=== PATIENT | female | born 1935 | race Hispanic/Latino ===

== ENCOUNTER 2017-03-26 12:42 | Inpatient (IN) | payer MEDICAID, MEDICARE ==
--- NOTE | 2017-03-26 13:06 | ED PDOC ---
Arrival/HPI - General Time Seen by Provider: 03/26/17 12:52 Historian: Patient - History of Present Illness Narrative History of Present Illness (Text): 03/26/17 12:54 An 82 year old female, whose past medical history includes pulmonary hypertension, CAD with stents, COPD and chronic back pain, presents to the emergency department complaining of lethargy and shortness of breath today. Patient denies any relieving or exacerbating factors. Patient denies any nausea , vomiting, diarrhea, abdominal pain, chest pain or any other complaints. Patient uses 3 L of oxygen at home. Time/Duration: Other (Today) Symptom Course: Unchanged Quality: Other Context: Home Past Medical History - Provider Review Nursing Documentation Reviewed: Yes - Infectious Disease Hx of Infectious Diseases: None - Tetanus Immunization Tetanus Immunization: Unknown - Cardiac Hx TN: Yes - Pulmonary Hx Chronic Obstructive Pulmonary Disease (COPD): Yes - Neurological Hx Neurological Disorder: Yes Hx Dizziness: Yes - HEENT Hx HEENT Disorder: Yes Hx Cataracts: Yes - Renal Hx Renal Disorder: No - Endocrine/Metabolic Hx Endocrine Disorders: No - Hematological/Oncological Hx Blood Disorders: Yes Hx Anemia: Yes - Integumentary Hx Dermatological Disorder: No - Musculoskeletal/Rheumatological Hx Arthritis: Yes - Gastrointestinal Hx Gastrointestinal Disorders: Yes Hx Diverticulitis: Yes - Genitourinary/Gynecological Hx Genitourinary Disorders: Yes Hx Incontinence: Yes - Psychiatric Hx Psychophysiologic Disorder: No Hx Anxiety: No Hx Emotional Abuse: No Hx Physical Abuse: No Hx Substance Use: No - Surgical History Hx Appendectomy: Yes Hx Cardiac Catheterization: Yes Hx Cholecystectomy: Yes Hx Coronary Stent: Yes Other/Comment: Cyst removal in ovary. Inguinal Hernia Repair. 2 inches of intestine removed - Anesthesia Hx Anesthesia Reactions: No - Suicidal Assessment Feels Threatened In Home Enviroment: No Family/Social History - Physician Review Nursing Documentation Reviewed: Yes Family/Social History: No Known Family HX Smoking Status: Current Some Days Smoker Hx Alcohol Use: No Hx Substance Use: No Hx Substance Use Treatment: No Allergies/Home Meds Allergies/Adverse Reactions: Allergies codeine Adverse Reaction (Verified 03/26/17 17:35) ITCHING hydromorphone HCl [From Dilaudid] Adverse Reaction (Verified 03/26/17 17:35) ITCHING morphine Adverse Reaction (Verified 03/26/17 17:35) ITCHING MYOCINS Adverse Reaction (Uncoded 03/26/17 17:35) ITCHING Home Medications: Home Meds Medication Instructions Recorded Confirmed Atorvastatin Calcium [Lipitor] 10 mg PO DAILY 02/09/12 03/26/17 Clopidogrel [Plavix] 75 mg PO DAILY 02/09/12 03/26/17 Ranolazine [Ranexa] 500 mg PO BID 01/21/15 03/26/17 Aspirin [Aspirin EC] 81 mg PO DAILY 01/19/16 03/26/17 Dexlansoprazole [Dexilant] 60 mg PO DAILY 01/19/16 03/26/17 tiZANidine [Zanaflex] 4 mg PO HS PRN 01/19/16 03/26/17 traMADol [Ultram] 50 mg PO TID PRN 01/19/16 03/26/17 Arformoterol [Brovana] 1 carley IH BID 03/26/17 03/26/17 Gabapentin [Neurontin] 100 mg PO BID 03/26/17 03/26/17 Gabapentin [Neurontin] 100 mg PO HS 03/26/17 03/26/17 Meclizine [Antivert] 12.5 mg PO PRN PRN 03/26/17 03/26/17 Riociguat [Adempas] 0.5 mg PO TID 03/26/17 03/26/17 Physical Exam - Physical Exam Narrative Physical Exam (Text): - Review of Systems Constitutional: Normal absent: Fatigue, Weight Change Eyes: Normal ENT: Normal Respiratory: (+) SOB absent: Cough, Sputum Cardiovascular: Normal absent: Chest pain, Palpitations, Syncope Gastrointestinal: Normal absent: Abdominal pain, Diarrhea, Nausea, Vomiting Genitourinary: Normal. absent: Dysuria, Frequency, Hematuria Musculoskeletal: Normal. absent: Arthralgias, Back Pain, Neck Pain Skin: Normal Neurological: Normal absent: Focal Weakness Endocrine: Normal Hemo/Lymphatic: Normal Psychiatric: (+) Lethargy - Physical exam Patient appears age appropriate, speaking full sentences without difficulty - Systems Exam Head: Present: Atraumatic, Normocephalic Pupils: Present: PERRL Extraocular Muscles: Present: EOMI Conjunctiva: Present: Normal Mouth: Present: Moist Mucous Membranes Neck: Present: Normal Range of Motion. No: MIDLINE TENDERNESS, Paraspinal Tenderness Respiratory/Chest: Present: Good Air Exchange, Faint expiratory wheezing, Bibasilar crackles. No: Respiratory Distress, Accessory Muscle Use, Tachypnic Cardiovascular: Present: Regular Rate and Rhythm, Normal S1, S2, Peripheral Pulses Present. No: Murmurs Abdomen: Present: Normal Bowel Sounds, No: Tenderness, Peritoneal Signs, Rebound, Guarding, Distention Back: Present: Normal Inspection. No: Midline Tenderness, Paraspinal Tenderness Upper Extremity: Present: Normal Inspection. No: Cyanosis, Edema Lower Extremity: Present: Normal Inspection. No: Edema Neurological: Present: GCS=15, Speech Normal, cranial nerves II through XII fully intact with no cerebellar abnormality, neuro-sensory fully intact. No focal neurological deficits. Skin: Present: Warm, Dry, Normal Color. No: Rashes Lymphatic: Present: OX3, NI, NC Psychiatric: Present: Alert, Oriented x 3, Normal Insight, Normal Concentration Vital Signs Reviewed: Yes Vital Signs Temp Pulse Resp BP Pulse Ox 03/26/17 17:33 114 H 23 112/76 94 L 03/26/17 16:50 113 H 21 119/52 L 94 L 03/26/17 16:37 100.6 F H 03/26/17 16:27 99.1 F 120 H 20 120/56 L 95 03/26/17 15:20 124 H 20 126/55 L 95 03/26/17 12:42 99.8 F H 101 H 20 131/48 L 95 Temperature: Febrile Blood Pressure: Hypotensive Pulse: Tachycardic Appearance: Positive for: Well-Appearing, Non-Toxic, Comfortable Pain Distress: None Mental Status: Positive for: Alert and Oriented X 3 Medical Decision Making ED Course and Treatment: 03/26/17 12:57 Impression: A 82 year old female with lethargy and shortness of breath. On exam, faint expiratory wheezing and bibasilar crackles. Differential Diagnosis included but are not limited to: CHF vs. PNA Plan: -- Chest xray -- EKG -- Labs -- Blood culture -- Urinalysis -- Duoneb -- Reassess and disposition Prior Visits: Notes and results from previous visits were reviewed. Patient had a stress test done on 12/24/16, which showed normal results. Patient had a left ventricular ejection fraction of 70%. Progress Notes: EKG shows NSR at [address]-segment elevations, normal intervals. Interpreted by me. 03/26/17 13:33 Chest X-ray read and interpreted by me, which shows no cardiomegaly, no pneumothorax, no effusions, with no changes from prior on . 03/26/17 15:[address] Page, agrees with admission to his service pt stated she has chest pain EKG with no ST-segment elevations will order asa dw Dr. Delacruz, aware of admission 03/26/17 16:37 Patient's rectal temperature is 100.6. Patient initially refused rectal temperature, then agreed. Antibiotics given. CTA pending to rule out PE because patient is persistently tachycardic. Fluid ordered. 03/26/17 18:23 [facility] CTA IMPRESSION: No large central pulmonary anulus. Cannot exclude small peripheral emboli due to patient motion. Again seen is moderate to severe diffuse emphysema. Infiltrates in the lingula and right middle lobe concerning for infection. Dictated and Authenticated by: Sudha Beebe MD - Lab Interpretations Lab Results: 03/26/17 13:15 03/26/17 13:15 Lab Results 03/26/17 13:15: Sodium 137, Potassium 4.2, Chloride 97 L, Carbon Dioxide 30, Anion Gap 14, BUN 24 H, Creatinine 1.1, Est GFR ( Amer) 58, Est GFR (Non- Af Amer) 48, Random Glucose 112 H, Calcium 9.4, Total Bilirubin 0.7, AST 16, ALT 21, Alkaline Phosphatase 62, Lactate Dehydrogenase 194 L, Total Creatine Kinase 72, Troponin I < 0.01, NT-Pro-B Natriuret Pep 456 H, Total Protein 7.0, Albumin 4.0, Globulin 3.1, Albumin/Globulin Ratio 1.3 03/26/17 13:15: PT 11.1, INR 1.03, APTT 27.5 03/26/17 13:15: WBC 13.0 H D, RBC 3.66, Hgb 11.1 L, Hct 34.6 L, MCV 94.5, MCH 30.3, MCHC 32.1, RDW 12.8, Plt Count 180, MPV 11.0, Gran % 84.3 H, Lymph % (Auto ) 8.8 L, [place] % (Auto) 6.7 H, Eos % (Auto) 0.1 L, Baso % (Auto) 0.1, Gran # 10.99 H, Lymph # 1.2, [place] # 0.9 H, Eos # 0.0, Baso # 0.01 I have reviewed the lab results: Yes - RAD Interpretation Radiology Orders: 03/26/17 13:07 CHEST PORTABLE [RAD] Stat 03/26/17 15:22 ANGIO CHEST PE PROTOCOL [CT] Stat - Medication Orders Current Medication Orders: Discontinued Medications Acetaminophen (Tylenol 325mg Tab) 975 mg PO STAT STA Stop: 03/26/17 16:39 Last Admin: 03/26/17 16:47 Dose: 975 mg Albuterol/Ipratropium (Duoneb 3 Mg/0.5 Mg (3 Ml) Ud) 3 ml IH STAT STA Stop: 03/26/17 13:08 Last Admin: 03/26/17 13:15 Dose: 3 ml Aspirin (Aspirin Chewable) 324 mg PO STAT STA Stop: 03/26/17 15:18 Last Admin: 03/26/17 15:32 Dose: 324 mg Ceftriaxone Sodium (Rocephin 1 Gram Ivpb) 1 g in 100 mls @ 200 mls/hr IV STAT STA PRN Reason: Protocol Stop: 03/26/17 14:48 Last Admin: 03/26/17 14:37 Dose: 200 mls/hr Azithromycin (Zithromax 500mg In Ns) 500 mg in 250 mls @ 167 mls/hr IVPB STAT STA PRN Reason: Protocol Stop: 03/26/17 15:48 Last Admin: 03/26/17 15:22 Dose: 167 mls/hr Sodium Chloride (Sodium Chloride 0.9%) 1,000 mls @ 1,000 mls/hr IV .Q1H STA Stop: 03/26/17 16:21 Last Admin: 03/26/17 15:58 Dose: 1,000 mls/hr Sodium Chloride (Sodium Chloride 0.9%) 1,200 mls @ 1,000 mls/hr IV .Q1H12M STA Stop: 03/26/17 17:47 Last Admin: 03/26/17 16:44 Dose: 1,000 mls/hr Iohexol (Omnipaque 350 100 Ml) Confirm Administered Dose 350 mg .ROUTE .STK-MED ONE Stop: 03/26/17 17:08 Methylprednisolone (Solu-Medrol) 125 mg IVP STAT STA Stop: 03/26/17 15:20 Last Admin: 03/26/17 15:24 Dose: 125 mg Nitroglycerin (Nitrostat Sl Tab) 0.3 mg SL STAT STA Stop: 03/26/17 15:18 Last Admin: 03/26/17 15:24 Dose: 0.3 mg - Scribe Statement The provider has reviewed the documentation as recorded by the Eileenibjens De Dios Provider Scribe Attestation: All medical record entries made by the Eileenibe were at my direction and personally dictated by me. I have reviewed the chart and agree that the record accurately reflects my personal performance of the history, physical exam, medical decision making, and the department course for this patient. I have also personally directed, reviewed, and agree with the discharge instructions and disposition. Disposition/Present on Arrival - Present on Arrival Any Indicators Present on Arrival: No History of DVT/PE: No History of Uncontrolled Diabetes: No Urinary Catheter: No History Surgical Site Infection Following: None - Disposition Have Diagnosis and Disposition been Completed?: Yes Diagnosis: Chest pain, COPD exacerbation Disposition: HOSPITALIZED Disposition Time: 15:14 Patient Plan: Admission Patient Problems: Current Active Problems Problem Status Onset COPD exacerbation Acute Chest pain Acute Condition: FAIR
[2017-03-26] MEDS ORDERED: Albuterol-Ipratrop 3 mg / 0.5 (3 ml) UD IH STA (13:07)
[2017-03-26 13:32] LABS: ALB/GLOB RATIO 1.3 (1.1-1.8); ALT/SGPT 21 U/L (7-56); AST/SGOT 16 U/L (15-39); BLOOD UREA NITROGEN 24 mg/dL (7-21); CALCIUM 9.4 mg/dL (8.4-10.5); GFR AFRICAN-AMERICAN 58; GFR NON-AFRICAN AMERICAN 48
[2017-03-26 13:38] LABS: BASO # 0.01 K/mm3 (0.0-2.0); BASO % 0.1 % (0.0-3.0); EOS % 0.1 % (1.5-5.0); GRAN # 10.99 (1.4-6.5); GRAN % 84.3 % (50.0-68.0); HEMOGLOBIN 11.1 gm/dL (12.0-16.0); LYMPH # 1.2 (1.2-3.4); LYMPH % 8.8 % (22.0-35.0); MEAN CELL VOLUME 94.5 fL (80.0-105.0); MEAN CORPUSCULAR HEMOGLOBIN 30.3 pg (25.0-35.0); MEAN CORPUSCULAR HGB CONC 32.1 g/dl (31.0-37.0); MONO # 0.9 (0.1-0.6); MONO % 6.7 % (1.0-6.0); PLATELET COUNT 180 10^3/uL (120.0-450.0); RBC 3.66 10^6/uL (3.5-6.1); RED CELL DISTRIBUTION WIDTH 12.8 % (11.5-14.5)
[2017-03-26 13:40] LABS: INR 1.03 (0.93-1.08); PARTIAL THROMBOPLASTIN TIME 27.5 Seconds (23.7-30.8); PROTHROMBIN TIME 11.1 Seconds (9.9-11.8)
[2017-03-26 13:43] LABS: B-TYPE NATRIURETIC PEPTIDE 456 pg/mL (0-450)
[2017-03-26 13:44] LABS: TROPONIN I < 0.01 ng/mL
[2017-03-26] MEDS ORDERED: cefTRIAXone 1 gm 1 G/100 ML BAG IV STA (14:19)
[2017-03-26] MEDS ORDERED: Azithromycin 500MG/NS 250ml 500 MG/250 ML BAG IVPB STA (14:19)
--- NOTE | 2017-03-26 14:38 | RAD ---
HISTORY: cough COMPARISON: 01/21/2016 FINDINGS: LUNGS: There are some emphysematous changes in the upper lobes. No focal consolidation PLEURA: No significant pleural effusion identified, no pneumothorax apparent. CARDIOVASCULAR: Normal. OSSEOUS STRUCTURES: No significant abnormalities. VISUALIZED UPPER ABDOMEN: Normal. OTHER FINDINGS: None. IMPRESSION: Emphysematous changes in the upper lobes.
[2017-03-26] MEDS ORDERED: Sodium Chloride 0.9% 1,000 ML IV STA (15:22)
[2017-03-26] MEDS ORDERED: Sodium Chloride 0.9% 1,200 ML IV STA (16:36)
[2017-03-26] MEDS ORDERED: Iohexol 350 MG/100 ML VIAL ONE (17:07)
[2017-03-26 17:24] LABS: VENOUS BLOOD GAS BASE EXCESS 1.1 mmol/L (0.0-2.0); VENOUS BLOOD GAS PO2 54 mm/Hg (30-55); VENOUS BLOOD PH 7.25 (7.32-7.43)
[2017-03-26 18:29] LABS: PH,URINE 6.5 (4.7-8.0); URINE BILIRUBIN NEGATIVE (NEGATIVE); URINE BLOOD TRACE-LYSED (NEGATIVE); URINE GLUCOSE (UA) NEGATIVE (NEGATIVE); URINE LEUKOCYTE ESTERASE NEGATIVE Leu/uL (NEGATIVE); URINE NITRATE NEGATIVE (NEGATIVE); URINE PROTEIN 30 mg/dL (<30 mg/dL)
[2017-03-26 18:31] LABS: URINE APPEARANCE CLEAR (CLEAR); URINE COLOR YELLOW (YELLOW)
[2017-03-26 18:40] LABS: URINE BACTERIA MOD (NEG)
[2017-03-26] MEDS ORDERED: Non Formulary Medication (Ranolazine [Ranexa] 500 MG) PO SCH (19:30)
--- NOTE | 2017-03-26 19:54 | CP.PCM.HP ---
<NubiaDemarcus pedraza - Last Filed: 03/26/17 19:55> History of Present Illness - History of Present Illness History of Present Illness: Internal Medicine H&P for Dr. Valentine/Dr. Page service CC: Malaise and cough x2-3 days HPI: This is an 82 yo F with PMH of CAD s/p stenting, O2-dependent COPD, pulmonary HTN, HTN, HLD, and osteoporosis who presents to the ED with generalized weakness/malaise and non-productive cough x2-3 days. Patient initially felt only malaise with subjective fevers/chills, but later developed persistent dry cough and sternal chest pain/tightness. Decreased PO intake due to lack of appetite and nausea, but is tolerating some PO food and PO fluids without emesis. Denies radiation of chest pain/tightness into neck/back/jaw/ arms. Some shortness of breath 2/2 cough, but no pain with respiration, not gasping for air. Some anxiety regarding possible pulmonary clot vs sepsis (has been hospitalized for sepsis previously). Denies focal weakness, changes in vision, changes in ambulation. PMH: as above PSH: appendectomy, partial bowel resection, ovarian cyst excision, cholecystectomy PSH: former smoker (cigarettes, 1 ppd [id number], quit approx 10 years ago), denies alcohol/illicits/IVDA FHx: non-contributory PMD: Dr. Valentine Present on Admission - Present on Admission Any Indicators Present on Admission: No History of DVT/PE: No History of Uncontrolled Diabetes: No Review of Systems - Review of Systems All systems: reviewed and no additional remarkable complaints except (as HPI) Past Patient History - Infectious Disease Hx of Infectious Diseases: None - Tetanus Immunizations Tetanus Immunization: Unknown - Past Social History Smoking Status: Current Some Days Smoker - CARDIAC Hx Heart Attack: Yes - PULMONARY Hx Chronic Obstructive Pulmonary Disease (COPD): Yes - NEUROLOGICAL Hx Neurological Disorder: Yes Hx Dizziness: Yes - HEENT Hx HEENT Problems: Yes Hx Cataracts: Yes - RENAL Hx Chronic Kidney Disease: No - ENDOCRINE/METABOLIC Hx Endocrine Disorders: No - HEMATOLOGICAL/ONCOLOGICAL Hx Blood Disorders: Yes Hx Anemia: Yes - INTEGUMENTARY Hx Dermatological Problems: No - MUSCULOSKELETAL/RHEUMATOLOGICAL Hx Arthritis: Yes - GASTROINTESTINAL Hx Gastrointestinal Disorders: Yes Hx Diverticulitis: Yes - GENITOURINARY/GYNECOLOGICAL Hx Genitourinary Disorders: Yes Hx Incontinence: Yes - PSYCHIATRIC Hx Psychophysiologic Disorder: No Hx Anxiety: No Hx Emotional Abuse: No Hx Physical Abuse: No Hx Substance Use: No - SURGICAL HISTORY Hx Appendectomy: Yes Hx Cardiac Catheterization: Yes Hx Cholecystectomy: Yes Hx Coronary Stent: Yes Other/Comment: Cyst removal in ovary. Inguinal Hernia Repair. 2 inches of intestine removed - ANESTHESIA Hx Anesthesia Reactions: No Meds Home Medications: Home Medication List Medication Instructions Recorded Confirmed Type Calcium Carbonate [Caltrate] 600 mg PO DAILY 30 Days 03/30/17 Rx Levofloxacin 750 mg PO DAILY #9 tablet 03/30/17 Rx Furosemide [Lasix] 40 mg PO DAILY #30 tab 03/31/17 Rx Prednisone See Taper PO DAILY #20 tab.ds.pk 03/31/17 Rx Allergies/Adverse Reactions: Allergies Allergy/AdvReac Type Severity Reaction Status Date / Time codeine AdvReac ITCHING Verified 03/26/17 17:35 hydromorphone HCl AdvReac ITCHING Verified 03/26/17 17:35 [From Dilaudid] morphine AdvReac ITCHING Verified 03/26/17 17:35 MYOCINS AdvReac ITCHING Uncoded 03/26/17 17:35 Physical Exam - Constitutional Appears: Well, Non-toxic, No Acute Distress, Other (Lethargic, otherwise resting comfortably in bed) - Head Exam Head Exam: ATRAUMATIC, NORMAL INSPECTION, NORMOCEPHALIC - Eye Exam Eye Exam: EOMI, Normal appearance. absent: Conjunctival injection, Scleral icterus Pupil Exam: absent: Irregular, Unequal - ENT Exam ENT Exam: Mucous Membranes Moist. absent: Mucous Membranes Dry - Neck Exam Neck exam: Negative for: Tenderness, Thyromegaly - Respiratory Exam Respiratory Exam: Decreased Breath Sounds (mild decreased breath sounds in all jiménez), Rales (mild bibasilar rales), NORMAL BREATHING PATTERN. absent: Accessory Muscle Use, Chest Wall Tenderness, Clear to Auscultation Bilateral, Rhonchi, Wheezes, Stridor - Cardiovascular Exam Cardiovascular Exam: Tachycardia, REGULAR RHYTHM, +S1, +S2. absent: Bradycardia , Clicks, Irregular Rhythm, JVD, +S4 - GI/Abdominal Exam GI & Abdominal Exam: Normal Bowel Sounds, Soft. absent: Diminished Bowel Sounds , Distended, Firm, Hyperactive Bowel Sounds, Hypoactive Bowel Sounds, Rigid, Tenderness - Extremities Exam Extremities exam: Positive for: full ROM, pedal edema (+1-2 pitting edema bilaterally, from ankles to mid-shins), tenderness (static tenderness in bilateral LE, not worsened with palpation, no focal points of tenderness), pedal pulses present. Negative for: calf tenderness, joint swelling - Neurological Exam Neurological exam: Alert, Oriented x3 - Psychiatric Exam Psychiatric exam: Normal Affect, Normal Mood - Skin Skin Exam: Dry, Intact, Normal Color, Warm Additional comments: Some waxy appearing skin along bilateral LE at site of pitting edema Results - Vital Signs Recent Vital Signs: Last Vital Signs Temp 98.6 F 03/26/17 19:30 Pulse 104 H 03/26/17 19:30 Resp 18 03/26/17 19:30 BP 111/51 L 03/26/17 19:30 Pulse Ox 95 03/26/17 19:30 - Labs Result Diagrams: 03/26/17 13:15 03/26/17 13:15 Labs: Laboratory Results - last 24 hr 03/26/17 17:15 pO2 54 VBG pH 7.25 L VBG pCO2 65.0 H VBG HCO3 29.4 H VBG Total CO2 31.5 H VBG O2 Sat (Calc) 85.9 H VBG Base Excess 1.1 VBG Potassium 3.9 Sodium 139.0 Chloride 107.0 Glucose 155 H Lactate 2.5 H FiO2 21.0 Venous Blood Potassium 3.9 Assessment & Plan - Assessment and Plan (Free Text) Assessment: This is an 82 yo F with PMH of CAD s/p stenting, O2-dependent COPD, pulmonary HTN, HTN, HLD, and osteoporosis who presents to the ED with generalized weakness/malaise and non-productive cough x2-3 days. She is being treated for pneumonia, and is being ruled out for PE. Plan: 1) Shortness of breath -Pneumonia vs PE vs COPD exacerbation vs ACS vs CHF exacerbation -CXR in ED concerning for bilateral effusion vs infiltrate, read as Emphysematous changes in the upper lobes -CTA chest ordered, pending official read, reported negative for PE but positive for pneumonia -Sinus Tachy on EKG in ED, repeat EKG in AM -Trop x1 negative, BNP 456, so less likely CHF or ACS; trending trops q8 x2 -febrile to 100.6F, WBCs 13.0 -Supplemental O2 to maintain SaO2> 88% (O2-dependent COPD) -Rocephin and Zithromax IV x1 in ED, will continue for now pending ID eval -Continue home breathing treatment regimen (Brovana, Spiriva); duonebs x1 in ED , will continue JEFFERY q6 and PRN q2 -Solumedrol 125mg IVP x1 in ED, continue with 40mg IVP q12 -PRN tylenol for fevers -Blood cultures pending, Procal ordered f/u -ID (Jaren), Cardio (Jericho), and Pulm (Brigitte) consulted, appreciate all recs 2) Hx CAD w/ stents -continue home ASA, Lipitor, Plavix 3) Pulm HTN -continue home Riociguat 4) GERD -holding home Dexilant in favor of Protonix 40mg PO BID Dispo: Inpt Telemetry, pending IV abx for pneumonia and COPD exacerbation tx, pending input from Cardio/Pulm/ID FEN: Heart-healthy consistent carb diet Access: Peripheral IV Consults: Cardio, Pulm, ID Ppx: Protonix for GI, Heparin SC for DVT Patient reviewed and discussed with attending, Dr. Page. - Date & Time Date: 03/26/17 Time: 20:49 Decision To Admit - Pt Status Changed To: Hospital Disposition Of: Inpatient Admission - Admit Certification Admit to Inpatient:: After my assessment, the patient will require hospitalization for at least two midnights. This is because of the severity of symptoms shown, intensity of services needed, and/or the medical risk in this patient being treated as an outpatient. - . Bed Request Type: Telemetry <Jose Page - Last Filed: 04/11/17 16:51> Results - Vital Signs Recent Vital Signs: Last Vital Signs Temp 97.6 F 03/31/17 16:00 Pulse 89 03/31/17 16:00 Resp 20 03/31/17 16:00 BP 133/76 03/31/17 16:00 Pulse Ox 98 03/31/17 16:00 - Labs Result Diagrams: 03/30/17 06:30 03/30/17 06:00 Attending/Attestation - Attestation I have personally seen and examined this patient.: Yes I have fully participated in the care of the patient.: Yes I have reviewed all pertinent clinical information: Yes Notes (Text): 04/11/17 16:47 Medical record note made by the resident after discussion with my direction and input after the patient was personally seen and examined by me. I have reviewed the chart and agree that the record accurately reflects by personal performance of the history, physical exam, data review, and medical decision-making, in the course for the patient. I have also personally directed the plan of care.
[2017-03-26] MEDS ORDERED: Albuterol-Ipratrop 3 mg / 0.5 (3 ml) UD IH PRN (20:38)
[2017-03-26 21:11] LABS: VENOUS BLOOD GAS BASE EXCESS -0.2 mmol/L (0.0-2.0); VENOUS BLOOD GAS PO2 177 mm/Hg (30-55); VENOUS BLOOD PH 7.32 (7.32-7.43)
[2017-03-26 22:05] VITALS: BMI 27.4
[2017-03-26] MEDS ORDERED: Pneumococcal 23-Valent Vaccine IM ONE (22:05)
[2017-03-26] MEDS: MethylPREDNISolone 40 mg Vial IVP SCH (22:49)
[2017-03-27] MEDS: Albuterol-Ipratrop 3 mg / 0.5 (3 ml) UD IH SCH ×4 (01:26→20:17)
[2017-03-27] MEDS: Pantoprazole 40 mg EC Tab PO SCH ×2 (05:03→17:46)
[2017-03-27] MEDS: Arformoterol 15 mcg/2 ml Inh Sol IH SCH ×2 (07:46→20:17)
[2017-03-27 08:08] LABS: HEMOGLOBIN 10.3 gm/dL (12.0-16.0); MEAN CORPUSCULAR HEMOGLOBIN 30.4 pg (25.0-35.0); MEAN PLATELET VOLUME 11.2 fl (7.0-11.0); PLATELET COUNT 158 10^3/uL (120.0-450.0); RBC 3.39 10^6/uL (3.5-6.1); RED CELL DISTRIBUTION WIDTH 12.8 % (11.5-14.5); WHITE BLOOD COUNT 11.2 10^3/ul (4.5-11.0)
[2017-03-27 08:23] LABS: ALB/GLOB RATIO 1.1 (1.1-1.8); ALBUMIN 3.2 g/dL (3.0-4.8); ALT/SGPT 17 U/L (7-56); AST/SGOT 16 U/L (15-39); BLOOD UREA NITROGEN 18 mg/dL (7-21); CALCIUM 8.3 mg/dL (8.4-10.5); GFR AFRICAN-AMERICAN > 60; GFR NON-AFRICAN AMERICAN > 60; MAGNESIUM 1.8 mg/dL (1.7-2.2)
[2017-03-27 08:35] LABS: TROPONIN I < 0.01 ng/mL
--- NOTE | 2017-03-27 08:36 | CARD ---
APPROVED REPORT EKG Measurement Heart [id number] <Conclusion> Normal sinus rhythm STTW changes c/w ischemia
--- NOTE | 2017-03-27 09:02 | RAD ---
HISTORY: shortness of breath, f/u COMPARISON: 03/26/2017 FINDINGS: LUNGS: Emphysematous changes are seen in the upper lobes PLEURA: There is a small right pleural effusion. CARDIOVASCULAR: Normal. OSSEOUS STRUCTURES: No significant abnormalities. VISUALIZED UPPER ABDOMEN: Normal. OTHER FINDINGS: None. IMPRESSION: No acute changes
[2017-03-27 09:20] LABS: HYPOCHROMIA 2+; LYMPHOCYTE 3 % (22.0-35.0); MONOCYTE 3 % (1.0-6.0); NEUTROPHIL 94 % (50.0-70.0); PLATELET ESTIMATE NORMAL (NORMAL)
[2017-03-27 09:21] LABS: ROULEAU 2+; TARGET CELLS 1+; TOXIC GRANULATION 2+
--- NOTE | 2017-03-27 09:25 | CARD ---
APPROVED REPORT EKG Measurement Heart [id number] <Conclusion> Sinus tachycardia Possible Left atrial enlargement RVCD NSSTW changes Prolonged QTc
--- NOTE | 2017-03-27 09:26 | CARD ---
APPROVED REPORT EKG Measurement Heart [id number] <Conclusion> Normal sinus rhythm NSSTW changes RVCD No change
[2017-03-27] MEDS: RIOCIGUAT 0.5 MG PO SCH ×3 (09:58→17:47)
[2017-03-27] MEDS: MethylPREDNISolone 40 mg Vial IVP SCH ×2 (10:00→22:16)
[2017-03-27] MEDS ORDERED: RIOCIGUAT 0.5 MG PO SCH (10:00)
[2017-03-27] MEDS: Azithromycin 500MG/NS 250ml 500 MG/250 ML BAG IVPB SCH (10:01)
[2017-03-27] MEDS: cefTRIAXone 1 gm 1 GM/100 ML BAG IVPB SCH (10:01)
[2017-03-27] MEDS: RANOLAZINE 500 MG PO SCH ×2 (10:02→17:46)
--- NOTE | 2017-03-27 11:05 | CT ---
PROCEDURE: CT Chest with contrast (Pulmonary Angiogram) HISTORY: r/o PE COMPARISON: 01/22/2016 TECHNIQUE: Axial computed tomography images were obtained of the chest in the pulmonary arterial phase of enhancement. Coronal and sagittal reformatted images were created and reviewed. Intravenous contrast dose: 100 cc of Omni 350 Radiation dose: Total exam DLP = 605 mGy-cm. This CT exam was performed using one or more of the following dose reduction techniques: Automated exposure control, adjustment of the mA and/or kV according to patient size, and/or use of iterative reconstruction technique. FINDINGS: PULMONARY ARTERIES: The main pulmonary artery is dilated measuring 4.6 cm. There is no evidence of pulmonary embolus. AORTA: No acute findings. No thoracic aortic aneurysm. LUNGS: Severe emphysematous changes are seen in both lungs. There is a small focal infiltrate in the lingular segment of the left lobe. This is seen on image 69 series 5. There is also an infiltrate in the right middle lobe image 91. PLEURAL SPACES: Unremarkable. No effusion or pneuomothorax. HEART: Unremarkable. No cardiomegaly. No significant pericardial effusion. LYMPH NODES: No lymphadenopathy. BONES, CHEST WALL: Unremarkable. No fracture or destructive lesion OTHER FINDINGS: The report concurs with the preliminary [facility] report IMPRESSION: No evidence of pulmonary embolus. Dilated main pulmonary artery. Severe emphysema. Small areas Small infiltrates in the lingular segment of the left upper lobe in the right middle lobe.
--- NOTE | 2017-03-27 11:14 | CP.PCM.CON ---
History of Present Illness - History of Present Illness History of Present Illness: 82 year old female with PMH of COPD, oxygen-dependent at home, pulmonary HTN, CAD S/P PCI, dyslipidemia, osteoporosis, S/P partial bowel resection, S/P appendectomy, S/P ovarian cyst excision, S/P cholecystectomy came in to [facility] complaining of shortness of breath at rest and on exertion and dry cough for the past 3-4 days, which started around the time of her 82th birthday, and worsened in the past 3-4 days. She complained of some chills and malaise as well. She denies having headache or dizziness, no sputum production, no chest pain, no nausea or vomiting, no sore throat, no abdominal pain, no diarrhea, no dysuria. She does not recall having specific sick contacts, but during her birthday, she had her grandchildren present and she states that one of them may have had some cough. She has not had recent travel outside of [place] in the past 3 months, not recently hospitalized and not been on antibiotics in the past 3 months. Infectious diseases consult is requested to further evaluate and manage. Review of Systems - Review of Systems All systems: reviewed and no additional remarkable complaints except (as per HPI ) Past Patient History - Infectious Disease Hx of Infectious Diseases: None - Tetanus Immunizations Tetanus Immunization: Unknown - Past Social History Smoking Status: Former Smoker - CARDIAC Hx Cardiac Disorders: Yes (CAD,PR) Hx Hypercholesterolemia: Yes - PULMONARY Hx Respiratory Disorders: Yes Hx Chronic Obstructive Pulmonary Disease (COPD): Yes Hx Pneumonia: Yes - NEUROLOGICAL Hx Neurological Disorder: Yes Hx Dizziness: Yes - HEENT Hx HEENT Problems: Yes Hx Cataracts: Yes - RENAL Hx Chronic Kidney Disease: No - ENDOCRINE/METABOLIC Hx Endocrine Disorders: No - HEMATOLOGICAL/ONCOLOGICAL Hx Blood Disorders: Yes Hx Anemia: Yes - INTEGUMENTARY Hx Dermatological Problems: No - MUSCULOSKELETAL/RHEUMATOLOGICAL Hx Musculoskeletal Disorders: Yes Hx Arthritis: Yes Hx Back Pain: Yes Hx Falls: Yes Hx Unsteady Gait: Yes - GASTROINTESTINAL Hx Gastrointestinal Disorders: Yes (INGUINAL HERNIA REPAIR) Hx Diverticulitis: Yes Hx Gall Bladder Disease: Yes (CHLOECYSTECTOOMY) - GENITOURINARY/GYNECOLOGICAL Hx Genitourinary Disorders: Yes Hx Incontinence: Yes - PSYCHIATRIC Hx Psychophysiologic Disorder: Yes (SMOKED CIGARETTES-QUIT) Hx Anxiety: No Hx Emotional Abuse: No Hx Physical Abuse: No Hx Substance Use: No - SURGICAL HISTORY Hx Surgeries: Yes (CARDIAC CATH WITH 2 HEART STENTS.) Hx Appendectomy: Yes Hx Cardiac Catheterization: Yes Hx Cholecystectomy: Yes Hx Coronary Stent: Yes (X2) Other/Comment: Cyst removal in ovary. Inguinal Hernia Repair. 2 inches of intestine removed - ANESTHESIA Hx Anesthesia Reactions: No Meds Allergies/Adverse Reactions: Allergies Allergy/AdvReac Type Severity Reaction Status Date / Time codeine AdvReac ITCHING Verified 03/26/17 17:35 hydromorphone HCl AdvReac ITCHING Verified 03/26/17 17:35 [From Dilaudid] morphine AdvReac ITCHING Verified 03/26/17 17:35 MYOCINS AdvReac ITCHING Uncoded 03/26/17 17:35 - Medications Medications: Current Medications Acetaminophen (Tylenol 325mg Tab) 650 mg PO Q4 PRN PRN Reason: Fever >100.4 F Albuterol/Ipratropium (Duoneb 3 Mg/0.5 Mg (3 Ml) Ud) 3 ml IH [id number] JEFFERY Albuterol/Ipratropium (Duoneb 3 Mg/0.5 Mg (3 Ml) Ud) 3 ml IH Q2H PRN PRN Reason: Shortness of Breath Alprazolam (Xanax) 0.25 mg PO Q8 PRN; Protocol PRN Reason: Anxiety Stop: 04/02/17 19:28 Arformoterol Tartrate (Brovana) 15 mcg IH [id number] JEFFERY Aspirin (Ecotrin) 81 mg PO DAILY JEFFERY Atorvastatin Calcium (Lipitor) 10 mg PO DAILY JEFFERY Clopidogrel Bisulfate (Plavix) 75 mg PO DAILY JEFFERY Furosemide (Lasix) 40 mg PO DAILY JEFFERY Gabapentin (Neurontin) 100 mg PO BID JEFFERY PRN Reason: Protocol Last Admin: 03/26/17 20:21 Dose: 100 mg Heparin Sodium (Porcine) (Heparin) 5,000 units SC Q12 JEFFERY PRN Reason: Protocol Last Admin: 03/26/17 22:48 Dose: 5,000 units Home Med (Home Med) 1 unit PO BID [facility] Ceftriaxone Sodium (Rocephin 1 Gram Ivpb) 1 gm in 100 mls @ 100 mls/hr IVPB DAILY JEFFERY PRN Reason: Protocol Azithromycin (Zithromax 500mg In Ns) 500 mg in 250 mls @ 167 mls/hr IVPB DAILY JEFFERY PRN Reason: Protocol Meclizine HCl (Antivert) 12.5 mg PO Q6H PRN PRN Reason: Dizziness Methylprednisolone (Solu-Medrol) 40 mg IVP Q12 JEFFERY Last Admin: 03/26/17 22:49 Dose: 40 mg Non-Formulary Medication (Riociguat [Adempas]) 0.5 mg PO TID [facility] Pantoprazole Sodium (Protonix Ec Tab) 40 mg PO 0600,1600 [facility] Tiotropium [place] (Spiriva) 18 mcg IH 1200 [facility] Tizanidine HCl (Zanaflex) 4 mg PO HS PRN PRN Reason: Pain, moderate (4-7) Tramadol HCl (Ultram) 50 mg PO TID PRN PRN Reason: Pain, moderate (4-7) Physical Exam - Constitutional Appears: Non-toxic, No Acute Distress - Head Exam Head Exam: NORMAL INSPECTION - ENT Exam ENT Exam: Mucous Membranes Moist - Neck Exam Neck exam: Negative for: Lymphadenopathy, Meningismus - Respiratory Exam Respiratory Exam: Decreased Breath Sounds - Cardiovascular Exam Cardiovascular Exam: +S1, +S2 - GI/Abdominal Exam GI & Abdominal Exam: Soft. absent: Tenderness Results - Vital Signs Recent Vital Signs: Last Vital Signs Temp 98.3 F 03/27/17 00:01 Pulse 77 03/27/17 00:01 Resp 20 03/27/17 00:01 BP 128/71 03/27/17 00:01 Pulse Ox 95 03/26/17 19:30 - Labs Result Diagrams: 03/27/17 07:30 03/27/17 07:30 Labs: Laboratory Results - last 24 hr 03/26/17 03/26/17 03/26/17 17:15 20:45 21:25 pO2 54 177 H VBG pH 7.25 L 7.32 VBG pCO2 65.0 H 51.0 VBG HCO3 29.4 H 26.3 VBG Total CO2 31.5 H 27.9 VBG O2 Sat (Calc) 85.9 H 97.8 H VBG Base Excess 1.1 -0.2 L VBG Potassium 3.9 3.5 L Sodium 139.0 137.0 Chloride 107.0 110.0 H Glucose 155 H 202 H Lactate 2.5 H 1.4 FiO2 21.0 21.0 Troponin I 0.02 D Venous Blood Potassium 3.9 3.5 L Assessment & Plan - Assessment and Plan (Free Text) Plan: Assessment systemic inflammatory response syndrome, consider due to COPD exacerbation, rule out secondary to community-acquired pneumonia COPD, oxygen-dependent at home pulmonary HTN CAD S/P PCI dyslipidemia osteoporosis S/P partial bowel resection S/P appendectomy S/P ovarian cyst excision S/P cholecystectomy Plan started patient on Rocephin and Zithromax pending blood cx, PCT; will review CXR follow up Pulmonary recommendations will monitor clinically
[2017-03-27] MEDS: Tiotropium 18 mcg Cap For Inhalation IH SCH (13:31)
--- NOTE | 2017-03-27 14:15 | CP.PCM.PN ---
<Zacarias Serna - Last Filed: 03/27/17 14:10> Subjective - Date & Time of Evaluation Date of Evaluation: 03/27/17 Time of Evaluation: 07:10 - Subjective Subjective: Zacarias Serna D.O. PGY-2, Internal Medicine, Dr. Valentine/Kaylee Service Progress Note 82 yea christelled female with PMH of CAD s/p stents, O2-dependent COPD, pulmonary HTN , HTN, HLD, and osteoporosis who presented with generalized weakness/malaise and non-productive cough x2-3 days, found to have pneumonia. Patient was seen and examined at bedside. Doing better today but still somewhat weak. No fevers, chills, productive cough, or other complaints. No overnight events. Objective - Vital Signs/Intake and Output Vital Signs (last 24 hours): Temp Pulse Resp BP Pulse Ox 97.7 F 91 H 19 111/54 L 93 L 03/27/17 12:00 03/27/17 12:00 03/27/17 12:00 03/27/17 12:00 03/27/17 06:00 Intake and Output: 03/27/17 03/27/17 06:59 18:59 Intake Total 120 120 Output Total 600 600 Balance -480 -480 - Medications Medications: Current Medications Acetaminophen (Tylenol 325mg Tab) 650 mg PO Q4 PRN PRN Reason: Fever >100.4 F Albuterol/Ipratropium (Duoneb 3 Mg/0.5 Mg (3 Ml) Ud) 3 ml IH [id number] [facility] Last Admin: 03/27/17 07:46 Dose: 3 ml Albuterol/Ipratropium (Duoneb 3 Mg/0.5 Mg (3 Ml) Ud) 3 ml IH Q2H PRN PRN Reason: Shortness of Breath Alprazolam (Xanax) 0.25 mg PO Q8 PRN; Protocol PRN Reason: Anxiety Stop: 04/02/17 19:28 Arformoterol Tartrate (Brovana) 15 mcg IH [id number] [facility] Last Admin: 03/27/17 07:46 Dose: 15 mcg Aspirin (Ecotrin) 81 mg PO DAILY [facility] Last Admin: 03/27/17 09:57 Dose: 81 mg Atorvastatin Calcium (Lipitor) 10 mg PO DAILY [facility] Last Admin: 03/27/17 09:57 Dose: 10 mg Calcium Carbonate (Caltrate) 600 mg PO DAILY [facility] Last Admin: 03/27/17 09:58 Dose: 600 mg Clopidogrel Bisulfate (Plavix) 75 mg PO DAILY [facility] Last Admin: 03/27/17 09:58 Dose: 75 mg Furosemide (Lasix) 40 mg PO DAILY [facility] Last Admin: 03/27/17 10:02 Dose: 40 mg Gabapentin (Neurontin) 100 mg PO BID JEFFERY PRN Reason: Protocol Last Admin: 03/27/17 09:58 Dose: 100 mg Heparin Sodium (Porcine) (Heparin) 5,000 units SC Q12 JEFFERY PRN Reason: Protocol Last Admin: 03/27/17 09:58 Dose: 5,000 units Home Med (Home Med) 1 unit PO BID [facility] Last Admin: 03/27/17 10:02 Dose: 1 unit Ceftriaxone Sodium (Rocephin 1 Gram Ivpb) 1 gm in 100 mls @ 100 mls/hr IVPB DAILY [facility] PRN Reason: Protocol Last Admin: 03/27/17 10:01 Dose: 100 mls/hr Azithromycin (Zithromax 500mg In Ns) 500 mg in 250 mls @ 167 mls/hr IVPB DAILY [facility] PRN Reason: Protocol Last Admin: 03/27/17 10:01 Dose: 167 mls/hr Meclizine HCl (Antivert) 12.5 mg PO Q6H PRN PRN Reason: Dizziness Methylprednisolone (Solu-Medrol) 40 mg IVP Q12 [facility] Last Admin: 03/27/17 10:00 Dose: 40 mg Non-Formulary Medication (Riociguat [Adempas]) 0.5 mg PO TID [facility] Last Admin: 03/27/17 13:31 Dose: 0.5 mg Pantoprazole Sodium (Protonix Ec Tab) 40 mg PO 0600,1600 [facility] Last Admin: 03/27/17 05:03 Dose: 40 mg Tiotropium [place] (Spiriva) 18 mcg IH 1200 [facility] Last Admin: 03/27/17 13:31 Dose: 18 mcg Tizanidine HCl (Zanaflex) 4 mg PO HS PRN PRN Reason: Pain, moderate (4-7) Tramadol HCl (Ultram) 50 mg PO TID PRN PRN Reason: Pain, moderate (4-7) Last Admin: 03/27/17 05:03 Dose: 50 mg - Labs Labs: 03/27/17 07:30 03/27/17 07:30 PT 11.1 Seconds (9.9-11.8) 03/26/17 13:15 INR 1.03 (0.93-1.08) 03/26/17 13:15 APTT 27.5 Seconds (23.7-30.8) 03/26/17 13:15 - Constitutional Appears: well nourished, well developed elderly female in NAD - Head Exam Head Exam: NCAT - Eye Exam Eye Exam: PERRL, EOMI - ENT Exam ENT Exam: Mucous Membranes Moist - Neck Exam Neck exam: soft, supple - Respiratory Exam Respiratory Exam: Decreased Breath Sounds in all jiménez but worse on left, mild bibasilar rales - Cardiovascular Exam Cardiovascular Exam: RRR, +S1, +S2. absent: Clicks, Irregular Rhythm, JVD, +S4 - GI/Abdominal Exam GI & Abdominal Exam: Normal Bowel Sounds, NT, ND, soft - Extremities Exam Extremities exam: mild +1-2 pitting edema bilaterally up to mid-shins, somewhat tender - Neurological Exam Neurological exam: Alert, Oriented x4 - Skin Skin Exam: Dry, Intact, Normal Color, Warm Assessment and Plan - Assessment and Plan (Free Text) Assessment: 82 year old female with pneumonia Plan: 1. Pneumonia in setting of COPD with severe emphysematous changes, on home O2 CT negative for PE Pulm Dr. Briggs consulted Cont nebs Cont azithro/ceftriaxone D2 Leukocytosis downtrending, afebrile Cont O2 2L NC Cont solumedrol, will taper Cont home nebs PRN tylenol for fevers Symptomatically improving 2. Hx CAD s/p stents Cardio Dr. Echavarria consulted Cont ASA and plavix and lipitor 3. Hypocalcemia with hx of osteoporosis Adjusted calcium low normal, started caltrate 4. Hx Anemia Compared to previous readings, actually improved No active bleeding Hemodynamically stable Patient was seen and examined at bedside and case was discussed at length with attending physician. <Jose Page - Last Filed: 04/11/17 16:53> Objective - Vital Signs/Intake and Output Vital Signs (last 24 hours): Temp Pulse Resp BP Pulse Ox 97.6 F 89 20 133/76 98 03/31/17 16:00 03/31/17 16:00 03/31/17 16:00 03/31/17 16:00 03/31/17 16:00 - Labs Labs: 03/30/17 06:30 03/30/17 06:00 PT 11.1 Seconds (9.9-11.8) 03/26/17 13:15 INR 1.03 (0.93-1.08) 03/26/17 13:15 APTT 27.5 Seconds (23.7-30.8) 03/26/17 13:15 Attending/Attestation - Attestation I have personally seen and examined this patient.: Yes I have fully participated in the care of the patient.: Yes I have reviewed all pertinent clinical information, including history, physical exam and plan: Yes Notes (Text): 04/11/17 16:53 Medical record note made by the resident after discussion with my direction and input after the patient was personally seen and examined by me. I have reviewed the chart and agree that the record accurately reflects by personal performance of the history, physical exam, data review, and medical decision-making, in the course for the patient. I have also personally directed the plan of care.
[2017-03-28] MEDS: Albuterol-Ipratrop 3 mg / 0.5 (3 ml) UD IH SCH ×5 (02:15→19:28)
[2017-03-28] MEDS: Pantoprazole 40 mg EC Tab PO SCH (06:41)
[2017-03-28] MEDS: Arformoterol 15 mcg/2 ml Inh Sol IH SCH ×3 (07:46→19:28)
[2017-03-28] MEDS: MethylPREDNISolone 40 mg Vial IVP SCH ×2 (09:57→23:12)
[2017-03-28] MEDS: RIOCIGUAT 0.5 MG PO SCH ×4 (09:58→17:43)
[2017-03-28] MEDS: RANOLAZINE 500 MG PO SCH ×2 (09:58→17:42)
[2017-03-28] MEDS: cefTRIAXone 1 gm 1 GM/100 ML BAG IVPB SCH (09:58)
[2017-03-28] MEDS: Azithromycin 500MG/NS 250ml 500 MG/250 ML BAG IVPB SCH (10:10)
--- NOTE | 2017-03-28 10:48 | CP.PCM.PN ---
Subjective - Date & Time of Evaluation Date of Evaluation: 03/28/17 Time of Evaluation: 10:00 - Subjective Subjective: Comfortable in bed, not in distress, still with some dyspnea on exertion, still with dry cough, no fevers overnight. Objective - Vital Signs/Intake and Output Vital Signs (last 24 hours): Temp Pulse Resp BP Pulse Ox 98.8 F 83 20 121/64 100 03/28/17 06:00 03/28/17 06:00 03/28/17 06:00 03/28/17 06:00 03/28/17 06:00 Intake and Output: 03/28/17 03/28/17 06:59 18:59 Intake Total 140 Output Total 400 Balance -260 - Medications Medications: Current Medications Acetaminophen (Tylenol 325mg Tab) 650 mg PO Q4 PRN PRN Reason: Fever >100.4 F Albuterol/Ipratropium (Duoneb 3 Mg/0.5 Mg (3 Ml) Ud) 3 ml IH [id number] [facility] Last Admin: 03/28/17 02:15 Dose: 3 ml Albuterol/Ipratropium (Duoneb 3 Mg/0.5 Mg (3 Ml) Ud) 3 ml IH Q2H PRN PRN Reason: Shortness of Breath Alprazolam (Xanax) 0.25 mg PO Q8 PRN; Protocol PRN Reason: Anxiety Stop: 04/02/17 19:28 Arformoterol Tartrate (Brovana) 15 mcg IH [id number] [facility] Last Admin: 03/27/17 20:17 Dose: Not Given Aspirin (Ecotrin) 81 mg PO DAILY [facility] Last Admin: 03/27/17 09:57 Dose: 81 mg Atorvastatin Calcium (Lipitor) 10 mg PO DAILY [facility] Last Admin: 03/27/17 09:57 Dose: 10 mg Calcium Carbonate (Caltrate) 600 mg PO DAILY [facility] Last Admin: 03/27/17 09:58 Dose: 600 mg Clopidogrel Bisulfate (Plavix) 75 mg PO DAILY [facility] Last Admin: 03/27/17 09:58 Dose: 75 mg Furosemide (Lasix) 40 mg PO DAILY [facility] Last Admin: 03/27/17 10:02 Dose: 40 mg Gabapentin (Neurontin) 100 mg PO BID [facility] PRN Reason: Protocol Last Admin: 03/27/17 17:46 Dose: 100 mg Home Med (Home Med) 1 unit PO BID [facility] Last Admin: 03/27/17 17:46 Dose: 1 unit Ceftriaxone Sodium (Rocephin 1 Gram Ivpb) 1 gm in 100 mls @ 100 mls/hr IVPB DAILY [facility] PRN Reason: Protocol Last Admin: 03/27/17 10:01 Dose: 100 mls/hr Azithromycin (Zithromax 500mg In Ns) 500 mg in 250 mls @ 167 mls/hr IVPB DAILY [facility] PRN Reason: Protocol Last Admin: 03/27/17 10:01 Dose: 167 mls/hr Meclizine HCl (Antivert) 12.5 mg PO Q6H PRN PRN Reason: Dizziness Methylprednisolone (Solu-Medrol) 40 mg IVP Q12 [facility] Last Admin: 03/27/17 22:16 Dose: 40 mg Non-Formulary Medication (Riociguat [Adempas]) 0.5 mg PO TID [facility] Last Admin: 03/27/17 17:47 Dose: 0.5 mg Pantoprazole Sodium (Protonix Ec Tab) 40 mg PO 0600,1600 [facility] Last Admin: 03/28/17 06:41 Dose: 40 mg Sodium Bicarbonate (Sodium Bicarbonate Tab) 650 mg PO Q6 [facility] Last Admin: 03/28/17 06:41 Dose: 650 mg Tiotropium [place] (Spiriva) 18 mcg IH 1200 [facility] Last Admin: 03/27/17 13:31 Dose: 18 mcg Tizanidine HCl (Zanaflex) 4 mg PO HS PRN PRN Reason: Pain, moderate (4-7) Tramadol HCl (Ultram) 50 mg PO TID PRN PRN Reason: Pain, moderate (4-7) Last Admin: 03/27/17 05:03 Dose: 50 mg - Labs Labs: 03/27/17 07:30 03/27/17 07:30 PT 11.1 Seconds (9.9-11.8) 03/26/17 13:15 INR 1.03 (0.93-1.08) 03/26/17 13:15 APTT 27.5 Seconds (23.7-30.8) 03/26/17 13:15 - Constitutional Appears: Non-toxic, No Acute Distress - Head Exam Head Exam: NORMAL INSPECTION - ENT Exam ENT Exam: Mucous Membranes Moist - Neck Exam Neck Exam: absent: Lymphadenopathy, Meningismus - Respiratory Exam Respiratory Exam: Decreased Breath Sounds - Cardiovascular Exam Cardiovascular Exam: +S1, +S2 - GI/Abdominal Exam GI & Abdominal Exam: Soft. absent: Tenderness Assessment and Plan - Assessment and Plan (Free Text) Plan: Assessment systemic inflammatory response syndrome, consider sepsis due to community- acquired pneumonia of left upper lobe and right middle lobe, on top of COPD exacerbation COPD, oxygen-dependent at home pulmonary HTN CAD S/P PCI dyslipidemia osteoporosis S/P partial bowel resection S/P appendectomy S/P ovarian cyst excision S/P cholecystectomy Plan continue Rocephin and Zithromax day 2 pending final blood cx results; PCT is 0.32; reviewed CXR follow up Pulmonary recommendations will continue to monitor clinically
[2017-03-28] MEDS: Tiotropium 18 mcg Cap For Inhalation IH SCH (12:17)
--- NOTE | 2017-03-28 12:30 | RAD ---
HISTORY: pneumonia COMPARISON: 03/27/2017 TECHNIQUE: Chest PA and lateral FINDINGS: LUNGS: No focal consolidation. Chronic interstitial changes PLEURA: No significant pleural effusion identified. No pneumothorax apparent. CARDIOVASCULAR: Normal. OSSEOUS STRUCTURES: No significant abnormalities. VISUALIZED UPPER ABDOMEN: Normal. OTHER FINDINGS: None. IMPRESSION: No focal consolidation
--- NOTE | 2017-03-28 17:26 | CP.PCM.PN ---
Subjective - Date & Time of Evaluation Date of Evaluation: 03/28/17 Time of Evaluation: 06:45 - Subjective Subjective: Williams Simmons D.O. PGY-1 - Internal Medicine Progress Note - Dr. Valentine/ Kaylee Service Patient seen and examined at bedside. Not acute overnight events reported. Patient is comfortable, though slightly SOB after walking from restroom to bed, on O2 by nasal cannula. Today, she is also complaining of lightheadedness when going from sitting to standing that lasts for <1min. She denies any CP, cough, wheeze, and says her SOB has improved. She also denies fever, chills, nausea, vomiting, diarrhea, abdominal pain. Objective - Vital Signs/Intake and Output Vital Signs (last 24 hours): Temp Pulse Resp BP Pulse Ox 97.6 F 84 19 131/64 100 03/28/17 12:00 03/28/17 12:00 03/28/17 12:00 03/28/17 12:00 03/28/17 06:00 Intake and Output: 03/28/17 03/28/17 06:59 18:59 Intake Total 280 Output Total 800 Balance -520 - Medications Medications: Current Medications Acetaminophen (Tylenol 325mg Tab) 650 mg PO Q4 PRN PRN Reason: Fever >100.4 F Albuterol/Ipratropium (Duoneb 3 Mg/0.5 Mg (3 Ml) Ud) 3 ml IH [id number] [facility] Last Admin: 03/28/17 13:10 Dose: Not Given Albuterol/Ipratropium (Duoneb 3 Mg/0.5 Mg (3 Ml) Ud) 3 ml IH Q2H PRN PRN Reason: Shortness of Breath Alprazolam (Xanax) 0.25 mg PO Q8 PRN; Protocol PRN Reason: Anxiety Stop: 04/02/17 19:28 Arformoterol Tartrate (Brovana) 15 mcg IH [id number] [facility] Last Admin: 03/28/17 08:58 Dose: 15 mcg Aspirin (Ecotrin) 81 mg PO DAILY [facility] Last Admin: 03/28/17 09:58 Dose: 81 mg Atorvastatin Calcium (Lipitor) 10 mg PO DAILY [facility] Last Admin: 03/28/17 09:57 Dose: 10 mg Budesonide (Pulmicort Respules) 0.5 mg IH BIDRESP [facility] Calcium Carbonate (Caltrate) 600 mg PO DAILY [facility] Last Admin: 03/28/17 09:56 Dose: 600 mg Clopidogrel Bisulfate (Plavix) 75 mg PO DAILY [facility] Last Admin: 03/28/17 09:56 Dose: 75 mg Furosemide (Lasix) 40 mg PO DAILY [facility] Last Admin: 03/28/17 09:59 Dose: 40 mg Gabapentin (Neurontin) 100 mg PO BID [facility] PRN Reason: Protocol Last Admin: 03/28/17 09:56 Dose: 100 mg Home Med (Home Med) 1 unit PO BID [facility] Last Admin: 03/28/17 09:58 Dose: 1 unit Ceftriaxone Sodium (Rocephin 1 Gram Ivpb) 1 gm in 100 mls @ 100 mls/hr IVPB DAILY [facility] PRN Reason: Protocol Last Admin: 03/28/17 09:58 Dose: 100 mls/hr Azithromycin (Zithromax 500mg In Ns) 500 mg in 250 mls @ 167 mls/hr IVPB DAILY [facility] PRN Reason: Protocol Last Admin: 03/28/17 10:10 Dose: 167 mls/hr Meclizine HCl (Antivert) 12.5 mg PO Q6H PRN PRN Reason: Dizziness Methylprednisolone (Solu-Medrol) 40 mg IVP Q12 [facility] Last Admin: 03/28/17 09:57 Dose: 40 mg Non-Formulary Medication (Riociguat [Adempas]) 0.5 mg PO TID [facility] Last Admin: 03/28/17 14:34 Dose: 0.5 mg Pantoprazole Sodium (Protonix Inj) 40 mg IVP Q12 [facility] Sodium Bicarbonate (Sodium Bicarbonate Tab) 650 mg PO Q6 [facility] Last Admin: 03/28/17 12:17 Dose: 650 mg Tiotropium [place] (Spiriva) 18 mcg IH 1200 [facility] Last Admin: 03/28/17 12:17 Dose: Not Given Tizanidine HCl (Zanaflex) 4 mg PO HS PRN PRN Reason: Pain, moderate (4-7) Tramadol HCl (Ultram) 50 mg PO TID PRN PRN Reason: Pain, moderate (4-7) Last Admin: 03/27/17 05:03 Dose: 50 mg - Labs Labs: 03/27/17 07:30 07/09/17 07:30 PT 11.1 Seconds (9.9-11.8) 03/26/17 13:15 INR 1.03 (0.93-1.08) 03/26/17 13:15 APTT 27.5 Seconds (23.7-30.8) 03/26/17 13:15 - Constitutional Appears: Well, Non-toxic, No Acute Distress, Chronically Ill - Head Exam Head Exam: ATRAUMATIC, NORMOCEPHALIC - Eye Exam Eye Exam: EOMI, Normal appearance - ENT Exam ENT Exam: Mucous Membranes Moist, Normal Exam - Respiratory Exam Respiratory Exam: Rales. absent: Rhonchi, Wheezes - Cardiovascular Exam Cardiovascular Exam: RRR, +S1, +S2 - GI/Abdominal Exam GI & Abdominal Exam: Soft. absent: Tenderness - Extremities Exam Extremities Exam: Normal Inspection Additional comments: R: 2+ edema to knee L: 1+ edema to mid mccartney - Neurological Exam Neurological Exam: Alert, Awake, Oriented x3 - Psychiatric Exam Psychiatric exam: Normal Affect, Normal Mood - Skin Skin Exam: Dry, Intact, Normal Color - Additional Findings Additional findings: Orthostatic BP evaluation Supine - 142/76 HR 109 Seated - 144/67 HR 113 Standing - 139/49 HR 114 Assessment and Plan - Assessment and Plan (Free Text) Assessment: 82 year old female with PMH of CAD s/p stents, O2-dependent COPD, pulmonary HTN , HTN, HLD, emphysema, and osteoporosis who is currently being treated for COPD exacerbation and superimposed pneumonia. Plan: 1. Pneumonia in setting of COPD with severe emphysematous changes, on home O2 - Patient is afebrile, WBC improving - Pulm Dr. Briggs consulted, appreciate all recs - Continue IV azithro/ceftriaxone D3, as per pulm - Continue duoneb jeffery and PRN, brovana, budesonide, spiriva - Continue O2 2L NC - Continue solumedrol, will taper - Continue PRN tylenol for fevers - Symptomatically improving, consider d/c tomorrow 2. Hx CAD s/p stents - Cardio Dr. Echavarria consulted, appreciate all recs - Continue ASA, plavix, and lipitor 3. Hypocalcemia with hx of osteoporosis - Adjusted calcium low normal, continue caltrate 4. Hx Anemia - Compared to previous readings, actually improved - No active bleeding - Hemodynamically stable 5. GERD - Patient is still having symptoms on protonix PO, normally takes dexilant at home - d/c protonix PO, start protonix IV 6. Orthostasis - Continue to push fluids, continue current management for anemia and pneumonia , and monitor - Consider IV fluid hydration vs decreasing lasix vs starting midrodine if no improvement DVT prophylaxis: patient requesting discontinuation of heparin, agreeable to SCD Patient was seen and examined at bedside and case was discussed at length with attending Dr. Valentine.
[2017-03-28] MEDS: Budesonide 0.5 mg/2 ml Inhal Susp UD IH SCH (19:28)
[2017-03-29] MEDS: Albuterol-Ipratrop 3 mg / 0.5 (3 ml) UD IH SCH ×2 (02:40→07:48)
[2017-03-29] MEDS: Budesonide 0.5 mg/2 ml Inhal Susp UD IH SCH ×2 (07:48→20:00)
[2017-03-29] MEDS: Arformoterol 15 mcg/2 ml Inh Sol IH SCH ×2 (07:48→20:00)
[2017-03-29 08:18] LABS: BASO # 0.01 K/mm3 (0.0-2.0); BASO % 0.1 % (0.0-3.0); GRAN % 91.9 % (50.0-68.0); HEMOGLOBIN 10.7 gm/dL (12.0-16.0); LYMPH # 0.5 (1.2-3.4); LYMPH % 4.1 % (22.0-35.0); MEAN CELL VOLUME 93.5 fL (80.0-105.0); MEAN CORPUSCULAR HEMOGLOBIN 30.2 pg (25.0-35.0); MEAN CORPUSCULAR HGB CONC 32.3 g/dl (31.0-37.0); MEAN PLATELET VOLUME 10.8 fl (7.0-11.0); MONO # 0.4 (0.1-0.6); MONO % 3.9 % (1.0-6.0); PLATELET COUNT 232 10^3/uL (120.0-450.0); RBC 3.54 10^6/uL (3.5-6.1); RED CELL DISTRIBUTION WIDTH 12.7 % (11.5-14.5); WHITE BLOOD COUNT 10.9 10^3/ul (4.5-11.0)
[2017-03-29 08:28] LABS: ALB/GLOB RATIO 1.4 (1.1-1.8); ALBUMIN 3.7 g/dL (3.0-4.8); CALCIUM 9.2 mg/dL (8.4-10.5)
[2017-03-29] MEDS ORDERED: MethylPREDNISolone 40 mg Vial IVP SCH (08:49)
[2017-03-29] MEDS: RANOLAZINE 500 MG PO SCH ×2 (09:25→17:55)
[2017-03-29] MEDS: cefTRIAXone 1 gm 1 GM/100 ML BAG IVPB SCH (09:28)
[2017-03-29] MEDS: Azithromycin 500MG/NS 250ml 500 MG/250 ML BAG IVPB SCH (09:30)
[2017-03-29] MEDS: RIOCIGUAT 0.5 MG PO SCH ×3 (09:32→18:03)
[2017-03-29] MEDS: MethylPREDNISolone 40 mg Vial IVP SCH ×2 (10:00→22:33)
--- NOTE | 2017-03-29 11:03 | CP.PCM.PN ---
Subjective - Date & Time of Evaluation Date of Evaluation: 03/29/17 Time of Evaluation: 10:05 - Subjective Subjective: Patient is feeling better, not in distress, breathing better, still with cough but less. Objective - Vital Signs/Intake and Output Vital Signs (last 24 hours): Temp Pulse Resp BP Pulse Ox 98.0 F 87 18 142/72 98 03/29/17 05:40 03/29/17 05:40 03/29/17 05:40 03/29/17 05:40 03/29/17 05:40 Intake and Output: 03/28/17 03/29/17 18:59 06:59 Intake Total 280 Output Total 800 Balance -520 - Medications Medications: Current Medications Acetaminophen (Tylenol 325mg Tab) 650 mg PO Q4 PRN PRN Reason: Fever >100.4 F Albuterol/Ipratropium (Duoneb 3 Mg/0.5 Mg (3 Ml) Ud) 3 ml IH [id number] [facility] Last Admin: 03/29/17 02:40 Dose: Not Given Albuterol/Ipratropium (Duoneb 3 Mg/0.5 Mg (3 Ml) Ud) 3 ml IH Q2H PRN PRN Reason: Shortness of Breath Alprazolam (Xanax) 0.25 mg PO Q8 PRN; Protocol PRN Reason: Anxiety Stop: 04/02/17 19:28 Arformoterol Tartrate (Brovana) 15 mcg IH [id number] [facility] Last Admin: 03/28/17 19:28 Dose: 15 mcg Aspirin (Ecotrin) 81 mg PO DAILY [facility] Last Admin: 03/28/17 09:58 Dose: 81 mg Atorvastatin Calcium (Lipitor) 10 mg PO DAILY [facility] Last Admin: 03/28/17 09:57 Dose: 10 mg Budesonide (Pulmicort Respules) 0.5 mg IH BIDRESP [facility] Last Admin: 03/28/17 19:28 Dose: 0.5 mg Calcium Carbonate (Caltrate) 600 mg PO DAILY [facility] Last Admin: 03/28/17 09:56 Dose: 600 mg Clopidogrel Bisulfate (Plavix) 75 mg PO DAILY [facility] Last Admin: 03/28/17 09:56 Dose: 75 mg Furosemide (Lasix) 40 mg PO DAILY [facility] Last Admin: 03/28/17 09:59 Dose: 40 mg Gabapentin (Neurontin) 100 mg PO BID JEFFERY PRN Reason: Protocol Last Admin: 03/28/17 17:42 Dose: 100 mg Home Med (Home Med) 1 unit PO BID [facility] Last Admin: 03/28/17 17:42 Dose: 1 unit Ceftriaxone Sodium (Rocephin 1 Gram Ivpb) 1 gm in 100 mls @ 100 mls/hr IVPB DAILY JEFFERY PRN Reason: Protocol Last Admin: 03/28/17 09:58 Dose: 100 mls/hr Azithromycin (Zithromax 500mg In Ns) 500 mg in 250 mls @ 167 mls/hr IVPB DAILY [facility] PRN Reason: Protocol Last Admin: 03/28/17 10:10 Dose: 167 mls/hr Meclizine HCl (Antivert) 12.5 mg PO Q6H PRN PRN Reason: Dizziness Methylprednisolone (Solu-Medrol) 40 mg IVP Q12 [facility] Last Admin: 03/28/17 23:12 Dose: 40 mg Non-Formulary Medication (Riociguat [Adempas]) 0.5 mg PO TID [facility] Last Admin: 03/28/17 17:43 Dose: 0.5 mg Pantoprazole Sodium (Protonix Inj) 40 mg IVP Q12 [facility] Last Admin: 03/28/17 22:41 Dose: 40 mg Sodium Bicarbonate (Sodium Bicarbonate Tab) 650 mg PO Q6 [facility] Last Admin: 03/29/17 05:32 Dose: 650 mg Tiotropium [place] (Spiriva) 18 mcg IH 1200 [facility] Last Admin: 03/28/17 12:17 Dose: Not Given Tizanidine HCl (Zanaflex) 4 mg PO HS PRN PRN Reason: Pain, moderate (4-7) Tramadol HCl (Ultram) 50 mg PO TID PRN PRN Reason: Pain, moderate (4-7) Last Admin: 03/27/17 05:03 Dose: 50 mg - Labs Labs: 03/27/17 07:30 03/27/17 07:30 PT 11.1 Seconds (9.9-11.8) 03/26/17 13:15 INR 1.03 (0.93-1.08) 03/26/17 13:15 APTT 27.5 Seconds (23.7-30.8) 03/26/17 13:15 - Constitutional Appears: Non-toxic, No Acute Distress - Head Exam Head Exam: NORMAL INSPECTION - ENT Exam ENT Exam: Mucous Membranes Moist - Neck Exam Neck Exam: absent: Meningismus - Respiratory Exam Respiratory Exam: Decreased Breath Sounds (crackles improving at the bases) - Cardiovascular Exam Cardiovascular Exam: +S1, +S2 - GI/Abdominal Exam GI & Abdominal Exam: Soft. absent: Tenderness Assessment and Plan - Assessment and Plan (Free Text) Plan: Assessment systemic inflammatory response syndrome, consider sepsis due to community- acquired pneumonia of left upper lobe and right middle lobe, on top of COPD exacerbation, slowly improving COPD, oxygen-dependent at home pulmonary HTN CAD S/P PCI dyslipidemia osteoporosis S/P partial bowel resection S/P appendectomy S/P ovarian cyst excision S/P cholecystectomy Plan continue Rocephin and Zithromax day 3; blood cx are negative; PCT is 0.32; reviewed CXR when ready for discharge, the patient can be switched to PO Levaquin 750 mg daily for another 3 days
[2017-03-29] MEDS: Tiotropium 18 mcg Cap For Inhalation IH SCH (12:42)
[2017-03-29] MEDS ORDERED: Ipratropium 0.02% Inhal Soln (0.5 mg/2.5 ml) UD IH PRN (13:00)
[2017-03-29] MEDS: Ipratropium 0.02% Inhal Soln (0.5 mg/2.5 ml) UD IH SCH (13:18)
--- NOTE | 2017-03-29 13:53 | CP.PCM.PN ---
Addendum entered and electronically signed by Zacarias Serna DO 03/29/17 15:17: Patient was seen and examined and case was discussed at length with Dr. Castro. Patient symptomatically improving, some discomfort and anxiety likely from albuterol so will only do atrovent, TCU eval placed for deconditioning. Zacarias Serna D.O. PGY-2 Original Note: <WILLIAMS CASTRO - Last Filed: 03/29/17 13:41> Subjective - Date & Time of Evaluation Date of Evaluation: 03/29/17 Time of Evaluation: 06:45 - Subjective Subjective: Williams Castro D.O. PGY-1 - Internal Medicine Progress Note - Dr. Valentine/ [facility] Patient seen and examined at bedside. No acute overnight events reported. Patient is comfortable, on O2 by nasal cannula, which she is also on at home. Today, she is complaining of a "swirly" feeling in her abdomen but she denies any CP, cough, wheeze, and says her SOB has improved. She feels anxious and does not feel ready to go home. She also denies fever, chills, nausea, vomiting , diarrhea, abdominal pain. Objective - Vital Signs/Intake and Output Vital Signs (last 24 hours): Temp Pulse Resp BP Pulse Ox 97.8 F 102 H 19 135/68 98 03/29/17 11:42 03/29/17 11:42 03/29/17 11:42 03/29/17 11:42 03/29/17 05:40 Intake and Output: 03/29/17 03/29/17 06:59 18:59 Intake Total 720 Output Total 200 Balance 520 - Medications Medications: Current Medications Acetaminophen (Tylenol 325mg Tab) 650 mg PO Q4 PRN PRN Reason: Fever >100.4 F Alprazolam (Xanax) 0.25 mg PO Q8 PRN; Protocol PRN Reason: Anxiety Stop: 04/02/17 19:28 Arformoterol Tartrate (Brovana) 15 mcg IH [id number] [facility] Last Admin: 03/29/17 07:48 Dose: 15 mcg Aspirin (Ecotrin) 81 mg PO DAILY [facility] Last Admin: 03/29/17 09:24 Dose: 81 mg Atorvastatin Calcium (Lipitor) 10 mg PO DAILY [facility] Last Admin: 03/29/17 09:26 Dose: 10 mg Budesonide (Pulmicort Respules) 0.5 mg IH BIDRESP [facility] Last Admin: 03/29/17 07:48 Dose: 0.5 mg Calcium Carbonate (Caltrate) 600 mg PO DAILY [facility] Last Admin: 03/29/17 09:24 Dose: 600 mg Clopidogrel Bisulfate (Plavix) 75 mg PO DAILY [facility] Last Admin: 03/29/17 09:27 Dose: 75 mg Furosemide (Lasix) 40 mg PO DAILY [facility] Last Admin: 03/29/17 09:25 Dose: 40 mg Gabapentin (Neurontin) 100 mg PO BID [facility] PRN Reason: Protocol Last Admin: 03/29/17 09:26 Dose: 100 mg Home Med (Home Med) 1 unit PO BID [facility] Last Admin: 03/29/17 09:25 Dose: 1 unit Ceftriaxone Sodium (Rocephin 1 Gram Ivpb) 1 gm in 100 mls @ 100 mls/hr IVPB DAILY [facility] PRN Reason: Protocol Last Admin: 03/29/17 09:28 Dose: 100 mls/hr Azithromycin (Zithromax 500mg In Ns) 500 mg in 250 mls @ 167 mls/hr IVPB DAILY [facility] PRN Reason: Protocol Last Admin: 03/29/17 09:30 Dose: 167 mls/hr Ipratropium [place] (Atrovent) 0.5 mg IH [id number] [facility] Last Admin: 03/29/17 13:18 Dose: 0.5 mg Ipratropium [place] (Atrovent) 0.5 mg IH Q2H PRN PRN Reason: Shortness of Breath Meclizine HCl (Antivert) 12.5 mg PO Q6H PRN PRN Reason: Dizziness Methylprednisolone (Solu-Medrol) 20 mg IVP Q12 [facility] Last Admin: 03/29/17 10:00 Dose: Not Given Non-Formulary Medication (Riociguat [Adempas]) 0.5 mg PO TID [facility] Last Admin: 03/29/17 09:32 Dose: 0.5 mg Pantoprazole Sodium (Protonix Inj) 40 mg IVP Q12 [facility] Last Admin: 03/29/17 09:27 Dose: 40 mg Sodium Bicarbonate (Sodium Bicarbonate Tab) 650 mg PO Q6 [facility] Last Admin: 03/29/17 12:37 Dose: 650 mg Tiotropium [place] (Spiriva) 18 mcg IH 1200 [facility] Last Admin: 03/29/17 12:42 Dose: 18 mcg Tizanidine HCl (Zanaflex) 4 mg PO HS PRN PRN Reason: Pain, moderate (4-7) Tramadol HCl (Ultram) 50 mg PO TID PRN PRN Reason: Pain, moderate (4-7) Last Admin: 03/27/17 05:03 Dose: 50 mg - Labs Labs: 03/29/17 07:00 03/29/17 07:00 PT 11.1 Seconds (9.9-11.8) 03/26/17 13:15 INR 1.03 (0.93-1.08) 03/26/17 13:15 APTT 27.5 Seconds (23.7-30.8) 03/26/17 13:15 - Constitutional Appears: Non-toxic, No Acute Distress, Chronically Ill - Head Exam Head Exam: ATRAUMATIC, NORMOCEPHALIC - Eye Exam Eye Exam: EOMI, Normal appearance - ENT Exam ENT Exam: Mucous Membranes Moist - Neck Exam Neck Exam: Normal Inspection - Respiratory Exam Respiratory Exam: Rales. absent: Rhonchi, Wheezes - Cardiovascular Exam Cardiovascular Exam: RRR, +S1, +S2 - GI/Abdominal Exam GI & Abdominal Exam: Soft. absent: Tenderness - Extremities Exam Extremities Exam: Pedal Edema. absent: Calf Tenderness - Neurological Exam Neurological Exam: Alert, Awake, Oriented x3 - Psychiatric Exam Psychiatric exam: Normal Affect, Normal Mood - Skin Skin Exam: Dry, Intact Assessment and Plan - Assessment and Plan (Free Text) Assessment: 82 year old female with PMH of CAD s/p stents, O2-dependent COPD, pulmonary HTN , HTN, HLD, emphysema, and osteoporosis who is currently being treated for COPD exacerbation and superimposed pneumonia. Plan: 1. Pneumonia in setting of COPD with severe emphysematous changes, on home O2 - Patient is afebrile, WBC improving - Pulm Dr. Briggs consulted, appreciate all recs - Continue IV azithro/ceftriaxone D3, as per pulm - Stop duoneb alexei and PRN and instead start atrovent, due to anxiety - Continue brovana, budesonide, spiriva - Continue O2 2L NC - Continue solumedrol, will taper - Continue PRN tylenol for fevers - Symptomatically improving, consider d/c tomorrow 2. Hx CAD s/p stents - Cardio Dr. Echavarria consulted, appreciate all recs - Continue ASA, plavix, and lipitor 3. Hypocalcemia with hx of osteoporosis - Adjusted calcium low normal, continue caltrate 4. Hx Anemia - Compared to previous readings, actually improved - No active bleeding - Hemodynamically stable 5. GERD - Symptoms controlled - Continue protonix IV 6. Orthostasis - Likely 2/2 to medication adverse effects, from multiple medications including lasix and adempas - Continue to push PO fluids, continue current management for anemia and pneumonia, and monitor DVT prophylaxis: SCD Patient was seen and examined at bedside and case was discussed at length with senior resident Dr. Seran PGY2 and attending Dr. Page. <Jose Page - Last Filed: 04/11/17 17:03> Objective - Vital Signs/Intake and Output Vital Signs (last 24 hours): Temp Pulse Resp BP Pulse Ox 97.6 F 89 20 133/76 98 03/31/17 16:00 03/31/17 16:00 03/31/17 16:00 03/31/17 16:00 03/31/17 16:00 - Labs Labs: 03/30/17 06:30 03/30/17 06:00 PT 11.1 Seconds (9.9-11.8) 03/26/17 13:15 INR 1.03 (0.93-1.08) 03/26/17 13:15 APTT 27.5 Seconds (23.7-30.8) 03/26/17 13:15 Attending/Attestation - Attestation I have personally seen and examined this patient.: Yes I have fully participated in the care of the patient.: Yes I have reviewed all pertinent clinical information, including history, physical exam and plan: Yes Notes (Text): 04/11/17 17:03 Medical record note made by the resident after discussion with my direction and input after the patient was personally seen and examined by me. I have reviewed the chart and agree that the record accurately reflects by personal performance of the history, physical exam, data review, and medical decision-making, in the course for the patient. I have also personally directed the plan of care.
[2017-03-30] MEDS: Ipratropium 0.02% Inhal Soln (0.5 mg/2.5 ml) UD IH SCH ×5 (02:00→20:39)
[2017-03-30 07:02] LABS: BASO # 0.01 K/mm3 (0.0-2.0); BASO % 0.1 % (0.0-3.0); GRAN # 8.84 (1.4-6.5); GRAN % 89.3 % (50.0-68.0); HEMOGLOBIN 9.7 gm/dL (12.0-16.0); LYMPH # 0.6 (1.2-3.4); MEAN CELL VOLUME 94.1 fL (80.0-105.0); MEAN CORPUSCULAR HEMOGLOBIN 29.9 pg (25.0-35.0); MEAN CORPUSCULAR HGB CONC 31.8 g/dl (31.0-37.0); MEAN PLATELET VOLUME 10.4 fl (7.0-11.0); MONO # 0.5 (0.1-0.6); MONO % 4.6 % (1.0-6.0); PLATELET COUNT 204 10^3/uL (120.0-450.0); RBC 3.24 10^6/uL (3.5-6.1); RED CELL DISTRIBUTION WIDTH 12.9 % (11.5-14.5); WHITE BLOOD COUNT 9.9 10^3/ul (4.5-11.0)
[2017-03-30 07:02] LABS: ALB/GLOB RATIO 1.3 (1.1-1.8); ALT/SGPT 19 U/L (7-56); AST/SGOT 15 U/L (15-39); BLOOD UREA NITROGEN 33 mg/dL (7-21); CALCIUM 8.6 mg/dL (8.4-10.5); GFR AFRICAN-AMERICAN > 60; GFR NON-AFRICAN AMERICAN 53
[2017-03-30] MEDS: Arformoterol 15 mcg/2 ml Inh Sol IH SCH ×2 (07:34→20:40)
[2017-03-30] MEDS: Budesonide 0.5 mg/2 ml Inhal Susp UD IH SCH ×2 (07:34→20:41)
[2017-03-30 08:14] VITALS: RESP 20
[2017-03-30] MEDS: MethylPREDNISolone 40 mg Vial IVP SCH ×2 (09:44→22:55)
[2017-03-30] MEDS: RANOLAZINE 500 MG PO SCH ×2 (09:45→17:46)
[2017-03-30] MEDS: Azithromycin 500MG/NS 250ml 500 MG/250 ML BAG IVPB SCH (09:50)
[2017-03-30] MEDS: cefTRIAXone 1 gm 1 GM/100 ML BAG IVPB SCH (09:50)
[2017-03-30] MEDS: RIOCIGUAT 0.5 MG PO SCH ×3 (09:52→17:47)
--- NOTE | 2017-03-30 10:47 | CP.PCM.DIS ---
Provider - Provider Date of Admission: 03/26/17 16:01 Attending physician: Neeraj Valentine MD Primary care physician: Neeraj Valentine MD Consults: Cardio: [place] Pulm: Brigitte ID: [id number] Time Spent in preparation of Discharge (in minutes): 45 Diagnosis - Discharge Diagnosis (1) Pneumonia Status: Acute Priority: High (2) COPD exacerbation Status: Acute Priority: High Hospital Course - Lab Results Lab Results: Most Recent Lab Values WBC 9.9 10^3/ul (4.5-11.0) 03/30/17 06:30 RBC 3.24 10^6/uL (3.5-6.1) L 03/30/17 06:30 Hgb 9.7 gm/dL (12.0-16.0) L 03/30/17 06:30 Hct 30.5 % (36.0-48.0) L 03/30/17 06:30 MCV 94.1 fL (80.0-105.0) 03/30/17 06:30 MCH 29.9 pg (25.0-35.0) 03/30/17 06:30 MCHC 31.8 g/dl (31.0-37.0) 03/30/17 06:30 RDW 12.9 % (11.5-14.5) 03/30/17 06:30 Plt Count 204 10^3/uL (120.0-450.0) 03/30/17 06:30 MPV 10.4 fl (7.0-11.0) 03/30/17 06:30 Gran % 89.3 % (50.0-68.0) H 03/30/17 06:30 Lymph % (Auto) 6.0 % (22.0-35.0) L 03/30/17 06:30 [place] % (Auto) 4.6 % (1.0-6.0) 03/30/17 06:30 Eos % (Auto) 0.0 % (1.5-5.0) L 03/30/17 06:30 Baso % (Auto) 0.1 % (0.0-3.0) 03/30/17 06:30 Gran # 8.84 (1.4-6.5) H 03/30/17 06:30 Lymph # 0.6 (1.2-3.4) L 03/30/17 06:30 [place] # 0.5 (0.1-0.6) 03/30/17 06:30 Eos # 0.0 (0.0-0.7) 03/30/17 06:30 Baso # 0.01 K/mm3 (0.0-2.0) 03/30/17 06:30 Neutrophils % (Manual) 94 % (50.0-70.0) H 03/27/17 07:30 Lymphocytes % (Manual) 3 % (22.0-35.0) L 03/27/17 07:30 Monocytes % (Manual) 3 % (1.0-6.0) 03/27/17 07:30 Toxic Granulation 2+ 03/27/17 07:30 Platelet Evaluation Normal (NORMAL) 03/27/17 07:30 Hypochromasia 2+ 03/27/17 07:30 Target Cells 1+ 03/27/17 07:30 Rouleaux 2+ 03/27/17 07:30 PT 11.1 Seconds (9.9-11.8) 03/26/17 13:15 INR 1.03 (0.93-1.08) 03/26/17 13:15 APTT 27.5 Seconds (23.7-30.8) 03/26/17 13:15 pO2 177 mm/Hg (30-55) H 03/26/17 20:45 VBG pH 7.32 (7.32-7.43) 03/26/17 20:45 VBG pCO2 51.0 (40-60) 03/26/17 20:45 VBG HCO3 26.3 mmol/l (21-28) 03/26/17 20:45 VBG Total CO2 27.9 mmol.L (22-28) 03/26/17 20:45 VBG O2 Sat (Calc) 97.8 % (40-65) H 03/26/17 20:45 VBG Base Excess -0.2 mmol/L (0.0-2.0) L 03/26/17 20:45 VBG Potassium 3.5 mmol/L (3.6-5.2) L 03/26/17 20:45 Sodium 137.0 mmol/L (132-148) 03/26/17 20:45 Chloride 110.0 mmol/L (98-107) H 03/26/17 20:45 Glucose 202 mg/dl (65-105) H 03/26/17 20:45 Lactate 1.4 mmol/L (0.7-2.1) 03/26/17 20:45 FiO2 21.0 % 03/26/17 20:45 Sodium 138 mmol/L (132-148) 03/30/17 06:00 Potassium 4.4 mmol/L (3.6-5.0) 03/30/17 06:00 Chloride 99 mmol/L (98-107) 03/30/17 06:00 Carbon Dioxide 31 mmol/L (21-33) 03/30/17 06:00 Anion Gap 12 (10-20) 03/30/17 06:00 BUN 33 mg/dL (7-21) H 03/30/17 06:00 Creatinine 1.0 mg/dL (0.5-1.4) 03/30/17 06:00 Est GFR ( Amer) > 60 03/30/17 06:00 Est GFR (Non-Af Amer) 53 03/30/17 06:00 Random Glucose 128 mg/dL (70-110) H 03/30/17 06:00 Calcium 8.6 mg/dL (8.4-10.5) 03/30/17 06:00 Phosphorus 2.6 mg/dL (2.5-4.5) 03/27/17 07:30 Magnesium 1.8 mg/dL (1.7-2.2) 03/27/17 07:30 Total Bilirubin 0.3 mg/dL (0.2-1.3) 03/30/17 06:00 AST 15 U/L (15-39) 03/30/17 06:00 ALT 19 U/L (7-56) 03/30/17 06:00 Alkaline Phosphatase 46 U/L (38-133) 03/30/17 06:00 Lactate Dehydrogenase 194 U/L (333-699) L 03/26/17 13:15 Total Creatine Kinase 72 U/L (35-230) 03/26/17 13:15 Troponin I < 0.01 ng/mL D 03/27/17 07:30 NT-Pro-B Natriuret Pep 456 pg/mL (0-450) H 03/26/17 13:15 Total Protein 5.3 g/dL (5.8-8.3) L 03/30/17 06:00 Albumin 3.0 g/dL (3.0-4.8) 03/30/17 06:00 Globulin 2.3 gm/dL 03/30/17 06:00 Albumin/Globulin Ratio 1.3 (1.1-1.8) 03/30/17 06:00 Procalcitonin 0.32 NG/ML (0.19-0.49) 03/26/17 21:25 Venous Blood Potassium 3.5 mmol/L (3.6-5.2) L 03/26/17 20:45 Urine Color Yellow (YELLOW) 03/26/17 14:20 Urine Appearance Clear (CLEAR) 03/26/17 14:20 Urine pH 6.5 (4.7-8.0) 03/26/17 14:20 Ur Specific [place] 1.020 (1.005-1.035) 03/26/17 14:20 Urine Protein 30 mg/dL (<30 mg/dL) H 03/26/17 14:20 Urine Glucose (UA) Negative mg/dL (NEGATIVE) 03/26/17 14:20 Urine Ketones Negative mg/dL (NEGATIVE) 03/26/17 14:20 Urine Blood Trace-lysed (NEGATIVE) H 03/26/17 14:20 Urine Nitrate Negative (NEGATIVE) 03/26/17 14:20 Urine Bilirubin Negative (NEGATIVE) 03/26/17 14:20 Urine Urobilinogen 1.0 E.U./dL (<1 E.U./dL) H 03/26/17 14:20 Ur Leukocyte Esterase Negative Livan/uL (NEGATIVE) 03/26/17 14:20 Urine RBC 1 - 3 /hpf (0-2) 03/26/17 14:20 Urine WBC 2 - 5 /hpf (0-6) 03/26/17 14:20 Ur Epithelial Cells 4 - 5 /hpf (0-5) 03/26/17 14:20 Urine Bacteria Mod (NEG) 03/26/17 14:20 - Hospital Course Hospital Course: 82 year old female with PMH of CAD s/p stents, O2-dependent COPD, pulmonary HTN , HTN, HLD, emphysema, and osteoporosis who presented to [facility] for malaise and dry cough for 3-4 days. She was febrile in the ED with a WBC count of 13.0k. CXR in the ED was read as emphysematous changes in upper lobes, and CTA of the chest was negative for PE and positive for pneumonia. EKG was significant for only sinus tachycardia, troponins were repeatedly negative, and BNP was 456. She was started on Rocephin and Zithromax IV, which was later continued by ID. She was also started on O2 by nasal cannula, her home breathing treatment regimen, in addition to scheduled and PRN Duoneb, and solumedrol 125mg IVP x1 in ED and 40mg IVP Q12H. Procalcitonin and blood cultures were ordered, which continued to show no growth after 3 days. The following day, procalcitonin came back 0.32 and troponins remained negative, repeat CXR and EKG were unchanged. Her cough and SOB improved on the antibiotics, steroids, and breathing treatments, fevers improved, and leukocytosis was downtrending. Hypocalcemia emerged on her labs and she was started on PO calcium supplement. On day 3 of the hospitalization, patient was feeling well without any particular complaints , though she still appeared to have some difficulty moving around her room. She also requested to be taken off of heparin and switched to SCDs for DVT prophylaxis, which was done. Pulmonology recommended one more day of IV antibiotics and repeat CXR the following day. On day 4, her CXR appeared slightly improved. The patient was breathing easier, but complained of a vague anxious feeling. This was presumed due to the albuterol in the Duoneb, so she was switched to atrovent. She also spoke to her [facility] who came to visit her which calmed her. Yesterday, her anxiety had improved, and she felt well, but clinically, appeared deconditioned, and she agreed to [facility] placement or outpatient PT. She was ready for discharge to [facility], but towards the end of the day, still hadn't been approved by her insurance for [facility] placement. She remained on the IV antibiotics, steroids, and breathing treatments overnight. Today, she feels well without any complaints and feels as though she is ready to go home. No acute overnight events reported. She denies any CP, SOB, cough, wheeze, vertigo, nausea, vomiting, diarrhea, constipation, fevers or chills. Medications were discussed and she was encouraged to follow up in Dr. Page's office next week. All questions were answered to patient's satisfaction, and she was discharged to home with prescriptions for PO antibiotics, 10 day prednisone taper, and an order for outpatient PT. Discharge Exam - Head Exam Head Exam: ATRAUMATIC, NORMOCEPHALIC - Eye Exam Eye Exam: EOMI, Normal appearance - ENT Exam ENT Exam: Mucous Membranes Moist - Respiratory Exam Respiratory Exam: Rales. absent: Rhonchi, Wheezes, Respiratory Distress Additional comments: rales improved since previous exam, chronic emphysema. On O2 by nasal cannula - Cardiovascular Exam Cardiovascular Exam: RRR, +S1, +S2 - GI/Abdominal Exam GI & Abdominal Exam: Normal Bowel Sounds, Soft. absent: Tenderness - Extremities Exam Extremities exam: normal inspection Additional comments: Edema improved. Currently wearing stockings - Back Exam Back exam: NORMAL INSPECTION - Neurological Exam Neurological exam: Alert, Oriented x3 - Psychiatric Exam Psychiatric exam: Normal Affect, Normal Mood - Skin Skin Exam: Dry, Intact, Normal Color Discharge Plan - Discharge Medications Prescriptions: Calcium Carbonate [Caltrate] 600 mg PO DAILY 30 Days Furosemide [Lasix] 40 mg PO DAILY #30 tab Levofloxacin 750 mg PO DAILY #9 tablet Prednisone See Taper PO DAILY #20 tab.ds.pk - Follow Up Plan Condition: FAIR Disposition: HOME/ ROUTINE Instructions: Viral Pneumonia (DC), COPD (Chronic Obstructive Pulmonary Disease ) (DC) Additional Instructions: 1. Take all medications as prescribed, including Levofloxacin and prednisone taper, prescriptions sent to [facility] pharmacy. 2. To avoid dizziness or falls due to lightheadedness, always take your time changing positions from lying down to sitting and/or standing. 3. Follow up with PMD next week 4. For any new or worsening symptoms or concerns, contact PMD immediately or return to ER Referrals: Neeraj Valentine MD [Primary Care Provider] -
--- NOTE | 2017-03-30 12:05 | CP.PCM.PN ---
Subjective - Date & Time of Evaluation Date of Evaluation: 03/30/17 Time of Evaluation: 11:20 - Subjective Subjective: Comfortable, breathing better, not in distress. Afebrile overnight. Objective - Vital Signs/Intake and Output Vital Signs (last 24 hours): Temp Pulse Resp BP Pulse Ox 98.4 F 77 20 130/67 96 03/30/17 08:13 03/30/17 08:13 03/30/17 08:13 03/30/17 08:13 03/30/17 08:13 Intake and Output: 03/30/17 03/30/17 06:59 18:59 Intake Total 420 Balance 420 - Medications Medications: Current Medications Acetaminophen (Tylenol 325mg Tab) 650 mg PO Q4 PRN PRN Reason: Fever >100.4 F Alprazolam (Xanax) 0.25 mg PO Q8 PRN; Protocol PRN Reason: Anxiety Stop: 04/02/17 19:28 Arformoterol Tartrate (Brovana) 15 mcg IH [id number] [facility] Last Admin: 03/30/17 07:34 Dose: 15 mcg Aspirin (Ecotrin) 81 mg PO DAILY [facility] Last Admin: 03/29/17 09:24 Dose: 81 mg Atorvastatin Calcium (Lipitor) 10 mg PO DAILY [facility] Last Admin: 03/29/17 09:26 Dose: 10 mg Budesonide (Pulmicort Respules) 0.5 mg IH BIDRESP [facility] Last Admin: 03/30/17 07:34 Dose: 0.5 mg Calcium Carbonate (Caltrate) 600 mg PO DAILY [facility] Last Admin: 03/29/17 09:24 Dose: 600 mg Clopidogrel Bisulfate (Plavix) 75 mg PO DAILY [facility] Last Admin: 03/29/17 09:27 Dose: 75 mg Furosemide (Lasix) 40 mg PO DAILY [facility] Last Admin: 03/29/17 09:25 Dose: 40 mg Gabapentin (Neurontin) 100 mg PO BID [facility] PRN Reason: Protocol Last Admin: 03/29/17 17:55 Dose: 100 mg Home Med (Home Med) 1 unit PO BID [facility] Last Admin: 03/29/17 17:55 Dose: 1 unit Ceftriaxone Sodium (Rocephin 1 Gram Ivpb) 1 gm in 100 mls @ 100 mls/hr IVPB DAILY [facility] PRN Reason: Protocol Last Admin: 07/11/17 09:28 Dose: 100 mls/hr Azithromycin (Zithromax 500mg In Ns) 500 mg in 250 mls @ 167 mls/hr IVPB DAILY [facility] PRN Reason: Protocol Last Admin: 03/29/17 09:30 Dose: 167 mls/hr Ipratropium [place] (Atrovent) 0.5 mg IH [id number] [facility] Last Admin: 03/30/17 07:34 Dose: 0.5 mg Ipratropium [place] (Atrovent) 0.5 mg IH Q2H PRN PRN Reason: Shortness of Breath Meclizine HCl (Antivert) 12.5 mg PO Q6H PRN PRN Reason: Dizziness Methylprednisolone (Solu-Medrol) 20 mg IVP Q12 [facility] Last Admin: 03/29/17 22:33 Dose: 20 mg Non-Formulary Medication (Riociguat [Adempas]) 0.5 mg PO TID [facility] Last Admin: 03/29/17 18:03 Dose: Not Given Pantoprazole Sodium (Protonix Inj) 40 mg IVP Q12 [facility] Last Admin: 03/29/17 22:07 Dose: 40 mg Sodium Bicarbonate (Sodium Bicarbonate Tab) 650 mg PO Q6 [facility] Last Admin: 03/30/17 06:21 Dose: 650 mg Tiotropium [place] (Spiriva) 18 mcg IH 1200 [facility] Last Admin: 03/29/17 12:42 Dose: 18 mcg Tizanidine HCl (Zanaflex) 4 mg PO HS PRN PRN Reason: Pain, moderate (4-7) Tramadol HCl (Ultram) 50 mg PO TID PRN PRN Reason: Pain, moderate (4-7) Last Admin: 03/27/17 05:03 Dose: 50 mg - Labs Labs: 03/30/17 06:30 03/30/17 06:00 PT 11.1 Seconds (9.9-11.8) 03/26/17 13:15 INR 1.03 (0.93-1.08) 03/26/17 13:15 APTT 27.5 Seconds (23.7-30.8) 03/26/17 13:15 - Constitutional Appears: Non-toxic, No Acute Distress - Head Exam Head Exam: NORMAL INSPECTION - Neck Exam Neck Exam: absent: Meningismus - Respiratory Exam Respiratory Exam: Decreased Breath Sounds - Cardiovascular Exam Cardiovascular Exam: +S1, +S2 - GI/Abdominal Exam GI & Abdominal Exam: Soft. absent: Tenderness Assessment and Plan - Assessment and Plan (Free Text) Plan: Assessment systemic inflammatory response syndrome, consider sepsis due to community- acquired pneumonia of left upper lobe and right middle lobe, on top of COPD exacerbation, slowly improving COPD, oxygen-dependent at home pulmonary HTN CAD S/P PCI dyslipidemia osteoporosis S/P partial bowel resection S/P appendectomy S/P ovarian cyst excision S/P cholecystectomy Plan on Rocephin and Zithromax day 4; blood cx are negative; PCT is 0.32; reviewed CXR when ready for discharge, the patient can be switched to PO Levaquin 750 mg daily for another 2-3 days
[2017-03-30] MEDS: Tiotropium 18 mcg Cap For Inhalation IH SCH (12:47)
--- NOTE | 2017-03-30 13:42 | CP.PCM.PN ---
Subjective - Date & Time of Evaluation Date of Evaluation: 03/30/17 Time of Evaluation: 13:41 - Subjective Subjective: pt needs angiocath insertion . Objective - Vital Signs/Intake and Output Vital Signs (last 24 hours): Temp Pulse Resp BP Pulse Ox 98.4 F 77 20 130/67 96 03/30/17 08:13 03/30/17 08:13 03/30/17 08:13 03/30/17 09:43 03/30/17 08:13 Intake and Output: 03/30/17 03/30/17 06:59 18:59 Intake Total 420 Balance 420 - Medications Medications: Current Medications Acetaminophen (Tylenol 325mg Tab) 650 mg PO Q4 PRN PRN Reason: Fever >100.4 F Alprazolam (Xanax) 0.25 mg PO Q8 PRN; Protocol PRN Reason: Anxiety Stop: 04/02/17 19:28 Arformoterol Tartrate (Brovana) 15 mcg IH [id number] [facility] Last Admin: 03/30/17 07:34 Dose: 15 mcg Aspirin (Ecotrin) 81 mg PO DAILY [facility] Last Admin: 03/30/17 09:43 Dose: 81 mg Atorvastatin Calcium (Lipitor) 10 mg PO DAILY [facility] Last Admin: 03/30/17 09:43 Dose: 10 mg Budesonide (Pulmicort Respules) 0.5 mg IH BIDRESP [facility] Last Admin: 03/30/17 07:34 Dose: 0.5 mg Calcium Carbonate (Caltrate) 600 mg PO DAILY [facility] Last Admin: 03/30/17 09:43 Dose: 600 mg Clopidogrel Bisulfate (Plavix) 75 mg PO DAILY [facility] Last Admin: 03/30/17 09:43 Dose: 75 mg Furosemide (Lasix) 40 mg PO DAILY [facility] Last Admin: 03/30/17 09:43 Dose: 40 mg Gabapentin (Neurontin) 100 mg PO BID [facility] PRN Reason: Protocol Last Admin: 03/30/17 09:43 Dose: 100 mg Home Med (Home Med) 1 unit PO BID [facility] Last Admin: 03/30/17 09:45 Dose: 1 unit Ceftriaxone Sodium (Rocephin 1 Gram Ivpb) 1 gm in 100 mls @ 100 mls/hr IVPB DAILY [facility] PRN Reason: Protocol Last Admin: 03/30/17 09:50 Dose: 100 mls/hr Azithromycin (Zithromax 500mg In Ns) 500 mg in 250 mls @ 167 mls/hr IVPB DAILY [facility] PRN Reason: Protocol Last Admin: 03/30/17 09:50 Dose: 167 mls/hr Ipratropium [place] (Atrovent) 0.5 mg IH [id number] [facility] Last Admin: 03/30/17 13:10 Dose: Not Given Ipratropium [place] (Atrovent) 0.5 mg IH Q2H PRN PRN Reason: Shortness of Breath Meclizine HCl (Antivert) 12.5 mg PO Q6H PRN PRN Reason: Dizziness Methylprednisolone (Solu-Medrol) 20 mg IVP Q12 [facility] Last Admin: 03/30/17 09:44 Dose: 20 mg Non-Formulary Medication (Riociguat [Adempas]) 0.5 mg PO TID [facility] Last Admin: 03/30/17 09:52 Dose: 0.5 mg Pantoprazole Sodium (Protonix Inj) 40 mg IVP Q12 [facility] Last Admin: 03/30/17 09:44 Dose: 40 mg Sodium Bicarbonate (Sodium Bicarbonate Tab) 650 mg PO Q6 [facility] Last Admin: 03/30/17 12:47 Dose: 650 mg Tiotropium [place] (Spiriva) 18 mcg IH 1200 [facility] Last Admin: 03/30/17 12:47 Dose: 18 mcg Tizanidine HCl (Zanaflex) 4 mg PO HS PRN PRN Reason: Pain, moderate (4-7) Tramadol HCl (Ultram) 50 mg PO TID PRN PRN Reason: Pain, moderate (4-7) Last Admin: 03/27/17 05:03 Dose: 50 mg - Labs Labs: 03/30/17 06:30 03/30/17 06:00 PT 11.1 Seconds (9.9-11.8) 03/26/17 13:15 INR 1.03 (0.93-1.08) 03/26/17 13:15 APTT 27.5 Seconds (23.7-30.8) 03/26/17 13:15 Assessment and Plan - Assessment and Plan (Free Text) Assessment: 24 guage angiocath inserted in left wrist area.
--- NOTE | 2017-03-30 17:04 | CP.PCM.PN ---
Addendum entered and electronically signed by Zacarias Serna DO 03/31/17 11:40: Patient was seen and examined and case was discussed with Dr. Castro. Patient pending placement, spoke with CM. Improved. Zacarias Serna D.O. PGY-2 Original Note: <WILLIAMS CASTRO - Last Filed: 03/30/17 16:58> Subjective - Date & Time of Evaluation Date of Evaluation: 03/30/17 Time of Evaluation: 06:45 - Subjective Subjective: Williams Castro D.O. PGY-1 - Internal Medicine Progress Note - Dr. Valentine/ [facility] Patient seen and examined at bedside. No acute overnight events reported. Patient is comfortable, on O2 by nasal cannula, which she is also on at home. Today she denies any CP, cough, wheeze, and says her SOB has improved. She feels ready to go home. She also denies fever, chills, nausea, vomiting, diarrhea, abdominal pain. Objective - Vital Signs/Intake and Output Vital Signs (last 24 hours): Temp Pulse Resp BP Pulse Ox 98.2 F 87 20 131/82 96 03/30/17 16:00 03/30/17 16:00 03/30/17 16:00 03/30/17 16:00 03/30/17 16:00 Intake and Output: 03/30/17 03/30/17 06:59 18:59 Intake Total 420 920 Balance 420 920 - Medications Medications: Current Medications Acetaminophen (Tylenol 325mg Tab) 650 mg PO Q4 PRN PRN Reason: Fever >100.4 F Alprazolam (Xanax) 0.25 mg PO Q8 PRN; Protocol PRN Reason: Anxiety Stop: 04/02/17 19:28 Arformoterol Tartrate (Brovana) 15 mcg IH [id number] [facility] Last Admin: 03/30/17 07:34 Dose: 15 mcg Aspirin (Ecotrin) 81 mg PO DAILY [facility] Last Admin: 03/30/17 09:43 Dose: 81 mg Atorvastatin Calcium (Lipitor) 10 mg PO DAILY [facility] Last Admin: 03/30/17 09:43 Dose: 10 mg Budesonide (Pulmicort Respules) 0.5 mg IH BIDRESP [facility] Last Admin: 03/30/17 07:34 Dose: 0.5 mg Calcium Carbonate (Caltrate) 600 mg PO DAILY [facility] Last Admin: 03/30/17 09:43 Dose: 600 mg Clopidogrel Bisulfate (Plavix) 75 mg PO DAILY [facility] Last Admin: 03/30/17 09:43 Dose: 75 mg Furosemide (Lasix) 40 mg PO DAILY [facility] Last Admin: 03/30/17 09:43 Dose: 40 mg Gabapentin (Neurontin) 100 mg PO BID [facility] PRN Reason: Protocol Last Admin: 03/30/17 09:43 Dose: 100 mg Home Med (Home Med) 1 unit PO BID [facility] Last Admin: 03/30/17 09:45 Dose: 1 unit Ceftriaxone Sodium (Rocephin 1 Gram Ivpb) 1 gm in 100 mls @ 100 mls/hr IVPB DAILY [facility] PRN Reason: Protocol Last Admin: 03/30/17 09:50 Dose: 100 mls/hr Azithromycin (Zithromax 500mg In Ns) 500 mg in 250 mls @ 167 mls/hr IVPB DAILY [facility] PRN Reason: Protocol Last Admin: 03/30/17 09:50 Dose: 167 mls/hr Ipratropium [place] (Atrovent) 0.5 mg IH [id number] [facility] Last Admin: 03/30/17 13:10 Dose: Not Given Ipratropium [place] (Atrovent) 0.5 mg IH Q2H PRN PRN Reason: Shortness of Breath Meclizine HCl (Antivert) 12.5 mg PO Q6H PRN PRN Reason: Dizziness Methylprednisolone (Solu-Medrol) 20 mg IVP Q12 [facility] Last Admin: 03/30/17 09:44 Dose: 20 mg Non-Formulary Medication (Riociguat [Adempas]) 0.5 mg PO TID [facility] Last Admin: 03/30/17 14:10 Dose: 0.5 mg Pantoprazole Sodium (Protonix Inj) 40 mg IVP Q12 [facility] Last Admin: 03/30/17 09:44 Dose: 40 mg Sodium Bicarbonate (Sodium Bicarbonate Tab) 650 mg PO Q6 [facility] Last Admin: 03/30/17 12:47 Dose: 650 mg Tiotropium [place] (Spiriva) 18 mcg IH 1200 [facility] Last Admin: 03/30/17 12:47 Dose: 18 mcg Tizanidine HCl (Zanaflex) 4 mg PO HS PRN PRN Reason: Pain, moderate (4-7) Tramadol HCl (Ultram) 50 mg PO TID PRN PRN Reason: Pain, moderate (4-7) Last Admin: 03/27/17 05:03 Dose: 50 mg - Labs Labs: 03/30/17 06:30 03/30/17 06:00 PT 11.1 Seconds (9.9-11.8) 03/26/17 13:15 INR 1.03 (0.93-1.08) 03/26/17 13:15 APTT 27.5 Seconds (23.7-30.8) 03/26/17 13:15 - Constitutional Appears: Non-toxic, Chronically Ill - Head Exam Head Exam: ATRAUMATIC, NORMOCEPHALIC - Eye Exam Eye Exam: EOMI, Normal appearance - ENT Exam ENT Exam: Mucous Membranes Moist - Neck Exam Neck Exam: Normal Inspection - Respiratory Exam Respiratory Exam: Rales. absent: Rhonchi, Wheezes Additional comments: Rales improved since previous exam; she has COPD and emphysema - Cardiovascular Exam Cardiovascular Exam: RRR, +S1, +S2 - GI/Abdominal Exam GI & Abdominal Exam: Soft, Normal Bowel Sounds - Extremities Exam Extremities Exam: Pedal Edema. absent: Calf Tenderness, Tenderness - Back Exam Back Exam: NORMAL INSPECTION - Neurological Exam Neurological Exam: Alert, Awake, Oriented x3 - Psychiatric Exam Psychiatric exam: Normal Affect, Normal Mood - Skin Skin Exam: Dry, Intact, Normal Color Assessment and Plan - Assessment and Plan (Free Text) Assessment: 82 year old female with PMH of CAD s/p stents, O2-dependent COPD, pulmonary HTN , HTN, HLD, emphysema, and osteoporosis who is currently being treated for COPD exacerbation and superimposed pneumonia. Plan: 1. Pneumonia in setting of COPD with severe emphysematous changes, on home O2 - Patient is afebrile, WBC continues to improve - Pulm Dr. Briggs consulted, appreciate all recs - Continue IV azithro/ceftriaxone D4, as per pulm - Continue brovana, budesonide, spiriva, and atrovent - Continue O2 2L NC - Continue solumedrol, will taper - Continue PRN tylenol for fevers - Symptomatically improving, will d/c today if approved for AVIVA for rehabilitation and strengthening 2. Hx CAD s/p stents - Cardio Dr. Echavarria consulted, appreciate all recs - Continue ASA, plavix, and lipitor 3. Hypocalcemia with hx of osteoporosis - Adjusted calcium low normal, continue caltrate 4. Hx Anemia - stable - Compared to previous readings, actually improved - No active bleeding - Hemodynamically stable 5. GERD - Symptoms controlled - Continue protonix IV 6. Orthostasis - Likely 2/2 to medication adverse effects, from multiple medications including lasix and adempas - Continue to push PO fluids, continue current management for anemia and pneumonia, and monitor DVT prophylaxis: SCD Patient was seen and examined at bedside and case was discussed at length with senior resident Dr. Serna PGY2 and attending Dr. Page. <Jose Page - Last Filed: 04/11/17 17:08> Objective - Vital Signs/Intake and Output Vital Signs (last 24 hours): Temp Pulse Resp BP Pulse Ox 97.6 F 89 20 133/76 98 03/31/17 16:00 03/31/17 16:00 03/31/17 16:00 03/31/17 16:00 03/31/17 16:00 - Labs Labs: 03/30/17 06:30 03/30/17 06:00 PT 11.1 Seconds (9.9-11.8) 03/26/17 13:15 INR 1.03 (0.93-1.08) 03/26/17 13:15 APTT 27.5 Seconds (23.7-30.8) 03/26/17 13:15 Attending/Attestation - Attestation I have personally seen and examined this patient.: Yes I have fully participated in the care of the patient.: Yes I have reviewed all pertinent clinical information, including history, physical exam and plan: Yes Notes (Text): 04/11/17 17:08 Medical record note made by the resident after discussion with my direction and input after the patient was personally seen and examined by me. I have reviewed the chart and agree that the record accurately reflects by personal performance of the history, physical exam, data review, and medical decision-making, in the course for the patient. I have also personally directed the plan of care.
[2017-03-31] MEDS: Ipratropium 0.02% Inhal Soln (0.5 mg/2.5 ml) UD IH SCH ×3 (01:31→14:12)
[2017-03-31] MEDS: Arformoterol 15 mcg/2 ml Inh Sol IH SCH (07:30)
[2017-03-31] MEDS: Budesonide 0.5 mg/2 ml Inhal Susp UD IH SCH (07:31)
[2017-03-31] MEDS: MethylPREDNISolone 40 mg Vial IVP SCH (09:51)
[2017-03-31] MEDS: cefTRIAXone 1 gm 1 GM/100 ML BAG IVPB SCH (09:52)
[2017-03-31] MEDS: RIOCIGUAT 0.5 MG PO SCH ×2 (09:52→14:13)
[2017-03-31] MEDS: RANOLAZINE 500 MG PO SCH (09:52)
[2017-03-31] MEDS: Azithromycin 500MG/NS 250ml 500 MG/250 ML BAG IVPB SCH (11:00)
[2017-03-31] MEDS: Tiotropium 18 mcg Cap For Inhalation IH SCH (11:27)
[2017-03-31 16:33] VITALS: BP 133/76; PULSE 89; TEMP 97.6; O2SAT 98
--- NOTE | 2017-04-01 15:35 | PQF SEPSIS ---
04/01/17 Dr. Page, ID physician documents "consider sepsis" on his notes of 03/28, 03/29, and 03/30. Was sepsis ruled out, ruled in, undetermined? If sepsis was ruled in, was this present on admission? Thank you. Clarification of your documentation is requested to better reflect the severity of illness and intensity of treatment of your patient. Indicators present [] Temp < 96.8 or > 100.4 [] WBC count > 12,000/mm3 or <000/mm3 or 10% immature neutrophils [] Heart Rate > 90 [] Respiratory Rate > 20 [] Fever or hypothermia [] Chills [] Positive blood cultures [] Hypotension [] Metabolic acidosis (Elevated lactate level, anion gap or reduced blood pH) [] Acute confusion /Altered Mental Status [] Shock [] Other: [] Location in the medical record that reflects the above clinical findings: [] Treatment Provided: [] PHYSICIAN'S RESPONSE Based on your medical judgment of the clinical indicators outlined above, are you treating this patient for a known or suspected: [] Sepsis / Septicemia Please specify organism if known [] [] SIRS (Systemic Inflammatory Response Syndrome) [] Severe Sepsis (Sepsis with Associated Organ Dysfunction) [] Fever of Unknown Origin [] Other, please indicate: [] [] If Unable to Determine, please check the box, sign and date. Present On Admission (POA) Indicator: [] Present at the time of admission [] Not present at the time of admission [] Clinically Undetermined In responding to this query, please exercise your independent professional judgment. The fact that a question is asked does not imply that any particular answer is desired or expected. Thank you for your clarification on this documentation. If you have any questions please call:[ ] * Thank you, [ ] car record clerk JOSEPH
--- NOTE | 2017-04-01 16:38 | CP.PCM.PN ---
Subjective - Date & Time of Evaluation Date of Evaluation: 03/29/17 Time of Evaluation: 11:00 - Subjective Subjective: Patient's breathing is much improved. No shortness of breath, no chest pain. Objective - Vital Signs/Intake and Output Vital Signs (last 24 hours): 03/29/17: BP is 142/72 Heart rate is in the 80's Temp Pulse Resp BP Pulse Ox 97.6 F 89 20 133/76 98 03/31/17 16:00 03/31/17 16:00 03/31/17 16:00 03/31/17 16:00 03/31/17 16:00 - Labs Labs: 03/29/17: Hemoglobin is 10.7 Chemistries: Glucose is 151 03/30/17 06:30 03/30/17 06:00 PT 11.1 Seconds (9.9-11.8) 03/26/17 13:15 INR 1.03 (0.93-1.08) 03/26/17 13:15 APTT 27.5 Seconds (23.7-30.8) 03/26/17 13:15 - Neck Exam Additional comments: No JVD - Respiratory Exam Respiratory Exam: absent: Rales - Cardiovascular Exam Cardiovascular Exam: +S1, +S2 - Extremities Exam Extremities Exam: absent: Pedal Edema Assessment and Plan (1) COPD exacerbation Status: Acute (2) Stable angina Status: Acute (3) CAD (coronary artery disease) Status: Chronic (4) Diabetes mellitus Status: Chronic - Assessment and Plan (Free Text) Plan: Given these findings, the patient's telemetry can be stopped. Patient's cardiac status is doing well. We will changer her Lasix to oral.
--- NOTE | 2017-04-01 17:05 | PN ---
DATE: 03/31/2017 SUBJECTIVE: The patient is seen earlier today in room 361. She is doing better, no fevers and no chills, less short of breath. PHYSICAL EXAMINATION: VITAL SIGNS: Temperature is 98, blood pressure is 132/60, respiratory rate is 20, heart rate of 54. HEENT: Unremarkable. NECK: Supple. LUNGS: Have decreased breath sounds. HEART: Normal S1 and S2. ABDOMEN: Soft, nontender. LABORATORY EXAMINATION: Reveals a white count of 9.9, hemoglobin of 9. BUN of 33, creatinine of 1.0. Urinalysis is noted. Microbiology reveals the blood cultures are negative. ASSESSMENT AND PLAN: An 82-year-old female, seen earlier today in room 361, bed 2 with systemic inflammatory response syndrome with sepsis and community-acquired pneumonia, left upper lobe and the right middle lobe with chronic obstructive lung disease exacerbation, improving, with chronic respiratory failure, oxygen dependent at home with pulmonary hypertension, currently on Zithromax and ceftriaxone day #5 and may switch to p.o. Levaquin upon discharge. Review of orders revealed the patient ceftriaxone requiring renewal, and the patient is also on azithromycin. We will follow with you. Jose Eastman MD
--- NOTE | 2017-04-05 18:14 | CP.PCM.CON ---
History of Present Illness - History of Present Illness History of Present Illness: Patient is a 82 year old woman, who presents with cough and shortness of breath. She was found to have pneumonia. She denies chest pain Review of Systems - Review of Systems Review of Systems: 14 point review of systems was reviewed. Dominated by dyspnea and cough. No chest pain, no exertional angina. - Cardiovascular Cardiovascular: absent: Chest Pain - Respiratory Respiratory: Cough, Dyspnea Past Patient History - Infectious Disease Hx of Infectious Diseases: None - Tetanus Immunizations Tetanus Immunization: Unknown - Past Medical History & Family History Past Medical History?: Yes Pertinent Family History: severe COPD, pulmonary hypertension, being treated on home O2. In addition, she has status post PTC and stent in past. - Past Social History Smoking Status: Currently on home O2 and has been reasonably stable for the past several months. - CARDIAC Hx Cardiac Disorders: Yes (CAD,MD) Hx Hypercholesterolemia: Yes - PULMONARY Hx Chronic Obstructive Pulmonary Disease (COPD): Yes - NEUROLOGICAL Hx Neurological Disorder: Yes Hx Dizziness: Yes - HEENT Hx HEENT Problems: Yes Hx Cataracts: Yes - RENAL Hx Chronic Kidney Disease: No - ENDOCRINE/METABOLIC Hx Endocrine Disorders: No - HEMATOLOGICAL/ONCOLOGICAL Hx Blood Disorders: Yes Hx Anemia: Yes - INTEGUMENTARY Hx Dermatological Problems: No - MUSCULOSKELETAL/RHEUMATOLOGICAL Hx Arthritis: Yes - GASTROINTESTINAL Hx Gastrointestinal Disorders: Yes (INGUINAL HERNIA REPAIR) Hx Diverticulitis: Yes Hx Gall Bladder Disease: Yes (CHLOECYSTECTOOMY) - GENITOURINARY/GYNECOLOGICAL Hx Genitourinary Disorders: Yes Hx Incontinence: Yes - PSYCHIATRIC Hx Psychophysiologic Disorder: Yes (SMOKED CIGARETTES-QUIT) Hx Anxiety: No Hx Emotional Abuse: No Hx Physical Abuse: No Hx Substance Use: No - SURGICAL HISTORY Hx Surgeries: Yes (CARDIAC CATH WITH 2 HEART STENTS.) Hx Appendectomy: Yes Hx Cardiac Catheterization: Yes Hx Cholecystectomy: Yes Hx Coronary Stent: Yes (X2) Other/Comment: Cyst removal in ovary. Inguinal Hernia Repair. 2 inches of intestine removed - ANESTHESIA Hx Anesthesia Reactions: No Meds Home Medications: Home Medication List Medication Instructions Recorded Confirmed Type Calcium Carbonate [Caltrate] 600 mg PO DAILY 30 Days 03/30/17 Rx Levofloxacin 750 mg PO DAILY #9 tablet 03/30/17 Rx Furosemide [Lasix] 40 mg PO DAILY #30 tab 03/31/17 Rx Prednisone See Taper PO DAILY #20 tab.ds.pk 03/31/17 Rx Allergies/Adverse Reactions: Allergies Allergy/AdvReac Type Severity Reaction Status Date / Time codeine AdvReac ITCHING Verified 03/26/17 17:35 hydromorphone HCl AdvReac ITCHING Verified 03/26/17 17:35 [From Dilaudid] morphine AdvReac ITCHING Verified 03/26/17 17:35 MYOCINS AdvReac ITCHING Uncoded 03/26/17 17:35 Physical Exam - Constitutional Additional comments: BP 121/64, HR in the 80s. - Neck Exam Additional comments: Negative JVD - Respiratory Exam Respiratory Exam: Decreased Breath Sounds Additional comments: decreased breath sounds bilaterally - Cardiovascular Exam Cardiovascular Exam: +S1, +S2 - Extremities Exam Additional comments: no edema Results - Vital Signs Recent Vital Signs: Last Vital Signs Temp 97.6 F 03/31/17 16:00 Pulse 89 03/31/17 16:00 Resp 20 03/31/17 16:00 BP 133/76 03/31/17 16:00 Pulse Ox 98 03/31/17 16:00 - Labs Result Diagrams: 03/30/17 06:30 03/30/17 06:00 Labs: Troponins - negative x 3 Glucose - 143 Hemoglobin - 10.3 Assessment & Plan (1) COPD exacerbation Status: Acute Priority: High (2) Stable angina Status: Acute (3) CAD (coronary artery disease) Status: Chronic (4) Diabetes mellitus Status: Chronic - Assessment and Plan (Free Text) Assessment: 1. Pneumonia 2. Severe COPD 3. Stable angina 4. CAD 5. Anemia 6. Dyspnea Plan: Given these findings, patient is on aspirin and Plavix. Will D/C the Heparin as per patient's request. In addition, being on aspirin and plavix for her coronary disease will be a reasonable drug regimen. Her troponins are all negative.
--- NOTE | 2017-04-13 16:17 | CP.PCM.PN ---
Subjective - Date & Time of Evaluation Date of Evaluation: 04/02/17 Time of Evaluation: 10:00 - Subjective Subjective: Patient notes her breathing is stable. Objective - Vital Signs/Intake and Output Vital Signs (last 24 hours): Temp Pulse Resp BP Pulse Ox 97.6 F 89 20 133/76 98 03/31/17 16:00 03/31/17 16:00 03/31/17 16:00 03/31/17 16:00 03/31/17 16:00 Blood Pressure: 130/67 Heart Rate: 70s - Labs Labs: 03/30/17 06:30 03/30/17 06:00 PT 11.1 Seconds (9.9-11.8) 03/26/17 13:15 INR 1.03 (0.93-1.08) 03/26/17 13:15 APTT 27.5 Seconds (23.7-30.8) 03/26/17 13:15 Troponin: Negative Glucose: 128 Potasium: 4.4 Hemoglobin: 9.7 - Neck Exam Additional comments: No JVD - Respiratory Exam Respiratory Exam: absent: Rales - Cardiovascular Exam Cardiovascular Exam: +S1, +S2 - Extremities Exam Extremities Exam: absent: Pedal Edema Assessment and Plan (1) COPD exacerbation Status: Acute (2) Stable angina Status: Acute (3) CAD (coronary artery disease) Status: Chronic (4) Diabetes mellitus Status: Chronic - Assessment and Plan (Free Text) Assessment: 1)Exacerbation of COPD 2)Stable angina 3)CAD 4)Anemia Plan: Given these findings, the patient's cardiac status is stable. The patient is being transferred to the TCU today.
== END 2017-03-31 17:23 | DRG 541 ==
LOC: ED 12:42 → ERH 16:01 → 2RNO 20:45 → 3RNO 03-29 16:51
PROVIDERS: ADMIT Internal Medicine; ATTEND Internal Medicine
DX: J44.1 Chronic obstructive pulmonary disease with (acute) exacerbation (principal); R65.10 Systemic inflammatory response syndrome (SIRS) of non-infectious origin without acute organ dysfunction; J18.9 Pneumonia, unspecified organism; I27.2 Other secondary pulmonary hypertension; E83.51 Hypocalcemia; Z99.81 Dependence on supplemental oxygen; R32 Unspecified urinary incontinence; I10 Essential (primary) hypertension; E78.5 Hyperlipidemia, unspecified; F41.9 Anxiety disorder, unspecified; E78.00 Pure hypercholesterolemia, unspecified; I25.10 Atherosclerotic heart disease of native coronary artery without angina pectoris; I25.2 Old myocardial infarction; J44.0 Chronic obstructive pulmonary disease with (acute) lower respiratory infection; M81.0 Age-related osteoporosis without current pathological fracture; Z79.02 Long term (current) use of antithrombotics/antiplatelets; Z79.82 Long term (current) use of aspirin; Z79.899 Other long term (current) drug therapy; Z87.01 Personal history of pneumonia (recurrent); Z87.891 Personal history of nicotine dependence; Z90.49 Acquired absence of other specified parts of digestive tract; Z95.5 Presence of coronary angioplasty implant and graft; R42 Dizziness and giddiness; H26.9 Unspecified cataract; D64.9 Anemia, unspecified; M19.90 Unspecified osteoarthritis, unspecified site; Z87.19 Personal history of other diseases of the digestive system; R07.9 Chest pain, unspecified; K21.9 Gastro-esophageal reflux disease without esophagitis; Z88.1 Allergy status to other antibiotic agents; Z88.5 Allergy status to narcotic agent; I95.1 Orthostatic hypotension; T50.995A Adverse effect of other drugs, medicaments and biological substances, initial encounter

== ENCOUNTER 2017-08-22 06:49 | Day surgery (SDC) | payer MEDICARE, MEDICAID ==
[2017-08-18 11:54] VITALS: BMI 27.5
[2017-08-22] MEDS ORDERED: Iodixanol 320 MG/ML 200 ML BOTTLE IV ONE (07:01)
[2017-08-22] MEDS ORDERED: Lidocaine 2% Inj (20ml) ONE (07:01)
[2017-08-22] MEDS ORDERED: Iohexol 350mgl/ml 50 ML ONE (07:01)
[2017-08-22] MEDS ORDERED: Iodixanol 320 MG/ML 100 ML BOTTLE IV ONE (07:01)
[2017-08-22] MEDS ORDERED: Midazolam 2 MG/2 ML VIAL ONE (07:14)
[2017-08-22 07:29] LABS: BASO # 0.02 K/mm3 (0.0-2.0); BASO % 0.3 % (0.0-3.0); EOS # 0.3 (0.0-0.7); EOS % 5.6 % (1.5-5.0); GRAN # 4.01 (1.4-6.5); HEMATOCRIT 36.9 % (36.0-48.0); LYMPH % 16.4 % (22.0-35.0); MEAN CELL VOLUME 92.9 fl (80.0-105.0); MEAN CORPUSCULAR HEMOGLOBIN 29.7 pg (25.0-35.0); MEAN PLATELET VOLUME 10.6 fl (7.0-11.0); MONO # 0.6 (0.1-0.6); MONO % 9.7 % (1.0-6.0); RED CELL DISTRIBUTION WIDTH 12.9 % (11.5-14.5); WHITE BLOOD COUNT 5.9 10^3/ul (4.5-11.0)
[2017-08-22 07:37] LABS: CALCIUM 9.7 mg/dL (8.4-10.5); POTASSIUM 4.3 mmol/L (3.6-5.0)
[2017-08-22 07:42] LABS: INR 1.12 (0.93-1.08); PARTIAL THROMBOPLASTIN TIME 26.7 Seconds (25.1-36.5)
[2017-08-22 09:31] VITALS: RESP 18; TEMP 97.8
--- NOTE | 2017-08-22 10:24 | CARDCATH ---
PROCEDURE DATE: 08/22/2017 CARDIAC CATHETERIZATION HISTORY: The patient is an 82-year-old woman with severe COPD and on home oxygen who presents with progressive exertional chest pain and shortness of breath. Because of her continued symptoms including symptoms at rest, cardiac catheterization was recommended. PROCEDURE: Right and left heart catheterization with right heart pressure measurements, coronary arteriography, as well as left ventriculogram were performed. There were no complications. CLINICAL INDICATIONS: I performed moderate sedation which included the presence of an independent trained observer that assisted in monitoring the patient's level of consciousness and physiologic status. After administration of Versed and fentanyl, my intra service time was 15 minutes. FINDINGS: 1. The right femoral artery was cannulated with 6-[place] sheath. The right femoral vein was cannulated with 7-[place] sheath. There were no complications. 2. Initial right heart pressures revealed a right atrial pressure of 4 mmHg, RV pressure was 36/6 mmHg, pulmonary artery pressures were 33/17 with a mean of 19 mmHg. 3. Initial LVEDP was 10 mmHg, there is no gradient across the aortic valve. 4. Left ventriculogram was performed in the ZAVALETA projection. The ZAV[place]ETA projection, wall motion is within normal limits. Estimated ejection fraction is 80%. 5. Her coronary arteries revealed a right dominant circulation. 6. The RCA revealed intimal irregularities including a 50% stenosis in the proximal portion without critical lesions. 7. The left main artery was unremarkable. 8. The LAD and diagonal vessels revealed intimal irregularities without critical lesions. 9. The stent in the proximal LAD and into the diagonal vessel were fully patent and provided good antegrade flow. 10. The circumflex artery and obtuse marginal branches revealed intimal irregularities without critical lesions. The patient tolerated the procedure well. Manual compression was used to close the femoral artery site. IMPRESSION: In summary: 1. The procedure revealed mild pulmonary hypertension. 2. Normal left ventricular function with an ejection fraction of 80%. 3. Patent stents in the left anterior descending and diagonal vessels. 4. A 50% stenosis in the proximal right coronary artery. PLAN: Given these findings, the patient's cardiac status is stable. There is no cardiac identifiable cause for her progressive chest pain as well as the shortness of breath. Emphasis on treating her pulmonary disease would be appropriate. She should continue on her aspirin daily. Her Plavix can be stopped. Harrison Echavarria MD
[2017-08-22] MEDS ORDERED: Sodium Chloride 0.9% 1,000 ML IV SCH (12:00)
[2017-08-22 14:11] VITALS: PULSE 73
[2017-08-22 16:15] VITALS: BP 112/60; O2SAT 94
== END 2017-08-22 16:20 | disposition home or self-care (01) ==
LOC: CATH 06:49
PROVIDERS: ATTEND Internal Medicine Cardiovascular Disease
DX: I25.10 Atherosclerotic heart disease of native coronary artery without angina pectoris (principal); I27.20 Pulmonary hypertension, unspecified; J44.9 Chronic obstructive pulmonary disease, unspecified; Z99.81 Dependence on supplemental oxygen; R94.39 Abnormal result of other cardiovascular function study
CPT/HCPCS: 36415; 80048; 80061; 85025; 85610; 85730; 86850; 86900; 93460; 99152; 99153; C1769; C1894; C2629; J1644; J2250; J3010; J7040 ×2

== ENCOUNTER 2017-09-13 17:31 | Emergency (ER) | payer MEDICARE, MEDICAID ==
[2017-09-13 17:40] VITALS: BMI 27.1
[2017-09-13] MEDS ORDERED: Morphine 4 mg/ml ISec IM STA (17:51)
[2017-09-13] MEDS ORDERED: Oxycodone/Acetaminophen 5/325 mg Tab PO STA (17:55)
--- NOTE | 2017-09-13 18:00 | ED PDOC ---
Arrival/HPI - General Chief Complaint: Finger,Hand,&Wrist Time Seen by Provider: 09/13/17 17:39 Historian: Patient - History of Present Illness Narrative History of Present Illness (Text): 09/13/17 17:56 82 y/o female, pmh including copd/cad/dm/hyperlipidemia, on aspirina dnallergic to morphine/dilaudid and codeine but not percocet (as she had it before), biba c /o lt wrist pain s/p fall. Pt. stated that she was going to the bathroom to reach for the light, tripped and landed on the lt. wrist, no LOC, no dizziness, no neck/back pain, no head injury, no abdominal or pelvic pain, no urinary symptoms, no night sweat, no dizziness, no change in vision, no other medical or psychological complaints. Past Medical History - Provider Review Nursing Documentation Reviewed: Yes - Infectious Disease Hx of Infectious Diseases: None - Tetanus Immunization Tetanus Immunization: Unknown - Reproductive Menopause: Yes - Cardiac Hx Hypertension: Yes Hx Pacemaker: No Other/Comment: pulmonary hypertension - Pulmonary Hx Chronic Obstructive Pulmonary Disease (COPD): Yes - Neurological Hx Paralysis: No - HEENT Hx HEENT Disorder: Yes Hx Cataracts: Yes - Renal Hx Renal Disorder: No - Endocrine/Metabolic Hx Endocrine Disorders: No - Hematological/Oncological Hx Blood Transfusions: Yes (2010) Hx Blood Transfusion Reaction: No - Integumentary Hx Dermatological Disorder: No - Musculoskeletal/Rheumatological Hx Musculoskeletal Disorders: Yes - Gastrointestinal Hx Gastrointestinal Disorders: Yes (INGUINAL HERNIA REPAIR) Hx Diverticulitis: Yes Hx Gall Bladder Disease: Yes (CHLOECYSTECTOOMY) - Genitourinary/Gynecological Hx Genitourinary Disorders: Yes Hx Incontinence: Yes - Psychiatric Hx Emotional Abuse: No Hx Physical Abuse: No Hx Substance Use: No - Surgical History Hx Appendectomy: Yes Hx Cardiac Catheterization: Yes Hx Cholecystectomy: Yes Hx Coronary Stent: Yes (X2) Other/Comment: Cyst removal in ovary. Inguinal Hernia Repair. 2 inches of intestine removed - Anesthesia Hx Anesthesia: Yes Hx Anesthesia Reactions: No Hx Malignant Hyperthermia: No - Suicidal Assessment Feels Threatened In Home Enviroment: No Family/Social History - Physician Review Nursing Documentation Reviewed: Yes Family/Social History: Unknown Family HX Smoking Status: Never Smoked Hx Alcohol Use: No Hx Substance Use: No Hx Substance Use Treatment: No Allergies/Home Meds Allergies/Adverse Reactions: Allergies codeine Adverse Reaction (Verified 09/13/17 17:45) ITCHING hydromorphone HCl [From Dilaudid] Adverse Reaction (Verified 09/13/17 17:45) ITCHING morphine Adverse Reaction (Verified 09/13/17 17:45) ITCHING MYOCINS Adverse Reaction (Uncoded 09/13/17 17:45) ITCHING Home Medications: Home Meds Medication Instructions Recorded Confirmed Atorvastatin Calcium [Lipitor] 10 mg PO DAILY 02/09/12 09/13/17 Clopidogrel [Plavix] 75 mg PO DAILY 02/09/12 09/13/17 Ranolazine [Ranexa] 500 mg PO BID 01/21/15 09/13/17 Aspirin [Aspirin EC] 81 mg PO DAILY 01/19/16 09/13/17 Dexlansoprazole [Dexilant] 60 mg PO DAILY 01/19/16 09/13/17 traMADol [Ultram] 50 mg PO TID PRN 01/19/16 09/13/17 Arformoterol [Brovana] 1 carley NEB BID 03/26/17 09/13/17 Riociguat [Adempas] 0.5 mg PO TID 03/26/17 09/13/17 Budesonide/Formoterol Fumarate 1 puff IH PRN PRN 08/18/17 09/13/17 [Symbicort] Levalbuterol Tartrate [Xopenex Hfa] 1 puff IH PRN PRN 08/18/17 09/13/17 Review of Systems - Review of Systems Constitutional: absent: Fatigue Eyes: absent: Vision Changes ENT: absent: Hearing Changes Respiratory: absent: SOB, Cough Cardiovascular: absent: Chest Pain Gastrointestinal: absent: Abdominal Pain, Nausea, Vomiting Musculoskeletal: Arthralgias. absent: Myalgias Skin: absent: Rash, Pruritis Neurological: absent: Headache, Dizziness Psychiatric: absent: Anxiety, Depression Physical Exam Vital Signs Temp Pulse Resp BP Pulse Ox 09/13/17 23:10 98.1 F 81 18 95 09/13/17 20:17 98.5 F 80 17 97 09/13/17 17:31 72 20 144/65 97 - Systems Exam Head: Present: Atraumatic, Normocephalic. No: Tenderness, Contusion, Swelling, Ecchymosis, Abrasion, Laceration Pupils: Present: PERRL Extroacular Muscles: Present: EOMI Conjunctiva: Present: Normal Ears: Present: NORMAL TM. No: Erythema Mouth: Present: Moist Mucous Membranes Neck: Present: Normal Range of Motion, Trachea Midline. No: MIDLINE TENDERNESS , Paraspinal Tenderness, Lymphadenopathy Respiratory/Chest: Present: Clear to Auscultation, Good Air Exchange. No: Respiratory Distress, Accessory Muscle Use, Wheezes, Decreased Breath Sounds, Rales, Retracting, Rhonchi, Tender to Palpation Cardiovascular: Present: Regular Rate and Rhythm, Normal S1, S2. No: Murmurs Abdomen: Present: Normal Bowel Sounds. No: Tenderness, Distention, Peritoneal Signs, Rebound, Guarding Back: Present: Normal Inspection, Other (Thoracic to LS spine: no midline tenderness or step off, FROM without limitation, sensation intact, motor 5/5, ) . No: Midline Tenderness, Paraspinal Tenderness, Pain with Leg Raise Upper Extremity: Present: Normal Inspection, Other (LUE: +ttp on the lt. distal radial region with mild deformity noted with skin intact, no laceration or abrasion, no scaphoid tenderness, no elbow/humerus tenderness, no hand/finger tenderness, FROM without limitation, sensation intact, motor 5/5, +radial pulse , capillay refill< 2 seconds, neurovascular intact. ). No: Cyanosis, Edema Lower Extremity: Present: Normal Inspection. No: Edema Neurological: Present: GCS=15, Speech Normal, Motor Func Grossly Intact, Gait Normal, Memory Normal Skin: Present: Warm, Dry, Normal Color. No: Rashes Psychiatric: Present: Alert, Oriented x 3, Normal Insight, Normal Concentration Medical Decision Making ED Course and Treatment: 09/13/17 17:58 -xray -zofran/percocet -Pt. refused IV and IM medications. 09/13/17 18:36 -CT head offered and recommended for the patient due to the age/brain mass atrophy/aspirin and plavix but the patient refused as she stated that she didn' t have any head injury, explained the risk including but not limited to intracranial hemorrage/skull fracture/stroke/tumor/brain mass, benefits including rule out definite intracranial hemorrage from this fall, pt. still persisting refused. Pt. has the capacity intellectually and aox4 to declined the CT. -Xrays reviewed and show: ER wet read: +distal radius and +distal styloid fractures -[place] splint applied on by me with neurovascular intact, copy of the CD film given to the patient. -Discussed with Dr. Ceballos about the patient declined CT studies, he agreed that the patient can declined. 09/13/17 20:14 -Pt. finally agreed on the CT head -CT head show no acute findings. -Pt. declined narcotic prescriptions which I reviewed she had 3 narcotic prescriptions and has tramadol at home for pain at home. -Discharge home sugartongue splint, sling, acetaminophen for pain, copy of the xray cd given, follow up with your own pmd and orthopedic within 2 days, return to the ER for any new or worsening signs or symptoms. - RAD Interpretation Radiology Orders: 09/13/17 17:51 HEAD W/O CONTRAST [CT] Stat FOREARM LEFT [RAD] Stat WRIST, LEFT 3 VIEWS [RAD] Stat Lt. wrist xray: distal radial fracture comminuted and extend to articular space , +styloid fracture Lt. forearm xray: wrist fracture, no proximal forearm fracture CT Head: COMPARISON: There are no prior studies for comparison. FINDINGS: Brain: Ventricles are normal in size. There is no midline shift. There is mild prominence of sulci and gyri. There are no intra-axial or extra-axial mass lesions or areas of hemorrhage. There are no abnormal fluid collections. Walters-white differentiation is maintained. Ventricles: See above. Bones: Cranial vault is intact. Soft tissues: unremarkable Sinuses: There is no acute sinusitis. Ears and mastoids: Middle ears and mastoids are unremarkable Orbits: Orbital contents are unremarkable. IMPRESSION: No acute intracranial abnormality Dictated By: Alisa Lux MD, MD Dictated Date/Time: 09/13/171955 Signed By: Alisa Lux MD Date Signed: 1953 Transcribed By: JOHNIE Transcribe Date/Time : 09/13/171955 Butcher Fish: Radiologist - Medication Orders Current Medication Orders: Discontinued Medications Ondansetron HCl (Zofran Tab) 4 mg PO STAT STA Stop: 09/13/17 17:56 Last Admin: 09/13/17 18:08 Dose: 4 mg Ondansetron HCl (Zofran Odt) 4 mg PO STAT STA Stop: 09/13/17 22:01 Last Admin: 09/13/17 22:01 Dose: 4 mg Oxycodone/Acetaminophen (Percocet 5/325 Mg Tab) 1 tab PO STAT STA Stop: 09/13/17 17:56 Last Admin: 09/13/17 18:08 Dose: 1 tab MAR Pain Assessment Document 09/13/17 18:08 EQ (Rec: 09/13/17 18:[address] [facility] [id number]) Pain Reassessment Is this a pain reassessment? No Sleep Is patient sleeping during reassessment? No Presence of Pain Presence of Pain Yes Pain Scale Used Pain Scale Used Numeric - PA / LUMBER DRIVER / Resident Statement MD/DO has reviewed & agrees with the documentation as recorded. Disposition/Present on Arrival - Present on Arrival Any Indicators Present on Arrival: No History of DVT/PE: No History of Uncontrolled Diabetes: No Urinary Catheter: No History of Decub. Ulcer: No History Surgical Site Infection Following: None - Disposition Have Diagnosis and Disposition been Completed?: Yes Diagnosis: Wrist fracture, Accidental fall Disposition: HOME/ ROUTINE Disposition Time: 20:14 Patient Plan: Discharge Condition: GOOD Additional Instructions: -Discharge home sugartongue splint, sling, acetaminophen for pain, copy of the xray cd given, follow up with your own pmd and orthopedic within 2 days, return to the ER for any new or worsening signs or symptoms. Prescriptions: Acetaminophen [Tylenol 325mg tab] 2 tab PO QID PRN #30 tab PRN Reason: Other Referrals: Neeraj Valentine MD [Primary Care Provider] - Follow up with primary Allan Golden MD [Staff Provider] - Follow up with primary
[2017-09-13 18:09] VITALS: BP 144/65
--- NOTE | 2017-09-13 19:56 | CT ---
EXAM: CT Head Without Intravenous Contrast EXAM DATE/TIME: 09/13/2017 5:51 PM CLINICAL HISTORY: 82 years old, female; Pain; Headache; Headache not specified; Additional info: Fall TECHNIQUE: Axial computed tomography images of the head/brain without intravenous contrast. All CT scans at this facility use one or more dose reduction techniques, viz.: automated exposure control; ma/kV adjustment per patient size (including targeted exams where dose is matched to indication; i.e. head); or iterative reconstruction technique. COMPARISON: There are no prior studies for comparison. FINDINGS: Brain: Ventricles are normal in size. There is no midline shift. There is mild prominence of sulci and gyri. There are no intra-axial or extra-axial mass lesions or areas of hemorrhage. There are no abnormal fluid collections. Walters-white differentiation is maintained. Ventricles: See above. Bones: Cranial vault is intact. Soft tissues: unremarkable Sinuses: There is no acute sinusitis. Ears and mastoids: Middle ears and mastoids are unremarkable Orbits: Orbital contents are unremarkable. IMPRESSION: No acute intracranial abnormality
[2017-09-13 23:10] VITALS: PULSE 81; TEMP 98.1; O2SAT 95
[2017-09-13 23:11] VITALS: RESP 18
--- NOTE | 2017-09-14 14:18 | RAD ---
PROCEDURE: Left Wrist Radiographs. HISTORY: lt. wrist injury and fall with pain COMPARISON: None. FINDINGS: BONES: There is a displaced comminuted fracture of the distal radius which extends into the articular surface. There is also displaced fracture of the tip of the ulnar styloid. JOINTS: Normal. No dislocation. SOFT TISSUES: Normal. OTHER FINDINGS: None. IMPRESSION: There is a displaced comminuted fracture of the distal radius which extends into the articular surface. There is also displaced fracture of the tip of the ulnar styloid.
--- NOTE | 2017-09-14 14:19 | RAD ---
PROCEDURE: Radiographs of the Left Forearm HISTORY: lt. forearm pain s/p fall COMPARISON: None available. TECHNIQUE: Frontal and lateral views obtained. FINDINGS: BONES: There is a displaced comminuted fracture of the distal radius which extends into the articular surface. There is also displaced fracture of the tip of the ulnar styloid. JOINT SPACES: Unremarkable. OTHER FINDINGS: None. IMPRESSION: Wrist fracture. No fracture of the proximal forearm
== END 2017-09-13 23:10 | disposition home or self-care (01) ==
LOC: ED 17:31
DX: S52.502A Unspecified fracture of the lower end of left radius, initial encounter for closed fracture (principal); W01.0XXA Fall on same level from slipping, tripping and stumbling without subsequent striking against object, initial encounter; E11.9 Type 2 diabetes mellitus without complications; E78.5 Hyperlipidemia, unspecified; J44.9 Chronic obstructive pulmonary disease, unspecified; I25.10 Atherosclerotic heart disease of native coronary artery without angina pectoris; I10 Essential (primary) hypertension

== ENCOUNTER 2017-09-21 16:18 | Inpatient (IN) | payer MEDICARE, MEDICAID ==
[2017-09-21] MEDS ORDERED: Morphine 2 mg/ml ISec IVP STA ×2 (16:37→21:11)
--- NOTE | 2017-09-21 16:58 | ED PDOC ---
Arrival/HPI - General Chief Complaint: Trauma Time Seen by Provider: 09/21/17 16:21 Historian: Patient, Family - History of Present Illness Narrative History of Present Illness (Text): 09/21/17 16:58 82yr old female presents today with low back pain and right hip pain s/p fall. pt states she was feeling dizzy all day and got up to walk across the room and started spinning and fell injuring right hip and low back. pt denies cp or sob. pt denies abdominal pain. pt states pain is sharp and throbbing to right hip and low back. pt denies bladder or bowel incontinence. pt denies numbness, weakness, or tingling in the extremities. pt denies nausea or vomiting. pt denies hitting her head. denies LOC. c/o dizziness. Family states patient has been c/o dizziness all week. pt states this is her 3rd fall in 2 weeks. pt states on 09/13 she broke her left wrist and is being followed by dr. liriano. Symptom Onset: Sudden Symptom Course: Unchanged Quality: Aching, Throbbing Severity Level: 9 Past Medical History - Provider Review Nursing Documentation Reviewed: Yes - Travel History Have you recently traveled outside [place] w/in the past 3 mons?: No - Infectious Disease Hx of Infectious Diseases: None - Tetanus Immunization Tetanus Immunization: Unknown - Cardiac Hx Hypertension: Yes Hx Pacemaker: No Other/Comment: pulmonary hypertension - Pulmonary Hx Chronic Obstructive Pulmonary Disease (COPD): Yes - Neurological Hx Paralysis: No - HEENT Hx HEENT Disorder: Yes Hx Cataracts: Yes - Renal Hx Renal Disorder: No - Endocrine/Metabolic Hx Endocrine Disorders: No - Hematological/Oncological Hx Blood Transfusions: Yes (2010) Hx Blood Transfusion Reaction: No - Integumentary Hx Dermatological Disorder: No - Musculoskeletal/Rheumatological Hx Musculoskeletal Disorders: Yes Hx Falls: Yes - Gastrointestinal Hx Gastrointestinal Disorders: Yes (INGUINAL HERNIA REPAIR) Hx Diverticulitis: Yes Hx Gall Bladder Disease: Yes (CHLOECYSTECTOOMY) - Genitourinary/Gynecological Hx Genitourinary Disorders: Yes Hx Incontinence: Yes - Psychiatric Hx Emotional Abuse: No Hx Physical Abuse: No Hx Substance Use: No - Surgical History Hx Appendectomy: Yes Hx Cardiac Catheterization: Yes Hx Cholecystectomy: Yes Hx Coronary Stent: Yes (X2) Other/Comment: Cyst removal in ovary. Inguinal Hernia Repair. 2 inches of intestine removed - Anesthesia Hx Anesthesia: Yes Hx Anesthesia Reactions: No Hx Malignant Hyperthermia: No - Suicidal Assessment Feels Threatened In Home Enviroment: No Family/Social History - Physician Review Nursing Documentation Reviewed: Yes Family/Social History: Unknown Family HX Smoking Status: Never Smoked Hx Alcohol Use: No Hx Substance Use: No Hx Substance Use Treatment: No Allergies/Home Meds Allergies/Adverse Reactions: Allergies codeine Adverse Reaction (Verified 09/21/17 16:47) VOMITING hydromorphone HCl [From Dilaudid] Adverse Reaction (Verified 09/21/17 16:47) VOMITING morphine Adverse Reaction (Verified 09/21/17 16:39) VOMITING MYOCINS Adverse Reaction (Uncoded 09/21/17 16:48) VOMITING Home Medications: Home Meds Medication Instructions Recorded Confirmed RX: Atorvastatin Calcium [Lipitor] 10 mg PO DAILY 02/09/12 09/21/17 RX: Clopidogrel [Plavix] 75 mg PO DAILY 02/09/12 09/21/17 RX: Ranolazine [Ranexa] 1,000 mg PO BID 01/21/15 09/21/17 RX: Aspirin [Aspirin EC] 81 mg PO DAILY 01/19/16 09/21/17 RX: Dexlansoprazole [Dexilant] 60 mg PO DAILY 01/19/16 09/21/17 RX: traMADol [Ultram] 50 mg PO TID PRN 01/19/16 09/21/17 RX: Arformoterol [Brovana] 1 carley NEB BID 03/26/17 09/21/17 RX: Riociguat [Adempas] 0.5 mg PO TID 03/26/17 09/21/17 Budesonide/Formoterol Fumarate 1 puff IH PRN PRN 08/18/17 09/21/17 [Symbicort] Levalbuterol Tartrate [Xopenex Hfa] 1 puff IH PRN PRN 08/18/17 09/21/17 Review of Systems - Review of Systems Constitutional: absent: Fatigue, Fevers Eyes: absent: Vision Changes, Photophobia, Eye Pain ENT: absent: Sinus Congestion Respiratory: absent: SOB, Cough Cardiovascular: absent: Chest Pain, Palpitations Gastrointestinal: absent: Abdominal Pain, Nausea, Vomiting Genitourinary Female: absent: Dysuria, Frequency, Hematuria, Urine Output Changes Musculoskeletal: Arthralgias, Back Pain. absent: Neck Pain Skin: absent: Rash, Pruritis Neurological: Dizziness. absent: Headache Psychiatric: absent: Anxiety, Depression, Suicidal Ideation Physical Exam Vital Signs Reviewed: Yes Vital Signs Temp Pulse Resp BP Pulse Ox 09/21/17 16:54 98.0 F 86 18 129/61 100 09/21/17 16:27 98.0 F 88 18 129/69 100 Temperature: Afebrile Blood Pressure: Normal Pulse: Regular Respiratory Rate: Normal Appearance: Positive for: Well-Appearing, Non-Toxic, Uncomfortable Pain Distress: Moderate Mental Status: Positive for: Alert and Oriented X 3 - Systems Exam Head: Present: Atraumatic Pupils: Present: PERRL Extroacular Muscles: Present: EOMI Mouth: Present: Moist Mucous Membranes Neck: Present: Normal Range of Motion. No: MIDLINE TENDERNESS, Paraspinal Tenderness Respiratory/Chest: Present: Good Air Exchange. No: Respiratory Distress, Accessory Muscle Use, Wheezes, Rhonchi, Tender to Palpation Cardiovascular: Present: Regular Rate and Rhythm Abdomen: No: Tenderness, Distention, Rebound, Guarding Back: Present: Normal Inspection, Midline Tenderness (+ low lumbar tenderness and right sided lumbar paraspinal tenderness. ), Paraspinal Tenderness Upper Extremity: Present: Normal ROM (right arm; full rom, no tenderness), Neurovascularly Intact, Other (left arm; in splint) Lower Extremity: Present: NORMAL PULSES, Tenderness (+ right hip tenderness; limited rom. ), Neurovascularly Intact, Capillary Refill < 2 s. No: CALF TENDERNESS, Temperature Abnormalties Neurological: Present: GCS=15, Speech Normal Skin: Present: Warm, Dry, Normal Color. No: Rashes Psychiatric: Present: Alert, Oriented x 3 Medical Decision Making ED Course and Treatment: 09/21/17 17:05 82yr old female with dizziness and fall. 3rd fall in 2 weeks. c/o right hip pain and low back pain. code ortho called. pt states she gets extremely nauseous from ANY narcotics. patient has agreed to take zofran with a low dose of morphine as a trial. pt with dizziness, frequent falls. will do cardiac work up cbc wnl cmp bun; 30 bnp: wnl trop: wnl ekg; NSR at 80b/m no st elevations. cxr; no infiltrate. xray right hip; no fracture ct head; FINDINGS: HEMORRHAGE: No intracranial hemorrhage. BRAIN: No mass effect or edema. Cortical atrophy, periventricular small vessel disease VENTRICLES: Unremarkable. No hydrocephalus. CALVARIUM: Unremarkable. PARANASAL SINUSES: Unremarkable as visualized. No significant inflammatory changes. MASTOID AIR CELLS: Unremarkable as visualized. No inflammatory changes. OTHER FINDINGS: Scalp contusion high posterior left parietal region. No adjacent calvarial or underlying intracranial abnormality. IMPRESSION: No acute intracranial abnormalities. No significant findings to account for the clinical presentation. No significant interval change compared to the prior examination(s). Limitations of the current examination: Patient related motion induced artifact. ct abd/pelvis; FINDINGS: CT CHEST WITHOUT CONTRAST: LUNGS: Severe centrilobular emphysematous change. Bulla formation within upper lobe predilection. MEDIASTINUM: Dilated main pulmonary artery 4.8 cm consistent with pulmonary arterial hypertension. No evidence of acute, significant cardiovascular disease. LYMPH NODES: Unremarkable. PLEURA: Unremarkable. No pneumothorax. No pleural fluid. BONES: No evidence of vertebral body, ribs, scapular or clavicular fractures. OTHER FINDINGS: Moderate hiatal hernia. CT ABDOMEN AND PELVIS: LIVER: Unremarkable. No gross lesion or ductal dilatation. GALLBLADDER AND BILE DUCTS: Status post cholecystectomy. No abnormality is seen in the gallbladder fossa. PANCREAS: Unremarkable. No gross lesion or ductal dilatation. SPLEEN: Unremarkable. ADRENALS: Unremarkable. No mass. KIDNEYS AND URETERS: Unremarkable. No hydronephrosis. No solid mass. Incidental finding(s): Simple cyst 2 cm left kidney VASCULATURE: Unremarkable. No aortic aneurysm. BOWEL: Periumbilical hernia containing transverse colon. Moderate size hiatal hernia. Postoperative findings suggest small bowel resection. Constipation without fecal impaction or obstruction. Go APPENDIX: Prior appendectomy PERITONEUM: Unremarkable. No free fluid. No free air. LYMPH NODES: Unremarkable. No enlarged lymph nodes. BLADDER: Unremarkable. REPRODUCTIVE: Unremarkable postmenopausal uterus BONES: No acute fracture. OTHER FINDINGS: Periumbilical hernia containing portions of the transverse colon without evidence of incarceration or mechanical obstruction. IMPRESSION: No acute findings related to/accounting for the clinical presentation. Additional benign and/or incidental findings described above. 09/21/17 19:31 i discussed all results in depth with patient/family. pt is still c/o right hip and low back pain, but is refusing to take any more pain medications. pt with UTI; blood and urine cultures pending. rocephin started iv. asa 325mg po case discussed with dr. heck covering for dr. christiansen in depth; accepts observational status admission for frequent falls, dizziness, UTI. case discussed with resident dr. ventura in depth; impression; frequent falls, dizziness, uti admit observational status to tele. - Lab Interpretations Lab Results: 09/21/17 16:45 09/21/17 16:45 Lab Results 09/21/17 18:55: Urine Color Straw, Urine Appearance Sl cloudy, Urine pH 6.0, Ur Specific [place] >= 1.030, Urine Protein 30 H, Urine Glucose (UA) Negative, Urine Ketones Negative, Urine Blood Negative, Urine Nitrate Positive H, Urine Bilirubin Small H, Urine Urobilinogen 0.2, Ur Leukocyte Esterase Trace H, Urine RBC 0 - 2, Urine WBC 1 - 3, Ur Epithelial Cells 3 - 4, Urine Bacteria Many 09/21/17 17:05: POC Glucose (mg/dL) 115 H 09/21/17 16:52: Blood Type A POSITIVE, Antibody Screen Negative, BBK History Checked Patient has bt 09/21/17 16:45: WBC 6.2, RBC 3.62, Hgb 11.0 L, Hct 34.3 L, MCV 94.8, MCH 30.4, MCHC 32.1, RDW 13.2, Plt Count 199, MPV 10.3, Gran % 70.6 H, Lymph % (Auto) 17.4 L, Williamson % (Auto) 7.1 H, Eos % (Auto) 4.7, Baso % (Auto) 0.2, Gran # 4.35, Lymph # 1.1 L, Williamson # 0.4, Eos # 0.3, Baso # 0.01 09/21/17 16:45: Sodium 139, Potassium 4.8, Chloride 101, Carbon Dioxide 29, Anion Gap 14, BUN 30 H, Creatinine 1.0, Est GFR ( Amer) > 60, Est GFR ( Non-Af Amer) 53, Random Glucose 123 H, Calcium 9.5, Total Bilirubin 0.6, AST 22 , ALT 27, Alkaline Phosphatase 56, Lactate Dehydrogenase 472, Total Creatine Kinase 36, Troponin I < 0.01, NT-Pro-B Natriuret Pep 79.9, Total Protein 6.5, Albumin 3.9, Globulin 2.6, Albumin/Globulin Ratio 1.5 - RAD Interpretation Radiology Orders: 09/21/17 16:36 HEAD W/O CONTRAST [CT] Stat CHEST ONE VIEW [RAD] Stat Hip Right [HIP MIN 2V W/ PELVIS RT] [RAD] Stat 09/21/17 17:13 CHEST,ABDOMEN, PELVIS W/O CONT [CT] Stat - Medication Orders Current Medication Orders: Ceftriaxone Sodium (Rocephin 1 Gram Ivpb) 1 gm in 100 mls @ 200 mls/hr IVPB STAT STA PRN Reason: Protocol Stop: 09/21/17 19:52 Discontinued Medications Aspirin (Aspirin) 325 mg PO STAT STA Stop: 09/21/17 19:27 Morphine Sulfate (Morphine) 1 mg IVP STAT STA Stop: 09/21/17 16:38 Last Admin: 09/21/17 16:54 Dose: 1 mg MAR Pain Assessment Document 09/21/17 16:54 SE (Rec: 09/21/17 16:55 SE [id number]) Pain Reassessment Is this a pain reassessment? No Sleep Is patient sleeping during reassessment? No Presence of Pain Presence of Pain Yes Pain Scale Used Pain Scale Used Numeric IVP Administration Document 09/21/17 16:54 SE (Rec: 09/21/17 16:55 SE [id number]) Charges for Administration # of IVP Administrations 1 Ondansetron HCl (Zofran Inj) 4 mg IVP STAT STA Stop: 09/21/17 16:38 Last Admin: 09/21/17 16:55 Dose: 4 mg IVP Administration Document 09/21/17 16:55 SE (Rec: 09/21/17 16:55 SE [id number]) Charges for Administration # of IVP Administrations 1 Ondansetron HCl (Zofran Inj) 4 mg IVP STAT STA Stop: 09/21/17 18:09 Last Admin: 09/21/17 18:12 Dose: 4 mg IVP Administration Document 09/21/17 18:12 SE (Rec: 09/21/17 18:12 SE [id number]) Charges for Administration # of IVP Administrations 1 Disposition/Present on Arrival - Present on Arrival Any Indicators Present on Arrival: No History of DVT/PE: No History of Uncontrolled Diabetes: No Urinary Catheter: No History of Decub. Ulcer: No History Surgical Site Infection Following: None - Disposition Have Diagnosis and Disposition been Completed?: Yes Diagnosis: Dizziness, UTI (urinary tract infection), Frequent falls Disposition: HOSPITALIZED Disposition Time: 19:15 Patient Plan: Observation Condition: FAIR Forms: [employer] (Lux[place]ish)
[2017-09-21 17:05] LABS: BASO # 0.01 K/mm3 (0.0-2.0); BASO % 0.2 % (0.0-3.0); EOS # 0.3 (0.0-0.7); EOS % 4.7 % (1.5-5.0); GRAN # 4.35 (1.4-6.5); GRAN % 70.6 % (50.0-68.0); LYMPH # 1.1 (1.2-3.4); LYMPH % 17.4 % (22.0-35.0); MEAN CELL VOLUME 94.8 fl (80.0-105.0); MEAN CORPUSCULAR HEMOGLOBIN 30.4 pg (25.0-35.0); MEAN CORPUSCULAR HGB CONC 32.1 g/dl (31.0-37.0); MEAN PLATELET VOLUME 10.3 fl (7.0-11.0); MONO # 0.4 (0.1-0.6); MONO % 7.1 % (1.0-6.0); RBC 3.62 10^6/uL (3.5-6.1); RED CELL DISTRIBUTION WIDTH 13.2 % (11.5-14.5); WHITE BLOOD COUNT 6.2 10^3/ul (4.5-11.0)
[2017-09-21 17:19] LABS: B-TYPE NATRIURETIC PEPTIDE 79.9 pg/mL (0-450); TROPONIN I < 0.01 ng/mL
[2017-09-21 17:23] LABS: ALB/GLOB RATIO 1.5 (1.1-1.8); ALBUMIN 3.9 g/dL (3.0-4.8); ALT/SGPT 27 U/L (7-56); AST/SGOT 22 U/L (14-36); BLOOD UREA NITROGEN 30 mg/dL (7-21); CALCIUM 9.5 mg/dL (8.4-10.5); GFR AFRICAN-AMERICAN > 60; GFR NON-AFRICAN AMERICAN 53
--- NOTE | 2017-09-21 18:20 | CT ---
PROCEDURE: CT HEAD WITHOUT CONTRAST. HISTORY: fall COMPARISON: 09/13/2017 TECHNIQUE: Axial computed tomography images were obtained through the head/brain without intravenous contrast. Radiation dose: Total exam DLP = 802.35 mGy-cm. This CT exam was performed using one or more of the following dose reduction techniques: Automated exposure control, adjustment of the mA and/or kV according to patient size, and/or use of iterative reconstruction technique. FINDINGS: HEMORRHAGE: No intracranial hemorrhage. BRAIN: No mass effect or edema. Cortical atrophy, periventricular small vessel disease VENTRICLES: Unremarkable. No hydrocephalus. CALVARIUM: Unremarkable. PARANASAL SINUSES: Unremarkable as visualized. No significant inflammatory changes. MASTOID AIR CELLS: Unremarkable as visualized. No inflammatory changes. OTHER FINDINGS: Scalp contusion high posterior left parietal region. No adjacent calvarial or underlying intracranial abnormality. IMPRESSION: No acute intracranial abnormalities. No significant findings to account for the clinical presentation. No significant interval change compared to the prior examination(s). Limitations of the current examination: Patient related motion induced artifact.
--- NOTE | 2017-09-21 18:39 | CT ---
PROCEDURE: CT Chest, Abdomen and Pelvis without intravenous contrast HISTORY: Posttraumatic right rib and right hip pain as well as low back pain. Relevant surgical history: Appendectomy, cholecystectomy, umbilical hernia and surgical repair spinal stenosis. COMPARISON: None. TECHNIQUE: Radiation dose: Total exam DLP = 1102.98 MGy-cm. This CT exam was performed using one or more of the following dose reduction techniques: Automated exposure control, adjustment of the mA and/or kV according to patient size, and/or use of iterative reconstruction technique. FINDINGS: CT CHEST WITHOUT CONTRAST: LUNGS: Severe centrilobular emphysematous change. Bulla formation within upper lobe predilection. MEDIASTINUM: Dilated main pulmonary artery 4.8 cm consistent with pulmonary arterial hypertension. No evidence of acute, significant cardiovascular disease. LYMPH NODES: Unremarkable. PLEURA: Unremarkable. No pneumothorax. No pleural fluid. BONES: No evidence of vertebral body, ribs, scapular or clavicular fractures. OTHER FINDINGS: Moderate hiatal hernia. CT ABDOMEN AND PELVIS: LIVER: Unremarkable. No gross lesion or ductal dilatation. GALLBLADDER AND BILE DUCTS: Status post cholecystectomy. No abnormality is seen in the gallbladder fossa. PANCREAS: Unremarkable. No gross lesion or ductal dilatation. SPLEEN: Unremarkable. ADRENALS: Unremarkable. No mass. KIDNEYS AND URETERS: Unremarkable. No hydronephrosis. No solid mass. Incidental finding(s): Simple cyst 2 cm left kidney VASCULATURE: Unremarkable. No aortic aneurysm. BOWEL: Periumbilical hernia containing transverse colon. Moderate size hiatal hernia. Postoperative findings suggest small bowel resection. Constipation without fecal impaction or obstruction. Go APPENDIX: Prior appendectomy PERITONEUM: Unremarkable. No free fluid. No free air. LYMPH NODES: Unremarkable. No enlarged lymph nodes. BLADDER: Unremarkable. REPRODUCTIVE: Unremarkable postmenopausal uterus BONES: No acute fracture. OTHER FINDINGS: Periumbilical hernia containing portions of the transverse colon without evidence of incarceration or mechanical obstruction. IMPRESSION: No acute findings related to/accounting for the clinical presentation. Additional benign and/or incidental findings described above.
[2017-09-21 19:14] LABS: URINE BILIRUBIN SMALL (NEGATIVE); URINE BLOOD NEGATIVE (NEGATIVE); URINE GLUCOSE (UA) NEGATIVE (NEGATIVE); URINE LEUKOCYTE ESTERASE TRACE Leu/uL (NEGATIVE); URINE NITRATE POSITIVE (NEGATIVE); URINE PROTEIN 30 mg/dL (<30 mg/dL); URINE UROBILINOGEN 0.2 E.U./dL (<1 E.U./dL)
[2017-09-21 19:15] LABS: URINE APPEARANCE SL CLOUDY (CLEAR); URINE COLOR STRAW (YELLOW)
[2017-09-21 19:23] LABS: URINE RBC 0 - 2 /hpf (0-2)
[2017-09-21] MEDS ORDERED: cefTRIAXone 1 gm 1 GM/100 ML BAG IVPB STA (19:23)
[2017-09-21 19:24] LABS: URINE BACTERIA MANY (NEG)
[2017-09-21] MEDS ORDERED: LEVALBUTEROL TARTRATE IH PRN (22:04)
[2017-09-21] MEDS ORDERED: Non Formulary Medication (Budesonide/Formoterol Fumarate [Symbicort 160-4.5 Mcg Inhaler] 1 IH PRN (22:04)
[2017-09-21] MEDS ORDERED: Etomidate 20 mg/10ml Inj IV ONE (22:08)
[2017-09-21] MEDS ORDERED: Succinylcholine 200 mg/10 ml Inj IV ONE (22:08)
[2017-09-21] MEDS ORDERED: Dextrose 50% SYRINGE Inj (50 ml) ONE (22:12)
--- NOTE | 2017-09-21 23:13 | CP.PCM.HP ---
<Jay Garber - Last Filed: 09/22/17 01:34> History of Present Illness - History of Present Illness History of Present Illness: CC: Dizziness and fall HPI: 82 F with a PMHx of CAD s/p stents, O2-dependent COPD, pulmonary HTN, HTN, HLD, emphysema, and osteoporosis who presented to [facility] with complaints of low back pain and right hip pain s/p fall. Pt states she has been experiencing episodes of dizziness for the past couple of weeks, which she has attributed to her medications - specifically adempas. Pt states that she stood and walked across the room at which time the room felt as if it was spinning and then led her to fall , first hitting the side of a table and then the floor landing on her lower back. Pt was found by family and subsequently taken to [facility] ED. Pt denied any tongue biting, or urinary incontinence. Pt denied any LOC or trauma to her head. Pt has low back pain in the lumbar region on the right side that is sharp in nature and does not radiate. Pt states her pain is exacerbated by change in position. Pt denied bladder or bowel incontinence, numbness, weakness , or tingling in the extremities. She denied fever, chills, sob, chest pains, abdominal pains, diarrhea, constipation, nausea or vomiting. Of note, this is her 3rd fall in 2 weeks. Of note, on 09/13 she broke her left wrist and is being followed by Ortho, Dr. Heaton. PMHx: CAD s/p stents, O2-dependent COPD, pulmonary HTN, HTN, HLD, emphysema, and osteoporosis PSHx: appendectomy, partial bowel resection, ovarian cyst excision, cholecystectomy SHx: Former Smoker (cigarettes, 1 ppd [id number], quit approx 10 years ago), denies alcohol/illicits/IVDA FamHx: Noncontributory Meds: MAR Reviewed Allergies - NKDA, Side effect os nausea/vomiting with codeine/morphine PMD: Dr. Valentine Present on Admission - Present on Admission Any Indicators Present on Admission: No Review of Systems - Review of Systems Review of Systems: As per HPI otherwise negative Past Patient History - Infectious Disease Hx of Infectious Diseases: None - Tetanus Immunizations Tetanus Immunization: Unknown - Past Medical History & Family History Past Medical History?: Yes - Past Social History Smoking Status: Never Smoked - CARDIAC Hx Hypertension: Yes Hx Pacemaker: No Other/Comment: pulmonary hypertension - PULMONARY Hx Chronic Obstructive Pulmonary Disease (COPD): Yes - NEUROLOGICAL Hx Paralysis: No - HEENT Hx HEENT Problems: Yes Hx Cataracts: Yes - RENAL Hx Chronic Kidney Disease: No - ENDOCRINE/METABOLIC Hx Endocrine Disorders: No - HEMATOLOGICAL/ONCOLOGICAL Hx Blood Transfusions: Yes (2010) Hx Blood Transfusion Reaction: No - INTEGUMENTARY Hx Dermatological Problems: No - MUSCULOSKELETAL/RHEUMATOLOGICAL Hx Musculoskeletal Disorders: Yes Hx Falls: Yes - GASTROINTESTINAL Hx Gastrointestinal Disorders: Yes (INGUINAL HERNIA REPAIR) Hx Diverticulitis: Yes Hx Gall Bladder Disease: Yes (CHLOECYSTECTOOMY) - GENITOURINARY/GYNECOLOGICAL Hx Genitourinary Disorders: Yes Hx Incontinence: Yes - PSYCHIATRIC Hx Emotional Abuse: No Hx Physical Abuse: No Hx Substance Use: No - SURGICAL HISTORY Hx Appendectomy: Yes Hx Cardiac Catheterization: Yes Hx Cholecystectomy: Yes Hx Coronary Stent: Yes (X2) Other/Comment: Cyst removal in ovary. Inguinal Hernia Repair. 2 inches of intestine removed - ANESTHESIA Hx Anesthesia: Yes Hx Anesthesia Reactions: No Hx Malignant Hyperthermia: No Meds Allergies/Adverse Reactions: Allergies Allergy/AdvReac Type Severity Reaction Status Date / Time codeine AdvReac VOMITING Verified 09/21/17 16:47 hydromorphone HCl AdvReac VOMITING Verified 09/21/17 16:47 [From Dilaudid] morphine AdvReac VOMITING Verified 09/21/17 16:39 MYOCINS AdvReac VOMITING Uncoded 09/21/17 16:48 Physical Exam - Constitutional Appears: No Acute Distress - Head Exam Head Exam: ATRAUMATIC, NORMAL INSPECTION, NORMOCEPHALIC - Eye Exam Eye Exam: EOMI, Normal appearance, PERRL Pupil Exam: NORMAL ACCOMODATION, PERRL - ENT Exam ENT Exam: Mucous Membranes Moist - Respiratory Exam Respiratory Exam: Clear to Auscultation Bilateral, NORMAL BREATHING PATTERN - Cardiovascular Exam Cardiovascular Exam: REGULAR RHYTHM, +S1, +S2 - GI/Abdominal Exam GI & Abdominal Exam: Normal Bowel Sounds, Soft. absent: Tenderness - Extremities Exam Extremities exam: Positive for: normal inspection - Back Exam Back exam: paraspinal tenderness - Neurological Exam Neurological exam: Alert, CN II-XII Intact, Oriented x3, Reflexes Normal - Psychiatric Exam Psychiatric exam: Normal Affect, Normal Mood - Skin Skin Exam: Dry, Intact, Normal Color, Warm Results - Vital Signs Recent Vital Signs: Last Vital Signs Temp 98.0 F 09/21/17 16:54 Pulse 100 H 09/21/17 20:43 Resp 18 09/21/17 20:43 BP 171/53 H 09/21/17 20:43 Pulse Ox 95 09/21/17 20:43 - Labs Result Diagrams: 09/21/17 16:45 09/21/17 16:45 Assessment & Plan - Assessment and Plan (Free Text) Assessment: 82 year old female with PMHx of CAD s/p stents, O2-dependent COPD, pulmonary HTN , HTN, HLD, emphysema, and osteoporosis admitted s/p fall, intractable low back pain, and UTI 1. Dizziness and fall - likely 2/2 medication - FU TSH, orthostatics - CTH negative for intracranial pathology - Imaging negative for fractures - Fu Echo - Fu CMP - Cardiology Consulted, Dr. Echavarria 2. Intractable low back pain - 2/2 fall - morphine 1mg q4 - Zofran 4mg q4 - PT/OT 3. UTI - FU C&S - Empiric Rocephin 4. COPD - continue home nebulizers - maintain 02 sat > 88% - Pulm, Dr. Briggs consulted 5. Hx CAD s/p stents - Cardio Dr. Echavarria consulted, appreciate all recs - Continue ASA, plavix, and lipitor 6. Hypocalcemia with hx of osteoporosis - continue caltrate 7. GERD - protonix 40mg IV 8. HLD - lipitor DVT and GI ppx reviewed Seen reviewed and discussed with attending <Nigel Wheeler - Last Filed: 09/22/17 08:23> Results - Vital Signs Recent Vital Signs: Last Vital Signs Temp 98.0 F 09/21/17 16:54 Pulse 97 H 09/22/17 02:00 Resp 16 09/21/17 23:09 BP 151/70 H 09/21/17 23:09 Pulse Ox 100 09/21/17 23:09 - Labs Result Diagrams: 09/22/17 05:30 09/22/17 05:30 Labs: Laboratory Results - last 24 hr 09/22/17 09/22/17 05:30 05:30 WBC 6.2 RBC 3.56 Hgb 10.7 L Hct 33.5 L MCV 94.1 MCH 30.1 MCHC 31.9 RDW 13.2 Plt Count 173 MPV 10.6 Gran % 79.8 H Lymph % (Auto) 10.0 L Gentry % (Auto) 7.1 H Eos % (Auto) 2.9 Baso % (Auto) 0.2 Gran # 4.92 Lymph # 0.6 L Gentry # 0.4 Eos # 0.2 Baso # 0.01 Sodium 137 Potassium 4.6 Chloride 100 Carbon Dioxide 29 Anion Gap 13 BUN 28 H Creatinine 1.0 Est GFR ( Amer) > 60 Est GFR (Non-Af Amer) 53 Random Glucose 112 H Calcium 9.3 Phosphorus 3.8 Magnesium 1.7 Total Bilirubin 0.5 AST 21 ALT 30 Alkaline Phosphatase 62 Total Protein 6.0 Albumin 3.5 Globulin 2.5 Albumin/Globulin Ratio 1.4 Assessment & Plan - Assessment and Plan (Free Text) Plan: discussed w/ resident at length went over meds labs tests xrays orders plans consults reviewed
[2017-09-22 06:28] LABS: BASO # 0.01 K/mm3 (0.0-2.0); BASO % 0.2 % (0.0-3.0); EOS # 0.2 (0.0-0.7); EOS % 2.9 % (1.5-5.0); GRAN # 4.92 (1.4-6.5); GRAN % 79.8 % (50.0-68.0); HEMOGLOBIN 10.7 g/dL (12.0-16.0); LYMPH # 0.6 (1.2-3.4); MEAN CELL VOLUME 94.1 fl (80.0-105.0); MEAN CORPUSCULAR HEMOGLOBIN 30.1 pg (25.0-35.0); MEAN CORPUSCULAR HGB CONC 31.9 g/dl (31.0-37.0); MEAN PLATELET VOLUME 10.6 fl (7.0-11.0); MONO # 0.4 (0.1-0.6); MONO % 7.1 % (1.0-6.0); RBC 3.56 10^6/uL (3.5-6.1); RED CELL DISTRIBUTION WIDTH 13.2 % (11.5-14.5); WHITE BLOOD COUNT 6.2 10^3/ul (4.5-11.0)
[2017-09-22] MEDS: Morphine 2 mg/ml ISec IVP PRN ×2 (06:42→13:56)
[2017-09-22 06:55] LABS: ALB/GLOB RATIO 1.4 (1.1-1.8); ALBUMIN 3.5 g/dL (3.0-4.8); ALT/SGPT 30 U/L (7-56); AST/SGOT 21 U/L (14-36); BLOOD UREA NITROGEN 28 mg/dL (7-21); CALCIUM 9.3 mg/dL (8.4-10.5); GFR AFRICAN-AMERICAN > 60; GFR NON-AFRICAN AMERICAN 53; MAGNESIUM 1.7 mg/dL (1.7-2.2)
--- NOTE | 2017-09-22 07:33 | RAD ---
PROCEDURE: Right Hip with Pelvis Radiographs. HISTORY: hip pain COMPARISON: None. FINDINGS: BONES: No acute fracture or destructive bony lesion identified. JOINTS: Prominent sclerosis of the articular surface is appreciate with osteophytic development in a pattern suggestive of moderate to severe osteoarthritis. Pelvic ring appears intact with diffuse osteopenia suggests osteoporosis. degenerative change are seen the left hip which appear: . Advanced degenerative joint changes seen the bilateral sacroiliac joints as well. SOFT TISSUES: Vascular calcifications in the inferior and mid pelvis soft tissues with surgical clips identified in the left lower quadrant abdomen. OTHER FINDINGS: None. IMPRESSION: No acute fracture, subluxation or dislocation identified. Diffuse osteopenia suggests osteoporosis. Bilateral hip and sacroiliac joint degenerative changes are identified.
--- NOTE | 2017-09-22 07:34 | RAD ---
PROCEDURE: CHEST RADIOGRAPH, 1 VIEW HISTORY: dizziness COMPARISON: Chest 06/21/2017. FINDINGS: LUNGS: No acute infiltrate identified bilaterally. There is reiteration of chronic fibrotic changes predominantly at the bilateral pulmonary apices once again. PLEURA: No pneumothorax or pleural fluid seen. CARDIOVASCULAR: Normal. OSSEOUS STRUCTURES: No significant abnormalities. VISUALIZED UPPER ABDOMEN: Normal. OTHER FINDINGS: None. IMPRESSION: Chronic interstitial pulmonary disease again appreciated, apical predominant without alveolitis, pleural effusion or pneumothorax appreciated this time. No significant interval change identified.
--- NOTE | 2017-09-22 07:34 | CON ---
DATE: 09/22/2017 PULMONARY CONSULTATION REFERRING PHYSICIAN: Dr. Neeraj Valentine REASON FOR CONSULTATION: Chronic obstructive pulmonary disease. HISTORY OF PRESENT ILLNESS: The patient is an 82-year-old female, chronically ill, with past medical history significant for end-stage chronic obstructive pulmonary disease, on home oxygen, severe pulmonary hypertension, coronary artery disease, status post multiple cardiac stents, who presents to [facility] with main complaints of increasing lower back pain and right hip pain status post fall at home. The patient states that she has been increasingly dizzy for the past 2 weeks. She has had multiple falls at home over the past few weeks. She has also been feeling increasingly weak over the past few weeks. She was thus admitted for additional evaluation. The patient is not short of breath at rest. She does have chronic severe dyspnea on exertion. She also has an occasional cough with minimal sputum production. These symptoms have not changed. There is no history of chest pain, coughing up of blood, or chest pain - made worse with deep respirations. There is no history of temperatures, chills or infectious exposure. There is no history of night sweats, weight loss or appetite change prior to the above events. No history of calf pains. No history of syncope or diaphoresis. No history of recent travel. REVIEW OF SYSTEMS: No history of nausea, vomiting, or diarrhea. No acute urinary symptoms. Rest of the review of systems is noncontributory. ALLERGIES: TO CODEINE, DILAUDID, AND MORPHINE. SOCIAL HISTORY: Positive for extensive tobacco usage. No alcohol. FAMILY HISTORY: No inheritable diseases. HOME MEDICATIONS: Include aspirin, Brovana, Adempas, Ranexa, Dexilant, Xopenex, Plavix, Caltrate, Symbicort Lipitor, Tylenol, and Xanax. PHYSICAL EXAMINATION: GENERAL: The patient appears comfortable this morning. She is not short of breath at rest. VITAL SIGNS: Temperature is 98.0, pulse on the monitor is 88, respiratory rate 16, blood pressure 151/70. Oxygen saturation on nasal cannula is 100%. HEENT: Normocephalic, atraumatic. No JVD. CARDIOVASCULAR: Systolic ejection murmur at the lower left sternal border. No S3 gallop. LUNGS: Clear bilaterally. EXTREMITIES: Positive for mild edema. No cyanosis, no clubbing. Calves are nontender to palpation. GI: Abdomen is soft, nontender and nondistended. Bowel sounds are positive. SKIN: No acute rash. NEUROLOGIC: Limited at the present time. PERTINENT LABORATORY DATA: CAT scan of the chest was done yesterday and reviewed. There is severe centrilobular emphysema noted. There are also findings consistent with pulmonary artery hypertension. There is no lymphadenopathy. There are no acute findings. CBC: White count 6.2, hemoglobin 11.0, hematocrit 34.3, platelets of 199,000. Complete metabolic profile: BUN 30, glucose 123. Rest of the metabolic profiles within normal limits. IMPRESSION: 1. Severe dizziness, frequent falls. 2. End-stage chronic obstructive pulmonary disease. 3. Severe pulmonary hypertension. 4. Coronary artery disease. 5. Anemia. PLAN: The patient presents to [facility] with main complaints of worsening dizziness and weakness for the past 2 weeks. As above, the patient has had multiple falls. I did review the CAT scan of the chest. There is severe emphysema noted. There is also evidence of pulmonary hypertension. There are no acute findings. On physical exam, the patient's lungs are clear. Oxygen saturation on nasal cannula is 100%. The patient is currently on inhaled Brovana. I will add inhaled Pulmicort. I will also try adding Spiriva this morning. As above, the patient has experienced severe dizziness for the past 2 weeks. She has been on Adempas for multiple YEARS. While I do not think that the Adempas is the cause of the severe dizziness, it certainly can contribute to the above symptoms. I will thus hold the Adempas for now. One of the main problems in this case, is that the patient does have severe pulmonary hypertension. The Adempas was the only drug approved by her insurance. However, as above, I will hold the Adempas for now. Additional pulmonary intervention will be based on the clinical status of the patient. I will discuss the above with Dr. Valentine this morning. Thank you very much for this pulmonary consultation. Evgeny Briggs MD JOSEPH
[2017-09-22] MEDS: Budesonide 0.5 mg/2 ml Inhal Susp UD IH SCH ×2 (08:03→20:40)
[2017-09-22] MEDS: Levalbuterol 0.63 MG/3 ML Inhal Soln UD IH PRN (08:03)
[2017-09-22 09:02] VITALS: BMI 26.4
[2017-09-22 09:29] LABS: IRON 40 ug/dL (45-180)
[2017-09-22] MEDS ORDERED: ADEMPAS 0.5 MG PO SCH (09:30)
[2017-09-22 09:39] LABS: TOTAL IRON BINDING CAPACITY 264 ug/dL (265-497)
[2017-09-22] MEDS: Tiotropium 18 mcg Cap For Inhalation IH SCH (09:47)
[2017-09-22] MEDS: cefTRIAXone 2 GM IN NS 2 GM/100 ML BAG IVPB SCH (09:48)
[2017-09-22 09:49] LABS: % IRON SATURATION 15 % (20-55)
[2017-09-22] MEDS ORDERED: RIOCIGUAT 0.5 MG PO SCH ×2 (10:00)
[2017-09-22] MEDS ORDERED: RANOLAZINE 1000 MG PO SCH (10:00)
--- NOTE | 2017-09-22 12:06 | CP.PCM.PN ---
Subjective - Date & Time of Evaluation Date of Evaluation: 09/22/17 Time of Evaluation: 09:20 - Subjective Subjective: Ferny Bullard PGY1 IM Progress Note for Dr. Valentine/Dr. Page Service Patient was seen and examined at bedside. She is complaining of back pain. She is told that her fall may have been due to her medication adempas. Patient is told that the medication will be held for now. Patient denies headaches, vision changes, dizziness, fevers/chills, abdominal pain, n/v/d. Objective - Vital Signs/Intake and Output Vital Signs (last 24 hours): Temp Pulse Resp BP Pulse Ox 98.0 F 96 H 19 141/84 94 L 09/21/17 16:54 09/22/17 06:00 09/22/17 06:00 09/22/17 06:00 09/22/17 06:00 Intake and Output: 09/22/17 09/22/17 06:59 18:59 Intake Total 80 Output Total 50 Balance 30 - Medications Medications: Current Medications Arformoterol Tartrate (Brovana) 15 mcg IH BID [facility] Aspirin (Ecotrin) 81 mg PO DAILY [facility] Last Admin: 09/22/17 09:47 Dose: 81 mg Atorvastatin Calcium (Lipitor) 10 mg PO DAILY [facility] Last Admin: 09/22/17 09:48 Dose: 10 mg Budesonide (Pulmicort Respules) 0.5 mg IH [id number] [facility] Last Admin: 09/22/17 08:03 Dose: 0.5 mg Calcium Carbonate (Caltrate) 600 mg PO DAILY [facility] Last Admin: 09/22/17 09:47 Dose: 600 mg Clopidogrel Bisulfate (Plavix) 75 mg PO DAILY [facility] Last Admin: 09/22/17 09:47 Dose: 75 mg Docusate Sodium (Colace) 100 mg PO DAILY [facility] Last Admin: 09/22/17 09:47 Dose: 100 mg Home Med (Home Med) 1 unit PO [id number] [facility] Home Med (Home Med) 1 unit PO BID [facility] Last Admin: 09/22/17 09:47 Dose: 1 unit Ceftriaxone Sodium (Rocephin 2 Gm Ivpb) 2 gm in 100 mls @ 100 mls/hr IVPB DAILY [facility] PRN Reason: Protocol Last Admin: 09/22/17 09:48 Dose: 100 mls/hr Levalbuterol HCl (Xopenex) 0.63 mg IH [id number] PRN PRN Reason: Shortness of Breath Last Admin: 09/22/17 08:03 Dose: 0.63 mg Morphine Sulfate (Morphine) 1 mg IVP Q4H PRN PRN Reason: Pain, severe (8-10) Last Admin: 09/22/17 06:42 Dose: 1 mg Ondansetron HCl (Zofran Inj) 4 mg IVP Q4H PRN PRN Reason: Nausea/Vomiting Last Admin: 09/22/17 06:42 Dose: 4 mg Sennosides (Senokot Tab) 17.2 mg PO HS [facility] Last Admin: 09/21/17 23:08 Dose: Not Given Tiotropium [place] (Spiriva) 18 mcg IH DAILY [facility] Last Admin: 09/22/17 09:47 Dose: 18 mcg - Labs Labs: 09/22/17 05:30 09/22/17 05:30 - Additional Findings Additional findings: - Constitutional Appears: No Acute Distress - Head Exam Head Exam: ATRAUMATIC, NORMAL INSPECTION, NORMOCEPHALIC - Eye Exam Eye Exam: EOMI, Normal appearance, PERRL Pupil Exam: NORMAL ACCOMODATION, PERRL - ENT Exam ENT Exam: Mucous Membranes Moist - Respiratory Exam Respiratory Exam: Clear to Auscultation Bilateral, NORMAL BREATHING PATTERN - Cardiovascular Exam Cardiovascular Exam: REGULAR RHYTHM, +S1, +S2 - GI/Abdominal Exam GI & Abdominal Exam: Normal Bowel Sounds, Soft. absent: Tenderness - Extremities Exam Extremities exam: Positive for: normal inspection Additional Comments: L wrist in long cast extending just distal to elbow - Back Exam Back exam: paraspinal tenderness - Neurological Exam Neurological exam: Alert, CN II-XII Intact, Oriented x3, Reflexes Normal - Psychiatric Exam Psychiatric exam: Normal Affect, Normal Mood - Skin Skin Exam: Dry, Intact, Normal Color, Warm Assessment and Plan - Assessment and Plan (Free Text) Assessment: 82 year old female with PMHx of CAD s/p stents, O2-dependent COPD, pulmonary HTN , HTN, HLD, emphysema, and osteoporosis admitted s/p fall, intractable low back pain, and UTI Plan: 1. Dizziness and fall likely 2/2 medication side effect, associated low back pain - CTH negative for intracranial pathology - LS XR ordered, f/u - TSH wnl - orthostatics pending - Imaging negative for fractures - Fu Echo and Carotid US - pain mgmt: morphine 1mg q4 - PT/OT - Cardiology, Dr. Echavarria consulted, recs appreciated - Neurology, Dr. Grady consulted, recs appreciated - Ortho, Dr. Heaton consulted, recs appreciated 2. UTI - f/u urine and blood C&S - Empiric Rocephin 3. Anemia - workup ordered - likely 2/2 chronic disease 4. COPD - continue home nebulizers - maintain 02 sat > 88% - Pulm, Dr. Briggs consulted 5. Hx CAD s/p stents - Cardio Dr. Echavarria consulted, appreciate all recs - Continue ASA, plavix, and lipitor 6. Hypocalcemia with hx of osteoporosis - continue caltrate 7. GERD - protonix 40mg IV 8. HLD - lipitor DVT and GI ppx reviewed HHD Patient was seen, examined and discussed with attending, Dr. Meme Bullard PGY1 Pager # [phone]
--- NOTE | 2017-09-22 12:31 | CARD ---
APPROVED REPORT EKG Measurement Heart [id number] <Conclusion> Normal sinus rhythm Normal ECG
--- NOTE | 2017-09-22 14:28 | CON ---
DATE: 09/22/2017 CARDIOLOGY CONSULTATION HISTORY OF PRESENT ILLNESS: The patient is an 82-year-old woman who presents with recurrent falls x3 over the past several days. The patient denies loss of consciousness. She does complain of intermittent dizziness. She denies shortness of breath and denies chest pain. In addition, the patient suffers from severe COPD and is on home oxygen. In addition, she was found to have mild pulmonary hypertension. PAST MEDICAL HISTORY: The patient's past medical history is notable for multivessel CAD with PTCA and stent in the past. She underwent a cardiac catheterization in the last month which showed her stents to be patent with an ejection fraction of 80%. MEDICATIONS: She has been placed on Ranexa up to 1000 mg at home because of recurrent chest pain symptoms. SOCIAL HISTORY: The patient does not smoke now, but is a former heavy smoker and is on home oxygen. REVIEW OF SYSTEMS: A 14-point review of systems was reviewed in detail. No loss of consciousness and no angina. No edema in the lower extremities. Her dyspnea is stable. PHYSICAL EXAMINATION: VITAL SIGNS: Blood pressure of 141/84 and heart rate is in the 90s. NECK: Negative JVD. LUNGS: Decreased breath sounds without rales. HEART: Reveals S1 and S2. EXTREMITIES: Without edema. LABORATORY DATA: Hemoglobin is 10.7. Chemistries: Troponin is negative x1. BUN and creatinine are 28 and 1.0. The glucose is 112. DIAGNOSTIC DATA: EKG is unchanged from her previous. IMPRESSION 1. Status post recurrent falls. 2. Stable angina. 3. No evidence for acute coronary syndrome. 4. Severe chronic obstructive pulmonary disease. 5. Hypertension. 6. Multivessel coronary artery disease. 7. Chronic dyspnea. PLAN: Given these findings, we will obtain orthostatic BP changes. May need to cut back on her some of her medications including Ranexa. Harrison Echavarria MD
--- NOTE | 2017-09-22 16:33 | MRI ---
PROCEDURE: MRI BRAIN WITHOUT CONTRAST HISTORY: dizziness and fall COMPARISON: CT head 09/21/2017 TECHNIQUE: Multiplanar, multisequence MR images of the brain were obtained without intravenous contrast enhancement. FINDINGS: HEMORRHAGE: None DWI: No evidence of an acute or early subacute infarction. BRAIN PARENCHYMA: No mass effect or edema. Minimal cerebral atrophy. Few FLAIR deep white matter were subcortical white matter hyperintensities -compatible with mild chronic microvascular ischemic changes. VENTRICLES: Unremarkable. No hydrocephalus. CRANIUM: Unremarkable. ORBITS: Grossly unremarkable. PARANASAL SINUSES/MASTOIDS: Mastoid effusion VASCULAR SYSTEM: Skull base flow voids intact. OTHER FINDINGS: Trace effusion right adventism bone petrous tip -axial series 4, image 6 IMPRESSION: No acute infarct Few bilateral supratentorial deep white matter fewer subcortical 1 changes in this age group chronic microvascular ischemic changes are favored. The paucity of findings in this 82 old female are noted . No extra-axial blood Right mastoid effusion .Trace effusion right adventism bone petrous tip
--- NOTE | 2017-09-22 18:23 | US ---
PROCEDURE: Bilateral carotid artery duplex ultrasound HISTORY: Carotid stenosis syncope PHYSICIAN(S): Harrison Blackburn MD. TECHNIQUE: Duplex sonography and color-flow Doppler were used to evaluate the carotid bifurcations and limited segments of the vertebral arteries bilaterally. FINDINGS: There is mild smooth heterogeneous plaque noted at the carotid bifurcations bilaterally. The peak systolic velocity in the proximal right internal carotid artery is 89 cm/sec. This corresponds to a 20 to 39% proximal right ICA stenosis. Normal systolic velocities are noted in the proximal right external carotid artery. There is antegrade flow in the right vertebral artery. The peak systolic velocity in the proximal left internal carotid artery is 108 cm/sec. This corresponds to a 20 to 39% proximal left ICA stenosis. Normal systolic velocities are noted in the proximal left external carotid artery. There is antegrade flow in the left vertebral artery. IMPRESSION: 1. Bilateral 20-39% proximal ICA stenoses. 2. Antegrade flow in both vertebral arteries.
[2017-09-22] MEDS: Arformoterol 15 mcg/2 ml Inh Sol IH SCH (20:40)
[2017-09-23] MEDS: Morphine 2 mg/ml ISec IVP PRN ×3 (00:45→14:45)
[2017-09-23 07:02] LABS: BASO # 0.02 K/mm3 (0.0-2.0); BASO % 0.3 % (0.0-3.0); EOS # 0.2 (0.0-0.7); EOS % 2.5 % (1.5-5.0); GRAN # 5.06 (1.4-6.5); GRAN % 77.7 % (50.0-68.0); HEMOGLOBIN 10.5 g/dL (12.0-16.0); LYMPH # 0.6 (1.2-3.4); LYMPH % 9.7 % (22.0-35.0); MEAN CELL VOLUME 94.9 fl (80.0-105.0); MEAN CORPUSCULAR HGB CONC 31.6 g/dl (31.0-37.0); MEAN PLATELET VOLUME 10.8 fl (7.0-11.0); MONO # 0.6 (0.1-0.6); MONO % 9.8 % (1.0-6.0); RBC 3.5 10^6/uL (3.5-6.1); RED CELL DISTRIBUTION WIDTH 13.2 % (11.5-14.5); WHITE BLOOD COUNT 6.5 10^3/ul (4.5-11.0)
[2017-09-23 07:43] LABS: ALB/GLOB RATIO 1.4 (1.1-1.8); ALBUMIN 3.5 g/dL (3.0-4.8); ALT/SGPT 31 U/L (7-56); AST/SGOT 21 U/L (14-36); BLOOD UREA NITROGEN 24 mg/dL (7-21); CALCIUM 9.1 mg/dL (8.4-10.5); GFR AFRICAN-AMERICAN > 60; GFR NON-AFRICAN AMERICAN > 60
[2017-09-23] MEDS: Arformoterol 15 mcg/2 ml Inh Sol IH SCH ×3 (07:57→19:58)
[2017-09-23] MEDS: Budesonide 0.5 mg/2 ml Inhal Susp UD IH SCH ×2 (07:58→19:58)
[2017-09-23] MEDS: Levalbuterol 0.63 MG/3 ML Inhal Soln UD IH PRN (07:59)
--- NOTE | 2017-09-23 08:41 | PN ---
DATE: 09/23/2017 PULMONARY PROGRESS NOTE SUBJECTIVE: The patient appears comfortable this morning. She is not short of breath at rest. PHYSICAL EXAMINATION: VITAL SIGNS: Temperature is 98.1, pulse is 91, respirations are 18/20, and blood pressure is 127/72. Oxygen saturation on nasal cannula is 91%. HEENT: Normocephalic and atraumatic. No JVD. CARDIOVASCULAR: Systolic ejection murmur at the lower left sternal border. No S3 gallop. LUNGS: Clear bilaterally. EXTREMITIES: Positive for mild edema. No cyanosis and no clubbing. Calves are nontender to palpation. GASTROINTESTINAL: Abdomen is soft, nontender and nondistended. Bowel sounds are positive. SKIN: No acute rash. NEUROLOGIC: Exam is limited at the present time. IMPRESSION 1. Severe dizziness, frequent falls. 2. End-stage chronic obstructive pulmonary disease. 3. Severe pulmonary hypertension. 4. Coronary artery disease. 5. Anemia. PLAN: The patient appears comfortable this morning. She is not short of breath at rest. She does state to feeling a little better this morning. On physical exam, her lungs remain clear. I will continue the current pulmonary medications for now. I will also continue to hold the Adempas for now. The patient will need Intensive Physical Therapy input. Input by Cardiology (Dr. Echavarria) is noted. Clinical status of the patient does seem improved - compared to the initial presentation. However, the overall status/prognosis for this patient remains poor. I will discuss the above with Dr. Valentine. Evgeyn Briggs MD [email or web address]
--- NOTE | 2017-09-23 11:57 | CP.PCM.PN ---
Subjective - Date & Time of Evaluation Date of Evaluation: 09/23/17 Time of Evaluation: 09:50 - Subjective Subjective: Ferny Bullard PGY1 IM Progress Note for Dr. Valentine Service Patient was seen and examined at bedside. she continues to offer complaints of back pain and wrist pain as well as dizziness despite medical management. pt offered no other complaints or any acute overnight events. Objective - Vital Signs/Intake and Output Vital Signs (last 24 hours): Temp Pulse Resp BP Pulse Ox 98.1 F 91 H 21 127/72 91 L 09/23/17 06:00 09/23/17 06:00 09/23/17 06:00 09/23/17 06:00 09/23/17 06:00 - Medications Medications: Current Medications Arformoterol Tartrate (Brovana) 15 mcg IH BID [facility] Last Admin: 09/23/17 07:57 Dose: 15 mcg Aspirin (Ecotrin) 81 mg PO DAILY [facility] Last Admin: 09/23/17 11:52 Dose: 81 mg Atorvastatin Calcium (Lipitor) 10 mg PO DAILY [facility] Last Admin: 09/23/17 11:52 Dose: 10 mg Budesonide (Pulmicort Respules) 0.5 mg IH [id number] [facility] Last Admin: 09/23/17 07:58 Dose: 0.5 mg Calcium Carbonate (Caltrate) 600 mg PO DAILY [facility] Last Admin: 09/22/17 09:47 Dose: 600 mg Clopidogrel Bisulfate (Plavix) 75 mg PO DAILY [facility] Last Admin: 09/23/17 11:51 Dose: 75 mg Docusate Sodium (Colace) 100 mg PO DAILY [facility] Last Admin: 09/23/17 11:51 Dose: 100 mg Enoxaparin Sodium (Lovenox) 40 mg SC DAILY [facility] PRN Reason: Protocol Home Med (Home Med) 1 unit PO [id number] [facility] Home Med (Home Med) 1 unit PO BID [facility] Last Admin: 09/22/17 17:44 Dose: 1 unit Ceftriaxone Sodium (Rocephin 2 Gm Ivpb) 2 gm in 100 mls @ 100 mls/hr IVPB DAILY [facility] PRN Reason: Protocol Last Admin: 09/22/17 09:48 Dose: 100 mls/hr Levalbuterol HCl (Xopenex) 0.63 mg IH [id number] PRN PRN Reason: Shortness of Breath Last Admin: 09/23/17 07:59 Dose: 0.63 mg Morphine Sulfate (Morphine) 1 mg IVP Q4H PRN PRN Reason: Pain, severe (8-10) Last Admin: 09/23/17 05:06 Dose: 1 mg Ondansetron HCl (Zofran Inj) 4 mg IVP Q4H PRN PRN Reason: Nausea/Vomiting Last Admin: 09/23/17 05:08 Dose: 4 mg Sennosides (Senokot Tab) 17.2 mg PO HS [facility] Last Admin: 09/22/17 21:48 Dose: 17.2 mg Tiotropium [place] (Spiriva) 18 mcg IH DAILY [facility] Last Admin: 09/22/17 09:47 Dose: 18 mcg - Additional Findings Additional findings: - Constitutional Appears: No Acute Distress - Head Exam Head Exam: ATRAUMATIC, NORMAL INSPECTION, NORMOCEPHALIC - Eye Exam Eye Exam: EOMI, Normal appearance, PERRL Pupil Exam: NORMAL ACCOMODATION, PERRL - ENT Exam ENT Exam: Mucous Membranes Moist - Respiratory Exam Respiratory Exam: Clear to Auscultation Bilateral, NORMAL BREATHING PATTERN - Cardiovascular Exam Cardiovascular Exam: REGULAR RHYTHM, +S1, +S2 - GI/Abdominal Exam GI & Abdominal Exam: Normal Bowel Sounds, Soft. absent: Tenderness - Extremities Exam Extremities exam: Positive for: normal inspection Additional Comments: L wrist in long cast extending just distal to elbow - Back Exam Back exam: paraspinal tenderness - Neurological Exam Neurological exam: Alert, CN II-XII Intact, Oriented x3, Reflexes Normal - Psychiatric Exam Psychiatric exam: Normal Affect, Normal Mood - Skin Skin Exam: Dry, Intact, Normal Color, Warm Assessment and Plan - Assessment and Plan (Free Text) Assessment: 82 year old female with PMHx of CAD s/p stents, O2-dependent COPD, pulmonary HTN , HTN, HLD, emphysema, and osteoporosis admitted s/p fall, intractable low back pain and UTI Plan: 1. Dizziness and fall likely 2/2 medication side effect, associated low back pain - CTH negative for intracranial pathology - LS XR ordered, f/u - L wrist ordered - TSH wnl - orthostatics pending - Imaging negative for fractures - F/u Echo - Carotid US 20-39% stenosis in b/l ICA - pain mgmt: morphine 1mg q4 - PT/OT recommend AVIVA/HWS - Cardiology, Dr. Echavarria consulted, recs appreciated - Neurology, Dr. Grady consulted, recs appreciated - Ortho, Dr. Heaton consulted, recs appreciated 2. UTI - urine culture likely contaminated - f/u urine and blood C&S - Empiric Rocephin 3. Anemia - B12 low - B12 supplemented - likely 2/2 chronic disease 4. COPD - continue home nebulizers - maintain 02 sat > 88% - Pulm, Dr. Briggs consulted 5. Hx CAD s/p stents - Cardio Dr. Echavarria consulted, appreciate all recs - Continue ASA, plavix, and lipitor 6. Hypocalcemia with hx of osteoporosis - continue caltrate 7. GERD - protonix 40mg IV 8. HLD - lipitor 9. DVT and GI ppx - Lovenox/Pepcid HHD Patient was seen, examined and discussed with attending, Dr. Meme Bullard PGY1 Pager # [phone]
--- NOTE | 2017-09-23 12:05 | CON ---
DATE: 09/23/2017 CHIEF COMPLAINT: Dizziness and frequent falls. HISTORY OF PRESENT ILLNESS: This is an 82-year-old woman with history of coronary artery disease; COPD, oxygen dependent; pulmonary hypertension; dyslipidemia; hypertension; emphysema; osteoporosis; admitted for status post fall, intractable low back pain and UTI, found out that her dizziness and fall are likely secondary to her medication effect called Adempas, which she was using as well as underlying deconditioned state. Her MRI of the brain showed no acute intracranial abnormality, just chronic ischemic changes. Currently, she is doing much better. She is no longer dizzy. Pulmonary note reviewed and agreed with. Her Carotid Doppler shows 20-39% proximal ICA stenosis with antegrade flow in the vertebral arteries. Back pain is slightly much better. Could consider Baclofen 20 mg p.r.n. acute onset if needed. ALLERGIES: CODEINE, HYDROMORPHONE. PAST MEDICAL HISTORY: Coronary artery disease status post stents, COPD with O2 dependency, pulmonary hypertension, dyslipidemia, hypertension, emphysema, osteoporosis. REVIEW OF SYSTEMS: A 14-point review of systems is negative except as per the HPI. FAMILY HISTORY: Noncontributory. MEDICATIONS: Reviewed by nurse's reconciliation sheet. SOCIAL HISTORY: No illicit drug abuse, smoking, or EtOH abuse. PHYSICAL EXAMINATION: VITAL SIGNS: Temperature 98.1, pulse rate of 91, blood pressure of 127/72, respiratory rate 20, oxygen saturation 91% by nasal cannula. GENERAL: The patient is sitting up in bed, in no acute distress. HEENT: Head is atraumatic and normocephalic. PERRLA. Extraocular muscles intact. NECK: Supple. No JVD. No adenopathy noted. LUNGS: Clear to auscultation. No adventitious sounds. HEART: S1 and S2, normal rate and rhythm. Has left ejection systolic murmur. ABDOMEN: Soft, nontender, nondistended. Bowel sounds are present. EXTREMITIES: No clubbing, no cyanosis. Peripheral pulses 2+ bilaterally. NEUROLOGIC: The patient is alert, oriented to person, place, month, and year. Recall after 5 minutes is 0 out of 3. Poor attention span. Slow thought process. Cranial nerves II through XII intact. Motor exam, moves all extremities equally. Toes downgoing bilaterally. Sensory exam: Light touch, pinprick, proprioception decreased up to the calves bilaterally, decreased vibration of the toes. DTRs are 1+ throughout the ankles. Coordination: [id number] intact. Gait is deferred for now. LABORATORY DATA: Sodium 137, potassium 4.5, chloride 98, carbon dioxide is 29, BUN of 24, creatinine of 0.9. Random glucose 106. MRI of the brain showed no acute intracranial abnormality. ASSESSMENT AND PLAN: This is an 82-year-old woman with past medical history of coronary artery disease status post stents; chronic obstructive pulmonary disease, severe, on oxygen dependent; severe pulmonary hypertension; hyperlipidemia; hypertension; emphysema; osteoporosis; admitted for fall followed by intractable low back pain and dizziness. Dizziness is likely secondary to medication side effect of Adempas and her fall secondary to underlying deconditioned state, which led to the low back pain, which is musculoskeletal in origin. The carotid Doppler showed no significant stenosis except for 20-39% proximal internal carotid artery, perhaps, good antegrade flow of the vertebral arteries. She had a low B12 level of 221, which she is being given IM injection of B12. At this time, I recommend: 1. Orthostatic vital signs. 2. B12 supplementation. 3. PT, OT and likely subacute rehab for underlying deconditioned state and reconditioning. 4. Continue pulmonary medications for underlying severe pulmonary hypertension. 5. Correct any electrolytes if needed. Once again, thank you for this consult. She is clinically stable from neurological standpoint. Juan Grady MD
--- NOTE | 2017-09-23 13:03 | PN ---
DATE: 09/23/2017 CARDIOLOGY FOLLOWUP NOTE SUBJECTIVE: The patient's dizziness is resolved. PHYSICAL EXAMINATION: VITAL SIGNS: Blood pressure is 127/72 with the heart rate is in the 90s. NECK: Negative JVD. LUNGS: Without rales. HEART: Reveals S1 and S2. Extremities: Without edema. LABORATORY DATA: Hemoglobin is 10.5 and BUN and creatinine unremarkable. IMPRESSION 1. Recurrent falls. 2. Severe chronic obstructive pulmonary disease. 3. Coronary artery disease. 4. Stable angina. 5. Mild pulmonary hypertension. PLAN: Given these findings, there are no cardiac arrhythmias. The patient's cardiac status is stable. We will DC telemetry today. The patient would benefit from physical therapy intervention. Harrison Echavarria MD
--- NOTE | 2017-09-23 16:33 | CARD ---
APPROVED REPORT EXAM: Two-dimensional and M-mode echocardiogram with Doppler and color Doppler. INDICATION Syncope 2D DIMENSIONS Left Atrium (2D)3.0 (1.6-4.0cm)IVSd1.2 (0.7-1.1cm) LVDd3.3 (3.9-5.9cm)PWd1.1 (0.7-1.1cm) LVDs2.4 (2.5-4.0cm)FS (%) 26.3 % LVEF (%)52.8 (>50%) M-Mode DIMENSIONS Aortic Root3.20 (2.2-3.7cm)Aortic Cusp Exc.1.60 (1.5-2.0cm) Aortic Valve AoV Peak Enckayel060.0cm/Lay Peak GR.6mmHg Mitral Valve MV E Dkobedhe36.1cm/sMV A Suvdcssv232.0cm/sE/A ratio0.5 TDI E/Lateral E'0.0E/Medial E'0.0 Tricuspid Valve TR Peak Pngdxwzv210dq/sRAP [id number] Peak Gr.55mmHg [id number] LEFT VENTRICLE The left ventricle is normal size. There is borderline to mild concentric left ventricular hypertrophy. The left ventricular function is normal.EF-55% There is normal LV segmental wall motion. Transmitral Doppler flow pattern is Grade III-reversible restrictive diastolic dysfunction. No left ventricle thrombus noted on this study. There is no ventricular septal defect visualized. There is no left ventricular aneurysm. There is no mass noted in the left ventricle. RIGHT VENTRICLE The right ventricle is mildly dilated. There is normal right ventricular wall thickness. The right ventricular systolic function is normal. ATRIA The left atrium size is normal. The right atrium is mildly dilated. The interatrial septum is intact with no evidence for an atrial septal defect. AORTIC VALVE The aortic valve is thickened but opens well. The aortic valve is mildly to moderately sclerotic. There is mild aortic regurgitation. There is no aortic valvular stenosis. There is no aortic valvular vegetation. MITRAL VALVE The mitral valve is thickened but opens well. Mitral regurgitation is trace. There is no mitral valve stenosis. There is no evidence of mitral valve prolapse. TRICUSPID VALVE The tricuspid valve leaflets are thickened , but open well. There is moderate tricuspid regurgitation.RVSP-65 mm of Hg. There is no tricuspid valve stenosis. There is no tricuspid valve prolapse or vegetation. PULMONIC VALVE The pulmonary valve is normal in structure. There is trace to mild pulmonic valvular regurgitation. There is no pulmonic valvular stenosis. GREAT VESSELS The aortic root is normal in size. The ascending aorta is normal in size. The pulmonary artery is normal. The IVC is normal in size and collapses >50% with inspiration. PERICARDIAL EFFUSION There is no pleural effusion. There is no pericardial effusion. <Conclusion> The left ventricle is normal size. There is borderline to mild concentric left ventricular hypertrophy. The left ventricular function is normal.EF-55% There is mild aortic regurgitation. Mitral regurgitation is trace. There is moderate tricuspid regurgitation.RVSP-65 mm of Hg. The IVC is normal in size and collapses >50% with inspiration. There is no pericardial effusion. No Vegetation or thrombus.
[2017-09-23] MEDS: cefTRIAXone 2 GM IN NS 2 GM/100 ML BAG IVPB SCH (18:28)
--- NOTE | 2017-09-23 18:59 | CON ---
DATE: 09/26/2017 An 82-year-old female in room 377, bed 1. HISTORY OF PRESENT ILLNESS: The patient was admitted to Dr. Valentine' service for medical reasons of dizziness and frequent falls and was admitted with a coaptation cast of her left upper extremity. X-rays show that she has a mildly displaced left distal radius fracture. The date of accident at that time was 09/13/2017 and has a well-padded and contoured coaptation cast of the left wrist fracture, mildly displaced. I will get a new x-ray of the wrist. The plan was not to change her for 10 days to 2 weeks, so if the position is so good, we will keep it on now. We will have to re-evaluate her, and If possible, new cast put on. I would like to do while she is in still in the hospital. FINAL DIAGNOSIS: Recent left distal radius fracture from 09/13/2017. She is in a good cast right now. PLAN: We will repeat the x-ray and decide what to do after the next x-ray comes. Tal Heaton DO
[2017-09-23] MEDS: Tiotropium 18 mcg Cap For Inhalation IH SCH (19:50)
[2017-09-24] MEDS: Sodium Chloride 0.9% 500 ML IV SCH ×2 (00:09→16:02)
[2017-09-24] MEDS: Morphine 2 mg/ml ISec IVP PRN ×3 (05:50→22:14)
[2017-09-24] MEDS: Arformoterol 15 mcg/2 ml Inh Sol IH SCH ×4 (08:13→20:47)
[2017-09-24] MEDS: Budesonide 0.5 mg/2 ml Inhal Susp UD IH SCH ×2 (08:13→20:47)
--- NOTE | 2017-09-24 08:29 | PN ---
DATE: 09/24/2017 PULMONARY PROGRESS NOTE SUBJECTIVE: The patient appears comfortable this morning. She is not short of breath at rest. PHYSICAL EXAMINATION: VITAL SIGNS: Temperature is 98.8, pulse is 86, respirations are 18, and blood pressure is 113/56. Oxygen saturation on nasal cannula is 94%. HEENT: Normocephalic and atraumatic. NECK: No JVD. CARDIOVASCULAR: Systolic ejection murmur at the lower left sternal border. No S3 gallop. LUNGS: Clear bilaterally. EXTREMITIES: Positive for mild edema. No cyanosis or clubbing. Calves are nontender to palpation. GASTROINTESTINAL: Abdomen is soft, nontender and nondistended. Bowel sounds are positive. SKIN: No acute rash. NEUROLOGIC: Exam is limited at the present time. IMPRESSION 1. Severe dizziness, frequent falls. 2. End-stage chronic obstructive pulmonary disease. 3. Severe pulmonary hypertension. 4. Coronary artery disease. 5. Anemia. PLAN: The patient appears comfortable this morning. She is not short of breath at rest. She does state to feeling better overall. On physical exam, her lungs remain clear. Oxygen saturation is 94% on nasal cannula. I will continue the current nebulizer treatments and inhaled steroids for now. Inputs by Cardiology and Neurology are noted. The Adempas remains on hold. I have also ordered a Physical Therapy consultation for this patient this morning. Clinical status for the patient is somewhat improved - compared to the initial presentation. However, the future/overall prognosis/outlook for this patient remains poor. I did discuss the case at length with Dr. Valentine yesterday. I will discuss the case with the attending physician this morning. Evgeny Briggs MD JOSE[facility]
[2017-09-24 08:47] LABS: BASO # 0.02 K/mm3 (0.0-2.0); BASO % 0.4 % (0.0-3.0); EOS # 0.3 (0.0-0.7); EOS % 5.4 % (1.5-5.0); GRAN # 3.21 (1.4-6.5); GRAN % 66.7 % (50.0-68.0); LYMPH # 0.7 (1.2-3.4); LYMPH % 15.4 % (22.0-35.0); MEAN CELL VOLUME 95.2 fl (80.0-105.0); MEAN CORPUSCULAR HEMOGLOBIN 30.3 pg (25.0-35.0); MEAN CORPUSCULAR HGB CONC 31.8 g/dl (31.0-37.0); MEAN PLATELET VOLUME 10.6 fl (7.0-11.0); MONO # 0.6 (0.1-0.6); MONO % 12.1 % (1.0-6.0); RBC 3.3 10^6/uL (3.5-6.1); RED CELL DISTRIBUTION WIDTH 13.1 % (11.5-14.5); WHITE BLOOD COUNT 4.8 10^3/ul (4.5-11.0)
[2017-09-24 09:00] LABS: ALB/GLOB RATIO 1.3 (1.1-1.8); ALBUMIN 3.3 g/dL (3.0-4.8); ALT/SGPT 31 U/L (7-56); AST/SGOT 21 U/L (14-36); BLOOD UREA NITROGEN 29 mg/dL (7-21); CALCIUM 8.9 mg/dL (8.4-10.5); GFR AFRICAN-AMERICAN > 60; GFR NON-AFRICAN AMERICAN > 60
[2017-09-24] MEDS: Tiotropium 18 mcg Cap For Inhalation IH SCH (09:21)
[2017-09-24] MEDS: cefTRIAXone 2 GM IN NS 2 GM/100 ML BAG IVPB SCH (09:23)
[2017-09-24] MEDS: Enoxaparin 40 mg Syringe SC SCH (09:33)
--- NOTE | 2017-09-24 11:44 | PN ---
DATE: 09/24/2017 UPDATED REPORT ROOM: 567 bed 1 The patient had the left wrist fracture on 09/13/2017. She is still in the coaptation splint and will change it once a new x-ray is done. She needs another manipulation so I will change the cast on the left wrist when she gets an updated x-ray, which I ordered yesterday. Tal Heaton DO
--- NOTE | 2017-09-24 11:46 | CARD ---
APPROVED REPORT EKG Measurement Heart [id number] <Conclusion> Normal sinus rhythm Possible Left atrial enlargement Nonspecific ST and T wave abnormality Abnormal ECG
--- NOTE | 2017-09-24 12:49 | CP.PCM.PN ---
<Jay Garber - Last Filed: 09/24/17 14:00> Subjective - Date & Time of Evaluation Date of Evaluation: 09/24/17 Time of Evaluation: 08:00 - Subjective Subjective: Dr. Valentine Service Pt was seen and examined at bedside. Pt has mild complaint of low back pain. As per nursing staff, pt had complaints of transient chest discomfort that resolved shortly after repositioning. Pt also had a fever overnight, tylenol was ordered. Pt denied chills, headache, sob, abdominal pains, n/v/d/c or urinary symptoms. Pt has left cast in place. Objective - Vital Signs/Intake and Output Vital Signs (last 24 hours): Temp Pulse Resp BP Pulse Ox 97.8 F 78 16 110/55 L 95 09/24/17 07:30 09/24/17 07:30 09/24/17 07:30 09/24/17 07:30 09/24/17 07:30 Intake and Output: 09/24/17 09/24/17 06:59 18:59 Intake Total 600 Balance 600 - Medications Medications: Current Medications Arformoterol Tartrate (Brovana) 15 mcg IH BID [facility] Last Admin: 09/24/17 08:13 Dose: 15 mcg Aspirin (Ecotrin) 81 mg PO DAILY [facility] Last Admin: 09/24/17 09:21 Dose: 81 mg Atorvastatin Calcium (Lipitor) 10 mg PO DAILY [facility] Last Admin: 09/24/17 09:21 Dose: 10 mg Budesonide (Pulmicort Respules) 0.5 mg IH [id number] [facility] Last Admin: 09/24/17 08:13 Dose: 0.5 mg Calcium Carbonate (Caltrate) 600 mg PO DAILY [facility] Last Admin: 09/24/17 09:21 Dose: 600 mg Clopidogrel Bisulfate (Plavix) 75 mg PO DAILY [facility] Last Admin: 09/24/17 09:21 Dose: 75 mg Docusate Sodium (Colace) 100 mg PO DAILY [facility] Last Admin: 09/24/17 09:21 Dose: 100 mg Enoxaparin Sodium (Lovenox) 40 mg SC DAILY [facility] PRN Reason: Protocol Last Admin: 09/24/17 09:33 Dose: 40 mg Famotidine (Pepcid) 40 mg PO HS [facility] Last Admin: 09/23/17 22:58 Dose: Not Given Home Med (Home Med) 1 unit PO [id number] [facility] Home Med (Home Med) 1 unit PO BID [facility] Last Admin: 09/24/17 09:20 Dose: 1 unit Ceftriaxone Sodium (Rocephin 2 Gm Ivpb) 2 gm in 100 mls @ 100 mls/hr IVPB DAILY [facility] PRN Reason: Protocol Last Admin: 09/24/17 09:23 Dose: 100 mls/hr Sodium Chloride (Sodium Chloride 0.9%) 500 mls @ 100 mls/hr IV .Q5H [facility] Last Admin: 09/24/17 00:09 Dose: 100 mls/hr Levalbuterol HCl (Xopenex) 0.63 mg IH [id number] PRN PRN Reason: Shortness of Breath Last Admin: 09/23/17 07:59 Dose: 0.63 mg Morphine Sulfate (Morphine) 1 mg IVP Q4H PRN PRN Reason: Pain, severe (8-10) Last Admin: 09/24/17 10:11 Dose: 1 mg Ondansetron HCl (Zofran Inj) 4 mg IVP Q4H PRN PRN Reason: Nausea/Vomiting Last Admin: 09/24/17 10:18 Dose: 4 mg Sennosides (Senokot Tab) 17.2 mg PO HS [facility] Last Admin: 09/23/17 22:58 Dose: Not Given Tiotropium [place] (Spiriva) 18 mcg IH DAILY [facility] Last Admin: 09/24/17 09:21 Dose: 18 mcg - Labs Labs: 09/24/17 08:35 09/24/17 08:35 - Constitutional Appears: No Acute Distress - Head Exam Head Exam: ATRAUMATIC, NORMAL INSPECTION, NORMOCEPHALIC - Eye Exam Eye Exam: EOMI, Normal appearance, PERRL Pupil Exam: NORMAL ACCOMODATION, PERRL - ENT Exam ENT Exam: Mucous Membranes Moist, Normal Exam - Neck Exam Neck Exam: Full ROM, Normal Inspection. absent: Lymphadenopathy - Respiratory Exam Respiratory Exam: Clear to Ausculation Bilateral, NORMAL BREATHING PATTERN - Cardiovascular Exam Cardiovascular Exam: REGULAR RHYTHM, +S1, +S2. absent: Murmur - GI/Abdominal Exam GI & Abdominal Exam: Soft, Normal Bowel Sounds. absent: Tenderness - Extremities Exam Extremities Exam: Pedal Edema (+1) - Back Exam Back Exam: NORMAL INSPECTION - Neurological Exam Neurological Exam: Alert, Awake, CN II-XII Intact, Oriented x3 - Psychiatric Exam Psychiatric exam: Normal Affect, Normal Mood - Skin Skin Exam: Dry, Intact, Normal Color, Warm Assessment and Plan - Assessment and Plan (Free Text) Assessment: 82 F with PMHx of CAD s/p stents, O2-dependent COPD, pulmonary HTN, HTN, HLD, emphysema, and osteoporosis admitted s/p fall, intractable low back pain and UTI 1. Dizziness and fall likely 2/2 medication side effect, associated low back pain - CTH negative for intracranial pathology - LS XR ordered, f/u - L wrist ordered, ortho consulted, Dr. Mills, consider re-casting left wrist pending XR - TSH wnl - orthostatics negative - Imaging negative for fractures - Echo EF 53% - Carotid US 20-39% stenosis in b/l ICA - pain mgmt: morphine 1mg q4 - PT/OT recommend AVIVA/HWS - Cardiology, Dr. Echavarria consulted, recs appreciated - Neurology, Dr. Grady consulted, recs appreciated - Ortho, Dr. Heaton consulted, recs appreciated 2. UTI - Fever overnight, 100.4, tylenol prn - fu repeat urine and blood C&S, and CXR - Levaquin 3. Anemia - B12 low - B12 supplemented - likely 2/2 chronic disease 4. COPD - continue nebulizers - maintain 02 sat > 88% - Pulm, Dr. Briggs consulted, spiriva, xopenex and pulmicort 5. Hx CAD s/p stents - Cardio Dr. Echavarria consulted, appreciate all recs - Continue ASA, plavix, and lipitor 6. Hypocalcemia with hx of osteoporosis - continue caltrate 7. GERD - protonix 40mg IV 8. HLD - lipitor 9. DVT and GI ppx - Lovenox/Pepcid HHD Patient was seen, examined and discussed with attending, Dr. Wheeler <Nigel Wheeler - Last Filed: 09/25/17 07:35> Objective - Vital Signs/Intake and Output Vital Signs (last 24 hours): Temp Pulse Resp BP Pulse Ox 97.9 F 104 H 20 118/72 90 L 09/25/17 03:00 09/25/17 03:00 09/25/17 03:00 09/25/17 03:00 09/25/17 03:00 Intake and Output: 09/25/17 09/25/17 06:59 18:59 Intake Total 2500 Balance 2500 - Medications Medications: Current Medications Arformoterol Tartrate (Brovana) 15 mcg IH BID [facility] Last Admin: 09/24/17 20:47 Dose: 15 mcg Aspirin (Ecotrin) 81 mg PO DAILY [facility] Last Admin: 09/24/17 09:21 Dose: 81 mg Atorvastatin Calcium (Lipitor) 10 mg PO DAILY [facility] Last Admin: 09/24/17 09:21 Dose: 10 mg Budesonide (Pulmicort Respules) 0.5 mg IH [id number] [facility] Last Admin: 09/24/17 20:47 Dose: 0.5 mg Calcium Carbonate (Caltrate) 600 mg PO DAILY [facility] Last Admin: 09/24/17 09:21 Dose: 600 mg Clopidogrel Bisulfate (Plavix) 75 mg PO DAILY [facility] Last Admin: 09/24/17 09:21 Dose: 75 mg Docusate Sodium (Colace) 100 mg PO DAILY [facility] Last Admin: 09/24/17 09:21 Dose: 100 mg Enoxaparin Sodium (Lovenox) 40 mg SC DAILY [facility] PRN Reason: Protocol Last Admin: 09/24/17 09:33 Dose: 40 mg Famotidine (Pepcid) 40 mg PO HS [facility] Last Admin: 09/24/17 21:45 Dose: 40 mg Home Med (Home Med) 1 unit PO [id number] [facility] Home Med (Home Med) 1 unit PO Q12 [facility] Last Admin: 09/24/17 21:44 Dose: 1 unit Sodium Chloride (Sodium Chloride 0.9%) 500 mls @ 100 mls/hr IV .Q5H [facility] Last Admin: 09/25/17 02:07 Dose: 100 mls/hr Levalbuterol HCl (Xopenex) 0.63 mg IH [id number] PRN PRN Reason: Shortness of Breath Last Admin: 09/23/17 07:59 Dose: 0.63 mg Levofloxacin/Dextrose (Levaquin 750mg) 750 mg IVPB DAILY [facility] Last Admin: 09/24/17 14:48 Dose: 750 mg Lidocaine (Lidoderm) 1 ea TD DAILY [facility] Last Admin: 09/24/17 17:08 Dose: 1 ea Morphine Sulfate (Morphine) 1 mg IVP Q4H PRN PRN Reason: Pain, severe (8-10) Last Admin: 09/24/17 22:14 Dose: 1 mg Ondansetron HCl (Zofran Inj) 4 mg IVP Q4H PRN PRN Reason: Nausea/Vomiting Last Admin: 09/24/17 22:17 Dose: 4 mg Polyethylene Glycol (Miralax) 17 gm PO BID [facility] Last Admin: 09/24/17 17:08 Dose: 17 gm Sennosides (Senokot Tab) 17.2 mg PO HS [facility] Last Admin: 09/24/17 21:45 Dose: 17.2 mg Tiotropium [place] (Spiriva) 18 mcg IH DAILY [facility] Last Admin: 09/24/17 09:21 Dose: 18 mcg - Labs Labs: 09/25/17 06:00 09/24/17 08:35 Assessment and Plan - Assessment and Plan (Free Text) Plan: discussed w/ resident at length went over meds labs tests xrays plans orders consults reviewed
[2017-09-24] MEDS: levoFLOXacin 750 mg in D5W 150 ML BAG IVPB SCH (14:48)
[2017-09-24] MEDS: Lidocaine 5% Patch TD SCH (17:08)
[2017-09-24] MEDS: POLYETHYLENE GLYCOL 3350 17 GM/Dose PACKET PO SCH (17:08)
[2017-09-25] MEDS: Sodium Chloride 0.9% 500 ML IV SCH ×2 (02:07→23:36)
--- NOTE | 2017-09-25 07:02 | PN ---
DATE: 09/25/2017 PULMONARY NOTE SUBJECTIVE: The patient appears comfortable this morning. She is not short of breath at rest. She remains weak. PHYSICAL EXAMINATION: VITAL SIGNS: Temperature is 97.9, pulse 104, respirations 18, blood pressure 118/72. Oxygen saturation on nasal cannula is 90-95%. HEENT: Normocephalic, atraumatic. NECK: No JVD. CARDIOVASCULAR: Systolic ejection murmur at the lower left sternal border. No S3 gallop. LUNGS: Clear bilaterally. EXTREMITIES: Positive for mild edema. No cyanosis, no clubbing. Calves are nontender to palpation. GI: Abdomen is soft, nontender and nondistended. Bowel sounds are positive. SKIN: No acute rash. NEUROLOGIC: Exam limited at the present time. IMPRESSION: 1. Severe dizziness, frequent falls. 2. End-stage chronic obstructive pulmonary disease. 3. Severe pulmonary hypertension. 4. Coronary artery disease. 5. Anemia. PLAN: The patient appears comfortable this morning. She is not short of breath at rest. She does state to not feeling well, as she continues to have severe dizziness. Important to note, the patient is now OFF the Adempas. On physical exam, no significant bronchospasm is noted. I will continue with the current pulmonary medications for now. The patient is also on antibiotic therapy at the present time. There are no temperatures documented in the current vitals notes. There is no leukocytosis. I would continue with the Cardiology and Neurologic evaluations. Inputs are noted. Overall status/prognosis for this patient, unfortunately ,remains poor. I will discuss the above with the attending physician later this morning. Evgeny Briggs MD MTDD
[2017-09-25 07:05] LABS: HEMOGLOBIN 8.7 g/dL (12.0-16.0); MEAN CELL VOLUME 94.4 fl (80.0-105.0); MEAN CORPUSCULAR HEMOGLOBIN 30.2 pg (25.0-35.0); MEAN PLATELET VOLUME 10.9 fl (7.0-11.0); RBC 2.88 10^6/uL (3.5-6.1); RED CELL DISTRIBUTION WIDTH 13.2 % (11.5-14.5); WHITE BLOOD COUNT 3.7 10^3/ul (4.5-11.0)
[2017-09-25 07:36] LABS: ALB/GLOB RATIO 1.2 (1.1-1.8); ALBUMIN 2.8 g/dL (3.0-4.8); ALT/SGPT 31 U/L (7-56); AST/SGOT 24 U/L (14-36); BLOOD UREA NITROGEN 25 mg/dL (7-21); CALCIUM 8.4 mg/dL (8.4-10.5); GFR AFRICAN-AMERICAN > 60; GFR NON-AFRICAN AMERICAN > 60
[2017-09-25] MEDS: Budesonide 0.5 mg/2 ml Inhal Susp UD IH SCH ×3 (07:54→19:11)
[2017-09-25] MEDS: Arformoterol 15 mcg/2 ml Inh Sol IH SCH ×3 (07:54→17:56)
--- NOTE | 2017-09-25 08:10 | RAD ---
PROCEDURE: Radiographs of the Lumbar Spine. HISTORY: back pain s/p fall COMPARISON: No prior. FINDINGS: BONES: T12 moderate wedge compression fracture of indeterminate age. DISC SPACES: Unremarkable. OTHER FINDINGS: None. IMPRESSION: T12 moderate wedge compression fracture of indeterminate age.
--- NOTE | 2017-09-25 08:11 | RAD ---
HISTORY: fever COMPARISON: No prior. FINDINGS: LUNGS: Diffuse bilateral fibrotic changes. PLEURA: No significant pleural effusion identified, no pneumothorax apparent. CARDIOVASCULAR: Normal. OSSEOUS STRUCTURES: No significant abnormalities. VISUALIZED UPPER ABDOMEN: Normal. OTHER FINDINGS: None. IMPRESSION: Diffuse bilateral fibrotic changes.
--- NOTE | 2017-09-25 08:23 | RAD ---
HISTORY: lt wrist fx COMPARISON: No prior FINDINGS: BONES: Cast obscures bone detail. Impaction fracture distal radius. JOINTS: Normal. No osteoarthritis. SOFT TISSUE: Normal. OTHER FINDINGS: None . IMPRESSION: Cast obscures bone detail. Impaction fracture distal radius.
[2017-09-25] MEDS: Morphine 2 mg/ml ISec IVP PRN ×2 (08:49→13:25)
[2017-09-25] MEDS: levoFLOXacin 750 mg in D5W 150 ML BAG IVPB SCH (11:06)
[2017-09-25] MEDS: Lidocaine 5% Patch TD SCH (11:07)
[2017-09-25] MEDS: Tiotropium 18 mcg Cap For Inhalation IH SCH (11:08)
[2017-09-25] MEDS: POLYETHYLENE GLYCOL 3350 17 GM/Dose PACKET PO SCH ×3 (11:10→18:56)
[2017-09-25] MEDS: Enoxaparin 40 mg Syringe SC SCH ×2 (11:10→11:24)
--- NOTE | 2017-09-25 11:52 | CP.PCM.PN ---
<Jay Garber - Last Filed: 09/25/17 11:47> Subjective - Date & Time of Evaluation Date of Evaluation: 09/25/17 Time of Evaluation: 09:10 - Subjective Subjective: Dr. Valentine Service Pt was seen and examined at bedside. Pt found to be resting comfortably. Pt has no complaints at this time. She does not report any further episodes of dizziness. She is tolerating po intake. Pt denied chills, headache, sob, abdominal pains, n/v/d/c or urinary symptoms. Pt has left cast removed, splint in place, mild pain. Objective - Vital Signs/Intake and Output Vital Signs (last 24 hours): Temp Pulse Resp BP Pulse Ox 97.9 F 104 H 20 118/72 90 L 09/25/17 03:00 09/25/17 03:00 09/25/17 03:00 09/25/17 03:00 09/25/17 03:00 Intake and Output: 09/25/17 09/25/17 06:59 18:59 Intake Total 2500 Balance 2500 - Medications Medications: Current Medications Arformoterol Tartrate (Brovana) 15 mcg IH BID [facility] Last Admin: 09/25/17 07:54 Dose: 15 mcg Aspirin (Ecotrin) 81 mg PO DAILY [facility] Last Admin: 09/25/17 11:06 Dose: 81 mg Atorvastatin Calcium (Lipitor) 10 mg PO DAILY [facility] Last Admin: 09/25/17 11:12 Dose: 10 mg Budesonide (Pulmicort Respules) 0.5 mg IH [id number] [facility] Last Admin: 09/25/17 07:54 Dose: 0.5 mg Calcium Carbonate (Caltrate) 600 mg PO DAILY [facility] Last Admin: 09/25/17 11:05 Dose: 600 mg Clopidogrel Bisulfate (Plavix) 75 mg PO DAILY [facility] Last Admin: 09/25/17 11:08 Dose: 75 mg Docusate Sodium (Colace) 100 mg PO DAILY [facility] Last Admin: 09/25/17 11:05 Dose: 100 mg Enoxaparin Sodium (Lovenox) 40 mg SC DAILY [facility] PRN Reason: Protocol Last Admin: 09/24/17 09:33 Dose: 40 mg Famotidine (Pepcid) 40 mg PO HS [facility] Last Admin: 09/24/17 21:45 Dose: 40 mg Home Med (Home Med) 1 unit PO [id number] [facility] Home Med (Home Med) 1 unit PO Q12 [facility] Last Admin: 09/25/17 10:55 Dose: 1 unit Sodium Chloride (Sodium Chloride 0.9%) 500 mls @ 100 mls/hr IV .Q5H [facility] Last Admin: 09/25/17 02:07 Dose: 100 mls/hr Levalbuterol HCl (Xopenex) 0.63 mg IH [id number] PRN PRN Reason: Shortness of Breath Last Admin: 09/23/17 07:59 Dose: 0.63 mg Levofloxacin/Dextrose (Levaquin 750mg) 750 mg IVPB DAILY [facility] Last Admin: 09/25/17 11:06 Dose: 750 mg Lidocaine (Lidoderm) 1 ea TD DAILY [facility] Last Admin: 09/25/17 11:07 Dose: 1 ea Morphine Sulfate (Morphine) 1 mg IVP Q4H PRN PRN Reason: Pain, severe (8-10) Last Admin: 09/25/17 08:49 Dose: 1 mg Ondansetron HCl (Zofran Inj) 4 mg IVP Q4H PRN PRN Reason: Nausea/Vomiting Last Admin: 09/25/17 09:10 Dose: 4 mg Polyethylene Glycol (Miralax) 17 gm PO BID [facility] Last Admin: 09/25/17 11:10 Dose: 17 gm Sennosides (Senokot Tab) 17.2 mg PO HS [facility] Last Admin: 09/24/17 21:45 Dose: 17.2 mg Tiotropium [place] (Spiriva) 18 mcg IH DAILY [facility] Last Admin: 09/25/17 11:08 Dose: 18 mcg - Labs Labs: 09/25/17 06:00 09/25/17 06:00 - Constitutional Appears: No Acute Distress - Head Exam Head Exam: ATRAUMATIC, NORMAL INSPECTION, NORMOCEPHALIC - Eye Exam Eye Exam: EOMI, Normal appearance, PERRL Pupil Exam: NORMAL ACCOMODATION, PERRL - ENT Exam ENT Exam: Mucous Membranes Moist, Normal Exam - Respiratory Exam Respiratory Exam: Clear to Ausculation Bilateral, NORMAL BREATHING PATTERN - Cardiovascular Exam Cardiovascular Exam: REGULAR RHYTHM, +S1, +S2. absent: Murmur - GI/Abdominal Exam GI & Abdominal Exam: Soft, Normal Bowel Sounds. absent: Tenderness - Extremities Exam Extremities Exam: Pedal Edema (+1) - Neurological Exam Neurological Exam: Alert, Awake, CN II-XII Intact, Oriented x3 - Psychiatric Exam Psychiatric exam: Normal Affect, Normal Mood - Skin Skin Exam: Dry, Intact, Normal Color, Warm Assessment and Plan - Assessment and Plan (Free Text) Assessment: 82 F with PMHx of CAD s/p stents, O2-dependent COPD, pulmonary HTN, HTN, HLD, emphysema, and osteoporosis admitted s/p fall, intractable low back pain and UTI 1. Dizziness and fall likely 2/2 medication side effect, associated low back pain - CTH negative for intracranial pathology - LS XR ordered, f/u - L wrist ordered, ortho consulted, Dr. Mills, cast removed, splint in place - TSH wnl - orthostatics negative, holding adempas, will discuss alternative medication - Imaging negative for fractures - Echo EF 53% - Carotid US 20-39% stenosis in b/l ICA - pain mgmt: morphine 1mg q4, lododerm patch, will have pt OOB - PT/OT recommend AVIVA/HWS - Cardiology, Dr. Echavarria consulted, recs appreciated - Neurology, Dr. Grady consulted, recs appreciated - Ortho, Dr. Heaton consulted, recs appreciated 2. UTI - afebrile x 24hr - Fu cultures CXR - Levaquin 3. Anemia - B12 low - B12 supplemented - likely 2/2 chronic disease - will transfuse 1u pRBCs 4. COPD - continue nebulizers - maintain 02 sat > 88% - Pulm, Dr. Briggs consulted, spiriva, xopenex and pulmicort 5. Hx CAD s/p stents - Cardio Dr. Echavarria consulted, appreciate all recs - Continue ASA, plavix, and lipitor 6. Hypocalcemia with hx of osteoporosis - continue caltrate 7. GERD - protonix 40mg IV 8. HLD - lipitor 9. DVT and GI ppx - Lovenox/Pepcid HHD Patient was seen, examined and discussed with attending, Dr. Wheeler <Nigel Wheeler - Last Filed: 09/26/17 06:52> Objective - Vital Signs/Intake and Output Vital Signs (last 24 hours): Temp Pulse Resp BP Pulse Ox 99.6 F 68 18 125/74 98 09/25/17 16:30 09/26/17 00:00 09/26/17 00:00 09/26/17 00:00 09/26/17 00:00 Intake and Output: 09/25/17 09/26/17 18:59 06:59 Intake Total 360 300 Balance 360 300 - Medications Medications: Current Medications Arformoterol Tartrate (Brovana) 15 mcg IH BID [facility] Last Admin: 09/25/17 17:56 Dose: 15 mcg Aspirin (Ecotrin) 81 mg PO DAILY [facility] Last Admin: 09/25/17 11:06 Dose: 81 mg Atorvastatin Calcium (Lipitor) 10 mg PO DAILY [facility] Last Admin: 09/25/17 11:12 Dose: 10 mg Budesonide (Pulmicort Respules) 0.5 mg IH [id number] [facility] Last Admin: 09/25/17 19:11 Dose: Not Given Calcium Carbonate (Caltrate) 600 mg PO DAILY [facility] Last Admin: 09/25/17 11:05 Dose: 600 mg Clopidogrel Bisulfate (Plavix) 75 mg PO DAILY [facility] Last Admin: 09/25/17 11:08 Dose: 75 mg Docusate Sodium (Colace) 100 mg PO DAILY [facility] Last Admin: 09/25/17 11:05 Dose: 100 mg Enoxaparin Sodium (Lovenox) 40 mg SC DAILY [facility] PRN Reason: Protocol Last Admin: 09/25/17 11:24 Dose: Not Given Famotidine (Pepcid) 40 mg PO HS [facility] Last Admin: 09/25/17 23:01 Dose: Not Given Home Med (Home Med) 1 unit PO [id number] [facility] Home Med (Home Med) 1 unit PO Q12 [facility] Last Admin: 09/25/17 23:01 Dose: Not Given Sodium Chloride (Sodium Chloride 0.9%) 500 mls @ 100 mls/hr IV .Q5H [facility] Last Admin: 09/25/17 23:36 Dose: 100 mls/hr Levalbuterol HCl (Xopenex) 0.63 mg IH [id number] PRN PRN Reason: Shortness of Breath Last Admin: 09/23/17 07:59 Dose: 0.63 mg Levofloxacin/Dextrose (Levaquin 750mg) 750 mg IVPB DAILY [facility] Last Admin: 09/25/17 11:06 Dose: 750 mg Lidocaine (Lidoderm) 1 ea TD DAILY [facility] Last Admin: 09/25/17 11:07 Dose: 1 ea Morphine Sulfate (Morphine) 0.5 mg IVP Q4H PRN PRN Reason: Pain, moderate (4-7) Ondansetron HCl (Zofran Inj) 6 mg IVP Q4H PRN PRN Reason: Nausea/Vomiting Polyethylene Glycol (Miralax) 17 gm PO BID [facility] Last Admin: 09/25/17 18:56 Dose: 17 gm Sennosides (Senokot Tab) 17.2 mg PO HS [facility] Last Admin: 09/25/17 23:01 Dose: Not Given Tiotropium [place] (Spiriva) 18 mcg IH DAILY [facility] Last Admin: 09/25/17 11:08 Dose: 18 mcg - Labs Labs: 09/25/17 18:30 09/25/17 06:00 Assessment and Plan - Assessment and Plan (Free Text) Plan: discussed at length w/ resident went over meds labs tests xrays consults plans orders reviewed
[2017-09-25 18:54] LABS: HEMOGLOBIN 9.2 g/dL (12.0-16.0); MEAN CELL VOLUME 95.7 fl (80.0-105.0); MEAN CORPUSCULAR HEMOGLOBIN 30.6 pg (25.0-35.0); MEAN CORPUSCULAR HGB CONC 31.9 g/dl (31.0-37.0); MEAN PLATELET VOLUME 11.4 fl (7.0-11.0); RBC 3.01 10^6/uL (3.5-6.1); RED CELL DISTRIBUTION WIDTH 13.4 % (11.5-14.5); WHITE BLOOD COUNT 3.6 10^3/ul (4.5-11.0)
--- NOTE | 2017-09-26 07:07 | PN ---
DATE: 09/26/2017 PULMONARY NOTE SUBJECTIVE: The patient appears comfortable this morning. She is not short of breath at rest. PHYSICAL EXAMINATION VITAL SIGNS: (last noted in the computer): Last temperature recorded is 99.6, pulse this morning 68, respiratory rate 18, blood pressure 125/74. Oxygen saturation on nasal cannula is 98%. HEENT: Normocephalic, atraumatic. No JVD. CARDIOVASCULAR: Systolic ejection murmur at the lower left sternal border. No S3 gallop. LUNGS: Very minimal rhonchi appreciated. No wheezing. EXTREMITIES: Positive for mild edema. No cyanosis, no clubbing. Calves are nontender to palpation. GI: Abdomen is soft, nontender and nondistended. Bowel sounds are positive. SKIN: No acute rash. NEUROLOGIC: Limited at the present time. PERTINENT LABORATORY DATA: Chest x-ray was done on 09/24/2017. There are extensive chronic appearing changes bilaterally. IMPRESSION: 1. Severe dizziness, frequent falls. 2. End-stage chronic obstructive pulmonary disease. 3. Severe pulmonary hypertension. 4. Coronary artery disease. 5. Anemia. PLAN: The patient appears comfortable this morning. She is not short of breath at rest. She does state to feeling better this morning. I did discuss the case with the night nurse at length. The night nurse stated that the patient had a very good night. On physical exam, there is no significant bronchospasm noted. In addition, the oxygen saturation on nasal cannula is now 98%. I will continue the current nebulizer treatments and inhaled steroids for now. The patient remains off her Adempas. We are awaiting a physical therapy consult. Depending on the physical therapy results, we may consider adding a small dose of sildenafil. Keep in mind, sildenafil was rejected by her insurance company as an outpatient. My office will be in close contact with her insurance company regarding outpatient medication. In the meantime, the patient is very weak and needs intensive physical therapy. Inputs by Cardiology and Orthopedics are noted. Clinical status of the patient is definitely improved - compared to the initial presentation. However, again, the future status/prognosis for this patient, unfortunately, remains poor. I will discuss the above with Dr. Valentine this morning. Evgeny Briggs MD [facility] # [id number] JOSEPH
[2017-09-26 07:28] LABS: GRAN # 1.92 (1.4-6.5); GRAN % 64.7 % (50.0-68.0); HEMOGLOBIN 8.3 g/dL (12.0-16.0); LYMPH # 0.6 (1.2-3.4); LYMPH % 21.2 % (22.0-35.0); MEAN CELL VOLUME 95.3 fl (80.0-105.0); MEAN CORPUSCULAR HEMOGLOBIN 29.9 pg (25.0-35.0); MEAN CORPUSCULAR HGB CONC 31.3 g/dl (31.0-37.0); MEAN PLATELET VOLUME 11.2 fl (7.0-11.0); MONO # 0.4 (0.1-0.6); MONO % 14.1 % (1.0-6.0); RBC 2.78 10^6/uL (3.5-6.1); RED CELL DISTRIBUTION WIDTH 13.1 % (11.5-14.5)
[2017-09-26] MEDS: Budesonide 0.5 mg/2 ml Inhal Susp UD IH SCH ×2 (07:34→21:41)
[2017-09-26] MEDS: Arformoterol 15 mcg/2 ml Inh Sol IH SCH ×3 (07:34→21:41)
--- NOTE | 2017-09-26 07:56 | CP.PCM.PN ---
Subjective - Date & Time of Evaluation Date of Evaluation: 09/26/17 Time of Evaluation: 07:53 - Subjective Subjective: Medicine progress note for Dr. Valentine/Dr. Page service Patient seen and examined at bedside this morning. No acute overnight events or new complaints reported. Patient continues to feel constipated and has left wrist and low back pain. Left wrist cast removed and splint in place. Low back xray notable for T12 compression fracture. Will discuss with orthopaedics today. Discussed current medical management/workup/results with family in conjunction with Dr. Valentine this morning, all questions answered. Denies chest pain, palpitations, SOB. Objective - Vital Signs/Intake and Output Vital Signs (last 24 hours): Temp Pulse Resp BP Pulse Ox 99.6 F 68 18 125/74 98 09/25/17 16:30 09/26/17 00:00 09/26/17 00:00 09/26/17 00:00 09/26/17 00:00 Intake and Output: 09/26/17 09/26/17 06:59 18:59 Intake Total 300 Balance 300 - Medications Medications: Current Medications Arformoterol Tartrate (Brovana) 15 mcg IH BID [facility] Last Admin: 09/26/17 07:34 Dose: 15 mcg Aspirin (Ecotrin) 81 mg PO DAILY [facility] Last Admin: 09/25/17 11:06 Dose: 81 mg Atorvastatin Calcium (Lipitor) 10 mg PO DAILY [facility] Last Admin: 09/25/17 11:12 Dose: 10 mg Bisacodyl (Dulcolax) 10 mg RC ONCE ONE Stop: 09/26/17 07:52 Budesonide (Pulmicort Respules) 0.5 mg IH [id number] [facility] Last Admin: 09/26/17 07:34 Dose: 0.5 mg Calcium Carbonate (Caltrate) 600 mg PO DAILY [facility] Last Admin: 09/25/17 11:05 Dose: 600 mg Clopidogrel Bisulfate (Plavix) 75 mg PO DAILY [facility] Last Admin: 09/25/17 11:08 Dose: 75 mg Docusate Sodium (Colace) 100 mg PO DAILY [facility] Last Admin: 09/25/17 11:05 Dose: 100 mg Enoxaparin Sodium (Lovenox) 40 mg SC DAILY [facility] PRN Reason: Protocol Last Admin: 09/25/17 11:24 Dose: Not Given Famotidine (Pepcid) 40 mg PO HS [facility] Last Admin: 09/25/17 23:01 Dose: Not Given Home Med (Home Med) 1 unit PO [id number] [facility] Home Med (Home Med) 1 unit PO Q12 [facility] Last Admin: 09/25/17 23:01 Dose: Not Given Sodium Chloride (Sodium Chloride 0.9%) 500 mls @ 100 mls/hr IV .Q5H [facility] Last Admin: 09/25/17 23:36 Dose: 100 mls/hr Levalbuterol HCl (Xopenex) 0.63 mg IH [id number] PRN PRN Reason: Shortness of Breath Last Admin: 09/23/17 07:59 Dose: 0.63 mg Levofloxacin/Dextrose (Levaquin 750mg) 750 mg IVPB DAILY [facility] Last Admin: 09/25/17 11:06 Dose: 750 mg Lidocaine (Lidoderm) 1 ea TD DAILY [facility] Last Admin: 09/25/17 11:07 Dose: 1 ea Morphine Sulfate (Morphine) 0.5 mg IVP Q4H PRN PRN Reason: Pain, moderate (4-7) Ondansetron HCl (Zofran Inj) 6 mg IVP Q4H PRN PRN Reason: Nausea/Vomiting Polyethylene Glycol (Miralax) 17 gm PO BID [facility] Last Admin: 09/25/17 18:56 Dose: 17 gm Sennosides (Senokot Tab) 17.2 mg PO [facility] Last Admin: 09/25/17 23:01 Dose: Not Given Tiotropium [place] (Spiriva) 18 mcg IH DAILY [facility] Last Admin: 09/25/17 11:08 Dose: 18 mcg - Labs Labs: 09/26/17 07:10 09/25/17 06:00 - Constitutional Appears: No Acute Distress - Head Exam Head Exam: ATRAUMATIC, NORMOCEPHALIC - Eye Exam Eye Exam: EOMI, PERRL - ENT Exam ENT Exam: Mucous Membranes Moist - Neck Exam Neck Exam: Normal Inspection. absent: Lymphadenopathy, Tenderness, Thyromegaly - Respiratory Exam Respiratory Exam: absent: Rales, Rhonchi, Wheezes - Cardiovascular Exam Cardiovascular Exam: RRR, +S1, +S2. absent: Gallop, Rubs, Murmur - GI/Abdominal Exam GI & Abdominal Exam: Distended, Soft. absent: Firm, Guarding, Rigid, Tenderness , Rebound - Extremities Exam Additional comments: left wrist splint in place - Neurological Exam Neurological Exam: Alert, Awake, Oriented x3 - Psychiatric Exam Psychiatric exam: Normal Affect, Normal Mood - Skin Skin Exam: Dry, Intact, Normal Color, Warm Assessment and Plan - Assessment and Plan (Free Text) Plan: 82yo female with history of CAD s/p stents, O2-dependent COPD, pulmonary HTN, HTN, HLD, emphysema, and osteoporosis admitted s/p fall for intractable low back pain and UTI 1. Dizziness and fall likely 2/2 medication side effect, associated low back pain - CTH negative for intracranial pathology - LS XR reviewed; revealed T12 compression fracture of indeterminate age - L wrist xray reviewed - ortho consulted, Dr. Wilson, cast removed, splint in place - TSH wnl - orthostatics negative, holding adempas per pulmonary recommendations - Echo EF 53% - Carotid US 20-39% stenosis in b/l ICA - pain mgmt: morphine 0.5mg q4, lidoderm patch - PT/OT recommend AVIVA/HWS - Cardiology, Dr. Echavarria consulted, recs appreciated - Neurology, Dr. Grady consulted, recs appreciated - Ortho, Dr. Heaton consulted, recs appreciated 2. UTI - afebrile x 24hr - Fu cultures CXR - Levaquin 3. Oliguria -Urinalysis, urine electrolytes pending -Creatinine within normal limits -CPK within normal limits -Nephrology consulted - Dr. Suarez -IVF hydration 4. Anemia - per workup, likely multifactorial secondary to chronic disease and b12 - B12 supplemented - will transfuse 1u pRBCs 5. COPD - continue nebulizers - maintain 02 sat > 88% - Solumedrol 40q6, will taper as indicated - Pulm, Dr. Briggs consulted, spiriva, xopenex and pulmicort 6. Hx CAD s/p stents - Cardio Dr. Echavarria consulted, appreciate all recs - Continue ASA, plavix, and lipitor 7. Hypocalcemia with hx of osteoporosis - continue caltrate 8. GERD - protonix 40mg IV 9. HLD - lipitor 10. DVT and GI ppx - Lovenox/Pepcid Patient was seen, examined and discussed with attending, Dr. Valentine
[2017-09-26 07:58] LABS: ALB/GLOB RATIO 1.2 (1.1-1.8); ALBUMIN 2.8 g/dL (3.0-4.8); ALT/SGPT 40 U/L (7-56); AST/SGOT 50 U/L (14-36); BLOOD UREA NITROGEN 31 mg/dL (7-21); CALCIUM 8.9 mg/dL (8.4-10.5); GFR AFRICAN-AMERICAN > 60; GFR NON-AFRICAN AMERICAN 53
--- NOTE | 2017-09-26 08:32 | PROCN ---
DATE: 09/25/2017 LOCATION: Room# 567, bed 1. The patient has left wrist fracture, currently in coaptation cast, which was put on the day of injury on 09/13/2017 in the emergency room, and she was admitted to the hospital on 09/23/2017 and today's date is 09/25/2017. Coaptation cast is on. She complains of wrist pain. X-ray shows impacted fracture, left wrist in good and acceptable position for the continuation of her life and usage of the left wrist once it is heals. I took the cast off. There is no skin irritation. There is coaptation cast. Elbow is fine. Tender still at the left wrist. She does really appreciate a short-arm cast. I do not want to put short-arm cast, so I put her in a well-fitted left wrist splint. I will see if this could take care of her symptoms because in two more weeks the fracture should be almost 80% healed and she can just go without a cast. So, I will see if this splint works. I do not have to put a cast on, but if she continues to have pain, I left in her room the cast material and put short-arm cast on her left wrist if the pain is not tolerated well of the left wrist because this still in a healing stage. It needs protection from the wrist splint. If that is not good enough, we will put her on short-arm left wrist cast. Tal Heaton DO
--- NOTE | 2017-09-26 09:13 | RAD ---
HISTORY: constipation x 5 days, Relevant medical history:small bowel obstruction COMPARISON: No prior. FINDINGS: BOWEL: Normal. No obstruction. No free air. BONES: Normal. OTHER FINDINGS: None. IMPRESSION: No significant or acute findings to account for/ related to the clinical presentation.
[2017-09-26] MEDS ORDERED: Sodium Chloride 0.9% 1,000 ML IV SCH (11:00)
[2017-09-26] MEDS: Tiotropium 18 mcg Cap For Inhalation IH SCH (11:11)
[2017-09-26] MEDS: levoFLOXacin 750 mg in D5W 150 ML BAG IVPB SCH (11:11)
[2017-09-26] MEDS: POLYETHYLENE GLYCOL 3350 17 GM/Dose PACKET PO SCH ×2 (11:13→18:01)
[2017-09-26] MEDS: Lidocaine 5% Patch TD SCH (11:13)
[2017-09-26] MEDS: Enoxaparin 40 mg Syringe SC SCH (11:13)
[2017-09-26] MEDS: MethylPREDNISolone 40 mg Vial IVP SCH ×3 (11:18→22:25)
[2017-09-26] MEDS ORDERED: levoFLOXacin 750 mg in D5W 150 ML BAG IVPB SCH (11:38)
--- NOTE | 2017-09-26 12:08 | PN ---
DATE: 09/26/2017 CARDIOLOGY FOLLOWUP SUBJECTIVE: The patient complains of shortness of breath. PHYSICAL EXAMINATION: VITAL SIGNS: Blood pressure 147/81, heart rate in the 70s. NECK: Negative JVD. LUNGS: No rales noted. No wheezing noted. EXTREMITIES: Without edema. LABORATORY DATA: Hemoglobin is 8.3. Chemistries are unchanged. The ProBNP is normal. Echocardiogram reveals a normal LV ejection fraction of 52%. There is significant pulmonary hypertension noted. IMPRESSION: 1. Severe chronic obstructive pulmonary disease. 2. Pulmonary retention. 3. No evidence for congestive heart failure. 4. Stable angina. 5. Diffuse pain secondary to multiple falls. PLAN: Given these findings, we will continue bronchodilators for her COPD. No evidence of CHF. Harrison Echavarria MD
[2017-09-26] MEDS: Sodium Chloride 0.9% 1,000 ML IV SCH (12:30)
--- NOTE | 2017-09-26 14:32 | CP.PCM.CON ---
History of Present Illness - History of Present Illness History of Present Illness: Initial Nephrology Consultation: Assessment: Stable dark colored urine ? concentrated (pre-renal state) or due to meds/protein/RBCs Oliguria with stable serum creatinine ? 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 Hypertension control with meds as ordered. Monitor Input/Output, daily weights and renal function with basic metabolic panel Increase IVF rate encourage oral intake Check urine analysis, spot protein/creatinine urine sodium, myoglobin CPK level WNL further work up depending upon above test results Avoid fleets enema/magnesium based laxatives. Avoid nephrotoxins/NSAIDs/ iodinated contrast (unless needed emergently) Glycemic control Further work up/management as per primary team Thanks for allowing me to participate in care of your patient. Will follow patient with you. Please call if any Qs. 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 pt mostly on bed and c/o back pain. urinary symptoms are better. also has chronic SOB due to COPD. renal consult for decreased urine output. pt has external urinary catheter which is draining dark color urine which is slight better in colore and volume as per daughter. as per staff, her bedsheet gets wet too. no use of AZO or pyridium.serum cr has been stable. she has poor appetite and decreased oral intake. Denies OTC/herbal meds or NSAIDs No recent iodinated contrast exposure. ROS: Cardiovascular: No chest pain. Pulmonary: c/o shortness of breath Gastrointestinal: denies abdominal pain No nausea. No vomiting. Genitourinary: UTI symptoms are better All other negative except back pain and as mentioned in HPI Physical Examination: General Appearance: Comfortable, in no acute respiratory distress, co-operative . elderly ill appearing female Vitals reviewed and noted as below Head; Atraumatic, normocephalic ENT: no ulcers no thrush. Tongue is midline and dry. Oropharynx: no rash or ulcers. EYES: Pupils are equal, round and reactive to light accommodation. Eye muscles and extraocular movement intact. Sclera is anicteric. Neck; supple no lymphadenopathy, no thyromegaly or bruit Lungs: Normal respiratory rate/effort. Breath sounds bilateral equal and has b/ l fine wheeze Heart: Normal rate. s1s2 normal. No rub or gallop. Extremities: no edema. No varicose veins Neurological: Patient is alert, awake and oriented to person, place and time. No focal deficit. Strength bilateral appropriate and equal Skin: Warm and dry. Normal turgor. No rash. Palpitation: Normal elasticity for age Abdomen: Abdomen is soft. Bowel sounds +. There is no abdominal tenderness, no guarding/rigidity no organomegaly Psych: normal insight and normal affect/mood MSK: no joint tenderness or swelling. Digits and nails normal, no deformity : kidney or bladder not palpable. has external urinary catheter Labs/imaging reviewed. Past medical history, past surgical history, family history, social history, allergy reviewed and noted as below Family hx: no hx of CKD. Rest non-contributory CT abdomen initially: normal kidneys, small cyst UA SG >1.030 echo: IVC collapses >50% Past Patient History - Infectious Disease Hx of Infectious Diseases: None - Tetanus Immunizations Tetanus Immunization: Unknown - Past Medical History & Family History Past Medical History?: Yes - Past Social History Smoking Status: Never Smoked - CARDIAC Hx Hypertension: Yes - PULMONARY Hx Chronic Obstructive Pulmonary Disease (COPD): Yes - NEUROLOGICAL Hx Paralysis: No - HEENT Hx HEENT Problems: Yes Hx Cataracts: Yes - RENAL Hx Chronic Kidney Disease: No - ENDOCRINE/METABOLIC Hx Endocrine Disorders: No - HEMATOLOGICAL/ONCOLOGICAL Hx Blood Transfusions: Yes (2010) Hx Blood Transfusion Reaction: No - INTEGUMENTARY Hx Dermatological Problems: No - MUSCULOSKELETAL/RHEUMATOLOGICAL Hx Musculoskeletal Disorders: Yes Hx Falls: Yes - GASTROINTESTINAL Hx Gastrointestinal Disorders: Yes (INGUINAL HERNIA REPAIR) Hx Diverticulitis: Yes Hx Gall Bladder Disease: Yes (CHLOECYSTECTOOMY) - GENITOURINARY/GYNECOLOGICAL Hx Genitourinary Disorders: Yes Hx Incontinence: Yes - PSYCHIATRIC Hx Emotional Abuse: No Hx Physical Abuse: No Hx Substance Use: No - SURGICAL HISTORY Hx Appendectomy: Yes Hx Cardiac Catheterization: Yes Hx Cholecystectomy: Yes Hx Coronary Stent: Yes (X2) Other/Comment: Cyst removal in ovary. Inguinal Hernia Repair. 2 inches of intestine removed - ANESTHESIA Hx Anesthesia: Yes Hx Anesthesia Reactions: No Hx Malignant Hyperthermia: No Meds Allergies/Adverse Reactions: Allergies Allergy/AdvReac Type Severity Reaction Status Date / Time codeine AdvReac VOMITING Verified 09/21/17 16:47 hydromorphone HCl AdvReac VOMITING Verified 09/21/17 16:47 [From Dilaudid] MYOCINS AdvReac VOMITING Uncoded 09/21/17 16:48 - Medications Medications: Current Medications Arformoterol Tartrate (Brovana) 15 mcg IH BID [facility] Last Admin: 09/26/17 07:34 Dose: 15 mcg Aspirin (Ecotrin) 81 mg PO DAILY [facility] Last Admin: 09/26/17 11:12 Dose: 81 mg Atorvastatin Calcium (Lipitor) 10 mg PO DAILY [facility] Last Admin: 09/26/17 11:12 Dose: 10 mg Budesonide (Pulmicort Respules) 0.5 mg IH [id number] [facility] Last Admin: 09/26/17 07:34 Dose: 0.5 mg Calcium Carbonate (Caltrate) 600 mg PO DAILY [facility] Last Admin: 09/26/17 11:13 Dose: 600 mg Clopidogrel Bisulfate (Plavix) 75 mg PO DAILY [facility] Last Admin: 09/26/17 11:12 Dose: 75 mg Docusate Sodium (Colace) 100 mg PO DAILY [facility] Last Admin: 09/26/17 11:12 Dose: 100 mg Enoxaparin Sodium (Lovenox) 40 mg SC DAILY [facility] PRN Reason: Protocol Last Admin: 09/26/17 11:13 Dose: 40 mg Famotidine (Pepcid) 40 mg PO HS [facility] Last Admin: 09/25/17 23:01 Dose: Not Given Home Med (Home Med) 1 unit PO [id number] [facility] Home Med (Home Med) 1 unit PO Q12 [facility] Last Admin: 09/26/17 11:10 Dose: 1 unit Sodium Chloride (Sodium Chloride 0.9%) 1,000 mls @ 75 mls/hr IV .[id number] [facility] Levalbuterol HCl (Xopenex) 0.63 mg IH [id number] PRN PRN Reason: Shortness of Breath Last Admin: 09/23/17 07:59 Dose: 0.63 mg Levofloxacin/Dextrose (Levaquin 750mg) 750 mg IVPB Q48H [facility] Lidocaine (Lidoderm) 1 ea TD DAILY [facility] Last Admin: 09/26/17 11:13 Dose: 1 ea Methylprednisolone (Solu-Medrol) 40 mg IVP Q6H [facility] Last Admin: 09/26/17 11:18 Dose: 40 mg Morphine Sulfate (Morphine) 0.5 mg IVP Q4H PRN PRN Reason: Pain, moderate (4-7) Ondansetron HCl (Zofran Inj) 6 mg IVP Q4H PRN PRN Reason: Nausea/Vomiting Polyethylene Glycol (Miralax) 17 gm PO BID [facility] Last Admin: 09/26/17 11:13 Dose: 17 gm Sennosides (Senokot Tab) 17.2 mg PO HS [facility] Last Admin: 09/25/17 23:01 Dose: Not Given Tiotropium [place] (Spiriva) 18 mcg IH DAILY [facility] Last Admin: 09/26/17 11:11 Dose: 18 mcg Results - Vital Signs Recent Vital Signs: Last Vital Signs Temp 98.2 F 09/26/17 07:30 Pulse 75 09/26/17 07:30 Resp 18 09/26/17 07:30 BP 140/75 09/26/17 14:16 Pulse Ox 99 09/26/17 07:30 - Labs Result Diagrams: 09/26/17 07:10 09/26/17 07:10 Labs: Laboratory Results - last 24 hr 09/25/17 09/25/17 09/25/17 18:30 18:30 20:25 WBC 3.6 L RBC 3.01 L Hgb 9.2 L Hct 28.8 L MCV 95.7 MCH 30.6 MCHC 31.9 RDW 13.4 Plt Count 116 L MPV 11.4 H Gran % Lymph % (Auto) Green % (Auto) Eos % (Auto) Baso % (Auto) Gran # Lymph # Green # Eos # Baso # Sodium Potassium Chloride Carbon Dioxide Anion Gap BUN Creatinine Est GFR ( Amer) Est GFR (Non-Af Amer) Random Glucose Calcium Total Bilirubin AST ALT Alkaline Phosphatase Total Creatine Kinase 131 Total Protein Albumin Globulin Albumin/Globulin Ratio Blood Type A POSITIVE Antibody Screen Negative Crossmatch See Detail BBK History Checked Patient has bt 09/26/17 09/26/17 07:10 07:10 WBC 3.0 L RBC 2.78 L Hgb 8.3 L Hct 26.5 L MCV 95.3 MCH 29.9 MCHC 31.3 RDW 13.1 Plt Count 117 L MPV 11.2 H Gran % 64.7 Lymph % (Auto) 21.2 L Green % (Auto) 14.1 H Eos % (Auto) 0.0 L Baso % (Auto) 0.0 Gran # 1.92 Lymph # 0.6 L Green # 0.4 Eos # 0.0 Baso # 0.00 Sodium 139 Potassium 5.2 H Chloride 106 Carbon Dioxide 27 Anion Gap 12 BUN 31 H Creatinine 1.0 Est GFR ( Amer) > 60 Est GFR (Non-Af Amer) 53 Random Glucose 85 Calcium 8.9 Total Bilirubin 0.4 AST 50 H D ALT 40 Alkaline Phosphatase 47 Total Creatine Kinase Total Protein 5.2 L Albumin 2.8 L Globulin 2.4 Albumin/Globulin Ratio 1.2 Blood Type Antibody Screen Crossmatch BBK History Checked
[2017-09-26 19:13] LABS: URINE BILIRUBIN NEGATIVE (NEGATIVE); URINE BLOOD TRACE-INTACT (NEGATIVE); URINE GLUCOSE (UA) NEGATIVE (NEGATIVE); URINE LEUKOCYTE ESTERASE NEGATIVE Leu/uL (NEGATIVE); URINE NITRATE NEGATIVE (NEGATIVE); URINE PROTEIN NEGATIVE mg/dL (<30 mg/dL); URINE UROBILINOGEN 0.2 E.U./dL (<1 E.U./dL)
[2017-09-26 19:15] LABS: URINE APPEARANCE CLEAR (CLEAR); URINE COLOR YELLOW (YELLOW)
[2017-09-26 19:29] LABS: CREATININE,RANDOM URINE 9 mg/dL
[2017-09-26 19:31] LABS: URINE BACTERIA MANY (NEG); URINE EPITHELIAL CELLS 0 - 2 /hpf (0-5); URINE RBC 0 - 2 /hpf (0-2); URINE WBC 0 - 2 /hpf (0-6)
[2017-09-27] MEDS: MethylPREDNISolone 40 mg Vial IVP SCH (05:35)
[2017-09-27 07:42] LABS: GRAN # 1.08 (1.4-6.5); GRAN % 68.8 % (50.0-68.0); LYMPH # 0.4 (1.2-3.4); LYMPH % 24.8 % (22.0-35.0); MEAN CELL VOLUME 91.4 fl (80.0-105.0); MEAN CORPUSCULAR HEMOGLOBIN 29.7 pg (25.0-35.0); MEAN CORPUSCULAR HGB CONC 32.5 g/dl (31.0-37.0); MEAN PLATELET VOLUME 11.6 fl (7.0-11.0); MONO # 0.1 (0.1-0.6); MONO % 6.4 % (1.0-6.0); RBC 3.47 10^6/uL (3.5-6.1)
[2017-09-27 07:50] LABS: ALBUMIN 3.1 g/dL (3.0-4.8); ALT/SGPT 38 U/L (7-56); AST/SGOT 53 U/L (14-36); BLOOD UREA NITROGEN 32 mg/dL (7-21); CALCIUM 9.3 mg/dL (8.4-10.5); GFR AFRICAN-AMERICAN > 60; GFR NON-AFRICAN AMERICAN 53
[2017-09-27 07:55] LABS: ALB/GLOB RATIO 1.3 (1.1-1.8)
[2017-09-27 08:04] LABS: WHITE BLOOD COUNT 1.6 10^3/ul (4.5-11.0)
[2017-09-27 08:07] LABS: HEMOGLOBIN 10.3 g/dL (12.0-16.0)
[2017-09-27] MEDS: Budesonide 0.5 mg/2 ml Inhal Susp UD IH SCH ×2 (08:12→20:01)
[2017-09-27] MEDS: Levalbuterol 0.63 MG/3 ML Inhal Soln UD IH PRN (08:12)
[2017-09-27] MEDS: Arformoterol 15 mcg/2 ml Inh Sol IH SCH ×3 (08:12→20:01)
--- NOTE | 2017-09-27 08:15 | PN ---
DATE: 09/27/2017 PULMONARY NOTE SUBJECTIVE: The patient appears comfortable this morning. She is not short of breath at rest. PHYSICAL EXAMINATION: VITAL SIGNS: Temperature is 98.2, pulse 67, respirations 18/20, blood pressure 173/93. Oxygen saturation on nasal cannula ranges between 94-99%. HEENT: Normocephalic, atraumatic. No JVD. CARDIOVASCULAR: Systolic ejection murmur at the lower left sternal border. No S3 gallop. LUNGS: Minimal rhonchi bilaterally. No wheezing. EXTREMITIES: Positive for mild edema. No cyanosis, no clubbing. Calves are nontender to palpation. GI: Abdomen is soft, nontender and nondistended. Bowel sounds are positive. SKIN: No acute rash. NEUROLOGIC: Limited at the present time. IMPRESSION: 1. Severe dizziness, frequent falls. 2. End-stage chronic obstructive pulmonary disease. 3. Severe pulmonary hypertension. 4. Coronary artery disease. 5. Anemia. PLAN: The patient appears comfortable this morning. She is not short of breath at rest. She does state to feeling better overall this morning. On physical exam, there is only minimal bronchospasm noted. In addition, the oxygen saturation on nasal cannula is now 94-99%. I will continue the current nebulizer treatments and decrease the intravenous steroids this morning. Inputs by Renal and Cardiology are noted. I am still waiting to see what happens when the patient ambulates. I will continue to hold off on the adempas. Clinical status of the patient is certainly improved - while in the hospital. However, again, the overall status/prognosis for this patient remains poor. I will discuss the above with Dr. Valentine. Evgeny Briggs MD JOSEPH
[2017-09-27] MEDS: Enoxaparin 40 mg Syringe SC SCH (09:43)
[2017-09-27] MEDS: Tiotropium 18 mcg Cap For Inhalation IH SCH (09:44)
[2017-09-27] MEDS: Lidocaine 5% Patch TD SCH (09:47)
[2017-09-27] MEDS: POLYETHYLENE GLYCOL 3350 17 GM/Dose PACKET PO SCH ×2 (09:47→17:49)
[2017-09-27] MEDS ORDERED: MethylPREDNISolone 40 mg Vial IVP SCH (10:00)
--- NOTE | 2017-09-27 13:35 | CP.PCM.PN ---
<Gadiel Vila - Last Filed: 09/27/17 13:27> Subjective - Date & Time of Evaluation Date of Evaluation: 09/27/17 Time of Evaluation: 13:27 - Subjective Subjective: Medicine progress note Patient seen and examined at bedside this morning. No acute overnight events or new complaints reported. Patient continues to have low back pain making it difficult for her to get out of bed. Will obtain MRI for further evaluation. Additionally, patient with neutropenia likely secondary to medication (abx). Discontinued abx and will monitor. Otherwise, denies chest pain, palpitations, SOB. Objective - Vital Signs/Intake and Output Vital Signs (last 24 hours): Temp Pulse Resp BP Pulse Ox 98.2 F 67 20 173/93 H 94 L 09/27/17 07:30 09/27/17 07:30 09/27/17 07:30 09/27/17 07:30 09/27/17 07:30 Intake and Output: 09/27/17 09/27/17 06:59 18:59 Intake Total 720 Output Total 1000 Balance -280 - Medications Medications: Current Medications Arformoterol Tartrate (Brovana) 15 mcg IH BID [facility] Last Admin: 09/27/17 08:15 Dose: 15 mcg Aspirin (Ecotrin) 81 mg PO DAILY [facility] Last Admin: 09/27/17 09:44 Dose: 81 mg Atorvastatin Calcium (Lipitor) 10 mg PO DAILY [facility] Last Admin: 09/27/17 09:44 Dose: 10 mg Budesonide (Pulmicort Respules) 0.5 mg IH [id number] [facility] Last Admin: 09/27/17 08:12 Dose: 0.5 mg Calcium Carbonate (Caltrate) 600 mg PO DAILY [facility] Last Admin: 09/27/17 09:44 Dose: 600 mg Clopidogrel Bisulfate (Plavix) 75 mg PO DAILY [facility] Last Admin: 09/27/17 09:45 Dose: 75 mg Docusate Sodium (Colace) 100 mg PO DAILY [facility] Last Admin: 09/27/17 09:44 Dose: 100 mg Enoxaparin Sodium (Lovenox) 40 mg SC DAILY [facility] PRN Reason: Protocol Last Admin: 09/27/17 09:43 Dose: 40 mg Famotidine (Pepcid) 40 mg PO HS [facility] Last Admin: 09/26/17 22:24 Dose: 40 mg Home Med (Home Med) 1 unit PO [id number] [facility] Home Med (Home Med) 1 unit PO Q12 [facility] Last Admin: 09/27/17 09:46 Dose: 1 unit Sodium Chloride (Sodium Chloride 0.9%) 1,000 mls @ 75 mls/hr IV .[id number] [facility] Last Admin: 09/26/17 12:30 Dose: 75 mls/hr Levalbuterol HCl (Xopenex) 0.63 mg IH [id number] PRN PRN Reason: Shortness of Breath Last Admin: 09/27/17 08:12 Dose: 0.63 mg Lidocaine (Lidoderm) 1 ea TD DAILY [facility] Last Admin: 09/27/17 09:47 Dose: 1 ea Methylprednisolone (Solu-Medrol) 40 mg IVP DAILY [facility] Morphine Sulfate (Morphine) 0.5 mg IVP Q4H PRN PRN Reason: Pain, moderate (4-7) Ondansetron HCl (Zofran Inj) 6 mg IVP Q4H PRN PRN Reason: Nausea/Vomiting Polyethylene Glycol (Miralax) 17 gm PO BID [facility] Last Admin: 09/27/17 09:47 Dose: 17 gm Sennosides (Senokot Tab) 17.2 mg PO HS [facility] Last Admin: 09/26/17 22:26 Dose: 17.2 mg Tiotropium [place] (Spiriva) 18 mcg IH DAILY [facility] Last Admin: 09/27/17 09:44 Dose: 18 mcg - Labs Labs: 09/27/17 07:00 09/27/17 07:00 - Constitutional Appears: No Acute Distress - Head Exam Head Exam: ATRAUMATIC, NORMAL INSPECTION, NORMOCEPHALIC - Eye Exam Eye Exam: EOMI, PERRL - ENT Exam ENT Exam: Mucous Membranes Moist - Neck Exam Neck Exam: Normal Inspection. absent: Lymphadenopathy, Tenderness, Thyromegaly - Respiratory Exam Respiratory Exam: absent: Rales, Rhonchi, Wheezes - Cardiovascular Exam Cardiovascular Exam: +S1, +S2. absent: Gallop, Rubs, Murmur - GI/Abdominal Exam GI & Abdominal Exam: Soft, Normal Bowel Sounds. absent: Distended, Firm, Guarding, Rigid, Tenderness, Rebound - Neurological Exam Neurological Exam: Alert, Awake, Oriented x3 - Psychiatric Exam Psychiatric exam: Normal Affect, Normal Mood - Skin Skin Exam: Dry, Intact, Normal Color, Warm Assessment and Plan - Assessment and Plan (Free Text) Plan: 82yo female with history of CAD s/p stents, O2-dependent COPD, pulmonary HTN, HTN, HLD, emphysema, and osteoporosis admitted s/p fall for intractable low back pain. Presently being treated for intractable low back pain, leukopenia and COPD. 1. Low back pain s/p fall - CTH negative for intracranial pathology - LS XR reviewed; revealed T12 compression fracture of indeterminate age - L wrist xray reviewed - ortho consulted, Dr. Wilson, cast removed, splint in place - TSH wnl - orthostatics negative, holding adempas per pulmonary recommendations - Echo EF 53%; see full report - Carotid US 20-39% stenosis in b/l ICA - pain mgmt: morphine 0.5mg q4, lidoderm patch - MRI of the thoracic/lumbar spine ordered due to intractable low back pain; may consider consult for kyphoplasty pending MRI results - PT/OT recommend AVIVA/HWS - Cardiology, Dr. Echavarria consulted, recs appreciated - Neurology, Dr. Grady consulted, recs appreciated - Ortho, Dr. Heaton consulted, recs appreciated 2. Neutropenia - likely secondary to medication (abx); levaquin held and will continue to monitor 3. COPD - continue nebulizers - maintain 02 sat > 88% - steroid taper as indicated - Pulm consulted - Dr. Briggs; continue spiriva, xopenex and pulmicort 4. Anemia - per workup, likely multifactorial secondary to chronic disease and b12 deficiency - B12 supplemented - transfused 1u PRBC 5. Hx CAD s/p stents - Cardio Dr. Echavarria consulted, appreciate all recs - Continue ASA, plavix, and lipitor 6. Hypocalcemia with hx of osteoporosis - continue caltrate 7. GERD - protonix 40mg IV 8. HLD - lipitor 9. DVT and GI ppx - Lovenox/Pepcid Patient was seen, examined and discussed with attending, Dr. Melo <Blaine Melo - Last Filed: 09/27/17 17:25> Objective - Vital Signs/Intake and Output Vital Signs (last 24 hours): Temp Pulse Resp BP Pulse Ox 98.2 F 67 20 173/93 H 94 L 09/27/17 07:30 09/27/17 07:30 09/27/17 07:30 09/27/17 07:30 09/27/17 07:30 Intake and Output: 09/27/17 09/27/17 06:59 18:59 Intake Total 720 Output Total 1000 Balance -280 - Medications Medications: Current Medications Arformoterol Tartrate (Brovana) 15 mcg IH BID [facility] Last Admin: 09/27/17 08:15 Dose: 15 mcg Aspirin (Ecotrin) 81 mg PO DAILY [facility] Last Admin: 09/27/17 09:44 Dose: 81 mg Atorvastatin Calcium (Lipitor) 10 mg PO DAILY [facility] Last Admin: 09/27/17 09:44 Dose: 10 mg Budesonide (Pulmicort Respules) 0.5 mg IH [id number] [facility] Last Admin: 09/27/17 08:12 Dose: 0.5 mg Calcium Carbonate (Caltrate) 600 mg PO DAILY [facility] Last Admin: 09/27/17 09:44 Dose: 600 mg Clopidogrel Bisulfate (Plavix) 75 mg PO DAILY [facility] Last Admin: 09/27/17 09:45 Dose: 75 mg Docusate Sodium (Colace) 100 mg PO DAILY [facility] Last Admin: 09/27/17 09:44 Dose: 100 mg Enoxaparin Sodium (Lovenox) 40 mg SC DAILY [facility] PRN Reason: Protocol Last Admin: 09/27/17 09:43 Dose: 40 mg Famotidine (Pepcid) 40 mg PO HS [facility] Last Admin: 09/26/17 22:24 Dose: 40 mg Home Med (Home Med) 1 unit PO [id number] [facility] Home Med (Home Med) 1 unit PO Q12 [facility] Last Admin: 09/27/17 09:46 Dose: 1 unit Sodium Chloride (Sodium Chloride 0.9%) 1,000 mls @ 75 mls/hr IV .[id number] [facility] Last Admin: 09/26/17 12:30 Dose: 75 mls/hr Levalbuterol HCl (Xopenex) 0.63 mg IH [id number] PRN PRN Reason: Shortness of Breath Last Admin: 09/27/17 08:12 Dose: 0.63 mg Lidocaine (Lidoderm) 1 ea TD DAILY [facility] Last Admin: 09/27/17 09:47 Dose: 1 ea Methylprednisolone (Solu-Medrol) 40 mg IVP DAILY [facility] Morphine Sulfate (Morphine) 0.5 mg IVP Q4H PRN PRN Reason: Pain, moderate (4-7) Ondansetron HCl (Zofran Inj) 6 mg IVP Q4H PRN PRN Reason: Nausea/Vomiting Polyethylene Glycol (Miralax) 17 gm PO BID [facility] Last Admin: 09/27/17 09:47 Dose: 17 gm Sennosides (Senokot Tab) 17.2 mg PO HS [facility] Last Admin: 09/26/17 22:26 Dose: 17.2 mg Tiotropium [place] (Spiriva) 18 mcg IH DAILY [facility] Last Admin: 09/27/17 09:44 Dose: 18 mcg - Labs Labs: 09/27/17 07:00 09/27/17 07:00 Attending/Attestation - Attestation I have personally seen and examined this patient.: Yes I have fully participated in the care of the patient.: Yes I have reviewed all pertinent clinical information, including history, physical exam and plan: Yes Notes (Text): 09/27/17 17:21 Patient was seen and examined with medical doctor md/medical director. Agreed with resident assessment and plan. 82 yrs female with history of CAD s/p stents, O2-dependent COPD, pulmonary HTN , HTN, HLD, emphysema, and osteoporosis admitted s/p fall for intractable low back pain, X rays showed T 12 wedge fracture, Pain is not well controlled, we will get MRI of back, May need Kyphoplasty. COPD is improving.Patient is not wheezing, steroid can be changed to oral in 24 hour. Management plan was discussed in detail with patient Education was provided. 09/27/17 17:24
--- NOTE | 2017-09-27 14:12 | PN ---
DATE: 09/27/2017 CARDIOLOGY FOLLOWUP SUBJECTIVE: The patient is in bed without shortness of breath. She complains of diffuse body aches. PHYSICAL EXAMINATION: VITAL SIGNS: Blood pressure 173/93 and heart rate is 110. NECK: Negative JVD. LUNGS: Minimal rhonchi. HEART: Reveal S1 and S2. EXTREMITIES: Without edema. LABORATORY DATA: Hemoglobin is 10.3 and white count is questionable at 1.6. BUN and creatinine 32 and 1.0. IMPRESSION: 1. Diffuse body aches. 2. Severe chronic obstructive pulmonary disease. 3. Stable angina. 4. Coronary artery disease. 5. Pulmonary hypertension. PLAN: Given these findings, the patient will need physical therapy. We will order it today. Harrison Echavarria MD
--- NOTE | 2017-09-27 15:37 | CP.PCM.PN ---
Subjective - Date & Time of Evaluation Date of Evaluation: 09/27/17 Time of Evaluation: 15:35 - Subjective Subjective: Follow up Nephrology Consultation: Assessment: Stable dark colored urine likely concentrated (pre-renal state) Oliguria with stable serum creatinine ? 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 serum cr remains stable Hypertension control Monitor Input/Output, daily weights and renal function with basic metabolic panel continue with IVF encourage oral intake no further renal work up. Glycemic control Further work up/management as per primary team Thanks for allowing me to participate in care of your patient. will sign off and will see PRN basis. Please call if any Qs. 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 pt mostly on bed and c/o back pain. urinary symptoms are better. also has chronic SOB due to COPD. renal consult for decreased urine output. pt has external urinary catheter which is draining dark color urine which is slight better in colore and volume as per daughter. as per staff, her bedsheet gets wet too. no use of AZO or pyridium.serum cr has been stable. she has poor appetite and decreased oral intake. Denies OTC/herbal meds or NSAIDs No recent iodinated contrast exposure. ROS: Cardiovascular: No chest pain. Pulmonary: c/o shortness of breath Gastrointestinal: denies abdominal pain No nausea. No vomiting. Genitourinary: UTI symptoms are better All other negative except back pain and as mentioned in HPI Physical Examination: General Appearance: Comfortable, in no acute respiratory distress, co-operative . elderly ill appearing female Vitals reviewed and noted as below Head; Atraumatic, normocephalic ENT: no ulcers no thrush. Tongue is midline and dry. Oropharynx: no rash or ulcers. EYES: Pupils are equal, round and reactive to light accommodation. Eye muscles and extraocular movement intact. Sclera is anicteric. Neck; supple no lymphadenopathy, no thyromegaly or bruit Lungs: Normal respiratory rate/effort. Breath sounds bilateral equal and has b/ l fine wheeze Heart: Normal rate. s1s2 normal. No rub or gallop. Extremities: no edema. No varicose veins Neurological: Patient is alert, awake and oriented to person, place and time. No focal deficit. Strength bilateral appropriate and equal Skin: Warm and dry. Normal turgor. No rash. Palpitation: Normal elasticity for age Abdomen: Abdomen is soft. Bowel sounds +. There is no abdominal tenderness, no guarding/rigidity no organomegaly Psych: normal insight and normal affect/mood MSK: no joint tenderness or swelling. Digits and nails normal, no deformity : kidney or bladder not palpable. has external urinary catheter Labs/imaging reviewed. Past medical history, past surgical history, family history, social history, allergy reviewed and noted as below Family hx: no hx of CKD. Rest non-contributory CT abdomen initially: normal kidneys, small cyst UA SG >1.030 echo: IVC collapses >50% Objective - Vital Signs/Intake and Output Vital Signs (last 24 hours): Temp Pulse Resp BP Pulse Ox 98.2 F 67 20 173/93 H 94 L 09/27/17 07:30 09/27/17 07:30 09/27/17 07:30 09/27/17 07:30 09/27/17 07:30 Intake and Output: 09/27/17 09/27/17 06:59 18:59 Intake Total 720 Output Total 1000 Balance -280 - Medications Medications: Current Medications Arformoterol Tartrate (Brovana) 15 mcg IH BID [facility] Last Admin: 09/27/17 08:15 Dose: 15 mcg Aspirin (Ecotrin) 81 mg PO DAILY [facility] Last Admin: 09/27/17 09:44 Dose: 81 mg Atorvastatin Calcium (Lipitor) 10 mg PO DAILY [facility] Last Admin: 09/27/17 09:44 Dose: 10 mg Budesonide (Pulmicort Respules) 0.5 mg IH [id number] [facility] Last Admin: 09/27/17 08:12 Dose: 0.5 mg Calcium Carbonate (Caltrate) 600 mg PO DAILY [facility] Last Admin: 09/27/17 09:44 Dose: 600 mg Clopidogrel Bisulfate (Plavix) 75 mg PO DAILY [facility] Last Admin: 09/27/17 09:45 Dose: 75 mg Docusate Sodium (Colace) 100 mg PO DAILY [facility] Last Admin: 09/27/17 09:44 Dose: 100 mg Enoxaparin Sodium (Lovenox) 40 mg SC DAILY [facility] PRN Reason: Protocol Last Admin: 09/27/17 09:43 Dose: 40 mg Famotidine (Pepcid) 40 mg PO HS [facility] Last Admin: 09/26/17 22:24 Dose: 40 mg Home Med (Home Med) 1 unit PO 0130,0930,1700 [facility] Home Med (Home Med) 1 unit PO Q12 [facility] Last Admin: 09/27/17 09:46 Dose: 1 unit Sodium Chloride (Sodium Chloride 0.9%) 1,000 mls @ 75 mls/hr IV .[id number] [facility] Last Admin: 09/26/17 12:30 Dose: 75 mls/hr Levalbuterol HCl (Xopenex) 0.63 mg IH [id number] PRN PRN Reason: Shortness of Breath Last Admin: 09/27/17 08:12 Dose: 0.63 mg Lidocaine (Lidoderm) 1 ea TD DAILY [facility] Last Admin: 09/27/17 09:47 Dose: 1 ea Methylprednisolone (Solu-Medrol) 40 mg IVP DAILY [facility] Morphine Sulfate (Morphine) 0.5 mg IVP Q4H PRN PRN Reason: Pain, moderate (4-7) Ondansetron HCl (Zofran Inj) 6 mg IVP Q4H PRN PRN Reason: Nausea/Vomiting Polyethylene Glycol (Miralax) 17 gm PO BID [facility] Last Admin: 09/27/17 09:47 Dose: 17 gm Sennosides (Senokot Tab) 17.2 mg PO HS [facility] Last Admin: 09/26/17 22:26 Dose: 17.2 mg Tiotropium [place] (Spiriva) 18 mcg IH DAILY [facility] Last Admin: 09/27/17 09:44 Dose: 18 mcg - Labs Labs: 09/27/17 07:00 09/27/17 07:00
[2017-09-28] MEDS: Sodium Chloride 0.9% 1,000 ML IV SCH ×2 (03:00→16:31)
[2017-09-28 07:25] LABS: BASO # 0.01 K/mm3 (0.0-2.0); BASO % 0.2 % (0.0-3.0); GRAN # 3.67 (1.4-6.5); GRAN % 77.6 % (50.0-68.0); LYMPH # 0.6 (1.2-3.4); LYMPH % 12.5 % (22.0-35.0); MEAN CELL VOLUME 91.4 fl (80.0-105.0); MEAN CORPUSCULAR HEMOGLOBIN 29.8 pg (25.0-35.0); MEAN CORPUSCULAR HGB CONC 32.6 g/dl (31.0-37.0); MEAN PLATELET VOLUME 11.3 fl (7.0-11.0); MONO # 0.5 (0.1-0.6); MONO % 9.7 % (1.0-6.0); RBC 3.36 10^6/uL (3.5-6.1); RED CELL DISTRIBUTION WIDTH 13.7 % (11.5-14.5); WHITE BLOOD COUNT 4.7 10^3/ul (4.5-11.0)
[2017-09-28] MEDS: Budesonide 0.5 mg/2 ml Inhal Susp UD IH SCH ×2 (07:27→19:32)
[2017-09-28] MEDS: Arformoterol 15 mcg/2 ml Inh Sol IH SCH ×2 (07:27→19:32)
[2017-09-28] MEDS: Levalbuterol 0.63 MG/3 ML Inhal Soln UD IH PRN (07:28)
[2017-09-28 07:50] LABS: ALB/GLOB RATIO 1.3 (1.1-1.8); ALBUMIN 2.8 g/dL (3.0-4.8); ALT/SGPT 35 U/L (7-56); AST/SGOT 39 U/L (14-36); BLOOD UREA NITROGEN 34 mg/dL (7-21); GFR AFRICAN-AMERICAN > 60; GFR NON-AFRICAN AMERICAN 53
--- NOTE | 2017-09-28 08:45 | PN ---
DATE: 09/28/2017 PULMONARY PROGRESS NOTE SUBJECTIVE: The patient appears comfortable this morning. She is not short of breath at rest. PHYSICAL EXAMINATION: VITAL SIGNS: (Last noted in the computer): Temperature is 98.2, pulse is 88, respirations are 18/20, and blood pressure is 138/66. Oxygen saturation on nasal cannula is 93% to 94%. HEENT: Normocephalic and atraumatic. NECK: No JVD. CARDIOVASCULAR: Systolic ejection murmur at the lower left sternal border. No S3 gallop. LUNGS: Minimal/less rhonchi bilaterally. No wheezing. EXTREMITIES: Positive for mild edema. No cyanosis, no clubbing. Calves are nontender to palpation. GASTROINTESTINAL: Abdomen is soft, nontender and nondistended. Bowel sounds are positive. SKIN: No acute rash. NEUROLOGIC: Exam is limited at the present time. IMPRESSION 1. Severe dizziness, frequent falls. 2. End-stage chronic obstructive pulmonary disease. 3. Severe pulmonary hypertension. 4. Coronary artery disease. 5. Anemia. PLAN: The patient appears comfortable this morning. She is not short of breath at rest. She definitely appears less week. She does state to feeling much better overall. On physical exam, no significant bronchospasm is noted. I will continue the current nebulizer treatments and low-dose intravenous steroids for now. The patient will remain off her Adempas for now. Inputs by Cardiology and Renal are noted. Clinical status of the patient is certainly improved - compared to the initial presentation. However, again, unfortunately, the future status/prognosis for this patient remains poor. I will discuss the above with the attending physician. Evgeny Briggs MD [facility]
[2017-09-28] MEDS ORDERED: levoFLOXacin 750 mg in D5W 150 ML BAG IVPB SCH (10:00)
[2017-09-28] MEDS ORDERED: MethylPREDNISolone 40 mg Vial IVP SCH (10:00)
[2017-09-28] MEDS: Enoxaparin 40 mg Syringe SC SCH (10:41)
[2017-09-28] MEDS: Lidocaine 5% Patch TD SCH (10:42)
[2017-09-28] MEDS: Tiotropium 18 mcg Cap For Inhalation IH SCH (10:43)
[2017-09-28] MEDS: POLYETHYLENE GLYCOL 3350 17 GM/Dose PACKET PO SCH ×2 (10:43→17:37)
--- NOTE | 2017-09-28 13:40 | CP.PCM.PN ---
<Gadiel Vila - Last Filed: 09/28/17 13:35> Subjective - Date & Time of Evaluation Date of Evaluation: 09/28/17 Time of Evaluation: 13:35 - Subjective Subjective: Medicine progress note for hospitalist service Patient seen and examined at bedside this morning. No acute overnight events or new complaints reported. Patient wishes to have an open MRI which she wants to do as an outpatient. Discussed importance of doing MRI to better evaluate back pain however patient does not wish to proceed with MRI as an inpatient. Saldivar discontinued and steroids tapered. Denies chest pain, palpitations, SOB. Objective - Vital Signs/Intake and Output Vital Signs (last 24 hours): Temp Pulse Resp BP Pulse Ox 97.8 F 76 18 194/97 H 96 09/28/17 08:17 09/28/17 08:17 09/28/17 08:17 09/28/17 08:17 09/28/17 08:17 Intake and Output: 09/28/17 09/28/17 06:59 18:59 Intake Total 690 Output Total 1000 Balance -310 - Medications Medications: Current Medications Arformoterol Tartrate (Brovana) 15 mcg IH BID [facility] Last Admin: 09/28/17 07:27 Dose: 15 mcg Aspirin (Ecotrin) 81 mg PO DAILY [facility] Last Admin: 09/28/17 10:43 Dose: 81 mg Atorvastatin Calcium (Lipitor) 10 mg PO DAILY [facility] Last Admin: 09/28/17 10:43 Dose: 10 mg Budesonide (Pulmicort Respules) 0.5 mg IH [id number] [facility] Last Admin: 09/28/17 07:27 Dose: 0.5 mg Calcium Carbonate (Caltrate) 600 mg PO DAILY [facility] Last Admin: 09/28/17 10:42 Dose: 600 mg Clopidogrel Bisulfate (Plavix) 75 mg PO DAILY [facility] Last Admin: 09/28/17 10:43 Dose: 75 mg Docusate Sodium (Colace) 100 mg PO DAILY [facility] Last Admin: 09/28/17 10:57 Dose: Not Given Enoxaparin Sodium (Lovenox) 40 mg SC DAILY [facility] PRN Reason: Protocol Last Admin: 09/28/17 10:41 Dose: 40 mg Famotidine (Pepcid) 40 mg PO HS [facility] Last Admin: 09/27/17 23:35 Dose: Not Given Home Med (Home Med) 1 unit PO [id number],[id number],[id number] [facility] Home Med (Home Med) 1 unit PO Q12 [facility] Last Admin: 09/28/17 10:46 Dose: 1 unit Sodium Chloride (Sodium Chloride 0.9%) 1,000 mls @ 75 mls/hr IV .[id number] [facility] Last Admin: 09/28/17 03:00 Dose: Not Given Levalbuterol HCl (Xopenex) 0.63 mg IH [id number] PRN PRN Reason: Shortness of Breath Last Admin: 09/28/17 07:28 Dose: 0.63 mg Lidocaine (Lidoderm) 1 ea TD DAILY [facility] Last Admin: 09/28/17 10:42 Dose: 1 ea Morphine Sulfate (Morphine) 0.5 mg IVP Q4H PRN PRN Reason: Pain, moderate (4-7) Ondansetron HCl (Zofran Inj) 6 mg IVP Q4H PRN PRN Reason: Nausea/Vomiting Polyethylene Glycol (Miralax) 17 gm PO BID [facility] Last Admin: 09/28/17 10:43 Dose: Not Given Prednisone (Prednisone Tab) 30 mg PO DAILY [facility] Sennosides (Senokot Tab) 17.2 mg PO HS [facility] Last Admin: 09/27/17 23:35 Dose: Not Given Tiotropium [place] (Spiriva) 18 mcg IH DAILY [facility] Last Admin: 09/28/17 10:43 Dose: 18 mcg - Labs Labs: 09/28/17 06:45 09/28/17 06:45 - Constitutional Appears: No Acute Distress - Head Exam Head Exam: ATRAUMATIC, NORMAL INSPECTION, NORMOCEPHALIC - Eye Exam Eye Exam: EOMI, PERRL - ENT Exam ENT Exam: Mucous Membranes Moist - Respiratory Exam Respiratory Exam: absent: Rales, Rhonchi, Wheezes - Cardiovascular Exam Cardiovascular Exam: +S1, +S2. absent: Gallop, Rubs, Murmur - GI/Abdominal Exam GI & Abdominal Exam: Soft, Normal Bowel Sounds. absent: Distended, Firm, Guarding, Rigid, Tenderness, Rebound - Neurological Exam Neurological Exam: Alert, Awake, Oriented x3 - Psychiatric Exam Psychiatric exam: Normal Affect, Normal Mood - Skin Skin Exam: Dry, Intact, Normal Color, Warm Assessment and Plan - Assessment and Plan (Free Text) Plan: 82yo female with history of CAD s/p stents, O2-dependent COPD, pulmonary HTN, HLD, HTN, emphysema, and osteoporosis admitted s/p fall for intractable low back pain. Presently being treated for intractable low back pain, leukopenia and COPD. 1. Low back pain s/p fall - CTH negative for intracranial pathology - LS XR reviewed; revealed T12 compression fracture of indeterminate age - L wrist xray reviewed - ortho consulted, Dr. Wilson, cast removed, splint in place - TSH wnl - orthostatics negative, holding adempas per pulmonary recommendations - Echo EF 53%; see full report - Carotid US 20-39% stenosis in b/l ICA - pain mgmt: morphine 0.5mg q4, lidoderm patch - MRI of the thoracic/lumbar spine ordered due to intractable low back pain however patient refused; wishes to have an MRI done as an outpatient in an open- MRI - PT/OT recommend [facility] - Cardiology, Dr. Echavarria consulted, recs appreciated - Neurology, Dr. Grady consulted, recs appreciated - Ortho, Dr. Heaton consulted, recs appreciated 2. Neutropenia, resolved - likely secondary to medication (abx); levaquin held and currently improved 3. COPD - continue nebulizers - maintain 02 sat > 88% - steroid taper as indicated - Pulm consulted - Dr. Briggs; continue spiriva, xopenex and pulmicort 4. Anemia - per workup, likely multifactorial secondary to chronic disease and b12 deficiency - B12 supplemented - transfused 1u PRBC 5. Hx CAD s/p stents - Cardio Dr. Echavarria consulted, appreciate all recs - Continue ASA, plavix, and lipitor 6. Hypocalcemia with hx of osteoporosis - continue caltrate 7. GERD - protonix 40mg IV 8. HLD - lipitor 9. DVT and GI ppx - Lovenox/Pepcid Disposition: Patient pending placement to [facility], may be discharged for physical therapy once bed is available Patient was seen, examined and discussed with attending, Dr. Melo <Blaine Melo - Last Filed: 09/30/17 15:08> Objective - Vital Signs/Intake and Output Vital Signs (last 24 hours): Temp Pulse Resp BP Pulse Ox 97.5 F L 67 16 147/78 100 09/30/17 07:30 09/30/17 07:30 09/30/17 07:30 09/30/17 07:30 09/30/17 07:30 Intake and Output: 09/30/17 09/30/17 06:59 18:59 Intake Total 1230 600 Output Total 1600 900 Balance -370 -300 - Medications Medications: Current Medications Arformoterol Tartrate (Brovana) 15 mcg IH BID [facility] Last Admin: 09/30/17 07:28 Dose: 15 mcg Aspirin (Ecotrin) 81 mg PO DAILY [facility] Last Admin: 09/30/17 10:36 Dose: 81 mg Atorvastatin Calcium (Lipitor) 10 mg PO DAILY [facility] Last Admin: 09/30/17 10:37 Dose: 10 mg Budesonide (Pulmicort Respules) 0.5 mg IH [id number] [facility] Last Admin: 09/30/17 07:29 Dose: 0.5 mg Calcium Carbonate (Caltrate) 600 mg PO DAILY [facility] Last Admin: 09/30/17 10:36 Dose: 600 mg Clopidogrel Bisulfate (Plavix) 75 mg PO DAILY [facility] Last Admin: 09/30/17 10:37 Dose: 75 mg Docusate Sodium (Colace) 100 mg PO DAILY [facility] Last Admin: 09/30/17 10:36 Dose: 100 mg Enoxaparin Sodium (Lovenox) 40 mg SC DAILY [facility] PRN Reason: Protocol Last Admin: 09/30/17 10:53 Dose: Not Given Famotidine (Pepcid) 40 mg PO HS [facility] Last Admin: 09/29/17 23:25 Dose: 40 mg Home Med (Home Med) 1 unit PO 0130,0930,1700 [facility] Home Med (Home Med) 1 unit PO Q12 [facility] Last Admin: 09/30/17 10:36 Dose: 1 unit Sodium Chloride (Sodium Chloride 0.9%) 1,000 mls @ 75 mls/hr IV .[id number] [facility] Last Admin: 09/29/17 09:40 Dose: 75 mls/hr Levalbuterol HCl (Xopenex) 0.63 mg IH [id number] PRN PRN Reason: Shortness of Breath Last Admin: 09/29/17 13:28 Dose: 0.63 mg Lidocaine (Lidoderm) 1 ea TD DAILY [facility] Last Admin: 09/30/17 10:37 Dose: 1 ea Ondansetron HCl (Zofran Inj) 6 mg IVP Q4H PRN PRN Reason: Nausea/Vomiting Last Admin: 09/28/17 15:55 Dose: 6 mg Polyethylene Glycol (Miralax) 17 gm PO BID [facility] Last Admin: 09/30/17 10:37 Dose: Not Given Prednisone (Prednisone Tab) 20 mg PO DAILY [facility] Last Admin: 09/30/17 10:37 Dose: 20 mg Sennosides (Senokot Tab) 17.2 mg PO HS [facility] Last Admin: 09/28/17 22:17 Dose: Not Given Tiotropium [place] (Spiriva) 18 mcg IH DAILY [facility] Last Admin: 09/30/17 10:38 Dose: 18 mcg Tramadol HCl (Ultram) 50 mg PO Q8H PRN PRN Reason: Pain, moderate (4-7) Last Admin: 09/30/17 13:20 Dose: 50 mg - Labs Labs: 09/29/17 09:55 09/29/17 09:55 Attending/Attestation - Attestation I have personally seen and examined this patient.: Yes I have fully participated in the care of the patient.: Yes I have reviewed all pertinent clinical information, including history, physical exam and plan: Yes Notes (Text): 09/30/17 15:06 Patient was seen and examined with medical records assistant. Agreed with resident assessment and plan. 82 yrs female with history of CAD s/p stents, O2-dependent COPD, pulmonary HTN , HTN, HLD, emphysema, and osteoporosis admitted s/p fall for intractable low back pain, X rays showed T 12 wedge fracture, MRI of thoraccic spine was recommended but patient has refused.She wants to have open MRI as out patient.Family is aware of patient decision.This was discussed in detail with them.Patient is still having pain but it is improving. COPD is improving.Patient is not wheezing, on tapering dose of Prednisone. Management plan was discussed in detail with patient Education was provided.
[2017-09-28] MEDS: Morphine 2 mg/ml ISec IVP PRN (15:51)
--- NOTE | 2017-09-28 18:22 | PN ---
CARDIOLOGY FOLLOWUP DATE: 09/28/2017 SUBJECTIVE: The patient is without distress. Blood pressure is elevated today in the 190s. OBJECTIVE: NECK: Negative JVD. LUNGS: Without rales. HEART: S1 and S2. EXTREMITIES: Without edema. LABORATORY DATA: Hemoglobin is 10. Chemistries; BUN and creatinine is 34 and 1.0. IMPRESSION: 1. Weakness. 2. Recurrent falls. 3. Severe chronic obstructive pulmonary disease. 4. Coronary artery disease. 5. Stable angina. 6. Hypertension. PLAN: Given these findings, we will start the patient on Norvasc for better blood pressure control. Harrison Echavarria MD
[2017-09-29] MEDS: Morphine 2 mg/ml ISec IVP PRN (05:13)
[2017-09-29] MEDS: Budesonide 0.5 mg/2 ml Inhal Susp UD IH SCH ×2 (07:43→20:41)
[2017-09-29] MEDS: Arformoterol 15 mcg/2 ml Inh Sol IH SCH ×2 (07:43→20:41)
--- NOTE | 2017-09-29 07:49 | PN ---
DATE: 09/29/2017 PULMONARY NOTE SUBJECTIVE: The patient appears comfortable this morning. She is not short of breath at rest. PHYSICAL EXAMINATION: VITAL SIGNS: (Last noted in the computer): Temperature is 97.8, pulse 72, respirations 18, blood pressure 150/67. Oxygen saturation on nasal cannula is 96%. HEENT: Normocephalic, atraumatic. No JVD. CARDIOVASCULAR: Systolic ejection murmur at the lower left sternal border. No S3 gallop. LUNGS: Very minimal/less rhonchi. No wheezing. EXTREMITIES: Positive for mild edema. No cyanosis, no clubbing. Calves are nontender to palpation. GI: Abdomen is soft, nontender and nondistended. Bowel sounds are positive. SKIN: No acute rash. NEUROLOGIC: Limited at the present time. IMPRESSION: 1. Severe dizziness, frequent falls. 2. End-stage chronic obstructive pulmonary disease. 3. Severe pulmonary hypertension. 4. Coronary artery disease. 5. Anemia. PLAN: The patient appears very comfortable this morning. She is not short of breath at rest. She is certainly less weak. She does state to feeling much better overall. On physical exam, there is no significant bronchospasm noted. In addition, the oxygen saturation on nasal cannula is now 96%. I will continue the current nebulizer treatments and oral steroids (changed yesterday) for now. The patient's Adempas continues to be on hold. Again, I want to see what happens when the patient ambulates. Inputs by Cardiology and Renal are noted. Clinical status of the patient is certainly improved - compared to the initial presentation. However, again, unfortunately, the future status/prognosis for this patient remains poor. All are aware. I will discuss the above with the attending physician. Evgeny Briggs MD [facility]
[2017-09-29] MEDS: Tiotropium 18 mcg Cap For Inhalation IH SCH (09:38)
[2017-09-29] MEDS: Lidocaine 5% Patch TD SCH (09:39)
[2017-09-29] MEDS: Enoxaparin 40 mg Syringe SC SCH (09:39)
[2017-09-29] MEDS: POLYETHYLENE GLYCOL 3350 17 GM/Dose PACKET PO SCH ×2 (09:39→17:15)
[2017-09-29] MEDS: Sodium Chloride 0.9% 1,000 ML IV SCH (09:40)
[2017-09-29 10:04] LABS: BASO # 0.01 K/mm3 (0.0-2.0); BASO % 0.2 % (0.0-3.0); EOS % 0.4 % (1.5-5.0); GRAN # 3.76 (1.4-6.5); GRAN % 75.8 % (50.0-68.0); HEMOGLOBIN 10.3 g/dL (12.0-16.0); LYMPH # 0.6 (1.2-3.4); LYMPH % 12.9 % (22.0-35.0); MEAN CORPUSCULAR HEMOGLOBIN 30.2 pg (25.0-35.0); MEAN CORPUSCULAR HGB CONC 32.5 g/dl (31.0-37.0); MEAN PLATELET VOLUME 11.3 fl (7.0-11.0); MONO # 0.5 (0.1-0.6); MONO % 10.7 % (1.0-6.0); RBC 3.41 10^6/uL (3.5-6.1); RED CELL DISTRIBUTION WIDTH 13.5 % (11.5-14.5)
[2017-09-29 10:16] LABS: ALB/GLOB RATIO 1.3 (1.1-1.8); ALT/SGPT 42 U/L (7-56); AST/SGOT 30 U/L (14-36); BLOOD UREA NITROGEN 24 mg/dL (7-21); CALCIUM 8.8 mg/dL (8.4-10.5); GFR AFRICAN-AMERICAN > 60; GFR NON-AFRICAN AMERICAN > 60
--- NOTE | 2017-09-29 12:48 | PN ---
DATE: 09/29/2017 CARDIOLOGY FOLLOWUP NOTE SUBJECTIVE: The patient is in bed without shortness of breath. PHYSICAL EXAMINATION: VITAL SIGNS: Blood pressure of 158/82 with the heart rate in the 70s. NECK: Negative JVD. LUNGS: Without rales. HEART: Reveals S1 and S2. EXTREMITIES: Without edema. LABORATORY DATA: Hemoglobin is 10.3. Chemistries: BUN and creatinine is 24 and 0.8. IMPRESSION 1. Recurrent dizziness. 2. Severe chronic obstructive pulmonary disease. 3. Stable angina. 4. Coronary artery disease. 5. History of percutaneous transluminal coronary angioplasty and stent in the past. PLAN: 1. Given these findings, the patient's respiratory status is stable. 2. There are no contraindications for an MRI with her previously placed stents. Harrison Echavarria MD
[2017-09-29] MEDS: Levalbuterol 0.63 MG/3 ML Inhal Soln UD IH PRN (13:28)
--- NOTE | 2017-09-29 18:07 | CP.PCM.PN ---
<Gadiel Vila - Last Filed: 09/29/17 18:04> Subjective - Date & Time of Evaluation Date of Evaluation: 09/29/17 Time of Evaluation: 07:40 - Subjective Subjective: Medicine progress note Patient seen and examined at bedside this morning. No acute overnight events or new complaints reported. Patient aware of pending discharge to [facility]. Declined inpatient MRI. Awaiting authorization from insurance company. Denies chest pain , palpitations. Objective - Vital Signs/Intake and Output Vital Signs (last 24 hours): Temp Pulse Resp BP Pulse Ox 97.5 F L 78 20 168/72 H 97 09/29/17 07:30 09/29/17 17:08 09/29/17 07:30 09/29/17 17:08 09/29/17 07:30 Intake and Output: 09/29/17 09/29/17 06:59 18:59 Intake Total 2580 600 Balance 2580 600 - Medications Medications: Current Medications Arformoterol Tartrate (Brovana) 15 mcg IH BID [facility] Last Admin: 09/29/17 07:43 Dose: 15 mcg Aspirin (Ecotrin) 81 mg PO DAILY [facility] Last Admin: 09/29/17 09:38 Dose: 81 mg Atorvastatin Calcium (Lipitor) 10 mg PO DAILY [facility] Last Admin: 09/29/17 09:38 Dose: 10 mg Budesonide (Pulmicort Respules) 0.5 mg IH [id number] [facility] Last Admin: 09/29/17 07:43 Dose: 0.5 mg Calcium Carbonate (Caltrate) 600 mg PO DAILY [facility] Last Admin: 09/29/17 09:38 Dose: 600 mg Clopidogrel Bisulfate (Plavix) 75 mg PO DAILY [facility] Last Admin: 09/29/17 09:38 Dose: 75 mg Docusate Sodium (Colace) 100 mg PO DAILY [facility] Last Admin: 09/29/17 09:39 Dose: Not Given Enoxaparin Sodium (Lovenox) 40 mg SC DAILY [facility] PRN Reason: Protocol Last Admin: 09/29/17 09:39 Dose: 40 mg Famotidine (Pepcid) 40 mg PO HS [facility] Last Admin: 09/28/17 20:04 Dose: 40 mg Home Med (Home Med) 1 unit PO 0130,0930,1700 [facility] Home Med (Home Med) 1 unit PO Q12 [facility] Last Admin: 09/29/17 09:37 Dose: 1 unit Sodium Chloride (Sodium Chloride 0.9%) 1,000 mls @ 75 mls/hr IV .[id number] [facility] Last Admin: 09/29/17 09:40 Dose: 75 mls/hr Levalbuterol HCl (Xopenex) 0.63 mg IH [id number] PRN PRN Reason: Shortness of Breath Last Admin: 09/29/17 13:28 Dose: 0.63 mg Lidocaine (Lidoderm) 1 ea TD DAILY [facility] Last Admin: 09/29/17 09:39 Dose: 1 ea Morphine Sulfate (Morphine) 0.5 mg IVP Q4H PRN PRN Reason: Pain, moderate (4-7) Last Admin: 09/29/17 05:13 Dose: 0.5 mg Ondansetron HCl (Zofran Inj) 6 mg IVP Q4H PRN PRN Reason: Nausea/Vomiting Last Admin: 09/28/17 15:55 Dose: 6 mg Polyethylene Glycol (Miralax) 17 gm PO BID [facility] Last Admin: 09/29/17 17:15 Dose: 17 gm Prednisone (Prednisone Tab) 20 mg PO DAILY [facility] Sennosides (Senokot Tab) 17.2 mg PO HS [facility] Last Admin: 09/27/17 23:35 Dose: Not Given Tiotropium [place] (Spiriva) 18 mcg IH DAILY [facility] Last Admin: 09/29/17 09:38 Dose: 18 mcg - Labs Labs: 09/29/17 09:55 09/29/17 09:55 Assessment and Plan - Assessment and Plan (Free Text) Plan: 82yo female with history of CAD s/p stents, O2-dependent COPD, pulmonary HTN, HLD, HTN, emphysema, and osteoporosis admitted s/p fall for intractable low back pain. Presently being treated for intractable low back pain, leukopenia and COPD. 1. Low back pain s/p fall - CTH negative for intracranial pathology - LS XR reviewed; revealed T12 compression fracture of indeterminate age - L wrist xray reviewed - ortho consulted, Dr. Wilson, cast removed, splint in place - TSH wnl - orthostatics negative, holding adempas per pulmonary recommendations - Echo EF 53%; see full report - Carotid US 20-39% stenosis in b/l ICA - MRI of the thoracic/lumbar spine ordered due to intractable low back pain however patient refused; wishes to have an MRI done as an outpatient in an open- MRI - PT/OT recommend [facility] - pending insurance authorization to discharge to [facility] - Cardiology, Dr. Echavarria consulted, recs appreciated - Neurology, Dr. Grady consulted, recs appreciated - Ortho, Dr. Heaton consulted, recs appreciated 2. COPD - continue nebulizers - maintain 02 sat > 88% - steroid taper as indicated - Pulm consulted - Dr. Briggs; continue spiriva, xopenex and pulmicort 3. Neutropenia, resolved - likely secondary to medication (abx); levaquin held and currently improved 4. Anemia - per workup, likely multifactorial secondary to chronic disease and b12 deficiency - B12 supplemented - transfused 1u PRBC 5. Hx CAD s/p stents - Cardio Dr. Echavarria consulted, appreciate all recs - Continue ASA, plavix, and lipitor 6. Hypocalcemia with hx of osteoporosis - continue caltrate 7. GERD - protonix 40mg IV 8. HLD - lipitor 9. DVT and GI ppx - Lovenox/Pepcid Disposition: Patient pending placement to [facility], may be discharged for physical therapy once bed is available Patient was seen, examined and discussed with attending, Dr. Melo <Blaine Melo - Last Filed: 09/30/17 15:10> Objective - Vital Signs/Intake and Output Vital Signs (last 24 hours): Temp Pulse Resp BP Pulse Ox 97.5 F L 67 16 147/78 100 09/30/17 07:30 09/30/17 07:30 09/30/17 07:30 09/30/17 07:30 09/30/17 07:30 Intake and Output: 09/30/17 09/30/17 06:59 18:59 Intake Total 1230 600 Output Total 1600 900 Balance -370 -300 - Medications Medications: Current Medications Arformoterol Tartrate (Brovana) 15 mcg IH BID [facility] Last Admin: 09/30/17 07:28 Dose: 15 mcg Aspirin (Ecotrin) 81 mg PO DAILY [facility] Last Admin: 09/30/17 10:36 Dose: 81 mg Atorvastatin Calcium (Lipitor) 10 mg PO DAILY [facility] Last Admin: 09/30/17 10:37 Dose: 10 mg Budesonide (Pulmicort Respules) 0.5 mg IH [id number] [facility] Last Admin: 09/30/17 07:29 Dose: 0.5 mg Calcium Carbonate (Caltrate) 600 mg PO DAILY [facility] Last Admin: 09/30/17 10:36 Dose: 600 mg Clopidogrel Bisulfate (Plavix) 75 mg PO DAILY [facility] Last Admin: 09/30/17 10:37 Dose: 75 mg Docusate Sodium (Colace) 100 mg PO DAILY [facility] Last Admin: 09/30/17 10:36 Dose: 100 mg Enoxaparin Sodium (Lovenox) 40 mg SC DAILY [facility] PRN Reason: Protocol Last Admin: 09/30/17 10:53 Dose: Not Given Famotidine (Pepcid) 40 mg PO [facility] Last Admin: 09/29/17 23:25 Dose: 40 mg Home Med (Home Med) 1 unit PO 0130,0930,1700 [facility] Home Med (Home Med) 1 unit PO Q12 [facility] Last Admin: 09/30/17 10:36 Dose: 1 unit Sodium Chloride (Sodium Chloride 0.9%) 1,000 mls @ 75 mls/hr IV .[id number] [facility] Last Admin: 09/29/17 09:40 Dose: 75 mls/hr Levalbuterol HCl (Xopenex) 0.63 mg IH [id number] PRN PRN Reason: Shortness of Breath Last Admin: 09/29/17 13:28 Dose: 0.63 mg Lidocaine (Lidoderm) 1 ea TD DAILY [facility] Last Admin: 09/30/17 10:37 Dose: 1 ea Ondansetron HCl (Zofran Inj) 6 mg IVP Q4H PRN PRN Reason: Nausea/Vomiting Last Admin: 09/28/17 15:55 Dose: 6 mg Polyethylene Glycol (Miralax) 17 gm PO BID [facility] Last Admin: 09/30/17 10:37 Dose: Not Given Prednisone (Prednisone Tab) 20 mg PO DAILY [facility] Last Admin: 09/30/17 10:37 Dose: 20 mg Sennosides (Senokot Tab) 17.2 mg PO HS [facility] Last Admin: 09/28/17 22:17 Dose: Not Given Tiotropium [place] (Spiriva) 18 mcg IH DAILY [facility] Last Admin: 09/30/17 10:38 Dose: 18 mcg Tramadol HCl (Ultram) 50 mg PO Q8H PRN PRN Reason: Pain, moderate (4-7) Last Admin: 09/30/17 13:20 Dose: 50 mg - Labs Labs: 09/29/17 09:55 09/29/17 09:55 Attending/Attestation - Attestation I have personally seen and examined this patient.: Yes I have fully participated in the care of the patient.: Yes I have reviewed all pertinent clinical information, including history, physical exam and plan: Yes Notes (Text): 09/30/17 15:09 Patient was seen and examined with emergency medical service manager. Agreed with resident assessment and plan. 82 yrs female with history of CAD s/p stents, O2-dependent COPD, pulmonary HTN , HTN, HLD, emphysema, and osteoporosis admitted s/p fall for intractable low back pain, X rays showed T 12 wedge fracture, MRI of thoraccic spine was recommended but patient has refused.She wants to have open MRI as out patient.Family is aware of patient decision.Patient does not has any focal deficit. COPD is improving.Patient is not wheezing, on tapering dose of Prednisone. Patient is awaiting for rehab placement . Management plan was discussed in detail with patient Education was provided.
[2017-09-30] MEDS: Arformoterol 15 mcg/2 ml Inh Sol IH SCH (07:28)
[2017-09-30] MEDS: Budesonide 0.5 mg/2 ml Inhal Susp UD IH SCH (07:29)
--- NOTE | 2017-09-30 08:07 | PN ---
DATE: 09/30/2017 PULMONARY NOTE SUBJECTIVE: The patient appears comfortable this morning. She is not short of breath at rest. PHYSICAL EXAMINATION: VITAL SIGNS: Last temperature recorded is 97.5, pulse 78, respirations 18, blood pressure 168/72. Oxygen saturation on nasal cannula is 97%. HEENT: Normocephalic, atraumatic. NECK: No JVD. CARDIOVASCULAR: Systolic ejection murmur at the lower left sternal border. No S3 gallop. LUNGS: Very minimal/less rhonchi. No wheezing. EXTREMITIES: Positive for mild edema. No cyanosis, no clubbing. Calves are nontender to palpation. GI: Abdomen is soft, nontender and nondistended. Bowel sounds are positive. SKIN: No acute rash. NEUROLOGIC: Exam limited at the present time. IMPRESSION: 1. Severe dizziness, frequent falls. 2. End-stage chronic obstructive pulmonary disease. 3. Severe pulmonary hypertension. 4. Coronary artery disease. 5. Anemia. PLAN: The patient appears comfortable this morning. She is not short of breath at rest. She is less weak. She does state to feeling much better overall. On physical exam, there is no significant bronchospasm noted. In addition, the alveolar-arterial gradient is significantly less. I will continue with the current nebulizer treatments and low-dose oral steroids (decreased yesterday) for now. The patient also remains off her Adempas. Again, before reinstituting drugs for her pulmonary hypertension, I would like to see how the patient ambulates. I will discuss the patient with physical therapy today. Input by Cardiology (Dr. Echavarria) is also noted. Clinical status of the patient is certainly improved - compared to the initial presentation. However, again, unfortunately, the future status/prognosis for this patient remains poor. I will discuss the above with the attending physician. Evgeny Briggs MD MTDD
[2017-09-30] MEDS: Lidocaine 5% Patch TD SCH (10:37)
[2017-09-30] MEDS: Enoxaparin 40 mg Syringe SC SCH ×2 (10:37→10:53)
[2017-09-30] MEDS: POLYETHYLENE GLYCOL 3350 17 GM/Dose PACKET PO SCH ×2 (10:37→17:45)
[2017-09-30] MEDS: Tiotropium 18 mcg Cap For Inhalation IH SCH (10:38)
--- NOTE | 2017-09-30 14:47 | CP.PCM.DIS ---
<Gadiel Vila - Last Filed: 09/30/17 19:25> Provider - Provider Date of Admission: 09/23/17 10:30 Attending physician: Blaine Melo MD Primary care physician: Neeraj Valentine MD Consults: Nephrology - Dr. Suarez Pulmonary - Dr. Briggs Orthopedics - Dr. Heaton Cardiology - Dr. Echavarria Time Spent in preparation of Discharge (in minutes): 35 Hospital Course - Lab Results Lab Results: Micro Results 09/24/17 14:30 Blood Blood Culture - Final NO GROWTH AFTER 5 DAYS 09/24/17 14:30 Blood Gram Stain - Final TEST NOT PERFORMED 09/24/17 14:15 Blood Blood Culture - Final NO GROWTH AFTER 5 DAYS 09/24/17 14:15 Blood Gram Stain - Final TEST NOT PERFORMED 09/24/17 20:00 Urine,Catheterized Urine Culture - Final No Growth (<1,000 CFU/ML) 09/23/17 19:40 Urine,Clean Catch Urine Culture - Final No Growth (<1,000 CFU/ML) Most Recent Lab Values WBC 5.0 10^3/ul (4.5-11.0) 09/29/17 09:55 RBC 3.41 10^6/uL (3.5-6.1) L 09/29/17 09:55 Hgb 10.3 g/dL (12.0-16.0) L 09/29/17 09:55 Hct 31.7 % (36.0-48.0) L 09/29/17 09:55 MCV 93.0 fl (80.0-105.0) 09/29/17 09:55 MCH 30.2 pg (25.0-35.0) 09/29/17 09:55 MCHC 32.5 g/dl (31.0-37.0) 09/29/17 09:55 RDW 13.5 % (11.5-14.5) 09/29/17 09:55 Plt Count 152 10^3/uL (120.0-450.0) 09/29/17 09:55 MPV 11.3 fl (7.0-11.0) H 09/29/17 09:55 Gran % 75.8 % (50.0-68.0) H 09/29/17 09:55 Lymph % (Auto) 12.9 % (22.0-35.0) L 09/29/17 09:55 [place] % (Auto) 10.7 % (1.0-6.0) H 09/29/17 09:55 Eos % (Auto) 0.4 % (1.5-5.0) L 09/29/17 09:55 Baso % (Auto) 0.2 % (0.0-3.0) 09/29/17 09:55 Gran # 3.76 (1.4-6.5) 09/29/17 09:55 Lymph # 0.6 (1.2-3.4) L 09/29/17 09:55 [place] # 0.5 (0.1-0.6) 09/29/17 09:55 Eos # 0.0 (0.0-0.7) 09/29/17 09:55 Baso # 0.01 K/mm3 (0.0-2.0) 09/29/17 09:55 Retic Count 1.42 % (0.5-1.5) 09/22/17 06:00 Sodium 136 mmol/L (132-148) 09/29/17 09:55 Potassium 3.7 mmol/L (3.6-5.0) 09/29/17 09:55 Chloride 100 mmol/L (98-107) 09/29/17 09:55 Carbon Dioxide 28 mmol/L (21-33) 09/29/17 09:55 Anion Gap 12 (10-20) 09/29/17 09:55 BUN 24 mg/dL (7-21) H 09/29/17 09:55 Creatinine 0.8 mg/dl (0.7-1.2) 09/29/17 09:55 Est GFR ( Amer) > 60 09/29/17 09:55 Est GFR (Non-Af Amer) > 60 09/29/17 09:55 POC Glucose (mg/dL) 103 mg/dL (65-110) 09/24/17 04:59 Random Glucose 115 mg/dL (70-110) H 09/29/17 09:55 Calcium 8.8 mg/dL (8.4-10.5) 09/29/17 09:55 Phosphorus 3.5 mg/dL (2.5-4.5) 09/24/17 08:35 Magnesium 1.7 mg/dL (1.7-2.2) 09/22/17 05:30 Iron 40 ug/dL (45-180) L 09/22/17 06:30 TIBC 264 ug/dL (265-497) L 09/22/17 06:30 % Saturation 15 % (20-55) L 09/22/17 06:30 Transferrin 220.27 mg/dL (206-381) 09/22/17 06:30 Ferritin 108.0 ng/mL 09/22/17 06:30 Total Bilirubin 0.4 mg/dL (0.2-1.3) 09/29/17 09:55 AST 30 U/L (14-36) 09/29/17 09:55 ALT 42 U/L (7-56) 09/29/17 09:55 Alkaline Phosphatase 46 U/L (38-126) 09/29/17 09:55 Lactate Dehydrogenase 472 U/L (333-699) 09/21/17 16:45 Total Creatine Kinase 131 U/L (35-230) 09/25/17 20:25 Troponin I < 0.01 ng/mL 09/24/17 14:20 NT-Pro-B Natriuret Pep 79.9 pg/mL (0-450) 09/21/17 16:45 Total Protein 5.3 g/dL (5.8-8.3) L 09/29/17 09:55 Albumin 3.0 g/dL (3.0-4.8) 09/29/17 09:55 Globulin 2.3 gm/dL 09/29/17 09:55 Albumin/Globulin Ratio 1.3 (1.1-1.8) 09/29/17 09:55 Vitamin B12 221 pg/mL (239-931) L 09/22/17 06:30 RBC Folate 388 ng/mL RBC (>280) 09/22/17 06:30 TSH 3rd Generation 2.05 mIU/mL (0.46-4.68) 09/21/17 16:45 Urine Color Yellow (YELLOW) 09/26/17 18:44 Urine Appearance Clear (CLEAR) 09/26/17 18:44 Urine pH 6.0 (4.7-8.0) 09/26/17 18:44 Ur Specific [place] 1.015 (1.005-1.035) 09/26/17 18:44 Urine Protein Negative mg/dL (<30 mg/dL) 09/26/17 18:44 Urine Glucose (UA) Negative mg/dL (NEGATIVE) 09/26/17 18:44 Urine Ketones Negative mg/dL (NEGATIVE) 09/26/17 18:44 Urine Blood Trace-intact (NEGATIVE) H 09/26/17 18:44 Urine Nitrate Negative (NEGATIVE) 09/26/17 18:44 Urine Bilirubin Negative (NEGATIVE) 09/26/17 18:44 Urine Urobilinogen 0.2 E.U./dL (<1 E.U./dL) 09/26/17 18:44 Ur Leukocyte Esterase Negative Livan/uL (NEGATIVE) 09/26/17 18:44 Urine RBC 0 - 2 /hpf (0-2) 09/26/17 18:44 Urine WBC 0 - 2 /hpf (0-6) 09/26/17 18:44 Ur Epithelial Cells 0 - 2 /hpf (0-5) 09/26/17 18:44 Urine Bacteria Many (NEG) 09/26/17 18:44 Urine Eosinophils Negative 09/26/17 18:44 Urine Myoglobin TNP 09/26/17 18:44 Ur Random Creatinine 9 mg/dL 09/26/17 18:44 U Random Total Protein 12 mg/L 09/26/17 18:55 Ur Random Sodium 155 meq/L 09/26/17 18:44 Ur Random Urea Nitrogn 169 mg/dL 09/26/17 18:44 Blood Type A POSITIVE 09/25/17 18:30 Antibody Screen Negative 09/25/17 18:30 Crossmatch See Detail 09/25/17 18:30 BBK History Checked Patient has bt 09/25/17 18:30 - Hospital Course Hospital Course: Shahida Shabazz is a 82yo female with history of CAD s/p stents, O2- dependent COPD, pulmonary HTN, hypertension, hyperlipidemia and osteoporosis who presented to [facility] with complaints of low back pain and right hip pain s/p fall. She has been experiencing episodes of dizziness for the weeks prior to her fall which she attributed to her medication, specifically adempas for pulmonary hypertension. Patient reported that she stood and walked across the room at which time the room felt as if it was spinning and then led her to fall. She denied any tongue biting, post-ictal like state, urinary incontinence , focal weakness, numbness, tingling. Pt denied any loss of consciousness or trauma to her head. Throughout the duration of the patient's hospital course the following workup/results/treatment were obtained: 1. Low back pain s/p fall - CTH was negative for intracranial pathology - Lumbar spine xray was reviewed; revealed T12 compression fracture of indeterminate age - MRI of the thoracic/lumbar spine ordered due to intractable low back pain however patient refused MRI despite multiple conversation with her and family at bedside. She wishes to have an MRI done as an outpatient in an open-MRI due to claustrophobia. Patient was stressed the importance of having an MRI done for further evaluation/treatment however denied despite multiple attempts. - orthopedics was consulted- Dr. Wilson; splint was placed on the left wrist - Left wrist xray revealed impaction fracture of the distal radius (see full report) - TSH was within normal limits - orthostatic blood pressure was negative - Adempas was discontinued per pulmonary recommendations - Echo EF 53%; see full report - Carotid US 20-39% stenosis in b/l ICA - PT/OT recommended AVIVA/HWS - Cardiology was consulted; Dr. Echavarria - Neurology was consulted - Dr. Grady 2. COPD - continue nebulizers - maintain 02 sat > 88% - steroid taper as indicated - Pulm consulted - Dr. Briggs; continue spiriva, xopenex and pulmicort 3. Neutropenia, resolved - likely secondary to medication; levaquin held and improved thereafter 4. Anemia - per workup, likely multifactorial secondary to chronic disease and b12 deficiency - B12 supplemented - transfused 1u PRBC 5. Hx CAD s/p stents - Cardio Dr. Echavarria consulted, appreciate all recs - Continue ASA, plavix, and lipitor 6. Hypocalcemia with hx of osteoporosis - continue caltrate 7. GERD - protonix 40mg IV 8. HLD - lipitor 9. DVT and GI ppx - Lovenox/Pepcid Disposition: Patient was medically cleared and subsequently discharged to subacute rehabilitation for physical therapy. Discussed workup/results and treatment with the family at bedside on multiple occasions. Instructed patient to follow up for MRI as soon as feasible as well as follow up with her primary doctor within 1 week of discharge from subacute rehab. Patient and family given opportunity to ask questions and all questions were answered at the time of meeting. Patient was seen, examined and discussed with attending, Dr. Melo Discharge Exam - Head Exam Head Exam: ATRAUMATIC, NORMAL INSPECTION, NORMOCEPHALIC - Eye Exam Eye Exam: EOMI, PERRL - ENT Exam ENT Exam: Mucous Membranes Moist - Respiratory Exam Respiratory Exam: absent: Rales, Rhonchi, Wheezes - Cardiovascular Exam Cardiovascular Exam: +S1, +S2. absent: Gallop, JVD, Rubs - GI/Abdominal Exam GI & Abdominal Exam: Soft. absent: Distended, Firm, Guarding, Rebound, Rigid - Extremities Exam Extremities exam: pedal pulses present - Neurological Exam Neurological exam: Alert, CN II-XII Intact, Oriented x3 - Psychiatric Exam Psychiatric exam: Normal Affect, Normal Mood - Skin Skin Exam: Dry, Intact, Normal Color, Warm Discharge Plan - Discharge Medications Prescriptions: predniSONE [predniSONE Tab] See Taper PO DAILY #15 tab - Follow Up Plan Condition: FAIR Disposition: REHAB FACILITY/REHAB UNIT Instructions: Influenza Virus Vaccine (By injection), Pneumococcal Vaccine for Adults (DC), Fall Prevention for Older Adults (GEN), Fall Prevention (DC) Additional Instructions: 1. Follow up with your primary doctor within 1 week of discharge from physical therapy/rehab 2. Follow up with your pulmonolgist, Dr. Briggs 3. Continue to take your medications as directed 4. Return to the emergency room should you have a worsening in your condition/ symptoms. Referrals: Neeraj Valentine MD [Primary Care Provider] - Evgeny Briggs MD [Staff Provider] - <Blaine Melo - Last Filed: 10/01/17 16:38> Provider - Provider Date of Admission: 09/23/17 10:30 Attending physician: Blaine Melo MD Primary care physician: Neeraj Valentine MD Hospital Course - Lab Results Lab Results: Micro Results 09/24/17 14:30 Blood Blood Culture - Final NO GROWTH AFTER 5 DAYS 09/24/17 14:30 Blood Gram Stain - Final TEST NOT PERFORMED 09/24/17 14:15 Blood Blood Culture - Final NO GROWTH AFTER 5 DAYS 09/24/17 14:15 Blood Gram Stain - Final TEST NOT PERFORMED 09/24/17 20:00 Urine,Catheterized Urine Culture - Final No Growth (<1,000 CFU/ML) 09/23/17 19:40 Urine,Clean Catch Urine Culture - Final No Growth (<1,000 CFU/ML) Most Recent Lab Values WBC 5.0 10^3/ul (4.5-11.0) 09/29/17 09:55 RBC 3.41 10^6/uL (3.5-6.1) L 09/29/17 09:55 Hgb 10.3 g/dL (12.0-16.0) L 09/29/17 09:55 Hct 31.7 % (36.0-48.0) L 09/29/17 09:55 MCV 93.0 fl (80.0-105.0) 09/29/17 09:55 MCH 30.2 pg (25.0-35.0) 09/29/17 09:55 MCHC 32.5 g/dl (31.0-37.0) 09/29/17 09:55 RDW 13.5 % (11.5-14.5) 09/29/17 09:55 Plt Count 152 10^3/uL (120.0-450.0) 09/29/17 09:55 MPV 11.3 fl (7.0-11.0) H 09/29/17 09:55 Gran % 75.8 % (50.0-68.0) H 09/29/17 09:55 Lymph % (Auto) 12.9 % (22.0-35.0) L 09/29/17 09:55 [place] % (Auto) 10.7 % (1.0-6.0) H 09/29/17 09:55 Eos % (Auto) 0.4 % (1.5-5.0) L 09/29/17 09:55 Baso % (Auto) 0.2 % (0.0-3.0) 09/29/17 09:55 Gran # 3.76 (1.4-6.5) 09/29/17 09:55 Lymph # 0.6 (1.2-3.4) L 09/29/17 09:55 [place] # 0.5 (0.1-0.6) 09/29/17 09:55 Eos # 0.0 (0.0-0.7) 09/29/17 09:55 Baso # 0.01 K/mm3 (0.0-2.0) 09/29/17 09:55 Retic Count 1.42 % (0.5-1.5) 09/22/17 06:00 Sodium 137 mmol/L (132-148) 09/30/17 18:08 Potassium 4.6 mmol/L (3.6-5.0) 09/30/17 18:08 Chloride 93 mmol/L (98-107) L 09/30/17 18:08 Carbon Dioxide 40 mmol/L (21-33) H D 09/30/17 18:08 Anion Gap 9 (10-20) L 09/30/17 18:08 BUN 20 mg/dL (7-21) 09/30/17 18:08 Creatinine 0.8 mg/dl (0.7-1.2) 09/30/17 18:08 Est GFR ( Amer) > 60 09/30/17 18:08 Est GFR (Non-Af Amer) > 60 09/30/17 18:08 POC Glucose (mg/dL) 103 mg/dL (65-110) 09/24/17 04:59 Random Glucose 159 mg/dL (70-110) H 09/30/17 18:08 Calcium 9.2 mg/dL (8.4-10.5) 09/30/17 18:08 Phosphorus 3.5 mg/dL (2.5-4.5) 09/24/17 08:35 Magnesium 1.7 mg/dL (1.7-2.2) 09/22/17 05:30 Iron 40 ug/dL (45-180) L 09/22/17 06:30 TIBC 264 ug/dL (265-497) L 09/22/17 06:30 % Saturation 15 % (20-55) L 09/22/17 06:30 Transferrin 220.27 mg/dL (206-381) 09/22/17 06:30 Ferritin 108.0 ng/mL 09/22/17 06:30 Total Bilirubin 0.4 mg/dL (0.2-1.3) 09/29/17 09:55 AST 30 U/L (14-36) 09/29/17 09:55 ALT 42 U/L (7-56) 09/29/17 09:55 Alkaline Phosphatase 46 U/L (38-126) 09/29/17 09:55 Lactate Dehydrogenase 472 U/L (333-699) 09/21/17 16:45 Total Creatine Kinase 131 U/L (35-230) 09/25/17 20:25 Troponin I < 0.01 ng/mL 09/24/17 14:20 NT-Pro-B Natriuret Pep 79.9 pg/mL (0-450) 09/21/17 16:45 Total Protein 5.3 g/dL (5.8-8.3) L 09/29/17 09:55 Albumin 3.0 g/dL (3.0-4.8) 09/29/17 09:55 Globulin 2.3 gm/dL 09/29/17 09:55 Albumin/Globulin Ratio 1.3 (1.1-1.8) 09/29/17 09:55 Vitamin B12 221 pg/mL (239-931) L 09/22/17 06:30 RBC Folate 388 ng/mL RBC (>280) 09/22/17 06:30 TSH 3rd Generation 2.05 mIU/mL (0.46-4.68) 09/21/17 16:45 Urine Color Yellow (YELLOW) 09/26/17 18:44 Urine Appearance Clear (CLEAR) 09/26/17 18:44 Urine pH 6.0 (4.7-8.0) 09/26/17 18:44 Ur Specific [place] 1.015 (1.005-1.035) 09/26/17 18:44 Urine Protein Negative mg/dL (<30 mg/dL) 09/26/17 18:44 Urine Glucose (UA) Negative mg/dL (NEGATIVE) 09/26/17 18:44 Urine Ketones Negative mg/dL (NEGATIVE) 09/26/17 18:44 Urine Blood Trace-intact (NEGATIVE) H 09/26/17 18:44 Urine Nitrate Negative (NEGATIVE) 09/26/17 18:44 Urine Bilirubin Negative (NEGATIVE) 09/26/17 18:44 Urine Urobilinogen 0.2 E.U./dL (<1 E.U./dL) 09/26/17 18:44 Ur Leukocyte Esterase Negative Livan/uL (NEGATIVE) 09/26/17 18:44 Urine RBC 0 - 2 /hpf (0-2) 09/26/17 18:44 Urine WBC 0 - 2 /hpf (0-6) 09/26/17 18:44 Ur Epithelial Cells 0 - 2 /hpf (0-5) 09/26/17 18:44 Urine Bacteria Many (NEG) 09/26/17 18:44 Urine Eosinophils Negative 09/26/17 18:44 Urine Myoglobin TNP 09/26/17 18:44 Ur Random Creatinine 9 mg/dL 09/26/17 18:44 U Random Total Protein 12 mg/L 09/26/17 18:55 Ur Random Sodium 155 meq/L 09/26/17 18:44 Ur Random Urea Nitrogn 169 mg/dL 09/26/17 18:44 Blood Type A POSITIVE 09/25/17 18:30 Antibody Screen Negative 09/25/17 18:30 Crossmatch See Detail 09/25/17 18:30 BBK History Checked Patient has bt 09/25/17 18:30 Attending/Attestation - Attestation I have personally seen and examined this patient.: Yes I have fully participated in the care of the patient.: Yes I have reviewed all pertinent clinical information, including history, physical exam and plan: Yes Notes (Text): 10/01/17 16:34 Patient was seen and examined with medical psychotherapist. .Family is at bed side. Agreed with resident assessment and plan. 82 yrs female with history of CAD s/p stents, O2-dependent COPD, pulmonary HTN , HTN, HLD, emphysema, and osteoporosis admitted s/p fall for intractable low back pain, X rays showed T 12 wedge fracture, MRI of thoraccic spine was recommended but patient has refused.She wants to have open MRI as out patient.Family is aware of patient decision.Patient does not has any focal deficit.Her pain is better but she will need MRI for further evaluation and may need Kyphoplasty depending on MRI.This issue was discussed in detail with patient and family.Patient is high risk for fall COPD is improved, patient is not wheezing, she is at baseline hypoxia.She is on tapering dose of Prednisone. Patient renal functions are stable at the time of discharge. Management plan was discussed in detail with patient Education was provided.
[2017-09-30 16:37] VITALS: BP 157/80; PULSE 85; RESP 20; TEMP 98; O2SAT 94
[2017-09-30] MEDS: Levalbuterol 0.63 MG/3 ML Inhal Soln UD IH PRN (17:11)
[2017-09-30 18:34] LABS: BLOOD UREA NITROGEN 20 mg/dL (7-21); CALCIUM 9.2 mg/dL (8.4-10.5); GFR AFRICAN-AMERICAN > 60; GFR NON-AFRICAN AMERICAN > 60
[2017-09-30] MEDS ORDERED: Influenza Vaccine 60 mcg/0.5 mL SYR (4YR UP) IM ONE (19:14)
== END 2017-09-30 20:54 | DRG 543 ==
LOC: ED 16:18 → ERH 19:38 → 3RSO 23:24 → OBSVTOIN 09-23 10:30 → 5RNO 09-24 02:19
PROVIDERS: ADMIT Family Medicine; ATTEND Internal Medicine
DX: M48.54XA Collapsed vertebra, not elsewhere classified, thoracic region, initial encounter for fracture (principal); N39.0 Urinary tract infection, site not specified; I27.21 Secondary pulmonary arterial hypertension; D70.2 Other drug-induced agranulocytosis; E83.51 Hypocalcemia; I65.29 Occlusion and stenosis of unspecified carotid artery; N28.1 Cyst of kidney, acquired; Z99.81 Dependence on supplemental oxygen; S52.502A Unspecified fracture of the lower end of left radius, initial encounter for closed fracture; D64.9 Anemia, unspecified; E53.8 Deficiency of other specified B group vitamins; E78.5 Hyperlipidemia, unspecified; F40.240 Claustrophobia; I10 Essential (primary) hypertension; I25.118 Atherosclerotic heart disease of native coronary artery with other forms of angina pectoris; J43.9 Emphysema, unspecified; K21.9 Gastro-esophageal reflux disease without esophagitis; K42.9 Umbilical hernia without obstruction or gangrene; K44.9 Diaphragmatic hernia without obstruction or gangrene; K59.00 Constipation, unspecified; M81.0 Age-related osteoporosis without current pathological fracture; R29.6 Repeated falls; W19.XXXA Unspecified fall, initial encounter; Z79.82 Long term (current) use of aspirin; Z87.891 Personal history of nicotine dependence; Z90.49 Acquired absence of other specified parts of digestive tract; Z95.5 Presence of coronary angioplasty implant and graft

== ENCOUNTER 2017-10-02 15:53 | Inpatient (IN) | payer MEDICARE, MEDICAID ==
--- NOTE | 2017-10-02 16:23 | ED PDOC ---
Arrival/HPI - General Chief Complaint: Altered Mental Status Time Seen by Provider: 10/02/17 15:57 Historian: Family (Son), [facility], EMS EM Caveat: Altered Mental Status - History of Present Illness Time/Duration: Prior to Arrival Symptom Onset: Gradual Symptom Course: Worsening Severity Level: Moderate Activities at Onset: Rest Associated Symptoms (Text): 10/02/17 16:20 Patient was transferred from the hospital to rehabilitation 2 days ago. She was sent back to the hospital today for a cough congestion and weakness fatigue poor by mouth intake and increasing confusion. History is from the transfer sheets EMS and the son. Patient is confused and unable to give an accurate history. No known fever. No vomiting or diarrhea. She has a fractured left wrist from frequent falls. Past Medical History - Infectious Disease Hx of Infectious Diseases: None - Tetanus Immunization Tetanus Immunization: Unknown - Cardiac Hx Cardiac Disorders: Yes (s/p stents) Hx Hypertension: Yes - Pulmonary Hx Chronic Obstructive Pulmonary Disease (COPD): Yes (O2 dependent) - Neurological Hx Paralysis: No - HEENT Hx HEENT Disorder: Yes Hx Cataracts: Yes - Renal Hx Renal Disorder: No - Endocrine/Metabolic Hx Endocrine Disorders: No - Hematological/Oncological Hx Blood Transfusions: Yes (2010) Hx Blood Transfusion Reaction: No - Integumentary Hx Dermatological Disorder: No - Musculoskeletal/Rheumatological Hx Musculoskeletal Disorders: Yes Hx Falls: Yes - Gastrointestinal Hx Gastrointestinal Disorders: Yes (INGUINAL HERNIA REPAIR) Hx Diverticulitis: Yes Hx Gall Bladder Disease: Yes (CHLOECYSTECTOOMY) - Genitourinary/Gynecological Hx Genitourinary Disorders: Yes Hx Incontinence: Yes - Psychiatric Hx Emotional Abuse: No Hx Physical Abuse: No Hx Substance Use: No - Surgical History Hx Appendectomy: Yes Hx Cardiac Catheterization: Yes Hx Cholecystectomy: Yes Hx Coronary Stent: Yes (X2) Other/Comment: Cyst removal in ovary. Inguinal Hernia Repair. 2 inches of intestine removed - Anesthesia Hx Anesthesia: Yes Hx Anesthesia Reactions: No Hx Malignant Hyperthermia: No - Suicidal Assessment Feels Threatened In Home Enviroment: No Family/Social History - Physician Review Nursing Documentation Reviewed: Yes Family/Social History: Unknown Family HX Smoking Status: Former Smoker (Quit smoking many years ago) Hx Alcohol Use: No Hx Substance Use: No Hx Substance Use Treatment: No Allergies/Home Meds Allergies/Adverse Reactions: Allergies codeine Adverse Reaction (Verified 10/02/17 16:13) VOMITING hydromorphone HCl [From Dilaudid] Adverse Reaction (Verified 10/02/17 16:13) VOMITING MYOCINS Adverse Reaction (Uncoded 10/02/17 16:13) VOMITING Home Medications: Home Meds Medication Instructions Recorded Confirmed Atorvastatin Calcium [Lipitor] 10 mg PO DAILY 02/09/12 10/02/17 Clopidogrel [Plavix] 75 mg PO DAILY 02/09/12 10/02/17 Ranolazine [Ranexa] 1,000 mg PO BID 01/21/15 10/02/17 Aspirin [Aspirin EC] 81 mg PO DAILY 01/19/16 10/02/17 Dexlansoprazole [Dexilant] 60 mg PO DAILY 01/19/16 10/02/17 traMADol [Ultram] 50 mg PO TID PRN 01/19/16 10/02/17 Arformoterol [Brovana] 1 carley NEB BID 03/26/17 10/02/17 Budesonide/Formoterol Fumarate 1 puff IH PRN PRN 08/18/17 10/02/17 [Symbicort 160-4.5 Mcg Inhaler] Levalbuterol Tartrate [Xopenex Hfa] 1 puff IH PRN PRN 08/18/17 10/02/17 Review of Systems - Review of Systems Systems not reviewed;Unavailable: Altered Mental Status Physical Exam Vital Signs Temp Pulse Resp BP Pulse Ox 10/02/17 19:00 93 H 24 144/80 94 L 10/02/17 18:10 96 H 18 151/78 H 90 L 10/02/17 17:45 164/99 H 10/02/17 16:30 90 20 141/70 95 10/02/17 16:15 99 F 10/02/17 16:08 96 H 20 171/100 H 96 Temperature: Afebrile Blood Pressure: Hypertensive Pulse: Regular Respiratory Rate: Normal Appearance: Positive for: Non-Toxic, Other (Chronically ill-appearing) Pain Distress: None Mental Status: Positive for: other (Oriented 1 only) - Systems Exam Head: Present: Atraumatic, Normocephalic Pupils: Present: PERRL Extroacular Muscles: Present: EOMI Conjunctiva: Present: Normal Mouth: Present: Moist Mucous Membranes Pharnyx: No: ERYTHEMA, EXUDATE, TONSILS ENLARGED Neck: Present: Normal Range of Motion Respiratory/Chest: Present: Decreased Breath Sounds, Rhonchi, Tachypneic. No: Wheezes, Rales, Retracting Cardiovascular: Present: Regular Rate and Rhythm, Normal S1, S2. No: Murmurs Abdomen: Present: Normal Bowel Sounds, Hernias, Other (Surgical scars and easily reducible incisional hernia). No: Tenderness, Distention, Peritoneal Signs, Rebound, Guarding Upper Extremity: Present: Normal Inspection, Other (Left upper extremity has a cock-up splint in place). No: Cyanosis, Edema Lower Extremity: Present: Normal Inspection. No: Edema Neurological: Present: GCS=15, CN II-XII Intact, Speech Normal, Motor Func Grossly Intact Skin: Present: Warm, Dry, Normal Color. No: Rashes Medical Decision Making ED Course and Treatment: 10/02/17 20:24 EKG shows sinus tachycardia rate approximately 105 with poor R-wave progression and nonspecific ST and T-wave changes - Lab Interpretations Lab Results: 10/02/17 16:15 10/02/17 16:15 Lab Results 10/02/17 17:45: pCO2 65 H, pO2 141.0 H, HCO3 41.2 H*, ABG pH 7.41, ABG Total CO2 43.2 H, ABG O2 Saturation 98.6 H, ABG O2 Content 18.2, ABG Base Excess 13.5 H, ABG Hemoglobin 13.4, ABG Carboxyhemoglobin 2.0 H, POC ABG HHb (Measured) 1.4 , ABG Methemoglobin 1.3, ABG O2 Capacity 18.5, Hgb O2 Saturation 95.3, FiO2 32.0 10/02/17 16:50: Influenza Typ A,B (EIA) Negative for flu a/b 10/02/17 16:15: Sodium 135, Chloride 91 L, Potassium 4.1, Carbon Dioxide 38 H, Anion Gap 10, BUN 24 H, Creatinine 0.9, Est GFR ( Amer) > 60, Est GFR ( Non-Af Amer) > 60, Random Glucose 127 H, Calcium 9.1, Phosphorus 3.2, Magnesium 2.0, Total Bilirubin 0.7, AST 30, ALT 35, Alkaline Phosphatase 79, Troponin I 0.02 D, NT-Pro-B Natriuret Pep 4910 H, Total Protein 6.5, Albumin 3.6, Globulin 2.8, Albumin/Globulin Ratio 1.3 10/02/17 16:15: pO2 49, VBG pH 7.40, VBG pCO2 68.0 H*, VBG HCO3 42.1 H, VBG Total CO2 44.2 H, VBG O2 Sat (Calc) 88.3 H, VBG Base Excess 14.0 H, VBG Potassium 4.4, Sodium 134.0, Chloride 95.0 L, Glucose 125 H, Lactate 1.1, FiO2 21.0, Venous Blood Potassium 4.4 10/02/17 16:15: Urine Color Yellow, Urine Appearance Clear, Urine pH 8.0, Ur Specific [place] 1.020, Urine Protein 100 H, Urine Glucose (UA) Negative, Urine Ketones 15 H, Urine Blood Negative, Urine Nitrate Negative, Urine Bilirubin Small H, Urine Urobilinogen 0.2, Ur Leukocyte Esterase Negative, Urine RBC 1 - 3 , Urine WBC 0 - 2, Ur Epithelial Cells 3 - 4, Urine Bacteria Large, Hyaline Casts 0 - 2, Urine Other Uren 10/02/17 16:15: PT 12.1, INR 1.06, APTT 28.0 10/02/17 16:15: WBC 8.0 D, RBC 4.52, Hgb 13.5 D, Hct 41.8, MCV 92.5, MCH 29.9 , MCHC 32.3, RDW 13.2, Plt Count 277, MPV 11.3 H, Gran % 82.0 H, Lymph % (Auto) 7.5 L, [place] % (Auto) 8.4 H, Eos % (Auto) 2.0, Baso % (Auto) 0.1, Gran # 6.52 H, Lymph # 0.6 L, [place] # 0.7 H, Eos # 0.2, Baso # 0.01 - RAD Interpretation Radiology Orders: 10/02/17 16:16 CHEST PORTABLE [RAD] Stat Chest one view shows no infiltrate effusion or cardiomegaly Industrial Mechanic: ED Physician - Medication Orders Current Medication Orders: Discontinued Medications Furosemide (Lasix) 40 mg IVP ONCE ONE Stop: 10/02/17 17:31 Last Admin: 10/02/17 17:45 Dose: 40 mg MAR Blood Pressure Document 10/02/17 17:45 SZA (Rec: 10/02/17 17:46 [facility] [id number]) Blood Pressure Blood Pressure (100/60-150/90 mm Hg) 164/99 IVP Administration Document 10/02/17 17:45 [email or web address] (Rec: 10/02/17 17:46 [facility] [id number]) Charges for Administration # of IVP Administrations 1 Disposition/Present on Arrival - Present on Arrival Any Indicators Present on Arrival: No History of DVT/PE: No History of Uncontrolled Diabetes: No Urinary Catheter: No History of Decub. Ulcer: Yes History Surgical Site Infection Following: None - Disposition Have Diagnosis and Disposition been Completed?: Yes Diagnosis: Diabetes mellitus, COPD exacerbation, Congestive heart failure Disposition: HOSPITALIZED Disposition Time: 18:08 Patient Plan: Admission, Telemetry Patient Problems: Current Active Problems Problem Status Onset COPD exacerbation Acute Congestive heart failure Acute Diabetes mellitus Chronic Condition: SERIOUS
[2017-10-02 17:00] LABS: VENOUS BLOOD GAS PO2 49 mm/Hg (30-55)
[2017-10-02 17:21] LABS: ALB/GLOB RATIO 1.3 (1.1-1.8); ALBUMIN 3.6 g/dL (3.0-4.8); ALT/SGPT 35 U/L (7-56); AST/SGOT 30 U/L (14-36); BLOOD UREA NITROGEN 24 mg/dL (7-21); CALCIUM 9.1 mg/dL (8.4-10.5); GFR AFRICAN-AMERICAN > 60; GFR NON-AFRICAN AMERICAN > 60
[2017-10-02 17:26] LABS: HEMOGLOBIN 13.5 g/dL (12.0-16.0); RBC 4.52 10^6/uL (3.5-6.1)
[2017-10-02 17:27] LABS: BASO # 0.01 K/mm3 (0.0-2.0); BASO % 0.1 % (0.0-3.0); EOS # 0.2 (0.0-0.7); GRAN # 6.52 (1.4-6.5); LYMPH # 0.6 (1.2-3.4); LYMPH % 7.5 % (22.0-35.0); MEAN CELL VOLUME 92.5 fl (80.0-105.0); MEAN CORPUSCULAR HEMOGLOBIN 29.9 pg (25.0-35.0); MEAN CORPUSCULAR HGB CONC 32.3 g/dl (31.0-37.0); MEAN PLATELET VOLUME 11.3 fl (7.0-11.0); MONO # 0.7 (0.1-0.6); MONO % 8.4 % (1.0-6.0); RED CELL DISTRIBUTION WIDTH 13.2 % (11.5-14.5)
[2017-10-02 17:28] LABS: B-TYPE NATRIURETIC PEPTIDE 4910 pg/mL (0-450); TROPONIN I 0.02 ng/mL
[2017-10-02 17:35] LABS: URINE BILIRUBIN SMALL (NEGATIVE); URINE BLOOD NEGATIVE (NEGATIVE); URINE GLUCOSE (UA) NEGATIVE (NEGATIVE); URINE LEUKOCYTE ESTERASE NEGATIVE Leu/uL (NEGATIVE); URINE NITRATE NEGATIVE (NEGATIVE); URINE PROTEIN 100 mg/dL (<30 mg/dL); URINE UROBILINOGEN 0.2 E.U./dL (<1 E.U./dL)
[2017-10-02 17:36] LABS: URINE APPEARANCE CLEAR (CLEAR); URINE COLOR YELLOW (YELLOW)
[2017-10-02 17:38] LABS: INR 1.06 (0.93-1.08); PROTHROMBIN TIME 12.1 SECONDS (9.4-12.5)
[2017-10-02 17:53] LABS: ARTERIAL BLOOD GAS HEMOGLOBIN 13.4 g/dL (11.7-17.4); ARTERIAL BLOOD GAS O2 CAPACITY 18.5 mL/dl (16-24); ARTERIAL BLOOD GAS O2 CONTENT 18.2 ML/dl (15-23); ARTERIAL BLOOD GAS O2 SAT 98.6 % (95-98); ARTERIAL BLOOD GAS PCO2 65 mm/Hg (35-45); ARTERIAL BLOOD GAS PH 7.41 (7.35-7.45); ARTERIAL BLOOD GAS TCO2 43.2 mmol.L (22-28)
[2017-10-02 17:56] LABS: ARTERIAL BLOOD GAS HCO3 41.2 mmol/L (21-28)
[2017-10-02 18:13] LABS: URINE BACTERIA LARGE (NEG); URINE HYALINE CAST 0 - 2 /hpf; URINE WBC 0 - 2 /hpf (0-6)
[2017-10-03] MEDS ORDERED: MethylPREDNISolone 40 mg Vial IV ONE (00:15)
[2017-10-03 03:17] VITALS: BMI 23.4
[2017-10-03] MEDS ORDERED: Promethazine 6.25 MG/5 ML CUP PO PRN (06:03)
[2017-10-03] MEDS ORDERED: Levalbuterol 0.63 MG/3 ML Inhal Soln UD IH PRN (06:04)
[2017-10-03] MEDS: MethylPREDNISolone 40 mg Vial IVP SCH ×2 (06:44→18:23)
--- NOTE | 2017-10-03 07:24 | CP.PCM.HP ---
History of Present Illness - History of Present Illness History of Present Illness: 275-1 Consult: AMS PGY-[address] Grady. Neurology Consult: AMS Ms. Blackburn, 82F, former smoker, with PMHx CAD s/p stent, O2 dependent COPD, emphysema, pulmonary hypertension, and a recent wrist fracture due to fall, was transferred from rehabilitation. She was sent back to the hospital for cough, congestion, weakness, fatique, poor intake by mouth, and increase confusion. Pt was recently [place] [facility] [place] on 09/30/17 for intractable R hip pain s/p fall sustained L distal radious impaction fracture, requiring splinting. During last hospital stay, pt received 1u pRBC for anemia of chronic disease and b12 defiicency. PMH CAD s/p stents x2 (LAD and diagonal, 50% stenosis pRCA, 08/2017) HTN, HLD Moderate tricuspid regurgitation, LVEF 55% (Echi 09/23/17) [id number], Emphysema, Pulmonary HTN (RVSP 65) GERD Anemia of chronic disease and B12 deficiency Osteoporosis T12 compression fracture, Claustrophobia PSH Chlecystectomy, Appendectomy Partial small bowel resection Ovarian cyst excision Inguinal hernia repair CAD s/p PCI, stents x 2 FH SH Former smoker, [id number] yrs, quit 10 years ago Denied alcohol/illicit drugs All NKDA Side effect of nausea/vomiting with codeine/hydromorphone/Myocins Med ASA, Plavis, lipitor 10 Brovana, Budesonide/Formoterl (Symbicor), Xopenex Ranolazine Dexilant Ultram PMD Dr. Valentine Outpt Neurol ABG showed pH 7.41, pCO2 65, HCO3 41 significant for mixed respiratory acidosis and metabolic alkalosis, likely from chronic COPD and hypovolumeia (Urine ketone 15). BNP 4910 may likely due to Pulmonary hypertension vs CHF. Past Patient History - Infectious Disease Hx of Infectious Diseases: None - Tetanus Immunizations Tetanus Immunization: Unknown - Past Medical History & Family History Past Medical History?: Yes - Past Social History Smoking Status: Former Smoker - CARDIAC Hx Cardiac Disorders: Yes (s/p stents) Hx Hypercholesterolemia: Yes Hx Hypertension: Yes - PULMONARY Hx Respiratory Disorders: Yes Hx Chronic Obstructive Pulmonary Disease (COPD): Yes (O2 dependent) Hx Pneumonia: Yes - NEUROLOGICAL Hx Neurological Disorder: Yes Hx Dizziness: Yes - HEENT Hx HEENT Problems: Yes Hx Cataracts: Yes - RENAL Hx Chronic Kidney Disease: No - ENDOCRINE/METABOLIC Hx Endocrine Disorders: No - HEMATOLOGICAL/ONCOLOGICAL Hx Blood Disorders: Yes Hx Anemia: Yes (with transfusion) Hx Shingles: Yes - INTEGUMENTARY Hx Dermatological Problems: No - MUSCULOSKELETAL/RHEUMATOLOGICAL Hx Musculoskeletal Disorders: Yes Hx Falls: Yes Hx Fractures: Yes (L wrist) Hx Herniated Disk: Yes Hx Osteoarthritis: Yes Hx Osteoporosis: Yes Hx Spinal Stenosis: Yes - GASTROINTESTINAL Hx Gastrointestinal Disorders: Yes (exploratry lap with 2 inches of bowel resected) Hx Diverticulitis: Yes Hx Gall Bladder Disease: Yes (CHLOECYSTECTOMY) - GENITOURINARY/GYNECOLOGICAL Hx Genitourinary Disorders: Yes Hx Incontinence: Yes Hx Urinary Tract Infection: Yes - PSYCHIATRIC Hx Psychophysiologic Disorder: No Hx Emotional Abuse: No Hx Physical Abuse: No Hx Substance Use: No - SURGICAL HISTORY Hx Surgeries: Yes Hx Appendectomy: Yes Hx Cardiac Catheterization: Yes Hx Cholecystectomy: Yes Hx Coronary Stent: Yes (X2) Other/Comment: Cyst removal in ovary. tubal ligation. 2 inches of intestine removed - ANESTHESIA Hx Anesthesia: Yes Hx Anesthesia Reactions: No Hx Malignant Hyperthermia: No Meds Allergies/Adverse Reactions: Allergies Allergy/AdvReac Type Severity Reaction Status Date / Time codeine AdvReac VOMITING Verified 10/02/17 16:13 hydromorphone HCl AdvReac VOMITING Verified 10/02/17 16:13 [From Dilaudid] MYOCINS AdvReac VOMITING Uncoded 10/02/17 16:13 Results - Vital Signs Recent Vital Signs: Last Vital Signs Temp 98.4 F 10/03/17 06:00 Pulse 97 H 10/03/17 06:00 Resp 20 10/03/17 06:00 BP 149/90 10/03/17 06:00 Pulse Ox 96 10/03/17 06:00 - Labs Result Diagrams: 10/02/17 16:15 10/02/17 16:15
[2017-10-03 08:21] LABS: ALB/GLOB RATIO 1.3 (1.1-1.8); ALBUMIN 3.6 g/dL (3.0-4.8); ALT/SGPT 36 U/L (7-56); AST/SGOT 25 U/L (14-36); BLOOD UREA NITROGEN 31 mg/dL (7-21); CALCIUM 9.1 mg/dL (8.4-10.5); GFR AFRICAN-AMERICAN > 60; GFR NON-AFRICAN AMERICAN > 60
[2017-10-03 08:22] LABS: HEMOGLOBIN 13.9 g/dL (12.0-16.0); MEAN CELL VOLUME 92.7 fl (80.0-105.0); MEAN CORPUSCULAR HGB CONC 32.3 g/dl (31.0-37.0); MEAN PLATELET VOLUME 11.2 fl (7.0-11.0); RBC 4.64 10^6/uL (3.5-6.1); RED CELL DISTRIBUTION WIDTH 13.5 % (11.5-14.5); WHITE BLOOD COUNT 10.7 10^3/ul (4.5-11.0)
--- NOTE | 2017-10-03 08:51 | RAD ---
HISTORY: Sepsis Patient COMPARISON: 09/24/2017. FINDINGS: LUNGS: There is interval improved aeration in both lungs. The lungs are hyperinflated and there is peribronchial thickening with chronic changes in both lungs. Again seen are fibrotic changes in both lungs. PLEURA: No significant pleural effusion identified, no pneumothorax apparent. CARDIOVASCULAR: Normal. OSSEOUS STRUCTURES: No significant abnormalities. VISUALIZED UPPER ABDOMEN: Normal. OTHER FINDINGS: None. IMPRESSION: Interval improved aeration in both lungs. COPD and fibrotic changes in both lungs.
--- NOTE | 2017-10-03 09:37 | CON ---
DATE: 10/03/2017 PULMONARY CONSULTATION REASON FOR CONSULTATION: Chronic obstructive pulmonary disease. REFERRING PHYSICIAN: Nigel Wheeler DO HISTORY OF PRESENT ILLNESS: History is obtained via extensive discussion with the night nurse. I have also reviewed the chart at length. The patient does not appear to be an adequate historian at this point in time. The patient is a chronically ill 82-year-old female, with past medical history significant for end-stage chronic obstructive pulmonary disease, on home oxygen, severe pulmonary hypertension, coronary artery disease, and chronic anemia, who presents to [facility] - transferred from [facility] - with increasing weakness and confusion for the past 2 days. In addition, over the past few days, the patient has experienced worsening shortness of breath, cough, and congestion. There is no history of significant sputum production. There is no history of chest pain, coughing up of blood or chest pain - made worse with deep respirations. There is no history of temperatures, chills or infectious exposure. There is no history of night sweats, weight loss or appetite change prior to the above events. No history of calf pains. No history of syncope or diaphoresis. No history of recent travel or trauma. REVIEW OF SYSTEMS: No history of nausea, vomiting or diarrhea. No acute urinary symptoms. No new musculoskeletal complaints. Rest of the review of systems is negative. ALLERGIES: CODEINE, HYDROMORPHONE AND THE MYCIN. SOCIAL HISTORY: Positive for extensive tobacco usage. No alcohol. FAMILY HISTORY: No inheritable diseases. HOME MEDICATIONS: Include Xanax, Ultram, prednisone, Ranexa, Xopenex, Dexilant, Plavix, Symbicort, Lipitor, Brovana, and Tylenol. PHYSICAL EXAMINATION: GENERAL: The patient is lethargic at the present time. She is arousable. The patient appears very weak and frail appearing. VITAL SIGNS: Temperature is 98.4, pulse is 97, respirations are 18/20, blood pressure is 149/90, and oxygen saturation on nasal cannula is 96%. HEENT: Normocephalic and atraumatic. NECK: No JVD. CARDIOVASCULAR: Systolic ejection murmur at the lower left sternal border. Questionable S3 gallop. LUNGS: Decreased breath sounds at the bases. Bilateral loose rhonchi. No wheezing. EXTREMITIES: Positive for edema. No cyanosis and no clubbing. Calves are nontender to palpation. GASTROINTESTINAL: Abdomen is soft, nontender and nondistended. Bowel sounds are positive. SKIN: No acute rash. NEUROLOGIC: Limited at the present time. PERTINENT LABORATORY DATA: Chest x-ray was done and reviewed. There is chronic extensive interstitial changes noted. It is difficult to tell whether there is underlying pulmonary edema. CBC: White count of 8.0, hemoglobin of 13.5, hematocrit of 41.8, and platelets of 277,000. Arterial blood gas was done on nasal cannula. Results are; pH of 7.41, pCO2 of 65, and pO2 of 141. Complete metabolic profile: Chloride of 91, carbon dioxide of 38, BUN of 24, and glucose of 127. B-type natriuretic peptide of 4910. Rest of the metabolic profile is within normal limits. IMPRESSION: 1. Encephalopathy, weakness. 2. End-stage chronic obstructive pulmonary disease. 3. Severe pulmonary hypertension. 4. Increased B-type natriuretic peptide, rule out congestive heart failure. 5. Coronary artery disease. PLAN: Again, I did discuss the case with the night nurse at length. I have also reviewed the chart at length. The patient was transferred to [facility] - from [facility] - with main complaints of increasing weakness and confusion over the past 2 days. In addition, the patient has also experienced more shortness of breath and cough over the past few days. She was thus admitted for additional evaluation. I did review the chest x-ray as above. The chest x-ray shows extensive chronic interstitial lung disease changes. Again, it is difficult to tell whether there is underlying congestive heart failure or not. I have also reviewed the laboratory data. A significant increase in the B-type natriuretic peptide is noted. The patient was given Lasix in the Emergency Room. Cardiology evaluation with Dr. Echavarria has been ordered. On physical exam, the patient is only in mild bronchospasm. Oxygen saturation on nasal cannula this morning is 96%. I will continue the current nebulizer treatments and intravenous steroids for now. The patient was also on Adempas - for her pulmonary hypertension. However, the Adempas has been on hold-- secondary to the patient's weakness/dizziness and inability to ambulate. Overall status/prognosis for this patient does remain poor. I will discuss the above with Dr. Wheeler in the next few moments. Thank you very much for this pulmonary consultation. Evgeny Briggs MD [facility] # [id number] JOSEPH
[2017-10-03] MEDS ORDERED: MethylPREDNISolone 40 mg Vial IV SCH (10:00)
[2017-10-03] MEDS ORDERED: cefTRIAXone 1 gm 1 GM/100 ML BAG IVPB SCH (10:00)
[2017-10-03] MEDS: Levalbuterol 0.63 MG/3 ML Inhal Soln UD IH SCH ×4 (10:20→19:40)
--- NOTE | 2017-10-03 10:48 | CON ---
DATE: 10/03/2017 CARDIOLOGY CONSULTATION HISTORY OF PRESENT ILLNESS: The patient is an 82-year-old woman who was recently discharged and sent to a subacute rehab and presents with shortness of breath with cough and congestion. PAST MEDICAL HISTORY: Notable for coronary artery disease in which she has undergone coronary stenting in the past. She suffers from severe COPD with mild pulmonary hypertension. The patient is awake, lying 15 degrees without shortness of breath. She denies edema in the lower extremities. SOCIAL HISTORY: She is a former smoker. REVIEW OF SYSTEMS: Dominated by dyspnea. PHYSICAL EXAMINATION: VITAL SIGNS: Blood pressure is 149/90; the heart rates in the 90s, normal sinus rhythm. NECK: Negative JVD. LUNGS: Bilateral rhonchi. HEART: Reveals S1, S2. EXTREMITIES: Without edema. DIAGNOSTIC DATA: Chest x-ray on admission reveals improved aeration of both lungs with fibrotic changes consistent with COPD. Her laboratories include BUN and creatinine of 31 and 0.9, glucose is 129. The hemoglobin is 13.9 with a ProBNP that is elevated. IMPRESSION: 1. Acute diastolic congestive heart failure. 2. Severe chronic obstructive pulmonary disease. 3. Hypertension. 4. Mild pulmonary retention. 5. Dyspnea. Given these findings, I agree with starting the patient on Norvasc for her hypertension as well as Lasix daily for her CHF symptoms. We will need to be careful with diuretic usage given her tendency to become prerenal. Pulmonary followup would be appropriate. Harrison Echavarria MD
--- NOTE | 2017-10-03 13:23 | HP ---
HISTORY OF PRESENT ILLNESS: She is a nice 82-year-old female who is not very verbal at this time. She seems quite out of a change in mentation. She was sent back to the hospital with cough, congestion, weakness, fatigue, poor oral intake, not really arousable to me. The nurse said she said the word 'yes' once and she was in the subacute rehab after she was in the hospital for a few weeks, now she is back. She has a history of fractured left wrist with frequent falls and she is in a cast. PAST MEDICAL HISTORY: She has hypertension; coronary artery disease with stents; COPD, oxygen dependent. She has had cataract surgeries, transfusions, falls, inguinal hernia repair, cholecystectomy, diverticulitis. She has been in urinary incontinence. Appendectomy, cholecystectomy, coronary stents x2, cyst removal from the ovary, inguinal repair, 2 inches of the intestine removed. FAMILY HISTORY: Unknown. SOCIAL HISTORY: She quit smoking many years ago. No alcohol. No drugs. ALLERGIES: SHE IS ALLERGIC TO CODEINE, HYDROMORPHONE, AND MYCINS. MEDICATIONS: She takes Lipitor, Plavix, Ranexa, aspirin, Dexilant, Ultram, Brovana, budesonide, and Xopenex. REVIEW OF SYSTEMS: She cannot really give me much of her history, cannot really answer my questions on review of systems because she seems quite out of it. PHYSICAL EXAMINATION: VITAL SIGNS: She has a 99 temperature; all the way down to 90 pulse; respiratory rate 18; and 171/100 blood pressure, I will put her on blood pressure medication; 90 pulse ox. GENERAL: She is not really alert. She is a kind of moaning. She is chronically ill. HEENT: Head is atraumatic, normocephalic. Throat is dry. NECK: Supple. HEART: Regular rate. Normal S1, S2. LUNGS: Decreased breath sounds bilaterally, poor inspiration, but no wheezes, rhonchi, or rales. ABDOMEN: Soft, nontender. Positive bowel sounds. No apparent guarding or rebound. EXTREMITIES: No edema. NEUROLOGIC: GCS 15. SKIN: Warm and dry. No apparent rashes or ulcers. LABORATORY DATA: She had multiple tests done. Her urine showed a large bacteria because she does have a UTI. Chemistry shows sodium 135; potassium of 4.1; BUN is 24; creatinine 0.9, mildly renal insufficient; GFR is greater than 60; sugar is 127; calcium is 9.1; phosphorous 3.2; magnesium is 2. Total bili is 0.7, AST is 30, ALT is 35, alk phos 79. Total troponin I is 0.02, but her BNP is 4910 which is quite high and I am going to give her Lasix and Cardiology consult. Total protein 6.5, albumin is 3.6. Her lactate is 1.1, although she looks septic. INR is 1.06. White count is normal at 8, hemoglobin 13.5, hematocrit 41.8, and platelets 277. Waiting for the chest x-ray to come back. IMPRESSION AND PLAN: I put her on Solu-Medrol, IV Lasix, aspirin, amlodipine for the blood pressure, promethazine, Plavix, Protonix, Rocephin, and Xopenex. I consulted Cardiology for the congestive heart failure; Pulmonary for shortness of breath, congestion, oxygen-dependent; Neurology for the change in mentation; and Infectious Disease because she looks septic to me with urinary tract infection. We will check her labs tomorrow. We will continue aggressive treatment and care on Shahida Blackburn. We will also get a swallow evaluation. Nigel Wheeler DO
--- NOTE | 2017-10-03 15:22 | CP.PCM.CON ---
<Milena Amin - Last Filed: 10/03/17 16:26> History of Present Illness - History of Present Illness History of Present Illness: PGY-[address] Grady. Neurology Consult: AMS Ms. Blackburn, 82F, former smoker, with PMHx CAD s/p stent, O2 dependent COPD, emphysema, pulmonary hypertension, and a recent wrist fracture due to fall, was transferred from rehabilitation. She was sent back to the hospital for cough, congestion, weakness, fatique, poor intake by mouth, and increase confusion. [place] [facility] [place] for intractable R hip pain s/p fall sustained L distal radious impaction fracture, requiring splinting. During last hospital stay, pt received 1u pRBC for anemia of chronic disease and b12 deficency. ROS (+) decreased eating, drinking, (+) lethargy Denies CLOUD, CP, SOB, N/V/D/C, abdominal pain, dysuria PMH CAD s/p stents x2 (LAD and diagonal, 50% stenosis pRCA, 08/2017) HTN, HLD Moderate tricuspid regurgitation, LVEF 55% (Echo 09/23/17) [id number], Emphysema, Pulmonary HTN (RVSP 65) GERD Anemia of chronic disease and B12 deficiency Osteoporosis T12 compression fracture, Claustrophobia PSH Chlecystectomy, Appendectomy Partial small bowel resection Ovarian cyst excision Inguinal hernia repair CAD s/p PCI, stents x 2 FH non-contributory SH Former smoker, [id number] yrs, quit 10 years ago Denied alcohol/illicit drugs All NKDA Side effect of nausea/vomiting with codeine/hydromorphone/Myocins Med ASA, Plavis, lipitor 10 Brovana, Budesonide/Formoterl (Symbicor), Xopenex Ranolazine Dexilant Ultram PMD Dr. Valentine Review of Systems - Review of Systems All systems: reviewed and no additional remarkable complaints except Review of Systems: as per hpi Past Patient History - Infectious Disease Hx of Infectious Diseases: None - Tetanus Immunizations Tetanus Immunization: Unknown - Past Medical History & Family History Past Medical History?: Yes - Past Social History Smoking Status: Former Smoker - CARDIAC Hx Cardiac Disorders: Yes Hx Congestive Heart Failure: Yes Hx Hypertension: Yes - PULMONARY Hx Chronic Obstructive Pulmonary Disease (COPD): Yes - NEUROLOGICAL Hx Neurological Disorder: Yes Hx Dizziness: Yes - HEENT Hx HEENT Problems: Yes Hx Cataracts: Yes - RENAL Hx Chronic Kidney Disease: No - ENDOCRINE/METABOLIC Hx Endocrine Disorders: No - HEMATOLOGICAL/ONCOLOGICAL Hx Blood Disorders: Yes Hx Anemia: Yes (with transfusion) Hx Shingles: Yes - INTEGUMENTARY Hx Dermatological Problems: No - MUSCULOSKELETAL/RHEUMATOLOGICAL Hx Musculoskeletal Disorders: Yes Hx Falls: Yes Hx Fractures: Yes (L wrist) Hx Herniated Disk: Yes Hx Osteoarthritis: Yes Hx Osteoporosis: Yes Hx Spinal Stenosis: Yes - GASTROINTESTINAL Hx Gastrointestinal Disorders: Yes (exploratry lap with 2 inches of bowel resected) Hx Diverticulitis: Yes Hx Gall Bladder Disease: Yes (CHLOECYSTECTOMY) - GENITOURINARY/GYNECOLOGICAL Hx Genitourinary Disorders: Yes Hx Incontinence: Yes Hx Urinary Tract Infection: Yes - PSYCHIATRIC Hx Psychophysiologic Disorder: No Hx Emotional Abuse: No Hx Physical Abuse: No Hx Substance Use: No - SURGICAL HISTORY Hx Surgeries: Yes Hx Appendectomy: Yes Hx Cardiac Catheterization: Yes Hx Cholecystectomy: Yes Hx Coronary Stent: Yes (X2) Other/Comment: Cyst removal in ovary. tubal ligation. 2 inches of intestine removed - ANESTHESIA Hx Anesthesia: Yes Hx Anesthesia Reactions: No Hx Malignant Hyperthermia: No Meds Allergies/Adverse Reactions: Allergies Allergy/AdvReac Type Severity Reaction Status Date / Time codeine AdvReac VOMITING Verified 10/02/17 16:13 hydromorphone HCl AdvReac VOMITING Verified 10/02/17 16:13 [From Dilaudid] MYOCINS AdvReac VOMITING Uncoded 10/02/17 16:13 - Medications Medications: Current Medications Alprazolam (Xanax) 0.25 mg PO Q8 PRN; Protocol PRN Reason: Anxiety Stop: 10/10/17 06:03 Amlodipine Besylate (Norvasc) 5 mg PO DAILY [facility] Last Admin: 10/03/17 09:27 Dose: Not Given Aspirin (Ecotrin) 81 mg PO DAILY [facility] Last Admin: 10/03/17 09:27 Dose: Not Given Clopidogrel Bisulfate (Plavix) 75 mg PO DAILY [facility] Last Admin: 10/03/17 09:28 Dose: Not Given Enoxaparin Sodium (Lovenox) 40 mg SC DAILY [facility] PRN Reason: Protocol Furosemide (Lasix) 40 mg IVP DAILY [facility] Last Admin: 10/03/17 09:47 Dose: 40 mg Pantoprazole Sodium (Protonix 40mg Ivpb) 40 mg in 100 mls @ 200 mls/hr IVPB 0600 [facility] Chromium/Copper/Manganese/Zinc 1 ml/ Multivitamins/Vitamin C 10 ml/ Amino Acids 1,011 mls @ 42 mls/hr IV .Q24H [facility] Stop: 10/06/17 17:59 Fat Emulsion Intravenous (Intralipid 20%) 250 mls @ 21 mls/hr IV MWF@1800 [facility] Stop: 10/06/17 17:59 Cefepime HCl (Maxipime 1gm) 1 gm in 100 mls @ 100 mls/hr IVPB Q8 [facility] PRN Reason: Protocol Stop: 10/12/17 14:01 Levalbuterol HCl (Xopenex) 0.63 mg IH [id number] [facility] Last Admin: 10/03/17 10:20 Dose: 0.63 mg Levalbuterol HCl (Xopenex) 0.63 mg IH [id number] PRN PRN Reason: Shortness of Breath Methylprednisolone (Solu-Medrol) 40 mg IVP Q12H [facility] Last Admin: 10/03/17 06:44 Dose: 40 mg Promethazine HCl (Phenergan Syrup) 6.25 mg PO Q6H PRN PRN Reason: Cough Sildenafil Citrate (Revatio) 20 mg PO BID [facility] Thiamine HCl (Vitamin B1 Inj) 100 mg IM DAILY [facility] Physical Exam - Constitutional Appears: No Acute Distress - Head Exam Head Exam: ATRAUMATIC, NORMAL INSPECTION, NORMOCEPHALIC - Eye Exam Eye Exam: EOMI, Normal appearance, PERRL. absent: Scleral icterus Pupil Exam: NORMAL ACCOMODATION - ENT Exam ENT Exam: Mucous Membranes Moist - Neck Exam Additional comments: supple - Respiratory Exam Respiratory Exam: Clear to Auscultation Bilateral, NORMAL BREATHING PATTERN. absent: Rhonchi, Wheezes - Cardiovascular Exam Cardiovascular Exam: REGULAR RHYTHM, +S1, +S2. absent: Systolic Murmur - GI/Abdominal Exam GI & Abdominal Exam: Normal Bowel Sounds, Soft. absent: Guarding, Rigid, Tenderness - Extremities Exam Extremities exam: Positive for: pedal edema (slight). Negative for: calf tenderness - Neurological Exam Neurological exam: Alert, Oriented x3 Additional comments: speech - normal Motor - move all extremities, 4+/5 Sensory - grossly intact Coordination - [id number] intact - Psychiatric Exam Psychiatric exam: Normal Affect, Normal Mood - Skin Skin Exam: Dry, Warm Results - Vital Signs Recent Vital Signs: Last Vital Signs Temp 97.6 F 10/03/17 12:00 Pulse 101 H 10/03/17 12:00 Resp 16 10/03/17 12:00 BP 148/98 H 10/03/17 12:00 Pulse Ox 96 10/03/17 06:00 - Labs Result Diagrams: 10/03/17 07:45 10/03/17 07:45 Labs: Laboratory Results - last 24 hr 10/03/17 10/03/17 07:45 07:45 WBC 10.7 D RBC 4.64 Hgb 13.9 Hct 43.0 MCV 92.7 MCH 30.0 MCHC 32.3 RDW 13.5 Plt Count 294 MPV 11.2 H Sodium 137 Potassium 3.8 Chloride 91 L Carbon Dioxide 36 H Anion Gap 14 BUN 31 H Creatinine 0.9 Est GFR ( Amer) > 60 Est GFR (Non-Af Amer) > 60 Random Glucose 129 H Calcium 9.1 Total Bilirubin 0.8 AST 25 ALT 36 Alkaline Phosphatase 85 Total Protein 6.5 Albumin 3.6 Globulin 2.8 Albumin/Globulin Ratio 1.3 Assessment & Plan - Assessment and Plan (Free Text) Plan: Ms. Blackburn, 82F, former smoker, with PMHx CAD s/p stent, O2 dependent COPD, emphysema, pulmonary hypertension, and a recent wrist fracture due to fall, was transferred from rehabilitation. She was sent back to the hospital for cough, congestion, weakness, fatique, poor intake by mouth, and increase confusion. Pt was recently [place] [facility] [place]17 for intractable R hip pain s/p fall sustained L distal radious impaction fracture, requiring splinting. Her bnp is 4910. She was found to have Acute diastolic congestive heart failure. Neurology was consulted for confusion Encephalopathy and confusion possibly due to hypercapnia from Acute diastolic congestive heart failure in the setting of End stage COPD, Severe Pulmonary HTN - thiamine 100mg IM daily for neuronal activationg - deliriurm precautions with day-night orientation and day time activities - optimizing respiratory status pre pulm and primary - blood sugar goal 140-180 - avoid sedative s/r/d/w Dr. Grady <Juan Grady - Last Filed: 10/03/17 17:20> Meds - Medications Medications: Current Medications Alprazolam (Xanax) 0.25 mg PO Q8 PRN; Protocol PRN Reason: Anxiety Stop: 10/10/17 06:03 Amlodipine Besylate (Norvasc) 5 mg PO DAILY [facility] Last Admin: 10/03/17 09:27 Dose: Not Given Aspirin (Ecotrin) 81 mg PO DAILY [facility] Last Admin: 10/03/17 09:27 Dose: Not Given Clopidogrel Bisulfate (Plavix) 75 mg PO DAILY [facility] Last Admin: 10/03/17 09:28 Dose: Not Given Enoxaparin Sodium (Lovenox) 40 mg SC DAILY [facility] PRN Reason: Protocol Last Admin: 10/03/17 17:10 Dose: Not Given Furosemide (Lasix) 40 mg IVP DAILY [facility] Last Admin: 10/03/17 09:47 Dose: 40 mg Pantoprazole Sodium (Protonix 40mg Ivpb) 40 mg in 100 mls @ 200 mls/hr IVPB 0600 [facility] Chromium/Copper/Manganese/Zinc 1 ml/ Multivitamins/Vitamin C 10 ml/ Amino Acids 1,011 mls @ 42 mls/hr IV .Q24H [facility] Stop: 10/06/17 17:59 Fat Emulsion Intravenous (Intralipid 20%) 250 mls @ 21 mls/hr IV MWF@1800 [facility] Stop: 10/06/17 17:59 Cefepime HCl (Maxipime 1gm) 1 gm in 100 mls @ 100 mls/hr IVPB Q8 [facility] PRN Reason: Protocol Stop: 10/12/17 14:01 Last Admin: 10/03/17 17:11 Dose: 100 mls/hr Levalbuterol HCl (Xopenex) 0.63 mg IH [id number] [facility] Last Admin: 10/03/17 10:20 Dose: 0.63 mg Levalbuterol HCl (Xopenex) 0.63 mg IH [id number] PRN PRN Reason: Shortness of Breath Methylprednisolone (Solu-Medrol) 40 mg IVP Q12H [facility] Last Admin: 10/03/17 06:44 Dose: 40 mg Promethazine HCl (Phenergan Syrup) 6.25 mg PO Q6H PRN PRN Reason: Cough Sildenafil Citrate (Revatio) 20 mg PO BID [facility] Thiamine HCl (Vitamin B1 Inj) 100 mg IM DAILY [facility] Last Admin: 10/03/17 17:12 Dose: 100 mg Results - Vital Signs Recent Vital Signs: Last Vital Signs Temp 97.6 F 10/03/17 12:00 Pulse 101 H 10/03/17 12:00 Resp 16 10/03/17 12:00 BP 148/98 H 10/03/17 12:00 Pulse Ox 96 10/03/17 06:00 - Labs Result Diagrams: 10/03/17 07:45 10/03/17 07:45 Labs: Laboratory Results - last 24 hr 10/03/17 10/03/17 07:45 07:45 WBC 10.7 D RBC 4.64 Hgb 13.9 Hct 43.0 MCV 92.7 MCH 30.0 MCHC 32.3 RDW 13.5 Plt Count 294 MPV 11.2 H Sodium 137 Potassium 3.8 Chloride 91 L Carbon Dioxide 36 H Anion Gap 14 BUN 31 H Creatinine 0.9 Est GFR ( Amer) > 60 Est GFR (Non-Af Amer) > 60 Random Glucose 129 H Calcium 9.1 Total Bilirubin 0.8 AST 25 ALT 36 Alkaline Phosphatase 85 Total Protein 6.5 Albumin 3.6 Globulin 2.8 Albumin/Globulin Ratio 1.3 Attending/Attestation - Attestation I have personally seen and examined this patient.: Yes I have fully participated in the care of the patient.: Yes I have reviewed all pertinent clinical information: Yes
--- NOTE | 2017-10-03 16:52 | CARD ---
APPROVED REPORT EKG Measurement Heart [id number] CO [id number] <Conclusion> Sinus tachycardia Possible Left atrial enlargement Left posterior fascicular block T wave abnormality, consider anterior ischemia Abnormal ECG
[2017-10-03] MEDS: Enoxaparin 40 mg Syringe SC SCH (17:10)
[2017-10-03] MEDS: Cefepime 1gm in NS 100ml 1 GM/100 ML BAG IVPB SCH ×2 (17:11→22:29)
[2017-10-03] MEDS: Thiamine 100 mg/ml Inj IM SCH (17:12)
[2017-10-03] MEDS ORDERED: MULTIVITAMIN IV SCH (18:00)
[2017-10-03] MEDS ORDERED: [UNRECOGNIZED DRUG - OTHER] IV SCH (18:00)
[2017-10-03] MEDS ORDERED: Fat Emulsion 20% IV 250 ML IV SCH (18:00)
[2017-10-03] MEDS ORDERED: AMINO IV SCH (18:00)
[2017-10-03] MEDS ORDERED: TRACE ELEMENTS IV SCH (18:00)
[2017-10-03] MEDS ORDERED: DEXT IV SCH (18:00)
[2017-10-03] MEDS: Sildenafil 20 MG TAB PO SCH (18:23)
[2017-10-04] MEDS: Levalbuterol 0.63 MG/3 ML Inhal Soln UD IH SCH ×6 (01:16→23:09)
[2017-10-04] MEDS: Cefepime 1gm in NS 100ml 1 GM/100 ML BAG IVPB SCH ×2 (05:21→13:07)
[2017-10-04] MEDS: MethylPREDNISolone 40 mg Vial IVP SCH ×2 (05:22→17:19)
[2017-10-04] MEDS: Pantoprazole 40mg/100ml IVPB 40 MG/100 ML BAG IVPB SCH (05:22)
--- NOTE | 2017-10-04 07:34 | PN ---
DATE: 10/04/2017 PULMONARY NOTE SUBJECTIVE: The patient appears much more awake and alert this morning. She is not short of breath at rest. PHYSICAL EXAMINATION: VITAL SIGNS: Last temperature recorded is 99.1, pulse on the monitor is 91, respiratory rate 17, last blood pressure recorded 130/80. Oxygen saturation on nasal cannula is 95%. HEENT: Normocephalic, atraumatic. No JVD. CARDIOVASCULAR: Systolic ejection murmur at the lower left sternal border. Questionable S3 gallop. LUNGS: Decreased breath sounds at the bases. Less rhonchi. No wheezing. EXTREMITIES: Positive for edema. No cyanosis, no clubbing. Calves are nontender to palpation. GI: Abdomen is soft, nontender and nondistended. Bowel sounds are positive. SKIN: No acute rash. NEUROLOGIC: Limited at the present time. IMPRESSION: 1. Encephalopathy, weakness. 2. End-stage chronic obstructive pulmonary disease. 3. Severe pulmonary hypertension. 4. Increased B-type natriuretic peptide, rule out congestive heart failure. 5. Coronary artery disease. PLAN: The patient appears much more awake and alert this morning - compared to yesterday. The daughter is at the bedside, and I did discuss the case with her at length. On physical exam, there is less bronchospasm noted. I will continue the current nebulizer treatments and current intravenous steroids for now. The patient was also started on sildenafil yesterday. The patient is also on antibiotic therapy - as per Infectious Disease. Inputs by Cardiology and Neurology are also noted. The patient remains on intravenous Lasix. Clinical status of the patient is certainly improved - compared to the initial presentation. However, unfortunately, the overall status/prognosis for this patient does remain poor. I did have a family meeting with a lot of the members yesterday. I will discuss the above with Dr. Wheeler this morning. Evgeny Briggs MD MTDD
--- NOTE | 2017-10-04 08:36 | CON ---
DATE: 10/03/2017 Patient is in room 275, bed 1. CHIEF COMPLAINT: Shortness of breath times several days. HISTORY OF PRESENT ILLNESS: This is an 82-year-old female who was recently discharged from hospital just a few days ago. Patient with end-stage COPD, O2 dependent, history of coronary artery disease, history of cardiac stents, hypertension, hyperlipidemia, degenerative arthritis, mild aortic regurgitation. Patient also with pulmonary hypertension, osteoporosis, who was admitted by the Emergency Room with shortness of breath. In the Emergency room, patient had change of mental status and patient transferred from the hospital to rehab 2 days prior to this admission back to the hospital with shortness of breath, cough and weakness, poor oral intake, confusion. Patient's daughter at the bedside. There have been no fevers and chills reported. No diarrhea or constipation. No vomiting. PAST MEDICAL HISTORY: Significant for end-stage chronic obstructive lung disease, O2 dependent, coronary artery disease, hypertension, hyperlipidemia, depression and arthritis, mild aortic regurgitation, pulmonary hypertension, osteoporosis and diverticulitis. PAST SURGICAL HISTORY: Significant for cardiac catheterization with stent placement, appendectomy, cholecystectomy and partial ovary removal and colon resection. ALLERGIC: PATIENT IS ALLERGIC TO CODEINE AND HYDROMORPHONE. MEDICATIONS: At home, reveals the patient to be on tramadol and prednisone tapering dose, Ranexa, Xopenex, Plavix, atorvastatin, aspirin, formoterol, and Tylenol. PHYSICAL EXAMINATION: GENERAL: On exam, patient is in bed, appears chronically ill and weak. VITAL SIGNS: Temperature of 99, heart rate of 104 up to 110, blood pressure is 160/80, respiratory rate of 20 up to 24. HEENT: Unremarkable. NECK: Supple. LUNGS: Decreased breath sounds. HEART: Normal S1, S2. ABDOMEN: Soft, nontender. LABORATORY DATA: Reveals a white count of 8000, hemoglobin of 13, platelets of 277, 82% granulocytosis. Coagulation is noted and blood gases are reviewed. BUN of 24, creatinine of 0.9 and BNP is 4910. Urinalysis is noted wbc's. Influenza is negative. Microbiology reveals the urine cultures are negative. Patient had a chest x-ray, peribronchial thickening is noted. No infiltrates. Dr. Briggs's consultation is reviewed. Dr. Echavarria's note is reviewed. ASSESSMENT AND PLAN: This is an 82-year-old female with end-stage chronic obstructive lung disease, O2 dependent, coronary artery disease, hypertension, hyperlipidemia, history of congestive heart failure and mild aortic regurgitation, severe pulmonary hypertension and osteoporosis, history of diverticulitis with tachycardia and dyspnea with: 1. Systemic inflammatory response syndrome with acute diastolic congestive heart failure on top of chronic congestive heart failure. I doubt underlying healthcare-associated pneumonia. We will order a stat procalcitonin. Check on the blood culture results and urine cultures are reported to be negative. Patient started on ceftriaxone, will discontinue the ceftriaxone to cefepime and the patient is also on Solu-Medrol. We will follow closely with you. Case discussed with the patient's daughter at length. We will follow with you. Jose Eastman MD
[2017-10-04] MEDS: Enoxaparin 40 mg Syringe SC SCH (09:16)
[2017-10-04] MEDS: Thiamine 100 mg/ml Inj IM SCH (09:16)
[2017-10-04] MEDS: Sildenafil 20 MG TAB PO SCH ×2 (09:22→17:19)
--- NOTE | 2017-10-04 09:24 | PN ---
DATE: SUBJECTIVE: I saw Shahida resting in bed. She is a very much alert today, better than the other day. She was out of it with family member with multiple questions. She is on lot of medications and she is definitely improving. She will need to have another swallow evaluation. We will get renal doctor involved, awaiting for Cardiology to see her. She has change in mentation. She is starting to wake up and come around. PHYSICAL EXAMINATION: VITAL SIGNS: She has a 98.2 temperature, 97 pulse, 132/74 blood pressure, 19 respiratory rate, 97% O2 sat on nasal cannula. HEENT: Head is atraumatic and normocephalic. Throat is moist. NECK: Supple. HEART: Regular rate. LUNGS: Decreased breath sounds. Fairly clear, but when she coughs, we hear the congestion. ABDOMEN: Soft, nontender. Positive bowel sounds. EXTREMITIES: Trace edema. MEDICATIONS: She is currently on vitamins, Ecotrin, Intralipid, Lasix, Lovenox, Maxipime, Norvasc, Phenergan, Plavix, Protonix, sildenafil, Solu-Medrol, vitamin B1, Xanax, Xopenex. LABORATORY DATA: She has 137 sodium, potassium 3.8, BUN less than 24 to 31 and she is on more IV fluids. I called Renal. GFR is still over 60, sugar is 129, calcium is 9.1, total bilirubin is 0.8, AST is 25, ALT is 36, alkaline phosphatase is 85. The BNP was 4110, she is on Lasix IV and total protein is 6.5. Procalcitonin is low at 0.07. White count 10.7, hemoglobin 13.9, hematocrit 40, platelets 294. INR is 1.06. The lactate was 1.1. Urine showed a large bacteria which often could have been UTI. ASSESSMENT AND PLAN: She is here for change in mentation; congestive heart failure; urinary tract infection, severe; chronic obstructive pulmonary disease; pulmonary hypertension. We will continue with aggressive treatment and care in this 10-year-old female who smoked for many, many years. Nigel Wheeler DO
--- NOTE | 2017-10-04 09:25 | CP.PCM.PN ---
<Milena Amin - Last Filed: 10/04/17 09:20> Subjective - Date & Time of Evaluation Date of Evaluation: 10/04/17 Time of Evaluation: 09:00 - Subjective Subjective: Neurology PGY-[address] Grady Pt's daughter by bedside. Pt's night-time confusion has much diminished. Pt states that phlegm is easiler to produce and breathing is better. Per daughter, pt's mentation has much improve. Blood work is delayed today because of lipid infusion on PICC. Objective - Vital Signs/Intake and Output Vital Signs (last 24 hours): Temp Pulse Resp BP Pulse Ox 98.2 F 97 H 19 114/72 97 10/04/17 06:00 10/04/17 06:00 10/04/17 06:00 10/04/17 09:16 10/04/17 06:00 Intake and Output: 10/04/17 10/04/17 06:59 18:59 Intake Total 956 Balance 956 - Medications Medications: Current Medications Alprazolam (Xanax) 0.25 mg PO Q8 PRN; Protocol PRN Reason: Anxiety Stop: 10/10/17 06:03 Amlodipine Besylate (Norvasc) 5 mg PO DAILY [facility] Last Admin: 10/03/17 09:27 Dose: Not Given Aspirin (Ecotrin) 81 mg PO DAILY [facility] Last Admin: 10/03/17 09:27 Dose: Not Given Clopidogrel Bisulfate (Plavix) 75 mg PO DAILY [facility] Last Admin: 10/03/17 09:28 Dose: Not Given Enoxaparin Sodium (Lovenox) 40 mg SC DAILY [facility] PRN Reason: Protocol Last Admin: 10/04/17 09:16 Dose: 40 mg Furosemide (Lasix) 40 mg IVP DAILY [facility] Last Admin: 10/04/17 09:16 Dose: 40 mg Pantoprazole Sodium (Protonix 40mg Ivpb) 40 mg in 100 mls @ 200 mls/hr IVPB 0600 [facility] Last Admin: 10/04/17 05:22 Dose: 200 mls/hr Chromium/Copper/Manganese/Zinc 1 ml/ Multivitamins/Vitamin C 10 ml/ Amino Acids 1,011 mls @ 42 mls/hr IV .Q24H [facility] Stop: 10/06/17 17:59 Last Admin: 01/15/18 18:58 Dose: 42 mls/hr Fat Emulsion Intravenous (Intralipid 20%) 250 mls @ 21 mls/hr IV MWF@1800 [facility] Stop: 10/06/17 17:59 Last Admin: 10/03/17 18:59 Dose: 21 mls/hr Cefepime HCl (Maxipime 1gm) 1 gm in 100 mls @ 100 mls/hr IVPB Q8 JEFFERY PRN Reason: Protocol Stop: 10/12/17 14:01 Last Admin: 10/04/17 05:21 Dose: 100 mls/hr Levalbuterol HCl (Xopenex) 0.63 mg IH [id number] [facility] Last Admin: 10/04/17 07:54 Dose: 0.63 mg Levalbuterol HCl (Xopenex) 0.63 mg IH [id number] PRN PRN Reason: Shortness of Breath Methylprednisolone (Solu-Medrol) 40 mg IVP Q12H [facility] Last Admin: 10/04/17 05:22 Dose: 40 mg Promethazine HCl (Phenergan Syrup) 6.25 mg PO Q6H PRN PRN Reason: Cough Sildenafil Citrate (Revatio) 20 mg PO BID [facility] Last Admin: 10/03/17 18:23 Dose: Not Given Thiamine HCl (Vitamin B1 Inj) 100 mg IM DAILY [facility] Last Admin: 10/04/17 09:16 Dose: 100 mg - Labs Labs: 10/03/17 07:45 10/03/17 07:45 PT 12.1 SECONDS (9.4-12.5) 10/02/17 16:15 INR 1.06 (0.93-1.08) 10/02/17 16:15 APTT 28.0 Seconds (25.1-36.5) 10/02/17 16:15 - Constitutional Appears: No Acute Distress - Head Exam Head Exam: ATRAUMATIC, NORMAL INSPECTION, NORMOCEPHALIC - Eye Exam Eye Exam: EOMI, Normal appearance, PERRL. absent: Scleral icterus Pupil Exam: NORMAL ACCOMODATION - ENT Exam ENT Exam: Mucous Membranes Dry - Neck Exam Additional comments: supple - Respiratory Exam Respiratory Exam: Decreased Breath Sounds (at lung bases), Clear to Ausculation Bilateral, Wheezes (mild) - Cardiovascular Exam Cardiovascular Exam: REGULAR RHYTHM, +S1, +S2. absent: Murmur - GI/Abdominal Exam GI & Abdominal Exam: Soft, Normal Bowel Sounds. absent: Guarding, Rigid, Tenderness - Extremities Exam Extremities Exam: absent: Calf Tenderness, Pedal Edema Additional comments: On Purewick, no leakage, urine in suction cup looked rose marie - Neurological Exam Neurological Exam: Alert, Awake Additional comments: AAOx2 speech - On nebulizer Motor - move all extremities, 4+/5 Sensory - grossly intact Coordination - [id number] intact - Psychiatric Exam Psychiatric exam: Normal Affect, Normal Mood - Skin Skin Exam: Dry, Warm Assessment and Plan - Assessment and Plan (Free Text) Plan: Ms. Blackburn, 82F, former smoker, with PMHx CAD s/p stent, O2 dependent COPD, emphysema, pulmonary hypertension, and a recent wrist fracture due to fall, was transferred from rehabilitation. She was sent back to the hospital for cough, congestion, weakness, fatique, poor intake by mouth, and increase confusion. [place] [facility] [place]17 for intractable R hip pain s/p fall sustained L distal radious impaction fracture, requiring splinting. Her bnp is [id number]. She was found to have Acute diastolic congestive heart failure. Neurology was consulted for confusion. Patient developed oliguria today 400cc/24 hrs. Encephalopathy and confusion possibly due to hypercapnia from Acute diastolic congestive heart failure in the setting of End stage COPD, Severe Pulmonary HTN - improving - thiamine 100mg IM daily for neuronal activationg - deliriurm precautions with day-night orientation and day time activities - optimizing respiratory status per pulm and primary - blood sugar goal 140-180 - avoid sedative - Continue medical management per primary team s/r/d/w Dr. Grady <Juan Grady - Last Filed: 10/04/17 09:51> Objective - Vital Signs/Intake and Output Vital Signs (last 24 hours): Temp Pulse Resp BP Pulse Ox 98.2 F 97 H 19 114/72 97 10/04/17 06:00 10/04/17 06:00 10/04/17 06:00 10/04/17 09:16 10/04/17 06:00 Intake and Output: 10/04/17 10/04/17 06:59 18:59 Intake Total 956 Balance 956 - Medications Medications: Current Medications Alprazolam (Xanax) 0.25 mg PO Q8 PRN; Protocol PRN Reason: Anxiety Stop: 10/10/17 06:03 Amlodipine Besylate (Norvasc) 5 mg PO DAILY [facility] Last Admin: 10/04/17 09:22 Dose: Not Given Aspirin (Ecotrin) 81 mg PO DAILY [facility] Last Admin: 10/04/17 09:22 Dose: Not Given Clopidogrel Bisulfate (Plavix) 75 mg PO DAILY [facility] Last Admin: 10/04/17 09:22 Dose: Not Given Enoxaparin Sodium (Lovenox) 40 mg SC DAILY [facility] PRN Reason: Protocol Last Admin: 10/04/17 09:16 Dose: 40 mg Furosemide (Lasix) 40 mg IVP DAILY [facility] Last Admin: 10/04/17 09:16 Dose: 40 mg Pantoprazole Sodium (Protonix 40mg Ivpb) 40 mg in 100 mls @ 200 mls/hr IVPB 0600 [facility] Last Admin: 10/04/17 05:22 Dose: 200 mls/hr Chromium/Copper/Manganese/Zinc 1 ml/ Multivitamins/Vitamin C 10 ml/ Amino Acids 1,011 mls @ 42 mls/hr IV .Q24H [facility] Stop: 10/06/17 17:59 Last Admin: 10/03/17 18:58 Dose: 42 mls/hr Fat Emulsion Intravenous (Intralipid 20%) 250 mls @ 21 mls/hr IV MWF@1800 [facility] Stop: 10/06/17 17:59 Last Admin: 10/03/17 18:59 Dose: 21 mls/hr Cefepime HCl (Maxipime 1gm) 1 gm in 100 mls @ 100 mls/hr IVPB Q8 [facility] PRN Reason: Protocol Stop: 10/12/17 14:01 Last Admin: 10/04/17 05:21 Dose: 100 mls/hr Levalbuterol HCl (Xopenex) 0.63 mg IH [id number] [facility] Last Admin: 10/04/17 07:54 Dose: 0.63 mg Levalbuterol HCl (Xopenex) 0.63 mg IH [id number] PRN PRN Reason: Shortness of Breath Methylprednisolone (Solu-Medrol) 40 mg IVP Q12H [facility] Last Admin: 10/04/17 05:22 Dose: 40 mg Promethazine HCl (Phenergan Syrup) 6.25 mg PO Q6H PRN PRN Reason: Cough Sildenafil Citrate (Revatio) 20 mg PO BID [facility] Last Admin: 10/04/17 09:22 Dose: Not Given Thiamine HCl (Vitamin B1 Inj) 100 mg IM DAILY [facility] Last Admin: 10/04/17 09:16 Dose: 100 mg - Labs Labs: 10/03/17 07:45 10/03/17 07:45 PT 12.1 SECONDS (9.4-12.5) 10/02/17 16:15 INR 1.06 (0.93-1.08) 10/02/17 16:15 APTT 28.0 Seconds (25.1-36.5) 10/02/17 16:15 Attending/Attestation - Attestation I have personally seen and examined this patient.: Yes I have fully participated in the care of the patient.: Yes I have reviewed all pertinent clinical information, including history, physical exam and plan: Yes
[2017-10-04 11:28] LABS: HEMOGLOBIN 13.2 g/dL (12.0-16.0); MEAN CELL VOLUME 92.7 fl (80.0-105.0); MEAN CORPUSCULAR HEMOGLOBIN 30.2 pg (25.0-35.0); MEAN CORPUSCULAR HGB CONC 32.6 g/dl (31.0-37.0); MEAN PLATELET VOLUME 10.9 fl (7.0-11.0); RBC 4.37 10^6/uL (3.5-6.1); RED CELL DISTRIBUTION WIDTH 13.7 % (11.5-14.5); WHITE BLOOD COUNT 13.3 10^3/ul (4.5-11.0)
[2017-10-04 11:54] LABS: ALB/GLOB RATIO 1.3 (1.1-1.8); ALBUMIN 3.5 g/dL (3.0-4.8); ALT/SGPT 34 U/L (7-56); AST/SGOT 30 U/L (14-36); BLOOD UREA NITROGEN 54 mg/dL (7-21); CALCIUM 8.7 mg/dL (8.4-10.5); GFR AFRICAN-AMERICAN > 60; GFR NON-AFRICAN AMERICAN 53
[2017-10-04] MEDS ORDERED: Potassium Chloride 20 mEq/15 ml LIQ UD PO STA (14:21)
--- NOTE | 2017-10-04 14:44 | CP.PCM.PN ---
Subjective - Date & Time of Evaluation Date of Evaluation: 10/04/17 Time of Evaluation: 14:40 - Subjective Subjective: swallow screen Objective - Vital Signs/Intake and Output Vital Signs (last 24 hours): Temp Pulse Resp BP Pulse Ox 98.5 F 87 16 112/67 97 10/04/17 12:00 10/04/17 12:00 10/04/17 12:00 10/04/17 12:00 10/04/17 06:00 Intake and Output: 10/04/17 10/04/17 06:59 18:59 Intake Total 956 Balance 956 - Medications Medications: Current Medications Alprazolam (Xanax) 0.25 mg PO Q8 PRN; Protocol PRN Reason: Anxiety Stop: 10/10/17 06:03 Amlodipine Besylate (Norvasc) 5 mg PO DAILY [facility] Last Admin: 10/04/17 09:22 Dose: Not Given Aspirin (Ecotrin) 81 mg PO DAILY [facility] Last Admin: 10/04/17 09:22 Dose: Not Given Clopidogrel Bisulfate (Plavix) 75 mg PO DAILY [facility] Last Admin: 10/04/17 09:22 Dose: Not Given Enoxaparin Sodium (Lovenox) 40 mg SC DAILY [facility] PRN Reason: Protocol Last Admin: 10/04/17 09:16 Dose: 40 mg Furosemide (Lasix) 40 mg PO DAILY [facility] Pantoprazole Sodium (Protonix 40mg Ivpb) 40 mg in 100 mls @ 200 mls/hr IVPB 0600 [facility] Last Admin: 10/04/17 05:22 Dose: 200 mls/hr Chromium/Copper/Manganese/Zinc 1 ml/ Multivitamins/Vitamin C 10 ml/ Amino Acids 1,011 mls @ 42 mls/hr IV .Q24H [facility] Stop: 10/06/17 17:59 Last Admin: 10/03/17 18:58 Dose: 42 mls/hr Fat Emulsion Intravenous (Intralipid 20%) 250 mls @ 21 mls/hr IV MWF@1800 [facility] Stop: 10/06/17 17:59 Last Admin: 10/03/17 18:59 Dose: 21 mls/hr Ketorolac Tromethamine (Toradol) 30 mg IVP Q6 PRN PRN Reason: Pain, moderate (4-7) Last Admin: 10/04/17 13:07 Dose: 30 mg Levalbuterol HCl (Xopenex) 0.63 mg IH [id number] [facility] Last Admin: 10/04/17 11:17 Dose: 0.63 mg Levalbuterol HCl (Xopenex) 0.63 mg IH [id number] PRN PRN Reason: Shortness of Breath Methylprednisolone (Solu-Medrol) 40 mg IVP Q12H [facility] Last Admin: 10/04/17 05:22 Dose: 40 mg Promethazine HCl (Phenergan Syrup) 6.25 mg PO Q6H PRN PRN Reason: Cough Sildenafil Citrate (Revatio) 20 mg PO BID [facility] Last Admin: 10/04/17 09:22 Dose: Not Given Thiamine HCl (Vitamin B1 Inj) 100 mg IM DAILY [facility] Last Admin: 10/04/17 09:16 Dose: 100 mg - Labs Labs: 10/04/17 11:00 10/04/17 11:00 PT 12.1 SECONDS (9.4-12.5) 10/02/17 16:15 INR 1.06 (0.93-1.08) 10/02/17 16:15 APTT 28.0 Seconds (25.1-36.5) 10/02/17 16:15 - Constitutional Appears: Non-toxic, No Acute Distress, Chronically Ill - Head Exam Head Exam: ATRAUMATIC - Eye Exam Eye Exam: EOMI, Normal appearance, PERRL Pupil Exam: NORMAL ACCOMODATION, PERRL - ENT Exam ENT Exam: Mucous Membranes Dry - Neck Exam Neck Exam: Full ROM, Normal Inspection - Respiratory Exam Respiratory Exam: Rhonchi, NORMAL BREATHING PATTERN - Cardiovascular Exam Cardiovascular Exam: +S1, +S2 - GI/Abdominal Exam GI & Abdominal Exam: Soft, Normal Bowel Sounds - Extremities Exam Extremities Exam: Full ROM, Normal Capillary Refill - Neurological Exam Neurological Exam: Alert, Awake, CN II-XII Intact, Oriented x3 Neuro motor strength exam: Left Upper Extremity: 5, Right Upper Extremity: 5, Left Lower Extremity: 5, Right Lower Extremity: 5 (generalized weakness noted) - Psychiatric Exam Psychiatric exam: Normal Affect, Normal Mood - Skin Skin Exam: Dry, Intact, Normal Color, Warm Assessment and Plan - Assessment and Plan (Free Text) Assessment: swallow screen passed Plan: repeat swallow screen passed no cough, choking patient able to swallow without difficulty regular diet ordered swallow evaluation pending.
--- NOTE | 2017-10-04 19:02 | CP.PCM.CON ---
History of Present Illness - History of Present Illness History of Present Illness: Initial Nephrology Consultation: Assessment: Stable chronic respi acidosis with renal compensation CAD s/p stents, COPD.emphysema on home O2, pulmonary hypertension, HTN, Hyperlipidemias low back pain rise in BUN likely due to diuretics, steroids mild hypokalemia Plan renal function and electrolytes stable ketonuria likely due to decreased oral intake/starvation Hypertension control with meds as ordered. Monitor Input/Output, daily weights encourage oral intake management of COPD as per primary team. cardiology and pulmonary following supplement electrolytes as needed Glycemic control No further renal work up or intervention indicated will sign off. Thanks for allowing me to participate in care of your patient. Please call if any Qs. d/w team and daughter Dr Parviz Suarez Office: [phone] Chief Complaint; decreased oral intake HPI: Pt is a 82 y/o female with history of CAD s/p stents, COPD/emphysema on home O2, pulmonary hypertension, HTN, Hyperlipidemias recently admitted s/p fall for intractable low back pain and UTI which was managed with antibiotics. has chronic SOB due to COPD. she was d/c to rehab and renal consult for decreased urine output and electrolyte abnormality. serum cr has been stable. she has poor appetite and decreased oral intake. ROS: Cardiovascular: No chest pain. Pulmonary: c/o shortness of breath but chronic Gastrointestinal: denies abdominal pain No nausea. No vomiting. Genitourinary: no urinary complaints All other negative except back pain and as mentioned in HPI Physical Examination: family bedside General Appearance: Comfortable, in no acute respiratory distress, co-operative . elderly female Vitals reviewed and noted as below Head; Atraumatic, normocephalic ENT: no ulcers no thrush. Tongue is midline and dry. Oropharynx: no rash or ulcers. EYES: Pupils are equal, round and reactive to light accommodation. Eye muscles and extraocular movement intact. Sclera is anicteric. Neck; supple no lymphadenopathy, no thyromegaly or bruit Lungs: Normal respiratory rate/effort. Breath sounds bilateral equal and has bibasal crackles Heart: Normal rate. s1s2 normal. No rub or gallop. Extremities: no edema. No varicose veins Neurological: Patient is alert, awake and oriented to person, place and time. No focal deficit. Strength bilateral appropriate and equal Skin: Warm and dry. Normal turgor. No rash. Palpitation: Normal elasticity for age Abdomen: Abdomen is soft. Bowel sounds +. There is no abdominal tenderness, no guarding/rigidity no organomegaly Psych: normal insight and normal affect/mood MSK: no joint tenderness or swelling. Digits and nails normal, no deformity : kidney or bladder not palpable. Labs/imaging reviewed. Past medical history, past surgical history, family history, social history, allergy reviewed and noted as below Family hx: no hx of CKD. Rest non-contributory CT abdomen: normal kidneys, small cyst echo: IVC collapses >50% Past Patient History - Infectious Disease Hx of Infectious Diseases: None - Tetanus Immunizations Tetanus Immunization: Unknown - Past Medical History & Family History Past Medical History?: Yes - Past Social History Smoking Status: Former Smoker - CARDIAC Hx Cardiac Disorders: Yes Hx Congestive Heart Failure: Yes Hx Hypertension: Yes - PULMONARY Hx Chronic Obstructive Pulmonary Disease (COPD): Yes - NEUROLOGICAL Hx Neurological Disorder: Yes Hx Dizziness: Yes - HEENT Hx HEENT Problems: Yes Hx Cataracts: Yes - RENAL Hx Chronic Kidney Disease: No - ENDOCRINE/METABOLIC Hx Endocrine Disorders: No - HEMATOLOGICAL/ONCOLOGICAL Hx Cancer: No - INTEGUMENTARY Hx Dermatological Problems: No - MUSCULOSKELETAL/RHEUMATOLOGICAL Hx Musculoskeletal Disorders: Yes Hx Falls: Yes Hx Fractures: Yes (L wrist) Hx Herniated Disk: Yes Hx Osteoarthritis: Yes Hx Osteoporosis: Yes Hx Spinal Stenosis: Yes - GASTROINTESTINAL Hx Gastrointestinal Disorders: Yes (exploratry lap with 2 inches of bowel resected) Hx Diverticulitis: Yes Hx Gall Bladder Disease: Yes (CHLOECYSTECTOMY) - GENITOURINARY/GYNECOLOGICAL Hx Genitourinary Disorders: Yes Hx Incontinence: Yes Hx Urinary Tract Infection: Yes - PSYCHIATRIC Hx Psychophysiologic Disorder: No Hx Emotional Abuse: No Hx Physical Abuse: No Hx Substance Use: No - SURGICAL HISTORY Hx Mastectomy: No - ANESTHESIA Hx Anesthesia: Yes Hx Anesthesia Reactions: No Hx Malignant Hyperthermia: No Meds Allergies/Adverse Reactions: Allergies Allergy/AdvReac Type Severity Reaction Status Date / Time codeine AdvReac VOMITING Verified 10/02/17 16:13 hydromorphone HCl AdvReac VOMITING Verified 10/02/17 16:13 [From Dilaudid] MYOCINS AdvReac VOMITING Uncoded 10/02/17 16:13 - Medications Medications: Current Medications Alprazolam (Xanax) 0.25 mg PO Q8 PRN; Protocol PRN Reason: Anxiety Stop: 10/10/17 06:03 Amlodipine Besylate (Norvasc) 5 mg PO DAILY [facility] BY [facility] Last Admin: 10/04/17 15:06 Dose: 5 mg Aspirin (Ecotrin) 81 mg PO DAILY [facility] Last Admin: 10/04/17 15:08 Dose: 81 mg Clopidogrel Bisulfate (Plavix) 75 mg PO DAILY [facility] Last Admin: 10/04/17 15:06 Dose: 75 mg Enoxaparin Sodium (Lovenox) 40 mg SC DAILY [facility] BY [facility] PRN Reason: Protocol Last Admin: 10/04/17 09:16 Dose: 40 mg Furosemide (Lasix) 40 mg PO DAILY [facility]PLACED BY [facility] Pantoprazole Sodium (Protonix 40mg Ivpb) 40 mg in 100 mls @ 200 mls/hr IVPB 0600 [facility]PLACED BY [facility] Last Admin: 10/04/17 05:22 Dose: 200 mls/hr Fat Emulsion Intravenous (Intralipid 20%) 250 mls @ 21 mls/hr IV MWF@1800 [facility]PLACED BY [facility] Stop: 10/06/17 17:59 Last Admin: 10/03/17 18:59 Dose: 21 mls/hr Ketorolac Tromethamine (Toradol) 30 mg IVP Q6 PRN PRN Reason: Pain, moderate (4-7) Last Admin: 10/04/17 13:07 Dose: 30 mg Levalbuterol HCl (Xopenex) 0.63 mg IH [id number] [facility]PLAC[facility] Last Admin: 10/04/17 15:48 Dose: 0.63 mg Levalbuterol HCl (Xopenex) 0.63 mg IH [id number] PRN PRN Reason: Shortness of Breath Methylprednisolone (Solu-Medrol) 40 mg IVP Q12H REPLACED BY [facility] Last Admin: 10/04/17 17:19 Dose: 40 mg Promethazine HCl (Phenergan Syrup) 6.25 mg PO Q6H PRN PRN Reason: Cough Sildenafil Citrate (Revatio) 20 mg PO BID REPLACED BY [facility] Last Admin: 10/04/17 17:19 Dose: 20 mg Thiamine HCl (Vitamin B1 Inj) 100 mg IM DAILY [facility] Last Admin: 10/04/17 09:16 Dose: 100 mg Results - Vital Signs Recent Vital Signs: Last Vital Signs Temp 97.6 F 10/04/17 17:35 Pulse 98 H 10/04/17 18:00 Resp 16 10/04/17 17:35 BP 106/58 L 10/04/17 17:35 Pulse Ox 97 10/04/17 06:00 - Labs Result Diagrams: 10/04/17 11:00 10/04/17 11:00 Labs: Laboratory Results - last 24 hr 10/04/17 10/04/17 11:00 11:00 WBC 13.3 H D RBC 4.37 Hgb 13.2 Hct 40.5 MCV 92.7 MCH 30.2 MCHC 32.6 RDW 13.7 Plt Count 250 MPV 10.9 Sodium 135 Potassium 3.5 L Chloride 89 L Carbon Dioxide 35 H Anion Gap 14 BUN 54 H Creatinine 1.0 Est GFR ( Amer) > 60 Est GFR (Non-Af Amer) 53 Random Glucose 196 H Calcium 8.7 Total Bilirubin 0.7 AST 30 ALT 34 Alkaline Phosphatase 79 Total Protein 6.3 Albumin 3.5 Globulin 2.8 Albumin/Globulin Ratio 1.3
--- NOTE | 2017-10-04 21:33 | PN ---
DATE: 10/04/2017 SUBJECTIVE: The patient seen in bed in no acute distress, nontoxic. The patient was seen earlier today. The patient's daughter was present. PHYSICAL EXAMINATION: VITAL SIGNS: Temperature is 98, blood pressure is 106/50, respiratory rate of 17, heart rate of 91. HEENT: Unremarkable. NECK: Supple. LUNGS: Have decreased breath sounds. HEART: Normal S1, S2. ABDOMEN: Soft, nontender. LABORATORY DATA: Reveals a white count of 13,300, hemoglobin of 13, BUN of 54, creatinine of 1.0, and procalcitonin is 0.07. Urinalysis is noted. Serology influenza is negative. Microbiology; blood cultures and urine cultures negative are negative. The patient's chest x-ray is reported to be negative. Dr. Briggs's note is reviewed. Dr. Grady's note is reviewed. ASSESSMENT AND PLAN: This is an 82-year-old female with end stage chronic obstructive lung disease, O2 dependent, coronary artery disease, hypertension, hyperlipidemia, history of congestive heart failure, mild aortic regurgitation, severe pulmonary hypertension, osteoporosis: 1. Systemic inflammatory response syndrome with acute diastolic congestive heart failure on top of chronic congestive heart failure, doubt underlying healthcare-associated pneumonia with chest x-ray findings are normal. Procalcitonin . Continue the cefepime. No new antibiotics at this point. Jose Eastman MD
[2017-10-05] MEDS: Levalbuterol 0.63 MG/3 ML Inhal Soln UD IH SCH ×4 (01:15→20:00)
[2017-10-05] MEDS: Pantoprazole 40mg/100ml IVPB 40 MG/100 ML BAG IVPB SCH (06:25)
[2017-10-05] MEDS: MethylPREDNISolone 40 mg Vial IVP SCH ×3 (06:26→21:33)
[2017-10-05 07:20] LABS: MEAN CELL VOLUME 93.3 fl (80.0-105.0); MEAN CORPUSCULAR HEMOGLOBIN 29.6 pg (25.0-35.0); MEAN CORPUSCULAR HGB CONC 31.7 g/dl (31.0-37.0); MEAN PLATELET VOLUME 11.2 fl (7.0-11.0); RBC 4.06 10^6/uL (3.5-6.1); RED CELL DISTRIBUTION WIDTH 13.9 % (11.5-14.5); WHITE BLOOD COUNT 10.6 10^3/ul (4.5-11.0)
[2017-10-05 07:49] LABS: ALB/GLOB RATIO 1.3 (1.1-1.8); ALBUMIN 3.4 g/dL (3.0-4.8); ALT/SGPT 29 U/L (7-56); AST/SGOT 27 U/L (14-36); BLOOD UREA NITROGEN 63 mg/dL (7-21); GFR AFRICAN-AMERICAN > 60; GFR NON-AFRICAN AMERICAN 53
--- NOTE | 2017-10-05 08:13 | PN ---
DATE: 10/04/2017 CARDIOLOGY FOLLOWUP SUBJECTIVE: The patient's breathing and mentation is improved. PHYSICAL EXAMINATION: VITAL SIGNS: Blood pressure 112/67, heart rate in the 80s. NECK: Negative JVD. LUNGS: Bilateral rhonchi. HEART: S1, S2. EXTREMITIES: Without edema. LABORATORY DATA: BUN is up to 54, creatinine is 1.0, potassium is 3.5. Hemoglobin is 13. IMPRESSION: 1. Lethargy, which is improved. 2. The patient's dyspnea is improved. 3. Severe chronic obstructive pulmonary disease. 4. Diastolic congestive heart failure, which is improved. 5. Prerenal azotemia. Given these findings, we will change Lasix from IV to p.o. We will need to follow the BUN and creatinine in the morning. Harrison Echavarria MD
--- NOTE | 2017-10-05 08:20 | PN ---
DATE: 10/05/2017 PULMONARY PROGRESS NOTE SUBJECTIVE: The patient appears comfortable this morning. She is awake and alert. She is not short of breath. She does appear very weak and frail. PHYSICAL EXAMINATION: VITAL SIGNS: Temperature is 98.5, pulse is 76, respirations are 18, and blood pressure is 111/64. Oxygen saturation on nasal cannula is 98%. HEENT: Normocephalic and atraumatic. NECK: No JVD. CARDIOVASCULAR: Systolic ejection murmur at the lower left sternal border. Questionable S3 gallop. LUNGS: Decreased breath sounds at the bases. Very minimal/less rhonchi. No wheezing. EXTREMITIES: Positive edema. No cyanosis and no clubbing. Calves are nontender to palpation. GASTROINTESTINAL: Abdomen is soft, nontender and nondistended. Bowel sounds are positive. SKIN: No acute rash. NEUROLOGIC: Exam is limited at the present time. IMPRESSION 1. Encephalopathy, weakness. 2. End-stage chronic obstructive pulmonary disease. 3. Severe pulmonary hypertension. 4. Increased B-type natriuretic peptide, rule out congestive heart failure. 5. Coronary artery disease. PLAN: The patient appears comfortable this morning. She is not short of breath at rest. She is awake and alert. She does appear very weak and frail. On physical exam, there is certainly less bronchospasm noted. In addition, there is less alveolar-arterial gradient noted. The oxygen saturation on nasal cannula is now 98%. I will continue the current nebulizer treatments and decrease the intravenous steroids. The patient also remains on Revatio for her pulmonary hypertension. Inputs by Renal and Cardiology are noted. Clinical status of the patient is certainly improved - compared to the initial presentation. However, again, unfortunately, the overall status/prognosis for this deisy lady remains poor. All are aware. I will discuss the above with Dr. Wheeler. Evgeny Briggs MD MTDD
--- NOTE | 2017-10-05 09:01 | PN ---
DATE: SUBJECTIVE: Family was upset yesterday because they could not get a feeding/swallow evaluation recalled and we got it to come last night. She would pass, that she was able to eat with stopping the PPN and fat emulsion. I saw her this morning resting in bed. She did not get out of bed yesterday because family felt there was too much yesterday, so it did not let her get out of bed. She is eating a little bit better. She is comfortable. She slept fairly well. MEDICATIONS: She is on Ecotrin, Lasix, Lovenox, Norvasc, Phenergan, Plavix, potassium replacement, sildenafil, Solu-Medrol, she is on 40 IV q. 12 hours, Toradol, vitamin B1, Xanax, Xopenex. PHYSICAL EXAMINATION: VITAL SIGNS: 98.3 temperature, 87 pulse, 109/58 blood pressure, 21 respiratory rate, 95% O2 sat on nasal canula. GENERAL: She is alert, smiling, comfortable. No acute distress at this time. No shortness of breath or chest pain. She has had a cough from time to time. HEENT: Throat is moist. NECK: Supple. HEART: Regular rate. LUNGS: Decreased breath sounds, fairly clear, may be upper airway congestion. ABDOMEN: Soft, obese. EXTREMITIES: Trace +1 edema if at all any. LABORATORY DATA: She has a 13,000 white count yesterday probably from steroids, 13.2 hemoglobin and 250 platelets. Sodium 135; potassium 3.5, was replaced; BUN 54; creatinine 1; GFR is 53. ASSESSMENT AND PLAN: I called in Renal to evaluate her kidney function the other day. She has lot of issues going on, end-stage chronic obstructive pulmonary disease, coronary artery disease, hypertension, high lipids, congestive heart failure, pulmonary hypertension, systemic inflammatory response syndrome, and urinary tract infection. She is being seen by Infectious Disease, Renal, Neurology, Pulmonary, Cardiology. I am hoping to get her out of bed to chair today, we need to get her body moving. Hopefully, family will let her get out of bed; it is important for her not to get much weaker. Get physical therapy in, continue with treatment and care. Nigel Wheeler DO
[2017-10-05] MEDS: Enoxaparin 40 mg Syringe SC SCH (09:37)
[2017-10-05] MEDS: Thiamine 100 mg/ml Inj IM SCH (09:38)
[2017-10-05] MEDS: Sildenafil 20 MG TAB PO SCH ×2 (09:38→17:28)
--- NOTE | 2017-10-05 15:56 | CP.PCM.PN ---
<Milena Amin - Last Filed: 10/05/17 15:53> Subjective - Date & Time of Evaluation Date of Evaluation: 10/05/17 Time of Evaluation: 09:00 - Subjective Subjective: Neurology PGY-[address] Grady Pt is more alert and able to hold meaningful conversation. Denied acute distress Objective - Vital Signs/Intake and Output Vital Signs (last 24 hours): Temp Pulse Resp BP Pulse Ox 97.9 F 87 20 101/53 L 98 10/05/17 11:54 10/05/17 11:54 10/05/17 11:54 10/05/17 11:54 10/05/17 06:00 Intake and Output: 10/05/17 10/05/17 06:59 18:59 Intake Total 120 720 Output Total 0 Balance 120 720 - Medications Medications: Current Medications Alprazolam (Xanax) 0.25 mg PO Q8 PRN; Protocol PRN Reason: Anxiety Stop: 10/10/17 06:03 Amlodipine Besylate (Norvasc) 5 mg PO DAILY [facility] Last Admin: 10/05/17 09:37 Dose: 5 mg Aspirin (Ecotrin) 81 mg PO DAILY [facility] Last Admin: 10/05/17 09:37 Dose: 81 mg Clopidogrel Bisulfate (Plavix) 75 mg PO DAILY [facility] Last Admin: 10/05/17 09:37 Dose: 75 mg Enoxaparin Sodium (Lovenox) 40 mg SC DAILY [facility] PRN Reason: Protocol Last Admin: 10/05/17 09:37 Dose: 40 mg Pantoprazole Sodium (Protonix 40mg Ivpb) 40 mg in 100 mls @ 200 mls/hr IVPB 0600 [facility] Last Admin: 10/05/17 06:25 Dose: 200 mls/hr Ketorolac Tromethamine (Toradol) 30 mg IVP Q6 PRN PRN Reason: Pain, moderate (4-7) Last Admin: 10/05/17 08:34 Dose: 30 mg Levalbuterol HCl (Xopenex) 0.63 mg IH [id number] [facility] Last Admin: 10/05/17 13:50 Dose: 0.63 mg Levalbuterol HCl (Xopenex) 0.63 mg IH Q2 PRN PRN Reason: Shortness of Breath Methylprednisolone (Solu-Medrol) 30 mg IVP Q12 [facility] Last Admin: 10/05/17 09:37 Dose: 30 mg Promethazine HCl (Phenergan Syrup) 6.25 mg PO Q6H PRN PRN Reason: Cough Sildenafil Citrate (Revatio) 20 mg PO BID [facility] Last Admin: 10/05/17 09:38 Dose: 20 mg Thiamine HCl (Vitamin B1 Inj) 100 mg IM DAILY [facility] Last Admin: 10/05/17 09:38 Dose: 100 mg - Labs Labs: 10/05/17 06:30 10/05/17 06:30 PT 12.1 SECONDS (9.4-12.5) 10/02/17 16:15 INR 1.06 (0.93-1.08) 10/02/17 16:15 APTT 28.0 Seconds (25.1-36.5) 10/02/17 16:15 - Constitutional Appears: No Acute Distress - Head Exam Head Exam: ATRAUMATIC, NORMAL INSPECTION, NORMOCEPHALIC - Eye Exam Eye Exam: EOMI, Normal appearance, PERRL - ENT Exam ENT Exam: Mucous Membranes Moist - Respiratory Exam Respiratory Exam: Clear to Ausculation Bilateral, Rhonchi (mild L lung base), NORMAL BREATHING PATTERN. absent: Wheezes - Cardiovascular Exam Cardiovascular Exam: REGULAR RHYTHM, +S1, +S2. absent: Murmur - GI/Abdominal Exam GI & Abdominal Exam: Soft, Normal Bowel Sounds. absent: Tenderness - Extremities Exam Extremities Exam: absent: Calf Tenderness - Neurological Exam Neurological Exam: Alert, Awake Additional comments: AAOx2 Motor - move all extremities, 4+/5 Sensory - grossly intact Coordination - [id number] intact - Psychiatric Exam Psychiatric exam: Normal Affect, Normal Mood - Skin Skin Exam: Dry, Warm Assessment and Plan - Assessment and Plan (Free Text) Plan: Ms. Blackburn, 82F, former smoker, with PMHx CAD s/p stent, O2 dependent COPD, emphysema, pulmonary hypertension, and a recent wrist fracture due to fall, was transferred from rehabilitation. She was sent back to the hospital for cough, congestion, weakness, fatique, poor intake by mouth, and increase confusion. Pt was recently discharged from [facility] to subacute rehab on 09/30/17 for intractable R hip pain s/p fall sustained L distal radious impaction fracture, requiring splinting. Her bnp on admission was 4910. She was found to have Acute diastolic congestive heart failure. Neurology was consulted for confusion. Patient developed oliguria yesterday. Encephalopathy and confusion possibly due to hypercapnia from Acute diastolic congestive heart failure in the setting of End stage COPD, Severe Pulmonary HTN - improving - thiamine 100mg IM daily for neuronal activationg - deliriurm precautions with day-night orientation and day time activities - optimizing respiratory status per pulm and primary - blood sugar goal 140-180 - avoid sedative - Stop seroquel - Continue medical management per primary team s/r/d/w Dr. Grady <Juan Grady - Last Filed: 10/06/17 10:01> Objective - Vital Signs/Intake and Output Vital Signs (last 24 hours): Temp Pulse Resp BP Pulse Ox 97.6 F 80 20 118/68 95 10/06/17 08:21 10/06/17 09:03 10/06/17 08:21 10/06/17 09:03 10/06/17 08:21 Intake and Output: 10/06/17 10/06/17 06:59 18:59 Intake Total 460 Output Total 200 Balance 260 - Medications Medications: Current Medications Alprazolam (Xanax) 0.25 mg PO Q8 PRN; Protocol PRN Reason: Anxiety Stop: 10/10/17 06:03 Amlodipine Besylate (Norvasc) 5 mg PO DAILY [facility] Last Admin: 10/06/17 09:03 Dose: 5 mg Aspirin (Ecotrin) 81 mg PO DAILY [facility] Last Admin: 10/06/17 09:06 Dose: 81 mg Clopidogrel Bisulfate (Plavix) 75 mg PO DAILY [facility] Last Admin: 10/06/17 09:04 Dose: 75 mg Enoxaparin Sodium (Lovenox) 40 mg SC DAILY [facility] PRN Reason: Protocol Last Admin: 10/06/17 09:05 Dose: 40 mg Home Med (Home Med) 1 unit PO Q12 [facility] Last Admin: 10/06/17 09:15 Dose: 1 unit Pantoprazole Sodium (Protonix 40mg Ivpb) 40 mg in 100 mls @ 200 mls/hr IVPB 0600 [facility] Last Admin: 10/06/17 06:16 Dose: 200 mls/hr Ketorolac Tromethamine (Toradol) 30 mg IVP Q6 PRN PRN Reason: Pain, moderate (4-7) Last Admin: 10/05/17 08:34 Dose: 30 mg Levalbuterol HCl (Xopenex) 0.63 mg IH [id number] [facility] Last Admin: 10/06/17 07:44 Dose: 0.63 mg Levalbuterol HCl (Xopenex) 0.63 mg IH Q2 PRN PRN Reason: Shortness of Breath Methylprednisolone (Solu-Medrol) 30 mg IVP Q12 [facility] Last Admin: 10/06/17 09:05 Dose: 30 mg Nystatin (Nystatin Oral Susp) 5 ml PO QID [facility] Last Admin: 10/06/17 09:04 Dose: 5 ml Promethazine HCl (Phenergan Syrup) 6.25 mg PO Q6H PRN PRN Reason: Cough Sildenafil Citrate (Revatio) 20 mg PO BID [facility] Last Admin: 10/06/17 09:05 Dose: 20 mg Thiamine HCl (Vitamin B1 Inj) 100 mg IM DAILY [facility] Last Admin: 10/06/17 09:06 Dose: 100 mg - Labs Labs: 10/06/17 05:30 10/06/17 05:30 PT 12.1 SECONDS (9.4-12.5) 10/02/17 16:15 INR 1.06 (0.93-1.08) 10/02/17 16:15 APTT 28.0 Seconds (25.1-36.5) 10/02/17 16:15 Attending/Attestation - Attestation I have personally seen and examined this patient.: Yes I have fully participated in the care of the patient.: Yes I have reviewed all pertinent clinical information, including history, physical exam and plan: Yes
--- NOTE | 2017-10-05 20:34 | PN ---
DATE: 10/05/2017 SUBJECTIVE: The patient seen in bed in no acute distress. No fever. No chills. PHYSICAL EXAMINATION: VITAL SIGNS: Temperature is 97, blood pressure 101/50, respiratory rate of 20 and heart rate of 95. HEENT: Unremarkable. NECK: Supple. LUNGS: Have decreased breath sounds. HEART: Normal S1 and S2. ABDOMEN: Soft and nontender. LABORATORY DATA: Reveals a white count is 10.6. BUN of 53 and creatinine 1.0. Procalcitonin of 0.07. Influenza is negative. ASSESSMENT AND PLAN: This is an 82-year-old female who was seen early this morning in 275, bed 1 with end-stage chronic obstructive lung disease, O2 dependent coronary artery disease, hypertension, hyperlipidemia, congestive heart failure, mild aortic regurgitation, severe pulmonary hypertension, osteoporosis. 1. Systemic inflammatory response syndrome with acute diastolic congestive heart failure on top of chronic congestive heart failure. I doubt underlying healthcare-associated pneumonia. Normal procalcitonin. Currently off of antibiotics. . Dr. Briggs's note is reviewed. Dr. Wheeler's note is reviewed. Jose Eastman MD
[2017-10-05] MEDS: Nystatin 100,000 Units/ml Oral Susp 5 ml UD PO SCH (21:33)
--- NOTE | 2017-10-05 22:41 | CP.PCM.PN ---
Subjective - Date & Time of Evaluation Date of Evaluation: 10/05/17 Time of Evaluation: 22:38 - Subjective Subjective: S:Complains of soreness in mouth. States that she has thrush and requests nystatin. Has no other complaints. Pertinent medical record was reviewed. O: Last Vital Signs 3 Temp 98.3 F 10/05/17 18:00 Pulse 93 H 10/05/17 18:00 Resp 20 10/05/17 18:00 BP 99/46 L 10/05/17 18:00 Pulse Ox 98 10/05/17 06:00 Awake, alert. Not in distress. LUNGS: Normal breathing pattern. HEENT: No thrush noted. Questionable erythema in lower lip buccal mucosa. A:Soreness in mouth. P:Nystatin as ordered. Objective - Vital Signs/Intake and Output Vital Signs (last 24 hours): Temp Pulse Resp BP Pulse Ox 98.3 F 93 H 20 99/46 L 98 10/05/17 18:00 10/05/17 18:00 10/05/17 18:00 10/05/17 18:00 10/05/17 06:00 Intake and Output: 10/05/17 10/06/17 18:59 06:59 Intake Total 720 240 Output Total 0 Balance 720 240 - Medications Medications: Current Medications Alprazolam (Xanax) 0.25 mg PO Q8 PRN; Protocol PRN Reason: Anxiety Stop: 10/10/17 06:03 Amlodipine Besylate (Norvasc) 5 mg PO DAILY [facility] Last Admin: 10/05/17 09:37 Dose: 5 mg Aspirin (Ecotrin) 81 mg PO DAILY [facility] Last Admin: 10/05/17 09:37 Dose: 81 mg Clopidogrel Bisulfate (Plavix) 75 mg PO DAILY [facility] Last Admin: 10/05/17 09:37 Dose: 75 mg Enoxaparin Sodium (Lovenox) 40 mg SC DAILY [facility] PRN Reason: Protocol Last Admin: 10/05/17 09:37 Dose: 40 mg Pantoprazole Sodium (Protonix 40mg Ivpb) 40 mg in 100 mls @ 200 mls/hr IVPB 0600 [facility] Last Admin: 10/05/17 06:25 Dose: 200 mls/hr Ketorolac Tromethamine (Toradol) 30 mg IVP Q6 PRN PRN Reason: Pain, moderate (4-7) Last Admin: 10/05/17 08:34 Dose: 30 mg Levalbuterol HCl (Xopenex) 0.63 mg IH [id number] [facility] Last Admin: 10/05/17 13:50 Dose: 0.63 mg Levalbuterol HCl (Xopenex) 0.63 mg IH Q2 PRN PRN Reason: Shortness of Breath Methylprednisolone (Solu-Medrol) 30 mg IVP Q12 [facility] Last Admin: 10/05/17 21:33 Dose: 30 mg Nystatin (Nystatin Oral Susp) 5 ml PO QID [facility] Last Admin: 10/05/17 21:33 Dose: 5 ml Promethazine HCl (Phenergan Syrup) 6.25 mg PO Q6H PRN PRN Reason: Cough Sildenafil Citrate (Revatio) 20 mg PO BID [facility] Last Admin: 10/05/17 17:28 Dose: 20 mg Thiamine HCl (Vitamin B1 Inj) 100 mg IM DAILY [facility] Last Admin: 10/05/17 09:38 Dose: 100 mg - Labs Labs: 10/05/17 06:30 10/05/17 06:30 PT 12.1 SECONDS (9.4-12.5) 10/02/17 16:15 INR 1.06 (0.93-1.08) 10/02/17 16:15 APTT 28.0 Seconds (25.1-36.5) 10/02/17 16:15
[2017-10-06] MEDS: Levalbuterol 0.63 MG/3 ML Inhal Soln UD IH SCH ×4 (02:04→20:41)
[2017-10-06] MEDS: Pantoprazole 40mg/100ml IVPB 40 MG/100 ML BAG IVPB SCH (06:16)
[2017-10-06 06:17] LABS: HEMOGLOBIN 12.2 g/dL (12.0-16.0); MEAN CELL VOLUME 94.3 fl (80.0-105.0); MEAN CORPUSCULAR HEMOGLOBIN 30.4 pg (25.0-35.0); MEAN CORPUSCULAR HGB CONC 32.3 g/dl (31.0-37.0); MEAN PLATELET VOLUME 11.3 fl (7.0-11.0); RBC 4.01 10^6/uL (3.5-6.1); RED CELL DISTRIBUTION WIDTH 14.1 % (11.5-14.5)
[2017-10-06 07:46] LABS: ALB/GLOB RATIO 1.4 (1.1-1.8); ALBUMIN 3.4 g/dL (3.0-4.8); ALT/SGPT 29 U/L (7-56); AST/SGOT 33 U/L (14-36); BLOOD UREA NITROGEN 70 mg/dL (7-21); CALCIUM 9.1 mg/dL (8.4-10.5); GFR AFRICAN-AMERICAN > 60; GFR NON-AFRICAN AMERICAN 53
--- NOTE | 2017-10-06 08:36 | PN ---
DATE: 10/06/2017 PULMONARY NOTE SUBJECTIVE: The patient appears comfortable this morning. She is awake and alert. She does appear less weak. OBJECTIVE: VITALS (last noted in the computer): Temperature is 97.8, pulse 87, respirations 18/20, blood pressure 122/64. Oxygen saturation on nasal cannula is 94%. HEENT: Normocephalic, atraumatic. No JVD. CARDIOVASCULAR: Systolic ejection murmur at the lower left sternal border. Questionable S3 gallop. LUNGS: Decreased breath sounds at the bases. Minimal/less rhonchi. No wheezing. EXTREMITIES: Positive for edema. No cyanosis, no clubbing. Calves are nontender to palpation. GI: Abdomen is soft, nontender, and nondistended. Bowel sounds are positive. SKIN: No acute rash. NEUROLOGIC: Limited at the present time. IMPRESSION: 1. Encephalopathy, weakness. 2. End-stage chronic obstructive pulmonary disease. 3. Severe pulmonary hypertension. 4. Increased B-type natriuretic peptide, rule out congestive heart failure. 5. Coronary artery disease. PLAN: The patient appears comfortable this morning. She is not short of breath at rest. She is awake and alert. She does appear less weak this morning. On physical exam, there is only minimal bronchospasm noted. I will continue the current nebulizer treatments and intravenous steroids (decreased yesterday) for now. Inputs by Cardiology and Infectious Disease are noted. The patient also remains on low-dose sildenafil. Clinical status of the patient is certainly improved - compared to the initial presentation. However, again, unfortunately, the overall status/prognosis for this patient remains poor. I will discuss the above with Dr. Wheeler. Evgeny Briggs MD [facility]
--- NOTE | 2017-10-06 08:37 | PN ---
CARDIOLOGY FOLLOWUP DATE: 10/05/2017 SUBJECTIVE: The patient's breathing is better. OBJECTIVE: VITAL SIGNS: Blood pressure is 101/53 and heart rate in the 80s. NECK: Negative JVD. LUNGS: Decreased breath sounds without rales. HEART: S1 and S2. EXTREMITIES: Without edema. LABORATORY DATA: BUN and creatinine is up to 63 and 1.0 and hemoglobin is 12. IMPRESSION 1. Prerenal azotemia. 2. Chronic obstructive pulmonary disease severe. 3. Coronary artery disease. 4. Stable angina. PLAN: Given these findings, we will discontinue the Lasix today. We will also discontinue telemetry. Harrison Echavarria MD
[2017-10-06] MEDS: Nystatin 100,000 Units/ml Oral Susp 5 ml UD PO SCH ×4 (09:04→22:10)
[2017-10-06] MEDS: Enoxaparin 40 mg Syringe SC SCH (09:05)
[2017-10-06] MEDS: Sildenafil 20 MG TAB PO SCH ×2 (09:05→17:44)
[2017-10-06] MEDS: MethylPREDNISolone 40 mg Vial IVP SCH ×2 (09:05→22:10)
[2017-10-06] MEDS: Thiamine 100 mg/ml Inj IM SCH (09:06)
[2017-10-06] MEDS: RANEXA 1000 MG PO SCH ×2 (09:15→22:10)
--- NOTE | 2017-10-06 13:57 | PN ---
DATE: SUBJECTIVE: I am hoping she goes to physical therapy today and is out of bed to chair. I have been asking she has been here, she has been very weak and reluctant to get out of bed and is very frustrating. Also, I think she is at the point where we could start thinking about getting into a back to where she came from. I am hoping we could do that in the next 24 hours if she is better. She was much worse when she came in and she is more talkative and more alert. MEDICATIONS: She is on Ecotrin, Lovenox, Norvasc, nystatin, Phenergan, Plavix, Protonix, Revatio, Solu-Medrol down to 30 mg Iv q. 12 h. The lungs are improving, less congestion, Toradol, vitamin B1, Xanax, and Xopenex. PHYSICAL EXAMINATION: VITAL SIGNS: 97.6 temperature, 84 pulse, 118/68 blood pressure, 20 respiratory rate, 95% O2 saturation nasal cannula. HEENT: Head is atraumatic, normocephalic. HEART: Regular rate. LUNGS: Much improved, there is still congestion, but improving. No wheezing. ABDOMEN: Soft. EXTREMITIES: No edema. LABORATORY DATA: She has a 11 white count, 12.2 hemoglobin, 37.8 hematocrit, 243 platelets. She has a 136 sodium, potassium 4, BUN 17, creatinine 1, and GFR is 53. Sugar is 188. Calcium 9.1, total bilirubin is 0.68. AST is 33, ALT is 29, alk phos 73, total protein 5.9. ASSESSMENT AND PLAN: She is being seen by Pulmonary, Neuro, Infectious Disease, Cardiology, and Renal. She has multiple issues when she came in, and I do think she is now starting to improve. She has very rough family. She is here for systemic inflammatory response syndrome, congestive heart failure, chronic obstructive pulmonary disease, questionable pneumonia throughout her stay here, end stage chronic obstructive pulmonary disease, and renal insufficiency. Hopefully, we will get her moving with physical therapy and get about to rehab in the next 24 hours. Nigel Wheeler DO [facility] # [id number] [facility]
--- NOTE | 2017-10-06 18:44 | PN ---
CARDIOLOGY FOLLOWUP DATE: 10/06/2017 SUBJECTIVE: The patient is without shortness of breath. OBJECTIVE: VITAL SIGNS: Blood pressure 118/68 and heart rate is in the 80s. LUNGS: Without rales. HEART: Reveals S1 and S2. EXTREMITIES: Without edema. LABORATORY DATA: Hemoglobin is 12. Chemistries; BUN and creatinine is 70 and 1.0. IMPRESSION: 1. Prerenal azotemia. 2. Severe chronic obstructive pulmonary disease. 3. Coronary artery disease. 4. Mild pulmonary hypertension. PLAN: Given these findings, Lasix is still on hold. Physical therapy has been ordered. Harrison Echavarria MD
[2017-10-07] MEDS: Levalbuterol 0.63 MG/3 ML Inhal Soln UD IH SCH ×4 (02:17→21:05)
--- NOTE | 2017-10-07 02:48 | PN ---
DATE: 10/06/2017 SUBJECTIVE: Patient is in bed in no acute distress, nontoxic. PHYSICAL EXAMINATION: VITAL SIGNS: Temperature is 97, blood pressure is 112/50, respiratory rate of 16. HEENT: Unremarkable. NECK: Supple. LUNGS: Have decreased breath sounds. HEART: Normal S1, S2. ABDOMEN: Soft. Laboratory examination reveals a white count of 11,000, hemoglobin of 12. BUN of 70, creatinine of 1.0. Procalcitonin is 0.07. Microbiology is noted. Negative blood cultures. Negative urine cultures. Review of orders reveals the patient to be off of antibiotics. Patient is on Solu-Medrol. ASSESSMENT AND PLAN: This is an 82-year-old female seen earlier today with a history of chronic obstructive lung disease, end-stage O2 dependent coronary artery disease and O2 dependent chronic obstructive pulmonary disease. Patient also with coronary artery disease, hypertension, hyperlipidemia, congestive heart failure, mild aortic regurgitation, severe pulmonary hypertension, osteoporosis, with systemic inflammatory response syndrome with acute diastolic congestive heart failure on top of chronic congestive heart failure, I doubt underlying health-care associated pneumonia, normal procalcitonin, negative cultures, afebrile, off of antibiotics. Patient is at risk for developing nosocomial infections. Jose Eastman MD
[2017-10-07] MEDS: Pantoprazole 40mg/100ml IVPB 40 MG/100 ML BAG IVPB SCH (05:32)
[2017-10-07 06:05] LABS: HEMOGLOBIN 11.3 g/dL (12.0-16.0); MEAN CELL VOLUME 95.2 fl (80.0-105.0); MEAN CORPUSCULAR HGB CONC 31.5 g/dl (31.0-37.0); MEAN PLATELET VOLUME 11.1 fl (7.0-11.0); RBC 3.77 10^6/uL (3.5-6.1)
[2017-10-07 07:31] LABS: ALB/GLOB RATIO 1.4 (1.1-1.8); ALBUMIN 3.2 g/dL (3.0-4.8); ALT/SGPT 31 U/L (7-56); AST/SGOT 23 U/L (14-36); BLOOD UREA NITROGEN 78 mg/dL (7-21); CALCIUM 8.9 mg/dL (8.4-10.5); GFR AFRICAN-AMERICAN > 60; GFR NON-AFRICAN AMERICAN 53
--- NOTE | 2017-10-07 08:43 | PN ---
DATE: PULMONARY NOTE SUBJECTIVE: The patient appears comfortable this morning. She is not short of breath at rest. She is awake and alert. PHYSICAL EXAMINATION VITAL SIGNS: (Last noted in the computer): Temperature is 97.3, pulse 80, respirations 19, blood pressure 120/67. Oxygen saturation on nasal cannula is 96%. HEENT: Normocephalic, atraumatic. No JVD. CARDIOVASCULAR: Systolic ejection murmur at the lower left sternal border. Questionable S3 gallop. LUNGS: Decreased breath sounds at the bases. Minimal/less rhonchi. No wheezing. EXTREMITIES: Less edema. No cyanosis or clubbing. Calves are nontender to palpation. GI: Abdomen is soft, nontender and nondistended. Bowel sounds are positive. SKIN: No acute rash. NEUROLOGIC: Limited at the present time. IMPRESSION: 1. Encephalopathy, weakness--improving. 2. End-stage chronic obstructive pulmonary disease. 3. Severe pulmonary hypertension. 4. Increased B-type natriuretic peptide, rule out congestive heart failure. 5. Coronary artery disease. PLAN: The patient appears comfortable this morning. She is not short of breath at rest. She is awake and alert. She is much less weak and got out of bed yesterday. She is also eating more. She does state to feeling much better overall. On physical exam, only minimal bronchospasm is noted. I will continue the current nebulizer treatments and low-dose intravenous steroids for now. The patient also remains on Revatio for her pulmonary hypertension. Inputs by Cardiology and Infectious Disease are noted. Clinical status of the patient is significantly improved - compared to the initial presentation. However, again, unfortunately, the overall status/prognosis for this deisy patient does remain poor. All are aware. I will discuss the above with Dr. Wheeler. Evgeny Briggs MD [facility]
[2017-10-07] MEDS: Enoxaparin 40 mg Syringe SC SCH (09:14)
[2017-10-07] MEDS: Sildenafil 20 MG TAB PO SCH ×2 (09:14→18:07)
[2017-10-07] MEDS: Nystatin 100,000 Units/ml Oral Susp 5 ml UD PO SCH ×4 (09:14→21:34)
[2017-10-07] MEDS: Thiamine 100 mg/ml Inj IM SCH (09:15)
[2017-10-07] MEDS: MethylPREDNISolone 40 mg Vial IVP SCH ×2 (09:16→21:34)
[2017-10-07] MEDS: RANEXA 1000 MG PO SCH (09:19)
[2017-10-07] MEDS ORDERED: DEXILANT 60 MG PO STA (10:54)
--- NOTE | 2017-10-07 11:48 | PN ---
DATE: SUBJECTIVE: I saw her resting comfortably in bed. She got out of bed yesterday which is very good. I do think she is improving. She is still on IV Solu-Medrol. She is being seen by Cardiology, Pulmonology, Neurology, Infectious Disease, Renal. MEDICATIONS: She is on Ecotrin, Lovenox, Norvasc, nystatin, Phenergan, Plavix, Protonix, sildenafil. She is on Solu-Medrol, Toradol, vitamin B1, Xanax, Xopenex. PHYSICAL EXAMINATION: VITAL SIGNS: 97.4 temperature, 68 pulse, 117/68 blood pressure, 20 respiratory rate, 96% O2 sat on 2 liters. HEENT: Head: Atraumatic, normocephalic. HEART: Regular rate. LUNGS: Decreased breath sounds, but fairly clear. ABDOMEN: Soft. EXTREMITIES: No edema. She is still weak. She is getting out of bed to chair every day like yesterday. LABORATORY DATA: She has a white count of 8, hemoglobin 11.3, hematocrit 35.9, platelets 190. 138 sodium, potassium 4.4, BUN creatinine 1, GFR is 53. Sugar is 161, calcium is 8.9, AST is 23, ALT is 31 and alk phos is 63. Total bili is 0.6, protein 5.6, procalcitonin 0.07. I do think she is improving. She also had UTI. Family does not want her to be discharged yet, still I do not think she is ready. The patient does not want to go. She thinks she needs more time in the hospital. They felt that she was sent out of the hospital too early and bounced back. I do believe this is the nature of her lung disease and she will be coming back and forth because she had severe end-stage COPD. We will keep her on Solu-Medrol as per Pulmonary and Pulmonary tells me I could discharge her. I will discharge her. Continue IV Solu-Medrol. We will check her labs tomorrow, get her out of bed to chair, physical therapy, then subacute rehab back on Tuesday. Nigel Wheeler DO [facility] # [id number] [facility]
[2017-10-07] MEDS: DEXILANT 60 MG PO SCH (12:47)
--- NOTE | 2017-10-07 17:18 | PN ---
DATE: 10/07/2017 SUBJECTIVE: The patient is sitting in a chair, hungry, and eating well. OBJECTIVE: VITAL SIGNS: Blood pressure is 117/63, the heart rate is in the 60s. NECK: Negative JVD. LUNGS: Decreased breath sounds bilaterally. HEART: Reveal S1, S2. EXTREMITIES: Without change. LABORATORY DATA: Hemoglobin is 11.3. Chemistries, BUN and creatinine are 78 and 1.0. IMPRESSION: 1. Severe chronic obstructive pulmonary disease. 2. Diabetes mellitus. 3. Stable angina. 4. Coronary artery disease. 5. Prerenal azotemia. PLAN: Given these findings, the patient is off Lasix. The patient is scheduled for transfer to subacute rehab today. Followup and instructions were given to the patient in detail. Harrison Echavarria MD
--- NOTE | 2017-10-07 21:25 | CP.PCM.PN ---
Subjective - Date & Time of Evaluation Date of Evaluation: 10/07/17 Time of Evaluation: 13:00 - Subjective Subjective: Comfortable, no fevers. Objective - Vital Signs/Intake and Output Vital Signs (last 24 hours): Temp Pulse Resp BP Pulse Ox 97.4 F L 68 20 117/63 96 10/07/17 08:11 10/07/17 09:14 10/07/17 08:11 10/07/17 09:14 10/07/17 08:11 Intake and Output: 10/07/17 10/08/17 18:59 06:59 Intake Total 640 Balance 640 - Medications Medications: Current Medications Alprazolam (Xanax) 0.25 mg PO Q8 PRN; Protocol PRN Reason: Anxiety Stop: 10/10/17 06:03 Amlodipine Besylate (Norvasc) 5 mg PO DAILY [facility] Last Admin: 10/07/17 09:14 Dose: 5 mg Aspirin (Ecotrin) 81 mg PO DAILY [facility] Last Admin: 10/07/17 09:14 Dose: 81 mg Clopidogrel Bisulfate (Plavix) 75 mg PO DAILY [facility] Last Admin: 10/07/17 09:14 Dose: 75 mg Enoxaparin Sodium (Lovenox) 40 mg SC DAILY [facility] PRN Reason: Protocol Last Admin: 10/07/17 09:14 Dose: 40 mg Home Med (Home Med) 1 unit PO DAILY [facility] Last Admin: 10/07/17 12:47 Dose: 1 unit Ketorolac Tromethamine (Toradol) 30 mg IVP Q6 PRN PRN Reason: Pain, moderate (4-7) Last Admin: 10/06/17 11:45 Dose: 30 mg Levalbuterol HCl (Xopenex) 0.63 mg IH [id number] [facility] Last Admin: 10/07/17 13:14 Dose: 0.63 mg Levalbuterol HCl (Xopenex) 0.63 mg IH Q2 PRN PRN Reason: Shortness of Breath Methylprednisolone (Solu-Medrol) 30 mg IVP Q12 [facility] Last Admin: 10/07/17 09:16 Dose: 30 mg Nystatin (Nystatin Oral Susp) 5 ml PO QID [facility] Last Admin: 10/07/17 18:07 Dose: 5 ml Promethazine HCl (Phenergan Syrup) 6.25 mg PO Q6H PRN PRN Reason: Cough Sildenafil Citrate (Revatio) 20 mg PO BID [facility] Last Admin: 10/07/17 18:07 Dose: 20 mg Thiamine HCl (Vitamin B1 Inj) 100 mg IM DAILY [facility] Last Admin: 10/07/17 09:15 Dose: 100 mg - Labs Labs: 10/07/17 05:50 10/07/17 05:50 PT 12.1 SECONDS (9.4-12.5) 10/02/17 16:15 INR 1.06 (0.93-1.08) 10/02/17 16:15 APTT 28.0 Seconds (25.1-36.5) 10/02/17 16:15 - Constitutional Appears: Non-toxic - Head Exam Head Exam: NORMAL INSPECTION - Respiratory Exam Respiratory Exam: Decreased Breath Sounds - Cardiovascular Exam Cardiovascular Exam: +S1, +S2 - GI/Abdominal Exam GI & Abdominal Exam: Soft. absent: Tenderness Assessment and Plan - Assessment and Plan (Free Text) Plan: Assessment S/P SIRS due to acute on chronic CHF end-stage COPD pulmonary HTN CAD dyslipidemia Plan continue to monitor off antibiotics since he is at risk for nosocomial infections
[2017-10-08] MEDS: Levalbuterol 0.63 MG/3 ML Inhal Soln UD IH SCH ×4 (02:33→21:56)
[2017-10-08] MEDS ORDERED: Pantoprazole 40 mg EC Tab PO SCH (06:00)
[2017-10-08 07:45] LABS: HEMOGLOBIN 11.2 g/dL (12.0-16.0); MEAN CELL VOLUME 95.2 fl (80.0-105.0); MEAN CORPUSCULAR HGB CONC 31.5 g/dl (31.0-37.0); MEAN PLATELET VOLUME 11.4 fl (7.0-11.0); RBC 3.73 10^6/uL (3.5-6.1); RED CELL DISTRIBUTION WIDTH 13.8 % (11.5-14.5); WHITE BLOOD COUNT 8.7 10^3/ul (4.5-11.0)
[2017-10-08 07:58] LABS: ALB/GLOB RATIO 1.3 (1.1-1.8); ALBUMIN 3.1 g/dL (3.0-4.8); ALT/SGPT 32 U/L (7-56); AST/SGOT 20 U/L (14-36); BLOOD UREA NITROGEN 57 mg/dL (7-21); CALCIUM 8.5 mg/dL (8.4-10.5); GFR AFRICAN-AMERICAN > 60; GFR NON-AFRICAN AMERICAN > 60
[2017-10-08] MEDS: MethylPREDNISolone 40 mg Vial IVP SCH ×2 (11:13→21:37)
[2017-10-08] MEDS: Thiamine 100 mg/ml Inj IM SCH (11:15)
[2017-10-08] MEDS: Sildenafil 20 MG TAB PO SCH ×2 (11:20→17:59)
[2017-10-08] MEDS: Nystatin 100,000 Units/ml Oral Susp 5 ml UD PO SCH ×4 (11:20→21:38)
[2017-10-08] MEDS: DEXILANT 60 MG PO SCH (11:24)
[2017-10-08] MEDS: Enoxaparin 40 mg Syringe SC SCH (11:42)
--- NOTE | 2017-10-08 21:04 | PN ---
DATE: SUBJECTIVE: She is doing better. She is getting out of bed. She has had physical therapy. She is eating better. She is breathing better. Had a plan to go back to subacute rehab on Tuesday. MEDICATIONS: She is on Ecotrin, Lovenox, Norvasc, nystatin, Phenergan DM, Plavix, Revatio, Solu-Medrol, Toradol, vitamin B1, Xanax, and Xopenex. PHYSICAL EXAMINATION: VITAL SIGNS: She has a 98.2 temperature, 75 pulse, 127/65 blood pressure, 20 respiratory rate, 98% O2 sat on room air. HEENT: Head is atraumatic, normocephalic. HEART: Regular rate. LUNGS: Decreased breath sounds, but clear. ABDOMEN: Soft. EXTREMITIES: No edema. She is getting stronger. She is talking better. Overall improved. LABORATORY DATA: She has a 8.7 white count, 11.2 hemoglobin, 35.5 hematocrit with 195 platelets. She has a 138 sodium, potassium 4.3, BUN is 57, creatinine 0.9, GFR is greater than 60, sugar is 230, calcium is 8.5. Total Bili is 0.5, AST is 20, ALT is 32, and alk phos is 69. ASSESSMENT AND PLAN: She has end-stage chronic obstructive pulmonary disease, coronary artery disease, hypertension, pulmonary hypertension, urinary tract infection, congestive heart failure, high lipid, systemic inflammatory response syndrome. We will get her moving. Hopefully, Tuesday would be the discharge day back to subacute rehab. Continue IV Solu-Medrol as per Pulmonary. Nigel Wheeler DO
--- NOTE | 2017-10-09 01:31 | PN ---
DATE: 10/08/2017 SUBJECTIVE: The patient seen early this morning in 576, bed 1. No fevers. No chills. PHYSICAL EXAMINATION VITAL SIGNS: Temperature is 98, blood pressure is 120/70 and respiratory rate of 16. HEENT: Unremarkable. NECK: Supple. LUNGS: Have decreased breath sounds. HEART: Normal S1 and S2. ABDOMEN: Soft. LABORATORY DATA: Reveals the white count of 8.7 and chemistries reveals a BUN of 57, creatinine of 0.9, procalcitonin 0.07. Microbiology reveals a blood cultures are negative. Urine culture are negative. ASSESSMENT AND PLAN: An 82-year-old female with systemic inflammatory response syndrome due to acute on chronic congestive heart failure, end-stage, chronic obstructive lung disease, pulmonary hypertension, coronary artery disease, and dyslipidemia. Currently off of antibiotics and the patient at risk for developing nosocomial infections. Jose Eastman MD
[2017-10-09] MEDS: Levalbuterol 0.63 MG/3 ML Inhal Soln UD IH SCH ×4 (01:55→21:20)
[2017-10-09 07:58] LABS: HEMOGLOBIN 11.3 g/dL (12.0-16.0); MEAN CELL VOLUME 95.7 fl (80.0-105.0); MEAN CORPUSCULAR HEMOGLOBIN 30.1 pg (25.0-35.0); MEAN CORPUSCULAR HGB CONC 31.4 g/dl (31.0-37.0); MEAN PLATELET VOLUME 11.6 fl (7.0-11.0); RBC 3.76 10^6/uL (3.5-6.1); RED CELL DISTRIBUTION WIDTH 13.6 % (11.5-14.5); WHITE BLOOD COUNT 9.8 10^3/ul (4.5-11.0)
[2017-10-09 08:18] LABS: ALB/GLOB RATIO 1.2 (1.1-1.8); ALT/SGPT 33 U/L (7-56); AST/SGOT 15 U/L (14-36); BLOOD UREA NITROGEN 53 mg/dL (7-21); CALCIUM 9.3 mg/dL (8.4-10.5); GFR AFRICAN-AMERICAN > 60; GFR NON-AFRICAN AMERICAN > 60
[2017-10-09] MEDS: Sildenafil 20 MG TAB PO SCH ×2 (10:18→17:23)
[2017-10-09] MEDS: Enoxaparin 40 mg Syringe SC SCH (10:18)
[2017-10-09] MEDS: MethylPREDNISolone 40 mg Vial IVP SCH ×2 (10:18→21:42)
[2017-10-09] MEDS: Nystatin 100,000 Units/ml Oral Susp 5 ml UD PO SCH ×4 (10:19→21:41)
[2017-10-09] MEDS: Thiamine 100 mg/ml Inj IM SCH (10:19)
[2017-10-09] MEDS: DEXILANT 60 MG PO SCH (10:19)
--- NOTE | 2017-10-09 14:31 | US ---
PROCEDURE: Ultrasound of the Kidneys HISTORY: dark urine COMPARISON: CT chest, abdomen, and pelvis without contrast performed 09/21/17 TECHNIQUE: Sonogram of the kidneys. FINDINGS: RIGHT KIDNEY: Measures: 9.1 x 4.2 x 5.1 cm. Echogenic renal parenchyma. No obstructing calculus or hydronephrosis identified. LEFT KIDNEY: Measures: 9.1 x 4.4 x 5.1 cm. Echogenic renal parenchyma. No obstructing calculus or hydronephrosis identified. OTHER FINDINGS: None. IMPRESSION: Echogenic renal parenchyma may be seen in the setting of medical renal disease. No obstructing calculus or hydronephrosis identified.
--- NOTE | 2017-10-09 15:05 | CP.PCM.PN ---
Subjective - Date & Time of Evaluation Date of Evaluation: 10/09/17 Time of Evaluation: 15:03 - Subjective Subjective: RENAL FOLLOW UP Assessment: Stable chronic respi acidosis with renal compensation CAD s/p stents, COPD.emphysema on home O2, pulmonary hypertension, HTN, Hyperlipidemias low back pain rise in BUN likely due to diuretics, steroids mild hypokalemia dark urine Plan renal function and electrolytes stable concern for dark urine - awaiting UA suspect likely mild hypovolemia/ concentrated uring. bp stable COPD stable per primary team S: seen and examined, family concerned re: dark urein Physical Examination: family bedside General Appearance: Comfortable, in no acute respiratory distress, co-operative . elderly female Vitals reviewed and noted as below Head; Atraumatic, normocephalic ENT: no ulcers no thrush. Tongue is midline and dry. Oropharynx: no rash or ulcers. EYES: Pupils are equal, round and reactive to light accommodation. Eye muscles and extraocular movement intact. Sclera is anicteric. Neck; supple no lymphadenopathy, no thyromegaly or bruit Lungs: Normal respiratory rate/effort. Breath sounds bilateral equal and has bibasal crackles Heart: Normal rate. s1s2 normal. No rub or gallop. Extremities: no edema. No varicose veins Neurological: Patient is alert, awake and oriented to person, place and time. No focal deficit. Strength bilateral appropriate and equal Skin: Warm and dry. Normal turgor. No rash. Palpitation: Normal elasticity for age Abdomen: Abdomen is soft. Bowel sounds +. There is no abdominal tenderness, no guarding/rigidity no organomegaly Psych: normal insight and normal affect/mood MSK: no joint tenderness or swelling. Digits and nails normal, no deformity : kidney or bladder not palpable. Objective - Vital Signs/Intake and Output Vital Signs (last 24 hours): Temp Pulse Resp BP Pulse Ox 97.6 F 77 20 131/72 100 10/09/17 07:30 10/09/17 07:30 10/09/17 07:30 10/09/17 07:30 10/09/17 07:30 Intake and Output: 10/09/17 10/09/17 06:59 18:59 Intake Total 300 480 Output Total 350 150 Balance -50 330 - Medications Medications: Current Medications Alprazolam (Xanax) 0.25 mg PO Q8 PRN; Protocol PRN Reason: Anxiety Stop: 10/10/17 06:03 Amlodipine Besylate (Norvasc) 5 mg PO DAILY [facility] Last Admin: 10/09/17 10:18 Dose: 5 mg Aspirin (Ecotrin) 81 mg PO DAILY [facility] Last Admin: 10/09/17 10:18 Dose: 81 mg Clopidogrel Bisulfate (Plavix) 75 mg PO DAILY [facility] Last Admin: 10/09/17 10:18 Dose: 75 mg Enoxaparin Sodium (Lovenox) 40 mg SC DAILY [facility] PRN Reason: Protocol Last Admin: 10/09/17 10:18 Dose: 40 mg Home Med (Home Med) 1 unit PO DAILY [facility] Last Admin: 10/09/17 10:19 Dose: Not Given Ketorolac Tromethamine (Toradol) 30 mg IVP Q6 PRN PRN Reason: Pain, moderate (4-7) Last Admin: 10/08/17 17:58 Dose: 30 mg Levalbuterol HCl (Xopenex) 0.63 mg IH [id number] [facility] Last Admin: 10/09/17 13:58 Dose: 0.63 mg Levalbuterol HCl (Xopenex) 0.63 mg IH Q2 PRN PRN Reason: Shortness of Breath Methylprednisolone (Solu-Medrol) 30 mg IVP Q12 [facility] Last Admin: 10/09/17 10:18 Dose: 30 mg Nystatin (Nystatin Oral Susp) 5 ml PO QID [facility] Last Admin: 10/09/17 13:09 Dose: 5 ml Promethazine HCl (Phenergan Syrup) 6.25 mg PO Q6H PRN PRN Reason: Cough Sildenafil Citrate (Revatio) 20 mg PO BID [facility] Last Admin: 10/09/17 10:18 Dose: 20 mg Thiamine HCl (Vitamin B1 Inj) 100 mg IM DAILY [facility] Last Admin: 10/09/17 10:19 Dose: 100 mg - Labs Labs: 10/09/17 07:50 10/09/17 07:50 PT 12.1 SECONDS (9.4-12.5) 10/02/17 16:15 INR 1.06 (0.93-1.08) 10/02/17 16:15 APTT 28.0 Seconds (25.1-36.5) 10/02/17 16:15
--- NOTE | 2017-10-09 15:47 | PN ---
DATE: SUBJECTIVE: She is sitting up in bed. She is eating well. She gets out of bed, definitely the best I have seen her in a few days. Daughter calls me with lots of concerns, wants reevaluation of the kidneys with the renal doctor, also wants a renal ultrasound, also has multiple demands, and did not want to being discharged from the hospital at all. She is currently on Ecotrin, Lovenox, Norvasc, nystatin, Phenergan, Plavix, Revatio, Solu-Medrol, Toradol, vitamin B1, Xanax, and Xopenex. OBJECTIVE: VITAL SIGNS: Temperature 97.6, 77 pulse, 131/72 blood pressure, 20 respiratory rate, and 100% O2 sat on room air. HEENT: Head is atraumatic, normocephalic. HEART: Regular rate. LUNGS: Clear to auscultation. ABDOMEN: Soft. EXTREMITIES: No edema. LABORATORY DATA: She has 9.8 white count, 11.3, hemoglobin, and 36 hematocrit with 194 platelets. She has 139 sodium, potassium 4.8, BUN is 53, creatinine is 0.8, GFR is greater than 60, sugar is 137, calcium is 9.3, total bilirubin is 0.5, AST is ALT is 33, alkaline phosphatase is 69, and total protein is 5.4. I am repeating urine, getting kidney ultrasound, getting Dr. the renal doctor back on the case. She is being seen by Infectious Disease and Cardiology. She has systemic inflammatory response syndrome, [id number] congestive heart failure, end-stage chronic obstructive pulmonary disease, pulmonary hypertension, coronary artery disease, and high cholesterol. Her urine is a little bit dark, we are going to repeat it and see what it says and we will continue to aggressively treat her. Get her out of bed to chair, make sure she is eating. Discussed with the family at length. Nigel Wheeler DO JOSEPH
[2017-10-09 16:30] LABS: PH,URINE 6.5 (4.7-8.0); URINE BILIRUBIN NEGATIVE (NEGATIVE); URINE BLOOD NEGATIVE (NEGATIVE); URINE GLUCOSE (UA) NEGATIVE (NEGATIVE); URINE LEUKOCYTE ESTERASE NEGATIVE Leu/uL (NEGATIVE); URINE NITRATE NEGATIVE (NEGATIVE); URINE PROTEIN 30 mg/dL (<30 mg/dL); URINE UROBILINOGEN 0.2 E.U./dL (<1 E.U./dL)
[2017-10-09 16:39] LABS: URINE APPEARANCE CLEAR (CLEAR); URINE COLOR YELLOW (YELLOW)
[2017-10-09 16:42] LABS: URINE RBC NEGATIVE /hpf (0-2)
[2017-10-09 16:43] LABS: URINE BACTERIA MOD (NEG)
[2017-10-10] MEDS: Levalbuterol 0.63 MG/3 ML Inhal Soln UD IH SCH ×4 (04:02→21:31)
--- NOTE | 2017-10-10 05:31 | PN ---
DATE: 10/09/2017 SUBJECTIVE: The patient is in bed in no acute distress. PHYSICAL EXAMINATION: VITAL SIGNS: Temperature is 98, blood pressure is 130/70, respiratory rate of 20.. HEENT: Unremarkable. NECK: Supple.. LUNGS: Have decreased breath sounds. HEART: Normal S1 and S2. ABDOMEN: Soft, nontender. LABORATORY DATA: Reveals a white count of 9.8, hemoglobin of 11, platelets are 194,000. BUN of 53, creatinine of 0.8. Procalcitonin 0.07. Influenza is negative. Blood cultures, no growth. Urine cultures are negative. Ultrasound is reviewed, there is no hydronephrosis, no obstructing calculi. ASSESSMENT AND PLAN: An 82-year-old female with systemic inflammatory response syndrome due to acute on chronic congestive heart failure, end-stage chronic obstructive lung disease, pulmonary hypertension, coronary artery disease, dyslipidemia, off of antibiotics, on Solu-Medrol. Jose Eastman MD
[2017-10-10 07:23] LABS: HEMOGLOBIN 10.8 g/dL (12.0-16.0); MEAN CELL VOLUME 95.6 fl (80.0-105.0); MEAN CORPUSCULAR HEMOGLOBIN 29.8 pg (25.0-35.0); MEAN CORPUSCULAR HGB CONC 31.2 g/dl (31.0-37.0); MEAN PLATELET VOLUME 11.4 fl (7.0-11.0); RBC 3.62 10^6/uL (3.5-6.1); RED CELL DISTRIBUTION WIDTH 13.7 % (11.5-14.5); WHITE BLOOD COUNT 9.6 10^3/ul (4.5-11.0)
[2017-10-10 07:30] LABS: ALB/GLOB RATIO 1.2 (1.1-1.8); ALBUMIN 2.9 g/dL (3.0-4.8); ALT/SGPT 26 U/L (7-56); AST/SGOT 18 U/L (14-36); BLOOD UREA NITROGEN 58 mg/dL (7-21); CALCIUM 9.1 mg/dL (8.4-10.5); GFR AFRICAN-AMERICAN > 60; GFR NON-AFRICAN AMERICAN > 60
--- NOTE | 2017-10-10 08:15 | PN ---
DATE: 10/10/2017 SUBJECTIVE: The patient appears comfortable this morning. She is not short of breath at rest. OBJECTIVE: VITAL SIGNS (LAST NOTED IN THE COMPUTER): Temperature is 97.6, pulse is 76, respirations are 18/20, blood pressure is 131/72, and oxygen saturation on nasal cannula is 100%. HEENT: Normocephalic and atraumatic. No JVD. CARDIOVASCULAR: Systolic ejection murmur at the lower left sternal border. No S3 gallop. LUNGS: Clear bilaterally this morning. EXTREMITIES: Less edema. No cyanosis, no clubbing. Calves are nontender to palpation. GASTROINTESTINAL: Abdomen is soft, nontender and nondistended. Bowel sounds are positive. SKIN: No acute rash. NEUROLOGIC: Limited at the present time. IMPRESSION: 1. Encephalopathy, weakness - improving. 2. End-stage chronic obstructive pulmonary disease. 3. Severe pulmonary hypertension. 4. Increased B-type natriuretic peptide, rule out congestive heart failure. 5. Coronary artery disease. PLAN: The patient appears comfortable this morning. She is not short of breath at rest. She is awake and alert. She appears much stronger than last week. She does state to feeling much much better overall. On physical exam, her lungs are now clear. In addition, the oxygen saturation on nasal cannula is now 100%. I will continue the current nebulizer treatments and change to oral steroids this morning. The patient also remains on Revatio for her pulmonary hypertension. Inputs by Infectious Disease and Renal are noted. Clinical status of the patient is significantly improved - compared to the initial presentation. However, again, unfortunately, the overall status/prognosis for this patient does remain poor. I did discuss the above with Dr. Wheeler this morning. Evgeny Briggs MD MTDD
[2017-10-10] MEDS: Enoxaparin 40 mg Syringe SC SCH (09:14)
[2017-10-10] MEDS: DEXILANT 60 MG PO SCH (09:14)
[2017-10-10] MEDS: Thiamine 100 mg/ml Inj IM SCH (09:19)
[2017-10-10] MEDS: Nystatin 100,000 Units/ml Oral Susp 5 ml UD PO SCH ×3 (09:19→21:34)
[2017-10-10] MEDS: Sildenafil 20 MG TAB PO SCH ×2 (09:19→19:05)
--- NOTE | 2017-10-10 09:27 | PN ---
DATE: 10/08/2017 PULMONARY PROGRESS NOTE SUBJECTIVE: The patient is markedly better, lying in bed, in good spirits. She is anxious to be discharged. She states that she is better than she has been in a longtime. She is looking forward to having her children come and visit her today. We had a long talk and she states that her condition is generally much better. She continues to be compliant with her medications and she is happy to follow up in the office with Dr. Briggs in the future as in the past. PHYSICAL EXAMINATION VITAL SIGNS: Stable. She is afebrile, respiratory rate is 16, blood pressure 120/70, O2 saturation on nasal cannula 96%. HEENT: Normocephalic, atraumatic. No jugular venous distention. No bruits. No mass. No lymphadenopathy. CARDIOVASCULAR: Regular rhythm. S1 and S2. Soft systolic ejection murmur at the lower left sternal border. LUNGS: Global decrease in breath sounds. No rales, rhonchi, or wheezes at this time. ABDOMEN: Soft. Bowel sounds are normoactive without mass, guarding, rebound, or organomegaly. EXTREMITIES: Revealed no clubbing or cyanosis. There is trace edema. There is no Homans sign. SKIN: Shows no rash or excoriation. LYMPHATICS: Lymphadenopathy is not present in the supraclavicular notch nor in the cervical, inguinal, or axillary areas. NEUROLOGIC: Normal. No focal findings noted. LABORATORY DATA: There are no new laboratory studies available. IMPRESSION: 1. Status post encephalopathy. 2. Chronic obstructive pulmonary disease, stable at this time. 3. Pulmonary hypertension. 4. Elevated BNP consistent with congestive heart failure. 5. Coronary artery disease. PLAN: Continue to take the medication as started by Dr. Briggs. We will follow the patient as required. She is doing much better, although her long-term prognosis is suspect. We will continue rigorous attention to her care and follow closely as necessary. Power William MD [facility]ITALOfelia
--- NOTE | 2017-10-10 12:58 | PN ---
DATE: SUBJECTIVE: I saw her resting comfortably in bed. She slept well. She watched a football game last night. She was very vocal about the ending of the games. She knows she needs to go to Physical Therapy. She wants to go. She is feeling well. She is eating better. No shortness of breath. No chest pain. No abdominal pain. She is on Ecotrin, Lovenox, Norvasc, nystatin swish and swallow, Phenergan DM, Plavix, prednisone, now she is off the Solu-Medrol. Pulmonary said she can go to rehab. Sildenafil, Toradol, vitamin D1, Xopenex. PHYSICAL EXAMINATION VITAL SIGNS: She has a 97.6 temperature, 77 pulse, 131/72 blood pressure, 20 respiratory rate, 100% O2 sat on room air. HEENT: Head is atraumatic, normocephalic. Throat is moist. NECK: Supple. HEART: Regular rate. LUNGS: Decreased breath sounds, but clear to auscultation bilaterally. ABDOMEN: Soft. EXTREMITIES: No edema. LABORATORY DATA: 9.6 white count, 10.8 hemoglobin, 34.6 hematocrit with 170 platelets. 137 sodium, potassium is 5, BUN 58, creatinine 0.8, GFR is greater than 60, sugar is 157, calcium 9.1, total bili is 0.6, AST is 18, ALT is 26, alk phos 55. ASSESSMENT AND PLAN: She had an ultrasound of the kidneys as per the request of the family and also Renal eval. Echogenic renal parenchyma may be seen in the setting of medical renal disease. No obstructing calculus or hydronephrosis. She has been seen by Infectious Disease, Renal, Cardiology, Pulmonary, and Infectious Disease doctor. Systemic inflammatory response syndrome due to acute chronic congestive heart failure, end-stage chronic obstructive pulmonary disease, chronic hypertension. She is off antibiotics and now on prednisone. I will talk to Renal later, they gives the ok, my plan will be to work on getting her transferred to subacute rehab, that is my plan. If we can that all arranged, it will be wonderful and hope case management to help us. Nigel Wheeler DO [facility] # [id number]
--- NOTE | 2017-10-10 16:53 | CP.PCM.PN ---
Subjective - Date & Time of Evaluation Date of Evaluation: 10/10/17 Time of Evaluation: 12:45 - Subjective Subjective: Comfortable, no fevers, not in distress. Objective - Vital Signs/Intake and Output Vital Signs (last 24 hours): Temp Pulse Resp BP Pulse Ox 98.5 F 85 20 97/57 L 99 10/10/17 08:00 10/10/17 08:00 10/10/17 08:00 10/10/17 08:00 10/10/17 08:00 Intake and Output: 10/10/17 10/10/17 06:59 18:59 Intake Total 0 Output Total 0 Balance 0 - Medications Medications: Current Medications Amlodipine Besylate (Norvasc) 5 mg PO DAILY [facility] Last Admin: 10/10/17 09:18 Dose: Not Given Aspirin (Ecotrin) 81 mg PO DAILY [facility] Last Admin: 10/10/17 09:13 Dose: 81 mg Clopidogrel Bisulfate (Plavix) 75 mg PO DAILY [facility] Last Admin: 10/10/17 09:19 Dose: 75 mg Enoxaparin Sodium (Lovenox) 40 mg SC DAILY [facility] PRN Reason: Protocol Last Admin: 10/10/17 09:14 Dose: 40 mg Home Med (Home Med) 1 unit PO DAILY [facility] Last Admin: 10/10/17 09:14 Dose: 1 unit Ketorolac Tromethamine (Toradol) 30 mg IVP Q6 PRN PRN Reason: Pain, moderate (4-7) Last Admin: 10/09/17 19:50 Dose: 30 mg Levalbuterol HCl (Xopenex) 0.63 mg IH [id number] [facility] Last Admin: 10/10/17 08:41 Dose: 0.63 mg Levalbuterol HCl (Xopenex) 0.63 mg IH Q2 PRN PRN Reason: Shortness of Breath Nystatin (Nystatin Oral Susp) 5 ml PO QID [facility] Last Admin: 10/10/17 09:19 Dose: 5 ml Ondansetron HCl (Zofran Inj) 4 mg IVP Q4H PRN PRN Reason: Nausea/Vomiting Last Admin: 10/10/17 11:01 Dose: 4 mg Polyethylene Glycol (Miralax) 17 gm PO DAILY [facility] Prednisone (Prednisone Tab) 40 mg PO DAILY [facility] Last Admin: 10/10/17 09:19 Dose: 40 mg Promethazine HCl (Phenergan Syrup) 6.25 mg PO Q6H PRN PRN Reason: Cough Sildenafil Citrate (Revatio) 20 mg PO BID [facility] Last Admin: 10/10/17 09:19 Dose: 20 mg Thiamine HCl (Vitamin B1 Inj) 100 mg IM DAILY [facility] Last Admin: 10/10/17 09:19 Dose: 100 mg - Labs Labs: 10/10/17 07:00 10/10/17 07:00 PT 12.1 SECONDS (9.4-12.5) 10/02/17 16:15 INR 1.06 (0.93-1.08) 10/02/17 16:15 APTT 28.0 Seconds (25.1-36.5) 10/02/17 16:15 - Constitutional Appears: Non-toxic - Head Exam Head Exam: NORMAL INSPECTION - Respiratory Exam Respiratory Exam: Decreased Breath Sounds - Cardiovascular Exam Cardiovascular Exam: +S1, +S2 - GI/Abdominal Exam GI & Abdominal Exam: Soft. absent: Tenderness Assessment and Plan - Assessment and Plan (Free Text) Plan: Assessment S/P SIRS due to acute on chronic CHF end-stage COPD pulmonary HTN CAD dyslipidemia Plan continue to monitor off antibiotics since he is at risk for hospital-acquired infections
--- NOTE | 2017-10-10 18:28 | CP.PCM.PN ---
Subjective - Date & Time of Evaluation Date of Evaluation: 10/10/17 Time of Evaluation: 11:00 - Subjective Subjective: Follow up Nephrology Consultation: Assessment: Stable Dark urine likely due to pre-renal state. 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 Monitor Input/Output, daily weights management of COPD as per primary team. cardiology and pulmonary following supplement electrolytes as needed Glycemic control daughter had raised concerns for rhabdomyolysis, Acute kidney Injury, polyuric phase of ATN, cardiorenal syndrome and glomerulonephritis in her mother during my d/w her during this and previous hospitalization. She doesn't have any of these diagnoses based upon work up done. No further renal work up or intervention indicated will sign off and see her on as needed basis Thanks for allowing me to participate in care of your patient. Please call if any Qs. 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 has chronic SOB due to COPD. she was d/c to rehab and renal consult for decreased urine output and electrolyte abnormality. serum cr has been stable. she has poor appetite and decreased oral intake. ROS: Cardiovascular: No chest pain. Pulmonary: c/o shortness of breath but chronic Gastrointestinal: denies abdominal pain No nausea. No vomiting. Genitourinary: no urinary complaints All other negative except back pain and as mentioned in HPI. has decreased oral intake Physical Examination: General Appearance: Comfortable, in no acute respiratory distress, co-operative . elderly female Vitals reviewed and noted as below Head; Atraumatic, normocephalic ENT: no ulcers no thrush. Tongue is midline and dry. Oropharynx: no rash or ulcers. EYES: Pupils are equal, round and reactive to light accommodation. Eye muscles and extraocular movement intact. Sclera is anicteric. Neck; supple no lymphadenopathy, no thyromegaly or bruit Lungs: Normal respiratory rate/effort. Breath sounds bilateral equal and has bibasal crackles Heart: Normal rate. s1s2 normal. No rub or gallop. Extremities: no edema. No varicose veins Neurological: Patient is alert, awake and oriented to person, place and time. No focal deficit. Strength bilateral appropriate and equal Skin: Warm and dry. Normal turgor. No rash. Palpitation: Normal elasticity for age Abdomen: Abdomen is soft. Bowel sounds +. There is no abdominal tenderness, no guarding/rigidity no organomegaly Psych: normal insight and normal affect/mood MSK: no joint tenderness or swelling. Digits and nails normal, no deformity : kidney or bladder not palpable. Labs/imaging reviewed. Past medical history, past surgical history, family history, social history, allergy reviewed and noted as below Family hx: no hx of CKD. Rest non-contributory CT abdomen: normal kidneys, small cyst echo: IVC collapses >50% UA trace protein no blood renal sono: b/l echogenic kidneys Objective - Vital Signs/Intake and Output Vital Signs (last 24 hours): Temp Pulse Resp BP Pulse Ox 98.5 F 85 20 97/57 L 99 10/10/17 08:00 10/10/17 08:00 10/10/17 08:00 10/10/17 08:00 10/10/17 08:00 Intake and Output: 10/10/17 10/10/17 06:59 18:59 Intake Total 0 Output Total 0 Balance 0 - Medications Medications: Current Medications Amlodipine Besylate (Norvasc) 5 mg PO DAILY [facility] Last Admin: 10/10/17 09:18 Dose: Not Given Aspirin (Ecotrin) 81 mg PO DAILY [facility] Last Admin: 10/10/17 09:13 Dose: 81 mg Clopidogrel Bisulfate (Plavix) 75 mg PO DAILY [facility] Last Admin: 10/10/17 09:19 Dose: 75 mg Enoxaparin Sodium (Lovenox) 40 mg SC DAILY [facility] PRN Reason: Protocol Last Admin: 10/10/17 09:14 Dose: 40 mg Home Med (Home Med) 1 unit PO DAILY [facility] Last Admin: 10/10/17 09:14 Dose: 1 unit Ketorolac Tromethamine (Toradol) 30 mg IVP Q6 PRN PRN Reason: Pain, moderate (4-7) Last Admin: 10/09/17 19:50 Dose: 30 mg Levalbuterol HCl (Xopenex) 0.63 mg IH [id number] [facility] Last Admin: 10/10/17 13:27 Dose: 0.63 mg Levalbuterol HCl (Xopenex) 0.63 mg IH Q2 PRN PRN Reason: Shortness of Breath Nystatin (Nystatin Oral Susp) 5 ml PO 5XD [facility] Ondansetron HCl (Zofran Inj) 4 mg IVP Q4H PRN PRN Reason: Nausea/Vomiting Last Admin: 10/10/17 11:01 Dose: 4 mg Polyethylene Glycol (Miralax) 17 gm PO DAILY [facility] Prednisone (Prednisone Tab) 40 mg PO DAILY [facility] Last Admin: 10/10/17 09:19 Dose: 40 mg Promethazine HCl (Phenergan Syrup) 6.25 mg PO Q6H PRN PRN Reason: Cough Sildenafil Citrate (Revatio) 20 mg PO BID [facility] Last Admin: 10/10/17 09:19 Dose: 20 mg Thiamine HCl (Vitamin B1 Inj) 100 mg IM DAILY [facility] Last Admin: 10/10/17 09:19 Dose: 100 mg - Labs Labs: 10/10/17 07:00 10/10/17 07:00 PT 12.1 SECONDS (9.4-12.5) 10/02/17 16:15 INR 1.06 (0.93-1.08) 10/02/17 16:15 APTT 28.0 Seconds (25.1-36.5) 10/02/17 16:15
--- NOTE | 2017-10-10 19:14 | PN ---
DATE: 10/10/2017 CARDIOLOGY FOLLOWUP NOTE SUBJECTIVE: The patient's breathing is stable. She has developed nausea and vomiting for the past 24 hours. OBJECTIVE: VITAL SIGNS: Blood pressure is 97/57, heart rate in the 80s. NECK: Negative JVD. LUNGS: Without rales. HEART: S1 and S2. EXTREMITIES: Without edema. LABORATORIES: Hemoglobin 10.8, BUN and creatinine are 58 and 0.8. IMPRESSION: 1. Resolution of congestive heart failure. 2. Prerenal azotemia which is better. 3. Severe chronic obstructive pulmonary disease. 4. Pulmonary hypertension. 5. Nausea and vomiting. Given these findings, her CHF symptoms are under control. Her breathing has certainly stabilized. Harrison Echavarria MD
[2017-10-11] MEDS: Levalbuterol 0.63 MG/3 ML Inhal Soln UD IH SCH ×4 (02:36→20:28)
[2017-10-11] MEDS ORDERED: Nystatin 100,000 Units/ml Oral Susp 5 ml UD PO SCH (06:00)
[2017-10-11] MEDS: Nystatin 100,000 Units/ml Oral Susp 5 ml UD PO SCH ×4 (06:27→17:17)
[2017-10-11 08:05] LABS: HEMOGLOBIN 10.7 g/dL (12.0-16.0); MEAN CELL VOLUME 95.8 fl (80.0-105.0); MEAN CORPUSCULAR HEMOGLOBIN 30.1 pg (25.0-35.0); MEAN CORPUSCULAR HGB CONC 31.4 g/dl (31.0-37.0); MEAN PLATELET VOLUME 11.2 fl (7.0-11.0); RBC 3.56 10^6/uL (3.5-6.1); RED CELL DISTRIBUTION WIDTH 13.8 % (11.5-14.5); WHITE BLOOD COUNT 9.3 10^3/ul (4.5-11.0)
--- NOTE | 2017-10-11 08:45 | PN ---
DATE: 10/11/2017 PULMONARY NOTE SUBJECTIVE: The patient appears comfortable this morning. She is not short of breath at rest. She appears much less weak. PHYSICAL EXAMINATION: VITAL SIGNS: (Last noted in the computer): Temperature is 97.3, pulse 92, respirations 18/20, blood pressure 114/61. Oxygen saturation on nasal cannula is 95-97%. HEENT: Normocephalic, atraumatic. NECK: No JVD. CARDIOVASCULAR: Systolic ejection murmur at the lower left sternal border. No S3 gallop. LUNGS: Clear bilaterally. EXTREMITIES: Less edema. No cyanosis, no clubbing. Calves are nontender to palpation. GI: Abdomen is soft, nontender and nondistended. Bowel sounds are positive. SKIN: No acute rash. NEUROLOGIC: Exam limited at the present time. IMPRESSION: 1. Encephalopathy, weakness - improving. 2. End-stage chronic obstructive pulmonary disease. 3. Severe pulmonary hypertension. 4. Increased B-type natriuretic peptide, rule out congestive heart failure. 5. Coronary artery disease. PLAN: The patient appears very comfortable this morning. She is not short of breath at rest. She is much stronger - compared to last week. She does state to feeling much better overall. On physical exam, her lungs remain clear. In addition, there is no significant alveolar-arterial gradient. I will continue with the current nebulizer treatments, and oral steroids (changed yesterday) for now. The patient also remains on the Revatio - for her pulmonary hypertension. Inputs by Cardiology, Infectious Disease, and Renal are noted. Clinical status of the patient is significantly improved - compared to the initial presentation. However, unfortunately, the future status/prognosis for this patient does remain poor. I will discuss the above with Dr. Wheeler. Evgeny Briggs MD [facility]
[2017-10-11 09:14] LABS: BLOOD UREA NITROGEN 45 mg/dL (7-21); GFR AFRICAN-AMERICAN > 60; GFR NON-AFRICAN AMERICAN > 60
[2017-10-11 09:15] LABS: ALB/GLOB RATIO 1.2 (1.1-1.8); ALBUMIN 2.7 g/dL (3.0-4.8); ALT/SGPT 31 U/L (7-56); AST/SGOT 15 U/L (14-36)
[2017-10-11] MEDS: POLYETHYLENE GLYCOL 3350 17 GM/Dose PACKET PO SCH (10:36)
[2017-10-11] MEDS: Sildenafil 20 MG TAB PO SCH ×2 (10:38→17:17)
[2017-10-11] MEDS: DEXILANT 60 MG PO SCH (10:38)
[2017-10-11] MEDS: Enoxaparin 40 mg Syringe SC SCH (10:40)
[2017-10-11] MEDS: Thiamine 100 mg/ml Inj IM SCH (10:45)
--- NOTE | 2017-10-11 20:27 | PN ---
CARDIOLOGY FOLLOWUP DATE: 10/11/2017 SUBJECTIVE: The patient appears comfortable in a chair and talking to her family. OBJECTIVE: VITAL SIGNS: Blood pressure varies from 123 to 173 systolic and heart rate in the 80s. Physical exam is unchanged. LABORATORY DATA: Hemoglobin is 10.7. Chemistries are unchanged. IMPRESSION 1. Severe chronic obstructive pulmonary disease. 2. Stable angina. 3. Coronary artery disease. 4. Pulmonary hypertension. PLAN: Given these findings, the patient's cardiopulmonary status is stable for transfer to subacute rehab. We will sign off the case today. Harrison Echavarria MD
[2017-10-11] MEDS: Levalbuterol 0.63 MG/3 ML Inhal Soln UD IH PRN (23:58)
--- NOTE | 2017-10-12 00:03 | PN ---
DATE: 10/11/2017 SUBJECTIVE: The patient is in bed, in no acute distress, nontoxic. PHYSICAL EXAMINATION: VITAL SIGNS: Temperature is 97, blood pressure is 170/60, respiratory rate of 20, heart rate of 92. HEENT: Unremarkable. NECK: Supple. LUNGS: Decreased breath sounds. HEART: Normal S1 and S2. ABDOMEN: Soft and nontender. LABORATORY DATA: Reveals white count of 9.3, hemoglobin of 10, and platelets of 150. Coagulation is noted and the chemistries reveals BUN of 45 and creatinine of 0.7. and procalcitonin 0.07. Urinalysis is noted and the patient's urinalysis from 10/09/2017 were unremarkable. Serology is negative. The patient has had gram positive cocci in the urine. Blood cultures had no growth. There is between 10,000 to 50,000 gram positive cocci and Dr. Harrison Echavarria's note is reviewed and Dr. Briggs's note is reviewed. ASSESSMENT AND PLAN: This is an 82-year-old female seen early this morning with systemic inflammatory response syndrome due to acute on chronic congestive heart failure and end stage chronic obstructive pulmonary disease, pulmonary hypertension, coronary artery disease. dyslipidemia, off of antibiotics. The patient's low count gram positive cocci in the phase of normal urinalysis does not require antibiotic therapy. No further antibiotics needed at this time. The patient is at risk for developing nosocomial infection. Jose Eastman MD
[2017-10-12] MEDS: Levalbuterol 0.63 MG/3 ML Inhal Soln UD IH SCH ×4 (01:14→20:06)
--- NOTE | 2017-10-12 01:37 | DS ---
HISTORY OF PRESENT ILLNESS: I had seen her in bed this morning. She is actually quite comfortable. She had some blood in her mouth. She is getting nystatin for the thrush, and ENT came and said it was thrush, not much also to do with that. Also she was seen by Pulmonary, and they said she can go. Also seen by Infectious Disease, he said that she can go. Renal said that she can go. Infectious Disease said she can go so she has had a good point to go back to subacute rehab. PHYSICAL EXAMINATION: VITAL SIGNS: She has 97.5 temperature, 83 pulse, 123/67 blood pressure, 20 respiratory rate, 99% O2 sat on 2 liters. HEENT: Head is atraumatic and normocephalic with throat is mildly dry, but there is some redness but it is better with Nystatin. She tells me it is getting better with the nystatin. HEART: Regular rate. LUNGS: Decreased breath sounds, but clear. She has severe COPD. Oxygen saturations 99. ABDOMEN: Soft and nontender. Positive bowel sounds. EXTREMITIES: Have no edema. MEDICATIONS: She is on Ecotrin, Lovenox, MiraLax, Norvasc, nystatin, Phenergan DM, Plavix, prednisone, Revatio, Toradol, vitamin B1, Xopenex, Zofran. She will be in the prednisone 40 mg for three days, and 30 mg for three days, and 20 mg for three days, and 10 mg for three days, and stop. LABORATORY DATA: She has 9.3 white count, 10.7 hemoglobin, 34.1 hematocrit, 150 platelets. She has 137 sodium, potassium is 5, BUN 45, creatinine 0.7 better, GFR is greater than 60. Sugar is 86. Calcium is 9. Total bilirubin is 0.6. AST is 15, ALT is 31, alkaline phosphatase is 67, total protein is 5. ASSESSMENT AND PLAN: Overall, she is doing much better than when she came in. She was being seen by Pulmonary, Renal, Infectious Disease, Cardiology, and were on the same page that she could be discharged to subacute rehab. Genoveva Wheeler DO [facility] # [id number]
--- NOTE | 2017-10-12 03:10 | DS ---
HISTORY OF PRESENT ILLNESS: She is doing quite well today, the best I have seen her. I discussed with Pulmonary, Renal, Infectious Disease, and Cardiology. They all think she is ready to go to subacute rehab. She is improved greatly. We had first thought it might have been UTI, but Infectious Disease doctor said no, later on the morning that was not and any antibiotics, which is very good. She is alert. On top of things, the strong as I have seen her. She is getting out of bed start the Physical Therapy at a subacute rehab. She will go back to the subacute rehab where she was. I think she will be very well. PHYSICAL EXAMINATION: VITAL SIGNS: She has 97.5 temperature, 83 pulse, 123/67 blood pressure, 20 respiratory rate, 99% O2 sat on 3 L nasal cannula. HEENT: Head is atraumatic and normocephalic. HEART: Regular rate. LUNGS: Actually very clear today both sides, moving more air. ABDOMEN: Soft and nontender. EXTREMITIES: No edema. MEDICATIONS: She is on Ecotrin, Lovenox, MiraLax, Norvasc, nystatin, Phenergan DM, Plavix, prednisone 40 for three days and 30 for three days and 20 for three days and 10 for three days, Revatio, Toradol, vitamin B1, Xopenex, and Zofran. LABORATORY DATA: She has a 9.3 white count, 10.7 hemoglobin, 34.1 hematocrit with 150 platelets. She has 137 sodium, potassium 5, BUN at its best 45, creatinine 0.7. GFR is greater than 60, sugar is 86, calcium is 9, total bilirubin is 0.6. AST is 15, ALT is 31, alkaline phosphatase is 67, total protein is fine. I am very happy with her, she did very well. ASSESSMENT AND PLAN: I discussed this with all the consults, we all agree that she is in a best be seen her. She will be discharge today to subacute rehab. She had multiple problems; endstage chronic obstructive pulmonary disease, pulmonary hypertension, coronary artery disease, systemic inflammatory response syndrome, urinary tract infection, congestive heart failure. Hopefully, she will do very well. Nigel Wheeler DO [facility]
[2017-10-12 08:16] LABS: HEMOGLOBIN 11.2 g/dL (12.0-16.0); MEAN CELL VOLUME 93.5 fl (80.0-105.0); MEAN CORPUSCULAR HEMOGLOBIN 30.3 pg (25.0-35.0); MEAN CORPUSCULAR HGB CONC 32.4 g/dl (31.0-37.0); MEAN PLATELET VOLUME 10.9 fl (7.0-11.0); RBC 3.7 10^6/uL (3.5-6.1); RED CELL DISTRIBUTION WIDTH 13.7 % (11.5-14.5); WHITE BLOOD COUNT 9.3 10^3/ul (4.5-11.0)
[2017-10-12 08:34] LABS: ALBUMIN 2.9 g/dL (3.0-4.8); ALT/SGPT 34 U/L (7-56); AST/SGOT 16 U/L (14-36); BLOOD UREA NITROGEN 46 mg/dL (7-21); GFR AFRICAN-AMERICAN > 60; GFR NON-AFRICAN AMERICAN > 60
[2017-10-12 08:35] LABS: ALB/GLOB RATIO 1.3 (1.1-1.8)
--- NOTE | 2017-10-12 10:07 | PN ---
DATE: PULMONARY NOTE SUBJECTIVE: The patient appears very comfortable this morning. She is not short of breath at rest. She is awake and alert, and much stronger appearing. OBJECTIVE: VITALS (last noted in the computer): Temperature is 97.5, pulse 73, respirations 18/20, blood pressure 113/66. Oxygen saturation on nasal cannula is 100%. HEENT: Normocephalic, atraumatic. No JVD. CARDIOVASCULAR: Systolic ejection murmur at the lower left sternal border. No S3 gallop. LUNGS: Clear bilaterally. EXTREMITIES: Less edema. No cyanosis, no clubbing. Calves are nontender to palpation. GI: Abdomen is soft, nontender, and nondistended. Bowel sounds are positive. SKIN: No acute rash. NEUROLOGIC: Limited at the present time. IMPRESSION: 1. Encephalopathy, weakness - much improved. 2. End-stage chronic obstructive pulmonary disease. 3. Severe pulmonary hypertension. 4. Increased B-type natriuretic peptide, rule out congestive heart failure. 5. Coronary artery disease. PLAN: The patient appears very comfortable this morning. She is not short of breath at rest. She is certainly much stronger - compared to last week. She states to feeling much better overall. On physical exam, her lungs remain clear. In addition, the oxygen saturation on nasal cannula is now 100%. I will continue the current nebulizer treatments and decrease the oral steroids this morning. I will also continue the low dose revatio. Inputs by Renal, cardiology and infectious Disease are noted. Clinical status of the patient is significantly improved - compared to the initial presentation. However, again, unfortunately, the future status/prognosis for this deisy patient remains poor. All are aware. I will discuss the above with Dr. Wheeler. Evgeny Briggs MD [facility]
[2017-10-12] MEDS: Thiamine 100 mg/ml Inj IM SCH (10:11)
[2017-10-12] MEDS: DEXILANT 60 MG PO SCH (10:12)
[2017-10-12] MEDS: Sildenafil 20 MG TAB PO SCH ×2 (10:14→18:29)
[2017-10-12] MEDS: Nystatin 100,000 Units/ml Oral Susp 5 ml UD PO SCH ×4 (10:15→22:22)
[2017-10-12] MEDS: POLYETHYLENE GLYCOL 3350 17 GM/Dose PACKET PO SCH (10:15)
[2017-10-12] MEDS: Enoxaparin 40 mg Syringe SC SCH (10:17)
--- NOTE | 2017-10-12 19:43 | MRI ---
EXAM: MR Lumbar Spine Without Intravenous Contrast EXAM DATE/TIME: 10/12/2017 12:18 PM CLINICAL HISTORY: The patient age is 82 years old and is female; Pain; Low back pain; Patient HX: Fell 2x Facility exam id and description: Mri spls spinal canal lumbar w/o cont TECHNIQUE: Magnetic resonance images of the lumbar spine without intravenous contrast in multiple planes. COMPARISON: No relevant prior studies available. FINDINGS: Vertebrae: There is a moderate decrease in vertebral height at T12 vertebral level, with retropulsion. A fracture line is identified within the vertebral body extending to the dorsal cortex. Acute edema is identified within the bone marrow at this level, which extends into the bilateral pedicles. These findings are consistent with an acute burst fracture. The mild retropulsion at the T12 vertebral level causes mild narrowing of the thecal sac. The lumbar vertebral bodies are normal in height, without abnormal subluxation. Spinal cord: The distal end of the conus medullaris ends at L1-2, normal in position. Soft tissues: A moderate size hiatal hernia is partially visualized. T2 hyperintense renal cysts are visualized bilaterally, the largest at the upper pole the left kidney measuring 2.3 cm in diameter. DISCS/SPINAL CANAL/NEURAL FORAMINA: L1-L2: There is no significant narrowing of the thecal sac or neural foramina. L2-L3: There is no significant narrowing of the thecal sac. Mild bilateral neural foraminal narrowing is identified. There is minimal disc bulging. L3-L4: There is a small broad-based disc bulge, without significant narrowing of the thecal sac. Mild bilateral neural foraminal narrowing is identified. L4-L5: There is mild facet arthropathy. Minimal disc bulging is visualized, without significant narrowing of the thecal sac. Mild bilateral neural foramina is identified. There is narrowing of both lateral recesses. L5-S1: There is mild facet arthropathy with minimal disc bulging causing effacement of the anterior epidural fat, without significant narrowing of the thecal sac. There is no significant neural foraminal narrowing. Other findings: There is a mild degenerative decrease in T2 signal intensity of multiple lumbar and visualized lower thoracic discs. IMPRESSION: 1. There is a moderate decrease in vertebral height at T12 vertebral level, with retropulsion. MRI findings are consistent with an acute burst fracture. 2. The mild retropulsion at the T12 vertebral level causes mild narrowing of the thecal sac. 3. Mild degenerative changes are identified within the lumbar spine, as described above. 4. Neural foraminal narrowing is identified from L2-3 through L4-5, as detailed above. There is narrowing of the lateral recesses bilaterally at L4-5. 5. Additional findings described above.
--- NOTE | 2017-10-12 20:57 | PN ---
DATE: 10/12/2017 SUBJECTIVE: The patient is comfortable in bed. Has no shortness of breath, no chest pain. OBJECTIVE: VITAL SIGNS: On physical exam, blood pressure is 130/75, the heart rate is in the 60s. NECK: Negative JVD. LUNGS: Without rales. HEART: With S1, S2. EXTREMITIES: Without edema. LABORATORIES: Hemoglobin is 11.2. Chemistries, BUN and creatinine are 46/0.8. IMPRESSION: 1. Severe chronic obstructive pulmonary disease. 2. Resolution of congestive heart failure. 3. Prerenal azotemia which is stable. 4. Stable angina. 5. Coronary artery disease. 6. Recurrent back pain. The patient has MRI today. Afterwards, the patient is scheduled for transfer to subacute rehab. Harrison Echavarria MD
[2017-10-13] MEDS: Levalbuterol 0.63 MG/3 ML Inhal Soln UD IH PRN
[2017-10-13] MEDS: Levalbuterol 0.63 MG/3 ML Inhal Soln UD IH SCH ×4 (01:25→20:32)
--- NOTE | 2017-10-13 03:06 | PN ---
DATE: 10/12/2017 SUBJECTIVE: The patient is in bed, in no acute distress, nontoxic. PHYSICAL EXAMINATION: VITAL SIGNS: Temperature is 98, blood pressure is 105/50, and respiratory rate 16. HEENT: Unremarkable. NECK: Supple. LUNGS: Decreased breath sounds. HEART: Normal S1 and S2. ABDOMEN: Soft, nontender. The patient had an MRI of the lumbar spine today, which is reported as moderate decrease in vertebral height and degenerative changes in retropulsion of the T12 and vertebra causing narrowing of the thecal sac. ASSESSMENT AND PLAN: This is an 82-year-old female, seen earlier this morning with systemic inflammatory response syndrome due to acute on chronic congestive heart failure, end-stage chronic obstructive lung disease, pulmonary hypertension, coronary artery disease, dyslipidemia, and off antibiotics. The patient is at risk for developing nosocomial infection. We will follow with you. Jose Eastman MD
--- NOTE | 2017-10-13 04:29 | DS ---
SUBJECTIVE: I saw her resting comfortably this morning in bed. Waiting for authorization from her insurance company for her to be discharged today. She is comfortable this morning. She slept fairly well. Yesterday, she was in good spirits. No chest pain or shortness of breath or abdominal pain. She is eating. She wants to walk. MEDICATIONS: She is on Ecotrin, Lovenox, MiraLax, Norvasc, nystatin, Phenergan, Plavix, prednisone, Revatio, Toradol, vitamin B1, Xopenex and Zofran. PHYSICAL EXAMINATION VITAL SIGNS: 97.5 temperature, 73 pulse, 113/66 blood pressure, 20 respiratory rate, 100% O2 sat on 2 liters. HEENT: Head is atraumatic, normocephalic. HEART: Regular rate. LUNGS: Decreased breath sounds but clear. ABDOMEN: Soft, morbidly obese. EXTREMITIES: No edema. LABORATORY DATA: She has a 9.3 white count, 10.7 hemoglobin, 150 platelets. 137 sodium, potassium is 5, BUN is 45, creatinine 0.7, GFR is greater than 60, sugar is 86, calcium is 9, total bili is 0.6, AST is 15, ALT is 31 and alkaline phosphatase Overall, I think she is doing quite well. I am hoping that she can be discharged today, authorizations gotten by her insurance company to go to rehab for further Physical Therapy to get a walking again. She had SIRS, acute on chronic congestive heart failure, end-stage chronic obstructive pulmonary disease, pulmonary hypertension, coronary artery disease and high cholesterol. Hopefully, she will do very well and will be discharged today to the subacute rehab when get authorization from the insurance company and she knows this. Nigel Wheeler DO [facility]
[2017-10-13] MEDS: Nystatin 100,000 Units/ml Oral Susp 5 ml UD PO SCH ×5 (07:02→17:20)
--- NOTE | 2017-10-13 09:29 | PN ---
DATE: 10/13/2017 PULMONARY NOTE SUBJECTIVE: The patient appears very comfortable this morning. She is not short of breath at rest. PHYSICAL EXAMINATION: VITAL SIGNS: (Last noted in the computer): Temperature is 98.0, pulse 92, respirations 18/20, blood pressure 105/51. Oxygen saturation on nasal cannula is 96%. HEENT: Normocephalic, atraumatic. NECK: No JVD. CARDIOVASCULAR: Systolic ejection murmur at the lower left sternal border. No S3 gallop. LUNGS: Clear bilaterally. EXTREMITIES: Less edema. No cyanosis, no clubbing. Calves are nontender to palpation. GI: Abdomen is soft, nontender and nondistended. Bowel sounds are positive. SKIN: No acute rash. NEUROLOGIC: Exam limited at the present time. IMPRESSION: 1. Encephalopathy, weakness - much improved. 2. End-stage chronic obstructive pulmonary disease. 3. Severe pulmonary hypertension. 4. Increased B-type nature peptide, rule out congestive heart failure. 5. Coronary artery disease. PLAN: The patient appears very comfortable this morning. She is not short of breath at rest. She is much less weak. She does state to feeling much much better overall. On physical exam, her lungs remain clear. Oxygen saturation on nasal cannula is between 96-100%. I will continue with the current nebulizer treatments and oral steroids (decreased yesterday) for now. The patient also remains on her Revatio - for her pulmonary hypertension. Inputs by Cardiology and Infectious Disease are noted. Clinical status of the patient is significantly improved - compared to the initial presentation. However, again, unfortunately, the overall status/prognosis for this patient remains poor. All are aware. I did discuss the above with Dr. Wheeler. Evgeny Briggs MD [facility]
[2017-10-13] MEDS: Sildenafil 20 MG TAB PO SCH ×2 (09:59→17:26)
[2017-10-13] MEDS: POLYETHYLENE GLYCOL 3350 17 GM/Dose PACKET PO SCH ×2 (10:00→10:01)
[2017-10-13] MEDS: Enoxaparin 40 mg Syringe SC SCH (10:00)
[2017-10-13] MEDS: Thiamine 100 mg/ml Inj IM SCH ×2 (10:01→10:18)
--- NOTE | 2017-10-13 10:05 | PN ---
DATE: 10/13/2017 SUBJECTIVE: The patient still complains of lower back pain. No shortness of breath. No chest pain. OBJECTIVE: VITAL SIGNS: Blood pressure is 121/53, heart rate is in the 70s. NECK: Negative JVD. LUNGS: Without rales. HEART: S1, S2. EXTREMITIES: Without edema. LABORATORY DATA: Hemoglobin is 11.2. MRI, abnormalities in the spine are noted. IMPRESSION: 1. Debilitating lower back pain. 2. Stable angina. 3. Coronary artery disease. 4. Severe chronic obstructive pulmonary disease. 5. Pulmonary hypertension. PLAN: Given these findings, the patient has significant spinal disease in L4-L5. The patient is currently on therapy. Potential for percutaneous intervention is considered. Her cardiac and pulmonary status although severe in nature is stable at this time. Harrison Echavarria MD
[2017-10-13] MEDS: DEXILANT 60 MG PO SCH (10:13)
--- NOTE | 2017-10-13 16:30 | CP.PCM.CON ---
History of Present Illness - History of Present Illness History of Present Illness: SPINE Pt seen and examined. Full consult dictated. No surgical intervention indicated at this time. Options include mobilization with brace as pain allows vs vertebroplasty. Past Patient History - Infectious Disease Hx of Infectious Diseases: None - Tetanus Immunizations Tetanus Immunization: Unknown - Past Medical History & Family History Past Medical History?: Yes - Past Social History Smoking Status: Former Smoker - CARDIAC Hx Cardiac Disorders: Yes Hx Congestive Heart Failure: Yes Hx Hypertension: Yes - PULMONARY Hx Chronic Obstructive Pulmonary Disease (COPD): Yes - NEUROLOGICAL Hx Neurological Disorder: Yes Hx Dizziness: Yes - HEENT Hx HEENT Problems: Yes Hx Cataracts: Yes - RENAL Hx Chronic Kidney Disease: No - ENDOCRINE/METABOLIC Hx Endocrine Disorders: No - HEMATOLOGICAL/ONCOLOGICAL Hx Cancer: No - INTEGUMENTARY Hx Dermatological Problems: No - MUSCULOSKELETAL/RHEUMATOLOGICAL Hx Musculoskeletal Disorders: Yes Hx Falls: Yes Hx Fractures: Yes (L wrist) Hx Herniated Disk: Yes Hx Osteoarthritis: Yes Hx Osteoporosis: Yes Hx Spinal Stenosis: Yes - GASTROINTESTINAL Hx Gastrointestinal Disorders: Yes (exploratry lap with 2 inches of bowel resected) Hx Diverticulitis: Yes Hx Gall Bladder Disease: Yes (CHLOECYSTECTOMY) - GENITOURINARY/GYNECOLOGICAL Hx Genitourinary Disorders: Yes Hx Incontinence: Yes Hx Urinary Tract Infection: Yes - PSYCHIATRIC Hx Psychophysiologic Disorder: No Hx Emotional Abuse: No Hx Physical Abuse: No Hx Substance Use: No - SURGICAL HISTORY Hx Mastectomy: No - ANESTHESIA Hx Anesthesia: Yes Hx Anesthesia Reactions: No Hx Malignant Hyperthermia: No Meds Allergies/Adverse Reactions: Allergies Allergy/AdvReac Type Severity Reaction Status Date / Time codeine AdvReac VOMITING Verified 10/02/17 16:13 hydromorphone HCl AdvReac VOMITING Verified 10/02/17 16:13 [From Dilaudid] MYOCINS AdvReac VOMITING Uncoded 10/02/17 16:13 - Medications Medications: Current Medications Amlodipine Besylate (Norvasc) 5 mg PO DAILY [facility] Last Admin: 10/13/17 09:59 Dose: 5 mg Aspirin (Ecotrin) 81 mg PO DAILY [facility] Last Admin: 10/13/17 09:59 Dose: 81 mg Clopidogrel Bisulfate (Plavix) 75 mg PO DAILY [facility] Last Admin: 10/13/17 09:59 Dose: 75 mg Enoxaparin Sodium (Lovenox) 40 mg SC DAILY [facility] PRN Reason: Protocol Last Admin: 10/13/17 10:00 Dose: 40 mg Home Med (Home Med) 1 unit PO DAILY [facility] Last Admin: 10/13/17 10:13 Dose: 1 unit Ketorolac Tromethamine (Toradol) 30 mg IVP Q6 PRN PRN Reason: Pain, moderate (4-7) Last Admin: 10/12/17 12:34 Dose: 30 mg Levalbuterol HCl (Xopenex) 0.63 mg IH [id number] [facility] Last Admin: 10/13/17 14:13 Dose: 0.63 mg Levalbuterol HCl (Xopenex) 0.63 mg IH Q2 PRN PRN Reason: Shortness of Breath Last Admin: 10/13/17 00:00 Dose: 0.63 mg Nystatin (Nystatin Oral Susp) 5 ml PO 5XD [facility] Last Admin: 10/13/17 14:26 Dose: 5 ml Ondansetron HCl (Zofran Inj) 4 mg IVP Q4H PRN PRN Reason: Nausea/Vomiting Last Admin: 10/12/17 19:06 Dose: 4 mg Polyethylene Glycol (Miralax) 17 gm PO DAILY [facility] Last Admin: 10/13/17 10:01 Dose: 17 gm Prednisone (Prednisone Tab) 30 mg PO DAILY [facility] Last Admin: 10/13/17 09:59 Dose: 30 mg Promethazine HCl (Phenergan Syrup) 6.25 mg PO Q6H PRN PRN Reason: Cough Sildenafil Citrate (Revatio) 20 mg PO BID [facility] Last Admin: 10/13/17 09:59 Dose: 20 mg Thiamine HCl (Vitamin B1 Inj) 100 mg IM DAILY [facility] Last Admin: 10/13/17 10:18 Dose: Not Given Results - Vital Signs Recent Vital Signs: Last Vital Signs Temp 98.6 F 10/13/17 08:00 Pulse 78 10/13/17 08:00 Resp 18 10/13/17 08:00 BP 121/53 L 10/13/17 09:59 Pulse Ox 99 10/13/17 11:30 - Labs Result Diagrams: 10/12/17 08:00 10/12/17 08:00
[2017-10-13] MEDS ORDERED: Alum-Mag Hydrox-Simethicone Susp (30 mL) PO PRN (17:12)
--- NOTE | 2017-10-14 00:56 | PN ---
DATE: 10/14/2017 SUBJECTIVE: The patient seen earlier this morning, in no acute distress, nontoxic. PHYSICAL EXAMINATION: VITAL SIGNS: Temperature is 99, blood pressure is 99/50, respiratory rate of 20, heart rate of 96. HEENT: Unremarkable. NECK: Supple. LUNGS: Have decreased breath sounds. HEART: Normal S1 and S2. ABDOMEN: Soft and nontender. LABORATORY DATA: Reveals a white count of 9, hemoglobin of 11, BUN of 46, and creatinine of 0.8. Blood cultures are negative. ASSESSMENT AND PLAN: This is an 82-year-old female seen earlier this morning, admitted with systemic inflammatory response syndrome due to acute on chronic congestive heart failure, end-stage obstructive lung disease, pulmonary hypertension, coronary artery disease, dyslipidemia, and currently off of antibiotics and the patient had a lumbar spine MRI is also reviewed. Full term prognosis is quite poor for this patient with multiple aortic pathology. Jose Eastman MD
[2017-10-14] MEDS: Levalbuterol 0.63 MG/3 ML Inhal Soln UD IH SCH ×3 (01:30→21:03)
--- NOTE | 2017-10-14 02:57 | CON ---
DATE: 10/13/2017 TIME: 4:45 p.m. CHIEF COMPLAINT/HISTORY OF PRESENT ILLNESS: This is an 82-year-old female who was evaluated for a T12 compression fracture. Ms. Blackburn was admitted with shortness of breath, confusion, and fatigue. She has a complex past medical history. She has end-stage COPD, on home oxygen along with severe pulmonary hypertension. She has coronary artery disease, which has improved with stent intervention. She fell approximately four weeks ago. Since that time, she has had severe lower thoracic, upper lumbar pain. She has a history of cervical issues, but the pain in her lower back is new and severe. She is not able to sit or stand for any length of time. She would like something done considering the pain if possible. Her MRI demonstrates an acute linear compression fracture of the superior end-plate of T12. The remainder of her visualized lumbar vertebral bodies are fairly normal. Edema is present. No significant retropulsion is appreciated. Ms. Blackburn presents a somewhat difficult clinical situation. Clinically and anatomically, she would benefit from the kyphoplasty with significant improvement in her pain. However, her pulmonary and coronary artery disease present an issue. The procedure will be done with light sedation only. She will be placed initially on her stomach and her O2 sats monitored before beginning the procedure. If she does not tolerate a prone position, the procedure will be aborted. The risks, benefits, and alternatives were discussed with several family members and treating physicians. Harrison Blackburn MD
--- NOTE | 2017-10-14 03:27 | CON ---
DATE OF CONSULT: 10/13/2017 REASON FOR CONSULTATION: Fracture of T12. HISTORY OF PRESENT ILLNESS: The patient is an 82-year-old young lady, who had three recent falls going from 09/13 to the last one on 09/21. These occurred at home. She states that after the last fall which occurred in her kitchen, she had onset of severe pain in her back. Then, she was hospitalized and transferred to rehab place, but was noted to have congestive heart failure and was returned to the hospital. She states she has been on bedrest ever since. She reportedly has developed a bedsore. She states she has never lost ability to move her lower extremities. She denies any loss of bowel or bladder control, although she has a Saldivar catheter in at this time. PAST MEDICAL HISTORY: Significant. She has coronary artery disease with two stents; she has COPD, and is on oxygen at home. She has emphysema, pulmonary hypertension, moderate tricuspid regurgitation, GERD. MEDICATIONS: Listed on the chart. ALLERGIES: SHE HAS SIDE EFFECTS OF NAUSEA AND VOMITING WITH CODEINE OR DILAUDID BASED MEDICATIONS. PAST SURGICAL HISTORY: Significant for cholecystectomy, appendectomy, partial small bowel resection, ovarian cyst excision, inguinal hernia repair, all done in the past, as well as placement of stents for coronary artery disease. SOCIAL HISTORY: She was a pack a day smoker for 50 years or so. PHYSICAL EXAMINATION: She does have too much pain to even logroll and move about. She is able to move both lower extremities actively. Her sensation is intact to light touch. She has good motor strength distally. No clonus or Babinski present. Distal pulses are intact. LABORATORY DATA: I reviewed her MRI which shows a fracture to superior endplate of T12, it is a burst type fracture and that there is a posterior extension into the canal just abutting the spinal cord. There appears to be some edema going into the pedicles as well bilaterally. Overall alignment looks fine. There is no significant wedging to the fracture and again it is compared to the vertebral body height above and below is anywhere from 20%, maybe a third compressed. IMPRESSION: Stable burst fracture of T12. This patient remains neurologically intact, so this could be treated with gradual mobilization as pain allows with a lightweight extension brace. However, it has now been a little over three weeks from her most recent fall and she states she has been unable to get out of bed or even logroll significantly secondary to the pain. Obviously, that presents a lot of other issues given her overall condition in terms of prolonged bedrest with her cardiopulmonary status. Evidently, she has been seen by Dr. Blackburn and recommended to have a vertebroplasty done. Obviously, some caution needs to be observed given the fact there is bony posterior disruption which increases the risk of cement leaking backwards causing thermal injury to the cord, but presuming that not too much cement would be injected, just enough to stabilize things, it may allow earlier mobilization. Obviously, there is also risk involved of transfer stresses to the vertebral bodies above and below; but at this point, given her overall condition, trying to be out mobilize her earlier rather than later may be a better off. They said that their blending technician, Dr. Echavarria, has some concerns about this, so if the option is to not proceed with it, then again I would get an extension brace and just mobilize her. I have her wear that whenever up out of bed and have her be mobilized as her pain allows. The natural history is that over the course of the next month or two, the bone should start to heal on its own and her pain become much less, but again it is just a matter of balancing her pain along with her cardiopulmonary condition with prolonged bedrest. Thank you for allowing me to participate in the care of your patient. Jostin Triana MD [facility]
[2017-10-14] MEDS: Nystatin 100,000 Units/ml Oral Susp 5 ml UD PO SCH ×5 (05:24→21:23)
[2017-10-14] MEDS ORDERED: Sodium Chloride 0.45% 1,000 ML IV SCH (08:00)
[2017-10-14 08:05] LABS: HEMOGLOBIN 10.1 g/dL (12.0-16.0); MEAN CELL VOLUME 96.7 fl (80.0-105.0); MEAN CORPUSCULAR HEMOGLOBIN 30.5 pg (25.0-35.0); MEAN CORPUSCULAR HGB CONC 31.6 g/dl (31.0-37.0); MEAN PLATELET VOLUME 10.8 fl (7.0-11.0); RBC 3.31 10^6/uL (3.5-6.1); RED CELL DISTRIBUTION WIDTH 13.8 % (11.5-14.5)
[2017-10-14 08:26] LABS: ALB/GLOB RATIO 1.2 (1.1-1.8); ALBUMIN 2.6 g/dL (3.0-4.8); ALT/SGPT 31 U/L (7-56); AST/SGOT 20 U/L (14-36); BLOOD UREA NITROGEN 31 mg/dL (7-21); CALCIUM 8.6 mg/dL (8.4-10.5); GFR AFRICAN-AMERICAN > 60; GFR NON-AFRICAN AMERICAN > 60
--- NOTE | 2017-10-14 08:43 | PN ---
DATE: 10/13/2017 SUBJECTIVE: Yesterday, I was able to get her a MRI of the thoracic spine. It turns out that she has a fracture of T12. I called in Neurosurgery and Interventional Radiology, Dr. Hrarison Blackburn, to see if she is a candidate to have anything done to fix it, maybe kyphoplasty. We will get their opinions. We are also waiting for authorization for her to go back to [facility]. She is comfortable in bed. She is definitely improving. She is more alert and comfortable. PHYSICAL EXAMINATION: VITAL SIGNS: She has a 98.6 temperature, 78 pulse, 121/52 blood pressure, 18 respiratory rate, 99% O2 saturation on room air. HEENT: Head is atraumatic, normocephalic. HEART: Regular rate. LUNGS: Clear to auscultation. ABDOMEN: Soft. EXTREMITIES: No edema. LABORATORY DATA: She has a 9.3 white count, 11.2 hemoglobin, 34.6 hematocrit, and 144 platelets. She has a 136 sodium, potassium 4.8, BUN 46, creatinine 0.8, GFR is greater than 60, sugar is 94, calcium 9, total bilirubin 0.7, AST 16, ALT 34, and alk phos 78. I went over the MRI. MEDICATIONS: She is currently on aspirin, Lovenox, MiraLax, Norvasc, nystatin, Phenergan, Plavix, and prednisone she is down to 30, Revatio, Toradol, vitamin B1, Xopenex, and Zofran as needed. ASSESSMENT AND PLAN: I am hoping for an evaluation from Dr. Harrison Blackburn and the neurosurgeon, Dr. Warren. I will get their opinion, but there is T12 acute fracture, and I will see if there is anything we can do about it. If not, we will get her to subacute rehab, physical therapy, keep this pain free, and continue with the medication. Nigel Wheeler DO
--- NOTE | 2017-10-14 10:01 | PN ---
DATE: 10/14/2017 SUBJECTIVE: The patient appears very comfortable this morning. She is not short of breath at rest. PHYSICAL EXAMINATION: VITALS: Temperature is 97.6, pulse 89, respirations 18, blood pressure 126/70. Oxygen saturation on nasal cannula is 100%. HEENT: Normocephalic, atraumatic. No JVD. CARDIOVASCULAR: Systolic ejection murmur at the lower left sternal border. No S3 gallop. LUNGS: Clear bilaterally. EXTREMITIES: Less edema. No cyanosis, no clubbing. Calves are nontender to palpation. GI: Abdomen is soft, nontender and nondistended. Bowel sounds are positive. SKIN: No acute rash. NEUROLOGIC: Limited at the present time. IMPRESSION: 1. Encephalopathy, weakness - much improved. 2. End-stage chronic obstructive pulmonary disease. 3. Severe pulmonary hypertension. 4. Increased B-type natriuretic peptide, rule out congestive heart failure. 5. Coronary artery disease. 6. Compression fracture T12. PLAN: The patient appears very comfortable this morning. She is not short of breath at rest. She does state to feeling much better overall. On physical exam, her lungs remain clear. Oxygen saturation on nasal cannula is 100%. I will continue with the current nebulizer treatments and oral steroids for now. The patient also remains on low-dose sildenafil - for her pulmonary hypertension. I did review the MRI results and note by Dr. Harrison Blackburn. Kyphoplasty is tentatively scheduled. I did have a long discussion with the patient this morning in front of the nurse. I described at length what the worse case scenario would be, as well as what I think would happen. I also had a second lengthy discussion with the patient and son later this morning. The son is in favor of her going for kyphoplasty. The patient remains ambivalent. I will certainly discuss the case with Dr. Harrison Blackburn again this morning. I did discuss the case with Dr. Wheeler earlier this morning. Evgeny Briggs MD [facility]
[2017-10-14] MEDS: DEXILANT 60 MG PO SCH (10:19)
[2017-10-14] MEDS: Enoxaparin 40 mg Syringe SC SCH (10:19)
[2017-10-14] MEDS: Sildenafil 20 MG TAB PO SCH ×2 (10:19→17:50)
[2017-10-14] MEDS: Thiamine 100 mg/ml Inj IM SCH (10:20)
[2017-10-14] MEDS: POLYETHYLENE GLYCOL 3350 17 GM/Dose PACKET PO SCH (10:23)
--- NOTE | 2017-10-14 12:43 | DS ---
Discharge to subacute rehab. HISTORY OF PRESENT ILLNESS: She is supposed to go for procedure today, a kyphoplasty, but it is not a simple straight forward procedure and I do not know how she is going to get through it lying on her tummy with her bad end-stage lung disease. It might be too much for her, if the oxygen saturations are poor, they will abort the procedure and then we could discharge her and she is also not so sure she wants to go through the procedure because of all the high risk, that is not a bad choice. She has a T12 fracture. PHYSICAL EXAMINATION: VITAL SIGNS: She has 99.3 temperature, 76 pulse, 99/54 blood pressure, 20 respiratory rate, 90% O2 saturations on 2 L nasal cannula. HEAD: Atraumatic, normocephalic. HEART: Regular rate. LUNGS: Decreased breath sounds, but clear. ABDOMEN: Soft, obese. EXTREMITIES: No edema. She has SIRS, congestive heart failure, end-stage chronic obstructive pulmonary disease, pulmonary hypertension, coronary artery disease, and she has a T12 fracture possible for kyphoplasty. If we do not do the kyphoplasty,I encouraged her to go to subacute rehab, so she could start her physical therapy and have improvement back to walking and independence, so I will see what out this morning and of course if she does go for the procedure, we will not discharge her. Nigel Wheeler DO MTDD
[2017-10-14] MEDS ORDERED: HEPARIN SODIUM/NS 1,000 ML IV ONE (13:25)
[2017-10-14] MEDS ORDERED: Lidocaine 2% Inj (20ml) ONE ×2 (13:25→13:27)
[2017-10-14] MEDS ORDERED: Iohexol 350mgl/ml 50 ML ONE (13:27)
[2017-10-14 17:39] VITALS: TEMP 98
--- NOTE | 2017-10-14 21:25 | VASCULAR ---
PROCEDURE: 1. T12 kyphoplasty HISTORY: Severe, refractory back pain. Unresponsive to bed rest and analgesics. Acute T12 compression fracture on MRI. PHYSICIAN(S): Harrison Blackburn MD. TECHNIQUE: he relative risks and indications of the procedure were explained to the patient and her family and informed written consent obtained. The patient was placed prone on the arteriography table and the thoracolumbar spine prepped and draped in the usual sterile fashion. The patient's O2 saturation was monitored in the prone position and noted to be stable. Conscious sedation and monitoring were provided throughout the procedure by a nurse. The T12 vertebral body was carefully localized with fluoroscopy. The skin and soft tissues were anesthetized with 1% Xylocaine. Under direct fluoroscopic guidance, bilateral transpedicular bone needles were placed into the posterior aspect of the T12 vertebral body. Next bilateral 10 mm bone balloons were placed in the superior and anterior portion of the T12 vertebral body. They were inflated to approximately 3.5 cc apiece with dilute contrast. The balloons were removed and 6.0 of barium-impregnated PMMA cement instilled into the T12 vertebral body. No extravasation was seen. The bone needles were removed. The patient tolerated the procedure well. IMPRESSION: 1. T12 kyphoplasty as described above.
[2017-10-15] MEDS: Levalbuterol 0.63 MG/3 ML Inhal Soln UD IH SCH ×3 (01:15→14:19)
[2017-10-15] MEDS: Nystatin 100,000 Units/ml Oral Susp 5 ml UD PO SCH ×2 (06:44→09:32)
--- NOTE | 2017-10-15 08:32 | PN ---
DATE: 10/15/2017 PULMONARY PROGRESS NOTE SUBJECTIVE: The patient appears very comfortable this morning. She is not short of breath at rest. PHYSICAL EXAMINATION: VITAL SIGNS: Last temperature recorded is 98.0. Pulse this morning is approximately 80. Respirations are 18. Last blood pressure recorded in the chart is 131/68. Oxygen saturation on nasal cannula is between 98%-100%. HEENT: Normocephalic and atraumatic. NECK: No JVD. CARDIOVASCULAR: Systolic ejection murmur at the lower left sternal border. No S3 gallop. LUNGS: Clear bilaterally. EXTREMITIES: Less edema. No cyanosis and no clubbing. Calves are nontender to palpation. GASTROINTESTINAL: Abdomen is soft, nontender and nondistended. Bowel sounds are positive. SKIN: No acute rash. NEUROLOGIC: Exam is limited at the present time. IMPRESSION 1. Encephalopathy, weakness - much improved. 2. End-stage chronic obstructive pulmonary disease. 3. Severe pulmonary hypertension. 4. Increased B-type natriuretic peptide, rule out congestive heart failure. 5. Coronary artery disease. 6. Compression fracture at T12. Status post kyphoplasty. PLAN: The patient appears very comfortable this morning. She is not short of breath at rest. She does state to feeling much, much better overall. On physical exam, her lungs remain clear. Oxygen saturation on nasal cannula is 98%-100%. I will continue with the current nebulizer treatments and oral steroids for now. The patient also remains on low-dose sildenafil - for her pulmonary hypertension. The patient is status post kyphoplasty by Dr. Harrison Blackburn yesterday. I discussed the case with the night nurse at length. The night nurse stated that the patient had a very good night. The patient is for probable transfer to a Subacute Rehab Institution later today. Clinically, she has improved significantly overall. However, again, unfortunately, the future status/prognosis for this patient does remain poor. All are aware. I will discuss the above with Dr. Wheeler later this morning. Evgeny Briggs MD [facility]
[2017-10-15 08:47] VITALS: BP 108/60; PULSE 89; RESP 20; O2SAT 94
[2017-10-15] MEDS: POLYETHYLENE GLYCOL 3350 17 GM/Dose PACKET PO SCH (09:26)
[2017-10-15] MEDS: Enoxaparin 40 mg Syringe SC SCH (09:26)
[2017-10-15] MEDS: Thiamine 100 mg/ml Inj IM SCH (09:26)
[2017-10-15] MEDS: Sildenafil 20 MG TAB PO SCH (09:28)
[2017-10-15] MEDS: DEXILANT 60 MG PO SCH (11:09)
--- NOTE | 2017-10-15 12:21 | PN ---
DATE: 10/15/2017 CARDIOLOGY FOLLOWUP SUBJECTIVE: The patient tolerated kyphoplasty yesterday without issues. Her respiratory status was okay. PHYSICAL EXAMINATION: VITAL SIGNS: Blood pressure is 108/60, heart rate in the 80s. NECK: Negative JVD. LUNGS: Without rales. HEART: With S1, S2. EXTREMITIES: Without edema. LABORATORY DATA: Hemoglobin is 10.1. BUN and creatinine unremarkable. IMPRESSION 1. Status kyphoplasty. 2. Severe chronic obstructive pulmonary disease. 3. Moderate pulmonary retention. 4. Stable angina. 5. Coronary artery disease. PLAN: Given these findings, we will continue analgesics until her kyphoplasty for pain relief of her spinal disease improve. Harrison Echavarria MD
--- NOTE | 2017-10-16 05:49 | DS ---
HISTORY OF PRESENT ILLNESS: Ms. Pinedo is resting comfortably in bed. She had an MRI done on the other day, showed a T12 fracture, she had kyphoplasty. She did very well during the procedure. I am hoping that helps her. She could now leave. I discussed this with Dr. Harrison Blackburn, the kyphoplasty doctor, Renal, Infectious Disease, Neurology, Pulmonary, Cardio, and voiced that she is good to go. She did go to physical therapy at the subacute rehab where she came from. She is on Ecotrin; Lovenox; Maalox; MiraLax; Norvasc; nystatin; Phenergan; Plavix; prednisone which she will have 30 for 3 days, 20 for 3 days, 10 for 3 days; Revatio; Toradol; Tylenol; vitamin B1; Xopenex; and Zofran. PHYSICAL EXAMINATION: VITAL SIGNS: 98 temperature, 89 pulse, 108/60 blood pressure, 20 respiratory rate, and 97% O2 saturation on room air. HEENT: Head is atraumatic, normocephalic. HEART: Regular rate. LUNGS: Clear to auscultation. ABDOMEN: Soft, obese. EXTREMITIES: No edema. LABORATORY DATA: She had white count, 10.1 hemoglobin , 32 hematocrit, and 138 platelets. She has 134 sodium, potassium 4.7, BUN 31, creatinine 0.8 , GFR is greater than 60, sugars are 82, calcium is 8.6, total bilirubin is 0.5, AST is 20, ALT is 31, alkaline phosphatase is 72, total protein is 4.8. She did really, really well with all her labs and her kidneys are definitely improving. She is here for numerous reasons, systemic inflammatory response syndrome, congestive heart failure, end-stage chronic obstructive pulmonary disease, pulmonary hypertension, coronary artery disease, T12 fracture, acute kidney injury, and she will be discharged today to as arranged by nursing home social worker. She is to do very well. Nigel Wheeler DO [facility]
--- NOTE | 2017-10-17 09:15 | PN ---
DATE: 10/15/2017 SUBJECTIVE: The patient is in bed in no acute distress, nontoxic. PHYSICAL EXAMINATION: VITAL SIGNS: Temperature is 98, blood pressure is 108/60, respiratory rate of 20. HEENT: Unremarkable. NECK: Supple. LUNGS: Have decreased breath sounds. HEART: Normal S1, S2. ABDOMEN: Soft. LABORATORY EXAMINATION: Reveals a white count of 8, hemoglobin of 10, platelets of 131 and chemistries reveals a BUN of 31, creatinine of 0.8, procalcitonin 0.07. Urinalysis; influenza is negative. ASSESSMENT AND PLAN: This is an 82-year-old female who was seen early this morning in 576, bed 1 who was initially admitted with serves systemic inflammatory response syndrome with acute on chronic congestive heart failure, end-stage chronic obstructive lung disease, pulmonary hypertension, coronary artery disease, dyslipidemia, and currently off of antibiotics with lumbar spine MRI is reviewed and no antibiotics at this point. No evidence of infection. The patient discharge today. Jose Eastman MD
== END 2017-10-15 18:14 | DRG 981 ==
LOC: ED 15:53 → ERH 18:06 → 2RSO 10-03 00:09 → 5RSO 10-05 18:05
PROVIDERS: ADMIT Family Medicine; ATTEND Family Medicine
PROC: 02HV33Z Insertion of Infusion Device into Superior Vena Cava, Percutaneous Approach (ICD-10-PCS; 2017-10-03)
PROC: B548ZZA Ultrasonography of Superior Vena Cava, Guidance (ICD-10-PCS; 2017-10-03)
PROC: 0PS43ZZ Reposition Thoracic Vertebra, Percutaneous Approach (ICD-10-PCS; principal; 2017-10-14)
PROC: 0PU43JZ Supplement Thoracic Vertebra with Synthetic Substitute, Percutaneous Approach (ICD-10-PCS; 2017-10-14)
DX: I11.0 Hypertensive heart disease with heart failure (principal); G93.40 Encephalopathy, unspecified; E87.2 Acidosis; S22.081A Stable burst fracture of T11-T12 vertebra, initial encounter for closed fracture; I07.1 Rheumatic tricuspid insufficiency; I27.20 Pulmonary hypertension, unspecified; R65.10 Systemic inflammatory response syndrome (SIRS) of non-infectious origin without acute organ dysfunction; J44.1 Chronic obstructive pulmonary disease with (acute) exacerbation; M48.54XA Collapsed vertebra, not elsewhere classified, thoracic region, initial encounter for fracture; N39.0 Urinary tract infection, site not specified; W19.XXXA Unspecified fall, initial encounter; B37.9 Candidiasis, unspecified; D63.8 Anemia in other chronic diseases classified elsewhere; E11.9 Type 2 diabetes mellitus without complications; E78.5 Hyperlipidemia, unspecified; I50.31 Acute diastolic (congestive) heart failure; E87.6 Hypokalemia; F17.210 Nicotine dependence, cigarettes, uncomplicated; F40.240 Claustrophobia; I25.118 Atherosclerotic heart disease of native coronary artery with other forms of angina pectoris; I35.1 Nonrheumatic aortic (valve) insufficiency; K21.9 Gastro-esophageal reflux disease without esophagitis; L89.90 Pressure ulcer of unspecified site, unspecified stage; M81.0 Age-related osteoporosis without current pathological fracture; N28.9 Disorder of kidney and ureter, unspecified; T50.2X5A Adverse effect of carbonic-anhydrase inhibitors, benzothiadiazides and other diuretics, initial encounter; Y92.000 Kitchen of unspecified non-institutional (private) residence as the place of occurrence of the external cause; Z79.02 Long term (current) use of antithrombotics/antiplatelets; Z79.51 Long term (current) use of inhaled steroids; Z79.82 Long term (current) use of aspirin; Z79.899 Other long term (current) drug therapy; Z87.440 Personal history of urinary (tract) infections; Z88.5 Allergy status to narcotic agent; Z90.49 Acquired absence of other specified parts of digestive tract; Z91.81 History of falling; Z95.5 Presence of coronary angioplasty implant and graft; Z99.81 Dependence on supplemental oxygen; H26.9 Unspecified cataract; Z88.1 Allergy status to other antibiotic agents; E78.00 Pure hypercholesterolemia, unspecified; E53.8 Deficiency of other specified B group vitamins

== ENCOUNTER 2017-11-01 13:18 | Inpatient (IN) | payer MEDICARE, MEDICAID ==
[2017-11-01 13:29] VITALS: BMI 25.2
--- NOTE | 2017-11-01 13:45 | ED PDOC ---
Arrival/HPI - General Chief Complaint: Shortness Of Breath Time Seen by Provider: 11/01/17 13:26 - History of Present Illness Narrative History of Present Illness (Text): 11/01/17 13:41 Pt is an 82 yo F with PMH of CAD s/p stents, O2-dependent COPD, pulmonary HTN, HTN, HLD, emphysema, and osteoporosis presents to ED due to episode of hypoxia at rehab center. Pt states that 1 day ago patient began having tremors in her UE at rest and with exertion. Pt denies prior occurrences. Pt states that she feels very anxious due to the tremor and feels more short of breath then normal. Pt states that she has not been able to ambulate since her last admission about 6 weeks ago because of a back injury. Pt denied CP, abdominal pain, n/v/d, fever, chills, CLOUD, or dizziness. PMD: Summer Past Medical History - Infectious Disease Hx of Infectious Diseases: None - Tetanus Immunization Tetanus Immunization: Unknown - Cardiac Hx Cardiac Disorders: Yes Hx Congestive Heart Failure: Yes Hx Hypertension: Yes - Pulmonary Hx Chronic Obstructive Pulmonary Disease (COPD): Yes - Neurological Hx Neurological Disorder: Yes Hx Dizziness: Yes - HEENT Hx HEENT Disorder: Yes Hx Cataracts: Yes - Renal Hx Renal Disorder: No - Endocrine/Metabolic Hx Endocrine Disorders: No - Hematological/Oncological Hx Cancer: No - Integumentary Hx Dermatological Disorder: No - Musculoskeletal/Rheumatological Hx Musculoskeletal Disorders: Yes Hx Falls: Yes Hx Fractures: Yes (L wrist) Hx Herniated Disk: Yes Hx Osteoarthritis: Yes Hx Osteoporosis: Yes Hx Spinal Stenosis: Yes - Gastrointestinal Hx Gastrointestinal Disorders: Yes (exploratry lap with 2 inches of bowel resected) Hx Diverticulitis: Yes Hx Gall Bladder Disease: Yes (CHLOECYSTECTOMY) - Genitourinary/Gynecological Hx Genitourinary Disorders: Yes Hx Incontinence: Yes Hx Urinary Tract Infection: Yes - Psychiatric Hx Psychophysiologic Disorder: No Hx Emotional Abuse: No Hx Physical Abuse: No Hx Substance Use: No - Surgical History Hx Mastectomy: No - Anesthesia Hx Anesthesia: Yes Hx Anesthesia Reactions: No Hx Malignant Hyperthermia: No - Suicidal Assessment Feels Threatened In Home Enviroment: No Family/Social History Family/Social History: Unknown Family HX Smoking Status: Former Smoker Hx Alcohol Use: No Hx Substance Use: No Hx Substance Use Treatment: No Allergies/Home Meds Allergies/Adverse Reactions: Allergies codeine Adverse Reaction (Verified 10/02/17 16:13) VOMITING hydromorphone HCl [From Dilaudid] Adverse Reaction (Verified 10/02/17 16:13) VOMITING MYOCINS Adverse Reaction (Uncoded 10/02/17 16:13) VOMITING Home Medications: Home Meds Medication Instructions Recorded Confirmed Atorvastatin Calcium [Lipitor] 10 mg PO DAILY 02/09/12 11/01/17 Clopidogrel [Plavix] 75 mg PO DAILY 02/09/12 11/01/17 Ranolazine [Ranexa] 1,000 mg PO BID 01/21/15 11/01/17 Aspirin [Aspirin EC] 81 mg PO DAILY 01/19/16 11/01/17 Dexlansoprazole [Dexilant] 60 mg PO DAILY 01/19/16 11/01/17 traMADol [Ultram] 50 mg PO TID PRN 01/19/16 11/01/17 Arformoterol [Brovana] 1 carley NEB BID 03/26/17 11/01/17 Budesonide/Formoterol Fumarate 1 puff IH PRN PRN 08/18/17 11/01/17 [Symbicort 160-4.5 Mcg Inhaler] Levalbuterol Tartrate [Xopenex Hfa] 1 puff IH PRN PRN 08/18/17 11/01/17 Review of Systems - Review of Systems Constitutional: Normal Eyes: Normal ENT: Normal Respiratory: SOB Cardiovascular: Normal Gastrointestinal: Normal Genitourinary Female: Normal Musculoskeletal: Normal Skin: Normal Neurological: Normal Endocrine: Normal Hemo/Lymphatic: Normal Physical Exam Vital Signs Temp Pulse Resp BP Pulse Ox 11/01/17 20:44 98 H 18 142/84 99 11/01/17 17:05 91 H 12 113/68 99 11/01/17 16:00 95 H 21 121/64 99 11/01/17 13:38 12 99 11/01/17 13:35 97.4 F L 97 H 12 114/50 L 99 Temperature: Afebrile Blood Pressure: Normal Pulse: Regular Respiratory Rate: Normal Appearance: Positive for: Well-Appearing - Systems Exam Head: Present: Atraumatic, Normocephalic Extroacular Muscles: Present: EOMI Mouth: Present: Moist Mucous Membranes Respiratory/Chest: Present: Decreased Breath Sounds. No: Accessory Muscle Use, Wheezes, Rales, Rhonchi, Tender to Palpation Cardiovascular: Present: Regular Rate and Rhythm, Normal S1, S2 Abdomen: Present: Normal Bowel Sounds. No: Tenderness, Distention, Peritoneal Signs, Rebound, Guarding Back: Present: Normal Inspection Upper Extremity: Present: Normal Inspection Lower Extremity: Present: Normal Inspection Neurological: Present: GCS=15 Skin: Present: Warm, Dry, Normal Color. No: Rashes Psychiatric: Present: Alert, Oriented x 3 Medical Decision Making ED Course and Treatment: 11/01/17 13:47 Assessment: 82 yo F with PMH of CAD s/p stents, O2-dependent COPD, pulmonary HTN, HTN, HLD, emphysema, and osteoporosis presents to ED with SOB and UE tremors. Plan: - CBC - CMP, Mg - BNP - Cardiac enzymes - D-dimer - Coags - EKG - UA - CXR 11/01/17 15:12 D-dimer elevated. CTA PE protocol ordered. 11/01/17 15:24 CXR showed no active pulmonary disease. COPD. EKG showed NSR, possible left atrial enlargement, borderline ECG. 11/01/17 17:[address] scan. AC access required for IV contrast, however patient with difficult access and refused multiple attempts. Also, cited questionable IV contrast allergy. V/Q scan ordered. 11/01/17 21:35 V/Q showed moderate probability for pulmonary embolism. Heparin bolus followed by drip started. 11/01/17 21:[address] Wheeler, he accepts patient under his service. Dr. Wheeler requests pulm consult, Dr. Briggs. - Lab Interpretations Lab Results: 11/01/17 14:00 11/01/17 14:00 Lab Results 11/01/17 15:20: Urine Color Yellow, Urine Appearance Clear, Urine pH 7.0, Ur Specific Wells 1.020, Urine Protein Trace H, Urine Glucose (UA) Negative, Urine Ketones Negative, Urine Blood Negative, Urine Nitrate Negative, Urine Bilirubin Small H, Urine Urobilinogen 0.2, Ur Leukocyte Esterase Negative, Urine RBC Negative, Urine WBC 0 - 2, Ur Epithelial Cells 0 - 2 11/01/17 14:00: PT 11.4, INR 1.00, APTT 22.5 L, D-Dimer, Quantitative 264 H 11/01/17 14:00: Sodium 130 L, Potassium 4.6, Chloride 89 L, Carbon Dioxide 34 H , Anion Gap 11, BUN 25 H, Creatinine 0.8, Est GFR ( Amer) > 60, Est GFR ( Non-Af Amer) > 60, Random Glucose 154 H, Calcium 9.1, Magnesium 1.6 L, Total Bilirubin 0.5, AST 22, ALT 38, Alkaline Phosphatase 65, Lactate Dehydrogenase 281 L, Total Creatine Kinase 21 L, Troponin I < 0.01 D, NT-Pro-B Natriuret Pep 612 H, Total Protein 5.5 L, Albumin 3.2, Globulin 2.3, Albumin/Globulin Ratio 1.4 11/01/17 14:00: WBC 8.0, RBC 3.36 L, Hgb 10.1 L, Hct 31.5 L, MCV 93.8, MCH 30.1 , MCHC 32.1, RDW 14.5, Plt Count 190, MPV 10.5, Gran % 92.2 H, Lymph % (Auto) 4.4 L, Elbert % (Auto) 3.2, Eos % (Auto) 0.1 L, Baso % (Auto) 0.1, Gran # 7.40 H, Lymph # (Auto) 0.4 L, Elbert # (Auto) 0.3, Eos # (Auto) 0.0, Baso # (Auto) 0.01, Neutrophils % (Manual) 93 H, Band Neutrophils % 4 H, Lymphocytes % (Manual) 3 L , Monocytes % (Manual) TEST NOT PERFORMED, Platelet Evaluation Normal - RAD Interpretation Radiology Orders: 11/01/17 13:42 CHEST PORTABLE [RAD] Stat 11/01/17 17:21 LUNG PERF & VENT SCAN [NM] Stat - Medication Orders Current Medication Orders: Heparin Sodium/Sodium Chloride (Heparin 87174 Units/250ml 1/2 Normal Saline) 25 ,000 units in 250 mls @ 12.002 mls/hr IV .[id number] PRN; Protocol; 18 UNITS/KG/HR PRN Reason: ADJUST RATE PER PROTOCOL Discontinued Medications Heparin Sodium (Porcine) (Heparin) 5,300 units 80 units/kg (5300 units) IV ONCE ONE PRN Reason: Protocol Stop: 11/01/17 21:45 Methylprednisolone (Solu-Medrol) 125 mg IVP STAT STA Stop: 11/01/17 13:43 Last Admin: 11/01/17 14:02 Dose: 125 mg IVP Administration Document 11/01/17 14:02 NILAM (Rec: 11/01/17 14:02 [facility]-[id number]) Charges for Administration # of IVP Administrations 1 Disposition/Present on Arrival - Present on Arrival Any Indicators Present on Arrival: Yes History of DVT/PE: No History of Uncontrolled Diabetes: No Urinary Catheter: No History of Decub. Ulcer: No History Surgical Site Infection Following: None - Disposition Have Diagnosis and Disposition been Completed?: Yes Diagnosis: Pulmonary embolism Disposition: HOSPITALIZED Disposition Time: 21:48 Patient Plan: Admission Patient Problems: Current Active Problems Problem Status Onset Pulmonary embolism Acute Condition: STABLE Forms: [employer] (Pakistani)
[2017-11-01 14:33] LABS: BASO # 0.01 K/mm3 (0.0-2.0); BASO % 0.1 % (0.0-3.0); EOS % 0.1 % (1.5-5.0); GRAN % 92.2 % (50.0-68.0); HEMOGLOBIN 10.1 g/dL (12.0-16.0); LYMPH # 0.4 (1.2-3.4); LYMPH % 4.4 % (22.0-35.0); MEAN CELL VOLUME 93.8 fl (80.0-105.0); MEAN CORPUSCULAR HEMOGLOBIN 30.1 pg (25.0-35.0); MEAN CORPUSCULAR HGB CONC 32.1 g/dl (31.0-37.0); MEAN PLATELET VOLUME 10.5 fl (7.0-11.0); MONO # 0.3 (0.1-0.6); MONO % 3.2 % (1.0-6.0); PLATELET COUNT 190 10^3/uL (120.0-450.0); RBC 3.36 10^6/uL (3.5-6.1); RED CELL DISTRIBUTION WIDTH 14.5 % (11.5-14.5)
[2017-11-01 14:50] LABS: B-TYPE NATRIURETIC PEPTIDE 612 pg/mL (0-450); TROPONIN I < 0.01 ng/mL
[2017-11-01 14:51] LABS: ALB/GLOB RATIO 1.4 (1.1-1.8); ALBUMIN 3.2 g/dL (3.0-4.8); ALT/SGPT 38 U/L (7-56); AST/SGOT 22 U/L (14-36); BLOOD UREA NITROGEN 25 mg/dL (7-21); CALCIUM 9.1 mg/dL (8.4-10.5); GFR AFRICAN-AMERICAN > 60; GFR NON-AFRICAN AMERICAN > 60; MAGNESIUM 1.6 mg/dL (1.7-2.2)
[2017-11-01 14:58] LABS: PARTIAL THROMBOPLASTIN TIME 22.5 Seconds (25.1-36.5); PROTHROMBIN TIME 11.4 SECONDS (9.4-12.5)
--- NOTE | 2017-11-01 14:58 | RAD ---
HISTORY: Shortness of breath COMPARISON: 10/02/2017 FINDINGS: LUNGS: The lungs are hyperinflated and there is peribronchial thickening with chronic changes in both lungs. There are fibrotic changes in upper lobes. There is minimal subsegmental atelectasis in the right lateral lung base. PLEURA: No significant pleural effusion identified, no pneumothorax apparent. CARDIOVASCULAR: Normal. OSSEOUS STRUCTURES: Within normal limits for the patient's age. VISUALIZED UPPER ABDOMEN: Normal. OTHER FINDINGS: None. IMPRESSION: No active pulmonary disease. COPD.
[2017-11-01 15:03] LABS: BAND 4 % (0-2); LYMPHOCYTE 3 % (22.0-35.0); NEUTROPHIL 93 % (50.0-70.0)
[2017-11-01 15:04] LABS: PLATELET ESTIMATE NORMAL (NORMAL)
[2017-11-01] MEDS ORDERED: Iohexol 350 MG/100 ML VIAL ONE (15:23)
[2017-11-01 15:42] LABS: URINE BILIRUBIN SMALL (NEGATIVE); URINE BLOOD NEGATIVE (NEGATIVE); URINE GLUCOSE (UA) NEGATIVE (NEGATIVE); URINE LEUKOCYTE ESTERASE NEGATIVE Leu/uL (NEGATIVE); URINE NITRATE NEGATIVE (NEGATIVE); URINE PROTEIN TRACE mg/dL (<30 mg/dL); URINE UROBILINOGEN 0.2 E.U./dL (<1 E.U./dL)
[2017-11-01 15:46] LABS: URINE COLOR YELLOW (YELLOW)
[2017-11-01 15:47] LABS: URINE APPEARANCE CLEAR (CLEAR)
[2017-11-01 16:07] LABS: URINE EPITHELIAL CELLS 0 - 2 /hpf (0-5); URINE RBC NEGATIVE /hpf (0-2); URINE WBC 0 - 2 /hpf (0-6)
[2017-11-01] MEDS ORDERED: Enoxaparin 80 mg Syringe SC STA (21:39)
[2017-11-01] MEDS: Heparin25000 units/250ml 1/2NS 25,000 UNITS/250 ML BAG IV PRN (23:24)
[2017-11-02] MEDS ORDERED: Levalbuterol 1.25 MG/3 ML Inhal Soln UD IH PRN (07:27)
[2017-11-02] MEDS: Budesonide 0.5 mg/2 ml Inhal Susp UD IH SCH ×2 (07:37→20:30)
[2017-11-02] MEDS: Levalbuterol 1.25 MG/3 ML Inhal Soln UD IH SCH ×3 (07:37→20:29)
[2017-11-02] MEDS ORDERED: Levalbuterol 1.25 MG/3 ML Inhal Soln UD IH SCH ×2 (08:00)
--- NOTE | 2017-11-02 08:18 | CARD ---
APPROVED REPORT EKG Measurement Heart [id number] <Conclusion> Normal sinus rhythm Possible Left atrial enlargement RVCD NSSTW changes
[2017-11-02] MEDS ORDERED: Sildenafil 20 MG TAB PO SCH (10:00)
[2017-11-02] MEDS: POLYETHYLENE GLYCOL 3350 17 GM/Dose PACKET PO SCH (10:53)
[2017-11-02] MEDS: Nystatin 100,000 Units/ml Oral Susp 5 ml UD PO SCH ×4 (10:53→22:25)
[2017-11-02] MEDS: Thiamine 100 mg/ml Inj IM SCH (10:53)
[2017-11-02] MEDS: Sildenafil 20 MG TAB PO SCH ×2 (10:53→17:25)
[2017-11-02] MEDS: RANOLAZINE 1000 MG PO SCH ×2 (10:54→17:25)
--- NOTE | 2017-11-02 11:09 | NM ---
COMPARISON: Portable chest 11/01/2017. TECHNIQUE: 33.2 mCi technetium 99-m DTPA aerosol. 3.0 mCI technetium 99-m MAA administered intravenously. FINDINGS: VENTILATION COMPONENT: Heterogeneous uptake is appreciate throughout the bilateral lung jiménez at least in part is a function of technical artifact from technetium 99m-MAA. PERFUSION COMPONENT: There is a large area of diminished uptake at the right apical segment, appearing matched at its superior extent and on matched at its inferior extent. Multifocal, partially matched subsegmental perfusion defects are identified at the left upper lobe and superior segment left lower lobe. No definite prominent infiltrate or pleural effusion is appreciated in the chest radiograph performed a couple hours prior to this examination. COPD changes are reiterated. IMPRESSION: Intermediate probability for pulmonary embolus. Findings concordant with V rad interpretation preliminarily (also performed 11/01/2017).
[2017-11-02] MEDS: Insulin Reg-MEDIUM-Coverage SC SCH ×3 (12:57→21:51)
--- NOTE | 2017-11-02 14:19 | CP.PCM.CON ---
History of Present Illness - History of Present Illness History of Present Illness: Initial Nephrology Consultation: Assessment: Stable possible Pulmonary embolism chronic respi acidosis with renal compensation as evident by elevated pCO2 and elevated Bicarb CAD s/p stents, COPD/emphysema on home O2, pulmonary hypertension, HTN, Hyperlipidemias low back pain mild hyponatremia, hypomagnesemia Plan renal function stable Hypertension control with meds as ordered. Monitor Input/Output, daily weights encourage oral intake supplement electrolytes as needed Glycemic control No further renal work up or intervention indicated further management as per primary team will sign off. Thanks for allowing me to participate in care of your patient. Please call if any Qs. Dr Parviz Suarez Office: [phone] Chief Complaint; shortness of breath HPI: Pt is a 82 y/o female with history of CAD s/p stents, COPD/emphysema on home O2, pulmonary hypertension, HTN, Hyperlipidemias low back pain came with SOB and being treated for pulmonary embolism. renal consult for abnormal electrolytes and elevated BUN, dark urine pt c/o SOB and chronic back pain ROS: Cardiovascular: No chest pain. Pulmonary: c/o shortness of breath but chronic Gastrointestinal: denies abdominal pain No nausea. No vomiting. Genitourinary: no urinary complaints except darker in color All other negative except back pain and as mentioned in HPI Physical Examination: General Appearance: Comfortable, in no acute respiratory distress, co-operative . elderly female Vitals reviewed and noted as below Head; Atraumatic, normocephalic ENT: no ulcers no thrush. Tongue is midline and dry. Oropharynx: no rash or ulcers. EYES: Pupils are equal, round and reactive to light accommodation. Eye muscles and extraocular movement intact. Sclera is anicteric. Neck; supple no lymphadenopathy, no thyromegaly or bruit Lungs: Normal respiratory rate/effort. Breath sounds bilateral equal and has bibasal crackles Heart: Normal rate. s1s2 normal. No rub or gallop. Extremities: no edema. No varicose veins Neurological: Patient is alert, awake and oriented to person, place and time. No focal deficit. Strength bilateral appropriate and equal Skin: Warm and dry. Normal turgor. No rash. Palpitation: Normal elasticity for age Abdomen: Abdomen is soft. Bowel sounds +. There is no abdominal tenderness, no guarding/rigidity no organomegaly Psych: normal insight and normal affect/mood MSK: no joint tenderness or swelling. Digits and nails normal, no deformity : kidney or bladder not palpable. Labs/imaging reviewed. Past medical history, past surgical history, family history, social history, allergy reviewed and noted as below Family hx: no hx of CKD. Rest non-contributory CT abdomen: normal kidneys, small cyst echo: IVC collapses >50% UA: trace protein SG 1.020 bilir+ no blood Past Patient History - Infectious Disease Hx of Infectious Diseases: None - Tetanus Immunizations Tetanus Immunization: Unknown - Past Medical History & Family History Past Medical History?: Yes - Past Social History Smoking Status: Former Smoker - CARDIAC Hx Congestive Heart Failure: Yes Hx Hypertension: Yes - PULMONARY Hx Chronic Obstructive Pulmonary Disease (COPD): Yes Hx Pneumonia: Yes - NEUROLOGICAL Hx Neurological Disorder: Yes Hx Dizziness: Yes - HEENT Hx HEENT Problems: Yes Hx Cataracts: Yes - RENAL Hx Chronic Kidney Disease: No - ENDOCRINE/METABOLIC Hx Endocrine Disorders: No - HEMATOLOGICAL/ONCOLOGICAL Hx Anemia: Yes - INTEGUMENTARY Hx Dermatological Problems: No - MUSCULOSKELETAL/RHEUMATOLOGICAL Hx Falls: Yes - GASTROINTESTINAL Hx Gastrointestinal Disorders: Yes (exploratry lap with 2 inches of bowel resected) Hx Diverticulitis: Yes Hx Gall Bladder Disease: Yes (CHLOECYSTECTOMY) - GENITOURINARY/GYNECOLOGICAL Hx Genitourinary Disorders: Yes Hx Incontinence: Yes Hx Urinary Tract Infection: Yes - PSYCHIATRIC Hx Substance Use: No - SURGICAL HISTORY Hx Appendectomy: Yes Hx Cardiac Catheterization: Yes Hx Cholecystectomy: Yes Hx Coronary Stent: Yes - ANESTHESIA Hx Anesthesia: Yes Hx Anesthesia Reactions: No Hx Malignant Hyperthermia: No Meds Allergies/Adverse Reactions: Allergies Allergy/AdvReac Type Severity Reaction Status Date / Time codeine AdvReac VOMITING Verified 10/02/17 16:13 hydromorphone HCl AdvReac VOMITING Verified 10/02/17 16:13 [From Dilaudid] MYOCINS AdvReac VOMITING Uncoded 10/02/17 16:13 - Medications Medications: Current Medications Alprazolam (Xanax) 0.25 mg PO Q8 PRN; Protocol PRN Reason: Anxiety Stop: 11/09/17 08:08 Aspirin (Ecotrin) 81 mg PO DAILY [facility] Last Admin: 11/02/17 10:53 Dose: 81 mg Atorvastatin Calcium (Lipitor) 10 mg PO DAILY [facility] Last Admin: 11/02/17 10:53 Dose: 10 mg Budesonide (Pulmicort Respules) 0.5 mg IH [id number] [facility] Last Admin: 11/02/17 07:37 Dose: 0.5 mg Calcium Carbonate (Caltrate) 600 mg PO DAILY [facility] Last Admin: 11/02/17 10:53 Dose: 600 mg Heparin Sodium/Sodium Chloride (Heparin 79540 Units/250ml 1/2 Normal Saline) 25 ,000 units in 250 mls @ 12.002 mls/hr IV .[id number] PRN; Protocol; 18 UNITS/KG/HR PRN Reason: ADJUST RATE PER PROTOCOL Last Titration: 11/02/17 11:00 Dose: 15 units/kg/hr, 10.002 mls/hr Insulin Human Regular (Humulin R Med) 0 units SC ACHS [facility] PRN Reason: Protocol Last Admin: 11/02/17 12:57 Dose: Not Given Levalbuterol HCl (Xopenex) 1.25 mg IH [id number] [facility] Last Admin: 11/02/17 07:37 Dose: 1.25 mg Levalbuterol HCl (Xopenex) 1.25 mg IH Q2 PRN PRN Reason: Shortness of Breath Ranolazine [Ranexa] 1,000 Mg (Home Med) 1,000 mg PO BID [facility] Last Admin: 11/02/17 10:54 Dose: Not Given Nystatin (Nystatin Oral Susp) 5 ml PO 5XD [facility] Last Admin: 11/02/17 13:26 Dose: 5 ml Pantoprazole Sodium (Protonix Ec Tab) 40 mg PO DAILY [facility] Polyethylene Glycol (Miralax) 17 gm PO DAILY [facility] Last Admin: 11/02/17 10:53 Dose: 17 gm Prednisone (Prednisone Tab) 10 mg PO DAILY [facility] Last Admin: 11/02/17 10:53 Dose: 10 mg Sildenafil Citrate (Revatio) 20 mg PO BID [facility] Last Admin: 11/02/17 10:53 Dose: 20 mg Thiamine HCl (Vitamin B1 Inj) 100 mg IM DAILY [facility] Last Admin: 11/02/17 10:53 Dose: 100 mg Tramadol HCl (Ultram) 50 mg PO TID PRN PRN Reason: Pain, moderate (4-7) Results - Vital Signs Recent Vital Signs: Last Vital Signs Temp 97.8 F 11/02/17 12:00 Pulse 101 H 11/02/17 12:00 Resp 20 11/02/17 12:00 BP 112/54 L 11/02/17 12:00 Pulse Ox 100 11/02/17 12:00 - Labs Result Diagrams: 11/01/17 14:00 11/01/17 14:00 Labs: Laboratory Results - last 24 hr 11/02/17 09:00 APTT 199.8 H*
--- NOTE | 2017-11-02 17:23 | CON ---
DATE: 11/02/2017 PULMONARY CONSULTATION REASON FOR CONSULTATION: Rule out pulmonary embolism. REFERRING PHYSICIAN: Nigel Wheeler DO. HISTORY OF PRESENT ILLNESS: The patient is an 82-year-old chronically ill female, with past medical history significant for end-stage chronic obstructive pulmonary disease, on home oxygen, coronary artery disease, status post multiple stents, severe pulmonary hypertension, hyperlipidemia, recent compression fracture (T12), who presents to [facility] - transferred from the rehab center - with main complaint of increasing shortness of breath. Apparently, the patient began having tremors in her upper extremities. After the tremors were present, the patient admits to feeling extremely anxious and becoming more short of breath. In the emergency room, ventilation-perfusion scan was done. It was read as "moderate probability." The patient was thus admitted for additional evaluation. As stated above, the patient did present with shortness of breath. She is quite comfortable at the time of my examination. She does have chronic dyspnea on exertion. She also has a chronic minimal cough with some sputum production. There is no history of chest pain, coughing up of blood or chest pain - made worse with deep respirations. There is no history of temperatures, chills or infectious exposure. There is no history of night sweats, weight loss or appetite change prior to the above events. No history of leg or calf pains. No history of syncope or diaphoresis. No history of recent travel or trauma. REVIEW OF SYSTEMS: No history of nausea, vomiting or diarrhea. No acute urinary symptoms. Rest of the review of systems negative. ALLERGIES: TO CODEINE AND ERYTHROMYCIN. SOCIAL HISTORY: Positive for extensive tobacco usage. No alcohol. FAMILY HISTORY: No inheritable diseases. HOME MEDICATIONS: Include Ultram, prednisone, Revatio, Ranexa, Xopenex, Lovenox, Dexilant, Plavix, Caltrate, Symbicort, aspirin, Brovana, Tylenol, Xanax. PHYSICAL EXAMINATION: GENERAL: The patient appears comfortable this morning. She is not short of breath at rest. VITALS: Temperature is 97.4, pulse 90, respirations 18/20, blood pressure 141/79. Oxygen saturation on nasal cannula is 98%. HEENT: Normocephalic, atraumatic. No JVD. CARDIOVASCULAR: Systolic ejection murmur at the lower left sternal border. No S3 gallop. LUNGS: Decreased breath sounds at the bases. Minimal rhonchi. No wheezing. EXTREMITIES: Mild edema. No cyanosis. No clubbing. Calves are nontender to palpation. GI: Abdominis is soft, nontender and nondistended. Bowel sounds are positive. SKIN: No acute rash. NEUROLOGIC: Limited at the present time. PERTINENT LABORATORY DATA: Chest x-ray was done and reviewed. The chest x-ray is similar to the previous film. Ventilation-perfusion scan was also done. There is no official result on the chart. However, the preliminary reading is "moderate" probability for pulmonary embolism. CBC: White count 8.0, hemoglobin 10.1, hematocrit 31.5, platelets of 190,000. D-dimer - 264. IMPRESSION: 1. Rule out pulmonary embolism. 2. End-stage chronic obstructive pulmonary disease. 3. Severe pulmonary hypertension. 4. Coronary artery disease. 5. Chronic anemia. PLAN: The patient presents to [facility] - transferred from the rehab center - for increasing shortness of breath. As per the patient, she began to experience tremors in her upper extremities. This made her extremely anxious and she began to experience shortness of breath. She was then transferred to [facility]. I did review the chest x-ray as above. The chest x-ray shows no significant change from the previous film. I have also reviewed the ventilation-perfusion scan(pt. refused CT SCAN). There are no official results on the chart, however, the preliminary report is "moderate" probability for pulmonary embolism. This is an unusual designation for a ventilation-perfusion scan, and I will review the case with Radiology this morning. In any case, the patient is currently heparinized. Her D-dimer was very slightly elevated. I will follow the above with Doppler ultrasound of the legs. This will help give us a better idea whether this patient really has a pulmonary embolism or not. On physical exam, there is only minimal bronchospasm noted. There is no significant alveolar-arterial gradient. Oxygen saturation on nasal cannula is 98%. I will continue with the current nebulizer treatments, inhaled steroids and low-dose oral prednisone. I will also restart the patient on her Revatio-- for her pulmonary hypertension. The patient appears significantly improved this morning. I will discuss the above with Dr. Wheeler. Thank you very much for this pulmonary consultation. Evgeny Briggs MD [facility] # [id number] JOSEPH
[2017-11-02] MEDS: Magnesium Oxide 400 mg Tab UD PO SCH (17:25)
--- NOTE | 2017-11-02 18:17 | US ---
HISTORY: Leg pain and swelling. Evaluate for DVT PHYSICIAN(S): Harrison Blackburn MD. TECHNIQUE: Duplex sonography and color-flow Doppler with graded compression were used to evaluate the deep venous systems of both lower extremities. The exam is limited by edema. FINDINGS: The visualized deep venous systems of both lower extremities are sonographically normal and compressible. Normal wave forms and augmentation are seen. There is no sonographic evidence for deep venous thrombosis in the visualized segments of both lower extremities. IMPRESSION: No sonographic evidence for deep venous thrombosis in the visualized segments of both lower extremities.
[2017-11-03] MEDS: Heparin25000 units/250ml 1/2NS 25,000 UNITS/250 ML BAG IV PRN (01:42)
--- NOTE | 2017-11-03 02:19 | CON ---
DATE: 11/02/2017 CARDIOLOGY CONSULTATION HISTORY OF PRESENT ILLNESS: The patient is an 82-year-old woman who presents with diffuse body aches and mild dyspnea. The patient denies chest pain. PAST MEDICAL HISTORY: Includes severe COPD, treated with home oxygen. She suffers from mild pulmonary hypertension, history of PTCA and stent in the past. She was recently discharged from the hospital after an extensive stay in the TCU. In addition, the patient suffers from pulmonary hypertension, which has been treated with sildenafil. In addition, the patient is currently on aspirin and Plavix. She is on atorvastatin for her hypercholesterolemia. SOCIAL HISTORY: She is a former smoker. REVIEW OF SYSTEMS: As above. PHYSICAL EXAMINATION: VITAL SIGNS: Blood pressure 112/54, the heart rate is in the 90s. NECK: Negative JVD. LUNGS: No rales noted. HEART: Reveal S1, S2. EXTREMITIES: Trace edema. LABORATORY DATA: Includes a hemoglobin of 10.1. Chemistries, troponins are negative x1. ProBNP is 612. IMPRESSION: 1. Exacerbation of chronic obstructive pulmonary disease. 2. Mild pulmonary hypertension. 3. Coronary artery disease. 4. Stable angina. 5. No evidence for acute coronary syndrome. 6. Body aches. Given these findings, the treatment will be directed at her chronic obstructive pulmonary disease. There is no evidence for congestive heart failure. Harrison Echavarria MD
[2017-11-03] MEDS: Levalbuterol 1.25 MG/3 ML Inhal Soln UD IH SCH ×4 (02:45→21:15)
[2017-11-03] MEDS: Nystatin 100,000 Units/ml Oral Susp 5 ml UD PO SCH ×5 (05:23→21:18)
--- NOTE | 2017-11-03 07:32 | HP ---
HISTORY OF PRESENT ILLNESS: I know her very well from multiple hospital stays and rehabilitation. She was sent to the emergency room with 84 oxygen saturation on 6 L of oxygen at [facility] as well as to the emergency room. She had a V/Q scan showing a possibility of PE. She is an 82-year-old female with shortness of breath at the rehab. Did have history of some tremors that left her, but she felt anxious, and shortness of breath came on. PAST MEDICAL HISTORY: She has a past medical history of CAD - status post stents, oxygen-dependent COPD, pulmonary hypertension, hypertension, high cholesterol, lymphedema, osteoporosis. She had an episode of hypoxemia at [facility]. Also CHF. She gets dizzy. She has cataracts. She had left wrist fracture, herniated disc, osteoarthritis, osteoporosis, spinal stenosis. She had an exploratory laparotomy and 2 inches of bowel resected, cholecystectomy, diverticulitis, she had a kyphoplasty recently, incontinence of urine. FAMILY HISTORY: Unknown family history. SOCIAL HISTORY: Former smoker. No alcohol. No drugs. ALLERGIES: TO CODEINE, HYDROMORPHONE, AND MYCINS. MEDICATIONS: She takes Lipitor for the high cholesterol, Plavix, Ranexa, aspirin, Tessalon, Ultram, Brovana, Symbicort, and Xopenex. REVIEW OF SYSTEMS: She was short of breath, but she is comfortable now. No acute vision or hearing loss. No sore throat. No chest pain. No palpitation. She has decreased breath sounds, but little bit short of breath. No abdominal pain. No nausea, vomiting, constipation, or diarrhea. At this time, no musculoskeletal issues. Skin is intact. Not nervous. PHYSICAL EXAMINATION: GENERAL: She is well appearing at this time, no acute distress, on oxygen. VITAL SIGNS: She has 97.4 temp, 91 oxygen saturation, 21 respiratory rate, 121/64 blood pressure, 99% O2 sat on oxygen. HEENT: Head is atraumatic, normocephalic. Extraocular muscles are intact. Throat is moist. NECK: Supple. HEART: Regular rate. Normal S1, S2. LUNGS: Decreased breath sounds, clear to auscultation bilaterally. No rhonchi, no rales. ABDOMEN: Soft, nontender. Positive bowel sounds. No guarding. No rebound. No CVA tenderness. EXTREMITIES: No edema. NEUROLOGIC: GCS is 15. She is comfortable at this time, but anxious. She is an O2 dependent COPD patient with hypoxemia. SKIN: Warm and dry. No apparent rashes or ulcers. LABORATORY DATA: She had multiple tests. She has an 8 white count, 10.1 hemoglobin, 31.5 hematocrit, with 190 platelets. INR is 1. D-dimer was high at 264. She was placed on heparin after the scan. Sodium 135, potassium 4.6, BUN is 25, creatinine 0.8. GFR is greater than 60. Sugar is 154. Calcium 9.1, magnesium 1.6. Total bili is 0.5, AST is 22, ALT is 30, alk phos is 55. Lactate dehydrogenase is 281, troponin-I is less than 0.01. BNP albumin of 3.2. Urine was small. She had a chest x-ray that showed no active pulmonary disease She had a nuclear lung scan, which showed intermediate probability for pulmonary embolus, findings concordant with LI-RADS interpretation. She had extremity ultrasound to check clots in the legs, and it showed no stenographic evidence for DVT. She was seen by me. Rule out pulmonary embolism, endstage chronic obstructive pulmonary disease, severe pulmonary hypertension, coronary artery disease, chronic anemia. She is here in the hospital with multiple consults; Pulmonary, Renal, Cardio, also Interventional Radiologist as per family's request, which I possible pulmonary embolism. Nigel Wheeler DO MTDD
[2017-11-03 07:33] LABS: HEMOGLOBIN 9.2 g/dL (12.0-16.0); MEAN CELL VOLUME 95.1 fl (80.0-105.0); MEAN CORPUSCULAR HEMOGLOBIN 30.2 pg (25.0-35.0); MEAN CORPUSCULAR HGB CONC 31.7 g/dl (31.0-37.0); MEAN PLATELET VOLUME 10.3 fl (7.0-11.0); RBC 3.05 10^6/uL (3.5-6.1); RED CELL DISTRIBUTION WIDTH 15.5 % (11.5-14.5); WHITE BLOOD COUNT 6.7 10^3/ul (4.5-11.0)
[2017-11-03] MEDS: Insulin Reg-MEDIUM-Coverage SC SCH ×4 (07:49→22:41)
[2017-11-03 08:04] LABS: ALB/GLOB RATIO 1.4 (1.1-1.8); ALT/SGPT 46 U/L (7-56); AST/SGOT 24 U/L (14-36); BLOOD UREA NITROGEN 20 mg/dL (7-21); CALCIUM 9.6 mg/dL (8.4-10.5); GFR AFRICAN-AMERICAN > 60; GFR NON-AFRICAN AMERICAN > 60
--- NOTE | 2017-11-03 08:14 | HP ---
HISTORY OF PRESENT ILLNESS: I got a call from [facility] yesterday that her oxygen saturation was down to 84% on 4 L nasal cannula, so I sent her to the Emergency Room. Apparently the ER thought she was having a PE and we put her in the hospital. There was a V/Q scan which was saying possibility of a PE although clinically this morning, she is at 98% on 2 L and very comfortable. She is an 82-year-old female who was sent from the hospital to Subacute Rehab at [facility]. She was there for 24 hours. She had some low oxygen sat , sent to the ER. PAST MEDICAL HISTORY: CAD, status post stent; oxygen-dependent COPD; pulmonary hypertension; hypertension; high cholesterol; emphysema; osteoporosis; hypoxemia. She is very anxious due to her tremor, she gets shortness of breath, CHF, dizziness, cataracts, multiple falls, left wrist fracture, herniated disk, osteoarthritis, spinal stenosis, exploratory lap 2 inches above cholecystectomy, diverticulitis. She has incontinence of urine. FAMILY HISTORY: Unknown. SOCIAL HISTORY: Former smoker. No alcohol, no drugs. ALLERGIES: ALLERGIC TO CODEINE, HYDROMORPHONE AND MYOSINS. MEDICATIONS: She is on Lipitor, Plavix, Ranexa, aspirin, Dexilant, Ultram, Brovana, budesonide, Xopenex and family asked me to stop the Lasix. REVIEW OF SYSTEMS: She was short of breath, not short of breath now, comfortable now in the bed though shortness of breath, but she is on oxygen, now she is doing better at this time. No vision or hearing changes at all. chest pain or shortness of breath or abdominal pain. No extremity discomfort. PHYSICAL EXAMINATION: VITAL SIGNS: She has a 97.4 temp, 97 pulse, 12 respiratory rate, 114/50 blood pressure, 99% O2 sat on 2 L. GENERAL: She is well-appearing at this time. No shortness of breath, comfortable. HEENT: Head is atraumatic, normocephalic. Extraocular muscles are intact. Throat is moist. NECK: Supple. HEART: Regular rate, normal S1, S2. LUNGS: Decreased breath sounds, but no wheezes or rhonchi, no rales. ABDOMEN: Soft, nontender. Positive bowel sounds. No guarding, no rebound, no CVA tenderness. EXTREMITIES: With no edema. NEUROLOGIC: GCS is 15. Cranial nerves II through XII grossly intact. Alert and oriented x3. SKIN: Warm and dry. No apparent rashes or ulcers. Apparently there is a wound in the back, we will get the wound care nurse in charge of this. She has questionable PE. We are doing venous Doppler. I called in Pulmonary, Cardio and Renal. She has a history of renal insufficiency. She is currently on Caltrate, Dexilant, Ecotrin, heparin IV, Lipitor, MiraLax, nystatin, prednisone, budesonide, Ranexa, Ultram, vitamin B1, Xanax, Xopenex. LABORATORY DATA: She has a 130 sodium, potassium 4.6, BUN 25, creatinine 0.8, sugars 154, calcium is 9.1, total bili is 0.5, magnesium is 1.6, AST is 22, ALT is, alk phos 65, lactate dehydrogenase 281, troponin less than 0.01, BNP is 612. White count is 8, hemoglobin 10.1, hematocrit 31.5, platelets 190. We will have multiple consults, IV fluids, multiple antibiotics if needed, pulmonary toilet, heparin IV, rechecking the labs, oxygen and insulin coverage on Shahida Blackbunr with possible PE with shortness of breath, severe COPD, pulmonary hypertension. Nigel Wheeler DO MTDOfelia
[2017-11-03] MEDS: Budesonide 0.5 mg/2 ml Inhal Susp UD IH SCH ×2 (08:21→21:15)
--- NOTE | 2017-11-03 09:40 | PN ---
DATE: 11/03/2017 PULMONARY NOTE SUBJECTIVE: The patient appears very comfortable this morning. She is not short of breath at rest. PHYSICAL EXAMINATION: VITAL SIGNS: Temperature is 98.0, pulse 95, respirations 18, blood pressure 144/65. Oxygen saturation on nasal cannula is 100%. HEENT: Normocephalic, atraumatic. No JVD. CARDIOVASCULAR: Systolic ejection murmur at the lower left sternal border. No S3 gallop. LUNGS: Decreased breath sounds at the bases. Very minimal/less rhonchi. No wheezing. EXTREMITIES: Mild edema. No cyanosis, no clubbing. Calves are nontender to palpation. GASTROINTESTINAL: Abdomen is soft, nontender and nondistended. Bowel sounds are positive. SKIN: No acute rash. NEUROLOGIC: Exam limited at the present time. PERTINENT LABORATORY DATA: Extremity ultrasound was done yesterday and reviewed. There is no evidence for deep venous thrombosis in either lower extremity. IMPRESSION: 1. Rule out pulmonary embolism. 2. End-stage chronic obstructive pulmonary disease. 3. Severe pulmonary hypertension. 4. Coronary artery disease. 5. Chronic anemia. PLAN: Patient appears very comfortable this morning. She is not short of breath at rest. She does state to feeling much, much better overall. On physical exam, there is only minimal bronchospasm noted. In addition, the oxygen saturation on nasal cannula is 100%. I did review the leg studies-- as above. There is no evidence for deep venous thrombosis. The clinical picture/history, including the leg studies, is probably not consistent with an acute pulmonary embolism. In addition, the patient does remain on multiple anticoagulants - including Plavix and Ecotrin. Lastly, the patient does have a significant history of frequent falls. Thus, long-term anticoagulation is extremely problematic. I will discuss the possible discontinuation of heparin with Dr. Wheeler later this morning. Clinical status of the patient is significantly improved - compared to the initial presentation. Evgeny Briggs MD MTDD
--- NOTE | 2017-11-03 10:00 | RAD ---
PROCEDURE: Left Wrist Radiographs. HISTORY: history of left wrist fracture COMPARISON: Left wrist radiographs 09/24/2017 and 09/13/2017. FINDINGS: BONES: An impacted Colles fracture involving the distal left radius is appreciated but appears spared added intermediate stage of healing. The cast has been removed in the interval which previously obscured the bones of the left wrist. No new interval fracture is grossly appreciable. Callus formation is appreciated at the distal radial fracture site. Limited dorsal angulation of the distal radius fracture is again evident. No definite carpal bone fracture is identified including the navicular bone. JOINTS: Degenerative changes seen throughout the carpal carpal and carpometacarpal articulations and minimally affects the radiocarpal joints as well. No dislocation or subluxation apparent. SOFT TISSUES: Normal. OTHER FINDINGS: None. IMPRESSION: Fracture of the distal radius is appreciated with residual deformity again evident, appearing at an intermediate stage of healing. No new fracture is identified there is no dislocation. No carpal bone fractures identified at this time. No subluxation or dislocation
[2017-11-03] MEDS: Thiamine 100 mg/ml Inj IM SCH (10:16)
[2017-11-03] MEDS: Magnesium Oxide 400 mg Tab UD PO SCH ×2 (10:18→17:14)
[2017-11-03] MEDS: Pantoprazole 40 mg EC Tab PO SCH (10:18)
[2017-11-03] MEDS ORDERED: Heparin25000 units/250ml 1/2NS 25,000 UNITS/250 ML BAG IV PRN (10:19)
[2017-11-03] MEDS: POLYETHYLENE GLYCOL 3350 17 GM/Dose PACKET PO SCH (10:21)
[2017-11-03] MEDS: RANOLAZINE 1000 MG PO SCH ×2 (10:24→17:15)
[2017-11-03] MEDS: Sildenafil 20 MG TAB PO SCH ×2 (10:24→17:14)
--- NOTE | 2017-11-03 12:55 | PN ---
DATE: 11/03/2017 CARDIOLOGY FOLLOWUP SUBJECTIVE: Patient is comfortable in bed. No shortness of breath, no chest pain. PHYSICAL EXAMINATION: VITAL SIGNS: Blood pressure is 144/65, heart rate in the 90s. NECK: Negative JVD. LUNGS: Without rales. HEART: S1, S2. EXTREMITIES: Without edema. LABORATORY DATA: Hemoglobin is 9.2. Chemistries, BUN and creatinine are unremarkable. IMPRESSION: 1. Chronic obstructive lung disease. 2. Stable angina. 3. Coronary artery disease. 4. Diabetes mellitus. 5. Pulmonary hypertension. 6. V/Q scan that was abnormal. The patient clinically does not appear to have a pulmonary embolism. I have discussed this with the patient. The patient is now agreeable to have a spiral CT scan to rule out a pulmonary embolism. We will pretreat her with a dose of steroids as well as Benadryl to help her with her reactions to her contrast injection. Harrison Echavarria MD
[2017-11-03] MEDS ORDERED: DiphenhydrAMINE 50 mg/ml Inj IVP ONE (13:00)
[2017-11-03] MEDS ORDERED: Iodixanol 320 MG/ML 100 ML BOTTLE IV ONE (13:24)
[2017-11-03] MEDS ORDERED: Alum-Mag Hydrox-Simethicone Susp (30 mL) PO STA (13:29)
--- NOTE | 2017-11-03 13:58 | PN ---
DATE: SUBJECTIVE: The patient is resting comfortably in bed. She is doing quite well. She is feeling well. No shortness of breath, no chest pain. She is definitely improving. She has an order for a CT angio to make sure that she does not have a pulmonary embolus. Cardio and Pulmonary do not think she has, was read by the radiologist. She is eating well. OBJECTIVE: VITAL SIGNS: She has 98 temp, 95 pulse, 144/65 blood pressure, 20 respiratory rate, and 100% O2 sat on nasal cannula. HEENT: Head is atraumatic, normocephalic. HEART: Regular rate. LUNGS: Decreased breath sounds, but clear to auscultation bilaterally. No wheezing. No rhonchi. No rales. ABDOMEN: Soft. EXTREMITIES: No edema. She looks quite well. Oxygen sat is 100%. CURRENT MEDICATIONS: She is currently on Benadryl, Caltrate, Ecotrin, heparin until CT angio comes back, Lipitor, magnesium oxide, MiraLax, nystatin, prednisone, Protonix, Pulmicort, Renexa, Revatio, Ultram, vitamin B1, Xanax, Xopenex. LABORATORY DATA: She has a 6.7 white count, 9.2 hemoglobin, 29 hematocrit with 201 platelets. She has a 133 sodium, potassium is 4.7, BUN 20, creatinine 0.7, GFR is greater than 60, sugar is 99, calcium is 9.6. AST is 24, ALT is 46, alkaline phosphatase is 64, total bilirubin is 0.4. Urine is clean. She has been seen by Pulmonary. She had a wrist x-ray done. Ultrasound of her legs were negative. No new fracture was identified on this location, still with a fracture of the distal radius of the wrist has been seen by Renal, Cardio, Pulmonary, Interventional Radiologist, GI. ASSESSMENT AND PLAN: She has a pressure ulcer on her coccyx, chronic obstructive pulmonary disease, pulmonary hypertension, congestive heart failure, and rule out pulmonary embolism. Nigel Wheeler DO MTD
--- NOTE | 2017-11-03 16:28 | CT ---
PROCEDURE: CT Chest with contrast (Pulmonary Angiogram) HISTORY: r/o PE COMPARISON: Unenhanced chest CT 09/21/2017. TECHNIQUE: Axial computed tomography images were obtained of the chest in the pulmonary arterial phase of enhancement. Coronal and sagittal reformatted images were created and reviewed. Intravenous contrast dose: Visipaque 320, 100 cc Radiation dose: Total exam DLP = 401.47 mGy-cm. This CT exam was performed using one or more of the following dose reduction techniques: Automated exposure control, adjustment of the mA and/or kV according to patient size, and/or use of iterative reconstruction technique. FINDINGS: PULMONARY ARTERIES: No pulmonary embolism. There is persistent dilatation of the main pulmonary artery segment which measures 4.2 cm compatible with pulmonary artery hypertension. AORTA: No acute findings. No thoracic aortic aneurysm. LUNGS: Advanced centrilobular emphysematous changes are again appreciated diffusely, apical predominant without interval infiltrates bilaterally. Interval linear atelectasis is minimally captured at the right base posterior laterally. PLEURAL SPACES: Unremarkable. No effusion or pneuomothorax. HEART: Unremarkable. No cardiomegaly. No significant pericardial effusion. LYMPH NODES: No lymphadenopathy. BONES, CHEST WALL: No interval fracture identified. Vertebroplasty again appreciate an inferior thoracic vertebral body with a stable [id number] vertebral body fracture again evident. OTHER FINDINGS: A moderate hiatal hernia is again appreciated though slightly reduced in the interval. IMPRESSION: 1. No definite pulmonary embolus identified. 2. Reiterated pulmonary artery hypertension. 3. Extensive COPD again noted diffusely, apical predominant, but without interval infiltrate or pneumothorax. 4. [id number] hiatal hernia slightly reduced in the interval.
--- NOTE | 2017-11-03 17:33 | CP.PCM.CON ---
History of Present Illness - History of Present Illness History of Present Illness: CC: SOB HPI: 82 year old female with h/o CAD s/p stents, Emphysema on home O2, Pulm HTN , HLD, HTN who presents with hypoxia. She reports a history of frequent heartburn and acid reflux. Sypmtoms are improved with PPI. She denies dysphagia , nausea, vomiting. She denies any blood in the stool or melena. She reports a h /o colonoscopy/endoscopy 2 years ago. She reports mild constipation and straining. She is getting evaluated in the hospital for PE. She is on heparin currently. She denies chest pain. No fever. PMHx CAD, COPD, Pulm HTN, HTN, HLD FHx no family history of gi cancer SHx denie etoh/drugs, +h/o smoking ROS A comprehensive review of systems was performed and was negative apart from HPI Past Patient History - Infectious Disease Hx of Infectious Diseases: None - Tetanus Immunizations Tetanus Immunization: Unknown - Past Medical History & Family History Past Medical History?: Yes - Past Social History Smoking Status: Former Smoker - CARDIAC Hx Congestive Heart Failure: Yes Hx Hypertension: Yes - PULMONARY Hx Chronic Obstructive Pulmonary Disease (COPD): Yes Hx Pneumonia: Yes - NEUROLOGICAL Hx Neurological Disorder: Yes Hx Dizziness: Yes - HEENT Hx HEENT Problems: Yes Hx Cataracts: Yes - RENAL Hx Chronic Kidney Disease: No - ENDOCRINE/METABOLIC Hx Endocrine Disorders: No - HEMATOLOGICAL/ONCOLOGICAL Hx Anemia: Yes - INTEGUMENTARY Hx Dermatological Problems: No - MUSCULOSKELETAL/RHEUMATOLOGICAL Hx Falls: Yes - GASTROINTESTINAL Hx Gastrointestinal Disorders: Yes (exploratry lap with 2 inches of bowel resected) Hx Diverticulitis: Yes Hx Gall Bladder Disease: Yes (CHLOECYSTECTOMY) - GENITOURINARY/GYNECOLOGICAL Hx Genitourinary Disorders: Yes Hx Incontinence: Yes Hx Urinary Tract Infection: Yes - PSYCHIATRIC Hx Substance Use: No - SURGICAL HISTORY Hx Appendectomy: Yes Hx Cardiac Catheterization: Yes Hx Cholecystectomy: Yes Hx Coronary Stent: Yes - ANESTHESIA Hx Anesthesia: Yes Hx Anesthesia Reactions: No Hx Malignant Hyperthermia: No Meds Allergies/Adverse Reactions: Allergies Allergy/AdvReac Type Severity Reaction Status Date / Time codeine AdvReac VOMITING Verified 10/02/17 16:13 hydromorphone HCl AdvReac VOMITING Verified 10/02/17 16:13 [From Dilaudid] MYOCINS AdvReac VOMITING Uncoded 10/02/17 16:13 - Medications Medications: Current Medications Alprazolam (Xanax) 0.25 mg PO Q8 PRN; Protocol PRN Reason: Anxiety Stop: 11/09/17 08:08 Last Admin: 11/03/17 13:45 Dose: 0.25 mg Aspirin (Ecotrin) 81 mg PO DAILY [facility] Last Admin: 11/03/17 10:18 Dose: 81 mg Atorvastatin Calcium (Lipitor) 10 mg PO DAILY [facility] Last Admin: 11/03/17 10:18 Dose: 10 mg Budesonide (Pulmicort Respules) 0.5 mg IH [id number] [facility] Last Admin: 11/03/17 08:21 Dose: 0.5 mg Calcium Carbonate (Caltrate) 600 mg PO DAILY [facility] Last Admin: 11/03/17 10:18 Dose: 600 mg Clopidogrel Bisulfate (Plavix) 75 mg PO DAILY [facility] Last Admin: 11/03/17 12:46 Dose: 75 mg Heparin Sodium/Sodium Chloride (Heparin 59986 Units/250ml 1/2 Normal Saline) 25 ,000 units in 250 mls @ 11.978 mls/hr IV .[id number] PRN; Protocol; 18 UNITS/KG/HR PRN Reason: ADJUST RATE PER PROTOCOL Last Admin: 11/03/17 12:44 Dose: 18 units/kg/hr, 11.978 mls/hr Insulin Human Regular (Humulin R Med) 0 units SC ACHS [facility] PRN Reason: Protocol Last Admin: 11/03/17 17:14 Dose: 3 units Levalbuterol HCl (Xopenex) 1.25 mg IH [id number] [facility] Last Admin: 11/03/17 14:05 Dose: 1.25 mg Levalbuterol HCl (Xopenex) 1.25 mg IH Q2 PRN PRN Reason: Shortness of Breath Magnesium Oxide (Mag-Ox) 400 mg PO BID [facility] Last Admin: 11/03/17 17:14 Dose: 400 mg Ranolazine [Ranexa] 1,000 Mg (Home Med) 1,000 mg PO BID [facility] Last Admin: 11/03/17 17:15 Dose: Not Given Nystatin (Nystatin Oral Susp) 5 ml PO 5XD [facility] Last Admin: 11/03/17 17:14 Dose: 5 ml Pantoprazole Sodium (Protonix Ec Tab) 40 mg PO DAILY [facility] Last Admin: 11/03/17 10:18 Dose: 40 mg Polyethylene Glycol (Miralax) 17 gm PO DAILY [facility] Last Admin: 11/03/17 10:21 Dose: 17 gm Prednisone (Prednisone Tab) 10 mg PO DAILY [facility] Last Admin: 11/03/17 10:18 Dose: 10 mg Sildenafil Citrate (Revatio) 20 mg PO BID [facility] Last Admin: 11/03/17 17:14 Dose: 20 mg Thiamine HCl (Vitamin B1 Inj) 100 mg IM DAILY [facility] Last Admin: 11/03/17 10:16 Dose: 100 mg Tramadol HCl (Ultram) 50 mg PO TID PRN PRN Reason: Pain, moderate (4-7) Physical Exam - Constitutional Appears: No Acute Distress, Chronically Ill - Head Exam Head Exam: ATRAUMATIC, NORMOCEPHALIC - Eye Exam Eye Exam: Normal appearance, PERRL. absent: Scleral icterus - ENT Exam ENT Exam: Mucous Membranes Moist, Normal Oropharynx - Neck Exam Neck exam: Negative for: Lymphadenopathy, Thyromegaly - Respiratory Exam Respiratory Exam: Rhonchi, Wheezes, NORMAL BREATHING PATTERN - Cardiovascular Exam Cardiovascular Exam: REGULAR RHYTHM, +S1, +S2 - GI/Abdominal Exam GI & Abdominal Exam: Soft. absent: Distended, Firm, Guarding, Tenderness - Extremities Exam Extremities exam: Positive for: normal capillary refill - Neurological Exam Neurological exam: Alert, Oriented x3 - Psychiatric Exam Psychiatric exam: Normal Affect, Normal Mood - Skin Skin Exam: Warm Additional comments: echymoses Results - Vital Signs Recent Vital Signs: Last Vital Signs Temp 98.4 F 11/03/17 12:00 Pulse 98 H 11/03/17 12:00 Resp 20 11/03/17 12:00 BP 196/62 H 11/03/17 12:00 Pulse Ox 95 11/03/17 09:00 - Labs Result Diagrams: 11/03/17 06:30 11/03/17 06:30 Labs: Laboratory Results - last 24 hr 11/02/17 11/02/17 11/03/17 16:59 21:23 00:30 WBC RBC Hgb Hct MCV MCH MCHC RDW Plt Count MPV APTT 119.5 H* 76.2 H Sodium Potassium Chloride Carbon Dioxide Anion Gap BUN Creatinine Est GFR ( Amer) Est GFR (Non-Af Amer) POC Glucose (mg/dL) 141 H Random Glucose Calcium Total Bilirubin AST ALT Alkaline Phosphatase Total Protein Albumin Globulin Albumin/Globulin Ratio 11/03/17 11/03/17 11/03/17 06:30 06:30 06:30 WBC 6.7 RBC 3.05 L Hgb 9.2 L Hct 29.0 L MCV 95.1 MCH 30.2 MCHC 31.7 RDW 15.5 H Plt Count 201 MPV 10.3 APTT 79.3 H Sodium 133 Potassium 4.7 Chloride 92 L Carbon Dioxide 38 H Anion Gap 8 L BUN 20 Creatinine 0.7 Est GFR ( Amer) > 60 Est GFR (Non-Af Amer) > 60 POC Glucose (mg/dL) Random Glucose 91 Calcium 9.6 Total Bilirubin 0.4 AST 24 ALT 46 Alkaline Phosphatase 64 Total Protein 5.2 L Albumin 3.0 Globulin 2.2 Albumin/Globulin Ratio 1.4 11/03/17 11/03/17 11/03/17 07:28 11:14 13:25 WBC RBC Hgb Hct MCV MCH MCHC RDW Plt Count MPV APTT 31.3 Sodium Potassium Chloride Carbon Dioxide Anion Gap BUN Creatinine Est GFR ( Amer) Est GFR (Non-Af Amer) POC Glucose (mg/dL) 99 125 H Random Glucose Calcium Total Bilirubin AST ALT Alkaline Phosphatase Total Protein Albumin Globulin Albumin/Globulin Ratio Assessment & Plan - Assessment and Plan (Free Text) Assessment: 82 year old female with h/o severe cardiopulmonary disease including CAD s/p stents, oxygen dependent emphysema, and pulmonary hyptension admitted with SOB, also with chronic anemia. 1. GERD 2. Anemia 3. Hiatal hernia 4. Chronic constipation Plan: -recommend protonix 40 mg po daily for GERD symptoms -no evidence of active GI bleeding -chronic normocytic anemia, recent ferritin was 108, no iron deficiency -she does have recent B12 deficiency, suggest replacement -no need for transfusion at this point -imaging shows a hiatal hernia -heparin has been discontinued and CT negative for PE -she reports h/o colonoscopy a couple years ago, unavailable -egd from 2016 showed hiatal hernia and erosive gastritis -would treat supportively for now -no indication for urgent inpatient endoscopy/colonoscopy -may consider elective colonoscopy at some point, although questionable benefit considering age and comorbidities - Date & Time Date: 11/03/17 Time: 17:33
--- NOTE | 2017-11-03 18:51 | CON ---
DATE: 11/03/2017 ORTHOPEDIC CONSULTATION HISTORY OF PRESENT ILLNESS: The patient came in to the hospital on 11/01/2017 when they admitted for medical reason, but orthopedically she has a healing fracture of left distal radius, so I saw her in the emergency room back 09/25/2017, put her in a cast for displaced left distal radius fracture. The fracture is healing well. It is an acceptable position, not actually anatomic, but compatible for someone that is 82 years old, so does not need surgery, but it healed well and we just had to start gentle range of motion and improve her strength and she could chose even a splint to use while she is walking with a walker, but in bed she does not need a wrist immobilizer. As the fracture has good healing and good bone, she is complaining of mild stiffness around the radioulnar joint, which will subsided with use, there is no need for surgery and I just gave her physical therapy of the left wrist and when she is discharged, I will follow her as an outpatient. FINAL DIAGNOSIS: Healing fracture of left distal radius that was doing well and she has continued to do well with therapy. Tal Heaton DO
[2017-11-04] MEDS: Levalbuterol 1.25 MG/3 ML Inhal Soln UD IH SCH ×4 (02:18→20:41)
--- NOTE | 2017-11-04 05:42 | CP.PCM.PN ---
<Gadiel Vila - Last Filed: 11/04/17 12:25> Subjective - Date & Time of Evaluation Date of Evaluation: 11/04/17 Time of Evaluation: 05:38 - Subjective Subjective: GI progress note for Dr. William Vila PGY2 Reason for consult: anemia Patient seen and examined at bedside this morning. No acute overnight events or new complaints reported. Patient denies any abdominal pain, nausea, vomiting, hematochezia, melena, hematemesis. Tolerating diet without issue. Heparin drip has been discontinued. CTA negative for PE. Recommended follow up as an outpatient for colonoscopy. 12point ROS as per above otherwise negative Objective - Vital Signs/Intake and Output Vital Signs (last 24 hours): Temp Pulse Resp BP Pulse Ox 97 F L 93 H 18 100/51 L 98 11/04/17 00:01 11/04/17 02:00 11/04/17 00:01 11/04/17 00:01 11/04/17 00:01 Intake and Output: 11/03/17 11/04/17 18:59 06:59 Output Total 400 Balance -400 - Medications Medications: Current Medications Alprazolam (Xanax) 0.25 mg PO Q8 PRN; Protocol PRN Reason: Anxiety Stop: 11/09/17 08:08 Last Admin: 11/03/17 13:45 Dose: 0.25 mg Aspirin (Ecotrin) 81 mg PO DAILY [facility] Last Admin: 11/03/17 10:18 Dose: 81 mg Atorvastatin Calcium (Lipitor) 10 mg PO DAILY [facility] Last Admin: 11/03/17 10:18 Dose: 10 mg Budesonide (Pulmicort Respules) 0.5 mg IH [id number] [facility] Last Admin: 11/03/17 21:15 Dose: 0.5 mg Calcium Carbonate (Caltrate) 600 mg PO DAILY [facility] Last Admin: 11/03/17 10:18 Dose: 600 mg Clopidogrel Bisulfate (Plavix) 75 mg PO DAILY [facility] Last Admin: 11/03/17 12:46 Dose: 75 mg Insulin Human Regular (Humulin R Med) 0 units SC ACHS [facility] PRN Reason: Protocol Last Admin: 11/03/17 22:41 Dose: Not Given Levalbuterol HCl (Xopenex) 1.25 mg IH [id number] [facility] Last Admin: 11/04/17 02:18 Dose: 1.25 mg Levalbuterol HCl (Xopenex) 1.25 mg IH Q2 PRN PRN Reason: Shortness of Breath Magnesium Oxide (Mag-Ox) 400 mg PO BID [facility] Last Admin: 11/03/17 17:14 Dose: 400 mg Ranolazine [Ranexa] 1,000 Mg (Home Med) 1,000 mg PO BID [facility] Last Admin: 11/03/17 17:15 Dose: Not Given Nystatin (Nystatin Oral Susp) 5 ml PO 5XD [facility] Last Admin: 11/03/17 21:18 Dose: 5 ml Pantoprazole Sodium (Protonix Ec Tab) 40 mg PO DAILY [facility] Last Admin: 11/03/17 10:18 Dose: 40 mg Polyethylene Glycol (Miralax) 17 gm PO DAILY [facility] Last Admin: 11/03/17 10:21 Dose: 17 gm Prednisone (Prednisone Tab) 10 mg PO DAILY [facility] Last Admin: 11/03/17 10:18 Dose: 10 mg Sildenafil Citrate (Revatio) 20 mg PO BID [facility] Last Admin: 11/03/17 17:14 Dose: 20 mg Thiamine HCl (Vitamin B1 Inj) 100 mg IM DAILY [facility] Last Admin: 11/03/17 10:16 Dose: 100 mg Tramadol HCl (Ultram) 50 mg PO TID PRN PRN Reason: Pain, moderate (4-7) - Labs Labs: 11/03/17 06:30 11/03/17 06:30 PT 11.4 SECONDS (9.4-12.5) 11/01/17 14:00 INR 1.00 (0.93-1.08) 11/01/17 14:00 APTT 31.3 Seconds (25.1-36.5) 11/03/17 13:25 - Constitutional Appears: Chronically Ill - Head Exam Head Exam: ATRAUMATIC, NORMAL INSPECTION, NORMOCEPHALIC - Eye Exam Eye Exam: EOMI, PERRL - ENT Exam ENT Exam: Mucous Membranes Moist - Respiratory Exam Respiratory Exam: Wheezes. absent: Accessory Muscle Use, Clear to Ausculation Bilateral, Rales, Rhonchi - Cardiovascular Exam Cardiovascular Exam: +S1, +S2. absent: Clicks, Gallop, Rubs - GI/Abdominal Exam GI & Abdominal Exam: Soft. absent: Distended, Firm, Guarding, Rigid, Tenderness , Rebound Additional comments: no hepatosplenomegaly - Extremities Exam Extremities Exam: absent: Pedal Edema - Neurological Exam Neurological Exam: Alert, Awake, Oriented x3 - Psychiatric Exam Psychiatric exam: Normal Affect, Normal Mood - Skin Skin Exam: Dry, Intact, Normal Color, Warm Assessment and Plan - Assessment and Plan (Free Text) Plan: 82yo female with history of COPD on home oxygen, CAD s/p stents, pulmonary hypertension, hyperlipidemia admitted admitted for hypoxia. GI consulted for evaluation of anemia. 1. GERD 2. Anemia 3. Hiatal hernia 4. Chronic constipation 5. COPD 6. Pulmonary hypertension Plan: -Continue protonix 40 mg po daily -No overt signs of GI bleed -Chronic normocytic anemia likely secondary to B12 deficiency and anemia of chronic disease -No indications for transfusion at this time -Recommend follow up as an outpatient for colonoscopy -EGD from 01/2016 revealed hiatal hernia, erosive gastritis and short segment barrets esophagus -No indication for urgent inpatient endoscopy/colonoscopy Patient seen and case discussed/reviewed with Dr. Thomas <Bruno Thomas - Last Filed: 11/04/17 13:02> Objective - Vital Signs/Intake and Output Vital Signs (last 24 hours): Temp Pulse Resp BP Pulse Ox 97.5 F L 90 19 125/70 100 11/04/17 06:00 11/04/17 06:00 11/04/17 06:00 11/04/17 06:00 11/04/17 06:00 Intake and Output: 11/04/17 11/04/17 06:59 18:59 Intake Total 2480 Output Total 3050 Balance -570 - Medications Medications: Current Medications Alprazolam (Xanax) 0.25 mg PO Q8 PRN; Protocol PRN Reason: Anxiety Stop: 11/09/17 08:08 Last Admin: 11/04/17 09:10 Dose: 0.25 mg Aspirin (Ecotrin) 81 mg PO DAILY [facility] Last Admin: 11/04/17 09:11 Dose: 81 mg Atorvastatin Calcium (Lipitor) 10 mg PO DAILY [facility] Last Admin: 11/04/17 09:10 Dose: 10 mg Budesonide (Pulmicort Respules) 0.5 mg IH [id number] [facility] Last Admin: 11/04/17 07:34 Dose: 0.5 mg Calcium Carbonate (Caltrate) 600 mg PO DAILY [facility] Last Admin: 11/04/17 09:10 Dose: 600 mg Clopidogrel Bisulfate (Plavix) 75 mg PO DAILY [facility] Last Admin: 11/04/17 09:10 Dose: 75 mg Insulin Human Regular (Humulin R Med) 0 units SC ACHS [facility] PRN Reason: Protocol Last Admin: 11/04/17 08:57 Dose: Not Given Levalbuterol HCl (Xopenex) 1.25 mg IH [id number] [facility] Last Admin: 11/04/17 07:34 Dose: 1.25 mg Levalbuterol HCl (Xopenex) 1.25 mg IH Q2 PRN PRN Reason: Shortness of Breath Magnesium Oxide (Mag-Ox) 400 mg PO BID [facility] Last Admin: 11/04/17 09:10 Dose: 400 mg Ranolazine [Ranexa] 1,000 Mg (Home Med) 1,000 mg PO BID [facility] Last Admin: 11/04/17 09:11 Dose: Not Given Nystatin (Nystatin Oral Susp) 5 ml PO 5XD [facility] Last Admin: 11/04/17 09:10 Dose: 5 ml Pantoprazole Sodium (Protonix Ec Tab) 40 mg PO DAILY [facility] Last Admin: 11/04/17 09:10 Dose: 40 mg Polyethylene Glycol (Miralax) 17 gm PO DAILY [facility] Last Admin: 11/04/17 09:11 Dose: 17 gm Prednisone (Prednisone Tab) 10 mg PO DAILY [facility] Last Admin: 11/04/17 09:10 Dose: 10 mg Sildenafil Citrate (Revatio) 20 mg PO BID [facility] Last Admin: 11/04/17 09:11 Dose: 20 mg Thiamine HCl (Vitamin B1 Inj) 100 mg IM DAILY [facility] Last Admin: 11/04/17 09:18 Dose: Not Given Tramadol HCl (Ultram) 50 mg PO TID PRN PRN Reason: Pain, moderate (4-7) Last Admin: 11/04/17 11:45 Dose: 50 mg - Labs Labs: 11/04/17 06:30 11/04/17 06:30 PT 11.4 SECONDS (9.4-12.5) 11/01/17 14:00 INR 1.00 (0.93-1.08) 11/01/17 14:00 APTT 31.3 Seconds (25.1-36.5) 11/03/17 13:25 Attending/Attestation - Attestation I have personally seen and examined this patient.: Yes I have fully participated in the care of the patient.: Yes I have reviewed all pertinent clinical information, including history, physical exam and plan: Yes Notes (Text): 11/04/17 12:58 I have seen and examined patient with certified medical transcriptionist. She is seen sitting in chair beside bed and appears comfortable. She denies abdominal pain, nausea, vomiting, fever/chills. Tolerating PO diet without difficulty. She had a normal bowel movement this morning without presence of rectal bleeding. Review of vitals from today shows tachycardia. Dyspnea, acute COPD exacerbation on home oxygen CAD s/p stent Pulmonary HTN Anemia, chronic disease - Diet as tolerated - H/H stable, no overt blood loss noted, continue to monitor - Continue with PPI therapy for time being - Given acute pulmonary issues, would defer any endoscopic workup at this time. When symptoms have improved, patient would benefit from colonoscopy evaluation given presence of anemia along with EGD follow up of previously diagnosed kirkpatrikc's esophagus. Patient planned for discharge to rehab facility today, will sign off case. Please reconsult as necessary. Discussed with Dr. Wheeler.
[2017-11-04] MEDS: Nystatin 100,000 Units/ml Oral Susp 5 ml UD PO SCH ×5 (05:55→21:24)
[2017-11-04 07:13] LABS: HEMOGLOBIN 8.3 g/dL (12.0-16.0); MEAN CORPUSCULAR HEMOGLOBIN 30.2 pg (25.0-35.0); MEAN CORPUSCULAR HGB CONC 31.4 g/dl (31.0-37.0); MEAN PLATELET VOLUME 10.6 fl (7.0-11.0); RBC 2.75 10^6/uL (3.5-6.1); RED CELL DISTRIBUTION WIDTH 15.9 % (11.5-14.5); WHITE BLOOD COUNT 7.3 10^3/ul (4.5-11.0)
[2017-11-04] MEDS: Budesonide 0.5 mg/2 ml Inhal Susp UD IH SCH ×2 (07:34→20:41)
[2017-11-04 07:36] LABS: ALB/GLOB RATIO 1.3 (1.1-1.8); ALBUMIN 2.7 g/dL (3.0-4.8); ALT/SGPT 37 U/L (7-56); AST/SGOT 20 U/L (14-36); BLOOD UREA NITROGEN 21 mg/dL (7-21); CALCIUM 9.3 mg/dL (8.4-10.5); GFR AFRICAN-AMERICAN > 60; GFR NON-AFRICAN AMERICAN > 60
[2017-11-04] MEDS: Insulin Reg-MEDIUM-Coverage SC SCH ×4 (08:57→21:25)
--- NOTE | 2017-11-04 09:03 | PN ---
DATE: 11/04/2017 PULMONARY NOTE SUBJECTIVE: The patient appears very comfortable this morning. She is not short of breath at rest. PHYSICAL EXAMINATION VITAL SIGNS: Temperature is 97.5, pulse is 90, respirations 19, blood pressure 125/70. Oxygen saturation on nasal cannula is 100%. HEENT: Normocephalic, atraumatic. No JVD. CARDIOVASCULAR: Systolic ejection murmur at the lower left sternal border. No S3 gallop. LUNGS: Decreased breath sounds at the bases. Very minimal rhonchi. No wheezing. EXTREMITIES: Mild edema. No cyanosis, no clubbing. Calves are nontender to palpation. GI: Abdomen is soft, nontender and nondistended. Bowel sounds are positive. SKIN: No acute rash. NEUROLOGIC: Limited at the present time. PERTINENT LABORATORY DATA: CAT scan of the chest was done as an angiogram protocol yesterday. There is no pulmonary embolism seen. There are extensive chronic changes consistent with chronic obstructive pulmonary disease. There are no acute infiltrates. There is no lymphadenopathy. IMPRESSION: 1. Rule out pulmonary embolism - ruled out. 2. End-stage chronic obstructive pulmonary disease. 3. Severe pulmonary hypertension. 4. Coronary artery disease. 5. Chronic anemia. PLAN: The patient appears very comfortable this morning. She is not short of breath at rest. She does state to feeling much, much better overall. On physical exam, there is only minimal bronchospasm noted. In addition, the oxygen saturation on nasal cannula is 100%. I will continue the current nebulizer treatments and low-dose oral steroids for now. I will also continue the patient on her Revatio - for her pulmonary hypertension. I did review the CAT scan of the chest - as above. There is no evidence of pulmonary embolism. There are no acute findings. The heparin has been discontinued. Inputs by Cardiology and GI are noted. Clinical status of the patient is significantly improved - compared to the initial presentation. However, unfortunately, the future status/prognosis for this deisy patient does remain poor. All are aware. I did discuss the above with Dr. Wheeler. Evgeny Briggs MD [facility] # [id number] [facility]TDOf[facility]
[2017-11-04] MEDS: Magnesium Oxide 400 mg Tab UD PO SCH ×2 (09:10→17:44)
[2017-11-04] MEDS: Pantoprazole 40 mg EC Tab PO SCH (09:10)
[2017-11-04] MEDS: Thiamine 100 mg/ml Inj IM SCH ×2 (09:11→09:18)
[2017-11-04] MEDS: RANOLAZINE 1000 MG PO SCH ×2 (09:11→17:53)
[2017-11-04] MEDS: Sildenafil 20 MG TAB PO SCH ×2 (09:11→17:45)
[2017-11-04] MEDS: POLYETHYLENE GLYCOL 3350 17 GM/Dose PACKET PO SCH (09:11)
--- NOTE | 2017-11-04 09:48 | CARD ---
APPROVED REPORT EKG Measurement Heart [id number] <Conclusion> Sinus tachycardia No change except the rate is faster
--- NOTE | 2017-11-04 14:07 | PN ---
DATE: 11/04/2017 CARDIOLOGY FOLLOWUP SUBJECTIVE: The patient is feeling well. No shortness of breath noted. PHYSICAL EXAMINATION VITAL SIGNS: Blood pressure is 125/70, heart rates in the 90s. NECK: Negative JVD. LUNGS: Without rales. HEART: Reveal S1 and S2. EXTREMITIES: Without edema. LABORATORY DATA: Glucose is 219. BUN and creatinine are unremarkable. CT scan shows no pulmonary embolism. IMPRESSION: 1. Congestive heart failure, which is now resolved. 2. Diabetes mellitus. 3. Stable angina. 4. Chronic obstructive pulmonary disease. 5. Pulmonary hypertension. PLAN: Given these findings, anticoagulation has been discontinued. We will discontinue telemetry today. The patient wants to go home. From a cardiac perspective, the patient can do so. The patient has been and taking care of herself for several years now. She does not want to go to a rehab facility. Harrison Echavarria MD
[2017-11-05] MEDS: Levalbuterol 1.25 MG/3 ML Inhal Soln UD IH SCH ×4 (00:59→20:22)
--- NOTE | 2017-11-05 05:15 | DS ---
HISTORY OF PRESENT ILLNESS: I saw her resting comfortably in bed. She is in good spirits. She is hungry. She is trying to do physical therapy. She wants to get stronger. She has no chest pain or shortness of breath. She is quite comfortable. She is on Benadryl, Caltrate, Ecotrin, insulin, Lipitor, Maalox, magnesium oxide, MiraLax nystatin, Pepcid, Plavix, Prednisone, Pulmicort, Ranexa, Revatio, Ultram, Vitamin B1, Xanax, Xopenex. PHYSICAL EXAMINATION: VITAL SIGNS: She has a 97.5 temperature, 90 pulse, 125/70 blood pressure, 19 respiratory rate, and 100% O2 saturation. GENERA: She is very alert, quiet, calm, feels better. No shortness of breath, no chest pain. HEENT: Head is atraumatic, normocephalic. Throat is moist. NECK: Supple. HEART: Regular rate. LUNGS: Decreased breath sounds, clear to auscultation. No wheezing, no rhonchi, no rales. ABDOMEN: Soft, nontender, positive bowel sounds. EXTREMITIES: No edema. LABORATORY DATA: She has a 7.3 white count, 8.3 hemoglobin, 26.4 hematocrit with 177 platelets. We will keep an eye on her hemoglobin at the [facility]. She has a 135 sodium, potassium 4.7, BUN 21, creatinine 0.8, GFR is greater than 60, sugar is 98, calcium is 9.3, total bilirubin is 0.3, AST is 20, ALT is 37, alkaline phosphatase 57. Urine was clean. IMPRESSION AND PLAN: She is being seen by numerous doctors. She also had a CAT scan and angio of the chest to make sure that she did not have pulmonary embolus, which was called on the VQ scan and this had no definite pulmonary embolus. She has pulmonary artery hypertension, extensive chronic obstructive pulmonary disease, hiatal hernia, so no pulmonary embolism. She is capable of being discharged back to [facility]. She was seen by numerous doctors GI, Cardio, Orthopedics, and Pulmonary. Everybody says that she could be going back to [facility] to continue physical therapy, so that is what we will do today. We will check her labs there and follow over there. Discharged back to [facility] subacute. Nigel Wheeler DO [facility] # [id number]
[2017-11-05] MEDS: Nystatin 100,000 Units/ml Oral Susp 5 ml UD PO SCH ×5 (05:16→22:06)
[2017-11-05] MEDS: Budesonide 0.5 mg/2 ml Inhal Susp UD IH SCH ×2 (07:40→20:22)
[2017-11-05] MEDS: Insulin Reg-MEDIUM-Coverage SC SCH ×4 (08:45→22:03)
--- NOTE | 2017-11-05 09:16 | PN ---
DATE: 11/05/2017 PULMONARY NOTE SUBJECTIVE: The patient appears comfortable this morning. She is not short of breath at rest. PHYSICAL EXAMINATION: VITAL SIGNS: Temperature is 97.3, pulse on the monitor is 94, respiratory rate 18, blood pressure 111/60. Oxygen saturation on nasal cannula is between 94-100%. HEENT: Normocephalic, atraumatic. No JVD. CARDIOVASCULAR: Systolic ejection murmur at the lower left sternal border. No S3 gallop. LUNGS: Decreased breath sounds at the bases. Very minimal rhonchi. No wheezing. EXTREMITIES: Less edema. No cyanosis. No clubbing. Calves are nontender to palpation. GI: Abdomen is soft, nontender and nondistended. Bowel sounds are positive. SKIN: No acute rash. NEUROLOGIC: Limited at the present time. IMPRESSION: 1. Rule out pulmonary embolism - ruled out. 2. End-stage chronic obstructive pulmonary disease. 3. Severe pulmonary hypertension. 4. Coronary artery disease. 5. Chronic anemia. PLAN: The patient appears very comfortable this morning. She is not short of breath at rest. She does state to feeling much better overall. On physical exam, there is no significant bronchospasm noted. In addition, there is no significant alveolar-arterial gradient. I will continue with the current nebulizer treatments and low-dose oral steroids for now. The patient remains on Revatio - for her pulmonary hypertension. Clinical status of the patient is significantly improved overall. Input by Dr. Echavarria is also noted. The patient is for discharge in the near future. I will discuss the above with Dr. Wheeler. Evgeny Briggs MD [facility]
[2017-11-05] MEDS: POLYETHYLENE GLYCOL 3350 17 GM/Dose PACKET PO SCH (09:32)
[2017-11-05] MEDS: Magnesium Oxide 400 mg Tab UD PO SCH ×2 (09:33→18:20)
[2017-11-05] MEDS: Pantoprazole 40 mg EC Tab PO SCH (09:35)
[2017-11-05] MEDS: Thiamine 100 mg/ml Inj IM SCH (09:35)
[2017-11-05] MEDS: Sildenafil 20 MG TAB PO SCH ×2 (09:35→18:21)
[2017-11-05] MEDS: RANOLAZINE 1000 MG PO SCH ×2 (09:44→18:14)
--- NOTE | 2017-11-05 13:35 | PN ---
DATE: SUBJECTIVE: I saw her resting comfortably in bed. She is very alert and happy. She is trying to eat well. She is in good spirits. No pain. No chest pain or shortness of breath. No abdominal pain. MEDICATIONS: She is on Caltrate, Ecotrin, insulin, Lipitor, magnesium, MiraLax, nystatin, Plavix, prednisone, Protonix, Pulmicort, Ranexa, Revatio, Ultram, vitamin B, Xanax and Xopenex. PHYSICAL EXAMINATION: VITAL SIGNS: 97.3 temperature, 104 pulse, 111/60 blood pressure, 18 respiratory rate, 94 to 100 O2 sat on nasal cannula. HEENT: Head is atraumatic, normocephalic. Throat is moist. NECK: Supple. NEUROLOGIC: Alert and oriented x3, very well smiling, happy, no pain, no problems. HEART: Regular rate. LUNGS: Decreased breath sounds, but clear to auscultation. No wheezes. No rhonchi. No rales. ABDOMEN: Soft, nontender. Positive bowel sounds. EXTREMITIES: No edema. LABORATORY DATA: She has a 7.3 white count, 8.3 hemoglobin, if it drops below 8, I will transfuse her, 177 platelets. Last blood sugar was 165. 135 sodium, potassium is 4.7. We will check her labs tomorrow. I am hoping that we can get her to [facility] once they have authorization from the insurance company. We will see what her blood test are tomorrow and she might be transfused, if it drops below 8 and she was here because there might have been a PE, but the CT scan and angio was negative. She was short of breath. She has hypoxia, anemia, COPD, pulmonary hypertension, which is severe. I will check her labs tomorrow. Nigel Wheeler DO
[2017-11-05] MEDS ORDERED: Enoxaparin 40 mg Syringe SC SCH (16:00)
[2017-11-05] MEDS: Enoxaparin 40 mg Syringe SC SCH (18:13)
[2017-11-06] MEDS: Levalbuterol 1.25 MG/3 ML Inhal Soln UD IH SCH ×4 (04:00→20:13)
[2017-11-06] MEDS: Nystatin 100,000 Units/ml Oral Susp 5 ml UD PO SCH ×5 (05:56→21:08)
[2017-11-06] MEDS: Budesonide 0.5 mg/2 ml Inhal Susp UD IH SCH ×2 (07:41→20:13)
[2017-11-06] MEDS: Insulin Reg-MEDIUM-Coverage SC SCH ×4 (08:13→21:44)
[2017-11-06 09:23] LABS: HEMOGLOBIN 9.3 g/dL (12.0-16.0); MEAN CELL VOLUME 96.8 fl (80.0-105.0); MEAN CORPUSCULAR HEMOGLOBIN 29.9 pg (25.0-35.0); MEAN CORPUSCULAR HGB CONC 30.9 g/dl (31.0-37.0); MEAN PLATELET VOLUME 10.1 fl (7.0-11.0); RBC 3.11 10^6/uL (3.5-6.1); RED CELL DISTRIBUTION WIDTH 16.1 % (11.5-14.5); WHITE BLOOD COUNT 7.2 10^3/ul (4.5-11.0)
[2017-11-06] MEDS: Thiamine 100 mg/ml Inj IM SCH (09:23)
[2017-11-06] MEDS: Enoxaparin 40 mg Syringe SC SCH (09:23)
[2017-11-06] MEDS: Pantoprazole 40 mg EC Tab PO SCH (09:24)
[2017-11-06] MEDS: RANOLAZINE 1000 MG PO SCH ×2 (09:25→18:12)
[2017-11-06] MEDS: Sildenafil 20 MG TAB PO SCH ×2 (09:25→17:34)
[2017-11-06] MEDS: Magnesium Oxide 400 mg Tab UD PO SCH ×2 (09:25→17:34)
[2017-11-06] MEDS: POLYETHYLENE GLYCOL 3350 17 GM/Dose PACKET PO SCH (09:26)
[2017-11-06 09:36] LABS: ALB/GLOB RATIO 1.3 (1.1-1.8); ALBUMIN 3.2 g/dL (3.0-4.8); ALT/SGPT 40 U/L (7-56); AST/SGOT 22 U/L (14-36); BLOOD UREA NITROGEN 20 mg/dL (7-21); CALCIUM 9.5 mg/dL (8.4-10.5); GFR AFRICAN-AMERICAN > 60; GFR NON-AFRICAN AMERICAN > 60
--- NOTE | 2017-11-06 09:52 | PN ---
DATE: 11/06/2017 PULMONARY NOTE SUBJECTIVE: The patient appears very comfortable this morning. She is not short of breath at rest. PHYSICAL EXAMINATION: VITAL SIGNS: Temperature is 98.0, pulse 95, respirations 18, blood pressure 109/58. Oxygen saturation on nasal cannula is 92-97%. HEENT: Normocephalic, atraumatic. No JVD. CARDIOVASCULAR: Systolic ejection murmur at the lower left sternal border. No S3 gallop. LUNGS: Decreased breath sounds at the bases. Very minimal/less rhonchi. No wheezing. EXTREMITIES: Less edema. No cyanosis. No clubbing. Calves are nontender to palpation. GI: Abdomen is soft, nontender and nondistended. Bowel sounds are positive. SKIN: No acute rash. NEUROLOGIC: Limited at the present time. IMPRESSION: 1. Rule out pulmonary embolism - ruled out. 2. End-stage chronic obstructive pulmonary disease. 3. Severe pulmonary hypertension. 4. Coronary artery disease. 5. Chronic anemia. PLAN: The patient appears very comfortable this morning. She is not short of breath at rest. She does state to feeling much, much better overall. On physical exam, there is no significant bronchospasm. In addition, there is no significant alveolar-arterial gradient. I will continue with the current nebulizer treatments and low-dose oral steroids for now. The patient also remains on her Revatio - for her pulmonary hypertension. Clinical status of the patient is significantly improved - compared to the initial presentation. However, unfortunately, the future status/prognosis for this patient does remain poor. I will discuss the above with Dr. Wheeler. Evgeny Briggs MD [facility]
[2017-11-07] MEDS: Levalbuterol 1.25 MG/3 ML Inhal Soln UD IH SCH ×4 (03:38→22:40)
[2017-11-07] MEDS: Nystatin 100,000 Units/ml Oral Susp 5 ml UD PO SCH ×4 (06:50→17:25)
[2017-11-07 07:36] LABS: HEMOGLOBIN 8.7 g/dL (12.0-16.0); MEAN CELL VOLUME 96.9 fl (80.0-105.0); MEAN PLATELET VOLUME 10.3 fl (7.0-11.0); RBC 2.9 10^6/uL (3.5-6.1); RED CELL DISTRIBUTION WIDTH 16.2 % (11.5-14.5); WHITE BLOOD COUNT 5.2 10^3/ul (4.5-11.0)
[2017-11-07] MEDS: Budesonide 0.5 mg/2 ml Inhal Susp UD IH SCH ×2 (07:50→22:40)
--- NOTE | 2017-11-07 08:15 | PN ---
DATE: 11/07/2017 PULMONARY NOTE SUBJECTIVE: The patient appears very comfortable this morning. She is not short of breath at rest. PHYSICAL EXAMINATION VITAL SIGNS: Temperature is 97.9, pulse is 95, respirations 18, blood pressure 122/54. Oxygen saturation on nasal cannula is 100%. HEENT: Normocephalic, atraumatic. No JVD. CARDIOVASCULAR: Systolic ejection murmur at the lower left sternal border. No S3 gallop. LUNGS: Improved breath sounds at the bases. Very minimal/less rhonchi. No wheezing. EXTREMITIES: Less edema. No cyanosis, no clubbing. Calves are nontender to palpation. GI: Abdomen is soft, nontender and nondistended. Bowel sounds are positive. SKIN: No acute rash. NEUROLOGIC: Limited at the present time. IMPRESSION: 1. Rule out pulmonary embolism - ruled out. 2. End-stage chronic obstructive pulmonary disease. 3. Severe pulmonary hypertension. 4. Coronary artery disease. 5. Chronic anemia. PLAN: The patient appears very comfortable this morning. She is not short of breath at rest. She does state to feeling much, much better overall. She does complain of a mild postnasal drip. On physical exam, there is no significant bronchospasm noted. In addition, the oxygen saturation on nasal cannula is 100%. I will continue the current nebulizer treatments and low-dose oral steroids for now. I will also start the patient on Flonase nasal spray - due to her nasal complaints. Clinical status of the patient is significantly improved - compared to the initial presentation. However, again, unfortunately, the future status/prognosis for this chronically ill elderly patient remains poor. All are aware. I will discuss the above with Dr. Wheeler. Evgeny Briggs MD MTDD
[2017-11-07 08:30] LABS: ALB/GLOB RATIO 1.3 (1.1-1.8); ALT/SGPT 33 U/L (7-56); AST/SGOT 20 U/L (14-36); BLOOD UREA NITROGEN 27 mg/dL (7-21); CALCIUM 9.4 mg/dL (8.4-10.5); GFR AFRICAN-AMERICAN > 60; GFR NON-AFRICAN AMERICAN > 60
[2017-11-07] MEDS: Insulin Reg-MEDIUM-Coverage SC SCH ×4 (08:34→21:46)
--- NOTE | 2017-11-07 09:28 | PN ---
DATE: 11/06/2017 SUBJECTIVE: I saw Shahida resting comfortably in bed. She is in very good spirits. She ate her breakfast very well today. She wants to get out of bed to chair. She is happy. She understands she is going to go to subacute rehab tomorrow at [facility], that is the plan. She is excited about that too. She is in good spirits. No chest pain or shortness of breath. No abdominal pain. She is being seen by Pulmonary, Renal, Cardiology, and Orthopedics. She is on Caltrate, Ecotrin, insulin, Lipitor, Lovenox, magnesium, MiraLax, nystatin, Plavix, prednisone, Protonix, Pulmicort, Ranexa, Revatio, Ultram, vitamins, Xanax, and Xopenex. PHYSICAL EXAMINATION: VITAL SIGNS: Temperature 98, pulse 95, blood pressure 109/58, respiratory rate 18, and O2 sat 92% on nasal cannula. HEENT: Head is atraumatic, normocephalic. Throat is moist. NECK: Supple. Heart: Regular rate. LUNGS: Decreased breath sounds but clear. No wheezes. No rhonchi. No rales. ABDOMEN: Soft, nontender. Positive bowel sounds. EXTREMITIES: Have no edema. It is one of the better days I have seen her. LABORATORY DATA: She has a 7.2 white count, 9.3 hemoglobin, 30.1 hematocrit with 170 platelets. She has a 31.3 PTT. She has 134 sodium, potassium is 4.3, BUN 20, creatinine 0.7, GFR is greater than 60, sugar is 106, calcium is 9.5. Total bilirubin is 0.6, AST is 22, ALT is 40, alkaline phosphatase is 62, total protein is 5.6. Urine is clear. ASSESSMENT AND PLAN: We will continue with aggressive treatment and care, get her out of bed to chair. Check her labs tomorrow hoping that we can get her to [facility] for subacute rehab. She is here for hypoxemia, shortness of breath, pulmonary hypertension, and chronic obstructive pulmonary disease, and she is doing quite well today. Nigel Wheeler DO [facility] # [id number] JOSEPH
[2017-11-07] MEDS: Sildenafil 20 MG TAB PO SCH ×2 (10:34→17:32)
[2017-11-07] MEDS: Magnesium Oxide 400 mg Tab UD PO SCH ×2 (10:34→17:26)
[2017-11-07] MEDS: Pantoprazole 40 mg EC Tab PO SCH (10:35)
[2017-11-07] MEDS: Thiamine 100 mg/ml Inj IM SCH (10:36)
[2017-11-07] MEDS: Enoxaparin 40 mg Syringe SC SCH (10:37)
[2017-11-07] MEDS: POLYETHYLENE GLYCOL 3350 17 GM/Dose PACKET PO SCH (10:41)
[2017-11-07] MEDS ORDERED: RANOLAZINE 1000 MG PO SCH (10:56)
[2017-11-07] MEDS: Fluticasone Nasal 50 mcg/Spray NS SCH (11:53)
[2017-11-07] MEDS: RANOLAZINE 1000 MG PO SCH ×3 (11:54→21:42)
--- NOTE | 2017-11-07 14:22 | PN ---
DATE: 11/07/2017 CARDIOLOGY FOLLOWUP SUBJECTIVE: The patient's breathing is stable. OBJECTIVE: VITAL SIGNS: Blood pressure is 122/54, the heart rate in the 90s. NECK: Negative JVD. LUNGS: Without rales. HEART: S1, S2. EXTREMITIES: Without edema. LABORATORY DATA: Hemoglobin is 8.7. Chemistries: BUN and creatinine 27 and 0.8. IMPRESSION: 1. Severe chronic obstructive pulmonary disease. 2. Stable angina. 3. Coronary artery disease. 4. Mild pulmonary hypertension. 5. Diabetes mellitus. Given these findings, the patient is scheduled for transfer to a subacute rehab today. Harrison Echavarria MD
--- NOTE | 2017-11-07 14:49 | RAD ---
PROCEDURE: Left Wrist Radiographs. HISTORY: new fracture COMPARISON: 11/02/2017 FINDINGS: BONES: There is an impacted comminuted fracture of the distal radius. There is further healing. Fracture lines are less evident JOINTS: Normal. No dislocation. SOFT TISSUES: Normal. OTHER FINDINGS: None. IMPRESSION: There is an impacted comminuted fracture of the distal radius. There is further healing. Fracture lines are less evident
--- NOTE | 2017-11-07 20:14 | PN ---
DATE: LOCATION: Room 376, bed 2. I got a call from the family today saying that they were upset about the patient's left wrist fracture that occurred on 09/13/2017. The patient's son states that the arm looks deformed and she complains of pain. I explained to them that the cast is off, patient is in a wrist splint, we need it just for a temporary support, but she did have an impacted fracture on the date of injury and it went onto uneventful healing and did leave her with a radial shortened wrist and some dorsal angulation, but it is compatible with her functional results for an 82-year-old female and I made the same opinion that it did require surgery in my experience because the results of the fracture when it is healed will be the same whether she had surgery. She will have a functional left wrist, maybe a little stiffer because it has a little intraarticular component, but that would not change with surgery and surgery would not be a good option because the screws or pins would not hold an osteopenic bone. So, I showed them the x-rays on the computer view box and they were appreciative of the fact that I spent time with her to analyze the fracture pattern and the end result will be the same when she had surgery and not even though it is little impacted. She will have functional results of that left nondominant wrist and the pain will gradually subside. It is not even 2 months yet, but it will go back to being a functional left wrist with minimal pain except for mild arthritis. I will follow her in the future when she needs any advice. In the meantime, she is to use a splint when she walks another 3 to 4 weeks and then completely discard it and do not use it as much as she used to use it because it will make it stiffer and they understood that. Tal Heaton DO JOSEPH
[2017-11-08] MEDS: Nystatin 100,000 Units/ml Oral Susp 5 ml UD PO SCH ×6 (00:49→22:45)
[2017-11-08] MEDS: Levalbuterol 1.25 MG/3 ML Inhal Soln UD IH SCH ×4 (03:12→20:38)
--- NOTE | 2017-11-08 06:34 | DS ---
She is resting comfortably in bed, slept very well. She is in no distress. No chest pain or shortness of breath. No abdominal pain. She is eating better. She wants to do physical therapy. She tells me she is very motivated. She is going to go on Caltrate, Ecotrin, insulin, Lipitor, Lovenox, magnesium oxide, MiraLax, nystatin, Plavix, prednisone, Protonix, Pulmicort, Ranexa, Revatio, Ultram, vitamin B1, Xanax, Xopenex. PHYSICAL EXAMINATION: Vital signs are 97.9 temperature, 95 pulse, 122/54 blood pressure, O2 sat on room air. Head is atraumatic and normocephalic. Heart is regular rate. Lungs with decreased breath sounds but clear. Abdomen is soft . Extremities, no edema. LABORATORY DATA: She has a 7.2 white count, 9.3 hemoglobin, 30.1 hematocrit with 170 platelets. 134 sodium, potassium 4.3, BUN is 20, creatinine 0.7, GFR is greater than 60, sugar is 138, calcium 9.5, total bilirubin is 0.6, AST is 22, ALT is 40, alkaline phosphatase is 62. She is being seen by multiple physicians, hoping for discharge today. She came in with hypoxemia, rule out PE, which was ruled out end-stage COPD, severe pulmonary hypertension, coronary artery disease and chronic anemia. At this time, I think she is in a good place to go back to [facility] for physical therapy. She will continue with the same medications, encouragement with eating and physical therapy. We will discuss with case management and send him back to [facility] for rehab. Nigel Wheeler DO [facility]
[2017-11-08 06:37] VITALS: RESP 20
--- NOTE | 2017-11-08 07:59 | PN ---
DATE: 11/08/2017 PULMONARY NOTE SUBJECTIVE: The patient appears very comfortable this morning. She is not short of breath at rest. PHYSICAL EXAMINATION VITAL SIGNS: Temperature is 97.5, pulse is 79, respirations 18/20, blood pressure 145/65. Oxygen saturation on nasal cannula is 99%. HEENT: Normocephalic, atraumatic. No JVD. CARDIOVASCULAR: Systolic ejection murmur at the lower left sternal border. No S3 gallop. LUNGS: Clear bilaterally. EXTREMITIES: Less edema. No cyanosis, no clubbing. Calves are nontender to palpation. GI: Abdomen is soft, nontender and nondistended. Bowel sounds are positive. SKIN: No acute rash. NEUROLOGIC: Limited at the present time. IMPRESSION: 1. Rule out pulmonary embolism - ruled out. 2. End-stage chronic obstructive pulmonary disease. 3. Severe pulmonary hypertension. 4. Coronary artery disease. 5. Chronic anemia. PLAN: The patient appears very comfortable this morning. She is not short of breath at rest. She complains of less postnasal drip. She does state to feeling much better overall. On physical exam, her lungs are clear. In addition, the oxygen saturation on nasal cannula is 99%. I will continue the current nebulizer treatments and low-dose oral steroids for now. I will also continue the patient on her Revatio - for the pulmonary hypertension. Clinical status of the patient is significantly improved - compared to the initial presentation. However, again, unfortunately, the future status/prognosis for this patient does remain poor. All are aware. I will discuss the above with Dr. Wheeler. Evgeny Briggs MD [facility]
[2017-11-08] MEDS: Insulin Reg-MEDIUM-Coverage SC SCH ×4 (08:16→22:45)
[2017-11-08] MEDS: Budesonide 0.5 mg/2 ml Inhal Susp UD IH SCH ×2 (08:28→20:38)
[2017-11-08] MEDS: POLYETHYLENE GLYCOL 3350 17 GM/Dose PACKET PO SCH (10:13)
[2017-11-08] MEDS: Sildenafil 20 MG TAB PO SCH ×2 (10:13→18:16)
[2017-11-08] MEDS: Pantoprazole 40 mg EC Tab PO SCH (10:13)
[2017-11-08] MEDS: Fluticasone Nasal 50 mcg/Spray NS SCH (10:14)
[2017-11-08] MEDS: Enoxaparin 40 mg Syringe SC SCH (10:14)
[2017-11-08] MEDS: Magnesium Oxide 400 mg Tab UD PO SCH ×2 (10:14→18:16)
[2017-11-08] MEDS: RANOLAZINE 1000 MG PO SCH ×2 (10:15→18:16)
[2017-11-08] MEDS: Thiamine 100 mg/ml Inj IM SCH (10:16)
--- NOTE | 2017-11-08 16:55 | PN ---
DATE: 11/08/2017 CARDIOLOGY FOLLOWUP SUBJECTIVE: The patient is comfortable. No shortness of breath. PHYSICAL EXAMINATION: VITAL SIGNS: Blood pressure 130/64, heart rate in the 90s. NECK: Negative JVD. LUNGS: Without rales. HEART: S1, S2. EXTREMITIES: Without edema. LABORATORY DATA: Hemoglobin is 8.7, glucose is 103. IMPRESSION: 1. Stable angina. 2. Coronary artery disease. 3. Severe chronic obstructive pulmonary disease. 4. Mild pulmonary hypertension. 5. Dyspnea, which is now resolved. Given these findings, the patient is awaiting transfer to subacute rehab. Harrison Echavarria MD
[2017-11-08 20:31] VITALS: BP 124/61; PULSE 80; TEMP 98.6; O2SAT 96
--- NOTE | 2017-11-09 08:07 | DS ---
HISTORY OF PRESENT ILLNESS: I saw Shahida resting comfortably in bed. She slept well. She is eating well. She wants to do physical therapy and wants to go to rehab. She is on Caltrate, Ecotrin, Flonase, insulin, Lipitor, Lovenox, magnesium, Miralax, nystatin, Plavix, Prednisone, Protonix, Pulmicort, Ranexa, Revatio, Ultram, vitamin B1, Xanax, and Xopenex. PHYSICAL EXAMINATION: VITAL SIGNS: She has 97.5 temperature, 79 pulse, 145/65 blood pressure, 20 respiratory rate, 99% O2 sat on nasal cannula. HEENT: Head is atraumatic, normocephalic. HEART: Regular rate. LUNGS: Decreased breath sounds, but clear. ABDOMEN: Soft. EXTREMITIES: No edema. LABORATORY DATA: She had lab done on the , 8.7 hemoglobin. She has 90 blood sugar. ASSESSMENT AND PLAN: I am waiting for discharge to a subacute rehab for further treatment and care. I am waiting for the insurance company to give us the authorization for her. She has hypoxemia, pulmonary hypertension, chronic obstructive pulmonary disease, and anemia. Hopefully, she will be discharged today to [facility] to continue subacute rehab. Nigel Wheeler DO
== END 2017-11-08 23:45 | DRG 191 ==
LOC: ED 13:18 → ERH 21:44 → 3RSO 11-02 01:30
PROVIDERS: ADMIT Family Medicine; ATTEND Family Medicine
PROC: 3E0F7GC Introduction of Other Therapeutic Substance into Respiratory Tract, Via Natural or Artificial Opening (ICD-10-PCS; principal; 2017-11-03)
DX: J44.1 Chronic obstructive pulmonary disease with (acute) exacerbation (principal); E87.2 Acidosis; L89.159 Pressure ulcer of sacral region, unspecified stage; I27.21 Secondary pulmonary arterial hypertension; Z99.81 Dependence on supplemental oxygen; E11.9 Type 2 diabetes mellitus without complications; D64.9 Anemia, unspecified; E83.42 Hypomagnesemia; E87.1 Hypo-osmolality and hyponatremia; R09.02 Hypoxemia; E78.00 Pure hypercholesterolemia, unspecified; M81.0 Age-related osteoporosis without current pathological fracture; K44.9 Diaphragmatic hernia without obstruction or gangrene; G89.29 Other chronic pain; I25.118 Atherosclerotic heart disease of native coronary artery with other forms of angina pectoris; I10 Essential (primary) hypertension; K21.9 Gastro-esophageal reflux disease without esophagitis; K59.09 Other constipation; R32 Unspecified urinary incontinence; M48.00 Spinal stenosis, site unspecified; R29.6 Repeated falls; S52.502D Unspecified fracture of the lower end of left radius, subsequent encounter for closed fracture with routine healing; Z79.02 Long term (current) use of antithrombotics/antiplatelets; Z79.82 Long term (current) use of aspirin; Z95.5 Presence of coronary angioplasty implant and graft; Z88.5 Allergy status to narcotic agent; Z87.891 Personal history of nicotine dependence

== ENCOUNTER 2017-11-13 14:33 | Emergency (ER) | payer MEDICARE, MEDICAID ==
[2017-11-13 14:43] VITALS: BMI 30.9
--- NOTE | 2017-11-13 14:48 | ED PDOC ---
Arrival/HPI - General Chief Complaint: Weakness/Neurological Deficit Time Seen by Provider: 11/13/17 14:34 Historian: Patient, Family (Son), EMS - History of Present Illness Time/Duration: Prior to Arrival Symptom Onset: Gradual Symptom Course: Worsening Severity Level: Moderate Activities at Onset: Rest Associated Symptoms (Text): 11/13/17 14:46 Patient was discharged from the hospital 4 days ago to rehabilitation. Since then the patient has generalized weakness and fatigue and is unable to ambulate. She had a Procrit shot for her anemia. She was transfused last month. No cough congestion or URI. No chest pain. No dyspnea. No abdominal pain, but she has been constipated. No vomiting. No genitourinary symptoms. There is a small decubitus on the lumbar spine. Past Medical History - Infectious Disease Hx of Infectious Diseases: None - Tetanus Immunization Tetanus Immunization: Unknown - Cardiac Hx Cardiac Disorders: Yes Hx Congestive Heart Failure: Yes Hx Hypertension: Yes - Pulmonary Hx Chronic Obstructive Pulmonary Disease (COPD): Yes - Neurological Hx Neurological Disorder: Yes Hx Dizziness: Yes - HEENT Hx HEENT Disorder: Yes Hx Cataracts: Yes - Renal Hx Renal Disorder: No - Endocrine/Metabolic Hx Endocrine Disorders: No - Hematological/Oncological Hx Anemia: Yes - Integumentary Hx Dermatological Disorder: No - Musculoskeletal/Rheumatological Hx Arthritis: Yes - Gastrointestinal Hx Gastrointestinal Disorders: Yes (exploratry lap with 2 inches of bowel resected) Hx Diverticulitis: Yes Hx Gall Bladder Disease: Yes (CHLOECYSTECTOMY) - Genitourinary/Gynecological Hx Genitourinary Disorders: Yes Hx Incontinence: Yes Hx Urinary Tract Infection: Yes - Psychiatric Hx Substance Use: No - Surgical History Hx Appendectomy: Yes Hx Cardiac Catheterization: Yes Hx Cholecystectomy: Yes Hx Coronary Stent: Yes - Anesthesia Hx Anesthesia: Yes Hx Anesthesia Reactions: No Hx Malignant Hyperthermia: No - Suicidal Assessment Feels Threatened In Home Enviroment: No Family/Social History - Physician Review Nursing Documentation Reviewed: Yes Family/Social History: Unknown Family HX Smoking Status: Former Smoker (Quit smoking 60 years ago) Hx Alcohol Use: No Hx Substance Use: No Hx Substance Use Treatment: No Allergies/Home Meds Allergies/Adverse Reactions: Allergies codeine Adverse Reaction (Verified 10/02/17 16:13) VOMITING hydromorphone HCl [From Dilaudid] Adverse Reaction (Verified 10/02/17 16:13) VOMITING MYOCINS Adverse Reaction (Uncoded 10/02/17 16:13) VOMITING Home Medications: Home Meds Medication Instructions Recorded Confirmed Atorvastatin Calcium [Lipitor] 10 mg PO DAILY 02/09/12 11/01/17 Clopidogrel [Plavix] 75 mg PO DAILY 02/09/12 11/01/17 Ranolazine [Ranexa] 1,000 mg PO BID 01/21/15 11/01/17 Aspirin [Aspirin EC] 81 mg PO DAILY 01/19/16 11/01/17 Dexlansoprazole [Dexilant] 60 mg PO DAILY 01/19/16 11/01/17 traMADol [Ultram] 50 mg PO TID PRN 01/19/16 11/01/17 Arformoterol [Brovana] 1 carley NEB BID 03/26/17 11/01/17 Budesonide/Formoterol Fumarate 1 puff IH PRN PRN 08/18/17 11/01/17 [Symbicort 160-4.5 Mcg Inhaler] Levalbuterol Tartrate [Xopenex Hfa] 1 puff IH PRN PRN 08/18/17 11/01/17 Review of Systems - Physician Review All systems were reviewed & negative as marked: Yes - Review of Systems Constitutional: Fatigue. absent: Fevers Respiratory: absent: SOB, Cough, Wheezing Cardiovascular: absent: Chest Pain, Palpitations, Syncope Gastrointestinal: Constipation, Anorexia. absent: Abdominal Pain, Diarrhea, Nausea, Vomiting Genitourinary Female: absent: Dysuria, Frequency Neurological: absent: Headache, Dizziness, Focal Weakness Physical Exam Vital Signs Temp Pulse Resp BP Pulse Ox 11/13/17 14:38 99.4 F 85 20 115/57 L 95 Temperature: Afebrile Blood Pressure: Normal Pulse: Regular Respiratory Rate: Normal Appearance: Positive for: Well-Appearing, Non-Toxic, Uncomfortable, Other (Pale and chronically ill-appearing) Pain Distress: None Mental Status: Positive for: Alert and Oriented X 3 - Systems Exam Head: Present: Atraumatic, Normocephalic Pupils: Present: PERRL Extroacular Muscles: Present: EOMI Conjunctiva: Present: Normal Mouth: Present: Moist Mucous Membranes Pharnyx: No: ERYTHEMA, EXUDATE, TONSILS ENLARGED Neck: Present: Normal Range of Motion Respiratory/Chest: Present: Clear to Auscultation, Good Air Exchange, Decreased Breath Sounds. No: Respiratory Distress, Accessory Muscle Use Cardiovascular: Present: Regular Rate and Rhythm, Normal S1, S2. No: Murmurs Abdomen: Present: Normal Bowel Sounds. No: Tenderness, Distention, Peritoneal Signs, Rebound, Guarding Rectal: Present: Normal Rectal Tone, Other (No impaction). No: Occult Blood, Rectal Tenderness, Gross Blood, Melena, Hemorrhoids, Fissures, Nodule/Mass/ Lesions Upper Extremity: Present: Normal Inspection, Other (left wrist is in a cock up splint secondary to an old fracture). No: Cyanosis, Edema Lower Extremity: Present: Normal Inspection, Other (Large ecchymotic area in the right groin area). No: Edema Neurological: Present: GCS=15, CN II-XII Intact, Speech Normal, Motor Func Grossly Intact Skin: Present: Warm, Dry, Pale, Other (Decubitus as above). No: Rashes Psychiatric: Present: Alert, Oriented x 3, Normal Insight, Normal Concentration Medical Decision Making ED Course and Treatment: 11/13/17 15:05 EKG shows normal sinus rhythm rate approximately [address] or T-wave changes 11/13/17 15:21 I had a discussion with the patient and son about a living will. She said that she did not want one now. When I asked if she knew what a living will was she states "leaving things to her children". I explained to her that a living will was if she wanted be placed on machines to keep her alive. She stated that she did not want any machines. We discussed that she would need to fill out a living will and that I would order a DNR now. Her son then privately talked her out of a living will and DNR and the DNR will be rescinded. 11/13/17 16:14 Discussed in detail with . Patient is anemic at her usual level. Patient had Procrit yesterday. The rest of her workup is unrevealing. She will be discharged back to rehabilitation. - Lab Interpretations Lab Results: 11/13/17 15:20 11/13/17 15:20 Lab Results 11/13/17 15:30: Urine Color Yellow, Urine Appearance Clear, Urine pH 7.0, Ur Specific Pine 1.020, Urine Protein Trace H, Urine Glucose (UA) Negative, Urine Ketones Negative, Urine Blood Negative, Urine Nitrate Negative, Urine Bilirubin Negative, Urine Urobilinogen 1.0 H, Ur Leukocyte Esterase Negative, Urine RBC Pending, Urine WBC Pending 11/13/17 15:20: Sodium 134, Chloride 95 L, Potassium 5.1 H, Carbon Dioxide 31, Anion Gap 13, BUN 19, Creatinine 0.9, Est GFR ( Amer) > 60, Est GFR (Non- Af Amer) > 60, Random Glucose 117 H, Calcium 9.3, Total Bilirubin 0.5, AST 17, ALT 33, Alkaline Phosphatase 50, Lactate Dehydrogenase 282 L, Total Creatine Kinase < 20 L, Troponin I < 0.01, NT-Pro-B Natriuret Pep 222, Total Protein 5.1 L, Albumin 2.9 L, Globulin 2.2, Albumin/Globulin Ratio 1.3 11/13/17 15:20: pO2 107 H, VBG pH 7.36, VBG pCO2 63.0 H, VBG HCO3 35.6 H, VBG Total CO2 37.5 H, VBG O2 Sat (Calc) 98.2 H, VBG Base Excess 7.9 H, VBG Potassium 5.1, Sodium 132.0, Chloride 99.0, Glucose 119 H, Lactate 1.4, FiO2 21.0, Venous Blood Potassium 5.1 11/13/17 15:20: PT 11.8, INR 1.03, APTT 29.6 11/13/17 15:20: WBC 4.8, RBC 3.01 L, Hgb 9.2 L, Hct 28.9 L, MCV 96.0, MCH 30.6, MCHC 31.8, RDW 16.3 H, Plt Count 232, MPV 10.6, Gran % 75.7 H, Lymph % (Auto) 18.5 L, Bell % (Auto) 4.6, Eos % (Auto) 1.0 L, Baso % (Auto) 0.2, Gran # 3.63, Lymph # (Auto) 0.9 L, Bell # (Auto) 0.2, Eos # (Auto) 0.1, Baso # (Auto) 0.01 - RAD Interpretation Radiology Orders: 11/13/17 14:44 CHEST PORTABLE [RAD] Stat Chest 1 view shows no infiltrate effusion or cardiomegaly Manager Quantitative: ED Physician Disposition/Present on Arrival - Present on Arrival Any Indicators Present on Arrival: No History of DVT/PE: Yes History of Uncontrolled Diabetes: No Urinary Catheter: No History of Decub. Ulcer: No History Surgical Site Infection Following: None - Disposition Have Diagnosis and Disposition been Completed?: Yes Diagnosis: Weakness, Anemia, Hyperkalemia Disposition: HOME/ ROUTINE Disposition Time: 16:17 Patient Plan: Discharge Condition: FAIR Discharge Instructions (ExitCare): Weakness (ED), Hyperkalemia, Fatigue Referrals: Neeraj Valentine MD [Staff Provider] - Follow up with primary Forms: [employer] (Sammarinese)
[2017-11-13 14:56] VITALS: TEMP 99.4
--- NOTE | 2017-11-13 15:17 | RAD ---
HISTORY: weakness COMPARISON: 11/01/2017. FINDINGS: LUNGS: The lungs are hyperinflated and there is peribronchial thickening with chronic changes in both lungs. There is no focal consolidation. There are fibrotic changes in both lungs. PLEURA: No significant pleural effusion identified, no pneumothorax apparent. CARDIOVASCULAR: Normal. OSSEOUS STRUCTURES: No significant abnormalities. VISUALIZED UPPER ABDOMEN: Normal. OTHER FINDINGS: None. IMPRESSION: No active pulmonary disease. COPD.
[2017-11-13 15:35] LABS: BASO # 0.01 K/mm3 (0.0-2.0); BASO % 0.2 % (0.0-3.0); EOS # 0.1 (0.0-0.7); GRAN # 3.63 (1.4-6.5); GRAN % 75.7 % (50.0-68.0); HEMOGLOBIN 9.2 g/dL (12.0-16.0); LYMPH # 0.9 (1.2-3.4); LYMPH % 18.5 % (22.0-35.0); MEAN CORPUSCULAR HEMOGLOBIN 30.6 pg (25.0-35.0); MEAN CORPUSCULAR HGB CONC 31.8 g/dl (31.0-37.0); MEAN PLATELET VOLUME 10.6 fl (7.0-11.0); MONO # 0.2 (0.1-0.6); MONO % 4.6 % (1.0-6.0); RBC 3.01 10^6/uL (3.5-6.1); RED CELL DISTRIBUTION WIDTH 16.3 % (11.5-14.5); VENOUS BLOOD GAS BASE EXCESS 7.9 mmol/L (0.0-2.0); VENOUS BLOOD GAS PO2 107 mm/Hg (30-55); VENOUS BLOOD PH 7.36 (7.32-7.43); WHITE BLOOD COUNT 4.8 10^3/ul (4.5-11.0)
[2017-11-13 15:52] LABS: URINE BILIRUBIN NEGATIVE (NEGATIVE); URINE BLOOD NEGATIVE (NEGATIVE); URINE GLUCOSE (UA) NEGATIVE (NEGATIVE); URINE LEUKOCYTE ESTERASE NEGATIVE Leu/uL (NEGATIVE); URINE NITRATE NEGATIVE (NEGATIVE); URINE PROTEIN TRACE mg/dL (<30 mg/dL)
[2017-11-13 15:53] LABS: ALB/GLOB RATIO 1.3 (1.1-1.8); ALBUMIN 2.9 g/dL (3.0-4.8); ALT/SGPT 33 U/L (7-56); AST/SGOT 17 U/L (14-36); BLOOD UREA NITROGEN 19 mg/dL (7-21); CALCIUM 9.3 mg/dL (8.4-10.5); GFR AFRICAN-AMERICAN > 60; GFR NON-AFRICAN AMERICAN > 60
[2017-11-13 15:55] LABS: URINE APPEARANCE CLEAR (CLEAR); URINE COLOR YELLOW (YELLOW)
[2017-11-13 15:58] LABS: INR 1.03 (0.93-1.08); PARTIAL THROMBOPLASTIN TIME 29.6 Seconds (25.1-36.5); PROTHROMBIN TIME 11.8 SECONDS (9.4-12.5)
[2017-11-13 16:04] LABS: B-TYPE NATRIURETIC PEPTIDE 222 pg/mL (0-450); TROPONIN I < 0.01 ng/mL
[2017-11-13 16:23] LABS: URINE BACTERIA LARGE (NEG); URINE EPITHELIAL CELLS 0 - 2 /hpf (0-5); URINE RBC 0 - 2 /hpf (0-2); URINE WBC NEGATIVE /hpf (0-6)
[2017-11-13 17:16] VITALS: BP 100/52; PULSE 88; RESP 18; O2SAT 97
--- NOTE | 2017-11-14 21:38 | CARD ---
APPROVED REPORT EKG Measurement Heart [id number] <Conclusion> Normal sinus rhythm Possible Left atrial enlargement Borderline ECG
== END 2017-11-13 17:35 | disposition home or self-care (01) ==
LOC: ED 14:33
DX: R53.1 Weakness (principal); D64.9 Anemia, unspecified; E87.5 Hyperkalemia; I11.0 Hypertensive heart disease with heart failure; I50.9 Heart failure, unspecified; Z87.891 Personal history of nicotine dependence

== ENCOUNTER 2017-11-26 17:40 | Inpatient (IN) | payer MEDICAID, MEDICARE ==
[2017-11-26 18:19] LABS: BASO # 0.01 K/mm3 (0.0-2.0); BASO % 0.2 % (0.0-3.0); EOS % 0.2 % (1.5-5.0); GRAN # 3.91 (1.4-6.5); GRAN % 71.3 % (50.0-68.0); HEMOGLOBIN 9.6 g/dL (12.0-16.0); LYMPH # 1.2 (1.2-3.4); LYMPH % 22.3 % (22.0-35.0); MEAN CELL VOLUME 101.9 fl (80.0-105.0); MEAN CORPUSCULAR HGB CONC 30.4 g/dl (31.0-37.0); MEAN PLATELET VOLUME 10.1 fl (7.0-11.0); MONO # 0.3 (0.1-0.6); RBC 3.1 10^6/uL (3.5-6.1); RED CELL DISTRIBUTION WIDTH 17.1 % (11.5-14.5); WHITE BLOOD COUNT 5.5 10^3/ul (4.5-11.0)
--- NOTE | 2017-11-26 18:22 | ED PDOC ---
Arrival/HPI - General Chief Complaint: Shortness Of Breath Time Seen by Provider: 11/26/17 17:44 - History of Present Illness Narrative History of Present Illness (Text): 82 y/o F c PMHx HTN, COPD on O2 2.5 L, CHF, recently admitted with V/Q scan suggestive of PE, discharged to rehab without diagnosis of PE (follow up, dyspnea was attributed to patient's underlying respiratory disease. Had CXR at rehab, shows bilateral pneumonitis, has been on Levofloxacin PO. Patient had worsening dyspnea today with pulse oximetry 80% and brought to ED via EMS with duonebs en route, improved on the way. Patient denies fever, chills, vomiting. 11/26/17 20:00 Past Medical History - Provider Review Nursing Documentation Reviewed: Yes - Infectious Disease Hx of Infectious Diseases: None - Tetanus Immunization Tetanus Immunization: Unknown - Reproductive Menopause: Yes - Cardiac Hx Cardiac Disorders: Yes Hx Congestive Heart Failure: Yes Hx Hypertension: Yes - Pulmonary Hx Chronic Obstructive Pulmonary Disease (COPD): Yes - Neurological Hx Neurological Disorder: Yes Hx Dizziness: Yes - HEENT Hx HEENT Disorder: Yes Hx Cataracts: Yes - Renal Hx Renal Disorder: No - Endocrine/Metabolic Hx Endocrine Disorders: No - Hematological/Oncological Hx Anemia: Yes - Integumentary Hx Dermatological Disorder: No - Musculoskeletal/Rheumatological Hx Arthritis: Yes - Gastrointestinal Hx Gastrointestinal Disorders: Yes (exploratry lap with 2 inches of bowel resected) Hx Diverticulitis: Yes Hx Gall Bladder Disease: Yes (CHLOECYSTECTOMY) - Genitourinary/Gynecological Hx Genitourinary Disorders: Yes Hx Incontinence: Yes Hx Urinary Tract Infection: Yes - Psychiatric Hx Psychophysiologic Disorder: No Hx Emotional Abuse: No Hx Physical Abuse: No Hx Substance Use: No - Surgical History Hx Appendectomy: Yes Hx Cardiac Catheterization: Yes Hx Cholecystectomy: Yes Hx Coronary Stent: Yes - Anesthesia Hx Anesthesia: Yes Hx Anesthesia Reactions: No Hx Malignant Hyperthermia: No - Suicidal Assessment Feels Threatened In Home Enviroment: No Family/Social History - Physician Review Nursing Documentation Reviewed: Yes Family/Social History: No Known Family HX Smoking Status: Former Smoker Hx Alcohol Use: No Hx Substance Use: No Hx Substance Use Treatment: No Allergies/Home Meds Allergies/Adverse Reactions: Allergies morphine Allergy (Verified 11/26/17 17:46) VOMITING codeine Adverse Reaction (Verified 11/26/17 17:46) VOMITING hydromorphone HCl [From Dilaudid] Adverse Reaction (Verified 11/26/17 17:46) VOMITING MYOCINS Adverse Reaction (Uncoded 11/26/17 17:46) VOMITING Home Medications: Home Meds Medication Instructions Recorded Confirmed Dexlansoprazole [Dexilant] 60 mg PO DAILY 01/19/16 11/26/17 Mirtazapine [Remeron] 7.5 mg PO HS 11/26/17 11/26/17 levoFLOXacin [Levaquin] 500 mg PO DAILY 11/26/17 11/26/17 predniSONE [predniSONE Tab] 10 mg PO DAILY 11/26/17 11/26/17 Review of Systems - Physician Review All systems were reviewed & negative as marked: Yes - Review of Systems Constitutional: absent: Fevers Cardiovascular: absent: Chest Pain Physical Exam - Physical Exam Narrative Physical Exam (Text): Constitutional: No acute distress. Head: Normocephalic. Atraumatic. Eyes: PERRL. ENT: Moist mucous membranes. Neck: Supple. Cardiovascular: Borderline tachycardia. Chest: No tenderness. Respiratory: Decreased breath sounds. Clear to auscultation bilaterally. GI: Soft. Nontender. Nondistended. Back: No CVA tenderness. Musculoskeletal: No tenderness or swelling of extremities. Skin: No rash. Neurologic: Alert, no focal deficit. Vital Signs Temp Pulse Resp BP Pulse Ox 11/26/17 19:37 106 H 18 127/56 L 99 11/26/17 17:41 98.3 F 105 H 22 102/64 100 Medical Decision Making ED Course and Treatment: Evidence of hypercarbia, hypoxia, pneumonitis. Will start on IV antibiotics as failed PO antibiotics, continue COPD treatment. Dr. Wheeler accepts to his service. EKG Sinus rhythm, 103 bpm, no ST elevations. CXR bilateral infiltrative changes. - Lab Interpretations Lab Results: 11/26/17 18:00 11/26/17 18:00 Lab Results 11/26/17 18:20: pCO2 61 H, pO2 49.0 L, HCO3 35.3 H, ABG pH 7.37, ABG Total CO2 37.2 H, ABG O2 Saturation 89.3 L, ABG Base Excess 7.8 H, ABG Potassium 5.3 H, Glucose 142 H, Lactate 0.7, FiO2 28.0, Sodium 139.0, Chloride 106.0, Arterial Blood Potassium 5.3 H 11/26/17 18:00: Sodium 141, Potassium 5.5 H, Chloride 100, Carbon Dioxide 36 H, Anion Gap 9 L, BUN 29 H, Creatinine 0.6 L, Est GFR ( Amer) > 60, Est GFR (Non-Af Amer) > 60, Random Glucose 134 H, Calcium 9.2, Total Bilirubin 0.3, AST 20, ALT 28, Alkaline Phosphatase 46, Total Creatine Kinase < 20 L, Troponin I < 0.01, NT-Pro-B Natriuret Pep 379, Total Protein 5.8, Albumin 3.2, Globulin 2.6, Albumin/Globulin Ratio 1.2 11/26/17 18:00: PT 12.1, INR 1.06, APTT 28.6 11/26/17 18:00: WBC 5.5, RBC 3.10 L, Hgb 9.6 L, Hct 31.6 L, MCV 101.9 D, MCH 31.0, MCHC 30.4 L, RDW 17.1 H, Plt Count 243, MPV 10.1, Gran % 71.3 H, Lymph % ( Auto) 22.3, Cloud % (Auto) 6.0, Eos % (Auto) 0.2 L, Baso % (Auto) 0.2, Gran # 3.91, Lymph # (Auto) 1.2, Cloud # (Auto) 0.3, Eos # (Auto) 0.0, Baso # (Auto) 0.01 - RAD Interpretation Radiology Orders: 11/26/17 18:06 CHEST PORTABLE [RAD] Stat - Medication Orders Current Medication Orders: Ceftriaxone Sodium (Rocephin 1 Gram Ivpb) 1 gm in 100 mls @ 100 mls/hr IVPB DAILY JEFFERY PRN Reason: Protocol Discontinued Medications Levofloxacin/Dextrose (Levaquin 750mg) 750 mg in 150 mls @ 100 mls/hr IVPB STAT STA PRN Reason: Protocol Stop: 11/26/17 20:15 Last Admin: 11/26/17 20:29 Dose: 100 mls/hr eMAR Start Stop Document 11/26/17 20:29 DUANE (Rec: 11/26/17 20:29 DUANE [facility] [id number]) Intravenous Solution Start Date 11/26/17 Start Time 20:29 Azithromycin (Zithromax 500mg In Ns) 500 mg in 250 mls @ 167 mls/hr IVPB STAT STA PRN Reason: Protocol Stop: 11/26/17 20:37 Last Admin: 11/26/17 19:21 Dose: 167 mls/hr eMAR Start Stop Document 11/26/17 19:21 DUANE (Rec: 11/26/17 19:21 [facility] [id number] Intravenous Solution Start Date 11/26/17 Start Time 19:21 End Date 11/26/17 End time 20:51 Total Infusion Time 90 Methylprednisolone (Solu-Medrol) 125 mg IVP STAT STA Stop: 11/26/17 19:41 Last Admin: 11/26/17 20:11 Dose: 125 mg IVP Administration Document 11/26/17 20:11 DUANE (Rec: 11/26/17 20:11 [facility]ANE [facility] [id number] Charges for Administration # of IVP Administrations 1 Disposition/Present on Arrival - Present on Arrival Any Indicators Present on Arrival: No History of DVT/PE: No History of Uncontrolled Diabetes: No Urinary Catheter: No History of Decub. Ulcer: No History Surgical Site Infection Following: None - Disposition Have Diagnosis and Disposition been Completed?: Yes Diagnosis: COPD exacerbation, Pneumonia Disposition: HOSPITALIZED Disposition Time: 19:08 Patient Plan: Admission, Telemetry Condition: GUARDED
[2017-11-26 18:25] LABS: INR 1.06 (0.93-1.08); PARTIAL THROMBOPLASTIN TIME 28.6 Seconds (25.1-36.5); PROTHROMBIN TIME 12.1 SECONDS (9.4-12.5)
[2017-11-26 18:33] LABS: ARTERIAL BLOOD GAS HCO3 35.3 mmol/L (21-28); ARTERIAL BLOOD GAS O2 SAT 89.3 % (95-98); ARTERIAL BLOOD GAS PCO2 61 mm/Hg (35-45); ARTERIAL BLOOD GAS PH 7.37 (7.35-7.45); ARTERIAL BLOOD GAS TCO2 37.2 mmol.L (22-28)
[2017-11-26 18:43] LABS: B-TYPE NATRIURETIC PEPTIDE 379 pg/mL (0-450); TROPONIN I < 0.01 ng/mL
[2017-11-26] MEDS ORDERED: levoFLOXacin 750 mg in D5W 750 MG/150 ML BAG IVPB STA (18:46)
[2017-11-26 18:58] LABS: ALB/GLOB RATIO 1.2 (1.1-1.8); ALBUMIN 3.2 g/dL (3.0-4.8); ALT/SGPT 28 U/L (7-56); AST/SGOT 20 U/L (14-36); BLOOD UREA NITROGEN 29 mg/dL (7-21); CALCIUM 9.2 mg/dL (8.4-10.5); GFR AFRICAN-AMERICAN > 60; GFR NON-AFRICAN AMERICAN > 60
[2017-11-26] MEDS ORDERED: Azithromycin 500MG/NS 250ml 500 MG/250 ML BAG IVPB STA (19:08)
[2017-11-26 19:37] LABS: PH,URINE 5.5 (4.7-8.0); URINE BILIRUBIN SMALL (NEGATIVE); URINE BLOOD NEGATIVE (NEGATIVE); URINE GLUCOSE (UA) NEGATIVE (NEGATIVE); URINE LEUKOCYTE ESTERASE NEGATIVE Leu/uL (NEGATIVE); URINE PROTEIN 30 mg/dL (<30 mg/dL)
[2017-11-26 19:38] LABS: URINE APPEARANCE CLEAR (CLEAR)
[2017-11-26 19:39] LABS: URINE COLOR STRAW (YELLOW)
[2017-11-26 19:55] LABS: URINE BACTERIA MANY (NEG); URINE RBC 0 - 2 /hpf (0-2)
[2017-11-26 22:30] VITALS: BMI 23.9
[2017-11-27] MEDS: Budesonide 0.5 mg/2 ml Inhal Susp UD IH SCH ×2 (07:45→19:02)
[2017-11-27] MEDS: Albuterol-Ipratrop 3 mg / 0.5 (3 ml) UD IH SCH ×3 (07:45→19:02)
[2017-11-27] MEDS ORDERED: cefTRIAXone 1 gm 1 GM/100 ML BAG IVPB SCH (10:00)
[2017-11-27] MEDS: Sildenafil 20 MG TAB PO SCH ×2 (10:59→18:34)
[2017-11-27] MEDS: MethylPREDNISolone 40 mg Vial IVP SCH ×2 (11:06→21:17)
[2017-11-27] MEDS ORDERED: Iohexol 240 (50 ml) ONE (11:40)
--- NOTE | 2017-11-27 11:57 | RAD ---
HISTORY: dyspnea COMPARISON: 11/13/2017 FINDINGS: LUNGS: No active pulmonary disease. Stable, chronic interstitial lung disease PLEURA: No significant pleural effusion identified, no pneumothorax apparent. CARDIOVASCULAR: Normal. OSSEOUS STRUCTURES: No significant abnormalities. Evidence of kyphoplasty T12 vertebral body VISUALIZED UPPER ABDOMEN: Normal. OTHER FINDINGS: None. IMPRESSION: No active disease. No significant interval change compared to the prior examination(s).
[2017-11-27] MEDS: Enoxaparin 40 mg Syringe SC SCH (12:58)
[2017-11-27] MEDS: Meropenem IV 1 gm in NS 50 ML IVPB SCH ×3 (12:59→21:18)
--- NOTE | 2017-11-27 14:25 | CON ---
DATE: 11/27/2017 PULMONARY CONSULTATION REASON FOR CONSULTATION: Chronic obstructive pulmonary disease. REFERRING PHYSICIAN: Nigel Wheeler DO. HISTORY OF PRESENT ILLNESS: History is obtained via extensive discussion with the night nurse. I have also reviewed the chart at length, and discussed the case with the patient at length. The patient is a chronically ill 82-year-old female, with past medical history significant for end-stage chronic obstructive pulmonary disease, on home oxygen, coronary artery disease, status post multiple stents, pulmonary hypertension, who presents to [facility] - transferred from the senior care - with increasing shortness of breath at rest, dyspnea on exertion, cough, and minimal sputum production for the past 2 days. The patient denies chest pain, coughing up of blood, or chest pain - made worse with deep respirations. There is no history of temperatures, chills, or infectious exposure. There is no history of night sweats, weight loss, or appetite change prior to the above events. No history of calf pains. No history of syncope or diaphoresis. No history of recent travel or trauma. REVIEW OF SYSTEMS: No history of nausea, vomiting, or diarrhea. No acute urinary symptoms. No new neurologic or musculoskeletal complaints. Rest of the review of systems negative. ALLERGIES: TO MORPHINE, CODEINE, AND ERYTHROMYCIN. SOCIAL HISTORY: Positive for extensive tobacco usage, no alcohol. FAMILY HISTORY: No inheritable diseases. HOME MEDICATIONS: Include prednisone, Levaquin, MiraLax, Remeron, Dexilant, Tylenol, and Xanax. PHYSICAL EXAMINATION: GENERAL: The patient appears comfortable this morning. She is not short of breath at rest. She is awake and alert. VITAL SIGNS: Temperature is 97.9, pulse 93, respirations 18-20, blood pressure 131/76. Oxygen saturation on nasal cannula is 100%. HEENT: Normocephalic, atraumatic. NECK: No JVD. CARDIOVASCULAR: Systolic ejection murmur at the lower left sternal border. No S3 gallop. LUNGS: Decreased breath sounds at the bases. Mild rhonchi bilaterally. No wheezing. EXTREMITIES: Mild edema. No cyanosis. No clubbing. Calves are nontender to palpation. GASTROINTESTINAL: Abdomen is soft, nontender, and nondistended. Bowel sounds are positive. SKIN: No acute rash. NEUROLOGIC: Limited at the present time. PERTINENT LABORATORY DATA: Chest x-ray was done last night and reviewed. There are extensive chronic changes bilaterally. The film does not appear significantly changed from the film of 11/13/2017. Official results are pending. CBC: White count 5.5, hemoglobin 9.6, hematocrit 31.6, platelets of 243,000. Arterial blood gas was done on nasal cannula last night. Results are: PH 7.37, pCO2 of 61, pO2 of 49. Complete metabolic profile: Potassium 5.5, carbon dioxide 36, BUN 29, glucose 134. Rest of the metabolic profile is within normal limits. IMPRESSION: 1. Recurrent bronchitis. 2. End-stage chronic obstructive pulmonary disease. 3. Hypoxemia. 4. Rule out underlying pneumonia. 5. Pulmonary hypertension. 6. Coronary artery disease. PLAN: Again, I did discuss the case with the night nurse at length. I have also discussed the case with the patient at length, and reviewed the chart at length. The patient presents to [facility] with a 2-day history of worsening pulmonary symptoms. I did review the chest x-ray as above. Again, the chest x-ray remains with extensive chronic changes bilaterally. The chest x-ray is not significantly changed from the previous film, but it is very difficult-- at this point in time-- to rule out a small underlying pneumonia. Gale cultures have been ordered and will be analyzed when feasible. The patient was given antibiotic therapy in the emergency room. I have called in Dr. Eastman (Infectious Disease) for his opinion. I have also ordered a procalcitonin level - to help us distinguish whether we are dealing with an acute pneumonia or not. I have also reviewed the arterial blood gas. The arterial blood gas reveals a mild respiratory acidosis with a significant increase in the alveolar-arterial gradient. The patient is currently saturating at 100% on 2 liters nasal cannula this morning. Thus, the alveolar-arterial gradient is significantly improved - compared to the initial presentation. On physical exam, there is [id number] bronchospasm noted. I will start the patient on nebulizer treatments and low-dose intravenous steroids this morning. I will also restart the patient on her Revatio - for her pulmonary hypertension. The patient does feel better and is clinically improved this morning - compared to the past few days. However, the patient's future status/prognosis does remain poor overall. I have had enumerable discussions with the family over the past few years - in reference to the patients declining status. They are well aware. I will also discuss the above with Dr. Wheeler this morning. Thank you very much for this pulmonary consultation. Evgeny Briggs MD JOSEPH
--- NOTE | 2017-11-27 22:42 | HP ---
HISTORY OF PRESENT ILLNESS: I have been seeing her in [facility] subacute rehab for about a month now, over the past 2 to 4 days I have been trying to keep her from going back to the hospital. She is now on antibiotics. She has been on steroids, prednisone, and she is still getting more short of breath and panic attacks, and got real bad the other night, they sent her to the emergency room. She failed outpatient treatment. She is an 82-year-old female who has been back and forth to the hospital multiple times. She has had a questionable PE in the past, but it was ruled out. She does not have any PE history. She is short of breath. PAST MEDICAL HISTORY: Hypertension, severe COPD, she is on oxygen. She has also had CHF. She has had some panic attacks. She recently had a chest x-ray which showed bilateral pneumonitis. She has been on Levaquin p.o. and steroids, when her pulse ox dropped to 80% O2 on oxygen 2 liters at the nurse home, they sent her to [facility] She has a past medical history of CHF, hypertension, COPD, severe pulmonary hypertension, dizziness, cataracts, anemia, arthritis, she had exploratory lap with resection of the intestines, diverticulitis, history of cholecystectomy, incontinence of urine, urinary tract infections, appendectomy, cardiac cath, coronary stents. FAMILY HISTORY: No known family history. SOCIAL HISTORY: Former smoker. No alcohol. No drugs. ALLERGIES: TO MORPHINE, CODEINE, HYDROMORPHONE, AND MYCINS. MEDICATIONS: She is on Dexilant, Remeron, Levaquin, prednisone. A lot more than that from the senior living, it is not a complete last. REVIEW OF SYSTEMS: No acute vision changes or hearing changes. No sore throat. She is having panic attacks and feels like the chest is and being tight. She is very short of breath, cannot catch her breath. Mild chest discomfort, but no real pain or pressure. No abdominal pain, nausea, vomiting, constipation, diarrhea. She moves all 4 extremities. It is very weak on left extremities. In a right wrist brace, with x-rays showed healed fracture. PHYSICAL EXAMINATION: VITAL SIGNS: She has 98.3 temperature, 106 pulse, 22 respiratory rate, 127/56 blood pressure, 99% O2 sat on oxygen. HEENT: Head is atraumatic, normocephalic. Extraocular muscles are intact. Throat is moist. NECK: Supple. HEART: Regular rate. LUNGS: Decreased breath sounds. Poor inspiration. She is tight. ABDOMEN: Soft, nontender. Positive bowel sounds. No guarding, no rebound, no CVA tenderness. EXTREMITIES: No edema. SKIN: Intact. No apparent rashes or ulcers. Poor turgor. NEUROLOGICAL: Alert and oriented x3. LYMPHATICS: Thyroid midline. No palpable appreciable lymphadenopathy. LABORATORY DATA: She had multiple tests done. She has a urine which shows many bacteria. She has 141 sodium, potassium 5.5, got some Kayexalate, BUN 29, creatinine 0.6, GFR is greater than 60, sugar is 134, calcium is 9.2, total bili is 0.3, AST is 20, ALT is 20, alk phos is 46. Troponin I is less than 0.01. BNP is 379, total protein is 5.8. She has a blood gas showing a pO2 of 49 with a pCO2 of 61. INR is 1.06. Hemoglobin is 9.6, hematocrit 31.6, platelets of 243 and white count 5.5. Chest x-ray is pending; the one in the senior living showed bilateral pneumonitis, possible pneumonia. IMPRESSION AND PLAN: Presently she is on albuterol, Lovenox, Pulmicort, Remeron, sildenafil, IV Rocephin, Solu-Medrol, Xanax and azithromycin. Will get physical therapy, get out of bed to chair. Continue aggressive treatment and care acute hypoxemia, chronic obstructive pulmonary disease, pulmonary hypertension, urinary tract infection, high potassium. Nigel Wheeler DO [email or web address]
--- NOTE | 2017-11-27 23:08 | CARD ---
APPROVED REPORT EKG Measurement Heart [id number] <Conclusion> Sinus tachycardia Possible Left atrial enlargement Borderline ECG
--- NOTE | 2017-11-27 23:33 | CON ---
DATE: 11/27/2017 The patient seen earlier today in room 373, bed 1. CHIEF COMPLAINT: Shortness of breath times several days. HISTORY OF PRESENT ILLNESS: She is an 82-year-old female who has end-stage chronic obstructive lung disease, chronic respiratory failure on 2.5 liters of O2 therapy at home, history of congestive heart failure, hypertension and a recent diagnosis of pulmonary emboli - suggested diagnosis. The patient also with coronary artery disease and history of urinary tract infections and arthritis and anemia who was admitted to the emergency room with shortness of breath. The patient has low grade fevers. No chest pain. No headaches or blurred vision. Does have abdominal pain. The abdominal pain is in suprapubic area. She denies any dysuria or frequency. No back pain. PAST MEDICAL HISTORY: Significant for end-stage COPD, chronic respiratory failure and O2 depended - oxygen at home, coronary artery disease, hypertension, hyperlipidemia, depression, arthritis, anemia, urinary tract infections, mild aortic regurgitation, pulmonary hypertension, osteoporosis and diverticulitis. PAST SURGICAL HISTORY: Significant for cardiac catheterization with stent placement and appendectomy, cholecystectomy, exploratory laparotomy x 2. The patient had a partial ovaries removed, also had a colon resection. ALLERGIC: THE PATIENT IS ALLERGIC TO CODEINE, HYDROMORPHONE, AND MORPHINE. MEDICATIONS AT HOME: The patient is on prednisone at home. The patient was on Levaquin as an outpatient, without improvement, and Xanax, Dexilant, meclizine, and the patient was recently in the hospital for over a week last month. PHYSICAL EXAMINATION: VITAL SIGNS: The patient is in bed in no acute distress and mild shortness of breath with a temperature of 98, heart rate of 106, blood pressure of 130/70, respiratory rate of 22, 98% saturation with a face mask. HEENT: Unremarkable. NECK: Supple. LUNGS: Decreased breath sounds. HEART: Normal S1, S2. ABDOMEN: Soft. There is mild tenderness in the suprapubic left lower quadrant area. No rebound, no guarding, no masses. LABOATORY DATA: Laboratory examination reveals a white count of 5.5, hemoglobin of 9, platelets of 243. BUN of 29, creatinine of 0.6. Urinalysis is noted. Many bacteria. 2 to 5 WBCs. Microbiology is noted. Chest x-ray is noted to have infiltrates. ASSESSMENT AND PLAN: This is an 82-year-old female with end-stage chronic obstructive lung disease, chronic respiratory failure on home O2 therapy on 2.5 liters, coronary artery disease, congestive heart failure, hypertension, recent suggestive diagnosis of pulmonary emboli. The patient with pulmonary hypertension, osteoporosis, diverticulitis, mild aortic regurgitation, arthritis, anemia, depression, hyperlipidemia and recurrent urinary tract infections, now admitted with tachycardia, dyspnea was treated as outpatient on Levaquin with number one is sepsis, with recent hospitalization, the patient has healthcare-associated pneumonia, must rule out gram-positive cocci versus gram negative safia pneumonia. We will order blood cultures, urine cultures and sputum cultures and will order procalcitonin and we will start the patient empirically on meropenem and doxycycline. We will order a CAT scan of the abdomen and pelvis with p.o. contrast. Pending pancultures and further recommendations pending pancultures, procalcitonin and a CAT scan of the abdomen and pelvis with p.o. contrast. Jose Eastman MD
[2017-11-28] MEDS: Albuterol-Ipratrop 3 mg / 0.5 (3 ml) UD IH SCH ×4 (01:13→19:53)
[2017-11-28] MEDS: Meropenem IV 1 gm in NS 50 ML IVPB SCH ×3 (05:24→22:36)
[2017-11-28] MEDS: Budesonide 0.5 mg/2 ml Inhal Susp UD IH SCH ×2 (07:29→19:54)
[2017-11-28 07:41] LABS: HEMOGLOBIN 8.9 g/dL (12.0-16.0); MEAN CELL VOLUME 102.4 fl (80.0-105.0); MEAN CORPUSCULAR HEMOGLOBIN 30.3 pg (25.0-35.0); MEAN CORPUSCULAR HGB CONC 29.6 g/dl (31.0-37.0); MEAN PLATELET VOLUME 10.4 fl (7.0-11.0); RBC 2.94 10^6/uL (3.5-6.1); RED CELL DISTRIBUTION WIDTH 16.8 % (11.5-14.5); WHITE BLOOD COUNT 5.7 10^3/ul (4.5-11.0)
--- NOTE | 2017-11-28 07:52 | CT ---
EXAM: CT Abdomen and Pelvis Without Intravenous Contrast EXAM DATE/TIME: 11/27/2017 11:32 AM CLINICAL HISTORY: 82 years old, female; Pain; Abdominal pain; Localized; Right; Additional info: Abd pain/ r/ o divertic TECHNIQUE: Axial computed tomography images of the abdomen and pelvis without intravenous contrast. All CT scans at this facility use one or more dose reduction techniques, viz.: automated exposure control; ma/kV adjustment per patient size (including targeted exams where dose is matched to indication; i.e. head); or iterative reconstruction technique. Oral contrast was administered. Coronal and sagittal reformatted images were created and reviewed. COMPARISON: Prior CT abdomen and pelvis of 2017-09-21 FINDINGS: LIMITATIONS: Mild to moderate streak/motion artifact. LOWER THORAX: Large hiatal hernia, containing the proximal stomach. The stomach appears thick walled, most likely secondary to incomplete distention. Marked emphysematous changes in the lung bases. ABDOMEN: LIVER: No acute abnormality of the liver identified. GALLBLADDER AND BILE DUCTS: Cholecystectomy clips. PANCREAS: No CT evidence of acute pancreatitis. SPLEEN: No acute abnormality of the spleen identified. ADRENALS: No acute abnormality of the adrenal glands identified. KIDNEYS AND URETERS: Low density lesion in the left kidney, most likely a cyst. This measures 2 cm No evidence of hydroureteronephrosis. STOMACH AND BOWEL: See below. Colonic diverticulosis, with no evidence of acute diverticulitis. APPENDIX: Normal appendix is not seen, and there are postsurgical changes near the cecum, which are likely from prior appendectomy. Recommend clinical correlation. PELVIS: BLADDER: No acute abnormality of the bladder identified. REPRODUCTIVE:No acute abnormality of the reproductive organs is seen. No acute abnormality of the uterus identified. No evidence of large adnexal masses. ABDOMEN and PELVIS: INTRAPERITONEAL SPACE: Again seen in the right upper pelvis is a well-defined round fluid density/cystic mass, measuring 2 cm, image 115 of series 3. This is located posteriorly. It abuts multiple small bowel loops. It has well-defined margins. No associated air or significant adjacent inflammation. No evidence of free intraperitoneal air or fluid. BONES/JOINTS: Vertebroplasty material noted within the T12 vertebra. There is residual 50% compression deformity at T12. SOFT TISSUES: Left-sided ventral hernia, containing the mid transverse colon. There is no evidence of a significant associated colonic obstruction. There is stool and enteric contrast seen in the left colon distal to the hernia. Small right-sided ventral hernia, containing a small bowel loop. There is no evidence of a significant associated small bowel obstruction. No CT findings to suggest hernia incarceration, although clinical exam is more sensitive for detection of hernia incarceration. VASCULATURE: No evidence of abdominal aortic aneurysm. No evidence of periaortic hemorrhage. LYMPH NODES: No evidence of diffuse lymphadenopathy. IMPRESSION: - No definite acute process. - Bilateral ventral hernias. The larger, on the left, contains the mid transverse colon, and the smaller, on the right contains a small bowel loop. There is no evidence of a significant associated bowel obstruction. - Small 2 cm round, cystic mass in the right upper pelvis posteriorly, abutting multiple small bowel loops. This is of uncertain etiology, but could represent a small enteric duplication cyst or lymphangioma versus a chronic post operative fluid collection, such as a lymphocele or chronic seroma. It appears stable compared to a 09/21/2017 CT, with no associated air or adjacent inflammation. - Large hiatal hernia. - See above for remaining findings.
--- NOTE | 2017-11-28 08:00 | PN ---
DATE: 11/28/2017 PULMONARY NOTE SUBJECTIVE: The patient appears comfortable this morning. She is not short of breath at rest. PHYSICAL EXAMINATION: VITAL SIGNS: Temperature is 97.8, pulse 92, respirations 18/20, blood pressure 123/64. Oxygen saturation on nasal cannula is 100%. HEENT: Normocephalic, atraumatic. No JVD. Cardiovascular: Systolic ejection murmur at the lower left sternal border. No S3 gallop. LUNGS: Decreased breath sounds at the bases. Less rhonchi. No wheezing. EXTREMITIES: Mild edema. No cyanosis. No clubbing. Calves are nontender to palpation. GI: Abdomen is soft, nontender and nondistended. Bowel sounds are positive. SKIN: No acute rash. NEUROLOGIC: Limited at the present time. IMPRESSION: 1. Recurrent bronchitis. 2. End-stage chronic obstructive pulmonary disease. 3. Hypoxemia. 4. Rule out underlying pneumonia - less likely. 5. Pulmonary hypertension. 6. Coronary artery disease. PLAN: The patient appears comfortable this morning. She is not short of breath at rest. She does state to feeling much better overall. I did discuss the case with the night nurse at length. The night nurse stated that the patient had a very good night. On physical exam, there is less bronchospasm noted. In addition, the oxygen saturation on nasal cannula is now 100%. I will continue with the current nebulizer treatments and decrease the intravenous steroids this morning. The patient remains on antibiotic therapy - as per Infectious Disease. Input by Dr. Eastman is noted. I did review the laboratory data from yesterday. A negative procalcitonin is noted. This makes an acute pneumonia - less likely. Clinical status of the patient is certainly improved - compared to the initial presentation. However, unfortunately, the future status/prognosis for this deisy patient does remain poor. All are aware. I will discuss the above with Dr. Wheeler. Evgeny Briggs MD MTDOfelia
[2017-11-28 08:01] LABS: ALB/GLOB RATIO 1.2 (1.1-1.8); ALBUMIN 2.9 g/dL (3.0-4.8); ALT/SGPT 25 U/L (7-56); AST/SGOT 24 U/L (14-36); BLOOD UREA NITROGEN 21 mg/dL (7-21); GFR AFRICAN-AMERICAN > 60; GFR NON-AFRICAN AMERICAN > 60
[2017-11-28] MEDS ORDERED: Sod Polystyrene Sulf 15 gm/60 ml Susp PO ONE (08:34)
[2017-11-28] MEDS: Sildenafil 20 MG TAB PO SCH ×2 (09:11→18:12)
[2017-11-28] MEDS: Enoxaparin 40 mg Syringe SC SCH (09:11)
[2017-11-28] MEDS ORDERED: MethylPREDNISolone 40 mg Vial IVP SCH (10:00)
--- NOTE | 2017-11-28 13:48 | PN ---
DATE: SUBJECTIVE: I saw her resting comfortably in bed. She actually slept last night. She feels better this morning. She has actually got an appetite. She wants to get out of bed to chair. She is more motivated. She is on doxycycline, DuoNebs, Lovenox, Merrem IV, Pulmicort, Remeron, Revatio, Solu-Medrol and Xanax. PHYSICAL EXAMINATION: VITAL SIGNS: She has a 97.8 temperature, 92 pulse, 123/64 blood pressure, 20 respiratory rate, and 100% O2 sat on room air. HEENT: Head is atraumatic, normocephalic. HEART: Regular rate. LUNGS: Decreased breath sounds, but clear to auscultation. ABDOMEN: Soft. EXTREMITIES: No edema. LABORATORY DATA: She has a 5.7 white count, 8.9 hemoglobin, 30.1 hematocrit with 283 platelets. She has a 140 sodium; potassium is 5.6, we will give her some Kayexalate; BUN is 21; creatinine 0.7; GFR is greater than 60; sugar is 122; calcium is 10; total bilirubin is 0.3; AST is 24; ALT is 25; alkaline phosphatase 42; total protein is 5.4. Urine with many bacteria. ASSESSMENT AND PLAN: She is here with chronic obstructive pulmonary disease, congestive heart failure, pulmonary hypertension, urinary tract infection, high potassium. She is being seen by Pulmonary, Infectious Disease. She has recurrent bronchitis, end-stage chronic obstructive pulmonary disease, hypoxemia, possible pneumonia. She is on IV antibiotics. She is starting to get better. Continue aggressive treatment and care. Get physical therapy. Get out of bed to chair. Nigel Wheeler DO
--- NOTE | 2017-11-28 14:22 | CP.PCM.PN ---
Subjective - Date & Time of Evaluation Date of Evaluation: 11/28/17 Time of Evaluation: 11:50 - Subjective Subjective: No fevers, not in distress, afebrile. Still with shortness of breath but a little better, cough is a little better. Objective - Vital Signs/Intake and Output Vital Signs (last 24 hours): Temp Pulse Resp BP Pulse Ox 97.8 F 92 H 20 123/64 100 11/28/17 05:47 11/28/17 05:47 11/28/17 05:47 11/28/17 05:47 11/28/17 05:47 Intake and Output: 11/28/17 11/28/17 06:59 18:59 Intake Total 320 Balance 320 - Medications Medications: Current Medications Albuterol/Ipratropium (Duoneb 3 Mg/0.5 Mg (3 Ml) Ud) 3 ml IH [id number] [facility] Last Admin: 11/28/17 07:29 Dose: Not Given Albuterol/Ipratropium (Duoneb 3 Mg/0.5 Mg (3 Ml) Ud) 3 ml IH Q2H PRN PRN Reason: Shortness of Breath Alprazolam (Xanax) 0.5 mg PO Q4 PRN; Protocol PRN Reason: Anxiety Last Admin: 11/28/17 09:33 Dose: 0.5 mg Budesonide (Pulmicort Respules) 0.5 mg IH [id number] [facility] Last Admin: 11/28/17 07:29 Dose: Not Given Enoxaparin Sodium (Lovenox) 40 mg SC DAILY JEFFERY PRN Reason: Protocol Last Admin: 11/28/17 09:11 Dose: 40 mg Doxycycline Hyclate 100 mg/ (Sodium Chloride) 100 mls @ 100 mls/hr IVPB Q12 JEFFERY PRN Reason: Protocol Stop: 12/06/17 11:32 Last Admin: 11/28/17 09:10 Dose: 100 mls/hr Meropenem (Merrem Iv 1 Gm Premix) 50 mls @ 100 mls/hr IVPB Q8 JEFFERY PRN Reason: Protocol Stop: 12/06/17 11:46 Last Admin: 11/28/17 05:24 Dose: 100 mls/hr Methylprednisolone (Solu-Medrol) 20 mg IVP Q12 [facility] Last Admin: 11/28/17 09:11 Dose: 20 mg Mirtazapine (Remeron) 7.5 mg PO HS [facility] Last Admin: 11/27/17 21:16 Dose: 7.5 mg Sildenafil Citrate (Revatio) 20 mg PO BID [facility] Last Admin: 11/28/17 09:11 Dose: 20 mg - Labs Labs: 11/28/17 07:00 11/28/17 07:00 PT 12.1 SECONDS (9.4-12.5) 11/26/17 18:00 INR 1.06 (0.93-1.08) 11/26/17 18:00 APTT 28.6 Seconds (25.1-36.5) 11/26/17 18:00 - Constitutional Appears: Chronically Ill - Head Exam Head Exam: NORMAL INSPECTION - ENT Exam ENT Exam: Mucous Membranes Moist - Neck Exam Neck Exam: absent: Meningismus - Respiratory Exam Respiratory Exam: Decreased Breath Sounds - Cardiovascular Exam Cardiovascular Exam: +S1, +S2 - GI/Abdominal Exam GI & Abdominal Exam: Soft. absent: Tenderness Assessment and Plan - Assessment and Plan (Free Text) Plan: Assessment R/O HCAP in this patient with acute bronchitis chronic CHF end-stage COPD pulmonary HTN CAD dyslipidemia Plan continue doxycycline and Merrem day 2 pending final culture results
--- NOTE | 2017-11-28 17:23 | PCM.RRT ---
<Caro Hernandez - Last Filed: 11/28/17 17:19> CHICK GRADER Nurse Assessment - Situation Date: 11/28/17 Time CHICK GRADER was called: 16:48 CHICK GRADER Responder Arrival Time: 16:50 CHICK GRADER Location:: [address] [place] [address] Room Number: 373 1 CHICK GRADER Reason for Call: Tachycardia, O2 Saturation below 90%, Change in Mental Status CHICK GRADER Called By: RN - IV IV Inserted during CHICK GRADER?: No IV Fluids Initiated During CHICK GRADER?: No - Respiratory Oxygen Delivery Method: Nasal Cannula @L/min Oxygen Flow Rate: 4 Received Nebulizer Treatments:: No Was the Patient Ventilated with Bag/Mask 100% O2?: No Secretions Suctioned?: No Was the Patient Intubated?: No Was the Patient Placed on a Ventilator?: No - Medication Medications Administered During CHICK GRADER: Tylenol 625mg rectal - Diagnostic Test Ordered EKG: Yes Chest X-Ray: No CT Scan: No - Stat Labs Ordered CHICK GRADER Stat Labs Ordered: BMP, LACTIC ACID, BLOOD C&S X2 CPR started during CHICK GRADER?: No - Vital Signs Vital Sign: Rapid Response Vital Sign Blood Pressure 153/54 Pulse Rate 166 Respiratory Rate 22 Temperature 102.1 F Oxygen Saturation 88 - Finger Stick Blood Glucose Finger Stick Blood Glucose: 126 - [place] Coma Scale Coma Scale Eye Opening: Spontaneous Coma Scale Motor: Obeys Commands Movement Coma Scale Verbal: Oriented - Sepsis Screen Part 1 Sepsis Screen Part 1: Temperature over 100.6F - Time CHICK GRADER Ended Time CHICK GRADER Ended: 17:10 - Vital Signs at end of CHICK GRADER Vital Signs at end of CHICK GRADER: Rapid Response End Vital Sign Blood Pressure 133/66 Pulse Rate 126 Respiratory Rate 20 O2 Sat by Pulse Oximetry 94 - Recommendations 5) CHICK GRADER Level of Care Recommendations: Remain in current setting Notifications: Attending Physician, Family or Designated Caregiver I.Reason for CHICK GRADER - A) Acute Change in Patient: (Select all that apply): Staff member or family is worried about patient - Neurological Status (Select all that apply): Alert, Responsive - Respiratory Oxygen Delivery Method: Nasal Cannula @L/min Oxygen Flow Rate: 4 - Head Head Exam: ATRAUMATIC, NORMAL INSPECTION, NORMOCEPHALIC - Respiratory Exam Respiratory Exam: NORMAL BREATHING PATTERN. absent: Rales, Wheezes - Cardiovascular Exam Cardiovascular Exam: Tachycardia, REGULAR RHYTHM, +S1, +S2. absent: Gallop, Rubs, Murmur - GI/Abdominal Exam GI & Abdominal Exam: Soft, Normal Bowel Sounds. absent: Tenderness, Mass, Rebound - Neurological Exam Neurological Exam: Awake, CN II-XII Intact - Extremities Exam Extremities Exam: Pedal Edema (+ 1 bilaterally ) Plan - Assessment of Findings&Treatment Plan This is an 82yo Female who is admitted for pneumonia and UTI. CHICK GRADER was called because patient was noted to have fever of 102.1 with shaking and some confusion. RR team responded immediately. Upon examination, patient was responsive and A&O x 2 (baseline). She was tachycardic on heart monitor. EKG was done which showed sinus tachycardia. Respiration, BP and glucose were stable. Rectal Tylenol was ordered and given to patient. Patient was noted to be hyperkalemic this morning with K of 5.6. She was given kayexalate this AM and had a BM. Will check Blood culture, urine culture, BMP and VBG shock panel were ordered. If patient's lactate is elevated, will start on IV fluids. Echo done in September 2017 did not show diastolic or systolic CHF. Dr. Wheeler, PMOfelia was notified. Case seen, discussed and reviewed with attending. Pb Hernandez PGY2 <Carolyn Ramirez B - Last Filed: 11/29/17 15:26> CHICK GRADER Nurse Assessment - Vital Signs Vital Sign: Rapid Response Vital Sign Blood Pressure 110/51 Pulse Rate 116 Respiratory Rate 22 Temperature 99.7 F Oxygen Saturation 92 - Vital Signs at end of CHICK GRADER Vital Signs at end of CHICK GRADER: Rapid Response End Vital Sign Blood Pressure 154/99 Pulse Rate 132 Respiratory Rate 20 O2 Sat by Pulse Oximetry 94 Attending/Attestation - Attestation I have personally seen and examined this patient.: Yes I have fully participated in the care of the patient.: Yes I have reviewed all pertinent clinical information, including history, physical exam and plan: Yes Notes (Text): I have seen and examined the patient at bedside. Agree with the above note. VBG showed elevated PCO2. Will do ABG to evaluate further. VS at this time is stable. Tylenol given for fever.
[2017-11-28] MEDS ORDERED: Vancomycin 1gm in NS 250ml 1 GM/250 ML BAG IVPB ONE (17:26)
[2017-11-28 17:27] LABS: VENOUS BLOOD GAS PO2 28 mm/Hg (30-55); VENOUS BLOOD PH 7.25 (7.32-7.43)
[2017-11-28] MEDS: Insulin Reg-MEDIUM-Coverage SC SCH ×2 (17:35→22:50)
[2017-11-28 17:49] LABS: BLOOD UREA NITROGEN 26 mg/dL (7-21); CALCIUM 9.5 mg/dL (8.4-10.5); GFR AFRICAN-AMERICAN > 60; GFR NON-AFRICAN AMERICAN > 60
[2017-11-28] MEDS ORDERED: Sod Polystyrene Sulf 15 gm/60 ml Susp PR ONE (17:53)
[2017-11-28 21:38] LABS: ARTERIAL BLOOD GAS HCO3 37.4 mmol/L (21-28); ARTERIAL BLOOD GAS HEMOGLOBIN 8.9 g/dL (11.7-17.4); ARTERIAL BLOOD GAS O2 CAPACITY 12.5 mL/dl (16-24); ARTERIAL BLOOD GAS O2 CONTENT 12.2 ML/dl (15-23); ARTERIAL BLOOD GAS O2 SAT 97.7 % (95-98); ARTERIAL BLOOD GAS PCO2 105 mm/Hg (35-45); ARTERIAL BLOOD GAS TCO2 40.6 mmol.L (22-28)
[2017-11-28 21:40] LABS: ARTERIAL BLOOD GAS PH 7.16 (7.35-7.45)
[2017-11-28] MEDS ORDERED: Propofol 10 mg/ml Inj (20 ML) IVP ONE (21:57)
--- NOTE | 2017-11-28 22:08 | CP.PCM.CON ---
<Milena Amin - Last Filed: 11/29/17 03:29> History of Present Illness - History of Present Illness History of Present Illness: PGY-[address] Kat ICU consult: hypercapnic respiratory failure Ms. Blackburn, 82F, former smoker, with PMHx CAD s/p stent, O2 dependent COPD, emphysema, pulmonary hypertension, was transferred to [facility] [place] [place] from [facility] for SOB at rest, cough, minimal sputum. Pt was in [facility] subacute rehab for a month. Pt get short of breath and panic attack, got steroid, prednisone, failed outpatient treatment, remained SOB at rest, cough, minimal sputum. She was admitted for bronchitis, COPD, end-stage, hypoxemia, possible pneumonia. During the hospital stay, procalcitonin was low 0.06 but she was found to have UTI, high potassium. She was on doxycyclin and merrem pending final culture. This afternoon, she has a rapid response (1 of 2) for fever of 102.1 with shaking and some confusion. Rectal Tylenol was ordered and given to patient. Patient was noted to be hyperkalemic this morning with K of 5.6. She was given kayexalate this AM and had a BM. Septic workup ordered. Tonight, patient has another rapid response (2 of 2) for tachycardia, AMS. Patient had rapid shallow breathing, poor respiratory effort, and abdominal breathing pattern. ABG showed pH 7.16 and PCO2 105. Pt was intubated and brought to ICU ROS - (+) Fever. No cough congestion or URI. No chest pain. No dyspnea. No abdominal pain, but she has been constipated. No vomiting. No genitourinary symptoms. There is a small decubitus on the lumbar spine. PMH CAD s/p stents x2 HTN, HLD Moderate tricuspid regurgitation, LVEF 55% (Echo 09/23/17) [id number], Emphysema, Pulmonary HTN (RVSP 65) GERD Anemia of chronic disease and B12 deficiency Osteoporosis T12 compression fracture, Claustrophobia PSH Chlecystectomy, Appendectomy Partial small bowel resection Ovarian cyst excision Inguinal hernia repair CAD s/p PCI, stents x 2 FH non-contributory SH Former smoker, [id number] yrs, quit 10 years ago Denied alcohol/illicit drugs All NKDA Side effect of nausea/vomiting with codeine/hydromorphone/Myocins Med ASA, Plavis, lipitor 10 Brovana, Budesonide/Formoterl (Symbicor), Xopenex Ranolazine Dexilant Ultram PMD Dr. Valentine Past Patient History - Infectious Disease Hx of Infectious Diseases: None - Tetanus Immunizations Tetanus Immunization: Unknown - Past Medical History & Family History Past Medical History?: Yes - Past Social History Smoking Status: Former Smoker - CARDIAC Hx Cardiac Disorders: Yes (mi, CP) Hx Congestive Heart Failure: Yes Hx Hypercholesterolemia: Yes Hx Hypertension: Yes - PULMONARY Hx Chronic Obstructive Pulmonary Disease (COPD): Yes - NEUROLOGICAL Hx Neurological Disorder: Yes Hx Dizziness: Yes - HEENT Hx HEENT Problems: Yes Hx Cataracts: Yes (b/l no sx) - RENAL Hx Chronic Kidney Disease: No - ENDOCRINE/METABOLIC Hx Endocrine Disorders: No - HEMATOLOGICAL/ONCOLOGICAL Hx Anemia: Yes (blood transfusion) Hx Shingles: (pt denies having shingles) - INTEGUMENTARY Hx Dermatological Problems: Yes Other/Comment: 1cm x 1cm small opening at butt crack, above that 0.5cm x 0.2cm small opening, right buttock cheek pinpoint opening and redness - MUSCULOSKELETAL/RHEUMATOLOGICAL Hx Arthritis: Yes - GASTROINTESTINAL Hx Gastrointestinal Disorders: Yes (exploratry lap with 2 inches of bowel resected) Hx Diverticulitis: Yes Hx Gall Bladder Disease: Yes (CHLOECYSTECTOMY) Hx Gastroesophageal Reflux: Yes Other/Comment: celiac disease, umbilical hernia - GENITOURINARY/GYNECOLOGICAL Hx Genitourinary Disorders: Yes Hx Incontinence: Yes Hx Urinary Tract Infection: Yes - PSYCHIATRIC Hx Anxiety: Yes Hx Panic Symptoms: Yes Hx Substance Use: No - SURGICAL HISTORY Hx Appendectomy: Yes Hx Cardiac Catheterization: Yes Hx Cholecystectomy: Yes Hx Coronary Stent: Yes (x2 ptca) Other/Comment: ovarian cystectomy, exp lap 2" bowel resected, sx for obstruction , norma picc - ANESTHESIA Hx Anesthesia: Yes Hx Anesthesia Reactions: No Hx Malignant Hyperthermia: No Meds Allergies/Adverse Reactions: Allergies Allergy/AdvReac Type Severity Reaction Status Date / Time morphine Allergy VOMITING Verified 11/26/17 17:46 codeine AdvReac VOMITING Verified 11/26/17 17:46 hydromorphone HCl AdvReac VOMITING Verified 11/26/17 17:46 [From Dilaudid] MYOCINS AdvReac VOMITING Uncoded 11/26/17 17:46 - Medications Medications: Current Medications Acetaminophen (Tylenol 325 Mg Supp) 650 mg RC Q4H PRN PRN Reason: Fever >100.4 F Albuterol/Ipratropium (Duoneb 3 Mg/0.5 Mg (3 Ml) Ud) 3 ml IH [id number] [facility] Last Admin: 11/28/17 19:53 Dose: 3 ml Albuterol/Ipratropium (Duoneb 3 Mg/0.5 Mg (3 Ml) Ud) 3 ml IH Q2H PRN PRN Reason: Shortness of Breath Alprazolam (Xanax) 0.5 mg PO Q4 PRN; Protocol PRN Reason: Anxiety Last Admin: 11/28/17 09:33 Dose: 0.5 mg Budesonide (Pulmicort Respules) 0.5 mg IH [id number] [facility] Last Admin: 11/28/17 19:54 Dose: 0.5 mg Enoxaparin Sodium (Lovenox) 40 mg SC DAILY [facility] PRN Reason: Protocol Last Admin: 11/28/17 09:11 Dose: 40 mg Doxycycline Hyclate 100 mg/ (Sodium Chloride) 100 mls @ 100 mls/hr IVPB Q12 [facility] PRN Reason: Protocol Stop: 12/06/17 11:32 Last Admin: 11/28/17 09:10 Dose: 100 mls/hr Meropenem (Merrem Iv 1 Gm Premix) 50 mls @ 100 mls/hr IVPB Q8 [facility] PRN Reason: Protocol Stop: 12/06/17 11:46 Last Admin: 11/28/17 13:40 Dose: 100 mls/hr Insulin Human Regular (Humulin R Med) 0 units SC ACHS [facility] PRN Reason: Protocol Last Admin: 11/28/17 17:35 Dose: Not Given Methylprednisolone (Solu-Medrol) 20 mg IVP Q12 [facility] Last Admin: 11/28/17 09:11 Dose: 20 mg Mirtazapine (Remeron) 7.5 mg PO HS [facility] Last Admin: 11/27/17 21:16 Dose: 7.5 mg Ondansetron HCl (Zofran Inj) 4 mg IVP Q6H PRN PRN Reason: Nausea/Vomiting Last Admin: 11/28/17 13:41 Dose: 4 mg Sildenafil Citrate (Revatio) 20 mg PO BID [facility] Last Admin: 11/28/17 18:12 Dose: 20 mg Physical Exam - Constitutional Appears: In Acute Distress - Head Exam Head Exam: ATRAUMATIC, NORMAL INSPECTION, NORMOCEPHALIC - Eye Exam Eye Exam: EOMI, Normal appearance, PERRL. absent: Scleral icterus - ENT Exam ENT Exam: Mucous Membranes Moist - Neck Exam Additional comments: supple - Respiratory Exam Respiratory Exam: Decreased Breath Sounds, Respiratory Distress - Cardiovascular Exam Cardiovascular Exam: +S1, +S2 - GI/Abdominal Exam GI & Abdominal Exam: Soft - Extremities Exam Extremities exam: Positive for: pedal edema - Neurological Exam Neurological exam: Altered - Skin Skin Exam: Dry, Normal Color Results - Vital Signs Recent Vital Signs: Last Vital Signs Temp 99.7 F H 11/28/17 21:00 Pulse 115 H 11/28/17 21:00 Resp 18 11/28/17 18:00 BP 174/58 H 11/28/17 18:00 Pulse Ox 91 L 11/28/17 18:00 - Labs Result Diagrams: 11/28/17 23:10 11/28/17 23:10 Labs: Laboratory Results - last 24 hr 11/28/17 11/28/17 11/28/17 07:00 07:00 16:22 WBC 5.7 RBC 2.94 L Hgb 8.9 L Hct 30.1 L MCV 102.4 MCH 30.3 MCHC 29.6 L RDW 16.8 H Plt Count 283 MPV 10.4 pCO2 pO2 HCO3 ABG pH ABG Total CO2 ABG O2 Saturation ABG O2 Content ABG Base Excess ABG Hemoglobin ABG Carboxyhemoglobin POC ABG HHb (Measured) ABG Methemoglobin ABG O2 Capacity VBG pH VBG pCO2 VBG HCO3 VBG Total CO2 VBG O2 Sat (Calc) VBG Base Excess VBG Potassium Hgb O2 Saturation Glucose Lactate FiO2 Sodium 140 Potassium 5.6 H* Chloride 98 Carbon Dioxide 37 H Anion Gap 10 BUN 21 Creatinine 0.7 Est GFR ( Amer) > 60 Est GFR (Non-Af Amer) > 60 POC Glucose (mg/dL) 121 H Random Glucose 122 H Lactic Acid Calcium 10.0 Total Bilirubin 0.3 AST 24 ALT 25 Alkaline Phosphatase 42 Total Protein 5.4 L Albumin 2.9 L Globulin 2.5 Albumin/Globulin Ratio 1.2 Venous Blood Potassium 11/28/17 11/28/17 11/28/17 17:21 17:21 17:21 WBC RBC Hgb Hct MCV MCH MCHC RDW Plt Count MPV pCO2 pO2 28 L HCO3 ABG pH ABG Total CO2 ABG O2 Saturation ABG O2 Content ABG Base Excess ABG Hemoglobin ABG Carboxyhemoglobin POC ABG HHb (Measured) ABG Methemoglobin ABG O2 Capacity VBG pH 7.25 L VBG pCO2 94.0 H* VBG HCO3 41.2 H VBG Total CO2 44.1 H VBG O2 Sat (Calc) 59.0 VBG Base Excess 10.0 H VBG Potassium 5.5 H Hgb O2 Saturation Glucose 116 H Lactate 1.1 FiO2 21.0 Sodium 138.0 140 Potassium 5.5 H Chloride 101.0 98 Carbon Dioxide 37 H Anion Gap 11 BUN 26 H Creatinine 0.7 Est GFR ( Amer) > 60 Est GFR (Non-Af Amer) > 60 POC Glucose (mg/dL) Random Glucose 113 H Lactic Acid 1.0 Calcium 9.5 Total Bilirubin AST ALT Alkaline Phosphatase Total Protein Albumin Globulin Albumin/Globulin Ratio Venous Blood Potassium 5.5 H 11/28/17 11/28/17 21:30 21:30 WBC RBC Hgb Hct MCV MCH MCHC RDW Plt Count MPV pCO2 105 H* pO2 122.0 H HCO3 37.4 H ABG pH 7.16 L* ABG Total CO2 40.6 H ABG O2 Saturation 97.7 ABG O2 Content 12.2 L ABG Base Excess 6.7 H ABG Hemoglobin 8.9 L ABG Carboxyhemoglobin 1.9 H POC ABG HHb (Measured) 2.2 ABG Methemoglobin 0.4 ABG O2 Capacity 12.5 L VBG pH VBG pCO2 VBG HCO3 VBG Total CO2 VBG O2 Sat (Calc) VBG Base Excess VBG Potassium Hgb O2 Saturation 95.5 Glucose Lactate FiO2 50.0 Sodium Potassium Chloride Carbon Dioxide Anion Gap BUN Creatinine Est GFR ( Amer) Est GFR (Non-Af Amer) POC Glucose (mg/dL) 132 H Random Glucose Lactic Acid Calcium Total Bilirubin AST ALT Alkaline Phosphatase Total Protein Albumin Globulin Albumin/Globulin Ratio Venous Blood Potassium Assessment & Plan - Assessment and Plan (Free Text) Plan: Ms. Blackburn, 82F, former smoker, with PMHx CAD s/p stent, O2 dependent COPD, emphysema, pulmonary hypertension, was transferred to [facility] [place] [place] [facility] for SOB at rest, cough, failed outpatient treatment. She was admitted for bronchitis, COPD, end-stage, hypoxemia, possible pneumonia. During the hospital stay, procalcitonin was low 0.06 but she was found to have UTI, high potassium. She was on doxycyclin and merrem pending final culture. She has Tmax of 102.1 today with hyperlalemia at 5.6. Tonight patient had rapid shallow breathing, poor respiratory effort, and abdominal breathing pattern. ABG showed pH 7.16 and PCO2 105. Pt was intubated for hypercapnic respiratory failure, likely due to COPD exacerbation. Comparison CXR reviews new patchy consolidation likely new pneumonia, perhaps due to aspiration. Neuro - Ams likely from hypercapnia/CO2 retention - Sedated, intubated on propofol gtt Pulm - Repeat procalc - rapid flu swab - Duoneb Q6, Q2 PRN - Budesonde, Revatio - Continue doxy, merem. ID added tamiflu - solu-medrol increases to 40q8 - OG tube - repeat ABG 11:30 - 5ft3 ideal body wt = 400 rate 18 peep 5 100% - Repeat ABG: PH 7.39, PCO2 61, PO2 398 --> PRVC 400, rate 14, peep5, FiO2 40 Cardio - ASA rectal for Hx CAD s/p stent - trend cardiac enzymes x 3 - NS@100 - 12.5 metoprolol bid po - lipid panel for statin - strict i/o Renal - berman, strict i/o - calcium gluconate 1amp, 1am D50, insulin 10 IV - HOLD albuterol (10mg) x 1 - tachycardia - recheck BMP Endo - calcium gluo 1amp, 1am D50, insulin 10 IV, - albuterol (10mg) x 1 GI - OG tube - protonix PO ID - Negative flu screen - Pending mrsa screen - continue antibiotics + tamiflu - Urine culture Gram pos cocci - fever control. DVT = lovenox s/r/d/w Dr. Kat <Jamey Kat Q - Last Filed: 11/29/17 05:14> Meds - Medications Medications: Current Medications Acetaminophen (Tylenol 325 Mg Supp) 650 mg RC Q4H PRN PRN Reason: Fever >100.4 F Last Admin: 11/29/17 00:05 Dose: 650 mg Albuterol/Ipratropium (Duoneb 3 Mg/0.5 Mg (3 Ml) Ud) 3 ml IH [id number] [facility] Last Admin: 11/29/17 01:34 Dose: 3 ml Albuterol/Ipratropium (Duoneb 3 Mg/0.5 Mg (3 Ml) Ud) 3 ml IH Q2H PRN PRN Reason: Shortness of Breath Alprazolam (Xanax) 0.5 mg PO Q4 PRN; Protocol PRN Reason: Anxiety Last Admin: 11/28/17 09:33 Dose: 0.5 mg Aspirin (Aspirin Supp) 300 mg RC DAILY [facility] Budesonide (Pulmicort Respules) 0.5 mg IH [id number] [facility] Last Admin: 11/28/17 19:54 Dose: 0.5 mg Enoxaparin Sodium (Lovenox) 40 mg SC DAILY [facility] PRN Reason: Protocol Last Admin: 11/28/17 09:11 Dose: 40 mg Doxycycline Hyclate 100 mg/ (Sodium Chloride) 100 mls @ 100 mls/hr IVPB Q12 [facility]FFERY PRN Reason: Protocol Stop: 12/06/17 11:32 Last Admin: 11/28/17 23:00 Dose: 100 mls/hr Meropenem (Merrem Iv 1 Gm Premix) 50 mls @ 100 mls/hr IVPB Q8 [facility] PRN Reason: Protocol Stop: 12/06/17 11:46 Last Admin: 11/28/17 22:36 Dose: 100 mls/hr Propofol (Diprivan) 1,000 mg in 100 mls @ 1.996 mls/hr IV .Q24H PRN; Protocol; 5 MCG/KG/MIN PRN Reason: TITRATE PER MD ORDER Last Titration: 11/28/17 23:40 Dose: 25 mcg/kg/min, 9.981 mls/hr Sodium Chloride (Sodium Chloride 0.9%) 1,000 mls @ 100 mls/hr IV .Q10H [facility] Last Admin: 11/28/17 23:10 Dose: 100 mls/hr Vancomycin HCl (Vancomycin 1gm) 1 gm in 250 mls @ 167 mls/hr IVPB Q12H [facility] PRN Reason: Protocol Insulin Human Regular (Humulin R Med) 0 units SC ACHS [facility] PRN Reason: Protocol Last Admin: 11/28/17 22:50 Dose: Not Given Methylprednisolone (Solu-Medrol) 40 mg IVP Q8 [facility] Metoprolol Tartrate (Lopressor) 12.5 mg PO BID [facility] Last Admin: 11/29/17 00:45 Dose: 12.5 mg Mirtazapine (Remeron) 7.5 mg PO HS [facility] Last Admin: 11/28/17 22:37 Dose: Not Given Ondansetron HCl (Zofran Inj) 4 mg IVP Q6H PRN PRN Reason: Nausea/Vomiting Last Admin: 11/28/17 13:41 Dose: 4 mg Oseltamivir Phosphate (Tamiflu) 30 mg PO BID [facility] PRN Reason: Protocol Stop: 12/03/17 23:16 Last Admin: 11/29/17 00:15 Dose: 30 mg Pantoprazole Sodium (Protonix Inj) 40 mg IVP DAILY [facility] Sildenafil Citrate (Revatio) 20 mg PO BID [facility] Last Admin: 11/28/17 18:12 Dose: 20 mg Results - Vital Signs Recent Vital Signs: Last Vital Signs Temp 99.3 F 11/29/17 04:32 Pulse 96 H 11/29/17 04:32 Resp 14 11/29/17 04:32 BP 102/56 L 11/29/17 03:00 Pulse Ox 97 11/29/17 04:32 - Labs Result Diagrams: 11/28/17 23:10 11/28/17 23:10 Labs: Laboratory Results - last 24 hr 11/28/17 11/28/17 11/28/17 07:00 07:00 16:22 WBC 5.7 RBC 2.94 L Hgb 8.9 L Hct 30.1 L MCV 102.4 MCH 30.3 MCHC 29.6 L RDW 16.8 H Plt Count 283 MPV 10.4 Gran % Lymph % (Auto) [place] % (Auto) Eos % (Auto) Baso % (Auto) Gran # Lymph # (Auto) [place] # (Auto) Eos # (Auto) Baso # (Auto) pCO2 pO2 HCO3 ABG pH ABG Total CO2 ABG O2 Saturation ABG O2 Content ABG Base Excess ABG Hemoglobin ABG Carboxyhemoglobin POC ABG HHb (Measured) ABG Methemoglobin ABG O2 Capacity ABG Potassium VBG pH VBG pCO2 VBG HCO3 VBG Total CO2 VBG O2 Sat (Calc) VBG Base Excess VBG Potassium Hgb O2 Saturation Glucose Lactate Mechanical Rate FiO2 Tidal Volume PEEP Sodium 140 Potassium 5.6 H* Chloride 98 Carbon Dioxide 37 H Anion Gap 10 BUN 21 Creatinine 0.7 Est GFR ( Amer) > 60 Est GFR (Non-Af Amer) > 60 POC Glucose (mg/dL) 121 H Random Glucose 122 H Lactic Acid Calcium 10.0 Total Bilirubin 0.3 AST 24 ALT 25 Alkaline Phosphatase 42 Lactate Dehydrogenase Total Creatine Kinase Troponin I Total Protein 5.4 L Albumin 2.9 L Globulin 2.5 Albumin/Globulin Ratio 1.2 Arterial Blood Potassium Venous Blood Potassium Influenza Typ A,B (EIA) 11/28/17 11/28/17 11/28/17 17:21 17:21 17:21 WBC RBC Hgb Hct MCV MCH MCHC RDW Plt Count MPV Gran % Lymph % (Auto) [place] % (Auto) Eos % (Auto) Baso % (Auto) Gran # Lymph # (Auto) [place] # (Auto) Eos # (Auto) Baso # (Auto) pCO2 pO2 28 L HCO3 ABG pH ABG Total CO2 ABG O2 Saturation ABG O2 Content ABG Base Excess ABG Hemoglobin ABG Carboxyhemoglobin POC ABG HHb (Measured) ABG Methemoglobin ABG O2 Capacity ABG Potassium VBG pH 7.25 L VBG pCO2 94.0 H* VBG HCO3 41.2 H VBG Total CO2 44.1 H VBG O2 Sat (Calc) 59.0 VBG Base Excess 10.0 H VBG Potassium 5.5 H Hgb O2 Saturation Glucose 116 H Lactate 1.1 Mechanical Rate FiO2 21.0 Tidal Volume PEEP Sodium 138.0 140 Potassium 5.5 H Chloride 101.0 98 Carbon Dioxide 37 H Anion Gap 11 BUN 26 H Creatinine 0.7 Est GFR ( Amer) > 60 Est GFR (Non-Af Amer) > 60 POC Glucose (mg/dL) Random Glucose 113 H Lactic Acid 1.0 Calcium 9.5 Total Bilirubin AST ALT Alkaline Phosphatase Lactate Dehydrogenase Total Creatine Kinase Troponin I Total Protein Albumin Globulin Albumin/Globulin Ratio Arterial Blood Potassium Venous Blood Potassium 5.5 H Influenza Typ A,B (EIA) 11/28/17 11/28/17 11/28/17 17:21 21:30 21:30 WBC RBC Hgb Hct MCV MCH MCHC RDW Plt Count MPV Gran % Lymph % (Auto) [place] % (Auto) Eos % (Auto) Baso % (Auto) Gran # Lymph # (Auto) [place] # (Auto) Eos # (Auto) Baso # (Auto) pCO2 105 H* pO2 122.0 H HCO3 37.4 H ABG pH 7.16 L* ABG Total CO2 40.6 H ABG O2 Saturation 97.7 ABG O2 Content 12.2 L ABG Base Excess 6.7 H ABG Hemoglobin 8.9 L ABG Carboxyhemoglobin 1.9 H POC ABG HHb (Measured) 2.2 ABG Methemoglobin 0.4 ABG O2 Capacity 12.5 L ABG Potassium VBG pH VBG pCO2 VBG HCO3 VBG Total CO2 VBG O2 Sat (Calc) VBG Base Excess VBG Potassium Hgb O2 Saturation 95.5 Glucose Lactate Mechanical Rate FiO2 50.0 Tidal Volume PEEP Sodium Potassium Chloride Carbon Dioxide Anion Gap BUN Creatinine Est GFR ( Amer) Est GFR (Non-Af Amer) POC Glucose (mg/dL) 132 H Random Glucose Lactic Acid Calcium Total Bilirubin AST ALT Alkaline Phosphatase Lactate Dehydrogenase 273 L Total Creatine Kinase < 20 L Troponin I 0.02 D Total Protein Albumin Globulin Albumin/Globulin Ratio Arterial Blood Potassium Venous Blood Potassium Influenza Typ A,B (EIA) 11/28/17 11/28/17 11/28/17 22:47 23:10 23:10 WBC 5.6 RBC 2.95 L Hgb 9.0 L Hct 31.3 L MCV 106.1 H D MCH 30.5 MCHC 28.8 L RDW 16.9 H Plt Count 304 MPV 10.2 Gran % 78.5 H Lymph % (Auto) 10.6 L [place] % (Auto) 10.5 H Eos % (Auto) 0.2 L Baso % (Auto) 0.2 Gran # 4.43 Lymph # (Auto) 0.6 L [place] # (Auto) 0.6 Eos # (Auto) 0.0 Baso # (Auto) 0.01 pCO2 pO2 HCO3 ABG pH ABG Total CO2 ABG O2 Saturation ABG O2 Content ABG Base Excess ABG Hemoglobin ABG Carboxyhemoglobin POC ABG HHb (Measured) ABG Methemoglobin ABG O2 Capacity ABG Potassium VBG pH VBG pCO2 VBG HCO3 VBG Total CO2 VBG O2 Sat (Calc) VBG Base Excess VBG Potassium Hgb O2 Saturation Glucose Lactate Mechanical Rate FiO2 Tidal Volume PEEP Sodium 140 Potassium 5.5 H Chloride 97 L Carbon Dioxide 39 H Anion Gap 10 BUN 30 H Creatinine 0.8 Est GFR ( Amer) > 60 Est GFR (Non-Af Amer) > 60 POC Glucose (mg/dL) 131 H Random Glucose 105 Lactic Acid Calcium 9.7 Total Bilirubin 0.4 AST 19 ALT 26 Alkaline Phosphatase 45 Lactate Dehydrogenase 255 L Total Creatine Kinase < 20 L Troponin I 0.05 D Total Protein 5.1 L Albumin 2.8 L Globulin 2.3 Albumin/Globulin Ratio 1.2 Arterial Blood Potassium Venous Blood Potassium Influenza Typ A,B (EIA) 11/28/17 11/29/17 11/29/17 23:44 01:08 04:45 WBC RBC Hgb Hct MCV MCH MCHC RDW Plt Count MPV Gran % Lymph % (Auto) [place] % (Auto) Eos % (Auto) Baso % (Auto) Gran # Lymph # (Auto) [place] # (Auto) Eos # (Auto) Baso # (Auto) pCO2 61 H 53 H pO2 398.0 H 62.0 L HCO3 36.9 H 35.2 H ABG pH 7.39 7.43 ABG Total CO2 38.8 H 36.8 H ABG O2 Saturation 98.1 H 96.3 ABG O2 Content 10.6 L ABG Base Excess 9.6 H 9.7 H ABG Hemoglobin 8.0 L ABG Carboxyhemoglobin 1.9 H POC ABG HHb (Measured) 3.6 ABG Methemoglobin 0.6 ABG O2 Capacity 11.0 L ABG Potassium 5.0 VBG pH VBG pCO2 VBG HCO3 VBG Total CO2 VBG O2 Sat (Calc) VBG Base Excess VBG Potassium Hgb O2 Saturation 93.8 L Glucose 117 H Lactate 1.0 Mechanical Rate 18 FiO2 100.0 40.0 Tidal Volume 400 PEEP 5 Sodium 137.0 Potassium Chloride 106.0 Carbon Dioxide Anion Gap BUN Creatinine Est GFR ( Amer) Est GFR (Non-Af Amer) POC Glucose (mg/dL) Random Glucose Lactic Acid Calcium Total Bilirubin AST ALT Alkaline Phosphatase Lactate Dehydrogenase Total Creatine Kinase Troponin I Total Protein Albumin Globulin Albumin/Globulin Ratio Arterial Blood Potassium 5.0 Venous Blood Potassium Influenza Typ A,B (EIA) Negative for flu a/b Attending/Attestation - Attestation I have personally seen and examined this patient.: Yes I have fully participated in the care of the patient.: Yes I have reviewed all pertinent clinical information: Yes Notes (Text): 11/29/17 05:14 I agree with the above mentioned note and exam by the resident with the addition /exception of the followin82 y/o female with a PMHx Htn, COPD on home oxygen, CAD, Pul hypertension was admitted for a copd exacerbation. She failed to respond to treatment on the medical floor and developed hypercapnic respiratory failure requiring intubation and mechanical ventilation. Patient also spiked a fever of 102F; she is on coverage with IV Abx, ID also empirically covering the patient with tamiflu as well (rapid flu pending). Initial procalcitonin was negative; repeat ordered. IV solumedrol increased to Q8; duoneb tx Q6; ventilator settings adjusted and C02 now back near her baseline, pH corrected Cxr showing ?new infiltrates in the SHAUN I was informed by the residents that the patient's mentation was altered and less responsive; attributing it to c02 >100; will wean sedation in AM and place her on a SBT all labs and images available thus far have been reviewed total time of care: 40 minutes
[2017-11-28] MEDS: Propofol 10 mg/ml 1,000 MG/100 ML VIAL IV PRN (22:20)
[2017-11-28] MEDS ORDERED: Dextrose 50% SYRINGE Inj (50 ml) IVP ONE (22:45)
[2017-11-28] MEDS ORDERED: Insulin Regular 1 UNITS/0.01 ML ML IV ONE (23:00)
[2017-11-28] MEDS ORDERED: MethylPREDNISolone 40 mg Vial IVP STA (23:02)
[2017-11-28] MEDS: Sodium Chloride 0.9% 1,000 ML IV SCH (23:10)
[2017-11-28 23:12] LABS: TROPONIN I 0.02 ng/mL
[2017-11-28 23:43] LABS: BASO # 0.01 K/mm3 (0.0-2.0); BASO % 0.2 % (0.0-3.0); EOS % 0.2 % (1.5-5.0); GRAN # 4.43 (1.4-6.5); GRAN % 78.5 % (50.0-68.0); LYMPH # 0.6 (1.2-3.4); LYMPH % 10.6 % (22.0-35.0); MEAN CORPUSCULAR HEMOGLOBIN 30.5 pg (25.0-35.0); MEAN CORPUSCULAR HGB CONC 28.8 g/dl (31.0-37.0); MEAN PLATELET VOLUME 10.2 fl (7.0-11.0); MONO # 0.6 (0.1-0.6); MONO % 10.5 % (1.0-6.0); RBC 2.95 10^6/uL (3.5-6.1); RED CELL DISTRIBUTION WIDTH 16.9 % (11.5-14.5); WHITE BLOOD COUNT 5.6 10^3/ul (4.5-11.0)
[2017-11-28 23:47] LABS: MEAN CELL VOLUME 106.1 fl (80.0-105.0)
[2017-11-28 23:48] LABS: ARTERIAL BLOOD GAS HCO3 36.9 mmol/L (21-28); ARTERIAL BLOOD GAS O2 SAT 98.1 % (95-98); ARTERIAL BLOOD GAS PCO2 61 mm/Hg (35-45); ARTERIAL BLOOD GAS PH 7.39 (7.35-7.45); ARTERIAL BLOOD GAS TCO2 38.8 mmol.L (22-28)
--- NOTE | 2017-11-29 00:12 | PCM.RRT ---
FINANCE PROFESSIONAL Nurse Assessment - Situation Date: 11/28/17 Time FINANCE PROFESSIONAL was called: 21:27 FINANCE PROFESSIONAL Responder Arrival Time: 21:29 FINANCE PROFESSIONAL Location:: [address] [place] [address] Room Number: [id number] bed 1 FINANCE PROFESSIONAL Reason for Call: Respiratory Distress FINANCE PROFESSIONAL Called By: Physician - IV IV Inserted during FINANCE PROFESSIONAL?: No - Respiratory Oxygen Delivery Method: Nasal Cannula @L/min Oxygen Flow Rate: 4 Received Nebulizer Treatments:: No Was the Patient Ventilated with Bag/Mask 100% O2?: Yes Secretions Suctioned?: Yes Was the Patient Intubated?: Yes (7.5) Was the Patient Placed on a Ventilator?: No - Medication Medications Administered During FINANCE PROFESSIONAL: propofol 10mg IVP - Diagnostic Test Ordered EKG: No Chest X-Ray: Yes CT Scan: No - Stat Labs Ordered FINANCE PROFESSIONAL Stat Labs Ordered: ABG CPR started during FINANCE PROFESSIONAL?: No - Vital Signs Vital Sign: Rapid Response Vital Sign Blood Pressure 110/51 Pulse Rate 116 Respiratory Rate 22 Temperature 99.7 F Oxygen Saturation 92 - Finger Stick Blood Glucose Finger Stick Blood Glucose: 132 - Time FINANCE PROFESSIONAL Ended Time FINANCE PROFESSIONAL Ended: 22:02 - Vital Signs at end of FINANCE PROFESSIONAL Vital Signs at end of FINANCE PROFESSIONAL: Rapid Response End Vital Sign Blood Pressure 154/99 Pulse Rate 132 Respiratory Rate 20 O2 Sat by Pulse Oximetry 94 - Recommendations 5) FINANCE PROFESSIONAL Level of Care Recommendations: Transfer to ICU Notifications: Attending Physician I.Reason for FINANCE PROFESSIONAL - A) Acute Change in Patient: (Select all that apply): Staff member or family is worried about patient, Acute change in mental status - Neurological Status (Select all that apply): Responsive, Disoriented, Confused, Lethargic. absent: Oriented, Verbal, Follows Commands - Respiratory Oxygen Delivery Method: Nasal Cannula @L/min Oxygen Flow Rate: 4 - Constitutional Appears: In Acute Distress (shallow breathing noted, accessory muscles) - Head Head Exam: ATRAUMATIC, NORMAL INSPECTION - Eyes Eye Exam: EOMI - Respiratory Exam Respiratory Exam: Decreased Breath Sounds, Respiratory Distress. absent: Rales , Rhonchi, Wheezes - Cardiovascular Exam Cardiovascular Exam: Tachycardia - GI/Abdominal Exam GI & Abdominal Exam: Soft, Normal Bowel Sounds. absent: Distended, Tenderness - Neurological Exam Neurological Exam: Altered - Extremities Exam Extremities Exam: Normal Inspection Plan - Assessment of Findings&Treatment Plan FINANCE PROFESSIONAL was called for patient due to nurse feeling patient's mental status changed and for tachycardia and shaking. Upon arrival of FINANCE PROFESSIONAL team, the patient is noted to be responsive but lethargic and not following commands. Chart was reviewed and showed that patient had FINANCE PROFESSIONAL earlier in the day due to similar symptoms and VBG pCO2 at that time was 94. Now, Patient was placed on BiPAP and ABG drawn, which showed respiratory acidosis w/ pH 7.16 and pCO2 1.5. Patient noted to have rapid shallow breathing, poor respiratory effort, and abdominal breathing pattern. No improvement was noted on BiPAP and patient was intubated and brought to ICU. Restraints and propofol were required for safe intubation. 82yo F admitted for sepsis likely 2/2 penumonia vs COPD exacerbation; FINANCE PROFESSIONAL called for AMS and tachycardia, and patient found to be in hyperapneic respiratory failure. Intubated for protection of airway and proper ventilation. BP was stable throughout FINANCE PROFESSIONAL. Plan: - Patient will be transferred to ICU for further care and vent management - CXR during FINANCE PROFESSIONAL showed unchanged vascular congestion as read by me - follow up CXR to confirm proper placement - continued management per ICU team, please refer to ICU consult for complete information Patient was seen, examined and discussed with attending, Dr. Johan Bullard PGY1
[2017-11-29 00:30] LABS: ALB/GLOB RATIO 1.2 (1.1-1.8); ALBUMIN 2.8 g/dL (3.0-4.8); ALT/SGPT 26 U/L (7-56); AST/SGOT 19 U/L (14-36); BLOOD UREA NITROGEN 30 mg/dL (7-21); CALCIUM 9.7 mg/dL (8.4-10.5); GFR AFRICAN-AMERICAN > 60; GFR NON-AFRICAN AMERICAN > 60
--- NOTE | 2017-11-29 00:47 | CON ---
DATE: 11/28/2017 CARDIOLOGY CONSULTATION HISTORY OF PRESENT ILLNESS: The patient is an 82-year-old woman who presents with shortness of breath. The patient was in subacute rehab. PAST MEDICAL HISTORY: Includes end-stage COPD. She has been in multiple admissions with similar symptoms. Recently, the patient presented to the hospital for once again respiratory failure. She underwent a CT scan of the chest, which showed no pulmonary embolism. The patient is also status post PTCA and stent in the past. She denies angina. SOCIAL HISTORY: Unavailable. REVIEW OF SYSTEMS: Unavailable. PHYSICAL EXAMINATION: GENERAL: The patient is lethargic in bed. VITAL SIGNS: Blood pressure is 123/64, the heart rate is in the 90s. NECK: Negative JVD. LUNGS: Without decreased breath sounds. HEART: Reveal S1 and S2. EXTREMITIES: Without edema. EKG shows no acute changes. LABORATORY DATA: BUN and creatinine are unremarkable. Hemoglobin is 8.9, white count is 5.7. Chest x-ray shows no acute changes. IMPRESSION: 1. Exacerbation of chronic obstructive pulmonary disease. 2. Anemia. 3. Stable angina. 4. Coronary artery disease. 5. Dyspnea. PLAN: Given these findings, there is no evidence for acute coronary syndrome. Her troponin is negative. The treatment is directed at severe COPD. Harrison Echavarria MD
--- NOTE | 2017-11-29 01:33 | PCM.PROC ---
Procedures Attestation:: I certify that I have explained the specified Operation(s) or Procedure(s), risks, benefits and reasonable alternatives to the Patient and/or other person responsible. The opportunity was given to ask questions and all questions answered - Intubation Time Out Performed: No Sedative: Other (Propofol) Mg Given: 10 Laryngoscope: Marcela ET Tube Size: 7.5 ET Tube Secured at Depth: 25 ET Tube Secured Locarion: Teeth ET Tube Placement Confirmation: Visualized Passing Through Cords, Breath Sounds Equal Bilaterally, No Breath Sounds Over Epigastrum, Confirmation w/Capnometry Patient Tolerated Procedure: No Complications Procedure Immediate Complications: None
[2017-11-29] MEDS: Albuterol-Ipratrop 3 mg / 0.5 (3 ml) UD IH SCH ×4 (01:34→21:47)
[2017-11-29 02:11] LABS: TROPONIN I 0.05 ng/mL
[2017-11-29] MEDS ORDERED: Albuterol 0.5% Inhal Sol (5 mg/ ml) 20 ml IH ONE (03:30)
[2017-11-29] MEDS ORDERED: Albuterol 0.083% Inhal Sol (2.5 mg/3 mL) UD ONE (04:32)
[2017-11-29 04:52] LABS: ARTERIAL BLOOD GAS HCO3 35.2 mmol/L (21-28); ARTERIAL BLOOD GAS O2 CONTENT 10.6 ML/dl (15-23); ARTERIAL BLOOD GAS O2 SAT 96.3 % (95-98); ARTERIAL BLOOD GAS PCO2 53 mm/Hg (35-45); ARTERIAL BLOOD GAS PH 7.43 (7.35-7.45); ARTERIAL BLOOD GAS TCO2 36.8 mmol.L (22-28)
[2017-11-29] MEDS: Vancomycin 1gm in NS 250ml 1 GM/250 ML BAG IVPB SCH ×2 (05:12→17:40)
[2017-11-29] MEDS: MethylPREDNISolone 40 mg Vial IVP SCH ×3 (05:12→21:20)
[2017-11-29] MEDS: Propofol 10 mg/ml 1,000 MG/100 ML VIAL IV PRN (06:19)
[2017-11-29] MEDS: Meropenem IV 1 gm in NS 50 ML IVPB SCH ×3 (06:20→21:21)
[2017-11-29 06:59] LABS: BASO # 0.01 K/mm3 (0.0-2.0); BASO % 0.2 % (0.0-3.0); GRAN # 4.32 (1.4-6.5); GRAN % 83.4 % (50.0-68.0); HEMOGLOBIN 8.1 g/dL (12.0-16.0); LYMPH # 0.6 (1.2-3.4); LYMPH % 11.4 % (22.0-35.0); MEAN CORPUSCULAR HEMOGLOBIN 30.6 pg (25.0-35.0); MEAN CORPUSCULAR HGB CONC 29.7 g/dl (31.0-37.0); MEAN PLATELET VOLUME 10.2 fl (7.0-11.0); MONO # 0.3 (0.1-0.6); RBC 2.65 10^6/uL (3.5-6.1); RED CELL DISTRIBUTION WIDTH 16.6 % (11.5-14.5); WHITE BLOOD COUNT 5.2 10^3/ul (4.5-11.0)
[2017-11-29] MEDS: Budesonide 0.5 mg/2 ml Inhal Susp UD IH SCH ×2 (07:00→21:47)
[2017-11-29 07:23] LABS: ALB/GLOB RATIO 1.1 (1.1-1.8); ALBUMIN 2.4 g/dL (3.0-4.8); ALT/SGPT 24 U/L (7-56); AST/SGOT 20 U/L (14-36); BLOOD UREA NITROGEN 30 mg/dL (7-21); CALCIUM 9.4 mg/dL (8.4-10.5); GFR AFRICAN-AMERICAN > 60; GFR NON-AFRICAN AMERICAN > 60; HDL CHOLESTEROL 43 mg/dL (29-60)
[2017-11-29 07:31] LABS: TROPONIN I 0.03 ng/mL
[2017-11-29 07:36] LABS: LDL CHOLESTEROL 59 mg/dL (0-129)
--- NOTE | 2017-11-29 07:54 | RAD ---
HISTORY: confirm ET placement COMPARISON: Portable chest 11/28/2017 9:38 p.m.. FINDINGS: An endotracheal tube is now identified placed terminating in the plane of the trachea 3 cm above the iris. LUNGS: No acute alveolar infiltrate bilaterally once again. Chronic interstitial pulmonary changes are reiterated. PLEURA: No significant pleural effusion identified, no pneumothorax apparent. CARDIOVASCULAR: Normal. OSSEOUS STRUCTURES: Post vertebroplasty is again seen at the inferior thoracic spine. VISUALIZED UPPER ABDOMEN: Surgical clips again noted right upper quadrant. OTHER FINDINGS: None. IMPRESSION: Status post endotracheal intubation as described above. No acute infiltrate, pleural effusion or pneumothorax appreciable. Chronic interstitial pulmonary changes reiterated bilaterally.
--- NOTE | 2017-11-29 07:56 | RAD ---
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 FINDINGS: LUNGS: Chronic interstitial pulmonary disease again appreciated throughout the bilateral lung jiménez without interval alveolar infiltrate bilaterally. PLEURA: No significant pleural effusion identified, no pneumothorax apparent. CARDIOVASCULAR: Normal. OSSEOUS STRUCTURES: Vertebroplasty changes again seen the inferior thoracic spine as well as surgical clips right upper quadrant abdomen. VISUALIZED UPPER ABDOMEN: As above. OTHER FINDINGS: None. IMPRESSION: Stable chronic interstitial pulmonary changes as described above. No acute alveolar infiltrate, pleural effusion or pneumothorax identified.
--- NOTE | 2017-11-29 07:58 | RAD ---
HISTORY: intubated COMPARISON: Portable chest radiograph 11/28/2017, 10:22 p.m.. FINDINGS: Endotracheal tube is unchanged in position. Nasogastric tube is in place with tip terminating just distal to the esophagogastric junction. Advancement further into the stomach is advised some 10-15 cm. LUNGS: No interval acute alveolar infiltrate bilaterally. Chronic pulmonary fibrotic pattern again appreciated. PLEURA: Trace right pleural effusion is in question. None is seen the left. No pneumothorax bilaterally. CARDIOVASCULAR: Normal. OSSEOUS STRUCTURES: Vertebroplasty changes again noted at the inferior thoracic spine. VISUALIZED UPPER ABDOMEN: Normal. OTHER FINDINGS: None. IMPRESSION: Trace right pleural effusion. No acute interval findings otherwise. Chronic interstitial pulmonary changes again appreciated. Nasogastric tube is been placed with the tip terminating just distal to the esophagogastric junction. Advancing the the tube further into the stomach some 10-15 cm recommended, followed by confirmation radiograph.
[2017-11-29 08:54] LABS: ARTERIAL BLOOD GAS HCO3 36.4 mmol/L (21-28); ARTERIAL BLOOD GAS O2 CONTENT 10.6 ML/dl (15-23); ARTERIAL BLOOD GAS O2 SAT 96.3 % (95-98); ARTERIAL BLOOD GAS PCO2 63 mm/Hg (35-45); ARTERIAL BLOOD GAS PH 7.37 (7.35-7.45); ARTERIAL BLOOD GAS TCO2 38.3 mmol.L (22-28)
[2017-11-29] MEDS: Sildenafil 20 MG TAB PO SCH ×2 (09:44→17:39)
[2017-11-29] MEDS: Enoxaparin 40 mg Syringe SC SCH (09:55)
--- NOTE | 2017-11-29 10:14 | CP.PCM.PN ---
Subjective - Date & Time of Evaluation Date of Evaluation: 11/29/17 Time of Evaluation: 09:40 - Subjective Subjective: Noted events overnight, had fevers during the day, became lethargic and had to be sent to the ICU and was intubated. Patient is now extubated, awake, still groggy but communicative and follows commands. No fevers this morning, no diarrhea, no nausea, still needs BiPAP. Objective - Vital Signs/Intake and Output Vital Signs (last 24 hours): Temp Pulse Resp BP Pulse Ox 99 F 105 H 14 102/56 L 97 11/29/17 05:58 11/29/17 05:58 11/29/17 07:04 11/29/17 03:00 11/29/17 07:04 Intake and Output: 11/29/17 11/29/17 06:59 18:59 Intake Total 1200 Output Total 300 Balance 900 - Medications Medications: Current Medications Acetaminophen (Tylenol 325 Mg Supp) 650 mg RC Q4H PRN PRN Reason: Fever >100.4 F Last Admin: 11/29/17 00:05 Dose: 650 mg Albuterol/Ipratropium (Duoneb 3 Mg/0.5 Mg (3 Ml) Ud) 3 ml IH [id number] JEFFERY Last Admin: 11/29/17 07:00 Dose: 3 ml Albuterol/Ipratropium (Duoneb 3 Mg/0.5 Mg (3 Ml) Ud) 3 ml IH Q2H PRN PRN Reason: Shortness of Breath Alprazolam (Xanax) 0.5 mg PO Q4 PRN; Protocol PRN Reason: Anxiety Last Admin: 11/28/17 09:33 Dose: 0.5 mg Aspirin (Aspirin Supp) 300 mg RC DAILY [facility] Budesonide (Pulmicort Respules) 0.5 mg IH [id number] [facility] Last Admin: 11/29/17 07:00 Dose: 0.5 mg Enoxaparin Sodium (Lovenox) 40 mg SC DAILY [facility] PRN Reason: Protocol Last Admin: 11/28/17 09:11 Dose: 40 mg Doxycycline Hyclate 100 mg/ (Sodium Chloride) 100 mls @ 100 mls/hr IVPB Q12 JEFFERY PRN Reason: Protocol Stop: 12/06/17 11:32 Last Admin: 11/28/17 23:00 Dose: 100 mls/hr Meropenem (Merrem Iv 1 Gm Premix) 50 mls @ 100 mls/hr IVPB Q8 [facility] PRN Reason: Protocol Stop: 12/06/17 11:46 Last Admin: 11/29/17 06:20 Dose: 100 mls/hr Propofol (Diprivan) 1,000 mg in 100 mls @ 1.996 mls/hr IV .Q24H PRN; Protocol; 5 MCG/KG/MIN PRN Reason: TITRATE PER MD ORDER Last Admin: 11/29/17 06:19 Dose: 20 mcg/kg/min, 7.985 mls/hr Sodium Chloride (Sodium Chloride 0.9%) 1,000 mls @ 100 mls/hr IV .Q10H [facility] Last Admin: 11/28/17 23:10 Dose: 100 mls/hr Vancomycin HCl (Vancomycin 1gm) 1 gm in 250 mls @ 167 mls/hr IVPB Q12H JEFFERY PRN Reason: Protocol Last Admin: 11/29/17 05:12 Dose: 167 mls/hr Insulin Human Regular (Humulin R Med) 0 units SC ACHS [facility] PRN Reason: Protocol Last Admin: 11/28/17 22:50 Dose: Not Given Methylprednisolone (Solu-Medrol) 40 mg IVP Q8 [facility] Last Admin: 11/29/17 05:12 Dose: 40 mg Metoprolol Tartrate (Lopressor) 12.5 mg PO BID [facility] Last Admin: 11/29/17 00:45 Dose: 12.5 mg Mirtazapine (Remeron) 7.5 mg PO HS [facility] Last Admin: 11/28/17 22:37 Dose: Not Given Ondansetron HCl (Zofran Inj) 4 mg IVP Q6H PRN PRN Reason: Nausea/Vomiting Last Admin: 11/28/17 13:41 Dose: 4 mg Oseltamivir Phosphate (Tamiflu) 30 mg PO BID [facility] PRN Reason: Protocol Stop: 12/03/17 23:16 Last Admin: 11/29/17 00:15 Dose: 30 mg Pantoprazole Sodium (Protonix Inj) 40 mg IVP DAILY [facility] Sildenafil Citrate (Revatio) 20 mg PO BID [facility] Last Admin: 11/28/17 18:12 Dose: 20 mg - Labs Labs: 11/29/17 05:45 11/29/17 05:45 PT 12.1 SECONDS (9.4-12.5) 11/26/17 18:00 INR 1.06 (0.93-1.08) 11/26/17 18:00 APTT 28.6 Seconds (25.1-36.5) 11/26/17 18:00 - Constitutional Appears: Chronically Ill - Head Exam Head Exam: NORMAL INSPECTION - Neck Exam Neck Exam: absent: Meningismus - Respiratory Exam Respiratory Exam: Decreased Breath Sounds - Cardiovascular Exam Cardiovascular Exam: +S1, +S2 - GI/Abdominal Exam GI & Abdominal Exam: Soft. absent: Tenderness Assessment and Plan - Assessment and Plan (Free Text) Plan: Assessment systemic inflammatory response syndrome, consider severe sepsis with hypoxic respiratory failure S/P VDRF, consider HCAP with acute bronchitis chronic CHF end-stage COPD pulmonary HTN CAD dyslipidemia Plan continue doxycycline and Merrem day 3 and we added Vancomycin last night and we have repeated blood, urine, sputum cx, PCT; reviewed CXR will continue to monitor clinically
--- NOTE | 2017-11-29 10:46 | PN ---
DATE: 11/29/2017(615am-710am) PULMONARY NOTE SUBJECTIVE: The patient is now in the ICU, and on a ventilator. She is sedated. PHYSICAL EXAMINATION: VITAL SIGNS: Temperature is 99.0, pulse on the monitor is 94, respiratory rate 16/14, blood pressure 102/56. HEENT: Normocephalic, atraumatic. No JVD. CARDIOVASCULAR: Systolic ejection murmur at the lower left sternal border. No S3 gallop. LUNGS: Decreased breath sounds at the bases. Mild bilateral rhonchi. No wheezing. EXTREMITIES: Mild edema. No cyanosis or clubbing. GI: Abdomen is soft, nondistended. Bowel sounds are positive. SKIN: No acute rash. NEUROLOGIC: Limited at the present time. PERTINENT LABORATORY DATA: Chest x-ray was done this morning and reviewed. Again noted, are chronic extensive changes bilaterally. The chest film is not significantly changed from the original film of 11/26/2017. Arterial blood gas was done on assist control 14, tidal volume 400, FIO2 of 40%. Results are: PH 7.43, pCO2 of 53, pO2 of 62. Arterial blood gas was also done yesterday on 50% oxygen. Results are: PH 7.16, pCO2 of 105, pO2 of 122. IMPRESSION: 1. Respiratory failure. 2. Sepsis syndrome. 3. End-stage chronic obstructive pulmonary disease. 4. Rule out underlying pneumonia. Rule out urinary tract infection. 5. Pulmonary hypertension. 6. Coronary artery disease. PLAN: The patient is now in the ICU and intubated. She is currently sedated. I did discuss the case with the ICU nurse at length. I also discussed the case with the telemetry night nurse at length. Apparently, yesterday afternoon, the patient started to spike fevers (102.1 at 03:00 p.m.). After the temperature spike, the patient began to experience extreme lethargy. Arterial blood gas was then done - which revealed a severe respiratory acidosis. The patient was subsequently intubated for airway protection and ventilation. I did review the chest x-ray as above. The chest x-ray shows chronic extensive changes. Again, I cannot definitively rule out an underlying pneumonia. Initial procalcitonin was negative. Repeat procalcitonin is ordered. I have also reviewed the arterial blood gas. The patient is now compensated with a normal pH. However, there remains a significant alveolar-arterial gradient. On physical exam, the patient is in mild bronchospasm. I will continue with the current nebulizer treatments and current intravenous steroids (increased by the ICU team) for now. Again, the patient remains on antibiotic therapy - as per Infectious Disease. Input by Dr. Law is noted. Temperatures are decreasing. The patient is critically ill at this point in time. Her overall prognosis is poor. All are aware. I will discuss the above with the entire ICU team in the next few moments. I will also discuss the above with Dr. Wheeler later this morning. Evgeny Briggs MD MTDD
--- NOTE | 2017-11-29 10:47 | CARD ---
APPROVED REPORT EKG Measurement Heart [id number] <Conclusion> Baseline artifact Probable sinus tachycardia Rightward axis Nonspecific ST abnormality Abnormal ECG
[2017-11-29 11:09] LABS: TROPONIN I 0.03 ng/mL
--- NOTE | 2017-11-29 14:15 | CP.CCUPN ---
<Irving Chakraborty - Last Filed: 11/29/17 14:29> CCU Subjective - Physician Review Subjective (Free Text): Patient seen and evaluated bedside. Patient was intubated when i first examined her this morning, currently extubated. She is awake ,following commands. No chest pain, abdominal pain or any other complain at this time. 11/29/17 14:13 Critical Care Time Spent (in minutes): 35 CCU Objective - Vital Signs / Intake & Output Vital Signs (Last 4 hours): Vital Signs Pulse 11/29/17 13:21 84 Intake and Output (Last 8hrs): Intake & Output 11/28/17 11/29/17 11/29/17 22:59 06:59 14:59 Intake Total 10 1190 Output Total 300 Balance 10 890 Weight 140 lb Intake: IV 10 1190 Right Antecubital 1000 Right Wrist 100 Output: Urine 300 2-way Urethral 300 - Physical Exam Head: Positive for: Atraumatic, Normocephalic Mouth: Positive for: Moist Mucous Membranes Respiratory/Chest: Positive for: Decreased Breath Sounds Cardiovascular: Positive for: Normal S1, S2 Abdomen: Negative for: Tenderness - Medications Active Medications: Active Medications Generic Name Dose Route Start Last Admin Trade Name Freq PRN Reason Stop Dose Admin Acetaminophen 650 mg 11/28/17 16:56 11/29/17 00:05 Tylenol 325 Mg Supp RC 650 mg Q4H PRN Administration Fever >100.4 F Albuterol/Ipratropium 3 ml 11/27/17 08:00 11/29/17 13:17 Duoneb 3 Mg/0.5 Mg (3 Ml) Ud IH 3 ml [id number] JEFFERY Administration Albuterol/Ipratropium 3 ml 11/27/17 07:08 Duoneb 3 Mg/0.5 Mg (3 Ml) Ud IH Q2H PRN Shortness of Breath Alprazolam 0.5 mg 11/26/17 22:21 11/28/17 09:33 Xanax PO 0.5 mg Q4 PRN Administration Anxiety Protocol Aspirin 300 mg 11/29/17 10:00 Aspirin Supp RC DAILY JEFFERY Budesonide 0.5 mg 11/27/17 08:00 11/29/17 07:00 Pulmicort Respules IH 0.5 mg [id number] JEFFERY Administration Enoxaparin Sodium 40 mg 11/27/17 11:00 11/29/17 09:55 Lovenox SC 40 mg DAILY JEFFERY Administration Protocol Doxycycline Hyclate 100 mg/ 100 mls @ 100 mls/hr 11/27/17 11:31 11/29/17 09: 54 Sodium Chloride IVPB 12/06/17 11:32 100 mls/hr Q12 JEFFERY Administration Protocol Meropenem 50 mls @ 100 mls/hr 11/27/17 11:45 11/29/17 06:20 Merrem Iv 1 Gm Premix IVPB 12/06/17 11:46 100 mls/hr Q8 JEFFERY Administration Protocol Propofol 1,000 mg in 100 mls @ 1.996 mls/hr 11/28/17 22:40 11/29/17 06:19 Diprivan IV 20 mcg/kg/min .Q24H PRN 7.985 mls/hr TITRATE PER MD ORDER Administration Protocol 5 MCG/KG/MIN Sodium Chloride 1,000 mls @ 100 mls/hr 11/28/17 23:00 11/28/17 23:10 Sodium Chloride 0.9% IV 100 mls/hr .Q10H JEFFERY Administration Vancomycin HCl 1 gm in 250 mls @ 167 mls/hr 11/29/17 06:00 11/29/17 05:12 Vancomycin 1gm IVPB 167 mls/hr Q12H JEFFERY Administration Protocol Insulin Human Regular 0 units 11/28/17 16:30 11/28/17 22:50 Humulin R Med SC Not Given ACHS JEFFERY Protocol Methylprednisolone 40 mg 11/29/17 06:00 11/29/17 05:12 Solu-Medrol IVP 40 mg Q8 JEFFERY Administration Metoprolol Tartrate 12.5 mg 11/28/17 23:45 11/29/17 09:45 Lopressor PO 12.5 mg BID JEFFERY Administration Mirtazapine 7.5 mg 11/26/17 22:30 11/28/17 22:37 Remeron PO Not Given HS JEFFERY Ondansetron HCl 4 mg 11/28/17 13:20 11/28/17 13:41 Zofran Inj IVP 4 mg Q6H PRN Administration Nausea/Vomiting Oseltamivir Phosphate 30 mg 11/28/17 23:15 11/29/17 09:45 Tamiflu PO 12/03/17 23:16 30 mg BID JEFFERY Administration Protocol Pantoprazole Sodium 40 mg 11/29/17 10:00 11/29/17 09:45 Protonix Inj IVP 40 mg DAILY JEFFERY Administration Sildenafil Citrate 20 mg 11/27/17 10:00 11/29/17 09:44 Revatio PO 20 mg BID JEFFERY Administration - Patient Studies Lab Studies: Microbiology Studies 11/29/17 06:00 Gram Stain - Preliminary Trachasp 11/26/17 19:10 Urine Culture - Final Urine,Clean Catch Enterococcus Faecalis Lab Studies 11/29/17 11/29/17 11/29/17 Range/Units 11:00 10:30 08:50 WBC (4.5-11.0) 10^3/ul RBC (3.5-6.1) 10^6/uL Hgb (12.0-16.0) g/dL Hct (36.0-48.0) % MCV (80.0-105.0) fl MCH (25.0-35.0) pg MCHC (31.0-37.0) g/dl RDW (11.5-14.5) % Plt Count (120.0-450.0) 10^3/uL MPV (7.0-11.0) fl Gran % (50.0-68.0) % Lymph % (Auto) (22.0-35.0) % Newberry % (Auto) (1.0-6.0) % Eos % (Auto) (1.5-5.0) % Baso % (Auto) (0.0-3.0) % Gran # (1.4-6.5) Lymph # (Auto) (1.2-3.4) Newberry # (Auto) (0.1-0.6) Eos # (Auto) (0.0-0.7) Baso # (Auto) (0.0-2.0) K/mm3 pCO2 63 H (35-45) mm/Hg pO2 74.0 L (30-55) mm/Hg HCO3 36.4 H (21-28) mmol/L ABG pH 7.37 (7.35-7.45) ABG Total CO2 38.3 H (22-28) mmol.L ABG O2 Saturation 96.3 (95-98) % ABG O2 Content 10.6 L (15-23) ML/dl ABG Base Excess 9.8 H (-2.0-3.0) mmol/L ABG Hemoglobin 8.0 L (11.7-17.4) g/dL ABG Carboxyhemoglobin 1.9 H (0.5-1.5) % POC ABG HHb (Measured) 3.6 (0-5) % ABG Methemoglobin 1.0 (0.0-3.0) % ABG O2 Capacity 11.0 L (16-24) mL/dl ABG Potassium (3.6-5.2) mmol/L VBG pH (7.32-7.43) VBG pCO2 (40-60) VBG HCO3 (21-28) mmol/l VBG Total CO2 (22-28) mmol.L VBG O2 Sat (Calc) (40-65) % VBG Base Excess (0.0-2.0) mmol/L VBG Potassium (3.6-5.2) mmol/L Hgb O2 Saturation 93.6 L (95.0-98.0) % Sodium (132-148) mmol/L Chloride (98-107) mmol/L Glucose (65-105) mg/dl Lactate (0.7-2.1) mmol/L Mechanical Rate FiO2 40.0 % Tidal Volume PEEP Potassium (3.6-5.0) mmol/L Carbon Dioxide (21-33) mmol/L Anion Gap (10-20) BUN (7-21) mg/dL Creatinine (0.7-1.2) mg/dl Est GFR ( Amer) Est GFR (Non-Af Amer) POC Glucose (mg/dL) 139 H (65-110) mg/dL Random Glucose (70-110) mg/dL Lactic Acid (0.7-2.1) mmol/L Calcium (8.4-10.5) mg/dL Total Bilirubin (0.2-1.3) mg/dL AST (14-36) U/L ALT (7-56) U/L Alkaline Phosphatase (38-126) U/L Lactate Dehydrogenase 206 L (333-699) U/L Total Creatine Kinase 24 L (35-230) U/L Troponin I 0.03 ng/mL Total Protein (5.8-8.3) g/dL Albumin (3.0-4.8) g/dL Globulin gm/dL Albumin/Globulin Ratio (1.1-1.8) Triglycerides (35-160) mg/dL Cholesterol (130-200) mg/dL LDL Cholesterol Direct (0-129) mg/dL HDL Cholesterol (29-60) mg/dL Procalcitonin (0.19-0.49) NG/ML Arterial Blood Potassium (3.6-5.2) mmol/L Venous Blood Potassium (3.6-5.2) mmol/L Influenza Typ A,B (EIA) (NEGATIVE) 11/29/17 11/29/17 11/29/17 Range/Units 07:39 05:45 05:45 WBC 5.2 (4.5-11.0) 10^3/ul RBC 2.65 L (3.5-6.1) 10^6/uL Hgb 8.1 L (12.0-16.0) g/dL Hct 27.3 L (36.0-48.0) % MCV 103.0 D (80.0-105.0) fl MCH 30.6 (25.0-35.0) pg MCHC 29.7 L (31.0-37.0) g/dl RDW 16.6 H (11.5-14.5) % Plt Count 238 (120.0-450.0) 10^3/uL MPV 10.2 (7.0-11.0) fl Gran % 83.4 H (50.0-68.0) % Lymph % (Auto) 11.4 L (22.0-35.0) % Newberry % (Auto) 5.0 (1.0-6.0) % Eos % (Auto) 0.0 L (1.5-5.0) % Baso % (Auto) 0.2 (0.0-3.0) % Gran # 4.32 (1.4-6.5) Lymph # (Auto) 0.6 L (1.2-3.4) Newberry # (Auto) 0.3 (0.1-0.6) Eos # (Auto) 0.0 (0.0-0.7) Baso # (Auto) 0.01 (0.0-2.0) K/mm3 pCO2 (35-45) mm/Hg pO2 (30-55) mm/Hg HCO3 (21-28) mmol/L ABG pH (7.35-7.45) ABG Total CO2 (22-28) mmol.L ABG O2 Saturation (95-98) % ABG O2 Content (15-23) ML/dl ABG Base Excess (-2.0-3.0) mmol/L ABG Hemoglobin (11.7-17.4) g/dL ABG Carboxyhemoglobin (0.5-1.5) % POC ABG HHb (Measured) (0-5) % ABG Methemoglobin (0.0-3.0) % ABG O2 Capacity (16-24) mL/dl ABG Potassium (3.6-5.2) mmol/L VBG pH (7.32-7.43) VBG pCO2 (40-60) VBG HCO3 (21-28) mmol/l VBG Total CO2 (22-28) mmol.L VBG O2 Sat (Calc) (40-65) % VBG Base Excess (0.0-2.0) mmol/L VBG Potassium (3.6-5.2) mmol/L Hgb O2 Saturation (95.0-98.0) % Sodium 138 (132-148) mmol/L Chloride 99 (98-107) mmol/L Glucose (65-105) mg/dl Lactate (0.7-2.1) mmol/L Mechanical Rate FiO2 % Tidal Volume PEEP Potassium 4.6 (3.6-5.0) mmol/L Carbon Dioxide 34 H (21-33) mmol/L Anion Gap 10 (10-20) BUN 30 H (7-21) mg/dL Creatinine 0.7 (0.7-1.2) mg/dl Est GFR ( Amer) > 60 Est GFR (Non-Af Amer) > 60 POC Glucose (mg/dL) 160 H (65-110) mg/dL Random Glucose 135 H (70-110) mg/dL Lactic Acid (0.7-2.1) mmol/L Calcium 9.4 (8.4-10.5) mg/dL Total Bilirubin 0.4 (0.2-1.3) mg/dL AST 20 (14-36) U/L ALT 24 (7-56) U/L Alkaline Phosphatase 38 (38-126) U/L Lactate Dehydrogenase 192 L (333-699) U/L Total Creatine Kinase < 20 L (35-230) U/L Troponin I 0.03 D ng/mL Total Protein 4.6 L (5.8-8.3) g/dL Albumin 2.4 L (3.0-4.8) g/dL Globulin 2.2 gm/dL Albumin/Globulin Ratio 1.1 (1.1-1.8) Triglycerides 171 H (35-160) mg/dL Cholesterol 125 L (130-200) mg/dL LDL Cholesterol Direct 59 (0-129) mg/dL HDL Cholesterol 43 (29-60) mg/dL Procalcitonin (0.19-0.49) NG/ML Arterial Blood Potassium (3.6-5.2) mmol/L Venous Blood Potassium (3.6-5.2) mmol/L Influenza Typ A,B (EIA) (NEGATIVE) 11/29/17 11/29/17 11/28/17 Range/Units 04:45 01:08 23:44 WBC (4.5-11.0) 10^3/ul RBC (3.5-6.1) 10^6/uL Hgb (12.0-16.0) g/dL Hct (36.0-48.0) % MCV (80.0-105.0) fl MCH (25.0-35.0) pg MCHC (31.0-37.0) g/dl RDW (11.5-14.5) % Plt Count (120.0-450.0) 10^3/uL MPV (7.0-11.0) fl Gran % (50.0-68.0) % Lymph % (Auto) (22.0-35.0) % Newberry % (Auto) (1.0-6.0) % Eos % (Auto) (1.5-5.0) % Baso % (Auto) (0.0-3.0) % Gran # (1.4-6.5) Lymph # (Auto) (1.2-3.4) Newberry # (Auto) (0.1-0.6) Eos # (Auto) (0.0-0.7) Baso # (Auto) (0.0-2.0) K/mm3 pCO2 53 H 61 H (35-45) mm/Hg pO2 62.0 L 398.0 H (30-55) mm/Hg HCO3 35.2 H 36.9 H (21-28) mmol/L ABG pH 7.43 7.39 (7.35-7.45) ABG Total CO2 36.8 H 38.8 H (22-28) mmol.L ABG O2 Saturation 96.3 98.1 H (95-98) % ABG O2 Content 10.6 L (15-23) ML/dl ABG Base Excess 9.7 H 9.6 H (-2.0-3.0) mmol/L ABG Hemoglobin 8.0 L (11.7-17.4) g/dL ABG Carboxyhemoglobin 1.9 H (0.5-1.5) % POC ABG HHb (Measured) 3.6 (0-5) % ABG Methemoglobin 0.6 (0.0-3.0) % ABG O2 Capacity 11.0 L (16-24) mL/dl ABG Potassium 5.0 (3.6-5.2) mmol/L VBG pH (7.32-7.43) VBG pCO2 (40-60) VBG HCO3 (21-28) mmol/l VBG Total CO2 (22-28) mmol.L VBG O2 Sat (Calc) (40-65) % VBG Base Excess (0.0-2.0) mmol/L VBG Potassium (3.6-5.2) mmol/L Hgb O2 Saturation 93.8 L (95.0-98.0) % Sodium 137.0 (132-148) mmol/L Chloride 106.0 (98-107) mmol/L Glucose 117 H (65-105) mg/dl Lactate 1.0 (0.7-2.1) mmol/L Mechanical Rate 18 FiO2 40.0 100.0 % Tidal Volume 400 PEEP 5 Potassium (3.6-5.0) mmol/L Carbon Dioxide (21-33) mmol/L Anion Gap (10-20) BUN (7-21) mg/dL Creatinine (0.7-1.2) mg/dl Est GFR ( Amer) Est GFR (Non-Af Amer) POC Glucose (mg/dL) (65-110) mg/dL Random Glucose (70-110) mg/dL Lactic Acid (0.7-2.1) mmol/L Calcium (8.4-10.5) mg/dL Total Bilirubin (0.2-1.3) mg/dL AST (14-36) U/L ALT (7-56) U/L Alkaline Phosphatase (38-126) U/L Lactate Dehydrogenase (333-699) U/L Total Creatine Kinase (35-230) U/L Troponin I ng/mL Total Protein (5.8-8.3) g/dL Albumin (3.0-4.8) g/dL Globulin gm/dL Albumin/Globulin Ratio (1.1-1.8) Triglycerides (35-160) mg/dL Cholesterol (130-200) mg/dL LDL Cholesterol Direct (0-129) mg/dL HDL Cholesterol (29-60) mg/dL Procalcitonin (0.19-0.49) NG/ML Arterial Blood Potassium 5.0 (3.6-5.2) mmol/L Venous Blood Potassium (3.6-5.2) mmol/L Influenza Typ A,B (EIA) Negative for flu a/b (NEGATIVE) 11/28/17 11/28/17 11/28/17 Range/Units 23:10 23:10 23:10 WBC 5.6 (4.5-11.0) 10^3/ul RBC 2.95 L (3.5-6.1) 10^6/uL Hgb 9.0 L (12.0-16.0) g/dL Hct 31.3 L (36.0-48.0) % MCV 106.1 H D (80.0-105.0) fl MCH 30.5 (25.0-35.0) pg MCHC 28.8 L (31.0-37.0) g/dl RDW 16.9 H (11.5-14.5) % Plt Count 304 (120.0-450.0) 10^3/uL MPV 10.2 (7.0-11.0) fl Gran % 78.5 H (50.0-68.0) % Lymph % (Auto) 10.6 L (22.0-35.0) % Newberry % (Auto) 10.5 H (1.0-6.0) % Eos % (Auto) 0.2 L (1.5-5.0) % Baso % (Auto) 0.2 (0.0-3.0) % Gran # 4.43 (1.4-6.5) Lymph # (Auto) 0.6 L (1.2-3.4) Newberry # (Auto) 0.6 (0.1-0.6) Eos # (Auto) 0.0 (0.0-0.7) Baso # (Auto) 0.01 (0.0-2.0) K/mm3 pCO2 (35-45) mm/Hg pO2 (30-55) mm/Hg HCO3 (21-28) mmol/L ABG pH (7.35-7.45) ABG Total CO2 (22-28) mmol.L ABG O2 Saturation (95-98) % ABG O2 Content (15-23) ML/dl ABG Base Excess (-2.0-3.0) mmol/L ABG Hemoglobin (11.7-17.4) g/dL ABG Carboxyhemoglobin (0.5-1.5) % POC ABG HHb (Measured) (0-5) % ABG Methemoglobin (0.0-3.0) % ABG O2 Capacity (16-24) mL/dl ABG Potassium (3.6-5.2) mmol/L VBG pH (7.32-7.43) VBG pCO2 (40-60) VBG HCO3 (21-28) mmol/l VBG Total CO2 (22-28) mmol.L VBG O2 Sat (Calc) (40-65) % VBG Base Excess (0.0-2.0) mmol/L VBG Potassium (3.6-5.2) mmol/L Hgb O2 Saturation (95.0-98.0) % Sodium 140 (132-148) mmol/L Chloride 97 L (98-107) mmol/L Glucose (65-105) mg/dl Lactate (0.7-2.1) mmol/L Mechanical Rate FiO2 % Tidal Volume PEEP Potassium 5.5 H (3.6-5.0) mmol/L Carbon Dioxide 39 H (21-33) mmol/L Anion Gap 10 (10-20) BUN 30 H (7-21) mg/dL Creatinine 0.8 (0.7-1.2) mg/dl Est GFR ( Amer) > 60 Est GFR (Non-Af Amer) > 60 POC Glucose (mg/dL) (65-110) mg/dL Random Glucose 105 (70-110) mg/dL Lactic Acid (0.7-2.1) mmol/L Calcium 9.7 (8.4-10.5) mg/dL Total Bilirubin 0.4 (0.2-1.3) mg/dL AST 19 (14-36) U/L ALT 26 (7-56) U/L Alkaline Phosphatase 45 (38-126) U/L Lactate Dehydrogenase 255 L (333-699) U/L Total Creatine Kinase < 20 L (35-230) U/L Troponin I 0.05 D ng/mL Total Protein 5.1 L (5.8-8.3) g/dL Albumin 2.8 L (3.0-4.8) g/dL Globulin 2.3 gm/dL Albumin/Globulin Ratio 1.2 (1.1-1.8) Triglycerides (35-160) mg/dL Cholesterol (130-200) mg/dL LDL Cholesterol Direct (0-129) mg/dL HDL Cholesterol (29-60) mg/dL Procalcitonin 0.08 L (0.19-0.49) NG/ML Arterial Blood Potassium (3.6-5.2) mmol/L Venous Blood Potassium (3.6-5.2) mmol/L Influenza Typ A,B (EIA) (NEGATIVE) 11/28/17 11/28/17 11/28/17 Range/Units 22:47 21:30 21:30 WBC (4.5-11.0) 10^3/ul RBC (3.5-6.1) 10^6/uL Hgb (12.0-16.0) g/dL Hct (36.0-48.0) % MCV (80.0-105.0) fl MCH (25.0-35.0) pg MCHC (31.0-37.0) g/dl RDW (11.5-14.5) % Plt Count (120.0-450.0) 10^3/uL MPV (7.0-11.0) fl Gran % (50.0-68.0) % Lymph % (Auto) (22.0-35.0) % Newberry % (Auto) (1.0-6.0) % Eos % (Auto) (1.5-5.0) % Baso % (Auto) (0.0-3.0) % Gran # (1.4-6.5) Lymph # (Auto) (1.2-3.4) Newberry # (Auto) (0.1-0.6) Eos # (Auto) (0.0-0.7) Baso # (Auto) (0.0-2.0) K/mm3 pCO2 105 H* (35-45) mm/Hg pO2 122.0 H (30-55) mm/Hg HCO3 37.4 H (21-28) mmol/L ABG pH 7.16 L* (7.35-7.45) ABG Total CO2 40.6 H (22-28) mmol.L ABG O2 Saturation 97.7 (95-98) % ABG O2 Content 12.2 L (15-23) ML/dl ABG Base Excess 6.7 H (-2.0-3.0) mmol/L ABG Hemoglobin 8.9 L (11.7-17.4) g/dL ABG Carboxyhemoglobin 1.9 H (0.5-1.5) % POC ABG HHb (Measured) 2.2 (0-5) % ABG Methemoglobin 0.4 (0.0-3.0) % ABG O2 Capacity 12.5 L (16-24) mL/dl ABG Potassium (3.6-5.2) mmol/L VBG pH (7.32-7.43) VBG pCO2 (40-60) VBG HCO3 (21-28) mmol/l VBG Total CO2 (22-28) mmol.L VBG O2 Sat (Calc) (40-65) % VBG Base Excess (0.0-2.0) mmol/L VBG Potassium (3.6-5.2) mmol/L Hgb O2 Saturation 95.5 (95.0-98.0) % Sodium (132-148) mmol/L Chloride (98-107) mmol/L Glucose (65-105) mg/dl Lactate (0.7-2.1) mmol/L Mechanical Rate FiO2 50.0 % Tidal Volume PEEP Potassium (3.6-5.0) mmol/L Carbon Dioxide (21-33) mmol/L Anion Gap (10-20) BUN (7-21) mg/dL Creatinine (0.7-1.2) mg/dl Est GFR ( Amer) Est GFR (Non-Af Amer) POC Glucose (mg/dL) 131 H 132 H (65-110) mg/dL Random Glucose (70-110) mg/dL Lactic Acid (0.7-2.1) mmol/L Calcium (8.4-10.5) mg/dL Total Bilirubin (0.2-1.3) mg/dL AST (14-36) U/L ALT (7-56) U/L Alkaline Phosphatase (38-126) U/L Lactate Dehydrogenase (333-699) U/L Total Creatine Kinase (35-230) U/L Troponin I ng/mL Total Protein (5.8-8.3) g/dL Albumin (3.0-4.8) g/dL Globulin gm/dL Albumin/Globulin Ratio (1.1-1.8) Triglycerides (35-160) mg/dL Cholesterol (130-200) mg/dL LDL Cholesterol Direct (0-129) mg/dL HDL Cholesterol (29-60) mg/dL Procalcitonin (0.19-0.49) NG/ML Arterial Blood Potassium (3.6-5.2) mmol/L Venous Blood Potassium (3.6-5.2) mmol/L Influenza Typ A,B (EIA) (NEGATIVE) 11/28/17 11/28/17 11/28/17 Range/Units 17:21 17:21 17:21 WBC (4.5-11.0) 10^3/ul RBC (3.5-6.1) 10^6/uL Hgb (12.0-16.0) g/dL Hct (36.0-48.0) % MCV (80.0-105.0) fl MCH (25.0-35.0) pg MCHC (31.0-37.0) g/dl RDW (11.5-14.5) % Plt Count (120.0-450.0) 10^3/uL MPV (7.0-11.0) fl Gran % (50.0-68.0) % Lymph % (Auto) (22.0-35.0) % Newberry % (Auto) (1.0-6.0) % Eos % (Auto) (1.5-5.0) % Baso % (Auto) (0.0-3.0) % Gran # (1.4-6.5) Lymph # (Auto) (1.2-3.4) Newberry # (Auto) (0.1-0.6) Eos # (Auto) (0.0-0.7) Baso # (Auto) (0.0-2.0) K/mm3 pCO2 (35-45) mm/Hg pO2 28 L (30-55) mm/Hg HCO3 (21-28) mmol/L ABG pH (7.35-7.45) ABG Total CO2 (22-28) mmol.L ABG O2 Saturation (95-98) % ABG O2 Content (15-23) ML/dl ABG Base Excess (-2.0-3.0) mmol/L ABG Hemoglobin (11.7-17.4) g/dL ABG Carboxyhemoglobin (0.5-1.5) % POC ABG HHb (Measured) (0-5) % ABG Methemoglobin (0.0-3.0) % ABG O2 Capacity (16-24) mL/dl ABG Potassium (3.6-5.2) mmol/L VBG pH 7.25 L (7.32-7.43) VBG pCO2 94.0 H* (40-60) VBG HCO3 41.2 H (21-28) mmol/l VBG Total CO2 44.1 H (22-28) mmol.L VBG O2 Sat (Calc) 59.0 (40-65) % VBG Base Excess 10.0 H (0.0-2.0) mmol/L VBG Potassium 5.5 H (3.6-5.2) mmol/L Hgb O2 Saturation (95.0-98.0) % Sodium 140 138.0 (132-148) mmol/L Chloride 98 101.0 (98-107) mmol/L Glucose 116 H (65-105) mg/dl Lactate 1.1 (0.7-2.1) mmol/L Mechanical Rate FiO2 21.0 % Tidal Volume PEEP Potassium 5.5 H (3.6-5.0) mmol/L Carbon Dioxide 37 H (21-33) mmol/L Anion Gap 11 (10-20) BUN 26 H (7-21) mg/dL Creatinine 0.7 (0.7-1.2) mg/dl Est GFR ( Amer) > 60 Est GFR (Non-Af Amer) > 60 POC Glucose (mg/dL) (65-110) mg/dL Random Glucose 113 H (70-110) mg/dL Lactic Acid (0.7-2.1) mmol/L Calcium 9.5 (8.4-10.5) mg/dL Total Bilirubin (0.2-1.3) mg/dL AST (14-36) U/L ALT (7-56) U/L Alkaline Phosphatase (38-126) U/L Lactate Dehydrogenase 273 L (333-699) U/L Total Creatine Kinase < 20 L (35-230) U/L Troponin I 0.02 D ng/mL Total Protein (5.8-8.3) g/dL Albumin (3.0-4.8) g/dL Globulin gm/dL Albumin/Globulin Ratio (1.1-1.8) Triglycerides (35-160) mg/dL Cholesterol (130-200) mg/dL LDL Cholesterol Direct (0-129) mg/dL HDL Cholesterol (29-60) mg/dL Procalcitonin (0.19-0.49) NG/ML Arterial Blood Potassium (3.6-5.2) mmol/L Venous Blood Potassium 5.5 H (3.6-5.2) mmol/L Influenza Typ A,B (EIA) (NEGATIVE) 11/28/17 11/28/17 Range/Units 17:21 16:22 WBC (4.5-11.0) 10^3/ul RBC (3.5-6.1) 10^6/uL Hgb (12.0-16.0) g/dL Hct (36.0-48.0) % MCV (80.0-105.0) fl MCH (25.0-35.0) pg MCHC (31.0-37.0) g/dl RDW (11.5-14.5) % Plt Count (120.0-450.0) 10^3/uL MPV (7.0-11.0) fl Gran % (50.0-68.0) % Lymph % (Auto) (22.0-35.0) % Newberry % (Auto) (1.0-6.0) % Eos % (Auto) (1.5-5.0) % Baso % (Auto) (0.0-3.0) % Gran # (1.4-6.5) Lymph # (Auto) (1.2-3.4) Newberry # (Auto) (0.1-0.6) Eos # (Auto) (0.0-0.7) Baso # (Auto) (0.0-2.0) K/mm3 pCO2 (35-45) mm/Hg pO2 (30-55) mm/Hg HCO3 (21-28) mmol/L ABG pH (7.35-7.45) ABG Total CO2 (22-28) mmol.L ABG O2 Saturation (95-98) % ABG O2 Content (15-23) ML/dl ABG Base Excess (-2.0-3.0) mmol/L ABG Hemoglobin (11.7-17.4) g/dL ABG Carboxyhemoglobin (0.5-1.5) % POC ABG HHb (Measured) (0-5) % ABG Methemoglobin (0.0-3.0) % ABG O2 Capacity (16-24) mL/dl ABG Potassium (3.6-5.2) mmol/L VBG pH (7.32-7.43) VBG pCO2 (40-60) VBG HCO3 (21-28) mmol/l VBG Total CO2 (22-28) mmol.L VBG O2 Sat (Calc) (40-65) % VBG Base Excess (0.0-2.0) mmol/L VBG Potassium (3.6-5.2) mmol/L Hgb O2 Saturation (95.0-98.0) % Sodium (132-148) mmol/L Chloride (98-107) mmol/L Glucose (65-105) mg/dl Lactate (0.7-2.1) mmol/L Mechanical Rate FiO2 % Tidal Volume PEEP Potassium (3.6-5.0) mmol/L Carbon Dioxide (21-33) mmol/L Anion Gap (10-20) BUN (7-21) mg/dL Creatinine (0.7-1.2) mg/dl Est GFR ( Amer) Est GFR (Non-Af Amer) POC Glucose (mg/dL) 121 H (65-110) mg/dL Random Glucose (70-110) mg/dL Lactic Acid 1.0 (0.7-2.1) mmol/L Calcium (8.4-10.5) mg/dL Total Bilirubin (0.2-1.3) mg/dL AST (14-36) U/L ALT (7-56) U/L Alkaline Phosphatase (38-126) U/L Lactate Dehydrogenase (333-699) U/L Total Creatine Kinase (35-230) U/L Troponin I ng/mL Total Protein (5.8-8.3) g/dL Albumin (3.0-4.8) g/dL Globulin gm/dL Albumin/Globulin Ratio (1.1-1.8) Triglycerides (35-160) mg/dL Cholesterol (130-200) mg/dL LDL Cholesterol Direct (0-129) mg/dL HDL Cholesterol (29-60) mg/dL Procalcitonin (0.19-0.49) NG/ML Arterial Blood Potassium (3.6-5.2) mmol/L Venous Blood Potassium (3.6-5.2) mmol/L Influenza Typ A,B (EIA) (NEGATIVE) Laboratory Results - last 24 hr 11/28/17 11/28/17 11/28/17 16:22 17:21 17:21 WBC RBC Hgb Hct MCV MCH MCHC RDW Plt Count MPV Gran % Lymph % (Auto) Newberry % (Auto) Eos % (Auto) Baso % (Auto) Gran # Lymph # (Auto) Newberry # (Auto) Eos # (Auto) Baso # (Auto) pCO2 pO2 28 L HCO3 ABG pH ABG Total CO2 ABG O2 Saturation ABG O2 Content ABG Base Excess ABG Hemoglobin ABG Carboxyhemoglobin POC ABG HHb (Measured) ABG Methemoglobin ABG O2 Capacity ABG Potassium VBG pH 7.25 L VBG pCO2 94.0 H* VBG HCO3 41.2 H VBG Total CO2 44.1 H VBG O2 Sat (Calc) 59.0 VBG Base Excess 10.0 H VBG Potassium 5.5 H Hgb O2 Saturation Sodium 138.0 Chloride 101.0 Glucose 116 H Lactate 1.1 Mechanical Rate FiO2 21.0 Tidal Volume PEEP Potassium Carbon Dioxide Anion Gap BUN Creatinine Est GFR ( Amer) Est GFR (Non-Af Amer) POC Glucose (mg/dL) 121 H Random Glucose Lactic Acid 1.0 Calcium Total Bilirubin AST ALT Alkaline Phosphatase Lactate Dehydrogenase Total Creatine Kinase Troponin I Total Protein Albumin Globulin Albumin/Globulin Ratio Triglycerides Cholesterol LDL Cholesterol Direct HDL Cholesterol Procalcitonin Arterial Blood Potassium Venous Blood Potassium 5.5 H Influenza Typ A,B (EIA) 11/28/17 11/28/17 11/28/17 17:21 17:21 21:30 WBC RBC Hgb Hct MCV MCH MCHC RDW Plt Count MPV Gran % Lymph % (Auto) Newberry % (Auto) Eos % (Auto) Baso % (Auto) Gran # Lymph # (Auto) [place]berry # (Auto) Eos # (Auto) Baso # (Auto) pCO2 105 H* pO2 122.0 H HCO3 37.4 H ABG pH 7.16 L* ABG Total CO2 40.6 H ABG O2 Saturation 97.7 ABG O2 Content 12.2 L ABG Base Excess 6.7 H ABG Hemoglobin 8.9 L ABG Carboxyhemoglobin 1.9 H POC ABG HHb (Measured) 2.2 ABG Methemoglobin 0.4 ABG O2 Capacity 12.5 L ABG Potassium VBG pH VBG pCO2 VBG HCO3 VBG Total CO2 VBG O2 Sat (Calc) VBG Base Excess VBG Potassium Hgb O2 Saturation 95.5 Sodium 140 Chloride 98 Glucose Lactate Mechanical Rate FiO2 50.0 Tidal Volume PEEP Potassium 5.5 H Carbon Dioxide 37 H Anion Gap 11 BUN 26 H Creatinine 0.7 Est GFR ( Amer) > 60 Est GFR (Non-Af Amer) > 60 POC Glucose (mg/dL) Random Glucose 113 H Lactic Acid Calcium 9.5 Total Bilirubin AST ALT Alkaline Phosphatase Lactate Dehydrogenase 273 L Total Creatine Kinase < 20 L Troponin I 0.02 D Total Protein Albumin Globulin Albumin/Globulin Ratio Triglycerides Cholesterol LDL Cholesterol Direct HDL Cholesterol Procalcitonin Arterial Blood Potassium Venous Blood Potassium Influenza Typ A,B (EIA) 11/28/17 11/28/17 11/28/17 21:30 22:47 23:10 WBC RBC Hgb Hct MCV MCH MCHC RDW Plt Count MPV Gran % Lymph % (Auto) [place]berry % (Auto) Eos % (Auto) Baso % (Auto) Gran # Lymph # (Auto) [place] # (Auto) Eos # (Auto) Baso # (Auto) pCO2 pO2 HCO3 ABG pH ABG Total CO2 ABG O2 Saturation ABG O2 Content ABG Base Excess ABG Hemoglobin ABG Carboxyhemoglobin POC ABG HHb (Measured) ABG Methemoglobin ABG O2 Capacity ABG Potassium VBG pH VBG pCO2 VBG HCO3 VBG Total CO2 VBG O2 Sat (Calc) VBG Base Excess VBG Potassium Hgb O2 Saturation Sodium Chloride Glucose Lactate Mechanical Rate FiO2 Tidal Volume PEEP Potassium Carbon Dioxide Anion Gap BUN Creatinine Est GFR ( Amer) Est GFR (Non-Af Amer) POC Glucose (mg/dL) 132 H 131 H Random Glucose Lactic Acid Calcium Total Bilirubin AST ALT Alkaline Phosphatase Lactate Dehydrogenase Total Creatine Kinase Troponin I Total Protein Albumin Globulin Albumin/Globulin Ratio Triglycerides Cholesterol LDL Cholesterol Direct HDL Cholesterol Procalcitonin 0.08 L Arterial Blood Potassium Venous Blood Potassium Influenza Typ A,B (EIA) 11/28/17 11/28/17 11/28/17 23:10 23:10 23:44 WBC 5.6 RBC 2.95 L Hgb 9.0 L Hct 31.3 L MCV 106.1 H D MCH 30.5 MCHC 28.8 L RDW 16.9 H Plt Count 304 MPV 10.2 Gran % 78.5 H Lymph % (Auto) 10.6 L [place]berry % (Auto) 10.5 H Eos % (Auto) 0.2 L Baso % (Auto) 0.2 Gran # 4.43 Lymph # (Auto) 0.6 L [place] # (Auto) 0.6 Eos # (Auto) 0.0 Baso # (Auto) 0.01 pCO2 61 H pO2 398.0 H HCO3 36.9 H ABG pH 7.39 ABG Total CO2 38.8 H ABG O2 Saturation 98.1 H ABG O2 Content ABG Base Excess 9.6 H ABG Hemoglobin ABG Carboxyhemoglobin POC ABG HHb (Measured) ABG Methemoglobin ABG O2 Capacity ABG Potassium 5.0 VBG pH VBG pCO2 VBG HCO3 VBG Total CO2 VBG O2 Sat (Calc) VBG Base Excess VBG Potassium Hgb O2 Saturation Sodium 140 137.0 Chloride 97 L 106.0 Glucose 117 H Lactate 1.0 Mechanical Rate 18 FiO2 100.0 Tidal Volume 400 PEEP 5 Potassium 5.5 H Carbon Dioxide 39 H Anion Gap 10 BUN 30 H Creatinine 0.8 Est GFR ( Amer) > 60 Est GFR (Non-Af Amer) > 60 POC Glucose (mg/dL) Random Glucose 105 Lactic Acid Calcium 9.7 Total Bilirubin 0.4 AST 19 ALT 26 Alkaline Phosphatase 45 Lactate Dehydrogenase 255 L Total Creatine Kinase < 20 L Troponin I 0.05 D Total Protein 5.1 L Albumin 2.8 L Globulin 2.3 Albumin/Globulin Ratio 1.2 Triglycerides Cholesterol LDL Cholesterol Direct HDL Cholesterol Procalcitonin Arterial Blood Potassium 5.0 Venous Blood Potassium Influenza Typ A,B (EIA) 11/29/17 11/29/17 11/29/17 01:08 04:45 05:45 WBC RBC Hgb Hct MCV MCH MCHC RDW Plt Count MPV Gran % Lymph % (Auto) Newberry % (Auto) Eos % (Auto) Baso % (Auto) Gran # Lymph # (Auto) [place] # (Auto) Eos # (Auto) Baso # (Auto) pCO2 53 H pO2 62.0 L HCO3 35.2 H ABG pH 7.43 ABG Total CO2 36.8 H ABG O2 Saturation 96.3 ABG O2 Content 10.6 L ABG Base Excess 9.7 H ABG Hemoglobin 8.0 L ABG Carboxyhemoglobin 1.9 H POC ABG HHb (Measured) 3.6 ABG Methemoglobin 0.6 ABG O2 Capacity 11.0 L ABG Potassium VBG pH VBG pCO2 VBG HCO3 VBG Total CO2 VBG O2 Sat (Calc) VBG Base Excess VBG Potassium Hgb O2 Saturation 93.8 L Sodium 138 Chloride 99 Glucose Lactate Mechanical Rate FiO2 40.0 Tidal Volume PEEP Potassium 4.6 Carbon Dioxide 34 H Anion Gap 10 BUN 30 H Creatinine 0.7 Est GFR ( Amer) > 60 Est GFR (Non-Af Amer) > 60 POC Glucose (mg/dL) Random Glucose 135 H Lactic Acid Calcium 9.4 Total Bilirubin 0.4 AST 20 ALT 24 Alkaline Phosphatase 38 Lactate Dehydrogenase 192 L Total Creatine Kinase < 20 L Troponin I 0.03 D Total Protein 4.6 L Albumin 2.4 L Globulin 2.2 Albumin/Globulin Ratio 1.1 Triglycerides 171 H Cholesterol 125 L LDL Cholesterol Direct 59 HDL Cholesterol 43 Procalcitonin Arterial Blood Potassium Venous Blood Potassium Influenza Typ A,B (EIA) Negative for flu a/b 11/29/17 11/29/17 11/29/17 05:45 07:39 08:50 WBC 5.2 RBC 2.65 L Hgb 8.1 L Hct 27.3 L MCV 103.0 D MCH 30.6 MCHC 29.7 L RDW 16.6 H Plt Count 238 MPV 10.2 Gran % 83.4 H Lymph % (Auto) 11.4 L [place]berry % (Auto) 5.0 Eos % (Auto) 0.0 L Baso % (Auto) 0.2 Gran # 4.32 Lymph # (Auto) 0.6 L [place] # (Auto) 0.3 Eos # (Auto) 0.0 Baso # (Auto) 0.01 pCO2 63 H pO2 74.0 L HCO3 36.4 H ABG pH 7.37 ABG Total CO2 38.3 H ABG O2 Saturation 96.3 ABG O2 Content 10.6 L ABG Base Excess 9.8 H ABG Hemoglobin 8.0 L ABG Carboxyhemoglobin 1.9 H POC ABG HHb (Measured) 3.6 ABG Methemoglobin 1.0 ABG O2 Capacity 11.0 L ABG Potassium VBG pH VBG pCO2 VBG HCO3 VBG Total CO2 VBG O2 Sat (Calc) VBG Base Excess VBG Potassium Hgb O2 Saturation 93.6 L Sodium Chloride Glucose Lactate Mechanical Rate FiO2 40.0 Tidal Volume PEEP Potassium Carbon Dioxide Anion Gap BUN Creatinine Est GFR ( Amer) Est GFR (Non-Af Amer) POC Glucose (mg/dL) 160 H Random Glucose Lactic Acid Calcium Total Bilirubin AST ALT Alkaline Phosphatase Lactate Dehydrogenase Total Creatine Kinase Troponin I Total Protein Albumin Globulin Albumin/Globulin Ratio Triglycerides Cholesterol LDL Cholesterol Direct HDL Cholesterol Procalcitonin Arterial Blood Potassium Venous Blood Potassium Influenza Typ A,B (EIA) 11/29/17 11/29/17 10:30 11:00 WBC RBC Hgb Hct MCV MCH MCHC RDW Plt Count MPV Gran % Lymph % (Auto) [place]berry % (Auto) Eos % (Auto) Baso % (Auto) Gran # Lymph # (Auto) [place] # (Auto) Eos # (Auto) Baso # (Auto) pCO2 pO2 HCO3 ABG pH ABG Total CO2 ABG O2 Saturation ABG O2 Content ABG Base Excess ABG Hemoglobin ABG Carboxyhemoglobin POC ABG HHb (Measured) ABG Methemoglobin ABG O2 Capacity ABG Potassium VBG pH VBG pCO2 VBG HCO3 VBG Total CO2 VBG O2 Sat (Calc) VBG Base Excess VBG Potassium Hgb O2 Saturation Sodium Chloride Glucose Lactate Mechanical Rate FiO2 Tidal Volume PEEP Potassium Carbon Dioxide Anion Gap BUN Creatinine Est GFR ( Amer) Est GFR (Non-Af Amer) POC Glucose (mg/dL) 139 H Random Glucose Lactic Acid Calcium Total Bilirubin AST ALT Alkaline Phosphatase Lactate Dehydrogenase 206 L Total Creatine Kinase 24 L Troponin I 0.03 Total Protein Albumin Globulin Albumin/Globulin Ratio Triglycerides Cholesterol LDL Cholesterol Direct HDL Cholesterol Procalcitonin Arterial Blood Potassium Venous Blood Potassium Influenza Typ A,B (EIA) EKG/Cardiology Studies: Cardiology / EKG Studies 11/28/17 16:55 ELECTROCARDIOGRAM Stat Comment: Reason For Exam: RACK PUSHER rapid HR Fingerstick Blood Sugar Results: 160 Review of Systems - Constitutional Constitutional: absent: Chills - EENT Eyes: absent: Change in Vision Ears: absent: UNREMARKABLE Nose/Mouth/Throat: absent: UNREMARKABLE - Cardiovascular Cardiovascular: UNREMARKABLE - Respiratory Respiratory: UNREMARKABLE - Gastrointestinal Gastrointestinal: UNREMARKABLE Critical Care Progress Note - Nutrition Nutrition: Nutrition Category Date Time Status Heart Healthy Diet [DIET] Diets 11/26/17 Breakfast Ordered Assessment/Plan - Assessment and Plan (Free Text) Assessment: 82F former smoker, with PMHx CAD s/p stent, O2 dependent COPD, emphysema, pulmonary hypertension brought to the ICU after rapid response yesterday and found to be in hypercapnic respiratory failure secondary to COPD exacerbation. Plan: Neuro - Alert responds to verbal commands - extubated earlier today Pulm - Duoneb Q6, Q2 PRN - Budesonde, Revatio - Continue doxy, merem day 3, added vanco yesterday - solu-medrol 40q8 - repeat ABG showing pH: 7.37 PCO2 63, PO2 74 - currently on Bipap , tolerating well Cardio - ASA rectal for Hx CAD s/p stent - cardiac enzymes x 3 negative - NS@100 - 12.5 metoprolol bid po - strict i/o Renal - berman, strict i/o - follow BMP Endo -insulin sliding scale medium with ACHS GI - protonix PO ID - Negative flu screen - continue antibiotics + tamiflu - Urine culture Gram pos cocci -currently afebrile DVT = lovenox <Porfirio Craven - Last Filed: 11/29/17 14:41> CCU Objective - Vital Signs / Intake & Output Vital Signs (Last 4 hours): Vital Signs Pulse 11/29/17 13:21 84 Intake and Output (Last 8hrs): Intake & Output 11/28/17 11/29/17 11/29/17 22:59 06:59 14:59 Intake Total 10 1190 Output Total 300 Balance 10 890 Weight 140 lb Intake: IV 10 1190 Right Antecubital 1000 Right Wrist 100 Output: Urine 300 2-way Urethral 300 - Medications Active Medications: Active Medications Generic Name Dose Route Start Last Admin Trade Name Freq PRN Reason Stop Dose Admin Acetaminophen 650 mg 11/28/17 16:56 11/29/17 00:05 Tylenol 325 Mg Supp RC 650 mg Q4H PRN Administration Fever >100.4 F Albuterol/Ipratropium 3 ml 11/27/17 08:00 11/29/17 13:17 Duoneb 3 Mg/0.5 Mg (3 Ml) Ud IH 3 ml [id number] JEFFERY Administration Albuterol/Ipratropium 3 ml 11/27/17 07:08 Duoneb 3 Mg/0.5 Mg (3 Ml) Ud IH Q2H PRN Shortness of Breath Alprazolam 0.5 mg 11/26/17 22:21 11/28/17 09:33 Xanax PO 0.5 mg Q4 PRN Administration Anxiety Protocol Aspirin 300 mg 11/29/17 10:00 Aspirin Supp RC DAILY JEFFERY Budesonide 0.5 mg 11/27/17 08:00 11/29/17 07:00 Pulmicort Respules IH 0.5 mg [id number] JEFFERY Administration Enoxaparin Sodium 40 mg 11/27/17 11:00 11/29/17 09:55 Lovenox SC 40 mg DAILY JEFFERY Administration Protocol Doxycycline Hyclate 100 mg/ 100 mls @ 100 mls/hr 11/27/17 11:31 11/29/17 09: 54 Sodium Chloride IVPB 12/06/17 11:32 100 mls/hr Q12 JEFFERY Administration Protocol Meropenem 50 mls @ 100 mls/hr 11/27/17 11:45 11/29/17 06:20 Merrem Iv 1 Gm Premix IVPB 12/06/17 11:46 100 mls/hr Q8 JEFFERY Administration Protocol Propofol 1,000 mg in 100 mls @ 1.996 mls/hr 11/28/17 22:40 11/29/17 06:19 Diprivan IV 20 mcg/kg/min .Q24H PRN 7.985 mls/hr TITRATE PER MD ORDER Administration Protocol 5 MCG/KG/MIN Sodium Chloride 1,000 mls @ 100 mls/hr 11/28/17 23:00 11/28/17 23:10 Sodium Chloride 0.9% IV 100 mls/hr .Q10H JEFFERY Administration Vancomycin HCl 1 gm in 250 mls @ 167 mls/hr 11/29/17 06:00 11/29/17 05:12 Vancomycin 1gm IVPB 167 mls/hr Q12H JEFFERY Administration Protocol Insulin Human Regular 0 units 11/28/17 16:30 11/28/17 22:50 Humulin R Med SC Not Given ACHS JEFFERY Protocol Methylprednisolone 40 mg 11/29/17 06:00 11/29/17 05:12 Solu-Medrol IVP 40 mg Q8 JEFFERY Administration Metoprolol Tartrate 12.5 mg 11/28/17 23:45 11/29/17 09:45 Lopressor PO 12.5 mg BID JEFFERY Administration Mirtazapine 7.5 mg 11/26/17 22:30 11/28/17 22:37 Remeron PO Not Given HS JEFFERY Ondansetron HCl 4 mg 11/28/17 13:20 11/28/17 13:41 Zofran Inj IVP 4 mg Q6H PRN Administration Nausea/Vomiting Oseltamivir Phosphate 30 mg 11/28/17 23:15 11/29/17 09:45 Tamiflu PO 12/03/17 23:16 30 mg BID JEFFERY Administration Protocol Pantoprazole Sodium 40 mg 11/29/17 10:00 11/29/17 09:45 Protonix Inj IVP 40 mg DAILY JEFFERY Administration Sildenafil Citrate 20 mg 11/27/17 10:00 03/13/18 09:44 Revatio PO 20 mg BID JEFFERY Administration - Patient Studies Lab Studies: Microbiology Studies 11/29/17 06:00 Gram Stain - Preliminary Trachasp 11/26/17 19:10 Urine Culture - Final Urine,Clean Catch Enterococcus Faecalis Lab Studies 11/29/17 11/29/17 11/29/17 Range/Units 11:00 10:30 08:50 WBC (4.5-11.0) 10^3/ul RBC (3.5-6.1) 10^6/uL Hgb (12.0-16.0) g/dL Hct (36.0-48.0) % MCV (80.0-105.0) fl MCH (25.0-35.0) pg MCHC (31.0-37.0) g/dl RDW (11.5-14.5) % Plt Count (120.0-450.0) 10^3/uL MPV (7.0-11.0) fl Gran % (50.0-68.0) % Lymph % (Auto) (22.0-35.0) % Newberry % (Auto) (1.0-6.0) % Eos % (Auto) (1.5-5.0) % Baso % (Auto) (0.0-3.0) % Gran # (1.4-6.5) Lymph # (Auto) (1.2-3.4) Newberry # (Auto) (0.1-0.6) Eos # (Auto) (0.0-0.7) Baso # (Auto) (0.0-2.0) K/mm3 pCO2 63 H (35-45) mm/Hg pO2 74.0 L (30-55) mm/Hg HCO3 36.4 H (21-28) mmol/L ABG pH 7.37 (7.35-7.45) ABG Total CO2 38.3 H (22-28) mmol.L ABG O2 Saturation 96.3 (95-98) % ABG O2 Content 10.6 L (15-23) ML/dl ABG Base Excess 9.8 H (-2.0-3.0) mmol/L ABG Hemoglobin 8.0 L (11.7-17.4) g/dL ABG Carboxyhemoglobin 1.9 H (0.5-1.5) % POC ABG HHb (Measured) 3.6 (0-5) % ABG Methemoglobin 1.0 (0.0-3.0) % ABG O2 Capacity 11.0 L (16-24) mL/dl ABG Potassium (3.6-5.2) mmol/L VBG pH (7.32-7.43) VBG pCO2 (40-60) VBG HCO3 (21-28) mmol/l VBG Total CO2 (22-28) mmol.L VBG O2 Sat (Calc) (40-65) % VBG Base Excess (0.0-2.0) mmol/L VBG Potassium (3.6-5.2) mmol/L Hgb O2 Saturation 93.6 L (95.0-98.0) % Sodium (132-148) mmol/L Chloride (98-107) mmol/L Glucose (65-105) mg/dl Lactate (0.7-2.1) mmol/L Mechanical Rate FiO2 40.0 % Tidal Volume PEEP Potassium (3.6-5.0) mmol/L Carbon Dioxide (21-33) mmol/L Anion Gap (10-20) BUN (7-21) mg/dL Creatinine (0.7-1.2) mg/dl Est GFR ( Amer) Est GFR (Non-Af Amer) POC Glucose (mg/dL) 139 H (65-110) mg/dL Random Glucose (70-110) mg/dL Lactic Acid (0.7-2.1) mmol/L Calcium (8.4-10.5) mg/dL Total Bilirubin (0.2-1.3) mg/dL AST (14-36) U/L ALT (7-56) U/L Alkaline Phosphatase (38-126) U/L Lactate Dehydrogenase 206 L (333-699) U/L Total Creatine Kinase 24 L (35-230) U/L Troponin I 0.03 ng/mL Total Protein (5.8-8.3) g/dL Albumin (3.0-4.8) g/dL Globulin gm/dL Albumin/Globulin Ratio (1.1-1.8) Triglycerides (35-160) mg/dL Cholesterol (130-200) mg/dL LDL Cholesterol Direct (0-129) mg/dL HDL Cholesterol (29-60) mg/dL Procalcitonin (0.19-0.49) NG/ML Arterial Blood Potassium (3.6-5.2) mmol/L Venous Blood Potassium (3.6-5.2) mmol/L Influenza Typ A,B (EIA) (NEGATIVE) 11/29/17 11/29/17 11/29/17 Range/Units 07:39 05:45 05:45 WBC 5.2 (4.5-11.0) 10^3/ul RBC 2.65 L (3.5-6.1) 10^6/uL Hgb 8.1 L (12.0-16.0) g/dL Hct 27.3 L (36.0-48.0) % MCV 103.0 D (80.0-105.0) fl MCH 30.6 (25.0-35.0) pg MCHC 29.7 L (31.0-37.0) g/dl RDW 16.6 H (11.5-14.5) % Plt Count 238 (120.0-450.0) 10^3/uL MPV 10.2 (7.0-11.0) fl Gran % 83.4 H (50.0-68.0) % Lymph % (Auto) 11.4 L (22.0-35.0) % Newberry % (Auto) 5.0 (1.0-6.0) % Eos % (Auto) 0.0 L (1.5-5.0) % Baso % (Auto) 0.2 (0.0-3.0) % Gran # 4.32 (1.4-6.5) Lymph # (Auto) 0.6 L (1.2-3.4) [place]berry # (Auto) 0.3 (0.1-0.6) Eos # (Auto) 0.0 (0.0-0.7) Baso # (Auto) 0.01 (0.0-2.0) K/mm3 pCO2 (35-45) mm/Hg pO2 (30-55) mm/Hg HCO3 (21-28) mmol/L ABG pH (7.35-7.45) ABG Total CO2 (22-28) mmol.L ABG O2 Saturation (95-98) % ABG O2 Content (15-23) ML/dl ABG Base Excess (-2.0-3.0) mmol/L ABG Hemoglobin (11.7-17.4) g/dL ABG Carboxyhemoglobin (0.5-1.5) % POC ABG HHb (Measured) (0-5) % ABG Methemoglobin (0.0-3.0) % ABG O2 Capacity (16-24) mL/dl ABG Potassium (3.6-5.2) mmol/L VBG pH (7.32-7.43) VBG pCO2 (40-60) VBG HCO3 (21-28) mmol/l VBG Total CO2 (22-28) mmol.L VBG O2 Sat (Calc) (40-65) % VBG Base Excess (0.0-2.0) mmol/L VBG Potassium (3.6-5.2) mmol/L Hgb O2 Saturation (95.0-98.0) % Sodium 138 (132-148) mmol/L Chloride 99 (98-107) mmol/L Glucose (65-105) mg/dl Lactate (0.7-2.1) mmol/L Mechanical Rate FiO2 % Tidal Volume PEEP Potassium 4.6 (3.6-5.0) mmol/L Carbon Dioxide 34 H (21-33) mmol/L Anion Gap 10 (10-20) BUN 30 H (7-21) mg/dL Creatinine 0.7 (0.7-1.2) mg/dl Est GFR ( Amer) > 60 Est GFR (Non-Af Amer) > 60 POC Glucose (mg/dL) 160 H (65-110) mg/dL Random Glucose 135 H (70-110) mg/dL Lactic Acid (0.7-2.1) mmol/L Calcium 9.4 (8.4-10.5) mg/dL Total Bilirubin 0.4 (0.2-1.3) mg/dL AST 20 (14-36) U/L ALT 24 (7-56) U/L Alkaline Phosphatase 38 (38-126) U/L Lactate Dehydrogenase 192 L (333-699) U/L Total Creatine Kinase < 20 L (35-230) U/L Troponin I 0.03 D ng/mL Total Protein 4.6 L (5.8-8.3) g/dL Albumin 2.4 L (3.0-4.8) g/dL Globulin 2.2 gm/dL Albumin/Globulin Ratio 1.1 (1.1-1.8) Triglycerides 171 H (35-160) mg/dL Cholesterol 125 L (130-200) mg/dL LDL Cholesterol Direct 59 (0-129) mg/dL HDL Cholesterol 43 (29-60) mg/dL Procalcitonin (0.19-0.49) NG/ML Arterial Blood Potassium (3.6-5.2) mmol/L Venous Blood Potassium (3.6-5.2) mmol/L Influenza Typ A,B (EIA) (NEGATIVE) 11/29/17 11/29/17 11/28/17 Range/Units 04:45 01:08 23:44 WBC (4.5-11.0) 10^3/ul RBC (3.5-6.1) 10^6/uL Hgb (12.0-16.0) g/dL Hct (36.0-48.0) % MCV (80.0-105.0) fl MCH (25.0-35.0) pg MCHC (31.0-37.0) g/dl RDW (11.5-14.5) % Plt Count (120.0-450.0) 10^3/uL MPV (7.0-11.0) fl Gran % (50.0-68.0) % Lymph % (Auto) (22.0-35.0) % Newberry % (Auto) (1.0-6.0) % Eos % (Auto) (1.5-5.0) % Baso % (Auto) (0.0-3.0) % Gran # (1.4-6.5) Lymph # (Auto) (1.2-3.4) [place]berry # (Auto) (0.1-0.6) Eos # (Auto) (0.0-0.7) Baso # (Auto) (0.0-2.0) K/mm3 pCO2 53 H 61 H (35-45) mm/Hg pO2 62.0 L 398.0 H (30-55) mm/Hg HCO3 35.2 H 36.9 H (21-28) mmol/L ABG pH 7.43 7.39 (7.35-7.45) ABG Total CO2 36.8 H 38.8 H (22-28) mmol.L ABG O2 Saturation 96.3 98.1 H (95-98) % ABG O2 Content 10.6 L (15-23) ML/dl ABG Base Excess 9.7 H 9.6 H (-2.0-3.0) mmol/L ABG Hemoglobin 8.0 L (11.7-17.4) g/dL ABG Carboxyhemoglobin 1.9 H (0.5-1.5) % POC ABG HHb (Measured) 3.6 (0-5) % ABG Methemoglobin 0.6 (0.0-3.0) % ABG O2 Capacity 11.0 L (16-24) mL/dl ABG Potassium 5.0 (3.6-5.2) mmol/L VBG pH (7.32-7.43) VBG pCO2 (40-60) VBG HCO3 (21-28) mmol/l VBG Total CO2 (22-28) mmol.L VBG O2 Sat (Calc) (40-65) % VBG Base Excess (0.0-2.0) mmol/L VBG Potassium (3.6-5.2) mmol/L Hgb O2 Saturation 93.8 L (95.0-98.0) % Sodium 137.0 (132-148) mmol/L Chloride 106.0 (98-107) mmol/L Glucose 117 H (65-105) mg/dl Lactate 1.0 (0.7-2.1) mmol/L Mechanical Rate 18 FiO2 40.0 100.0 % Tidal Volume 400 PEEP 5 Potassium (3.6-5.0) mmol/L Carbon Dioxide (21-33) mmol/L Anion Gap (10-20) BUN (7-21) mg/dL Creatinine (0.7-1.2) mg/dl Est GFR ( Amer) Est GFR (Non-Af Amer) POC Glucose (mg/dL) (65-110) mg/dL Random Glucose (70-110) mg/dL Lactic Acid (0.7-2.1) mmol/L Calcium (8.4-10.5) mg/dL Total Bilirubin (0.2-1.3) mg/dL AST (14-36) U/L ALT (7-56) U/L Alkaline Phosphatase (38-126) U/L Lactate Dehydrogenase (333-699) U/L Total Creatine Kinase (35-230) U/L Troponin I ng/mL Total Protein (5.8-8.3) g/dL Albumin (3.0-4.8) g/dL Globulin gm/dL Albumin/Globulin Ratio (1.1-1.8) Triglycerides (35-160) mg/dL Cholesterol (130-200) mg/dL LDL Cholesterol Direct (0-129) mg/dL HDL Cholesterol (29-60) mg/dL Procalcitonin (0.19-0.49) NG/ML Arterial Blood Potassium 5.0 (3.6-5.2) mmol/L Venous Blood Potassium (3.6-5.2) mmol/L Influenza Typ A,B (EIA) Negative for flu a/b (NEGATIVE) 11/28/17 11/28/17 11/28/17 Range/Units 23:10 23:10 23:10 WBC 5.6 (4.5-11.0) 10^3/ul RBC 2.95 L (3.5-6.1) 10^6/uL Hgb 9.0 L (12.0-16.0) g/dL Hct 31.3 L (36.0-48.0) % MCV 106.1 H D (80.0-105.0) fl MCH 30.5 (25.0-35.0) pg MCHC 28.8 L (31.0-37.0) g/dl RDW 16.9 H (11.5-14.5) % Plt Count 304 (120.0-450.0) 10^3/uL MPV 10.2 (7.0-11.0) fl Gran % 78.5 H (50.0-68.0) % Lymph % (Auto) 10.6 L (22.0-35.0) % [place]berry % (Auto) 10.5 H (1.0-6.0) % Eos % (Auto) 0.2 L (1.5-5.0) % Baso % (Auto) 0.2 (0.0-3.0) % Gran # 4.43 (1.4-6.5) Lymph # (Auto) 0.6 L (1.2-3.4) [place]berry # (Auto) 0.6 (0.1-0.6) Eos # (Auto) 0.0 (0.0-0.7) Baso # (Auto) 0.01 (0.0-2.0) K/mm3 pCO2 (35-45) mm/Hg pO2 (30-55) mm/Hg HCO3 (21-28) mmol/L ABG pH (7.35-7.45) ABG Total CO2 (22-28) mmol.L ABG O2 Saturation (95-98) % ABG O2 Content (15-23) ML/dl ABG Base Excess (-2.0-3.0) mmol/L ABG Hemoglobin (11.7-17.4) g/dL ABG Carboxyhemoglobin (0.5-1.5) % POC ABG HHb (Measured) (0-5) % ABG Methemoglobin (0.0-3.0) % ABG O2 Capacity (16-24) mL/dl ABG Potassium (3.6-5.2) mmol/L VBG pH (7.32-7.43) VBG pCO2 (40-60) VBG HCO3 (21-28) mmol/l VBG Total CO2 (22-28) mmol.L VBG O2 Sat (Calc) (40-65) % VBG Base Excess (0.0-2.0) mmol/L VBG Potassium (3.6-5.2) mmol/L Hgb O2 Saturation (95.0-98.0) % Sodium 140 (132-148) mmol/L Chloride 97 L (98-107) mmol/L Glucose (65-105) mg/dl Lactate (0.7-2.1) mmol/L Mechanical Rate FiO2 % Tidal Volume PEEP Potassium 5.5 H (3.6-5.0) mmol/L Carbon Dioxide 39 H (21-33) mmol/L Anion Gap 10 (10-20) BUN 30 H (7-21) mg/dL Creatinine 0.8 (0.7-1.2) mg/dl Est GFR ( Amer) > 60 Est GFR (Non-Af Amer) > 60 POC Glucose (mg/dL) (65-110) mg/dL Random Glucose 105 (70-110) mg/dL Lactic Acid (0.7-2.1) mmol/L Calcium 9.7 (8.4-10.5) mg/dL Total Bilirubin 0.4 (0.2-1.3) mg/dL AST 19 (14-36) U/L ALT 26 (7-56) U/L Alkaline Phosphatase 45 (38-126) U/L Lactate Dehydrogenase 255 L (333-699) U/L Total Creatine Kinase < 20 L (35-230) U/L Troponin I 0.05 D ng/mL Total Protein 5.1 L (5.8-8.3) g/dL Albumin 2.8 L (3.0-4.8) g/dL Globulin 2.3 gm/dL Albumin/Globulin Ratio 1.2 (1.1-1.8) Triglycerides (35-160) mg/dL Cholesterol (130-200) mg/dL LDL Cholesterol Direct (0-129) mg/dL HDL Cholesterol (29-60) mg/dL Procalcitonin 0.08 L (0.19-0.49) NG/ML Arterial Blood Potassium (3.6-5.2) mmol/L Venous Blood Potassium (3.6-5.2) mmol/L Influenza Typ A,B (EIA) (NEGATIVE) 11/28/17 11/28/17 11/28/17 Range/Units 22:47 21:30 21:30 WBC (4.5-11.0) 10^3/ul RBC (3.5-6.1) 10^6/uL Hgb (12.0-16.0) g/dL Hct (36.0-48.0) % MCV (80.0-105.0) fl MCH (25.0-35.0) pg MCHC (31.0-37.0) g/dl RDW (11.5-14.5) % Plt Count (120.0-450.0) 10^3/uL MPV (7.0-11.0) fl Gran % (50.0-68.0) % Lymph % (Auto) (22.0-35.0) % [place]berry % (Auto) (1.0-6.0) % Eos % (Auto) (1.5-5.0) % Baso % (Auto) (0.0-3.0) % Gran # (1.4-6.5) Lymph # (Auto) (1.2-3.4) [place]berry # (Auto) (0.1-0.6) Eos # (Auto) (0.0-0.7) Baso # (Auto) (0.0-2.0) K/mm3 pCO2 105 H* (35-45) mm/Hg pO2 122.0 H (30-55) mm/Hg HCO3 37.4 H (21-28) mmol/L ABG pH 7.16 L* (7.35-7.45) ABG Total CO2 40.6 H (22-28) mmol.L ABG O2 Saturation 97.7 (95-98) % ABG O2 Content 12.2 L (15-23) ML/dl ABG Base Excess 6.7 H (-2.0-3.0) mmol/L ABG Hemoglobin 8.9 L (11.7-17.4) g/dL ABG Carboxyhemoglobin 1.9 H (0.5-1.5) % POC ABG HHb (Measured) 2.2 (0-5) % ABG Methemoglobin 0.4 (0.0-3.0) % ABG O2 Capacity 12.5 L (16-24) mL/dl ABG Potassium (3.6-5.2) mmol/L VBG pH (7.32-7.43) VBG pCO2 (40-60) VBG HCO3 (21-28) mmol/l VBG Total CO2 (22-28) mmol.L VBG O2 Sat (Calc) (40-65) % VBG Base Excess (0.0-2.0) mmol/L VBG Potassium (3.6-5.2) mmol/L Hgb O2 Saturation 95.5 (95.0-98.0) % Sodium (132-148) mmol/L Chloride (98-107) mmol/L Glucose (65-105) mg/dl Lactate (0.7-2.1) mmol/L Mechanical Rate FiO2 50.0 % Tidal Volume PEEP Potassium (3.6-5.0) mmol/L Carbon Dioxide (21-33) mmol/L Anion Gap (10-20) BUN (7-21) mg/dL Creatinine (0.7-1.2) mg/dl Est GFR ( Amer) Est GFR (Non-Af Amer) POC Glucose (mg/dL) 131 H 132 H (65-110) mg/dL Random Glucose (70-110) mg/dL Lactic Acid (0.7-2.1) mmol/L Calcium (8.4-10.5) mg/dL Total Bilirubin (0.2-1.3) mg/dL AST (14-36) U/L ALT (7-56) U/L Alkaline Phosphatase (38-126) U/L Lactate Dehydrogenase (333-699) U/L Total Creatine Kinase (35-230) U/L Troponin I ng/mL Total Protein (5.8-8.3) g/dL Albumin (3.0-4.8) g/dL Globulin gm/dL Albumin/Globulin Ratio (1.1-1.8) Triglycerides (35-160) mg/dL Cholesterol (130-200) mg/dL LDL Cholesterol Direct (0-129) mg/dL HDL Cholesterol (29-60) mg/dL Procalcitonin (0.19-0.49) NG/ML Arterial Blood Potassium (3.6-5.2) mmol/L Venous Blood Potassium (3.6-5.2) mmol/L Influenza Typ A,B (EIA) (NEGATIVE) 11/28/17 11/28/17 11/28/17 Range/Units 17:21 17:21 17:21 WBC (4.5-11.0) 10^3/ul RBC (3.5-6.1) 10^6/uL Hgb (12.0-16.0) g/dL Hct (36.0-48.0) % MCV (80.0-105.0) fl MCH (25.0-35.0) pg MCHC (31.0-37.0) g/dl RDW (11.5-14.5) % Plt Count (120.0-450.0) 10^3/uL MPV (7.0-11.0) fl Gran % (50.0-68.0) % Lymph % (Auto) (22.0-35.0) % Newberry % (Auto) (1.0-6.0) % Eos % (Auto) (1.5-5.0) % Baso % (Auto) (0.0-3.0) % Gran # (1.4-6.5) Lymph # (Auto) (1.2-3.4) Newberry # (Auto) (0.1-0.6) Eos # (Auto) (0.0-0.7) Baso # (Auto) (0.0-2.0) K/mm3 pCO2 (35-45) mm/Hg pO2 28 L (30-55) mm/Hg HCO3 (21-28) mmol/L ABG pH (7.35-7.45) ABG Total CO2 (22-28) mmol.L ABG O2 Saturation (95-98) % ABG O2 Content (15-23) ML/dl ABG Base Excess (-2.0-3.0) mmol/L ABG Hemoglobin (11.7-17.4) g/dL ABG Carboxyhemoglobin (0.5-1.5) % POC ABG HHb (Measured) (0-5) % ABG Methemoglobin (0.0-3.0) % ABG O2 Capacity (16-24) mL/dl ABG Potassium (3.6-5.2) mmol/L VBG pH 7.25 L (7.32-7.43) VBG pCO2 94.0 H* (40-60) VBG HCO3 41.2 H (21-28) mmol/l VBG Total CO2 44.1 H (22-28) mmol.L VBG O2 Sat (Calc) 59.0 (40-65) % VBG Base Excess 10.0 H (0.0-2.0) mmol/L VBG Potassium 5.5 H (3.6-5.2) mmol/L Hgb O2 Saturation (95.0-98.0) % Sodium 140 138.0 (132-148) mmol/L Chloride 98 101.0 (98-107) mmol/L Glucose 116 H (65-105) mg/dl Lactate 1.1 (0.7-2.1) mmol/L Mechanical Rate FiO2 21.0 % Tidal Volume PEEP Potassium 5.5 H (3.6-5.0) mmol/L Carbon Dioxide 37 H (21-33) mmol/L Anion Gap 11 (10-20) BUN 26 H (7-21) mg/dL Creatinine 0.7 (0.7-1.2) mg/dl Est GFR ( Amer) > 60 Est GFR (Non-Af Amer) > 60 POC Glucose (mg/dL) (65-110) mg/dL Random Glucose 113 H (70-110) mg/dL Lactic Acid (0.7-2.1) mmol/L Calcium 9.5 (8.4-10.5) mg/dL Total Bilirubin (0.2-1.3) mg/dL AST (14-36) U/L ALT (7-56) U/L Alkaline Phosphatase (38-126) U/L Lactate Dehydrogenase 273 L (333-699) U/L Total Creatine Kinase < 20 L (35-230) U/L Troponin I 0.02 D ng/mL Total Protein (5.8-8.3) g/dL Albumin (3.0-4.8) g/dL Globulin gm/dL Albumin/Globulin Ratio (1.1-1.8) Triglycerides (35-160) mg/dL Cholesterol (130-200) mg/dL LDL Cholesterol Direct (0-129) mg/dL HDL Cholesterol (29-60) mg/dL Procalcitonin (0.19-0.49) NG/ML Arterial Blood Potassium (3.6-5.2) mmol/L Venous Blood Potassium 5.5 H (3.6-5.2) mmol/L Influenza Typ A,B (EIA) (NEGATIVE) 11/28/17 11/28/17 Range/Units 17:21 16:22 WBC (4.5-11.0) 10^3/ul RBC (3.5-6.1) 10^6/uL Hgb (12.0-16.0) g/dL Hct (36.0-48.0) % MCV (80.0-105.0) fl MCH (25.0-35.0) pg MCHC (31.0-37.0) g/dl RDW (11.5-14.5) % Plt Count (120.0-450.0) 10^3/uL MPV (7.0-11.0) fl Gran % (50.0-68.0) % Lymph % (Auto) (22.0-35.0) % Newberry % (Auto) (1.0-6.0) % Eos % (Auto) (1.5-5.0) % Baso % (Auto) (0.0-3.0) % Gran # (1.4-6.5) Lymph # (Auto) (1.2-3.4) Newberry # (Auto) (0.1-0.6) Eos # (Auto) (0.0-0.7) Baso # (Auto) (0.0-2.0) K/mm3 pCO2 (35-45) mm/Hg pO2 (30-55) mm/Hg HCO3 (21-28) mmol/L ABG pH (7.35-7.45) ABG Total CO2 (22-28) mmol.L ABG O2 Saturation (95-98) % ABG O2 Content (15-23) ML/dl ABG Base Excess (-2.0-3.0) mmol/L ABG Hemoglobin (11.7-17.4) g/dL ABG Carboxyhemoglobin (0.5-1.5) % POC ABG HHb (Measured) (0-5) % ABG Methemoglobin (0.0-3.0) % ABG O2 Capacity (16-24) mL/dl ABG Potassium (3.6-5.2) mmol/L VBG pH (7.32-7.43) VBG pCO2 (40-60) VBG HCO3 (21-28) mmol/l VBG Total CO2 (22-28) mmol.L VBG O2 Sat (Calc) (40-65) % VBG Base Excess (0.0-2.0) mmol/L VBG Potassium (3.6-5.2) mmol/L Hgb O2 Saturation (95.0-98.0) % Sodium (132-148) mmol/L Chloride (98-107) mmol/L Glucose (65-105) mg/dl Lactate (0.7-2.1) mmol/L Mechanical Rate FiO2 % Tidal Volume PEEP Potassium (3.6-5.0) mmol/L Carbon Dioxide (21-33) mmol/L Anion Gap (10-20) BUN (7-21) mg/dL Creatinine (0.7-1.2) mg/dl Est GFR ( Amer) Est GFR (Non-Af Amer) POC Glucose (mg/dL) 121 H (65-110) mg/dL Random Glucose (70-110) mg/dL Lactic Acid 1.0 (0.7-2.1) mmol/L Calcium (8.4-10.5) mg/dL Total Bilirubin (0.2-1.3) mg/dL AST (14-36) U/L ALT (7-56) U/L Alkaline Phosphatase (38-126) U/L Lactate Dehydrogenase (333-699) U/L Total Creatine Kinase (35-230) U/L Troponin I ng/mL Total Protein (5.8-8.3) g/dL Albumin (3.0-4.8) g/dL Globulin gm/dL Albumin/Globulin Ratio (1.1-1.8) Triglycerides (35-160) mg/dL Cholesterol (130-200) mg/dL LDL Cholesterol Direct (0-129) mg/dL HDL Cholesterol (29-60) mg/dL Procalcitonin (0.19-0.49) NG/ML Arterial Blood Potassium (3.6-5.2) mmol/L Venous Blood Potassium (3.6-5.2) mmol/L Influenza Typ A,B (EIA) (NEGATIVE) Laboratory Results - last 24 hr 11/28/17 11/28/17 11/28/17 16:22 17:21 17:21 WBC RBC Hgb Hct MCV MCH MCHC RDW Plt Count MPV Gran % Lymph % (Auto) [place]berry % (Auto) Eos % (Auto) Baso % (Auto) Gran # Lymph # (Auto) [place]berry # (Auto) Eos # (Auto) Baso # (Auto) pCO2 pO2 28 L HCO3 ABG pH ABG Total CO2 ABG O2 Saturation ABG O2 Content ABG Base Excess ABG Hemoglobin ABG Carboxyhemoglobin POC ABG HHb (Measured) ABG Methemoglobin ABG O2 Capacity ABG Potassium VBG pH 7.25 L VBG pCO2 94.0 H* VBG HCO3 41.2 H VBG Total CO2 44.1 H VBG O2 Sat (Calc) 59.0 VBG Base Excess 10.0 H VBG Potassium 5.5 H Hgb O2 Saturation Sodium 138.0 Chloride 101.0 Glucose 116 H Lactate 1.1 Mechanical Rate FiO2 21.0 Tidal Volume PEEP Potassium Carbon Dioxide Anion Gap BUN Creatinine Est GFR ( Amer) Est GFR (Non-Af Amer) POC Glucose (mg/dL) 121 H Random Glucose Lactic Acid 1.0 Calcium Total Bilirubin AST ALT Alkaline Phosphatase Lactate Dehydrogenase Total Creatine Kinase Troponin I Total Protein Albumin Globulin Albumin/Globulin Ratio Triglycerides Cholesterol LDL Cholesterol Direct HDL Cholesterol Procalcitonin Arterial Blood Potassium Venous Blood Potassium 5.5 H Influenza Typ A,B (EIA) 11/28/17 11/28/17 11/28/17 17:21 17:21 21:30 WBC RBC Hgb Hct MCV MCH MCHC RDW Plt Count MPV Gran % Lymph % (Auto) Newberry % (Auto) Eos % (Auto) Baso % (Auto) Gran # Lymph # (Auto) [place]berry # (Auto) Eos # (Auto) Baso # (Auto) pCO2 105 H* pO2 122.0 H HCO3 37.4 H ABG pH 7.16 L* ABG Total CO2 40.6 H ABG O2 Saturation 97.7 ABG O2 Content 12.2 L ABG Base Excess 6.7 H ABG Hemoglobin 8.9 L ABG Carboxyhemoglobin 1.9 H POC ABG HHb (Measured) 2.2 ABG Methemoglobin 0.4 ABG O2 Capacity 12.5 L ABG Potassium VBG pH VBG pCO2 VBG HCO3 VBG Total CO2 VBG O2 Sat (Calc) VBG Base Excess VBG Potassium Hgb O2 Saturation 95.5 Sodium 140 Chloride 98 Glucose Lactate Mechanical Rate FiO2 50.0 Tidal Volume PEEP Potassium 5.5 H Carbon Dioxide 37 H Anion Gap 11 BUN 26 H Creatinine 0.7 Est GFR ( Amer) > 60 Est GFR (Non-Af Amer) > 60 POC Glucose (mg/dL) Random Glucose 113 H Lactic Acid Calcium 9.5 Total Bilirubin AST ALT Alkaline Phosphatase Lactate Dehydrogenase 273 L Total Creatine Kinase < 20 L Troponin I 0.02 D Total Protein Albumin Globulin Albumin/Globulin Ratio Triglycerides Cholesterol LDL Cholesterol Direct HDL Cholesterol Procalcitonin Arterial Blood Potassium Venous Blood Potassium Influenza Typ A,B (EIA) 11/28/17 11/28/17 11/28/17 21:30 22:47 23:10 WBC RBC Hgb Hct MCV MCH MCHC RDW Plt Count MPV Gran % Lymph % (Auto) Newberry % (Auto) Eos % (Auto) Baso % (Auto) Gran # Lymph # (Auto) [place]berry # (Auto) Eos # (Auto) Baso # (Auto) pCO2 pO2 HCO3 ABG pH ABG Total CO2 ABG O2 Saturation ABG O2 Content ABG Base Excess ABG Hemoglobin ABG Carboxyhemoglobin POC ABG HHb (Measured) ABG Methemoglobin ABG O2 Capacity ABG Potassium VBG pH VBG pCO2 VBG HCO3 VBG Total CO2 VBG O2 Sat (Calc) VBG Base Excess VBG Potassium Hgb O2 Saturation Sodium Chloride Glucose Lactate Mechanical Rate FiO2 Tidal Volume PEEP Potassium Carbon Dioxide Anion Gap BUN Creatinine Est GFR ( Amer) Est GFR (Non-Af Amer) POC Glucose (mg/dL) 132 H 131 H Random Glucose Lactic Acid Calcium Total Bilirubin AST ALT Alkaline Phosphatase Lactate Dehydrogenase Total Creatine Kinase Troponin I Total Protein Albumin Globulin Albumin/Globulin Ratio Triglycerides Cholesterol LDL Cholesterol Direct HDL Cholesterol Procalcitonin 0.08 L Arterial Blood Potassium Venous Blood Potassium Influenza Typ A,B (EIA) 11/28/17 11/28/17 11/28/17 23:10 23:10 23:44 WBC 5.6 RBC 2.95 L Hgb 9.0 L Hct 31.3 L MCV 106.1 H D MCH 30.5 MCHC 28.8 L RDW 16.9 H Plt Count 304 MPV 10.2 Gran % 78.5 H Lymph % (Auto) 10.6 L Newberry % (Auto) 10.5 H Eos % (Auto) 0.2 L Baso % (Auto) 0.2 Gran # 4.43 Lymph # (Auto) 0.6 L [place]berry # (Auto) 0.6 Eos # (Auto) 0.0 Baso # (Auto) 0.01 pCO2 61 H pO2 398.0 H HCO3 36.9 H ABG pH 7.39 ABG Total CO2 38.8 H ABG O2 Saturation 98.1 H ABG O2 Content ABG Base Excess 9.6 H ABG Hemoglobin ABG Carboxyhemoglobin POC ABG HHb (Measured) ABG Methemoglobin ABG O2 Capacity ABG Potassium 5.0 VBG pH VBG pCO2 VBG HCO3 VBG Total CO2 VBG O2 Sat (Calc) VBG Base Excess VBG Potassium Hgb O2 Saturation Sodium 140 137.0 Chloride 97 L 106.0 Glucose 117 H Lactate 1.0 Mechanical Rate 18 FiO2 100.0 Tidal Volume 400 PEEP 5 Potassium 5.5 H Carbon Dioxide 39 H Anion Gap 10 BUN 30 H Creatinine 0.8 Est GFR ( Amer) > 60 Est GFR (Non-Af Amer) > 60 POC Glucose (mg/dL) Random Glucose 105 Lactic Acid Calcium 9.7 Total Bilirubin 0.4 AST 19 ALT 26 Alkaline Phosphatase 45 Lactate Dehydrogenase 255 L Total Creatine Kinase < 20 L Troponin I 0.05 D Total Protein 5.1 L Albumin 2.8 L Globulin 2.3 Albumin/Globulin Ratio 1.2 Triglycerides Cholesterol LDL Cholesterol Direct HDL Cholesterol Procalcitonin Arterial Blood Potassium 5.0 Venous Blood Potassium Influenza Typ A,B (EIA) 11/29/17 11/29/17 11/29/17 01:08 04:45 05:45 WBC RBC Hgb Hct MCV MCH MCHC RDW Plt Count MPV Gran % Lymph % (Auto) Newberry % (Auto) Eos % (Auto) Baso % (Auto) Gran # Lymph # (Auto) [place] # (Auto) Eos # (Auto) Baso # (Auto) pCO2 53 H pO2 62.0 L HCO3 35.2 H ABG pH 7.43 ABG Total CO2 36.8 H ABG O2 Saturation 96.3 ABG O2 Content 10.6 L ABG Base Excess 9.7 H ABG Hemoglobin 8.0 L ABG Carboxyhemoglobin 1.9 H POC ABG HHb (Measured) 3.6 ABG Methemoglobin 0.6 ABG O2 Capacity 11.0 L ABG Potassium VBG pH VBG pCO2 VBG HCO3 VBG Total CO2 VBG O2 Sat (Calc) VBG Base Excess VBG Potassium Hgb O2 Saturation 93.8 L Sodium 138 Chloride 99 Glucose Lactate Mechanical Rate FiO2 40.0 Tidal Volume PEEP Potassium 4.6 Carbon Dioxide 34 H Anion Gap 10 BUN 30 H Creatinine 0.7 Est GFR ( Amer) > 60 Est GFR (Non-Af Amer) > 60 POC Glucose (mg/dL) Random Glucose 135 H Lactic Acid Calcium 9.4 Total Bilirubin 0.4 AST 20 ALT 24 Alkaline Phosphatase 38 Lactate Dehydrogenase 192 L Total Creatine Kinase < 20 L Troponin I 0.03 D Total Protein 4.6 L Albumin 2.4 L Globulin 2.2 Albumin/Globulin Ratio 1.1 Triglycerides 171 H Cholesterol 125 L LDL Cholesterol Direct 59 HDL Cholesterol 43 Procalcitonin Arterial Blood Potassium Venous Blood Potassium Influenza Typ A,B (EIA) Negative for flu a/b 11/29/17 11/29/17 11/29/17 05:45 07:39 08:50 WBC 5.2 RBC 2.65 L Hgb 8.1 L Hct 27.3 L MCV 103.0 D MCH 30.6 MCHC 29.7 L RDW 16.6 H Plt Count 238 MPV 10.2 Gran % 83.4 H Lymph % (Auto) 11.4 L [place]berry % (Auto) 5.0 Eos % (Auto) 0.0 L Baso % (Auto) 0.2 Gran # 4.32 Lymph # (Auto) 0.6 L [place] # (Auto) 0.3 Eos # (Auto) 0.0 Baso # (Auto) 0.01 pCO2 63 H pO2 74.0 L HCO3 36.4 H ABG pH 7.37 ABG Total CO2 38.3 H ABG O2 Saturation 96.3 ABG O2 Content 10.6 L ABG Base Excess 9.8 H ABG Hemoglobin 8.0 L ABG Carboxyhemoglobin 1.9 H POC ABG HHb (Measured) 3.6 ABG Methemoglobin 1.0 ABG O2 Capacity 11.0 L ABG Potassium VBG pH VBG pCO2 VBG HCO3 VBG Total CO2 VBG O2 Sat (Calc) VBG Base Excess VBG Potassium Hgb O2 Saturation 93.6 L Sodium Chloride Glucose Lactate Mechanical Rate FiO2 40.0 Tidal Volume PEEP Potassium Carbon Dioxide Anion Gap BUN Creatinine Est GFR ( Amer) Est GFR (Non-Af Amer) POC Glucose (mg/dL) 160 H Random Glucose Lactic Acid Calcium Total Bilirubin AST ALT Alkaline Phosphatase Lactate Dehydrogenase Total Creatine Kinase Troponin I Total Protein Albumin Globulin Albumin/Globulin Ratio Triglycerides Cholesterol LDL Cholesterol Direct HDL Cholesterol Procalcitonin Arterial Blood Potassium Venous Blood Potassium Influenza Typ A,B (EIA) 11/29/17 11/29/17 10:30 11:00 WBC RBC Hgb Hct MCV MCH MCHC RDW Plt Count MPV Gran % Lymph % (Auto) [place] % (Auto) Eos % (Auto) Baso % (Auto) Gran # Lymph # (Auto) [place] # (Auto) Eos # (Auto) Baso # (Auto) pCO2 pO2 HCO3 ABG pH ABG Total CO2 ABG O2 Saturation ABG O2 Content ABG Base Excess ABG Hemoglobin ABG Carboxyhemoglobin POC ABG HHb (Measured) ABG Methemoglobin ABG O2 Capacity ABG Potassium VBG pH VBG pCO2 VBG HCO3 VBG Total CO2 VBG O2 Sat (Calc) VBG Base Excess VBG Potassium Hgb O2 Saturation Sodium Chloride Glucose Lactate Mechanical Rate FiO2 Tidal Volume PEEP Potassium Carbon Dioxide Anion Gap BUN Creatinine Est GFR ( Amer) Est GFR (Non-Af Amer) POC Glucose (mg/dL) 139 H Random Glucose Lactic Acid Calcium Total Bilirubin AST ALT Alkaline Phosphatase Lactate Dehydrogenase 206 L Total Creatine Kinase 24 L Troponin I 0.03 Total Protein Albumin Globulin Albumin/Globulin Ratio Triglycerides Cholesterol LDL Cholesterol Direct HDL Cholesterol Procalcitonin Arterial Blood Potassium Venous Blood Potassium Influenza Typ A,B (EIA) EKG/Cardiology Studies: Cardiology / EKG Studies 11/28/17 16:55 ELECTROCARDIOGRAM Stat Comment: Reason For Exam: RACK PUSHER rapid HR Critical Care Progress Note - Nutrition Nutrition: Nutrition Category Date Time Status Heart Healthy Diet [DIET] Diets 11/26/17 Breakfast Ordered Attending/Attestation - Attestation I have personally seen and examined this patient.: Yes I have fully participated in the care of the patient.: Yes I have reviewed all pertinent clinical information: Yes Notes (Text): 11/29/17 14:40 82 yo female intubated for hypercapnic respiratory failure, now extubated to BPAP. hemodynamically and respiratory gerardo stable, continue with nebs, steroids taper, abx, BPAP at night. pulm follow up. pulm rehab. ccm time 40 min
[2017-11-29] MEDS: Sodium Chloride 0.9% 1,000 ML IV SCH (14:39)
--- NOTE | 2017-11-29 15:22 | PN ---
DATE: 11/29/2017 CARDIOLOGY FOLLOWUP SUBJECTIVE: The patient is extubated this morning. She is on a BiPAP. PHYSICAL EXAMINATION: VITAL SIGNS: Blood pressure is 127/61, the heart rates in the 90s. NECK: Negative JVD. LUNGS: Decreased breath sounds bilaterally. HEART: Reveals S1, S2. EXTREMITIES: Without edema. LABORATORY DATA: Hemoglobin is 8.1. Chemistries, BUN and creatinine are 30 and 0.7, glucose is 135. IMPRESSION: 1. Respiratory failure. 2. Severe chronic obstructive pulmonary disease. 3. Pulmonary hypertension. 4. Stable angina. 5. Coronary artery disease. Given these findings, the patient was extubated today. She is currently maintaining her pulse oximetry levels on BiPAP. Harrison Echavarria MD
--- NOTE | 2017-11-29 15:34 | PN ---
DATE: SUBJECTIVE: She was intubated yesterday. She was extubated today. She is on BiPAP and she has a 99% O2 saturation. She is much more comfortable and she is sleeping presently. She had acute shortness of breath yesterday. MEDICATIONS: She is on aspirin, Diprivan, doxycycline IV, DuoNeb, insulin, Lopressor, Lovenox, Merrem IV, Protonix, Pulmicort, Remeron, Revatio, IV fluids, Solu-Medrol, Tylenol, vancomycin, Xanax and Zofran. PHYSICAL EXAMINATION VITAL SIGNS: She has a 99 temperature; 105 pulse; 14 respiratory rate; 96% O2 sat, on mechanical ventilator; 102/56 blood pressure. HEENT: Head is atraumatic, normocephalic. HEART: Regular rate. LUNGS: Decreased breath sounds, but clear. ABDOMEN: Soft. EXTREMITIES: No edema. LABORATORY DATA: She has a 5.2 white count, 8.1 hemoglobin, 27.3 hematocrit with a 238,000 platelets. If it drops below 8, I will transfuse her. She has a 138 sodium, potassium 4.6, BUN 30, creatinine 0.7. GFR is greater than 60, sugar is 139, AST is 20, ALT is 24, alkaline phosphatase 38, total protein 4.6 with troponin 0.03. There is a whole bunch of things going on with this young lady. She had an acute respiratory failure, today was on the ventilator the ventilator; chronic obstructive pulmonary disease; congestive heart failure; pulmonary hypertension; urinary tract infection; electrolyte issues and hypoxemia. We will continue with aggressive treatment and care in the Intensive Care Unit. Also, discussed with family. Nigel Wheeler DO [email or web address]
[2017-11-29] MEDS ORDERED: Sodium Chloride 0.9% 1,000 ML IV SCH ×2 (17:12→17:15)
[2017-11-29] MEDS: Insulin Reg-MEDIUM-Coverage SC SCH ×3 (17:37→22:00)
[2017-11-29] MEDS ORDERED: Pantoprazole 40 mg EC Tab PO ONE (23:00)
[2017-11-30] MEDS: Albuterol-Ipratrop 3 mg / 0.5 (3 ml) UD IH SCH ×4 (04:20→20:36)
[2017-11-30] MEDS: Meropenem IV 1 gm in NS 50 ML IVPB SCH ×3 (05:00→21:22)
[2017-11-30] MEDS: MethylPREDNISolone 40 mg Vial IVP SCH ×3 (05:00→21:24)
[2017-11-30] MEDS: Vancomycin 1gm in NS 250ml 1 GM/250 ML BAG IVPB SCH ×2 (05:01→17:13)
[2017-11-30] MEDS: Budesonide 0.5 mg/2 ml Inhal Susp UD IH SCH ×2 (07:07→20:37)
[2017-11-30 07:28] LABS: GRAN # 2.67 (1.4-6.5); GRAN % 76.7 % (50.0-68.0); HEMOGLOBIN 8.7 g/dL (12.0-16.0); LYMPH # 0.6 (1.2-3.4); LYMPH % 16.7 % (22.0-35.0); MEAN CELL VOLUME 100.4 fl (80.0-105.0); MEAN CORPUSCULAR HEMOGLOBIN 30.5 pg (25.0-35.0); MEAN CORPUSCULAR HGB CONC 30.4 g/dl (31.0-37.0); MEAN PLATELET VOLUME 10.1 fl (7.0-11.0); MONO # 0.2 (0.1-0.6); MONO % 6.6 % (1.0-6.0); RBC 2.85 10^6/uL (3.5-6.1); RED CELL DISTRIBUTION WIDTH 16.1 % (11.5-14.5); WHITE BLOOD COUNT 3.5 10^3/ul (4.5-11.0)
[2017-11-30 07:33] LABS: ARTERIAL BLOOD GAS HEMOGLOBIN 8.8 g/dL (11.7-17.4); ARTERIAL BLOOD GAS O2 CAPACITY 12.1 mL/dl (16-24); ARTERIAL BLOOD GAS O2 CONTENT 11.2 ML/dl (15-23); ARTERIAL BLOOD GAS O2 SAT 92.9 % (95-98); ARTERIAL BLOOD GAS PCO2 60 mm/Hg (35-45); ARTERIAL BLOOD GAS PH 7.44 (7.35-7.45); ARTERIAL BLOOD GAS TCO2 42.6 mmol.L (22-28)
[2017-11-30] MEDS: Insulin Reg-MEDIUM-Coverage SC SCH ×4 (07:43→22:00)
[2017-11-30 07:45] LABS: ARTERIAL BLOOD GAS HCO3 40.8 mmol/L (21-28)
[2017-11-30 08:26] LABS: ALB/GLOB RATIO 1.2 (1.1-1.8); ALBUMIN 2.9 g/dL (3.0-4.8); ALT/SGPT 28 U/L (7-56); AST/SGOT 26 U/L (14-36); BLOOD UREA NITROGEN 26 mg/dL (7-21); CALCIUM 9.4 mg/dL (8.4-10.5); GFR AFRICAN-AMERICAN > 60; GFR NON-AFRICAN AMERICAN > 60
--- NOTE | 2017-11-30 08:27 | PN ---
DATE: 11/30/2017([id number]) PULMONARY NOTE SUBJECTIVE: The patient is now extubated and on BiPAP. She is mildly short of breath, but in no acute distress. PHYSICAL EXAMINATION VITAL SIGNS: Temperature is 98.2, pulse is 86, respirations 22, blood pressure 134/67. Oxygen saturation on BiPAP is 96%. HEENT: Normocephalic, atraumatic. No JVD. CARDIOVASCULAR: Systolic ejection murmur at the lower left sternal border. No S3 gallop. LUNGS: Decreased breath sounds at the bases. Less rhonchi. No wheezing. EXTREMITIES: Mild edema. No cyanosis or clubbing. Calves are nontender to palpation. GI: Abdomen is soft, nontender and nondistended. Bowel sounds are positive. SKIN: No acute rash. NEUROLOGIC: Limited at the present time. PERTINENT LABORATORY DATA: Chest x-ray was done this morning and reviewed. It is not significant changed from the previous film. Arterial blood gas was ordered for the morning - not done as of yet. IMPRESSION: 1. Respiratory failure. 2. Sepsis syndrome. 3. End-stage chronic obstructive pulmonary disease. 4. Urinary tract infection. 5. Pulmonary hypertension. 6. Coronary artery disease. PLAN: The patient is now extubated and on BiPAP. She is mildly short of breath, but in no acute distress. I did discuss the case with the night nurse at length. The night nurse stated that the patient had a pretty good night. I did review the chest x-ray as above. The chest x-ray is not significantly changed from the previous film. I will also order the arterial blood gas to be on nasal cannula this morning. These results will help us determine our BiPAP usage. On physical exam, there is less bronchospasm noted. I will continue the current nebulizer treatments and intravenous steroids for now. The patient also remains on antibiotic therapy - as per Infectious Disease. Input by Dr. Law is noted. The temperatures have now fully resolved. Repeat procalcitonin done yesterday - remains negative. However, the urine culture is positive. Clinical status of the patient is certainly improved - compared to a few days ago. However, unfortunately, the overall status/prognosis for this patient is poor. All are aware. I will discuss the above with the entire ICU team the next few moments. I will also discuss the above with Dr. Wheeler later this morning. Evgeny Briggs MD JOSE[facility]
--- NOTE | 2017-11-30 09:10 | RAD ---
PROCEDURE: Left Wrist Radiographs. HISTORY: left wrist pain COMPARISON: 11/07/2017 FINDINGS: BONES: There is an impacted fracture of the distal radius. This is unchanged JOINTS: Normal. No dislocation. SOFT TISSUES: Normal. OTHER FINDINGS: None. IMPRESSION: Impacted fracture of the distal radius unchanged
--- NOTE | 2017-11-30 09:13 | RAD ---
HISTORY: intubated COMPARISON: 11/29/2017 FINDINGS: LUNGS: No active pulmonary disease. PLEURA: No significant pleural effusion identified, no pneumothorax apparent. CARDIOVASCULAR: Normal. OSSEOUS STRUCTURES: No significant abnormalities. VISUALIZED UPPER ABDOMEN: Normal. OTHER FINDINGS: None. IMPRESSION: No active disease.
[2017-11-30] MEDS: Enoxaparin 40 mg Syringe SC SCH (09:53)
[2017-11-30] MEDS: Sildenafil 20 MG TAB PO SCH ×2 (09:59→17:11)
--- NOTE | 2017-11-30 10:14 | PN ---
DATE: SUBJECTIVE: I saw her in the Intensive Care Unit. She is on nasal cannula. She is alert and talking, very comfortable, feeling strong this morning, also hungry. This is great. Now, she is off the ventilator and off the BiPAP. She is in better spirits and wants to start physical therapy. Hopefully, this feeling will last. PHYSICAL EXAMINATION: VITAL SIGNS: She has a 98.2 temp, 83 pulse, 114/54 blood pressure, 19 respiratory rate, 97% O2 sat. HEENT: Head is atraumatic, normocephalic. HEART: Regular rate. LUNGS: Decreased breath sounds, but clear. ABDOMEN: Soft. EXTREMITIES: No edema. MEDICATIONS: She is currently on aspirin; Diprivan; doxycycline IV; DuoNebs; insulin; I added Lasix to her on a daily basis 20 mg IV, I think keeping her dry help her lungs stay dry; Lopressor; Lovenox; Merrem IV; Protonix; Pulmicort; Remeron; Revatio; Solu-Medrol, she is on 40 IV q. 8 as per Pulmonary; Tamiflu; Tylenol; vancomycin; Xanax and Zofran. LABORATORY DATA: She has a 2.5 white count; 8.7 hemoglobin, better; 28.6 hematocrit with 237 platelets. She has a 138 sodium, potassium 4.6, BUN 30, creatinine 0.7, last blood sugar was 127, AST is 20, ALT is 24, alk phos is 38, troponins are 0.03 and 0.03, total protein is 4.6, a little low. ASSESSMENT AND PLAN: She has urinary tract infection on top of everything else that is going on with her, chronic obstructive pulmonary disease, congestive heart failure, pulmonary hypertension, hypoxia, acute respiratory failure, but she is coming around hopefully with physical therapy and medications will help her. Nigel Wheeler DO
--- NOTE | 2017-11-30 13:31 | CP.PCM.PN ---
Subjective - Date & Time of Evaluation Date of Evaluation: 11/30/17 Time of Evaluation: 10:20 - Subjective Subjective: Still has mild SOB at rest but better compared to previous days and continues to be off the ventilator. No fevers overnight. Objective - Vital Signs/Intake and Output Vital Signs (last 24 hours): Temp Pulse Resp BP Pulse Ox 98.2 F 99 H 19 134/67 90 L 11/30/17 04:00 11/30/17 08:17 11/30/17 06:30 11/30/17 06:00 11/30/17 06:30 Intake and Output: 11/30/17 11/30/17 06:59 18:59 Intake Total 800 Output Total 2300 Balance -1500 - Medications Medications: Current Medications Acetaminophen (Tylenol 650 Mg Supp) 650 mg RC Q4H PRN PRN Reason: Fever >100.4 F Albuterol/Ipratropium (Duoneb 3 Mg/0.5 Mg (3 Ml) Ud) 3 ml [facility] [id number] [facility] Last Admin: 11/30/17 07:07 Dose: 3 ml Albuterol/Ipratropium (Duoneb 3 Mg/0.5 Mg (3 Ml) Ud) 3 ml IH Q2H PRN PRN Reason: Shortness of Breath Alprazolam (Xanax) 0.5 mg PO Q4 PRN; Protocol PRN Reason: Anxiety Last Admin: 11/28/17 09:33 Dose: 0.5 mg Aspirin (Aspirin Supp) 300 mg RC DAILY [facility] Last Admin: 11/29/17 10:00 Dose: 300 mg Budesonide (Pulmicort Respules) 0.5 mg [facility] [id number] [facility] Last Admin: 11/30/17 07:07 Dose: 0.5 mg Enoxaparin Sodium (Lovenox) 40 mg SC DAILY [facility] PRN Reason: Protocol Last Admin: 11/29/17 09:55 Dose: 40 mg Furosemide (Lasix) 20 mg IVP DAILY [facility] Doxycycline Hyclate 100 mg/ (Sodium Chloride) 100 mls @ 100 mls/hr IVPB Q12 JEFFERY PRN Reason: Protocol Stop: 12/06/17 11:32 Last Admin: 11/29/17 21:20 Dose: 100 mls/hr Meropenem (Merrem Iv 1 Gm Premix) 50 mls @ 100 mls/hr IVPB Q8 JEFFERY PRN Reason: Protocol Stop: 12/06/17 11:46 Last Admin: 11/30/17 05:00 Dose: 100 mls/hr Vancomycin HCl (Vancomycin 1gm) 1 gm in 250 mls @ 167 mls/hr IVPB Q12H JEFFERY PRN Reason: Protocol Last Admin: 11/30/17 05:01 Dose: 167 mls/hr Insulin Human Regular (Humulin R Med) 0 units SC ACHS JEFFERY PRN Reason: Protocol Last Admin: 11/30/17 07:43 Dose: Not Given Methylprednisolone (Solu-Medrol) 40 mg IVP Q8 [facility] Last Admin: 11/30/17 05:00 Dose: 40 mg Metoprolol Tartrate (Lopressor) 12.5 mg PO BID [facility] Last Admin: 11/29/17 17:38 Dose: 12.5 mg Mirtazapine (Remeron) 7.5 mg PO HS [facility] Last Admin: 11/29/17 21:19 Dose: 7.5 mg Ondansetron HCl (Zofran Inj) 4 mg IVP Q6H PRN PRN Reason: Nausea/Vomiting Last Admin: 11/28/17 13:41 Dose: 4 mg Oseltamivir Phosphate (Tamiflu) 30 mg PO BID [facility] PRN Reason: Protocol Stop: 12/03/17 23:16 Last Admin: 11/29/17 17:40 Dose: 30 mg Pantoprazole Sodium (Protonix Inj) 40 mg IVP DAILY [facility] Last Admin: 11/29/17 09:45 Dose: 40 mg Sildenafil Citrate (Revatio) 20 mg PO BID [facility] Last Admin: 11/29/17 17:39 Dose: 20 mg - Labs Labs: 11/30/17 06:00 11/30/17 07:55 PT 12.1 SECONDS (9.4-12.5) 11/26/17 18:00 INR 1.06 (0.93-1.08) 11/26/17 18:00 APTT 28.6 Seconds (25.1-36.5) 11/26/17 18:00 - Constitutional Appears: Chronically Ill - Head Exam Head Exam: NORMAL INSPECTION - Respiratory Exam Respiratory Exam: Decreased Breath Sounds - Cardiovascular Exam Cardiovascular Exam: +S1, +S2 - GI/Abdominal Exam GI & Abdominal Exam: Soft. absent: Tenderness Assessment and Plan - Assessment and Plan (Free Text) Plan: Assessment systemic inflammatory response syndrome, consider severe sepsis with hypoxic respiratory failure S/P VDRF, consider HCAP with acute bronchitis chronic CHF end-stage COPD pulmonary HTN CAD dyslipidemia Plan continue doxycycline and Merrem day 4 and Vancomycin day 2 repeat blood cx are negative, follow up sputum cx results reviewed CXR will continue to monitor clinically
--- NOTE | 2017-11-30 14:09 | CP.CCUPN ---
<Irving Chakraborty - Last Filed: 11/30/17 14:12> CCU Subjective - Physician Review Subjective (Free Text): Patient seen and evaluated bedside. No acute issues overnight. Patient using Bipap at night. denies any shortness of breath, chest pain, or any acute issues at this time. 11/30/17 14:06 Critical Care Time Spent (in minutes): 35 CCU Objective - Vital Signs / Intake & Output Vital Signs (Last 4 hours): Vital Signs Pulse 11/30/17 14:03 89 Intake and Output (Last 8hrs): Intake & Output 11/29/17 11/30/17 11/30/17 22:59 06:59 14:59 Intake Total 1285 800 Output Total 700 2300 Balance 585 -1500 Weight 139 lb 8 oz 139 lb 8 oz Intake: IV 1285 700 Right Antecubital 1250 700 Right Wrist 35 Oral 100 Output: Urine 700 2300 2-way Urethral 700 2300 Other: # Bowel Movements 1 - Physical Exam Head: Positive for: Atraumatic, Normocephalic Mouth: Positive for: Moist Mucous Membranes Respiratory/Chest: Positive for: Decreased Breath Sounds. Negative for: Accessory Muscle Use Cardiovascular: Positive for: Normal S1, S2 Abdomen: Negative for: Tenderness Psychiatric: Positive for: Alert, Oriented x 3 - Medications Active Medications: Active Medications Generic Name Dose Route Start Last Admin Trade Name Freq PRN Reason Stop Dose Admin Acetaminophen 650 mg 11/30/17 08:27 Tylenol 650 Mg Supp RC Q4H PRN Fever >100.4 F Albuterol/Ipratropium 3 ml 11/27/17 08:00 11/30/17 13:27 Duoneb 3 Mg/0.5 Mg (3 Ml) Ud IH 3 ml [id number] JEFFERY Administration Albuterol/Ipratropium 3 ml 11/27/17 07:08 Duoneb 3 Mg/0.5 Mg (3 Ml) Ud IH Q2H PRN Shortness of Breath Alprazolam 0.5 mg 11/26/17 22:21 11/30/17 13:52 Xanax PO 0.5 mg Q4 PRN Administration Anxiety Protocol Aspirin 300 mg 11/29/17 10:00 11/30/17 09:59 Aspirin Supp RC 300 mg DAILY JEFFERY Administration Budesonide 0.5 mg 11/27/17 08:00 11/30/17 07:07 Pulmicort Respules IH 0.5 mg [id number] JEFFERY Administration Enoxaparin Sodium 40 mg 11/27/17 11:00 11/30/17 09:53 Lovenox SC 40 mg DAILY JEFFERY Administration Protocol Furosemide 20 mg 11/30/17 10:00 11/30/17 10:02 Lasix IVP Not Given DAILY JEFFEYR Doxycycline Hyclate 100 mg/ 100 mls @ 100 mls/hr 11/27/17 11:31 11/30/17 10: 05 Sodium Chloride IVPB 12/06/17 11:32 100 mls/hr Q12 JEFFERY Administration Protocol Meropenem 50 mls @ 100 mls/hr 11/27/17 11:45 11/30/17 13:42 Merrem Iv 1 Gm Premix IVPB 12/06/17 11:46 100 mls/hr Q8 JEFFERY Administration Protocol Vancomycin HCl 1 gm in 250 mls @ 167 mls/hr 11/29/17 06:00 11/30/17 05:01 Vancomycin 1gm IVPB 167 mls/hr Q12H JEFFERY Administration Protocol Insulin Human Regular 0 units 11/28/17 16:30 11/30/17 12:18 Humulin R Med SC 1 units ACHS JEFFERY Administration Protocol Meclizine HCl 12.5 mg 11/30/17 12:33 Antivert PO BID PRN Dizziness Methylprednisolone 40 mg 11/29/17 06:00 11/30/17 13:43 Solu-Medrol IVP 40 mg Q8 JEFFERY Administration Metoprolol Tartrate 12.5 mg 11/28/17 23:45 11/30/17 09:51 Lopressor PO 12.5 mg BID JEFFERY Administration Mirtazapine 7.5 mg 11/26/17 22:30 11/29/17 21:19 Remeron PO 7.5 mg HS JEFFERY Administration Ondansetron HCl 4 mg 11/28/17 13:20 11/28/17 13:41 Zofran Inj IVP 4 mg Q6H PRN Administration Nausea/Vomiting Oseltamivir Phosphate 30 mg 11/28/17 23:15 11/30/17 09:51 Tamiflu PO 12/03/17 23:16 30 mg BID JEFFERY Administration Protocol Pantoprazole Sodium 40 mg 11/29/17 10:00 03/14/18 09:52 Protonix Inj IVP 40 mg DAILY JEFFERY Administration Sildenafil Citrate 20 mg 11/27/17 10:00 11/30/17 09:59 Revatio PO 20 mg BID JEFFERY Administration - Patient Studies Lab Studies: Microbiology Studies 11/28/17 23:00 MRSA Culture (Admit) - Final Nose MRSA NOT DETECTED 11/28/17 17:21 Blood Culture - Preliminary Blood NO GROWTH AFTER 24 HOURS 11/29/17 06:00 Gram Stain - Preliminary Trachasp 11/26/17 19:10 Urine Culture - Final Urine,Clean Catch Enterococcus Faecalis Lab Studies 11/30/17 11/30/17 11/30/17 Range/Units 07:55 07:30 06:00 WBC 3.5 L D (4.5-11.0) 10^3/ul RBC 2.85 L (3.5-6.1) 10^6/uL Hgb 8.7 L (12.0-16.0) g/dL Hct 28.6 L (36.0-48.0) % MCV 100.4 (80.0-105.0) fl MCH 30.5 (25.0-35.0) pg MCHC 30.4 L (31.0-37.0) g/dl RDW 16.1 H (11.5-14.5) % Plt Count 237 (120.0-450.0) 10^3/uL MPV 10.1 (7.0-11.0) fl Gran % 76.7 H (50.0-68.0) % Lymph % (Auto) 16.7 L (22.0-35.0) % [place] % (Auto) 6.6 H (1.0-6.0) % Eos % (Auto) 0.0 L (1.5-5.0) % Baso % (Auto) 0.0 (0.0-3.0) % Gran # 2.67 (1.4-6.5) Lymph # (Auto) 0.6 L (1.2-3.4) [place] # (Auto) 0.2 (0.1-0.6) Eos # (Auto) 0.0 (0.0-0.7) Baso # (Auto) 0.00 (0.0-2.0) K/mm3 pCO2 60 H (35-45) mm/Hg pO2 55.0 L (80-100) mm/Hg HCO3 40.8 H* (21-28) mmol/L ABG pH 7.44 (7.35-7.45) ABG Total CO2 42.6 H (22-28) mmol.L ABG O2 Saturation 92.9 L (95-98) % ABG O2 Content 11.2 L (15-23) ML/dl ABG Base Excess 14.7 H (-2.0-3.0) mmol/L ABG Hemoglobin 8.8 L (11.7-17.4) g/dL ABG Carboxyhemoglobin 2.4 H (0.5-1.5) % POC ABG HHb (Measured) 6.9 H (0-5) % ABG Methemoglobin 0.9 (0.0-3.0) % ABG O2 Capacity 12.1 L (16-24) mL/dl Hgb O2 Saturation 89.8 L (95.0-98.0) % FiO2 36.0 % Sodium 139 (132-148) mmol/L Potassium 4.1 (3.6-5.0) mmol/L Chloride 96 L (98-107) mmol/L Carbon Dioxide 37 H (21-33) mmol/L Anion Gap 11 (10-20) BUN 26 H (7-21) mg/dL Creatinine 0.6 L (0.7-1.2) mg/dl Est GFR ( Amer) > 60 Est GFR (Non-Af Amer) > 60 POC Glucose (mg/dL) (65-110) mg/dL Random Glucose 122 H (70-110) mg/dL Calcium 9.4 (8.4-10.5) mg/dL Total Bilirubin 0.4 (0.2-1.3) mg/dL AST 26 (14-36) U/L ALT 28 (7-56) U/L Alkaline Phosphatase 44 (38-126) U/L Total Protein 5.4 L (5.8-8.3) g/dL Albumin 2.9 L (3.0-4.8) g/dL Globulin 2.4 gm/dL Albumin/Globulin Ratio 1.2 (1.1-1.8) 11/29/17 11/29/17 Range/Units 22:16 15:37 WBC (4.5-11.0) 10^3/ul RBC (3.5-6.1) 10^6/uL Hgb (12.0-16.0) g/dL Hct (36.0-48.0) % MCV (80.0-105.0) fl MCH (25.0-35.0) pg MCHC (31.0-37.0) g/dl RDW (11.5-14.5) % Plt Count (120.0-450.0) 10^3/uL MPV (7.0-11.0) fl Gran % (50.0-68.0) % Lymph % (Auto) (22.0-35.0) % [place] % (Auto) (1.0-6.0) % Eos % (Auto) (1.5-5.0) % Baso % (Auto) (0.0-3.0) % Gran # (1.4-6.5) Lymph # (Auto) (1.2-3.4) [place] # (Auto) (0.1-0.6) Eos # (Auto) (0.0-0.7) Baso # (Auto) (0.0-2.0) K/mm3 pCO2 (35-45) mm/Hg pO2 (80-100) mm/Hg HCO3 (21-28) mmol/L ABG pH (7.35-7.45) ABG Total CO2 (22-28) mmol.L ABG O2 Saturation (95-98) % ABG O2 Content (15-23) ML/dl ABG Base Excess (-2.0-3.0) mmol/L ABG Hemoglobin (11.7-17.4) g/dL ABG Carboxyhemoglobin (0.5-1.5) % POC ABG HHb (Measured) (0-5) % ABG Methemoglobin (0.0-3.0) % ABG O2 Capacity (16-24) mL/dl Hgb O2 Saturation (95.0-98.0) % FiO2 % Sodium (132-148) mmol/L Potassium (3.6-5.0) mmol/L Chloride (98-107) mmol/L Carbon Dioxide (21-33) mmol/L Anion Gap (10-20) BUN (7-21) mg/dL Creatinine (0.7-1.2) mg/dl Est GFR ( Amer) Est GFR (Non-Af Amer) POC Glucose (mg/dL) 127 H 122 H (65-110) mg/dL Random Glucose (70-110) mg/dL Calcium (8.4-10.5) mg/dL Total Bilirubin (0.2-1.3) mg/dL AST (14-36) U/L ALT (7-56) U/L Alkaline Phosphatase (38-126) U/L Total Protein (5.8-8.3) g/dL Albumin (3.0-4.8) g/dL Globulin gm/dL Albumin/Globulin Ratio (1.1-1.8) Laboratory Results - last 24 hr 11/29/17 11/29/17 11/30/17 15:37 22:16 06:00 WBC 3.5 L D RBC 2.85 L Hgb 8.7 L Hct 28.6 L MCV 100.4 MCH 30.5 MCHC 30.4 L RDW 16.1 H Plt Count 237 MPV 10.1 Gran % 76.7 H Lymph % (Auto) 16.7 L [place] % (Auto) 6.6 H Eos % (Auto) 0.0 L Baso % (Auto) 0.0 Gran # 2.67 Lymph # (Auto) 0.6 L [place] # (Auto) 0.2 Eos # (Auto) 0.0 Baso # (Auto) 0.00 pCO2 pO2 HCO3 ABG pH ABG Total CO2 ABG O2 Saturation ABG O2 Content ABG Base Excess ABG Hemoglobin ABG Carboxyhemoglobin POC ABG HHb (Measured) ABG Methemoglobin ABG O2 Capacity Hgb O2 Saturation FiO2 Sodium Potassium Chloride Carbon Dioxide Anion Gap BUN Creatinine Est GFR ( Amer) Est GFR (Non-Af Amer) POC Glucose (mg/dL) 122 H 127 H Random Glucose Calcium Total Bilirubin AST ALT Alkaline Phosphatase Total Protein Albumin Globulin Albumin/Globulin Ratio 11/30/17 11/30/17 07:30 07:55 WBC RBC Hgb Hct MCV MCH MCHC RDW Plt Count MPV Gran % Lymph % (Auto) [place] % (Auto) Eos % (Auto) Baso % (Auto) Gran # Lymph # (Auto) [place] # (Auto) Eos # (Auto) Baso # (Auto) pCO2 60 H pO2 55.0 L HCO3 40.8 H* ABG pH 7.44 ABG Total CO2 42.6 H ABG O2 Saturation 92.9 L ABG O2 Content 11.2 L ABG Base Excess 14.7 H ABG Hemoglobin 8.8 L ABG Carboxyhemoglobin 2.4 H POC ABG HHb (Measured) 6.9 H ABG Methemoglobin 0.9 ABG O2 Capacity 12.1 L Hgb O2 Saturation 89.8 L FiO2 36.0 Sodium 139 Potassium 4.1 Chloride 96 L Carbon Dioxide 37 H Anion Gap 11 BUN 26 H Creatinine 0.6 L Est GFR ( Amer) > 60 Est GFR (Non-Af Amer) > 60 POC Glucose (mg/dL) Random Glucose 122 H Calcium 9.4 Total Bilirubin 0.4 AST 26 ALT 28 Alkaline Phosphatase 44 Total Protein 5.4 L Albumin 2.9 L Globulin 2.4 Albumin/Globulin Ratio 1.2 Fingerstick Blood Sugar Results: 158 Review of Systems - Constitutional Constitutional: absent: Fever, Chills - Cardiovascular Cardiovascular: absent: Chest Pain, Dyspnea - Respiratory Respiratory: absent: Cough, Dyspnea, Wheezing - Gastrointestinal Gastrointestinal: absent: Abdominal Pain, Constipation, Diarrhea, Nausea, Vomiting - Psychiatric Psychiatric: Anxiety Critical Care Progress Note - Nutrition Nutrition: Nutrition Category Date Time Status Heart Healthy Diet [DIET] Diets 11/26/17 Breakfast Ordered Assessment/Plan - Assessment and Plan (Free Text) Assessment: 82F former smoker, with PMHx CAD s/p stent, O2 dependent COPD, emphysema, pulmonary hypertension brought to the ICU for hypercapnic respiratory failure secondary to COPD exacerbation. Plan: Neuro - AAOx3 - continue to monitor status Pulm - Duoneb Q6, Q2 PRN - Budesonide, Revatio - continue abx - solu-medrol 40q8 - repeat ABG showing pH: 7.44 - bipap PRN - lasix - chest therapy - steroid taper Cardio - ASA rectal for Hx CAD s/p stent - 12.5 metoprolol bid po - strict i/o Renal - berman, strict i/o - follow BMP Endo - insulin sliding scale medium with ACHS GI - protonix PO ID - continue antibiotics and tamiflu - currently afebrile - sputum cultures pending - ID consulted, Thanh, follow recs DVT = lovenox <Litinski,Porfirio B - Last Filed: 11/30/17 16:54> CCU Objective - Vital Signs / Intake & Output Vital Signs (Last 4 hours): Vital Signs Pulse 11/30/17 14:03 89 11/30/17 14:00 94 H Intake and Output (Last 8hrs): Intake & Output 11/30/17 11/30/17 11/30/17 06:59 14:59 22:59 Intake Total 800 Output Total 2300 Balance -1500 Weight 139 lb 8 oz 139 lb 8 oz Intake: IV 700 Right Antecubital 700 Oral 100 Output: Urine 2300 2-way Urethral 2300 - Medications Active Medications: Active Medications Generic Name Dose Route Start Last Admin Trade Name Freq PRN Reason Stop Dose Admin Acetaminophen 650 mg 11/30/17 08:27 Tylenol 650 Mg Supp RC Q4H PRN Fever >100.4 F Albuterol/Ipratropium 3 ml 11/27/17 08:00 11/30/17 13:27 Duoneb 3 Mg/0.5 Mg (3 Ml) Ud IH 3 ml [id number] JEFFERY Administration Albuterol/Ipratropium 3 ml 11/27/17 07:08 Duoneb 3 Mg/0.5 Mg (3 Ml) Ud IH Q2H PRN Shortness of Breath Alprazolam 0.5 mg 11/26/17 22:21 11/30/17 13:52 Xanax PO 0.5 mg Q4 PRN Administration Anxiety Protocol Aspirin 300 mg 11/29/17 10:00 11/30/17 09:59 Aspirin Supp RC 300 mg DAILY JEFFERY Administration Budesonide 0.5 mg 11/27/17 08:00 11/30/17 07:07 Pulmicort Respules IH 0.5 mg [id number] JEFFERY Administration Enoxaparin Sodium 40 mg 11/27/17 11:00 11/30/17 09:53 Lovenox SC 40 mg DAILY JEFFERY Administration Protocol Furosemide 20 mg 11/30/17 10:00 11/30/17 10:02 Lasix IVP Not Given DAILY JEFFERY Doxycycline Hyclate 100 mg/ 100 mls @ 100 mls/hr 11/27/17 11:31 11/30/17 10: 05 Sodium Chloride IVPB 12/06/17 11:32 100 mls/hr Q12 JEFFERY Administration Protocol Meropenem 50 mls @ 100 mls/hr 11/27/17 11:45 11/30/17 13:42 Merrem Iv 1 Gm Premix IVPB 12/06/17 11:46 100 mls/hr Q8 JEFFERY Administration Protocol Vancomycin HCl 1 gm in 250 mls @ 167 mls/hr 11/29/17 06:00 11/30/17 05:01 Vancomycin 1gm IVPB 167 mls/hr Q12H JEFFERY Administration Protocol Insulin Human Regular 0 units 11/28/17 16:30 11/30/17 12:18 Humulin R Med SC 1 units ACHS JEFFERY Administration Protocol Meclizine HCl 12.5 mg 11/30/17 12:33 Antivert PO BID PRN Dizziness Methylprednisolone 40 mg 11/29/17 06:00 11/30/17 13:43 Solu-Medrol IVP 40 mg Q8 JEFFERY Administration Metoprolol Tartrate 12.5 mg 11/28/17 23:45 11/30/17 09:51 Lopressor PO 12.5 mg BID JEFFERY Administration Mirtazapine 7.5 mg 11/26/17 22:30 11/29/17 21:19 Remeron PO 7.5 mg HS JEFFERY Administration Ondansetron HCl 4 mg 11/28/17 13:20 11/28/17 13:41 Zofran Inj IVP 4 mg Q6H PRN Administration Nausea/Vomiting Oseltamivir Phosphate 30 mg 11/28/17 23:15 11/30/17 09:51 Tamiflu PO 12/03/17 23:16 30 mg BID JEFFERY Administration Protocol Pantoprazole Sodium 40 mg 11/29/17 10:00 11/30/17 09:52 Protonix Inj IVP 40 mg DAILY JEFFERY Administration Sildenafil Citrate 20 mg 11/27/17 10:00 11/30/17 09:59 Revatio PO 20 mg BID JEFFERY Administration - Patient Studies Lab Studies: Microbiology Studies 11/28/17 23:00 MRSA Culture (Admit) - Final Nose MRSA NOT DETECTED 11/28/17 17:21 Blood Culture - Preliminary Blood NO GROWTH AFTER 24 HOURS 11/29/17 06:00 Gram Stain - Preliminary Trachasp Lab Studies 11/30/17 11/30/17 11/30/17 Range/Units 07:55 07:30 06:00 WBC 3.5 L D (4.5-11.0) 10^3/ul RBC 2.85 L (3.5-6.1) 10^6/uL Hgb 8.7 L (12.0-16.0) g/dL Hct 28.6 L (36.0-48.0) % MCV 100.4 (80.0-105.0) fl MCH 30.5 (25.0-35.0) pg MCHC 30.4 L (31.0-37.0) g/dl RDW 16.1 H (11.5-14.5) % Plt Count 237 (120.0-450.0) 10^3/uL MPV 10.1 (7.0-11.0) fl Gran % 76.7 H (50.0-68.0) % Lymph % (Auto) 16.7 L (22.0-35.0) % [place] % (Auto) 6.6 H (1.0-6.0) % Eos % (Auto) 0.0 L (1.5-5.0) % Baso % (Auto) 0.0 (0.0-3.0) % Gran # 2.67 (1.4-6.5) Lymph # (Auto) 0.6 L (1.2-3.4) [place] # (Auto) 0.2 (0.1-0.6) Eos # (Auto) 0.0 (0.0-0.7) Baso # (Auto) 0.00 (0.0-2.0) K/mm3 pCO2 60 H (35-45) mm/Hg pO2 55.0 L (80-100) mm/Hg HCO3 40.8 H* (21-28) mmol/L ABG pH 7.44 (7.35-7.45) ABG Total CO2 42.6 H (22-28) mmol.L ABG O2 Saturation 92.9 L (95-98) % ABG O2 Content 11.2 L (15-23) ML/dl ABG Base Excess 14.7 H (-2.0-3.0) mmol/L ABG Hemoglobin 8.8 L (11.7-17.4) g/dL ABG Carboxyhemoglobin 2.4 H (0.5-1.5) % POC ABG HHb (Measured) 6.9 H (0-5) % ABG Methemoglobin 0.9 (0.0-3.0) % ABG O2 Capacity 12.1 L (16-24) mL/dl Hgb O2 Saturation 89.8 L (95.0-98.0) % FiO2 36.0 % Sodium 139 (132-148) mmol/L Potassium 4.1 (3.6-5.0) mmol/L Chloride 96 L (98-107) mmol/L Carbon Dioxide 37 H (21-33) mmol/L Anion Gap 11 (10-20) BUN 26 H (7-21) mg/dL Creatinine 0.6 L (0.7-1.2) mg/dl Est GFR ( Amer) > 60 Est GFR (Non-Af Amer) > 60 POC Glucose (mg/dL) (65-110) mg/dL Random Glucose 122 H (70-110) mg/dL Calcium 9.4 (8.4-10.5) mg/dL Total Bilirubin 0.4 (0.2-1.3) mg/dL AST 26 (14-36) U/L ALT 28 (7-56) U/L Alkaline Phosphatase 44 (38-126) U/L Total Protein 5.4 L (5.8-8.3) g/dL Albumin 2.9 L (3.0-4.8) g/dL Globulin 2.4 gm/dL Albumin/Globulin Ratio 1.2 (1.1-1.8) //18 Range/Units 22:16 WBC (4.5-11.0) 10^3/ul RBC (3.5-6.1) 10^6/uL Hgb (12.0-16.0) g/dL Hct (36.0-48.0) % MCV (80.0-105.0) fl MCH (25.0-35.0) pg MCHC (31.0-37.0) g/dl RDW (11.5-14.5) % Plt Count (120.0-450.0) 10^3/uL MPV (7.0-11.0) fl Gran % (50.0-68.0) % Lymph % (Auto) (22.0-35.0) % [place] % (Auto) (1.0-6.0) % Eos % (Auto) (1.5-5.0) % Baso % (Auto) (0.0-3.0) % Gran # (1.4-6.5) Lymph # (Auto) (1.2-3.4) [place] # (Auto) (0.1-0.6) Eos # (Auto) (0.0-0.7) Baso # (Auto) (0.0-2.0) K/mm3 pCO2 (35-45) mm/Hg pO2 (80-100) mm/Hg HCO3 (21-28) mmol/L ABG pH (7.35-7.45) ABG Total CO2 (22-28) mmol.L ABG O2 Saturation (95-98) % ABG O2 Content (15-23) ML/dl ABG Base Excess (-2.0-3.0) mmol/L ABG Hemoglobin (11.7-17.4) g/dL ABG Carboxyhemoglobin (0.5-1.5) % POC ABG HHb (Measured) (0-5) % ABG Methemoglobin (0.0-3.0) % ABG O2 Capacity (16-24) mL/dl Hgb O2 Saturation (95.0-98.0) % FiO2 % Sodium (132-148) mmol/L Potassium (3.6-5.0) mmol/L Chloride (98-107) mmol/L Carbon Dioxide (21-33) mmol/L Anion Gap (10-20) BUN (7-21) mg/dL Creatinine (0.7-1.2) mg/dl Est GFR ( Amer) Est GFR (Non-Af Amer) POC Glucose (mg/dL) 127 H (65-110) mg/dL Random Glucose (70-110) mg/dL Calcium (8.4-10.5) mg/dL Total Bilirubin (0.2-1.3) mg/dL AST (14-36) U/L ALT (7-56) U/L Alkaline Phosphatase (38-126) U/L Total Protein (5.8-8.3) g/dL Albumin (3.0-4.8) g/dL Globulin gm/dL Albumin/Globulin Ratio (1.1-1.8) Laboratory Results - last 24 hr 11/29/17 11/30/17 11/30/17 22:16 06:00 07:30 WBC 3.5 L D RBC 2.85 L Hgb 8.7 L Hct 28.6 L MCV 100.4 MCH 30.5 MCHC 30.4 L RDW 16.1 H Plt Count 237 MPV 10.1 Gran % 76.7 H Lymph % (Auto) 16.7 L [place] % (Auto) 6.6 H Eos % (Auto) 0.0 L Baso % (Auto) 0.0 Gran # 2.67 Lymph # (Auto) 0.6 L [place] # (Auto) 0.2 Eos # (Auto) 0.0 Baso # (Auto) 0.00 pCO2 60 H pO2 55.0 L HCO3 40.8 H* ABG pH 7.44 ABG Total CO2 42.6 H ABG O2 Saturation 92.9 L ABG O2 Content 11.2 L ABG Base Excess 14.7 H ABG Hemoglobin 8.8 L ABG Carboxyhemoglobin 2.4 H POC ABG HHb (Measured) 6.9 H ABG Methemoglobin 0.9 ABG O2 Capacity 12.1 L Hgb O2 Saturation 89.8 L FiO2 36.0 Sodium Potassium Chloride Carbon Dioxide Anion Gap BUN Creatinine Est GFR ( Amer) Est GFR (Non-Af Amer) POC Glucose (mg/dL) 127 H Random Glucose Calcium Total Bilirubin AST ALT Alkaline Phosphatase Total Protein Albumin Globulin Albumin/Globulin Ratio 11/30/17 07:55 WBC RBC Hgb Hct MCV MCH MCHC RDW Plt Count MPV Gran % Lymph % (Auto) [place] % (Auto) Eos % (Auto) Baso % (Auto) Gran # Lymph # (Auto) [place] # (Auto) Eos # (Auto) Baso # (Auto) pCO2 pO2 HCO3 ABG pH ABG Total CO2 ABG O2 Saturation ABG O2 Content ABG Base Excess ABG Hemoglobin ABG Carboxyhemoglobin POC ABG HHb (Measured) ABG Methemoglobin ABG O2 Capacity Hgb O2 Saturation FiO2 Sodium 139 Potassium 4.1 Chloride 96 L Carbon Dioxide 37 H Anion Gap 11 BUN 26 H Creatinine 0.6 L Est GFR ( Amer) > 60 Est GFR (Non-Af Amer) > 60 POC Glucose (mg/dL) Random Glucose 122 H Calcium 9.4 Total Bilirubin 0.4 AST 26 ALT 28 Alkaline Phosphatase 44 Total Protein 5.4 L Albumin 2.9 L Globulin 2.4 Albumin/Globulin Ratio 1.2 Critical Care Progress Note - Nutrition Nutrition: Nutrition Category Date Time Status Heart Healthy Diet [DIET] Diets 11/26/17 Breakfast Ordered Attending/Attestation - Attestation I have personally seen and examined this patient.: Yes I have fully participated in the care of the patient.: Yes I have reviewed all pertinent clinical information: Yes Notes (Text): 11/30/17 16:50 82 yo with HCRF requiring intubation, now successfully extubated and weaned off BPAP to NC. Tolerated oral nutrition well. alert awake and oriented x 3, protecting airways. cont nebs, steroid taper, abx, oob to chair, PT, pulm rehab. dvt/gi prophylaxis.
--- NOTE | 2017-11-30 18:15 | PN ---
DATE: 11/30/2017 CARDIOLOGY FOLLOWUP SUBJECTIVE: The patient remains on a CPAP. OBJECTIVE: VITAL SIGNS: Blood pressure is 119/82, the heart rate in the 80s. NECK: Negative JVD. LUNGS: Bilateral rhonchi without wheezing. HEART: Reveals S1, S2. EXTREMITIES: Without edema. LABORATORY DATA: BUN and creatinine unremarkable. Potassium is 4.1. Hemoglobin is 8.7. IMPRESSION: 1. Respiratory failure. 2. Severe chronic obstructive pulmonary disease. 3. Pulmonary retention. 4. Stable angina. 5. Coronary artery disease. Given these findings, the patient is doing better. She remains off the ventilator. Her cardiac status is stable. Harrison Echavarria MD
[2017-11-30] MEDS ORDERED: Alum-Mag Hydrox-Simethicone Susp (30 mL) PO PRN (23:01)
[2017-12-01] MEDS: Albuterol-Ipratrop 3 mg / 0.5 (3 ml) UD IH SCH ×4 (02:53→19:57)
[2017-12-01] MEDS: Meropenem IV 1 gm in NS 50 ML IVPB SCH ×3 (05:20→22:08)
[2017-12-01] MEDS: MethylPREDNISolone 40 mg Vial IVP SCH ×3 (05:20→22:11)
[2017-12-01] MEDS: Vancomycin 1gm in NS 250ml 1 GM/250 ML BAG IVPB SCH ×2 (05:21→17:17)
[2017-12-01 06:44] LABS: ARTERIAL BLOOD GAS HCO3 39.3 mmol/L (21-28); ARTERIAL BLOOD GAS HEMOGLOBIN 8.8 g/dL (11.7-17.4); ARTERIAL BLOOD GAS O2 CAPACITY 12.1 mL/dl (16-24); ARTERIAL BLOOD GAS O2 CONTENT 11.2 ML/dl (15-23); ARTERIAL BLOOD GAS O2 SAT 92.5 % (95-98); ARTERIAL BLOOD GAS PCO2 62 mm/Hg (35-45); ARTERIAL BLOOD GAS PH 7.41 (7.35-7.45); ARTERIAL BLOOD GAS TCO2 41.2 mmol.L (22-28)
[2017-12-01] MEDS: Budesonide 0.5 mg/2 ml Inhal Susp UD IH SCH ×2 (07:07→19:57)
[2017-12-01 07:19] LABS: BASO # 0.01 K/mm3 (0.0-2.0); BASO % 0.2 % (0.0-3.0); GRAN # 3.52 (1.4-6.5); GRAN % 77.1 % (50.0-68.0); HEMOGLOBIN 9.5 g/dL (12.0-16.0); LYMPH # 0.6 (1.2-3.4); LYMPH % 13.3 % (22.0-35.0); MEAN CELL VOLUME 99.7 fl (80.0-105.0); MEAN CORPUSCULAR HEMOGLOBIN 29.7 pg (25.0-35.0); MEAN CORPUSCULAR HGB CONC 29.8 g/dl (31.0-37.0); MEAN PLATELET VOLUME 10.5 fl (7.0-11.0); MONO # 0.4 (0.1-0.6); MONO % 9.4 % (1.0-6.0); RBC 3.2 10^6/uL (3.5-6.1); RED CELL DISTRIBUTION WIDTH 16.4 % (11.5-14.5); WHITE BLOOD COUNT 4.6 10^3/ul (4.5-11.0)
[2017-12-01 07:44] LABS: ALB/GLOB RATIO 1.2 (1.1-1.8); ALT/SGPT 32 U/L (7-56); AST/SGOT 25 U/L (14-36); BLOOD UREA NITROGEN 33 mg/dL (7-21); CALCIUM 9.5 mg/dL (8.4-10.5); GFR AFRICAN-AMERICAN > 60; GFR NON-AFRICAN AMERICAN > 60
--- NOTE | 2017-12-01 08:39 | CON ---
DATE: 11/30/2017 ORTHOPEDIC CONSULT HISTORY OF PRESENT ILLNESS: This is an 82-year-old female with past history of having her fractured left distal radius approximately 2 months ago, which treated conservatively and later collapsed and just reduced it to the point where it looks more functional. X-rays done yesterday, which was 11/29/2017 shows it could be fully healed with callus and she does not need the splint any more for immobilization. I told her to do range of motion exercises and I have therapy work on strengthening exercises. The fracture looks fully healed, she does not need any more follow up she hurts herself again. FINAL DIAGNOSES: Healed fracture of left distal radius in functional position. Tal Heaton DO
--- NOTE | 2017-12-01 08:39 | RAD ---
HISTORY: intubated COMPARISON: 11/30/2017 FINDINGS: LUNGS: No active pulmonary disease. PLEURA: No significant pleural effusion identified, no pneumothorax apparent. CARDIOVASCULAR: Normal. OSSEOUS STRUCTURES: No significant abnormalities. VISUALIZED UPPER ABDOMEN: Normal. OTHER FINDINGS: None. IMPRESSION: No active disease.
--- NOTE | 2017-12-01 08:50 | PN ---
DATE: 12/01/2017 PULMONARY NOTE SUBJECTIVE: The patient is currently on nasal cannula. She is mildly short of breath, but in no acute distress. PHYSICAL EXAMINATION: VITAL SIGNS: Temperature is 98.2, pulse is 82, respirations 22, blood pressure 119/65. Last oxygen saturation measured on BiPAP - 94%. HEENT: Normocephalic, atraumatic. No JVD. CARDIOVASCULAR: Systolic ejection murmur at the lower left sternal border. No S3 gallop. LUNGS: Decreased breath sounds at the bases. Less rhonchi. No wheezing. EXTREMITIES: Mild edema. No cyanosis, no clubbing. Calves are nontender to palpation. GASTROINTESTINAL: Abdomen is soft, nontender and nondistended. Bowel sounds are positive. SKIN: No acute rash. NEUROLOGIC: Exam limited at the present time. PERTINENT LABORATORY DATA: Chest x-ray was done this morning and reviewed. It is not significantly changed from the previous film. Arterial blood gas was done on nasal cannula yesterday. Results are: PH 7.44, pCO2 60, pO2 of 55. Repeat a.m. arterial blood gas - pending. IMPRESSION: 1. Respiratory failure. 2. Sepsis syndrome. 3. End-stage chronic obstructive pulmonary disease. 4. Urinary tract infection. 5. Pulmonary hypertension. 6. Coronary artery disease. PLAN: Patient remains extubated, and is now on nasal cannula. She is mildly short of breath, but in no acute distress. She does state to feeling better overall. She did wear her BiPAP throughout the night. I discussed the case with the night nurse at length. The night nurse stated that the patient had a pretty good night. I did review the chest x-ray as above. The chest x-ray is not significantly changed from the previous film. As above, there is a repeat arterial blood gas pending. The last arterial blood gas revealed normalization of the pH, with a significant alveolar-arterial gradient. On physical exam, there is less bronchospasm noted. I will continue the current nebulizer treatments and intravenous steroids (as per the ICU team) for now. The patient also remains on Revatio - for her pulmonary hypertension. I would continue with the antibiotic coverage as per Infectious Disease. Input by Dr. Law is noted. The temperatures have now fully resolved. Clinical status of the patient is certainly improved - compared to a few days ago. However, unfortunately, the future status/prognosis for this patient remains poor. All are aware. I will discuss the above with the entire ICU team in the next few moments. I will also discuss the above with Dr. Wheeler later this morning. Evgeny Briggs MD MTDOfelia
[2017-12-01] MEDS: Insulin Reg-MEDIUM-Coverage SC SCH ×4 (09:44→22:12)
[2017-12-01] MEDS: Sildenafil 20 MG TAB PO SCH ×2 (10:01→17:22)
--- NOTE | 2017-12-01 11:10 | CARD ---
APPROVED REPORT EKG Measurement Heart [id number] <Conclusion> Normal sinus rhythm RVCD Probably no change
--- NOTE | 2017-12-01 12:14 | PN ---
DATE: 12/01/2017 CARDIOLOGY FOLLOWUP SUBJECTIVE: The patient is awake, alert, breathing much improved. PHYSICAL EXAMINATION: VITAL SIGNS: The blood pressure is 148/72, the heart rate is in the 80s. Pulse oximetry is 94%. NECK: Negative JVD. LUNGS: Without rales. HEART: Reveals S1, S2. EXTREMITIES: Without edema. LABORATORY DATA: Hemoglobin is 9.5. Chemistries: Glucose is 132. BUN and creatinine is unchanged. IMPRESSION: 1. Exacerbation of chronic obstructive pulmonary disease. 2. Pulmonary hypertension. 3. Diabetes mellitus. 4. Stable angina. 5. History of coronary artery disease. 6. History of percutaneous transluminal coronary angioplasty and stent in the past. PLAN: Given these findings, the patient's breathing is much improved. We will get the patient out of bed today and begin mobilizing her. Harrison Echavarria MD
[2017-12-01] MEDS: Enoxaparin 40 mg Syringe SC SCH (12:32)
--- NOTE | 2017-12-01 14:04 | PN ---
DATE: SUBJECTIVE: I saw her in the Intensive Care Unit. She is off the ventilator. She is off the BiPAP. She is on a little bit of nasal oxygen. She is resting comfortably in bed. She states, maybe she will get out of bed today. She is eating a little bit. She is on Antivert, aspirin, doxycycline, DuoNebs, insulin, Lopressor, Lovenox, Merrem IV, Protonix, Pulmicort, Remeron, Revatio, Solu-Medrol 40 mg q.8 h., Tamiflu, Tylenol, vancomycin IV, Xanax and Zofran. OBJECTIVE VITAL SIGNS: Temperature 98.4, pulse 96, blood pressure 130/64, respiratory rate 15, and O2 saturation. HEENT: Head is atraumatic, normocephalic. HEART: Regular rate. LUNGS: Decreased breath sounds bilaterally, but clear. ABDOMEN: Soft. EXTREMITIES: No edema. LABORATORY DATA: She has a 4.6 white count, 9.5 hemoglobin, 31.9 hematocrit with 271,000 platelets. Sodium 142, potassium 4.2, BUN 33, creatinine 0.6, GFR greater than 60, sugar is 132, calcium is 9.5, total bilirubin is 0.3. AST is 25, ALT 32, alkaline phosphatase 45, total protein is 5.5. ASSESSMENT AND PLAN: She is being seen by Cardio, drier belt conveyor, Infectious Disease, Pulmonary. She has respiratory failure, severe chronic obstructive pulmonary disease, pulmonary retention, stable angina, coronary artery disease. Continue aggressive ICU care, get out of bed to chair, physical therapy. Nigel Wheeler DO [facility]
--- NOTE | 2017-12-01 15:03 | CP.PCM.PN ---
Subjective - Date & Time of Evaluation Date of Evaluation: 12/01/17 Time of Evaluation: 09:50 - Subjective Subjective: Patient is breathing a little better today, no fevers, still with cough but a little less. Objective - Vital Signs/Intake and Output Vital Signs (last 24 hours): Temp Pulse Resp BP Pulse Ox 98.2 F 73 21 148/72 90 L 12/01/17 03:46 12/01/17 06:30 12/01/17 06:30 12/01/17 06:01 12/01/17 06:30 Intake and Output: 12/01/17 12/01/17 06:59 18:59 Intake Total 1425 Output Total 1650 Balance -225 - Medications Medications: Current Medications Acetaminophen (Tylenol 650 Mg Supp) 650 mg RC Q4H PRN PRN Reason: Fever >100.4 F Albuterol/Ipratropium (Duoneb 3 Mg/0.5 Mg (3 Ml) Ud) 3 ml IH [id number] [facility] Last Admin: 12/01/17 07:06 Dose: 3 ml Albuterol/Ipratropium (Duoneb 3 Mg/0.5 Mg (3 Ml) Ud) 3 ml IH Q2H PRN PRN Reason: Shortness of Breath Alprazolam (Xanax) 0.5 mg PO Q4 PRN; Protocol PRN Reason: Anxiety Last Admin: 11/30/17 13:52 Dose: 0.5 mg Aspirin (Aspirin Supp) 300 mg RC DAILY [facility] Last Admin: 11/30/17 09:59 Dose: 300 mg Budesonide (Pulmicort Respules) 0.5 mg IH [id number] [facility] Last Admin: 12/01/17 07:07 Dose: 0.5 mg Enoxaparin Sodium (Lovenox) 40 mg SC DAILY [facility] PRN Reason: Protocol Last Admin: 11/30/17 09:53 Dose: 40 mg Furosemide (Lasix) 20 mg IVP DAILY [facility] Last Admin: 11/30/17 10:02 Dose: Not Given Doxycycline Hyclate 100 mg/ (Sodium Chloride) 100 mls @ 100 mls/hr IVPB Q12 [facility] PRN Reason: Protocol Stop: 12/06/17 11:32 Last Admin: 11/30/17 21:24 Dose: 100 mls/hr Meropenem (Merrem Iv 1 Gm Premix) 50 mls @ 100 mls/hr IVPB Q8 [facility] PRN Reason: Protocol Stop: 12/06/17 11:46 Last Admin: 12/01/17 05:20 Dose: 100 mls/hr Vancomycin HCl (Vancomycin 1gm) 1 gm in 250 mls @ 167 mls/hr IVPB Q12H [facility] PRN Reason: Protocol Last Admin: 12/01/17 05:21 Dose: 167 mls/hr Insulin Human Regular (Humulin R Med) 0 units SC ACHS [facility] PRN Reason: Protocol Last Admin: 11/30/17 22:00 Dose: Not Given Meclizine HCl (Antivert) 12.5 mg PO BID PRN PRN Reason: Dizziness Methylprednisolone (Solu-Medrol) 40 mg IVP Q8 [facility] Last Admin: 12/01/17 05:20 Dose: 40 mg Metoprolol Tartrate (Lopressor) 12.5 mg PO BID [facility] Last Admin: 11/30/17 17:08 Dose: 12.5 mg Mirtazapine (Remeron) 7.5 mg PO HS [facility] Last Admin: 11/30/17 21:23 Dose: 7.5 mg Ondansetron HCl (Zofran Inj) 4 mg IVP Q6H PRN PRN Reason: Nausea/Vomiting Last Admin: 11/28/17 13:41 Dose: 4 mg Oseltamivir Phosphate (Tamiflu) 30 mg PO BID [facility] PRN Reason: Protocol Stop: 12/03/17 23:16 Last Admin: 11/30/17 17:11 Dose: 30 mg Pantoprazole Sodium (Protonix Inj) 40 mg IVP DAILY [facility] Last Admin: 11/30/17 09:52 Dose: 40 mg Sildenafil Citrate (Revatio) 20 mg PO BID [facility] Last Admin: 11/30/17 17:11 Dose: 20 mg - Labs Labs: 12/01/17 05:50 12/01/17 05:50 PT 12.1 SECONDS (9.4-12.5) 11/26/17 18:00 INR 1.06 (0.93-1.08) 11/26/17 18:00 APTT 28.6 Seconds (25.1-36.5) 11/26/17 18:00 - Constitutional Appears: Chronically Ill - Head Exam Head Exam: NORMAL INSPECTION - Neck Exam Neck Exam: absent: Lymphadenopathy, Meningismus - Respiratory Exam Respiratory Exam: Decreased Breath Sounds - Cardiovascular Exam Cardiovascular Exam: +S1, +S2 - GI/Abdominal Exam GI & Abdominal Exam: Soft. absent: Tenderness Assessment and Plan - Assessment and Plan (Free Text) Plan: Assessment systemic inflammatory response syndrome, consider severe sepsis with hypoxic respiratory failure S/P VDRF, consider HCAP with acute bronchitis chronic CHF end-stage COPD pulmonary HTN CAD dyslipidemia Plan continue doxycycline and Merrem day 5 and Vancomycin day 3 repeat blood cx are negative, follow up sputum cx results reviewed CXR will continue to monitor clinically
[2017-12-02] MEDS: Albuterol-Ipratrop 3 mg / 0.5 (3 ml) UD IH SCH ×4 (01:03→19:46)
[2017-12-02] MEDS: MethylPREDNISolone 40 mg Vial IVP SCH ×3 (05:39→21:50)
[2017-12-02] MEDS: Vancomycin 1gm in NS 250ml 1 GM/250 ML BAG IVPB SCH ×2 (05:41→18:30)
[2017-12-02] MEDS: Meropenem IV 1 gm in NS 50 ML IVPB SCH ×2 (05:43→21:51)
[2017-12-02 05:53] LABS: ARTERIAL BLOOD GAS HEMOGLOBIN 9.3 g/dL (11.7-17.4); ARTERIAL BLOOD GAS O2 CAPACITY 12.8 mL/dl (16-24); ARTERIAL BLOOD GAS O2 CONTENT 12.1 ML/dl (15-23); ARTERIAL BLOOD GAS O2 SAT 94.7 % (95-98); ARTERIAL BLOOD GAS PCO2 63 mm/Hg (35-45); ARTERIAL BLOOD GAS PH 7.45 (7.35-7.45); ARTERIAL BLOOD GAS TCO2 45.7 mmol.L (22-28)
[2017-12-02 05:58] LABS: ARTERIAL BLOOD GAS HCO3 43.8 mmol/L (21-28)
[2017-12-02] MEDS: Budesonide 0.5 mg/2 ml Inhal Susp UD IH SCH ×2 (07:25→19:45)
[2017-12-02 07:26] LABS: BASO # 0.01 K/mm3 (0.0-2.0); BASO % 0.2 % (0.0-3.0); GRAN # 3.49 (1.4-6.5); GRAN % 79.7 % (50.0-68.0); HEMOGLOBIN 9.8 g/dL (12.0-16.0); LYMPH # 0.7 (1.2-3.4); LYMPH % 15.1 % (22.0-35.0); MEAN CELL VOLUME 98.2 fl (80.0-105.0); MEAN CORPUSCULAR HEMOGLOBIN 29.8 pg (25.0-35.0); MEAN CORPUSCULAR HGB CONC 30.3 g/dl (31.0-37.0); MEAN PLATELET VOLUME 10.4 fl (7.0-11.0); MONO # 0.2 (0.1-0.6); RBC 3.29 10^6/uL (3.5-6.1); RED CELL DISTRIBUTION WIDTH 16.3 % (11.5-14.5); WHITE BLOOD COUNT 4.4 10^3/ul (4.5-11.0)
[2017-12-02 07:52] LABS: ALB/GLOB RATIO 1.2 (1.1-1.8); ALBUMIN 2.7 g/dL (3.0-4.8); ALT/SGPT 38 U/L (7-56); AST/SGOT 23 U/L (14-36); BLOOD UREA NITROGEN 41 mg/dL (7-21); CALCIUM 9.3 mg/dL (8.4-10.5); GFR AFRICAN-AMERICAN > 60; GFR NON-AFRICAN AMERICAN > 60
[2017-12-02] MEDS: Insulin Reg-MEDIUM-Coverage SC SCH ×4 (08:49→22:49)
[2017-12-02] MEDS: Sildenafil 20 MG TAB PO SCH ×2 (09:11→18:29)
[2017-12-02] MEDS: Enoxaparin 40 mg Syringe SC SCH (09:12)
--- NOTE | 2017-12-02 09:40 | PN ---
DATE: SUBJECTIVE: I saw her in the Intensive Care Unit. She is a little bit tired and weak. On oxygen. She is breathing a little bit better. Still with a cough. She got out of bed, took 2 steps yesterday. Sat in a chair for about 20 minutes or so. She is very weak at this time, but she is off the ventilator, which is great. PHYSICAL EXAMINATION: VITAL SIGNS: She has a 97.9 temp, 93 pulse, 109/52 blood pressure, 96% O2 sat on nasal cannula. HEENT: Head is atraumatic, normocephalic. HEART: Regular rate. LUNGS: Decreased breath sounds bilaterally with occasional wheeze that changes with cough. ABDOMEN: Soft. EXTREMITIES: Have no edema. She is weak. She is off the ventilator. MEDICATIONS: She is currently on Antivert; aspirin; doxycycline IV; DuoNebs; Lasix; Lopressor; Lovenox; Merrem IV; Protonix; Pulmicort; Remeron; Revatio; Solu-Medrol sort of 40, but down to q. 12, not q. 8 anymore; Tamiflu; Tylenol; vancomycin IV, Xanax and Zofran. LABORATORY DATA: She has a 141 sodium, potassium 4.7, BUN 14 with creatinine 0.6, GFR is greater than 60, sugar is 122, calcium is 9.3, total bili is 0.3, AST is 23, ALT is 38, alk phos 44, total protein is 5. White count is 4.4, hemoglobin 9.8, hematocrit 32.3, platelets of 257. ASSESSMENT AND PLAN: She is being seen by multiple doctors, Infectious Disease, Cardiology, Pulmonary, the business intelligence etl developer, Orthopedics. She is having a very rough stay. She has had respiratory failure, sepsis syndrome, end-stage chronic obstructive pulmonary disease, urinary tract infection, pulmonary hypertension, coronary artery disease. I will continue with aggressive treatment and care. I do not know how many more days she has left at subacute rehab, but that is probably where I would recommend and try again to get her home after that. So once we deemed that she is medically, I will get her to subacute rehab. We will check her labs tomorrow. Nigel Wheeler DO [facility] # [id number]
--- NOTE | 2017-12-02 10:06 | RAD ---
HISTORY: intubated COMPARISON: 12/01/2017 FINDINGS: LUNGS: No active pulmonary disease. PLEURA: No significant pleural effusion identified, no pneumothorax apparent. CARDIOVASCULAR: Normal. OSSEOUS STRUCTURES: No significant abnormalities. VISUALIZED UPPER ABDOMEN: Normal. OTHER FINDINGS: None. IMPRESSION: No active disease.
[2017-12-02] MEDS: Pantoprazole 40 mg EC Tab PO SCH (10:14)
[2017-12-02] MEDS: Albuterol-Ipratrop 3 mg / 0.5 (3 ml) UD IH PRN ×2 (11:00→16:05)
--- NOTE | 2017-12-02 11:27 | PN ---
DATE: 12/02/2017(635am--725am) PULMONARY NOTE SUBJECTIVE: The patient appears comfortable this morning. She is not short of breath at rest. PHYSICAL EXAMINATION: VITAL SIGNS: Temperature is 97.8, pulse is 92, respirations 18/20, blood pressure 107/58. Oxygen saturation on BiPAP is 95%. HEENT: Normocephalic, atraumatic. No JVD. CARDIOVASCULAR: Systolic ejection murmur at the lower left sternal border. No S3 gallop. LUNGS: Decreased breath sounds at the bases. Minimal/less rhonchi. No wheezing. EXTREMITIES: Mild edema. No cyanosis. No clubbing. Calves are nontender to palpation. GI: Abdomen is soft, nontender and nondistended. Bowel sounds are positive. SKIN: No acute rash. NEUROLOGIC: Limited at the present time. PERTINENT LABORATORY DATA: Chest x-ray was done this morning and reviewed. It is not significantly changed from the previous film. Arterial blood gas was also done on BiPAP. Results are: PH 7.45, pCO2 of 63, pO2 of 64. IMPRESSION: 1. Respiratory failure. 2. Sepsis syndrome. 3. End-stage chronic obstructive pulmonary disease. 4. Urinary tract infection. 5. Pulmonary hypertension. 6. Coronary artery disease. PLAN: The patient remains extubated. She is currently on nasal cannula. She appears comfortable. She is not short of breath at rest. She does appear more awake and alert. On physical exam, there is certainly less bronchospasm noted. I will continue with the current nebulizer treatments and decrease the intravenous steroids this morning. I will also continue with the Revatio - for her pulmonary hypertension. I did review the chest x-ray as above. The chest x-ray shows no significant change from the previous films. I have also reviewed the arterial blood gas. The arterial blood gas reveals normalization of the pH with a persistent moderate alveolar-arterial gradient. The patient does go on nasal cannula during the day. I would continue with the antibiotic coverage as per Infectious Disease. Input by Dr. Law is noted. The temperatures have fully resolved. Input by Dr. Echavarria (Cardiology) is also noted. Clinical status of the patient is certainly improved - compared to a few days ago. However, again, unfortunately, the future status/prognosis for this patient remains poor. I will discuss the above with the entire ICU team in the next few moments. I will also discuss the above with Dr. Wheeler later this morning. Evgeny Briggs MD [facility]
--- NOTE | 2017-12-02 13:45 | CP.PCM.PN ---
Subjective - Date & Time of Evaluation Date of Evaluation: 12/02/17 Time of Evaluation: 13:36 - Subjective Subjective: House doc call for chest pain This is an 82yo female with past medical history of HTN, COPD, CAD here for UTI. Patient was complaining of chest pain. It was on the L side and hurt upon palpation. It does not radiate without any numbness/tingling, shortness of breath, nausea/vomiting/diarrhea, fever or chills. Patient was given Tylenol for pain prior to evaluation and states her pain has improved. EKG was done which showed NSR. She was seen and evaluated at bedside. She was having pain in between her ribs upon palpation. Chest pain most likely secondary to costochondritis - Will follow troponin - EKG was within normal limits - Continue tylenol for pain - PMD, Dr. Wheeler was notified. Pb Hernandez PGY2 Objective - Vital Signs/Intake and Output Vital Signs (last 24 hours): Temp Pulse Resp BP Pulse Ox 97.8 F 70 19 135/80 94 L 12/01/17 20:00 12/02/17 09:12 12/01/17 18:00 12/02/17 09:10 12/01/17 18:00 Intake and Output: 12/02/17 12/02/17 06:59 18:59 Intake Total 1250 Balance 1250 - Medications Medications: Current Medications Acetaminophen (Tylenol 650 Mg Supp) 650 mg RC Q4H PRN PRN Reason: Fever >100.4 F Acetaminophen (Tylenol 325mg Tab) 650 mg PO Q4H PRN PRN Reason: Pain, moderate (4-7) Last Admin: 12/02/17 12:11 Dose: 650 mg Albuterol/Ipratropium (Duoneb 3 Mg/0.5 Mg (3 Ml) Ud) 3 ml IH [id number] [facility] Last Admin: 12/02/17 07:25 Dose: 3 ml Albuterol/Ipratropium (Duoneb 3 Mg/0.5 Mg (3 Ml) Ud) 3 ml IH Q2H PRN PRN Reason: Shortness of Breath Alprazolam (Xanax) 0.5 mg PO Q4 PRN; Protocol PRN Reason: Anxiety Last Admin: 12/02/17 10:02 Dose: 0.5 mg Aspirin (Aspirin Chewable) 81 mg PO DAILY [facility] Last Admin: 12/02/17 12:11 Dose: 81 mg Budesonide (Pulmicort Respules) 0.5 mg IH [id number] [facility] Last Admin: 12/02/17 07:25 Dose: 0.5 mg Enoxaparin Sodium (Lovenox) 40 mg SC DAILY [facility] PRN Reason: Protocol Last Admin: 12/02/17 09:12 Dose: 40 mg Furosemide (Lasix) 20 mg IVP DAILY [facility] Last Admin: 12/02/17 09:10 Dose: 20 mg Home Med (Home Med) 1 unit PO BID [facility] Vancomycin HCl (Vancomycin 1gm) 1 gm in 250 mls @ 167 mls/hr IVPB Q12H [facility] PRN Reason: Protocol Last Admin: 12/02/17 05:41 Dose: 167 mls/hr Insulin Human Regular (Humulin R Med) 0 units SC ACHS [facility] PRN Reason: Protocol Last Admin: 12/02/17 12:42 Dose: 1 units Meclizine HCl (Antivert) 12.5 mg PO BID PRN PRN Reason: Dizziness Methylprednisolone (Solu-Medrol) 40 mg IVP Q12 [facility] Last Admin: 12/02/17 09:13 Dose: 40 mg Metoprolol Tartrate (Lopressor) 12.5 mg PO BID [facility] Last Admin: 12/02/17 09:12 Dose: 12.5 mg Mirtazapine (Remeron) 7.5 mg PO HS [facility] Last Admin: 12/01/17 22:09 Dose: 7.5 mg Ondansetron HCl (Zofran Inj) 4 mg IVP Q6H PRN PRN Reason: Nausea/Vomiting Last Admin: 11/28/17 13:41 Dose: 4 mg Oseltamivir Phosphate (Tamiflu) 30 mg PO BID [facility] PRN Reason: Protocol Stop: 12/03/17 23:16 Last Admin: 12/02/17 09:11 Dose: 30 mg Pantoprazole Sodium (Protonix Ec Tab) 40 mg PO ACB [facility] Last Admin: 12/02/17 10:14 Dose: 40 mg Sildenafil Citrate (Revatio) 20 mg PO BID [facility] Last Admin: 12/02/17 09:11 Dose: 20 mg - Labs Labs: 12/02/17 07:00 12/02/17 07:00 PT 12.1 SECONDS (9.4-12.5) 11/26/17 18:00 INR 1.06 (0.93-1.08) 11/26/17 18:00 APTT 28.6 Seconds (25.1-36.5) 11/26/17 18:00 - Constitutional Appears: No Acute Distress - Head Exam Head Exam: ATRAUMATIC, NORMAL INSPECTION, NORMOCEPHALIC - Eye Exam Eye Exam: Normal appearance, PERRL Pupil Exam: NORMAL ACCOMODATION - ENT Exam ENT Exam: Mucous Membranes Moist - Respiratory Exam Respiratory Exam: Decreased Breath Sounds, NORMAL BREATHING PATTERN. absent: Rales, Rhonchi, Wheezes - Cardiovascular Exam Cardiovascular Exam: REGULAR RHYTHM, +S1, +S2. absent: Gallop, Rubs, Murmur - GI/Abdominal Exam GI & Abdominal Exam: Soft, Normal Bowel Sounds. absent: Rigid, Tenderness, Hypoactive Bowel Sounds, Mass, Rebound - Extremities Exam Extremities Exam: Normal Inspection. absent: Calf Tenderness, Pedal Edema - Neurological Exam Neurological Exam: Alert, Awake, CN II-XII Intact, Oriented x3 - Skin Skin Exam: Dry, Warm
--- NOTE | 2017-12-02 15:56 | CP.PCM.PN ---
Subjective - Date & Time of Evaluation Date of Evaluation: 12/02/17 Time of Evaluation: 10:20 - Subjective Subjective: Patient still requires intermittent BIPAP use, but has less cough and a little less short of breath, no fevers. Objective - Vital Signs/Intake and Output Vital Signs (last 24 hours): Temp Pulse Resp BP Pulse Ox 97.8 F 83 19 107/58 L 94 L 12/01/17 20:00 12/02/17 01:14 12/01/17 18:00 12/01/17 18:00 12/01/17 18:00 Intake and Output: 12/02/17 12/02/17 06:59 18:59 Intake Total 1250 Balance 1250 - Medications Medications: Current Medications Acetaminophen (Tylenol 650 Mg Supp) 650 mg RC Q4H PRN PRN Reason: Fever >100.4 F Albuterol/Ipratropium (Duoneb 3 Mg/0.5 Mg (3 Ml) Ud) 3 ml IH [id number] [facility] Last Admin: 12/02/17 07:25 Dose: 3 ml Albuterol/Ipratropium (Duoneb 3 Mg/0.5 Mg (3 Ml) Ud) 3 ml IH Q2H PRN PRN Reason: Shortness of Breath Alprazolam (Xanax) 0.5 mg PO Q4 PRN; Protocol PRN Reason: Anxiety Last Admin: 12/01/17 17:22 Dose: 0.5 mg Aspirin (Aspirin Supp) 300 mg RC DAILY [facility] Last Admin: 12/01/17 10:00 Dose: 300 mg Budesonide (Pulmicort Respules) 0.5 mg IH [id number] [facility] Last Admin: 12/02/17 07:25 Dose: 0.5 mg Enoxaparin Sodium (Lovenox) 40 mg SC DAILY [facility] PRN Reason: Protocol Last Admin: 12/01/17 12:32 Dose: 40 mg Furosemide (Lasix) 20 mg IVP DAILY [facility] Last Admin: 12/01/17 10:01 Dose: 20 mg Doxycycline Hyclate 100 mg/ (Sodium Chloride) 100 mls @ 100 mls/hr IVPB Q12 [facility] PRN Reason: Protocol Stop: 12/06/17 11:32 Last Admin: 12/01/17 22:11 Dose: 100 mls/hr Meropenem (Merrem Iv 1 Gm Premix) 50 mls @ 100 mls/hr IVPB Q8 [facility] PRN Reason: Protocol Stop: 12/06/17 11:46 Last Admin: 12/02/17 05:43 Dose: 100 mls/hr Vancomycin HCl (Vancomycin 1gm) 1 gm in 250 mls @ 167 mls/hr IVPB Q12H [facility] PRN Reason: Protocol Last Admin: 12/02/17 05:41 Dose: 167 mls/hr Insulin Human Regular (Humulin R Med) 0 units SC ACHS [facility] PRN Reason: Protocol Last Admin: 12/02/17 08:49 Dose: Not Given Meclizine HCl (Antivert) 12.5 mg PO BID PRN PRN Reason: Dizziness Methylprednisolone (Solu-Medrol) 40 mg IVP Q12 [facility] Metoprolol Tartrate (Lopressor) 12.5 mg PO BID [facility] Last Admin: 12/01/17 17:23 Dose: 12.5 mg Mirtazapine (Remeron) 7.5 mg PO HS [facility] Last Admin: 12/01/17 22:09 Dose: 7.5 mg Ondansetron HCl (Zofran Inj) 4 mg IVP Q6H PRN PRN Reason: Nausea/Vomiting Last Admin: 11/28/17 13:41 Dose: 4 mg Oseltamivir Phosphate (Tamiflu) 30 mg PO BID [facility] PRN Reason: Protocol Stop: 12/03/17 23:16 Last Admin: 12/01/17 17:44 Dose: 30 mg Pantoprazole Sodium (Protonix Ec Tab) 40 mg PO ACB [facility] Sildenafil Citrate (Revatio) 20 mg PO BID [facility] Last Admin: 12/01/17 17:22 Dose: 20 mg - Labs Labs: 12/02/17 07:00 12/02/17 07:00 PT 12.1 SECONDS (9.4-12.5) 11/26/17 18:00 INR 1.06 (0.93-1.08) 11/26/17 18:00 APTT 28.6 Seconds (25.1-36.5) 11/26/17 18:00 - Constitutional Appears: Chronically Ill - Head Exam Head Exam: NORMAL INSPECTION - Neck Exam Neck Exam: absent: Meningismus - Respiratory Exam Respiratory Exam: Decreased Breath Sounds - Cardiovascular Exam Cardiovascular Exam: +S1, +S2 - GI/Abdominal Exam GI & Abdominal Exam: Soft. absent: Tenderness Assessment and Plan - Assessment and Plan (Free Text) Plan: Assessment systemic inflammatory response syndrome, probable severe sepsis with hypoxic respiratory failure S/P VDRF, consider HCAP with acute bronchitis chronic CHF end-stage COPD pulmonary HTN CAD dyslipidemia Plan continue doxycycline and Merrem day 6 and Vancomycin day 4, to complete up to 7 days reviewed CXR will continue to monitor clinically
[2017-12-02] MEDS ORDERED: Sodium Chloride 0.9% 250 ML IV STA ×2 (16:47→16:50)
[2017-12-02] MEDS: RANEXA 1000 MG PO SCH (17:43)
[2017-12-02] MEDS ORDERED: Meropenem 1 GM in Dextrose 5% In Water 100 ML IVPB SCH (22:00)
[2017-12-03] MEDS: Albuterol-Ipratrop 3 mg / 0.5 (3 ml) UD IH SCH ×4 (02:03→19:35)
[2017-12-03 05:34] LABS: ARTERIAL BLOOD GAS HEMOGLOBIN 9.2 g/dL (11.7-17.4); ARTERIAL BLOOD GAS O2 CAPACITY 12.8 mL/dl (16-24); ARTERIAL BLOOD GAS O2 CONTENT 12.5 ML/dl (15-23); ARTERIAL BLOOD GAS PCO2 63 mm/Hg (35-45); ARTERIAL BLOOD GAS PH 7.44 (7.35-7.45); ARTERIAL BLOOD GAS TCO2 44.7 mmol.L (22-28)
[2017-12-03 05:37] LABS: ARTERIAL BLOOD GAS HCO3 42.8 mmol/L (21-28)
[2017-12-03] MEDS: Meropenem IV 1 gm in NS 50 ML IVPB SCH (05:51)
[2017-12-03] MEDS: Vancomycin 1gm in NS 250ml 1 GM/250 ML BAG IVPB SCH ×2 (05:52→17:28)
[2017-12-03 05:53] LABS: BASO # 0.01 K/mm3 (0.0-2.0); BASO % 0.1 % (0.0-3.0); EOS % 0.1 % (1.5-5.0); GRAN # 6.58 (1.4-6.5); GRAN % 84.4 % (50.0-68.0); HEMOGLOBIN 9.6 g/dL (12.0-16.0); LYMPH # 0.8 (1.2-3.4); LYMPH % 10.4 % (22.0-35.0); MEAN CELL VOLUME 99.7 fl (80.0-105.0); MEAN CORPUSCULAR HEMOGLOBIN 30.2 pg (25.0-35.0); MEAN CORPUSCULAR HGB CONC 30.3 g/dl (31.0-37.0); MEAN PLATELET VOLUME 10.4 fl (7.0-11.0); MONO # 0.4 (0.1-0.6); RBC 3.18 10^6/uL (3.5-6.1); RED CELL DISTRIBUTION WIDTH 16.8 % (11.5-14.5); WHITE BLOOD COUNT 7.8 10^3/ul (4.5-11.0)
[2017-12-03 06:30] LABS: ALB/GLOB RATIO 1.2 (1.1-1.8); ALBUMIN 2.7 g/dL (3.0-4.8); ALT/SGPT 38 U/L (7-56); AST/SGOT 20 U/L (14-36); BLOOD UREA NITROGEN 59 mg/dL (7-21); CALCIUM 9.6 mg/dL (8.4-10.5); GFR AFRICAN-AMERICAN > 60; GFR NON-AFRICAN AMERICAN > 60
[2017-12-03] MEDS: Budesonide 0.5 mg/2 ml Inhal Susp UD IH SCH ×2 (07:03→19:35)
--- NOTE | 2017-12-03 07:35 | RAD ---
HISTORY: intubated COMPARISON: Comparison is made with 12/02/2017 FINDINGS: LUNGS: No evidence of new infiltrate or consolidation in the lungs. Prominent reticular opacities in the lungs are again noted. PLEURA: No significant pleural effusion identified, no pneumothorax apparent. CARDIOVASCULAR: Normal. OSSEOUS STRUCTURES: No significant abnormalities. VISUALIZED UPPER ABDOMEN: Normal. OTHER FINDINGS: None. IMPRESSION: No evidence of acute pulmonary disease or significant interval change.
[2017-12-03] MEDS: Insulin Reg-MEDIUM-Coverage SC SCH ×4 (09:25→23:42)
[2017-12-03] MEDS: Sildenafil 20 MG TAB PO SCH ×2 (09:36→17:28)
[2017-12-03] MEDS: Enoxaparin 40 mg Syringe SC SCH (09:36)
[2017-12-03] MEDS: Pantoprazole 40 mg EC Tab PO SCH (09:40)
--- NOTE | 2017-12-03 10:22 | CARD ---
APPROVED REPORT EKG Measurement Heart [id number] [id number] <Conclusion> Normal sinus rhythm NSSTW changes V 6 obscured by artifact
[2017-12-03] MEDS: MethylPREDNISolone 40 mg Vial IVP SCH ×2 (10:35→21:14)
[2017-12-03] MEDS: RANEXA 1000 MG PO SCH ×2 (10:35→17:27)
--- NOTE | 2017-12-03 13:28 | PN ---
DATE: 12/03/2017 PULMONARY PROGRESS NOTE SUBJECTIVE: The patient is sitting in bed. She states that she is feeling markedly better. She still has some wheezing. She states that this is better than it has been and she is feeling well for the first time in 90 weeks. She is anxious to get out of the intensive care unit and back to life. PHYSICAL EXAMINATION: GENERAL: She is resting comfortably, sitting in chair. VITAL SIGNS: Temperature 98.6, pulse 90, respiratory rate 18, blood pressure 110/70, O2 saturation is 96% on supplemental oxygen. HEENT: Normocephalic, atraumatic. There is no jugular venous distention and no bruit. No mass. No lymphadenopathy. CARDIOVASCULAR: Regular rhythm. S1 and S2. No gallop is appreciated. There is a soft systolic ejection murmur noted. CHEST: Global decrease in breath sounds. No rales, rhonchi or wheezes. ABDOMEN: Soft. Bowel sounds normoactive without mass, guarding, rebound or organomegaly. EXTREMITIES: Reveal no clubbing, cyanosis or edema. There is no Homans' sign. SKIN: Shows no rash or excoriation. Lymphadenopathy is not present at this time. There is nothing palpable in the supraclavicular notch, cervical, inguinal or axillary areas. NEUROLOGIC: Awake, alert, and oriented. No focal findings. LABORATORY DATA AND IMAGING: Chest x-ray was done this morning, which shows no change from the previous film. There is no infiltrates noted. No pleural effusions. Actually, looks quite better. Arterial blood gas yesterday as related by the medical record shows a pH of 7.45, pCO2 63, pO2 of 64. CLINICAL IMPRESSION: 1. Status post respiratory failure. 2. Chronic respiratory insufficiency. 3. End-stage chronic obstructive pulmonary disease. 4. Sepsis syndrome. 5. Pulmonary arterial hypertension (PAH). 6. Coronary artery disease. PLAN: The patient is on Revatio for the pulmonary hypertension. The patient should be started on further PAH medications as an outpatient. This will require further intervention. I will discuss with the patient's primary medical doctor and shoe cleaner. Further diagnostics maybe required in order to get additional medications. We will discuss with Dr. Briggs who will take over on Tuesday in the care of this patient. Thank you for the opportunity to care for Shahida Blackburn. Power William MD [facility] # [id number]
--- NOTE | 2017-12-03 16:06 | PN ---
DATE: SUBJECTIVE: I saw her resting comfortably, out of bed to chair in the Intensive Care Unit. She is alert. She is trying to eat corned beef and cabbage for [employer]. She is not as strong as she was. She could not really stand well when they pivoted her. She is on albuterol, meclizine, aspirin, albuterol, insulin, Lasix, metoprolol, Lovenox, pantoprazole, Pulmicort, Remeron, Revatio, IV fluids, Solu-Medrol, Tylenol, vancomycin, Xanax and Zofran. OBJECTIVE VITAL SIGNS: She has a 97.4 temperature, 84 pulse, blood pressure, 21 respiratory rate and 90% O2 sat on 2 liters. GENERAL: She is alert, maybe a little bit better than yesterday, but weak. HEENT: Head is atraumatic, normocephalic. HEART: Regular rate. LUNGS: Decreased breath sounds bilaterally. ABDOMEN: Soft. EXTREMITIES: No edema. LABORATORY DATA: She has a 7.8 white count, 9.6 hemoglobin, 31.7 hematocrit with 270,000 platelets. INR is 1.06. She has a 141 sodium, potassium 4.9. BUN is 69, creatinine 0.7, it is a little bit up. Blood sugar 116, calcium 9.6, total bili is 0.3, AST is 20, ALT is 38, alkaline phosphatase 46, total protein is 5. She is being seen by multiple physicians; Infectious Disease, Pulmonary, Cardiology. Chest x-ray showed no evidence of acute pulmonary disease at this time, which is great. She has multiple issues; COPD, CHF, pulmonary hypertension, acute respiratory distress with intubation, UTI, high potassium, SIRS, CHF, hypoxemia. We will check her labs tomorrow. Keep her out of bed to chair. Continue with aggressive treatment and care on Shahida Blackburn. Nigel Wheeler DO [facility]
[2017-12-04] MEDS: Albuterol-Ipratrop 3 mg / 0.5 (3 ml) UD IH SCH ×4 (02:30→20:05)
[2017-12-04] MEDS: Vancomycin 1gm in NS 250ml 1 GM/250 ML BAG IVPB SCH (05:36)
[2017-12-04 06:05] LABS: BASO # 0.01 K/mm3 (0.0-2.0); BASO % 0.1 % (0.0-3.0); GRAN # 5.57 (1.4-6.5); GRAN % 82.9 % (50.0-68.0); LYMPH # 0.8 (1.2-3.4); LYMPH % 11.7 % (22.0-35.0); MEAN CELL VOLUME 99.3 fl (80.0-105.0); MEAN CORPUSCULAR HEMOGLOBIN 30.1 pg (25.0-35.0); MEAN CORPUSCULAR HGB CONC 30.3 g/dl (31.0-37.0); MEAN PLATELET VOLUME 10.2 fl (7.0-11.0); MONO # 0.4 (0.1-0.6); MONO % 5.3 % (1.0-6.0); RBC 2.99 10^6/uL (3.5-6.1); RED CELL DISTRIBUTION WIDTH 17.1 % (11.5-14.5); WHITE BLOOD COUNT 6.7 10^3/ul (4.5-11.0)
[2017-12-04 06:26] LABS: ARTERIAL BLOOD GAS HEMOGLOBIN 8.5 g/dL (11.7-17.4); ARTERIAL BLOOD GAS O2 CAPACITY 11.7 mL/dl (16-24); ARTERIAL BLOOD GAS O2 CONTENT 11.3 ML/dl (15-23); ARTERIAL BLOOD GAS O2 SAT 96.6 % (95-98); ARTERIAL BLOOD GAS PCO2 70 mm/Hg (35-45); ARTERIAL BLOOD GAS PH 7.37 (7.35-7.45); ARTERIAL BLOOD GAS TCO2 42.6 mmol.L (22-28)
[2017-12-04 06:34] LABS: ALB/GLOB RATIO 1.1 (1.1-1.8); ALBUMIN 2.4 g/dL (3.0-4.8); ALT/SGPT 36 U/L (7-56); AST/SGOT 19 U/L (14-36); BLOOD UREA NITROGEN 59 mg/dL (7-21); CALCIUM 9.3 mg/dL (8.4-10.5); GFR AFRICAN-AMERICAN > 60; GFR NON-AFRICAN AMERICAN > 60
[2017-12-04 06:53] LABS: ARTERIAL BLOOD GAS HCO3 40.5 mmol/L (21-28)
[2017-12-04] MEDS: Budesonide 0.5 mg/2 ml Inhal Susp UD IH SCH ×2 (07:23→20:05)
[2017-12-04] MEDS: Insulin Reg-MEDIUM-Coverage SC SCH ×4 (09:02→22:00)
[2017-12-04] MEDS: Pantoprazole 40 mg EC Tab PO SCH (09:21)
[2017-12-04] MEDS: Enoxaparin 40 mg Syringe SC SCH (09:23)
[2017-12-04] MEDS: Sildenafil 20 MG TAB PO SCH ×2 (09:23→18:14)
[2017-12-04] MEDS: MethylPREDNISolone 40 mg Vial IVP SCH ×2 (09:24→21:57)
--- NOTE | 2017-12-04 11:40 | PN ---
DATE: 12/04/2017 SUBJECTIVE: The patient is in bed, in no acute distress, nontoxic. No fevers and chills. No nausea or vomiting. PHYSICAL EXAMINATION: Temperature is 98, Blood pressure is 130/60, respiratory rate of 18, heart rate of 80. HEENT: Examination of HEENT is unremarkable. NECK: Supple. LUNGS: Have decreased breath sounds. HEART: Normal S1 and S2. ABDOMEN: Soft, nontender. LABORATORY EXAMINATION: Reveals a white count of 6.7, hemoglobin of 9, platelets of 246. Coagulation is noted. Chemistries reveals a BUN of 59, creatinine of 0.6 and urinalysis is noted and influenza is negative. Urine culture is positive for Enterococcus faecalis. Sensitive to ampicillin. ASSESSMENT AND PLAN: An 82-year-old female, who was seen early this morning in [facility], bed 4, appears comfortable with systemic inflammatory response syndrome and probable severe sepsis, hypoxic respiratory failure, status post ventilator-dependent respiratory failure, healthcare-associated pneumonia with acute bronchitis in a patient with chronic congestive heart failure, end-stage chronic obstructive lung disease, pulmonary hypertension, coronary artery disease, dyslipidemia, on vancomycin day #6 and completed meropenem and doxycycline. Urinalysis, 2-5 wbc's. We will discontinue the vancomycin, watch the patient off of antibiotics. The patient is at risk for developing nosocomial infections. Jose Eastman MD
--- NOTE | 2017-12-04 12:03 | PN ---
DATE: SUBJECTIVE: I saw her resting comfortably in bed. She slept fairly well. She is having some left breast pain, not chest wall, not heart, but in her breast itself. I will order mammography, it has been 2 days with this. MEDICATIONS: She is on albuterol, meclizine, aspirin, albuterol, insulin, Lasix, Lopressor, Lovenox, Protonix, Pulmicort, Remeron, Revatio, Solu-Medrol as per Pulmonary, Tylenol, Xanax and Zofran. PHYSICAL EXAMINATION: VITAL SIGNS: She has a 98.3 temp, 79 pulse, 124/72 blood pressure, 18 respiratory rate, 96% O2 sat on room air. HEENT: Head is atraumatic, normocephalic. HEART: Regular rate. LUNGS: Decreased breath sounds. ABDOMEN: Soft, nontender. Positive bowel sounds. EXTREMITIES: No edema. She is hungry. She is eating some breakfast today. She is little bit weak. She is sitting out of bed to chair. LABORATORY DATA: She has a 6.7 white count, 9 hemoglobin, 29.7 hematocrit with 246 platelets. She has a 141 sodium, potassium 5, BUN is 59, creatinine 0.6, GFR is greater than 60, sugar is 117, calcium is 9.3, total bili is 0.3, AST is 19, ALT is 36, alk phos 44, total protein is 4.7. ASSESSMENT AND PLAN: She is being seen by Pulmonary, Infectious Disease, Cardiology. Chest x-ray was clear. She has systemic inflammatory response syndrome, probable severe sepsis with hypoxia, respiratory failure. She has a pneumonia; bronchitis; congestive heart failure; chronic obstructive pulmonary disease, end stage; pulmonary hypertension; coronary artery disease; high cholesterol. She is on Merrem, Lasix, vancomycin day 4. Continue with aggressive treatment and care. Family is going to make a plan if she goes back to [facility] for more rehab. I think she is in a good place for that. I will do a mammography on her. She is to get that done. I saw her in the unit. Nigel Wheeler DO [facility] # [id number]
[2017-12-04] MEDS ORDERED: Home Med 1 UNIT PO SCH (14:15)
[2017-12-04] MEDS: RANEXA 1000 MG PO SCH (14:32)
--- NOTE | 2017-12-04 14:44 | PN ---
DATE: 12/04/2017 PULMONARY PROGRESS NOTE SUBJECTIVE: The patient is markedly improved, sitting up in bed in the intensive care unit. She states that she is feeling somewhat better. PHYSICAL EXAMINATION: GENERAL: Shahida is feeling better, out of bed in the chair. VITAL SIGNS: Stable. She is afebrile. Blood pressure 110/70, oxygen sat 96% on supplemental oxygen, pulse 90, respiratory rate 16. HEENT: Normocephalic, atraumatic. CARDIOVASCULAR: Regular rhythm. S1, S2 without gallop or rub. There is remains a soft systolic ejection at the lower left sternal border. CHEST: Global decrease in breath sounds. No rales, rhonchi or wheezes. ABDOMEN: Soft. Bowel sounds are normoactive. EXTREMITIES: Reveal no clubbing, cyanosis or edema. There is no Homans' sign. SKIN: Warm, dry. No rash or excoriation. LYMPHADENOPATHY: Not present at this time. NEUROLOGIC: Awake, alert, oriented. No focal findings. LABORATORY DATA: New chest x-ray done this morning shows slight improvement. No infiltrates were noted. Good aeration. No atelectasis. CLINICAL STATUS: 1. Status post respiratory failure. 2. Chronic respiratory insufficiency. 3. End-stage COPD. 4. Sepsis syndrome. 5. PAH (pulmonary arterial hypertension). 6. Coronary artery disease. PLAN: Continue vigorous supportive care. We will discuss with Dr. Briggs should the patient require further medications for PAH can be considered. We will follow closely with you as required. Power William MD
[2017-12-04] MEDS ORDERED: RANEXA 1000 MG PO SCH (18:09)
--- NOTE | 2017-12-04 21:54 | RAD ---
HISTORY: intubated COMPARISON: Comparison is made with 12/03/2017 FINDINGS: LUNGS: No significant interval change. Reticular opacities at the mid and lower right and left lungs are again seen. PLEURA: No significant pleural effusion identified, no pneumothorax apparent. CARDIOVASCULAR: Normal. OSSEOUS STRUCTURES: No significant abnormalities. VISUALIZED UPPER ABDOMEN: Normal. OTHER FINDINGS: None. IMPRESSION: No significant interval change noted since the previous exam. No evidence of ETT.
[2017-12-05] MEDS: Albuterol-Ipratrop 3 mg / 0.5 (3 ml) UD IH SCH ×4 (02:35→20:10)
[2017-12-05 06:37] LABS: ARTERIAL BLOOD GAS HEMOGLOBIN 8.3 g/dL (11.7-17.4); ARTERIAL BLOOD GAS O2 CAPACITY 11.5 mL/dl (16-24); ARTERIAL BLOOD GAS O2 CONTENT 11.2 ML/dl (15-23); ARTERIAL BLOOD GAS O2 SAT 97.6 % (95-98); ARTERIAL BLOOD GAS PCO2 68 mm/Hg (35-45); ARTERIAL BLOOD GAS PH 7.39 (7.35-7.45); ARTERIAL BLOOD GAS TCO2 43.3 mmol.L (22-28)
[2017-12-05 06:55] LABS: GRAN # 5.36 (1.4-6.5); GRAN % 87.3 % (50.0-68.0); HEMOGLOBIN 8.8 g/dL (12.0-16.0); LYMPH # 0.6 (1.2-3.4); LYMPH % 9.3 % (22.0-35.0); MEAN CORPUSCULAR HEMOGLOBIN 30.1 pg (25.0-35.0); MEAN CORPUSCULAR HGB CONC 30.4 g/dl (31.0-37.0); MEAN PLATELET VOLUME 10.7 fl (7.0-11.0); MONO # 0.2 (0.1-0.6); MONO % 3.4 % (1.0-6.0); RBC 2.92 10^6/uL (3.5-6.1); WHITE BLOOD COUNT 6.1 10^3/ul (4.5-11.0)
[2017-12-05 07:22] LABS: ARTERIAL BLOOD GAS HCO3 41.2 mmol/L (21-28)
[2017-12-05 07:29] LABS: ALB/GLOB RATIO 1.1 (1.1-1.8); ALBUMIN 2.4 g/dL (3.0-4.8); ALT/SGPT 41 U/L (7-56); AST/SGOT 27 U/L (14-36); BLOOD UREA NITROGEN 63 mg/dL (7-21); CALCIUM 9.2 mg/dL (8.4-10.5); GFR AFRICAN-AMERICAN > 60; GFR NON-AFRICAN AMERICAN > 60
[2017-12-05] MEDS: Insulin Reg-MEDIUM-Coverage SC SCH ×4 (07:30→21:34)
[2017-12-05] MEDS: Budesonide 0.5 mg/2 ml Inhal Susp UD IH SCH ×2 (07:44→20:10)
--- NOTE | 2017-12-05 08:59 | PN ---
DATE: 12/03/2017 SUBJECTIVE: The patient is in bed, in no acute distress. The patient was seen early this morning in the CCU 129, bed 4. She is resting comfortably, uneventful night. PHYSICAL EXAMINATION: VITAL SIGNS: Temperature of 97.4, blood pressure is 118/60, respiratory rate of 22, heart rate of 91. HEENT: Unremarkable. NECK: Supple. LUNGS: Have decreased breath sounds. HEART: Normal S1, S2. ABDOMEN: Soft, nontender. LABORATORY DATA: Reveals the patient's white count is 7.8 and hemoglobin is 9, platelets of 270 and coagulation is noted. Chemistries are reviewed. Microbiology: Reveals urine cultures, Enterococcus faecalis from 11/29/2017 and sensitive to ampicillin. Review of orders reveals the patient to be on doxycycline, meropenem, Solu-Medrol and IV vancomycin. The patient also had a chest x-ray this morning. No evidence of new infiltrate or consolidation in the lung. Last procalcitonin was 0.08 on the 12th. ASSESSMENT AND PLAN: This is an 82-year-old female seen early this morning in CCU #4, appears comfortable, less short of breath. No fevers with severe systemic inflammatory response syndrome and status post severe sepsis, hypoxic respiratory failure status post ventilator dependent respiratory failure and healthcare associated pneumonia with acute bronchitis and chronic congestive heart failure and end-stage chronic obstructive pulmonary disease with pulmonary hypertension, coronary artery disease and dyslipidemia and day #7 of doxycycline, meropenem; day #5 of vancomycin. We will discontinue the doxycycline and meropenem and today is day #5 of vancomycin. We will make changes next 24 hours regarding continuation of the vancomycin. The patient's nasal methicillin-resistant Staphylococcus aureus is not detected. Enterococcus in the urine is possible source. However, only 2 to 5 wbc's in the urinalysis. The patient is also on Solu-Medrol. Also, likely we will discontinue the vancomycin in the next 24 hours.. Jose Eastman MD
[2017-12-05] MEDS: Sildenafil 20 MG TAB PO SCH ×2 (09:10→18:35)
[2017-12-05] MEDS: MethylPREDNISolone 40 mg Vial IVP SCH ×2 (09:12→21:19)
[2017-12-05] MEDS: Enoxaparin 40 mg Syringe SC SCH (09:13)
[2017-12-05] MEDS: Home Med 1 UNIT PO SCH (09:22)
[2017-12-05] MEDS: RANEXA 1000 MG PO SCH ×2 (09:23→21:28)
--- NOTE | 2017-12-05 09:28 | RAD ---
HISTORY: intubated COMPARISON: 12/04/2017 FINDINGS: LUNGS: No active pulmonary disease. PLEURA: No significant pleural effusion identified, no pneumothorax apparent. CARDIOVASCULAR: Normal. OSSEOUS STRUCTURES: No significant abnormalities. VISUALIZED UPPER ABDOMEN: Normal. OTHER FINDINGS: None. IMPRESSION: No active disease.
[2017-12-05] MEDS ORDERED: RENEXA PO SCH (10:00)
[2017-12-05] MEDS ORDERED: DEXILANT 60 MG PO SCH ×2 (10:00)
--- NOTE | 2017-12-05 10:14 | PN ---
DATE: 12/05/2017(700am-755am) SUBJECTIVE: The patient appears comfortable this morning. She is not short of breath at rest. She is awake and alert. PHYSICAL EXAMINATION: VITAL SIGNS: Temperature is 98.0, pulse 81, respirations 19, blood pressure 110/51. Oxygen saturation on nasal cannula is 100%. HEENT: Normocephalic, atraumatic. No JVD. CARDIOVASCULAR: Systolic ejection murmur at the lower left sternal border. No S3 gallop. LUNGS: Decreased breath sounds at the bases. Minimal bilateral rhonchi. No wheezing. EXTREMITIES: Mild edema. No cyanosis, no clubbing. Calves are nontender to palpation. GASTROINTESTINAL: Abdomen is soft, nontender, and nondistended. Bowel sounds are positive. SKIN: No acute rash. NEUROLOGIC: Limited at the present time. PERTINENT LABORATORY DATA: Chest x-ray was done this morning and reviewed. There is now a patchy infiltrate noted at the right lower lobe/base. Arterial blood gas was done on nasal cannula. Results are: PH 7.39, pCO2 of 68, pO2 of 84. IMPRESSION: 1. Status post respiratory failure. 2. Sepsis syndrome. 3. End-stage chronic obstructive pulmonary disease. 4. Rule out pneumonia - right lower lobe. 5. Urinary tract infection. 6. Pulmonary hypertension. 7. Coronary artery disease. PLAN: The patient appears comfortable this morning. She is not short of breath at rest. She is awake and alert. She does state to feeling much better overall. I did discuss the case with the night nurse at length. The night nurse stated that the patient had a good night. I did review the chest x-ray as above. There is now a new patchy infiltrate noted at the right lower lobe/base. Official results are pending. I have also reviewed the arterial blood gas. The arterial blood gas is significantly improved - with resolution of the acidosis, and a decrease in the alveolar-arterial gradient. At this point in time, I will order a stat procalcitonin level - to help distinguish whether we are dealing with an acute pneumonia or not. I will also discuss the chest x-ray findings with Infectious Disease this morning. The patient is now off antibiotic therapy. Clinical status of the patient is certainly improved - compared to last week. However, unfortunately, the overall status/prognosis for this patient remains poor. I will discuss the above the entire ICU team in the next few moments. I will also discuss the above with Dr. Wheeler later this morning. Evgney Briggs MD [facility]
--- NOTE | 2017-12-05 11:33 | PN ---
DATE: 12/05/2017 CARDIOLOGY FOLLOWUP SUBJECTIVE: The patient is awake, alert. No shortness of breath noted. PHYSICAL EXAMINATION: VITAL SIGNS: Blood pressure is 129/57, the heart rates in the 80s. NECK: Negative JVD. LUNGS: Decreased breath sounds without rales. HEART: Reveals S1, S2. EXTREMITIES: Without edema. LABORATORY DATA: Hemoglobin is 8.8. Chemistries: BUN and creatinine are 63 and 0.7. IMPRESSION: 1. Exacerbation of chronic obstructive pulmonary disease, which is much improved. 2. Prerenal azotemia. 3. Stable angina. 4. Coronary artery disease. 5. Pulmonary hypertension. PLAN: Given these findings, we will hold her Lasix for now. The patient can be transferred to the floor today. Harrison Echavarria MD
[2017-12-05] MEDS: Linezolid 600 mg in D5W 300 ml 600 MG/300 ML BAG IVPB SCH ×2 (12:37→21:25)
--- NOTE | 2017-12-05 13:44 | CP.PCM.PN ---
Subjective - Date & Time of Evaluation Date of Evaluation: 12/05/17 Time of Evaluation: 10:40 - Subjective Subjective: Patient is breathing better and has less cough, no fevers but still feels weak. Objective - Vital Signs/Intake and Output Vital Signs (last 24 hours): Temp Pulse Resp BP Pulse Ox 98 F 81 19 129/57 L 100 12/05/17 05:00 12/05/17 06:00 12/05/17 06:00 12/05/17 09:12 12/05/17 06:00 Intake and Output: 12/05/17 12/05/17 06:59 18:59 Intake Total 600 Output Total 850 Balance -250 - Medications Medications: Current Medications Acetaminophen (Tylenol 650 Mg Supp) 650 mg RC Q4H PRN PRN Reason: Fever >100.4 F Acetaminophen (Tylenol 325mg Tab) 650 mg PO Q4H PRN PRN Reason: Pain, moderate (4-7) Last Admin: 12/02/17 12:11 Dose: 650 mg Albuterol/Ipratropium (Duoneb 3 Mg/0.5 Mg (3 Ml) Ud) 3 ml IH [id number] [facility] Last Admin: 12/05/17 07:44 Dose: 3 ml Albuterol/Ipratropium (Duoneb 3 Mg/0.5 Mg (3 Ml) Ud) 3 ml IH Q2H PRN PRN Reason: Shortness of Breath Last Admin: 12/02/17 16:05 Dose: 3 ml Alprazolam (Xanax) 0.5 mg PO Q4 PRN; Protocol PRN Reason: Anxiety Last Admin: 12/05/17 09:10 Dose: 0.5 mg Aspirin (Aspirin Chewable) 81 mg PO DAILY [facility] Last Admin: 12/05/17 09:09 Dose: 81 mg Budesonide (Pulmicort Respules) 0.5 mg IH [id number] [facility] Last Admin: 12/05/17 07:44 Dose: 0.5 mg Enoxaparin Sodium (Lovenox) 40 mg SC DAILY [facility] PRN Reason: Protocol Last Admin: 12/05/17 09:13 Dose: 40 mg Furosemide (Lasix) 20 mg IVP DAILY [facility] Last Admin: 12/05/17 09:12 Dose: 20 mg Home Med (Home Med) 1 unit PO ACB [facility] Last Admin: 12/05/17 09:22 Dose: 1 unit Home Med (Home Med) 1 unit PO Q12 [facility] Last Admin: 12/05/17 09:23 Dose: 1 unit Meropenem 1 gm/ Dextrose 100 mls @ 100 mls/hr IVPB Q8 [facility] PRN Reason: Protocol Stop: 12/12/17 14:01 Linezolid (Zyvox 600mg/300ml D5w) 600 mg in 300 mls @ 200 mls/hr IVPB Q12 [facility] PRN Reason: Protocol Stop: 12/12/17 10:16 Insulin Human Regular (Humulin R Med) 0 units SC ACHS [facility] PRN Reason: Protocol Last Admin: 12/04/17 22:00 Dose: Not Given Meclizine HCl (Antivert) 12.5 mg PO BID PRN PRN Reason: Dizziness Last Admin: 12/03/17 17:31 Dose: 12.5 mg Methylprednisolone (Solu-Medrol) 30 mg IVP Q12 [facility] Last Admin: 12/05/17 09:12 Dose: 30 mg Metoprolol Tartrate (Lopressor) 12.5 mg PO BID [facility] Last Admin: 12/05/17 09:09 Dose: 12.5 mg Ondansetron HCl (Zofran Inj) 4 mg IVP Q6H PRN PRN Reason: Nausea/Vomiting Last Admin: 11/28/17 13:41 Dose: 4 mg Sildenafil Citrate (Revatio) 20 mg PO BID [facility] Last Admin: 12/05/17 09:10 Dose: 20 mg - Labs Labs: 12/05/17 06:00 12/05/17 06:00 PT 12.1 SECONDS (9.4-12.5) 11/26/17 18:00 INR 1.06 (0.93-1.08) 11/26/17 18:00 APTT 28.6 Seconds (25.1-36.5) 11/26/17 18:00 - Constitutional Appears: Chronically Ill - Head Exam Head Exam: NORMAL INSPECTION - ENT Exam ENT Exam: Mucous Membranes Moist - Neck Exam Neck Exam: absent: Meningismus - Respiratory Exam Respiratory Exam: Decreased Breath Sounds - Cardiovascular Exam Cardiovascular Exam: +S1, +S2 - GI/Abdominal Exam GI & Abdominal Exam: Soft. absent: Tenderness Assessment and Plan - Assessment and Plan (Free Text) Plan: Assessment systemic inflammatory response syndrome, probable severe sepsis with hypoxic respiratory failure S/P VDRF, consider HCAP, new onset, right lower lobe on top of acute bronchitis chronic CHF end-stage COPD pulmonary HTN CAD dyslipidemia Plan will start Zyvox and Merrem (and d/c Remeron since it may interact with Zyvox) after reviewing CXR and discussion with Pulmonary and repeat septic work up ( patient had finished a 7 day course of Doxy and Merrem recently) will monitor clinically
--- NOTE | 2017-12-05 13:57 | PN ---
DATE: 12/05/2017 SUBJECTIVE: She is doing much better. She slept well last night. She is eating better. She was taken out of bed to chair. She is at a point now, I think, looking for rehab again. PHYSICAL EXAMINATION: VITAL SIGNS: She has 98 temperature, 81 pulse, 110/51 blood pressure, 19 respiratory rate, 100% O2 sat on nasal cannula. HEENT: Head is atraumatic and normocephalic. HEART: Regular rate. LUNGS: Decreased breath sounds, but clear. ABDOMEN: Soft. EXTREMITIES: No edema. MEDICATIONS: She is currently on Antivert, aspirin, and DuoNeb. The home medications that the family wants her on are Lasix, Lopressor, Lovenox, Pulmicort, Remeron, Revatio, Solu-Medrol is down to 30 mg IV q. 12, Tylenol, Xanax and Zofran. LABORATORY DATA: She has a 138 sodium; potassium of 5.2, Kayexalate. BUN 63, creatinine 0.7, GFR is greater than 60, sugar is 124, calcium is 9.2, total bili is 0.3, AST is 27, ALT is 41, alkaline phosphatase 45, total protein is 4.6, white count is 6.1, hemoglobin 8.8, hematocrit 28.9, platelets 235,000. She is being seeing by multiple doctors; Pulmonary, Infectious Disease, Mining Consultant, Cardiology. She has been on the ventilator and now, she is off the ventilator. She does have systemic inflammatory response syndrome, acute respiratory failure. She was hypoxic, pneumonia, end-stage COPD, CAD and we will continue to be aggressive with her. My next plan is getting off the Solu-Medrol and then, to rehab again. Nigel Wheeler DO [facility]
[2017-12-05] MEDS: Meropenem IV 1 gm in NS 50 ML IVPB SCH ×2 (16:16→21:19)
[2017-12-06] MEDS: Albuterol-Ipratrop 3 mg / 0.5 (3 ml) UD IH SCH ×4 (01:55→19:39)
[2017-12-06] MEDS: Meropenem IV 1 gm in NS 50 ML IVPB SCH ×3 (05:58→21:37)
[2017-12-06 06:43] LABS: HEMOGLOBIN 9.9 g/dL (12.0-16.0); MEAN CELL VOLUME 99.1 fl (80.0-105.0); MEAN CORPUSCULAR HEMOGLOBIN 29.9 pg (25.0-35.0); MEAN CORPUSCULAR HGB CONC 30.2 g/dl (31.0-37.0); MEAN PLATELET VOLUME 10.9 fl (7.0-11.0); RBC 3.31 10^6/uL (3.5-6.1); RED CELL DISTRIBUTION WIDTH 16.6 % (11.5-14.5); WHITE BLOOD COUNT 6.8 10^3/ul (4.5-11.0)
[2017-12-06 07:37] LABS: ALB/GLOB RATIO 1.1 (1.1-1.8); ALBUMIN 2.8 g/dL (3.0-4.8); ALT/SGPT 41 U/L (7-56); AST/SGOT 29 U/L (14-36); BLOOD UREA NITROGEN 53 mg/dL (7-21); CALCIUM 9.2 mg/dL (8.4-10.5); GFR AFRICAN-AMERICAN > 60; GFR NON-AFRICAN AMERICAN > 60
[2017-12-06] MEDS: Budesonide 0.5 mg/2 ml Inhal Susp UD IH SCH ×2 (07:38→19:39)
[2017-12-06] MEDS: Insulin Reg-MEDIUM-Coverage SC SCH ×4 (08:11→22:18)
--- NOTE | 2017-12-06 09:22 | PN ---
DATE: 12/06/2017(715am--805am) PULMONARY NOTE SUBJECTIVE: The patient appears comfortable this morning. She is not short of breath at rest. PHYSICAL EXAMINATION: VITAL SIGNS: Last temperature recorded is 97.3, pulse 81, respirations 18/20, blood pressure 107/59. Oxygen saturation on nasal cannula is 100%. HEENT: Normocephalic, atraumatic. No JVD. CARDIOVASCULAR: Systolic ejection murmur at the lower left sternal border. No S3 gallop. LUNGS: Decreased breath sounds at the bases. Minimal/less rhonchi. No wheezing. EXTREMITIES: Mild edema. No cyanosis. No clubbing. Calves are nontender to palpation. GI: Abdomen is soft, nontender and nondistended. Bowel sounds are positive. SKIN: No acute rash. NEUROLOGIC: Limited at the present time. PERTINENT LABORATORY DATA: Chest x-ray was done this morning and reviewed. The small infiltrate seen at the right base yesterday is no longer apparent. Procalcitonin is negative - 0.05. IMPRESSION: 1. Status post respiratory failure. 2. Sepsis syndrome. 3. End-stage chronic obstructive pulmonary disease. 4. Rule out pneumonia - right lower lobe - less likely. 5. Urinary tract infection. 6. Pulmonary hypertension. 7. Coronary artery disease. PLAN: The patient appears comfortable this morning. She is not short of breath at rest. She is awake and alert. She does state to feeling much better overall. I did discuss the case with the night nurse at length. The night nurse stated that the patient had a good night. I did review the chest x-ray from today. The small infiltrate(?atelectasis) seen on yesterday's film - at the right base - is no longer apparent. In addition, the procalcitonin is negative. The patient has been started on antibiotic therapy - as per Infectious Disease. I will discuss the most recent chest x-ray with them this morning. On physical exam, there is less bronchospasm noted. In addition, the oxygen saturation on nasal cannula is now 100%. I will continue with the current nebulizer treatments and low-dose intravenous steroids (decreased yesterday) for now. The patient also remains on Revatio - for her pulmonary hypertension. Clinical status of the patient is certainly improved - compared to last week. However, again, the future status/prognosis for this patient remains poor. I will discuss the above with the entire ICU team in the next few moments. I will also discuss the above with Dr. Wheeler. Evgeny Briggs MD [facility]
[2017-12-06] MEDS: Enoxaparin 40 mg Syringe SC SCH (10:35)
[2017-12-06] MEDS: Linezolid 600 mg in D5W 300 ml 600 MG/300 ML BAG IVPB SCH ×2 (10:36→22:50)
[2017-12-06] MEDS: MethylPREDNISolone 40 mg Vial IVP SCH ×2 (10:37→21:39)
[2017-12-06] MEDS: Sildenafil 20 MG TAB PO SCH ×2 (10:37→18:52)
[2017-12-06] MEDS: RANEXA 1000 MG PO SCH ×2 (10:37→21:44)
[2017-12-06] MEDS: Home Med 1 UNIT PO SCH (10:48)
--- NOTE | 2017-12-06 10:56 | CP.PCM.PN ---
Subjective - Date & Time of Evaluation Date of Evaluation: 12/06/17 Time of Evaluation: 09:20 - Subjective Subjective: Patient is resting comfortably in bed, no fevers, not in distress. Objective - Vital Signs/Intake and Output Vital Signs (last 24 hours): Temp Pulse Resp BP Pulse Ox 97.3 F L 81 23 107/59 L 100 12/05/17 12:00 12/06/17 03:23 12/05/17 20:00 12/05/17 20:00 12/05/17 20:00 Intake and Output: 12/05/17 12/06/17 18:59 06:59 Intake Total 720 Output Total 500 Balance 220 - Medications Medications: Current Medications Acetaminophen (Tylenol 650 Mg Supp) 650 mg RC Q4H PRN PRN Reason: Fever >100.4 F Acetaminophen (Tylenol 325mg Tab) 650 mg PO Q4H PRN PRN Reason: Pain, moderate (4-7) Last Admin: 12/02/17 12:11 Dose: 650 mg Albuterol/Ipratropium (Duoneb 3 Mg/0.5 Mg (3 Ml) Ud) 3 ml IH [id number] [facility] Last Admin: 12/06/17 01:55 Dose: Not Given Albuterol/Ipratropium (Duoneb 3 Mg/0.5 Mg (3 Ml) Ud) 3 ml IH Q2H PRN PRN Reason: Shortness of Breath Last Admin: 12/02/17 16:05 Dose: 3 ml Alprazolam (Xanax) 0.5 mg PO Q4 PRN; Protocol PRN Reason: Anxiety Last Admin: 12/06/17 05:57 Dose: 0.5 mg Aspirin (Aspirin Chewable) 81 mg PO DAILY [facility] Last Admin: 12/05/17 09:09 Dose: 81 mg Budesonide (Pulmicort Respules) 0.5 mg IH [id number] [facility] Last Admin: 12/05/17 20:10 Dose: 0.5 mg Enoxaparin Sodium (Lovenox) 40 mg SC DAILY [facility] PRN Reason: Protocol Last Admin: 12/05/17 09:13 Dose: 40 mg Home Med (Home Med) 1 unit PO ACB [facility] Last Admin: 12/05/17 09:22 Dose: 1 unit Home Med (Home Med) 1 unit PO Q12 [facility] Last Admin: 12/05/17 21:28 Dose: 1 unit Meropenem (Merrem Iv 1 Gm Premix) 50 mls @ 100 mls/hr IVPB Q8 [facility] PRN Reason: Protocol Stop: 12/12/17 14:01 Last Admin: 12/06/17 05:58 Dose: 100 mls/hr Linezolid (Zyvox 600mg/300ml D5w) 600 mg in 300 mls @ 200 mls/hr IVPB Q12 [facility] PRN Reason: Protocol Stop: 12/12/17 10:16 Last Admin: 12/05/17 21:25 Dose: 200 mls/hr Insulin Human Regular (Humulin R Med) 0 units SC ACHS [facility] PRN Reason: Protocol Last Admin: 12/05/17 21:34 Dose: Not Given Meclizine HCl (Antivert) 12.5 mg PO BID PRN PRN Reason: Dizziness Last Admin: 12/03/17 17:31 Dose: 12.5 mg Methylprednisolone (Solu-Medrol) 30 mg IVP Q12 [facility] Last Admin: 12/05/17 21:19 Dose: 30 mg Metoprolol Tartrate (Lopressor) 12.5 mg PO BID [facility] Last Admin: 12/05/17 18:36 Dose: 12.5 mg Ondansetron HCl (Zofran Inj) 4 mg IVP Q6H PRN PRN Reason: Nausea/Vomiting Last Admin: 11/28/17 13:41 Dose: 4 mg Sildenafil Citrate (Revatio) 20 mg PO BID [facility] Last Admin: 12/05/17 18:35 Dose: 20 mg - Labs Labs: 12/05/17 06:00 12/05/17 06:00 PT 12.1 SECONDS (9.4-12.5) 11/26/17 18:00 INR 1.06 (0.93-1.08) 11/26/17 18:00 APTT 28.6 Seconds (25.1-36.5) 11/26/17 18:00 - Constitutional Appears: Non-toxic, Chronically Ill - Head Exam Head Exam: NORMAL INSPECTION - ENT Exam ENT Exam: Mucous Membranes Moist - Neck Exam Neck Exam: absent: Meningismus - Respiratory Exam Respiratory Exam: Decreased Breath Sounds - Cardiovascular Exam Cardiovascular Exam: +S1, +S2 - GI/Abdominal Exam GI & Abdominal Exam: Soft. absent: Tenderness Assessment and Plan - Assessment and Plan (Free Text) Plan: Assessment systemic inflammatory response syndrome, probable severe sepsis with hypoxic respiratory failure S/P VDRF, consider HCAP, new onset, right lower lobe on top of acute bronchitis chronic CHF end-stage COPD pulmonary HTN CAD dyslipidemia Plan on Zyvox and Merrem day 2 (and d/c Remeron since it may interact with Zyvox); CXR has improved and PCT is normal - blood cx are negative x 1 day - if negative may d/c antibiotics by tomorrow (patient had finished a 7 day course of Doxy and Merrem recently - would put patient at 10 days by tomorrow which would be adequate with the improvement in clinical parameters) will continue to monitor clinically
--- NOTE | 2017-12-06 12:12 | RAD ---
HISTORY: follow up COMPARISON: 12/05/2017 FINDINGS: LUNGS: No active pulmonary disease. PLEURA: No significant pleural effusion identified, no pneumothorax apparent. CARDIOVASCULAR: Normal. OSSEOUS STRUCTURES: No significant abnormalities. VISUALIZED UPPER ABDOMEN: Normal. OTHER FINDINGS: None. IMPRESSION: No active disease.
--- NOTE | 2017-12-06 12:27 | PN ---
DATE: SUBJECTIVE: I do think Shahida is starting to improve. She is getting out of bed. She is walking a couple of steps. She is eating a little bit better. Decrease in pain. PHYSICAL EXAMINATION VITAL SIGNS: A 97.3 temperature, 83 pulse, 115/52 blood pressure, 22 respiratory rate, and 92% O2 sat. HEENT: Head is atraumatic, normocephalic. HEART: Regular rate. LUNGS: Decreased breath sounds, but clear. ABDOMEN: Soft. EXTREMITIES: No edema. MEDICATIONS: She is currently taking Antivert, aspirin, DuoNebs. HOME MEDICATIONS: Lopressor, Lovenox, Merrem IV, Pulmicort, Revatio, Solu-Medrol down to 30 b.i.d., Tylenol, Xanax, Zofran, and Zyvox. LABORATORY DATA: She has a 6.8 white count, 9.9 hemoglobin, 272 platelets. She has a sodium 137, potassium 4.7, BUN 53, creatinine 0.7, GFR is greater than 60, sugar is 138, calcium is 9.2, total bilirubin is 0.4, AST is 29, ALT is 41, alkaline phosphatase 46, total protein is 5.3. ASSESSMENT AND PLAN: She is being seen by multiple doctors in the Intensive Care Unit, Infectious Disease, Cardiology, Pulmonology, [facility] [employer] Manager. She has exacerbation of severe chronic obstructive pulmonary disease, prerenal azotemia, stable angina, coronary artery disease, pulmonary hypertension. She has acute respiratory failure, intubated, extubated. She is weak and she probably needs more subacute rehab. She has pneumonia at one point, urinary tract infection. I will work on getting her discharge hopefully this Nigel Wheeler DO MTDOfelia
--- NOTE | 2017-12-06 20:38 | PN ---
DATE: 12/06/2017 CARDIOLOGY FOLLOWUP SUBJECTIVE: The patient's breathing has much improved. PHYSICAL EXAMINATION: VITAL SIGNS: Stable. NECK: Negative JVD. LUNGS: Without rales. HEART: Reveals S1, S2. EXTREMITIES: Without edema. LABORATORY DATA: Are noted. IMPRESSION: 1. Exacerbation of chronic obstructive pulmonary disease. 2. Infiltrate on x-ray may present atelectasis instead of pneumonia, would consider stopping antibiotics. 3. Coronary artery disease. 4. Stable angina. 5. Pulmonary hypertension. PLAN: Given these findings, the patient can be transferred to Med-Surg floor. Harrison Echavarria MD
[2017-12-07] MEDS: Albuterol-Ipratrop 3 mg / 0.5 (3 ml) UD IH SCH ×5 (01:13→19:10)
[2017-12-07] MEDS: Budesonide 0.5 mg/2 ml Inhal Susp UD IH SCH ×2 (07:40→19:10)
[2017-12-07] MEDS: Insulin Reg-MEDIUM-Coverage SC SCH ×4 (07:43→22:00)
[2017-12-07 08:06] LABS: HEMOGLOBIN 9.3 g/dL (12.0-16.0); MEAN CORPUSCULAR HEMOGLOBIN 30.7 pg (25.0-35.0); MEAN CORPUSCULAR HGB CONC 30.7 g/dl (31.0-37.0); MEAN PLATELET VOLUME 10.7 fl (7.0-11.0); RBC 3.03 10^6/uL (3.5-6.1); RED CELL DISTRIBUTION WIDTH 16.2 % (11.5-14.5); WHITE BLOOD COUNT 6.2 10^3/ul (4.5-11.0)
[2017-12-07 08:45] LABS: ALB/GLOB RATIO 1.1 (1.1-1.8); ALBUMIN 2.6 g/dL (3.0-4.8); ALT/SGPT 40 U/L (7-56); AST/SGOT 19 U/L (14-36); BLOOD UREA NITROGEN 43 mg/dL (7-21); CALCIUM 9.4 mg/dL (8.4-10.5); GFR AFRICAN-AMERICAN > 60; GFR NON-AFRICAN AMERICAN > 60
[2017-12-07] MEDS: RANEXA 1000 MG PO SCH ×2 (09:20→21:33)
[2017-12-07] MEDS: DEXILANT 60 MG PO SCH (09:20)
[2017-12-07] MEDS: Linezolid 600 mg in D5W 300 ml 600 MG/300 ML BAG IVPB SCH (09:24)
[2017-12-07] MEDS: MethylPREDNISolone 40 mg Vial IVP SCH ×2 (09:24→21:33)
[2017-12-07] MEDS: Enoxaparin 40 mg Syringe SC SCH (09:24)
[2017-12-07] MEDS: Sildenafil 20 MG TAB PO SCH ×2 (09:24→17:08)
--- NOTE | 2017-12-07 09:47 | PN ---
DATE: 12/07/2017 PULMONARY NOTE SUBJECTIVE: The patient appears comfortable this morning. She is not short of breath at rest. PHYSICAL EXAMINATION VITAL SIGNS: Temperature is 98.0, pulse is 70, respirations 18, blood pressure 132/73. Oxygen saturation on room air - 92%. Oxygen saturation on nasal cannula - 98%. HEENT: Normocephalic, atraumatic. No JVD. CARDIOVASCULAR: Systolic ejection murmur at the lower left sternal border. No S3 gallop. LUNGS: Decreased breath sounds at the bases. Less rhonchi. No wheezing. EXTREMITIES: Mild edema. No cyanosis, no clubbing. Calves are nontender to palpation. GI: Abdomen is soft, nontender and nondistended. Bowel sounds are positive. SKIN: No acute rash. NEUROLOGIC: Limited at the present time. IMPRESSION: 1. Status post respiratory failure. 2. Sepsis syndrome. 3. End-stage chronic obstructive pulmonary disease. 4. Urinary tract infection. 5. Pulmonary hypertension. 6. Coronary artery disease. PLAN: The patient appears comfortable this morning. She is not short of breath at rest. She is currently on BiPAP. She does state to feeling much better overall. I did discuss the case with the night nurse at length. The night nurse stated that the patient had a good night. On physical exam, the patient's bronchospasm continues to slowly resolve. I will continue the current nebulizer treatments and low-dose intravenous steroids for now. The patient also remains on Revatio - for her pulmonary hypertension. The patient remains on antibiotic therapy - as per Infectious Disease. There are no temperatures noted. There is no leukocytosis. I did note the last chest x-ray in yesterday's assessment. I also discussed the last chest x-ray with Dr. Eastman. Clinical status of the patient is certainly improved - compared to last week. However, again, unfortunately, the future status/prognosis for this patient does remain poor. I will discuss the above with Dr. Wheeler. Evgeny Briggs MD JOSEPH
--- NOTE | 2017-12-07 13:16 | PN ---
DATE: 12/07/2017 CARDIOLOGY FOLLOWUP SUBJECTIVE: The patient is awake and alert. No shortness of breath. OBJECTIVE: VITAL SIGNS: Blood pressure is 149/76, heart rates in the 80s. NECK: Negative JVD. LUNGS: Decreased breath sounds without rales. HEART: With S1, S2. EXTREMITIES: Without edema. LABORATORY DATA: Hemoglobin is 9.3. Chemistries; BUN and creatinine is 43 and 0.7, glucose is 132. IMPRESSION: 1. Exacerbation of chronic obstructive pulmonary disease, which is much improved. 2. No evidence for congestive heart failure. 3. Pulmonary hypertension. 4. Coronary artery disease. 5. Stable angina. 6. Weakness. PLAN: Given these findings, the patient will need extensive physical therapy. Her prerenal azotemia is improved. We will keep her off Lasix for now. Harrison Echavarria MD
[2017-12-07] MEDS: Meropenem IV 1 gm in NS 50 ML IVPB SCH (13:39)
--- NOTE | 2017-12-07 17:56 | CP.PCM.PN ---
Subjective - Date & Time of Evaluation Date of Evaluation: 12/07/17 Time of Evaluation: 11:50 - Subjective Subjective: Comfortable in bed, breathing better, no nausea, no diarrhea. Objective - Vital Signs/Intake and Output Vital Signs (last 24 hours): Temp Pulse Resp BP Pulse Ox 98 F 72 18 110/60 92 L 12/07/17 07:39 12/07/17 17:09 12/07/17 07:39 12/07/17 17:09 12/07/17 07:39 Intake and Output: 12/07/17 12/07/17 06:59 18:59 Intake Total 120 400 Output Total 100 250 Balance 20 150 - Medications Medications: Current Medications Acetaminophen (Tylenol 650 Mg Supp) 650 mg RC Q4H PRN PRN Reason: Fever >100.4 F Acetaminophen (Tylenol 325mg Tab) 650 mg PO Q4H PRN PRN Reason: Pain, moderate (4-7) Last Admin: 12/02/17 12:11 Dose: 650 mg Albuterol/Ipratropium (Duoneb 3 Mg/0.5 Mg (3 Ml) Ud) 3 ml IH [id number] [facility] Last Admin: 12/07/17 14:45 Dose: Not Given Albuterol/Ipratropium (Duoneb 3 Mg/0.5 Mg (3 Ml) Ud) 3 ml IH Q2H PRN PRN Reason: Shortness of Breath Last Admin: 12/02/17 16:05 Dose: 3 ml Alprazolam (Xanax) 0.5 mg PO Q4 PRN; Protocol PRN Reason: Anxiety Last Admin: 12/07/17 14:03 Dose: 0.5 mg Aspirin (Aspirin Chewable) 81 mg PO DAILY [facility] Last Admin: 12/07/17 09:24 Dose: 81 mg Budesonide (Pulmicort Respules) 0.5 mg IH [id number] [facility] Last Admin: 12/07/17 07:40 Dose: 0.5 mg Enoxaparin Sodium (Lovenox) 40 mg SC DAILY [facility] PRN Reason: Protocol Last Admin: 12/07/17 09:24 Dose: 40 mg Home Med (Home Med) 1 unit PO Q12 [facility] Last Admin: 12/07/17 09:20 Dose: 1 unit Home Med (Home Med) 1 unit PO ACB [facility] Last Admin: 12/07/17 09:20 Dose: 1 unit Insulin Human Regular (Humulin R Med) 0 units SC ACHS JEFFERY PRN Reason: Protocol Last Admin: 12/07/17 16:07 Dose: Not Given Meclizine HCl (Antivert) 12.5 mg PO BID PRN PRN Reason: Dizziness Last Admin: 12/03/17 17:31 Dose: 12.5 mg Methylprednisolone (Solu-Medrol) 30 mg IVP Q12 [facility] Last Admin: 12/07/17 09:24 Dose: 30 mg Metoprolol Tartrate (Lopressor) 12.5 mg PO BID [facility] Last Admin: 12/07/17 17:09 Dose: Not Given Ondansetron HCl (Zofran Inj) 4 mg IVP Q6H PRN PRN Reason: Nausea/Vomiting Last Admin: 11/28/17 13:41 Dose: 4 mg Sildenafil Citrate (Revatio) 20 mg PO BID [facility] Last Admin: 12/07/17 17:08 Dose: 20 mg - Labs Labs: 12/07/17 07:45 12/07/17 07:45 PT 12.1 SECONDS (9.4-12.5) 11/26/17 18:00 INR 1.06 (0.93-1.08) 11/26/17 18:00 APTT 28.6 Seconds (25.1-36.5) 11/26/17 18:00 - Constitutional Appears: Chronically Ill - Head Exam Head Exam: NORMAL INSPECTION - Respiratory Exam Respiratory Exam: Decreased Breath Sounds - Cardiovascular Exam Cardiovascular Exam: +S1, +S2 - GI/Abdominal Exam GI & Abdominal Exam: Soft. absent: Tenderness Assessment and Plan - Assessment and Plan (Free Text) Plan: Assessment systemic inflammatory response syndrome, probable severe sepsis with hypoxic respiratory failure S/P VDRF, consider HCAP, new onset, right lower lobe on top of acute bronchitis chronic CHF end-stage COPD pulmonary HTN CAD dyslipidemia Plan on Zyvox and Merrem day 3 (and d/c Remeron since it may interact with Zyvox); CXR has improved and PCT is normal - blood cx are negative - i may d/c antibiotics by tomorrow (patient had finished a 7 day course of Doxy and Merrem recently - would put patient at 10 days by today which would be adequate with the improvement in clinical parameters) will continue to monitor clinically
[2017-12-08] MEDS: Albuterol-Ipratrop 3 mg / 0.5 (3 ml) UD IH SCH ×4 (01:10→20:39)
--- NOTE | 2017-12-08 06:13 | PN ---
DATE: SUBJECTIVE: I saw Shahida at the Intensive Care Unit. She is now in room 572. She slept well last night. She is alert. She is hungry. She had 2-1/2 meals last night for dinner. She is attempting to go home with home help as opposed to rehab, she is not sure which she wants to do. She will talk it over with family. Otherwise, she is improving. Still a little short of breath on oxygen, but better. OBJECTIVE VITAL SIGNS: She has a 98 temperature, 70 pulse, 132/73 blood pressure, 18 respiratory rate and 92% O2 saturation on 3 liters nasal cannula. GENERAL: She is alert and oriented, talking, comfortable. HEENT: Head is atraumatic, normocephalic. Throat is moist. NECK: Supple. HEART: Regular rate. LUNGS: Decreased breath sounds bilaterally. ABDOMEN: Soft. EXTREMITIES: No edema. MEDICATIONS: She is currently on Antivert, aspirin, DuoNeb. Home medications: Insulin, Lopressor, Lovenox, Merrem IV, Pulmicort, Revatio, Solu-Medrol 30 mg IV q. 12h., Tylenol, Xanax, Zofran and Zyvox IV. DATA: She has a white count of 6.8, hemoglobin 9.9, hematocrit 32.8, platelets of 272,000. She has a 137 sodium, potassium 4.7, BUN 53, creatinine 0.7. Last blood sugar was 140. Calcium 9.2. Total bili is 0.4, AST is 29, ALT is 41, alkaline phosphatase 46, total protein is 5.3. She had many issues while she was here. She is being seen by Cardiology, Infectious Disease and Pulmonary. She has exacerbation of COPD, pulmonary hypertension, stable angina, coronary artery disease, atelectasis versus pneumonia on chest x-ray. She had acute respiratory distress, went on the ventilator, now off the ventilator. Now, she needs physical therapy. We will talk with Furniture Duster about discharge planning, although she is still on IV antibiotics and IV Solu-Medrol. Maybe, will go to subacute rehab before she goes home. Nigel Wheeler DO
[2017-12-08 07:18] LABS: HEMOGLOBIN 9.3 g/dL (12.0-16.0); MEAN CELL VOLUME 97.4 fl (80.0-105.0); MEAN CORPUSCULAR HEMOGLOBIN 30.2 pg (25.0-35.0); MEAN PLATELET VOLUME 11.2 fl (7.0-11.0); RBC 3.08 10^6/uL (3.5-6.1); RED CELL DISTRIBUTION WIDTH 16.3 % (11.5-14.5); WHITE BLOOD COUNT 7.5 10^3/ul (4.5-11.0)
[2017-12-08 07:46] LABS: ALB/GLOB RATIO 1.2 (1.1-1.8); ALBUMIN 2.6 g/dL (3.0-4.8); ALT/SGPT 39 U/L (7-56); AST/SGOT 20 U/L (14-36); BLOOD UREA NITROGEN 39 mg/dL (7-21); CALCIUM 9.4 mg/dL (8.4-10.5); GFR AFRICAN-AMERICAN > 60; GFR NON-AFRICAN AMERICAN > 60
[2017-12-08] MEDS: DEXILANT 60 MG PO SCH (08:15)
[2017-12-08] MEDS: Insulin Reg-MEDIUM-Coverage SC SCH ×4 (08:27→21:25)
[2017-12-08] MEDS: Budesonide 0.5 mg/2 ml Inhal Susp UD IH SCH ×2 (08:53→20:39)
[2017-12-08] MEDS: Sildenafil 20 MG TAB PO SCH ×2 (10:04→17:21)
[2017-12-08] MEDS: RANEXA 1000 MG PO SCH ×2 (10:04→21:57)
[2017-12-08] MEDS: Enoxaparin 40 mg Syringe SC SCH (10:07)
[2017-12-08] MEDS: MethylPREDNISolone 40 mg Vial IVP SCH ×2 (10:08→21:58)
--- NOTE | 2017-12-08 10:48 | PN ---
DATE: 12/08/2017 PULMONARY NOTE SUBJECTIVE: The patient appears very comfortable this morning. She is not short of breath at rest. She is awake and alert. PHYSICAL EXAMINATION VITAL SIGNS: Temperature is 98.4, pulse is 92, respirations 18/20, blood pressure 145/78. Oxygen saturation on nasal cannula is 95%. HEENT: Normocephalic, atraumatic. No JVD. CARDIOVASCULAR: Systolic ejection murmur at the lower left sternal border. No S3 gallop. LUNGS: Decreased breath sounds at the bases. Very minimal/less rhonchi. No wheezing. EXTREMITIES: Mild edema. No cyanosis, no clubbing. Calves are nontender to palpation. GI: Abdomen is soft, nontender and nondistended. Bowel sounds are positive. SKIN: No acute rash. NEUROLOGIC: Limited at the present time. IMPRESSION: 1. Status post respiratory failure. 2. Sepsis syndrome. 3. End-stage chronic obstructive pulmonary disease. 4. Urinary tract infection. 5. Pulmonary hypertension. 6. Coronary artery disease. PLAN: The patient appears very comfortable this morning. She is not short of breath at rest. She is awake and alert. She does state to feeling much better overall. On physical exam, her bronchospasm continues to resolve. In addition, there is no significant alveolar-arterial gradient. I will continue the current nebulizer treatments and decrease the intravenous steroids this morning. The patient also remains on her Revatio - for her pulmonary hypertension. The patient is now off antibiotic therapy - as per Infectious Disease. Input by Dr. Law is noted. There are no temperatures noted. There is no leukocytosis. Clinical status of the patient is significantly improved - compared to the initial presentation. However, again, unfortunately, the future status/prognosis for this deisy patient does remain poor. I will discuss the above with Dr. Wheeler. Evgeny Briggs MD MTDOfelia
--- NOTE | 2017-12-08 10:50 | PN ---
DATE: SUBJECTIVE: I saw her in bed this morning. She told me she slept fair, not as good as the other day. She is trying to eat better. She is on Antivert, aspirin, DuoNebs. HOME MEDICATIONS: Insulin, Lopressor, Lovenox, Pulmicort, Revatio, Solu-Medrol still on 30 mg IV every 12 hours as per Pulmonary, Tylenol, Xanax and Zofran. OBJECTIVE VITAL SIGNS: Temperature 98.4, pulse 92, blood pressure 145/78, respiratory rate 20, 95% O2 saturation on nasal cannula. HEENT: Head is atraumatic, normocephalic. HEART: Regular rate. LUNGS: Decreased breath sounds, but clear. ABDOMEN: Soft. EXTREMITIES: No edema. LABORATORY DATA: She has a 7.5 white count, 9.3 hemoglobin, 30 hematocrit with 255,000 platelets. Sodium 136, potassium 4.8, BUN is 39, creatinine 0.6. GFR is greater than 60. Sugar is 140. Calcium is 9.4, total bilirubin is 0.3, AST is 20, ALT is 39, alkaline phosphatase 43, total protein is 4.9. She had many reasons to be in the hospital: SIRS, acute respiratory failure, pneumonia, CAD. She is being seen by multiple doctors: Infectious Disease, Cardiology, Pulmonary. She has systemic inflammatory response, probably severe sepsis, hypoxemia, status post intubation and extubation, right lower lobe pneumonia, chronic CHF, end-stage COPD, pulmonary hypertension, CAD, hyperlipidemia. She is on Merrem IV. She is on IV Solu-Medrol. I will discuss with the Household Manager and Case Management about discharge plans and when I can get her off the IV Solu-Medrol. I will discuss this with Pulmonary. Physical Therapy is recommended, saw her again; she came back from twice. I will check her labs. Nigel Wheeler DO MTDD
--- NOTE | 2017-12-08 16:33 | CP.PCM.PN ---
Subjective - Date & Time of Evaluation Date of Evaluation: 12/08/17 Time of Evaluation: 12:20 - Subjective Subjective: Comfortable in bed, no fevers, breathing a little better, cough is better. Objective - Vital Signs/Intake and Output Vital Signs (last 24 hours): Temp Pulse Resp BP Pulse Ox 98.4 F 85 20 138/89 95 12/08/17 06:00 12/08/17 10:05 12/08/17 06:00 12/08/17 10:05 12/08/17 06:00 Intake and Output: 12/08/17 12/08/17 06:59 18:59 Intake Total 880 Output Total 400 Balance 480 - Medications Medications: Current Medications Acetaminophen (Tylenol 650 Mg Supp) 650 mg RC Q4H PRN PRN Reason: Fever >100.4 F Acetaminophen (Tylenol 325mg Tab) 650 mg PO Q4H PRN PRN Reason: Pain, moderate (4-7) Last Admin: 12/08/17 05:36 Dose: 650 mg Albuterol/Ipratropium (Duoneb 3 Mg/0.5 Mg (3 Ml) Ud) 3 ml IH [id number] [facility] Last Admin: 12/08/17 08:53 Dose: 3 ml Albuterol/Ipratropium (Duoneb 3 Mg/0.5 Mg (3 Ml) Ud) 3 ml IH Q2H PRN PRN Reason: Shortness of Breath Last Admin: 12/02/17 16:05 Dose: 3 ml Alprazolam (Xanax) 0.5 mg PO Q4 PRN; Protocol PRN Reason: Anxiety Last Admin: 12/07/17 14:03 Dose: 0.5 mg Aspirin (Aspirin Chewable) 81 mg PO DAILY [facility] Last Admin: 12/08/17 10:04 Dose: 81 mg Budesonide (Pulmicort Respules) 0.5 mg IH [id number] [facility] Last Admin: 12/08/17 08:53 Dose: 0.5 mg Enoxaparin Sodium (Lovenox) 40 mg SC DAILY [facility] PRN Reason: Protocol Last Admin: 12/08/17 10:07 Dose: 40 mg Home Med (Home Med) 1 unit PO Q12 [facility] Last Admin: 12/08/17 10:04 Dose: 1 unit Home Med (Home Med) 1 unit PO ACB [facility] Last Admin: 12/08/17 08:15 Dose: 1 unit Insulin Human Regular (Humulin R Med) 0 units SC ACHS [facility] PRN Reason: Protocol Last Admin: 12/08/17 08:27 Dose: Not Given Meclizine HCl (Antivert) 12.5 mg PO BID PRN PRN Reason: Dizziness Last Admin: 12/03/17 17:31 Dose: 12.5 mg Methylprednisolone (Solu-Medrol) 20 mg IVP Q12 [facility] Last Admin: 12/08/17 10:08 Dose: 20 mg Metoprolol Tartrate (Lopressor) 12.5 mg PO BID [facility] Last Admin: 12/08/17 10:05 Dose: 12.5 mg Ondansetron HCl (Zofran Inj) 4 mg IVP Q6H PRN PRN Reason: Nausea/Vomiting Last Admin: 11/28/17 13:41 Dose: 4 mg Sildenafil Citrate (Revatio) 20 mg PO BID [facility] Last Admin: 12/08/17 10:04 Dose: 20 mg - Labs Labs: 12/08/17 06:30 12/08/17 06:30 PT 12.1 SECONDS (9.4-12.5) 11/26/17 18:00 INR 1.06 (0.93-1.08) 11/26/17 18:00 APTT 28.6 Seconds (25.1-36.5) 11/26/17 18:00 - Constitutional Appears: Chronically Ill - Head Exam Head Exam: NORMAL INSPECTION - ENT Exam ENT Exam: Mucous Membranes Moist - Respiratory Exam Respiratory Exam: Decreased Breath Sounds - Cardiovascular Exam Cardiovascular Exam: +S1, +S2 - GI/Abdominal Exam GI & Abdominal Exam: Soft. absent: Tenderness Assessment and Plan - Assessment and Plan (Free Text) Plan: Assessment systemic inflammatory response syndrome, S/P severe sepsis with hypoxic respiratory failure S/P VDRF, consider HCAP, new onset, right lower lobe on top of acute bronchitis chronic CHF end-stage COPD pulmonary HTN CAD dyslipidemia Plan continue to monitor off antibiotics since she is at risk for infection - completed 10 days of therapy
--- NOTE | 2017-12-08 16:44 | PN ---
DATE: 12/08/2017 CARDIOLOGY FOLLOWUP SUBJECTIVE: The patient is without shortness of breath, resting in bed. PHYSICAL EXAMINATION VITAL SIGNS: Blood pressure is 138/90, the heart rate is in the 80s. NECK: Negative JVD. LUNGS: Decreased breath sounds without rales. HEART: Reveals S1, S2. EXTREMITIES: Without edema. LABORATORY DATA: Hemoglobin is 9.3. Chemistries: BUN and creatinine is 39 and 0.6. IMPRESSION: 1. Resolution of respiratory compromise. 2. Stable angina. 3. Chronic obstructive pulmonary disease. 4. Pulmonary hypertension. 5. Coronary artery disease. PLAN: Given these findings, the patient is doing well. Her long-term prognosis is poor. The patient is scheduled for continued physical therapy. Harrison Echavarria MD
[2017-12-09] MEDS: MethylPREDNISolone 40 mg Vial IVP SCH (00:16)
[2017-12-09] MEDS: Albuterol-Ipratrop 3 mg / 0.5 (3 ml) UD IH SCH ×4 (01:46→21:10)
[2017-12-09] MEDS: Budesonide 0.5 mg/2 ml Inhal Susp UD IH SCH ×2 (07:27→21:10)
[2017-12-09 07:36] LABS: HEMOGLOBIN 9.3 g/dL (12.0-16.0); MEAN CELL VOLUME 98.7 fl (80.0-105.0); MEAN CORPUSCULAR HEMOGLOBIN 30.5 pg (25.0-35.0); MEAN CORPUSCULAR HGB CONC 30.9 g/dl (31.0-37.0); MEAN PLATELET VOLUME 10.8 fl (7.0-11.0); RBC 3.05 10^6/uL (3.5-6.1); RED CELL DISTRIBUTION WIDTH 16.9 % (11.5-14.5); WHITE BLOOD COUNT 6.4 10^3/ul (4.5-11.0)
[2017-12-09] MEDS: Insulin Reg-MEDIUM-Coverage SC SCH ×4 (07:51→21:38)
[2017-12-09 08:03] LABS: ALB/GLOB RATIO 1.2 (1.1-1.8); ALBUMIN 2.6 g/dL (3.0-4.8); ALT/SGPT 40 U/L (7-56); AST/SGOT 25 U/L (14-36); BLOOD UREA NITROGEN 33 mg/dL (7-21); CALCIUM 9.4 mg/dL (8.4-10.5); GFR AFRICAN-AMERICAN > 60; GFR NON-AFRICAN AMERICAN > 60
--- NOTE | 2017-12-09 08:12 | PN ---
DATE: PULMONARY NOTE SUBJECTIVE: The patient appears very comfortable this morning. She is not short of breath at rest. OBJECTIVE VITAL SIGNS: Temperature is 97.4, pulse 75, respirations 18/20, blood pressure 109/57. Oxygen saturation on nasal cannula is 96%-100%. HEENT: Normocephalic, atraumatic. NECK: No JVD. CARDIOVASCULAR: Systolic ejection murmur at the lower left sternal border. No S3 gallop. LUNGS: Decreased breath sounds at the bases. Very minimal rhonchi. No wheezing. EXTREMITIES: Mild edema. No cyanosis, no clubbing. Calves are nontender to palpation. GASTROINTESTINAL: Abdomen is soft, nontender and nondistended. Bowel sounds are positive. SKIN: No acute rash. NEUROLOGIC: Exam limited at the present time. IMPRESSION 1. Status post respiratory failure. 2. Sepsis syndrome. 3. End-stage chronic obstructive pulmonary disease. 4. Urinary tract infection. 5. Pulmonary hypertension. 6. Coronary artery disease. PLAN: The patient appears very comfortable this morning. She is not short of breath at rest. She is awake and alert. She states to feeling much better overall. On physical exam, her bronchospasm continues to slowly resolve. In addition, the oxygen saturation on nasal cannula is now 96-100%. I will continue with the current nebulizer treatments and change to oral steroids this morning. The patient also remains on Revatio - for her pulmonary hypertension. The patient remains off antibiotic therapy. Input by Dr. Law is noted. There are no temperatures noted. There is no leukocytosis. Input by Dr. Echavarria (Cardiology) is also noted. Clinical status of the patient is significantly improved - compared to last week. However, again, unfortunately, the overall status/prognosis for this deisy patient remains poor. All are aware. I will discuss the above with Dr. Wheeler. Evgeny Briggs MD MTDOfelia
[2017-12-09] MEDS: DEXILANT 60 MG PO SCH (10:02)
[2017-12-09] MEDS: Enoxaparin 40 mg Syringe SC SCH (10:07)
[2017-12-09] MEDS: Sildenafil 20 MG TAB PO SCH ×2 (10:11→17:30)
[2017-12-09] MEDS: RANEXA 1000 MG PO SCH ×2 (10:12→21:39)
--- NOTE | 2017-12-09 13:38 | PN ---
DATE: 12/09/2017 I am waiting for the insurance company to let us know if she could be transferred back to [facility]. She slept well last night. She has been in and out of the confusion from time to time. Presently, she is alert and comfortable. She had a panic attack yesterday and had to get Xanax medicated for her. She is on Antivert, aspirin, DuoNebs. Home medications: Insulin, Lopressor, Lovenox, prednisone on 30 mg, Pulmicort, Revatio, Tylenol, Xanax and Zofran. Positive appetite, trying physical therapy. She had a bad moment the other day, but she is doing better this morning. OBJECTIVE: VITAL SIGNS: She has a 98.4 temperature, 67 pulse, 131/76 blood pressure, 20 respiratory rate, 96% O2 saturation on room air. HEENT: Head is atraumatic. Throat is moist. GENERAL: She is alert and comfortable. Slept well. NECK: Supple. HEART: Regular rate. LUNGS: Decreased breath sounds, but clear. ABDOMEN: Soft. EXTREMITIES: No edema. DATA: She has a 6.4 white count, 9.3 hemoglobin, 30.1 hematocrit with 245,000 platelets. She has a 138 sodium, potassium 4.9, BUN 33, creatinine 0.7, GFR is greater than 60, sugar is 89, calcium is 9.4. Total bili is 0.5, AST is 25, ALT is 40, alkaline phosphatase 45, total protein is 4.9. She is being seen by Pulmonary, Infectious Disease, Cardiology. She is doing overall better than when she came in. She had severe COPD; pulmonary hypertension; SIRS; hypoxic acute respiratory distress, intubated, extubated; right lower lobe pneumonia; CHF; CAD. Hopefully, we could discharge her back to [facility] today. I will discuss with the other physicians. Nigel Wheeler DO MTDOfelia
--- NOTE | 2017-12-09 14:16 | CP.PCM.PN ---
Subjective - Date & Time of Evaluation Date of Evaluation: 12/09/17 Time of Evaluation: 12:40 - Subjective Subjective: Breathing better, comfortable in bed, no fevers. Objective - Vital Signs/Intake and Output Vital Signs (last 24 hours): Temp Pulse Resp BP Pulse Ox 98.4 F 80 20 134/74 96 12/09/17 08:00 12/09/17 10:08 12/09/17 08:00 12/09/17 10:08 12/09/17 08:00 Intake and Output: 12/09/17 12/09/17 06:59 18:59 Intake Total 780 Output Total 600 Balance 180 - Medications Medications: Current Medications Acetaminophen (Tylenol 650 Mg Supp) 650 mg RC Q4H PRN PRN Reason: Fever >100.4 F Acetaminophen (Tylenol 325mg Tab) 650 mg PO Q4H PRN PRN Reason: Pain, moderate (4-7) Last Admin: 12/09/17 10:09 Dose: 650 mg Albuterol/Ipratropium (Duoneb 3 Mg/0.5 Mg (3 Ml) Ud) 3 ml IH [id number] [facility] Last Admin: 12/09/17 07:27 Dose: 3 ml Albuterol/Ipratropium (Duoneb 3 Mg/0.5 Mg (3 Ml) Ud) 3 ml IH Q2H PRN PRN Reason: Shortness of Breath Last Admin: 12/02/17 16:05 Dose: 3 ml Alprazolam (Xanax) 0.5 mg PO Q4 PRN; Protocol PRN Reason: Anxiety Last Admin: 12/09/17 10:10 Dose: 0.5 mg Aspirin (Aspirin Chewable) 81 mg PO DAILY [facility] Last Admin: 12/09/17 10:10 Dose: 81 mg Budesonide (Pulmicort Respules) 0.5 mg IH [id number] [facility] Last Admin: 12/09/17 07:27 Dose: 0.5 mg Enoxaparin Sodium (Lovenox) 40 mg SC DAILY [facility] PRN Reason: Protocol Last Admin: 12/09/17 10:07 Dose: 40 mg Home Med (Home Med) 1 unit PO Q12 [facility] Last Admin: 12/09/17 10:12 Dose: 1 unit Home Med (Home Med) 1 unit PO ACB [facility] Last Admin: 12/09/17 10:02 Dose: Not Given Insulin Human Regular (Humulin R Med) 0 units SC ACHS [facility] PRN Reason: Protocol Last Admin: 12/09/17 07:51 Dose: Not Given Meclizine HCl (Antivert) 12.5 mg PO BID PRN PRN Reason: Dizziness Last Admin: 12/03/17 17:31 Dose: 12.5 mg Metoprolol Tartrate (Lopressor) 12.5 mg PO BID [facility] Last Admin: 12/09/17 10:08 Dose: 12.5 mg Ondansetron HCl (Zofran Inj) 4 mg IVP Q6H PRN PRN Reason: Nausea/Vomiting Last Admin: 11/28/17 13:41 Dose: 4 mg Prednisone (Prednisone Tab) 30 mg PO DAILY [facility] Last Admin: 12/09/17 10:10 Dose: 30 mg Sildenafil Citrate (Revatio) 20 mg PO BID [facility] Last Admin: 12/09/17 10:11 Dose: 20 mg - Labs Labs: 12/09/17 06:30 12/09/17 06:30 PT 12.1 SECONDS (9.4-12.5) 11/26/17 18:00 INR 1.06 (0.93-1.08) 11/26/17 18:00 APTT 28.6 Seconds (25.1-36.5) 11/26/17 18:00 - Constitutional Appears: Chronically Ill - Head Exam Head Exam: NORMAL INSPECTION - Respiratory Exam Respiratory Exam: Decreased Breath Sounds - Cardiovascular Exam Cardiovascular Exam: +S1, +S2 - GI/Abdominal Exam GI & Abdominal Exam: Soft. absent: Tenderness Assessment and Plan - Assessment and Plan (Free Text) Plan: Assessment S/P systemic inflammatory response syndrome, S/P severe sepsis with hypoxic respiratory failure S/P VDRF, S/P HCAP, new onset, right lower lobe on top of acute bronchitis chronic CHF end-stage COPD pulmonary HTN CAD dyslipidemia Plan continue to monitor off antibiotics since she is at high risk for aspiration and infection - completed 10 days of therapy
--- NOTE | 2017-12-09 14:25 | PN ---
DATE: 12/09/2017 CARDIOLOGY FOLLOWUP SUBJECTIVE: The patient is complaining of mild cough today. PHYSICAL EXAMINATION VITAL SIGNS: Blood pressure is 134/78, the heart rate is in the 80s. NECK: Negative JVD. LUNGS: Bilateral rhonchi. HEART: Reveals S1 and S2. EXTREMITIES: Without edema. LABORATORY DATA: Hemoglobin is 9.3. Chemistries: BUN and creatinine is 33 and 0.7. IMPRESSION: 1. Severe chronic obstructive pulmonary disease. 2. Bronchitis. 3. Coronary artery disease. 4. Stable angina. 5. Prerenal azotemia. 6. Pulmonary hypertension. PLAN: Given these findings, the patient's prerenal azotemia is improved. We will restart her on low-dose Lasix. Harrison Echavarria MD
[2017-12-09] MEDS: Albuterol-Ipratrop 3 mg / 0.5 (3 ml) UD IH PRN (17:31)
[2017-12-10] MEDS: Albuterol-Ipratrop 3 mg / 0.5 (3 ml) UD IH SCH ×2 (02:20→07:47)
[2017-12-10] MEDS: Budesonide 0.5 mg/2 ml Inhal Susp UD IH SCH (07:47)
[2017-12-10] MEDS: Insulin Reg-MEDIUM-Coverage SC SCH ×2 (08:05→11:45)
[2017-12-10] MEDS: DEXILANT 60 MG PO SCH ×2 (08:07→10:28)
[2017-12-10 08:47] VITALS: BP 148/82; PULSE 82; RESP 20; TEMP 97.4; O2SAT 99
[2017-12-10] MEDS: RANEXA 1000 MG PO SCH (10:29)
--- NOTE | 2017-12-10 10:29 | PN ---
DATE: 12/10/2017 PULMONARY NOTE SUBJECTIVE: The patient appears comfortable this morning. She is not short of breath at rest. PHYSICAL EXAMINATION VITAL SIGNS: (Last noted in the computer): Temperature is 97.8, pulse 84, respirations 18, blood pressure 108/61. Oxygen saturation on nasal cannula is 95%. HEENT: Normocephalic, atraumatic. No JVD. CARDIOVASCULAR: Systolic ejection murmur at the lower left sternal border. No S3 gallop. LUNGS: Decreased breath sounds at the bases. Minimal/less rhonchi. No wheezing. EXTREMITIES: Mild edema. No cyanosis, no clubbing. Calves are nontender to palpation. GI: Abdomen is soft, nontender and nondistended. Bowel sounds are positive. SKIN: No acute rash. NEUROLOGIC: Limited at the present time. IMPRESSION: 1. Status post respiratory failure. 2. Sepsis syndrome. 3. End-stage chronic obstructive pulmonary disease. 4. Urinary tract infection. 5. Pulmonary hypertension. 6. Coronary artery disease. PLAN: The patient appears comfortable this morning. She is not short of breath at rest. She is awake and alert. She does state to feeling better this morning. I also discussed the case with the night nurse at length. The night nurse confirms that the patient had a very good night. The night nurse also confirms that she has not observed any significant coughing in this patient. On physical exam, her bronchospasm is minimal at this point in time. In addition, there is no significant alveolar-arterial gradient. I will continue the current nebulizer treatments and oral steroids for now. The patient also remains on her Revatio - for her pulmonary hypertension. The clinical status of the patient is significantly improved - compared to the initial presentation. The patient's discharge was held yesterday - as the patient was noted to be coughing more late morning. Today, she feels much better, and is ready to go back to subacute rehab. I will discuss the above with Dr. Wheeler. Evgeny Briggs MD JOSEPH
[2017-12-10] MEDS: Enoxaparin 40 mg Syringe SC SCH (10:31)
[2017-12-10] MEDS: Sildenafil 20 MG TAB PO SCH (10:33)
--- NOTE | 2017-12-10 11:23 | RAD ---
HISTORY: cough COMPARISON: Portable chest 12/06/2017. FINDINGS: LUNGS: Chronic interstitial pulmonary disease is reiterated with improved inspiratory volume noted currently. No definite alveolitis identified bilaterally. PLEURA: No significant pleural effusion identified, no pneumothorax apparent. CARDIOVASCULAR: Normal. OSSEOUS STRUCTURES: No significant abnormalities. VISUALIZED UPPER ABDOMEN: Normal. OTHER FINDINGS: None. IMPRESSION: Reiteration of chronic interstitial pulmonary disease no acute alveolitis, pleural effusion or pneumothorax bilaterally. No pulmonary vascular derangement.
--- NOTE | 2017-12-10 17:47 | PN ---
DATE: SUBJECTIVE: The patient seen this morning in room 572, bed 2. No fevers and chills. No nausea. PHYSICAL EXAMINATION: VITAL SIGNS: On exam, temperature is 97, blood pressure is 140/80, respiratory rate of 18. HEENT: Unremarkable. NECK: Supple. LUNGS: Have decreased breath sounds. HEART: Normal S1 and S2. ABDOMEN: Soft. LABORATORY DATA: Reveals a white count of 6.4, hemoglobin of 9, platelets of 245. Chemistries reveals a BUN of 33, creatinine of 0.7. Procalcitonin is noted, and urinalysis is noted. Serology is negative, and microbiology is noted. ASSESSMENT AND PLAN: This is a 82-year-old female who was seen in 572, bed 2, much improved, with systemic inflammatory response syndrome status post severe sepsis and hypoxic respiratory failure, vent dependent respiratory failure, healthcare-associated pneumonia, new onset of a right lower lobe acute bronchitis, chronic congestive heart failure, end-stage chronic obstructive lung disease, pulmonary hypertension, coronary artery disease, dyslipidemia; currently is completing the antibiotic therapy 10 days as of now. Review of medications reveals the patient to be off of antibiotics. The patient is on prednisone. The patient is at risk for developing nosocomial infections. Case discussed with Dr. Nigel Wheeler. Dr. Briggs's note is appreciated. We will follow with you. Jose Eastman MD
--- NOTE | 2017-12-11 02:02 | DS ---
HOSPITAL COURSE: I saw Shahida this morning. She was resting in bed. She said she slept well. Her lungs sounded congested a little bit to me today more than yesterday. I am ordering a stat chest x-ray. If the chest x-ray shows clear, I will send her to [facility] for further physical therapy and treatment. I discussed with Pulmonary and they felt that she could be discharged today to make sure I am not missing anything in the lungs before she is discharged. She is being seen by Infectious Disease, Cardiology, and Pulmonology. Overall, she is feeling better. She is here for systemic inflammatory response syndrome, status post severe sepsis; hypoxemia; respiratory failure, status post ventilator; possible community-acquired pneumonia, new onset in right lower lobe; chronic CHF; end-stage COPD; pulmonary hypertension, severe; and we will see how we can do with physical therapy. She is currently on Antivert, aspirin, and DuoNebs. Home meds: Lopressor, Lovenox, prednisone, Pulmicort, Revatio, Tylenol, Xanax, and Zofran. Hopefully, the chest x-ray will be clean. Overall, she is improved. I am going to continue with aggressive treatment and care if she passes with a chest x-ray this morning. Nigel Wheeler DO MTDD
== END 2017-12-10 16:31 | DRG 584 ==
LOC: ED 17:40 → ERH 19:08 → 3RSO 20:43 → CCU 11-28 22:20 → 5RSO 12-06 16:51
PROVIDERS: ADMIT Family Medicine; ATTEND Family Medicine
PROC: 5A1935Z Respiratory Ventilation, Less than 24 Consecutive Hours (ICD-10-PCS; principal; 2017-11-29)
PROC: 0BH18EZ Insertion of Endotracheal Airway into Trachea, Via Natural or Artificial Opening Endoscopic (ICD-10-PCS; 2017-11-29)
PROC: 5A1935Z Respiratory Ventilation, Less than 24 Consecutive Hours (ICD-10-PCS; 2017-11-30)
DX: A41.9 Sepsis, unspecified organism (principal); J96.21 Acute and chronic respiratory failure with hypoxia; J18.9 Pneumonia, unspecified organism; I11.0 Hypertensive heart disease with heart failure; E87.5 Hyperkalemia; J44.0 Chronic obstructive pulmonary disease with (acute) lower respiratory infection; I27.21 Secondary pulmonary arterial hypertension; I50.9 Heart failure, unspecified; I08.2 Rheumatic disorders of both aortic and tricuspid valves; K57.92 Diverticulitis of intestine, part unspecified, without perforation or abscess without bleeding; J96.22 Acute and chronic respiratory failure with hypercapnia; J44.1 Chronic obstructive pulmonary disease with (acute) exacerbation; K90.0 Celiac disease; N39.0 Urinary tract infection, site not specified; R65.10 Systemic inflammatory response syndrome (SIRS) of non-infectious origin without acute organ dysfunction; D63.8 Anemia in other chronic diseases classified elsewhere; E11.9 Type 2 diabetes mellitus without complications; E78.00 Pure hypercholesterolemia, unspecified; J20.9 Acute bronchitis, unspecified; E78.5 Hyperlipidemia, unspecified; F32.89 Other specified depressive episodes; F40.240 Claustrophobia; F41.0 Panic disorder [episodic paroxysmal anxiety]; I25.118 Atherosclerotic heart disease of native coronary artery with other forms of angina pectoris; K21.9 Gastro-esophageal reflux disease without esophagitis; K59.00 Constipation, unspecified; M19.90 Unspecified osteoarthritis, unspecified site; M81.0 Age-related osteoporosis without current pathological fracture; M94.0 Chondrocostal junction syndrome [Tietze]; N64.4 Mastodynia; Z88.1 Allergy status to other antibiotic agents; Z88.5 Allergy status to narcotic agent; Z86.711 Personal history of pulmonary embolism; Z87.440 Personal history of urinary (tract) infections; Z87.891 Personal history of nicotine dependence; Z90.49 Acquired absence of other specified parts of digestive tract; Z95.5 Presence of coronary angioplasty implant and graft; Z99.81 Dependence on supplemental oxygen; Z78.1 Physical restraint status

== ENCOUNTER 2017-12-12 06:14 | Inpatient (IN) | payer MEDICARE, MEDICAID ==
[2017-12-12 06:21] VITALS: BMI 23.6
--- NOTE | 2017-12-12 06:24 | ED PDOC ---
Arrival/HPI - General Historian: Correction, EMS EM Caveat: Altered Mental Status - History of Present Illness Time/Duration: Prior to Arrival Symptom Course: Worsening - General Chief Complaint: Shortness Of Breath Time Seen by Provider: 12/12/17 06:22 - History of Present Illness Narrative History of Present Illness (Text): 12/12/17 06:29 Patient is a 82F with a PMH of COPD, CHF who comes to the ED from alf after she was found to be lethargic and SOB. On presentation she is on nonrebreather. EMS was unable to start a line peripherally. No other history was able to be obtained at this time. Her baseline is unknown at this time. (Ángel Naik) Past Medical History - Infectious Disease Hx of Infectious Diseases: None - Tetanus Immunization Tetanus Immunization: Unknown - Cardiac Hx Cardiac Disorders: Yes (mi, CP) Hx Congestive Heart Failure: Yes Hx Hypertension: Yes - Pulmonary Hx Chronic Obstructive Pulmonary Disease (COPD): Yes - Neurological Hx Neurological Disorder: Yes Hx Dizziness: Yes - HEENT Hx HEENT Disorder: Yes Hx Cataracts: Yes (b/l no sx) - Renal Hx Renal Disorder: No - Endocrine/Metabolic Hx Endocrine Disorders: No - Hematological/Oncological Hx Anemia: Yes (blood transfusion) Hx Shingles: (pt denies having shingles) - Integumentary Hx Dermatological Disorder: Yes Other/Comment: 1cm x 1cm small opening at butt crack, above that 0.5cm x 0.2cm small opening, right buttock cheek pinpoint opening and redness - Musculoskeletal/Rheumatological Hx Arthritis: Yes - Gastrointestinal Hx Gastrointestinal Disorders: Yes (exploratry lap with 2 inches of bowel resected) Hx Diverticulitis: Yes Hx Gall Bladder Disease: Yes (CHLOECYSTECTOMY) Hx Gastroesophageal Reflux: Yes Other/Comment: celiac disease, umbilical hernia - Genitourinary/Gynecological Hx Genitourinary Disorders: Yes Hx Incontinence: Yes Hx Urinary Tract Infection: Yes - Psychiatric Hx Anxiety: Yes Hx Panic Disorder: Yes Hx Substance Use: No - Surgical History Hx Appendectomy: Yes Hx Cardiac Catheterization: Yes Hx Cholecystectomy: Yes Hx Coronary Stent: Yes (x2 ptca) Other/Comment: ovarian cystectomy, exp lap 2" bowel resected, sx for obstruction , norma picc - Anesthesia Hx Anesthesia: Yes Hx Anesthesia Reactions: No Hx Malignant Hyperthermia: No - Suicidal Assessment Feels Threatened In Home Enviroment: No Family/Social History Family/Social History: Unknown Family HX Smoking Status: Former Smoker Hx Alcohol Use: No Hx Substance Use: No Hx Substance Use Treatment: No Allergies/Home Meds Allergies/Adverse Reactions: Allergies morphine Allergy (Verified 12/12/17 06:32) VOMITING codeine Adverse Reaction (Verified 12/12/17 06:32) VOMITING hydromorphone HCl [From Dilaudid] Adverse Reaction (Verified 12/12/17 06:32) VOMITING MYOCINS Adverse Reaction (Uncoded 12/12/17 06:32) VOMITING Home Medications: Home Meds Medication Instructions Recorded Confirmed Dexlansoprazole [Dexilant] 60 mg PO DAILY 01/19/16 11/26/17 ALPRAZolam [Xanax] 0.5 mg PO Q4 PRN 11/26/17 11/26/17 Meclizine HCl 12.5 mg PO Q6 PRN 11/26/17 11/26/17 Mirtazapine [Remeron] 7.5 mg PO HS 11/26/17 11/26/17 predniSONE [predniSONE Tab] 10 mg PO DAILY 11/26/17 11/26/17 Review of Systems - Review of Systems Systems not reviewed;Unavailable: Altered Mental Status Physical Exam - Physical Exam Physical Exam Limitations: Altered Mental Status Vital Signs Reviewed: Yes Temperature: Afebrile Blood Pressure: Normal Pulse: Regular Respiratory Rate: Tachypneic Appearance: Positive for: Ill-Appearing Mental Status: Positive for: Lethargic - Systems Exam Head: Present: Atraumatic, Normocephalic Pupils: Present: PERRL Conjunctiva: Present: Normal Mouth: Present: Moist Mucous Membranes Respiratory/Chest: Present: Rales (bilateral LL), Rhonchi (scattered rhonchi) Cardiovascular: Present: Regular Rate and Rhythm, Normal S1, S2. No: Murmurs Abdomen: Present: Normal Bowel Sounds. No: Tenderness, Distention, Peritoneal Signs Upper Extremity: Present: Normal Inspection. No: Cyanosis, Edema Lower Extremity: Present: Normal Inspection. No: Edema Skin: Present: Warm, Dry, Normal Color. No: Rashes Vital Signs Temp Pulse Resp BP Pulse Ox 12/12/17 06:57 102 H 24 100/72 92 L 12/12/17 06:49 100/78 12/12/17 06:26 22 100 12/12/17 06:15 98.6 F 102 H 22 / 98 Medical Decision Making ED Course and Treatment: 12/12/17 06:35 patient is lethargic, SOB, unable to obtain further history -cbc, cmp, cardiac iso, ekg, cxr -solumedrol 125, duonebs (Ángel Naik) 12/12/17 07:00 Pt. seen with spanish medical interpreter initially.Management and treatment plan made.Case endorsed to at this time. (Jak Ron) - Lab Interpretations Lab Results: 12/12/17 06:40 Lab Results 12/12/17 06:40: WBC 9.3 D, RBC 3.01 L, Hgb 9.1 L, Hct 29.6 L, MCV 98.3, MCH 30.2, MCHC 30.7 L, RDW 17.7 H, Plt Count 224, MPV 10.7, Gran % 85.2 H, Lymph % ( Auto) 7.7 L, Hendricks % (Auto) 5.2, Eos % (Auto) 1.8, Baso % (Auto) 0.1, Gran # 7.92 H, Lymph # (Auto) 0.7 L, Hendricks # (Auto) 0.5, Eos # (Auto) 0.2, Baso # (Auto ) 0.01 - RAD Interpretation Radiology Orders: 12/12/17 06:23 CHEST PORTABLE [RAD] Stat - Medication Orders Current Medication Orders: Azithromycin (Zithromax 500mg In Ns) 500 mg in 250 mls @ 167 mls/hr IVPB STAT STA PRN Reason: Protocol Stop: 12/12/17 08:41 Discontinued Medications Furosemide (Lasix) 40 mg IVP STAT STA Stop: 12/12/17 06:26 Last Admin: 12/12/17 06:49 Dose: 40 mg MAR Blood Pressure Document 12/12/17 06:49 JOL (Rec: 12/12/17 06:49 [id number] [id number]) Blood Pressure Blood Pressure (100/60-150/90) IVP Administration Document 12/12/17 06:49 JOL (Rec: 12/12/17 06:49 JOL [id number]) Charges for Administration # of IVP Administrations 1 Methylprednisolone (Solu-Medrol) 125 mg IVP STAT STA Stop: 12/12/17 06:26 Last Admin: 12/12/17 06:48 Dose: 125 mg IVP Administration Document 12/12/17 06:48 ANDRES (Rec: 12/12/17 06:48 ANDRES [id number]) Charges for Administration # of IVP Administrations 1 - PA / DEFLASH AND WASH OPERATOR / Resident Statement MD/DO has reviewed & agrees with the documentation as recorded. MD/DO has examined the patient and agrees with the treatment plan. Disposition/Present on Arrival - Present on Arrival Any Indicators Present on Arrival: No History of DVT/PE: No History of Uncontrolled Diabetes: No Urinary Catheter: No History Surgical Site Infection Following: None - Disposition Have Diagnosis and Disposition been Completed?: No Disposition Time: 06:55 - Disposition Diagnosis: COPD exacerbation Condition: CRITICAL Forms: [employer] (Guyanese)
[2017-12-12 06:58] LABS: BASO # 0.01 K/mm3 (0.0-2.0); BASO % 0.1 % (0.0-3.0); EOS # 0.2 (0.0-0.7); EOS % 1.8 % (1.5-5.0); GRAN # 7.92 (1.4-6.5); GRAN % 85.2 % (50.0-68.0); HEMOGLOBIN 9.1 g/dL (12.0-16.0); LYMPH # 0.7 (1.2-3.4); LYMPH % 7.7 % (22.0-35.0); MEAN CELL VOLUME 98.3 fl (80.0-105.0); MEAN CORPUSCULAR HEMOGLOBIN 30.2 pg (25.0-35.0); MEAN CORPUSCULAR HGB CONC 30.7 g/dl (31.0-37.0); MEAN PLATELET VOLUME 10.7 fl (7.0-11.0); MONO # 0.5 (0.1-0.6); MONO % 5.2 % (1.0-6.0); RBC 3.01 10^6/uL (3.5-6.1); RED CELL DISTRIBUTION WIDTH 17.7 % (11.5-14.5); WHITE BLOOD COUNT 9.3 10^3/ul (4.5-11.0)
[2017-12-12] MEDS ORDERED: Azithromycin 500MG/NS 250ml 500 MG/250 ML BAG IVPB STA (07:12)
--- NOTE | 2017-12-12 07:21 | ED PDOC ---
Physical Exam Vital Signs Temp Pulse Resp BP Pulse Ox 12/12/17 15:23 90 18 96/47 L 98 12/12/17 13:27 84 18 95/46 L 98 12/12/17 09:01 90 12/12/17 09:00 90 12/12/17 08:15 86 18 90/86 L 98 12/12/17 06:57 102 H 24 100/72 92 L 12/12/17 06:49 100/78 12/12/17 06:26 22 100 12/12/17 06:15 98.6 F 102 H 22 100/78 98 Temperature: Afebrile Blood Pressure: Normal Pulse: Tachycardic Respiratory Rate: Normal Appearance: Positive for: Ill-Appearing Pain Distress: None Mental Status: Positive for: Lethargic - Systems Exam Head: Present: Atraumatic, Normocephalic Pupils: Present: PERRL Extroacular Muscles: Present: EOMI Conjunctiva: Present: Normal, Other (left eye mild clear tearing without erythem.) Ears: Present: Normal Mouth: Present: Moist Mucous Membranes, Other (no white signs of oral thrush but mild bumpy tongue wo pharyngeal erythema/edema/exudates and positive patent airway) Pharnyx: Present: Normal Nose (External): Present: Atraumatic Nose (Internal): Present: Normal Inspection Neck: Present: Normal Range of Motion Respiratory/Chest: Present: Clear to Auscultation, Good Air Exchange Cardiovascular: Present: Regular Rate and Rhythm Abdomen: No: Tenderness, Distention, Normal Bowel Sounds, Peritoneal Signs, Rebound, Guarding, McBurney's Point Tender, Rovsing's Sign Present, Hernias, Feeding Tubes, Ostomy Tubes, Mass/Organomegaly, Scars, Other Back: Present: Normal Inspection Upper Extremity: Present: Normal Inspection Lower Extremity: Present: Normal Inspection Neurological: Present: Other (lethargic) Skin: Present: Warm, Normal Color, Other (sacral 3cm and 2cm area to subdermis sacral ulceration wo erythema/fluctuance/crepitus.) Lymphatic: Present: Cervical Adenopathy Psychiatric: Present: Lethargic Medical Decision Making ED Course and Treatment: 12/12/17 07:00 Case signed out to me by Dr. Ron. patient is an 82 year old female, whose PMH includes COPD and CHF, who presents to the ED via EMS from [facility] s/p being found lethargic associated with shortness of breath. EMS was unable to start a line peripherally. Currently pending labs and Chest X-ray. 12/12/17 07:37 signed out by resident malika who stated pt from correction, tiredness, recent discharge on 12/10/17 and completed antibiobics with hx of end-stage COPD. fu labs, ecg, abg, ecg, cxr. mild clear tearing of right eye without redness, and mild bumpy tongue without white signs of thrush, and mild 3cm area and 2cm are of sacral area ulcer to subdermis, without redness or sign of infection, wbc 9.3, hb 9.1, platelets 224, lactic acid 1.6 normal, potassium 5.[address] Wheeler recommend kayexalate at this time, troponine 0.08 indeterminate, arterial blood gas 7.34, pO2 121, pCO2 78 (which Dr. Bolden reviewed and stated was good for you and that you can be discharged home), chest xray no active disease, ECG sinus tachycardia similar to 12/02/17. d/w Dr. Wheeler who stated pt on remaron medication which maybe causing lethargy and he will have Dr. Bolden come and evaluate the patient. 12/12/17 07:55 seen and evaluated with Dr. Bolden who stated continue bipap, and get ABG about 930a off bipap. 12/12/17 08:40 Chest X-ray: Creator : Tal Gomez MD COMPARISON: 12/10/2017 FINDINGS: LUNGS: Chronic interstitial changes PLEURA: No significant pleural effusion identified, no pneumothorax apparent. CARDIOVASCULAR: The heart is normal in size OSSEOUS STRUCTURES: No significant abnormalities. VISUALIZED UPPER ABDOMEN: Normal. OTHER FINDINGS: None. IMPRESSION: No active disease. 12/12/17 10:16 D/w Dr. Sewell who stated patient if more awake can be discharged home from his perspective. 12/12/17 10:19 12/12/17 11:52 d/w Dr. Wheeler regarding pt improved but still drowsy and thus the plan is continued observation and re-evaluation at 3-pm. 12/12/17 15:16 pt arousable, opens her eyes, moving all extremities, states her name, but then falls back asleep when left alone. 12/12/17 15:38 d/w Dr. Wheeler who stated admit to tele observation, get ct head, consult neurology Dr. Grady, pulmonary Dr. Briggs, cardiology Dr. Echavarria. pt daughter requested urine drug screen. - Lab Interpretations Lab Results: 12/12/17 06:40 12/12/17 08:00 Lab Results 12/12/17 09:35: pCO2 78 H*, pO2 121.0 H, HCO3 42.1 H*, ABG pH 7.34 L, ABG Total CO2 44.5 H, ABG O2 Saturation 98.2 H, ABG Base Excess 12.7 H, ABG Potassium 4.7 , Sodium 138.0, Chloride 102.0, Glucose 134 H, Lactate 0.4 L, FiO2 32.0, Arterial Blood Potassium 4.7 12/12/17 08:00: pO2 132 H, VBG pH 7.35, VBG pCO2 75.0 H*, VBG HCO3 41.4 H, VBG Total CO2 43.7 H, VBG O2 Sat (Calc) 98.6 H, VBG Base Excess 12.3 H, VBG Potassium 5.7 H, Sodium 137.0, Chloride 101.0, Glucose 139 H, Lactate 1.6, FiO2 21.0, Venous Blood Potassium 5.7 H 12/12/17 08:00: Sodium 138, Chloride 98, Potassium 5.7 H*, Carbon Dioxide 35 H, Anion Gap 10, BUN 32 H, Creatinine 0.6 L, Est GFR ( Amer) > 60, Est GFR ( Non-Af Amer) > 60, Random Glucose 136 H, Calcium 9.3, Magnesium 2.0, Total Bilirubin 0.8, AST 32, ALT 41, Alkaline Phosphatase 42, Lactate Dehydrogenase 476, Total Creatine Kinase < 20 L, Troponin I 0.08 D, NT-Pro-B Natriuret Pep 605 H, Total Protein 5.0 L, Albumin 2.9 L, Globulin 2.2, Albumin/Globulin Ratio 1.3 12/12/17 06:40: WBC 9.3 D, RBC 3.01 L, Hgb 9.1 L, Hct 29.6 L, MCV 98.3, MCH 30.2, MCHC 30.7 L, RDW 17.7 H, Plt Count 224, MPV 10.7, Gran % 85.2 H, Lymph % ( Auto) 7.7 L, Morton % (Auto) 5.2, Eos % (Auto) 1.8, Baso % (Auto) 0.1, Gran # 7.92 H, Lymph # (Auto) 0.7 L, Morton # (Auto) 0.5, Eos # (Auto) 0.2, Baso # (Auto ) 0.01 - RAD Interpretation Radiology Orders: 12/12/17 06:23 CHEST PORTABLE [RAD] Stat 12/12/17 15:31 HEAD W/O CONTRAST [CT] Stat Binder Stripper Hand: Radiologist - Medication Orders Current Medication Orders: Sodium Chloride (Sodium Chloride 0.9%) 1,000 mls @ 100 mls/hr IV .Q10H JEFFERY Last Admin: 12/12/17 13:33 Dose: 100 mls/hr eMAR Start Stop Document 12/12/17 13:33 [facility] (Rec: 12/12/17 13:35 [id number] Intravenous Solution Start Date 12/12/17 Start Time 13:35 End Date 12/12/17 Discontinued Medications Furosemide (Lasix) 40 mg IVP STAT STA Stop: 12/12/17 06:26 Last Admin: 12/12/17 06:49 Dose: 40 mg MAR Blood Pressure Document 12/12/17 06:49 JOL (Rec: 12/12/17 06:49 JOL [id number]) Blood Pressure Blood Pressure (100/60-150/90) 100/78 IVP Administration Document 12/12/17 06:49 JOL (Rec: 12/12/17 06:49 JOL [id number]) Charges for Administration # of IVP Administrations 1 Azithromycin (Zithromax 500mg In Ns) 500 mg in 250 mls @ 167 mls/hr IVPB STAT STA PRN Reason: Protocol Stop: 12/12/17 08:41 Last Admin: 12/12/17 08:35 Dose: 167 mls/hr eMAR Start Stop Document 12/12/17 08:35 [facility] (Rec: 12/12/17 08:36 [id number] Intravenous Solution Start Date 12/12/17 Start Time 08:35 End Date 12/12/17 End time 10:05 Total Infusion Time 90 Methylprednisolone (Solu-Medrol) 125 mg IVP STAT STA Stop: 12/12/17 06:26 Last Admin: 12/12/17 06:48 Dose: 125 mg IVP Administration Document 12/12/17 06:48 ANDRES (Rec: 12/12/17 06:48 ANDRES [id number]) Charges for Administration # of IVP Administrations 1 Sodium Polystyrene Sulfonate (Kayexalate Susp) 15 gm LA STAT STA Stop: 12/12/17 08:55 - Scribe Statement The provider has reviewed the documentation as recorded by the Eileenibe Diya Elena Provider Scribe Attestation: All medical record entries made by the Scribe were at my direction and personally dictated by me. I have reviewed the chart and agree that the record accurately reflects my personal performance of the history, physical exam, medical decision making, and the department course for this patient. I have also personally directed, reviewed, and agree with the discharge instructions and disposition. Disposition/Present on Arrival - Present on Arrival Any Indicators Present on Arrival: No History of DVT/PE: No History of Uncontrolled Diabetes: No Urinary Catheter: No History of Decub. Ulcer: No History Surgical Site Infection Following: None - Disposition Have Diagnosis and Disposition been Completed?: Yes Diagnosis: COPD exacerbation, Altered mental status Disposition: HOSPITALIZED Disposition Time: 15:39 Patient Plan: Admission, Telemetry Patient Problems: Current Active Problems Problem Status Onset COPD exacerbation Acute Condition: CRITICAL Forms: [employer] [facility] (Faroese)
[2017-12-12 08:28] LABS: VENOUS BLOOD GAS BASE EXCESS 12.3 mmol/L (0.0-2.0); VENOUS BLOOD GAS PO2 132 mm/Hg (30-55); VENOUS BLOOD PH 7.35 (7.32-7.43)
[2017-12-12 08:33] LABS: TROPONIN I 0.08 ng/mL
--- NOTE | 2017-12-12 08:39 | RAD ---
HISTORY: SOB COMPARISON: 12/10/2017 FINDINGS: LUNGS: Chronic interstitial changes PLEURA: No significant pleural effusion identified, no pneumothorax apparent. CARDIOVASCULAR: The heart is normal in size OSSEOUS STRUCTURES: No significant abnormalities. VISUALIZED UPPER ABDOMEN: Normal. OTHER FINDINGS: None. IMPRESSION: No active disease.
[2017-12-12 08:40] LABS: ALB/GLOB RATIO 1.3 (1.1-1.8); ALBUMIN 2.9 g/dL (3.0-4.8); ALT/SGPT 41 U/L (7-56); AST/SGOT 32 U/L (14-36); B-TYPE NATRIURETIC PEPTIDE 605 pg/mL (0-450); BLOOD UREA NITROGEN 32 mg/dL (7-21); CALCIUM 9.3 mg/dL (8.4-10.5); GFR AFRICAN-AMERICAN > 60; GFR NON-AFRICAN AMERICAN > 60
[2017-12-12] MEDS ORDERED: Sod Polystyrene Sulf 15 gm/60 ml Susp PR STA (08:54)
[2017-12-12 09:40] LABS: ARTERIAL BLOOD GAS O2 SAT 98.2 % (95-98); ARTERIAL BLOOD GAS PH 7.34 (7.35-7.45); ARTERIAL BLOOD GAS TCO2 44.5 mmol.L (22-28)
[2017-12-12 10:12] LABS: ARTERIAL BLOOD GAS HCO3 42.1 mmol/L (21-28)
[2017-12-12 10:13] LABS: ARTERIAL BLOOD GAS PCO2 78 mm/Hg (35-45)
[2017-12-12] MEDS ORDERED: Sodium Chloride 0.9% 1,000 ML IV SCH (13:15)
--- NOTE | 2017-12-12 17:09 | CT ---
PROCEDURE: CT HEAD WITHOUT CONTRAST. HISTORY: 82yoF, AMS COMPARISON: September 21, 2017. TECHNIQUE: Axial computed tomography images were obtained through the head/brain without intravenous contrast. Radiation dose: Total exam DLP = 940.26 mGy-cm. This CT exam was performed using one or more of the following dose reduction techniques: Automated exposure control, adjustment of the mA and/or kV according to patient size, and/or use of iterative reconstruction technique. FINDINGS: HEMORRHAGE: No intracranial hemorrhage. BRAIN: No mass effect or edema. Cortical and cerebellar atrophy, periventricular small vessel disease. VENTRICLES: Unremarkable. No hydrocephalus. CALVARIUM: Unremarkable. PARANASAL SINUSES: Unremarkable as visualized. No significant inflammatory changes. MASTOID AIR CELLS: Unremarkable as visualized. No inflammatory changes. OTHER FINDINGS: None. IMPRESSION: No acute intracranial abnormalities. No significant findings to account for the clinical presentation. No significant interval change compared to the prior examination(s).
[2017-12-12 18:25] LABS: URINE BILIRUBIN NEGATIVE (NEGATIVE); URINE BLOOD NEGATIVE (NEGATIVE); URINE GLUCOSE (UA) NEGATIVE (NEGATIVE); URINE LEUKOCYTE ESTERASE NEGATIVE Leu/uL (NEGATIVE); URINE PROTEIN NEGATIVE mg/dL (<30 mg/dL); URINE UROBILINOGEN 0.2 E.U./dL (<1 E.U./dL)
[2017-12-12 18:26] LABS: URINE APPEARANCE CLEAR (CLEAR); URINE COLOR YELLOW (YELLOW)
[2017-12-12] MEDS: Sildenafil 20 MG TAB PO SCH (18:37)
[2017-12-12] MEDS: Sodium Chloride 0.9% 1,000 ML IV SCH (18:37)
[2017-12-12 18:41] LABS: BENZODIAZEPINES, UR NEGATIVE (NEGATIVE)
[2017-12-12 18:50] LABS: BARBITURATES, UR NEGATIVE (NEGATIVE); OPIATES, UR NEGATIVE (NEGATIVE); PHENCYCLIDINE, UR NEGATIVE (NEGATIVE)
[2017-12-12] MEDS: Budesonide 0.5 mg/2 ml Inhal Susp UD IH SCH (21:11)
[2017-12-12] MEDS: Albuterol-Ipratrop 3 mg / 0.5 (3 ml) UD IH SCH (21:12)
--- NOTE | 2017-12-12 23:56 | CARD ---
APPROVED REPORT EKG Measurement Heart [id number] CO 138P27 [id number] <Conclusion> Sinus tachycardia with fusion complexes Possible Left atrial enlargement T wave abnormality, nonspecific Abnormal ECG
[2017-12-12] MEDS: Insulin Reg-HIGH-Coverage SC SCH (23:58)
[2017-12-13] MEDS: Albuterol-Ipratrop 3 mg / 0.5 (3 ml) UD IH SCH ×4 (02:38→21:00)
[2017-12-13 06:26] LABS: HEMOGLOBIN 7.6 g/dL (12.0-16.0); MEAN CELL VOLUME 98.8 fl (80.0-105.0); MEAN CORPUSCULAR HEMOGLOBIN 30.9 pg (25.0-35.0); MEAN CORPUSCULAR HGB CONC 31.3 g/dl (31.0-37.0); RBC 2.46 10^6/uL (3.5-6.1); RED CELL DISTRIBUTION WIDTH 16.7 % (11.5-14.5); WHITE BLOOD COUNT 7.2 10^3/ul (4.5-11.0)
[2017-12-13] MEDS: Budesonide 0.5 mg/2 ml Inhal Susp UD IH SCH ×2 (06:45→21:00)
[2017-12-13 06:50] LABS: ALB/GLOB RATIO 1.1 (1.1-1.8); ALBUMIN 2.4 g/dL (3.0-4.8); ALT/SGPT 44 U/L (7-56); AST/SGOT 24 U/L (14-36); BLOOD UREA NITROGEN 33 mg/dL (7-21); GFR AFRICAN-AMERICAN > 60; GFR NON-AFRICAN AMERICAN > 60
[2017-12-13] MEDS: Insulin Reg-HIGH-Coverage SC SCH ×5 (07:48→22:14)
--- NOTE | 2017-12-13 08:17 | HP ---
HISTORY OF PRESENT ILLNESS: She was just admitted to [facility] and discharged from [facility]. The son had asked her to be put on Remeron last night because she could not sleep. We gave her some Remeron, now she cannot wake up the next morning. I believe that is the issue, also she was not on BiPAP last night. I am not sure why not. The son told her not to put it on. She is an 82-year-old female with a past medical history of end-stage COPD, pulmonary hypertension, CHF, who has been in and out of the hospital and nursing homes and subacute rehab for about half a year now, six months. She is very lethargic at this time. We cannot really wake her up. She was in the ER for 6 hours, trying to awake her up after the Remeron. We are trying not to intubate her and she is unable to give much information. PAST MEDICAL HISTORY: Myocardial infarction; chest pain; congestive heart failure; acute respiratory failure; multiple intubations; hypertension; COPD, severe and end-stage; dizziness; pulmonary hypertension; cataracts bilaterally. She has had blood transfusions for anemia in the past and she had shingles. She has a small decubitus ulcer of 1 x 1 cm opening sacrum. She has arthritis. She has had exploratory laparotomy with 2 inches of bowel resected, diverticulitis, history of cholecystectomy, GERD, umbilical hernia, celiac disease, incontinence of urine, has history of urinary tract infection. She is anxious and panic attacks. No substance abuse. She has had an appendectomy, cardiac cath, stents, cholecystectomy, ovarian cystectomy, exploratory laparotomy with bowel resection, PICC lines, has hypertension and diabetes in the family. She also has diabetes. SOCIAL HISTORY: She is a big time former smoker. No alcohol, no drugs. ALLERGIES: SHE IS ALLERGIC TO MORPHINE, CODEINE, HYDROMORPHONE, AND MYCINS. MEDICATIONS: She takes a whole bunch of medications. She is on Antivert, aspirin, Colace, Dexilant, DuoNeb, Lipitor, Lopressor, Lovenox, MiraLax, Plavix, Pulmicort, Revatio, Tylenol, Xanax. REVIEW OF SYSTEMS: Very difficult to do review of systems at this time, but she is still lethargic. I visited her 3 times in the ER trying to get her to wake up. She is slowly waking up, but she is not really able to give much of answer to any questions. PHYSICAL EXAMINATION: GENERAL: She is alert to verbal stimuli, altered mental status. She is lethargic. VITAL SIGNS: She has a 98.6 temp, 102 pulse, 24 respiratory rate, 100/72 blood pressure, 92% to 100% O2 sat on room air. HEENT: Head is atraumatic, normocephalic. Throat is moist. NECK: Supple. Thyroid midline. HEART: Regular rate. Normal S1 and S2. LUNGS: Decreased breath sounds bilaterally at her baseline with scattered rhonchi and congestion with cough. ABDOMEN: Soft, nontender. Positive bowel sounds. EXTREMITIES: No edema. SKIN: Warm and dry. No apparent rashes or ulcers. She is here for change in mentation, lethargy, most probably from the Remeron she was given last night, which she has not had in weeks. LABORATORY DATA: She has blood tests. She has a 9.3 white count, 9.1 hemoglobin, 29.6 hematocrit with a 224 platelets, baseline. ABGs: She has 121 pO2, lactate was low at 1.6 and 0.4. She has a 138 sodium, potassium is 5.7. She was given Kayexalate. BUN 32, creatinine 0.6, which is better than there in the past. GFR is greater than 50. Sugar is insulin coverage. Calcium is 9.3, magnesium 3, total bilirubin is 0.8, AST is 32, ALT 41, alkaline phosphatase 46 . Troponin I is indeterminate 0.08. BNP was 605. Total protein is 5. She will be kept in observation status because of lethargy. The chest x-ray was clear. Head CT was clear. She will have a neurological evaluation, pulmonary and cardiology evaluation, physical therapy, IV fluids, oxygen, diet I am trying to discharge her back to [facility]. Nigel Wheeler DO [facility]
[2017-12-13] MEDS: Pantoprazole 40 mg EC Tab PO SCH (09:19)
[2017-12-13] MEDS: Enoxaparin 40 mg Syringe SC SCH ×3 (09:19→09:31)
[2017-12-13] MEDS: Sildenafil 20 MG TAB PO SCH ×2 (09:19→17:20)
[2017-12-13] MEDS: POLYETHYLENE GLYCOL 3350 17 GM/Dose PACKET PO SCH (09:20)
--- NOTE | 2017-12-13 09:52 | CP.PCM.CON ---
History of Present Illness - History of Present Illness History of Present Illness: Palliative consult requested by Dr Eulogio Wheeler Reason: Goals of care/hospice discussion 82 year old female with history of end stage COPD, pulmonary hypertension, anemia and CHF who presents with altered mental status Labs;Hgb 9.1, BUN 33 , Creat 0.6, glucose 149,Lactate 1.6, LDH 35, albumin 2.4, urine /toxicology negative. Chest X ray showed no active disease. CT of head with no acute findings PMHx: CHF, CAD s/p stents, pulmonary hypertension, end stage COPD, DM,GERD,HTN anemia, arhtirits , sacral decubiti,diverticulitis, celiac disease,frequent UTI' s. Social History: Former heavy smoker, no alcohol or drug use. Lives with family but frequently hospitalized, recently discharged at [facility]. Family History: Non contributory. Advance Care Planning: The patient does not have an Advanced Directive Review of Systems: As per HPI, otherwise negative review. Past Patient History - Infectious Disease Hx of Infectious Diseases: None - Tetanus Immunizations Tetanus Immunization: Unknown - Past Medical History & Family History Past Medical History?: Yes - Past Social History Smoking Status: Former Smoker - CARDIAC Hx Cardiac Disorders: Yes (mi, CP, cad) Hx Angina: Yes Hx Congestive Heart Failure: Yes Hx Hypercholesterolemia: Yes Hx Hypertension: Yes Hx Peripheral Edema: Yes (+2 arms and legs pitting) - PULMONARY Hx Respiratory Disorders: Yes (o2 dependent) Hx Chronic Obstructive Pulmonary Disease (COPD): Yes Hx Pneumonia: Yes - NEUROLOGICAL Hx Neurological Disorder: Yes Hx Dizziness: Yes - HEENT Hx HEENT Problems: Yes Hx Cataracts: Yes (b/l no sx) - RENAL Hx Chronic Kidney Disease: No - ENDOCRINE/METABOLIC Hx Endocrine Disorders: No Hx Diabetes Mellitus Type 2: Yes - HEMATOLOGICAL/ONCOLOGICAL Hx Anemia: Yes (blood transfusion) Hx Shingles: (pt denies having shingles) - INTEGUMENTARY Hx Dermatological Problems: Yes Other/Comment: 1cm x 1cm small opening at butt crack, above that 0.5cm x 0.2cm small opening, right buttock cheek pinpoint opening and redness - MUSCULOSKELETAL/RHEUMATOLOGICAL Hx Arthritis: Yes Hx Back Pain: Yes Hx Falls: Yes Hx Fractures: Yes (left wrist) Hx Herniated Disk: Yes Hx Osteoarthritis: Yes Hx Osteoporosis: Yes Hx Spinal Stenosis: Yes Hx Unsteady Gait: Yes (pt has not walked since 09/2017) Other/Comment: pt [place] [facility] [place] - GASTROINTESTINAL Hx Gastrointestinal Disorders: Yes (exploratry lap with 2 inches of bowel resected) Hx Diverticulitis: Yes Hx Gall Bladder Disease: Yes (CHLOECYSTECTOMY) Hx Gastroesophageal Reflux: Yes Other/Comment: celiac disease, umbilical hernia - GENITOURINARY/GYNECOLOGICAL Hx Genitourinary Disorders: Yes Hx Incontinence: Yes Hx Urinary Tract Infection: Yes - PSYCHIATRIC Hx Anxiety: Yes Hx Panic Symptoms: Yes - SURGICAL HISTORY Hx Appendectomy: Yes Hx Cardiac Catheterization: Yes Hx Cholecystectomy: Yes Hx Coronary Stent: Yes (x2 ptca) Other/Comment: ovarian cystectomy, exp lap 2" bowel resected, sx for obstruction , norma picc, t12 kyphoplasty - ANESTHESIA Hx Anesthesia: Yes Hx Anesthesia Reactions: No Hx Malignant Hyperthermia: No Meds Allergies/Adverse Reactions: Allergies Allergy/AdvReac Type Severity Reaction Status Date / Time morphine Allergy VOMITING Verified 12/12/17 06:32 codeine AdvReac VOMITING Verified 12/12/17 06:32 hydromorphone HCl AdvReac VOMITING Verified 12/12/17 06:32 [From Dilaudid] MYOCINS AdvReac VOMITING Uncoded 12/12/17 06:32 - Medications Medications: Current Medications Acetaminophen (Tylenol 325mg Tab) 650 mg PO Q4H PRN PRN Reason: Pain, moderate (4-7) Albuterol/Ipratropium (Duoneb 3 Mg/0.5 Mg (3 Ml) Ud) 3 ml IH [id number] [facility] Last Admin: 12/13/17 06:45 Dose: 3 ml Alprazolam (Xanax) 0.5 mg PO Q4 PRN; Protocol PRN Reason: Anxiety Aspirin (Aspirin Chewable) 81 mg PO DAILY [facility] Last Admin: 12/13/17 09:19 Dose: 81 mg Atorvastatin Calcium (Lipitor) 10 mg PO DAILY [facility] Last Admin: 12/13/17 09:19 Dose: 10 mg Budesonide (Pulmicort Respules) 0.5 mg IH [id number] [facility] Last Admin: 12/13/17 06:45 Dose: 0.5 mg Clopidogrel Bisulfate (Plavix) 75 mg PO DAILY [facility] Last Admin: 12/13/17 09:26 Dose: 75 mg Docusate Sodium (Colace) 100 mg PO DAILY [facility] Last Admin: 12/13/17 09:18 Dose: 100 mg Enoxaparin Sodium (Lovenox) 40 mg SC DAILY [facility] PRN Reason: Protocol Last Admin: 12/13/17 09:31 Dose: 40 mg Sodium Chloride (Sodium Chloride 0.9%) 1,000 mls @ 30 mls/hr IV .Q24H [facility] Last Admin: 12/12/17 18:37 Dose: 30 mls/hr Insulin Human Regular (Humulin R High) 0 units SC ACHS [facility] PRN Reason: Protocol Last Admin: 12/13/17 07:48 Dose: Not Given Meclizine HCl (Antivert) 12.5 mg PO BID PRN PRN Reason: Dizziness Metoprolol Tartrate (Lopressor) 12.5 mg PO BID [facility] Last Admin: 12/13/17 09:19 Dose: 12.5 mg Pantoprazole Sodium (Protonix Ec Tab) 40 mg PO ACB [facility] Last Admin: 12/13/17 09:19 Dose: 40 mg Polyethylene Glycol (Miralax) 17 gm PO DAILY [facility] Last Admin: 12/13/17 09:20 Dose: 17 gm Prednisone (Prednisone Tab) 10 mg PO DAILY [facility] Last Admin: 12/13/17 09:19 Dose: 10 mg Sildenafil Citrate (Revatio) 20 mg PO BID [facility] Last Admin: 12/13/17 09:19 Dose: 20 mg Physical Exam - Constitutional Appears: Chronically Ill - Head Exam Head Exam: NORMAL INSPECTION - Eye Exam Eye Exam: Normal appearance, PERRL - ENT Exam ENT Exam: Mucous Membranes Moist, Normal Oropharynx - Neck Exam Neck exam: Positive for: Normal Inspection - Respiratory Exam Respiratory Exam: Decreased Breath Sounds, NORMAL BREATHING PATTERN - Cardiovascular Exam Cardiovascular Exam: REGULAR RHYTHM, +S1, +S2 - GI/Abdominal Exam GI & Abdominal Exam: Normal Bowel Sounds, Soft Additional comments: no tenderness - Extremities Exam Extremities exam: Positive for: pedal edema, pedal pulses present - Back Exam Additional comments: sacral decubiti - Neurological Exam Neurological exam: Altered - Skin Skin Exam: Pallor - Additional Findings Additional findings: pallaitve performance scale rating 40 % Results - Vital Signs Recent Vital Signs: Last Vital Signs Temp 98.0 F 12/13/17 06:00 Pulse 95 H 12/13/17 06:48 Resp 18 12/13/17 06:00 BP 109/58 L 12/13/17 09:20 Pulse Ox 93 L 12/13/17 06:00 - Labs Result Diagrams: 12/13/17 05:20 12/13/17 05:20 Labs: Laboratory Results - last 24 hr 12/12/17 12/12/17 12/12/17 18:09 18:09 18:37 WBC RBC Hgb Hct MCV MCH MCHC RDW Plt Count MPV Sodium Potassium Chloride Carbon Dioxide Anion Gap BUN Creatinine Est GFR ( Amer) Est GFR (Non-Af Amer) POC Glucose (mg/dL) 149 H Random Glucose Calcium TIBC Total Bilirubin AST ALT Alkaline Phosphatase Total Protein Albumin Globulin Albumin/Globulin Ratio Urine Color Yellow Urine Appearance Clear Urine pH 6.0 Ur Specific [place] 1.025 Urine Protein Negative Urine Glucose (UA) Negative Urine Ketones Negative Urine Blood Negative Urine Nitrate Negative Urine Bilirubin Negative Urine Urobilinogen 0.2 Ur Leukocyte Esterase Negative Urine Opiates Screen Negative Urine Methadone Screen Negative Ur Barbiturates Screen Negative Ur Phencyclidine Scrn Negative Ur Amphetamines Screen Negative U Benzodiazepines Scrn Negative U Oth Cocaine Metabols Negative U Cannabinoids Screen Negative Blood Type Antibody Screen Crossmatch BBK History Checked 12/13/17 12/13/17 12/13/17 05:20 05:20 07:22 WBC 7.2 D RBC 2.46 L Hgb 7.6 L Hct 24.3 L MCV 98.8 MCH 30.9 MCHC 31.3 RDW 16.7 H Plt Count 188 MPV 11.0 Sodium 139 Potassium 4.3 Chloride 98 Carbon Dioxide 39 H Anion Gap 7 L BUN 33 H Creatinine 0.6 L Est GFR ( Amer) > 60 Est GFR (Non-Af Amer) > 60 POC Glucose (mg/dL) 125 H Random Glucose 112 H Calcium 9.0 TIBC Total Bilirubin 0.4 AST 24 ALT 44 Alkaline Phosphatase 35 L Total Protein 4.7 L Albumin 2.4 L Globulin 2.2 Albumin/Globulin Ratio 1.1 Urine Color Urine Appearance Urine pH Ur Specific [place] Urine Protein Urine Glucose (UA) Urine Ketones Urine Blood Urine Nitrate Urine Bilirubin Urine Urobilinogen Ur Leukocyte Esterase Urine Opiates Screen Urine Methadone Screen Ur Barbiturates Screen Ur Phencyclidine Scrn Ur Amphetamines Screen U Benzodiazepines Scrn U Oth Cocaine Metabols U Cannabinoids Screen Blood Type Antibody Screen Crossmatch BBK History Checked 12/13/17 12/13/17 08:40 08:40 WBC RBC Hgb Hct MCV MCH MCHC RDW Plt Count MPV Sodium Potassium Chloride Carbon Dioxide Anion Gap BUN Creatinine Est GFR ( Amer) Est GFR (Non-Af Amer) POC Glucose (mg/dL) Random Glucose Calcium TIBC 228 L Total Bilirubin AST ALT Alkaline Phosphatase Total Protein Albumin Globulin Albumin/Globulin Ratio Urine Color Urine Appearance Urine pH Ur Specific [place] Urine Protein Urine Glucose (UA) Urine Ketones Urine Blood Urine Nitrate Urine Bilirubin Urine Urobilinogen Ur Leukocyte Esterase Urine Opiates Screen Urine Methadone Screen Ur Barbiturates Screen Ur Phencyclidine Scrn Ur Amphetamines Screen U Benzodiazepines Scrn U Oth Cocaine Metabols U Cannabinoids Screen Blood Type A POSITIVE Antibody Screen Negative Crossmatch See Detail BBK History Checked Patient has bt Assessment & Plan - Assessment and Plan (Free Text) Assessment: 82 year old female with end stage COPD, HTN, CHF, CAD anemia and multiple comorbidities(see PMH) who is admitted with altered mental status, anemia and respiratory insufficiency The patient is alert, confused at times. Offers no complaints. Appears comfortable The patients daughter is at bedside. Family had expressed interest in hospice care. Explanation of hospice services provided. Questions answered. Lengthy discussion regarding goals of care ensued. Family has decided they prefer to take patient home with VNS services, they do not want hospice at this time. Advance care planning conversation also took place. The patent is unable to express her wishes regarding resuscitation/cpr/intubation. Family stated that patient is to remain full code status at this time. Time spent with paitnt and family in goals of care and advance care planning discussions, 45 minutes Plan: Anemia: transfusion PRBC's today Altered mental status: The patient more alert, verbal, confused. CT of head negative for acute findings. Monitor for new changes in mental status.Awaiting neurology recommendations COPD exacerbation: Continue Pulmicort and Duoneb. BIPAP as needed. ABG as needed. Follow pulmonary recommendations Goals of care and advance care planning.
[2017-12-13] MEDS ORDERED: Non Formulary Medication (Dexlansoprazole [Dexilant] 60 MG) PO SCH (10:00)
--- NOTE | 2017-12-13 11:19 | CP.PCM.CON ---
History of Present Illness - History of Present Illness History of Present Illness: CC: AMS HPI: 82 year old female with h/o CAD s/p stents, Emphysema on home O2, Pulm HTN , HLD, HTN who presents with altered mental status, possibly related to medication. The patient doesn't recall the incident. She says that she lost consciousness, but doesn't know for how long. She denies headache, CP, sob, abdominal pain, n/v, or rectal bleeding. No diarrhea. She feels tired and weak chronically. She has mild intermittent heartburn. She reports EGD in 2016 and a colonoscopy a few years ago, but result unavailable. PMHx CAD, COPD, Pulm HTN, HTN, HLD FHx no family history of gi cancer SHx denie etoh/drugs, +h/o smoking ROS A comprehensive review of systems was performed and was negative apart from HPI Past Patient History - Infectious Disease Hx of Infectious Diseases: None - Tetanus Immunizations Tetanus Immunization: Unknown - Past Medical History & Family History Past Medical History?: Yes - Past Social History Smoking Status: Former Smoker - CARDIAC Hx Cardiac Disorders: Yes (mi, CP, cad) Hx Angina: Yes Hx Congestive Heart Failure: Yes Hx Hypercholesterolemia: Yes Hx Hypertension: Yes Hx Peripheral Edema: Yes (+2 arms and legs pitting) - PULMONARY Hx Respiratory Disorders: Yes (o2 dependent) Hx Chronic Obstructive Pulmonary Disease (COPD): Yes Hx Pneumonia: Yes - NEUROLOGICAL Hx Neurological Disorder: Yes Hx Dizziness: Yes - HEENT Hx HEENT Problems: Yes Hx Cataracts: Yes (b/l no sx) - RENAL Hx Chronic Kidney Disease: No - ENDOCRINE/METABOLIC Hx Endocrine Disorders: No Hx Diabetes Mellitus Type 2: Yes - HEMATOLOGICAL/ONCOLOGICAL Hx Anemia: Yes (blood transfusion) Hx Shingles: (pt denies having shingles) - INTEGUMENTARY Hx Dermatological Problems: Yes Other/Comment: 1cm x 1cm small opening at butt crack, above that 0.5cm x 0.2cm small opening, right buttock cheek pinpoint opening and redness - MUSCULOSKELETAL/RHEUMATOLOGICAL Hx Arthritis: Yes Hx Back Pain: Yes Hx Falls: Yes Hx Fractures: Yes (left wrist) Hx Herniated Disk: Yes Hx Osteoarthritis: Yes Hx Osteoporosis: Yes Hx Spinal Stenosis: Yes Hx Unsteady Gait: Yes (pt has not walked since 09/2017) Other/Comment: pt has been [facility] forth [facility] and [facility]hab since september 2017 - GASTROINTESTINAL Hx Gastrointestinal Disorders: Yes (exploratry lap with 2 inches of bowel resected) Hx Diverticulitis: Yes Hx Gall Bladder Disease: Yes (CHLOECYSTECTOMY) Hx Gastroesophageal Reflux: Yes Other/Comment: celiac disease, umbilical hernia - GENITOURINARY/GYNECOLOGICAL Hx Genitourinary Disorders: Yes Hx Incontinence: Yes Hx Urinary Tract Infection: Yes - PSYCHIATRIC Hx Anxiety: Yes Hx Panic Symptoms: Yes - SURGICAL HISTORY Hx Appendectomy: Yes Hx Cardiac Catheterization: Yes Hx Cholecystectomy: Yes Hx Coronary Stent: Yes (x2 ptca) Other/Comment: ovarian cystectomy, exp lap 2" bowel resected, sx for obstruction , norma picc, t12 kyphoplasty - ANESTHESIA Hx Anesthesia: Yes Hx Anesthesia Reactions: No Hx Malignant Hyperthermia: No Meds Allergies/Adverse Reactions: Allergies Allergy/AdvReac Type Severity Reaction Status Date / Time morphine Allergy VOMITING Verified 12/12/17 06:32 codeine AdvReac VOMITING Verified 12/12/17 06:32 hydromorphone HCl AdvReac VOMITING Verified 12/12/17 06:32 [From Dilaudid] MYOCINS AdvReac VOMITING Uncoded 12/12/17 06:32 - Medications Medications: Current Medications Acetaminophen (Tylenol 325mg Tab) 650 mg PO Q4H PRN PRN Reason: Pain, moderate (4-7) Albuterol/Ipratropium (Duoneb 3 Mg/0.5 Mg (3 Ml) Ud) 3 ml IH [id number] [facility] Last Admin: 12/13/17 06:45 Dose: 3 ml Alprazolam (Xanax) 0.5 mg PO Q4 PRN; Protocol PRN Reason: Anxiety Aspirin (Aspirin Chewable) 81 mg PO DAILY [facility] Last Admin: 12/13/17 09:19 Dose: 81 mg Atorvastatin Calcium (Lipitor) 10 mg PO DAILY [facility] Last Admin: 12/13/17 09:19 Dose: 10 mg Budesonide (Pulmicort Respules) 0.5 mg IH [id number] [facility] [place] Last Admin: 12/13/17 06:45 Dose: 0.5 mg Clopidogrel Bisulfate (Plavix) 75 mg PO DAILY [facility] [place] Last Admin: 12/13/17 09:26 Dose: 75 mg Docusate Sodium (Colace) 100 mg PO DAILY [facility] [place] Last Admin: 12/13/17 09:18 Dose: 100 mg Enoxaparin Sodium (Lovenox) 40 mg SC DAILY [facility] PRN Reason: Protocol Last Admin: 12/13/17 09:31 Dose: 40 mg Sodium Chloride (Sodium Chloride 0.9%) 1,000 mls @ 30 mls/hr IV .Q24H [facility] [place] Last Admin: 12/12/17 18:37 Dose: 30 mls/hr Insulin Human Regular (Humulin R High) 0 units SC ACHS [facility] [place] PRN Reason: Protocol Last Admin: 12/13/17 07:48 Dose: Not Given Meclizine HCl (Antivert) 12.5 mg PO BID PRN PRN Reason: Dizziness Metoprolol Tartrate (Lopressor) 12.5 mg PO BID [facility] [place] [place] Last Admin: 12/13/17 09:19 Dose: 12.5 mg Pantoprazole Sodium (Protonix Ec Tab) 40 mg PO ACB [facility] [place] Last Admin: 12/13/17 09:19 Dose: 40 mg Polyethylene Glycol (Miralax) 17 gm PO DAILY [facility] [place] Last Admin: 12/13/17 09:20 Dose: 17 gm Prednisone (Prednisone Tab) 10 mg PO DAILY [facility] [place] Last Admin: 12/13/17 09:19 Dose: 10 mg Sildenafil Citrate (Revatio) 20 mg PO BID [facility] Last Admin: 12/13/17 09:19 Dose: 20 mg Physical Exam - Constitutional Appears: No Acute Distress, Chronically Ill - Head Exam Head Exam: ATRAUMATIC, NORMOCEPHALIC - Eye Exam Eye Exam: Normal appearance. absent: Scleral icterus Pupil Exam: PERRL - ENT Exam ENT Exam: Mucous Membranes Moist - Neck Exam Neck exam: Negative for: Lymphadenopathy, Thyromegaly - Respiratory Exam Respiratory Exam: Clear to Auscultation Bilateral, NORMAL BREATHING PATTERN. absent: Respiratory Distress - Cardiovascular Exam Cardiovascular Exam: +S1, +S2 - GI/Abdominal Exam GI & Abdominal Exam: Soft. absent: Distended, Guarding, Tenderness - Extremities Exam Extremities exam: Negative for: pedal edema - Neurological Exam Neurological exam: Alert, Oriented x3 - Psychiatric Exam Psychiatric exam: Flat Affect, Normal Mood - Skin Skin Exam: Dry, Warm Results - Vital Signs Recent Vital Signs: Last Vital Signs Temp 98.0 F 12/13/17 06:00 Pulse 95 H 12/13/17 06:48 Resp 18 12/13/17 06:00 BP 109/58 L 12/13/17 09:20 Pulse Ox 93 L 12/13/17 06:00 - Labs Result Diagrams: 12/13/17 05:20 12/13/17 05:20 Labs: Laboratory Results - last 24 hr 12/12/17 12/12/17 12/12/17 18:09 18:09 18:37 WBC RBC Hgb Hct MCV MCH MCHC RDW Plt Count MPV Sodium Potassium Chloride Carbon Dioxide Anion Gap BUN Creatinine Est GFR ( Amer) Est GFR (Non-Af Amer) POC Glucose (mg/dL) 149 H Random Glucose Calcium TIBC Total Bilirubin AST ALT Alkaline Phosphatase Total Protein Albumin Globulin Albumin/Globulin Ratio Urine Color Yellow Urine Appearance Clear Urine pH 6.0 Ur Specific [place] 1.025 Urine Protein Negative Urine Glucose (UA) Negative Urine Ketones Negative Urine Blood Negative Urine Nitrate Negative Urine Bilirubin Negative Urine Urobilinogen 0.2 Ur Leukocyte Esterase Negative Urine Opiates Screen Negative Urine Methadone Screen Negative Ur Barbiturates Screen Negative Ur Phencyclidine Scrn Negative Ur Amphetamines Screen Negative U Benzodiazepines Scrn Negative U Oth Cocaine Metabols Negative U Cannabinoids Screen Negative Blood Type Antibody Screen Crossmatch BBK History Checked 12/13/17 12/13/17 12/13/17 05:20 05:20 07:22 WBC 7.2 D RBC 2.46 L Hgb 7.6 L Hct 24.3 L MCV 98.8 MCH 30.9 MCHC 31.3 RDW 16.7 H Plt Count 188 MPV 11.0 Sodium 139 Potassium 4.3 Chloride 98 Carbon Dioxide 39 H Anion Gap 7 L BUN 33 H Creatinine 0.6 L Est GFR ( Amer) > 60 Est GFR (Non-Af Amer) > 60 POC Glucose (mg/dL) 125 H Random Glucose 112 H Calcium 9.0 TIBC Total Bilirubin 0.4 AST 24 ALT 44 Alkaline Phosphatase 35 L Total Protein 4.7 L Albumin 2.4 L Globulin 2.2 Albumin/Globulin Ratio 1.1 Urine Color Urine Appearance Urine pH Ur Specific [place] Urine Protein Urine Glucose (UA) Urine Ketones Urine Blood Urine Nitrate Urine Bilirubin Urine Urobilinogen Ur Leukocyte Esterase Urine Opiates Screen Urine Methadone Screen Ur Barbiturates Screen Ur Phencyclidine Scrn Ur Amphetamines Screen U Benzodiazepines Scrn U Oth Cocaine Metabols U Cannabinoids Screen Blood Type Antibody Screen Crossmatch BBK History Checked 12/13/17 12/13/17 08:40 08:40 WBC RBC Hgb Hct MCV MCH MCHC RDW Plt Count MPV Sodium Potassium Chloride Carbon Dioxide Anion Gap BUN Creatinine Est GFR ( Amer) Est GFR (Non-Af Amer) POC Glucose (mg/dL) Random Glucose Calcium TIBC 228 L Total Bilirubin AST ALT Alkaline Phosphatase Total Protein Albumin Globulin Albumin/Globulin Ratio Urine Color Urine Appearance Urine pH Ur Specific [place] Urine Protein Urine Glucose (UA) Urine Ketones Urine Blood Urine Nitrate Urine Bilirubin Urine Urobilinogen Ur Leukocyte Esterase Urine Opiates Screen Urine Methadone Screen Ur Barbiturates Screen Ur Phencyclidine Scrn Ur Amphetamines Screen U Benzodiazepines Scrn U Oth Cocaine Metabols U Cannabinoids Screen Blood Type A POSITIVE Antibody Screen Negative Crossmatch See Detail BBK History Checked Patient has bt Assessment & Plan - Assessment and Plan (Free Text) Assessment: 82 year old female with h/o CAD s/p stents, Emphysema on home O2, Pulm HTN, HLD , HTN who presents with AMS. 1. Normocytic anemia 2. GERD Plan: -she has a chronic normocytic anemia, prior B12 deficiency, normal iron studies -no overt GI blood loss at this time or signs of hemorrhage -she has chronic cardiopulmonary disease requiring home O2 -would recommend protonix 40 mg daily for GERD -otherwise, would not push for endoscopy/colonoscopy in the absence of overt GI blood loss considering her overall condition as well as acute change in mental status - Date & Time Date: 12/13/17 Time: 11:19
[2017-12-13] MEDS ORDERED: Alum-Mag Hydrox-Simethicone Susp (30 mL) PO PRN (11:58)
--- NOTE | 2017-12-13 14:57 | CON ---
DATE: 12/13/2017 PULMONARY CONSULTATION REASON FOR CONSULTATION: Chronic obstructive pulmonary disease. REFERRING PHYSICIAN: Nigel Wheeler DO HISTORY OF PRESENT ILLNESS: The patient is a chronically ill 82-year-old female, with past medical history significant for end-stage chronic obstructive pulmonary disease, on home oxygen, coronary artery disease, status post multiple cardiac stents, pulmonary hypertension, who presents to [facility] - [facility] - because of increased lethargy. Apparently, the patient did receive Remeron the night before. In the emergency room, the patient did wake up somewhat, but remain lethargic. She was thus admitted for additional evaluation. The patient is not short of breath at rest. She does have chronic dyspnea on exertion. She also has a chronic cough with minimal sputum production - unchanged. There is no history of chest pain, coughing up of blood, or chest pain - made worse with deep respirations. There is no history of temperatures, chills or infectious exposure. There is no history of night sweats, weight loss or appetite change prior to the above events. No history of leg or calf pains. No history of syncope or diaphoresis. No history of recent travel or trauma. REVIEW OF SYSTEMS: No history of nausea, vomiting or diarrhea. No acute urinary symptoms. Rest of the review of systems is negative. ALLERGIES: MORPHINE, CODEINE, DILAUDID, AND ERYTHROMYCIN. SOCIAL HISTORY: Positive for extensive tobacco usage. No alcohol. FAMILY HISTORY: No inheritable diseases. HOME MEDICATIONS: Include prednisone, Revatio, Zofran, Remeron, Lopressor, Antivert, Lovenox, Colace, Dexilant, Plavix, Pulmicort, aspirin, DuoNebs, Xanax. PHYSICAL EXAMINATION GENERAL: The patient appears comfortable this morning. She is awake and alert. She is not short of breath. She does appear very weak. VITAL SIGNS: Temperature is 98.0, pulse is 88, respiratory rate is 18, blood pressure 109/58. Oxygen saturation on nasal cannula is 95%. HEENT: Normocephalic, atraumatic. No JVD. CARDIOVASCULAR: Systolic ejection murmur at the lower left sternal border. No S3 gallop. LUNGS: Decreased breath sounds at the bases. Minimal rhonchi bilaterally. No wheezing. EXTREMITIES: Mild edema. No cyanosis, no clubbing. Calves are nontender to palpation. GI: Abdomen is soft, nontender and nondistended. Bowel sounds are positive. SKIN: No acute rash. NEUROLOGIC: Limited at the present time. PERTINENT LABORATORY DATA: Chest x-ray was done yesterday and reviewed. There is no acute disease noted. CAT scan of the head was also done yesterday. There are no acute intracranial abnormalities noted. Arterial blood gas was done on nasal cannula. Results are pH 7.34, pCO2 of 78, pO2 of 121. CBC: White count 7.2, hemoglobin 7.6, hematocrit 24.3, platelets of 188,000. Complete metabolic profile: Potassium 5.7, glucose 136, B-type natriuretic peptide 605. Total protein 5.0, albumin 2.9. Rest of the metabolic profile is within normal limits. IMPRESSION: 1. Lethargy - resolving. 2. End-stage chronic obstructive pulmonary disease. 3. Coronary artery disease. 4. Pulmonary hypertension. 5. Anemia. PLAN: The patient presents to [facility] - [facility] - because of increasing lethargy. Again, as above, the patient did receive Remeron the night before. Certainly, the Remeron does cause increased lethargy. She has been taken off the Remeron for the time being. CAT scan of the head was done yesterday. There were no acute abnormalities seen. Neurology evaluation with Dr. Grady has been ordered. This morning, the patient appears comfortable at rest. She is not short of breath. On physical exam, there is no significant bronchospasm noted. In addition, there is no significant alveolar-arterial gradient. I will continue with the current nebulizer treatments and low-dose oral steroids for now. The patient also remains on her Revatio - for the pulmonary hypertension. I did review the chest x-ray as above. No acute disease is noted. I have also reviewed the arterial blood gas. CO2 retention is noted - but with near normal pH - indicating a severe chronic abnormality. The patient appears much more awake and alert - compared to yesterday. She is clinically much improved. I did discuss the case with the daughter at bedside at length. I will also discuss the case with Dr. Wheeler this morning. Thank you very much for this pulmonary consultation. Evgeny Briggs MD [facility] # [id number] [facility]
--- NOTE | 2017-12-13 16:17 | PN ---
DATE: 12/13/2017 SUBJECTIVE: I saw her this morning with the daughter at bedside. They have a plan, they now want to take her home on hospice. She has been anemic since we will transfuse her two units of packed red blood cells and I gave her a dose of Lasix in between the two doses of packed red blood cells and I called in Beverly Latham, the hospice nurse. I am hoping to get her home tomorrow on comfort care hospice and her daughter seems to like that plan. She is much more alert today. She is not sleepy. She is going to eat some breakfast, a little bit stronger. Hopefully, this will work out home tomorrow. PHYSICAL EXAMINATION: VITAL SIGNS: She has a vital signs of 98 temperature, 93 pulse, 109/58 blood pressure, 18 respiratory rate, 93% O2 saturation. She is still refusing the BiPAP, although they help her and they have multiple demands. HEENT: Head is atraumatic and normocephalic. HEART: Regular rate. LUNGS: Decreased breath sounds, but clear. ABDOMEN: Soft. EXTREMITIES: No edema. LABORATORY DATA: She has a 7.2 white count, hemoglobin is down to 7.6, hematocrit, we will give her 2 units of packed red blood cells and Lasix 40 platelets of 188. She has a 139 sodium, potassium 4.3, BUN is 32, creatinine 0.6, GFR is greater than 60, sugar is 112, calcium is 9, total bilirubin is 0.4, AST is 24, ALT is 44, alkaline phosphatase 35, total protein is 4.7. Urine was clean. Toxicology was clean, no growth. She will have consults with Cardiology, Neurology, Pulmonary, GI and Beverly Latham. The plan is to go to hospice tomorrow at home on comfort care after transfusions today, Lasix 40. We will check on B12 level. Change in mentation, probably from Nigel Wheeler DO [email or web address]
--- NOTE | 2017-12-13 17:12 | CON ---
DATE: 12/13/2017 CARDIOLOGY CONSULTATION HISTORY OF PRESENT ILLNESS: The patient is an 82-year-old woman who has had multiple admissions including recent discharge to a subacute rehab. She became lethargic and short of breath and was brought to the emergency room. The patient's past medical history includes end-stage COPD. She has mild pulmonary hypertension documented by cardiac catheterization. In addition, she suffers from CAD and has had a stent placed in the past. A catheterization last year reveals patent stents with a nonobstructive CAD. She denies chest pain. She is currently on sildenafil for her pulmonary hypertension. She suffers from diabetes mellitus as well as anemia. SOCIAL HISTORY: The patient is a former smoker. REVIEW OF SYSTEMS: Reviewed in detail. No cardiac symptoms are noted. PHYSICAL EXAMINATION GENERAL: The patient is in no acute distress, is oriented x3 and is able to carry a conversation with her usual wit. VITAL SIGNS: Blood pressure is 109/58, the heart rate is in the 90s, normal sinus rhythm. NECK: Negative JVD. LUNGS: Clear to auscultation. HEART: Reveals S1, S2. EXTREMITIES: Without edema. EKG shows normal sinus rhythm with nonspecific ST-T changes. LABORATORY DATA: BUN and creatinine are unremarkable. Troponin is 0.08. The hemoglobin is 7.6. IMPRESSION: 1. Lethargy, which is now resolved. 2. Marked anemia today, although we will need to confirm that given her recent hemoglobin that is stable at 9.1. 3. Severe chronic obstructive pulmonary disease. 4. Pulmonary hypertension. 5. Coronary artery disease. 6. Stable angina. PLAN: Given these findings, the patient's symptoms are predominately from her end-stage COPD. We will obtain a stat repeat CBC to confirm a hemoglobin that is low today. Harrison Echavarria MD
[2017-12-13] MEDS: Sodium Chloride 0.9% 1,000 ML IV SCH (17:21)
--- NOTE | 2017-12-14 00:09 | CON ---
DATE: HISTORY OF PRESENT ILLNESS: This is an 82-year-old white female with past medical history of hypertension, COPD, coronary artery disease, came to the hospital from detention with altered mental status, does not remember what happened. She lost consciousness. Denies any chest pain, no headache and patient is bed bound for the last 3 months, not been ambulating. I am called to evaluate for altered mental status. PAST MEDICAL HISTORY: Coronary artery disease, COPD, hypertension. SOCIAL HISTORY: Does not smoke, ex-smoker. ALLERGIES: ALLERGIC TO MORPHINE, CODEINE AND DILAUDID. PHYSICAL EXAMINATION: VITAL SIGNS: Blood pressure 109/58. HEENT: Normocephalic, atraumatic. NECK: Supple. NEUROLOGIC: Awake, alert, oriented x3. No aphasia. Cranial nerves II to XII are tested. Pupils reactive. EOM intact. Visual field full. No facial asymmetry. Tongue midline. Motor: Spontaneous movement of both upper extremities. Strength 5/5 and weakness on both the lower extremities. Tone normal. Deep tendon reflexes 1+. Both plantars downgoing. Sensory appears intact. Cerebellar and gait deferred. IMPRESSION: An 82-year-old female with past medical history of hypertension and chronic obstructive pulmonary disease, came with altered mental status. CAT scan of the head was done, which was reported negative and patient has also superimposed dementia. PLAN: Workup in progress. We will follow up. We might start Aricept 10 mg p.o. daily. William Grady MD
[2017-12-14 00:11] LABS: EOS % 0.4 % (1.5-5.0); GRAN # 7.63 (1.4-6.5); GRAN % 85.5 % (50.0-68.0); LYMPH # 0.7 (1.2-3.4); LYMPH % 7.8 % (22.0-35.0); MEAN CORPUSCULAR HGB CONC 32.1 g/dl (31.0-37.0); MEAN PLATELET VOLUME 10.6 fl (7.0-11.0); MONO # 0.6 (0.1-0.6); MONO % 6.3 % (1.0-6.0); RBC 3.7 10^6/uL (3.5-6.1); RED CELL DISTRIBUTION WIDTH 17.9 % (11.5-14.5)
[2017-12-14 00:22] LABS: WHITE BLOOD COUNT 8.9 10^3/ul (4.5-11.0)
[2017-12-14 00:23] LABS: HEMOGLOBIN 11.1 g/dL (12.0-16.0)
[2017-12-14 00:24] LABS: MEAN CELL VOLUME 93.5 fl (80.0-105.0)
[2017-12-14] MEDS: Albuterol-Ipratrop 3 mg / 0.5 (3 ml) UD IH SCH ×4 (02:30→19:32)
[2017-12-14 06:55] LABS: HEMOGLOBIN 10.7 g/dL (12.0-16.0); MEAN CELL VOLUME 94.1 fl (80.0-105.0); MEAN CORPUSCULAR HEMOGLOBIN 30.1 pg (25.0-35.0); MEAN CORPUSCULAR HGB CONC 31.9 g/dl (31.0-37.0); MEAN PLATELET VOLUME 11.2 fl (7.0-11.0); RBC 3.56 10^6/uL (3.5-6.1); RED CELL DISTRIBUTION WIDTH 18.1 % (11.5-14.5); WHITE BLOOD COUNT 8.6 10^3/ul (4.5-11.0)
[2017-12-14 06:56] LABS: ALB/GLOB RATIO 1.1 (1.1-1.8); ALBUMIN 2.6 g/dL (3.0-4.8); ALT/SGPT 40 U/L (7-56); AST/SGOT 23 U/L (14-36); BLOOD UREA NITROGEN 26 mg/dL (7-21); CALCIUM 9.1 mg/dL (8.4-10.5); GFR AFRICAN-AMERICAN > 60; GFR NON-AFRICAN AMERICAN > 60
[2017-12-14] MEDS: Insulin Reg-HIGH-Coverage SC SCH ×4 (07:52→22:39)
[2017-12-14] MEDS: Budesonide 0.5 mg/2 ml Inhal Susp UD IH SCH ×2 (07:54→19:31)
--- NOTE | 2017-12-14 09:04 | PN ---
DATE: 12/14/2017 PULMONARY NOTE SUBJECTIVE: The patient appears very comfortable this morning. She is not short of breath at rest. She is awake and alert. PHYSICAL EXAMINATION: VITAL SIGNS: Temperature is 98.4, pulse 87, respirations 18/20, blood pressure 126/62. Oxygen saturation on nasal cannula is 95-96%. HEENT: Normocephalic, atraumatic. No JVD. CARDIOVASCULAR: Systolic ejection murmur at the lower left sternal border. No S3 gallop. LUNGS: Decreased breath sounds at the bases. Very minimal/less rhonchi. No wheezing. EXTREMITIES: Mild edema. No cyanosis. No clubbing. Calves are nontender to palpation. GI: Abdomen is soft, nontender and nondistended. Bowel sounds are positive. SKIN: No acute rash. NEUROLOGIC: Limited at the present time. IMPRESSION: 1. Lethargy - resolved. 2. End-stage chronic obstructive pulmonary disease. 3. Coronary artery disease. 4. Pulmonary hypertension. 5. Anemia. PLAN: The patient appears very comfortable this morning. She is not short of breath at rest. She is awake and alert. I did discuss the case with the night nurse at length. The night nurse stated that the patient had a very good night. On physical exam, only minimal bronchospasm is noted. In addition, the oxygen saturation on nasal cannula is 95-96%. I will continue with the current nebulizer treatments and low-dose oral steroids for now. The patient also remains on Revatio - for her pulmonary hypertension. I would continue with the nasal cannula during the day and BiPAP at night. This patient has chronic respiratory failure, with multiple episodes of acute respiratory failure(in addition). I feel that the BiPAP at night is essential for this patient - as it will unload her respiratory muscles during the night. In addition, the BiPAP may in fact save her from additional hospitalizations. Clinical status of the patient is significantly improved - compared to the initial presentation. However, again, unfortunately, the overall status/prognosis for this patient remains very poor. I did review the input by Beverly Latham (Palliative Care). The patient may be transitioned to hospice in the very near future. I will discuss the above with Dr. Wheeler. Evgeny Briggs MD [facility]
[2017-12-14] MEDS: Enoxaparin 40 mg Syringe SC SCH (09:09)
[2017-12-14] MEDS: Pantoprazole 40 mg EC Tab PO SCH (09:10)
[2017-12-14] MEDS: Sildenafil 20 MG TAB PO SCH ×2 (09:10→20:43)
[2017-12-14] MEDS: POLYETHYLENE GLYCOL 3350 17 GM/Dose PACKET PO SCH (09:10)
--- NOTE | 2017-12-14 11:21 | CP.PCM.PN ---
Subjective - Date & Time of Evaluation Date of Evaluation: 12/14/17 Time of Evaluation: 11:00 - Subjective Subjective: Patient seen at bedside. No acute overnight events. On Oxygen via nasal cannula. Does not converse. No distress noted. Easily arousable Objective - Vital Signs/Intake and Output Vital Signs (last 24 hours): Temp Pulse Resp BP Pulse Ox 98.4 F 103 H 20 126/62 95 12/14/17 06:00 12/14/17 10:00 12/14/17 06:00 12/14/17 09:10 12/14/17 06:00 Intake and Output: 12/14/17 12/14/17 06:59 18:59 Intake Total 335 360 Output Total 300 Balance 335 60 - Medications Medications: Current Medications Acetaminophen (Tylenol 325mg Tab) 650 mg PO Q4H PRN PRN Reason: Pain, moderate (4-7) Al Hydrox/Mg Hydrox/Simethicone (Maalox Plus 30 Ml) 30 ml PO Q6 PRN PRN Reason: Indigestion / Heartburn Albuterol/Ipratropium (Duoneb 3 Mg/0.5 Mg (3 Ml) Ud) 3 ml IH [id number] [facility] Last Admin: 12/14/17 07:55 Dose: 3 ml Alprazolam (Xanax) 0.5 mg PO Q4 PRN; Protocol PRN Reason: Anxiety Aspirin (Aspirin Chewable) 81 mg PO DAILY [facility] Last Admin: 12/14/17 09:10 Dose: 81 mg Atorvastatin Calcium (Lipitor) 10 mg PO DAILY [facility] Last Admin: 12/14/17 09:10 Dose: 10 mg Budesonide (Pulmicort Respules) 0.5 mg IH [id number] [facility] Last Admin: 12/14/17 07:54 Dose: 0.5 mg Clopidogrel Bisulfate (Plavix) 75 mg PO DAILY [facility] Last Admin: 12/14/17 09:10 Dose: 75 mg Docusate Sodium (Colace) 100 mg PO DAILY [facility] Last Admin: 12/14/17 09:10 Dose: 100 mg Donepezil HCl (Aricept) 10 mg PO HS [facility] Last Admin: 12/13/17 21:13 Dose: 10 mg Enoxaparin Sodium (Lovenox) 40 mg SC DAILY [facility] PRN Reason: Protocol Last Admin: 12/14/17 09:09 Dose: 40 mg Sodium Chloride (Sodium Chloride 0.9%) 1,000 mls @ 30 mls/hr IV .Q24H [facility] Last Admin: 12/13/17 17:21 Dose: Not Given Insulin Human Regular (Humulin R High) 0 units SC ACHS [facility] PRN Reason: Protocol Last Admin: 12/14/17 07:52 Dose: Not Given Meclizine HCl (Antivert) 12.5 mg PO BID PRN PRN Reason: Dizziness Metoprolol Tartrate (Lopressor) 12.5 mg PO BID [facility] Last Admin: 12/14/17 09:10 Dose: 12.5 mg Pantoprazole Sodium (Protonix Ec Tab) 40 mg PO ACB [facility] Last Admin: 12/14/17 09:10 Dose: 40 mg Polyethylene Glycol (Miralax) 17 gm PO DAILY [facility] Last Admin: 12/14/17 09:10 Dose: 17 gm Prednisone (Prednisone Tab) 10 mg PO DAILY [facility] Last Admin: 12/14/17 09:10 Dose: 10 mg Sildenafil Citrate (Revatio) 20 mg PO BID [facility] Last Admin: 12/14/17 09:10 Dose: 20 mg - Labs Labs: 12/14/17 06:00 12/14/17 06:00 - Constitutional Appears: Well, No Acute Distress, Confused, Chronically Ill - Head Exam Head Exam: ATRAUMATIC, NORMAL INSPECTION, NORMOCEPHALIC - Eye Exam Eye Exam: EOMI, Normal appearance, PERRL - ENT Exam ENT Exam: Mucous Membranes Moist, Normal Exam - Respiratory Exam Respiratory Exam: Decreased Breath Sounds, Rhonchi, NORMAL BREATHING PATTERN Additional comments: On nasal cannula - Cardiovascular Exam Cardiovascular Exam: REGULAR RHYTHM, RRR, +S1, +S2. absent: Murmur - GI/Abdominal Exam GI & Abdominal Exam: Distended, Soft, Normal Bowel Sounds - Neurological Exam Neurological Exam: Altered Assessment and Plan - Assessment and Plan (Free Text) Assessment: 82 year old female with h/o CAD s/p stents, Emphysema on home O2, Pulm HTN, HLD , HTN who presents with AMS and chronic normocytic anemia. No s/s of overt GI bleeding. Plan: -she has a chronic normocytic anemia, prior B12 deficiency, normal iron studies -no overt GI blood loss at this time or signs of hemorrhage -she has chronic cardiopulmonary disease requiring home O2 -would recommend protonix 40 mg daily for GERD - No indication for endoscopy/colonoscopy in the absence of overt GI blood loss considering her overall condition as well as acute change in mental status - Family is moving towards hospice care - Will sign off at this time - Thank you for letting us participate in the care of your patient
--- NOTE | 2017-12-14 13:50 | PN ---
DATE: 12/14/2017 CARDIOLOGY FOLLOWUP SUBJECTIVE: The patient is awake, alert and without dyspnea. PHYSICAL EXAMINATION: VITAL SIGNS: Blood pressure is 126/62 with the heart rates in the 90s. NECK: Negative JVD. LUNGS: Without rales. HEART: Reveals S1, S2. EXTREMITIES: Without edema. LABORATORY DATA: Hemoglobin is 10.7. Chemistries: BUN and creatinine are 26 and 0.6. IMPRESSION 1. Chronic obstructive pulmonary disease, which is better. 2. Dyspnea is better. 3. History of pulmonary hypertension. 4. Stable angina. 5. Coronary artery disease. PLAN: Given these findings, we will discontinue telemetry today. Harrison Echavarria MD
[2017-12-14] MEDS ORDERED: RANEXA PO SCH (21:30)
[2017-12-14] MEDS: RANEXA 1000 MG PO SCH (22:29)
[2017-12-15] MEDS: Albuterol-Ipratrop 3 mg / 0.5 (3 ml) UD IH SCH ×4 (02:40→21:24)
--- NOTE | 2017-12-15 06:36 | DS ---
HOSPITAL COURSE: After multiple phone calls with family yesterday, they decided to take Shahida home today on palliative care. She is on Antivert, Aricept, aspirin, Colace, DuoNeb, Lipitor, Lopressor, Lovenox, Maalox, milk of magnesia, Plavix, prednisone, Protonix, Pulmicort, Revatio, Tylenol and Xanax. She is comfortable this morning. No complaints. She is hungry. She is feeling well. No chest pain or shortness of breath, the best I have seen her in a few days. PHYSICAL EXAMINATION: VITAL SIGNS: She has 98.4 temperature, 87 pulse, 126/62 blood pressure, 20 respiratory rate, 95% of O2 sat on nasal cannula 3 L. HEENT: Head is atraumatic, normocephalic. HEART: Regular rate. LUNGS: Decreased breath sounds but clear. ABDOMEN: Soft. EXTREMITIES: No edema. LABORATORY DATA: She has 8.6 white count, 10.7 hemoglobin, 30.5 hematocrit, 169 platelets. She has 139 sodium, potassium 3.6, BUN 26, creatinine 0.3, GFR greater than 60, sugar is 103, calcium 9.1, total bilirubin is 0.68. AST is 23, ALT is 40, alkaline phosphatase 46. PLAN: She will be discharged today home that is my plan. She was seen by Neurology, Cardiology, Palliative Care, GI. She had change in mentation. She has end-stage COPD, pulmonary hypertension, anemia. The lethargy is improved. the patient needs the head of her bed elevated more than 30 degrees most of the time dut to chf and also due to her end stage copd Nigel Wheeler DO JO[facility]
[2017-12-15 07:10] LABS: HEMOGLOBIN 10.8 g/dL (12.0-16.0); MEAN CORPUSCULAR HEMOGLOBIN 29.8 pg (25.0-35.0); MEAN CORPUSCULAR HGB CONC 31.4 g/dl (31.0-37.0); MEAN PLATELET VOLUME 10.8 fl (7.0-11.0); RBC 3.62 10^6/uL (3.5-6.1); RED CELL DISTRIBUTION WIDTH 17.1 % (11.5-14.5); WHITE BLOOD COUNT 5.5 10^3/ul (4.5-11.0)
[2017-12-15] MEDS: Budesonide 0.5 mg/2 ml Inhal Susp UD IH SCH ×2 (07:28→21:24)
[2017-12-15 07:33] LABS: ALB/GLOB RATIO 1.1 (1.1-1.8); ALBUMIN 2.6 g/dL (3.0-4.8); ALT/SGPT 36 U/L (7-56); AST/SGOT 18 U/L (14-36); BLOOD UREA NITROGEN 21 mg/dL (7-21); CALCIUM 9.2 mg/dL (8.4-10.5); GFR AFRICAN-AMERICAN > 60; GFR NON-AFRICAN AMERICAN > 60
[2017-12-15] MEDS: Insulin Reg-HIGH-Coverage SC SCH ×4 (08:33→22:07)
[2017-12-15] MEDS: POLYETHYLENE GLYCOL 3350 17 GM/Dose PACKET PO SCH (09:39)
[2017-12-15] MEDS: Sildenafil 20 MG TAB PO SCH ×2 (09:39→17:39)
[2017-12-15] MEDS: DEXILANT 60 MG PO SCH (09:40)
[2017-12-15] MEDS: RANEXA 1000 MG PO SCH ×2 (09:40→17:29)
[2017-12-15] MEDS: Enoxaparin 40 mg Syringe SC SCH (09:40)
[2017-12-15] MEDS ORDERED: DEXILANT 60 MG PO SCH (10:00)
--- NOTE | 2017-12-15 10:48 | PN ---
DATE: 12/15/2017 PULMONARY NOTE SUBJECTIVE: Patient appears very comfortable this morning. She is not short of breath at rest. PHYSICAL EXAMINATION: VITAL SIGNS (Last noted in the computer): Temperature is 98.4, pulse 96, respirations 16, blood pressure 124/66. Oxygen saturation on nasal cannula is 96%. HEENT: Normocephalic, atraumatic. No JVD. CARDIOVASCULAR: Systolic ejection murmur at the lower left sternal border. No S3 gallop. LUNGS: Decreased breath sounds at the bases. Very minimal rhonchi. No wheezing. EXTREMITIES: Mild edema. No cyanosis, no clubbing. Calves are nontender to palpation. GASTROINTESTINAL: Abdomen is soft, nontender and nondistended. Bowel sounds are positive. SKIN: No acute rash. NEUROLOGIC: Exam limited at the present time. IMPRESSION: 1. Lethargy - resolved. 2. End-stage chronic obstructive pulmonary disease. 3. Coronary artery disease. 4. Pulmonary hypertension. 5. Anemia. PLAN: Patient appears very comfortable this morning. She is not short of breath at rest. She is awake and alert. I did discuss the case with the night nurse at length. The night nurse stated that the patient had a good night. On physical exam, there is only very minimal bronchospasm noted. In addition, there is no significant alveolar-arterial gradient. I will continue the current nebulizer treatments and low-dose oral steroids for now. The patient also remains on her Revatio - for her pulmonary hypertension. Inputs by Cardiology and Neurology are noted. Clinical status of the patient is certainly improved - compared to the initial presentation. However, again, unfortunately, the future status/prognosis for this patient remains very poor. All are aware. I will discuss the above with Dr. Wheeler. Evgeny Briggs MD [facility]
[2017-12-15] MEDS ORDERED: Albuterol-Ipratrop 3 mg / 0.5 (3 ml) UD IH STA (11:28)
--- NOTE | 2017-12-15 15:02 | PN ---
DATE: SUBJECTIVE: I saw her resting comfortably in bed. She is in good spirits. She is happy. She is alert. She is hungry. Best I have seen her in a few days. CURRENT MEDICATIONS: She is currently on Antivert, Aricept, aspirin, Colace, DuoNebs. HOME MEDICATIONS: Insulin, Lipitor, Lopressor, Lovenox, MiraLax, Plavix, prednisone, Pulmicort, Revatio, IV fluids, Tylenol, and Xanax. OBJECTIVE: VITAL SIGNS: She has 97.6 temperature, 67 pulse, 115/62 blood pressure, 20 respiratory rate, 94% O2 sat on room air. HEENT: Head is atraumatic and normocephalic. HEART: Regular rate. LUNGS: Decreased breath sounds, but clear. ABDOMEN: Soft. EXTREMITIES: No edema. LABORATORY DATA: She has a 5.5 white count, 10.8 hemoglobin, 34.4 hematocrit with 147 platelets. Sodium 138, potassium 3.9. BUN is 21, creatinine 0.5. GFR is greater than 60. Sugar is 89. Calcium is 9.2. Total bili is 0.7, AST is 18, ALT is 36, alkaline phosphatase 43, total protein 5. She is being seen by Cardiology, GI, and Pulmonary. I believe tomorrow is the day they are going to prepare to get her home on palliative care. They have everything arranged for tomorrow, hospital bed, at least she is on CPAP and we will give all the things that she needs for home tomorrow. Social service is working on. She has end-stage COPD, history of pulmonary hypertension, unstable angina, coronary artery disease. Continue aggressive treatment and care. I will check her labs tomorrow. Plan will be to discharge her home tomorrow. Nigel Wheeler DO
--- NOTE | 2017-12-15 17:14 | PN ---
DATE: 12/15/2017 CARDIOLOGY FOLLOWUP SUBJECTIVE: The patient is mildly short of breath this morning. OBJECTIVE: VITAL SIGNS: Blood pressure is 115/62, the heart rate in the 60s. NECK: Negative JVD. LUNGS: Decreased breath sounds without rales. HEART: With S1, S2. EXTREMITIES: Without edema. LABORATORY DATA: Hemoglobin is 10.8, BUN and creatinine is 21 and 0.5. IMPRESSION: 1. Mildly dyspneic this morning. 2. Severe chronic obstructive pulmonary disease. 3. Stable angina. 4. History of coronary artery disease. 5. Mild pulmonary hypertension. 6. Anemia. PLAN: Given these findings, we will give the patient a bronchodilator treatment today. The patient is also be on medications for her pulmonary hypertension. Harrison Echavarria MD
[2017-12-16] MEDS: Albuterol-Ipratrop 3 mg / 0.5 (3 ml) UD IH SCH ×3 (01:32→12:42)
[2017-12-16 07:02] LABS: HEMOGLOBIN 11.5 g/dL (12.0-16.0); MEAN CORPUSCULAR HEMOGLOBIN 30.3 pg (25.0-35.0); MEAN CORPUSCULAR HGB CONC 31.9 g/dl (31.0-37.0); MEAN PLATELET VOLUME 10.9 fl (7.0-11.0); RBC 3.8 10^6/uL (3.5-6.1); RED CELL DISTRIBUTION WIDTH 16.9 % (11.5-14.5); WHITE BLOOD COUNT 6.1 10^3/ul (4.5-11.0)
[2017-12-16 07:46] LABS: ALB/GLOB RATIO 1.1 (1.1-1.8); ALBUMIN 2.6 g/dL (3.0-4.8); ALT/SGPT 38 U/L (7-56); AST/SGOT 19 U/L (14-36); BLOOD UREA NITROGEN 28 mg/dL (7-21); CALCIUM 9.2 mg/dL (8.4-10.5); GFR AFRICAN-AMERICAN > 60; GFR NON-AFRICAN AMERICAN > 60
[2017-12-16] MEDS: Budesonide 0.5 mg/2 ml Inhal Susp UD IH SCH (07:57)
[2017-12-16] MEDS: Insulin Reg-HIGH-Coverage SC SCH ×3 (08:10→17:00)
[2017-12-16] MEDS: RANEXA 1000 MG PO SCH (10:12)
[2017-12-16] MEDS: POLYETHYLENE GLYCOL 3350 17 GM/Dose PACKET PO SCH (10:13)
[2017-12-16] MEDS: DEXILANT 60 MG PO SCH (10:13)
[2017-12-16] MEDS: Enoxaparin 40 mg Syringe SC SCH (10:14)
[2017-12-16] MEDS: Sildenafil 20 MG TAB PO SCH ×2 (10:28→17:21)
--- NOTE | 2017-12-16 11:28 | PN ---
DATE: 12/16/2017 PULMONARY NOTE SUBJECTIVE: The patient appears very comfortable this morning. She is not short of breath at rest. PHYSICAL EXAMINATION VITAL SIGNS: Temperature is 98.2, pulse is 77, respirations 18, blood pressure 145/75. Oxygen saturation on nasal cannula is 98%. HEENT: Normocephalic, atraumatic. No JVD. CARDIOVASCULAR: Systolic ejection murmur at the lower left sternal border. No S3 gallop. LUNGS: Decreased breath sounds at the bases. Very minimal/less rhonchi. No wheezing. EXTREMITIES: Mild edema. No cyanosis, no clubbing. Calves are nontender to palpation. GI: Abdomen is soft, nontender and nondistended. Bowel sounds are positive. SKIN: No acute rash. NEUROLOGIC: Limited at the present time. IMPRESSION: 1. Lethargy - resolved. 2. End-stage chronic obstructive pulmonary disease. 3. Coronary artery disease. 4. Pulmonary hypertension. 5. Anemia. PLAN: The patient appears very comfortable this morning. She is not short of breath at rest. She is awake and alert. She does state to feeling much better overall. I did discuss the case with the night nurse at length. The night nurse stated that the patient had a very good night. On physical exam, her bronchospasm continues to resolve. In addition, the oxygen saturation on nasal cannula is now 98%. I will continue with the current nebulizer treatments and low-dose oral steroids for now. The patient will also remain on her Revatio - for her pulmonary hypertension. I did discuss the case with the Kevin sales representative wire rope yesterday. The patient will be transitioned to a Trilogy ventilator at home. Instructions have been given. Clinical status of the patient is significantly improved - compared to the initial presentation. However, again, unfortunately, the overall status/prognosis for this deisy patient remains poor. All are aware. I did discuss the above with Dr. Wheeler. Evgeny Briggs MD JOSEPH
--- NOTE | 2017-12-16 13:43 | PN ---
DATE: 12/16/2017 CARDIOLOGY FOLLOWUP SUBJECTIVE: The patient's breathing much improved with bronchodilator treatment. PHYSICAL EXAMINATION VITAL SIGNS: Blood pressure is 145/75, heart rate in the 70s. NECK: Negative JVD. LUNGS: Without rales. HEART: Reveal S1, S2. EXTREMITIES: Without edema. LABORATORY DATA: Hemoglobin is 11.5. Chemistries: BUN and creatinine are unremarkable. IMPRESSION 1. Severe chronic obstructive pulmonary disease. 2. Mild pulmonary hypertension. 3. Stable angina. 4. Coronary artery disease. 5. Dyspnea, which is better. PLAN: Given these findings, the patient is scheduled for discharge this weekend. We will continue bronchodilators. Home oxygen will be necessary. Harrison Echavarria MD
[2017-12-16 17:24] VITALS: BP 112/56; PULSE 81
[2017-12-16 17:35] VITALS: RESP 22; TEMP 97.3; O2SAT 91
--- NOTE | 2017-12-17 02:05 | DS ---
HOSPITAL COURSE: She is going to be going home on palliative care as per family's wishes. She is on Antivert, Aricept, aspirin, Colace and DuoNebs. Her home medications: Ranexa, Dexilant, Lipitor, Lopressor, Lovenox, MiraLax, Plavix, prednisone, Pulmicort, Revatio, Tylenol and Xanax. PHYSICAL EXAMINATION: GENERAL: She is alert, awake, comfortable, slept well. Good appetite. No pain. VITAL SIGNS: 98.2 temperature, 77 pulse, 145/75 blood pressure, 18 respiratory rate, 98% O2 sat on 3 L nasal cannula. She is going home with oxygen and BiPAP. HEENT: Head is atraumatic, normocephalic. HEART: Regular rate. LUNGS: Decreased breath sounds, but clear. ABDOMEN: Soft. EXTREMITIES: No edema. LABORATORY DATA: She has a 6.1 white count, 11.5 hemoglobin, 36.1 hematocrit with 167 platelets. She has a 140 sodium, potassium 3.8, BUN is 28, creatinine 0.5, GFR is greater than 60, sugar is 95 and calcium is 9.2. Total bili is 0.5. AST is 19, ALT is 38, alk phos 45, total protein is 5. ASSESSMENT AND PLAN: She is going to be discharged. Discuss with Pulmonology, Cardiology and GI. This is good if she is going to be on palliative care as per family's wishes. She had multiple issues while she was here. She has end-stage chronic obstructive pulmonary disease, end-stage pulmonary hypertension, anemia, coronary artery disease, change in mentation and debility. Nigel Wheeler DO
== END 2017-12-16 18:23 | disposition hospice, home (50) | DRG 191 ==
LOC: ED 06:14 → ERH 17:20 → 2RNO 20:57 → OBSVTOIN 12-13 11:14 → 5RSO 12-14 13:51
PROVIDERS: ADMIT Family Medicine; ATTEND Family Medicine
PROC: 5A09457 Assistance with Respiratory Ventilation, 24-96 Consecutive Hours, Continuous Positive Airway Pressure (ICD-10-PCS; principal; 2017-12-12)
PROC: 30233N1 Transfusion of Nonautologous Red Blood Cells into Peripheral Vein, Percutaneous Approach (ICD-10-PCS; 2017-12-13)
DX: J44.1 Chronic obstructive pulmonary disease with (acute) exacerbation (principal); J96.10 Chronic respiratory failure, unspecified whether with hypoxia or hypercapnia; I11.0 Hypertensive heart disease with heart failure; I50.9 Heart failure, unspecified; I25.118 Atherosclerotic heart disease of native coronary artery with other forms of angina pectoris; I27.20 Pulmonary hypertension, unspecified; D64.9 Anemia, unspecified; R53.81 Other malaise; Z51.5 Encounter for palliative care; H26.9 Unspecified cataract; M19.90 Unspecified osteoarthritis, unspecified site; L89.152 Pressure ulcer of sacral region, stage 2; K21.9 Gastro-esophageal reflux disease without esophagitis; E78.00 Pure hypercholesterolemia, unspecified; R41.82 Altered mental status, unspecified; R53.1 Weakness; Z99.81 Dependence on supplemental oxygen; Z95.5 Presence of coronary angioplasty implant and graft; I25.2 Old myocardial infarction; Z87.891 Personal history of nicotine dependence; Z87.440 Personal history of urinary (tract) infections; Z88.5 Allergy status to narcotic agent; Z87.01 Personal history of pneumonia (recurrent)

== ENCOUNTER 2017-12-21 13:43 | Inpatient (IN) | payer MEDICAID, MEDICARE ==
[2017-12-21 13:44] VITALS: BMI 23.6
--- NOTE | 2017-12-21 15:07 | ED PDOC ---
Arrival/HPI - General Chief Complaint: Altered Mental Status Time Seen by Provider: 12/21/17 13:47 Historian: Family - History of Present Illness Narrative History of Present Illness (Text): 12/21/17 14:57 A 82 year old female brought into the emergency department by family complaining of progressively worsening altered mental status over the past 3-4 months. Family reports patient is experiencing CO2 retention and placed on an AVAP machine to control her oxygenation and CO2 retention. Patient has been using the machine for 5 days, family reports a drop in her pulse ox down to 70. Patient is bed bound, unable to care for herself. Family report they were moving patient out of her bed and heard a "crack" in her back. Patient has a history of compression fracture. Family also note dark urine. Patient unable to provide any further history, HPI and ROS limited. Patient is full code. PMD: Dr. Wheeler Time/Duration: Other (few months) Symptom Course: Worsening Context: Home Past Medical History - Provider Review Nursing Documentation Reviewed: Yes - Infectious Disease Hx of Infectious Diseases: None - Tetanus Immunization Tetanus Immunization: Unknown - Cardiac Hx Congestive Heart Failure: Yes - Pulmonary Hx Chronic Obstructive Pulmonary Disease (COPD): Yes - Neurological Hx Neurological Disorder: Yes Hx Dizziness: Yes - HEENT Hx HEENT Disorder: Yes Hx Cataracts: Yes (b/l no sx) - Renal Hx Renal Disorder: No - Endocrine/Metabolic Hx Endocrine Disorders: No Hx Diabetes Mellitus Type 2: Yes - Hematological/Oncological Hx Anemia: Yes (blood transfusion) Hx Shingles: (pt denies having shingles) - Integumentary Hx Dermatological Disorder: Yes Other/Comment: 1cm x 1cm small opening at butt crack, above that 0.5cm x 0.2cm small opening, right buttock cheek pinpoint opening and redness - Musculoskeletal/Rheumatological Hx Arthritis: Yes Hx Back Pain: Yes Hx Falls: Yes Hx Fractures: Yes (left wrist) Hx Herniated Disk: Yes Hx Osteoarthritis: Yes Hx Osteoporosis: Yes Hx Spinal Stenosis: Yes Hx Unsteady Gait: Yes (pt has not walked since 09/2017) Other/Comment: pt has been back and forth between [facility] [place] and rehab since september 2017 - Gastrointestinal Hx Gastrointestinal Disorders: Yes (exploratry lap with 2 inches of bowel resected) Hx Diverticulitis: Yes Hx Gall Bladder Disease: Yes (CHLOECYSTECTOMY) Hx Gastroesophageal Reflux: Yes Other/Comment: celiac disease, umbilical hernia - Genitourinary/Gynecological Hx Genitourinary Disorders: Yes Hx Incontinence: Yes Hx Urinary Tract Infection: Yes - Psychiatric Hx Anxiety: Yes Hx Panic Disorder: Yes Hx Substance Use: No - Surgical History Hx Appendectomy: Yes Hx Cardiac Catheterization: Yes Hx Cholecystectomy: Yes Hx Coronary Stent: Yes (x2 ptca) Other/Comment: ovarian cystectomy, exp lap 2" bowel resected, sx for obstruction , norma picc, t12 kyphoplasty - Anesthesia Hx Anesthesia: Yes Hx Anesthesia Reactions: No Hx Malignant Hyperthermia: No - Suicidal Assessment Feels Threatened In Home Enviroment: No Family/Social History - Physician Review Nursing Documentation Reviewed: Yes Family/Social History: No Known Family HX Smoking Status: Former Smoker Hx Alcohol Use: No Hx Substance Use: No Hx Substance Use Treatment: No Allergies/Home Meds Allergies/Adverse Reactions: Allergies morphine Allergy (Verified 12/21/17 14:37) VOMITING codeine Adverse Reaction (Verified 12/21/17 14:37) VOMITING hydromorphone HCl [From Dilaudid] Adverse Reaction (Verified 12/21/17 14:37) VOMITING MYOCINS Adverse Reaction (Uncoded 12/21/17 14:37) VOMITING Home Medications: Home Meds Medication Instructions Recorded Confirmed Dexlansoprazole [Dexilant] 60 mg PO DAILY 01/19/16 12/21/17 Meclizine HCl 12.5 mg PO Q6 PRN 11/26/17 12/21/17 Atorvastatin Calcium 10 mg PO DAILY 12/12/17 12/21/17 Clopidogrel [Plavix] 75 mg PO DAILY 12/12/17 12/21/17 Review of Systems - Review of Systems Systems not reviewed;Unavailable: Altered Mental Status Physical Exam Vital Signs Pulse Resp BP Pulse Ox 12/21/17 15:30 75 26 H 114/59 L 93 L Appearance: Positive for: Non-Toxic, Comfortable, Cachectic Pain Distress: None - Systems Exam Head: Present: Atraumatic, Normocephalic Pupils: Present: PERRL Extroacular Muscles: Present: EOMI Conjunctiva: Present: Normal Mouth: Present: Moist Mucous Membranes Neck: Present: Normal Range of Motion Respiratory/Chest: Present: Good Air Exchange, Rales (fine rales to bilateral bases posteriorly). No: Respiratory Distress, Accessory Muscle Use Cardiovascular: Present: Murmurs (soft systolic murmur), Normal S1, S2 Abdomen: No: Tenderness, Distention, Peritoneal Signs Upper Extremity: Present: Normal Inspection. No: Cyanosis, Edema Lower Extremity: Present: Normal Inspection. No: Edema Skin: Present: Warm, Dry, Normal Color. No: Rashes Medical Decision Making ED Course and Treatment: 12/21/17 14:57 Impression: A 82 year old female brought in for worsening altered mental status Plan: -- LS spine xray -- Chest xray -- Labs -- Blood and Urine culture -- Urinalysis -- Reassess and disposition Progress Notes: Report Date : 12/21/2017 17:21:34 PROCEDURE: CHEST RADIOGRAPH, 1 VIEW Dictator : Megan Lloyd MD IMPRESSION: Suspect right lower lobe pneumonia and small right pleural effusion. Background of COPD. - Lab Interpretations Lab Results: 12/21/17 15:00 12/21/17 15:00 Lab Results 12/21/17 15:40: pCO2 51 H, pO2 54.0 L, HCO3 27.5, ABG pH 7.34 L, ABG Total CO2 29.1 H, ABG O2 Saturation 92.1 L, ABG Base Excess 0.9, ABG Potassium 3.3 L, Glucose 123 H, Lactate 0.5 L, FiO2 32.0, Sodium 142.0, Chloride 107.0, Arterial Blood Potassium 3.3 L 12/21/17 15:00: Blood Type A POSITIVE, Antibody Screen Negative, BBK History Checked Patient has bt 12/21/17 15:00: Sodium 137, Potassium 4.3, Chloride 98, Carbon Dioxide 35 H, Anion Gap 8 L, BUN 24 H, Creatinine 0.5 L, Est GFR ( Amer) > 60, Est GFR (Non-Af Amer) > 60, Random Glucose 134 H, Calcium 9.3, Total Bilirubin 0.3, AST 22, ALT 41, Alkaline Phosphatase 46, Lactate Dehydrogenase 321 L, Total Creatine Kinase < 20 L, Troponin I < 0.01 D, Total Protein 5.4 L, Albumin 2.9 L , Globulin 2.5, Albumin/Globulin Ratio 1.2 12/21/17 15:00: PT 11.5, INR 1.01 12/21/17 15:00: WBC 6.6, RBC 3.68, Hgb 11.0 L, Hct 35.0 L, MCV 95.1, MCH 29.9, MCHC 31.4, RDW 15.8 H, Plt Count 184, MPV 11.4 H, Gran % 86.4 H, Lymph % (Auto) 8.4 L, [place] % (Auto) 3.6, Eos % (Auto) 1.4 L, Baso % (Auto) 0.2, Gran # 5.69, Lymph # (Auto) 0.6 L, [place] # (Auto) 0.2, Eos # (Auto) 0.1, Baso # (Auto) 0.01 I have reviewed the lab results: Yes - RAD Interpretation Radiology Orders: 12/21/17 14:43 CHEST ONE VIEW [RAD] Stat LS SPINE AP/LAT [RAD] Stat - Medication Orders Current Medication Orders: Levofloxacin/Dextrose (Levaquin 750mg) 750 mg IVPB ONCE ONE PRN Reason: Protocol Stop: 12/21/17 19:23 - Scribe Statement The provider has reviewed the documentation as recorded by the Araceli De Dios Provider Scribe Attestation: All medical record entries made by the Scribe were at my direction and personally dictated by me. I have reviewed the chart and agree that the record accurately reflects my personal performance of the history, physical exam, medical decision making, and the department course for this patient. I have also personally directed, reviewed, and agree with the discharge instructions and disposition. Disposition/Present on Arrival - Present on Arrival Any Indicators Present on Arrival: No History of DVT/PE: No History of Uncontrolled Diabetes: No Urinary Catheter: No History of Decub. Ulcer: No History Surgical Site Infection Following: None - Disposition Have Diagnosis and Disposition been Completed?: Yes Diagnosis: Pneumonia, Hypoxia, Hypercarbia, COPD (chronic obstructive pulmonary disease) Disposition: HOSPITALIZED Disposition Time: 19:34 Patient Plan: Admission, Telemetry Condition: FAIR
[2017-12-21 15:44] LABS: ARTERIAL BLOOD GAS HCO3 27.5 mmol/L (21-28); ARTERIAL BLOOD GAS O2 SAT 92.1 % (95-98); ARTERIAL BLOOD GAS PCO2 51 mm/Hg (35-45); ARTERIAL BLOOD GAS PH 7.34 (7.35-7.45); ARTERIAL BLOOD GAS TCO2 29.1 mmol.L (22-28)
[2017-12-21 15:59] LABS: BASO # 0.01 K/mm3 (0.0-2.0); BASO % 0.2 % (0.0-3.0); EOS # 0.1 (0.0-0.7); EOS % 1.4 % (1.5-5.0); GRAN # 5.69 (1.4-6.5); GRAN % 86.4 % (50.0-68.0); LYMPH # 0.6 (1.2-3.4); LYMPH % 8.4 % (22.0-35.0); MEAN CELL VOLUME 95.1 fl (80.0-105.0); MEAN CORPUSCULAR HEMOGLOBIN 29.9 pg (25.0-35.0); MEAN CORPUSCULAR HGB CONC 31.4 g/dl (31.0-37.0); MEAN PLATELET VOLUME 11.4 fl (7.0-11.0); MONO # 0.2 (0.1-0.6); MONO % 3.6 % (1.0-6.0); RBC 3.68 10^6/uL (3.5-6.1); RED CELL DISTRIBUTION WIDTH 15.8 % (11.5-14.5); WHITE BLOOD COUNT 6.6 10^3/ul (4.5-11.0)
[2017-12-21 16:08] LABS: ALB/GLOB RATIO 1.2 (1.1-1.8); ALBUMIN 2.9 g/dL (3.0-4.8); ALT/SGPT 41 U/L (7-56); AST/SGOT 22 U/L (14-36); BLOOD UREA NITROGEN 24 mg/dL (7-21); CALCIUM 9.3 mg/dL (8.4-10.5); GFR AFRICAN-AMERICAN > 60; GFR NON-AFRICAN AMERICAN > 60
[2017-12-21 16:12] LABS: INR 1.01 (0.93-1.08); PROTHROMBIN TIME 11.5 SECONDS (9.4-12.5)
[2017-12-21 16:19] LABS: TROPONIN I < 0.01 ng/mL
--- NOTE | 2017-12-21 17:29 | RAD ---
PROCEDURE: CHEST RADIOGRAPH, 1 VIEW HISTORY: COPD exacerbation COMPARISON: 12/12/2017. FINDINGS: LUNGS: The lungs are hyperinflated and there is peribronchial thickening with chronic changes in both lungs. There is interval development of patchy airspace disease in the right lower lobe. PLEURA: Suspect small right pleural effusion. No pneumothorax or left pleural fluid seen. CARDIOVASCULAR: Normal. OSSEOUS STRUCTURES: Within normal limits for the patient's age. VISUALIZED UPPER ABDOMEN: Normal. OTHER FINDINGS: None. IMPRESSION: Suspect right lower lobe pneumonia and small right pleural effusion. Background of COPD.
[2017-12-21] MEDS ORDERED: levoFLOXacin 750 mg in D5W 150 ML BAG IVPB ONE (19:22)
[2017-12-21 20:35] LABS: URINE BILIRUBIN SMALL (NEGATIVE); URINE BLOOD TRACE-INTACT (NEGATIVE); URINE GLUCOSE (UA) NEGATIVE (NEGATIVE); URINE LEUKOCYTE ESTERASE MODERATE Leu/uL (NEGATIVE); URINE PROTEIN 30 mg/dL (<30 mg/dL); URINE UROBILINOGEN 0.2 E.U./dL (<1 E.U./dL)
[2017-12-21 20:39] LABS: URINE APPEARANCE SL CLOUDY (CLEAR); URINE COLOR YELLOW (YELLOW)
[2017-12-21] MEDS: Budesonide 0.5 mg/2 ml Inhal Susp UD IH SCH (20:42)
[2017-12-21] MEDS: Albuterol-Ipratrop 3 mg / 0.5 (3 ml) UD IH SCH (20:43)
[2017-12-21 20:56] LABS: URINE BACTERIA MANY (NEG); URINE WBC TNTC /hpf (0-6)
[2017-12-21] MEDS: Insulin Reg-MEDIUM-Coverage SC SCH (22:56)
--- NOTE | 2017-12-22 00:39 | CP.PCM.PN ---
Subjective - Date & Time of Evaluation Date of Evaluation: 12/22/17 Time of Evaluation: 00:35 - Subjective Subjective: It was requested to order for BiPAP. As per primary nurse of patient , family member wanted patient to have BiPAP. I spoke to patient. She has no acute complaints. When I asked her about having BiPAP at home , she did not answer my question with certainty. Seems to be not completely with herself. Medical record was reviewed. This 82 year old white woman was admitted with progressively increasing altered mental status, hypoxia. Has PMH of OK, CHF, acute respiratory failure, HTN, endstage COPD, pulmonary HTN , bilateral cataract, anemia, shingles, arthritis. Objective - Vital Signs/Intake and Output Vital Signs (last 24 hours): Temp Pulse Resp BP Pulse Ox 98.2 F 79 20 141/77 91 L 12/22/17 00:01 12/22/17 00:01 12/22/17 00:01 12/22/17 00:01 12/22/17 00:01 - Medications Medications: Current Medications Acetaminophen (Tylenol 325mg Tab) 650 mg PO Q4H PRN PRN Reason: Pain, moderate (4-7) Albuterol/Ipratropium (Duoneb 3 Mg/0.5 Mg (3 Ml) Ud) 3 ml IH [id number] [facility] Last Admin: 12/21/17 20:43 Dose: 3 ml Alprazolam (Xanax) 0.5 mg PO Q6 JEFFERY PRN Reason: Protocol Stop: 12/29/17 00:01 Aspirin (Aspirin Chewable) 81 mg PO DAILY [facility] Atorvastatin Calcium (Lipitor) 10 mg PO DAILY [facility] Budesonide (Pulmicort Respules) 0.5 mg IH [id number] [facility] Last Admin: 12/21/17 20:42 Dose: 0.5 mg Clopidogrel Bisulfate (Plavix) 75 mg PO DAILY JEFFERY Donepezil HCl (Aricept) 10 mg PO HS JEFFERY Enoxaparin Sodium (Lovenox) 40 mg SC DAILY [facility] PRN Reason: Protocol Sodium Chloride (Sodium Chloride 0.45%) 1,000 mls @ 30 mls/hr IV .Q24H JEFFERY Insulin Human Regular (Humulin R Med) 0 units SC ACHS [facility] PRN Reason: Protocol Last Admin: 12/21/17 22:56 Dose: Not Given Meclizine HCl (Antivert) 12.5 mg PO Q6 PRN PRN Reason: Dizziness Metoprolol Tartrate (Lopressor) 12.5 mg PO BID [facility] Non-Formulary Medication (Dexlansoprazole [Dexilant]) 60 mg PO DAILY [facility] Polyethylene Glycol (Miralax) 17 gm PO DAILY [facility] Prednisone (Prednisone Tab) 10 mg PO DAILY JEFFERY Sildenafil Citrate (Revatio) 20 mg PO BID JEFFERY - Labs Labs: PT 11.5 SECONDS (9.4-12.5) 12/21/17 15:00 INR 1.01 (0.93-1.08) 12/21/17 15:00 - Constitutional Appears: Well, No Acute Distress - Head Exam Head Exam: ATRAUMATIC, NORMAL INSPECTION, NORMOCEPHALIC - Eye Exam Eye Exam: Normal appearance - ENT Exam ENT Exam: Normal External Ear Exam - Neck Exam Neck Exam: Normal Inspection - Respiratory Exam Respiratory Exam: NORMAL BREATHING PATTERN - Cardiovascular Exam Cardiovascular Exam: absent: JVD - GI/Abdominal Exam GI & Abdominal Exam: absent: Distended - Rectal Exam Rectal Exam: Deferred - Exam Additional comments: Deferred. - Extremities Exam Extremities Exam: Normal Inspection - Back Exam Back Exam: NORMAL INSPECTION - Neurological Exam Neurological Exam: Altered - Psychiatric Exam Psychiatric exam: Normal Affect, Normal Mood - Skin Skin Exam: Normal Color Assessment and Plan - Assessment and Plan (Free Text) Assessment: AMS. HTN. COPD. Anemia. Hx CHF. Hx OK. Arthritis. Plan: Will order BiPAP . Management as per PMD.
[2017-12-22] MEDS: Sodium Chloride 0.45% 1,000 ML IV SCH ×2 (00:50→22:00)
--- NOTE | 2017-12-22 04:23 | HP ---
HISTORY OF PRESENT ILLNESS: I know [facility]ida very well [facility] and [facility]. She has been back and forth about a year now. She is an 82-year-old female who went home for approximately, maybe four to five days, and then they could not take care of her. The son called and said they are having a hard time taking care of her, she has worsening altered mental status. They are also stating that she is having CO2 retention, having a problem with AVAPS machine. It is hard to control the oxygen and the CO2. They are not sure how to use it. The oxygen drops into the 70 sometimes, I do not know if I believe that. They do have oxygen at home. There is also some question about hearing a crack in her back. She does have a history of compression fractures, also has history of dark urine. She is a full code. She has had pneumonia, COPD. She also gets severe pulmonary hypertension and end-stage COPD. She has bilateral cataracts. She has diabetes. She had blood transfusions. She has had a sacral ulcer of 1 cm and above it there is another one. So, she has a few sacral ulcers. She has back pain, falls, left wrist fracture, herniated disc, osteoarthritis, osteoporosis, spinal stenosis. She has unstable gait. She has not been able to walk since 09/2017. She has been back and forth all year to rehabs and hospital. She had exploratory lap with 2 inches of bowel resected, diverticulitis, cholecystectomy, gastroesophageal reflux, celiac disease, umbilical hernia. She has incontinence of urine. She has anxiety, depression, cardiac catheterizations, two PTCAs, ovarian cystectomy; bowel resection for obstructions; left upper arm PICC line, T12 kyphoplasty. FAMILY HISTORY: Hypertension and diabetes in the family. SOCIAL HISTORY: Former smoker, she did smoke a lot. No alcohol, no drugs. ALLERGIES: TO MORPHINE, CODEINE, HYDROMORPHONE, MYCINS. MEDICATIONS: She takes at least 20 medications. Some of them are Dexilant, meclizine, calcium and Plavix. The other ones I ordered. REVIEW OF SYSTEMS: She has no acute vision or hearing changes. No sore throat. She is having shortness of breath, occasional chest pain but that is not so bad, it is more of a short of breath. She has no nausea, vomiting, constipation, or diarrhea. PHYSICAL EXAMINATION: GENERAL: She is uncomfortable. She is in a gurney with family around her. VITAL SIGNS: She has 75 pulse, 26 respiratory rate, 114/59 blood pressure, 93% O2 sat on room air. HEENT: Head is atraumatic, normocephalic. Extraocular muscles are intact. Pupils equal, reactive to light. Throat is moist. NECK: Supple. HEART: Regular rate. Normal S1, S2. LUNGS: Have fairly good air exchange. Decreased breath sounds. ABDOMEN: Soft, nontender. Positive bowel sounds. No guarding. No rebound. No CVA tenderness. EXTREMITIES: With no edema. She has ulcers on her sacral area. LABORATORY DATA: She had multiple tests done. She has a 137 sodium, potassium 4.3, BUN is 24, creatinine 0.5. I gave her some IV fluids. GFR is 60. Sugar is 134, has been on insulin coverage. Calcium is 9.3. Total bili is 0.3, AST is 22, ALT is 41, and alkaline phosphatase 46. Lactate dehydrogenase is 321. Troponin I is less than 0.01. Total protein is 5.4. Blood gas: Lactate is 0.5, pCO2 is 50, pO2 is 54. She has a 6.6 white count, 11 hemoglobin, 35 hematocrit with 184 platelets. The chest x-ray was read as a right lower lobe pneumonia, small right pleural effusion. She will have IV antibiotics. She will have Infectious Disease and Pulmonary evaluation; put back on her medications, oxygen. She will have gentle IV fluids running. We will order physical therapy. Had a long discussion with the family. Nigel Wheeler DO
[2017-12-22 06:54] LABS: HEMOGLOBIN 10.8 g/dL (12.0-16.0); MEAN CELL VOLUME 94.2 fl (80.0-105.0); MEAN CORPUSCULAR HEMOGLOBIN 29.7 pg (25.0-35.0); MEAN CORPUSCULAR HGB CONC 31.5 g/dl (31.0-37.0); MEAN PLATELET VOLUME 10.9 fl (7.0-11.0); RBC 3.64 10^6/uL (3.5-6.1); RED CELL DISTRIBUTION WIDTH 15.5 % (11.5-14.5); WHITE BLOOD COUNT 4.9 10^3/ul (4.5-11.0)
[2017-12-22 07:25] LABS: ALB/GLOB RATIO 1.1 (1.1-1.8); ALBUMIN 2.6 g/dL (3.0-4.8); ALT/SGPT 37 U/L (7-56); AST/SGOT 18 U/L (14-36); BLOOD UREA NITROGEN 17 mg/dL (7-21); CALCIUM 9.4 mg/dL (8.4-10.5); GFR AFRICAN-AMERICAN > 60; GFR NON-AFRICAN AMERICAN > 60
[2017-12-22] MEDS: Albuterol-Ipratrop 3 mg / 0.5 (3 ml) UD IH SCH ×3 (08:18→20:50)
[2017-12-22] MEDS: Budesonide 0.5 mg/2 ml Inhal Susp UD IH SCH ×2 (08:22→20:50)
--- NOTE | 2017-12-22 08:41 | CON ---
DATE: 12/22/2017 PULMONARY CONSULTATION REFERRING PHYSICIAN: Dr. Nigel Wheeler. REASON FOR CONSULTATION: Chronic obstructive pulmonary disease. History is obtained via extensive discussion with the night nurse. I have also reviewed the chart at length, and discussed the case with the patient at length. HISTORY OF PRESENT ILLNESS: The patient is a chronically ill 82-year-old female, with past medical history significant for end-stage chronic obstructive pulmonary disease, on home oxygen, on Trilogy ventilation at home at night; coronary artery disease, status post multiple cardiac stents, pulmonary hypertension, who presents to [facility] with increasing lethargy over the past 2 days. As per the ER report and the nurses, the patient's family also reports oxygen desaturation at night. The patient was thus admitted for additional evaluation. Again, I did discuss the case with the night nurse at length. The night nurse does NOT report any signs of shortness of breath or cough during her shift. The patient has chronic dyspnea on exertion, but lately has been bed-bound. Patient also has a chronic minimal/occasional cough with occasional sputum production. There is no history of chest pain, coughing up of blood, or chest pain-made worse with deep respirations. There is no history of temperatures, chills or infectious exposure. There is no history of night sweats. There is a history of weight loss with decreased appetite over the past year. No history of calf pains. No history of syncope or diaphoresis. No history of recent travel or trauma. REVIEW OF SYSTEMS: No history of nausea, vomiting or diarrhea. No acute urinary symptoms. Rest of the review of systems is negative. ALLERGIES: TO MORPHINE, CODEINE, DILAUDID, ERYTHROMYCIN. SOCIAL HISTORY: Positive for extensive tobacco usage. No alcohol. FAMILY HISTORY: No inheritable diseases. HOME MEDICATIONS: Include prednisone, Revatio, Lopressor, Humulin, Lovenox, Aricept, Plavix, Pulmicort, aspirin, DuoNebs, Tylenol and Xanax. PHYSICAL EXAMINATION: GENERAL: The patient is resting comfortably this morning. She is not short of breath at rest. She is awake and alert. VITAL SIGNS: Temperature is 97.6, pulse 78, respirations 18, blood pressure 143/66. Oxygen saturation on nasal cannula is 99%. HEENT: Normocephalic, atraumatic. NECK: No JVD. CARDIOVASCULAR: Systolic ejection murmur at the lower left sternal border. No S3 gallop. LUNGS: Decreased breath sounds at the bases. Minimal rhonchi. No wheezing. EXTREMITIES: Mild edema. No cyanosis, no clubbing. Calves are nontender to palpation. GI: Abdomen is soft, nontender, nondistended. Bowel sounds are positive. SKIN: No acute rash. NEUROLOGIC: Exam limited at the present time. PERTINENT LABORATORY DATA: Chest x-ray was done yesterday and reviewed. There is a minimal linear infiltrate noted at the right base. There are also extensive chronic bilateral changes. CBC: White count 4.9, hemoglobin 10.8, hematocrit 34.3, platelets of 187,000. Complete metabolic profile: Potassium 3.5, chloride 96, carbon dioxide 39. Rest of the metabolic profiles within normal limits. IMPRESSION: 1. Increasing lethargy-resolving. 2. Rule out pneumonia versus atelectasis-right base. 3. End-stage chronic obstructive pulmonary disease. 4. Pulmonary hypertension. 5. Coronary artery disease. 6. Anemia. PLAN: Again, I did discuss the case with the night nurse at length. I have also discussed the case with the patient at length, and reviewed the chart at length. The patient presents to [facility] with increased lethargy over the past 2 days. In addition, the family reports oxygen desaturation at night. The patient was thus admitted for additional evaluation. I did review the chest x-ray as above. There is a minimal linear infiltrate noted at the right base most consistent with atelectasis. The patient was pancultured and given antibiotics in the emergency room. There is no history of temperatures. There is no leukocytosis. I will order a procalcitonin level this morning. Again, the infiltrate is most consistent with atelectasis. In addition, as above, the night nurse does not note any shortness of breath or cough during her shift. On physical exam, there is only minimal bronchospasm noted. I will continue the current nebulizer treatments and low-dose oral steroids for now. The patient is also on Revatio-for her pulmonary hypertension. The patient's clinical status is improved this morning, as she is not lethargic. She also states to feeling better this morning. Additional pulmonary intervention will be based on the clinical status of the patient, as well as the above results. The patient's overall status/prognosis remains very poor. I will discuss the above with Dr. Wheeler. Thank you very much for this pulmonary consultation. Evgeny Briggs MD [facility]
[2017-12-22] MEDS: Enoxaparin 40 mg Syringe SC SCH (09:00)
[2017-12-22] MEDS: Non Formulary Medication (Dexlansoprazole [Dexilant] 60 MG) PO SCH (09:00)
[2017-12-22] MEDS: Insulin Reg-MEDIUM-Coverage SC SCH ×4 (09:04→22:00)
[2017-12-22] MEDS: Sildenafil 20 MG TAB PO SCH ×2 (09:04→17:35)
[2017-12-22] MEDS: POLYETHYLENE GLYCOL 3350 17 GM/Dose PACKET PO SCH (09:04)
[2017-12-22] MEDS ORDERED: Vancomycin 1gm in NS 250ml 1 GM/250 ML BAG IVPB STA (09:09)
[2017-12-22] MEDS: Cefepime 1gm in NS 100ml 1 GM/100 ML BAG IVPB SCH ×3 (09:19→21:59)
[2017-12-22] MEDS ORDERED: Potassium Chloride 20 mEq ER Tab PO ONE (10:03)
--- NOTE | 2017-12-22 12:03 | CP.PCM.CON ---
History of Present Illness - History of Present Illness History of Present Illness: 82 year old female with PMH of COPD, oxygen-dependent at home, pulmonary HTN, CAD S/P PCI, dyslipidemia, osteoporosis, S/P partial bowel resection, S/P appendectomy, S/P ovarian cyst excision, S/P cholecystectomy was brought in by family because of increasing lethargy at home over the past few weeks, with bouts of hypoxia. There is no note of fever, no vomiting, no diarrhea, no convulsions or loss of consciousness. The patient is more awake this morning and is stating that she is feeling better, less cough, no SOB at rest. She denies headache, no chest pain, no abdominal pain, no diarrhea, no dysuria. CXR was done in the ED showed possible right lower lobe atelectasis or infiltrate. Infectious Diseases consult is requested to further evaluate and manage. Review of Systems - Review of Systems All systems: reviewed and no additional remarkable complaints except Past Patient History - Infectious Disease Hx of Infectious Diseases: None - Tetanus Immunizations Tetanus Immunization: Unknown - Past Medical History & Family History Past Medical History?: Yes - Past Social History Smoking Status: Former Smoker - CARDIAC Hx Cardiac Disorders: Yes Hx Congestive Heart Failure: Yes - PULMONARY Hx Respiratory Disorders: Yes Hx Chronic Obstructive Pulmonary Disease (COPD): Yes - NEUROLOGICAL Hx Neurological Disorder: Yes Hx Dizziness: Yes - HEENT Hx HEENT Problems: Yes Hx Cataracts: Yes (b/l no sx) - RENAL Hx Chronic Kidney Disease: No - ENDOCRINE/METABOLIC Hx Endocrine Disorders: No Hx Diabetes Mellitus Type 2: No (As per family checking only bec she was on steroids.) - HEMATOLOGICAL/ONCOLOGICAL Hx Blood Disorders: Yes Hx Anemia: Yes (blood transfusion) Hx Shingles: No (pt denies having shingles) - INTEGUMENTARY Hx Dermatological Problems: Yes Other/Comment: 1cm x 1cm small opening at butt crack. - MUSCULOSKELETAL/RHEUMATOLOGICAL Hx Musculoskeletal Disorders: Yes Hx Falls: Yes - GASTROINTESTINAL Hx Gastrointestinal Disorders: Yes (exploratry lap with 2 inches of bowel resected) Hx Diverticulitis: Yes Hx Gall Bladder Disease: Yes (CHLOECYSTECTOMY) Hx Gastroesophageal Reflux: Yes Other/Comment: celiac disease, umbilical hernia - GENITOURINARY/GYNECOLOGICAL Hx Genitourinary Disorders: Yes Hx Urinary Tract Infection: Yes - PSYCHIATRIC Hx Psychophysiologic Disorder: Yes Hx Anxiety: Yes Hx Panic Symptoms: Yes Hx Substance Use: No - SURGICAL HISTORY Hx Surgeries: Yes Hx Appendectomy: Yes Hx Cardiac Catheterization: Yes Hx Cholecystectomy: Yes Hx Coronary Stent: Yes (x2 ptca) Other/Comment: t12 kyphoplasty - ANESTHESIA Hx Anesthesia: Yes Hx Anesthesia Reactions: No Hx Malignant Hyperthermia: No Meds Allergies/Adverse Reactions: Allergies Allergy/AdvReac Type Severity Reaction Status Date / Time morphine Allergy VOMITING Verified 12/21/17 14:37 codeine AdvReac VOMITING Verified 12/21/17 14:37 hydromorphone HCl AdvReac VOMITING Verified 12/21/17 14:37 [From Dilaudid] MYOCINS AdvReac VOMITING Uncoded 12/21/17 14:37 - Medications Medications: Current Medications Acetaminophen (Tylenol 325mg Tab) 650 mg PO Q4H PRN PRN Reason: Pain, moderate (4-7) Albuterol/Ipratropium (Duoneb 3 Mg/0.5 Mg (3 Ml) Ud) 3 ml IH [id number] [facility] Last Admin: 12/22/17 08:18 Dose: 3 ml Alprazolam (Xanax) 0.5 mg PO Q6 [facility] PRN Reason: Protocol Stop: 12/29/17 00:01 Last Admin: 12/22/17 06:36 Dose: Not Given Aspirin (Aspirin Chewable) 81 mg PO DAILY [facility] Atorvastatin Calcium (Lipitor) 10 mg PO DAILY [facility] Budesonide (Pulmicort Respules) 0.5 mg IH [id number] [facility] Last Admin: 12/22/17 08:22 Dose: 0.5 mg Clopidogrel Bisulfate (Plavix) 75 mg PO DAILY [facility] Donepezil HCl (Aricept) 10 mg PO HS [facility] Last Admin: 12/22/17 00:50 Dose: 10 mg Enoxaparin Sodium (Lovenox) 40 mg SC DAILY [facility] PRN Reason: Protocol Sodium Chloride (Sodium Chloride 0.45%) 1,000 mls @ 30 mls/hr IV .Q24H [facility] Last Admin: 12/22/17 00:50 Dose: 30 mls/hr Insulin Human Regular (Humulin R Med) 0 units SC ACHS [facility] PRN Reason: Protocol Last Admin: 12/21/17 22:56 Dose: Not Given Meclizine HCl (Antivert) 12.5 mg PO Q6 PRN PRN Reason: Dizziness Metoprolol Tartrate (Lopressor) 12.5 mg PO BID [facility] Non-Formulary Medication (Dexlansoprazole [Dexilant]) 60 mg PO DAILY [facility] Polyethylene Glycol (Miralax) 17 gm PO DAILY [facility] Prednisone (Prednisone Tab) 10 mg PO DAILY [facility] Sildenafil Citrate (Revatio) 20 mg PO BID [facility] Physical Exam - Constitutional Appears: Chronically Ill - Head Exam Head Exam: NORMAL INSPECTION - ENT Exam ENT Exam: Mucous Membranes Moist - Neck Exam Neck exam: Negative for: Meningismus - Respiratory Exam Respiratory Exam: Decreased Breath Sounds - Cardiovascular Exam Cardiovascular Exam: +S1, +S2 - GI/Abdominal Exam GI & Abdominal Exam: Soft. absent: Tenderness Results - Vital Signs Recent Vital Signs: Last Vital Signs Temp 97.6 F 12/22/17 05:31 Pulse 78 12/22/17 05:31 Resp 18 12/22/17 05:31 BP 143/66 12/22/17 05:31 Pulse Ox 93 L 12/22/17 05:31 - Labs Result Diagrams: 12/22/17 05:30 12/22/17 07:00 Labs: Laboratory Results - last 24 hr 12/21/17 12/21/17 12/22/17 20:15 22:32 05:30 WBC 4.9 D RBC 3.64 Hgb 10.8 L Hct 34.3 L MCV 94.2 MCH 29.7 MCHC 31.5 RDW 15.5 H Plt Count 187 MPV 10.9 Sodium Potassium Chloride Carbon Dioxide Anion Gap BUN Creatinine Est GFR ( Amer) Est GFR (Non-Af Amer) POC Glucose (mg/dL) 138 H Random Glucose Calcium Total Bilirubin AST ALT Alkaline Phosphatase Total Protein Albumin Globulin Albumin/Globulin Ratio Urine Color Yellow Urine Appearance Sl cloudy Urine pH 6.0 Ur Specific [place] >= 1.030 Urine Protein 30 H Urine Glucose (UA) Negative Urine Ketones Negative Urine Blood Trace-intact H Urine Nitrate Negative Urine Bilirubin Small H Urine Urobilinogen 0.2 Ur Leukocyte Esterase Moderate H Urine RBC 5 - 10 Urine WBC Tntc Ur Epithelial Cells 6 - 8 Urine Bacteria Many 12/22/17 12/22/17 07:00 07:41 WBC RBC Hgb Hct MCV MCH MCHC RDW Plt Count MPV Sodium 137 Potassium 3.5 L Chloride 96 L Carbon Dioxide 39 H Anion Gap 6 L BUN 17 Creatinine 0.5 L Est GFR ( Amer) > 60 Est GFR (Non-Af Amer) > 60 POC Glucose (mg/dL) 98 Random Glucose 86 Calcium 9.4 Total Bilirubin 0.8 AST 18 ALT 37 Alkaline Phosphatase 50 Total Protein 4.9 L Albumin 2.6 L Globulin 2.3 Albumin/Globulin Ratio 1.1 Urine Color Urine Appearance Urine pH Ur Specific [place] Urine Protein Urine Glucose (UA) Urine Ketones Urine Blood Urine Nitrate Urine Bilirubin Urine Urobilinogen Ur Leukocyte Esterase Urine RBC Urine WBC Ur Epithelial Cells Urine Bacteria Assessment & Plan - Assessment and Plan (Free Text) Plan: Assessment Probable right lower atelectasis R/O right lower lobe pneumonia S/P systemic inflammatory response syndrome, S/P severe sepsis with hypoxic respiratory failure S/P VDRF, S/P HCAP, new onset, right lower lobe on top of acute bronchitis chronic CHF end-stage COPD pulmonary HTN CAD dyslipidemia Plan gave a dose of IV Cefepime and will follow up blood cx, PCT; reviewed CXR and discussed with Dr. Briggs and Dr. Wheeler - if the PCT is negative will d/c antibiotics will monitor clinically overall prognosis is poor
--- NOTE | 2017-12-22 12:47 | PN ---
DATE: SUBJECTIVE: I saw her resting comfortably in bed. She is feeling better today overall. She has no complaint. She slept well. She says it was quiet. She is on IV fluids. She is on Antivert, Aricept, aspirin, Dexilant, DuoNebs, insulin coverage, potassium replacement for today. Her antibiotics were changed by the Infectious Disease doctor. She is also on Lipitor, Lopressor, Lovenox. She is on Maxipime and vancomycin. She is taking MiraLax, Plavix, Pulmicort, Revatio, Tylenol and Xanax. When I was in the ER with the family, the 2 daughters said they cannot take care of her at home anymore, so I put an order for disease case manager to help me with placement for her. PHYSICAL EXAMINATION: VITAL SIGNS: She has a 97.6 temp, 78 pulse, 143/66 blood pressure, 18 respiratory rate, 93% O2 sat on nasal cannula. HEENT: Head is atraumatic, normocephalic. She is alert. She is talking to me. Fairly comfortable. HEART: Regular rate. LUNGS: Decreased breath sounds, but for the most part clear. ABDOMEN: Soft, obese. EXTREMITIES: No edema. LABORATORY DATA: She has a 4.9 white count, 10.8 hemoglobin, 34.3 hematocrit with a 187 platelets. 1.01 INR. Lactate was 0.5, low. She has a 137 sodium, potassium 3.5. I gave her potassium today. BUN is better at 17, creatinine 0.5, GFR is 60, sugar is 86, calcium is 9.4, total bili is 0.8. AST is 18, ALT is 37, alk phos 50, total protein is 4.9. Urine was moderate and many bacteria. ASSESSMENT AND PLAN: So besides possible pneumonia on chest x-ray, she also has a urinary tract infection. We will continue with IV antibiotics as per Infectious Disease and pulmonary care. We will check her labs tomorrow, hopefully get her out of bed to chair. Get physical therapy involved and then placement to permanent placement at a fpc. Nigel Wheeler DO [facility] # [id number]
--- NOTE | 2017-12-22 19:20 | CARD ---
APPROVED REPORT EKG Measurement Heart [id number] <Conclusion> Normal sinus rhythm Possible Left atrial enlargement Borderline ECG
[2017-12-23] MEDS: Albuterol-Ipratrop 3 mg / 0.5 (3 ml) UD IH SCH ×2 (02:00→07:59)
[2017-12-23] MEDS: Cefepime 1gm in NS 100ml 1 GM/100 ML BAG IVPB SCH (05:24)
[2017-12-23 06:04] VITALS: O2SAT 95
[2017-12-23 06:52] LABS: MEAN CELL VOLUME 94.1 fl (80.0-105.0); MEAN CORPUSCULAR HEMOGLOBIN 29.5 pg (25.0-35.0); MEAN CORPUSCULAR HGB CONC 31.3 g/dl (31.0-37.0); MEAN PLATELET VOLUME 10.7 fl (7.0-11.0); RBC 3.73 10^6/uL (3.5-6.1); RED CELL DISTRIBUTION WIDTH 15.9 % (11.5-14.5); WHITE BLOOD COUNT 4.2 10^3/ul (4.5-11.0)
[2017-12-23 07:24] LABS: ALBUMIN 2.7 g/dL (3.0-4.8); ALT/SGPT 40 U/L (7-56); AST/SGOT 21 U/L (14-36); BLOOD UREA NITROGEN 13 mg/dL (7-21); CALCIUM 9.7 mg/dL (8.4-10.5); GFR AFRICAN-AMERICAN > 60; GFR NON-AFRICAN AMERICAN > 60
[2017-12-23] MEDS: Insulin Reg-MEDIUM-Coverage SC SCH (07:52)
[2017-12-23] MEDS: Budesonide 0.5 mg/2 ml Inhal Susp UD IH SCH (07:59)
--- NOTE | 2017-12-23 08:23 | PN ---
DATE: 12/23/2017 PULMONARY NOTE SUBJECTIVE: The patient appears comfortable this morning. She is not short of breath at rest. She does appear very weak. PHYSICAL EXAMINATION VITAL SIGNS: Temperature is 98.1, pulse is 79, respirations 18/20, blood pressure 137/60. Oxygen saturation on nasal cannula is 95%. HEENT: Normocephalic, atraumatic. No JVD. CARDIOVASCULAR: Systolic ejection murmur at the lower left sternal border. No S3 gallop. LUNGS: Decreased breath sounds at the bases. Minimal rhonchi. No wheezing. EXTREMITIES: Mild edema. No cyanosis, no clubbing. Calves are nontender to palpation. GI: Abdomen is soft, nontender and nondistended. Bowel sounds are positive. SKIN: No acute rash. NEUROLOGIC: Limited at the present time. PERTINENT LABORATORY DATA: Procalcitonin was done yesterday. It is negative - 0.05. CBC: White count 4.2, hemoglobin 11.0, hematocrit 35.1, platelets of 204,000. IMPRESSION: 1. Increasing lethargy - resolved. 2. Minimal atelectasis - right base. 3. End-stage chronic obstructive pulmonary disease. 4. Pulmonary hypertension. 5. Coronary artery disease. 6. Anemia. PLAN: The patient appears comfortable this morning. She is not short of breath at rest. She does state to feeling better overall. As above, she remains very weak in appearance. I did review the laboratory data - above. A negative procalcitonin is noted. In addition, there have been no recent fevers. There is no leukocytosis. The overall clinical picture is most consistent with minimal atelectasis at the right base, not true pneumonia. I will order an incentive spirometer for the patient to use. I will also continue with the aspiration precautions. On physical exam, there is no significant bronchospasm noted. In addition, there is no significant alveolar-arterial gradient. I will continue with the current nebulizer treatments and low-dose oral steroids for now. The patient also remains on her Revatio - for her pulmonary hypertension. Lastly, the patient remains on antibiotic therapy - as per Infectious Disease. I did discuss the case with Dr. Law yesterday. I will also discuss the case with him again this morning. Clinical status of the patient is certainly improved - compared to her initial presentation. However, again, unfortunately, the future status/prognosis for this deisy elderly patient remains very poor. All are aware. I will discuss the above with Dr. Wheeler. Evgeny Briggs MD [facility]
[2017-12-23] MEDS: Non Formulary Medication (Dexlansoprazole [Dexilant] 60 MG) PO SCH (09:42)
[2017-12-23] MEDS: POLYETHYLENE GLYCOL 3350 17 GM/Dose PACKET PO SCH (09:49)
[2017-12-23] MEDS: Enoxaparin 40 mg Syringe SC SCH (09:49)
[2017-12-23] MEDS: Sildenafil 20 MG TAB PO SCH (09:50)
--- NOTE | 2017-12-23 11:00 | CP.PCM.PN ---
Subjective - Date & Time of Evaluation Date of Evaluation: 12/23/17 Time of Evaluation: 08:55 - Subjective Subjective: No fevers, no dyspnea at rest, no fevers, no diarrhea, no nausea. Objective - Vital Signs/Intake and Output Vital Signs (last 24 hours): Temp Pulse Resp BP Pulse Ox 98.1 F 79 20 137/60 95 12/23/17 06:00 12/23/17 06:00 12/23/17 06:00 12/23/17 06:00 12/23/17 06:00 Intake and Output: 12/23/17 12/23/17 06:59 18:59 Intake Total 1280 Output Total 1200 Balance 80 - Medications Medications: Current Medications Acetaminophen (Tylenol 325mg Tab) 650 mg PO Q4H PRN PRN Reason: Pain, moderate (4-7) Last Admin: 12/22/17 17:42 Dose: 650 mg Albuterol/Ipratropium (Duoneb 3 Mg/0.5 Mg (3 Ml) Ud) 3 ml IH [id number] [facility] Last Admin: 12/23/17 07:59 Dose: 3 ml Alprazolam (Xanax) 0.5 mg PO Q6 [facility] PRN Reason: Protocol Stop: 12/29/17 00:01 Last Admin: 12/23/17 05:24 Dose: 0.5 mg Aspirin (Aspirin Chewable) 81 mg PO DAILY [facility] Last Admin: 12/22/17 09:00 Dose: 81 mg Atorvastatin Calcium (Lipitor) 10 mg PO DAILY [facility] Last Admin: 12/22/17 09:04 Dose: 10 mg Budesonide (Pulmicort Respules) 0.5 mg IH [id number] [facility] Last Admin: 12/23/17 07:59 Dose: 0.5 mg Clopidogrel Bisulfate (Plavix) 75 mg PO DAILY [facility] Last Admin: 12/22/17 09:04 Dose: 75 mg Donepezil HCl (Aricept) 10 mg PO HS [facility] Last Admin: 12/22/17 21:59 Dose: 10 mg Enoxaparin Sodium (Lovenox) 40 mg SC DAILY [facility] PRN Reason: Protocol Last Admin: 12/22/17 09:00 Dose: 40 mg Sodium Chloride (Sodium Chloride 0.45%) 1,000 mls @ 30 mls/hr IV .Q24H [facility] Last Admin: 12/22/17 22:00 Dose: 30 mls/hr Insulin Human Regular (Humulin R Med) 0 units SC ACHS [facility] PRN Reason: Protocol Last Admin: 12/23/17 07:52 Dose: Not Given Meclizine HCl (Antivert) 12.5 mg PO Q6 PRN PRN Reason: Dizziness Metoprolol Tartrate (Lopressor) 12.5 mg PO BID [facility] Last Admin: 12/22/17 17:35 Dose: 12.5 mg Non-Formulary Medication (Dexlansoprazole [Dexilant]) 60 mg PO DAILY [facility] Last Admin: 12/22/17 09:00 Dose: Not Given Polyethylene Glycol (Miralax) 17 gm PO DAILY [facility] Last Admin: 12/22/17 09:04 Dose: 17 gm Prednisone (Prednisone Tab) 10 mg PO DAILY [facility] Last Admin: 12/22/17 09:00 Dose: 10 mg Sildenafil Citrate (Revatio) 20 mg PO BID [facility] Last Admin: 12/22/17 17:35 Dose: 20 mg Tramadol HCl (Ultram) 50 mg PO TID PRN PRN Reason: Pain, moderate (4-7) Last Admin: 12/22/17 20:56 Dose: 50 mg - Labs Labs: 12/23/17 06:30 12/23/17 06:30 PT 11.5 SECONDS (9.4-12.5) 12/21/17 15:00 INR 1.01 (0.93-1.08) 12/21/17 15:00 - Constitutional Appears: Chronically Ill - Head Exam Head Exam: NORMAL INSPECTION - ENT Exam ENT Exam: Mucous Membranes Moist - Neck Exam Neck Exam: absent: Meningismus - Respiratory Exam Respiratory Exam: Decreased Breath Sounds - Cardiovascular Exam Cardiovascular Exam: +S1, +S2 - GI/Abdominal Exam GI & Abdominal Exam: Soft. absent: Tenderness Assessment and Plan - Assessment and Plan (Free Text) Plan: Assessment Probable right lower atelectasis - unlikely right lower lobe pneumonia S/P systemic inflammatory response syndrome, S/P severe sepsis with hypoxic respiratory failure S/P VDRF, S/P HCAP, new onset, right lower lobe on top of acute bronchitis chronic CHF end-stage COPD pulmonary HTN CAD dyslipidemia Plan blood cx are negative, PCT is only 0.5; reviewed CXR and discussed with Dr. Briggs and Dr. Summer jiménez d/c antibiotics and observe overall prognosis is poor
[2017-12-23 13:04] VITALS: BP 132/73; PULSE 72; RESP 18; TEMP 98.2
--- NOTE | 2017-12-24 02:14 | CON ---
DATE: HISTORY OF PRESENT ILLNESS: The patient is a 82-year-old white female with no former psychiatric history, who was admitted to the medical floor after she was brought into the ER by the family complaining of progressively worsening of mental status over the last 3 to 4 months as well as concerned about her various medical issues. Please refer to patient's medical consultations for full discussion of patient's current medical issues. I met with patient at the bedside and reviewed recent notes. Patient is alert and oriented to current situations, circumstances and month and year. She is communicative and can express herself and her needs well. She was unaware of the psychiatric consultation and feels that she does not require one; however, she accepts my questioning regardless. She politely replies my questioning regardless. Patient denies having any major psychiatric issues at this time. She denies being depressed or having major anxiety symptoms. She reports her sleep is good. She is aware that there were some concern about her forgetfulness; however, denies having major concerns in this respect, and patient does not appear to have major concerns of confusion or disorientation as described in the ER notes for this admission. Her responses are consistent and coherent, and relevant to questioning. Her affect is neutral and she shows appropriate reactivity. She is not responding to internal stimuli and she denies any perceptual disturbance, delusions were not elicited. Patient was mildly irritable because psychiatric consultation was requested, as this happened prior and she told me "other psychiatrist ." Patient was annoyed at the presumption of requiring mental health treatment at that time and she appears just as annoyed and more cooperative at this time. In general, patient denies having any major concerns, and she has been cooperative with treatment team, and denies having any issues with her medications or any discomfort at this time. Patient does not appear to be in distress. Her insight and judgment seemed to be much improved since her presentation in the ER. VITAL SIGNS: Reviewed by this provider. LABORATORY DATA: Labs were also reviewed by this provider. MEDICATIONS: Relevant psychiatric medications include Xanax 0.5 mg p.o. every 6 as scheduled, Aricept 10 mg p.o. at bedtime. PSYCHIATRIC HISTORY: Patient denies any former psychiatric history. She denies any history of suicide attempts, outpatient psychiatric treatment or psychiatric hospitalizations. Patient reports that a physician ordered a psychiatric consult for her, but she refused this consultation, annoyed by the presumptuousness of the individual who ordered the consultation; however, she is much more accepting of an assessment today. SOCIAL HISTORY: Patient indicates that she was born and raised in [place]. She is . She has 9 children and she lives with 3 of her children, 2 sons, Syed and Pelon and her daughter, Michelle. 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 She graduated high school. She denies any drug or alcohol history. IMPRESSION: The request for the consultation was confusion and forgetfulness, likely secondary to age-related decline in cognition as well as dementia, and there could also be component of delirium; however, this appears to have improved as patient is presenting as much more oriented and coherent, and is a fairly reliable historian during my interview today. RECOMMENDATIONS: At this time, there is no acute indication for psychiatric intervention at this point. Patient also declines having any psychiatric followup, and denies having any major psychiatric symptoms or complaints. She does not meet criteria for admissions for any symptoms at this time and Psychiatry will signoff. Please re-consult as necessary if there are any acute changes in patient's presentation. Mukund Christensen MD
--- NOTE | 2017-12-24 08:47 | DS ---
HISTORY OF PRESENT ILLNESS: I saw her resting comfortably in bed this morning. She is doing much better. She is feeling better. She is eating a little bit. She is in good spirits. She slept well. She is going to go home on a regular medications that she came in with. I discussed with her son trying to get a home air mattress on top of the hospital bed, but she only has a small decubitus ulcer, which is 1.5 x 2 cm and it is a grade 2 and it is clean and it could be taken care with [facility]. They can possibly get a wool mattress instead if she will not qualify for an air mattress. I did put a prescription for a wheelchair they requested. Hopefully, they can get that, but she is doing much better than when she came in. OBJECTIVE: VITAL SIGNS: She has a 98.1 temperature, 79 pulse, 137/60 blood pressure, 20 respiratory rate, 95% O2 sat on 2 liters. HEENT: Head is atraumatic, normocephalic. She is alert and comfortable, smiling, no pain. No chest pain. No shortness of breath, on oxygen. ABDOMEN: Soft. EXTREMITIES: No edema at this time. HEART: Regular rate. LUNGS: Clear to auscultation with decreased breath sounds. LABORATORY DATA: She had 4.2 white count, 11 hemoglobin, 35.1 hematocrit with 204 platelets. She has 140 sodium, potassium 4.2, BUN is 13, creatinine 0.5, GFR is greater than 60, sugar is 104, calcium is 9.7, total bilirubin is 0.5, AST is 21, ALT is 40, alkaline phosphatase is 50. So she did quite well here. She is being discharged home. She will be followed up with Dr. Valentine on the outpatient. Same meds. Discussed with the son and telehealth case manager. She was here for shortness of breath, pneumonia infection. Thank you very much. Nigel Wheeler DO
== END 2017-12-23 13:06 | disposition home health service (06) | DRG 89 ==
LOC: ED 13:43 → ERH 17:43 → 3RSO 21:52
PROVIDERS: ADMIT Family Medicine; ATTEND Family Medicine
PROC: 5A09457 Assistance with Respiratory Ventilation, 24-96 Consecutive Hours, Continuous Positive Airway Pressure (ICD-10-PCS; principal; 2017-12-22)
PROC: 3E0F7GC Introduction of Other Therapeutic Substance into Respiratory Tract, Via Natural or Artificial Opening (ICD-10-PCS; 2017-12-22)
DX: J18.9 Pneumonia, unspecified organism (principal); E87.2 Acidosis; E11.36 Type 2 diabetes mellitus with diabetic cataract; J44.0 Chronic obstructive pulmonary disease with (acute) lower respiratory infection; R09.02 Hypoxemia; F03.90 Unspecified dementia, unspecified severity, without behavioral disturbance, psychotic disturbance, mood disturbance, and anxiety; I50.9 Heart failure, unspecified; I11.0 Hypertensive heart disease with heart failure; N39.0 Urinary tract infection, site not specified; I27.20 Pulmonary hypertension, unspecified; I25.10 Atherosclerotic heart disease of native coronary artery without angina pectoris; D64.9 Anemia, unspecified; M81.0 Age-related osteoporosis without current pathological fracture; E78.5 Hyperlipidemia, unspecified; K21.9 Gastro-esophageal reflux disease without esophagitis; M48.00 Spinal stenosis, site unspecified; M19.90 Unspecified osteoarthritis, unspecified site; Z99.81 Dependence on supplemental oxygen; I25.2 Old myocardial infarction; Z74.01 Bed confinement status; Z79.02 Long term (current) use of antithrombotics/antiplatelets; Z95.5 Presence of coronary angioplasty implant and graft; Z90.49 Acquired absence of other specified parts of digestive tract; Z87.891 Personal history of nicotine dependence

== ENCOUNTER 2017-12-30 12:39 | Emergency (ER) | payer MEDICARE, MEDICAID ==
[2017-12-30 12:46] VITALS: BMI 23.0
[2017-12-30 12:48] VITALS: TEMP 97.9
--- NOTE | 2017-12-30 13:12 | ED PDOC ---
Arrival/HPI - General Chief Complaint: Trauma Time Seen by Provider: 12/30/17 13:08 Historian: Patient, Family (sons) - History of Present Illness Narrative History of Present Illness (Text): 12/30/17 13:11 pt p/w + accidental fall, prior to ED arrival, witness by family member but was not able to get to patient fast enough to prevent her from falling off her bed; pt states she was trying to move from one spot in her room to another but realize she shouldnt be moving alone and it was too late and subsequently fell on her buttocks and landed on her right side; NO head injury, no LOC pre/post fall, no neck pain, no new behavior changes, no cp/sob/palpitations (pt with chronic sob - on oxygen supplement), no abd pain, no n/v, no urinary/bowel changes, no incontinence; pt is here for further eval pt's without other complaints PCP: Dr Wheeler ortho: Dr Dye pt is typically bedbound Time/Duration: Prior to Arrival Symptom Onset: Sudden Symptom Course: Unchanged Severity Level: Mild Activities at Onset: Rest Context: Home Past Medical History - Provider Review Nursing Documentation Reviewed: Yes - Travel History Have you recently traveled outside [place] w/in the past 3 mons?: No - Past History Past History: No Previous - Infectious Disease Hx of Infectious Diseases: None - Tetanus Immunization Tetanus Immunization: Unknown - Reproductive Menopause: Yes Currently : No - Cardiac Hx Cardiac Disorders: Yes Hx Congestive Heart Failure: Yes - Pulmonary Hx Chronic Obstructive Pulmonary Disease (COPD): Yes - Neurological Hx Neurological Disorder: Yes Hx Dizziness: Yes - HEENT Hx HEENT Disorder: Yes Hx Cataracts: Yes (b/l no sx) - Renal Hx Renal Disorder: No - Endocrine/Metabolic Hx Diabetes Mellitus Type 2: No (As per family checking only bec she was on steroids.) - Hematological/Oncological Hx Blood Disorders: Yes Hx Anemia: Yes (blood transfusion) Hx Shingles: No (pt denies having shingles) - Integumentary Hx Dermatological Disorder: Yes Other/Comment: 1cm x 1cm small opening at butt crack. - Musculoskeletal/Rheumatological Hx Musculoskeletal Disorders: Yes Hx Falls: Yes - Gastrointestinal Hx Gastrointestinal Disorders: Yes (exploratry lap with 2 inches of bowel resected) Hx Diverticulitis: Yes Hx Gall Bladder Disease: Yes (CHLOECYSTECTOMY) Hx Gastroesophageal Reflux: Yes Other/Comment: celiac disease, umbilical hernia - Genitourinary/Gynecological Hx Genitourinary Disorders: Yes Hx Urinary Tract Infection: Yes - Psychiatric Hx Psychophysiologic Disorder: Yes Hx Anxiety: Yes Hx Panic Disorder: Yes Hx Substance Use: No - Surgical History Hx Appendectomy: Yes Hx Cardiac Catheterization: Yes Hx Cholecystectomy: Yes Hx Coronary Stent: Yes (x2 ptca) Other/Comment: t12 kyphoplasty - Anesthesia Hx Anesthesia: Yes Hx Anesthesia Reactions: No Hx Malignant Hyperthermia: No - Suicidal Assessment Feels Threatened In Home Enviroment: No Family/Social History - Physician Review Nursing Documentation Reviewed: Yes Family/Social History: No Known Family HX Smoking Status: Former Smoker Hx Alcohol Use: No Hx Substance Use: No Hx Substance Use Treatment: No Allergies/Home Meds Allergies/Adverse Reactions: Allergies morphine Allergy (Verified 12/30/17 12:46) VOMITING codeine Adverse Reaction (Verified 12/30/17 12:46) VOMITING hydromorphone HCl [From Dilaudid] Adverse Reaction (Verified 12/30/17 12:46) VOMITING MYOCINS Adverse Reaction (Uncoded 12/30/17 12:46) VOMITING Home Medications: Home Meds Medication Instructions Recorded Confirmed Dexlansoprazole [Dexilant] 60 mg PO DAILY 01/19/16 12/30/17 Meclizine HCl 12.5 mg PO Q6 PRN 11/26/17 12/30/17 Atorvastatin Calcium 10 mg PO DAILY 12/12/17 12/30/17 Clopidogrel [Plavix] 75 mg PO DAILY 12/12/17 12/30/17 Tramadol 50 mg PO TID 12/22/17 12/30/17 Review of Systems - Review of Systems Constitutional: Normal Eyes: Normal ENT: Normal Respiratory: SOB (but its chronic) Cardiovascular: Normal Gastrointestinal: Normal Genitourinary Female: Normal Musculoskeletal: Normal Skin: Normal Neurological: Normal Endocrine: Normal Hemo/Lymphatic: Normal Psychiatric: Normal Physical Exam Vital Signs Reviewed: Yes Vital Signs Temp Pulse Resp BP Pulse Ox 12/30/17 17:30 75 18 102/61 100 12/30/17 15:47 79 17 100/58 L 100 12/30/17 14:37 78 17 99/53 L 99 12/30/17 14:17 79 18 99/59 L 98 12/30/17 12:47 97.9 F 86 18 91/54 L 98 Temperature: Afebrile Blood Pressure: Other (slightly dec bp, changed compare with old vital signs) Pulse: Regular Respiratory Rate: Normal Appearance: Positive for: Well-Appearing, Non-Toxic, Comfortable, Other ( resting in bed, alert/awake, slightly hard of hearing, NAD, appearing comfortable, cooperative) Pain Distress: None Mental Status: Positive for: other (alert/awake, oriented x 2 (not to date/time) ) - Systems Exam Head: Present: Atraumatic, Normocephalic, Other (mild bi-temporal wasting) Pupils: Present: PERRL, Other (wearing eyeglasses, visual field intact b/l) Extroacular Muscles: Present: EOMI Conjunctiva: Present: Normal Ears: Present: Normal Mouth: Present: Moist Mucous Membranes, Other (poor dentitions, no drooling/ stridor) Pharnyx: Present: Normal, Other (uvula/tongue are midline, no drooling/stridor, no exudate/lesions) Nose (External): Present: Atraumatic Nose (Internal): Present: Normal Inspection Neck: Present: Normal Range of Motion, Trachea Midline, Other (intact ROM, no midline tenderness, no nuchal rigidity, no step off, no meningeal signs). No: MIDLINE TENDERNESS Respiratory/Chest: Present: Clear to Auscultation, Good Air Exchange, Other ( CTA b/l, no w/r/r, no accessory muscle use noted, no tachypenia). No: Respiratory Distress, Accessory Muscle Use Cardiovascular: Present: Regular Rate and Rhythm, Normal S1, S2. No: Murmurs Abdomen: Present: Normal Bowel Sounds, Other (well nourished female, noted mid abd hernia (easily reducible), no asher's sign, no mcburney's point tenderness , no masses/rebound/guarding/rigidity) Back: Present: Normal Inspection, Decubitus Ulcer (lower lumbar region, mostly stage 1 with small off center area stage 2, NO gross bleeding/discharge was noted currently). No: Midline Tenderness Upper Extremity: Present: Normal Inspection, NORMAL PULSES, Neurovascularly Intact, Other (decr ROM due to weakness (chronic), no gross deformities noted, neurovasc intact b/l, cap refill ~ 1 sec) Lower Extremity: Present: Normal Inspection, NORMAL PULSES, Neurovascularly Intact, Other (decr ROM to b/l lower ext; strength 3/5 b/l, ? slightly internally rotated left lower ext; no focal tenderness noted on exam, no crepitus noted on exam) Neurological: Present: GCS=15, CN II-XII Intact, Speech Normal Skin: Present: Warm, Normal Color, Other (cap refill ~ 1 sec, no ulcerations, no petechiae) Psychiatric: Present: Alert, Normal Insight Medical Decision Making ED Course and Treatment: 12/30/17 13:11 Impression: fall, unable to move i have consider all the differential diagnosis regarding pt's chief medical complaints/clinical findings, including but are not limited to: fall, unable to move A/P: fall, unable to move - labs - iv - xray - ct - supportive care - observe/reevaluation 12/30/17 15:[address] Wheeler, who had a discussion with patient's son regarding pt's diagnostics findings in the hospital; pt's findings are acceptable and encouraged pt for discharge/outpt follow up; that patient does not require admission currently. Dr Wheeler suggests that pt can be treated at home with continued vigilant monitoring, which the son appears to have agreed with. 12/30/17 16:14 i spoke to pt's son at length, made aware of pt's medical results, agrees with ED mgt/txt/dx, expressed reservation/concern for pt's repetitive falls/sob/and now possible UTI pt's urine sample was obtained and noted concerning for UTI i reassured pt's son and that given normal appearing lab results, without obvious clinical symptoms, pt can be treated at home for pt's current findings, son expressed understanding 1655 UA - + for UTI I paged Dr wheeler, made aware, and would like patient to receive a dose of IV abx prior to discharge and start PO abx; Dr wheeler would like patient to be discharged home with outpt f/u pt remained comfortable son would like her mother to receive a dose of her usual duonebs due in the afternoon pt's vitals are currently stable with a noted bp > 100 son/family are made aware of pt's medical results pt is encouraged continued fluid hydration and vigilant monitoring pt will f/u as directed pt will be discharged home Re-evaluation Time: 17:04 Reassessment Condition: Improved - Lab Interpretations Lab Results: 12/30/17 13:20 12/30/17 13:20 Lab Results 12/30/17 15:44: Urine Color Yellow, Urine Appearance Turbid, Urine pH 6.0, Ur Specific [place] >= 1.030, Urine Protein 30 H, Urine Glucose (UA) Negative, Urine Ketones Negative, Urine Blood Small H, Urine Nitrate Positive H, Urine Bilirubin Moderate H, Urine Urobilinogen 1.0 H, Ur Leukocyte Esterase Large H, Urine RBC 0 - 2, Urine WBC Tntc, Ur Epithelial Cells 3 - 4, Urine Bacteria Many 12/30/17 13:34: POC Glucose (mg/dL) 151 H 12/30/17 13:20: Sodium 137, Potassium 4.3, Chloride 96 L, Carbon Dioxide 35 H, Anion Gap 10, BUN 19, Creatinine 0.6 L, Est GFR ( Amer) > 60, Est GFR ( Non-Af Amer) > 60, Random Glucose 146 H, Calcium 9.3, Total Bilirubin 0.5, AST 22, ALT 32, Alkaline Phosphatase 53, Troponin I < 0.01, Total Protein 5.6 L, Albumin 3.2, Globulin 2.4, Albumin/Globulin Ratio 1.3, Lipase 50 12/30/17 13:20: PT 11.4, INR 0.99, APTT 29.7 12/30/17 13:20: WBC 8.2 D, RBC 3.65, Hgb 11.0 L, Hct 35.0 L, MCV 95.9, MCH 30.1 , MCHC 31.4, RDW 15.9 H, Plt Count 201, MPV 11.1 H, Gran % 85.3 H, Lymph % (Auto ) 9.2 L, [place] % (Auto) 4.3, Eos % (Auto) 1.1 L, Baso % (Auto) 0.1, Gran # 6.99 H , Lymph # (Auto) 0.8 L, [place] # (Auto) 0.4, Eos # (Auto) 0.1, Baso # (Auto) 0.01 I have reviewed the lab results: Yes Interpretation: Abnormal lab values (+ UTI) - RAD Interpretation Narrative RAD Interpretations (Text): 12/30/17 15:02 CT of Head reviewed by radiologist, shows: HEMORRHAGE: No intracranial hemorrhage. BRAIN: No mass effect or edema. Cortical atrophy, periventricular small vessel disease. VENTRICLES: Unremarkable. No hydrocephalus. CALVARIUM: Unremarkable. PARANASAL SINUSES: Chronic sphenoid air cell disease. MASTOID AIR CELLS: Chronic mastoid air cell disease, unilateral right-sided OTHER FINDINGS: None. IMPRESSION: No acute intracranial abnormalities. No significant findings to account for the clinical presentation. No significant interval change compared to the prior examination(s). 12/30/17 15:04 Chest X-ray reviewed by radiologist, shows: LUNGS: Linear interstitial changes are seen in both lung apices. This is unchanged. There is no focal consolidation PLEURA: No significant pleural effusion identified, no pneumothorax apparent. CARDIOVASCULAR: Normal. OSSEOUS STRUCTURES: No significant abnormalities. VISUALIZED UPPER ABDOMEN: Normal. OTHER FINDINGS: None. IMPRESSION: Linear interstitial changes are seen in both lung apices. This is unchanged. There is no focal consolidation 12/30/17 15:54 X-ray of Hip/Pelvis reviewed by radiologist, shows: BONES: Pelvis: Unremarkable. Right hip:Unremarkable. Left hip:Unremarkable. JOINTS: Right hip: Unremarkable. Left hip: Unremarkable. Sacroiliac Joints: Unremarkable. Pubic symphysis: Unremarkable. SOFT TISSUES: Normal. OTHER FINDINGS: None. IMPRESSION: Unremarkable radiographs of the hips and pelvis. Radiology Orders: 12/30/17 13:08 HEAD W/O CONTRAST [CT] Stat 12/30/17 13:09 CHEST PORTABLE [RAD] Stat Hip Bilateral [HIP MIN 5V W/ PELVIS JEFF] [RAD] Stat Medical Supervisor: Radiologist - EKG Interpretation EKG Interpretation (Text): 12/30/17 17:18 NSR at 75 bpm, normal axis, no ectopy, no st-t changes, borderline EKG; unchanged compare with old ekg 12/2017 Interpreted by ED Physician: Yes Type: 12 lead EKG Comparison: Similar to previous EKG - Medication Orders Current Medication Orders: Sodium Chloride (Sodium Chloride 0.9%) 1,000 mls @ 75 mls/hr IV .[id number] JEFFERY Last Admin: 12/30/17 13:17 Dose: 75 mls/hr eMAR Start Stop Document 12/30/17 13:17 SF (Rec: 12/30/17 13:17 [place] [facility] [id number] Intravenous Solution Start Date 12/30/17 Start Time 13:17 Discontinued Medications Albuterol/Ipratropium (Duoneb 3 Mg/0.5 Mg (3 Ml) Ud) 3 ml IH STAT STA Stop: 12/30/17 16:22 Last Admin: 12/30/17 16:46 Dose: 3 ml Ceftriaxone Sodium (Rocephin 1 Gram Ivpb) 1 gm in 100 mls @ 200 mls/hr IVPB STAT STA PRN Reason: Protocol Stop: 12/30/17 16:45 Last Admin: 12/30/17 16:46 Dose: 200 mls/hr eMAR Start Stop Document 12/30/17 16:46 SF (Rec: 12/30/17 16:46 SF [facility] [id number] Intravenous Solution Start Date 12/30/17 Start Time 16:46 End Date 12/30/17 End time 17:15 Total Infusion Time 29 Disposition/Present on Arrival - Present on Arrival Any Indicators Present on Arrival: No History of DVT/PE: No History of Uncontrolled Diabetes: No Urinary Catheter: No History of Decub. Ulcer: No History Surgical Site Infection Following: None - Disposition Have Diagnosis and Disposition been Completed?: Yes Diagnosis: Fall, General medical exam, Encounter for wound care, UTI (urinary tract infection), Dehydration Disposition: HOME/ ROUTINE Disposition Time: 17:00 Patient Plan: Discharge Patient Problems: Current Active Problems Problem Status Onset Dehydration Acute UTI (urinary tract infection) Acute Fall Acute General medical exam Acute Encounter for wound care Acute Condition: STABLE Discharge Instructions (ExitCare): Urinary Tract Infections in Adults, Wound Care, Preventing Falls Print Language: UKRAINIAN Additional Instructions: Make sure to see your doctor in 1-2 days DRINK PLENTY OF FLUIDS KEEP wound clean and dry make sure to remind patient not to move around without assistance, visual cues are encouraged take your medications as prescribed RETURN TO ED IF worse pain, cant breath, persistent vomiting, high fever >101- 102 for hours, altered behavior, worse sacral wound, slurr speech, facial changes, focal weakness (arm/leg or both), unable to urinate, heavy/persistent bleeding, passing out, chest pain, or other medical emergencies Prescriptions: Amoxicillin/Clavulanate [Augmentin 875 MG-125 MG] 1 tab PO BID #14 tab Referrals: Nigel Wheeler DO [Primary Care Provider] - Follow up with primary Forms: [facility] (Greenlandic)
[2017-12-30] MEDS ORDERED: Sodium Chloride 0.9% 1,000 ML IV SCH (13:15)
--- NOTE | 2017-12-30 13:35 | RAD ---
HISTORY: fall COMPARISON: No prior. FINDINGS: LUNGS: Linear interstitial changes are seen in both lung apices. This is unchanged. There is no focal consolidation PLEURA: No significant pleural effusion identified, no pneumothorax apparent. CARDIOVASCULAR: Normal. OSSEOUS STRUCTURES: No significant abnormalities. VISUALIZED UPPER ABDOMEN: Normal. OTHER FINDINGS: None. IMPRESSION: Linear interstitial changes are seen in both lung apices. This is unchanged. There is no focal consolidation
[2017-12-30 14:01] LABS: BASO # 0.01 K/mm3 (0.0-2.0); BASO % 0.1 % (0.0-3.0); EOS # 0.1 (0.0-0.7); EOS % 1.1 % (1.5-5.0); GRAN # 6.99 (1.4-6.5); GRAN % 85.3 % (50.0-68.0); LYMPH # 0.8 (1.2-3.4); LYMPH % 9.2 % (22.0-35.0); MEAN CELL VOLUME 95.9 fl (80.0-105.0); MEAN CORPUSCULAR HEMOGLOBIN 30.1 pg (25.0-35.0); MEAN CORPUSCULAR HGB CONC 31.4 g/dl (31.0-37.0); MEAN PLATELET VOLUME 11.1 fl (7.0-11.0); MONO # 0.4 (0.1-0.6); MONO % 4.3 % (1.0-6.0); RBC 3.65 10^6/uL (3.5-6.1); RED CELL DISTRIBUTION WIDTH 15.9 % (11.5-14.5); WHITE BLOOD COUNT 8.2 10^3/ul (4.5-11.0)
[2017-12-30 14:12] LABS: INR 0.99 (0.93-1.08); PARTIAL THROMBOPLASTIN TIME 29.7 Seconds (25.1-36.5); PROTHROMBIN TIME 11.4 SECONDS (9.4-12.5)
[2017-12-30 14:13] LABS: ALB/GLOB RATIO 1.3 (1.1-1.8); ALBUMIN 3.2 g/dL (3.0-4.8); ALT/SGPT 32 U/L (7-56); AST/SGOT 22 U/L (14-36); BLOOD UREA NITROGEN 19 mg/dL (7-21); CALCIUM 9.3 mg/dL (8.4-10.5); GFR AFRICAN-AMERICAN > 60; GFR NON-AFRICAN AMERICAN > 60; LIPASE 50 U/L (23-300)
[2017-12-30 14:22] LABS: TROPONIN I < 0.01 ng/mL
--- NOTE | 2017-12-30 14:32 | CT ---
PROCEDURE: CT HEAD WITHOUT CONTRAST. HISTORY: fall, no loc COMPARISON: 12/12/2017 CT head TECHNIQUE: Axial computed tomography images were obtained through the head/brain without intravenous contrast. Coronal and sagittal reconstructed images. Radiation dose: Total exam DLP = 856.22 mGy-cm. This CT exam was performed using one or more of the following dose reduction techniques: Automated exposure control, adjustment of the mA and/or kV according to patient size, and/or use of iterative reconstruction technique. FINDINGS: HEMORRHAGE: No intracranial hemorrhage. BRAIN: No mass effect or edema. Cortical atrophy, periventricular small vessel disease. VENTRICLES: Unremarkable. No hydrocephalus. CALVARIUM: Unremarkable. PARANASAL SINUSES: Chronic sphenoid air cell disease. MASTOID AIR CELLS: Chronic mastoid air cell disease, unilateral right-sided OTHER FINDINGS: None. IMPRESSION: No acute intracranial abnormalities. No significant findings to account for the clinical presentation. No significant interval change compared to the prior examination(s).
--- NOTE | 2017-12-30 15:43 | RAD ---
PROCEDURE: Radiographs of the pelvis and bilateral hips HISTORY: fall COMPARISON: None. FINDINGS: BONES: Pelvis: Unremarkable. Right hip:Unremarkable. Left hip:Unremarkable. JOINTS: Right hip: Unremarkable. Left hip: Unremarkable. Sacroiliac Joints: Unremarkable. Pubic symphysis: Unremarkable. SOFT TISSUES: Normal. OTHER FINDINGS: None. IMPRESSION: Unremarkable radiographs of the hips and pelvis.
[2017-12-30 15:48] LABS: URINE BILIRUBIN MODERATE (NEGATIVE); URINE BLOOD SMALL (NEGATIVE); URINE GLUCOSE (UA) NEGATIVE (NEGATIVE); URINE LEUKOCYTE ESTERASE LARGE Leu/uL (NEGATIVE); URINE PROTEIN 30 mg/dL (<30 mg/dL)
[2017-12-30 15:49] LABS: URINE APPEARANCE TURBID (CLEAR); URINE COLOR YELLOW (YELLOW)
[2017-12-30 15:51] LABS: URINE BACTERIA MANY (NEG); URINE RBC 0 - 2 /hpf (0-2); URINE WBC TNTC /hpf (0-6)
[2017-12-30] MEDS ORDERED: cefTRIAXone 1 gm 1 GM/100 ML BAG IVPB STA (16:16)
[2017-12-30] MEDS ORDERED: Albuterol-Ipratrop 3 mg / 0.5 (3 ml) UD IH STA (16:21)
[2017-12-30 20:11] VITALS: BP 132/75; PULSE 81; RESP 17; O2SAT 98
--- NOTE | 2017-12-31 09:33 | CARD ---
APPROVED REPORT EKG Measurement Heart [id number] <Conclusion> Normal sinus rhythm Normal ECG No change
== END 2017-12-30 20:12 | disposition home or self-care (01) ==
LOC: ED 12:39
DX: Z00.00 Encounter for general adult medical examination without abnormal findings (principal); N39.0 Urinary tract infection, site not specified; E86.0 Dehydration; Z51.89 Encounter for other specified aftercare; W06.XXXA Fall from bed, initial encounter; Z87.891 Personal history of nicotine dependence
CPT/HCPCS: 70450; 71045; 73523; 80053; 81001; 82948; 83690; 84484; 85025; 85610; 85730; 87086; 93005; 96365; 99285; J0696; J7040

== ENCOUNTER 2018-01-02 12:35 | Inpatient (IN) | payer MEDICAID, MEDICARE ==
[2018-01-02 12:38] VITALS: BMI 30.1
[2018-01-02] MEDS ORDERED: Cefepime 1gm in NS 100ml 1 GM/100 ML BAG IVPB STA (13:07)
--- NOTE | 2018-01-02 13:08 | ED PDOC ---
Arrival/HPI - General Chief Complaint: Abnormal Labs Time Seen by Provider: 01/02/18 12:55 Historian: Patient, Family - History of Present Illness Narrative History of Present Illness (Text): 01/02/18 13:05 82 year old female whose PMH includes CHF, COPD, and diabetes, who presents to the emergency department for call back on positive Urinalysis finding. Patient is also reporting have bilateral earache. No other complaints were made. 01/02/18 18:04 Time/Duration: Prior to Arrival Symptom Onset: Gradual Symptom Course: Unchanged Context: Home Past Medical History - Provider Review Nursing Documentation Reviewed: Yes - Past History Past History: No Previous - Infectious Disease Hx of Infectious Diseases: None - Tetanus Immunization Tetanus Immunization: Unknown - Cardiac Hx Cardiac Disorders: Yes Hx Congestive Heart Failure: Yes - Pulmonary Hx Chronic Obstructive Pulmonary Disease (COPD): Yes - Neurological Hx Neurological Disorder: Yes Hx Dizziness: Yes - HEENT Hx HEENT Disorder: Yes Hx Cataracts: Yes (b/l no sx) - Renal Hx Renal Disorder: No - Endocrine/Metabolic Hx Diabetes Mellitus Type 2: No (As per family checking only bec she was on steroids.) - Hematological/Oncological Hx Blood Disorders: Yes Hx Anemia: Yes (blood transfusion) Hx Shingles: No (pt denies having shingles) - Integumentary Hx Dermatological Disorder: Yes Other/Comment: 1cm x 1cm small opening at butt crack. - Musculoskeletal/Rheumatological Hx Musculoskeletal Disorders: Yes Hx Falls: Yes - Gastrointestinal Hx Gastrointestinal Disorders: Yes (exploratry lap with 2 inches of bowel resected) Hx Diverticulitis: Yes Hx Gall Bladder Disease: Yes (CHLOECYSTECTOMY) Hx Gastroesophageal Reflux: Yes Other/Comment: celiac disease, umbilical hernia - Genitourinary/Gynecological Hx Genitourinary Disorders: Yes Hx Urinary Tract Infection: Yes - Psychiatric Hx Psychophysiologic Disorder: Yes Hx Anxiety: Yes Hx Panic Disorder: Yes Hx Substance Use: No - Surgical History Hx Appendectomy: Yes Hx Cardiac Catheterization: Yes Hx Cholecystectomy: Yes Hx Coronary Stent: Yes (x2 ptca) Other/Comment: t12 kyphoplasty - Anesthesia Hx Anesthesia: Yes Hx Anesthesia Reactions: No Hx Malignant Hyperthermia: No - Suicidal Assessment Feels Threatened In Home Enviroment: No Family/Social History - Physician Review Nursing Documentation Reviewed: Yes Family/Social History: Unknown Family HX Smoking Status: Former Smoker Hx Alcohol Use: No Hx Substance Use: No Hx Substance Use Treatment: No Allergies/Home Meds Allergies/Adverse Reactions: Allergies morphine Allergy (Verified 01/02/18 19:22) VOMITING codeine Adverse Reaction (Verified 01/02/18 19:22) VOMITING hydromorphone HCl [From Dilaudid] Adverse Reaction (Verified 01/02/18 19:22) VOMITING MYOCINS Adverse Reaction (Uncoded 01/02/18 19:22) VOMITING Home Medications: Home Meds Medication Instructions Recorded Confirmed Dexlansoprazole [Dexilant] 60 mg PO DAILY 01/19/16 01/02/18 Meclizine HCl 12.5 mg PO Q6 PRN 11/26/17 01/02/18 Atorvastatin Calcium 10 mg PO DAILY 12/12/17 01/02/18 Clopidogrel [Plavix] 75 mg PO DAILY 12/12/17 01/02/18 traMADol [Ultram] 50 mg PO TID 01/02/18 01/02/18 Review of Systems - Physician Review All systems were reviewed & negative as marked: Yes - Review of Systems Constitutional: absent: Fevers ENT: Other (earache) Cardiovascular: absent: Chest Pain Genitourinary Female: Other (+ Urinalysis ) Physical Exam Vital Signs Temp Pulse Resp BP Pulse Ox 01/02/18 16:09 82 18 116/64 96 01/02/18 13:44 97.9 F 82 18 124/70 97 Appearance: Positive for: Well-Appearing, Non-Toxic, Comfortable Pain Distress: None Mental Status: Positive for: Alert and Oriented X 3 - Systems Exam Head: Present: Atraumatic, Normocephalic Pupils: Present: PERRL Extroacular Muscles: Present: EOMI Conjunctiva: Present: Normal Respiratory/Chest: Present: Clear to Auscultation, Good Air Exchange. No: Respiratory Distress, Accessory Muscle Use, Wheezes, Rales, Rhonchi, Tachypneic Cardiovascular: Present: Regular Rate and Rhythm, Normal S1, S2. No: Murmurs Neurological: Present: GCS=15, CN II-XII Intact, Speech Normal Skin: Present: Warm, Dry, Normal Color. No: Rashes Psychiatric: Present: Alert, Oriented x 3, Normal Insight, Normal Concentration Medical Decision Making ED Course and Treatment: 04/16/18 Impression: 82 year old female with + Urinalysis Plan: -- Maxipime -- Labs -- Urinalysis -- Reassess and disposition Progress Notes: 01/02/18 14:20 Patient has a sacral ulcer, but is currently declining exam in the emergency department. pt with vre and psuedomonas. cefepime and tigecycline dosed - Lab Interpretations Lab Results: 01/02/18 14:10 01/02/18 14:10 Lab Results 01/02/18 14:10: Sodium 137, Potassium 4.4, Chloride 94 L, Carbon Dioxide 38 H, Anion Gap 9 L, BUN 18, Creatinine 0.5 L, Est GFR ( Amer) > 60, Est GFR ( Non-Af Amer) > 60, Random Glucose 154 H, Calcium 9.1, Total Bilirubin 0.4, AST 21, ALT 29, Alkaline Phosphatase 58, Total Protein 5.6 L, Albumin 3.2, Globulin 2.4, Albumin/Globulin Ratio 1.3 01/02/18 14:10: PT 11.1, INR 0.97, APTT 31.7 01/02/18 14:10: WBC 5.6 D, RBC 3.50, Hgb 10.6 L, Hct 33.4 L, MCV 95.4, MCH 30.3 , MCHC 31.7, RDW 15.9 H, Plt Count 185, MPV 10.6, Gran % 87.2 H, Lymph % (Auto) 8.2 L, Karnes % (Auto) 3.7, Eos % (Auto) 0.7 L, Baso % (Auto) 0.2, Gran # 4.91, Lymph # (Auto) 0.5 L, Karnes # (Auto) 0.2, Eos # (Auto) 0.0, Baso # (Auto) 0.01 I have reviewed the lab results: Yes - Medication Orders Current Medication Orders: Acetaminophen (Tylenol 325mg Tab) 650 mg PO Q4H PRN PRN Reason: Pain, moderate (4-7) Albuterol/Ipratropium (Duoneb 3 Mg/0.5 Mg (3 Ml) Ud) 3 ml IH [id number] JEFFERY Last Admin: 01/03/18 07:22 Dose: 3 ml Albuterol/Ipratropium (Duoneb 3 Mg/0.5 Mg (3 Ml) Ud) 3 ml IH Q2H PRN PRN Reason: Shortness of Breath Alprazolam (Xanax) 0.5 mg PO Q6 [facility] PRN Reason: Protocol Stop: 01/09/18 18:01 Last Admin: 01/03/18 06:55 Dose: 0.5 mg Aspirin (Aspirin Chewable) 81 mg PO DAILY [facility] Atorvastatin Calcium (Lipitor) 10 mg PO DAILY [facility] Budesonide (Pulmicort Respules) 0.5 mg IH [id number] [facility] Last Admin: 01/03/18 07:22 Dose: 0.5 mg Clopidogrel Bisulfate (Plavix) 75 mg PO DAILY [facility] Docusate Sodium (Colace) 100 mg PO DAILY [facility] Enoxaparin Sodium (Lovenox) 40 mg SC DAILY [facility] PRN Reason: Protocol Ferrous Sulfate (Feosol) 324 mg PO DAILY [facility] Home Med (Home Med) 1 unit PO DAILY [facility] Home Med (Home Med) 1 unit PO Q12 [facility] Sodium Chloride (Sodium Chloride 0.45%) 1,000 mls @ 30 mls/hr IV .Q24H [facility] Cefepime HCl (Maxipime 1gm) 1 gm in 100 mls @ 100 mls/hr IVPB Q12 [facility] PRN Reason: Protocol Last Admin: 01/02/18 21:29 Dose: 100 mls/hr eMAR Start Stop Document 01/02/18 21:29 KT (Rec: 01/02/18 21:30 KT [id number]) Intravenous Solution Start Date 01/02/18 Start Time 21:30 End Date 01/02/18 End time 22:30 Total Infusion Time 60 Insulin Human Regular (Humulin R High) 0 units SC ACHS [facility] PRN Reason: Protocol Last Admin: 01/03/18 07:46 Dose: Not Given Non-Admin Reason: Blood Sugar Parameter MAR Blood Glucose Document 01/03/18 07:46 MARGRET (Rec: 01/03/18 07:47 [facility] [id number]) Blood Glucose Finger Stick Blood Glucose (70-120) 107 Lactobacillus Acidophilus (Bacid Acidophilus) 1 cap PO BID [facility] Last Admin: 01/02/18 18:27 Dose: 1 cap Meclizine HCl (Antivert) 12.5 mg PO Q6 PRN PRN Reason: Dizziness Metoprolol Tartrate (Lopressor) 12.5 mg PO BID [facility] Last Admin: 01/02/18 18:27 Dose: 12.5 mg MAR Pulse and Blood Pressure Document 01/02/18 18:27 [facility] [place] (Rec: 01/02/18 18:28 [id number] Pulse Pulse Rate (60-90) 84 Blood Pressure Blood Pressure (100/60-150/90) 116/78 Polyethylene Glycol (Miralax) 17 gm PO DAILY [facility] Prednisone (Prednisone Tab) 10 mg PO DAILY [facility] Sildenafil Citrate (Revatio) 20 mg PO BID [facility] Last Admin: 01/02/18 18:28 Dose: 20 mg Tramadol HCl (Ultram) 50 mg PO TID [facility] Last Admin: 01/02/18 18:27 Dose: 50 mg MAR Pain Assessment Document 01/02/18 18:27 [facility] [place] (Rec: 01/02/18 18:27 [id number] Pain Reassessment Is this a pain reassessment? No Sleep Is patient sleeping during reassessment? No Presence of Pain Presence of Pain Yes Pain Scale Used Pain Scale Used Numeric Location Upper or Lower Lower Pain Location Body Site Sacrum Description Description Intermittent Intensity of Pain at present 6 Pain Behavior Facial Grimacing Aggravating Factors Changing Position Alleviating Factors/Management Medication Techniques Alleviating Factors Medication Discontinued Medications Albuterol/Ipratropium (Duoneb 3 Mg/0.5 Mg (3 Ml) Ud) 3 ml IH STAT STA Stop: 01/02/18 14:01 Last Admin: 01/02/18 14:36 Dose: 3 ml Cyanocobalamin (Vitamin B12 1000 Mcg/Ml Inj) 1,000 mcg IM ONCE ONE Stop: 01/02/18 17:31 Daptomycin (Cubicin) 310 mg 4 mg/kg (310 mg) IV ONCE ONE PRN Reason: Protocol Stop: 01/02/18 20:31 Last Admin: 01/02/18 22:08 Dose: Cefepime HCl (Maxipime 1gm) 1 gm in 100 mls @ 100 mls/hr IVPB STAT STA PRN Reason: Protocol Stop: 01/02/18 14:06 Last Admin: 01/02/18 14:36 Dose: 100 mls/hr eMAR Start Stop Document 01/02/18 14:36 OCS (Rec: 01/02/18 14:36 OCS [id number]) Intravenous Solution Start Date 01/02/18 Start Time 14:36 End Date 01/02/18 End time 15:36 Total Infusion Time 60 Tigecycline 50 mg/ Sodium (Chloride) 100 mls @ 100 mls/hr IVPB STAT STA PRN Reason: Protocol Stop: 01/02/18 14:42 Last Admin: 01/02/18 15:22 Dose: 100 mls/hr eMAR Start Stop Document 01/02/18 15:22 OCS (Rec: 01/02/18 15:23 OCS [id number]) Intravenous Solution Start Date 01/02/18 Start Time 15:22 End Date 01/02/18 End time 16:22 Total Infusion Time 60 Sodium Chloride 1,000 ml/ IV (SUPPLIES) 1,000 mls @ 4,626.66 mls/hr IV ONCE ONE PRN Reason: 60 ML/KG/HR Stop: 01/02/18 14:59 Last Admin: 01/02/18 15:20 Dose: 4,626.66 mls/hr eMAR Start Stop Document 01/02/18 15:20 OCS (Rec: 01/02/18 15:21 OCS [id number]) Intravenous Solution Start Date 01/02/18 Start Time 15:21 Daptomycin 310 mg/ Sodium (Chloride) 100 mls @ 200 mls/hr IV ONCE ONE Stop: 01/02/18 21:29 Last Admin: 01/02/18 22:38 Dose: 200 mls/hr eMAR Start Stop Document 01/02/18 22:38 KT (Rec: 01/02/18 22:39 KT [id number]) Intravenous Solution Start Date 01/02/18 Start Time 22:45 End Date 01/02/18 End time 23:45 Total Infusion Time 60 Pneumococcal Polyvalent Vaccine (Pneumovax 23 Vaccine) 0.5 ml IM .ONCE ONE Stop: 01/02/18 21:48 - Scribe Statement The provider has reviewed the documentation as recorded by the Araceil Elena Provider Scribe Attestation: All medical record entries made by the Scribe were at my direction and personally dictated by me. I have reviewed the chart and agree that the record accurately reflects my personal performance of the history, physical exam, medical decision making, and the department course for this patient. I have also personally directed, reviewed, and agree with the discharge instructions and disposition. Disposition/Present on Arrival - Present on Arrival Any Indicators Present on Arrival: No History of DVT/PE: No History of Uncontrolled Diabetes: No Urinary Catheter: No History of Decub. Ulcer: No History Surgical Site Infection Following: None - Disposition Have Diagnosis and Disposition been Completed?: Yes Diagnosis: UTI (urinary tract infection) Disposition: HOSPITALIZED Disposition Time: 05:00 Patient Problems: Current Active Problems Problem Status Onset UTI (urinary tract infection) Acute Condition: STABLE
[2018-01-02] MEDS ORDERED: Albuterol-Ipratrop 3 mg / 0.5 (3 ml) UD IH STA (14:00)
[2018-01-02 14:24] LABS: BASO # 0.01 K/mm3 (0.0-2.0); BASO % 0.2 % (0.0-3.0); EOS % 0.7 % (1.5-5.0); GRAN # 4.91 (1.4-6.5); GRAN % 87.2 % (50.0-68.0); HEMOGLOBIN 10.6 g/dL (12.0-16.0); LYMPH # 0.5 (1.2-3.4); LYMPH % 8.2 % (22.0-35.0); MEAN CELL VOLUME 95.4 fl (80.0-105.0); MEAN CORPUSCULAR HEMOGLOBIN 30.3 pg (25.0-35.0); MEAN CORPUSCULAR HGB CONC 31.7 g/dl (31.0-37.0); MEAN PLATELET VOLUME 10.6 fl (7.0-11.0); MONO # 0.2 (0.1-0.6); MONO % 3.7 % (1.0-6.0); RBC 3.5 10^6/uL (3.5-6.1); RED CELL DISTRIBUTION WIDTH 15.9 % (11.5-14.5); WHITE BLOOD COUNT 5.6 10^3/ul (4.5-11.0)
[2018-01-02 14:50] LABS: INR 0.97 (0.93-1.08); PARTIAL THROMBOPLASTIN TIME 31.7 Seconds (25.1-36.5); PROTHROMBIN TIME 11.1 SECONDS (9.4-12.5)
[2018-01-02 14:58] LABS: ALB/GLOB RATIO 1.3 (1.1-1.8); ALBUMIN 3.2 g/dL (3.0-4.8); ALT/SGPT 29 U/L (7-56); AST/SGOT 21 U/L (14-36); BLOOD UREA NITROGEN 18 mg/dL (7-21); CALCIUM 9.1 mg/dL (8.4-10.5); GFR AFRICAN-AMERICAN > 60; GFR NON-AFRICAN AMERICAN > 60
[2018-01-02] MEDS: Lactobacillus Acidophilus 500 MU Cap PO SCH (18:27)
[2018-01-02] MEDS: Sildenafil 20 MG TAB PO SCH (18:28)
--- NOTE | 2018-01-02 19:34 | CP.PCM.CON ---
History of Present Illness - History of Present Illness History of Present Illness: Surgery: Dr. Holley CC: Stage II decub HPI: 82F w. PMH of CHF, COPD, and diabetes, presents to ED for call back on positive Urinalysis finding. Surgery has been consulted for stage II sacral decub which has been present since September. Per pt's daughters, they have been managing decub w. local wound care, optifoam dressings and medihoney. Per family , the ulcer has been stable and has not shown any worsening. Pt denies any complaints at this time in regards to the wound. PMH: See above PSH: Chlecystectomy, Appendectomy, Partial small bowel resection, Ovarian cyst excision, Inguinal hernia repair, CAD s/p PCI, stents x 2 Meds: MAR reviewed ALL: Morphine, codeine, dilaudid Soical: Former smoker, no ETOH/drugs Fhx: non-contributory Review of Systems - Review of Systems All systems: reviewed and no additional remarkable complaints except (HPI) Past Patient History - Infectious Disease Hx of Infectious Diseases: None - Tetanus Immunizations Tetanus Immunization: Unknown - Past Medical History & Family History Past Medical History?: Yes - Past Social History Smoking Status: Former Smoker - CARDIAC Hx Cardiac Disorders: Yes Hx Congestive Heart Failure: Yes - PULMONARY Hx Chronic Obstructive Pulmonary Disease (COPD): Yes - NEUROLOGICAL Hx Neurological Disorder: Yes Hx Dizziness: Yes - HEENT Hx HEENT Problems: Yes Hx Cataracts: Yes (b/l no sx) - RENAL Hx Chronic Kidney Disease: No - ENDOCRINE/METABOLIC Hx Diabetes Mellitus Type 2: No (As per family checking only bec she was on steroids.) - HEMATOLOGICAL/ONCOLOGICAL Hx Blood Disorders: Yes Hx Anemia: Yes (blood transfusion) Hx Shingles: No (pt denies having shingles) - INTEGUMENTARY Hx Dermatological Problems: Yes Other/Comment: 1cm x 1cm small opening at butt crack. - MUSCULOSKELETAL/RHEUMATOLOGICAL Hx Musculoskeletal Disorders: Yes Hx Falls: Yes - GASTROINTESTINAL Hx Gastrointestinal Disorders: Yes (exploratry lap with 2 inches of bowel resected) Hx Diverticulitis: Yes Hx Gall Bladder Disease: Yes (CHLOECYSTECTOMY) Hx Gastroesophageal Reflux: Yes Other/Comment: celiac disease, umbilical hernia - GENITOURINARY/GYNECOLOGICAL Hx Genitourinary Disorders: Yes Hx Urinary Tract Infection: Yes - PSYCHIATRIC Hx Psychophysiologic Disorder: Yes Hx Anxiety: Yes Hx Panic Symptoms: Yes Hx Substance Use: No - SURGICAL HISTORY Hx Appendectomy: Yes Hx Cardiac Catheterization: Yes Hx Cholecystectomy: Yes Hx Coronary Stent: Yes (x2 ptca) Other/Comment: t12 kyphoplasty - ANESTHESIA Hx Anesthesia: Yes Hx Anesthesia Reactions: No Hx Malignant Hyperthermia: No Meds Allergies/Adverse Reactions: Allergies Allergy/AdvReac Type Severity Reaction Status Date / Time morphine Allergy VOMITING Verified 01/02/18 19:22 codeine AdvReac VOMITING Verified 01/02/18 19:22 hydromorphone HCl AdvReac VOMITING Verified 01/02/18 19:22 [From Dilaudid] MYOCINS AdvReac VOMITING Uncoded 01/02/18 19:22 - Medications Medications: Current Medications Acetaminophen (Tylenol 325mg Tab) 650 mg PO Q4H PRN PRN Reason: Pain, moderate (4-7) Albuterol/Ipratropium (Duoneb 3 Mg/0.5 Mg (3 Ml) Ud) 3 ml IH [id number] [facility] Alprazolam (Xanax) 0.5 mg PO Q6 [facility] PRN Reason: Protocol Stop: 01/09/18 18:01 Last Admin: 01/02/18 18:29 Dose: 0.5 mg Aspirin (Aspirin Chewable) 81 mg PO DAILY [facility] Atorvastatin Calcium (Lipitor) 10 mg PO DAILY [facility] Budesonide (Pulmicort Respules) 0.5 mg IH [id number] [facility] Clopidogrel Bisulfate (Plavix) 75 mg PO DAILY [facility] Docusate Sodium (Colace) 100 mg PO DAILY [facility] Enoxaparin Sodium (Lovenox) 40 mg SC DAILY [facility] PRN Reason: Protocol Ferrous Sulfate (Feosol) 324 mg PO DAILY [facility] Home Med (Home Med) 1 unit PO DAILY [facility] Home Med (Home Med) 1 unit PO Q12 [facility] Sodium Chloride (Sodium Chloride 0.45%) 1,000 mls @ 30 mls/hr IV .Q24H [facility] Cefepime HCl (Maxipime 1gm) 1 gm in 100 mls @ 100 mls/hr IVPB Q12 [facility] PRN Reason: Protocol Insulin Human Regular (Humulin R High) 0 units SC ACHS [facility] PRN Reason: Protocol Lactobacillus Acidophilus (Bacid Acidophilus) 1 cap PO BID [facility] Last Admin: 01/02/18 18:27 Dose: 1 cap Meclizine HCl (Antivert) 12.5 mg PO Q6 PRN PRN Reason: Dizziness Metoprolol Tartrate (Lopressor) 12.5 mg PO BID [facility] Last Admin: 01/02/18 18:27 Dose: 12.5 mg Polyethylene Glycol (Miralax) 17 gm PO DAILY [facility] Prednisone (Prednisone Tab) 10 mg PO DAILY [facility] Sildenafil Citrate (Revatio) 20 mg PO BID [facility] Last Admin: 01/02/18 18:28 Dose: 20 mg Tramadol HCl (Ultram) 50 mg PO TID [facility] Last Admin: 01/02/18 18:27 Dose: 50 mg Physical Exam - Constitutional Appears: Non-toxic, No Acute Distress - Head Exam Head Exam: ATRAUMATIC, NORMOCEPHALIC - Eye Exam Eye Exam: EOMI. absent: Scleral icterus - ENT Exam ENT Exam: Mucous Membranes Moist - Neck Exam Neck exam: Positive for: Full Rom - Respiratory Exam Respiratory Exam: NORMAL BREATHING PATTERN. absent: Accessory Muscle Use, Respiratory Distress - GI/Abdominal Exam GI & Abdominal Exam: Soft. absent: Diminished Bowel Sounds, Distended, Firm, Guarding, Tenderness - Extremities Exam Extremities exam: Positive for: pedal pulses present. Negative for: calf tenderness - Neurological Exam Neurological exam: Alert, Oriented x3 - Skin Additional comments: Stage II sacral decub ~3x3cm Results - Vital Signs Recent Vital Signs: Last Vital Signs Temp 97.9 F 01/02/18 13:44 Pulse 84 01/02/18 18:27 Resp 18 01/02/18 16:09 BP 116/78 01/02/18 18:27 Pulse Ox 96 01/02/18 16:09 - Labs Result Diagrams: 01/02/18 14:10 01/02/18 14:10 Labs: Laboratory Results - last 24 hr 01/02/18 17:12 POC Glucose (mg/dL) 151 H Assessment & Plan - Assessment and Plan (Free Text) Assessment: 82F w. stage II sacral decub -optifoam and medihoney dressing changes daily -air mattress -reposition Q2H -d/w attending Daniela PGY3
--- NOTE | 2018-01-02 20:00 | CP.PCM.PN ---
Subjective - Date & Time of Evaluation Date of Evaluation: 01/02/18 Time of Evaluation: 20:00 - Subjective Subjective: # 20 angiocath was inserted in left hand dorsum. Dx: Poor venous access. Objective - Vital Signs/Intake and Output Vital Signs (last 24 hours): Temp Pulse Resp BP Pulse Ox 97.9 F 84 18 116/78 96 01/02/18 13:44 01/02/18 18:27 01/02/18 16:09 01/02/18 18:27 01/02/18 16:09 - Medications Medications: Current Medications Acetaminophen (Tylenol 325mg Tab) 650 mg PO Q4H PRN PRN Reason: Pain, moderate (4-7) Albuterol/Ipratropium (Duoneb 3 Mg/0.5 Mg (3 Ml) Ud) 3 ml IH [id number] [facility] Alprazolam (Xanax) 0.5 mg PO Q6 [facility] PRN Reason: Protocol Stop: 01/09/18 18:01 Last Admin: 01/02/18 18:29 Dose: 0.5 mg Aspirin (Aspirin Chewable) 81 mg PO DAILY [facility] Atorvastatin Calcium (Lipitor) 10 mg PO DAILY [facility] Budesonide (Pulmicort Respules) 0.5 mg IH [id number] [facility] Clopidogrel Bisulfate (Plavix) 75 mg PO DAILY [facility] Docusate Sodium (Colace) 100 mg PO DAILY [facility] Enoxaparin Sodium (Lovenox) 40 mg SC DAILY [facility] PRN Reason: Protocol Ferrous Sulfate (Feosol) 324 mg PO DAILY [facility] Home Med (Home Med) 1 unit PO DAILY [facility] Home Med (Home Med) 1 unit PO Q12 [facility] Sodium Chloride (Sodium Chloride 0.45%) 1,000 mls @ 30 mls/hr IV .Q24H [facility] Cefepime HCl (Maxipime 1gm) 1 gm in 100 mls @ 100 mls/hr IVPB Q12 [facility] PRN Reason: Protocol Insulin Human Regular (Humulin R High) 0 units SC ACHS [facility] PRN Reason: Protocol Lactobacillus Acidophilus (Bacid Acidophilus) 1 cap PO BID [facility] Last Admin: 01/02/18 18:27 Dose: 1 cap Meclizine HCl (Antivert) 12.5 mg PO Q6 PRN PRN Reason: Dizziness Metoprolol Tartrate (Lopressor) 12.5 mg PO BID [facility] Last Admin: 01/02/18 18:27 Dose: 12.5 mg Polyethylene Glycol (Miralax) 17 gm PO DAILY [facility] Prednisone (Prednisone Tab) 10 mg PO DAILY [facility] Sildenafil Citrate (Revatio) 20 mg PO BID [facility] Last Admin: 01/02/18 18:28 Dose: 20 mg Tramadol HCl (Ultram) 50 mg PO TID [facility] Last Admin: 01/02/18 18:27 Dose: 50 mg - Labs Labs: PT 11.1 SECONDS (9.4-12.5) 01/02/18 14:10 INR 0.97 (0.93-1.08) 01/02/18 14:10 APTT 31.7 Seconds (25.1-36.5) 01/02/18 14:10
[2018-01-02] MEDS ORDERED: DAPTOmycin 500 mg Inj (Cubicin) IV ONE (20:30)
[2018-01-02] MEDS: Budesonide 0.5 mg/2 ml Inhal Susp UD IH SCH (21:00)
[2018-01-02] MEDS: Albuterol-Ipratrop 3 mg / 0.5 (3 ml) UD IH SCH (21:00)
[2018-01-02] MEDS: Cefepime 1gm in NS 100ml 1 GM/100 ML BAG IVPB SCH (21:29)
[2018-01-02] MEDS ORDERED: Pneumococcal 23-Valent Vaccine IM ONE (21:47)
[2018-01-02] MEDS: Insulin Reg-HIGH-Coverage SC SCH (22:08)
[2018-01-03] MEDS: Albuterol-Ipratrop 3 mg / 0.5 (3 ml) UD IH SCH ×4 (03:10→20:17)
--- NOTE | 2018-01-03 03:53 | HP ---
HISTORY OF PRESENT ILLNESS: She was in the hospital over the weekend for a urinary tract infection and she was sent home on oral antibiotics, returned after the culture brought out VRE. She was called back to come to the hospital for admission because it was only sensitive to IV antibiotics. This is an 82-year-old female whom I know very well with past medical history of CHF, COPD, diabetes, to name a few, pulmonary hypertension, and she has a positive urinalysis, also bilateral ear ache with ringing, also has dizziness. She has bilateral cataracts, diabetes, anemia, transfusions, two ulcers on her sacral wound, history of falls. She had exploratory lap with 2 inches of bowel resected, diverticulitis, cholecystectomy, gastroesophageal reflux, celiac disease, umbilical hernia, urinary tract infections, anxiety, panic disorder, appendectomy, cholecystectomy, two PTCAs, kyphoplasty of T12. SOCIAL HISTORY: Quit smoking. No alcohol, no drugs. FAMILY HISTORY: Hypertension and diabetes in the family. ALLERGIES: TO MORPHINE, CODEINE, HYDROMORPHONE, MYCINS. MEDICATIONS: She takes many medications, Dexilant, meclizine, calcium, Plavix, tramadol, and many others. REVIEW OF SYSTEMS: She is actually quite calm and comfortable . She would say she was doing great at home. No vision or hearing changes, but there is tinnitus and ears ringing. No sore throat. No chest pain or palpitations. No shortness of breath or cough. No abdominal pain, nausea, vomiting, constipation, or diarrhea. She is having some urinary tract symptoms and positive UTI. Extremities have no edema. She is weak. Her skin got two stage II ulcers on the sacral area. PHYSICAL EXAMINATION: VITAL SIGNS: Temperature 97.9, pulse 82, respiratory rate 18, blood pressure 124/70, and 97% O2 sat on room air. She sleeps with a BiPAP. GENERAL: She is well appearing at this time, nontoxic, comfortable, alert, and oriented x3. Family is present. HEENT: Head is atraumatic, normocephalic. Extraocular muscles are intact. Pupils equal and reactive to light. Throat is moist. NECK: Supple. HEART: Regular rate. Normal S1, S2. LUNGS: Decreased breath sounds. Clear to auscultation. NEUROLOGIC: GCS is 15. Cranial nerves II through XII grossly intact. Speech is normal. SKIN: Warm and dry. She has two grade II on the sacral area. Alert and oriented x3. Thyroid is midline. She has VRE in the urine that is why she was brought back and she is on Maxipime. LABORATORY DATA: She has 137 sodium, potassium 4.4, BUN 18, creatinine 0.5. GFR is greater than 60. Sugar is 151. Calcium is 9.1. Total bili is 0.4, AST is 21, ALT is 29, and alkaline phosphatase 58. Total protein is 5.6. Albumin is 3.2, and globulin is 2.4. INR 0.97, white count 5.6, hemoglobin 10.6, hematocrit 33.4 with 185 platelets. IMPRESSION AND PLAN: She is going to have consults with Infectious Disease, ENT for the ear, Surgery for the wounds, Pulmonary for end-stage chronic obstructive pulmonary disease. All the medications will be added. oxygen, BiPAP, diet, physical therapy and I am hoping that she will improve quickly. We will discuss this with Infectious Disease. Family does not want a straight cath. I believe that is why she has this urinary tract infection and we will see how she does tomorrow. Nigel Wheeler DO MTDD
[2018-01-03] MEDS ORDERED: Albuterol-Ipratrop 3 mg / 0.5 (3 ml) UD IH PRN (07:05)
[2018-01-03] MEDS: Budesonide 0.5 mg/2 ml Inhal Susp UD IH SCH ×2 (07:22→20:17)
[2018-01-03 07:29] LABS: MEAN CELL VOLUME 95.7 fl (80.0-105.0); MEAN CORPUSCULAR HEMOGLOBIN 29.8 pg (25.0-35.0); MEAN CORPUSCULAR HGB CONC 31.2 g/dl (31.0-37.0); MEAN PLATELET VOLUME 10.6 fl (7.0-11.0); RBC 3.69 10^6/uL (3.5-6.1); RED CELL DISTRIBUTION WIDTH 16.1 % (11.5-14.5); WHITE BLOOD COUNT 5.1 10^3/ul (4.5-11.0)
[2018-01-03] MEDS ORDERED: Pantoprazole 40 mg EC Tab PO SCH (07:30)
[2018-01-03 07:42] LABS: ALB/GLOB RATIO 1.3 (1.1-1.8); ALBUMIN 3.2 g/dL (3.0-4.8); ALT/SGPT 35 U/L (7-56); AST/SGOT 22 U/L (14-36); BLOOD UREA NITROGEN 18 mg/dL (7-21); CALCIUM 9.1 mg/dL (8.4-10.5); GFR AFRICAN-AMERICAN > 60; GFR NON-AFRICAN AMERICAN > 60
[2018-01-03] MEDS: Insulin Reg-HIGH-Coverage SC SCH ×4 (07:46→21:47)
--- NOTE | 2018-01-03 08:08 | CP.PCM.PN ---
Subjective - Date & Time of Evaluation Date of Evaluation: 01/03/18 Time of Evaluation: 08:03 - Subjective Subjective: Surgery Progress Note: Patient seen and assessed at bedside. No acute events overnight. Denies fevers, chills, chest pain, SOB, abdominal pain, N/V/D/C, or changes in urine output. Objective - Vital Signs/Intake and Output Vital Signs (last 24 hours): Temp Pulse Resp BP Pulse Ox 97.9 F 84 96 H 116/78 96 01/02/18 21:24 01/02/18 21:24 01/02/18 21:24 01/02/18 21:24 01/02/18 16:09 Intake and Output: 01/03/18 01/03/18 06:59 18:59 Intake Total 420 Output Total 180 Balance 240 - Medications Medications: Current Medications Acetaminophen (Tylenol 325mg Tab) 650 mg PO Q4H PRN PRN Reason: Pain, moderate (4-7) Albuterol/Ipratropium (Duoneb 3 Mg/0.5 Mg (3 Ml) Ud) 3 ml IH [id number] [facility] Last Admin: 01/03/18 07:22 Dose: 3 ml Albuterol/Ipratropium (Duoneb 3 Mg/0.5 Mg (3 Ml) Ud) 3 ml IH Q2H PRN PRN Reason: Shortness of Breath Alprazolam (Xanax) 0.5 mg PO Q6 JEFFERY PRN Reason: Protocol Stop: 01/09/18 18:01 Last Admin: 01/03/18 06:55 Dose: 0.5 mg Aspirin (Aspirin Chewable) 81 mg PO DAILY [facility] Atorvastatin Calcium (Lipitor) 10 mg PO DAILY [facility] Budesonide (Pulmicort Respules) 0.5 mg IH [id number] [facility] Last Admin: 01/03/18 07:22 Dose: 0.5 mg Clopidogrel Bisulfate (Plavix) 75 mg PO DAILY [facility] Docusate Sodium (Colace) 100 mg PO DAILY [facility] Enoxaparin Sodium (Lovenox) 40 mg SC DAILY [facility] PRN Reason: Protocol Ferrous Sulfate (Feosol) 324 mg PO DAILY [facility] Home Med (Home Med) 1 unit PO DAILY [facility] Home Med (Home Med) 1 unit PO Q12 [facility] Sodium Chloride (Sodium Chloride 0.45%) 1,000 mls @ 30 mls/hr IV .Q24H [facility] Cefepime HCl (Maxipime 1gm) 1 gm in 100 mls @ 100 mls/hr IVPB Q12 JEFFERY PRN Reason: Protocol Last Admin: 01/02/18 21:29 Dose: 100 mls/hr Insulin Human Regular (Humulin R High) 0 units SC ACHS JEFFERY PRN Reason: Protocol Last Admin: 01/03/18 07:46 Dose: Not Given Lactobacillus Acidophilus (Bacid Acidophilus) 1 cap PO BID [facility] Last Admin: 01/02/18 18:27 Dose: 1 cap Meclizine HCl (Antivert) 12.5 mg PO Q6 PRN PRN Reason: Dizziness Metoprolol Tartrate (Lopressor) 12.5 mg PO BID [facility] Last Admin: 01/02/18 18:27 Dose: 12.5 mg Polyethylene Glycol (Miralax) 17 gm PO DAILY [facility] Prednisone (Prednisone Tab) 10 mg PO DAILY [facility] Sildenafil Citrate (Revatio) 20 mg PO BID [facility] Last Admin: 01/02/18 18:28 Dose: 20 mg Tramadol HCl (Ultram) 50 mg PO TID [facility] Last Admin: 01/02/18 18:27 Dose: 50 mg - Labs Labs: 01/03/18 07:00 01/03/18 07:00 PT 11.1 SECONDS (9.4-12.5) 01/02/18 14:10 INR 0.97 (0.93-1.08) 01/02/18 14:10 APTT 31.7 Seconds (25.1-36.5) 01/02/18 14:10 - Constitutional Appears: Non-toxic, No Acute Distress - Head Exam Head Exam: ATRAUMATIC, NORMOCEPHALIC - Eye Exam Eye Exam: EOMI, Normal appearance - Neck Exam Neck Exam: Full ROM - Respiratory Exam Respiratory Exam: NORMAL BREATHING PATTERN. absent: Accessory Muscle Use, Respiratory Distress - GI/Abdominal Exam GI & Abdominal Exam: Soft, Normal Bowel Sounds. absent: Tenderness - Extremities Exam Extremities Exam: absent: Calf Tenderness, Joint Swelling, Pedal Edema, Tenderness Additional comments: Palpable pedal pulses - Neurological Exam Neurological Exam: Alert, Awake - Psychiatric Exam Psychiatric exam: Normal Affect, Normal Mood - Skin Additional comments: Stage II sacral decubitus approximately 3x3cm Assessment and Plan - Assessment and Plan (Free Text) Assessment: 82 year old female with stage II sacral decubitus ulcer Plan: -Continue Optifoam and Medihoney with daily dressing changes -Continue air mattress and repositioning Q2H -Will discuss with attending, Dr. Kishan Skinner PGY1
--- NOTE | 2018-01-03 09:16 | CON ---
DATE: 01/03/2018 PULMONARY CONSULTATION REFERRING PHYSICIAN: Dr. Nigel Wheeler. REASON FOR CONSULTATION: Chronic obstructive pulmonary disease. History is obtained via extensive discussion with the night nurse. I have also discussed the case with the patient at length, and reviewed the chart at length. HISTORY OF PRESENT ILLNESS: The patient is a chronically ill 82-year-old female, with past medical history significant for end-stage chronic obstructive pulmonary disease, on home oxygen, on trilogy ventilation at home at night, coronary artery disease, status post multiple cardiac stents, pulmonary hypertension, who presents to [facility]-after outpatient testing revealed a resistant urinary tract infection. Apparently, the patient did have an outpatient urine culture sent. A resistant organism was found. The patient was thus advised to come to the hospital for additional evaluation and admission. The patient is not short of breath at rest. She does have chronic dyspnea on exertion. She also has a chronic cough with occasional sputum production-unchanged. There is no history of chest pain, coughing up of blood, or chest pain-made worse with deep respirations. There is no history of temperatures, chills or infectious exposure. There is no history of night sweats. There is a history of weight loss with decreased appetite over the past year. No history of calf pains. No history of syncope or diaphoresis. No history of recent travel or trauma. REVIEW OF SYSTEMS: No history of nausea, vomiting or diarrhea. No acute urinary symptoms. No new neurologic complaints. Rest of the review of systems is negative. ALLERGIES: TO MORPHINE, CODEINE, ERYTHROMYCIN AND DILAUDID. SOCIAL HISTORY: Positive for extensive tobacco usage. No alcohol. FAMILY HISTORY: No inheritable diseases. HOME MEDICATIONS: Include Ultram, prednisone, Revatio, Lopressor, Lovenox, Aricept, Dexilant, Plavix, ciprofloxacin, Pulmicort, atorvastatin, DuoNebs, Tylenol and Xanax. PHYSICAL EXAMINATION: GENERAL: The patient appears comfortable this morning. She is not short of breath at rest. She does appear very weak. VITAL SIGNS: Temperature is 97.9, pulse 84, respirations 18, blood pressure 116/78. Oxygen saturation on nasal cannula is 96%-97%. HEENT: Normocephalic, atraumatic. NECK: No JVD. CARDIOVASCULAR: Systolic ejection murmur at the lower left sternal border. No S3 gallop. LUNGS: Decreased breath sounds at the bases. Minimal rhonchi. No wheezing. EXTREMITIES: Positive for edema. No cyanosis or clubbing. Calves are nontender to palpation. GI: Abdomen is soft, nontender, nondistended. Bowel sounds are positive. SKIN: No acute rash. Positive sacral decubitus. NEUROLOGIC: Exam limited at the present time. PERTINENT LABORATORY DATA: CBC: White count 5.6, hemoglobin 10.6, hematocrit 33.4, platelets of 185,000. Complete metabolic profile: Chloride 94, carbon dioxide 38, glucose 154, total protein 5.6. Rest of the metabolic profile is within normal limits. Urine culture was done and it is positive for Pseudomonas aeruginosa and vancomycin-resistant Enterococcus faecium. IMPRESSION: 1. Resistant urinary tract infection. 2. End-stage chronic obstructive pulmonary disease. 3. Pulmonary hypertension. 4. Coronary artery disease. 5. Anemia. PLAN: Again, I did discuss the case with the night nurse at length. I have also discussed the case with the patient at length and reviewed the chart at length. The patient presents to [facility] after outpatient laboratory testing revealed a resistant urinary tract infection. The patient was initially started on oral ciprofloxacin. However, when the cultures came back, the patient was advised to go to the emergency room for additional evaluation and treatment. This morning, the patient appears comfortable. She is not short of breath at rest. She offers no new significant pulmonary symptoms. On physical exam, there is no significant bronchospasm noted. In addition, there is no significant alveolar-arterial gradient. We will continue with the nasal cannula oxygen supplementation during the day. We will also continue with the BiPAP at night. I would continue with the antibiotic coverage as per Infectious Disease. Input by Dr. Law is noted. Again, there are no temperatures recorded. There is no leukocytosis. The patient does state to feeling a little better this morning. She appears very weak. Additional pulmonary intervention will be based on the clinical status of the patient. Unfortunately, the overall status/prognosis for this patient remains very poor. All are aware. I will discuss the above with Dr. Wheeler. Thank you very much for this pulmonary consultation. Evgeny Briggs MD [facility] # [id number] JOSEPH
--- NOTE | 2018-01-03 09:56 | PN ---
DATE: SUBJECTIVE: I saw her resting comfortably in bed. She is not in any pain. She is comfortable. She is getting IV fluids. She does not have an appetite. She is on IV fluids, Antivert, aspirin, Bacid, Colace, daptomycin, albuterol, iron. Home meds, Lipitor, Lopressor, Lovenox, Maxipime, I added Megace for the poor appetite, MiraLax, Plavix, prednisone, Pulmicort, Revatio, Tygacil, Tylenol, Ultram, Xanax. PHYSICAL EXAMINATION: VITAL SIGNS: She has a 97.9 temp, 84 pulse, 116/78 blood pressure, 96% O2 sat on 2 L nasal cannula. HEENT: Head is atraumatic, normocephalic. HEART: Regular rate. LUNGS: Clear to auscultation. ABDOMEN: Soft. EXTREMITIES: No edema. LABORATORY DATA: She has a 5.1 white count, 11 hemoglobin, 35.3 hematocrit with 205 platelets. She has a 137 sodium, potassium is 4, BUN is 18, creatinine 0.5, GFR is greater than 60, sugar is 107, calcium is 9.1, total bili is 0.3, AST is 22, ALT is 35, alk phos 58, total protein is 5.6, albumin is 3.2. ASSESSMENT AND PLAN: She has been seen by Pulmonary, Surgery, ENT, Infectious Disease. She has urinary tract infection, vancomycin-resistant Enterococcus, pulmonary retention, chronic obstructive pulmonary disease, poor appetite. Get physical therapy, out of bed to chair. Shanita I ordered. Check her labs tomorrow. Encouragement while being here. Nigel Wheeler DO
[2018-01-03] MEDS: Sodium Chloride 0.45% 1,000 ML IV SCH (10:05)
[2018-01-03] MEDS: Lactobacillus Acidophilus 500 MU Cap PO SCH ×2 (10:07→17:23)
[2018-01-03] MEDS: DEXILANT 60 MG PO SCH ×2 (10:08→14:04)
[2018-01-03] MEDS: RANOLAZINE 1000 MG PO SCH ×3 (10:09→23:09)
[2018-01-03] MEDS: Enoxaparin 40 mg Syringe SC SCH (10:14)
[2018-01-03] MEDS: Cefepime 1gm in NS 100ml 1 GM/100 ML BAG IVPB SCH (10:14)
[2018-01-03] MEDS: POLYETHYLENE GLYCOL 3350 17 GM/Dose PACKET PO SCH (10:15)
[2018-01-03] MEDS: Sildenafil 20 MG TAB PO SCH ×2 (10:15→17:25)
[2018-01-03 13:58] LABS: URINE BILIRUBIN NEGATIVE (NEGATIVE); URINE BLOOD NEGATIVE (NEGATIVE); URINE GLUCOSE (UA) NEGATIVE (NEGATIVE); URINE LEUKOCYTE ESTERASE NEGATIVE Leu/uL (NEGATIVE); URINE PROTEIN NEGATIVE mg/dL (<30 mg/dL); URINE UROBILINOGEN 0.2 E.U./dL (<1 E.U./dL)
[2018-01-03 13:59] LABS: URINE APPEARANCE CLEAR (CLEAR); URINE COLOR YELLOW (YELLOW)
[2018-01-03] MEDS: Meropenem IV 1 gm in NS 50 ML IVPB SCH (23:09)
[2018-01-03] MEDS: Vancomycin 1gm in NS 250ml 1 GM/250 ML BAG IVPB SCH (23:10)
[2018-01-04] MEDS: Albuterol-Ipratrop 3 mg / 0.5 (3 ml) UD IH SCH ×6 (02:23→19:50)
[2018-01-04] MEDS: Insulin Reg-HIGH-Coverage SC SCH ×4 (07:40→21:30)
[2018-01-04] MEDS: Budesonide 0.5 mg/2 ml Inhal Susp UD IH SCH ×4 (07:49→19:50)
[2018-01-04 07:52] LABS: HEMOGLOBIN 10.9 g/dL (12.0-16.0); MEAN CELL VOLUME 96.4 fl (80.0-105.0); MEAN CORPUSCULAR HEMOGLOBIN 30.3 pg (25.0-35.0); MEAN CORPUSCULAR HGB CONC 31.4 g/dl (31.0-37.0); MEAN PLATELET VOLUME 10.9 fl (7.0-11.0); RBC 3.6 10^6/uL (3.5-6.1); RED CELL DISTRIBUTION WIDTH 16.4 % (11.5-14.5); WHITE BLOOD COUNT 7.7 10^3/ul (4.5-11.0)
[2018-01-04 08:09] LABS: ALB/GLOB RATIO 1.3 (1.1-1.8); ALBUMIN 3.1 g/dL (3.0-4.8); ALT/SGPT 32 U/L (7-56); AST/SGOT 21 U/L (14-36); BLOOD UREA NITROGEN 13 mg/dL (7-21); CALCIUM 9.2 mg/dL (8.4-10.5); GFR AFRICAN-AMERICAN > 60; GFR NON-AFRICAN AMERICAN > 60
--- NOTE | 2018-01-04 08:25 | CON ---
HISTORY OF PRESENT ILLNESS: This 82-year-old female of Dr. Wheeler is consulted because of recurrent infection urinary, which brought the patient into the hospital for the weekend and has returned based on culture results. The patient has had a significant COPD and congestive heart failure. She is now seen for IV therapy, continuing, the culture resulted in p.o. resistant infection. The patient is seen by ENT secondary to presbycusis and hearing loss as well complaints of recurrent tinnitus. The patient is seen at bedside with bilateral cerumen impactions. SOCIAL HISTORY: Quit smoking, no alcohol, no drugs. FAMILY HISTORY: Hypertension and diabetes. ALLERGIES: KNOWN ALLERGIES TO MORPHINE, CODEINE, HYDROMORPHONE. MEDICATIONS: Dexilant, meclizine, calcium, Plavix, tramadol, and a long list that has been recently changed. She states that there are noted problems with tinnitus, ear ringing, really denies hearing change, but an obvious progressive change of the ears. PHYSICAL EXAMINATION: Bilateral cerumen impaction. IMPRESSION: Presbycusis, tinnitus, bilateral cerumen impaction. Direction is outpatient followup in office for cerumen removal with suction and irrigation for her cerumen lysis as well as a followup audiogram for judgment of presbycusis and a tinnitus match for possible hearing amplification/masking device. Bryant Shay, DO : 01/03/2018 17:19:29
--- NOTE | 2018-01-04 09:16 | PN ---
DATE: 01/04/2018 PULMONARY NOTE SUBJECTIVE: The patient appears comfortable this morning. She is not short of breath at rest. PHYSICAL EXAMINATION: VITAL SIGNS: Temperature 98, pulse 84, respirations 18/20, blood pressure 124/64. Oxygen saturation on nasal cannula is 97-98%. HEENT: Normocephalic, atraumatic. No JVD. CARDIOVASCULAR: Systolic ejection murmur at the lower left sternal border. No S3 gallop. LUNGS: Decreased breath sounds at the bases. Very minimal/less rhonchi. No wheezing. EXTREMITIES: Positive for edema. No cyanosis or clubbing. Calves are nontender to palpation. GI: Abdomen is soft, nontender and nondistended. Bowel sounds are positive. SKIN: No acute rash. Positive sacral decubitus. NEUROLOGIC: Limited at the present time. IMPRESSION: 1. Resistant urinary tract infection. 2. End-stage chronic obstructive pulmonary disease. 3. Pulmonary hypertension. 4. Coronary artery disease. 5. Anemia. PLAN: The patient appears comfortable this morning. She is not short of breath at rest. I did discuss the case with the night nurse at length. The night nurse stated that the patient had a very good night. On physical exam, there is no significant bronchospasm noted. In addition, the oxygen saturation on nasal cannula is 97-98%. I will continue with the current pulmonary medications for now. The patient also remains on her Revatio - for the pulmonary hypertension. I would continue with the antibiotic coverage as per Infectious Disease. Input by Dr. Eastman is noted. Clinical status of the patient appears improved. I did discuss the above with Dr. Wheeler. Evgeny Briggs MD [facility]
--- NOTE | 2018-01-04 09:30 | CON ---
DATE: 01/03/2018 LOCATION: The patient was seen earlier this morning in room 572, bed 1. CHIEF COMPLAINT: Positive urine culture x1-day duration. HISTORY OF PRESENT ILLNESS: This is an 82-year-old female with end-stage chronic obstructive lung disease; chronic respiratory failure, on home O2 therapy of 2.5 L; congestive heart failure; hypertension; coronary artery disease; urinary tract infection; arthritis; anemia; pulmonary hypertension; osteoporosis; diverticulitis; who is admitted now with a diagnosis of urinary tract infection. The patient had urine culture done was outpatient, which has resistant organism. The patient also has a stage II sacral decubitus ulcer. REVIEW OF SYSTEMS: There has been no fevers, no chills. No nausea. No vomiting. No abdominal pain, diarrhea or constipation. The patient has no urinary symptoms. No dysuria or frequency. No headaches or blurred vision. PAST MEDICAL HISTORY: Significant for end-stage COPD; chronic respiratory failure, on 2.5 L oxygen therapy; congestive heart failure; hypertension; arthritis; coronary artery disease; urinary tract infection; anemia; pulmonary hypertension; osteoporosis and diverticulitis. PAST SURGICAL HISTORY: Significant for cardiac catheterization with appendectomy, cholecystectomy and exploratory lap x2, kyphoplasty of T12. FAMILY HISTORY: Text. SOCIAL HISTORY: The patient has no recent travel. ALLERGIES: SHE IS ALLERGIC TO MORPHINE, CODEINE, HYDROMORPHONE AND MYCINS. MEDICATIONS AT HOME: Reviewed. PHYSICAL EXAMINATION: GENERAL: The patient is in bed. VITAL SIGNS: Temperature of 98, heart rate of 78, respiratory rate of 20, blood pressure is 120/60. HEENT: Examination of HEENT is unremarkable. NECK: Supple. LUNGS: Have decreased breath sounds. HEART: Normal S1 and S2. ABDOMEN: Soft, nontender. SKIN: Examination of sacrum reveals stage II sacral decubitus ulcer. Minimal erythema and discharge. LABORATORY DATA: Laboratory examination reveals the patient's white count to be 5.6, hemoglobin of 10, platelets of 185. Chemistries reveals a BUN of 18, creatinine of 0.5. Urinalysis is completely normal. Yellow urine with negative protein, negative glucose, negative nitrites, no wbc's, negative leukocyte esterase. The blood cultures are negative from yesterday. The urine culture has Pseudomonas aeruginosa and VRE in the urine on 12/30/2017 prior to admission this month. ASSESSMENT AND PLAN: An 82-year-old female with end-stage chronic obstructive pulmonary, chronic respiratory failure, congestive heart failure, hypertension, arthritis, coronary artery disease, anemia, urinary tract infection, pulmonary hypertension, osteoporosis and diverticulitis. 1. Stage II sacral decubitus ulcer with minimal infection. 2. Pseudomonas and vancomycin-resistant Enterococcus in the urine culture. asymptomatic. The patient with a normal urinalysis, not requiring treatment. Currently, we will start empirically on vancomycin and meropenem for the sacral ulcer. Pending wound culture, final blood cultures. Discuss with Surgery regarding the surgical wound care of the stage II sacral decubitus ulcer. Jose Eastman MD
[2018-01-04] MEDS: Vancomycin 1gm in NS 250ml 1 GM/250 ML BAG IVPB SCH (11:10)
[2018-01-04] MEDS: Meropenem IV 1 gm in NS 50 ML IVPB SCH ×2 (11:11→21:28)
[2018-01-04] MEDS: Lactobacillus Acidophilus 500 MU Cap PO SCH ×2 (11:14→18:29)
[2018-01-04] MEDS: RANOLAZINE 1000 MG PO SCH ×2 (11:15→21:29)
[2018-01-04] MEDS: DEXILANT 60 MG PO SCH (11:15)
[2018-01-04] MEDS: Enoxaparin 40 mg Syringe SC SCH (11:16)
[2018-01-04] MEDS: Sildenafil 20 MG TAB PO SCH ×2 (11:17→18:28)
[2018-01-04] MEDS: POLYETHYLENE GLYCOL 3350 17 GM/Dose PACKET PO SCH (11:17)
--- NOTE | 2018-01-04 12:35 | PN ---
DATE: SUBJECTIVE: I saw her resting comfortably in bed. She slept well. She is in fairly good spirits. She is on IV antibiotics. She is on Antivert, aspirin, Bacid, Colace, DuoNeb, Feosol. HOME MEDICINES: Insulin, Lipitor, Lopressor, Lovenox, Megace, Merrem IV, MiraLax, Plavix, prednisone, Pulmicort, Revatio, IV fluids, Tylenol, Ultram, vancomycin IV and Xanax. PHYSICAL EXAMINATION VITAL SIGNS: She has 97.9 temperature, 88 pulse, 143/80 blood pressure, 18 respiratory rate, 93-97% of O2 sat on room air. HEENT: Head is atraumatic, normocephalic. GENERAL: She is alert and talking with me. No complaints. No pain. HEART: Regular rate. LUNGS: Clear to auscultation. ABDOMEN: Soft, nontender. Positive bowel sounds. EXTREMITIES: She has grade 2 sacral ulcers. Extremities are mildly contracted and no edema. LABORATORY DATA: She has 7.7 white count, 10.9 hemoglobin, 34.7 hematocrit with 222 platelets. Sodium 139, potassium 4, BUN 30, creatinine 0.5, GFR is greater than 60, sugar is 96, calcium is 9.2, total bilirubin is 0.3. AST is 21, ALT is 32, alkaline phosphatase 65, total protein is 5.5, albumin is 3.1. Urinalysis is clear. PLAN: Dr. Eastman told me that she can be hopefully discharged tomorrow with oral antibiotics. I was told she had VRE and Pseudomonas in the urine. Surgery is doing dressing changes to the sacral grade 2 ulcers and hopefully, tomorrow we can discharge her with oral antibiotics. Nigel Wheeler DO
[2018-01-04] MEDS: Sodium Chloride 0.45% 1,000 ML IV SCH (18:28)
[2018-01-05] MEDS: Albuterol-Ipratrop 3 mg / 0.5 (3 ml) UD IH SCH ×4 (01:25→21:04)
[2018-01-05 07:19] LABS: HEMOGLOBIN 10.1 g/dL (12.0-16.0); MEAN CELL VOLUME 94.9 fl (80.0-105.0); MEAN CORPUSCULAR HEMOGLOBIN 30.1 pg (25.0-35.0); MEAN CORPUSCULAR HGB CONC 31.8 g/dl (31.0-37.0); MEAN PLATELET VOLUME 11.1 fl (7.0-11.0); RBC 3.35 10^6/uL (3.5-6.1); RED CELL DISTRIBUTION WIDTH 16.4 % (11.5-14.5); WHITE BLOOD COUNT 6.4 10^3/ul (4.5-11.0)
[2018-01-05 07:47] LABS: ALB/GLOB RATIO 1.3 (1.1-1.8); ALBUMIN 2.9 g/dL (3.0-4.8); ALT/SGPT 32 U/L (7-56); AST/SGOT 19 U/L (14-36); BLOOD UREA NITROGEN 13 mg/dL (7-21); GFR AFRICAN-AMERICAN > 60; GFR NON-AFRICAN AMERICAN > 60
[2018-01-05] MEDS: Budesonide 0.5 mg/2 ml Inhal Susp UD IH SCH ×2 (08:02→21:05)
--- NOTE | 2018-01-05 08:53 | PN ---
DATE: 01/04/2018 SUBJECTIVE: The patient is in bed, in no acute distress, nontoxic, no fevers, was seen earlier this morning. PHYSICAL EXAMINATION VITAL SIGNS: Temperature is 98, blood pressure is 112/70, respiratory rate of 16. HEENT: Unremarkable. NECK: Supple. LUNGS: Have decreased breath sounds. HEART: Normal S1, S2. ABDOMEN: Soft. LABORATORY EXAMINATION: Reveals a white count of 7.7, hemoglobin of 10, platelets of 222. Coagulation is noted. Chemistries reveal a BUN of 13, creatinine of 0.5. Urinalysis is noted to be completely benign. The cultures reveal the blood cultures are negative. MEDICATIONS: Patient is on meropenem and vancomycin. ASSESSMENT AND PLAN: An 82-year-old female with history of end-stage chronic obstructive lung disease and chronic respiratory failure, on home O2 therapy of 2.5 L; congestive heart failure, hypertension, coronary artery disease, urinary tract infection, arthritis, anemia, pulmonary hypertension, osteoporosis, who was admitted with diagnosis of urinary tract infection, resistant. Urinalysis is completely normal. Patient has not had any urinary symptoms. Patient also had a stage II sacral decubitus, while ____ this morning, is much improved. We will switch to p.o. antibiotics and I give him therapy in the next 24 hours. Case discussed with primary medical doctor. Jose Eastman MD
[2018-01-05] MEDS: POLYETHYLENE GLYCOL 3350 17 GM/Dose PACKET PO SCH (11:33)
[2018-01-05] MEDS: Lactobacillus Acidophilus 500 MU Cap PO SCH ×2 (11:34→21:17)
[2018-01-05] MEDS: DEXILANT 60 MG PO SCH (11:35)
[2018-01-05] MEDS: Enoxaparin 40 mg Syringe SC SCH (11:36)
[2018-01-05] MEDS: RANOLAZINE 1000 MG PO SCH (11:36)
[2018-01-05] MEDS: Sildenafil 20 MG TAB PO SCH ×2 (11:43→18:18)
--- NOTE | 2018-01-05 11:58 | PN ---
DATE: 01/05/2018 PULMONARY NOTE SUBJECTIVE: The patient appears comfortable this morning. She is not short of breath at rest. PHYSICAL EXAMINATION VITAL SIGNS: Last temperature recorded is 98.3, pulse this morning is approximately 80, respiratory rate 18, last blood pressure recorded 142/77. Oxygen saturation on nasal cannula is 96%-97%. HEENT: Normocephalic, atraumatic. No JVD. CARDIOVASCULAR: Systolic ejection murmur at the lower left sternal border. No S3 gallop. LUNGS: Decreased breath sounds at the bases. Very minimal rhonchi. No wheezing. EXTREMITIES: Positive for edema. No cyanosis, no clubbing. Calves are nontender to palpation. GI: Abdomen is soft, nontender and nondistended. Bowel sounds are positive. SKIN: No acute rash. Positive sacral decubitus. NEUROLOGIC: Limited at the present time. IMPRESSION: 1. Resistant urinary tract infection. 2. End-stage chronic obstructive pulmonary disease. 3. Pulmonary hypertension. 4. Coronary artery disease. 5. Anemia. PLAN: The patient appears very comfortable this morning. She is not short of breath at rest. She does state to feeling better overall. I did discuss the case with the night nurse at length. The night nurse stated that the patient had a very good night. On physical exam, there is no significant bronchospasm noted. In addition, there is no significant alveolar-arterial gradient. I will continue with the current pulmonary medications for now. The patient also remains on her Revatio - for the pulmonary hypertension. I would continue with the antibiotic coverage as per Infectious Disease. Input by Dr. Eastman is noted. There are no temperatures noted. There is no leukocytosis. The clinical status of the patient is certainly improved - compared to the initial presentation. However, unfortunately, the future status/prognosis for this patient remains poor. All are aware. I will discuss the above with Dr. Wheeler. Evgeny Briggs MD [facility]
--- NOTE | 2018-01-05 14:29 | DS ---
HOSPITAL COURSE: I saw her resting comfortably in bed. She has no complaints. She wants to go home. She is in good spirit. She is feeling better. No complaints of chest pain, shortness breath, or abdominal pain. She is eating. PHYSICAL EXAMINATION: VITAL SIGNS: She has a 97.9 temperature, 86 pulse, 104/51 blood pressure, 18 respiratory rate, 98% O2 sat on room air. HEENT: Head is atraumatic, normocephalic. HEART: Regular rate. LUNGS: Clear to auscultation. ABDOMEN: Soft, nontender. EXTREMITIES: No edema. SKIN: She has a sacral ulcer. She is going to go on her medications. Antivert, aspirin, Bacid, Colace, DuoNeb, iron, home medications. HOME MEDICATIONS: Insulin, Lipitor, Lopressor, Lovenox, Megace, MiraLax, Plavix, prednisone, Revatio, Tylenol, Ultram, Xanax, Zithromax 250 daily for five more days. LABORATORY DATA: She has a 6.4 white count, 10.1 hemoglobin, 31.8 hematocrit with 196 platelets. She has a 138 sodium, potassium 4.4, BUN is 30, creatinine 0.5, GFR is greater than 60, sugar is 91, calcium is 9. Total bilirubin is 0.4, AST is 19, ALT is 32, alkaline phosphatase 59, total protein is 5.1. She will be discharged. Discussed with case management and doctors of Infectious Disease and she was here for urinary tract infection. Nigel Wheeler DO
[2018-01-05] MEDS ORDERED: Sodium Chloride 0.9% 1,000 ML IV STA ×2 (15:00→16:07)
--- NOTE | 2018-01-05 15:59 | CP.PCM.CON ---
History of Present Illness - History of Present Illness History of Present Illness: Critical Care Consult Note HPI Patient is 82yo female with PMhx Pulm HTN, COPD on home O2, CHF, stage 2 sacral decub, VRE UTI, admitted for UTI. This afternoon patients BP noted to 80/50, repeat prior to any IVF infusion 94/53, MAP 66. Currently the patient is awake, alert, NAD, comfortable, providing full history, reports no major complaints. Pt earlier received her dose of Lopressor, Sildernafil as per regular scheduled meds PMhx as above PShx as above MEds as per EMR ROS NEG FHX NC Social former smoker, denies etoh, drug use Review of Systems - Review of Systems Review of Systems: as per HPI Past Patient History - Infectious Disease Hx of Infectious Diseases: None - Tetanus Immunizations Tetanus Immunization: Unknown - Past Medical History & Family History Past Medical History?: Yes - Past Social History Smoking Status: Former Smoker - CARDIAC Hx Congestive Heart Failure: Yes - PULMONARY Hx Chronic Obstructive Pulmonary Disease (COPD): Yes - NEUROLOGICAL Hx Neurological Disorder: Yes Hx Dizziness: Yes - HEENT Hx HEENT Problems: Yes Hx Cataracts: Yes (b/l no sx) - RENAL Hx Chronic Kidney Disease: No - ENDOCRINE/METABOLIC Hx Diabetes Mellitus Type 2: Yes - HEMATOLOGICAL/ONCOLOGICAL Hx Blood Disorders: Yes Hx Anemia: Yes (blood transfusion) Hx Shingles: No (pt denies having shingles) - INTEGUMENTARY Hx Dermatological Problems: Yes Other/Comment: 1cm x 1cm small opening at butt crack. - MUSCULOSKELETAL/RHEUMATOLOGICAL Hx Musculoskeletal Disorders: Yes Hx Falls: Yes - GASTROINTESTINAL Hx Gastrointestinal Disorders: Yes (exploratry lap with 2 inches of bowel resected) Hx Diverticulitis: Yes Hx Gall Bladder Disease: Yes (CHLOECYSTECTOMY) Hx Gastroesophageal Reflux: Yes Other/Comment: celiac disease, umbilical hernia - GENITOURINARY/GYNECOLOGICAL Hx Genitourinary Disorders: Yes Hx Urinary Tract Infection: Yes - PSYCHIATRIC Hx Psychophysiologic Disorder: Yes Hx Anxiety: Yes Hx Panic Symptoms: Yes Hx Substance Use: No - SURGICAL HISTORY Hx Appendectomy: Yes Hx Cardiac Catheterization: Yes Hx Cholecystectomy: Yes Hx Coronary Stent: Yes (x2 ptca) Other/Comment: t12 kyphoplasty - ANESTHESIA Hx Anesthesia: Yes Hx Anesthesia Reactions: No Hx Malignant Hyperthermia: No Meds Allergies/Adverse Reactions: Allergies Allergy/AdvReac Type Severity Reaction Status Date / Time morphine Allergy VOMITING Verified 01/02/18 19:22 codeine AdvReac VOMITING Verified 01/02/18 19:22 hydromorphone HCl AdvReac VOMITING Verified 01/02/18 19:22 [From Dilaudid] MYOCINS AdvReac VOMITING Uncoded 01/02/18 19:22 - Medications Medications: Current Medications Acetaminophen (Tylenol 325mg Tab) 650 mg PO Q4H PRN PRN Reason: Pain, moderate (4-7) Albuterol/Ipratropium (Duoneb 3 Mg/0.5 Mg (3 Ml) Ud) 3 ml IH [id number] [facility] Last Admin: 01/05/18 13:38 Dose: 3 ml Albuterol/Ipratropium (Duoneb 3 Mg/0.5 Mg (3 Ml) Ud) 3 ml IH Q2H PRN PRN Reason: Shortness of Breath Alprazolam (Xanax) 0.5 mg PO Q6 [facility] PRN Reason: Protocol Stop: 01/09/18 18:01 Last Admin: 01/05/18 12:49 Dose: 0.5 mg Aspirin (Aspirin Chewable) 81 mg PO DAILY [facility] Last Admin: 01/05/18 11:35 Dose: 81 mg Atorvastatin Calcium (Lipitor) 10 mg PO DAILY [facility] Last Admin: 01/05/18 11:35 Dose: 10 mg Azithromycin (Zithromax) 250 mg PO DAILY [facility] PRN Reason: Protocol Stop: 01/19/18 10:19 Last Admin: 01/05/18 11:34 Dose: 250 mg Budesonide (Pulmicort Respules) 0.5 mg IH [id number] [facility] Last Admin: 01/05/18 08:02 Dose: 0.5 mg Clopidogrel Bisulfate (Plavix) 75 mg PO DAILY [facility] Last Admin: 01/05/18 11:35 Dose: 75 mg Docusate Sodium (Colace) 100 mg PO DAILY [facility] Last Admin: 01/05/18 11:34 Dose: 100 mg Enoxaparin Sodium (Lovenox) 40 mg SC DAILY [facility] PRN Reason: Protocol Last Admin: 01/05/18 11:36 Dose: 40 mg Ferrous Sulfate (Feosol) 324 mg PO DAILY [facility] Last Admin: 01/05/18 11:34 Dose: 324 mg Home Med (Home Med) 1 unit PO DAILY [facility] Last Admin: 01/05/18 11:35 Dose: 1 unit Home Med (Home Med) 1 unit PO Q12 [facility] Last Admin: 01/05/18 11:36 Dose: 1 unit Sodium Chloride (Sodium Chloride 0.45%) 1,000 mls @ 30 mls/hr IV .Q24H [facility] Last Admin: 01/04/18 18:28 Dose: 30 mls/hr Insulin Human Regular (Humulin R High) 0 units SC [facility] PRN Reason: Protocol Last Admin: 01/04/18 21:30 Dose: Not Given Lactobacillus Acidophilus (Bacid Acidophilus) 1 cap PO BID [facility] Last Admin: 01/05/18 11:34 Dose: 1 cap Meclizine HCl (Antivert) 12.5 mg PO Q6 PRN PRN Reason: Dizziness Megestrol Acetate (Megace) 40 mg PO DAILY [facility] Last Admin: 01/05/18 11:43 Dose: 40 mg Metoprolol Tartrate (Lopressor) 12.5 mg PO BID [facility] Last Admin: 01/05/18 11:34 Dose: 12.5 mg Polyethylene Glycol (Miralax) 17 gm PO DAILY [facility] Last Admin: 01/05/18 11:33 Dose: 17 gm Prednisone (Prednisone Tab) 10 mg PO DAILY [facility] Last Admin: 01/05/18 11:43 Dose: 10 mg Sildenafil Citrate (Revatio) 20 mg PO BID [facility] Last Admin: 01/05/18 11:43 Dose: 20 mg Tramadol HCl (Ultram) 50 mg PO TID [facility] Last Admin: 01/05/18 11:44 Dose: Not Given Physical Exam - Constitutional Appears: Non-toxic, No Acute Distress - Head Exam Head Exam: NORMAL INSPECTION - Eye Exam Eye Exam: Normal appearance - ENT Exam ENT Exam: Mucous Membranes Dry - Neck Exam Neck exam: Positive for: Full Rom - Respiratory Exam Respiratory Exam: Clear to Auscultation Bilateral, NORMAL BREATHING PATTERN - Cardiovascular Exam Cardiovascular Exam: REGULAR RHYTHM, +S1, +S2 - GI/Abdominal Exam GI & Abdominal Exam: Normal Bowel Sounds, Soft - Neurological Exam Neurological exam: Alert, Oriented x3 - Skin Skin Exam: Normal Color, Warm Results - Vital Signs Recent Vital Signs: Last Vital Signs Temp 97.9 F 01/05/18 06:00 Pulse 86 01/05/18 11:34 Resp 18 01/05/18 06:00 BP 104/51 L 01/05/18 11:34 Pulse Ox 98 01/05/18 06:00 - Labs Result Diagrams: 01/05/18 06:30 01/05/18 06:30 Labs: Laboratory Results - last 24 hr 01/04/18 01/04/18 01/05/18 15:55 21:06 06:27 WBC RBC Hgb Hct MCV MCH MCHC RDW Plt Count MPV Sodium Potassium Chloride Carbon Dioxide Anion Gap BUN Creatinine Est GFR ( Amer) Est GFR (Non-Af Amer) POC Glucose (mg/dL) 168 H 119 H 87 Random Glucose Calcium Total Bilirubin AST ALT Alkaline Phosphatase Total Protein Albumin Globulin Albumin/Globulin Ratio 01/05/18 01/05/18 01/05/18 06:30 06:30 11:18 WBC 6.4 RBC 3.35 L Hgb 10.1 L Hct 31.8 L MCV 94.9 MCH 30.1 MCHC 31.8 RDW 16.4 H Plt Count 196 MPV 11.1 H Sodium 138 Potassium 4.4 Chloride 97 L Carbon Dioxide 39 H Anion Gap 6 L BUN 13 Creatinine 0.5 L Est GFR ( Amer) > 60 Est GFR (Non-Af Amer) > 60 POC Glucose (mg/dL) 111 H Random Glucose 91 Calcium 9.0 Total Bilirubin 0.4 AST 19 ALT 32 Alkaline Phosphatase 59 Total Protein 5.1 L Albumin 2.9 L Globulin 2.2 Albumin/Globulin Ratio 1.3 Assessment & Plan - Assessment and Plan (Free Text) Assessment: 82yo female with UTI, Hypotnesion Hypotension, resolved UTI] COPD Pulm HTN - currently afebrile, HD stable, SBP 90-95, MAP 60-70, HR 80s, AAOx3, NAD - receiving 2L nS bolus - IVF bolus - check CBC, Lactate, CMP - antibiotics as per ID - hold BP meds - will reassess after IVF bolus, currently hemodynamically stable
--- NOTE | 2018-01-05 16:15 | CP.PCM.PN ---
Subjective - Date & Time of Evaluation Date of Evaluation: 01/05/18 Time of Evaluation: 15:00 - Subjective Subjective: PGY-[address] Wheeler CC: SBP 60 Ms Alexey Pinedo, 82 F with PMH of dCHF, end-stage COPD on home O2, CAD s/p stents, severe pulm HTN, and diabetes was admitted and treated for VRE UTI and stage II sacral decubitus ulcer. Pt BP was 140 last night. Her baseline BP was at 120-140. This AM she was at 104/51. She received renaxa 1000, metoprolol 12.5 , xanax 0.5 at 6am and 1pm. I was paged by RN re: SBP 60. Manual BP was 80. Pt was lethargic. Objective - Vital Signs/Intake and Output Vital Signs (last 24 hours): Temp Pulse Resp BP Pulse Ox 98.7 F 82 18 104/51 L 100 01/05/18 14:00 01/05/18 14:00 01/05/18 14:00 01/05/18 11:34 01/05/18 14:00 Intake and Output: 01/05/18 01/05/18 06:59 18:59 Intake Total 720 860 Output Total 325 Balance 720 535 - Medications Medications: Current Medications Acetaminophen (Tylenol 325mg Tab) 650 mg PO Q4H PRN PRN Reason: Pain, moderate (4-7) Albuterol/Ipratropium (Duoneb 3 Mg/0.5 Mg (3 Ml) Ud) 3 ml IH [id number] [facility] Last Admin: 01/05/18 13:38 Dose: 3 ml Albuterol/Ipratropium (Duoneb 3 Mg/0.5 Mg (3 Ml) Ud) 3 ml IH Q2H PRN PRN Reason: Shortness of Breath Alprazolam (Xanax) 0.5 mg PO BID [facility] PRN Reason: Protocol Stop: 01/09/18 18:01 Aspirin (Aspirin Chewable) 81 mg PO DAILY [facility] Last Admin: 01/05/18 11:35 Dose: 81 mg Atorvastatin Calcium (Lipitor) 10 mg PO DAILY [facility] Last Admin: 01/05/18 11:35 Dose: 10 mg Azithromycin (Zithromax) 250 mg PO DAILY [facility] PRN Reason: Protocol Stop: 01/19/18 10:19 Last Admin: 01/05/18 11:34 Dose: 250 mg Budesonide (Pulmicort Respules) 0.5 mg IH [id number] [facility] Last Admin: 01/05/18 08:02 Dose: 0.5 mg Clopidogrel Bisulfate (Plavix) 75 mg PO DAILY [facility] Last Admin: 01/05/18 11:35 Dose: 75 mg Enoxaparin Sodium (Lovenox) 40 mg SC DAILY [facility] PRN Reason: Protocol Last Admin: 01/05/18 11:36 Dose: 40 mg Home Med (Home Med) 1 unit PO DAILY [facility] Last Admin: 01/05/18 11:35 Dose: 1 unit Sodium Chloride (Sodium Chloride 0.9%) 1,000 mls @ 999 mls/hr IV .Q1H1M [facility] Stop: 01/05/18 17:07 Sodium Chloride (Sodium Chloride 0.9%) 1,000 mls @ 75 mls/hr IV .[id number] [facility] Stop: 01/06/18 05:49 Insulin Human Regular (Humulin R High) 0 units SC ACHS [facility] PRN Reason: Protocol Last Admin: 01/04/18 21:30 Dose: Not Given Lactobacillus Acidophilus (Bacid Acidophilus) 1 cap PO BID [facility] Last Admin: 01/05/18 11:34 Dose: 1 cap Megestrol Acetate (Megace) 40 mg PO DAILY [facility] Last Admin: 01/05/18 11:43 Dose: 40 mg Polyethylene Glycol (Miralax) 17 gm PO DAILY [facility] Last Admin: 01/05/18 11:33 Dose: 17 gm Prednisone (Prednisone Tab) 5 mg PO DAILY [facility] Sildenafil Citrate (Revatio) 20 mg PO BID [facility] Last Admin: 01/05/18 11:43 Dose: 20 mg Tramadol HCl (Ultram) 50 mg PO TID PRN PRN Reason: Pain, severe (8-10) - Labs Labs: 01/05/18 06:30 01/05/18 06:30 PT 11.1 SECONDS (9.4-12.5) 01/02/18 14:10 INR 0.97 (0.93-1.08) 01/02/18 14:10 APTT 31.7 Seconds (25.1-36.5) 01/02/18 14:10 - Constitutional Appears: Confused - Head Exam Head Exam: ATRAUMATIC, NORMAL INSPECTION, NORMOCEPHALIC - Eye Exam Eye Exam: EOMI, Normal appearance, PERRL. absent: Scleral icterus - ENT Exam ENT Exam: Mucous Membranes Dry - Neck Exam Additional comments: No JVD - Respiratory Exam Respiratory Exam: Clear to Ausculation Bilateral, NORMAL BREATHING PATTERN. absent: Rales, Rhonchi, Wheezes - Cardiovascular Exam Cardiovascular Exam: REGULAR RHYTHM, +S1, +S2 - GI/Abdominal Exam GI & Abdominal Exam: Soft. absent: Guarding, Rigid - Extremities Exam Extremities Exam: absent: Calf Tenderness - Neurological Exam Neurological Exam: Altered - Psychiatric Exam Psychiatric exam: Flat Affect - Skin Skin Exam: Dry Assessment and Plan - Assessment and Plan (Free Text) Plan: Hypotension, (Machine SBP 60. Manual SBP 80 with alter mental status) - resolved Likely due to polypharmacy vs low volume status in the setting of pre-load dependent diastolic CHF, severe pulmonary hypertension, low oral intake R/O sepsis-induced hypotension Unlikely bleeding or obstructive shock - Goal BP: MAP > 65 - Continue home o2 at 2L - EKG to r/o cardiac cause - 2L IV bolus stat; after the 2L bolus, give 1 more L NS @ 75cc/hr - aspiration precaution - blood sugar 154 - CBC, CMP, cardiac iso, BNP, vbg lactate - Consult ICU for possible shock - Consult Cardiology for polypharmacy induced hypotension: - Per Cardiology, medication changes as follows: - Cut Xanax to 0.5 BID - Stop colace. COntinue miralax - Stop Feosol. Can re-do iron study - Stop renaxa - Stop meclizine - stop lopressor - cut prednisone to 5mg PO daily - Make tramadol PRN - Upgrade to telemetry 3:00-3:30 pm SBP 90s --> 80s 4:00 pm SBP 100
[2018-01-05] MEDS ORDERED: Sodium Chloride 0.9% 1,000 ML IV SCH (16:30)
[2018-01-05 16:43] LABS: VENOUS BLOOD GAS BASE EXCESS 3.5 mmol/L (0.0-2.0); VENOUS BLOOD GAS PO2 27 mm/Hg (30-55); VENOUS BLOOD PH 7.22 (7.32-7.43)
[2018-01-05 16:44] LABS: BASO # 0.01 K/mm3 (0.0-2.0); BASO % 0.1 % (0.0-3.0); EOS # 0.1 (0.0-0.7); EOS % 1.9 % (1.5-5.0); GRAN # 5.8 (1.4-6.5); GRAN % 84.2 % (50.0-68.0); HEMOGLOBIN 10.1 g/dL (12.0-16.0); LYMPH # 0.7 (1.2-3.4); LYMPH % 9.7 % (22.0-35.0); MEAN CELL VOLUME 96.8 fl (80.0-105.0); MEAN CORPUSCULAR HEMOGLOBIN 29.8 pg (25.0-35.0); MEAN CORPUSCULAR HGB CONC 30.8 g/dl (31.0-37.0); MEAN PLATELET VOLUME 10.9 fl (7.0-11.0); MONO # 0.3 (0.1-0.6); MONO % 4.1 % (1.0-6.0); RBC 3.39 10^6/uL (3.5-6.1); RED CELL DISTRIBUTION WIDTH 16.3 % (11.5-14.5); WHITE BLOOD COUNT 6.9 10^3/ul (4.5-11.0)
[2018-01-05 16:59] LABS: ALB/GLOB RATIO 1.2 (1.1-1.8); ALBUMIN 2.7 g/dL (3.0-4.8); ALT/SGPT 27 U/L (7-56); AST/SGOT 14 U/L (14-36); BLOOD UREA NITROGEN 15 mg/dL (7-21); CALCIUM 8.2 mg/dL (8.4-10.5); GFR AFRICAN-AMERICAN > 60; GFR NON-AFRICAN AMERICAN > 60
[2018-01-05 17:13] LABS: B-TYPE NATRIURETIC PEPTIDE 198 pg/mL (0-450); TROPONIN I < 0.01 ng/mL
--- NOTE | 2018-01-05 21:08 | CARD ---
APPROVED REPORT EKG Measurement Heart [id number] <Conclusion> Normal sinus rhythm Normal ECG
[2018-01-05] MEDS: Insulin Reg-HIGH-Coverage SC SCH ×3 (21:18→22:27)
[2018-01-05] MEDS ORDERED: Vancomycin 2 GM in Sodium Chloride 0.9% 500 ML IVPB ONE (22:19)
[2018-01-05 23:11] LABS: ARTERIAL BLOOD GAS HCO3 32.2 mmol/L (21-28); ARTERIAL BLOOD GAS O2 SAT 93.3 % (95-98); ARTERIAL BLOOD GAS PCO2 61 mm/Hg (35-45); ARTERIAL BLOOD GAS PH 7.33 (7.35-7.45); ARTERIAL BLOOD GAS TCO2 34.1 mmol.L (22-28)
[2018-01-05 23:14] LABS: URINE BILIRUBIN NEGATIVE (NEGATIVE); URINE BLOOD NEGATIVE (NEGATIVE); URINE GLUCOSE (UA) NEGATIVE (NEGATIVE); URINE LEUKOCYTE ESTERASE NEGATIVE Leu/uL (NEGATIVE); URINE PROTEIN 30 mg/dL (<30 mg/dL); URINE UROBILINOGEN 0.2 E.U./dL (<1 E.U./dL)
[2018-01-05 23:25] LABS: URINE APPEARANCE SL CLOUDY (CLEAR); URINE COLOR YELLOW (YELLOW)
[2018-01-05 23:33] LABS: URINE RBC 0 - 2 /hpf (0-2)
[2018-01-05 23:34] LABS: URINE BACTERIA FEW (NEG)
--- NOTE | 2018-01-06 00:11 | CP.PCM.PN ---
<Gadiel Vila - Last Filed: 01/06/18 00:05> Subjective - Date & Time of Evaluation Date of Evaluation: 01/06/18 Time of Evaluation: 00:05 - Subjective Subjective: ICU Consult Note - Mervat Vila PGY2 HPI: Patient is an 82yo female with history of pulmonary hypertension, COPD on home oxygen, CHF, Stage 2 sacral decubitus ulcer who was admitted to [facility] with pseudomonas and vancomycin resistant enterococcus UTI. Per family, she had been lethargic this afternoon which was a cause of concern. ICU was consulted for previously for low blood pressure and it was noted that she had received lopressor as well as sildenafil. Her blood pressure had responded well with fluid administration however her oxygenation on nasal cannula declined which prompted repeat ICU consultation. On evaluation, patient was seen approximately one hour after being placaed on BiPAP 08/24 at 30% FiO2 and was arousable and able to answer simple questions. She denied chest pain, palpitations, SOB, abdominal pain, nausea, vomiting, fever, chills, cough. 12point ROS as per above otherwise negative PMH: as stated above PSHx: as stated above Family Hx: noncontributory Social Hx: former smoker, denies illicit drugs and alcohol use; lives with her children Objective - Vital Signs/Intake and Output Vital Signs (last 24 hours): Temp Pulse Resp BP Pulse Ox 98.7 F 101 H 18 110/55 L 95 01/05/18 14:00 01/05/18 21:10 01/05/18 14:00 01/05/18 18:29 01/05/18 15:10 Intake and Output: 01/05/18 01/06/18 18:59 06:59 Intake Total 860 Output Total 325 Balance 535 - Medications Medications: Current Medications Acetaminophen (Tylenol 325mg Tab) 650 mg PO Q4H PRN PRN Reason: Pain, moderate (4-7) Last Admin: 01/05/18 18:27 Dose: 650 mg Albuterol/Ipratropium (Duoneb 3 Mg/0.5 Mg (3 Ml) Ud) 3 ml IH [id number] Last Admin: 01/05/18 21:04 Dose: 3 ml Albuterol/Ipratropium (Duoneb 3 Mg/0.5 Mg (3 Ml) Ud) 3 ml IH Q2H PRN PRN Reason: Shortness of Breath Alprazolam (Xanax) 0.5 mg PO BID [facility] PRN Reason: Protocol Stop: 01/09/18 18:01 Aspirin (Aspirin Chewable) 81 mg PO DAILY [facility] Last Admin: 01/05/18 11:35 Dose: 81 mg Atorvastatin Calcium (Lipitor) 10 mg PO DAILY [facility] Last Admin: 01/05/18 11:35 Dose: 10 mg Budesonide (Pulmicort Respules) 0.5 mg IH [id number] [facility] Last Admin: 01/05/18 21:05 Dose: 0.5 mg Clopidogrel Bisulfate (Plavix) 75 mg PO DAILY [facility] Last Admin: 01/05/18 11:35 Dose: 75 mg Doxycycline Hyclate (Doryx) 100 mg PO Q12 [facility] PRN Reason: Protocol Stop: 01/15/18 10:01 Enoxaparin Sodium (Lovenox) 40 mg SC DAILY [facility] PRN Reason: Protocol Last Admin: 01/05/18 11:36 Dose: 40 mg Home Med (Home Med) 1 unit PO DAILY [facility] Last Admin: 01/05/18 11:35 Dose: 1 unit Sodium Chloride (Sodium Chloride 0.9%) 1,000 mls @ 75 mls/hr IV .[id number] [facility] Stop: 01/06/18 05:49 Last Admin: 01/05/18 18:24 Dose: 75 mls/hr Meropenem (Merrem Iv 1 Gm Premix) 50 mls @ 100 mls/hr IVPB Q8 [facility] PRN Reason: Protocol Stop: 01/15/18 06:01 Vancomycin HCl 2 gm/ Sodium (Chloride) 500 mls @ 170 mls/hr IVPB ONCE ONE PRN Reason: Protocol Stop: 01/06/18 01:15 Last Admin: 01/05/18 23:12 Dose: 170 mls/hr Insulin Human Regular (Humulin R High) 0 units SC ACHS [facility] PRN Reason: Protocol Last Admin: 01/05/18 22:27 Dose: Not Given Lactobacillus Acidophilus (Bacid Acidophilus) 1 cap PO BID [facility] Last Admin: 01/05/18 21:17 Dose: Not Given Megestrol Acetate (Megace) 40 mg PO DAILY [facility] Last Admin: 01/05/18 11:43 Dose: 40 mg Polyethylene Glycol (Miralax) 17 gm PO DAILY [facility] Last Admin: 01/05/18 11:33 Dose: 17 gm Prednisone (Prednisone Tab) 5 mg PO DAILY [facility] Sildenafil Citrate (Revatio) 20 mg PO BID [facility] Last Admin: 01/05/18 18:18 Dose: 20 mg Tramadol HCl (Ultram) 50 mg PO TID PRN PRN Reason: Pain, severe (8-10) - Labs Labs: 01/05/18 16:30 01/05/18 16:30 PT 11.1 SECONDS (9.4-12.5) 01/02/18 14:10 INR 0.97 (0.93-1.08) 01/02/18 14:10 APTT 31.7 Seconds (25.1-36.5) 01/02/18 14:10 - Constitutional Appears: Chronically Ill - Head Exam Head Exam: ATRAUMATIC, NORMOCEPHALIC - Eye Exam Eye Exam: EOMI, PERRL - ENT Exam ENT Exam: Mucous Membranes Moist - Neck Exam Neck Exam: Normal Inspection - Respiratory Exam Respiratory Exam: absent: Rales, Rhonchi, Wheezes - Cardiovascular Exam Cardiovascular Exam: RRR, +S1, +S2. absent: Gallop, Rubs - GI/Abdominal Exam GI & Abdominal Exam: Soft. absent: Distended, Firm, Guarding, Rigid, Tenderness , Rebound - Extremities Exam Extremities Exam: Normal Inspection. absent: Pedal Edema - Neurological Exam Neurological Exam: Alert, Awake - Psychiatric Exam Psychiatric exam: Normal Affect, Normal Mood - Skin Skin Exam: Dry, Intact, Normal Color, Warm Assessment and Plan - Assessment and Plan (Free Text) Plan: 82yo female with history of pulmonary HTN, COPD on home O2, CHF, stage 2 sacral decubitus admitted to [facility] with VRE UTI 1. VRE UTI 2. COPD 3. Sacral decubitus 4. Hypotension, resolved 5. Pulmonary hypertension -Patient placed on BiPAP 6 @ 30% FiO2 -ABG obtained and reviewed -Recommend continuing BiPAP overnight and obtaining ABG in the AM to re- evaluate respiratory status -Continue with ABX as per ID recommendations -IVF hydration -Repeat labs in AM -Recommend holding hypotensive medications Patient seen and case discussed with attending, Dr. Kat <Jamey Kat Q - Last Filed: 01/06/18 00:28> Objective - Vital Signs/Intake and Output Vital Signs (last 24 hours): Temp Pulse Resp BP Pulse Ox 98.7 F 84 18 110/55 L 95 01/05/18 14:00 01/05/18 22:00 01/05/18 14:00 01/05/18 18:29 01/05/18 15:10 Intake and Output: 01/05/18 01/06/18 18:59 06:59 Intake Total 860 Output Total 325 Balance 535 - Medications Medications: Current Medications Acetaminophen (Tylenol 325mg Tab) 650 mg PO Q4H PRN PRN Reason: Pain, moderate (4-7) Last Admin: 01/05/18 18:27 Dose: 650 mg Albuterol/Ipratropium (Duoneb 3 Mg/0.5 Mg (3 Ml) Ud) 3 ml IH [id number] [facility] Last Admin: 01/05/18 21:04 Dose: 3 ml Albuterol/Ipratropium (Duoneb 3 Mg/0.5 Mg (3 Ml) Ud) 3 ml IH Q2H PRN PRN Reason: Shortness of Breath Alprazolam (Xanax) 0.5 mg PO BID [facility] PRN Reason: Protocol Stop: 01/09/18 18:01 Aspirin (Aspirin Chewable) 81 mg PO DAILY [facility] Last Admin: 01/05/18 11:35 Dose: 81 mg Atorvastatin Calcium (Lipitor) 10 mg PO DAILY [facility] Last Admin: 01/05/18 11:35 Dose: 10 mg Budesonide (Pulmicort Respules) 0.5 mg IH [id number] [facility] Last Admin: 01/05/18 21:05 Dose: 0.5 mg Clopidogrel Bisulfate (Plavix) 75 mg PO DAILY [facility] Last Admin: 01/05/18 11:35 Dose: 75 mg Doxycycline Hyclate (Doryx) 100 mg PO Q12 [facility] PRN Reason: Protocol Stop: 01/15/18 10:01 Enoxaparin Sodium (Lovenox) 40 mg SC DAILY [facility] PRN Reason: Protocol Last Admin: 01/05/18 11:36 Dose: 40 mg Home Med (Home Med) 1 unit PO DAILY [facility] Last Admin: 01/05/18 11:35 Dose: 1 unit Sodium Chloride (Sodium Chloride 0.9%) 1,000 mls @ 75 mls/hr IV .[id number] [facility] Stop: 01/06/18 05:49 Last Admin: 01/05/18 18:24 Dose: 75 mls/hr Meropenem (Merrem Iv 1 Gm Premix) 50 mls @ 100 mls/hr IVPB Q8 [facility] PRN Reason: Protocol Stop: 01/15/18 06:01 Vancomycin HCl 2 gm/ Sodium (Chloride) 500 mls @ 170 mls/hr IVPB ONCE ONE PRN Reason: Protocol Stop: 01/06/18 01:15 Last Admin: 01/05/18 23:12 Dose: 170 mls/hr Insulin Human Regular (Humulin R High) 0 units SC ACHS [facility] PRN Reason: Protocol Last Admin: 01/05/18 22:27 Dose: Not Given Lactobacillus Acidophilus (Bacid Acidophilus) 1 cap PO BID [facility] Last Admin: 01/05/18 21:17 Dose: Not Given Megestrol Acetate (Megace) 40 mg PO DAILY [facility] Last Admin: 01/05/18 11:43 Dose: 40 mg Polyethylene Glycol (Miralax) 17 gm PO DAILY [facility] Last Admin: 01/05/18 11:33 Dose: 17 gm Prednisone (Prednisone Tab) 5 mg PO DAILY [facility] Sildenafil Citrate (Revatio) 20 mg PO BID [facility] Last Admin: 01/05/18 18:18 Dose: 20 mg Tramadol HCl (Ultram) 50 mg PO TID PRN PRN Reason: Pain, severe (8-10) - Labs Labs: 01/05/18 16:30 01/05/18 16:30 PT 11.1 SECONDS (9.4-12.5) 01/02/18 14:10 INR 0.97 (0.93-1.08) 01/02/18 14:10 APTT 31.7 Seconds (25.1-36.5) 01/02/18 14:10 Attending/Attestation - Attestation I have personally seen and examined this patient.: Yes I have fully participated in the care of the patient.: Yes I have reviewed all pertinent clinical information, including history, physical exam and plan: Yes Notes (Text): 01/06/18 00:22 I agree with the above mentioned note and exam with the addition/exception of the followin82 y/o female with the PMHx as listed above was consulted by the ICU team due to concerns for decreased responsiveness and an elevated C02 on venous blood gases done earlier today. Patient was placed on Bipap mask and an ABG was drawn showing slight hypercapnic failure (7.33/61/57) however the patient was no longer obtunded during the time of my exam, showing an adequate response to bipap therapy. Patient was awakened by verbal stimulus and able to follow commands and answer questions. Currently hemodynamically stable, so she does not require a transfer to the ICU. Nursing staff relayed that the patient's daughter was a nurse and wanted to be informed of any updates to her mother's care. I called the patient's daughter (Rachel) to update her on her mother's condition and plan to continue her on Bipap therapy on the telemetry floor, to which she agreed. Suggest repeat ABG in the AM to ensure that the patient's C02 has normalized and her mentation has returned to baseline.
[2018-01-06] MEDS: Albuterol-Ipratrop 3 mg / 0.5 (3 ml) UD IH SCH ×4 (02:00→21:44)
[2018-01-06] MEDS ORDERED: Meropenem IV 1 gm in NS 50 ML IVPB SCH (06:00)
[2018-01-06] MEDS: Budesonide 0.5 mg/2 ml Inhal Susp UD IH SCH ×2 (08:04→21:45)
[2018-01-06] MEDS: Insulin Reg-HIGH-Coverage SC SCH ×4 (08:15→23:07)
--- NOTE | 2018-01-06 08:39 | RAD ---
PROCEDURE: CHEST RADIOGRAPH, 1 VIEW HISTORY: Hypertension COMPARISON: 12/30/2017. FINDINGS: LUNGS: Again seen is pulmonary venous congestion and a background of COPD/interstitial fibrosis. There is atelectasis in the lower lobes. PLEURA: No pneumothorax. Suspect small left pleural effusion. CARDIOVASCULAR: Normal. OSSEOUS STRUCTURES: No significant abnormalities. VISUALIZED UPPER ABDOMEN: Normal. OTHER FINDINGS: None. IMPRESSION: Severe pulmonary venous congestion on a background of COPD/interstitial lung disease.
--- NOTE | 2018-01-06 08:49 | PN ---
DATE: 01/05/2018 SUBJECTIVE: Ms. Shahida Blackburn was seen earlier this morning in 572, bed 1, with chief complaint of weakness and mild shortness of breath. PHYSICAL EXAMINATION: VITAL SIGNS: Temperature of 98, blood pressure is 100/60, respiratory rate of 18, heart rate of 76. HEENT: Unremarkable. NECK: Supple. LUNGS: Have decreased breath sounds. HEART: Normal S1, S2. ABDOMEN: Soft. LABORATORY DATA: Reveals a white count of 6.9, hemoglobin of 10, and platelets of 158. BUN of 15, creatinine of 0.5. Urinalysis is noted. Microbiology reveals the blood cultures are negative. Patient had an EKG today, which is reviewed. Dr. Polo Jacobson's note is reviewed. Patient was supposed to be discharged today and patient's condition apparently deteriorated afterwards and she is transferred to telemetry floor and found to have a drop in blood pressure. ASSESSMENT AND PLAN: This is an 82-year-old female with end-stage chronic obstructive lung disease, chronic respiratory failure, on home O2 therapy of 2.5 L, congestive heart failure, hypertension, coronary artery disease, urinary tract infection, arthritis, anemia, pulmonary hypertension, osteoporosis, who was admitted because of urinary tract infection, though on this admission patient had normal urinalysis, negative cultures and patient with a stage II decubitus ulcer, which is minimal. The intravenous meropenem and vancomycin were stopped this morning and switched to p.o. Zithromax based on old EKG, QTc of 445. At this point, patient did have of hypotension. We will repeat bob cultures and blood, urine, sputum, procalcitonin, and a chest x-ray and then we will restart the meropenem and use p.o. doxycycline and then bob cultures and discontinue Zithromax and we will follow closely with you. Jose Eastman MD
[2018-01-06] MEDS: Sildenafil 20 MG TAB PO SCH ×2 (09:40→17:23)
[2018-01-06] MEDS: Enoxaparin 40 mg Syringe SC SCH (09:40)
[2018-01-06] MEDS: Lactobacillus Acidophilus 500 MU Cap PO SCH ×2 (09:40→17:24)
[2018-01-06] MEDS: POLYETHYLENE GLYCOL 3350 17 GM/Dose PACKET PO SCH (09:40)
[2018-01-06] MEDS: DEXILANT 60 MG PO SCH (09:41)
--- NOTE | 2018-01-06 09:48 | PN ---
DATE: 01/06/2018 PULMONARY NOTE SUBJECTIVE: The patient appears comfortable this morning. She is not short of breath at rest. She is awake and alert. PHYSICAL EXAMINATION: VITAL SIGNS: Temperature is 97, pulse 74, respirations 18, blood pressure 140/75. Oxygen saturation on nasal cannula is 93%-95%. HEENT: Normocephalic, atraumatic. NECK: No JVD. CARDIOVASCULAR: Systolic ejection murmur at the lower left sternal border. No S3 gallop. LUNGS: Decreased breath sounds at the bases. Minimal rhonchi. No wheezing. EXTREMITIES: Positive for edema. No cyanosis, no clubbing. Calves are nontender to palpation. GI: Abdomen is soft, nontender and nondistended. Bowel sounds are positive. SKIN: No acute rash. Positive sacral decubitus. NEUROLOGIC: Exam limited at the present time. PERTINENT LABORATORY DATA: Chest x-ray was done late last night and reviewed. It is a very poor rotated film. I do not appreciate any new or significant changes. Arterial blood gas was also done on BiPAP, 08/24 with 30% oxygen. Results are pH 7.33, pCO2 of 61 and pO2 of 57. IMPRESSION: 1. Resistant urinary tract infection. 2. End-stage chronic obstructive pulmonary disease. 3. Pulmonary hypertension. 4. Coronary artery disease. 5. Anemia. 6. Transient hypotension-resolved. Plan: The patient appears comfortable this morning. She is not short of breath at rest. She is awake and alert. I did discuss the case with the night nurse at length. I have also reviewed the notes from last night at length. Apparently, the patient had a transient episode of hypotension and was transferred to the telemetry unit. This morning, her blood pressure is 140/75, and appears clinically more stable. I did review the chest x-ray as above. Again, it is a very poor rotated film, but I do not appreciate any new significant changes. Official results are pending. I have also reviewed the arterial blood gas. BiPAP settings have been changed. I did discuss the changes with the respiratory therapist at length. On physical exam, there is no significant bronchospasm noted. In addition, the oxygen saturation on nasal cannula is 93%-95%. I will continue with the current nebulizer treatments and low-dose oral steroids for now. The patient also remains on her Revatio-for the pulmonary hypertension. Inputs by the ICU team and Dr. Eastman are noted. There are no temperatures noted. There is no leukocytosis. The clinical status of the patient certainly appears improved-compared to yesterday. However, again, her overall status/prognosis remains very poor. All are aware. I will discuss the above with Dr. Wheeler this morning. Evgeny Briggs MD MTDD
[2018-01-06] MEDS ORDERED: Prostat 15 g packet GT SCH (10:00)
--- NOTE | 2018-01-06 10:14 | PN ---
DATE: SUBJECTIVE: She was going to try and go home yesterday. We had some issues. Her blood pressure bottomed out where it was normal, it then went down to the 70s, we are not sure why because she was doing quite well when we had the plan to discharge her and the blood pressures were 140s and all of a sudden when we started talking about discharging her, it went to 104, then 76 and to 77 out of the blue without any changes in our treatment and then within 24 hours, the treatment started to work and now blood pressure is up to 140/75. She is comfortable in bed this morning. Very alert. No complaints. No chest pain or shortness of breath. No abdominal pain. She is back to her old self. PHYSICAL EXAMINATION: VITAL SIGNS: She has a 97 temp, 74 pulse, 140/75 blood pressure, 18 respiratory rate, 92% O2 sat on nasal cannula. She was on BiPAP last night. HEENT: Head is atraumatic, normocephalic. GENERAL: Alert, oriented, back to her baseline. HEART: Regular rate. LUNGS: Decreased breath sounds. ABDOMEN: Soft. EXTREMITIES: No edema. LABORATORY DATA: She has a 6.9 white count, 10.1 hemoglobin, 32.8 hematocrit with 158 platelets. She has a 139 sodium, potassium 4.1, BUN 15, creatinine 0.5, last blood sugar was 118, total bili is 0.3, AST is 14, ALT is 27, alk phos 62, lactate dehydrogenase is 201, troponin I is less than 0.01. BNP was 198. ASSESSMENT AND PLAN: So at this time, this morning, she is doing well. She did have a positive nitrite in the urine. She is now on aspirin, Bacid, Doryx, DuoNebs, home medications, insulin, Lipitor, Lovenox, Megace, Merrem IV, MiraLax, Plavix, prednisone, Pulmicort, Revatio, Tylenol, Ultram and Xanax. She was seen by the hospitalist, then the Intensive Care Unit doctor and the rapid response doctor. She had a chest x-ray, which showed her severe pulmonary vascular congestion, chronic obstructive pulmonary disease, interstitial lung disease, which is her baseline for the most part. She was put on Merrem by Infectious Disease. I talked to Infectious Disease that how long she is to be on that, but right now at this time she is back to her baseline. We will have a discussion with family later. We will continue with the treatment and care. The is a progress note Shahida Blackburn who has end-stage chronic obstructive pulmonary disease, pulmonary hypertension, urinary tract infection. Nigel Wheeler DO
[2018-01-06] MEDS: Clotrimazole/Betamethasone Cream(15 gm) TOP SCH ×2 (10:19→17:23)
[2018-01-06] MEDS ORDERED: Prostat 15 g packet PO SCH (17:15)
--- NOTE | 2018-01-06 18:05 | CP.PCM.PN ---
Subjective - Date & Time of Evaluation Date of Evaluation: 01/06/18 Time of Evaluation: 10:15 - Subjective Subjective: Comfortable, no fevers but developed a pruritic erythematous rash on her posterior and anterior torso. Objective - Vital Signs/Intake and Output Vital Signs (last 24 hours): Temp Pulse Resp BP Pulse Ox 98.7 F 101 H 18 110/55 L 95 01/05/18 14:00 01/05/18 21:10 01/05/18 14:00 01/05/18 18:29 01/05/18 15:10 Intake and Output: 01/05/18 01/06/18 18:59 06:59 Intake Total 860 Output Total 325 Balance 535 - Medications Medications: Current Medications Acetaminophen (Tylenol 325mg Tab) 650 mg PO Q4H PRN PRN Reason: Pain, moderate (4-7) Last Admin: 01/05/18 18:27 Dose: 650 mg Albuterol/Ipratropium (Duoneb 3 Mg/0.5 Mg (3 Ml) Ud) 3 ml IH [id number] [facility] Last Admin: 01/05/18 21:04 Dose: 3 ml Albuterol/Ipratropium (Duoneb 3 Mg/0.5 Mg (3 Ml) Ud) 3 ml IH Q2H PRN PRN Reason: Shortness of Breath Alprazolam (Xanax) 0.5 mg PO BID [facility] PRN Reason: Protocol Stop: 01/09/18 18:01 Aspirin (Aspirin Chewable) 81 mg PO DAILY [facility] Last Admin: 01/05/18 11:35 Dose: 81 mg Atorvastatin Calcium (Lipitor) 10 mg PO DAILY [facility] Last Admin: 01/05/18 11:35 Dose: 10 mg Budesonide (Pulmicort Respules) 0.5 mg IH [id number] [facility] Last Admin: 01/05/18 21:05 Dose: 0.5 mg Clopidogrel Bisulfate (Plavix) 75 mg PO DAILY [facility] Last Admin: 01/05/18 11:35 Dose: 75 mg Doxycycline Hyclate (Doryx) 100 mg PO Q12 JEFFERY PRN Reason: Protocol Stop: 01/15/18 10:01 Enoxaparin Sodium (Lovenox) 40 mg SC DAILY [facility] PRN Reason: Protocol Last Admin: 01/05/18 11:36 Dose: 40 mg Home Med (Home Med) 1 unit PO DAILY [facility] Last Admin: 01/05/18 11:35 Dose: 1 unit Sodium Chloride (Sodium Chloride 0.9%) 1,000 mls @ 75 mls/hr IV .[id number] [facility] Stop: 01/06/18 05:49 Last Admin: 01/05/18 18:24 Dose: 75 mls/hr Meropenem (Merrem Iv 1 Gm Premix) 50 mls @ 100 mls/hr IVPB Q8 JEFFERY PRN Reason: Protocol Stop: 01/15/18 06:01 Vancomycin HCl 2 gm/ Sodium (Chloride) 500 mls @ 170 mls/hr IVPB ONCE ONE PRN Reason: Protocol Stop: 01/06/18 01:15 Last Admin: 01/05/18 23:12 Dose: 170 mls/hr Insulin Human Regular (Humulin R High) 0 units SC ACHS [facility] PRN Reason: Protocol Last Admin: 01/05/18 22:27 Dose: Not Given Lactobacillus Acidophilus (Bacid Acidophilus) 1 cap PO BID [facility] Last Admin: 01/05/18 21:17 Dose: Not Given Megestrol Acetate (Megace) 40 mg PO DAILY [facility] Last Admin: 01/05/18 11:43 Dose: 40 mg Polyethylene Glycol (Miralax) 17 gm PO DAILY [facility] Last Admin: 01/05/18 11:33 Dose: 17 gm Prednisone (Prednisone Tab) 5 mg PO DAILY [facility] Sildenafil Citrate (Revatio) 20 mg PO BID [facility] Last Admin: 01/05/18 18:18 Dose: 20 mg Tramadol HCl (Ultram) 50 mg PO TID PRN PRN Reason: Pain, severe (8-10) - Labs Labs: 01/05/18 16:30 01/05/18 16:30 PT 11.1 SECONDS (9.4-12.5) 01/02/18 14:10 INR 0.97 (0.93-1.08) 01/02/18 14:10 APTT 31.7 Seconds (25.1-36.5) 01/02/18 14:10 - Constitutional Appears: Chronically Ill - Head Exam Head Exam: NORMAL INSPECTION - ENT Exam ENT Exam: Mucous Membranes Moist - Neck Exam Neck Exam: absent: Meningismus - Respiratory Exam Respiratory Exam: Decreased Breath Sounds - Cardiovascular Exam Cardiovascular Exam: +S1, +S2 - GI/Abdominal Exam GI & Abdominal Exam: Soft. absent: Tenderness - Skin Skin Exam: Rash (macular, erythematous, blanching, posterior and anterior trunk) Assessment and Plan - Assessment and Plan (Free Text) Plan: Assessment new onset SIRS with transient hypotension, R/O sepsis new onset pruritic erythematous macular rash on the anterior and posterior trunk , R/O drug-induced S/P systemic inflammatory response syndrome, S/P severe sepsis with hypoxic respiratory failure S/P VDRF, S/P HCAP, new onset, right lower lobe on top of acute bronchitis chronic CHF end-stage COPD pulmonary HTN CAD dyslipidemia Plan has been started on Doxycycline and Merrem (day 2) - because of the rash, will hold antibiotics and observe will follow up blood, urine cx; PCT is <0.05, CXR showing pulmonary vascular congestion overall prognosis is poor
--- NOTE | 2018-01-06 23:13 | CON ---
DATE: 01/06/2018 CARDIOLOGY CONSULTATION HISTORY: The patient is an 82-year-old woman with multiple cardiac and pulmonary problems, who presents with hypotension. The patient was placed on Ranexa for chest pain. She was placed on beta blockers for her increased heart rate and she is Sildenafil for pulmonary retention. She received some Lasix because of a chest x-ray that revealed densities. PHYSICAL EXAMINATION: VITAL SIGNS: Because of this, her blood pressure was 80 with an altered mental status. After IV hydration and cessation of multiple medications, the patient is awake, alert, blood pressure is 105 systolic, heart rate sinus tachycardia at 110. NECK: Negative JVD. LUNGS: Without rales. Decreased breath sounds. HEART: Reveals S1, S2. EXTREMITIES: Without edema. LABORATORY DATA: EKG shows nonspecific ST-T changes. Hemoglobin is 10.1. Chemistries: BUN and creatinine are 15 and 0.5. Troponins are negative. IMPRESSION: 1. Hypotension secondary to multiple medications. 2. Stable angina. 3. Pulmonary hypertension. 4. Severe chronic obstructive pulmonary disease. 5. History of percutaneous transluminal coronary angioplasty and stent in the past. PLAN: Given these findings, I have changed several medications and I have stopped the Ranexa. I have stopped the beta blockers. The patient is currently on IV antibiotics. Harrison Echavarria MD
[2018-01-07] MEDS: Albuterol-Ipratrop 3 mg / 0.5 (3 ml) UD IH SCH ×4 (03:00→19:31)
[2018-01-07] MEDS: Insulin Reg-HIGH-Coverage SC SCH ×4 (07:56→22:00)
[2018-01-07 08:03] LABS: HEMOGLOBIN 9.3 g/dL (12.0-16.0); MEAN CELL VOLUME 95.8 fl (80.0-105.0); MEAN CORPUSCULAR HEMOGLOBIN 30.3 pg (25.0-35.0); MEAN CORPUSCULAR HGB CONC 31.6 g/dl (31.0-37.0); MEAN PLATELET VOLUME 10.7 fl (7.0-11.0); RBC 3.07 10^6/uL (3.5-6.1); RED CELL DISTRIBUTION WIDTH 16.7 % (11.5-14.5); WHITE BLOOD COUNT 5.8 10^3/ul (4.5-11.0)
[2018-01-07 08:21] LABS: ALB/GLOB RATIO 1.2 (1.1-1.8); ALBUMIN 2.7 g/dL (3.0-4.8); ALT/SGPT 27 U/L (7-56); AST/SGOT 15 U/L (14-36); BLOOD UREA NITROGEN 17 mg/dL (7-21); CALCIUM 9.1 mg/dL (8.4-10.5); GFR AFRICAN-AMERICAN > 60; GFR NON-AFRICAN AMERICAN > 60
[2018-01-07 08:30] LABS: ALB/GLOB RATIO 1.1 (1.1-1.8); ALBUMIN 2.6 g/dL (3.0-4.8); ALT/SGPT 23 U/L (7-56); AST/SGOT 18 U/L (14-36); BLOOD UREA NITROGEN 18 mg/dL (7-21); CALCIUM 8.9 mg/dL (8.4-10.5); GFR AFRICAN-AMERICAN > 60; GFR NON-AFRICAN AMERICAN > 60
--- NOTE | 2018-01-07 08:39 | PN ---
DATE: SUBJECTIVE: I saw her resting comfortably in bed this morning. She is in good spirits. She wants to eat, that is a good sign. She had a poor appetite a few days ago, now she has an appetite. She is still on the Clinimix. If she starts to eat, I will stop the Clinimix. MEDICATIONS: She is also on aspirin, Bacid, Doryx, DuoNebs, famotidine, Feosol, insulin, Lipitor, Lotrisone, Lovenox, Megace, Merrem, MiraLax, Plavix, prednisone, Pulmicort, Revatio, Tylenol, Ultram, vitamin C and Xanax. PHYSICAL EXAMINATION: VITAL SIGNS: She has a 98.7 temp, 88 pulse, 136/66 blood pressure, 20 respiratory rate, 95% O2 sat on nasal cannula. HEENT: Head is atraumatic, normocephalic. HEART: Regular rate. LUNGS: Clear to auscultation. ABDOMEN: Soft, nontender. Positive bowel sounds. EXTREMITIES: No edema. NEUROLOGIC: She is alert and comfortable, in good spirits. LABORATORY DATA: She has a 6.9 white count, 10.1 hemoglobin, 32.8 hematocrit with 158 platelets. She has a 0.97 INR. She has a 157 blood sugar, 139 sodium, potassium 4.1, calcium is 8.2. ASSESSMENT AND PLAN: She is being seen by Infectious Disease, Cardiology and Pulmonary. I will be talking to the doctor about length of time for antibiotics. She did develop a rash the other day. She has new-onset systemic inflammatory response syndrome, transient hypotension, erythematous rash, end-stage chronic obstructive pulmonary disease, pulmonary hypertension, coronary artery disease, high cholesterol. We will continue aggressive treatment and care. I feel the rash continues to heal up. Nigel Wheeler DO
--- NOTE | 2018-01-07 08:51 | PN ---
DATE: 01/07/2018 PULMONARY NOTE SUBJECTIVE: The patient appears comfortable this morning. She is not short of breath at rest. She is awake and alert. PHYSICAL EXAMINATION VITAL SIGNS: Temperature is 98.7, pulse 88, respirations 18/20, blood pressure 136/66. Oxygen saturation on nasal cannula is 95%. HEENT: Normocephalic, atraumatic. No JVD. CARDIOVASCULAR: Systolic ejection murmur at the lower left sternal border. No S3 gallop. LUNGS: Decreased breath sounds at the bases. Very minimal rhonchi. No wheezing. EXTREMITIES: Positive for edema. No cyanosis, no clubbing. Calves are nontender to palpation. GI: Abdomen is soft, nontender and nondistended. Bowel sounds are positive. SKIN: No acute rash. Positive sacral decubitus. NEUROLOGIC: Limited at the present time. IMPRESSION: 1. Resistant urinary tract infection. 2. End-stage chronic obstructive pulmonary disease. 3. Pulmonary hypertension. 4. Coronary artery disease. 5. Anemia. 6. Transient hypotension - resolved. PLAN: The patient appears comfortable this morning. She is not short of breath at rest. She is awake and alert. I did discuss the case with the night nurse at length. The night nurse stated that the patient had a good night. On physical exam, there is no significant bronchospasm noted. In addition, there is no significant alveolar-arterial gradient. I will continue with the current nebulizer treatments and low-dose oral steroids for now. The patient also remains on her Revatio - for her pulmonary hypertension. I will also continue with the BiPAP at night. Inputs by Infectious Disease and Cardiology are reviewed. The clinical status of the patient is significantly improved overall. However, again, her future status/prognosis does remain poor. All are aware. I will discuss the above with Dr. Wheeler. Evgeny Briggs MD MTDD
[2018-01-07] MEDS: Budesonide 0.5 mg/2 ml Inhal Susp UD IH SCH ×2 (08:53→19:31)
[2018-01-07] MEDS: Clotrimazole/Betamethasone Cream(15 gm) TOP SCH (09:05)
[2018-01-07] MEDS: Enoxaparin 40 mg Syringe SC SCH (09:05)
[2018-01-07] MEDS: Sildenafil 20 MG TAB PO SCH ×2 (09:05→18:23)
[2018-01-07] MEDS: DEXILANT 60 MG PO SCH (09:06)
[2018-01-07] MEDS: Lactobacillus Acidophilus 500 MU Cap PO SCH ×2 (09:06→18:22)
[2018-01-07] MEDS: POLYETHYLENE GLYCOL 3350 17 GM/Dose PACKET PO SCH (09:06)
--- NOTE | 2018-01-07 09:50 | PN ---
DATE: 01/07/2018 SUBJECTIVE: The patient is in bed, in no acute distress, nontoxic. PHYSICAL EXAMINATION: VITAL SIGNS: Temperature is 98, blood pressure is 130/70, respiratory rate of 20, heart rate of 101. HEENT: Examination of HEENT is unremarkable. NECK: Supple. LUNGS: Have decreased breath sounds. HEART: Normal S1, S2. ABDOMEN: Soft, nontender. LABORATORY DATA: Laboratory examination reveals a white count of 5.8, hemoglobin of 9, platelets of 215. Chemistries reveals a BUN of 17, creatinine of 0.7, procalcitonin 0.05. Urinalysis is noted. Microbiology reveals the blood cultures are negative. Chest x-ray: Severe pulmonary venous congestion, background of COPD and interstitial lung disease. ASSESSMENT AND PLAN: An 82-year-old female with new-onset of systemic inflammatory response syndrome with transient hypotension and new onset of pruritic erythematous macular rash with status post severe sepsis, hypoxic respiratory failure and status post ventilator-dependent respiratory failure and chronic congestive heart failure, end-stage chronic obstructive pulmonary, pulmonary hypertension, coronary artery disease, dyslipidemia. Day #3 of meropenem and doxycycline, which antibiotics are on hold because of the rash. Rash is improved. The patient's repeat cultures are pending. Procalcitonin is normal. Currently, antibiotics on hold because of the rash and rash is improved. With a negative procalcitonin, feels comfortable and no pneumonia as Dr. Briggs is stated and we will check on the cultures. If negative, we will discontinue the antibiotics. Jose Eastman MD
--- NOTE | 2018-01-07 11:33 | CP.PCM.PCO ---
Addendum Addendum: I met with patient at bedside. She is alert and well-oriented to month, location , year and circumstances. She defers on any psychiatric management at this time , indicating that she "had no idea that psychiatry was contacted". She reports preference to focus on her medical issues, denying any acute psychiatric issues. She is not suicidal and denies thoughts to harm others. Her thought process is clear and organized. Delusions were not elicited. She does not present as an acute danger to herself or others. At this time psychiatry will respect patient's wishes and sign off.Patient aware she may request our f/u at any time if she should change her mind. 01/07/18 11:33
[2018-01-07 11:45] LABS: PREALBUMIN 13.3 mg/dL (17.6-36.0)
--- NOTE | 2018-01-07 13:46 | PN ---
DATE: 01/07/2018 CARDIOLOGY FOLLOWUP SUBJECTIVE: The patient is without shortness of breath. PHYSICAL EXAMINATION VITAL SIGNS: Blood pressure is 136/90, heart rate is in the 90s. NECK: Negative JVD. LUNGS: Without rales. HEART: Reveals S1 and S2. EXTREMITIES: Decreasing edema. LABORATORY DATA: Hemoglobin is 9.3. Chemistries: BUN and creatinine unremarkable. IMPRESSION: 1. Urinary tract infection. 2. Severe chronic obstructive pulmonary disease. 3. Resolution of hypotension with alteration of medications. 4. Pulmonary hypertension. 5. Coronary artery disease with a previous stent. PLAN: Given these findings, we will discontinue telemetry today. We will have the patient out of bed to chair. Harrison Echavarria MD
--- NOTE | 2018-01-07 15:35 | PN ---
DATE: SUBJECTIVE: Shahida Blackburn is seen on the floor. The sacral area has a very small stage II pressure ulcer, being treated appropriately. I will follow peripherally. Álvaro Holley MD
[2018-01-08] MEDS: Albuterol-Ipratrop 3 mg / 0.5 (3 ml) UD IH SCH ×4 (01:23→19:03)
[2018-01-08] MEDS: Budesonide 0.5 mg/2 ml Inhal Susp UD IH SCH ×2 (07:24→19:04)
[2018-01-08 08:25] LABS: HEMOGLOBIN 9.6 g/dL (12.0-16.0); MEAN CELL VOLUME 95.5 fl (80.0-105.0); MEAN CORPUSCULAR HEMOGLOBIN 30.7 pg (25.0-35.0); MEAN CORPUSCULAR HGB CONC 32.1 g/dl (31.0-37.0); MEAN PLATELET VOLUME 10.6 fl (7.0-11.0); RBC 3.13 10^6/uL (3.5-6.1); RED CELL DISTRIBUTION WIDTH 16.6 % (11.5-14.5)
[2018-01-08] MEDS: Insulin Reg-HIGH-Coverage SC SCH ×4 (08:26→22:04)
[2018-01-08 09:11] LABS: ALB/GLOB RATIO 1.2 (1.1-1.8); ALBUMIN 2.8 g/dL (3.0-4.8); ALT/SGPT 29 U/L (7-56); AST/SGOT 17 U/L (14-36); BLOOD UREA NITROGEN 14 mg/dL (7-21); CALCIUM 9.4 mg/dL (8.4-10.5); GFR AFRICAN-AMERICAN > 60; GFR NON-AFRICAN AMERICAN > 60
[2018-01-08] MEDS: Lactobacillus Acidophilus 500 MU Cap PO SCH ×2 (09:55→17:22)
[2018-01-08] MEDS: Enoxaparin 40 mg Syringe SC SCH (09:55)
[2018-01-08] MEDS: POLYETHYLENE GLYCOL 3350 17 GM/Dose PACKET PO SCH (09:55)
[2018-01-08] MEDS: Sildenafil 20 MG TAB PO SCH ×2 (09:56→17:22)
[2018-01-08] MEDS: DEXILANT 60 MG PO SCH (09:58)
[2018-01-08] MEDS: Clotrimazole/Betamethasone Cream(15 gm) TOP SCH ×2 (10:09→18:50)
--- NOTE | 2018-01-08 10:55 | PN ---
DATE: 01/08/2018 PULMONARY NOTE SUBJECTIVE: The patient appears comfortable this morning. She is not short of breath at rest. She remains weak. PHYSICAL EXAMINATION: VITAL SIGNS: Temperature is 98, pulse 91, respirations 18/20, blood pressure 148/68. Oxygen saturation on nasal cannula is 96%. HEENT: Normocephalic, atraumatic. No JVD. CARDIOVASCULAR: Systolic ejection murmur at the lower left sternal border. No S3 gallop. LUNGS: Decreased breath sounds at the bases. Very minimal rhonchi. No wheezing. EXTREMITIES: Positive for mild edema. No cyanosis or clubbing. Calves are nontender to palpation. GI: Abdomen is soft, nontender and nondistended. Bowel sounds are positive. SKIN: No acute rash. Positive sacral decubitus. NEUROLOGIC: Limited at the present time. IMPRESSION: 1. Resistant urinary tract infection. 2. End-stage chronic obstructive pulmonary disease. 3. Pulmonary hypertension. 4. Coronary artery disease. 5. Anemia. 6. Transient hypotension - resolved. PLAN: The patient appears comfortable this morning. She is not short of breath at rest. She is awake and alert. She does appear weak. I did discuss the case with the night nurse at length. The night nurse stated that the patient had a very good night. On physical exam, there is no significant bronchospasm noted. In addition, there is no significant alveolar-arterial gradient. I will continue with the current nebulizer treatments and low-dose oral steroids for now. The patient also remains on her Revatio - for the pulmonary hypertension. Clinical status of the patient is certainly improved - compared to earlier in the week. However, again, unfortunately, the future status/prognosis for this patient remains very poor. All are aware. I did discuss the above with Dr. Wheeler. Evgeny Briggs MD MTDD
--- NOTE | 2018-01-08 15:07 | PN ---
DATE: SUBJECTIVE: I saw her this morning. She is very upset on her bedside. She could not make it work. She is telling me that I am trapping her here and I am not letting her to speak to her children. I told her we will get the phone fixed. We got the phone fixed and she is talking to her children now. She is on aspirin, acidophilus, Doryx, DuoNebs, famotidine IV, Feosol, home meds, insulin, Lipitor, Lotrisone cream, Lovenox, Megace. She is eating better. Merrem is on hold at this time. MiraLax, Plavix, prednisone, Pulmicort, Revatio, Tylenol, Ultram, vitamin C, and Xanax. LABORATORY DATA: She has a 5 white count, 9.6 hemoglobin, 29.9 hematocrit with 198 platelets. She has a 141 sodium, potassium 3.9. BUN 40, creatinine 0.4. GFR is greater than 60. Sugar is 96. Calcium 9.4. Total bilirubin is 0.2, AST is 17, ALT is 29, alk phos 57, total protein is 5.2. She had yeast species in the urine. ASSESSMENT AND PLAN: She is being seen by Surgery, Psychiatry, Cardiology, Infectious Disease, Pulmonology. She has urinary tract infection, severe; chronic obstructive pulmonary disease; resolution of the hypotension; pulmonary hypertension, coronary artery disease with stent placement. Tying to get her out of bed to chair. We are trying physical therapy. I am hoping if she continues to improve, we can discharge her shortly. I will discuss this with the specialist and the family possibly tomorrow. If all works out, possible discharge tomorrow. Check her labs tomorrow. Nigel Wheeler DO MTDD
[2018-01-08] MEDS ORDERED: Alum-Mag Hydrox-Simethicone Susp (30 mL) PO SCH (17:02)
[2018-01-08] MEDS ORDERED: Alum-Mag Hydrox-Simethicone Susp (30 mL) PO PRN (20:51)
--- NOTE | 2018-01-09 00:21 | CP.PCM.PN ---
Subjective - Date & Time of Evaluation Date of Evaluation: 01/09/18 Time of Evaluation: 00:20 - Subjective Subjective: # 22 angiocath was inserted in left hand dorsum before midnight. Dx: Poor venous access. Objective - Vital Signs/Intake and Output Vital Signs (last 24 hours): Temp Pulse Resp BP Pulse Ox 98 F 91 H 20 148/68 96 01/08/18 08:08 01/08/18 23:46 01/08/18 08:08 01/08/18 08:08 01/08/18 08:08 Intake and Output: 01/08/18 01/09/18 18:59 06:59 Intake Total 960 Balance 960 - Medications Medications: Current Medications Acetaminophen (Tylenol 325mg Tab) 650 mg PO Q4H PRN PRN Reason: Pain, moderate (4-7) Last Admin: 01/08/18 09:55 Dose: 650 mg Al Hydrox/Mg Hydrox/Simethicone (Maalox Plus 30 Ml) 30 ml PO Q4 PRN PRN Reason: Indigestion / Heartburn Albuterol/Ipratropium (Duoneb 3 Mg/0.5 Mg (3 Ml) Ud) 3 ml IH [id number] [facility] Last Admin: 01/08/18 19:03 Dose: 3 ml Albuterol/Ipratropium (Duoneb 3 Mg/0.5 Mg (3 Ml) Ud) 3 ml IH Q2H PRN PRN Reason: Shortness of Breath Last Admin: 01/08/18 23:37 Dose: 3 ml Alprazolam (Xanax) 0.5 mg PO BID [facility] PRN Reason: Protocol Stop: 01/09/18 18:01 Last Admin: 01/08/18 17:22 Dose: 0.5 mg Ascorbic Acid (Vitamin C 500 Mg Tab) 500 mg PO DAILY [facility] Last Admin: 01/08/18 09:57 Dose: 500 mg Aspirin (Aspirin Chewable) 81 mg PO DAILY [facility] Last Admin: 01/08/18 09:56 Dose: 81 mg Atorvastatin Calcium (Lipitor) 10 mg PO DAILY [facility] Last Admin: 01/08/18 09:56 Dose: 10 mg Betamethasone/Clotrimazole (Lotrisone) 0 gm TOP BID [facility] Last Admin: 01/08/18 18:50 Dose: 1 applic Budesonide (Pulmicort Respules) 0.5 mg IH [id number] [facility] Last Admin: 01/08/18 19:04 Dose: 0.5 mg Clopidogrel Bisulfate (Plavix) 75 mg PO DAILY [facility] Last Admin: 01/08/18 09:56 Dose: 75 mg Enoxaparin Sodium (Lovenox) 40 mg SC DAILY [facility] PRN Reason: Protocol Last Admin: 01/08/18 09:55 Dose: 40 mg Ferrous Sulfate (Feosol) 324 mg PO TID [facility] Last Admin: 01/08/18 09:56 Dose: 324 mg Home Med (Home Med) 1 unit PO DAILY [facility] Last Admin: 01/08/18 09:58 Dose: 1 unit Famotidine 20 mg/ Amino Acids 1,002 mls @ 42 mls/hr IV .[id number] [facility] Last Admin: 01/07/18 17:36 Dose: 42 mls/hr Insulin Human Regular (Humulin R High) 0 units SC ACHS [facility] PRN Reason: Protocol Last Admin: 01/08/18 17:21 Dose: 2 units Lactobacillus Acidophilus (Bacid Acidophilus) 1 cap PO BID [facility] Last Admin: 01/08/18 17:22 Dose: 1 cap Megestrol Acetate (Megace) 40 mg PO DAILY [facility] Last Admin: 01/08/18 09:56 Dose: 40 mg Polyethylene Glycol (Miralax) 17 gm PO DAILY [facility] Last Admin: 01/08/18 09:55 Dose: 17 gm Prednisone (Prednisone Tab) 10 mg PO DAILY [facility] Last Admin: 01/08/18 17:23 Dose: 10 mg Sildenafil Citrate (Revatio) 20 mg PO BID [facility] Last Admin: 01/08/18 17:22 Dose: 20 mg Tramadol HCl (Ultram) 50 mg PO TID PRN PRN Reason: Pain, severe (8-10) Last Admin: 01/08/18 22:23 Dose: 50 mg - Labs Labs: 01/08/18 07:30 01/08/18 07:30 PT 11.1 SECONDS (9.4-12.5) 01/02/18 14:10 INR 0.97 (0.93-1.08) 01/02/18 14:10 APTT 31.7 Seconds (25.1-36.5) 01/02/18 14:10
--- NOTE | 2018-01-09 03:56 | PN ---
DATE: SUBJECTIVE: The patient was seen earlier this morning, in 572, bed 1. She feels better. No fevers. No chills. Less shortness of breath. PHYSICAL EXAMINATION: VITAL SIGNS: Temperature is 98, blood pressure is 140/60, respiratory rate of 20, heart rate of 100. HEENT: Unremarkable. NECK: Supple. LUNGS: Have decreased breath sounds. HEART: Normal S1 and S2. ABDOMEN: Soft, nontender. LABORATORY DATA: White count of 5000, hemoglobin of 9, platelets of 198. BUN of 14, creatinine of 0.4. Urinalysis is noted. Microbiology reveals blood cultures are negative. ASSESSMENT AND PLAN: This is an 82-year-old female with new onset of systemic inflammatory response syndrome, with a transient hypotension, new pruritic rash, maculopapular rash, status post severe sepsis, hypoxic respiratory failure, status post ventilatory-dependent respiratory failure, chronic congestive heart failure, end-stage obstructive lung disease, pulmonary hypertension, coronary artery disease, dyslipidemia; day #4 of meropenem and doxycycline, antibiotics were on hold because of rash. Patient is doing much better, with negative cultures and negative procalcitonin. We will discontinue antibiotics and no further antibiotics needed. Jose Eastman MD
[2018-01-09] MEDS: Albuterol-Ipratrop 3 mg / 0.5 (3 ml) UD IH SCH ×4 (04:20→19:45)
[2018-01-09] MEDS: Budesonide 0.5 mg/2 ml Inhal Susp UD IH SCH ×2 (07:14→19:44)
[2018-01-09] MEDS: DEXILANT 60 MG PO SCH (09:15)
[2018-01-09] MEDS: Sildenafil 20 MG TAB PO SCH ×2 (09:15→17:13)
[2018-01-09] MEDS: Enoxaparin 40 mg Syringe SC SCH (09:15)
[2018-01-09] MEDS: Lactobacillus Acidophilus 500 MU Cap PO SCH ×2 (09:15→17:13)
[2018-01-09] MEDS: POLYETHYLENE GLYCOL 3350 17 GM/Dose PACKET PO SCH (09:15)
[2018-01-09] MEDS: Insulin Reg-HIGH-Coverage SC SCH ×3 (09:17→17:15)
[2018-01-09] MEDS: Clotrimazole/Betamethasone Cream(15 gm) TOP SCH ×2 (09:19→17:17)
--- NOTE | 2018-01-09 10:32 | PN ---
DATE: 01/09/2018 PULMONARY NOTE SUBJECTIVE: The patient appears very comfortable this morning. She is not short of breath at rest. PHYSICAL EXAMINATION VITAL SIGNS: Last temperature recorded is 99, pulse this morning is approximately 88, respiratory rate 18/20, blood pressure 127/60. Oxygen saturation on nasal cannula is 97%. HEENT: Normocephalic, atraumatic. No JVD. CARDIOVASCULAR: Systolic ejection murmur at the lower left sternal border. No S3 gallop. LUNGS: Decreased breath sounds at the bases. Very minimal rhonchi. No wheezing. EXTREMITIES: Positive for edema. No cyanosis, no clubbing. Calves are nontender to palpation. GI: Abdomen is soft, nontender and nondistended. Bowel sounds are positive. SKIN: No acute rash. Positive sacral decubitus. NEUROLOGIC: Limited at the present time. IMPRESSION: 1. Resistant urinary tract infection. 2. End-stage chronic obstructive pulmonary disease. 3. Pulmonary hypertension. 4. Coronary artery disease. 5. Anemia. 6. Transient hypotension - resolved. PLAN: The patient appears very comfortable this morning. She is not short of breath at rest. She is awake and alert. I did discuss the case with the night nurse at length. The night nurse stated that the patient had a fairly uneventful night. On physical exam, there is no significant bronchospasm noted. In addition, there is no significant alveolar-arterial gradient. I will continue with the current pulmonary medications and low-dose oral steroids for now. The patient also remains on her Revatio - for the pulmonary hypertension. Continue ID evaluation. The clinical status of the patient is significantly improved overall. However, again, unfortunately, the future status/prognosis for this patient remains very poor. All are aware. I will discuss the above with Dr. Wheeler. Evgeny Briggs MD MTDOfelia
--- NOTE | 2018-01-09 14:02 | PN ---
DATE: SUBJECTIVE: She is doing better today. She feels well. No chest pain or shortness of breath. She is smiling. She is happy. She is actually eating better when I stopped the Clinimix after this bag. Overall, she is in good spirits. Awaiting for physical therapy to commence. See what they recommend. She is being seen by numerous physicians, Pulmonary, Wound Care nurse, Infectious Disease, ENT, Surgery, Cardiology, Neurology, Psychiatry. PHYSICAL EXAMINATION: VITAL SIGNS: She has a 99 temperature, 95 pulse, 127/60 blood pressure, 24 respiratory rate, 97% O2 sat on 2 L nasal cannula. HEENT: Head is atraumatic and normocephalic. HEART: Regular rate. LUNGS: Clear to auscultation. ABDOMEN: Soft. EXTREMITIES: No edema. LABORATORY DATA: She has a white count of 5, hemoglobin 9.6, hematocrit 29.9, platelets of 198. She has a 141 sodium, potassium 3.9, BUN 40, creatinine 0.4, GFR is greater than 60, last sugar is 110, calcium is 9.4, total bili is 0.28, AST is 17, ALT is 29, alkaline phosphatase 57. ASSESSMENT AND PLAN: She is having a regular day today. We will see how she does with physical therapy. I hope we will discharge her when they get the oxygen container set up for home what they need for the BiPAP. Nigel Wheeler DO
--- NOTE | 2018-01-09 18:17 | CP.PCM.PN ---
Subjective - Date & Time of Evaluation Date of Evaluation: 01/09/18 Time of Evaluation: 12:40 - Subjective Subjective: Afebrile, not in distress. Objective - Vital Signs/Intake and Output Vital Signs (last 24 hours): Temp Pulse Resp BP Pulse Ox 99 F 95 H 24 127/60 97 01/09/18 07:57 01/09/18 07:57 01/09/18 07:57 01/09/18 07:57 01/09/18 07:57 Intake and Output: 01/09/18 01/09/18 06:59 18:59 Intake Total 120 Output Total 400 Balance -280 - Medications Medications: Current Medications Acetaminophen (Tylenol 325mg Tab) 650 mg PO Q4H PRN PRN Reason: Pain, moderate (4-7) Last Admin: 01/08/18 09:55 Dose: 650 mg Al Hydrox/Mg Hydrox/Simethicone (Maalox Plus 30 Ml) 30 ml PO Q4 PRN PRN Reason: Indigestion / Heartburn Albuterol/Ipratropium (Duoneb 3 Mg/0.5 Mg (3 Ml) Ud) 3 ml IH [id number] [facility] Last Admin: 01/09/18 07:14 Dose: 3 ml Albuterol/Ipratropium (Duoneb 3 Mg/0.5 Mg (3 Ml) Ud) 3 ml IH Q2H PRN PRN Reason: Shortness of Breath Last Admin: 01/08/18 23:37 Dose: 3 ml Alprazolam (Xanax) 0.5 mg PO BID [facility] PRN Reason: Protocol Stop: 01/09/18 18:01 Last Admin: 01/08/18 17:22 Dose: 0.5 mg Ascorbic Acid (Vitamin C 500 Mg Tab) 500 mg PO DAILY [facility] Last Admin: 01/08/18 09:57 Dose: 500 mg Aspirin (Aspirin Chewable) 81 mg PO DAILY [facility] Last Admin: 01/08/18 09:56 Dose: 81 mg Atorvastatin Calcium (Lipitor) 10 mg PO DAILY [facility] Last Admin: 01/08/18 09:56 Dose: 10 mg Betamethasone/Clotrimazole (Lotrisone) 0 gm TOP BID [facility] Last Admin: 01/08/18 18:50 Dose: 1 applic Budesonide (Pulmicort Respules) 0.5 mg IH [id number] [facility] Last Admin: 01/09/18 07:14 Dose: 0.5 mg Clopidogrel Bisulfate (Plavix) 75 mg PO DAILY [facility] Last Admin: 01/08/18 09:56 Dose: 75 mg Enoxaparin Sodium (Lovenox) 40 mg SC DAILY [facility] PRN Reason: Protocol Last Admin: 01/08/18 09:55 Dose: 40 mg Ferrous Sulfate (Feosol) 324 mg PO TID [facility] Last Admin: 01/08/18 09:56 Dose: 324 mg Home Med (Home Med) 1 unit PO DAILY [facility] Last Admin: 01/08/18 09:58 Dose: 1 unit Famotidine 20 mg/ Amino Acids 1,002 mls @ 42 mls/hr IV .[id number] [facility] Last Admin: 01/07/18 17:36 Dose: 42 mls/hr Insulin Human Regular (Humulin R High) 0 units SC ACHS [facility] PRN Reason: Protocol Last Admin: 01/08/18 22:04 Dose: Not Given Lactobacillus Acidophilus (Bacid Acidophilus) 1 cap PO BID [facility] Last Admin: 01/08/18 17:22 Dose: 1 cap Megestrol Acetate (Megace) 40 mg PO DAILY [facility] Last Admin: 01/08/18 09:56 Dose: 40 mg Polyethylene Glycol (Miralax) 17 gm PO DAILY [facility] Last Admin: 01/08/18 09:55 Dose: 17 gm Prednisone (Prednisone Tab) 10 mg PO DAILY [facility] Last Admin: 01/08/18 17:23 Dose: 10 mg Sildenafil Citrate (Revatio) 20 mg PO BID [facility] Last Admin: 01/08/18 17:22 Dose: 20 mg Tramadol HCl (Ultram) 50 mg PO TID PRN PRN Reason: Pain, severe (8-10) Last Admin: 01/08/18 22:23 Dose: 50 mg - Labs Labs: 01/08/18 07:30 01/08/18 07:30 PT 11.1 SECONDS (9.4-12.5) 01/02/18 14:10 INR 0.97 (0.93-1.08) 01/02/18 14:10 APTT 31.7 Seconds (25.1-36.5) 01/02/18 14:10 - Constitutional Appears: Chronically Ill - Head Exam Head Exam: NORMAL INSPECTION - Respiratory Exam Respiratory Exam: Decreased Breath Sounds - Cardiovascular Exam Cardiovascular Exam: +S1, +S2 - GI/Abdominal Exam GI & Abdominal Exam: Soft. absent: Tenderness Assessment and Plan - Assessment and Plan (Free Text) Plan: Assessment new onset SIRS with transient hypotension, currently with no evidence of sepsis or infection new onset pruritic erythematous macular rash on the anterior and posterior trunk , R/O drug-induced S/P systemic inflammatory response syndrome, S/P severe sepsis with hypoxic respiratory failure S/P VDRF, S/P HCAP, new onset, right lower lobe on top of acute bronchitis chronic CHF end-stage COPD pulmonary HTN CAD dyslipidemia Plan cultures have been negative - will continue to monitor the patient off antibiotics since she is at risk for nosocomial infections overall prognosis is poor
[2018-01-10] MEDS: Albuterol-Ipratrop 3 mg / 0.5 (3 ml) UD IH SCH ×3 (01:40→13:13)
[2018-01-10 07:24] LABS: HEMOGLOBIN 9.3 g/dL (12.0-16.0); MEAN CELL VOLUME 95.6 fl (80.0-105.0); MEAN CORPUSCULAR HEMOGLOBIN 29.5 pg (25.0-35.0); MEAN CORPUSCULAR HGB CONC 30.9 g/dl (31.0-37.0); MEAN PLATELET VOLUME 10.4 fl (7.0-11.0); RBC 3.15 10^6/uL (3.5-6.1); RED CELL DISTRIBUTION WIDTH 16.9 % (11.5-14.5); WHITE BLOOD COUNT 5.5 10^3/ul (4.5-11.0)
[2018-01-10] MEDS: Budesonide 0.5 mg/2 ml Inhal Susp UD IH SCH (07:32)
[2018-01-10 07:46] LABS: ALB/GLOB RATIO 1.2 (1.1-1.8); ALBUMIN 2.9 g/dL (3.0-4.8); ALT/SGPT 27 U/L (7-56); AST/SGOT 19 U/L (14-36); BLOOD UREA NITROGEN 30 mg/dL (7-21); CALCIUM 9.4 mg/dL (8.4-10.5); GFR AFRICAN-AMERICAN > 60; GFR NON-AFRICAN AMERICAN > 60
[2018-01-10 08:16] VITALS: PULSE 98; TEMP 98.1; O2SAT 100
--- NOTE | 2018-01-10 09:32 | PN ---
DATE: 01/10/2018 PULMONARY NOTE SUBJECTIVE: The patient appears very comfortable this morning. She is not short of breath at rest. PHYSICAL EXAMINATION: VITAL SIGNS: Last temperature recorded is 98.1, pulse is approximately 88, respiratory rate 18, blood pressure 142/66. Oxygen saturation on nasal cannula is 100%. HEENT: Normocephalic, atraumatic. No JVD. CARDIOVASCULAR: Systolic ejection murmur at the lower left sternal border. No S3 gallop. LUNGS: Decreased breath sounds at the bases. Very minimal rhonchi. No wheezing. EXTREMITIES: Positive for edema. No cyanosis. No clubbing. Calves are nontender to palpation. GI: Abdomen is soft, nontender and nondistended. Bowel sounds are positive. SKIN: No acute rash. Positive sacral decubitus. NEUROLOGIC: Limited at the present time. IMPRESSION: 1. Resistant urinary tract infection. 2. End-stage chronic obstructive pulmonary disease. 3. Pulmonary hypertension. 4. Coronary artery disease. 5. Anemia. 6. Transient hypotension - resolved. PLAN: The patient appears very comfortable this morning. She is not short of breath at rest. She is awake and alert. She does state to feeling much better overall. I did discuss the case with the night nurse at length. The night nurse stated that the patient had an uneventful night. On physical exam, there is no significant bronchospasm noted. In addition, the oxygen saturation on nasal cannula is now 100%. I will continue with the current pulmonary medications for now. The patient also remains on the Revatio - for her pulmonary hypertension. Infectious Disease input is also noted. The patient is off antibiotic therapy. There are no temperatures noted. There is no leukocytosis. Clinical status of the patient is significantly improved overall. However, unfortunately, the future status/prognosis for this deisy patient remains poor. All are aware. I will discuss the above with Dr. Wheeler. Evgeny Briggs MD MTDOfelia
[2018-01-10] MEDS: Insulin Reg-HIGH-Coverage SC SCH ×3 (10:28→17:12)
[2018-01-10] MEDS: DEXILANT 60 MG PO SCH (10:36)
[2018-01-10] MEDS: Enoxaparin 40 mg Syringe SC SCH (10:36)
[2018-01-10] MEDS: POLYETHYLENE GLYCOL 3350 17 GM/Dose PACKET PO SCH ×2 (10:37→10:49)
[2018-01-10] MEDS: Sildenafil 20 MG TAB PO SCH ×2 (10:41→17:12)
[2018-01-10] MEDS: Lactobacillus Acidophilus 500 MU Cap PO SCH ×2 (10:41→17:12)
[2018-01-10] MEDS: Clotrimazole/Betamethasone Cream(15 gm) TOP SCH (10:47)
--- NOTE | 2018-01-10 16:51 | PN ---
DATE: 01/10/2018 SUBJECTIVE: SUBJECTIVE: The patient is lying in bed without shortness of breath. PHYSICAL EXAMINATION: VITAL SIGNS: Blood pressure is 142/66, heart rates in the 90s. NECK: Negative JVD. LUNGS: Decreased breath sounds. No rales noted. HEART: Reveal S1, S2. EXTREMITIES: Without edema. LABORATORY DATA: Include a hemoglobin of 9.3. Chemistries: BUN and creatinine unremarkable. Glucose is 96. IMPRESSION: 1. Urinary tract infection. 2. Severe chronic obstructive pulmonary disease. 3. Pulmonary hypertension. 4. Coronary artery disease. 5. Stable angina. Given these findings, antibiotics is still being manipulated to address resistant UTI. The patient's cardiac status is relatively stable. Harrison Echavarria MD
[2018-01-10 17:24] VITALS: BP 128/76; RESP 20
--- NOTE | 2018-01-10 23:33 | PN ---
DATE: 01/10/2018 SUBJECTIVE: The patient is in bed, in no acute distress. Patient was seen earlier this morning in 572, bed 1. No fevers. No chills. OBJECTIVE: VITAL SIGNS: Temperature 98, blood pressure is 120/70, respiratory rate is 16. HEENT: Unremarkable. NECK: Supple. LUNGS: Have decreased breath sounds. HEART: Normal S1, S2. ABDOMEN: Soft, nontender. LABORATORY EXAMINATION: Reveals the white count of 5.5, hemoglobin of 9, platelets of 205. Chemistries reveal BUN of 30, creatinine of 0.6. Urinalysis is noted. Microbiology is noted. ASSESSMENT AND PLAN: This is an 82-year-old female who was seen earlier this morning, admitted with a new rash, drug-induced; status post systemic inflammatory response syndrome; status post severe sepsis; hypoxic respiratory failure; status post ventilatory-dependent respiratory failure; status post healthcare-associated pneumonia, new onset in right lower lobe and acute bronchitis; chronic congestive heart failure; end-stage chronic obstructive pulmonary disease. Cultures negative. Patient has pulmonary hypertension, coronary artery disease and dyslipidemia. Off of antibiotics. She is at risk for developing nosocomial infections. Jose Eastman MD
--- NOTE | 2018-01-11 08:51 | DS ---
HISTORY OF PRESENT ILLNESS: I discussed at length with Dr. Briggs, childcare attendant. He said she can go either to her home or to subacute rehab. She is on aspirin, Bacid, DuoNeb, Feosol. Home medicines, insulin, Lipitor,Lotrisone, Lovenox, MiraLax, Megace, Plavix, prednisone, Pulmicort, Revatio, Tylenol, Ultram, and vitamin C; the same medication she came in. PHYSICAL EXAMINATION: VITAL SIGNS: She has 98.1 temp, 98 pulse, 142/66 blood pressure, 25 respiratory rate, 100% O2 sat. HEENT: Head is atraumatic, normocephalic. GENERAL: She is alert and oriented. She wants to go home. HEART: Regular rate. LUNGS: Decreased breath sounds, but clear. ABDOMEN: Soft. EXTREMITIES: No edema, but she is weak. LABORATORY DATA: She has a 5.5 white count, 9.3 hemoglobin, 30.1 hematocrit with 205 platelets. She has a 137 sodium, potassium is 4.6, BUN 30, creatinine 0.6, GFR is greater than 60, sugar is 96, calcium 9.4. Total bili is 0.2, AST is 19, ALT is 27, alk phos is 30, total protein is 5.2. PLAN: I believe to discharge her. She was seen by multiple physicians; Infectious Disease, Pulmonary house doctor, Surgery, Psychiatry. Not in any distress. She is afebrile. Cultures are all negative. Off the antibiotics. We are going to try and discharge her today, which is the plan. We will get the public health social worker and case management involved. Nigel Wheeler DO JOSEPH
[2018-01-11] MEDS ORDERED: predniSONE 5 mg/5 mL Oral Soln UD PO SCH (10:00)
== END 2018-01-10 18:26 | DRG 569 ==
LOC: ED 12:35 → ERH 15:11 → 5RSO 17:01 → 2RNO 01-05 19:00 → 5RSO 01-07 16:24
PROVIDERS: ADMIT Family Medicine; ATTEND Family Medicine
PROC: 5A09357 Assistance with Respiratory Ventilation, Less than 24 Consecutive Hours, Continuous Positive Airway Pressure (ICD-10-PCS; principal; 2018-01-05)
DX: N39.0 Urinary tract infection, site not specified (principal); L89.152 Pressure ulcer of sacral region, stage 2; J96.11 Chronic respiratory failure with hypoxia; R65.10 Systemic inflammatory response syndrome (SIRS) of non-infectious origin without acute organ dysfunction; Z99.11 Dependence on respirator [ventilator] status; E11.36 Type 2 diabetes mellitus with diabetic cataract; I11.0 Hypertensive heart disease with heart failure; I50.9 Heart failure, unspecified; J44.0 Chronic obstructive pulmonary disease with (acute) lower respiratory infection; J84.9 Interstitial pulmonary disease, unspecified; K90.0 Celiac disease; D64.9 Anemia, unspecified; E78.00 Pure hypercholesterolemia, unspecified; E78.5 Hyperlipidemia, unspecified; F41.0 Panic disorder [episodic paroxysmal anxiety]; H61.23 Impacted cerumen, bilateral; H91.10 Presbycusis, unspecified ear; H93.19 Tinnitus, unspecified ear; I25.118 Atherosclerotic heart disease of native coronary artery with other forms of angina pectoris; I27.20 Pulmonary hypertension, unspecified; J20.9 Acute bronchitis, unspecified; K21.9 Gastro-esophageal reflux disease without esophagitis; K42.9 Umbilical hernia without obstruction or gangrene; K57.92 Diverticulitis of intestine, part unspecified, without perforation or abscess without bleeding; M19.90 Unspecified osteoarthritis, unspecified site; M81.0 Age-related osteoporosis without current pathological fracture; Z16.21 Resistance to vancomycin; Z79.02 Long term (current) use of antithrombotics/antiplatelets; Z79.82 Long term (current) use of aspirin; Z79.4 Long term (current) use of insulin; Z82.49 Family history of ischemic heart disease and other diseases of the circulatory system; Z83.3 Family history of diabetes mellitus; Z87.01 Personal history of pneumonia (recurrent); Z87.440 Personal history of urinary (tract) infections; Z87.891 Personal history of nicotine dependence; Z90.49 Acquired absence of other specified parts of digestive tract; Z91.81 History of falling; Z95.5 Presence of coronary angioplasty implant and graft; Z99.81 Dependence on supplemental oxygen; Z88.1 Allergy status to other antibiotic agents; Z88.5 Allergy status to narcotic agent; R40.2412 Glasgow coma scale score 13-15, at arrival to emergency department; I95.9 Hypotension, unspecified; B95.2 Enterococcus as the cause of diseases classified elsewhere

== ENCOUNTER 2018-01-29 10:41 | Emergency (ER) | payer MEDICARE, MEDICAID ==
[2018-01-29 10:45] VITALS: BMI 24.9
[2018-01-29 10:52] VITALS: RESP 18
[2018-01-29] MEDS ORDERED: Albuterol-Ipratrop 3 mg / 0.5 (3 ml) UD IH STA (11:05)
--- NOTE | 2018-01-29 11:15 | ED PDOC ---
Arrival/HPI - General Chief Complaint: Back Pain Time Seen by Provider: 01/29/18 10:51 Historian: Patient, Family (Son) - History of Present Illness Narrative History of Present Illness (Text): 01/29/18 11:10 Pt is an 82 year old female whose PMH includes CHF, [id number], and diabetes , BIBA from [facility], presents to the emergency department for severe low back pain who was assessed by PMD Dr. Wheeler and advised [place] [facility] Patient also reports mild dyspnea and general malaise. She has mild right LE edema and bilateral leg tenderness but reports this is her baseline. Pt was admitted -01/09/18 for SIRS and hypotension. Denies trauma, chest pain, nausea, vomiting , diarrhea, change in appetite, fever, chills, neck pain, change in urine or bowel. Pt reports the back pain is where the kyphoplasty was done prior. Time/Duration: 24 hours Symptom Onset: Gradual Symptom Course: Unchanged Quality: Aching, Pressure Severity Level: 5 Activities at Onset: Rest Context: Home Past Medical History - Provider Review Nursing Documentation Reviewed: Yes - Travel History Have you recently traveled outside [place] w/in the past 3 mons?: No - Past History Past History: No Previous - Infectious Disease Hx of Infectious Diseases: None - Tetanus Immunization Tetanus Immunization: Unknown - Cardiac Hx Cardiac Disorders: Yes Hx Congestive Heart Failure: Yes - Pulmonary Hx Respiratory Disorders: Yes Hx Chronic Obstructive Pulmonary Disease (COPD): Yes - Neurological Hx Neurological Disorder: Yes Hx Dizziness: Yes - HEENT Hx HEENT Disorder: Yes Hx Cataracts: Yes - Renal Hx Renal Disorder: Yes - Endocrine/Metabolic Hx Endocrine Disorders: Yes Hx Diabetes Mellitus Type 2: Yes - Hematological/Oncological Hx Blood Disorders: Yes Hx Anemia: Yes (blood transfusion) Hx Shingles: No - Integumentary Hx Dermatological Disorder: Yes - Musculoskeletal/Rheumatological Hx Musculoskeletal Disorders: Yes Hx Falls: Yes - Gastrointestinal Hx Gastrointestinal Disorders: Yes Hx Diverticulitis: Yes Hx Gall Bladder Disease: Yes (CHLOECYSTECTOMY) Hx Gastroesophageal Reflux: Yes Other/Comment: celiac disease, umbilical hernia - Genitourinary/Gynecological Hx Genitourinary Disorders: Yes Hx Urinary Tract Infection: Yes - Psychiatric Hx Psychophysiologic Disorder: Yes Hx Anxiety: Yes Hx Panic Disorder: Yes Hx Substance Use: No - Surgical History Hx Appendectomy: Yes Hx Cardiac Catheterization: Yes Hx Cholecystectomy: Yes Hx Coronary Stent: Yes (x2 ptca) Other/Comment: t12 kyphoplasty - Anesthesia Hx Anesthesia: Yes Hx Anesthesia Reactions: No Hx Malignant Hyperthermia: No - Suicidal Assessment Feels Threatened In Home Enviroment: No Family/Social History - Physician Review Nursing Documentation Reviewed: Yes Family/Social History: Unknown Family HX Smoking Status: Former Smoker Hx Alcohol Use: No Hx Substance Use: No Hx Substance Use Treatment: No Allergies/Home Meds Allergies/Adverse Reactions: Allergies morphine Allergy (Verified 01/29/18 10:44) VOMITING codeine Adverse Reaction (Verified 01/29/18 10:44) VOMITING hydromorphone HCl [From Dilaudid] Adverse Reaction (Verified 01/29/18 10:44) VOMITING MYOCINS Adverse Reaction (Uncoded 01/29/18 10:44) VOMITING Home Medications: Home Meds Medication Instructions Recorded Confirmed Atorvastatin Calcium 10 mg PO DAILY 12/12/17 01/29/18 Dexlansoprazole [Dexilant] 1 tab PO DAILY 01/29/18 01/29/18 Docusate [Colace] 2 cap PO Q12 PRN 01/29/18 01/29/18 Silver Sulfadiazine 1% [Silvadene 1 apful TOP PRN PRN 01/29/18 01/29/18 1%] Zinc Sulfate [Zinc-220] 1 cap PO DAILY 01/29/18 01/29/18 Review of Systems - Review of Systems Constitutional: Normal, Fatigue Eyes: Normal ENT: Normal Respiratory: Normal, SOB (mild) Cardiovascular: Normal Gastrointestinal: Normal Genitourinary Female: Normal Musculoskeletal: Normal, Back Pain (thoracic and lumbar). absent: Neck Pain Skin: Normal Neurological: Normal Endocrine: Normal Hemo/Lymphatic: Normal Psychiatric: Normal Physical Exam - Physical Exam Physical Exam Limitations: Other (mild dementia) Vital Signs Reviewed: Yes Vital Signs Temp Pulse Resp BP Pulse Ox 01/29/18 15:06 98.0 F 71 18 116/64 97 01/29/18 13:52 79 18 118/58 L 98 01/29/18 12:23 86 18 116/52 L 98 01/29/18 10:52 97.7 F 91 H 18 114/48 L 98 Temperature: Afebrile Blood Pressure: Normal Pulse: Regular Respiratory Rate: Normal Appearance: Positive for: Well-Appearing, Non-Toxic, Comfortable Pain Distress: Moderate Mental Status: Positive for: Alert and Oriented X 3 - Systems Exam Head: Present: Atraumatic, Normocephalic Pupils: Present: PERRL Extroacular Muscles: Present: EOMI Conjunctiva: Present: Normal Mouth: Present: Moist Mucous Membranes Neck: Present: Normal Range of Motion. No: Meningeal Signs, MIDLINE TENDERNESS Respiratory/Chest: Present: Clear to Auscultation, Good Air Exchange. No: Respiratory Distress, Accessory Muscle Use Cardiovascular: Present: Regular Rate and Rhythm, Normal S1, S2. No: Murmurs, Irregular Rhythm, Tachycardic, Bradycardic, Rub, Gallop Abdomen: Present: Normal Bowel Sounds, Hernias (periumbilical ). No: Tenderness , Distention, Peritoneal Signs, Rebound, Guarding, McBurney's Point Tender, Rovsing's Sign Present Back: Present: Normal Inspection, Paraspinal Tenderness (thoracic and lumbar region). No: CVA Tenderness Upper Extremity: Present: Normal Inspection. No: Cyanosis, Edema Lower Extremity: Present: Normal Inspection, NORMAL PULSES, Normal ROM, Tenderness, Swelling, Neurovascularly Intact, Capillary Refill < 2 s. No: Edema , Verena's Sign, Temperature Abnormalties Neurological: Present: GCS=15, CN II-XII Intact, Speech Normal, Normal Sensory Function, Memory Normal (mild dementia) Skin: Present: Warm, Dry, Normal Color. No: Rashes Psychiatric: Present: Alert, Oriented x 3, Normal Insight, Normal Concentration Medical Decision Making ED Course and Treatment: 01/29/18 11:16 Impression Pt is an 82 year old female whose PMH includes CHF, COPD, and diabetes, who presents to the emergency department for severe low back pain who was assessed today by PMD Dr. Wheeler and advised to go [place] [facility] Pt had kyphoplasty recently. Plan labs ecg, cxr LS XR to assess kyphoplasty Duoneb tx for COPD and O2 prn assess and dispo Progress Note Pt is reportedly difficult (uncooperative) to obtain blood draw and urine from; straight cath for urine XR of thoracic and lumbar spine to assess kyphoplasty 01/29/18 12:03 XR reveals no acute compression fractures; kyphoplasty appreciated Pt O2 saturation along with other vital signs stable Contacted Dr Wheeler to update on labs and status who advised discharge Discussed findings and recommendations for acare with family; pt has BiPap unit where she resides that should be used; Son states that settings are 'off' and needs adjusting; advised to contact job setter Family awaited as transport called and pt picked up to return to [facility] - Lab Interpretations Microbiology Results: Microbiology Results 01/29/18 12:30 Urine,Clean Catch Urine Culture - Preliminary Gram Negative Rei 01/29/18 12:10 Blood-Venous Blood Culture - Preliminary NO GROWTH AFTER 24 HOURS 01/29/18 11:45 Blood-Venous Blood Culture - Preliminary NO GROWTH AFTER 24 HOURS Lab Results: 01/29/18 12:48 01/29/18 11:45 Lab Results 01/29/18 13:35: PT 12.3, INR 1.08, APTT 22.3 L 01/29/18 12:48: WBC 8.5 D, RBC 3.80, Hgb 11.8 L D, Hct 36.7, MCV 96.6, MCH 31.1 , MCHC 32.2, RDW 15.9 H, Plt Count 185, MPV 11.5 H, Gran % 75.6 H, Lymph % (Auto ) 11.5 L, Gilliam % (Auto) 8.1 H, Eos % (Auto) 4.3, Baso % (Auto) 0.5, Gran # 6.41 , Lymph # (Auto) 1.0 L, Gilliam # (Auto) 0.7 H, Eos # (Auto) 0.4, Baso # (Auto) 0.04 01/29/18 12:20: Urine Color Yellow, Urine Appearance Sl cloudy, Urine pH 6.0, Ur Specific Luck 1.020, Urine Protein Negative, Urine Glucose (UA) Negative, Urine Ketones Negative, Urine Blood Negative, Urine Nitrate Negative, Urine Bilirubin Negative, Urine Urobilinogen 1.0 H, Ur Leukocyte Esterase Trace H, Urine RBC 0 - 2, Urine WBC 2 - 5, Ur Epithelial Cells 0 - 2, Urine Bacteria Few 01/29/18 11:45: Sodium 142, Chloride 102, Potassium 4.2, Carbon Dioxide 32, Anion Gap 12, BUN 25 H, Creatinine 0.6 L, Est GFR ( Amer) > 60, Est GFR ( Non-Af Amer) > 60, Random Glucose 87, Calcium 9.4, Magnesium 1.8, Lactate Dehydrogenase 346, Total Creatine Kinase 40, Troponin I < 0.01, NT-Pro-B Natriuret Pep 186 01/29/18 11:45: pO2 42, VBG pH 7.34, VBG pCO2 71.0 H*, VBG HCO3 38.3 H, VBG Total CO2 40.5 H, VBG O2 Sat (Calc) 78.2 H, VBG Base Excess 9.6 H, VBG Potassium 4.6, Sodium 139.0, Chloride 103.0, Glucose 87, Lactate 0.8, FiO2 21.0 , Venous Blood Potassium 4.6 Interpretation: No sign. chg./baseline - RAD Interpretation Narrative RAD Interpretations (Text): 01/29/18 14:38 Thoracic Spine BONES: Kyphoplasty cement again seen within chronic anterior wedge compression fracture of the T12 segment. Minimal chronic appearing anterior stature loss of a few upper/mid thoracic segments. . No acute compression fracture seen. DISC SPACES: Multilevel degenerative spondylosis. Changes include varying degrees of disc space narrowing and endplate eburnation and anterolateral osteophyte formation. SOFT TISSUES: Paraspinal soft tissues appear grossly unremarkable so far as can be seen. OTHER FINDINGS: Metallic clips right upper quadrant gliotic consistent prior cholecystectomy IMPRESSION: Kyphoplasty cement again seen within a chronic anterior wedge compression fracture of the T12 segment. Minimal chronic appearing anterior stature loss of a few upper/mid thoracic segments. . No acute compression fracture seen. Radiographs of the Lumbar Spine. HISTORY: Back pain COMPARISON: No prior. FINDINGS: BONES: Radiopaque kyphoplasty cement is present within a of chronic anterior wedge compression fracture of the T12 segment. Mild multilevel chronic fish-mouth endplate deformities are also seen throughout. . . Diffuse demineralization DISC SPACES: Multilevel degenerative spondylosis. Changes include varying degrees of mild posterior disc space narrowing with endplate eburnation and tiny anterolateral as well as small posterior osteophyte formation. Facets mildly hypertrophic L5- S1 through the L1-L2 levels in decreasing order of severity OTHER FINDINGS: None. IMPRESSION: Kyphoplasty cement present within a chronic anterior wedge compression fracture of the T12 segment minor multilevel chronic fish-mouth endplate deformities are seen as above. Diffuse demineralization. Radiology Orders: 01/29/18 11:06 CHEST PORTABLE [RAD] Stat 01/29/18 12:02 LS SPINE AP/LAT [RAD] Stat 01/29/18 12:03 THORACIC SPINE [DORSAL (THORACIC) SPINE] [RAD] Stat - Medication Orders Current Medication Orders: Discontinued Medications Albuterol/Ipratropium (Duoneb 3 Mg/0.5 Mg (3 Ml) Ud) 3 ml IH STAT STA Stop: 01/29/18 11:06 Last Admin: 01/29/18 12:02 Dose: 3 ml Tramadol HCl (Ultram) 50 mg PO STAT STA Stop: 01/29/18 15:27 Last Admin: 01/29/18 15:43 Dose: 50 mg MAR Pain Assessment Document 01/29/18 15:43 EQ (Rec: 01/29/18 15:43 EQ [id number]) Pain Reassessment Is this a pain reassessment? No Sleep Is patient sleeping during reassessment? No Presence of Pain Presence of Pain Yes Disposition/Present on Arrival - Present on Arrival Any Indicators Present on Arrival: Yes History of DVT/PE: No History of Uncontrolled Diabetes: No Urinary Catheter: No History of Decub. Ulcer: No History Surgical Site Infection Following: None - Disposition Have Diagnosis and Disposition been Completed?: Yes Diagnosis: Low back pain, H/O kyphoplasty Disposition: HOME/ ROUTINE Disposition Time: 14:40 Patient Plan: Discharge Condition: STABLE Discharge Instructions (ExitCare): Low Back Pain in Adults, Chronic Pain Additional Instructions: Shahida, thank you for letting us take care of you today. Your provider was MAURICIO Murphy. You were treated for low back pain. The emergency medical care you received today was directed at your acute symptoms. If you were prescribed any medication, please fill it and take as directed. It may take several days for your symptoms to resolve. Return to the Emergency Department if your symptoms worsen, do not improve, or if you have any other problems. Please contact your doctor or call one of the physicians/clinics you have been referred to that are listed on the Patient Visit Information form that is included in your discharge packet. Bring any paperwork you were given at discharge with you along with any medications you are taking to your follow up visit. Our treatment cannot replace ongoing medical care by a primary care provider (PCP) outside of the emergency department. Thank you for allowing the [facility] team to be part of your care today. If you had an X-Ray or CT scan: A Radiologist will review the ED reading if any change in treatment is needed we will contact you. If you had a blood, urine, or wound culture: It will take several days for the results, if any change in treatment is needed we will contact you. Referrals: Nigel Wheeler, [Primary Care Provider] - Follow up with primary Forms: [employer] ([place])
--- NOTE | 2018-01-29 11:50 | RAD ---
HISTORY: COPD/CHF COMPARISON: No prior. FINDINGS: Note there is partial obscuration of the right lung apex more so than left by overlying facial soft tissue and mandible artifact. LUNGS: Increased coarsened interstitial markings with what could represent underlying fibrosis consistent with this patient's history of COPD. Apparent left apical pleural thickening with scarring both lung apices less well visualized on the right due to aforementioned artifact. . Bibasilar atelectasis PLEURA: As above. No significant pleural effusion identified, no pneumothorax apparent. CARDIOVASCULAR: Normal. OSSEOUS STRUCTURES: No significant abnormalities. VISUALIZED UPPER ABDOMEN: Normal. OTHER FINDINGS: None. IMPRESSION: Slightly limited study due to partial obscuration both lung apices right greater than left. Increased coarsened interstitial markings with what could represent underlying fibrosis consistent with this patient's history of COPD. Apparent left apical pleural thickening with scarring both lung apices less well visualized on the right due to aforementioned artifact. . Bibasilar atelectasis
[2018-01-29 12:25] LABS: VENOUS BLOOD GAS BASE EXCESS 9.6 mmol/L (0.0-2.0); VENOUS BLOOD GAS PO2 42 mm/Hg (30-55); VENOUS BLOOD PH 7.34 (7.32-7.43)
[2018-01-29 12:31] LABS: URINE BILIRUBIN NEGATIVE (NEGATIVE); URINE BLOOD NEGATIVE (NEGATIVE); URINE GLUCOSE (UA) NEGATIVE (NEGATIVE); URINE LEUKOCYTE ESTERASE TRACE Leu/uL (NEGATIVE); URINE PROTEIN NEGATIVE mg/dL (<30 mg/dL)
[2018-01-29 12:34] LABS: URINE APPEARANCE SL CLOUDY (CLEAR); URINE COLOR YELLOW (YELLOW)
[2018-01-29 12:34] LABS: BLOOD UREA NITROGEN 25 mg/dL (7-21); CALCIUM 9.4 mg/dL (8.4-10.5); GFR AFRICAN-AMERICAN > 60; GFR NON-AFRICAN AMERICAN > 60
[2018-01-29 12:35] LABS: URINE RBC 0 - 2 /hpf (0-2)
[2018-01-29 12:36] LABS: URINE BACTERIA FEW (NEG); URINE EPITHELIAL CELLS 0 - 2 /hpf (0-5)
[2018-01-29 12:51] LABS: BASO # 0.04 K/mm3 (0.0-2.0); BASO % 0.5 % (0.0-3.0); EOS # 0.4 (0.0-0.7); EOS % 4.3 % (1.5-5.0); GRAN # 6.41 (1.4-6.5); GRAN % 75.6 % (50.0-68.0); HEMOGLOBIN 11.8 g/dL (12.0-16.0); LYMPH % 11.5 % (22.0-35.0); MEAN CELL VOLUME 96.6 fl (80.0-105.0); MEAN CORPUSCULAR HEMOGLOBIN 31.1 pg (25.0-35.0); MEAN CORPUSCULAR HGB CONC 32.2 g/dl (31.0-37.0); MEAN PLATELET VOLUME 11.5 fl (7.0-11.0); MONO # 0.7 (0.1-0.6); MONO % 8.1 % (1.0-6.0); RBC 3.8 10^6/uL (3.5-6.1); RED CELL DISTRIBUTION WIDTH 15.9 % (11.5-14.5); WHITE BLOOD COUNT 8.5 10^3/ul (4.5-11.0)
[2018-01-29 12:52] LABS: B-TYPE NATRIURETIC PEPTIDE 186 pg/mL (0-450); TROPONIN I < 0.01 ng/mL
--- NOTE | 2018-01-29 13:29 | RAD ---
PROCEDURE: Radiographs of the Lumbar Spine. HISTORY: Back pain COMPARISON: No prior. FINDINGS: BONES: Radiopaque kyphoplasty cement is present within a of chronic anterior wedge compression fracture of the T12 segment. Mild multilevel chronic fish-mouth endplate deformities are also seen throughout. . . Diffuse demineralization DISC SPACES: Multilevel degenerative spondylosis. Changes include varying degrees of mild posterior disc space narrowing with endplate eburnation and tiny anterolateral as well as small posterior osteophyte formation. Facets mildly hypertrophic L5-S1 through the L1-L2 levels in decreasing order of severity OTHER FINDINGS: None. IMPRESSION: Kyphoplasty cement present within a chronic anterior wedge compression fracture of the T12 segment minor multilevel chronic fish-mouth endplate deformities are seen as above. Diffuse demineralization.
--- NOTE | 2018-01-29 13:33 | RAD ---
HISTORY: Back pain COMPARISON: No prior. FINDINGS: BONES: Kyphoplasty cement again seen within chronic anterior wedge compression fracture of the T12 segment. Minimal chronic appearing anterior stature loss of a few upper/mid thoracic segments. . No acute compression fracture seen. DISC SPACES: Multilevel degenerative spondylosis. Changes include varying degrees of disc space narrowing and endplate eburnation and anterolateral osteophyte formation. SOFT TISSUES: Paraspinal soft tissues appear grossly unremarkable so far as can be seen. OTHER FINDINGS: Metallic clips right upper quadrant gliotic consistent prior cholecystectomy IMPRESSION: Kyphoplasty cement again seen within a chronic anterior wedge compression fracture of the T12 segment. Minimal chronic appearing anterior stature loss of a few upper/mid thoracic segments. . No acute compression fracture seen.
[2018-01-29 13:48] LABS: INR 1.08 (0.93-1.08); PARTIAL THROMBOPLASTIN TIME 22.3 Seconds (25.1-36.5); PROTHROMBIN TIME 12.3 SECONDS (9.4-12.5)
[2018-01-29 15:07] VITALS: BP 116/64; PULSE 71; TEMP 98; O2SAT 97
--- NOTE | 2018-01-30 08:31 | CARD ---
APPROVED REPORT EKG Measurement Heart [id number] <Conclusion> Normal sinus rhythm RVCD Electrical artifact present No change
== END 2018-01-29 16:47 | disposition home or self-care (01) ==
LOC: ED 10:41
DX: M54.5 Low back pain (principal); Z87.891 Personal history of nicotine dependence; E11.9 Type 2 diabetes mellitus without complications; J44.9 Chronic obstructive pulmonary disease, unspecified; I50.9 Heart failure, unspecified; Z98.890 Other specified postprocedural states

== ENCOUNTER 2018-02-24 19:30 | Inpatient (IN) | payer MEDICAID, MEDICARE ==
[2018-02-24 19:31] VITALS: BMI 24.9
[2018-02-24] MEDS ORDERED: Sodium Chloride 0.9% 500 ML IV STA (20:17)
[2018-02-24] MEDS ORDERED: Iohexol 240 (50 ml) ONE (20:19)
--- NOTE | 2018-02-24 20:22 | ED PDOC ---
Arrival/HPI - General Historian: Patient, Family - General Chief Complaint: Female Genitourinary Time Seen by Provider: 02/24/18 19:44 - History of Present Illness Narrative History of Present Illness (Text): 02/24/18 23:21 This is an 82yo F with PMH of CHF, COPD, urinary incontinence, and diabetes II who presents to ED due to passing stool through her vaginal. As per daughter at beside (who is a nurse), she was changing her mother's diaper when patient had a BM, usual soft black/green movement, but then daughter also noted what appeared to be stool discharge from the vagina itself. Patient did not report any acute symptoms, but daughter grew concerned for possible vaginal fistula, so she called the PMD (Dr. Wheeler) who advised pt to [place] [facility] Patient's only complaint is mild suprapubic discomfort, worse with palpation. Denies chest pain, shortness of breath, nausea, emesis, bloody discharge from vagina, blood with stool, fevers, chills, LE swelling or pain. As per daughters and charting, last surgery was Kyphoplasty of T12 November 2017, and she had a small bowel partial resection 8 yrs prior with appendectomy at that time, no abdominal surgeries between then and now. All other ROS in 12-system review negative as per patient. PMH: See above PSH: Chlecystectomy, Appendectomy, Partial small bowel resection, Ovarian cyst excision, Inguinal hernia repair, CAD s/p PCI, stents x 2 Soical: Former smoker, no ETOH/drugs, lives at [facility] Fhx: non-contributory PMD: Dr. Wheeler ([facility]) Past Medical History - Provider Review Nursing Documentation Reviewed: Yes - Past History Past History: No Previous - Infectious Disease Hx of Infectious Diseases: None - Tetanus Immunization Tetanus Immunization: Unknown - Cardiac Hx Cardiac Disorders: Yes Hx Congestive Heart Failure: Yes - Pulmonary Hx Respiratory Disorders: Yes Hx Chronic Obstructive Pulmonary Disease (COPD): Yes - Neurological Hx Neurological Disorder: Yes Hx Dizziness: Yes - HEENT Hx HEENT Disorder: Yes Hx Cataracts: Yes - Renal Hx Renal Disorder: Yes - Endocrine/Metabolic Hx Endocrine Disorders: Yes Hx Diabetes Mellitus Type 2: Yes - Hematological/Oncological Hx Blood Disorders: Yes Hx Anemia: Yes (blood transfusion) Hx Shingles: No - Integumentary Hx Dermatological Disorder: Yes - Musculoskeletal/Rheumatological Hx Musculoskeletal Disorders: Yes Hx Falls: Yes - Gastrointestinal Hx Gastrointestinal Disorders: Yes Hx Diverticulitis: Yes Hx Gall Bladder Disease: Yes (CHLOECYSTECTOMY) Hx Gastroesophageal Reflux: Yes Other/Comment: celiac disease, umbilical hernia - Genitourinary/Gynecological Hx Genitourinary Disorders: Yes Hx Urinary Tract Infection: Yes - Psychiatric Hx Psychophysiologic Disorder: Yes Hx Anxiety: Yes Hx Panic Disorder: Yes Hx Substance Use: No - Surgical History Hx Appendectomy: Yes Hx Cardiac Catheterization: Yes Hx Cholecystectomy: Yes Hx Coronary Stent: Yes (x2 ptca) Other/Comment: t12 kyphoplasty - Anesthesia Hx Anesthesia: Yes Hx Anesthesia Reactions: No Hx Malignant Hyperthermia: No - Suicidal Assessment Feels Threatened In Home Enviroment: No Family/Social History - Physician Review Nursing Documentation Reviewed: Yes Family/Social History: Other (no contributory family hx) Smoking Status: Former Smoker Hx Alcohol Use: No Hx Substance Use: No Hx Substance Use Treatment: No Allergies/Home Meds Allergies/Adverse Reactions: Allergies morphine Allergy (Verified 01/29/18 10:44) VOMITING codeine Adverse Reaction (Verified 01/29/18 10:44) VOMITING hydromorphone HCl [From Dilaudid] Adverse Reaction (Verified 01/29/18 10:44) VOMITING MYOCINS Adverse Reaction (Uncoded 01/29/18 10:44) VOMITING Home Medications: Home Meds Medication Instructions Recorded Confirmed Atorvastatin Calcium 10 mg PO DAILY 12/12/17 02/25/18 Dexlansoprazole [Dexilant] 1 tab PO DAILY 01/29/18 02/25/18 Docusate [Colace] 2 cap PO Q12 PRN 01/29/18 02/25/18 Silver Sulfadiazine 1% [Silvadene 1 apful TOP PRN PRN 01/29/18 02/25/18 1%] Zinc Sulfate [Zinc-220] 1 cap PO DAILY 01/29/18 02/25/18 predniSONE [predniSONE Tab] 2.5 mg PO DAILY 02/25/18 02/25/18 Review of Systems - Physician Review All systems were reviewed & negative as marked: Yes (as per HPI) Physical Exam - Physical Exam Physical Exam Limitations: Uncooperative (with vaginal exam only) Vital Signs Reviewed: Yes Temperature: Afebrile Blood Pressure: Normal Pulse: Regular Respiratory Rate: Normal Appearance: Positive for: Non-Toxic, Comfortable, Other (chronically ill) Pain Distress: Mild Mental Status: Positive for: Alert and Oriented X 3 - Systems Exam Head: Present: Atraumatic, Normocephalic Pupils: No: Pinpoint Extroacular Muscles: Present: EOMI Conjunctiva: Present: Other (dirty sclera but not icteric). No: Injected, Icteric Mouth: Present: Moist Mucous Membranes. No: Dry, Drooling, Normal Lips Nose (External): Present: Atraumatic. No: Abrasion, Laceration Nose (Internal): Present: No Active Bleeding. No: Epistaxis Neck: Present: Normal Range of Motion. No: JVD Respiratory/Chest: Present: Clear to Auscultation, Good Air Exchange. No: Respiratory Distress, Accessory Muscle Use, Wheezes, Decreased Breath Sounds, Rales, Rhonchi Cardiovascular: Present: Regular Rate and Rhythm, Normal S1, S2. No: Murmurs, Irregular Rhythm, Tachycardic, Bradycardic Abdomen: Present: Tenderness (mild suprapubic tenderness to palpation), Normal Bowel Sounds. No: Distention, Peritoneal Signs, Mass/Organomegaly Genitourinary/Pelvic Exam: Present: Normal External Genitalia, Vaginal Discharge (stool appearing discharge grossly apparent, active discharge from possible fistula observed on speculum exam; exam limited due to patient terminating that portion of exam rapidly). No: Vaginal Bleeding Upper Extremity: Present: Normal Inspection, Normal ROM, NORMAL PULSES. No: Cyanosis, Edema, Tenderness, Swelling, Erythema Lower Extremity: Present: Normal Inspection, NORMAL PULSES, Normal ROM. No: Edema, CALF TENDERNESS, Cyanosis, Tenderness, Swelling, Erythema Neurological: Present: GCS=15, Speech Normal, Motor Func Grossly Intact Skin: Present: Warm, Dry, Normal Color. 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 No leukocytosis or severe anemia, afebrile, normotensive, normocardic , no signs of sepsis. Attending discussed case with Pt's PMD, Dr. Wheeler, who agrees with admission and CT abd/pelvis. Requests consults with Dr. Ferrer (Surgery) as per patient 's family's preference, and Dr. Reed (Record Tester). (Demarcus Delacruz) 02/25/18 00:42 Shahida Blackburn is an 82 year old female who is brought into the emergency department for a complaint of feculent vaginal discharge. In agreement with resident note, which includes further HPI details. Patient was seen and evaluated with resident, came up with plan and treatment together. CT Abdomen and Pelvis With Intravenous Contrast Dictated and Authenticated by: Nicolle Beach MD 02/25/2018 12:35 AM Eastern Time ([place] & [place]) IMPRESSION: Endometrial appears abnormally distended with fluid. Followup evaluation with dedicated ultrasound recommended. Clinical evaluation necessary. Sigmoid colon abuts uterus, enteric contrast has not reached distal colon limiting evaluation. Left-sided ventral hernia, containing the mid transverse colon. Left colon is relatively collapsed. Cannot exclude mild obstructive changes. Inferior to this is a small right- sided ventral hernia containing small bowel loop without evidence of obstruction. Correlate clinically to exclude incarceration. Appearance is similar to prior study. Again noted in the pelvis is a 2 cm cystic density posteriorly abutting small bowel loops, uncertain etiology, appearance not significantly changed. Large hiatal hernia. Colonic diverticula. Interval grade 1 compression fracture of L1. Vertebroplasty with residual compression deformity of T12 again noted. Marked emphysematous changes. Please see additional details/findings as above. Correlate clinically. Followup as warranted. (Jesús Olson) - Lab Interpretations Lab Results: 02/24/18 21:06 02/24/18 22:30 Lab Results 02/25/18 07:14: POC Glucose (mg/dL) 86 02/24/18 22:30: Sodium 140, Potassium 4.2, Chloride 103, Carbon Dioxide 30, Anion Gap 12, BUN 30 H, Creatinine 0.8, Est GFR ( Amer) > 60, Est GFR ( Non-Af Amer) > 60, Random Glucose 86, Calcium 9.0, Magnesium 1.9, Total Bilirubin 0.4, AST 41 H D, ALT 126 H, Alkaline Phosphatase 82, Total Protein 5.6 L, Albumin 3.2, Globulin 2.3, Albumin/Globulin Ratio 1.4, Lipase 60 02/24/18 21:06: PT 11.9, INR 1.04, APTT 26.0 02/24/18 21:06: WBC 9.1, RBC 4.24, Hgb 13.2, Hct 40.7, MCV 96.0, MCH 31.1, MCHC 32.4, RDW 15.2 H, Plt Count 215, MPV 12.3 H, Gran % 75.4 H, Lymph % (Auto) 15.1 L, [place] % (Auto) 7.3 H, Eos % (Auto) 1.9, Baso % (Auto) 0.3, Gran # 6.82 H, Lymph # (Auto) 1.4, [place] # (Auto) 0.7 H, Eos # (Auto) 0.2, Baso # (Auto) 0.03 - RAD Interpretation Radiology Orders: 02/24/18 20:16 ABD PELVIS PO & IV CONTRAST [CT] Stat 02/25/18 08:00 HEAD W/O CONTRAST [CT] Routine - Medication Orders Current Medication Orders: Acetaminophen (Tylenol 325mg Tab) 650 mg PO Q4H PRN PRN Reason: Pain, moderate (4-7) Al Hydrox/Mg Hydrox/Simethicone (Maalox Plus 30 Ml) 30 ml PO Q4 PRN PRN Reason: Indigestion / Heartburn Albuterol/Ipratropium (Duoneb 3 Mg/0.5 Mg (3 Ml) Ud) 3 ml IH [id number] COUNT INCLUDES THE [facility] Last Admin: 02/26/18 19:31 Dose: 3 ml Alprazolam (Xanax) 0.5 mg PO BID COUNT INCLUDES THE [facility] PRN Reason: Protocol Stop: 03/04/18 10:01 Last Admin: 02/26/18 17:14 Dose: Not Given Non-Admin Reason: Patient Asleep Ascorbic Acid (Vitamin C 500 Mg Tab) 500 mg PO DAILY COUNT INCLUDES THE [facility] Last Admin: 02/26/18 09:54 Dose: 500 mg Atorvastatin Calcium (Lipitor) 10 mg PO DAILY COUNT INCLUDES THE [facility] Last Admin: 02/26/18 09:54 Dose: 10 mg Betamethasone/Clotrimazole (Lotrisone) 0 gm TOP BID COUNT INCLUDES THE [facility] Last Admin: 02/26/18 17:13 Dose: Not Given Non-Admin Reason: Patient Refused Budesonide (Pulmicort Respules) 0.5 mg IH [id number] COUNT INCLUDES THE [facility] Last Admin: 02/26/18 19:32 Dose: 0.5 mg Donepezil HCl (Aricept) 10 mg PO HS COUNT INCLUDES THE [facility] Last Admin: 02/25/18 21:56 Dose: 10 mg Ferrous Sulfate (Feosol) 324 mg PO TID COUNT INCLUDES THE [facility] Last Admin: 02/26/18 17:14 Dose: 324 mg Heparin Sodium (Porcine) (Heparin) 5,000 units SC Q12 [facility] PRN Reason: Protocol Last Admin: 02/26/18 09:53 Dose: 5,000 units Subcutaneous Administrations Document 02/26/18 09:53 ML (Rec: 02/26/18 09:53 ML [id number]) Injection Site MAR Injection Site Left Abdomen Charges for Administration # of Subcutaneous Administrations 1 Metronidazole (Flagyl) 500 mg in 100 mls @ 100 mls/hr IVPB Q8 JEFF[facility] PRN Reason: Protocol Last Admin: 02/26/18 14:11 Dose: 100 mls/hr eMAR Start Stop Document 02/26/18 14:11 ML (Rec: 02/26/18 14:11 ML [id number]) Intravenous Solution Start Date 02/26/18 Start Time 14:11 End Date 02/26/18 End time 15:11 Total Infusion Time 60 Ceftriaxone Sodium (Rocephin 1 Gram Ivpb) 1 gm in 100 mls @ 100 mls/hr IVPB DAILY [facility] PRN Reason: Protocol Last Admin: 02/26/18 09:53 Dose: 100 mls/hr eMAR Start Stop Document 02/26/18 09:53 ML (Rec: 02/26/18 09:53 ML [id number]) Intravenous Solution Start Date 02/26/18 Start Time 09:53 End Date 02/26/18 End time 11:00 Total Infusion Time 67 Insulin Human Regular (Humulin R High) 0 units SC ACHS [facility]FF[facility] PRN Reason: Protocol Last Admin: 02/26/18 16:37 Dose: Not Given Non-Admin Reason: Blood Sugar Parameter Lactobacillus Acidophilus (Bacid Acidophilus) 1 cap PO BID COUNT INCLUDES THE [facility] Last Admin: 02/26/18 17:14 Dose: 1 cap Pantoprazole Sodium (Protonix Ec Tab) 40 mg PO 0600 COUNT INCLUDES THE [facility] Last Admin: 02/26/18 05:15 Dose: 40 mg Prednisone (Prednisone Tab) 2.5 mg PO DAILY COUNT INCLUDES THE [facility] Last Admin: 02/26/18 09:54 Dose: 2.5 mg Sildenafil Citrate (Revatio) 20 mg PO BID COUNT INCLUDES THE [facility] Last Admin: 02/26/18 17:15 Dose: 20 mg Silver Sulfadiazine (Silvadene 1% 25 Gm) 1 gm TP DAILY PRN PRN Reason: Rash Tramadol HCl (Ultram) 50 mg PO TID PRN PRN Reason: pain Last Admin: 02/26/18 18:20 Dose: 50 mg MAR Pain Assessment Document 02/26/18 18:20 ML (Rec: 02/26/18 18:20 ML [id number]) Pain Reassessment Is this a pain reassessment? No Presence of Pain Presence of Pain Yes Zinc Sulfate (Zinc Sulfate 220 Mg Cap) 220 mg PO DAILY COUNT INCLUDES THE [facility] Last Admin: 02/26/18 09:54 Dose: 220 mg Discontinued Medications Sodium Chloride (Sodium Chloride 0.9%) 500 mls @ 999 mls/hr IV .Q31M STA Stop: 02/24/18 20:47 Last Admin: 02/24/18 21:01 Dose: Not Given Non-Admin Reason: Patient Refused eMAR Start Stop Document 02/24/18 21:01 EQ (Rec: 02/24/18 21:01 EQ [id number]) Intravenous Solution Start Date 02/24/18 Start Time 21:01 Ciprofloxacin (Cipro 400mg/200ml Dsw) 400 mg in 200 mls @ 133.3 mls/hr IVPB Q12 COUNT INCLUDES THE [facility] PRN Reason: Protocol Stop: 02/25/18 23:31 Magnesium Citrate (Citrate Of Mag) 300 ml PO ONCE ONE Stop: 02/26/18 12:56 Last Admin: 02/26/18 14:11 Dose: 300 ml Disposition/Present on Arrival - Present on Arrival Any Indicators Present on Arrival: No History of DVT/PE: No History of Uncontrolled Diabetes: No Urinary Catheter: No History of Decub. Ulcer: No History Surgical Site Infection Following: None - Disposition Have Diagnosis and Disposition been Completed?: Yes Disposition Time: 22:30 Patient Plan: Admission - Disposition Diagnosis: Vaginal fistula Disposition: HOSPITALIZED Patient Problems: Current Active Problems Problem Status Onset Vaginal fistula Acute Condition: FAIR
[2018-02-24] MEDS ORDERED: Iohexol 350 MG/100 ML VIAL ONE (20:49)
[2018-02-24 21:09] LABS: BASO # 0.03 K/mm3 (0.0-2.0); BASO % 0.3 % (0.0-3.0); EOS # 0.2 (0.0-0.7); EOS % 1.9 % (1.5-5.0); GRAN # 6.82 (1.4-6.5); GRAN % 75.4 % (50.0-68.0); HEMOGLOBIN 13.2 g/dL (12.0-16.0); LYMPH # 1.4 (1.2-3.4); LYMPH % 15.1 % (22.0-35.0); MEAN CORPUSCULAR HEMOGLOBIN 31.1 pg (25.0-35.0); MEAN CORPUSCULAR HGB CONC 32.4 g/dl (31.0-37.0); MEAN PLATELET VOLUME 12.3 fl (7.0-11.0); MONO # 0.7 (0.1-0.6); MONO % 7.3 % (1.0-6.0); RBC 4.24 10^6/uL (3.5-6.1); RED CELL DISTRIBUTION WIDTH 15.2 % (11.5-14.5); WHITE BLOOD COUNT 9.1 10^3/ul (4.5-11.0)
[2018-02-24 21:38] LABS: INR 1.04 (0.93-1.08); PROTHROMBIN TIME 11.9 SECONDS (9.4-12.5)
--- NOTE | 2018-02-24 22:02 | CP.PCM.CON ---
<Figueroa Saha - Last Filed: 02/25/18 08:27> History of Present Illness - History of Present Illness History of Present Illness: General Surgery Consult for Dr. 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 Patient was seen and examined in the ED. Family was bedside who provided most of the history. As per family, patient was being changed around 16:00 when the daughter notice feculent matter coming from her vagina. Patient and family both report that patient has never experienced this in the past. Today is the first day that they noticed the discharge. Patient denies urinary symptoms. She denies pain. Patient currently has no complaints. ED ordered CT abdomen/pelvis with contrast that we will follow. PMD: Dr. Nigel Wheeler PMH: CAD s/p stents x2, HTN, HLD, Moderate tricuspid regurgitation, LVEF 55% ( Echo 09/23/17), [id number], Emphysema, Pulmonary HTN (RVSP 65), GERD, Anemia of chronic disease and B12 deficiency, Osteoporosis, Claustrophobia Meds: As per EMR Allergy: morphine, codeine, dilaudid, -myocins PSH: cholecystectomy, appendectomy, partial small bowel resection, cardiac cath with 2 stents, ovarian cyst removal, inguinal hernia repair FH: non-contributory Social: former smoker - quit 10 years ago but smoked for 1.5 packs for 56 years , denies EtOH/illicit drugs use, came from assisted Review of Systems - Review of Systems All systems: reviewed and no additional remarkable complaints except (as per HPI ) Past Patient History - Infectious Disease Hx of Infectious Diseases: None - Tetanus Immunizations Tetanus Immunization: Unknown - Past Medical History & Family History Past Medical History?: Yes - Past Social History Smoking Status: Former Smoker - CARDIAC Hx Cardiac Disorders: Yes Hx Congestive Heart Failure: Yes - PULMONARY Hx Respiratory Disorders: Yes Hx Chronic Obstructive Pulmonary Disease (COPD): Yes - NEUROLOGICAL Hx Neurological Disorder: Yes Hx Dizziness: Yes - HEENT Hx HEENT Problems: Yes Hx Cataracts: Yes - RENAL Hx Chronic Kidney Disease: Yes - ENDOCRINE/METABOLIC Hx Endocrine Disorders: Yes Hx Diabetes Mellitus Type 2: Yes - HEMATOLOGICAL/ONCOLOGICAL Hx Blood Disorders: Yes Hx Anemia: Yes (blood transfusion) Hx Shingles: No - INTEGUMENTARY Hx Dermatological Problems: Yes - MUSCULOSKELETAL/RHEUMATOLOGICAL Hx Musculoskeletal Disorders: Yes Hx Falls: Yes - GASTROINTESTINAL Hx Gastrointestinal Disorders: Yes Hx Diverticulitis: Yes Hx Gall Bladder Disease: Yes (CHLOECYSTECTOMY) Hx Gastroesophageal Reflux: Yes Other/Comment: celiac disease, umbilical hernia - GENITOURINARY/GYNECOLOGICAL Hx Genitourinary Disorders: Yes Hx Urinary Tract Infection: Yes - PSYCHIATRIC Hx Psychophysiologic Disorder: Yes Hx Anxiety: Yes Hx Panic Symptoms: Yes Hx Substance Use: No - SURGICAL HISTORY Hx Appendectomy: Yes Hx Cardiac Catheterization: Yes Hx Cholecystectomy: Yes Hx Coronary Stent: Yes (x2 ptca) Other/Comment: t12 kyphoplasty - ANESTHESIA Hx Anesthesia: Yes Hx Anesthesia Reactions: No Hx Malignant Hyperthermia: No Meds Allergies/Adverse Reactions: Allergies Allergy/AdvReac Type Severity Reaction Status Date / Time morphine Allergy VOMITING Verified 01/29/18 10:44 codeine AdvReac VOMITING Verified 01/29/18 10:44 hydromorphone HCl AdvReac VOMITING Verified 01/29/18 10:44 [From Dilaudid] MYOCINS AdvReac VOMITING Uncoded 01/29/18 10:44 Physical Exam - Constitutional Appears: Non-toxic, No Acute Distress - Head Exam Head Exam: ATRAUMATIC, NORMOCEPHALIC - Eye Exam Eye Exam: Normal appearance - ENT Exam ENT Exam: Mucous Membranes Moist - Respiratory Exam Respiratory Exam: NORMAL BREATHING PATTERN - Cardiovascular Exam Cardiovascular Exam: REGULAR RHYTHM - GI/Abdominal Exam GI & Abdominal Exam: Hernia (Ventral hernia, incisional), Normal Bowel Sounds, Soft. absent: Distended, Firm, Guarding, Rebound, Rigid, Tenderness - Exam Additional comments: patient refused rectal and speculum exam - Extremities Exam Extremities exam: Positive for: normal capillary refill. Negative for: pedal edema - Back Exam Back exam: absent: CVA tenderness (L), CVA tenderness (R) Additional comments: erythema on sacrum, healed from stage II ulcer previously - Neurological Exam Neurological exam: Alert - Psychiatric Exam Psychiatric exam: Normal Affect, Normal Mood - Skin Skin Exam: Dry, Warm Results - Vital Signs Recent Vital Signs: Last Vital Signs Temp 98.1 F 02/24/18 19:31 Pulse 104 H 02/24/18 19:31 Resp 18 02/24/18 19:31 BP 129/75 02/24/18 19:31 Pulse Ox 97 02/24/18 19:31 - Labs Result Diagrams: 02/24/18 21:06 02/24/18 22:30 Labs: Laboratory Results - last 24 hr 02/24/18 02/24/18 21:06 21:06 WBC 9.1 RBC 4.24 Hgb 13.2 Hct 40.7 MCV 96.0 MCH 31.1 MCHC 32.4 RDW 15.2 H Plt Count 215 MPV 12.3 H Gran % 75.4 H Lymph % (Auto) 15.1 L [place] % (Auto) 7.3 H Eos % (Auto) 1.9 Baso % (Auto) 0.3 Gran # 6.82 H Lymph # (Auto) 1.4 [place] # (Auto) 0.7 H Eos # (Auto) 0.2 Baso # (Auto) 0.03 PT 11.9 INR 1.04 APTT 26.0 Assessment & Plan - Assessment and Plan (Free Text) Assessment: 82 F who presents with feculent vaginal discharge Plan: -NPO -CT Abdomen/Pelvis with oral contrast -Will need Cardio and Pulm on board if surgical intervention is needed -Medical optimization -Further recommendation as per Dr. Ferrer pending CT scan Figueroa Saha PGY1 - Date & Time Date: 02/24/18 Time: 23:00 <Lauro Ferrer - Last Filed: 02/25/18 09:04> Meds - Medications Medications: Current Medications Acetaminophen (Tylenol 325mg Tab) 650 mg PO Q4H PRN PRN Reason: Pain, moderate (4-7) Al Hydrox/Mg Hydrox/Simethicone (Maalox Plus 30 Ml) 30 ml PO Q4 PRN PRN Reason: Indigestion / Heartburn Albuterol/Ipratropium (Duoneb 3 Mg/0.5 Mg (3 Ml) Ud) 3 ml IH [id number] [facility] Last Admin: 02/25/18 08:06 Dose: Not Given Alprazolam (Xanax) 0.5 mg PO BID [facility] PRN Reason: Protocol Stop: 03/04/18 10:01 Ascorbic Acid (Vitamin C 500 Mg Tab) 500 mg PO DAILY [facility] Atorvastatin Calcium (Lipitor) 10 mg PO DAILY [facility] Betamethasone/Clotrimazole (Lotrisone) 0 gm TOP BID [facility] Budesonide (Pulmicort Respules) 0.5 mg IH [id number] [facility] Last Admin: 02/25/18 08:06 Dose: Not Given Ferrous Sulfate (Feosol) 324 mg PO TID [facility] Heparin Sodium (Porcine) (Heparin) 5,000 units SC Q12 JEFFERY PRN Reason: Protocol Insulin Human Regular (Humulin R High) 0 units SC ACHS JEFFERY PRN Reason: Protocol Last Admin: 02/25/18 07:58 Dose: Not Given Lactobacillus Acidophilus (Bacid Acidophilus) 1 cap PO BID [facility] Pantoprazole Sodium (Protonix Ec Tab) 40 mg PO 0600 [facility] Last Admin: 02/25/18 07:49 Dose: Not Given Prednisone (Prednisone Tab) 2.5 mg PO DAILY [facility] Sildenafil Citrate (Revatio) 20 mg PO BID [facility] Silver Sulfadiazine (Silvadene 1% 25 Gm) 1 gm TP DAILY PRN PRN Reason: Rash Tramadol HCl (Ultram) 50 mg PO TID PRN PRN Reason: pain Zinc Sulfate (Zinc Sulfate 220 Mg Cap) 220 mg PO DAILY [facility] Results - Vital Signs Recent Vital Signs: Last Vital Signs Temp 97 F L 02/25/18 05:52 Pulse 93 H 02/25/18 05:52 Resp 20 02/25/18 05:52 BP 116/62 02/25/18 05:52 Pulse Ox 100 02/25/18 05:52 - Labs Result Diagrams: 02/24/18 21:06 02/24/18 22:30 Assessment & Plan - Assessment and Plan (Free Text) Assessment: Dx Presumptive [place]-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 If anticoagulation can be d/april we can get the sampling [employer]anger is on board and will return later(?anti-coag) The ventral hernia is asymptomatic and NOT obstructing-NO problem for now I will follow with you and keep the 2 daughters in the loop This consult done under my direct supervision Tyrel Ferrer MD FACS
[2018-02-24 22:54] LABS: ALB/GLOB RATIO 1.4 (1.1-1.8); ALBUMIN 3.2 g/dL (3.0-4.8); ALT/SGPT 126 U/L (7-56); AST/SGOT 41 U/L (14-36); BLOOD UREA NITROGEN 30 mg/dL (7-21); GFR AFRICAN-AMERICAN > 60; GFR NON-AFRICAN AMERICAN > 60; LIPASE 60 U/L (23-300)
--- NOTE | 2018-02-25 00:36 | CT ---
EXAM: CT Abdomen and Pelvis With Intravenous Contrast CLINICAL HISTORY: 82 years old, female; Pain and signs and symptoms; Other: Diarrhea; Abdominal pain; Additional info: Abd pain diarrhea ? colonic vaginal fistula TECHNIQUE: Axial computed tomography images of the abdomen and pelvis with intravenous contrast. All CT scans at this facility use one or more dose reduction techniques, viz.: automated exposure control; ma/kV adjustment per patient size (including targeted exams where dose is matched to indication; i.e. head); or iterative reconstruction technique. Coronal and sagittal reformatted images were created and reviewed. CONTRAST: 100 mL of [id number] administered intravenously. COMPARISON: CT - ABD PELVIS PO CONTRAST ONLY 2017-11-27 16:55 FINDINGS: Lung bases: Marked emphysematous changes. Liver: No acute abnormality as visualized. Gallbladder and bile ducts: Status post cholecystectomy. Pancreas: No acute abnormality as visualized. Spleen: No splenomegaly. Adrenals: No acute abnormality as visualized. Kidneys and ureters: 2 cm left renal cyst. Additional subcentimeter renal hypodensities too small to characterize. Symmetric emhancement. No hydronephrosis. Stomach and bowel: Large hiatal hernia. Limited evaluation of the stomach due to collapsed state. No obstruction. No definitive focus of mucosal thickening. Colonic diverticula. Bladder: No acute abnormality as visualized. Reproductive: Endometrial appears abnormally distended with fluid. Followup evaluation with dedicated ultrasound recommended. Sigmoid colon abuts uterus. Adnexa not clearly evaluated. Intraperitoneal space: Again noted in the pelvis is a 2 cm cystic density posteriorly abutting small bowel loops, uncertain etiology, appearance not significantly changed. No free air. No significant fluid collection. Bones/joints: Interval grade 1 compression fracture of L1. Vertebroplasty with residual compression deformity of T12 again noted. Degenerative changes. Soft tissues: Left-sided ventral hernia, containing the mid transverse colon. Left colon is relatively collapsed. Cannot exclude mild obstructive changes. Inferior to this is a small right-sided ventral hernia containing small bowel loop without evidence of obstruction. Correlate clinically to exclude incarceration. Appearance is similar to prior study. Vasculature: No acute abnormality as visualized. No abdominal aortic aneurysm. Lymph nodes: No acute abnormality as visualized. IMPRESSION: Endometrial appears abnormally distended with fluid. Followup evaluation with dedicated ultrasound recommended. Clinical evaluation necessary. Sigmoid colon abuts uterus, enteric contrast has not reached distal colon limiting evaluation. Left-sided ventral hernia, containing the mid transverse colon. Left colon is relatively collapsed. Cannot exclude mild obstructive changes. Inferior to this is a small right-sided ventral hernia containing small bowel loop without evidence of obstruction. Correlate clinically to exclude incarceration. Appearance is similar to prior study. Again noted in the pelvis is a 2 cm cystic density posteriorly abutting small bowel loops, uncertain etiology, appearance not significantly changed. Large hiatal hernia. Colonic diverticula. Interval grade 1 compression fracture of L1. Vertebroplasty with residual compression deformity of T12 again noted. Marked emphysematous changes. Please see additional details/findings as above. Correlate clinically. Followup as warranted.
[2018-02-25] MEDS ORDERED: Silver Sulfadiazine 1% Cream (25 gm) TP PRN (03:15)
[2018-02-25] MEDS: Pantoprazole 40 mg EC Tab PO SCH (07:49)
[2018-02-25] MEDS: Insulin Reg-HIGH-Coverage SC SCH ×4 (07:58→22:16)
[2018-02-25] MEDS: Budesonide 0.5 mg/2 ml Inhal Susp UD IH SCH ×2 (08:06→19:52)
[2018-02-25] MEDS: Albuterol-Ipratrop 3 mg / 0.5 (3 ml) UD IH SCH ×3 (08:06→19:52)
[2018-02-25 09:03] LABS: BASO # 0.02 K/mm3 (0.0-2.0); BASO % 0.2 % (0.0-3.0); EOS # 0.3 (0.0-0.7); EOS % 3.7 % (1.5-5.0); GRAN # 6.02 (1.4-6.5); GRAN % 74.4 % (50.0-68.0); HEMOGLOBIN 12.1 g/dL (12.0-16.0); LYMPH # 1.3 (1.2-3.4); LYMPH % 15.4 % (22.0-35.0); MEAN CELL VOLUME 94.7 fl (80.0-105.0); MEAN CORPUSCULAR HEMOGLOBIN 30.8 pg (25.0-35.0); MEAN CORPUSCULAR HGB CONC 32.5 g/dl (31.0-37.0); MEAN PLATELET VOLUME 11.7 fl (7.0-11.0); MONO # 0.5 (0.1-0.6); MONO % 6.3 % (1.0-6.0); RBC 3.93 10^6/uL (3.5-6.1); RED CELL DISTRIBUTION WIDTH 14.8 % (11.5-14.5); WHITE BLOOD COUNT 8.1 10^3/ul (4.5-11.0)
[2018-02-25 09:35] LABS: ALB/GLOB RATIO 1.2 (1.1-1.8); ALBUMIN 3.1 g/dL (3.0-4.8); ALT/SGPT 117 U/L (7-56); AST/SGOT 35 U/L (14-36); BLOOD UREA NITROGEN 21 mg/dL (7-21); CALCIUM 9.3 mg/dL (8.4-10.5); GFR AFRICAN-AMERICAN > 60; GFR NON-AFRICAN AMERICAN > 60
[2018-02-25] MEDS: Lactobacillus Acidophilus 500 MU Cap PO SCH ×2 (10:30→17:21)
[2018-02-25] MEDS: Sildenafil 20 MG TAB PO SCH ×2 (10:32→17:21)
[2018-02-25] MEDS ORDERED: Iohexol 350 MG/100 ML VIAL ONE (14:23)
[2018-02-25 14:43] LABS: T3 0.79 ng/mL (0.97-1.69)
--- NOTE | 2018-02-25 14:52 | CP.PCM.CON ---
History of Present Illness - History of Present Illness History of Present Illness: 82 year old female with PMH of COPD, oxygen-dependent at home, pulmonary HTN, CAD S/P PCI, dyslipidemia, osteoporosis, S/P partial bowel resection, S/P appendectomy, S/P ovarian cyst excision, S/P cholecystectomy was [place] [facility] [place] family not around and not answering calls at the moment) for stool-like discharge from the vagina. According to ER records, this has not happened with the patient previously. The patient herself denies having the discharge. She also denies fever or chills, no nausea or vomiting, no abdominal pain, no dysuria, no diarrhea, no headache or dizziness, no chest pain , no SOB, no cough or colds. Infectious diseases consult is requested to further evaluate and manage. Review of Systems - Review of Systems All systems: reviewed and no additional remarkable complaints except (as per HPI ) Past Patient History - Infectious Disease Hx of Infectious Diseases: None - Tetanus Immunizations Tetanus Immunization: Unknown - Past Medical History & Family History Past Medical History?: Yes - Past Social History Smoking Status: Former Smoker - CARDIAC Hx Cardiac Disorders: Yes Hx Congestive Heart Failure: Yes - PULMONARY Hx Respiratory Disorders: Yes Hx Chronic Obstructive Pulmonary Disease (COPD): Yes - NEUROLOGICAL Hx Neurological Disorder: Yes Hx Dizziness: Yes - HEENT Hx HEENT Problems: Yes Hx Cataracts: Yes - RENAL Hx Chronic Kidney Disease: Yes - ENDOCRINE/METABOLIC Hx Endocrine Disorders: Yes Hx Diabetes Mellitus Type 2: Yes - HEMATOLOGICAL/ONCOLOGICAL Hx Blood Disorders: Yes Hx Anemia: Yes (blood transfusion) Hx Shingles: No - INTEGUMENTARY Hx Dermatological Problems: Yes - MUSCULOSKELETAL/RHEUMATOLOGICAL Hx Musculoskeletal Disorders: Yes Hx Falls: Yes - GASTROINTESTINAL Hx Gastrointestinal Disorders: Yes Hx Diverticulitis: Yes Hx Gall Bladder Disease: Yes (CHLOECYSTECTOMY) Hx Gastroesophageal Reflux: Yes Other/Comment: celiac disease, umbilical hernia - GENITOURINARY/GYNECOLOGICAL Hx Genitourinary Disorders: Yes Hx Urinary Tract Infection: Yes - PSYCHIATRIC Hx Psychophysiologic Disorder: Yes Hx Anxiety: Yes Hx Panic Symptoms: Yes Hx Substance Use: No - SURGICAL HISTORY Hx Appendectomy: Yes Hx Cardiac Catheterization: Yes Hx Cholecystectomy: Yes Hx Coronary Stent: Yes (x2 ptca) Other/Comment: t12 kyphoplasty - ANESTHESIA Hx Anesthesia: Yes Hx Anesthesia Reactions: No Hx Malignant Hyperthermia: No Meds Allergies/Adverse Reactions: Allergies Allergy/AdvReac Type Severity Reaction Status Date / Time morphine Allergy VOMITING Verified 01/29/18 10:44 codeine AdvReac VOMITING Verified 01/29/18 10:44 hydromorphone HCl AdvReac VOMITING Verified 01/29/18 10:44 [From Dilaudid] MYOCINS AdvReac VOMITING Uncoded 01/29/18 10:44 - Medications Medications: Current Medications Acetaminophen (Tylenol 325mg Tab) 650 mg PO Q4H PRN PRN Reason: Pain, moderate (4-7) Al Hydrox/Mg Hydrox/Simethicone (Maalox Plus 30 Ml) 30 ml PO Q4 PRN PRN Reason: Indigestion / Heartburn Albuterol/Ipratropium (Duoneb 3 Mg/0.5 Mg (3 Ml) Ud) 3 ml IH [id number] [facility] Last Admin: 02/25/18 08:06 Dose: Not Given Alprazolam (Xanax) 0.5 mg PO BID [facility] PRN Reason: Protocol Stop: 03/04/18 10:01 Last Admin: 02/25/18 10:33 Dose: 0.5 mg Ascorbic Acid (Vitamin C 500 Mg Tab) 500 mg PO DAILY [facility] Last Admin: 02/25/18 10:33 Dose: 500 mg Atorvastatin Calcium (Lipitor) 10 mg PO DAILY [facility] Last Admin: 02/25/18 10:31 Dose: 10 mg Betamethasone/Clotrimazole (Lotrisone) 0 gm TOP BID [facility] Budesonide (Pulmicort Respules) 0.5 mg IH [id number] [facility] Last Admin: 02/25/18 08:06 Dose: Not Given Ferrous Sulfate (Feosol) 324 mg PO TID [facility] Last Admin: 02/25/18 10:30 Dose: 324 mg Heparin Sodium (Porcine) (Heparin) 5,000 units SC Q12 JEFFERY PRN Reason: Protocol Last Admin: 02/25/18 10:30 Dose: 5,000 units Metronidazole (Flagyl) 500 mg in 100 mls @ 100 mls/hr IVPB Q8 JEFFERY PRN Reason: Protocol Ciprofloxacin (Cipro 400mg/200ml Dsw) 400 mg in 200 mls @ 133.3 mls/hr IVPB Q12 JEFFERY PRN Reason: Protocol Stop: 02/25/18 23:31 Insulin Human Regular (Humulin R High) 0 units SC ACHS [facility] PRN Reason: Protocol Last Admin: 02/25/18 07:58 Dose: Not Given Lactobacillus Acidophilus (Bacid Acidophilus) 1 cap PO BID [facility] Last Admin: 02/25/18 10:30 Dose: 1 cap Pantoprazole Sodium (Protonix Ec Tab) 40 mg PO 0600 [facility] Last Admin: 02/25/18 07:49 Dose: Not Given Prednisone (Prednisone Tab) 2.5 mg PO DAILY [facility] Last Admin: 02/25/18 10:31 Dose: 2.5 mg Sildenafil Citrate (Revatio) 20 mg PO BID [facility] Last Admin: 02/25/18 10:32 Dose: 20 mg Silver Sulfadiazine (Silvadene 1% 25 Gm) 1 gm TP DAILY PRN PRN Reason: Rash Tramadol HCl (Ultram) 50 mg PO TID PRN PRN Reason: pain Zinc Sulfate (Zinc Sulfate 220 Mg Cap) 220 mg PO DAILY [facility] Last Admin: 02/25/18 10:34 Dose: 220 mg Physical Exam - Constitutional Appears: Non-toxic, Chronically Ill - Head Exam Head Exam: NORMAL INSPECTION - ENT Exam ENT Exam: Mucous Membranes Moist - Neck Exam Neck exam: Negative for: Meningismus - Respiratory Exam Respiratory Exam: Decreased Breath Sounds - Cardiovascular Exam Cardiovascular Exam: +S1, +S2 - GI/Abdominal Exam GI & Abdominal Exam: Soft. absent: Tenderness Results - Vital Signs Recent Vital Signs: Last Vital Signs Temp 97.0 F L 02/25/18 06:00 Pulse 93 H 02/25/18 06:00 Resp 20 02/25/18 06:00 BP 116/62 02/25/18 06:00 Pulse Ox 100 02/25/18 06:00 - Labs Result Diagrams: 02/25/18 08:55 02/25/18 08:55 Labs: Laboratory Results - last 24 hr 02/25/18 02/25/18 02/25/18 08:55 08:55 11:47 WBC 8.1 RBC 3.93 Hgb 12.1 Hct 37.2 MCV 94.7 MCH 30.8 MCHC 32.5 RDW 14.8 H Plt Count 173 MPV 11.7 H Gran % 74.4 H Lymph % (Auto) 15.4 L [place] % (Auto) 6.3 H Eos % (Auto) 3.7 Baso % (Auto) 0.2 Gran # 6.02 Lymph # (Auto) 1.3 [place] # (Auto) 0.5 Eos # (Auto) 0.3 Baso # (Auto) 0.02 Sodium 142 Potassium 4.0 Chloride 103 Carbon Dioxide 27 Anion Gap 16 BUN 21 Creatinine 0.6 L Est GFR ( Amer) > 60 Est GFR (Non-Af Amer) > 60 POC Glucose (mg/dL) 87 Random Glucose 86 Calcium 9.3 Total Bilirubin 0.6 AST 35 ALT 117 H Alkaline Phosphatase 86 Total Protein 5.7 L Albumin 3.1 Globulin 2.5 Albumin/Globulin Ratio 1.2 Assessment & Plan - Assessment and Plan (Free Text) Plan: Assessment 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
--- NOTE | 2018-02-25 15:41 | CT ---
PROCEDURE: CT HEAD WITHOUT CONTRAST. HISTORY: change in status; dementia? COMPARISON: 12/30/2017 TECHNIQUE: Axial computed tomography images were obtained through the head/brain without intravenous contrast. Radiation dose: Total exam DLP = 801 mGy-cm. This CT exam was performed using one or more of the following dose reduction techniques: Automated exposure control, adjustment of the mA and/or kV according to patient size, and/or use of iterative reconstruction technique. FINDINGS: HEMORRHAGE: No intracranial hemorrhage. BRAIN: No mass effect or edema. No atrophy or chronic microvascular ischemic changes. VENTRICLES: Unremarkable. No hydrocephalus. CALVARIUM: Unremarkable. PARANASAL SINUSES: Unremarkable as visualized. No significant inflammatory changes. MASTOID AIR CELLS: The previous study showed evidence of right-sided mastoiditis. The findings are now seen bilaterally. There is also partial opacification of the left middle ear cavity. OTHER FINDINGS: None. IMPRESSION: No acute intracranial findings. Bilateral mastoiditis. Left-sided otitis media
--- NOTE | 2018-02-25 15:51 | CT ---
PROCEDURE: CT Abdomen and Pelvis with contrast HISTORY: with gastrografin dye COMPARISON: 02/24/2018 TECHNIQUE: Contrast dose: 100 cc of Omni 350 Radiation dose: Total exam DLP = 463 mGy-cm. This CT exam was performed using one or more of the following dose reduction techniques: Automated exposure control, adjustment of the mA and/or kV according to patient size, and/or use of iterative reconstruction technique. FINDINGS: LOWER THORAX: There is a moderate size hiatal hernia LIVER: Unremarkable. No gross lesion or ductal dilatation. GALLBLADDER AND BILE DUCTS: Gallbladder removed PANCREAS: Unremarkable. No gross lesion or ductal dilatation. SPLEEN: Unremarkable. ADRENALS: Unremarkable. No mass. KIDNEYS AND URETERS: Unremarkable. No hydronephrosis. No solid mass. VASCULATURE: Unremarkable. No aortic aneurysm. BOWEL: As seen previously there are 2 separate ventral hernias which contains loops of small bowel. There is no evidence of obstruction. Contrast can be seen within the small bowel loop in the superiorly located hernia. This has a 3 cm ventral wall defect. Is also a 3 cm hernia inferiorly that contains a loop of small bowel without contrast opacification. Contrast can be seen within the ascending colon and the rectum APPENDIX: Normal appendix. PERITONEUM: Unremarkable. No free fluid. No free air. LYMPH NODES: Unremarkable. No enlarged lymph nodes. BLADDER: Unremarkable. REPRODUCTIVE: There is fluid in the endometrial canal BONES: No acute fracture. OTHER FINDINGS: None. IMPRESSION: Two separate ventral hernias containing loops of small bowel without evidence of obstruction. Contrast passes into the colon
[2018-02-25] MEDS: metroNIDAZOLE IV 500 mg/100 ml 500 MG/100 ML BAG IVPB SCH ×2 (16:53→21:56)
[2018-02-25] MEDS: Clotrimazole/Betamethasone Cream(15 gm) TOP SCH (16:54)
--- NOTE | 2018-02-25 19:56 | HP ---
DATE OF EXAM: HISTORY OF PRESENT ILLNESS: I have known Shahida Blackburn for a while now. I have been taking care of her at [facility]. She is there for subacute rehab. She now had some stool coming out of her vagina yesterday and it was very concerning to family and nursing and was sent to the emergency room for evaluation. She is an 82-year-old white female with a new onset of stool coming out of her vagina. She must have a fistula. Family is very upset. They want surgery done. PAST MEDICAL HISTORY: CHF, COPD, pulmonary hypertension, severe urinary incontinence, diabetes. Right now, the patient is fairly comfortable. Some mild suprapubic tenderness, worse with palpation. She does have a partial small bowel resection 8 years ago, appendectomy, kyphoplasty, cholecystectomy, ovarian cyst excision, inguinal hernia repair, coronary artery disease status post PCI with stents x2, former smoker. No alcohol. No drugs. Lives at [facility]. Presently in subacute rehab. CHF, COPD, dizziness, cataracts, renal insufficiency, diabetes, blood transfusions, anemias, multiple falls, diverticulitis, cholecystectomy, celiac disease, gastroesophageal reflux disease, umbilical hernia, urinary tract infections, anxiety, panic disorder, cardiac catheterizations, appendectomy, cholecystectomy, PTCAs, kyphoplasty. No smoker. No drinking. No drugs now. She is a former smoker. She smoked a lot. She has pulmonary hypertension, severe COPD. ALLERGIES: MORPHINE, CODEINE, HYDROMORPHONE AND . MEDICATIONS: She takes atorvastatin, Dexilant, Colace, Silvadene cream, zinc. There are many others they ordered them. REVIEW OF SYSTEMS: No acute vision or hearing changes. No chest pain or shortness of breath. Mild abdominal discomfort in the lower abdomen. Extremities are weak, but no edema. Skin; multiple areas of redness. PHYSICAL EXAMINATION: GENERAL: Alert, talking. She is pleasant. VITAL SIGNS: She has 98.3 temperature, 104 pulse, 18 respiratory rate, 129/75 blood pressure, 97% O2 sat. HEENT: Extraocular muscles are intact. Throat is moist. NECK: Supple. HEART: Regular rate. LUNGS: Decreased breath sounds bilaterally, but the most part are clear. ABDOMEN: Soft. Positive bowel sounds. They are distant. Mild lower abdominal tenderness. I tried vaginal exam in the ER, but they could not do a complete when she was uncooperative, but there was stool. She is alert. Thyroid midline. EXTREMITIES: No edema at this time in the lower extremities. NEUROLOGICAL: Speech is normal. GCS is 15 and comfortable. LABORATORY DATA: She had multiple tests. There is possible mild obstructive changes. Cannot exclude it. I will keep her n.p.o. I will order an ultrasound. There are hernias. She has a 9.1 white count, 13.2 hemoglobin, 40.7 hematocrit with 215 platelets. Sodium 140, potassium 4.2, BUN 30, creatinine 0.8. She has been on IV fluids. GFR is greater than 60, sugar is 86, calcium magnesium 1.9, total bili is 0.4. AST is 41, ALT is 126, alkaline phosphatase 82, total protein is 5.6, albumin 3.2, lipase is 60. INR is 1.049 and she will have multiple consults. She will have Surgery, Cardiopulmonary, Neurologic, Infectious Disease and I believe there is a plan for surgery on Tuesday with Dr. Ferrer and she is here for most probably a colonic vaginal fistula with stool coming out of vagina, small bowel obstruction, mild. We will also keep her n.p.o., IV fluids and continue with aggressive treatment and care. Nigel Wheeler DO MTDD
--- NOTE | 2018-02-25 20:05 | CON ---
DATE: PULMONARY CONSULTATION REASON FOR CONSULTATION: We were asked by Dr. Wheeler, planer setup operator to evaluate and treat this 82-year-old woman who was admitted to [facility] with acute problem of [id number] fistula. She also is known with severe chronic obstructive pulmonary disease and she is oxygen dependent. HISTORY OF PRESENT ILLNESS: The patient was admitted via emergency room due to complaints of her daughter who is a nurse that she was changing her mother. There was stool discharged from the vagina. She was suspected to have vaginal fistula and complaint of some mild suprapubic pain. She denied chest pain, nausea, vomiting or emesis. PAST MEDICAL HISTORY: Positive for chronic obstructive pulmonary disease, cholecystectomy, partial small bowel resection, coronary artery disease status post PCI. SOCIAL HISTORY: She is a former heavy smoker. No alcohol, no drugs. She lives in [facility]. Habits as above. ALLERGIES: NO KNOWN ALLERGIES. FAMILY HISTORY: Negative for inherited diseases. REVIEW OF SYSTEMS: Conducted by reviewing all sources: PULMONARY: See history of present illness. WRAPPER STEMMER HAND: See history of present illness. CARDIOVASCULAR: Status post PCI and stent. GASTROINTESTINAL: No current nausea, vomiting or diarrhea. ENDOCRINE: Type 2 diabetes. The rest of the systems were reviewed and found to be negative. HOME MEDICATIONS: First reviewed home medications, which included atorvastatin, Dexilant, Colace. PHYSICAL EXAMINATION VITAL SIGNS: Temperature is 98.4, respiration 22, blood pressure is 137/84, oxygen saturation is 97% on nasal cannula. HEENT: Head: Normocephalic and atraumatic. NECK: Supple with no jugular vein distentions. CARDIOVASCULAR: S1 and S2. No S3. Regular. PULMONARY: Diminished breath sounds bilaterally with no rhonchi, rales or wheezing. GASTROINTESTINAL: Soft and nontender. No organomegaly. GENITOURINARY: Deferred. EXTREMITIES: No pedal edema. SKIN: Clear with no acute skin rash. NEUROLOGIC: No focal deficits. LABORATORY DATA: Reviewed. There is mild elevation of BUN suggestive of dehydration. CT abdomen and pelvis reveals limited view of the lungs with severe emphysematous changes. There is also large hiatal hernia and colonic diverticula present. The rest of the laboratory data, her WBCs are 9.1, hemoglobin of 13.2. ASSESSMENT: 1. The patient is oxygen dependent with severe chronic obstructive pulmonary disease on a basis of smoking. 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 3. Coronary artery disease. 4. Diabetes mellitus. PLAN: The patient is very high risk for postoperative pulmonary complications. She has severe chronic obstructive pulmonary disease, oxygen dependent, former heavy smoker. In addition to that, she has coronary artery disease status post stent. She is diabetic, elderly. She also has pulmonary hypertension, managed with Revatio. This data will be reviewed by Surgery and Medicine and if the family, patient and surgeon are realizing the risks, we will clear the patient for surgery with abovenamed reservations. The arterial blood gas was requested to further assess her respiratory status. Juan Whitehead MD
--- NOTE | 2018-02-25 20:44 | CON ---
DATE: 02/25/2018 HISTORY OF PRESENT ILLNESS: This is an 82-year-old female with a past medical history of congestive heart failure, COPD, urinary incontinence, diabetes type 2, who had presented to the ER yesterday due to passing stool from her vagina as noted by her daughter who is a nurse (retired?). It is noted in the chart that the patient did not report any acute symptoms, but her daughter was concerned of a possible vaginal fistula and so she had called the PMD, Dr. Wheeler, who advised the patient to present to [facility]. PAST MEDICAL HISTORY: Congestive heart failure, COPD, urinary incontinence, diabetes type 2, hypertension, CAD s/p PCI, stents x2, HLD, moderate tricuspid regurgitation, left ventricular ejection fraction of 55% ( echo on 09/24/2017), oxygen dependent emphysema, pulmonary hypertension, GERD, anemia of chronic disease, B12 deficiency, osteoporosis and claustrophobia, celiac disease, an umbilical hernia. PAST SURGICAL HISTORY: Her last surgery was kyphoplasty of T12 in 11/2017. She also had a small bowel partial resection 8 years ago with appendectomy at that time. She has a history of ovarian cyst excision and inguinal hernia repair. ALLERGIES: MORPHINE CAUSES VOMITING, CODEINE CAUSES VOMITING, HYDROMORPHONE CAUSES VOMITING AND MYOCINS CAUSE VOMITING. SOCIAL HISTORY: She is a former smoker, quit 10 years ago, but smoked one and a half packs for 56 years. She denies alcohol and illicit drug use. She lives at [facility]. FAMILY HISTORY: Noncontributory. MEDICATIONS: Acetaminophen 650 p.o. every 4 hours p.r.n. Maalox 30 mL p.r.n., Dual nebulizer every 6 hours, alprazolam 0.5 mg b.i.d., scheduled ascorbic acid 500 mg p.o. daily, atorvastatin 10 mg daily, Lotrisone topical b.i.d., budesonide 0.5 mg, ferrous sulphate, heparin sodium 5000 units subcutaneous every 12 hours and insulin, lactobacillus, acidophilus, pantoprazole, prednisone, sildenafil, silver sulfadiazine, tramadol and zinc sulphate. PHYSICAL EXAMINATION: GENERAL: Patient appears comfortable, lying in bed, sleeping, nontoxic. Exam not performed due to patient being very angry upon awakening. I tried to explain the reason for my visit. Patient stated, "Go ahead and do what you gotta do so I can stanislav you." Consent not obtained. Exam not performed. LABORATORY DATA: On 02/25/2018, white count is normal at 8.1, hemoglobin 12.1. PT is normal at 11.9, INR 1.04 and PTT is 26, it is all normal. IMAGING: CT of the abdomen and pelvis: Impression stated endometrial appears abnormally distended with fluid. Followup exam with dedicated ultrasound recommended. Sigmoid colon abuts uterus, enteric contrast has not reached distal colon limiting evaluation. Left-sided ventral hernia containing the mid transverse colon. Left colon is relatively collapsed. Cannot exclude mild obstructive changes. Inferior to this is a small right-sided ventral hernia containing small bowel loop without evidence of obstruction. She has a large hiatal hernia. Colonic diverticula. ASSESSMENT AND PLAN: This is an 82-year-old with multiple chronic medical conditions who was sent to the hospital for passing fecal matter through the vagina per her daughter. It should be noted that on the exam of the emergency department physician, "there was vaginal discharge noted (stool-appearing discharge grossly apparent). Active discharge from possible fistula observed on speculum exam although the exam was limited due to patient's discomfort." I recommend that the patient undergo an ultrasound of the pelvis today to better evaluate the lining of the uterus as the fluid may simply be due to cervical stenosis. Patient would need to undergo a dilation and curettage or an endometrial biopsy with the Pipelle. It turns out the patient also refused the ultrasound of her pelvis in any case. RECOMMENDATION: I spoke with Dr. Ferrer prior to seeing the patient and it would be recommended that the patient have an endometrial sampling with the Pipelle or with a dilation and curettage if and when she becomes medically prepared for surgery. Dr. Ferrer explained to me that she may have a fistula between her sigmoid colon and vagina that may be repaired surgically. Lety Anand MD MTDOfelia
[2018-02-25] MEDS ORDERED: Ciprofloxacin 400mg/200ml D5W 400 MG/200 ML BAG IVPB SCH ×2 (22:00)
--- NOTE | 2018-02-25 23:48 | CON ---
DATE: 02/25/2018 HISTORY OF PRESENT ILLNESS: This is an 82-year-old female with past medical history of COPD, hypertension, coronary artery disease, osteoporosis and came to the hospital and feels confused and called to evaluate the patient. PAST MEDICAL HISTORY: Dementia, dizziness, chronic kidney disease, diabetes and diverticulitis, gastroesophageal reflux, UTI. ALLERGIES: TO MORPHINE, CODEINE. PHYSICAL EXAMINATION: VITAL SIGNS: Blood pressure 116/62. HEENT: Normocephalic, atraumatic. NECK: Supple. NEUROLOGIC: Awake, orientated to self and place. The patient is not cooperative. Spontaneous movement of the extremities noted. Deep tendon reflexes 1+. Plantars downgoing. Sensory appears intact. Cerebellar gait deferred. IMPRESSION: Dementia, intermittent confusional state and rule out vaginal fistula because of bleed, end-stage chronic obstructive pulmonary disease, hypertension, coronary artery disease. Infectious Disease is on the case. Workup in progress. Continue present management. We will follow up. William Grady MD
[2018-02-26] MEDS: Pantoprazole 40 mg EC Tab PO SCH (05:15)
[2018-02-26] MEDS: metroNIDAZOLE IV 500 mg/100 ml 500 MG/100 ML BAG IVPB SCH ×3 (05:15→22:32)
[2018-02-26 07:11] LABS: ALB/GLOB RATIO 1.3 (1.1-1.8); ALT/SGPT 103 U/L (7-56); AST/SGOT 42 U/L (14-36); BLOOD UREA NITROGEN 17 mg/dL (7-21); CALCIUM 9.2 mg/dL (8.4-10.5); GFR AFRICAN-AMERICAN > 60; GFR NON-AFRICAN AMERICAN > 60
[2018-02-26 07:26] LABS: HEMOGLOBIN 11.1 g/dL (12.0-16.0); MEAN CELL VOLUME 94.8 fl (80.0-105.0); MEAN CORPUSCULAR HEMOGLOBIN 30.5 pg (25.0-35.0); MEAN CORPUSCULAR HGB CONC 32.2 g/dl (31.0-37.0); MEAN PLATELET VOLUME 11.6 fl (7.0-11.0); RBC 3.64 10^6/uL (3.5-6.1); RED CELL DISTRIBUTION WIDTH 14.8 % (11.5-14.5); WHITE BLOOD COUNT 6.5 10^3/ul (4.5-11.0)
[2018-02-26] MEDS: Insulin Reg-HIGH-Coverage SC SCH ×4 (07:36→22:47)
[2018-02-26] MEDS: Budesonide 0.5 mg/2 ml Inhal Susp UD IH SCH ×2 (07:56→19:32)
[2018-02-26] MEDS: Albuterol-Ipratrop 3 mg / 0.5 (3 ml) UD IH SCH ×3 (07:56→19:31)
--- NOTE | 2018-02-26 07:56 | CP.PCM.PCO ---
Physician Communication Note - Physician Communication Note Physician Communication Note: Ab started/?BE to elucidate fistula/?Hold Plavix
--- NOTE | 2018-02-26 09:46 | CP.PCM.PN ---
Subjective - Date & Time of Evaluation Date of Evaluation: 02/26/18 Time of Evaluation: 09:00 - Subjective Subjective: Patient seen and examined a bedside this AM. Denies any pain, nausea, vomiting, fevers, chills or any other symptoms. Patient states she doesn't know why her children wanted her to come to the hospital as she is unaware of any discharge from her vagina. Objective - Vital Signs/Intake and Output Vital Signs (last 24 hours): Temp Pulse Resp BP Pulse Ox 98.6 F 95 H 20 100/56 L 98 02/26/18 06:00 02/26/18 06:00 02/26/18 06:00 02/26/18 06:00 02/26/18 06:00 Intake and Output: 02/26/18 02/26/18 06:59 18:59 Intake Total 180 Balance 180 - Medications Medications: Current Medications Acetaminophen (Tylenol 325mg Tab) 650 mg PO Q4H PRN PRN Reason: Pain, moderate (4-7) Al Hydrox/Mg Hydrox/Simethicone (Maalox Plus 30 Ml) 30 ml PO Q4 PRN PRN Reason: Indigestion / Heartburn Albuterol/Ipratropium (Duoneb 3 Mg/0.5 Mg (3 Ml) Ud) 3 ml IH [id number] [facility] Last Admin: 02/26/18 07:56 Dose: 3 ml Alprazolam (Xanax) 0.5 mg PO BID [facility] PRN Reason: Protocol Stop: 03/04/18 10:01 Last Admin: 02/25/18 17:22 Dose: 0.5 mg Ascorbic Acid (Vitamin C 500 Mg Tab) 500 mg PO DAILY [facility] Last Admin: 02/25/18 10:33 Dose: 500 mg Atorvastatin Calcium (Lipitor) 10 mg PO DAILY [facility] Last Admin: 02/25/18 10:31 Dose: 10 mg Betamethasone/Clotrimazole (Lotrisone) 0 gm TOP BID [facility] Last Admin: 02/25/18 16:54 Dose: Not Given Budesonide (Pulmicort Respules) 0.5 mg IH [id number] [facility] Last Admin: 02/26/18 07:56 Dose: 0.5 mg Donepezil HCl (Aricept) 10 mg PO HS [facility] Last Admin: 02/25/18 21:56 Dose: 10 mg Ferrous Sulfate (Feosol) 324 mg PO TID [facility] Last Admin: 02/25/18 17:21 Dose: 324 mg Heparin Sodium (Porcine) (Heparin) 5,000 units SC Q12 [facility] PRN Reason: Protocol Last Admin: 02/25/18 21:57 Dose: 5,000 units Metronidazole (Flagyl) 500 mg in 100 mls @ 100 mls/hr IVPB Q8 [facility] PRN Reason: Protocol Last Admin: 02/26/18 05:15 Dose: 100 mls/hr Ceftriaxone Sodium (Rocephin 1 Gram Ivpb) 1 gm in 100 mls @ 100 mls/hr IVPB DAILY [facility] PRN Reason: Protocol Insulin Human Regular (Humulin R High) 0 units SC ACHS [facility] PRN Reason: Protocol Last Admin: 02/26/18 07:36 Dose: Not Given Lactobacillus Acidophilus (Bacid Acidophilus) 1 cap PO BID [facility] Last Admin: 02/25/18 17:21 Dose: 1 cap Pantoprazole Sodium (Protonix Ec Tab) 40 mg PO 0600 [facility] Last Admin: 02/26/18 05:15 Dose: 40 mg Prednisone (Prednisone Tab) 2.5 mg PO DAILY [facility] Last Admin: 02/25/18 10:31 Dose: 2.5 mg Sildenafil Citrate (Revatio) 20 mg PO BID [facility] Last Admin: 02/25/18 17:21 Dose: 20 mg Silver Sulfadiazine (Silvadene 1% 25 Gm) 1 gm TP DAILY PRN PRN Reason: Rash Tramadol HCl (Ultram) 50 mg PO TID PRN PRN Reason: pain Zinc Sulfate (Zinc Sulfate 220 Mg Cap) 220 mg PO DAILY [facility] Last Admin: 02/25/18 10:34 Dose: 220 mg - Labs Labs: 02/26/18 06:15 02/26/18 06:15 PT 11.9 SECONDS (9.4-12.5) 02/24/18 21:06 INR 1.04 (0.93-1.08) 02/24/18 21:06 APTT 26.0 Seconds (25.1-36.5) 02/24/18 21:06 - Constitutional Appears: Well, Non-toxic, No Acute Distress - Head Exam Head Exam: ATRAUMATIC, NORMOCEPHALIC - Eye Exam Eye Exam: Normal appearance. absent: Scleral icterus - ENT Exam ENT Exam: Mucous Membranes Moist - Respiratory Exam Respiratory Exam: NORMAL BREATHING PATTERN. absent: Accessory Muscle Use, Respiratory Distress - GI/Abdominal Exam GI & Abdominal Exam: Soft. absent: Distended, Tenderness - Rectal Exam Rectal Exam: Deferred - Extremities Exam Extremities Exam: absent: Calf Tenderness, Pedal Edema, Tenderness - Neurological Exam Neurological Exam: Alert, Awake, Oriented x3 - Psychiatric Exam Psychiatric exam: Normal Affect, Normal Mood - Skin Skin Exam: Dry, Normal Color, Warm Assessment and Plan - Assessment and Plan (Free Text) Assessment: 82F with vaginal discharge with concern for rectovaginal fistula Plan: Continue to trend labs--this AM WBC wnl Continue to monitor vitals F/U gyneocology and ID recs--patient needs further work up of uterine abnormalities seen on CT scan Barium enema tomorrow to evaluate for fistula Further discussions will be had with patient and patient's family regarding wishes--patient is a very poor surgical candidate and risk and benefits of any intervention must be considered CLD and mag citrate to prep for the barium enema Rosita Adams, PGY2
[2018-02-26] MEDS: cefTRIAXone 1 gm 1 GM/100 ML BAG IVPB SCH (09:53)
[2018-02-26] MEDS: Sildenafil 20 MG TAB PO SCH ×2 (09:54→17:15)
[2018-02-26] MEDS: Lactobacillus Acidophilus 500 MU Cap PO SCH ×2 (09:54→17:14)
[2018-02-26] MEDS: Clotrimazole/Betamethasone Cream(15 gm) TOP SCH ×2 (09:55→17:13)
--- NOTE | 2018-02-26 11:42 | CP.PCM.PN ---
<Miguel Jorge - Last Filed: 02/26/18 11:39> Subjective - Date & Time of Evaluation Date of Evaluation: 02/26/18 Time of Evaluation: 11:39 - Subjective Subjective: Patient seen and examined this AM. NO acute events reported overnight. Care plan discussed with patient. Patient denies chest pain, shortness of breath, diarrhea, fever, nausea, vomiting, weakness, rectovaginal pain. Objective - Vital Signs/Intake and Output Vital Signs (last 24 hours): Temp Pulse Resp BP Pulse Ox 98.6 F 95 H 20 100/56 L 98 02/26/18 06:00 02/26/18 06:00 02/26/18 06:00 02/26/18 06:00 02/26/18 06:00 Intake and Output: 02/26/18 02/26/18 06:59 18:59 Intake Total 180 Balance 180 - Medications Medications: Current Medications Acetaminophen (Tylenol 325mg Tab) 650 mg PO Q4H PRN PRN Reason: Pain, moderate (4-7) Al Hydrox/Mg Hydrox/Simethicone (Maalox Plus 30 Ml) 30 ml PO Q4 PRN PRN Reason: Indigestion / Heartburn Albuterol/Ipratropium (Duoneb 3 Mg/0.5 Mg (3 Ml) Ud) 3 ml IH [id number] [facility] Last Admin: 02/26/18 07:56 Dose: 3 ml Alprazolam (Xanax) 0.5 mg PO BID [facility] PRN Reason: Protocol Stop: 03/04/18 10:01 Last Admin: 02/26/18 09:54 Dose: 0.5 mg Ascorbic Acid (Vitamin C 500 Mg Tab) 500 mg PO DAILY [facility] Last Admin: 02/26/18 09:54 Dose: 500 mg Atorvastatin Calcium (Lipitor) 10 mg PO DAILY [facility] Last Admin: 02/26/18 09:54 Dose: 10 mg Betamethasone/Clotrimazole (Lotrisone) 0 gm TOP BID [facility] Last Admin: 02/26/18 09:55 Dose: Not Given Budesonide (Pulmicort Respules) 0.5 mg IH [id number] [facility] Last Admin: 02/26/18 07:56 Dose: 0.5 mg Donepezil HCl (Aricept) 10 mg PO [facility] Last Admin: 02/25/18 21:56 Dose: 10 mg Ferrous Sulfate (Feosol) 324 mg PO TID [facility] Last Admin: 02/26/18 09:54 Dose: 324 mg Heparin Sodium (Porcine) (Heparin) 5,000 units SC Q12 [facility] PRN Reason: Protocol Last Admin: 02/26/18 09:53 Dose: 5,000 units Metronidazole (Flagyl) 500 mg in 100 mls @ 100 mls/hr IVPB Q8 [facility] PRN Reason: Protocol Last Admin: 02/26/18 05:15 Dose: 100 mls/hr Ceftriaxone Sodium (Rocephin 1 Gram Ivpb) 1 gm in 100 mls @ 100 mls/hr IVPB DAILY [facility] PRN Reason: Protocol Last Admin: 02/26/18 09:53 Dose: 100 mls/hr Insulin Human Regular (Humulin R High) 0 units SC ACHS [facility] PRN Reason: Protocol Last Admin: 02/26/18 07:36 Dose: Not Given Lactobacillus Acidophilus (Bacid Acidophilus) 1 cap PO BID [facility] Last Admin: 02/26/18 09:54 Dose: 1 cap Pantoprazole Sodium (Protonix Ec Tab) 40 mg PO 0600 [facility] Last Admin: 02/26/18 05:15 Dose: 40 mg Prednisone (Prednisone Tab) 2.5 mg PO DAILY [facility] Last Admin: 02/26/18 09:54 Dose: 2.5 mg Sildenafil Citrate (Revatio) 20 mg PO BID [facility] Last Admin: 02/26/18 09:54 Dose: 20 mg Silver Sulfadiazine (Silvadene 1% 25 Gm) 1 gm TP DAILY PRN PRN Reason: Rash Tramadol HCl (Ultram) 50 mg PO TID PRN PRN Reason: pain Zinc Sulfate (Zinc Sulfate 220 Mg Cap) 220 mg PO DAILY [facility] Last Admin: 02/26/18 09:54 Dose: 220 mg - Labs Labs: 02/26/18 06:15 02/26/18 06:15 PT 11.9 SECONDS (9.4-12.5) 02/24/18 21:06 INR 1.04 (0.93-1.08) 02/24/18 21:06 APTT 26.0 Seconds (25.1-36.5) 02/24/18 21:06 - Head Exam Head Exam: ATRAUMATIC, NORMAL INSPECTION, NORMOCEPHALIC - Eye Exam Eye Exam: EOMI, PERRL. absent: Scleral icterus - ENT Exam ENT Exam: Mucous Membranes Moist Additional comments: Poor dentation - Neck Exam Neck Exam: Full ROM - Respiratory Exam Respiratory Exam: Clear to Ausculation Bilateral, NORMAL BREATHING PATTERN. absent: Rales, Rhonchi, Wheezes - Cardiovascular Exam Cardiovascular Exam: REGULAR RHYTHM, +S1, +S2 - GI/Abdominal Exam GI & Abdominal Exam: Soft, Normal Bowel Sounds. absent: Firm, Tenderness - Extremities Exam Extremities Exam: Normal Capillary Refill. absent: Pedal Edema, Tenderness - Neurological Exam Neurological Exam: Alert, Awake, Oriented x3 Additional comments: motor and sensory grossly intact, able to move all four extremities past midline - Psychiatric Exam Psychiatric exam: Normal Affect, Normal Mood - Skin Skin Exam: Dry, Warm Assessment and Plan - Assessment and Plan (Free Text) Assessment: 82 year old female with past medical history of severe COPD, HTN, pulmonary HTN , CHF, dyslipidemia, recurrent UTI who is admitted for fecal discharge from vaginal canal. Abd CT showing hernia and possible colovaginal fistula. General surgery, neurology, infectious disease, cardiology, pulmonology consulted. Plan: COPD: - Severe COPD - Continue home medications, revatio, steroids, pulmicort - Duonebs - Maintain SaO2 >92% Transaminitis - Elevated ALT>AST - Hepatitis panel check - Alk phos wnl - Abd/Pelvis CT showing no gross lesion or ductal dilation of liver Colovaginal Fistula - Abd/Pelvis CT: Endometrial appears abnormally distended with fluid. Followup evaluation with dedicated ultrasound recommended. Clinical evaluation necessary. Sigmoid colon abuts uterus, enteric contrast has not reached distal colon limiting evaluation. Left-sided ventral hernia, containing the mid transverse colon. Left colon is relatively collapsed. Cannot exclude mild obstructive changes. Inferior to this is a small right- sided ventral hernia containing small bowel loop without evidence of obstruction. Correlate clinically to exclude incarceration. Appearance is similar to prior study. Again noted in the pelvis is a 2 cm cystic density posteriorly abutting small bowel loops, uncertain etiology, appearance not significantly changed. Large hiatal hernia. Colonic diverticula. Interval grade 1 compression fracture of L1. Vertebroplasty with residual compression deformity of T12 again noted. Marked emphysematous changes. - General surgery consulted, recs as follows - Sigmoid fistula with vagina - Monitor labs, may benefit from barium enema or EUA after pulmonary and cardiac clearance - VERONA/[employer]ER consulted - Requesting Cardiac and Pulmonary clearance - endometrial sampling with Pipelle or D and C when medically prepared for surgery - ID consulted - Trevon Potter - Monitor clinically - Pulmonology - very high risk for postoperative pulmonary complications, severe COPD, CAD s/p stent, clear for surgery - Follow up GS and FISH SEINER recs/plan ?dementia - Neuro consulted - dementia, intermittent confusional state and rule out vaginal fistula - continue current management, plan to follow up Hx of dyslipidemia - Continue home Lipitor GI/DVT ppx: - Protonix - Heparin Case and plan discussed with attending <Blaine Melo - Last Filed: 02/26/18 15:44> Objective - Vital Signs/Intake and Output Vital Signs (last 24 hours): Temp Pulse Resp BP Pulse Ox 98.6 F 95 H 20 100/56 L 98 02/26/18 06:00 02/26/18 06:00 02/26/18 06:00 02/26/18 06:00 02/26/18 06:00 Intake and Output: 02/26/18 02/26/18 06:59 18:59 Intake Total 180 300 Output Total 600 Balance 180 -300 - Medications Medications: Current Medications Acetaminophen (Tylenol 325mg Tab) 650 mg PO Q4H PRN PRN Reason: Pain, moderate (4-7) Al Hydrox/Mg Hydrox/Simethicone (Maalox Plus 30 Ml) 30 ml PO Q4 PRN PRN Reason: Indigestion / Heartburn Albuterol/Ipratropium (Duoneb 3 Mg/0.5 Mg (3 Ml) Ud) 3 ml IH [id number] [facility] Last Admin: 02/26/18 14:04 Dose: 3 ml Alprazolam (Xanax) 0.5 mg PO BID [facility] PRN Reason: Protocol Stop: 03/04/18 10:01 Last Admin: 02/26/18 09:54 Dose: 0.5 mg Ascorbic Acid (Vitamin C 500 Mg Tab) 500 mg PO DAILY [facility] Last Admin: 02/26/18 09:54 Dose: 500 mg Atorvastatin Calcium (Lipitor) 10 mg PO DAILY [facility] Last Admin: 02/26/18 09:54 Dose: 10 mg Betamethasone/Clotrimazole (Lotrisone) 0 gm TOP BID [facility] Last Admin: 02/26/18 09:55 Dose: Not Given Budesonide (Pulmicort Respules) 0.5 mg IH [id number] [facility] Last Admin: 02/26/18 07:56 Dose: 0.5 mg Donepezil HCl (Aricept) 10 mg PO HS [facility] Last Admin: 02/25/18 21:56 Dose: 10 mg Ferrous Sulfate (Feosol) 324 mg PO TID [facility] Last Admin: 02/26/18 14:11 Dose: Not Given Heparin Sodium (Porcine) (Heparin) 5,000 units SC Q12 [facility] PRN Reason: Protocol Last Admin: 02/26/18 09:53 Dose: 5,000 units Metronidazole (Flagyl) 500 mg in 100 mls @ 100 mls/hr IVPB Q8 [facility] PRN Reason: Protocol Last Admin: 02/26/18 14:11 Dose: 100 mls/hr Ceftriaxone Sodium (Rocephin 1 Gram Ivpb) 1 gm in 100 mls @ 100 mls/hr IVPB DAILY [facility] PRN Reason: Protocol Last Admin: 02/26/18 09:53 Dose: 100 mls/hr Insulin Human Regular (Humulin R High) 0 units SC ACHS [facility] PRN Reason: Protocol Last Admin: 02/26/18 12:32 Dose: Not Given Lactobacillus Acidophilus (Bacid Acidophilus) 1 cap PO BID [facility] Last Admin: 02/26/18 09:54 Dose: 1 cap Pantoprazole Sodium (Protonix Ec Tab) 40 mg PO 0600 [facility] Last Admin: 02/26/18 05:15 Dose: 40 mg Prednisone (Prednisone Tab) 2.5 mg PO DAILY [facility] Last Admin: 02/26/18 09:54 Dose: 2.5 mg Sildenafil Citrate (Revatio) 20 mg PO BID [facility] Last Admin: 02/26/18 09:54 Dose: 20 mg Silver Sulfadiazine (Silvadene 1% 25 Gm) 1 gm TP DAILY PRN PRN Reason: Rash Tramadol HCl (Ultram) 50 mg PO TID PRN PRN Reason: pain Zinc Sulfate (Zinc Sulfate 220 Mg Cap) 220 mg PO DAILY [facility] Last Admin: 02/26/18 09:54 Dose: 220 mg - Labs Labs: 02/26/18 06:15 02/26/18 06:15 PT 11.9 SECONDS (9.4-12.5) 02/24/18 21:06 INR 1.04 (0.93-1.08) 02/24/18 21:06 APTT 26.0 Seconds (25.1-36.5) 02/24/18 21:06 Attending/Attestation - Attestation I have personally seen and examined this patient.: Yes I have fully participated in the care of the patient.: Yes I have reviewed all pertinent clinical information, including history, physical exam and plan: Yes Notes (Text): 02/26/18 15:35 Medical record note made by the resident after discussion with my direction and input after the patient was personally seen and examined by me. I have reviewed the chart and agree that the record accurately reflects by personal performance of the history, physical exam, data review, and medical decision-making, in the course for the patient. I have also personally directed the plan of care. 82 yrs female with history of CAD ,SP Cardiac stents ,COPD, pulmonary HTN, chronic hypoxic Respiratory failure on home oxygen, , HTN, Hyperlipidemia and osteoporosis is admitted with Possible colo-vaginal fistula.Patient was evaluated by Surgery and plan if for Barium enema for further evaluation.Patient was evaluated by OBGYN ,Pelvic USG and D/C was recommended, which patient is refusing at this time.This was discussed in detail with patient and patient daughter over the phone.Patient is on IV Rocephin and Flagyl as per ID. Pulmonary evaluation is noted, high risk for surgery as per Pulmonary. Mildly elevated transaminase , etiology is unclear, level are coming down, we will monitor. COPD is stable, patient is not wheezing, she is on base line home oxygen via nasal canula. Patient case was discussed with who will take over patient care from Tuesday as requested by family. Management plan was discussed in detail with patient and daughter . Education was provided. 02/26/18 15:43
[2018-02-26] MEDS ORDERED: Magnesium Citrate Oral SOL (300 ml) PO ONE (12:55)
--- NOTE | 2018-02-26 13:56 | CP.PCM.PN ---
Subjective - Date & Time of Evaluation Date of Evaluation: 02/26/18 Time of Evaluation: 10:50 - Subjective Subjective: No fevers, not in distress. No abdominal pain. Objective - Vital Signs/Intake and Output Vital Signs (last 24 hours): Temp Pulse Resp BP Pulse Ox 98.6 F 95 H 20 100/56 L 98 02/26/18 06:00 02/26/18 06:00 02/26/18 06:00 02/26/18 06:00 02/26/18 06:00 Intake and Output: 02/26/18 02/26/18 06:59 18:59 Intake Total 180 Balance 180 - Medications Medications: Current Medications Acetaminophen (Tylenol 325mg Tab) 650 mg PO Q4H PRN PRN Reason: Pain, moderate (4-7) Al Hydrox/Mg Hydrox/Simethicone (Maalox Plus 30 Ml) 30 ml PO Q4 PRN PRN Reason: Indigestion / Heartburn Albuterol/Ipratropium (Duoneb 3 Mg/0.5 Mg (3 Ml) Ud) 3 ml IH [id number] [facility] Last Admin: 02/26/18 07:56 Dose: 3 ml Alprazolam (Xanax) 0.5 mg PO BID [facility] PRN Reason: Protocol Stop: 03/04/18 10:01 Last Admin: 02/25/18 17:22 Dose: 0.5 mg Ascorbic Acid (Vitamin C 500 Mg Tab) 500 mg PO DAILY [facility] Last Admin: 02/25/18 10:33 Dose: 500 mg Atorvastatin Calcium (Lipitor) 10 mg PO DAILY [facility] Last Admin: 02/25/18 10:31 Dose: 10 mg Betamethasone/Clotrimazole (Lotrisone) 0 gm TOP BID [facility] Last Admin: 02/25/18 16:54 Dose: Not Given Budesonide (Pulmicort Respules) 0.5 mg IH [id number] [facility] Last Admin: 02/26/18 07:56 Dose: 0.5 mg Donepezil HCl (Aricept) 10 mg PO HS [facility] Last Admin: 02/25/18 21:56 Dose: 10 mg Ferrous Sulfate (Feosol) 324 mg PO TID [facility] Last Admin: 02/25/18 17:21 Dose: 324 mg Heparin Sodium (Porcine) (Heparin) 5,000 units SC Q12 [facility] PRN Reason: Protocol Last Admin: 02/25/18 21:57 Dose: 5,000 units Metronidazole (Flagyl) 500 mg in 100 mls @ 100 mls/hr IVPB Q8 [facility] PRN Reason: Protocol Last Admin: 02/26/18 05:15 Dose: 100 mls/hr Ceftriaxone Sodium (Rocephin 1 Gram Ivpb) 1 gm in 100 mls @ 100 mls/hr IVPB DAILY [facility] PRN Reason: Protocol Insulin Human Regular (Humulin R High) 0 units SC ACHS [facility] PRN Reason: Protocol Last Admin: 02/26/18 07:36 Dose: Not Given Lactobacillus Acidophilus (Bacid Acidophilus) 1 cap PO BID [facility] Last Admin: 02/25/18 17:21 Dose: 1 cap Pantoprazole Sodium (Protonix Ec Tab) 40 mg PO 0600 [facility] Last Admin: 02/26/18 05:15 Dose: 40 mg Prednisone (Prednisone Tab) 2.5 mg PO DAILY [facility] Last Admin: 02/25/18 10:31 Dose: 2.5 mg Sildenafil Citrate (Revatio) 20 mg PO BID [facility] Last Admin: 02/25/18 17:21 Dose: 20 mg Silver Sulfadiazine (Silvadene 1% 25 Gm) 1 gm TP DAILY PRN PRN Reason: Rash Tramadol HCl (Ultram) 50 mg PO TID PRN PRN Reason: pain Zinc Sulfate (Zinc Sulfate 220 Mg Cap) 220 mg PO DAILY [facility] Last Admin: 02/25/18 10:34 Dose: 220 mg - Labs Labs: 02/26/18 06:15 02/26/18 06:15 PT 11.9 SECONDS (9.4-12.5) 02/24/18 21:06 INR 1.04 (0.93-1.08) 02/24/18 21:06 APTT 26.0 Seconds (25.1-36.5) 02/24/18 21:06 - Constitutional Appears: Chronically Ill - Head Exam Head Exam: NORMAL INSPECTION - Neck Exam Neck Exam: absent: Meningismus - Respiratory Exam Respiratory Exam: Decreased Breath Sounds - Cardiovascular Exam Cardiovascular Exam: +S1, +S2 - GI/Abdominal Exam GI & Abdominal Exam: Soft. absent: Tenderness Assessment and Plan - Assessment and Plan (Free Text) Plan: Assessment R/O entero-vaginal fistula, R/O endometrial abnormality S/P systemic inflammatory response syndrome, S/P severe sepsis with hypoxic respiratory failure S/P VDRF, S/P HCAP, new onset, right lower lobe on top of acute bronchitis chronic CHF end-stage COPD pulmonary HTN CAD dyslipidemia Plan continue Rocephin and Flagyl day 2; reviewed CT A/P - as discussed with Dr. Ferrer, patient for barium enema to see if there is a fistula follow up Swim In[employer] follow up regarding Endometrial thickening as seen on the CT A/P will continue to monitor clinically
[2018-02-26] MEDS: Alum-Mag Hydrox-Simethicone Susp (30 mL) PO PRN (20:26)
[2018-02-27] MEDS: Albuterol-Ipratrop 3 mg / 0.5 (3 ml) UD IH SCH ×4 (01:45→21:00)
[2018-02-27 05:57] LABS: BASO # 0.02 K/mm3 (0.0-2.0); BASO % 0.3 % (0.0-3.0); EOS # 0.1 (0.0-0.7); GRAN # 4.52 (1.4-6.5); GRAN % 74.7 % (50.0-68.0); HEMOGLOBIN 10.2 g/dL (12.0-16.0); LYMPH # 0.9 (1.2-3.4); LYMPH % 14.7 % (22.0-35.0); MEAN CELL VOLUME 94.6 fl (80.0-105.0); MEAN CORPUSCULAR HEMOGLOBIN 30.6 pg (25.0-35.0); MEAN CORPUSCULAR HGB CONC 32.4 g/dl (31.0-37.0); MEAN PLATELET VOLUME 11.5 fl (7.0-11.0); MONO # 0.5 (0.1-0.6); MONO % 8.3 % (1.0-6.0); RBC 3.33 10^6/uL (3.5-6.1); WHITE BLOOD COUNT 6.1 10^3/ul (4.5-11.0)
[2018-02-27 06:34] LABS: LDL CHOLESTEROL 52 mg/dL (0-129)
[2018-02-27] MEDS: metroNIDAZOLE IV 500 mg/100 ml 500 MG/100 ML BAG IVPB SCH ×3 (06:35→21:57)
[2018-02-27 06:38] LABS: FREE T4 1.21 ng/dL (0.78-2.19); T4 7.7 ug/dL (5.5-11.0)
[2018-02-27] MEDS: Lactated Ringer's 1,000 ML IV SCH ×2 (06:40→20:00)
[2018-02-27 07:06] LABS: ALB/GLOB RATIO 1.3 (1.1-1.8); ALBUMIN 2.8 g/dL (3.0-4.8); ALT/SGPT 84 U/L (7-56); AST/SGOT 27 U/L (14-36); BILIRUBIN,DIRECT 0.1 mg/dL (0.0-0.4); BLOOD UREA NITROGEN 17 mg/dL (7-21); CALCIUM 8.9 mg/dL (8.4-10.5); GFR AFRICAN-AMERICAN > 60; GFR NON-AFRICAN AMERICAN > 60; HDL CHOLESTEROL 31 mg/dL (29-60)
[2018-02-27] MEDS: Pantoprazole 40 mg EC Tab PO SCH (07:54)
[2018-02-27] MEDS: Budesonide 0.5 mg/2 ml Inhal Susp UD IH SCH ×2 (07:59→21:00)
--- NOTE | 2018-02-27 08:37 | CP.PCM.PN ---
<Ferny Bullard - Last Filed: 02/27/18 08:43> Subjective - Date & Time of Evaluation Date of Evaluation: 02/27/18 Time of Evaluation: 07:25 - Subjective Subjective: Ferny Bullard PGY1 Surgical Progress Note for Dr. Ferrer Patient was seen and examined at bedside. she has no complaints but is interested in getting out of bed. denies vaginal discharge, fevers/chills, n/v Objective - Vital Signs/Intake and Output Vital Signs (last 24 hours): Temp Pulse Resp BP Pulse Ox 99.1 F 117 H 20 106/49 L 96 02/26/18 17:26 02/26/18 17:26 02/26/18 17:26 02/26/18 17:26 02/26/18 17:26 Intake and Output: 02/27/18 02/27/18 06:59 18:59 Intake Total 360 Balance 360 - Medications Medications: Current Medications Acetaminophen (Tylenol 325mg Tab) 650 mg PO Q4H PRN PRN Reason: Pain, moderate (4-7) Acetaminophen (Tylenol 325mg Tab) 650 mg PO Q6 PRN PRN Reason: TEMP>=99.5F Acetaminophen (Tylenol 650 Mg Supp) 650 mg RC Q6H PRN PRN Reason: TEMP>=99.5F Al Hydrox/Mg Hydrox/Simethicone (Maalox Plus 30 Ml) 30 ml PO Q4 PRN PRN Reason: Indigestion / Heartburn Last Admin: 02/26/18 20:26 Dose: 30 ml Albuterol/Ipratropium (Duoneb 3 Mg/0.5 Mg (3 Ml) Ud) 3 ml IH [id number] [facility] Last Admin: 02/27/18 07:59 Dose: 3 ml Alprazolam (Xanax) 0.5 mg PO BID PRN; Protocol PRN Reason: Anxiety Stop: 03/04/18 10:01 Ascorbic Acid (Vitamin C 500 Mg Tab) 500 mg PO DAILY [facility] Last Admin: 02/26/18 09:54 Dose: 500 mg Atorvastatin Calcium (Lipitor) 10 mg PO DAILY [facility] Last Admin: 02/26/18 09:54 Dose: 10 mg Betamethasone/Clotrimazole (Lotrisone) 0 gm TOP BID [facility] Last Admin: 02/26/18 17:13 Dose: Not Given Budesonide (Pulmicort Respules) 0.5 mg IH [id number] [facility] Last Admin: 02/27/18 07:59 Dose: 0.5 mg Diltiazem HCl (Cardizem) 30 mg PO Q8 [facility] Last Admin: 02/27/18 07:57 Dose: Not Given Docusate Sodium (Colace) 100 mg PO TID [facility] Donepezil HCl (Aricept) 10 mg PO HS [facility] Last Admin: 02/26/18 22:31 Dose: 10 mg Heparin Sodium (Porcine) (Heparin) 5,000 units SC Q12 [facility] PRN Reason: Protocol Last Admin: 02/26/18 22:32 Dose: 5,000 units Metronidazole (Flagyl) 500 mg in 100 mls @ 100 mls/hr IVPB Q8 [facility] PRN Reason: Protocol Last Admin: 02/27/18 06:35 Dose: 100 mls/hr Ceftriaxone Sodium (Rocephin 1 Gram Ivpb) 1 gm in 100 mls @ 100 mls/hr IVPB DAILY [facility] PRN Reason: Protocol Last Admin: 02/26/18 09:53 Dose: 100 mls/hr Lactated Ringer's (Lactated Ringer's) 1,000 mls @ 60 mls/hr IV .[id number] [facility] Last Admin: 02/27/18 06:40 Dose: 60 mls/hr Insulin Human Regular (Humulin R High) 0 units SC ACHS [facility] PRN Reason: Protocol Last Admin: 02/26/18 22:47 Dose: Not Given Lactobacillus Acidophilus (Bacid Acidophilus) 1 cap PO BID [facility] Last Admin: 02/26/18 17:14 Dose: 1 cap Ondansetron HCl (Zofran Inj) 4 mg IVP Q4H PRN PRN Reason: Nausea/Vomiting Pantoprazole Sodium (Protonix Ec Tab) 40 mg PO 0600 [facility] Last Admin: 02/27/18 07:54 Dose: Not Given Polyethylene Glycol (Miralax) 17 gm PO BID [facility] Prednisone (Prednisone Tab) 2.5 mg PO DAILY [facility] Last Admin: 02/26/18 09:54 Dose: 2.5 mg Sildenafil Citrate (Revatio) 20 mg PO BID [facility] Last Admin: 02/26/18 17:15 Dose: 20 mg Silver Sulfadiazine (Silvadene 1% 25 Gm) 1 gm TP DAILY PRN PRN Reason: Rash Tramadol HCl (Ultram) 50 mg PO TID PRN PRN Reason: pain Last Admin: 02/26/18 18:20 Dose: 50 mg Zinc Sulfate (Zinc Sulfate 220 Mg Cap) 220 mg PO DAILY [facility] Last Admin: 02/26/18 09:54 Dose: 220 mg - Labs Labs: 02/27/18 05:00 02/27/18 05:00 PT 11.9 SECONDS (9.4-12.5) 02/24/18 21:06 INR 1.04 (0.93-1.08) 02/24/18 21:06 APTT 26.0 Seconds (25.1-36.5) 02/24/18 21:06 - Constitutional Appears: Well, Non-toxic, No Acute Distress - Head Exam Head Exam: NORMAL INSPECTION - Eye Exam Eye Exam: Normal appearance - ENT Exam ENT Exam: Mucous Membranes Moist - Neck Exam Neck Exam: Normal Inspection - Respiratory Exam Respiratory Exam: NORMAL BREATHING PATTERN - Cardiovascular Exam Cardiovascular Exam: RRR - GI/Abdominal Exam GI & Abdominal Exam: Soft, Normal Bowel Sounds. 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 Anand recommending endometrial sampling - Pulm cleared patient for surgery but patient is high risk for postop pulm complications - on Rocephin and Flagyl, ID following - will f/u barium enema results Case discussed and reviewed with attending Dr. Ferrer <Lauro Ferrer - Last Filed: 02/27/18 14:45> Objective - Vital Signs/Intake and Output Vital Signs (last 24 hours): Temp Pulse Resp BP Pulse Ox 98.4 F 88 20 114/63 100 02/27/18 08:32 02/27/18 08:32 02/27/18 08:32 02/27/18 08:32 02/27/18 08:32 Intake and Output: 02/27/18 02/27/18 06:59 18:59 Intake Total 360 480 Output Total 1 Balance 360 479 - Medications Medications: Current Medications Acetaminophen (Tylenol 325mg Tab) 650 mg PO Q4H PRN PRN Reason: Pain, moderate (4-7) Acetaminophen (Tylenol 325mg Tab) 650 mg PO Q6 PRN PRN Reason: TEMP>=99.5F Acetaminophen (Tylenol 650 Mg Supp) 650 mg RC Q6H PRN PRN Reason: TEMP>=99.5F Al Hydrox/Mg Hydrox/Simethicone (Maalox Plus 30 Ml) 30 ml PO Q4 PRN PRN Reason: Indigestion / Heartburn Last Admin: 02/26/18 20:26 Dose: 30 ml Albuterol/Ipratropium (Duoneb 3 Mg/0.5 Mg (3 Ml) Ud) 3 ml IH [id number] [facility] Last Admin: 02/27/18 13:24 Dose: Not Given Alprazolam (Xanax) 0.5 mg PO BID PRN; Protocol PRN Reason: Anxiety Stop: 03/04/18 10:01 Ascorbic Acid (Vitamin C 500 Mg Tab) 500 mg PO DAILY [facility] Last Admin: 02/27/18 11:27 Dose: 500 mg Atorvastatin Calcium (Lipitor) 10 mg PO DAILY [facility] Last Admin: 02/26/18 09:54 Dose: 10 mg Betamethasone/Clotrimazole (Lotrisone) 0 gm TOP BID [facility] Last Admin: 02/26/18 17:13 Dose: Not Given Budesonide (Pulmicort Respules) 0.5 mg IH [id number] [facility] Last Admin: 02/27/18 07:59 Dose: 0.5 mg Diltiazem HCl (Cardizem) 30 mg PO Q8 [facility] Last Admin: 02/27/18 07:57 Dose: Not Given Docusate Sodium (Colace) 100 mg PO TID [facility] Last Admin: 02/27/18 11:23 Dose: 100 mg Donepezil HCl (Aricept) 10 mg PO HS [facility] Last Admin: 02/26/18 22:31 Dose: 10 mg Heparin Sodium (Porcine) (Heparin) 5,000 units SC Q12 [facility] PRN Reason: Protocol Last Admin: 02/27/18 11:24 Dose: 5,000 units Metronidazole (Flagyl) 500 mg in 100 mls @ 100 mls/hr IVPB Q8 [facility] PRN Reason: Protocol Last Admin: 02/27/18 06:35 Dose: 100 mls/hr Ceftriaxone Sodium (Rocephin 1 Gram Ivpb) 1 gm in 100 mls @ 100 mls/hr IVPB DAILY [facility] PRN Reason: Protocol Last Admin: 02/27/18 11:26 Dose: 100 mls/hr Lactated Ringer's (Lactated Ringer's) 1,000 mls @ 60 mls/hr IV .[id number] [facility] Last Admin: 02/27/18 06:40 Dose: 60 mls/hr Insulin Human Regular (Humulin R High) 0 units SC ACHS [facility] PRN Reason: Protocol Last Admin: 02/27/18 11:25 Dose: Not Given Lactobacillus Acidophilus (Bacid Acidophilus) 1 cap PO BID [facility] Last Admin: 02/27/18 11:23 Dose: 1 cap Ondansetron HCl (Zofran Inj) 4 mg IVP Q4H PRN PRN Reason: Nausea/Vomiting Pantoprazole Sodium (Protonix Ec Tab) 40 mg PO 0600 [facility] Last Admin: 02/27/18 07:54 Dose: Not Given Polyethylene Glycol (Miralax) 17 gm PO BID [facility] Last Admin: 02/27/18 11:25 Dose: Not Given Prednisone (Prednisone Tab) 2.5 mg PO DAILY [facility] Last Admin: 02/27/18 11:26 Dose: 2.5 mg Sildenafil Citrate (Revatio) 20 mg PO BID [facility] Last Admin: 02/27/18 11:26 Dose: 20 mg Silver Sulfadiazine (Silvadene 1% 25 Gm) 1 gm TP DAILY PRN PRN Reason: Rash Tramadol HCl (Ultram) 50 mg PO TID PRN PRN Reason: pain Last Admin: 02/27/18 11:27 Dose: 50 mg Zinc Sulfate (Zinc Sulfate 220 Mg Cap) 220 mg PO DAILY [facility] Last Admin: 02/27/18 11:27 Dose: 220 mg - Labs Labs: 02/27/18 05:00 02/27/18 05:00 PT 11.9 SECONDS (9.4-12.5) 06/08/18 21:06 INR 1.04 (0.93-1.08) 02/24/18 21:06 APTT 26.0 Seconds (25.1-36.5) 02/24/18 21:06 Assessment and Plan - Assessment and Plan (Free Text) Assessment: BE negative for fistula Will need workup for endometritis or Malignancy(Dr Carmona-Professor Of Special Education) C/s pending Vagina/Urine Will follow Tyrel Ferrer MD FACS
--- NOTE | 2018-02-27 08:55 | PN ---
DATE: 02/26/2018 PULMONARY PROGRESS NOTE SUBJECTIVE: The patient was seen and examined at the bedside, on nasal cannula. She is not complaining of shortness of breath. Actually, she looks comfortable. PHYSICAL EXAMINATION VITAL SIGNS: Her temperature is 98, pulse 95, respirations 20, pulse oximetry is 98% on nasal cannula, blood pressure is 100/56. HEAD: Normocephalic and atraumatic. NECK: Supple with no jugular vein distentions. CARDIOVASCULAR: S1 and S2. No S3. Regular. PULMONARY: Markedly diminished breath sounds bilaterally with few expiratory wheezes. No rhonchi, no rales. GASTROINTESTINAL: Soft, nontender. No organomegaly. GENITOURINARY: Deferred. EXTREMITIES: No pedal edema. NEUROLOGIC: No focal deficits. ASSESSMENT: 1. [id number] fistula. 2. Severe chronic obstructive pulmonary disease. 3. Oxygen dependency. 4. Hypoxia. 5. Coronary artery disease. 6. Diabetes mellitus. DISCUSSION: Today's CBC is normal and chemistries are also non-revealing. The patient's condition is stable, but as indicated in my yesterday's consultation, the patient presents a high risk for pulmonary complications for possible surgery to close the fistula. She has COPD. She is on home oxygen. She has pulmonary hypertension, on Revatio. All these make her high risk. This will be further discussed. Juan Whitehead MD
--- NOTE | 2018-02-27 09:08 | CP.PCM.PCO ---
Physician Communication Note - Physician Communication Note Physician Communication Note: Off Plavix-Day3/BE today(?fistula)/C/s pending/ Needs endometrial aspiration
--- NOTE | 2018-02-27 09:36 | PN ---
DATE: 02/27/2018 PULMONARY NOTE SUBJECTIVE: The patient appears comfortable this morning. She is not short of breath at rest. PHYSICAL EXAMINATION: VITAL SIGNS: Last temperature recorded is 99.1, pulse this morning is approximately 88, respiratory rate 18/20, last blood pressure recorded in the chart-106/49. Oxygen saturation on nasal cannula is 96%. HEENT: Normocephalic, atraumatic. No JVD. CARDIOVASCULAR: Systolic ejection murmur at the lower left sternal border. No S3 gallop. LUNGS: Decreased breath sounds at the bases. Very minimal rhonchi. No wheezing. EXTREMITIES: Positive for mild edema. No cyanosis, no clubbing. Calves are nontender to palpation. GI: Abdomen is soft, nontender and nondistended. Bowel sounds are positive. SKIN: No acute rash. NEUROLOGIC: Limited to present time. IMPRESSION: 1. Rule out colovaginal fistula. 2. End-stage chronic obstructive pulmonary disease. 3. Pulmonary hypertension. 4. Coronary artery disease. 5. Anemia. PLAN: The patient appears comfortable this morning. She is not short of breath at rest. She does state to feeling a little better overall. I did discuss the case with the night nurse at length. The night nurse stated that the patient's night was uneventful. On physical exam, there is no significant bronchospasm noted. In addition, there is no significant alveolar-arterial gradient. I will continue the current nebulizer treatments and low-dose oral steroids for now. The patient also remains on Revatio-for pulmonary hypertension. Input by surgery is noted. The patient is for barium enema later today. Inputs by Cardiology and Infectious Disease are also noted. The clinical status of the patient appears somewhat improved-compared to the initial presentation. However, her future status/prognosis remains very guarded at best/poor. I will discuss the above with the attending physician later this morning. Evgeny Briggs MD [facility]
[2018-02-27 09:46] LABS: HEPATITIS B SURFACE AG Negative (NEGATIVE)
[2018-02-27 09:52] LABS: HEPATITIS A IGM NEGATIVE (NEGATIVE); HEPATITIS B CORE AB NEGATIVE (NEGATIVE)
[2018-02-27 10:03] LABS: HEPATITIS C ANTIBODY NEGATIVE (NEGATIVE)
[2018-02-27] MEDS: Insulin Reg-HIGH-Coverage SC SCH ×4 (10:19→21:58)
[2018-02-27] MEDS: Lactobacillus Acidophilus 500 MU Cap PO SCH ×2 (11:23→17:54)
[2018-02-27] MEDS: POLYETHYLENE GLYCOL 3350 17 GM/Dose PACKET PO SCH ×2 (11:25→17:59)
[2018-02-27] MEDS: Sildenafil 20 MG TAB PO SCH ×2 (11:26→17:59)
[2018-02-27] MEDS: cefTRIAXone 1 gm 1 GM/100 ML BAG IVPB SCH (11:26)
--- NOTE | 2018-02-27 12:27 | RAD ---
PROCEDURE: Single contrast barium enema HISTORY: r/o rectovaginal fistula COMPARISON: TECHNIQUE: The infection control coordinator film shows some residual contrast in the bladder. The study is performed using single contrast barium. The study was carried out in the lateral plane with emphasis on the rectosigmoid to rule out fistula. FINDINGS: There is some narrowing and irregularity at the rectosigmoid junction. This may be due to diverticular disease. There is no evidence of a rectovaginal fistula. Contrast also fills the colon to the level of the cecum. There is mild diverticulosis of the sigmoid colon. The colon is otherwise unremarkable IMPRESSION: No evidence of rectovaginal fistula
--- NOTE | 2018-02-27 14:01 | CP.PCM.PN ---
<Miguel Jorge - Last Filed: 02/27/18 13:56> Subjective - Date & Time of Evaluation Date of Evaluation: 02/27/18 Time of Evaluation: 13:56 - Subjective Subjective: Patient seen and examined at bedside. Patient complaining of nausea and mild suprapubic tenderness secondary to procedure today. Patient denies chest pain, shortness of breath, weakness. Patient underwent barium enema and awaiting results. Objective - Vital Signs/Intake and Output Vital Signs (last 24 hours): Temp Pulse Resp BP Pulse Ox 98.4 F 88 20 114/63 100 02/27/18 08:32 02/27/18 08:32 02/27/18 08:32 02/27/18 08:32 02/27/18 08:32 Intake and Output: 02/27/18 02/27/18 06:59 18:59 Intake Total 360 Balance 360 - Medications Medications: Current Medications Acetaminophen (Tylenol 325mg Tab) 650 mg PO Q4H PRN PRN Reason: Pain, moderate (4-7) Acetaminophen (Tylenol 325mg Tab) 650 mg PO Q6 PRN PRN Reason: TEMP>=99.5F Acetaminophen (Tylenol 650 Mg Supp) 650 mg RC Q6H PRN PRN Reason: TEMP>=99.5F Al Hydrox/Mg Hydrox/Simethicone (Maalox Plus 30 Ml) 30 ml PO Q4 PRN PRN Reason: Indigestion / Heartburn Last Admin: 02/26/18 20:26 Dose: 30 ml Albuterol/Ipratropium (Duoneb 3 Mg/0.5 Mg (3 Ml) Ud) 3 ml IH [id number] [facility] Last Admin: 02/27/18 13:24 Dose: Not Given Alprazolam (Xanax) 0.5 mg PO BID PRN; Protocol PRN Reason: Anxiety Stop: 03/04/18 10:01 Ascorbic Acid (Vitamin C 500 Mg Tab) 500 mg PO DAILY [facility] Last Admin: 02/27/18 11:27 Dose: 500 mg Atorvastatin Calcium (Lipitor) 10 mg PO DAILY [facility] Last Admin: 02/26/18 09:54 Dose: 10 mg Betamethasone/Clotrimazole (Lotrisone) 0 gm TOP BID [facility] Last Admin: 02/26/18 17:13 Dose: Not Given Budesonide (Pulmicort Respules) 0.5 mg IH [id number] [facility] Last Admin: 02/27/18 07:59 Dose: 0.5 mg Diltiazem HCl (Cardizem) 30 mg PO Q8 [facility] Last Admin: 02/27/18 07:57 Dose: Not Given Docusate Sodium (Colace) 100 mg PO TID [facility] Last Admin: 02/27/18 11:23 Dose: 100 mg Donepezil HCl (Aricept) 10 mg PO HS [facility] Last Admin: 02/26/18 22:31 Dose: 10 mg Heparin Sodium (Porcine) (Heparin) 5,000 units SC Q12 [facility] PRN Reason: Protocol Last Admin: 02/27/18 11:24 Dose: 5,000 units Metronidazole (Flagyl) 500 mg in 100 mls @ 100 mls/hr IVPB Q8 [facility] PRN Reason: Protocol Last Admin: 02/27/18 06:35 Dose: 100 mls/hr Ceftriaxone Sodium (Rocephin 1 Gram Ivpb) 1 gm in 100 mls @ 100 mls/hr IVPB DAILY [facility] PRN Reason: Protocol Last Admin: 02/27/18 11:26 Dose: 100 mls/hr Lactated Ringer's (Lactated Ringer's) 1,000 mls @ 60 mls/hr IV .[id number] [facility] Last Admin: 02/27/18 06:40 Dose: 60 mls/hr Insulin Human Regular (Humulin R High) 0 units SC ACHS [facility] PRN Reason: Protocol Last Admin: 02/27/18 11:25 Dose: Not Given Lactobacillus Acidophilus (Bacid Acidophilus) 1 cap PO BID [facility] Last Admin: 02/27/18 11:23 Dose: 1 cap Ondansetron HCl (Zofran Inj) 4 mg IVP Q4H PRN PRN Reason: Nausea/Vomiting Pantoprazole Sodium (Protonix Ec Tab) 40 mg PO 0600 [facility] Last Admin: 02/27/18 07:54 Dose: Not Given Polyethylene Glycol (Miralax) 17 gm PO BID [facility] Last Admin: 02/27/18 11:25 Dose: Not Given Prednisone (Prednisone Tab) 2.5 mg PO DAILY [facility] Last Admin: 02/27/18 11:26 Dose: 2.5 mg Sildenafil Citrate (Revatio) 20 mg PO BID [facility] Last Admin: 02/27/18 11:26 Dose: 20 mg Silver Sulfadiazine (Silvadene 1% 25 Gm) 1 gm TP DAILY PRN PRN Reason: Rash Tramadol HCl (Ultram) 50 mg PO TID PRN PRN Reason: pain Last Admin: 02/27/18 11:27 Dose: 50 mg Zinc Sulfate (Zinc Sulfate 220 Mg Cap) 220 mg PO DAILY [facility] Last Admin: 02/27/18 11:27 Dose: 220 mg - Labs Labs: 02/27/18 05:00 02/27/18 05:00 PT 11.9 SECONDS (9.4-12.5) 02/24/18 21:06 INR 1.04 (0.93-1.08) 02/24/18 21:06 APTT 26.0 Seconds (25.1-36.5) 02/24/18 21:06 - Constitutional Appears: Non-toxic - Head Exam Head Exam: ATRAUMATIC, NORMAL INSPECTION, NORMOCEPHALIC - Eye Exam Eye Exam: EOMI, PERRL - Respiratory Exam Respiratory Exam: Clear to Ausculation Bilateral, Rales, NORMAL BREATHING PATTERN. absent: Rhonchi - Cardiovascular Exam Cardiovascular Exam: REGULAR RHYTHM, +S1, +S2 - GI/Abdominal Exam GI & Abdominal Exam: Soft, Tenderness (suprapubic tenderness bilateral<midline) , Normal Bowel Sounds - Neurological Exam Neurological Exam: Alert, Awake, Oriented x3 Neuro motor strength exam: Left Upper Extremity: 5, Right Upper Extremity: 5, Left Lower Extremity: 5, Right Lower Extremity: 5 - Psychiatric Exam Psychiatric exam: Normal Affect, Normal Mood - Skin Skin Exam: Dry, Normal Color Assessment and Plan - Assessment and Plan (Free Text) Assessment: 82 year old female with past medical history of severe COPD, HTN, pulmonary HTN , CHF, dyslipidemia, recurrent UTI who is admitted for fecal discharge from vaginal canal. patient underwent barium enema showing no sign of recovaginal fistula. General surgery, ID, GATE SERVICES SUPERVISOR, pulm on consult. Plan: COPD: - Severe COPD - Continue home medications, revatio, steroids, pulmicort - Duonebs - Maintain SaO2 >92% Transaminitis - Elevated ALT>AST, improving from admission - Hepatitis panel negative - Alk phos wnl - Abd/Pelvis CT showing no gross lesion or ductal dilation of liver ?Colovaginal Fistula - Barium Enema: No evidence of rectovaginal fistula - Stool occult negative - Abd/Pelvis CT: Endometrial appears abnormally distended with fluid. Followup evaluation with dedicated ultrasound recommended. Clinical evaluation necessary. Sigmoid colon abuts uterus, enteric contrast has not reached distal colon limiting evaluation. Left-sided ventral hernia, containing the mid transverse colon. Left colon is relatively collapsed. Cannot exclude mild obstructive changes. Inferior to this is a small right- sided ventral hernia containing small bowel loop without evidence of obstruction. Correlate clinically to exclude incarceration. Appearance is similar to prior study. Again noted in the pelvis is a 2 cm cystic density posteriorly abutting small bowel loops, uncertain etiology, appearance not significantly changed. Large hiatal hernia. Colonic diverticula. Interval grade 1 compression fracture of L1. Vertebroplasty with residual compression deformity of T12 again noted. - General surgery consulted, recs as follows - F/u barium enema results - Needs endometrial aspiration - VERONA/DEPUTY EDITOR IN CHIEF consulted and following - endometrial sampling with Pipelle or D and C when medically prepared for surgery - Pulm consulted and cleared for surgery as high risk - ID consulted - Trevon Potter day 3 - Monitor clinically - Pulmonology - very high risk for postoperative pulmonary complications, severe COPD, CAD s/p stent, clear for surgery - Follow up GS and GATE SERVICES SUPERVISOR recs/plan ?dementia - Neuro consulted - dementia, intermittent confusional state and rule out vaginal fistula - continue current management, plan to follow up Hx of dyslipidemia - Continue home Lipitor GI/DVT ppx: - Protonix - Heparin Case and plan discussed with attending <Blaine Melo - Last Filed: 02/28/18 17:42> Objective - Vital Signs/Intake and Output Vital Signs (last 24 hours): Temp Pulse Resp BP Pulse Ox 98.2 F 99 H 22 124/68 95 02/28/18 07:42 02/28/18 07:42 02/28/18 07:42 02/28/18 07:42 02/28/18 07:42 Intake and Output: 02/28/18 02/28/18 06:59 18:59 Intake Total 300 720 Balance 300 720 - Medications Medications: Current Medications Acetaminophen (Tylenol 325mg Tab) 650 mg PO Q4H PRN PRN Reason: Pain, moderate (4-7) Acetaminophen (Tylenol 325mg Tab) 650 mg PO Q6 PRN PRN Reason: TEMP>=99.5F Acetaminophen (Tylenol 650 Mg Supp) 650 mg RC Q6H PRN PRN Reason: TEMP>=99.5F Al Hydrox/Mg Hydrox/Simethicone (Maalox Plus 30 Ml) 30 ml PO Q4 PRN PRN Reason: Indigestion / Heartburn Last Admin: 02/26/18 20:26 Dose: 30 ml Albuterol/Ipratropium (Duoneb 3 Mg/0.5 Mg (3 Ml) Ud) 3 ml IH [id number] [facility] Last Admin: 02/28/18 13:29 Dose: 3 ml Alprazolam (Xanax) 0.5 mg PO BID PRN; Protocol PRN Reason: Anxiety Stop: 03/04/18 10:01 Last Admin: 02/28/18 11:30 Dose: 0.5 mg Ascorbic Acid (Vitamin C 500 Mg Tab) 500 mg PO DAILY [facility] Last Admin: 02/27/18 11:27 Dose: 500 mg Atorvastatin Calcium (Lipitor) 10 mg PO DAILY [facility] Last Admin: 02/28/18 11:59 Dose: 10 mg Betamethasone/Clotrimazole (Lotrisone) 0 gm TOP BID [facility] Last Admin: 02/28/18 11:59 Dose: 1 applic Budesonide (Pulmicort Respules) 0.5 mg IH [id number] [facility] Last Admin: 02/28/18 07:53 Dose: 0.5 mg Diltiazem HCl (Cardizem) 30 mg PO Q8 [facility] Last Admin: 02/28/18 13:16 Dose: Not Given Docusate Sodium (Colace) 100 mg PO TID [facility] Last Admin: 02/28/18 11:29 Dose: 100 mg Donepezil HCl (Aricept) 10 mg PO HS [facility] Last Admin: 02/27/18 21:57 Dose: Not Given Heparin Sodium (Porcine) (Heparin) 5,000 units SC Q12 [facility] PRN Reason: Protocol Last Admin: 02/28/18 11:28 Dose: 5,000 units Lactated Ringer's (Lactated Ringer's) 1,000 mls @ 60 mls/hr IV .[id number] [facility] Last Admin: 02/27/18 20:00 Dose: 60 mls/hr Insulin Human Regular (Humulin R High) 0 units SC ACHS [facility] PRN Reason: Protocol Last Admin: 02/28/18 13:17 Dose: Not Given Lactobacillus Acidophilus (Bacid Acidophilus) 1 cap PO BID [facility] Last Admin: 02/28/18 11:32 Dose: 1 cap Ondansetron HCl (Zofran Inj) 4 mg IVP Q4H PRN PRN Reason: Nausea/Vomiting Pantoprazole Sodium (Protonix Ec Tab) 40 mg PO 0600 [facility] Last Admin: 02/28/18 05:33 Dose: 40 mg Polyethylene Glycol (Miralax) 17 gm PO BID [facility] Last Admin: 02/28/18 11:22 Dose: Not Given Prednisone (Prednisone Tab) 2.5 mg PO DAILY [facility] Last Admin: 02/28/18 11:30 Dose: 2.5 mg Sildenafil Citrate (Revatio) 20 mg PO BID [facility] Last Admin: 02/28/18 11:29 Dose: 20 mg Silver Sulfadiazine (Silvadene 1% 25 Gm) 1 gm TP DAILY PRN PRN Reason: Rash Tramadol HCl (Ultram) 50 mg PO TID PRN PRN Reason: pain Last Admin: 02/28/18 12:01 Dose: 50 mg Zinc Sulfate (Zinc Sulfate 220 Mg Cap) 220 mg PO DAILY [facility] Last Admin: 02/28/18 11:30 Dose: 220 mg - Labs Labs: 02/28/18 05:30 02/28/18 05:30 PT 11.9 SECONDS (9.4-12.5) 02/24/18 21:06 INR 1.04 (0.93-1.08) 02/24/18 21:06 APTT 26.0 Seconds (25.1-36.5) 02/24/18 21:06 Attending/Attestation - Attestation I have personally seen and examined this patient.: Yes I have fully participated in the care of the patient.: Yes I have reviewed all pertinent clinical information, including history, physical exam and plan: Yes Notes (Text): 02/28/18 17:41 Medical record note made by the resident after discussion with my direction and input after the patient was personally seen and examined by me. I have reviewed the chart and agree that the record accurately reflects by personal performance of the history, physical exam, data review, and medical decision-making, in the course for the patient. I have also personally directed the plan of care. 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 Patient was evaluated by OBGYN ,Pelvic USG and D/C was recommended, which patient is refusing at this time.This was discussed in detail with patient and patient daughter over the phone.Patient is on IV Rocephin and Flagyl as per ID. Pulmonary evaluation is noted, high risk for surgery as per Pulmonary. Mildly elevated transaminase , etiology is unclear, level are coming down, we will monitor. COPD is stable, patient is not wheezing, she is on base line home oxygen via nasal canula. Management plan was discussed in detail with patient and daughter . Education was provided.
--- NOTE | 2018-02-27 15:07 | CP.PCM.PN ---
Subjective - Date & Time of Evaluation Date of Evaluation: 02/27/18 Time of Evaluation: 11:45 - Subjective Subjective: No fevers, no abdominal pain, no diarrhea, no nausea. Objective - Vital Signs/Intake and Output Vital Signs (last 24 hours): Temp Pulse Resp BP Pulse Ox 98.4 F 88 20 114/63 100 02/27/18 08:32 02/27/18 08:32 02/27/18 08:32 02/27/18 08:32 02/27/18 08:32 Intake and Output: 02/27/18 02/27/18 06:59 18:59 Intake Total 360 Balance 360 - Medications Medications: Current Medications Acetaminophen (Tylenol 325mg Tab) 650 mg PO Q4H PRN PRN Reason: Pain, moderate (4-7) Acetaminophen (Tylenol 325mg Tab) 650 mg PO Q6 PRN PRN Reason: TEMP>=99.5F Acetaminophen (Tylenol 650 Mg Supp) 650 mg RC Q6H PRN PRN Reason: TEMP>=99.5F Al Hydrox/Mg Hydrox/Simethicone (Maalox Plus 30 Ml) 30 ml PO Q4 PRN PRN Reason: Indigestion / Heartburn Last Admin: 02/26/18 20:26 Dose: 30 ml Albuterol/Ipratropium (Duoneb 3 Mg/0.5 Mg (3 Ml) Ud) 3 ml IH [id number] [facility] Last Admin: 02/27/18 07:59 Dose: 3 ml Alprazolam (Xanax) 0.5 mg PO BID PRN; Protocol PRN Reason: Anxiety Stop: 03/04/18 10:01 Ascorbic Acid (Vitamin C 500 Mg Tab) 500 mg PO DAILY [facility] Last Admin: 02/26/18 09:54 Dose: 500 mg Atorvastatin Calcium (Lipitor) 10 mg PO DAILY [facility] Last Admin: 02/26/18 09:54 Dose: 10 mg Betamethasone/Clotrimazole (Lotrisone) 0 gm TOP BID [facility] Last Admin: 02/26/18 17:13 Dose: Not Given Budesonide (Pulmicort Respules) 0.5 mg IH [id number] [facility] Last Admin: 02/27/18 07:59 Dose: 0.5 mg Diltiazem HCl (Cardizem) 30 mg PO Q8 [facility] Last Admin: 02/27/18 07:57 Dose: Not Given Docusate Sodium (Colace) 100 mg PO TID [facility] Donepezil HCl (Aricept) 10 mg PO HS [facility] Last Admin: 02/26/18 22:31 Dose: 10 mg Heparin Sodium (Porcine) (Heparin) 5,000 units SC Q12 [facility] PRN Reason: Protocol Last Admin: 02/26/18 22:32 Dose: 5,000 units Metronidazole (Flagyl) 500 mg in 100 mls @ 100 mls/hr IVPB Q8 [facility] PRN Reason: Protocol Last Admin: 02/27/18 06:35 Dose: 100 mls/hr Ceftriaxone Sodium (Rocephin 1 Gram Ivpb) 1 gm in 100 mls @ 100 mls/hr IVPB DAILY [facility] PRN Reason: Protocol Last Admin: 02/26/18 09:53 Dose: 100 mls/hr Lactated Ringer's (Lactated Ringer's) 1,000 mls @ 60 mls/hr IV .[id number] [facility] Last Admin: 02/27/18 06:40 Dose: 60 mls/hr Insulin Human Regular (Humulin R High) 0 units SC ACHS [facility] PRN Reason: Protocol Last Admin: 02/27/18 10:19 Dose: Not Given Lactobacillus Acidophilus (Bacid Acidophilus) 1 cap PO BID [facility] Last Admin: 02/26/18 17:14 Dose: 1 cap Ondansetron HCl (Zofran Inj) 4 mg IVP Q4H PRN PRN Reason: Nausea/Vomiting Pantoprazole Sodium (Protonix Ec Tab) 40 mg PO 0600 [facility] Last Admin: 02/27/18 07:54 Dose: Not Given Polyethylene Glycol (Miralax) 17 gm PO BID [facility] Prednisone (Prednisone Tab) 2.5 mg PO DAILY [facility] Last Admin: 02/26/18 09:54 Dose: 2.5 mg Sildenafil Citrate (Revatio) 20 mg PO BID [facility] Last Admin: 02/26/18 17:15 Dose: 20 mg Silver Sulfadiazine (Silvadene 1% 25 Gm) 1 gm TP DAILY PRN PRN Reason: Rash Tramadol HCl (Ultram) 50 mg PO TID PRN PRN Reason: pain Last Admin: 02/26/18 18:20 Dose: 50 mg Zinc Sulfate (Zinc Sulfate 220 Mg Cap) 220 mg PO DAILY [facility] Last Admin: 02/26/18 09:54 Dose: 220 mg - Labs Labs: 02/27/18 05:00 02/27/18 05:00 PT 11.9 SECONDS (9.4-12.5) 02/24/18 21:06 INR 1.04 (0.93-1.08) 02/24/18 21:06 APTT 26.0 Seconds (25.1-36.5) 02/24/18 21:06 - Constitutional Appears: Non-toxic, Chronically Ill - Head Exam Head Exam: NORMAL INSPECTION - Respiratory Exam Respiratory Exam: Decreased Breath Sounds - Cardiovascular Exam Cardiovascular Exam: +S1, +S2 - GI/Abdominal Exam GI & Abdominal Exam: Soft. absent: Tenderness Assessment and Plan - Assessment and Plan (Free Text) Plan: Assessment R/O entero-vaginal fistula, R/O endometrial abnormality S/P systemic inflammatory response syndrome, S/P severe sepsis with hypoxic respiratory failure S/P VDRF, S/P HCAP, new onset, right lower lobe on top of acute bronchitis chronic CHF end-stage COPD pulmonary HTN CAD dyslipidemia Plan continue Rocephin and Flagyl day 3; reviewed CT A/P - as discussed with Dr. Ferrer previously, patient for barium enema to see if there is a fistula follow up Medical Management Trainer follow up regarding Endometrial thickening as seen on the CT A/P will continue to monitor clinically
--- NOTE | 2018-02-27 15:51 | PN ---
DATE: 02/27/2018 NEUROLOGY FOLLOWUP CHIEF COMPLAINT: Followup for dementia. SUBJECTIVE: Patient is seen and examined at bedside. She is alert and oriented to person and place, not much to month or year. No acute events overnight. No hallucinations. CAT scan of the head showed no acute intracranial abnormality. She has chronic deconditioning and chronic back pain, otherwise stable. She is on Aricept 10 mg p.o. at bedtime for underlying dementia. PAST MEDICAL HISTORY: COPD, pulmonary hypertension, CAD with stents, history of cognitive impairment. REVIEW OF SYSTEMS: A 14-point review of systems negative except as per the HPI. FAMILY HISTORY: Noncontributory. ALLERGIES: SHE IS ALLERGIC WITH MORPHINE, CODEINE AND HYDROMORPHONE. SOCIAL HISTORY: No illicit drug use, smoking or EtOH abuse. MEDICATIONS: Reviewed by nurse reconciliation sheet. LABORATORY DATA: Sodium is 142, potassium 4, chloride 107, carbon dioxide 28, BUN of 17, creatinine 0.7, random glucose 97. PHYSICAL EXAMINATION: GENERAL: Patient is sitting up in bed, in no acute distress. VITAL SIGNS: Temperature 98.4, pulse rate of 88, blood pressure 114/60, respiratory rate 20, oxygen saturation 100% on room air. HEENT: Head is atraumatic, normocephalic. PERRLA. Extraocular muscles intact. NECK: Supple. No JVD, no adenopathy noted. HEART: S1, S2. Normal rate and rhythm. No murmurs, rubs or gallops. ABDOMEN: Soft, nontender, nondistended. Bowel sounds present. EXTREMITIES: No clubbing and no cyanosis. Peripheral pulses are 2+ bilaterally. NEUROLOGIC: Patient is alert, oriented to person and place, not much to month or year. Recall after five minutes is 0/3. Poor attention and slow thought process. Cranial nerves II through XII intact. Motor: Slight increased tone throughout. Moves all extremities equally. No pronator drift seen. Sensory: Decreased light touch and pinprick up to the calves bilaterally. Decreased vibration at the toes. DTRs 2+ throughout and 1+ at knees and ankles. Coordination: [id number] is intact. No dysmetria noted. Gait is deferred for now. ASSESSMENT AND PLAN: This is an 82-year-old woman with history of chronic obstructive pulmonary disease; pulmonary hypertension; coronary artery disease with stents; history of cognitive impairment, on Aricept; history of deconditioning and chronic back pain, who presented with suspected enterocolonic and vaginal fistula, for which surgery is on board. CAT scan of the abdomen without contrast showed two ventral hernias containing loops of small bowel without obstruction and contrast in colon and fluid in the endometrial canal. Surgery is on board. She has a history of pulmonary hypertension, on Revatio. I was consulted for dementia. She does have [id number] cognitive impairment and superimposed on the chronic medical conditions. RECOMMENDATIONS: At this time, recommend: 1. Continue with Aricept 10 mg p.o. daily. 2. Advise with family members as well as in the rehab. 3. Continue with rehab for deconditioned state. 4. Monitor electrolytes and correct accordingly and avoid hypotensive episodes. 5. PT/OT evaluation. Thank you for this followup. Juan Grady MD
[2018-02-27] MEDS: Clotrimazole/Betamethasone Cream(15 gm) TOP SCH (17:58)
--- NOTE | 2018-02-27 23:55 | CON ---
DATE: 02/27/2018 CARDIOLOGY CONSULTATION HISTORY OF PRESENT ILLNESS: The patient is an 82-year-old woman who presents with a possible vaginal fistula. PAST MEDICAL HISTORY: Includes a moderate pulmonary hypertension, normal LV function, CAD with patent stents. The patient has been stable without shortness of breath, without chest pain. SOCIAL HISTORY: The patient is a former smoker. REVIEW OF SYSTEMS: The patient is free of cardiac symptoms. PHYSICAL EXAMINATION: VITAL SIGNS: Blood pressure is 114/63, the heart rates in the 80s. NECK: Negative JVD. LUNGS: Decreased breath sounds. HEART: With S1, S2. EXTREMITIES: Without edema. The EKG shows no acute changes. LABORATORY DATA: Hemoglobin is 10.2. Chemistries, BUN and creatinine are unremarkable. IMPRESSION: 1. Stable angina. 2. Coronary artery disease. 3. History percutaneous transluminal coronary angioplasty and stent. 4. Moderate pulmonary hypertension. 5. Severe chronic obstructive pulmonary disease. PLAN: Given these findings, if there are any surgical procedures planned including any gynecologic procedures, the patient is at increased risk due to her cardiopulmonary status. However, her cardiopulmonary status is at its optimum at this time. Harrison Echavarria MD
[2018-02-28] MEDS: Albuterol-Ipratrop 3 mg / 0.5 (3 ml) UD IH SCH ×4 (02:30→20:33)
[2018-02-28] MEDS: metroNIDAZOLE IV 500 mg/100 ml 500 MG/100 ML BAG IVPB SCH (05:32)
[2018-02-28] MEDS: Pantoprazole 40 mg EC Tab PO SCH (05:33)
[2018-02-28 06:28] LABS: BASO # 0.02 K/mm3 (0.0-2.0); BASO % 0.4 % (0.0-3.0); EOS # 0.2 (0.0-0.7); EOS % 3.2 % (1.5-5.0); GRAN # 4.01 (1.4-6.5); GRAN % 71.5 % (50.0-68.0); HEMOGLOBIN 10.5 g/dL (12.0-16.0); MEAN CELL VOLUME 94.7 fl (80.0-105.0); MEAN CORPUSCULAR HEMOGLOBIN 30.9 pg (25.0-35.0); MEAN CORPUSCULAR HGB CONC 32.6 g/dl (31.0-37.0); MONO # 0.4 (0.1-0.6); MONO % 7.9 % (1.0-6.0); RBC 3.4 10^6/uL (3.5-6.1); WHITE BLOOD COUNT 5.6 10^3/ul (4.5-11.0)
[2018-02-28 06:40] LABS: BLOOD UREA NITROGEN 10 mg/dL (7-21); GFR AFRICAN-AMERICAN > 60; GFR NON-AFRICAN AMERICAN > 60
[2018-02-28 06:41] LABS: ALB/GLOB RATIO 1.3 (1.1-1.8); ALBUMIN 2.8 g/dL (3.0-4.8); ALT/SGPT 74 U/L (7-56); AST/SGOT 24 U/L (14-36)
--- NOTE | 2018-02-28 07:30 | CP.PCM.PN ---
<Ferny Bullard - Last Filed: 02/28/18 15:58> Subjective - Date & Time of Evaluation Date of Evaluation: 02/28/18 Time of Evaluation: 06:39 - Subjective Subjective: Ferny Bullard PGY1 Surgical Progress Note for Dr. Ferrer Patient was seen and examined at bedside. she has no complaints and no overnight events. denies vaginal discharge, fevers/chills, n/v Objective - Vital Signs/Intake and Output Vital Signs (last 24 hours): Temp Pulse Resp BP Pulse Ox 98.0 F 87 21 112/57 L 99 02/27/18 18:00 02/27/18 18:00 02/27/18 18:00 02/27/18 18:00 02/27/18 18:00 Intake and Output: 02/28/18 02/28/18 06:59 18:59 Intake Total 300 Balance 300 - Medications Medications: Current Medications Acetaminophen (Tylenol 325mg Tab) 650 mg PO Q4H PRN PRN Reason: Pain, moderate (4-7) Acetaminophen (Tylenol 325mg Tab) 650 mg PO Q6 PRN PRN Reason: TEMP>=99.5F Acetaminophen (Tylenol 650 Mg Supp) 650 mg RC Q6H PRN PRN Reason: TEMP>=99.5F Al Hydrox/Mg Hydrox/Simethicone (Maalox Plus 30 Ml) 30 ml PO Q4 PRN PRN Reason: Indigestion / Heartburn Last Admin: 02/26/18 20:26 Dose: 30 ml Albuterol/Ipratropium (Duoneb 3 Mg/0.5 Mg (3 Ml) Ud) 3 ml IH [id number] [facility] Last Admin: 02/28/18 02:30 Dose: Not Given Alprazolam (Xanax) 0.5 mg PO BID PRN; Protocol PRN Reason: Anxiety Stop: 03/04/18 10:01 Ascorbic Acid (Vitamin C 500 Mg Tab) 500 mg PO DAILY [facility] Last Admin: 02/27/18 11:27 Dose: 500 mg Atorvastatin Calcium (Lipitor) 10 mg PO DAILY [facility] Last Admin: 02/26/18 09:54 Dose: 10 mg Betamethasone/Clotrimazole (Lotrisone) 0 gm TOP BID [facility] Last Admin: 02/27/18 17:58 Dose: 1 applic Budesonide (Pulmicort Respules) 0.5 mg IH [id number] [facility] Last Admin: 02/27/18 21:00 Dose: 0.5 mg Diltiazem HCl (Cardizem) 30 mg PO Q8 [facility] Last Admin: 02/28/18 05:33 Dose: Not Given Docusate Sodium (Colace) 100 mg PO TID [facility] Last Admin: 02/27/18 17:55 Dose: 100 mg Donepezil HCl (Aricept) 10 mg PO HS [facility] Last Admin: 02/27/18 21:57 Dose: Not Given Heparin Sodium (Porcine) (Heparin) 5,000 units SC Q12 [facility] PRN Reason: Protocol Last Admin: 02/27/18 21:58 Dose: 5,000 units Metronidazole (Flagyl) 500 mg in 100 mls @ 100 mls/hr IVPB Q8 [facility] PRN Reason: Protocol Last Admin: 02/28/18 05:32 Dose: 100 mls/hr Ceftriaxone Sodium (Rocephin 1 Gram Ivpb) 1 gm in 100 mls @ 100 mls/hr IVPB DAILY [facility] PRN Reason: Protocol Last Admin: 02/27/18 11:26 Dose: 100 mls/hr Lactated Ringer's (Lactated Ringer's) 1,000 mls @ 60 mls/hr IV .[id number] [facility] Last Admin: 02/27/18 20:00 Dose: 60 mls/hr Insulin Human Regular (Humulin R High) 0 units SC ACHS [facility] PRN Reason: Protocol Last Admin: 02/27/18 21:58 Dose: Not Given Lactobacillus Acidophilus (Bacid Acidophilus) 1 cap PO BID [facility] Last Admin: 02/27/18 17:54 Dose: 1 cap Ondansetron HCl (Zofran Inj) 4 mg IVP Q4H PRN PRN Reason: Nausea/Vomiting Pantoprazole Sodium (Protonix Ec Tab) 40 mg PO 0600 [facility] Last Admin: 02/28/18 05:33 Dose: 40 mg Polyethylene Glycol (Miralax) 17 gm PO BID [facility] Last Admin: 02/27/18 17:59 Dose: 17 gm Prednisone (Prednisone Tab) 2.5 mg PO DAILY [facility] Last Admin: 02/27/18 11:26 Dose: 2.5 mg Sildenafil Citrate (Revatio) 20 mg PO BID [facility] Last Admin: 02/27/18 17:59 Dose: 20 mg Silver Sulfadiazine (Silvadene 1% 25 Gm) 1 gm TP DAILY PRN PRN Reason: Rash Tramadol HCl (Ultram) 50 mg PO TID PRN PRN Reason: pain Last Admin: 02/27/18 11:27 Dose: 50 mg Zinc Sulfate (Zinc Sulfate 220 Mg Cap) 220 mg PO DAILY JEFF[facility] Last Admin: 02/27/18 11:27 Dose: 220 mg - Labs Labs: 02/28/18 05:30 02/28/18 05:30 PT 11.9 SECONDS (9.4-12.5) 02/24/18 21:06 INR 1.04 (0.93-1.08) 02/24/18 21:06 APTT 26.0 Seconds (25.1-36.5) 02/24/18 21:06 - Additional Findings Additional findings: - Constitutional Appears: Well, Non-toxic, No Acute Distress - Head Exam Head Exam: NORMAL INSPECTION - Eye Exam Eye Exam: Normal appearance - ENT Exam ENT Exam: Mucous Membranes Moist - Neck Exam Neck Exam: Normal Inspection - Respiratory Exam Respiratory Exam: NORMAL BREATHING PATTERN - Cardiovascular Exam Cardiovascular Exam: RRR - GI/Abdominal Exam GI & Abdominal Exam: Soft, Normal Bowel Sounds. absent: Distended, Tenderness - Extremities Exam Extremities Exam: Full ROM - Back Exam Back Exam: NORMAL INSPECTION - Neurological Exam Neurological Exam: Awake - Psychiatric Exam Psychiatric exam: Normal Mood - Skin Skin Exam: Normal Color Assessment and Plan - Assessment and Plan (Free Text) Assessment: 82 yo female with a PMH COPD, Pulmomonary HTN, CAD with stents who presents with suspected entero-/colonic-vaginal fistula Plan feculent vaginal discharge likely 2/2 entero-/colonic-vaginal fistula - pelvic U/S showed fluid distention in endometrial cavity due to cervical stenosis vs neoplasm - CT w/ contrast showed two ventral hernias containing loops of small bowel w/o obstruction, contrast in colon and fluid in endometrial canal - barium enema showed no evidence of rectovaginal fistula - Laboratory App[employer], Dr. Anand recommending endometrial sampling - Pulm cleared patient for surgery but patient is high risk for postop pulm complications - Cardio cleared patient for surgery but patient is at increased risk due to cardiopulmonary status, despite being optimal - on Rocephin and Flagyl, ID following Case discussed and reviewed with attending Dr. Ferrer <Lauro Ferrer - Last Filed: 03/02/18 10:52> Objective - Vital Signs/Intake and Output Vital Signs (last 24 hours): Temp Pulse Resp BP Pulse Ox 98.4 F 89 20 119/64 95 03/02/18 06:00 03/02/18 06:00 03/02/18 06:00 03/02/18 06:00 03/02/18 06:00 Intake and Output: 03/02/18 03/02/18 06:59 18:59 Intake Total 300 Balance 300 - Medications Medications: Current Medications Acetaminophen (Tylenol 325mg Tab) 650 mg PO Q4H PRN PRN Reason: Pain, moderate (4-7) Acetaminophen (Tylenol 325mg Tab) 650 mg PO Q6 PRN PRN Reason: TEMP>=99.5F Acetaminophen (Tylenol 650 Mg Supp) 650 mg RC Q6H PRN PRN Reason: TEMP>=99.5F Al Hydrox/Mg Hydrox/Simethicone (Maalox Plus 30 Ml) 30 ml PO Q4 PRN PRN Reason: Indigestion / Heartburn Last Admin: 02/26/18 20:26 Dose: 30 ml Albuterol/Ipratropium (Duoneb 3 Mg/0.5 Mg (3 Ml) Ud) 3 ml IH [id number] [facility] Last Admin: 03/02/18 08:18 Dose: 3 ml Alprazolam (Xanax) 0.5 mg PO BID PRN; Protocol PRN Reason: Anxiety Stop: 03/04/18 10:01 Last Admin: 02/28/18 11:30 Dose: 0.5 mg Ampicillin (Ampicillin) 500 mg PO BID JEFFERY PRN Reason: Protocol Last Admin: 03/02/18 09:33 Dose: 500 mg Ascorbic Acid (Vitamin C 500 Mg Tab) 500 mg PO DAILY [facility] Last Admin: 03/02/18 09:33 Dose: 500 mg Atorvastatin Calcium (Lipitor) 10 mg PO DAILY [facility] Last Admin: 03/02/18 09:34 Dose: 10 mg Betamethasone/Clotrimazole (Lotrisone) 0 gm TOP BID [facility] Last Admin: 03/02/18 09:33 Dose: 1 applic Budesonide (Pulmicort Respules) 0.5 mg IH [id number] [facility] Last Admin: 03/02/18 08:18 Dose: 0.5 mg Diltiazem HCl (Cardizem) 30 mg PO Q8 [facility] Last Admin: 03/02/18 05:39 Dose: Not Given Docusate Sodium (Colace) 100 mg PO TID [facility] Last Admin: 03/02/18 09:34 Dose: 100 mg Donepezil HCl (Aricept) 10 mg PO HS [facility] Last Admin: 03/01/18 21:18 Dose: Not Given Heparin Sodium (Porcine) (Heparin) 5,000 units SC Q12 [facility] PRN Reason: Protocol Last Admin: 03/02/18 09:32 Dose: 5,000 units Lactated Ringer's (Lactated Ringer's) 1,000 mls @ 60 mls/hr IV .[id number] [facility] Last Admin: 03/01/18 21:15 Dose: 60 mls/hr Insulin Human Regular (Humulin R High) 0 units SC ACHS [facility] PRN Reason: Protocol Last Admin: 03/02/18 08:18 Dose: Not Given Lactobacillus Acidophilus (Bacid Acidophilus) 1 cap PO BID [facility] Last Admin: 03/02/18 09:33 Dose: 1 cap Ondansetron HCl (Zofran Inj) 4 mg IVP Q4H PRN PRN Reason: Nausea/Vomiting Pantoprazole Sodium (Protonix Ec Tab) 40 mg PO 0600 [facility] Last Admin: 03/02/18 05:37 Dose: 40 mg Polyethylene Glycol (Miralax) 17 gm PO BID [facility] Last Admin: 03/02/18 09:40 Dose: Not Given Prednisone (Prednisone Tab) 2.5 mg PO DAILY [facility] Last Admin: 03/02/18 09:33 Dose: 2.5 mg Sildenafil Citrate (Revatio) 20 mg PO BID [facility] Last Admin: 03/02/18 09:33 Dose: 20 mg Silver Sulfadiazine (Silvadene 1% 25 Gm) 1 gm TP DAILY PRN PRN Reason: Rash Tramadol HCl (Ultram) 50 mg PO TID PRN PRN Reason: pain Last Admin: 03/02/18 09:34 Dose: 50 mg Zinc Sulfate (Zinc Sulfate 220 Mg Cap) 220 mg PO DAILY [facility] Last Admin: 03/02/18 09:33 Dose: 220 mg - Labs Labs: 03/02/18 06:25 03/02/18 06:25 PT 11.9 SECONDS (9.4-12.5) 02/24/18 21:06 INR 1.04 (0.93-1.08) 02/24/18 21:06 APTT 26.0 Seconds (25.1-36.5) 02/24/18 21:06 Assessment and Plan - Assessment and Plan (Free Text) Assessment: Dr Carmona recommended D & C not endometrial sampling Plavix contradicts this(on hold) and Pulmonology requests no anesthesia(OK Local -cervical block) No urine or vaginal cultures obtained(?Pt refusal) obtained yet--on Ab To get cath specimen NB NO vaginal leakage despite BM This consult done under my direct supervision Tyrel Ferrer MD FACS
--- NOTE | 2018-02-28 07:48 | PN ---
DATE: 02/28/2018 PULMONARY NOTE SUBJECTIVE: The patient appears comfortable this morning. She is not short of breath at rest. OBJECTIVE: VITAL SIGNS: Temperature is 98, pulse 87, respirations 18/20, blood pressure 112/57. Oxygen saturation on nasal cannula is 99%. HEENT: Normocephalic, atraumatic. No JVD. CARDIOVASCULAR: Systolic ejection murmur at the lower left sternal border. No S3 gallop. LUNGS: Decreased breath sounds at the bases. Very minimal rhonchi. No wheezing. EXTREMITIES: Positive for mild edema. No cyanosis, no clubbing. Calves are nontender to palpation. GI: Abdomen is soft, nontender and nondistended. Bowel sounds are positive. SKIN: No acute rash. NEUROLOGIC: Exam limited at the present time. PERTINENT LABORATORY DATA: Barium enema was done yesterday and reviewed. There is no evidence of rectovaginal fistula. IMPRESSION: 1. Rule out colovaginal fistula. 2. End-stage chronic obstructive pulmonary disease. 3. Pulmonary hypertension. 4. Coronary artery disease. 5. Anemia. PLAN: The patient appears comfortable this morning. She is not short of breath at rest. She does state to feeling better overall. I did discuss the case with the night nurse at length. The night nurse stated that the patient had a good night. The night nurse also stated that the patient did have a bowel movement, with no evidence of stool coming out of her vagina. On physical exam, there is no significant bronchospasm noted. In addition, there is no significant alveolar-arterial gradient. I will continue with the current nebulizer treatments and low-dose oral steroids for now. The patient also remains on Revatio - for her pulmonary hypertension. Inputs by Infectious Disease, Neurology and Cardiology are also noted. Clinical status of the patient does appear improved - compared to her initial presentation. However, again, the patient's overall status/prognosis remains very guarded at best/poor. All are aware. I will discuss the above the attending physician. Evgeny Briggs MD [facility]
[2018-02-28] MEDS: Budesonide 0.5 mg/2 ml Inhal Susp UD IH SCH ×2 (07:53→20:33)
[2018-02-28] MEDS: Insulin Reg-HIGH-Coverage SC SCH ×4 (08:57→21:47)
--- NOTE | 2018-02-28 11:15 | PN ---
DATE: 02/28/2018 CARDIOLOGY FOLLOWUP SUBJECTIVE: The patient is without shortness of breath. PHYSICAL EXAMINATION VITAL SIGNS: Blood pressure is 124/68, heart rate is in the 90s. NECK: Negative JVD. LUNGS: Without rales. HEART: Reveals S1 and S2. EXTREMITIES: Without edema. LABORATORY DATA: Hemoglobin is 10.5. Chemistries: BUN and creatine are unremarkable. The barium enema did not reveal a colonic-vaginal fistula. IMPRESSION: 1. Stable angina. 2. Chronic obstructive pulmonary disease. 3. Pulmonary hypertension. 4. Chronic dyspnea. PLAN: Given these findings, the patient is hemodynamically stable from a cardiac perspective. Harrison Echavarria MD
[2018-02-28] MEDS: POLYETHYLENE GLYCOL 3350 17 GM/Dose PACKET PO SCH ×2 (11:22→18:46)
[2018-02-28] MEDS: Sildenafil 20 MG TAB PO SCH ×2 (11:29→18:53)
[2018-02-28] MEDS: Lactobacillus Acidophilus 500 MU Cap PO SCH ×2 (11:32→18:53)
[2018-02-28 11:56] LABS: URINE BILIRUBIN NEGATIVE (NEGATIVE); URINE BLOOD TRACE-INTACT (NEGATIVE); URINE GLUCOSE (UA) NEGATIVE (NEGATIVE); URINE LEUKOCYTE ESTERASE LARGE Leu/uL (NEGATIVE); URINE PROTEIN NEGATIVE mg/dL (<30 mg/dL); URINE UROBILINOGEN 0.2 E.U./dL (<1 E.U./dL)
[2018-02-28] MEDS: Clotrimazole/Betamethasone Cream(15 gm) TOP SCH ×2 (11:59→18:44)
[2018-02-28 12:33] LABS: URINE APPEARANCE CLEAR (CLEAR); URINE COLOR YELLOW (YELLOW)
[2018-02-28 12:44] LABS: URINE BACTERIA LARGE (NEG); URINE WBC 25 - 30 /hpf (0-6)
--- NOTE | 2018-02-28 13:29 | US ---
HISTORY: Evaluate endometrial lining COMPARISON: None available. TECHNIQUE: Transabdominal only FINDINGS: UTERUS: Measures 6.4 x 3.3 x 3.7 cm. Normal in size and appearance. No fibroid or other mass lesion seen. ENDOMETRIUM: Fluid distends the endometrial cavity. The endometrial lining is not appreciable by transabdominal technique. This is an abnormal finding and further evaluation is advised. CERVIX: No cervical abnormality identified. RIGHT OVARY: Measures 1.8 x 1.6 x 2.2 cm. No solid mass. Normal flow. Simple cyst, 1.4 x 1.5 x 1.6 cm. LEFT OVARY: Not visualized FREE FLUID: No significant free fluid noted. OTHER FINDINGS: None. IMPRESSION: Fluid distends the endometrial cavity. This may be due to cervical stenosis or cervical neoplasm. Further evaluation is advised. Incidental 1.6 cm right ovarian cyst. Preliminary interpretation of this examination was reported by [facility] at 8:09 p.m. on 02/27/2018. There is concurrence of this report with the preliminary interpretation.
--- NOTE | 2018-02-28 14:26 | CP.PCM.PN ---
<Miguel Jorge - Last Filed: 02/28/18 14:23> Subjective - Date & Time of Evaluation Date of Evaluation: 02/28/18 Time of Evaluation: 14:23 - Subjective Subjective: Patient seen and examined this AM. No acute events reported overnight. Patient reports pain associated with lower back and right hip. Objective - Vital Signs/Intake and Output Vital Signs (last 24 hours): Temp Pulse Resp BP Pulse Ox 98.2 F 99 H 22 124/68 95 02/28/18 07:42 02/28/18 07:42 02/28/18 07:42 02/28/18 07:42 02/28/18 07:42 Intake and Output: 02/28/18 02/28/18 06:59 18:59 Intake Total 300 Balance 300 - Medications Medications: Current Medications Acetaminophen (Tylenol 325mg Tab) 650 mg PO Q4H PRN PRN Reason: Pain, moderate (4-7) Acetaminophen (Tylenol 325mg Tab) 650 mg PO Q6 PRN PRN Reason: TEMP>=99.5F Acetaminophen (Tylenol 650 Mg Supp) 650 mg RC Q6H PRN PRN Reason: TEMP>=99.5F Al Hydrox/Mg Hydrox/Simethicone (Maalox Plus 30 Ml) 30 ml PO Q4 PRN PRN Reason: Indigestion / Heartburn Last Admin: 02/26/18 20:26 Dose: 30 ml Albuterol/Ipratropium (Duoneb 3 Mg/0.5 Mg (3 Ml) Ud) 3 ml IH [id number] [facility] Last Admin: 02/28/18 13:29 Dose: 3 ml Alprazolam (Xanax) 0.5 mg PO BID PRN; Protocol PRN Reason: Anxiety Stop: 03/04/18 10:01 Last Admin: 02/28/18 11:30 Dose: 0.5 mg Ascorbic Acid (Vitamin C 500 Mg Tab) 500 mg PO DAILY [facility] Last Admin: 02/27/18 11:27 Dose: 500 mg Atorvastatin Calcium (Lipitor) 10 mg PO DAILY [facility] Last Admin: 02/28/18 11:59 Dose: 10 mg Betamethasone/Clotrimazole (Lotrisone) 0 gm TOP BID [facility] Last Admin: 02/28/18 11:59 Dose: 1 applic Budesonide (Pulmicort Respules) 0.5 mg IH [id number] [facility] Last Admin: 02/28/18 07:53 Dose: 0.5 mg Diltiazem HCl (Cardizem) 30 mg PO Q8 [facility] Last Admin: 02/28/18 13:16 Dose: Not Given Docusate Sodium (Colace) 100 mg PO TID [facility] Last Admin: 02/28/18 11:29 Dose: 100 mg Donepezil HCl (Aricept) 10 mg PO HS [facility] Last Admin: 02/27/18 21:57 Dose: Not Given Heparin Sodium (Porcine) (Heparin) 5,000 units SC Q12 [facility] PRN Reason: Protocol Last Admin: 02/28/18 11:28 Dose: 5,000 units Lactated Ringer's (Lactated Ringer's) 1,000 mls @ 60 mls/hr IV .[id number] [facility] Last Admin: 02/27/18 20:00 Dose: 60 mls/hr Insulin Human Regular (Humulin R High) 0 units SC ACHS [facility] PRN Reason: Protocol Last Admin: 02/28/18 13:17 Dose: Not Given Lactobacillus Acidophilus (Bacid Acidophilus) 1 cap PO BID [facility] Last Admin: 02/28/18 11:32 Dose: 1 cap Ondansetron HCl (Zofran Inj) 4 mg IVP Q4H PRN PRN Reason: Nausea/Vomiting Pantoprazole Sodium (Protonix Ec Tab) 40 mg PO 0600 [facility] Last Admin: 02/28/18 05:33 Dose: 40 mg Polyethylene Glycol (Miralax) 17 gm PO BID [facility] Last Admin: 02/28/18 11:22 Dose: Not Given Prednisone (Prednisone Tab) 2.5 mg PO DAILY [facility] Last Admin: 02/28/18 11:30 Dose: 2.5 mg Sildenafil Citrate (Revatio) 20 mg PO BID [facility] Last Admin: 02/28/18 11:29 Dose: 20 mg Silver Sulfadiazine (Silvadene 1% 25 Gm) 1 gm TP DAILY PRN PRN Reason: Rash Tramadol HCl (Ultram) 50 mg PO TID PRN PRN Reason: pain Last Admin: 02/28/18 12:01 Dose: 50 mg Zinc Sulfate (Zinc Sulfate 220 Mg Cap) 220 mg PO DAILY [facility] Last Admin: 02/28/18 11:30 Dose: 220 mg - Labs Labs: 02/28/18 05:30 02/28/18 05:30 PT 11.9 SECONDS (9.4-12.5) 02/24/18 21:06 INR 1.04 (0.93-1.08) 02/24/18 21:06 APTT 26.0 Seconds (25.1-36.5) 02/24/18 21:06 - Head Exam Head Exam: ATRAUMATIC, NORMAL INSPECTION, NORMOCEPHALIC - Eye Exam Eye Exam: EOMI, PERRL - ENT Exam Additional comments: poor dentiation - Neck Exam Neck Exam: Full ROM - Respiratory Exam Respiratory Exam: Clear to Ausculation Bilateral, NORMAL BREATHING PATTERN. absent: Rhonchi, Wheezes - Cardiovascular Exam Cardiovascular Exam: REGULAR RHYTHM, +S1, +S2 - GI/Abdominal Exam GI & Abdominal Exam: Soft, Normal Bowel Sounds. absent: Distended, Rigid, Tenderness - Neurological Exam Neurological Exam: Alert, Awake - Psychiatric Exam Psychiatric exam: Anxious, Depressed - Skin Skin Exam: Dry, Warm Assessment and Plan - Assessment and Plan (Free Text) Assessment: 82 year old female with past medical history of severe COPD, HTN, pulmonary HTN , CHF, dyslipidemia, recurrent UTI who is admitted for fecal discharge from vaginal canal. patient underwent barium enema showing no sign of recovaginal fistula. General surgery, ID, PRODUCE SORTER, pulm on consult. Plan: COPD: - Severe COPD - Continue home medications, revatio, steroids, pulmicort - Duonebs - Maintain SaO2 >92% Transaminitis - Elevated ALT>AST, improving from admission - Hepatitis panel negative - Alk phos wnl - Abd/Pelvis CT showing no gross lesion or ductal dilation of liver Stool with in vaginal canal - Barium Enema: No evidence of rectovaginal fistula - Stool occult negative - Abd/Pelvis CT: Endometrial appears abnormally distended with fluid. Followup evaluation with dedicated ultrasound recommended. Clinical evaluation necessary. Sigmoid colon abuts uterus, enteric contrast has not reached distal colon limiting evaluation. Left-sided ventral hernia, containing the mid transverse colon. Left colon is relatively collapsed. Cannot exclude mild obstructive changes. Inferior to this is a small right- sided ventral hernia containing small bowel loop without evidence of obstruction. Correlate clinically to exclude incarceration. Appearance is similar to prior study. Again noted in the pelvis is a 2 cm cystic density posteriorly abutting small bowel loops, uncertain etiology, appearance not significantly changed. Large hiatal hernia. Colonic diverticula. Interval grade 1 compression fracture of L1. Vertebroplasty with residual compression deformity of T12 again noted. - General surgery consulted, recs as follows - Await final recommendations - Needs endometrial aspiration - VERONA/LIGHTING FIXTURES DECORATOR consulted and following - endometrial sampling with Pipelle or D and C when medically prepared for surgery - Pulm consulted and cleared for surgery as high risk - ID consulted - Trevon Potter day 4 - Monitor clinically - Pulmonology - very high risk for postoperative pulmonary complications, severe COPD, CAD s/p stent, clear for surgery - Follow up GS and PRODUCE SORTER recs/plan ?dementia - Neuro consulted - Dementia - Continue Aricept 10mg - Continue rehab Hx of dyslipidemia - Continue home Lipitor GI/DVT ppx: - Protonix - Heparin Case and plan discussed with attending <Blaine Melo - Last Filed: 02/28/18 17:46> Objective - Vital Signs/Intake and Output Vital Signs (last 24 hours): Temp Pulse Resp BP Pulse Ox 98.2 F 99 H 22 124/68 95 02/28/18 07:42 02/28/18 07:42 02/28/18 07:42 02/28/18 07:42 02/28/18 07:42 Intake and Output: 02/28/18 02/28/18 06:59 18:59 Intake Total 300 720 Balance 300 720 - Medications Medications: Current Medications Acetaminophen (Tylenol 325mg Tab) 650 mg PO Q4H PRN PRN Reason: Pain, moderate (4-7) Acetaminophen (Tylenol 325mg Tab) 650 mg PO Q6 PRN PRN Reason: TEMP>=99.5F Acetaminophen (Tylenol 650 Mg Supp) 650 mg RC Q6H PRN PRN Reason: TEMP>=99.5F Al Hydrox/Mg Hydrox/Simethicone (Maalox Plus 30 Ml) 30 ml PO Q4 PRN PRN Reason: Indigestion / Heartburn Last Admin: 02/26/18 20:26 Dose: 30 ml Albuterol/Ipratropium (Duoneb 3 Mg/0.5 Mg (3 Ml) Ud) 3 ml IH [id number] [facility] Last Admin: 02/28/18 13:29 Dose: 3 ml Alprazolam (Xanax) 0.5 mg PO BID PRN; Protocol PRN Reason: Anxiety Stop: 03/04/18 10:01 Last Admin: 02/28/18 11:30 Dose: 0.5 mg Ascorbic Acid (Vitamin C 500 Mg Tab) 500 mg PO DAILY [facility] Last Admin: 02/27/18 11:27 Dose: 500 mg Atorvastatin Calcium (Lipitor) 10 mg PO DAILY [facility] Last Admin: 02/28/18 11:59 Dose: 10 mg Betamethasone/Clotrimazole (Lotrisone) 0 gm TOP BID [facility] Last Admin: 02/28/18 11:59 Dose: 1 applic Budesonide (Pulmicort Respules) 0.5 mg IH [id number] [facility] Last Admin: 02/28/18 07:53 Dose: 0.5 mg Diltiazem HCl (Cardizem) 30 mg PO Q8 [facility] Last Admin: 02/28/18 13:16 Dose: Not Given Docusate Sodium (Colace) 100 mg PO TID [facility] Last Admin: 02/28/18 11:29 Dose: 100 mg Donepezil HCl (Aricept) 10 mg PO HS [facility] Last Admin: 02/27/18 21:57 Dose: Not Given Heparin Sodium (Porcine) (Heparin) 5,000 units SC Q12 [facility] PRN Reason: Protocol Last Admin: 02/28/18 11:28 Dose: 5,000 units Lactated Ringer's (Lactated Ringer's) 1,000 mls @ 60 mls/hr IV .[id number] [facility] Last Admin: 02/27/18 20:00 Dose: 60 mls/hr Insulin Human Regular (Humulin R High) 0 units SC ACHS [facility] PRN Reason: Protocol Last Admin: 02/28/18 13:17 Dose: Not Given Lactobacillus Acidophilus (Bacid Acidophilus) 1 cap PO BID [facility] Last Admin: 02/28/18 11:32 Dose: 1 cap Ondansetron HCl (Zofran Inj) 4 mg IVP Q4H PRN PRN Reason: Nausea/Vomiting Pantoprazole Sodium (Protonix Ec Tab) 40 mg PO 0600 [facility] Last Admin: 02/28/18 05:33 Dose: 40 mg Polyethylene Glycol (Miralax) 17 gm PO BID [facility] Last Admin: 02/28/18 11:22 Dose: Not Given Prednisone (Prednisone Tab) 2.5 mg PO DAILY [facility] Last Admin: 02/28/18 11:30 Dose: 2.5 mg Sildenafil Citrate (Revatio) 20 mg PO BID [facility] Last Admin: 02/28/18 11:29 Dose: 20 mg Silver Sulfadiazine (Silvadene 1% 25 Gm) 1 gm TP DAILY PRN PRN Reason: Rash Tramadol HCl (Ultram) 50 mg PO TID PRN PRN Reason: pain Last Admin: 02/28/18 12:01 Dose: 50 mg Zinc Sulfate (Zinc Sulfate 220 Mg Cap) 220 mg PO DAILY [facility] Last Admin: 02/28/18 11:30 Dose: 220 mg - Labs Labs: 02/28/18 05:30 02/28/18 05:30 PT 11.9 SECONDS (9.4-12.5) 02/24/18 21:06 INR 1.04 (0.93-1.08) 02/24/18 21:06 APTT 26.0 Seconds (25.1-36.5) 02/24/18 21:06 Attending/Attestation - Attestation I have personally seen and examined this patient.: Yes I have fully participated in the care of the patient.: Yes I have reviewed all pertinent clinical information, including history, physical exam and plan: Yes Notes (Text): 02/28/18 17:44 Medical record note made by the resident after discussion with my direction and input after the patient was personally seen and examined by me. I have reviewed the chart and agree that the record accurately reflects by personal performance of the history, physical exam, data review, and medical decision-making, in the course for the patient. I have also personally directed the plan of care. 82 yrs female with history of CAD ,SP Cardiac stents ,COPD, pulmonary HTN, chronic hypoxic Respiratory failure on home oxygen, , HTN, Hyperlipidemia and osteoporosis is admitted with Possible colo-vaginal fistula.Patient was evaluated by Surgery and had Barium enema for further evaluation.Barium enema is negative for any fistula, case was discussed with surgery , at this plan is to advance her diet and monitor Patient was evaluated by OBGYN ,Pelvic USG and D/C was recommended, which patient is refusing at this time.Pelvic USG showed enlarged fluid filled uterus, concern for malignancy. has discussed finding with OBGYN.We will follow up with OBGYN Pulmonary evaluation is noted, high risk for surgery as per Pulmonary. Mildly elevated transaminase , etiology is unclear, level are coming down, we will monitor. COPD is stable, patient is not wheezing, she is on base line home oxygen via nasal canula. Prognosis is guarded.
--- NOTE | 2018-02-28 17:28 | CP.PCM.PN ---
Subjective - Date & Time of Evaluation Date of Evaluation: 02/28/18 Time of Evaluation: 10:15 - Subjective Subjective: No fevers, not in distress. No nausea or vomiting. Objective - Vital Signs/Intake and Output Vital Signs (last 24 hours): Temp Pulse Resp BP Pulse Ox 98.0 F 87 21 112/57 L 99 02/27/18 18:00 02/27/18 18:00 02/27/18 18:00 02/27/18 18:00 02/27/18 18:00 Intake and Output: 02/28/18 02/28/18 06:59 18:59 Intake Total 300 Balance 300 - Medications Medications: Current Medications Acetaminophen (Tylenol 325mg Tab) 650 mg PO Q4H PRN PRN Reason: Pain, moderate (4-7) Acetaminophen (Tylenol 325mg Tab) 650 mg PO Q6 PRN PRN Reason: TEMP>=99.5F Acetaminophen (Tylenol 650 Mg Supp) 650 mg RC Q6H PRN PRN Reason: TEMP>=99.5F Al Hydrox/Mg Hydrox/Simethicone (Maalox Plus 30 Ml) 30 ml PO Q4 PRN PRN Reason: Indigestion / Heartburn Last Admin: 02/26/18 20:26 Dose: 30 ml Albuterol/Ipratropium (Duoneb 3 Mg/0.5 Mg (3 Ml) Ud) 3 ml IH [id number] [facility] Last Admin: 02/28/18 02:30 Dose: Not Given Alprazolam (Xanax) 0.5 mg PO BID PRN; Protocol PRN Reason: Anxiety Stop: 03/04/18 10:01 Ascorbic Acid (Vitamin C 500 Mg Tab) 500 mg PO DAILY [facility] Last Admin: 02/27/18 11:27 Dose: 500 mg Atorvastatin Calcium (Lipitor) 10 mg PO DAILY [facility] Last Admin: 02/26/18 09:54 Dose: 10 mg Betamethasone/Clotrimazole (Lotrisone) 0 gm TOP BID [facility] Last Admin: 02/27/18 17:58 Dose: 1 applic Budesonide (Pulmicort Respules) 0.5 mg IH [id number] [facility] Last Admin: 02/27/18 21:00 Dose: 0.5 mg Diltiazem HCl (Cardizem) 30 mg PO Q8 [facility] Last Admin: 02/28/18 05:33 Dose: Not Given Docusate Sodium (Colace) 100 mg PO TID [facility] Last Admin: 02/27/18 17:55 Dose: 100 mg Donepezil HCl (Aricept) 10 mg PO HS [facility] Last Admin: 02/27/18 21:57 Dose: Not Given Heparin Sodium (Porcine) (Heparin) 5,000 units SC Q12 [facility] PRN Reason: Protocol Last Admin: 02/27/18 21:58 Dose: 5,000 units Metronidazole (Flagyl) 500 mg in 100 mls @ 100 mls/hr IVPB Q8 [facility] PRN Reason: Protocol Last Admin: 02/28/18 05:32 Dose: 100 mls/hr Ceftriaxone Sodium (Rocephin 1 Gram Ivpb) 1 gm in 100 mls @ 100 mls/hr IVPB DAILY [facility] PRN Reason: Protocol Last Admin: 02/27/18 11:26 Dose: 100 mls/hr Lactated Ringer's (Lactated Ringer's) 1,000 mls @ 60 mls/hr IV .[id number] [facility] Last Admin: 02/27/18 20:00 Dose: 60 mls/hr Insulin Human Regular (Humulin R High) 0 units SC ACHS [facility] PRN Reason: Protocol Last Admin: 02/27/18 21:58 Dose: Not Given Lactobacillus Acidophilus (Bacid Acidophilus) 1 cap PO BID [facility] Last Admin: 02/27/18 17:54 Dose: 1 cap Ondansetron HCl (Zofran Inj) 4 mg IVP Q4H PRN PRN Reason: Nausea/Vomiting Pantoprazole Sodium (Protonix Ec Tab) 40 mg PO 0600 [facility] Last Admin: 02/28/18 05:33 Dose: 40 mg Polyethylene Glycol (Miralax) 17 gm PO BID [facility] Last Admin: 02/27/18 17:59 Dose: 17 gm Prednisone (Prednisone Tab) 2.5 mg PO DAILY [facility] Last Admin: 02/27/18 11:26 Dose: 2.5 mg Sildenafil Citrate (Revatio) 20 mg PO BID [facility] Last Admin: 02/27/18 17:59 Dose: 20 mg Silver Sulfadiazine (Silvadene 1% 25 Gm) 1 gm TP DAILY PRN PRN Reason: Rash Tramadol HCl (Ultram) 50 mg PO TID PRN PRN Reason: pain Last Admin: 02/27/18 11:27 Dose: 50 mg Zinc Sulfate (Zinc Sulfate 220 Mg Cap) 220 mg PO DAILY [facility] Last Admin: 02/27/18 11:27 Dose: 220 mg - Labs Labs: 02/28/18 05:30 02/28/18 05:30 PT 11.9 SECONDS (9.4-12.5) 02/24/18 21:06 INR 1.04 (0.93-1.08) 02/24/18 21:06 APTT 26.0 Seconds (25.1-36.5) 02/24/18 21:06 - Constitutional Appears: Chronically Ill - Head Exam Head Exam: NORMAL INSPECTION - Neck Exam Neck Exam: absent: Meningismus - Respiratory Exam Respiratory Exam: Decreased Breath Sounds - Cardiovascular Exam Cardiovascular Exam: +S1, +S2 - GI/Abdominal Exam GI & Abdominal Exam: Soft. absent: Tenderness Assessment and Plan - Assessment and Plan (Free Text) Plan: Assessment R/O entero-vaginal fistula, R/O endometrial abnormality S/P systemic inflammatory response syndrome, S/P severe sepsis with hypoxic respiratory failure S/P VDRF, S/P HCAP, new onset, right lower lobe on top of acute bronchitis chronic CHF end-stage COPD pulmonary HTN CAD dyslipidemia Plan will hold off Rocephin and Flagyl for now since there is no sign of sepsis - will follow up cultures Barium enema does not show fistula follow up Senior Ecologist follow up regarding Endometrial thickening as seen on the CT A/P will continue to monitor clinically
[2018-02-28 17:34] LABS: URINE BILIRUBIN NEGATIVE (NEGATIVE); URINE BLOOD SMALL (NEGATIVE); URINE GLUCOSE (UA) NEGATIVE (NEGATIVE); URINE LEUKOCYTE ESTERASE LARGE Leu/uL (NEGATIVE); URINE PROTEIN 30 mg/dL (<30 mg/dL); URINE UROBILINOGEN 0.2 E.U./dL (<1 E.U./dL)
[2018-02-28 17:42] LABS: URINE APPEARANCE SL CLOUDY (CLEAR); URINE COLOR YELLOW (YELLOW)
[2018-02-28 17:43] LABS: URINE BACTERIA LARGE (NEG); URINE WBC TNTC /hpf (0-6)
[2018-02-28 17:44] LABS: URINE AMORPHOUS SEDIMENT FEW; URINE RBC 25 - 30 /hpf (0-2)
[2018-03-01] MEDS: Albuterol-Ipratrop 3 mg / 0.5 (3 ml) UD IH SCH ×4 (01:56→20:17)
[2018-03-01] MEDS: Pantoprazole 40 mg EC Tab PO SCH (05:15)
[2018-03-01 06:35] LABS: BASO # 0.03 K/mm3 (0.0-2.0); BASO % 0.5 % (0.0-3.0); EOS # 0.3 (0.0-0.7); EOS % 5.4 % (1.5-5.0); GRAN # 3.78 (1.4-6.5); GRAN % 68.2 % (50.0-68.0); HEMOGLOBIN 10.4 g/dL (12.0-16.0); LYMPH % 17.3 % (22.0-35.0); MEAN CELL VOLUME 93.8 fl (80.0-105.0); MEAN CORPUSCULAR HEMOGLOBIN 30.6 pg (25.0-35.0); MEAN CORPUSCULAR HGB CONC 32.6 g/dl (31.0-37.0); MEAN PLATELET VOLUME 11.6 fl (7.0-11.0); MONO # 0.5 (0.1-0.6); MONO % 8.6 % (1.0-6.0); RBC 3.4 10^6/uL (3.5-6.1); RED CELL DISTRIBUTION WIDTH 14.7 % (11.5-14.5); WHITE BLOOD COUNT 5.6 10^3/ul (4.5-11.0)
[2018-03-01 06:43] LABS: ALB/GLOB RATIO 1.4 (1.1-1.8); ALT/SGPT 66 U/L (7-56); AST/SGOT 23 U/L (14-36); BLOOD UREA NITROGEN 9 mg/dL (7-21); CALCIUM 9.5 mg/dL (8.4-10.5); GFR AFRICAN-AMERICAN > 60; GFR NON-AFRICAN AMERICAN > 60
[2018-03-01] MEDS: Budesonide 0.5 mg/2 ml Inhal Susp UD IH SCH ×2 (07:38→20:17)
--- NOTE | 2018-03-01 08:19 | PN ---
DATE: 03/01/2018 PULMONARY NOTE SUBJECTIVE: The patient appears comfortable this morning. She is not short of breath at rest. PHYSICAL EXAMINATION: VITAL SIGNS: (Last noted in the computer): Temperature is 97.6, pulse this morning is approximately 88, respiratory rate 18-20, blood pressure 124/72. Oxygen saturation on nasal cannula is 99%. HEENT: Normocephalic, atraumatic. No JVD. CARDIOVASCULAR: Systolic ejection murmur at the lower left sternal border. No S3 gallop. LUNGS: Decreased breath sounds at the bases. Very minimal rhonchi. No wheezing. EXTREMITIES: Positive for mild edema. No cyanosis or clubbing. Calves are nontender to palpation. GASTROINTESTINAL: Abdomen is soft, nontender, and nondistended. Bowel sounds are positive. SKIN: No acute rash. NEUROLOGIC: Limited at the present time. IMPRESSION: 1. Rule out colovaginal fistula. 2. End-stage chronic obstructive pulmonary disease. 3. Pulmonary hypertension. 4. Coronary artery disease. 5. Anemia. PLAN: The patient appears comfortable this morning. She is not short of breath at rest. She does state to feeling better overall. I did discuss the case with the night nurse at length. The night nurse stated that the patient had a very good night. On physical exam, there is no significant bronchospasm noted. In addition, the oxygen saturation on 2 liters nasal cannula is 99%. I will continue with the current nebulizer treatments and low-dose oral steroids for now. I will also continue with the Revatio - for her pulmonary hypertension. Inputs by Infectious Disease and Cardiology are also noted. I would also continue with the surgical evaluation. I did discuss the case at length with Dr. Ferrer yesterday. Clinical status of the patient appears improved - compared to her initial presentation. However, again, her future status/prognosis remains very guarded at best/poor. I will discuss the above with the attending physician. Evgeny rBiggs MD [facility] CENTEROfelia
[2018-03-01] MEDS: Insulin Reg-HIGH-Coverage SC SCH ×4 (08:34→21:25)
[2018-03-01] MEDS: POLYETHYLENE GLYCOL 3350 17 GM/Dose PACKET PO SCH ×2 (09:28→18:49)
[2018-03-01] MEDS: Sildenafil 20 MG TAB PO SCH ×2 (09:29→18:49)
[2018-03-01] MEDS: Lactobacillus Acidophilus 500 MU Cap PO SCH ×2 (09:29→18:49)
[2018-03-01] MEDS: Clotrimazole/Betamethasone Cream(15 gm) TOP SCH ×3 (09:31→17:43)
[2018-03-01] MEDS ORDERED: cefTRIAXone 1 gm 1 GM/100 ML BAG IVPB SCH (10:30)
--- NOTE | 2018-03-01 11:53 | CP.PCM.PN ---
<Ferny Bullard - Last Filed: 03/01/18 11:45> Subjective - Date & Time of Evaluation Date of Evaluation: 03/01/18 Time of Evaluation: 09:45 - Subjective Subjective: Ferny Bullard PGY1 Surgical Progress Note for Dr. Ferrer Patient was seen and examined at bedside. she has no complaints and no overnight events, states she had a bowel movement. it was discussed with patient that she would require endometrial biopsy and patient is agreeable. denies vaginal discharge (verified by nurse), fevers/chills, n/v Objective - Vital Signs/Intake and Output Vital Signs (last 24 hours): Temp Pulse Resp BP Pulse Ox 97.8 F 89 20 139/88 98 03/01/18 06:00 03/01/18 06:00 03/01/18 06:00 03/01/18 06:00 03/01/18 06:00 Intake and Output: 03/01/18 03/01/18 06:59 18:59 Intake Total 360 300 Output Total 100 Balance 360 200 - Medications Medications: Current Medications Acetaminophen (Tylenol 325mg Tab) 650 mg PO Q4H PRN PRN Reason: Pain, moderate (4-7) Acetaminophen (Tylenol 325mg Tab) 650 mg PO Q6 PRN PRN Reason: TEMP>=99.5F Acetaminophen (Tylenol 650 Mg Supp) 650 mg RC Q6H PRN PRN Reason: TEMP>=99.5F Al Hydrox/Mg Hydrox/Simethicone (Maalox Plus 30 Ml) 30 ml PO Q4 PRN PRN Reason: Indigestion / Heartburn Last Admin: 02/26/18 20:26 Dose: 30 ml Albuterol/Ipratropium (Duoneb 3 Mg/0.5 Mg (3 Ml) Ud) 3 ml IH [id number] [facility] Last Admin: 03/01/18 07:38 Dose: 3 ml Alprazolam (Xanax) 0.5 mg PO BID PRN; Protocol PRN Reason: Anxiety Stop: 03/04/18 10:01 Last Admin: 02/28/18 11:30 Dose: 0.5 mg Ascorbic Acid (Vitamin C 500 Mg Tab) 500 mg PO DAILY [facility] Last Admin: 03/01/18 09:30 Dose: 500 mg Atorvastatin Calcium (Lipitor) 10 mg PO DAILY [facility] Last Admin: 03/01/18 09:29 Dose: 10 mg Betamethasone/Clotrimazole (Lotrisone) 0 gm TOP BID [facility] Last Admin: 03/01/18 09:40 Dose: Not Given Budesonide (Pulmicort Respules) 0.5 mg IH [id number] [facility] Last Admin: 03/01/18 07:38 Dose: 0.5 mg Diltiazem HCl (Cardizem) 30 mg PO Q8 [facility] Last Admin: 02/28/18 21:46 Dose: Not Given Docusate Sodium (Colace) 100 mg PO TID [facility] Last Admin: 03/01/18 09:29 Dose: 100 mg Donepezil HCl (Aricept) 10 mg PO HS [facility] Last Admin: 02/28/18 21:46 Dose: Not Given Heparin Sodium (Porcine) (Heparin) 5,000 units SC Q12 [facility] PRN Reason: Protocol Last Admin: 03/01/18 09:30 Dose: 5,000 units Lactated Ringer's (Lactated Ringer's) 1,000 mls @ 60 mls/hr IV .[id number] [facility] Last Admin: 02/27/18 20:00 Dose: 60 mls/hr Ceftriaxone Sodium (Rocephin 1 Gram Ivpb) 1 gm in 100 mls @ 100 mls/hr IVPB DAILY [facility] PRN Reason: Protocol Last Admin: 03/01/18 10:46 Dose: 100 mls/hr Insulin Human Regular (Humulin R High) 0 units SC ACHS [facility] PRN Reason: Protocol Last Admin: 03/01/18 08:34 Dose: Not Given Lactobacillus Acidophilus (Bacid Acidophilus) 1 cap PO BID [facility] Last Admin: 03/01/18 09:29 Dose: 1 cap Ondansetron HCl (Zofran Inj) 4 mg IVP Q4H PRN PRN Reason: Nausea/Vomiting Pantoprazole Sodium (Protonix Ec Tab) 40 mg PO 0600 [facility] Last Admin: 03/01/18 05:15 Dose: 40 mg Polyethylene Glycol (Miralax) 17 gm PO BID [facility] Last Admin: 03/01/18 09:28 Dose: 17 gm Prednisone (Prednisone Tab) 2.5 mg PO DAILY [facility] Last Admin: 03/01/18 09:29 Dose: 2.5 mg Sildenafil Citrate (Revatio) 20 mg PO BID [facility] Last Admin: 03/01/18 09:29 Dose: 20 mg Silver Sulfadiazine (Silvadene 1% 25 Gm) 1 gm TP DAILY PRN PRN Reason: Rash Tramadol HCl (Ultram) 50 mg PO TID PRN PRN Reason: pain Last Admin: 02/28/18 12:01 Dose: 50 mg Zinc Sulfate (Zinc Sulfate 220 Mg Cap) 220 mg PO DAILY [facility] Last Admin: 03/01/18 09:29 Dose: 220 mg - Labs Labs: 03/01/18 06:00 03/01/18 06:00 PT 11.9 SECONDS (9.4-12.5) 02/24/18 21:06 INR 1.04 (0.93-1.08) 02/24/18 21:06 APTT 26.0 Seconds (25.1-36.5) 02/24/18 21:06 - Additional Findings Additional findings: - Constitutional Appears: Well, Non-toxic, No Acute Distress - Head Exam Head Exam: NORMAL INSPECTION - Eye Exam Eye Exam: Normal appearance - ENT Exam ENT Exam: Mucous Membranes Moist - Neck Exam Neck Exam: Normal Inspection - Respiratory Exam Respiratory Exam: NORMAL BREATHING PATTERN - Cardiovascular Exam Cardiovascular Exam: RRR - GI/Abdominal Exam GI & Abdominal Exam: Soft, Normal Bowel Sounds. absent: Distended, Tenderness - Extremities Exam Extremities Exam: Full ROM - Back Exam Back Exam: NORMAL INSPECTION - Neurological Exam Neurological Exam: Awake - Psychiatric Exam Psychiatric exam: Normal Mood - Skin Skin Exam: Normal Color Assessment and Plan - Assessment and Plan (Free Text) Assessment: 82 yo female with a PMH COPD, Pulmomonary HTN, CAD with stents who presents with vaginal discharge possibly with uterus/cervical etiology, and unlikely due to rectovaginal fistula Plan vaginal discharge likely 2/2 uterus pathology vs entero-/colonic-vaginal fistula - UTI also noted and is being treated w/ Rocephin - urine cx positive for G+ cocci - it was discussed with the patient that she requires an endometrial sample to be tested for cytology and cultured; will required endometial catheter - pelvic U/S showed fluid distention in endometrial cavity due to cervical stenosis vs neoplasm - CT w/ contrast showed two ventral hernias containing loops of small bowel w/o obstruction, contrast in colon and fluid in endometrial canal - barium enema showed no evidence of rectovaginal fistula - [employer] Support Teacher, Dr. Anand recommending endometrial sampling - Pulm cleared patient for surgery but patient is high risk for postop pulm complications - Cardio cleared patient for surgery but patient is at increased risk due to cardiopulmonary status, despite being optimal Case discussed and reviewed with attending Dr. Ferrer <Lauro Ferrer - Last Filed: 03/02/18 10:54> Objective - Vital Signs/Intake and Output Vital Signs (last 24 hours): Temp Pulse Resp BP Pulse Ox 98.4 F 89 20 119/64 95 03/02/18 06:00 03/02/18 06:00 03/02/18 06:00 03/02/18 06:00 03/02/18 06:00 Intake and Output: 03/02/18 03/02/18 06:59 18:59 Intake Total 300 Balance 300 - Medications Medications: Current Medications Acetaminophen (Tylenol 325mg Tab) 650 mg PO Q4H PRN PRN Reason: Pain, moderate (4-7) Acetaminophen (Tylenol 325mg Tab) 650 mg PO Q6 PRN PRN Reason: TEMP>=99.5F Acetaminophen (Tylenol 650 Mg Supp) 650 mg RC Q6H PRN PRN Reason: TEMP>=99.5F Al Hydrox/Mg Hydrox/Simethicone (Maalox Plus 30 Ml) 30 ml PO Q4 PRN PRN Reason: Indigestion / Heartburn Last Admin: 02/26/18 20:26 Dose: 30 ml Albuterol/Ipratropium (Duoneb 3 Mg/0.5 Mg (3 Ml) Ud) 3 ml IH [id number] [facility] Last Admin: 03/02/18 08:18 Dose: 3 ml Alprazolam (Xanax) 0.5 mg PO BID PRN; Protocol PRN Reason: Anxiety Stop: 03/04/18 10:01 Last Admin: 02/28/18 11:30 Dose: 0.5 mg Ampicillin (Ampicillin) 500 mg PO BID [facility] PRN Reason: Protocol Last Admin: 03/02/18 09:33 Dose: 500 mg Ascorbic Acid (Vitamin C 500 Mg Tab) 500 mg PO DAILY [facility] Last Admin: 03/02/18 09:33 Dose: 500 mg Atorvastatin Calcium (Lipitor) 10 mg PO DAILY [facility] Last Admin: 03/02/18 09:34 Dose: 10 mg Betamethasone/Clotrimazole (Lotrisone) 0 gm TOP BID [facility] Last Admin: 03/02/18 09:33 Dose: 1 applic Budesonide (Pulmicort Respules) 0.5 mg IH [id number] [facility] Last Admin: 03/02/18 08:18 Dose: 0.5 mg Diltiazem HCl (Cardizem) 30 mg PO Q8 [facility] Last Admin: 03/02/18 05:39 Dose: Not Given Docusate Sodium (Colace) 100 mg PO TID [facility] Last Admin: 03/02/18 09:34 Dose: 100 mg Donepezil HCl (Aricept) 10 mg PO HS [facility] Last Admin: 03/01/18 21:18 Dose: Not Given Heparin Sodium (Porcine) (Heparin) 5,000 units SC Q12 [facility] PRN Reason: Protocol Last Admin: 03/02/18 09:32 Dose: 5,000 units Lactated Ringer's (Lactated Ringer's) 1,000 mls @ 60 mls/hr IV .[id number] [facility] Last Admin: 03/01/18 21:15 Dose: 60 mls/hr Insulin Human Regular (Humulin R High) 0 units SC ACHS [facility] PRN Reason: Protocol Last Admin: 03/02/18 08:18 Dose: Not Given Lactobacillus Acidophilus (Bacid Acidophilus) 1 cap PO BID [facility] Last Admin: 03/02/18 09:33 Dose: 1 cap Ondansetron HCl (Zofran Inj) 4 mg IVP Q4H PRN PRN Reason: Nausea/Vomiting Pantoprazole Sodium (Protonix Ec Tab) 40 mg PO 0600 [facility] Last Admin: 03/02/18 05:37 Dose: 40 mg Polyethylene Glycol (Miralax) 17 gm PO BID [facility] Last Admin: 03/02/18 09:40 Dose: Not Given Prednisone (Prednisone Tab) 2.5 mg PO DAILY [facility] Last Admin: 03/02/18 09:33 Dose: 2.5 mg Sildenafil Citrate (Revatio) 20 mg PO BID [facility] Last Admin: 03/02/18 09:33 Dose: 20 mg Silver Sulfadiazine (Silvadene 1% 25 Gm) 1 gm TP DAILY PRN PRN Reason: Rash Tramadol HCl (Ultram) 50 mg PO TID PRN PRN Reason: pain Last Admin: 03/02/18 09:34 Dose: 50 mg Zinc Sulfate (Zinc Sulfate 220 Mg Cap) 220 mg PO DAILY [facility] Last Admin: 03/02/18 09:33 Dose: 220 mg - Labs Labs: 03/02/18 06:25 03/02/18 06:25 PT 11.9 SECONDS (9.4-12.5) 02/24/18 21:06 INR 1.04 (0.93-1.08) 02/24/18 21:06 APTT 26.0 Seconds (25.1-36.5) 02/24/18 21:06 Assessment and Plan - Assessment and Plan (Free Text) Assessment: Awaiting urine c/s No vag drainage again BE Neg fistula R Nabil VEGA FACS
--- NOTE | 2018-03-01 14:07 | CP.PCM.PN ---
<Miguel Jorge - Last Filed: 03/01/18 14:08> Subjective - Date & Time of Evaluation Date of Evaluation: 03/01/18 Time of Evaluation: 14:07 - Subjective Subjective: Patient seen and examined this AM. No acute events reported overnight. Patient care plan discussed. Patient is declining further testing and endometrial biopsy. Denies complaints of chest pain, shortness of breath, nausea, vomiting, fecal matter or stool discharge from vaginal canal. Patient is AAOx3. Objective - Vital Signs/Intake and Output Vital Signs (last 24 hours): Temp Pulse Resp BP Pulse Ox 97.8 F 89 20 139/88 98 03/01/18 06:00 03/01/18 06:00 03/01/18 06:00 03/01/18 06:00 03/01/18 06:00 Intake and Output: 03/01/18 03/01/18 06:59 18:59 Intake Total 360 300 Output Total 100 Balance 360 200 - Medications Medications: Current Medications Acetaminophen (Tylenol 325mg Tab) 650 mg PO Q4H PRN PRN Reason: Pain, moderate (4-7) Acetaminophen (Tylenol 325mg Tab) 650 mg PO Q6 PRN PRN Reason: TEMP>=99.5F Acetaminophen (Tylenol 650 Mg Supp) 650 mg RC Q6H PRN PRN Reason: TEMP>=99.5F Al Hydrox/Mg Hydrox/Simethicone (Maalox Plus 30 Ml) 30 ml PO Q4 PRN PRN Reason: Indigestion / Heartburn Last Admin: 02/26/18 20:26 Dose: 30 ml Albuterol/Ipratropium (Duoneb 3 Mg/0.5 Mg (3 Ml) Ud) 3 ml IH [id number] [facility] Last Admin: 03/01/18 13:51 Dose: 3 ml Alprazolam (Xanax) 0.5 mg PO BID PRN; Protocol PRN Reason: Anxiety Stop: 03/04/18 10:01 Last Admin: 02/28/18 11:30 Dose: 0.5 mg Ascorbic Acid (Vitamin C 500 Mg Tab) 500 mg PO DAILY [facility] Last Admin: 03/01/18 09:30 Dose: 500 mg Atorvastatin Calcium (Lipitor) 10 mg PO DAILY [facility] Last Admin: 03/01/18 09:29 Dose: 10 mg Betamethasone/Clotrimazole (Lotrisone) 0 gm TOP BID [facility] Last Admin: 03/01/18 09:40 Dose: Not Given Budesonide (Pulmicort Respules) 0.5 mg IH [id number] [facility] Last Admin: 03/01/18 07:38 Dose: 0.5 mg Diltiazem HCl (Cardizem) 30 mg PO Q8 [facility] Last Admin: 02/28/18 21:46 Dose: Not Given Docusate Sodium (Colace) 100 mg PO TID [facility] Last Admin: 03/01/18 09:29 Dose: 100 mg Donepezil HCl (Aricept) 10 mg PO HS [facility] Last Admin: 02/28/18 21:46 Dose: Not Given Heparin Sodium (Porcine) (Heparin) 5,000 units SC Q12 [facility] PRN Reason: Protocol Last Admin: 03/01/18 09:30 Dose: 5,000 units Lactated Ringer's (Lactated Ringer's) 1,000 mls @ 60 mls/hr IV .[id number] [facility] Last Admin: 02/27/18 20:00 Dose: 60 mls/hr Ceftriaxone Sodium (Rocephin 1 Gram Ivpb) 1 gm in 100 mls @ 100 mls/hr IVPB DAILY [facility] PRN Reason: Protocol Last Admin: 03/01/18 10:46 Dose: 100 mls/hr Insulin Human Regular (Humulin R High) 0 units SC ACHS [facility] PRN Reason: Protocol Last Admin: 03/01/18 11:46 Dose: Not Given Lactobacillus Acidophilus (Bacid Acidophilus) 1 cap PO BID [facility] Last Admin: 03/01/18 09:29 Dose: 1 cap Ondansetron HCl (Zofran Inj) 4 mg IVP Q4H PRN PRN Reason: Nausea/Vomiting Pantoprazole Sodium (Protonix Ec Tab) 40 mg PO 0600 [facility] Last Admin: 03/01/18 05:15 Dose: 40 mg Polyethylene Glycol (Miralax) 17 gm PO BID [facility] Last Admin: 03/01/18 09:28 Dose: 17 gm Prednisone (Prednisone Tab) 2.5 mg PO DAILY [facility] Last Admin: 03/01/18 09:29 Dose: 2.5 mg Sildenafil Citrate (Revatio) 20 mg PO BID [facility] Last Admin: 03/01/18 09:29 Dose: 20 mg Silver Sulfadiazine (Silvadene 1% 25 Gm) 1 gm TP DAILY PRN PRN Reason: Rash Tramadol HCl (Ultram) 50 mg PO TID PRN PRN Reason: pain Last Admin: 03/01/18 12:23 Dose: 50 mg Zinc Sulfate (Zinc Sulfate 220 Mg Cap) 220 mg PO DAILY [facility] Last Admin: 03/01/18 09:29 Dose: 220 mg - Labs Labs: 03/01/18 06:00 03/01/18 06:00 PT 11.9 SECONDS (9.4-12.5) 02/24/18 21:06 INR 1.04 (0.93-1.08) 02/24/18 21:06 APTT 26.0 Seconds (25.1-36.5) 02/24/18 21:06 - Constitutional Appears: No Acute Distress - Head Exam Head Exam: ATRAUMATIC, NORMAL INSPECTION, NORMOCEPHALIC - Eye Exam Eye Exam: EOMI, PERRL - ENT Exam Additional comments: Poor dentation - Respiratory Exam Respiratory Exam: Clear to Ausculation Bilateral, NORMAL BREATHING PATTERN. absent: Rhonchi, Wheezes - Cardiovascular Exam Cardiovascular Exam: REGULAR RHYTHM, +S1, +S2 - GI/Abdominal Exam GI & Abdominal Exam: Soft, Normal Bowel Sounds. absent: Tenderness - Extremities Exam Extremities Exam: Normal Capillary Refill. absent: Pedal Edema, Tenderness - Neurological Exam Neurological Exam: Alert, Awake, Oriented x3 - Psychiatric Exam Psychiatric exam: Agitated - Skin Skin Exam: Dry, Warm Assessment and Plan - Assessment and Plan (Free Text) Assessment: 82 year old female with past medical history of severe COPD, HTN, pulmonary HTN , CHF, dyslipidemia, recurrent UTI who is admitted for fecal discharge from vaginal canal. Patient underwent barium enema showing no sign of rectovaginal fistula. Pelvic US showing right ovarian cyst and fluid distending in endometrial vacity may be due to cervical stenosis or cervical neoplasm. General surgery, ID, ASSESSMENT CONSULTANT, pulm on consult. Plan: UTI: - ID consulted - Urine culture positive for Gram positive cocci, await final read - Rocephin COPD: - Severe COPD - Continue home medications, revatio, steroids, pulmicort - Duonebs - Maintain SaO2 >92% Stool with in vaginal canal - Barium Enema: No evidence of rectovaginal fistula - Stool occult negative - Abd/Pelvis CT: Endometrium distended, left sided ventral hernia, 2 cm density in pelvis posteriorly abutting small bowel loops, large hiatal hernia, colinc diverticula, interval grade 1 compression fracture of L1, vertebroplasty with residual compression deformtiy of T12 - Pelvic US: right ovarian cyst and fluid distending in endometrial vacity may be due to cervical stenosis or cervical neoplasm - General surgery consulted, recs as follows - Await final recommendations - Needs endometrial aspiration - VERONA/FULL STACK SOFTWARE DEVELOPER consulted and following - endometrial sampling with Pipelle or D and C when medically prepared for surgery - Pulm consulted and cleared for surgery as high risk - ID consulted - Trevon Potter - Monitor clinically - Pulmonology - very high risk for postoperative pulmonary complications, severe COPD, CAD s/p stent, clear for surgery - Follow up GS and ASSESSMENT CONSULTANT recs/plan ?dementia - Neuro consulted - Dementia - Continue Aricept 10mg - Continue rehab - Psych consult, f/u recs Hx of dyslipidemia - Continue home Lipitor GI/DVT ppx: - Protonix - Heparin - At this time patient is refusing to go for further procedures - Conversations with family occurring regarding medical management and further care plan ongoing Case and plan discussed with attending <Blaine Melo - Last Filed: 03/05/18 11:33> Objective - Vital Signs/Intake and Output Vital Signs (last 24 hours): Temp Pulse Resp BP Pulse Ox 98 F 107 H 18 103/62 99 03/03/18 18:00 03/03/18 18:00 03/03/18 18:00 03/03/18 18:00 03/03/18 18:00 - Labs Labs: 03/03/18 06:00 03/03/18 06:00 PT 11.9 SECONDS (9.4-12.5) 02/24/18 21:06 INR 1.04 (0.93-1.08) 02/24/18 21:06 APTT 26.0 Seconds (25.1-36.5) 02/24/18 21:06 Attending/Attestation - Attestation I have personally seen and examined this patient.: Yes I have fully participated in the care of the patient.: Yes I have reviewed all pertinent clinical information, including history, physical exam and plan: Yes Notes (Text): 03/05/18 11:31 Medical record note made by the resident after discussion with my direction and input after the patient was personally seen and examined by me. I have reviewed the chart and agree that the record accurately reflects by personal performance of the history, physical exam, data review, and medical decision-making, in the course for the patient. I have also personally directed the plan of care. 82 yrs female with history of CAD ,SP Cardiac stents ,COPD, pulmonary HTN, chronic hypoxic Respiratory failure on home oxygen, , HTN, Hyperlipidemia and osteoporosis is admitted with Possible colo-vaginal fistula. Patient was evaluated by Surgery and had Barium enema for further evaluation. Barium enema is negative for any fistula, case was discussed with surgery , at this plan is to advance her diet and monitorPatient was evaluated by OBGYN , Pelvic USG and D/C was recommended, which patient is refusing at this time.Pelvic USG showed enlarged fluid filled uterus, concern for malignancy, plan for endometrial biopsy, Patient also has UTI, on IV rocephin, will follow up cultures. Prognosis is guarded.,
--- NOTE | 2018-03-01 15:27 | CP.PCM.PN ---
Subjective - Date & Time of Evaluation Date of Evaluation: 03/01/18 Time of Evaluation: 09:55 - Subjective Subjective: No fevers, no abdominal pain, no diarrhea, no nausea. Objective - Vital Signs/Intake and Output Vital Signs (last 24 hours): Temp Pulse Resp BP Pulse Ox 97.6 F 99 H 20 124/72 99 02/28/18 18:00 02/28/18 18:00 02/28/18 18:00 02/28/18 18:00 02/28/18 18:00 Intake and Output: 03/01/18 03/01/18 06:59 18:59 Intake Total 360 120 Output Total 100 Balance 360 20 - Medications Medications: Current Medications Acetaminophen (Tylenol 325mg Tab) 650 mg PO Q4H PRN PRN Reason: Pain, moderate (4-7) Acetaminophen (Tylenol 325mg Tab) 650 mg PO Q6 PRN PRN Reason: TEMP>=99.5F Acetaminophen (Tylenol 650 Mg Supp) 650 mg RC Q6H PRN PRN Reason: TEMP>=99.5F Al Hydrox/Mg Hydrox/Simethicone (Maalox Plus 30 Ml) 30 ml PO Q4 PRN PRN Reason: Indigestion / Heartburn Last Admin: 02/26/18 20:26 Dose: 30 ml Albuterol/Ipratropium (Duoneb 3 Mg/0.5 Mg (3 Ml) Ud) 3 ml IH [id number] [facility] Last Admin: 03/01/18 01:56 Dose: Not Given Alprazolam (Xanax) 0.5 mg PO BID PRN; Protocol PRN Reason: Anxiety Stop: 03/04/18 10:01 Last Admin: 02/28/18 11:30 Dose: 0.5 mg Ascorbic Acid (Vitamin C 500 Mg Tab) 500 mg PO DAILY [facility] Last Admin: 02/27/18 11:27 Dose: 500 mg Atorvastatin Calcium (Lipitor) 10 mg PO DAILY [facility] Last Admin: 02/28/18 11:59 Dose: 10 mg Betamethasone/Clotrimazole (Lotrisone) 0 gm TOP BID [facility] Last Admin: 02/28/18 18:44 Dose: 1 applic Budesonide (Pulmicort Respules) 0.5 mg IH [id number] [facility] Last Admin: 02/28/18 20:33 Dose: 0.5 mg Diltiazem HCl (Cardizem) 30 mg PO Q8 [facility] Last Admin: 02/28/18 21:46 Dose: Not Given Docusate Sodium (Colace) 100 mg PO TID [facility] Last Admin: 02/28/18 18:42 Dose: Not Given Donepezil HCl (Aricept) 10 mg PO HS [facility] Last Admin: 02/28/18 21:46 Dose: Not Given Heparin Sodium (Porcine) (Heparin) 5,000 units SC Q12 [facility] PRN Reason: Protocol Last Admin: 02/28/18 21:47 Dose: 5,000 units Lactated Ringer's (Lactated Ringer's) 1,000 mls @ 60 mls/hr IV .[id number] [facility] Last Admin: 02/27/18 20:00 Dose: 60 mls/hr Insulin Human Regular (Humulin R High) 0 units SC ACHS [facility] PRN Reason: Protocol Last Admin: 02/28/18 21:47 Dose: Not Given Lactobacillus Acidophilus (Bacid Acidophilus) 1 cap PO BID [facility] [place] Last Admin: 02/28/18 18:53 Dose: 1 cap Ondansetron HCl (Zofran Inj) 4 mg IVP Q4H PRN PRN Reason: Nausea/Vomiting Pantoprazole Sodium (Protonix Ec Tab) 40 mg PO 0600 [facility] Last Admin: 03/01/18 05:15 Dose: 40 mg Polyethylene Glycol (Miralax) 17 gm PO BID [facility] [place] Last Admin: 02/28/18 18:46 Dose: Not Given Prednisone (Prednisone Tab) 2.5 mg PO DAILY [facility] Last Admin: 02/28/18 11:30 Dose: 2.5 mg Sildenafil Citrate (Revatio) 20 mg PO BID [facility] Last Admin: 02/28/18 18:53 Dose: 20 mg Silver Sulfadiazine (Silvadene 1% 25 Gm) 1 gm TP DAILY PRN PRN Reason: Rash Tramadol HCl (Ultram) 50 mg PO TID PRN PRN Reason: pain Last Admin: 02/28/18 12:01 Dose: 50 mg Zinc Sulfate (Zinc Sulfate 220 Mg Cap) 220 mg PO DAILY [facility] Last Admin: 02/28/18 11:30 Dose: 220 mg - Labs Labs: 03/01/18 06:00 03/01/18 06:00 PT 11.9 SECONDS (9.4-12.5) 06/08/18 21:06 INR 1.04 (0.93-1.08) 02/24/18 21:06 APTT 26.0 Seconds (25.1-36.5) 02/24/18 21:06 - Constitutional Appears: Chronically Ill - Head Exam Head Exam: NORMAL INSPECTION - Respiratory Exam Respiratory Exam: Decreased Breath Sounds - Cardiovascular Exam Cardiovascular Exam: +S1, +S2 - GI/Abdominal Exam GI & Abdominal Exam: Soft. absent: Tenderness Assessment and Plan - Assessment and Plan (Free Text) Plan: Assessment no evidence of entero-vaginal fistula but need to R/O endometrial abnormality R/O UTI with gram positive cocci S/P systemic inflammatory response syndrome, S/P severe sepsis with hypoxic respiratory failure S/P VDRF, S/P HCAP, new onset, right lower lobe on top of acute bronchitis chronic CHF end-stage COPD pulmonary HTN CAD dyslipidemia Plan started Ampicillin pending identification and sensitivities of the gram positive cocci in the urine Barium enema does not show fistula follow up Waste Picker follow up regarding Endometrial thickening as seen on the CT A/P will continue to monitor clinically
--- NOTE | 2018-03-01 16:00 | PN ---
DATE: 03/01/2018 CARDIOLOGY FOLLOWUP SUBJECTIVE: The patient is without shortness of breath. She is depressed about her overall condition. PHYSICAL EXAMINATION VITAL SIGNS: Stable. NECK: Negative JVD. LUNGS: Without rales. HEART: Reveals S1 and S2. EXTREMITIES: Without edema. LABORATORY DATA: Labs were reviewed. IMPRESSION: 1. Severe chronic obstructive pulmonary disease. 2. Stable angina. 3. Coronary artery disease. 4. The patient is in preparation for an endometrial biopsy. The patient's cardiac status is at its best at this time. Harrison Echavarria MD
[2018-03-01] MEDS: Lactated Ringer's 1,000 ML IV SCH (21:15)
[2018-03-02] MEDS: Albuterol-Ipratrop 3 mg / 0.5 (3 ml) UD IH SCH ×4 (01:43→20:09)
[2018-03-02] MEDS: Pantoprazole 40 mg EC Tab PO SCH (05:37)
[2018-03-02 06:45] LABS: BASO # 0.02 K/mm3 (0.0-2.0); BASO % 0.3 % (0.0-3.0); EOS # 0.3 (0.0-0.7); EOS % 5.3 % (1.5-5.0); GRAN # 4.22 (1.4-6.5); GRAN % 70.1 % (50.0-68.0); HEMOGLOBIN 10.2 g/dL (12.0-16.0); LYMPH % 15.8 % (22.0-35.0); MEAN CELL VOLUME 93.1 fl (80.0-105.0); MEAN CORPUSCULAR HEMOGLOBIN 30.6 pg (25.0-35.0); MEAN CORPUSCULAR HGB CONC 32.9 g/dl (31.0-37.0); MONO # 0.5 (0.1-0.6); MONO % 8.5 % (1.0-6.0); RBC 3.33 10^6/uL (3.5-6.1); RED CELL DISTRIBUTION WIDTH 14.9 % (11.5-14.5)
[2018-03-02 07:35] LABS: ALB/GLOB RATIO 1.2 (1.1-1.8); ALBUMIN 2.7 g/dL (3.0-4.8); ALT/SGPT 62 U/L (7-56); AST/SGOT 19 U/L (14-36); BLOOD UREA NITROGEN 5 mg/dL (7-21); GFR AFRICAN-AMERICAN > 60; GFR NON-AFRICAN AMERICAN > 60
--- NOTE | 2018-03-02 07:49 | CP.PCM.PN ---
Subjective - Date & Time of Evaluation Date of Evaluation: 03/02/18 Time of Evaluation: 06:44 - Subjective Subjective: Ferny Bullard PGY1 Surgical Progress Note for Dr. Ferrer Patient was seen and examined at bedside. patient had no complaints and no overnight events. she is pending possible endometrial catheterization. denies vaginal discharge, fevers/chills, n/v Objective - Vital Signs/Intake and Output Vital Signs (last 24 hours): Temp Pulse Resp BP Pulse Ox 98.4 F 89 20 119/64 95 03/02/18 06:00 03/02/18 06:00 03/02/18 06:00 03/02/18 06:00 03/02/18 06:00 Intake and Output: 03/02/18 03/02/18 06:59 18:59 Intake Total 300 Balance 300 - Medications Medications: Current Medications Acetaminophen (Tylenol 325mg Tab) 650 mg PO Q4H PRN PRN Reason: Pain, moderate (4-7) Acetaminophen (Tylenol 325mg Tab) 650 mg PO Q6 PRN PRN Reason: TEMP>=99.5F Acetaminophen (Tylenol 650 Mg Supp) 650 mg RC Q6H PRN PRN Reason: TEMP>=99.5F Al Hydrox/Mg Hydrox/Simethicone (Maalox Plus 30 Ml) 30 ml PO Q4 PRN PRN Reason: Indigestion / Heartburn Last Admin: 02/26/18 20:26 Dose: 30 ml Albuterol/Ipratropium (Duoneb 3 Mg/0.5 Mg (3 Ml) Ud) 3 ml IH [id number] [facility] Last Admin: 03/02/18 01:43 Dose: Not Given Alprazolam (Xanax) 0.5 mg PO BID PRN; Protocol PRN Reason: Anxiety Stop: 03/04/18 10:01 Last Admin: 02/28/18 11:30 Dose: 0.5 mg Ampicillin (Ampicillin) 500 mg PO BID [facility] PRN Reason: Protocol Ascorbic Acid (Vitamin C 500 Mg Tab) 500 mg PO DAILY [facility] Last Admin: 03/01/18 09:30 Dose: 500 mg Atorvastatin Calcium (Lipitor) 10 mg PO DAILY [facility] Last Admin: 03/01/18 09:29 Dose: 10 mg Betamethasone/Clotrimazole (Lotrisone) 0 gm TOP BID [facility] Last Admin: 03/01/18 17:43 Dose: Not Given Budesonide (Pulmicort Respules) 0.5 mg IH [id number] [facility] Last Admin: 03/01/18 20:17 Dose: 0.5 mg Diltiazem HCl (Cardizem) 30 mg PO Q8 [facility] Last Admin: 03/02/18 05:39 Dose: Not Given Docusate Sodium (Colace) 100 mg PO TID [facility] Last Admin: 03/01/18 18:49 Dose: Not Given Donepezil HCl (Aricept) 10 mg PO HS [facility] Last Admin: 03/01/18 21:18 Dose: Not Given Heparin Sodium (Porcine) (Heparin) 5,000 units SC Q12 [facility] PRN Reason: Protocol Last Admin: 03/01/18 21:22 Dose: 5,000 units Lactated Ringer's (Lactated Ringer's) 1,000 mls @ 60 mls/hr IV .[id number] [facility] Last Admin: 03/01/18 21:15 Dose: 60 mls/hr Insulin Human Regular (Humulin R High) 0 units SC ACHS [facility] PRN Reason: Protocol Last Admin: 03/01/18 21:25 Dose: Not Given Lactobacillus Acidophilus (Bacid Acidophilus) 1 cap PO BID [facility] Last Admin: 03/01/18 18:49 Dose: 1 cap Ondansetron HCl (Zofran Inj) 4 mg IVP Q4H PRN PRN Reason: Nausea/Vomiting Pantoprazole Sodium (Protonix Ec Tab) 40 mg PO 0600 [facility] Last Admin: 03/02/18 05:37 Dose: 40 mg Polyethylene Glycol (Miralax) 17 gm PO BID [facility] Last Admin: 03/01/18 18:49 Dose: 17 gm Prednisone (Prednisone Tab) 2.5 mg PO DAILY [facility] Last Admin: 03/01/18 09:29 Dose: 2.5 mg Sildenafil Citrate (Revatio) 20 mg PO BID [facility] Last Admin: 03/01/18 18:49 Dose: 20 mg Silver Sulfadiazine (Silvadene 1% 25 Gm) 1 gm TP DAILY PRN PRN Reason: Rash Tramadol HCl (Ultram) 50 mg PO TID PRN PRN Reason: pain Last Admin: 03/01/18 12:23 Dose: 50 mg Zinc Sulfate (Zinc Sulfate 220 Mg Cap) 220 mg PO DAILY [facility] Last Admin: 03/01/18 09:29 Dose: 220 mg - Labs Labs: 03/02/18 06:25 03/02/18 06:25 PT 11.9 SECONDS (9.4-12.5) 02/24/18 21:06 INR 1.04 (0.93-1.08) 02/24/18 21:06 APTT 26.0 Seconds (25.1-36.5) 02/24/18 21:06 - Additional Findings Additional findings: - Constitutional Appears: Well, Non-toxic, No Acute Distress - Head Exam Head Exam: NORMAL INSPECTION - Eye Exam Eye Exam: Normal appearance - ENT Exam ENT Exam: Mucous Membranes Moist - Neck Exam Neck Exam: Normal Inspection - Respiratory Exam Respiratory Exam: NORMAL BREATHING PATTERN - Cardiovascular Exam Cardiovascular Exam: RRR - GI/Abdominal Exam GI & Abdominal Exam: Soft, Normal Bowel Sounds. absent: Distended, Tenderness - Extremities Exam Extremities Exam: Full ROM - Back Exam Back Exam: NORMAL INSPECTION - Neurological Exam Neurological Exam: Awake - Psychiatric Exam Psychiatric exam: Normal Mood - Skin Skin Exam: Normal Color Assessment and Plan - Assessment and Plan (Free Text) Assessment: 82 yo female with a PMH COPD, Pulmomonary HTN, CAD with stents who presents with vaginal discharge possibly with uterus/cervical etiology, and unlikely due to rectovaginal fistula Plan vaginal discharge likely 2/2 uterus pathology vs entero-/colonic-vaginal fistula - UTI is being treated w/ ampicillin - urine cx initial positive for G+ cocci; repeat catheterized cx is negative - it was discussed with the patient that she requires an endometrial sample to be tested for cytology and cultured; will required endometial catheter - pelvic U/S showed fluid distention in endometrial cavity due to cervical stenosis vs neoplasm - CT w/ contrast showed two ventral hernias containing loops of small bowel w/o obstruction, contrast in colon and fluid in endometrial canal - barium enema showed no evidence of rectovaginal fistula - Forest Fire Prevention Specialist, Dr. Anand recommending endometrial sampling - Pulm cleared patient for surgery but patient is high risk for postop pulm complications - Cardio cleared patient for surgery but patient is at increased risk due to cardiopulmonary status, despite being optimal Case discussed and reviewed with attending Dr. Ferrer
[2018-03-02] MEDS: Budesonide 0.5 mg/2 ml Inhal Susp UD IH SCH ×2 (08:18→20:10)
[2018-03-02] MEDS: Insulin Reg-HIGH-Coverage SC SCH ×4 (08:18→21:55)
--- NOTE | 2018-03-02 08:19 | PN ---
DATE: 03/02/2018 PULMONARY NOTE SUBJECTIVE The patient appears comfortable this morning. She is not short of breath at rest. PHYSICAL EXAMINATION: VITAL SIGNS: Last temperature recorded is 98.1, pulse this morning is approximately 88, respiratory rate is 18, blood pressure 136/75. Oxygen saturation on nasal cannula is 98%. HEENT: Normocephalic, atraumatic. No JVD. CARDIOVASCULAR: Systolic ejection murmur at the lower left sternal border. No S3 gallop. LUNGS: Decreased breath sounds at the bases. No rhonchi or wheezing this morning. EXTREMITIES: Positive for mild edema. No cyanosis or clubbing. Calves are nontender to palpation. GASTROINTESTINAL: Abdomen is soft, nontender, nondistended. Bowel sounds are positive. SKIN: No acute rash. NEUROLOGIC: Limited at the present time. IMPRESSION 1. Rule out colovaginal fistula. 2. End-stage chronic obstructive pulmonary disease. 3. Pulmonary hypertension. 4. Coronary artery disease. 5. Anemia. PLAN The patient appears comfortable this morning. She is not short of breath at rest. She does state to feeling better overall. I did discuss the case with the night nurse at length. The night nurse stated that the patient had a very good night. On physical exam, there is certainly no significant bronchospasm noted. In addition, the oxygen saturation on nasal cannula is 98%. I will continue the current nebulizer treatments and low-dose oral steroids for now. I will also continue with the Revatio - for her pulmonary hypertension. Inputs by Infectious Disease, Cardiology, and Surgery are noted. The patient is for possible endometrial biopsy in the near future. The clinical status of the patient is certainly improved - compared to her initial hospital status. However, unfortunately, her overall/future status/prognosis does remain poor. I will discuss the above with the attending physician. Evgeny Briggs MD [facility]
[2018-03-02] MEDS: Clotrimazole/Betamethasone Cream(15 gm) TOP SCH ×2 (09:33→17:13)
[2018-03-02] MEDS: Lactobacillus Acidophilus 500 MU Cap PO SCH ×2 (09:33→17:12)
[2018-03-02] MEDS: Sildenafil 20 MG TAB PO SCH ×2 (09:33→17:12)
[2018-03-02] MEDS: POLYETHYLENE GLYCOL 3350 17 GM/Dose PACKET PO SCH ×3 (09:35→17:12)
--- NOTE | 2018-03-02 13:15 | CP.PCM.PN ---
Subjective - Date & Time of Evaluation Date of Evaluation: 03/02/18 Time of Evaluation: 13:12 - Subjective Subjective: Patient seen and evaluated this AM. Patient complains of mid epigastric tenderness. Patient denies shortness of breath, chest pain, fecal matter discharge from vaginal canal, fever, nausea, vomiting. Objective - Vital Signs/Intake and Output Vital Signs (last 24 hours): Temp Pulse Resp BP Pulse Ox 98.4 F 89 20 119/64 95 03/02/18 06:00 03/02/18 06:00 03/02/18 06:00 03/02/18 06:00 03/02/18 06:00 Intake and Output: 03/02/18 03/02/18 06:59 18:59 Intake Total 300 Balance 300 - Medications Medications: Current Medications Acetaminophen (Tylenol 325mg Tab) 650 mg PO Q4H PRN PRN Reason: Pain, moderate (4-7) Last Admin: 03/02/18 11:40 Dose: 650 mg Acetaminophen (Tylenol 325mg Tab) 650 mg PO Q6 PRN PRN Reason: TEMP>=99.5F Acetaminophen (Tylenol 650 Mg Supp) 650 mg RC Q6H PRN PRN Reason: TEMP>=99.5F Al Hydrox/Mg Hydrox/Simethicone (Maalox Plus 30 Ml) 30 ml PO Q4 PRN PRN Reason: Indigestion / Heartburn Last Admin: 02/26/18 20:26 Dose: 30 ml Albuterol/Ipratropium (Duoneb 3 Mg/0.5 Mg (3 Ml) Ud) 3 ml IH [id number] [facility] Last Admin: 03/02/18 08:18 Dose: 3 ml Alprazolam (Xanax) 0.5 mg PO BID PRN; Protocol PRN Reason: Anxiety Stop: 03/04/18 10:01 Last Admin: 02/28/18 11:30 Dose: 0.5 mg Ampicillin (Ampicillin) 500 mg PO BID [facility] PRN Reason: Protocol Last Admin: 03/02/18 09:33 Dose: 500 mg Ascorbic Acid (Vitamin C 500 Mg Tab) 500 mg PO DAILY [facility] Last Admin: 03/02/18 09:33 Dose: 500 mg Atorvastatin Calcium (Lipitor) 10 mg PO DAILY [facility] Last Admin: 03/02/18 09:34 Dose: 10 mg Betamethasone/Clotrimazole (Lotrisone) 0 gm TOP BID [facility] Last Admin: 03/02/18 09:33 Dose: 1 applic Budesonide (Pulmicort Respules) 0.5 mg IH [id number] [facility] Last Admin: 03/02/18 08:18 Dose: 0.5 mg Diltiazem HCl (Cardizem) 30 mg PO Q8 [facility] Last Admin: 03/02/18 05:39 Dose: Not Given Docusate Sodium (Colace) 100 mg PO TID [facility] Last Admin: 03/02/18 09:34 Dose: 100 mg Donepezil HCl (Aricept) 10 mg PO HS [facility] Last Admin: 03/01/18 21:18 Dose: Not Given Heparin Sodium (Porcine) (Heparin) 5,000 units SC Q12 [facility] PRN Reason: Protocol Last Admin: 03/02/18 09:32 Dose: 5,000 units Home Med (Home Med) 1 unit PO DAILY [facility] Lactated Ringer's (Lactated Ringer's) 1,000 mls @ 60 mls/hr IV .[id number] [facility] Last Admin: 03/01/18 21:15 Dose: 60 mls/hr Insulin Human Regular (Humulin R High) 0 units SC ACHS [facility] PRN Reason: Protocol Last Admin: 03/02/18 11:57 Dose: Not Given Lactobacillus Acidophilus (Bacid Acidophilus) 1 cap PO BID [facility] Last Admin: 03/02/18 09:33 Dose: 1 cap Ondansetron HCl (Zofran Inj) 4 mg IVP Q4H PRN PRN Reason: Nausea/Vomiting Pantoprazole Sodium (Protonix Ec Tab) 40 mg PO 0600 [facility] Last Admin: 03/02/18 05:37 Dose: 40 mg Polyethylene Glycol (Miralax) 17 gm PO BID [facility] Last Admin: 03/02/18 09:40 Dose: Not Given Prednisone (Prednisone Tab) 2.5 mg PO DAILY [facility] Last Admin: 03/02/18 09:33 Dose: 2.5 mg Sildenafil Citrate (Revatio) 20 mg PO BID [facility] Last Admin: 03/02/18 09:33 Dose: 20 mg Silver Sulfadiazine (Silvadene 1% 25 Gm) 1 gm TP DAILY PRN PRN Reason: Rash Sucralfate (Carafate Tab) 1 gm PO 0600,1600 [facility] Tramadol HCl (Ultram) 50 mg PO TID PRN PRN Reason: pain Last Admin: 03/02/18 09:34 Dose: 50 mg Zinc Sulfate (Zinc Sulfate 220 Mg Cap) 220 mg PO DAILY [facility] Last Admin: 03/02/18 09:33 Dose: 220 mg - Labs Labs: 03/02/18 06:25 03/02/18 06:25 PT 11.9 SECONDS (9.4-12.5) 02/24/18 21:06 INR 1.04 (0.93-1.08) 02/24/18 21:06 APTT 26.0 Seconds (25.1-36.5) 02/24/18 21:06 - Constitutional Appears: No Acute Distress - Head Exam Head Exam: ATRAUMATIC, NORMAL INSPECTION, NORMOCEPHALIC - Eye Exam Eye Exam: EOMI, PERRL - ENT Exam ENT Exam: Mucous Membranes Moist Additional comments: Poor dentation - Respiratory Exam Respiratory Exam: Clear to Ausculation Bilateral, NORMAL BREATHING PATTERN - Cardiovascular Exam Cardiovascular Exam: REGULAR RHYTHM, +S1, +S2 - GI/Abdominal Exam GI & Abdominal Exam: Soft, Tenderness (mid-epigastric ), Normal Bowel Sounds - Extremities Exam Extremities Exam: absent: Pedal Edema - Neurological Exam Neurological Exam: Alert, Awake, CN II-XII Intact, Oriented x3 - Psychiatric Exam Psychiatric exam: Normal Affect, Normal Mood - Skin Skin Exam: Dry, Warm Assessment and Plan - Assessment and Plan (Free Text) Assessment: 82 year old female with past medical history of severe COPD, HTN, pulmonary HTN , CHF, dyslipidemia, recurrent UTI who is admitted for fecal discharge from vaginal canal. Patient underwent barium enema showing no sign of rectovaginal fistula. Pelvic US showing right ovarian cyst and fluid distending in endometrial cavity may be due to cervical stenosis or cervical neoplasm. General surgery, ID, SHOPPER'S AIDE, pulm on consult. Plan: UTI: - ID consulted - Urine culture positive for Gram positive cocci, await final read - Urine culture straight cath is negative - Continue Rocephin COPD: - Severe COPD - Continue home medications, revatio, steroids, pulmicort - Duonebs - Maintain SaO2 >92% Stool with in vaginal canal - Barium Enema: No evidence of rectovaginal fistula - Stool occult negative - Abd/Pelvis CT: Endometrium distended, left sided ventral hernia, 2 cm density in pelvis posteriorly abutting small bowel loops, large hiatal hernia, colinc diverticula, interval grade 1 compression fracture of L1, vertebroplasty with residual compression deformtiy of T12 - Pelvic US: right ovarian cyst and fluid distending in endometrial vacity may be due to cervical stenosis or cervical neoplasm - General surgery consulted, recs as follows - Await final recommendations - Needs endometrial aspiration, will try and preform today or tomorrow - WIll investigate further for infectious vs malignancy - VERONA/OPERATIONS GENERAL AGENT consulted and following - endometrial sampling with Pipelle or D and C when medically prepared for surgery - Pulm consulted and cleared for surgery as high risk - ID consulted - Rocepaden Flagyl - Monitor clinically - Pulmonology - very high risk for postoperative pulmonary complications, severe COPD, CAD s/p stent, clear for surgery - Follow up GS and SHOPPER'S AIDE recs/plan ?dementia - Neuro consulted - Dementia - Continue Aricept 10mg - Continue rehab - Psych consult, f/u recs Hx of dyslipidemia - Continue home Lipitor GI/DVT ppx: - Protonix - Heparin -Patient will be going for endometrial/cervical fluid collection with GS either today or tomorrow for further investigation of fluid collection seen on Pelvic US. Patient family was at bedside for AM exam, aware and agreeable to plan. Case and plan discussed with attending
--- NOTE | 2018-03-02 16:13 | CP.PCM.PN ---
Subjective - Date & Time of Evaluation Date of Evaluation: 03/02/18 Time of Evaluation: 09:45 - Subjective Subjective: No fevers, no dysuria, no nausea, no abdominal pain. Objective - Vital Signs/Intake and Output Vital Signs (last 24 hours): Temp Pulse Resp BP Pulse Ox 98.1 F 100 H 20 136/75 98 03/01/18 18:00 03/01/18 21:18 03/01/18 18:00 03/01/18 21:18 03/01/18 18:00 Intake and Output: 03/02/18 03/02/18 06:59 18:59 Intake Total 300 Balance 300 - Medications Medications: Current Medications Acetaminophen (Tylenol 325mg Tab) 650 mg PO Q4H PRN PRN Reason: Pain, moderate (4-7) Acetaminophen (Tylenol 325mg Tab) 650 mg PO Q6 PRN PRN Reason: TEMP>=99.5F Acetaminophen (Tylenol 650 Mg Supp) 650 mg RC Q6H PRN PRN Reason: TEMP>=99.5F Al Hydrox/Mg Hydrox/Simethicone (Maalox Plus 30 Ml) 30 ml PO Q4 PRN PRN Reason: Indigestion / Heartburn Last Admin: 02/26/18 20:26 Dose: 30 ml Albuterol/Ipratropium (Duoneb 3 Mg/0.5 Mg (3 Ml) Ud) 3 ml IH [id number] [facility] Last Admin: 03/02/18 01:43 Dose: Not Given Alprazolam (Xanax) 0.5 mg PO BID PRN; Protocol PRN Reason: Anxiety Stop: 03/04/18 10:01 Last Admin: 02/28/18 11:30 Dose: 0.5 mg Ampicillin (Ampicillin) 500 mg PO BID [facility] PRN Reason: Protocol Ascorbic Acid (Vitamin C 500 Mg Tab) 500 mg PO DAILY [facility] Last Admin: 03/01/18 09:30 Dose: 500 mg Atorvastatin Calcium (Lipitor) 10 mg PO DAILY [facility] Last Admin: 03/01/18 09:29 Dose: 10 mg Betamethasone/Clotrimazole (Lotrisone) 0 gm TOP BID [facility] Last Admin: 03/01/18 17:43 Dose: Not Given Budesonide (Pulmicort Respules) 0.5 mg IH [id number] [facility] Last Admin: 03/01/18 20:17 Dose: 0.5 mg Diltiazem HCl (Cardizem) 30 mg PO Q8 [facility] Last Admin: 03/02/18 05:39 Dose: Not Given Docusate Sodium (Colace) 100 mg PO TID [facility] Last Admin: 03/01/18 18:49 Dose: Not Given Donepezil HCl (Aricept) 10 mg PO HS [facility] Last Admin: 03/01/18 21:18 Dose: Not Given Heparin Sodium (Porcine) (Heparin) 5,000 units SC Q12 [facility] PRN Reason: Protocol Last Admin: 03/01/18 21:22 Dose: 5,000 units Lactated Ringer's (Lactated Ringer's) 1,000 mls @ 60 mls/hr IV .[id number] [facility] Last Admin: 03/01/18 21:15 Dose: 60 mls/hr Insulin Human Regular (Humulin R High) 0 units SC ACHS [facility] PRN Reason: Protocol Last Admin: 03/01/18 21:25 Dose: Not Given Lactobacillus Acidophilus (Bacid Acidophilus) 1 cap PO BID [facility] Last Admin: 03/01/18 18:49 Dose: 1 cap Ondansetron HCl (Zofran Inj) 4 mg IVP Q4H PRN PRN Reason: Nausea/Vomiting Pantoprazole Sodium (Protonix Ec Tab) 40 mg PO 0600 [facility] Last Admin: 03/02/18 05:37 Dose: 40 mg Polyethylene Glycol (Miralax) 17 gm PO BID [facility] Last Admin: 03/01/18 18:49 Dose: 17 gm Prednisone (Prednisone Tab) 2.5 mg PO DAILY [facility] Last Admin: 03/01/18 09:29 Dose: 2.5 mg Sildenafil Citrate (Revatio) 20 mg PO BID [facility] Last Admin: 03/01/18 18:49 Dose: 20 mg Silver Sulfadiazine (Silvadene 1% 25 Gm) 1 gm TP DAILY PRN PRN Reason: Rash Tramadol HCl (Ultram) 50 mg PO TID PRN PRN Reason: pain Last Admin: 03/01/18 12:23 Dose: 50 mg Zinc Sulfate (Zinc Sulfate 220 Mg Cap) 220 mg PO DAILY [facility] Last Admin: 03/01/18 09:29 Dose: 220 mg - Labs Labs: 03/01/18 06:00 03/01/18 06:00 PT 11.9 SECONDS (9.4-12.5) 02/24/18 21:06 INR 1.04 (0.93-1.08) 02/24/18 21:06 APTT 26.0 Seconds (25.1-36.5) 02/24/18 21:06 - Constitutional Appears: Chronically Ill - Head Exam Head Exam: NORMAL INSPECTION - ENT Exam ENT Exam: Mucous Membranes Moist - Neck Exam Neck Exam: absent: Meningismus - Respiratory Exam Respiratory Exam: Decreased Breath Sounds - Cardiovascular Exam Cardiovascular Exam: +S1, +S2 - GI/Abdominal Exam GI & Abdominal Exam: Soft. absent: Tenderness Assessment and Plan - Assessment and Plan (Free Text) Plan: Assessment no evidence of entero-vaginal fistula but need to R/O endometrial abnormality R/O UTI with Enterococcus S/P systemic inflammatory response syndrome, S/P severe sepsis with hypoxic respiratory failure S/P VDRF, S/P HCAP, new onset, right lower lobe on top of acute bronchitis chronic CHF end-stage COPD pulmonary HTN CAD dyslipidemia Plan continue Ampicillin for 5-7 days Barium enema does not show fistula follow up Compensation And Hris Analyst follow up regarding Endometrial thickening as seen on the CT A/P will continue to monitor clinically discussed with patient and family
[2018-03-02] MEDS: Alum-Mag Hydrox-Simethicone Susp (30 mL) PO PRN (19:28)
[2018-03-03] MEDS: Albuterol-Ipratrop 3 mg / 0.5 (3 ml) UD IH SCH ×3 (01:00→14:11)
--- NOTE | 2018-03-03 02:08 | CON ---
DATE: 03/02/2018 HISTORY OF PRESENT ILLNESS: The patient is an 82-year-old white female with psychiatric history, who was admitted to the medical floor due to suspicion of a rectovaginal fistula. Psychiatry was consulted to evaluate for change in mental status. Psychiatry was consulted on 12/23/2017 for similar concerns as well as 01/07/2018. I had met with the patient on 12/23/2017 and has signed off as there were no acute psychiatric indications for initiation of medication. On 01/07/2018, the patient politely refused psychiatric consult indicates that she would rather focus on her medical issue. I reviewed recent notes and I met with the patient at bedside today. The patient remembers me from my visit with her in December and again she denies having any major complaints and she is alert and oriented to month, year, location, and circumstances. Psychiatrically as mentioned she feels that she is doing fairly well and denies any excess anxiety or depression and denies hallucinations. The patient does not present with any acute delusions and her responses are coherent and relevant . She has not appeared to be responding to internal stimuli. The patient denies any issues with her current medications and is generally pleasant when I speak with her at bedside. Her son, Syed, is also at bedside and he also denies having any concerns, specifically psychiatric concerns and feels that his mother is generally lucid and he does not feel that she is danger to herself or others, overtly disorganized. Her insight and judgment are considered to be fair at this time. Vital signs and labs are reviewed by this provider. RELEVANT PSYCHIATRIC MEDICATIONS: Include Xanax 0.5 mg b.i.d. p.r.n., the patient received just one dose on 10/31/2017 and she is also taking Aricept 10 mg at bedtime. PSYCHIATRIC HISTORY: The patient denies any formal psychiatric history. She denies any history of suicide attempts, outpatient psychiatric treatment, or psychiatric consultations. The patient was seen on 12/23/2017 by this provider, who signed off as there were no major psychiatric concerns at that time. This provider also saw the patient on 01/07/2018; however, the patient had declined a psychiatric evaluation at that time. SOCIAL HISTORY: The patient indicates that she was born and raised in [place]. She is . She has 9 children. She lives with her son Syed. 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 She is graduated high school. She denies any drug or alcohol history. IMPRESSION: Age-related decline in cognition as well as dementia. There could be a component of delirium; however, the patient is currently presenting without any evidence of overt disorientation and presents as a fairly reliable historian during my interview today, confirmed by her son Syed, who is at bedside. RECOMMENDATIONS: At this time, there is no acute indication for psychiatric intervention. She declines having any further psychiatric followup and denies having any major psychiatric symptoms or complaints. She does not meet criteria for admissions for any symptoms at this time, and Psychiatry will sign off. Please note that the patient's son Syed was at bedside, he also is in agreement with psychiatric signing off on this case. Please re-consult p.r.n. if there are any acute changes in patient's presentation and we will be happy to follow up again. Mukund Christensen MD
[2018-03-03 06:52] LABS: BASO # 0.02 K/mm3 (0.0-2.0); BASO % 0.3 % (0.0-3.0); EOS # 0.3 (0.0-0.7); EOS % 4.5 % (1.5-5.0); GRAN # 4.64 (1.4-6.5); GRAN % 72.5 % (50.0-68.0); LYMPH # 1.1 (1.2-3.4); LYMPH % 16.5 % (22.0-35.0); MEAN CELL VOLUME 93.5 fl (80.0-105.0); MEAN CORPUSCULAR HEMOGLOBIN 30.9 pg (25.0-35.0); MEAN PLATELET VOLUME 11.6 fl (7.0-11.0); MONO # 0.4 (0.1-0.6); MONO % 6.2 % (1.0-6.0); RBC 3.24 10^6/uL (3.5-6.1); RED CELL DISTRIBUTION WIDTH 14.8 % (11.5-14.5); WHITE BLOOD COUNT 6.4 10^3/ul (4.5-11.0)
--- NOTE | 2018-03-03 06:53 | CP.PCM.PCO ---
Physician Communication Note - Physician Communication Note Physician Communication Note: I Will do Exam (Sedation) Today for Endometrial Cytology+c/s
[2018-03-03 07:04] LABS: BLOOD UREA NITROGEN 6 mg/dL (7-21); GFR AFRICAN-AMERICAN > 60; GFR NON-AFRICAN AMERICAN > 60
[2018-03-03 07:05] LABS: ALB/GLOB RATIO 1.2 (1.1-1.8); ALBUMIN 2.7 g/dL (3.0-4.8); ALT/SGPT 46 U/L (7-56); AST/SGOT 21 U/L (14-36); CALCIUM 8.9 mg/dL (8.4-10.5)
[2018-03-03] MEDS: Budesonide 0.5 mg/2 ml Inhal Susp UD IH SCH (08:03)
[2018-03-03] MEDS: Insulin Reg-HIGH-Coverage SC SCH ×3 (08:27→17:09)
--- NOTE | 2018-03-03 09:05 | PN ---
DATE: 03/03/2018 PULMONARY NOTE SUBJECTIVE: The patient appears comfortable this morning. She is not short of breath at rest. PHYSICAL EXAMINATION VITAL SIGNS: (Last noted in the computer): Temperature is 98.4, pulse 89, respirations 18/20, blood pressure 119/64. Oxygen saturation on nasal cannula is 95%. HEENT: Normocephalic, atraumatic. No JVD. CARDIOVASCULAR: Systolic ejection murmur at the lower left sternal border. No S3 gallop. LUNGS: Decreased breath sounds at the bases. Very minimal rhonchi. No wheezing. EXTREMITIES: Positive for mild edema. No cyanosis, no clubbing. Calves are nontender to palpation. GI: Abdomen is soft, nontender and nondistended. Bowel sounds are positive. SKIN: No acute rash. NEUROLOGIC: Limited at the present time. IMPRESSION: 1. Rule out colovaginal fistula. 2. End-stage chronic obstructive pulmonary disease. 3. Pulmonary hypertension. 4. Coronary artery disease. 5. Anemia. PLAN: The patient appears comfortable this morning. She is not short of breath at rest. She does state to feeling better overall. I did discuss the case with the night nurse at length. The night nurse stated that the patient had a very good night. The night nurse also stated that the patient is for possible endometrial biopsy in the near future. On physical exam, there is no significant bronchospasm noted. In addition, there is no significant alveolar-arterial gradient. I will continue with the current nebulizer treatments and low-dose oral steroids for now. The patient also remains on Revatio - for her pulmonary hypertension. Inputs by Surgery and Infectious Disease are also noted. I will discuss the case with Dr. Ferrer this morning. The clinical status of the patient appears certainly improved - compared to her initial presentation. However, again, unfortunately, her future status/prognosis does remain very guarded at best/poor. I will discuss the above with the attending physician this morning. Evgeny Briggs MD JOSEPH
[2018-03-03] MEDS: Lactobacillus Acidophilus 500 MU Cap PO SCH ×2 (09:50→17:09)
[2018-03-03] MEDS: Sildenafil 20 MG TAB PO SCH ×2 (09:50→17:09)
[2018-03-03] MEDS: POLYETHYLENE GLYCOL 3350 17 GM/Dose PACKET PO SCH ×2 (09:51→17:08)
[2018-03-03] MEDS: Clotrimazole/Betamethasone Cream(15 gm) TOP SCH ×2 (09:51→17:08)
[2018-03-03] MEDS ORDERED: DEXILANT 60MG PO SCH ×2 (10:00)
--- NOTE | 2018-03-03 12:19 | CP.PCM.PN ---
Subjective - Date & Time of Evaluation Date of Evaluation: 03/03/18 Time of Evaluation: 10:50 - Subjective Subjective: Patient has occasional abdominal pain from her abdominal hernia, no fevers. Objective - Vital Signs/Intake and Output Vital Signs (last 24 hours): Temp Pulse Resp BP Pulse Ox 98.1 F 89 22 114/69 98 03/03/18 04:00 03/03/18 04:00 03/03/18 04:00 03/03/18 04:00 03/03/18 04:00 Intake and Output: 03/03/18 03/03/18 06:59 18:59 Intake Total 0 Output Total 150 Balance -150 - Medications Medications: Current Medications Acetaminophen (Tylenol 325mg Tab) 650 mg PO Q4H PRN PRN Reason: Pain, moderate (4-7) Last Admin: 03/02/18 11:40 Dose: 650 mg Acetaminophen (Tylenol 325mg Tab) 650 mg PO Q6 PRN PRN Reason: TEMP>=99.5F Acetaminophen (Tylenol 650 Mg Supp) 650 mg RC Q6H PRN PRN Reason: TEMP>=99.5F Al Hydrox/Mg Hydrox/Simethicone (Maalox Plus 30 Ml) 30 ml PO Q4 PRN PRN Reason: Indigestion / Heartburn Last Admin: 03/02/18 19:28 Dose: 30 ml Albuterol/Ipratropium (Duoneb 3 Mg/0.5 Mg (3 Ml) Ud) 3 ml IH [id number] [facility] Last Admin: 03/03/18 08:01 Dose: 3 ml Alprazolam (Xanax) 0.5 mg PO BID PRN; Protocol PRN Reason: Anxiety Stop: 03/04/18 10:01 Last Admin: 02/28/18 11:30 Dose: 0.5 mg Ampicillin (Ampicillin) 500 mg PO BID [facility] PRN Reason: Protocol Last Admin: 03/02/18 17:12 Dose: 500 mg Ascorbic Acid (Vitamin C 500 Mg Tab) 500 mg PO DAILY [facility] Last Admin: 03/02/18 09:33 Dose: 500 mg Atorvastatin Calcium (Lipitor) 10 mg PO DAILY [facility] Last Admin: 03/02/18 09:34 Dose: 10 mg Betamethasone/Clotrimazole (Lotrisone) 0 gm TOP BID [facility] Last Admin: 03/02/18 17:13 Dose: Not Given Budesonide (Pulmicort Respules) 0.5 mg IH [id number] [facility] Last Admin: 03/03/18 08:03 Dose: 0.5 mg Diltiazem HCl (Cardizem) 30 mg PO Q8 [facility] Last Admin: 03/03/18 05:42 Dose: Not Given Docusate Sodium (Colace) 100 mg PO TID [facility] Last Admin: 03/02/18 17:12 Dose: Not Given Donepezil HCl (Aricept) 10 mg PO HS [facility] Last Admin: 03/02/18 21:55 Dose: Not Given Heparin Sodium (Porcine) (Heparin) 5,000 units SC Q12 [facility] PRN Reason: Protocol Last Admin: 03/02/18 21:49 Dose: 5,000 units Home Med (Home Med) 1 unit PO DAILY [facility] Lactated Ringer's (Lactated Ringer's) 1,000 mls @ 60 mls/hr IV .[id number] [facility] Last Admin: 03/01/18 21:15 Dose: 60 mls/hr Insulin Human Regular (Humulin R High) 0 units SC ACHS [facility] PRN Reason: Protocol Last Admin: 03/03/18 08:27 Dose: Not Given Lactobacillus Acidophilus (Bacid Acidophilus) 1 cap PO BID [facility] Last Admin: 03/02/18 17:12 Dose: 1 cap Ondansetron HCl (Zofran Inj) 4 mg IVP Q4H PRN PRN Reason: Nausea/Vomiting Polyethylene Glycol (Miralax) 17 gm PO BID [facility] Last Admin: 03/02/18 17:12 Dose: 17 gm Prednisone (Prednisone Tab) 2.5 mg PO DAILY [facility] Last Admin: 03/02/18 09:33 Dose: 2.5 mg Sildenafil Citrate (Revatio) 20 mg PO BID [facility] Last Admin: 03/02/18 17:12 Dose: 20 mg Silver Sulfadiazine (Silvadene 1% 25 Gm) 1 gm TP DAILY PRN PRN Reason: Rash Sucralfate (Carafate Tab) 1 gm PO 0600,1600 [facility] Last Admin: 03/03/18 05:41 Dose: Not Given Tramadol HCl (Ultram) 50 mg PO TID PRN PRN Reason: pain Last Admin: 03/02/18 09:34 Dose: 50 mg Zinc Sulfate (Zinc Sulfate 220 Mg Cap) 220 mg PO DAILY [facility] Last Admin: 03/02/18 09:33 Dose: 220 mg - Labs Labs: 03/03/18 06:00 03/03/18 06:00 PT 11.9 SECONDS (9.4-12.5) 02/24/18 21:06 INR 1.04 (0.93-1.08) 02/24/18 21:06 APTT 26.0 Seconds (25.1-36.5) 02/24/18 21:06 - Constitutional Appears: Chronically Ill - Head Exam Head Exam: NORMAL INSPECTION - Respiratory Exam Respiratory Exam: Decreased Breath Sounds - Cardiovascular Exam Cardiovascular Exam: +S1, +S2 - GI/Abdominal Exam GI & Abdominal Exam: Soft. absent: Tenderness Assessment and Plan - Assessment and Plan (Free Text) Plan: Assessment no evidence of entero-vaginal fistula but need to R/O endometrial abnormality R/O UTI with Enterococcus gallinarum S/P systemic inflammatory response syndrome, S/P severe sepsis with hypoxic respiratory failure S/P VDRF, S/P HCAP, new onset, right lower lobe on top of acute bronchitis chronic CHF end-stage COPD pulmonary HTN CAD dyslipidemia Plan continue Ampicillin for 5-7 days Barium enema does not show fistula Dr. Ferrer to do endometrial biopsy and cultures and he may start Flagyl as well will continue to monitor clinically discussed with patient and family
--- NOTE | 2018-03-03 15:22 | PCM.SURG1 ---
Surgeon's Initial Post Op Note - Surgeon's Notes Surgeon: Nabil Granite Polisher: Theresa Type of Anesthesia: None Anesthesia Administered By: na Pre-Operative Diagnosis: Rec UTI/Possible Endometritis. 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 Stenotic Cervix. Mild Vaginitis Post-Operative Diagnosis: Pending C/S-Cytology Operation Performed: Endometrial Aspiration-C/S Specimen/Specimens Removed: Cytology. C/S Estimated Blood Loss: EBL {In ML}: 0 Blood Products Given: N/A Drains Used: No Drains Post-Op Condition: Fair Date of Surgery/Procedure: 03/03/18 Time of Surgery/Procedure: 11:30
--- NOTE | 2018-03-03 15:23 | CP.PCM.PCO ---
Physician Communication Note - Physician Communication Note Physician Communication Note: OK d/c on Ampicillin-Flagyl PO--F/U office
--- NOTE | 2018-03-03 16:00 | CP.PCM.DIS ---
Provider - Provider Date of Admission: 02/25/18 08:08 Attending physician: Blaine Melo MD Time Spent in preparation of Discharge (in minutes): 40 Hospital Course - Lab Results Lab Results: Micro Results 02/28/18 17:28 Other: Please Indicate Yeast Culture - Preliminary 02/28/18 11:35 Urine Urine Culture - Final Enterococcus Gallinarum 02/28/18 17:28 Urine,Catheterized Urine Culture - Final No Growth (<1,000 CFU/ML) Most Recent Lab Values WBC 6.4 10^3/ul (4.5-11.0) 03/03/18 06:00 RBC 3.24 10^6/uL (3.5-6.1) L 03/03/18 06:00 Hgb 10.0 g/dL (12.0-16.0) L 03/03/18 06:00 Hct 30.3 % (36.0-48.0) L 03/03/18 06:00 MCV 93.5 fl (80.0-105.0) 03/03/18 06:00 MCH 30.9 pg (25.0-35.0) 03/03/18 06:00 MCHC 33.0 g/dl (31.0-37.0) 03/03/18 06:00 RDW 14.8 % (11.5-14.5) H 03/03/18 06:00 Plt Count 196 10^3/uL (120.0-450.0) 03/03/18 06:00 MPV 11.6 fl (7.0-11.0) H 03/03/18 06:00 Gran % 72.5 % (50.0-68.0) H 03/03/18 06:00 Lymph % (Auto) 16.5 % (22.0-35.0) L 03/03/18 06:00 [place] % (Auto) 6.2 % (1.0-6.0) H 03/03/18 06:00 Eos % (Auto) 4.5 % (1.5-5.0) 03/03/18 06:00 Baso % (Auto) 0.3 % (0.0-3.0) 03/03/18 06:00 Gran # 4.64 (1.4-6.5) 03/03/18 06:00 Lymph # (Auto) 1.1 (1.2-3.4) L 03/03/18 06:00 [place] # (Auto) 0.4 (0.1-0.6) 03/03/18 06:00 Eos # (Auto) 0.3 (0.0-0.7) 03/03/18 06:00 Baso # (Auto) 0.02 K/mm3 (0.0-2.0) 03/03/18 06:00 PT 11.9 SECONDS (9.4-12.5) 02/24/18 21:06 INR 1.04 (0.93-1.08) 02/24/18 21:06 APTT 26.0 Seconds (25.1-36.5) 02/24/18 21:06 Sodium 138 mmol/L (132-148) 03/03/18 06:00 Potassium 3.9 mmol/L (3.6-5.0) 03/03/18 06:00 Chloride 101 mmol/L (98-107) 03/03/18 06:00 Carbon Dioxide 29 mmol/L (21-33) 03/03/18 06:00 Anion Gap 12 (10-20) 03/03/18 06:00 BUN 6 mg/dL (7-21) L 03/03/18 06:00 Creatinine 0.6 mg/dl (0.7-1.2) L 03/03/18 06:00 Est GFR ( Amer) > 60 03/03/18 06:00 Est GFR (Non-Af Amer) > 60 03/03/18 06:00 POC Glucose (mg/dL) 193 mg/dL (65-110) H 03/03/18 15:46 Random Glucose 86 mg/dL (70-110) 03/03/18 06:00 Calcium 8.9 mg/dL (8.4-10.5) 03/03/18 06:00 Magnesium 1.8 mg/dL (1.7-2.2) 02/27/18 05:00 Total Bilirubin 0.3 mg/dL (0.2-1.3) 03/03/18 06:00 Direct Bilirubin 0.1 mg/dL (0.0-0.4) 02/27/18 05:00 AST 21 U/L (14-36) 03/03/18 06:00 ALT 46 U/L (7-56) 03/03/18 06:00 Alkaline Phosphatase 61 U/L (38-126) 03/03/18 06:00 Total Protein 4.9 g/dL (5.8-8.3) L 03/03/18 06:00 Albumin 2.7 g/dL (3.0-4.8) L 03/03/18 06:00 Globulin 2.2 gm/dL 03/03/18 06:00 Albumin/Globulin Ratio 1.2 (1.1-1.8) 03/03/18 06:00 Triglycerides 67 mg/dL (35-160) 02/27/18 05:00 Cholesterol 96 mg/dL (130-200) L 02/27/18 05:00 LDL Cholesterol Direct 52 mg/dL (0-129) 02/27/18 05:00 HDL Cholesterol 31 mg/dL (29-60) 02/27/18 05:00 Lipase 60 U/L (23-300) 02/24/18 22:30 25-OH Vitamin D Total 29.5 NG/ML (30.0-100.0) L 02/27/18 05:00 Free T4 1.21 ng/dL (0.78-2.19) 02/27/18 05:00 Thyroxine (T4) 7.7 ug/dL (5.5-11.0) 02/27/18 05:00 Total T3 0.79 ng/mL (0.97-1.69) L 02/25/18 13:50 TSH 3rd Generation 3.29 mIU/mL (0.46-4.68) 02/27/18 05:00 Urine Color Yellow (YELLOW) 02/28/18 17:28 Urine Appearance Sl cloudy (CLEAR) 02/28/18 17:28 Urine pH 6.0 (4.7-8.0) 02/28/18 17:28 Ur Specific [place] 1.020 (1.005-1.035) 02/28/18 17:28 Urine Protein 30 mg/dL (<30 mg/dL) H 02/28/18 17:28 Urine Glucose (UA) Negative mg/dL (NEGATIVE) 02/28/18 17:28 Urine Ketones 15 mg/dL (NEGATIVE) H 02/28/18 17:28 Urine Blood Small (NEGATIVE) H 02/28/18 17:28 Urine Nitrate Positive (NEGATIVE) H 02/28/18 17:28 Urine Bilirubin Negative (NEGATIVE) 02/28/18 17:28 Urine Urobilinogen 0.2 E.U./dL (<1 E.U./dL) 02/28/18 17:28 Ur Leukocyte Esterase Large Livan/uL (NEGATIVE) H 02/28/18 17:28 Urine RBC 25 - 30 /hpf (0-2) 02/28/18 17:28 Urine WBC Tntc /hpf (0-6) 02/28/18 17:28 Ur Epithelial Cells 6 - 8 /hpf (0-5) 02/28/18 17:28 Amorphous Sediment Few 02/28/18 17:28 Urine Bacteria Large (NEG) 02/28/18 17:28 Urine Other Uyeast 02/28/18 11:35 Stool Occult Blood Negative (NEGATIVE) 02/26/18 19:02 Hepatitis A IgM Ab Negative (NEGATIVE) 02/26/18 10:00 Hep Bs Antigen Negative (NEGATIVE) 02/26/18 10:00 Hep B Core IgM Ab Negative (NEGATIVE) 02/26/18 10:00 Hepatitis C Antibody Negative (NEGATIVE) 02/26/18 10:00 - Hospital Course Hospital Course: Ms. Blackburn is an 82-year-old female with a past medical history of COPD, pulmonary hypertension, CAD status post PCI, dyslipidemia, osteoporosis, status post partial bowel resection, status post appendectomy, status post ovarian cyst excision excision, status post cholecystectomy, who was brought in to [facility] for stool-like discharge from the vagina. Urine culture was positive for VRE, however patient had no signs of infection and had no complaints of dysuria or fevers/chills. A catheterized urinary culture was also sent the same day, and was negative for any bacterial growth. Surgery team was consulted and performed tissue sample from the cervical canal/uterus which was sent for analysis. Preliminary results show few PMNs, rare epithelial cells and rare gram-positive cocci. ID was also consulted and recommended that the patient continue on antibiotics to finish a 7 day ampicillin course, and surgery recommended Flagyl. Patient continued to improve and family was all in agreement about discharge. Patient was discharged to [facility][1] via [facility]. Family was contacted by myself and results were explained and plan was discussed and agreed upon. Discharge Exam - Head Exam Head Exam: NORMAL INSPECTION - Eye Exam Eye Exam: Normal appearance Pupil Exam: NORMAL ACCOMODATION - ENT Exam ENT Exam: Mucous Membranes Moist, Normal Exam - Respiratory Exam Respiratory Exam: Clear to PA & Lateral, NORMAL BREATHING PATTERN. absent: Rales, Rhonchi, Wheezes Additional comments: on O2 NC - Cardiovascular Exam Cardiovascular Exam: RRR, +S1, +S2 - GI/Abdominal Exam GI & Abdominal Exam: Normal Bowel Sounds, Soft. absent: Distended, Tenderness - Extremities Exam Extremities exam: normal inspection - Back Exam Back exam: NORMAL INSPECTION - Neurological Exam Neurological exam: Alert - Psychiatric Exam Psychiatric exam: Normal Mood - Skin Skin Exam: Normal Color Discharge Plan - Discharge Medications Prescriptions: AMPicillin [Ampicillin] 500 mg PO BID #12 cap metroNIDAZOLE [Flagyl] 500 mg PO Q8 #30 tab - Follow Up Plan Condition: FAIR Disposition: REHAB FACILITY/REHAB UNIT Instructions: Preventing Falls in the Older Adult, Urinary Tract Infection, Adult (DC), Vaginal Discharge in Adults Additional Instructions: please take the Ampicillin and the Flagyl as prescribed We will notify you once the culture results are finalized if you experience any worsening of symptoms, or any more bloody/feculent discharge, please return to ER for evaluation please follow up with your PMD within 1 week of discharge from rehab please follow up with Dr. Ferrer within 2 weeks of discharge from rehab Referrals: Neeraj Valentine MD [Family Provider] - Lauro Ferrer MD [Staff Provider] -
[2018-03-03 18:28] VITALS: BP 103/62; PULSE 107; RESP 18; TEMP 98; O2SAT 99
--- NOTE | 2018-03-07 12:38 | CP.PCM.PCO ---
Physician Communication Note - Physician Communication Note Physician Communication Note: spoke with Fatuma Brennan regarding culure, please see out patient chart
== END 2018-03-03 20:26 | DRG 573 ==
LOC: ED 19:30 → ERH 02-25 00:38 → 3RNO 02-25 02:20 → OBSVTOIN 02-25 08:08
PROVIDERS: ADMIT Family Medicine; ATTEND Internal Medicine
PROC: 3E0F7GC Introduction of Other Therapeutic Substance into Respiratory Tract, Via Natural or Artificial Opening (ICD-10-PCS; 2018-02-25)
PROC: 0UDB7ZX Extraction of Endometrium, Via Natural or Artificial Opening, Diagnostic (ICD-10-PCS; principal; 2018-03-03)
DX: N88.2 Stricture and stenosis of cervix uteri (principal); N76.0 Acute vaginitis; J96.11 Chronic respiratory failure with hypoxia; J44.9 Chronic obstructive pulmonary disease, unspecified; F03.90 Unspecified dementia, unspecified severity, without behavioral disturbance, psychotic disturbance, mood disturbance, and anxiety; N39.0 Urinary tract infection, site not specified; I11.0 Hypertensive heart disease with heart failure; I50.9 Heart failure, unspecified; K90.0 Celiac disease; I27.20 Pulmonary hypertension, unspecified; D63.8 Anemia in other chronic diseases classified elsewhere; I25.118 Atherosclerotic heart disease of native coronary artery with other forms of angina pectoris; J20.9 Acute bronchitis, unspecified; Z99.81 Dependence on supplemental oxygen; M81.0 Age-related osteoporosis without current pathological fracture; E11.9 Type 2 diabetes mellitus without complications; F40.240 Claustrophobia; G89.29 Other chronic pain; N83.201 Unspecified ovarian cyst, right side; E78.5 Hyperlipidemia, unspecified; K21.9 Gastro-esophageal reflux disease without esophagitis; K43.9 Ventral hernia without obstruction or gangrene; K44.9 Diaphragmatic hernia without obstruction or gangrene; Z87.891 Personal history of nicotine dependence; Z95.5 Presence of coronary angioplasty implant and graft

== ENCOUNTER 2018-04-17 02:48 | Emergency (ER) | payer MEDICARE, MEDICAID ==
[2018-04-17 02:51] VITALS: BMI 21.9
[2018-04-17 03:01] VITALS: RESP 18; TEMP 98.1
--- NOTE | 2018-04-17 03:09 | ED PDOC ---
Arrival/HPI - General Chief Complaint: Trauma Time Seen by Provider: 04/17/18 02:51 Historian: Patient, Family, Mcfp - History of Present Illness Narrative History of Present Illness (Text): 04/17/18 03:06 Shahida Blackburn is an 83 year old female, whose past medical history includes CHF, COPD, diabetes, anemia, GERD, CAD, and anxiety, who presents to the Emergency department transferred from longterm status post fall at 18:00 yesterday for a right wrist fracture. Patient reports she was leaning over while sitting in her wheelchair when she lost her balance and fell on to her right arm. Patient had an X-ray performed at the longterm, which was positive for fracture of the right wrist. Patient complaining of pain to the area, worsened with movement. Patient denies any weakness/numbness/tingling in the extremity, other trauma/injury, or any other complaints. PMD: Dr. Prema Beth [employer] [place] Miller: Dr. Echavarria Pulmonology: Dr. Briggs Symptom Onset: Gradual Symptom Course: Unchanged Activities at Onset: Light Context: Home Past Medical History - Provider Review Nursing Documentation Reviewed: Yes - Past History Past History: No Previous - Infectious Disease Hx of Infectious Diseases: None - Tetanus Immunization Tetanus Immunization: Unknown - Reproductive Menopause: Yes - Cardiac Hx Cardiac Disorders: Yes Hx Congestive Heart Failure: Yes - Pulmonary Hx Respiratory Disorders: Yes Hx Chronic Obstructive Pulmonary Disease (COPD): Yes - Neurological Hx Neurological Disorder: Yes Hx Dizziness: Yes - HEENT Hx HEENT Disorder: Yes Hx Cataracts: Yes - Renal Hx Renal Disorder: Yes - Endocrine/Metabolic Hx Endocrine Disorders: Yes Hx Diabetes Mellitus Type 2: Yes - Hematological/Oncological Hx Blood Disorders: Yes Hx Anemia: Yes (blood transfusion) Hx Shingles: No - Integumentary Hx Dermatological Disorder: Yes - Musculoskeletal/Rheumatological Hx Musculoskeletal Disorders: Yes Hx Falls: Yes - Gastrointestinal Hx Gastrointestinal Disorders: Yes Hx Diverticulitis: Yes Hx Gall Bladder Disease: Yes (CHLOECYSTECTOMY) Hx Gastroesophageal Reflux: Yes Other/Comment: celiac disease, umbilical hernia - Genitourinary/Gynecological Hx Genitourinary Disorders: Yes Hx Urinary Tract Infection: Yes - Psychiatric Hx Psychophysiologic Disorder: Yes Hx Anxiety: Yes Hx Panic Disorder: Yes Hx Substance Use: No - Surgical History Hx Appendectomy: Yes Hx Cardiac Catheterization: Yes Hx Cholecystectomy: Yes Hx Coronary Stent: Yes (x2 ptca) Other/Comment: t12 kyphoplasty - Anesthesia Hx Anesthesia: Yes Hx Anesthesia Reactions: No Hx Malignant Hyperthermia: No - Suicidal Assessment Feels Threatened In Home Enviroment: No Family/Social History - Physician Review Nursing Documentation Reviewed: Yes Family/Social History: Unknown Family HX Smoking Status: Former Smoker Hx Alcohol Use: No Hx Substance Use: No Hx Substance Use Treatment: No Allergies/Home Meds Allergies/Adverse Reactions: Allergies morphine Allergy (Verified 04/17/18 02:59) VOMITING codeine Adverse Reaction (Verified 04/17/18 02:59) VOMITING hydromorphone HCl [From Dilaudid] Adverse Reaction (Verified 04/17/18 02:59) VOMITING MYOCINS Adverse Reaction (Uncoded 04/17/18 02:59) VOMITING Home Medications: Home Meds Medication Instructions Recorded Confirmed Atorvastatin Calcium 10 mg PO HS 12/12/17 04/17/18 Dexlansoprazole [Dexilant] 1 tab PO DAILY 01/29/18 04/17/18 Silver Sulfadiazine 1% [Silvadene 1 apful TOP PRN PRN 01/29/18 04/17/18 1%] Zinc Sulfate [Zinc-220] 1 cap PO DAILY 01/29/18 04/17/18 predniSONE [predniSONE Tab] 2.5 mg PO DAILY 02/25/18 04/17/18 Acetaminophen [Athenol] 2 tab PO Q4 PRN 04/17/18 04/17/18 Acetaminophen [Tylenol 325mg tab] 2 tab PO Q4 PRN 04/17/18 04/17/18 Albuterol/Ipratropium [Duoneb 3 3 ml IH [id number] PRN 04/17/18 04/17/18 mg/0.5 mg (3 ml) UD] Clotrimazole/Betamethasone 30 ml TOP HS 04/17/18 04/17/18 [Lotrisone] Docusate [Colace] 100 mg PO Q8 PRN 04/17/18 04/17/18 Ferrous Sulfate [Feosol] 325 mg PO DAILY 04/17/18 04/17/18 Gabapentin [Neurontin] 100 mg PO DAILY 04/17/18 04/17/18 Ibuprofen [Ibu] 600 mg PO Q8 PRN 04/17/18 04/17/18 Lidocaine 5% [Lidoderm] 1 patch TOP DAILY 04/17/18 04/17/18 Loperamide HCl [Anti-Diarrheal] 2 mg PO Q6 PRN 04/17/18 04/17/18 Ondansetron ODT [Zofran ODT] 4 mg PO Q6 PRN 04/17/18 04/17/18 Polyethylene Glycol 3350 [Miralax] 17 gm PO DAILY PRN 04/17/18 04/17/18 Sucralfate [Carafate Tab] 1 gm PO Q12 PRN 04/17/18 04/17/18 Tramadol HCl/Acetaminophen 1 tab PO Q6 04/17/18 04/17/18 [Acetaminophen-Tramadol HCl 325 mg-37.5 mg] Review of Systems - Physician Review All systems were reviewed & negative as marked: Yes - Review of Systems Constitutional: Normal. absent: Fevers Eyes: Normal ENT: Normal Respiratory: Normal. absent: SOB, Cough Cardiovascular: Normal. absent: Chest Pain Gastrointestinal: Normal. absent: Abdominal Pain, Diarrhea, Nausea, Vomiting Genitourinary Female: Normal. absent: Dysuria, Frequency, Hematuria, Urine Output Changes Musculoskeletal: Arthralgias (+right wrist pain). absent: Neck Pain Skin: Normal. absent: Rash Neurological: Normal. absent: Headache, Dizziness Endocrine: Normal Hemo/Lymphatic: Normal Psychiatric: Normal Physical Exam Vital Signs Reviewed: Yes Vital Signs Temp Pulse Resp BP Pulse Ox 04/17/18 03:00 98.1 F 87 18 127/49 L 95 Temperature: Afebrile Blood Pressure: Normal Pulse: Regular Respiratory Rate: Normal Appearance: Positive for: Well-Appearing, Non-Toxic, Comfortable Pain Distress: None Mental Status: Positive for: Alert and Oriented X 3 - Systems Exam Head: Present: Atraumatic, Normocephalic Pupils: Present: PERRL Extroacular Muscles: Present: EOMI Conjunctiva: Present: Normal Mouth: Present: Moist Mucous Membranes Neck: Present: Normal Range of Motion Respiratory/Chest: Present: Clear to Auscultation, Good Air Exchange. No: Respiratory Distress, Accessory Muscle Use Cardiovascular: Present: Regular Rate and Rhythm, Normal S1, S2. No: Murmurs Abdomen: No: Tenderness, Distention, Peritoneal Signs Back: Present: Normal Inspection. No: CVA Tenderness, Midline Tenderness, Paraspinal Tenderness Upper Extremity: Present: Tenderness (Some tenderness to the right wrist with palpation), Swelling (right wrist swelling). No: Cyanosis, Edema Lower Extremity: Present: Normal Inspection. No: Edema Neurological: Present: GCS=15, CN II-XII Intact, Speech Normal Skin: Present: Warm, Dry, Normal Color. No: Rashes Psychiatric: Present: Alert, Oriented x 3, Normal Insight, Normal Concentration Medical Decision Making ED Course and Treatment: 04/17/18 03:06 Impression: 83 year old female complaining of right wrist pain s/p fall at 18:00 yesterday. Differential Diagnosis included but are not limited to: fracture Plan: -- XR Right Wrist -- Reassess and disposition Progress Notes: 04/17/18 03:38 XR Right Wrist reviewed, shows fracture of the right wrist. 04/17/18 03:[address] Heaton, orthopedist, at family's request. Aware and agrees with plan. States he will come to evaluate pt in ER. 04/17/18 04:20 Dr. Heaton present in ER to reduce pt's right wrist at family's request. 04/17/18 04:[address] Heaton, repeat XR order to confirm reduction. 04/17/18 05:03 Repeat XR Right Wrist, shows successful reduction of right wrist. Pt in stable condition, tolerated procedure well. Dr. Heaton will f/u with pt in the longterm. - RAD Interpretation Radiology Orders: 04/17/18 03:06 WRIST, RIGHT 3 VIEWS [RAD] Stat 04/17/18 04:50 WRIST, RIGHT 3 VIEWS [RAD] Stat - Scribe Statement The provider has reviewed the documentation as recorded by the Eileenibjens Washburn Provider Scribe Attestation: All medical record entries made by the Scribe were at my direction and personally dictated by me. I have reviewed the chart and agree that the record accurately reflects my personal performance of the history, physical exam, medical decision making, and the department course for this patient. I have also personally directed, reviewed, and agree with the discharge instructions and disposition. Disposition/Present on Arrival - Present on Arrival Any Indicators Present on Arrival: No History of DVT/PE: No History of Uncontrolled Diabetes: No Urinary Catheter: No History of Decub. Ulcer: No History Surgical Site Infection Following: None - Disposition Have Diagnosis and Disposition been Completed?: Yes Diagnosis: Wrist fracture Disposition: TRANSF TO SNF Disposition Time: 05:10 Patient Plan: Discharge Condition: GOOD Discharge Instructions (ExitCare): Wrist Fracture (DC) Additional Instructions: Maintain arm cast/take meds for any discomfort as prescribed/ to see you at the longterm for follow up care. Prescriptions: traMADol/Acetaminophen [Ultracet 325 MG-37.5 MG] 1 tab PO Q6 PRN #16 tab PRN Reason: Pain Referrals: Tal Heaton DO [Staff Provider] - Follow up with primary Forms: [employer] (Yoruba)
[2018-04-17] MEDS ORDERED: Lidocaine 1% Inj (20ml) ONE (04:21)
[2018-04-17] MEDS ORDERED: Bupivacaine 0.5% Inj(30mL) ONE (04:22)
[2018-04-17 06:10] VITALS: BP 117/62; PULSE 68; O2SAT 98
--- NOTE | 2018-04-17 09:16 | RAD ---
Date of service: 04/17/2018 PROCEDURE: Right Wrist Radiographs. HISTORY: fall COMPARISON: None. FINDINGS: BONES: There is a comminuted angulated fracture of the distal radius. There is moderate to severe dorsal angulation JOINTS: Normal. No dislocation. SOFT TISSUES: Normal. OTHER FINDINGS: None. IMPRESSION: There is a comminuted angulated fracture of the distal radius. There is moderate to severe dorsal angulation
--- NOTE | 2018-04-17 09:18 | RAD ---
Date of service: 04/17/2018 PROCEDURE: Right Wrist Radiographs. HISTORY: post reduction COMPARISON: 04/17/2018 FINDINGS: BONES: There has been successful reduction of the distal radial fracture. There is no significant angulation. JOINTS: Normal. No dislocation. SOFT TISSUES: Normal. OTHER FINDINGS: Plaster cast IMPRESSION: There has been successful reduction of the distal radial fracture. There is no significant angulation.
--- NOTE | 2018-04-17 14:06 | CON ---
DATE: 04/17/2018 ORTHOPEDIC CONSULT REPORT I was called to see the halfway patient, an 83-year-old female, at 03:30 a.m. and she had a dorsally displaced closed distal radius fracture of the right arm and we did a hematoma block and did ligamentotaxis with finger traction, was able to accomplish reduction, getting those in neutral position from 45 degree dorsal angulation. We put her in a well-padded coaptation Plaster of Yumiko splint with the help of a hematoma block. the post redcction x-ray shows a satisfactory position. Because of her being 83 years old halfway patient, we did not want to put her to OR subjective to the risks of the surgery. I will put her on three weeks and we will take the cast off and put her on a splint and follow her closely. FINAL DIAGNOSES: Dorsally displaced distal right radius fracture, in part some intra-articular comminution and procedure was hematoma block, closed reduction, and application of coaptation long-arm cast. Tal Heaton DO JOSEPH
== END 2018-04-17 06:07 ==
LOC: ED 02:48
DX: S62.101D Fracture of unspecified carpal bone, right wrist, subsequent encounter for fracture with routine healing (principal); W05.0XXD Fall from non-moving wheelchair, subsequent encounter

== ENCOUNTER 2018-04-20 11:56 | Emergency (ER) | payer MEDICARE, MEDICAID ==
[2018-04-20 11:57] VITALS: BMI 21.9
[2018-04-20 12:48] VITALS: BP 110/59; PULSE 89; RESP 18; TEMP 97.9; O2SAT 99
--- NOTE | 2018-04-20 12:48 | ED PDOC ---
Arrival/HPI - General Chief Complaint: Upper Extremity Problem/Injury Time Seen by Provider: 04/20/18 12:19 Historian: Patient, Family (Daughter) - History of Present Illness Narrative History of Present Illness (Text): 04/20/18 12:40 An 83 year od female, whose past medical history includes Diabetes, chronic obstructive pulmonary disease, congestive heart failure, stents, spinal stenosis , and scoliosis, presents to the emergency department with a complaint of color change and numbness to her right hand. The patient notes that she began to notice the bruising to her right hand last night and worsened this morning. Patient also complains of chronic back pain at times and request stronger pain medication. No back pain now because they gave her tramadol at the rehab center. The patient denies fevers, chills, headache, dizziness, sore throat, cough, chest pain, shortness of breath, dyspnea on exertion, abdominal pain, nausea, vomiting, diarrhea, neck pain, urinary/bowel changes or any other complaint. PMD: Dr. Beth Orthopedics: Dr. Heaton Time/Duration: Other (Last Night) Symptom Onset: Gradual Symptom Course: Unchanged Activities at Onset: Rest, Light Context: Home Past Medical History - Provider Review Nursing Documentation Reviewed: Yes - Past History Past History: No Previous - Infectious Disease Hx of Infectious Diseases: None - Tetanus Immunization Tetanus Immunization: Unknown - Cardiac Hx Cardiac Disorders: Yes Hx Congestive Heart Failure: Yes - Pulmonary Hx Respiratory Disorders: Yes Hx Chronic Obstructive Pulmonary Disease (COPD): Yes - Neurological Hx Neurological Disorder: Yes Hx Dizziness: Yes - HEENT Hx HEENT Disorder: Yes Hx Cataracts: Yes - Renal Hx Renal Disorder: Yes - Endocrine/Metabolic Hx Endocrine Disorders: Yes Hx Diabetes Mellitus Type 2: Yes - Hematological/Oncological Hx Blood Disorders: Yes Hx Anemia: Yes Hx Blood Transfusions: Yes - Integumentary Hx Dermatological Disorder: Yes - Musculoskeletal/Rheumatological Hx Musculoskeletal Disorders: Yes Hx Falls: Yes Hx Fractures: Yes (R WRIST) - Gastrointestinal Hx Gastrointestinal Disorders: Yes Hx Diverticulitis: Yes Hx Gall Bladder Disease: Yes (CHLOECYSTECTOMY) Hx Gastroesophageal Reflux: Yes Other/Comment: celiac disease, umbilical hernia - Genitourinary/Gynecological Hx Genitourinary Disorders: Yes Hx Urinary Tract Infection: Yes - Psychiatric Hx Psychophysiologic Disorder: Yes Hx Anxiety: Yes Hx Panic Disorder: Yes Hx Substance Use: No - Surgical History Hx Appendectomy: Yes Hx Cardiac Catheterization: Yes Hx Cholecystectomy: Yes Hx Coronary Stent: Yes - Anesthesia Hx Anesthesia: Yes Hx Anesthesia Reactions: No Hx Malignant Hyperthermia: No - Suicidal Assessment Feels Threatened In Home Enviroment: No Family/Social History - Physician Review Nursing Documentation Reviewed: Yes Family/Social History: No Known Family HX Smoking Status: Former Smoker Hx Alcohol Use: No Hx Substance Use: No Hx Substance Use Treatment: No Allergies/Home Meds Allergies/Adverse Reactions: Allergies morphine Allergy (Verified 04/20/18 12:01) VOMITING codeine Adverse Reaction (Verified 04/20/18 12:01) VOMITING hydromorphone HCl [From Dilaudid] Adverse Reaction (Verified 04/20/18 12:01) VOMITING MYOCINS Adverse Reaction (Uncoded 04/20/18 12:01) VOMITING Home Medications: Home Meds Medication Instructions Recorded Confirmed Atorvastatin Calcium 10 mg PO HS 12/12/17 04/20/18 Dexlansoprazole [Dexilant] 1 tab PO DAILY 01/29/18 04/20/18 Zinc Sulfate [Zinc-220] 1 cap PO DAILY 01/29/18 04/20/18 predniSONE [predniSONE Tab] 2.5 mg PO DAILY 02/25/18 04/20/18 Acetaminophen [Tylenol 325mg tab] 2 tab PO Q4 PRN 04/17/18 04/20/18 Albuterol/Ipratropium [Duoneb 3 3 ml IH [id number] PRN 04/17/18 04/20/18 mg/0.5 mg (3 ml) UD] Clotrimazole/Betamethasone 30 ml TOP HS 04/17/18 04/20/18 [Lotrisone] Docusate [Colace] 100 mg PO Q8 PRN 04/17/18 04/20/18 Ferrous Sulfate [Feosol] 325 mg PO DAILY 04/17/18 04/20/18 Ibuprofen [Ibu] 600 mg PO Q8 PRN 04/17/18 04/20/18 Lidocaine 5% [Lidoderm] 1 patch TOP DAILY 04/17/18 04/20/18 Loperamide HCl [Anti-Diarrheal] 2 mg PO Q6 PRN 04/17/18 04/20/18 Ondansetron ODT [Zofran ODT] 4 mg PO Q6 PRN 04/17/18 04/20/18 Sucralfate [Carafate Tab] 1 gm PO Q12 PRN 04/17/18 04/20/18 Tramadol HCl/Acetaminophen 1 tab PO Q6 04/17/18 04/20/18 [Acetaminophen-Tramadol HCl 325 mg-37.5 mg] Aluminum Hydroxide/Magnesium H 30 ml PO Q4 PRN 04/20/18 04/20/18 [Maalox 30 ml] Review of Systems - Physician Review All systems were reviewed & negative as marked: Yes - Review of Systems Constitutional: absent: Fevers, Night Sweats Respiratory: absent: SOB, Cough Cardiovascular: absent: Chest Pain, GANN Gastrointestinal: absent: Abdominal Pain, Stool Changes, Diarrhea, Nausea, Vomiting Genitourinary Female: absent: Urine Output Changes Musculoskeletal: Back Pain, Other (Ecchymosis and numbness to right hand). absent: Neck Pain Neurological: absent: Headache, Dizziness Physical Exam Vital Signs Reviewed: Yes Vital Signs Temp Pulse Resp BP Pulse Ox 04/20/18 11:57 97.9 F 89 18 110/59 L 99 Temperature: Afebrile Blood Pressure: Hypotensive Pulse: Regular Respiratory Rate: Normal Appearance: Positive for: Well-Appearing, Non-Toxic, Comfortable Pain Distress: None Mental Status: Positive for: Alert and Oriented X 3 - Systems Exam Head: Present: Atraumatic, Normocephalic Pupils: Present: PERRL Extroacular Muscles: Present: EOMI Conjunctiva: Present: Normal Mouth: Present: Moist Mucous Membranes Neck: Present: Normal Range of Motion Respiratory/Chest: Present: Clear to Auscultation, Good Air Exchange. No: Respiratory Distress, Accessory Muscle Use Cardiovascular: Present: Regular Rate and Rhythm, Normal S1, S2. No: Murmurs Abdomen: No: Tenderness, Distention, Peritoneal Signs Back: Present: Normal Inspection. No: Midline Tenderness, Paraspinal Tenderness Upper Extremity: Present: Normal ROM (Full ROM of elbow. Patient moves all fingertips. ), Neurovascularly Intact (Patient feels sensation in all fingertips. ), Capillary Refill < 2s, Other (Right hand: Ecchymosis to the base on fingers. No ecchymosis to the finger tips. ). No: Temperature Abnormalties ( Same temperature on both hands) Lower Extremity: Present: Normal Inspection. No: Edema Neurological: Present: GCS=15, CN II-XII Intact, Speech Normal Skin: Present: Warm, Dry, Normal Color. No: Rashes Psychiatric: Present: Alert, Oriented x 3, Normal Insight, Normal Concentration Medical Decision Making ED Course and Treatment: 04/20/18 12:51 Impression: An 83 year old female presents to the emergency department with a complaint of right hand color change and numbness and back pain. Plan: -- Patient's right wrist is in a splint. It is placed correctly with good circulation to her extremity. There is no concern for neurovascular compromise. Good cap refill <2sec. Fili wrap is appropriately placed and not tight. Progress Notes: 04/20/18 12:38: Case discussed in detail with Dr. Heaton who agrees with plan to discharge patient to [facility] and will follow up with her tomorrow. He recommends patient rest and elevate. Patient is requesting stronger pain medication for her chronic back pain. She notes that Tramadol doesn't always relieve her pain. She will have to follow up with her PMD at the rehab center, Dr. Beth. Patient is in no acute distress. I have discussed the plan with the patient, who expresses understanding. Patient given the opportunity to ask question, all questions were answered and there is agreement with the plan to discharge the patient home. Patient is stable for discharge. Patient was instructed to follow up with Dr. Heaton tomorrow or return if symptoms persist/worsen or new concerning symptoms arise. - Scribe Statement The provider has reviewed the documentation as recorded by the Araceli Cortez Provider Eileenibe Attestation: All medical record entries made by the Eileenibjens were at my direction and personally dictated by me. I have reviewed the chart and agree that the record accurately reflects my personal performance of the history, physical exam, medical decision making, and the department course for this patient. I have also personally directed, reviewed, and agree with the discharge instructions and disposition. Disposition/Present on Arrival - Present on Arrival Any Indicators Present on Arrival: No History of DVT/PE: No History of Uncontrolled Diabetes: No Urinary Catheter: No History of Decub. Ulcer: No History Surgical Site Infection Following: None - Disposition Have Diagnosis and Disposition been Completed?: Yes Diagnosis: Right wrist pain Disposition: HOME/ ROUTINE Disposition Time: 13:04 Patient Plan: Discharge Condition: IMPROVED Discharge Instructions (ExitCare): Wrist Fracture (DC) Additional Instructions: BEHZAD HASSAN, thank you for letting us take care of you today. Your provider was Rishabh Ceballos DO and you were treated for Cast Check for Recent Wrist Fracture. The emergency medical care you received today was directed at your acute symptoms. If you were prescribed any medication, please fill it and take as directed. It may take several days for your symptoms to resolve. Return to the Emergency Department if your symptoms worsen, do not improve, or if you have any other problems. Please contact your doctor or call one of the physicians/clinics you have been referred to that are listed on the Patient Visit Information form that is included in your discharge packet. Bring any paperwork you were given at discharge with you along with any medications you are taking to your follow up visit. Our treatment cannot replace ongoing medical care by a primary care provider outside of the emergency department. Thank you for allowing the [facility] team to be part of your care today. If you had an X-Ray or CT scan: A Radiologist will review the ED reading if any change in treatment is needed we will contact you. If you had a blood, urine, or wound culture: It will take several days for the results, if any change in treatment is needed we will contact you. If you had an STI test: It will take 48 hours for the results. Please call after 1 week if you have not heard back. Referrals: Tal Heaton DO [Staff Provider] - Follow up with primary Renea Beth MD [Staff Provider] - Follow up with primary Forms: [employer] (Swedish)
== END 2018-04-20 13:37 | disposition home or self-care (01) ==
LOC: ED 11:56
DX: M25.531 Pain in right wrist (principal); E11.9 Type 2 diabetes mellitus without complications; Z87.891 Personal history of nicotine dependence

== ENCOUNTER 2018-08-30 15:19 | Emergency (ER) | payer MEDICARE, MEDICAID ==
[2018-08-30 15:31] VITALS: RESP 18; TEMP 97.9; O2SAT 100; BMI 20.7
[2018-08-30] MEDS ORDERED: oxyCODONE 5 mg Immediate Release Tab PO STA (15:36)
--- NOTE | 2018-08-30 15:59 | ED PDOC ---
Arrival/HPI - General Time Seen by Provider: 08/30/18 15:27 Historian: Patient - History of Present Illness Narrative History of Present Illness (Text): 08/30/18 15:55 A 83 year old female, whose past medical history includes kyphoplasty (performed last year), presents to the emergency department complaining of persistent lower back pain since surgery. Patient has been evaluated in the ER for pain, with negative X-Ray findings. Patient states she takes Oxycodone for pain at home. On 08/24/18, she saw Dr. Valentine, who wants a repeat Chest X-ray and Thoracic Spinal X-Ray to rule out compression fractures. Patient's son reports that it is difficult to schedule as outpatient so he brought patient to emergency department for xrays with the rx from Dr. Barrios. Patient denies any new pain, weakness, fatigue, or any other complaints at this time. Also, patient mentions she is able to ambulate with rolling walker. PMD: Dr. Valentine 08/30/18 18:49 Past Medical History - Provider Review Nursing Documentation Reviewed: Yes - Past History Past History: No Previous - Infectious Disease Hx of Infectious Diseases: None - Tetanus Immunization Tetanus Immunization: Unknown - Cardiac Hx Cardiac Disorders: Yes Hx Congestive Heart Failure: Yes - Pulmonary Hx Respiratory Disorders: Yes Hx Chronic Obstructive Pulmonary Disease (COPD): Yes - Neurological Hx Neurological Disorder: Yes Hx Dizziness: Yes - HEENT Hx HEENT Disorder: Yes Hx Cataracts: Yes - Renal Hx Renal Disorder: Yes - Endocrine/Metabolic Hx Endocrine Disorders: Yes Hx Diabetes Mellitus Type 2: Yes - Hematological/Oncological Hx Blood Disorders: Yes Hx Anemia: Yes Hx Blood Transfusions: Yes - Integumentary Hx Dermatological Disorder: Yes - Musculoskeletal/Rheumatological Hx Musculoskeletal Disorders: Yes Hx Falls: Yes Hx Fractures: Yes (R WRIST) - Gastrointestinal Hx Gastrointestinal Disorders: Yes Hx Diverticulitis: Yes Hx Gall Bladder Disease: Yes (CHLOECYSTECTOMY) Hx Gastroesophageal Reflux: Yes Other/Comment: celiac disease, umbilical hernia - Genitourinary/Gynecological Hx Genitourinary Disorders: Yes Hx Urinary Tract Infection: Yes - Psychiatric Hx Psychophysiologic Disorder: Yes Hx Anxiety: Yes Hx Panic Disorder: Yes Hx Substance Use: No - Surgical History Hx Appendectomy: Yes Hx Cardiac Catheterization: Yes Hx Cholecystectomy: Yes Hx Coronary Stent: Yes - Anesthesia Hx Anesthesia: Yes Hx Anesthesia Reactions: No Hx Malignant Hyperthermia: No - Suicidal Assessment Feels Threatened In Home Enviroment: No Family/Social History - Physician Review Nursing Documentation Reviewed: Yes Family/Social History: No Known Family HX Smoking Status: Former Smoker Hx Alcohol Use: No Hx Substance Use: No Hx Substance Use Treatment: No Allergies/Home Meds Allergies/Adverse Reactions: Allergies morphine Allergy (Verified 04/20/18 12:01) VOMITING codeine Adverse Reaction (Verified 04/20/18 12:01) VOMITING hydromorphone HCl [From Dilaudid] Adverse Reaction (Verified 04/20/18 12:01) VOMITING MYOCINS Adverse Reaction (Uncoded 04/20/18 12:01) VOMITING Home Medications: Home Meds Medication Instructions Recorded Confirmed Atorvastatin Calcium 10 mg PO HS 12/12/17 08/30/18 predniSONE [predniSONE Tab] 2.5 mg PO DAILY 02/25/18 08/30/18 Ferrous Sulfate [Feosol] 325 mg PO DAILY 04/17/18 08/30/18 Ondansetron ODT [Zofran ODT] 4 mg PO PRN PRN 04/17/18 08/30/18 ALPRAZolam [Xanax] 0.5 mg PO PRN PRN 08/30/18 08/30/18 Aspirin [Aspirin Chewable] 81 mg PO DAILY 08/30/18 08/30/18 Budesonide [Pulmicort Respules] 0.5 mg IH BID 08/30/18 08/30/18 Dexlansoprazole [Dexilant] 60 mg PO DAILY 08/30/18 08/30/18 Oxycodone HCl/Acetaminophen 1 tab PO BID 08/30/18 08/30/18 [Acetaminophen-Oxycodone 325 mg-5 mg] Sildenafil [Revatio] 20 mg PO BID 08/30/18 08/30/18 Tramadol HCl/Acetaminophen 1 tab PO Q8 PRN 08/30/18 08/30/18 [Acetaminophen-Tramadol HCl 325 mg-37.5 mg] Review of Systems - Review of Systems Constitutional: absent: Fatigue, Other (no weakness) Eyes: absent: Vision Changes ENT: absent: Hearing Changes Respiratory: absent: SOB, Cough, Sputum, Wheezing Cardiovascular: absent: Chest Pain Gastrointestinal: absent: Abdominal Pain, Constipation, Diarrhea, Nausea, Vomiting Genitourinary Female: absent: Dysuria, Frequency, Urine Output Changes Musculoskeletal: Back Pain (lower region (chronic)). absent: Neck Pain Neurological: absent: Headache, Dizziness, Focal Weakness, Gait Changes, Speech Changes, Facial Droop, Disequilibrium, Seizure Physical Exam Vital Signs Reviewed: Yes Vital Signs Temp Pulse Resp BP Pulse Ox 08/30/18 15:30 97.9 F 80 18 136/86 100 Temperature: Afebrile Blood Pressure: Normal Pulse: Regular Respiratory Rate: Normal Appearance: Positive for: Well-Appearing, Non-Toxic, Comfortable Pain Distress: None Mental Status: Positive for: Alert and Oriented X 3 - Systems Exam Head: Present: Atraumatic, Normocephalic Pupils: Present: PERRL Extroacular Muscles: Present: EOMI Conjunctiva: Present: Normal Mouth: Present: Moist Mucous Membranes Neck: Present: Normal Range of Motion Respiratory/Chest: Present: Clear to Auscultation, Good Air Exchange. No: Respiratory Distress, Accessory Muscle Use Cardiovascular: Present: Regular Rate and Rhythm, Normal S1, S2. No: Murmurs Abdomen: No: Tenderness, Distention, Peritoneal Signs Back: Present: Other (pinpoint tenderness to upper thoracic spinal region (per patient, location of where kyphoplasty was performed).) Upper Extremity: Present: Normal Inspection, Normal ROM. No: Cyanosis, Edema Lower Extremity: Present: Normal Inspection, Normal ROM. No: Edema Neurological: Present: GCS=15, CN II-XII Intact, Speech Normal, Motor Func Grossly Intact, Normal Sensory Function, Gait Normal (with assistance) Skin: Present: Warm, Dry, Normal Color. No: Rashes Psychiatric: Present: Alert, Oriented x 3, Normal Insight, Normal Concentration Medical Decision Making ED Course and Treatment: 08/30/18 15:59 Impression: 83 year old female with lower back pain. Plan: -- Chest X-ray -- Oxycodone -- Thoracic Spinal X-Ray -- Reassess and disposition Progress Notes: 08/30/18 16:09 Patient refuses to take medications here in the ER. 08/30/18 18:50 Made aware that xray and thoracic spine as read by me are negative. Will dc to follow-up with PMD who ordered tests 08/30/18 20:11 - RAD Interpretation Radiology Orders: 08/30/18 15:35 CHEST TWO VIEWS (PA/LAT) [RAD] Stat THORACIC SPINE [DORSAL (THORACIC) SPINE] [RAD] Stat - Medication Orders Current Medication Orders: Discontinued Medications Oxycodone HCl (Oxycodone Immediate Release Tab) 5 mg PO STAT STA Stop: 08/30/18 15:37 - Scribe Statement The provider has reviewed the documentation as recorded by the Araceli Back Provider Scribe Attestation: All medical record entries made by the Scribe were at my direction and personally dictated by me. I have reviewed the chart and agree that the record accurately reflects my personal performance of the history, physical exam, medical decision making, and the department course for this patient. I have also personally directed, reviewed, and agree with the discharge instructions and di sposition. Disposition/Present on Arrival - Present on Arrival Any Indicators Present on Arrival: No History of DVT/PE: No History of Uncontrolled Diabetes: No Urinary Catheter: No History Surgical Site Infection Following: None - Disposition Have Diagnosis and Disposition been Completed?: Yes Diagnosis: Back pain Disposition: HOME/ ROUTINE Disposition Time: 18:50 Patient Plan: Discharge Patient Problems: Current Active Problems Problem Status Onset Back pain Acute Condition: GOOD Discharge Instructions (ExitCare): Upper Back Pain Additional Instructions: Follow-up with Dr. Barrios within 2 days for official xray results. Return to emergency department if condition worsens. Take oxycodone as prescribed by Dr. Barrios for chronic back pain.
[2018-08-30 18:13] VITALS: BP 131/71; PULSE 75
--- NOTE | 2018-08-31 11:15 | RAD ---
Date of service: 08/30/2018 HISTORY: Shortness of breath COMPARISON: 01/29/2018 TECHNIQUE: Chest PA and lateral FINDINGS: LINES AND TUBES: None. LUNG AND PLEURA: The lungs are hyperinflated and there is peribronchial thickening with chronic changes in both lungs. No pleural effusion or pneumothorax. HEART AND MEDIASTINUM: The heart is not enlarged. No aortic atherosclerotic calcification present. The hilar and mediastinal contours are within normal limits. SKELETAL STRUCTURES: There is diffuse bone demineralization and multilevel degenerative changes in the spine. VISUALIZED UPPER ABDOMEN: Normal. OTHER FINDINGS: None. IMPRESSION: No active pulmonary disease. COPD.
--- NOTE | 2018-08-31 14:39 | RAD ---
Date of service: 08/30/2018 HISTORY: back pain COMPARISON: No prior. FINDINGS: BONES: There is severe diffuse bone demineralization. No acute fracture or bone destruction. Status post kyphoplasty in the L1 vertebral body. There is an age indeterminate but likely chronic osteoporotic compression fracture deformity in the L2 vertebral body. DISC SPACES: There are multilevel degenerative changes with reduced disc heights and anterior osteophytes SOFT TISSUES: Normal. OTHER FINDINGS: None. IMPRESSION: No acute fracture. In the thoracic spine
== END 2018-08-30 20:49 | disposition home or self-care (01) ==
LOC: ED 15:19
DX: M54.9 Dorsalgia, unspecified (principal); I50.9 Heart failure, unspecified; J44.9 Chronic obstructive pulmonary disease, unspecified; Z87.891 Personal history of nicotine dependence

== ENCOUNTER 2018-09-10 06:27 | Inpatient (IN) | payer MEDICAID, MEDICARE ==
[2018-09-10 06:33] VITALS: BMI 20.4
[2018-09-10] MEDS ORDERED: Sodium Chloride 0.9% 1,000 ML IV STA ×2 (07:25→11:42)
--- NOTE | 2018-09-10 07:29 | ED PDOC ---
Arrival/HPI - General Chief Complaint: Back Pain Time Seen by Provider: 09/10/18 07:12 Historian: Patient - History of Present Illness Narrative History of Present Illness (Text): 09/10/18 07:25 83 year old female, whose past medical history includes COPD, pulmonary hypertension, 2 current abdominal hernias, chronic back pain, and OIC, who presents to the Emergency department complaining of cough, abdominal pain, and mid back pain x 2 weeks. Patient notes associated nausea and "scant" urine. Patient states her last bowel movement was 3 days ago. Patient denies any falls, fever, chills, chest pain, shortness of breath, vomiting, diarrhea, neck pain, headache, dizziness, or any other complaints. PMD: Dr. Valentine Corrective Therapy Aide Teacher: Dr. Echavarria Retread Operator: Dr. Ireland Time/Duration: < month (2 weeks) Symptom Onset: Gradual Symptom Course: Unchanged Activities at Onset: Light Context: Home Past Medical History - Provider Review Nursing Documentation Reviewed: Yes - Past History Past History: No Previous - Infectious Disease Hx of Infectious Diseases: None - Tetanus Immunization Tetanus Immunization: Unknown - Cardiac Hx Cardiac Disorders: Yes Hx Congestive Heart Failure: Yes - Pulmonary Hx Respiratory Disorders: Yes Hx Chronic Obstructive Pulmonary Disease (COPD): Yes - Neurological Hx Neurological Disorder: Yes Hx Dizziness: Yes - HEENT Hx HEENT Disorder: Yes Hx Cataracts: Yes - Renal Hx Renal Disorder: Yes - Endocrine/Metabolic Hx Endocrine Disorders: Yes Hx Diabetes Mellitus Type 2: Yes - Hematological/Oncological Hx Blood Disorders: Yes Hx Anemia: Yes Hx Blood Transfusions: Yes - Integumentary Hx Dermatological Disorder: Yes - Musculoskeletal/Rheumatological Hx Musculoskeletal Disorders: Yes Hx Falls: Yes Hx Fractures: Yes (R WRIST) - Gastrointestinal Hx Gastrointestinal Disorders: Yes Hx Diverticulitis: Yes Hx Gall Bladder Disease: Yes (CHLOECYSTECTOMY) Hx Gastroesophageal Reflux: Yes Other/Comment: celiac disease, umbilical hernia - Genitourinary/Gynecological Hx Genitourinary Disorders: Yes Hx Urinary Tract Infection: Yes - Psychiatric Hx Psychophysiologic Disorder: Yes Hx Anxiety: Yes Hx Panic Disorder: Yes Hx Substance Use: No - Surgical History Hx Appendectomy: Yes Hx Cardiac Catheterization: Yes Hx Cholecystectomy: Yes Hx Coronary Stent: Yes - Anesthesia Hx Anesthesia: Yes Hx Anesthesia Reactions: No Hx Malignant Hyperthermia: No - Suicidal Assessment Feels Threatened In Home Enviroment: No Family/Social History - Physician Review Nursing Documentation Reviewed: Yes Family/Social History: Unknown Family HX Smoking Status: Former Smoker Hx Alcohol Use: No Hx Substance Use: No Hx Substance Use Treatment: No Allergies/Home Meds Allergies/Adverse Reactions: Allergies morphine Allergy (Verified 04/20/18 12:01) VOMITING codeine Adverse Reaction (Verified 04/20/18 12:01) VOMITING hydromorphone HCl [From Dilaudid] Adverse Reaction (Verified 04/20/18 12:01) VOMITING MYOCINS Adverse Reaction (Uncoded 04/20/18 12:01) VOMITING Home Medications: Home Meds Medication Instructions Recorded Confirmed RX: Atorvastatin Calcium 10 mg PO HS 12/12/17 09/10/18 RX: predniSONE [predniSONE Tab] 2.5 mg PO DAILY 02/25/18 09/10/18 Ondansetron ODT [Zofran ODT] 4 mg PO PRN PRN 04/17/18 09/10/18 RX: Ferrous Sulfate [Feosol] 325 mg PO DAILY 04/17/18 09/10/18 ALPRAZolam [Xanax] 0.5 mg PO PRN PRN 08/30/18 09/10/18 Dexlansoprazole [Dexilant] 60 mg PO DAILY 08/30/18 09/10/18 RX: Aspirin [Aspirin Chewable] 81 mg PO DAILY 08/30/18 09/10/18 Sildenafil [Revatio] 20 mg PO BID 08/30/18 09/10/18 Tramadol HCl/Acetaminophen 1 tab PO Q8 PRN 08/30/18 09/10/18 [Acetaminophen-Tramadol HCl 325 mg-37.5 mg] Arformoterol [Brovana] 1 vial INH BID 09/10/18 09/10/18 RX: Docusate Sodium [Trevino' 100 mg PO Q8 09/10/18 09/10/18 Laxative] RX: Meclizine [Antivert] 1 tab PO BID 09/10/18 09/10/18 Review of Systems - Physician Review All systems were reviewed & negative as marked: Yes - Review of Systems Constitutional: Normal Eyes: Normal ENT: Normal Respiratory: Normal. absent: SOB, Cough Cardiovascular: Normal. absent: Chest Pain Gastrointestinal: Abdominal Pain Genitourinary Female: Normal. absent: Dysuria, Frequency Musculoskeletal: Back Pain. absent: Neck Pain Skin: Normal. absent: Rash Neurological: Normal. absent: Headache, Dizziness Endocrine: Normal Hemo/Lymphatic: Normal Psychiatric: Normal Physical Exam - Physical Exam Narrative Physical Exam (Text): 09/10/18 07:30 Gen: NAD, cooperative, well appearing, non-toxic. Head: NCAT. EYES: PERRL, EOMI, conjunctiva clear, MOUTH: moist MM, posterior pharynx without erythema or exudate, uvula midline. CV: (+) S1S2, RRR, no M/G/R LUNGS: decreased breath sounds. Rhochi. CTA B/L, No wheezing/rales Abd: Soft, suprapubic tenderness, no guarding, rebound or rigidity. Back: lower thoracic back tenderness Neuro: AAO x 3, CN 2-12 intact, motor and sensory grossly intact ext: bilateral lower extremity edema Vital Signs Reviewed: Yes Vital Signs Temp Pulse Resp BP Pulse Ox 09/10/18 06:39 97.5 F L 82 18 120/76 98 Temperature: Afebrile Blood Pressure: Normal Pulse: Regular Respiratory Rate: Normal Appearance: Positive for: Well-Appearing, Non-Toxic, Comfortable Pain Distress: None Mental Status: Positive for: Alert and Oriented X 3 Medical Decision Making ED Course and Treatment: 09/10/18 07:33 Impression: 83 year old female presents to the Emergency department complaining of mid back pain x weeks. Plan: -- CT abdomen/ pelvis -- Labs -- Chest X-ray -- Sodium Chloride -- Urine Culture -- Blood Culture -- UA -- Reassess and disposition Progress Notes: 09/10/18 08:49 CT with IV contrast refused, pt's son stated the last time pt had IV , pt had a reaction. CT w/o contrast ordered. 09/10/18 10:38 CT Thoracic Spine reviewed, shows: IMPRESSION: No acute findings related to/ accounting for the clinical presentation. Additional benign and/or incidental findings described above. CT Abdomen/Pelvis reviewed, shows: IMPRESSION: New compression deformity L1 vertebral body compared to the prior CT 02/25/2018. Multiple benign and incidental findings similar to that seen on the prior CT scan noted. 09/10/18 10:[address] Reed, who is aware and agrees with plan. Accepts pt to service. 09/10/18 10:46 Results of workup discussed with family of patient. 09/10/18 11:54 Chest X-ray reviewed, shows: IMPRESSION: No active disease. No significant interval change compared to the prior examination(s). 09/10/18 12:49 EKG reviewed, shows NSR at 82 bpm. Normal intervals. Normal axis. No ST eleva tions or depressions. Non-specific T wave changes. No ischemia - Scribe Statement The provider has reviewed the documentation as recorded by the Scribjens Schwarz All medical record entries made by the Scribe were at my direction and personally dictated by me. I have reviewed the chart and agree that the record accurately reflects my personal performance of the history, physical exam, medical decision making, and the department course for this patient. I have also personally directed, reviewed, and agree with the discharge instructions and disposition. Disposition/Present on Arrival - Present on Arrival Any Indicators Present on Arrival: No History of DVT/PE: No History of Uncontrolled Diabetes: No Urinary Catheter: No History of Decub. Ulcer: No History Surgical Site Infection Following: None - Disposition Have Diagnosis and Disposition been Completed?: Yes Diagnosis: Back pain, Compression fracture of L1 lumbar vertebra Disposition: HOSPITALIZED Disposition Time: 12:42 Patient Plan: Admission Patient Problems: Current Active Problems Problem Status Onset Back pain Acute Compression fracture of L1 lumbar vertebra Acute Condition: STABLE
[2018-09-10 08:19] LABS: ALB/GLOB RATIO 1.4 (1.1-1.8); ALBUMIN 3.6 g/dL (3.0-4.8); ALT/SGPT 26 U/L (7-56); AST/SGOT 21 U/L (14-36); BLOOD UREA NITROGEN 22 mg/dL (7-21); CALCIUM 9.5 mg/dL (8.4-10.5); GFR NON-AFRICAN AMERICAN > 60; LIPASE 36 U/L (23-300)
[2018-09-10 08:21] LABS: BASO # 0.01 K/mm3 (0.0-2.0); BASO % 0.2 % (0.0-3.0); EOS # 0.2 (0.0-0.7); EOS % 4.1 % (1.5-5.0); GRAN # 3.75 (1.4-6.5); GRAN % 67.3 % (50.0-68.0); HEMOGLOBIN 10.6 g/dL (12.0-16.0); LYMPH % 18.7 % (22.0-35.0); MEAN CELL VOLUME 96.8 fl (80.0-105.0); MEAN CORPUSCULAR HEMOGLOBIN 31.2 pg (25.0-35.0); MEAN CORPUSCULAR HGB CONC 32.2 g/dl (31.0-37.0); MEAN PLATELET VOLUME 11.3 fl (7.0-11.0); MONO # 0.5 (0.1-0.6); MONO % 9.7 % (1.0-6.0); RBC 3.4 10^6/uL (3.5-6.1); RED CELL DISTRIBUTION WIDTH 12.5 % (11.5-14.5); WHITE BLOOD COUNT 5.6 10^3/uL (4.5-11.0)
[2018-09-10 08:26] LABS: PH,URINE 6.5 (4.7-8.0); URINE BILIRUBIN NEGATIVE (NEGATIVE); URINE BLOOD NEGATIVE (NEGATIVE); URINE GLUCOSE (UA) NEGATIVE (NEGATIVE); URINE LEUKOCYTE ESTERASE NEGATIVE Leu/uL (NEGATIVE); URINE PROTEIN NEGATIVE mg/dL (<30 mg/dL)
[2018-09-10 08:28] LABS: URINE APPEARANCE CLEAR (CLEAR); URINE COLOR YELLOW (YELLOW)
[2018-09-10] MEDS ORDERED: Iohexol 350 MG/100 ML VIAL ONE (08:38)
--- NOTE | 2018-09-10 10:21 | CT ---
Date of service: 09/10/2018 PROCEDURE: CT Thoracic Spine without contrast HISTORY: back pain COMPARISON: 08/30/2018 thoracic spine radiographs. TECHNIQUE: Axial computed tomography images were obtained of the thoracic spine without intravenous contrast. Coronal and sagittal reformatted images were created and reviewed. Radiation dose: Total exam DLP = 654.05 mGy-cm. This CT exam was performed using one or more of the following dose reduction techniques: Automated exposure control, adjustment of the mA and/or kV according to patient size, and/or use of iterative reconstruction technique. FINDINGS: VERTEBRAE: Scoliosis, secondary degenerative change at multiple levels. Moderate incompletely visualized thorough colles thoracic kyphosis.. Profound osteopenia. DISCS/SPINAL CANAL/NEURAL FORAMINA: Within the limits of the CT technique, no disc herniation seen. No central canal or neural foraminal stenosis.. PARASPINAL SOFT TISSUES: Unremarkable. OTHER FINDINGS: Prior kyphoplasty L1 vertebral body. Loss of height L2 vertebral body.. Moderate sized hiatal hernia. Left renal cyst approximately 2.5 cm. Atherosclerotic calcification and mural plaque present. Findings are seen throughout the aorta Severe incompletely visualize centrilobular emphysematous change. IMPRESSION: No acute findings related to/ accounting for the clinical presentation. Additional benign and/or incidental findings described above.
--- NOTE | 2018-09-10 10:29 | CT ---
Date of service: 09/10/2018 PROCEDURE: CT Abdomen and Pelvis without intravenous contrast HISTORY: Abdominal pain and back pain. COMPARISON: September 10, [address] reported separately. 02/25/2018 CT abdomen and pelvis. TECHNIQUE: Unenhanced. Neither IV nor oral contrast administered Radiation dose: Total exam DLP = 648.15 mGy-cm. This CT exam was performed using one or more of the following dose reduction techniques: Automated exposure control, adjustment of the mA and/or kV according to patient size, and/or use of iterative reconstruction technique. FINDINGS: LOWER THORAX: Severe centrilobular emphysematous change. Moderate hiatal hernia. LIVER: Unremarkable. No gross lesion or ductal dilatation. GALLBLADDER AND BILE DUCTS: Status post cholecystectomy. No abnormality is seen in the gallbladder fossa. PANCREAS: Unremarkable. No gross lesion or ductal dilatation. SPLEEN: Unremarkable. ADRENALS: Unremarkable. No mass. KIDNEYS AND URETERS: Unremarkable. No hydronephrosis. No solid mass. Stable simple renal cysts left kidney. VASCULATURE: Atherosclerotic calcification and mural plaque present. Findings are seen throughout the aorta without aortic aneurysm. BOWEL: Constipation without fecal impaction or obstruction. Surgical suture line descending colon extending to the mesentery are surgical clips. APPENDIX: No abnormalities to suggest acute appendicitis. No right lower quadrant inflammatory processes identified. The cecum/appendix reside within the pelvis adjacent to the urinary bladder. PERITONEUM: Unremarkable. No free fluid. No free air. LYMPH NODES: Unremarkable. No enlarged lymph nodes. BLADDER: Unremarkable. REPRODUCTIVE: Unremarkable. BONES: Evidence of prior kyphoplasty L1. Stable findings identified on the prior CT scan 02/25/2018. Compression deformity L2.Stable findings identified on the prior CT scan 02/25/2018 Compression deformity L5. new findings identified on the prior CT scan 02/25/2018 Profound osteopenia. OTHER FINDINGS: Anterior abdominal wall/ventral hernias again identified. IMPRESSION: New compression deformity L1 vertebral body compared to the prior CT 02/25/2018. Multiple benign and incidental findings similar to that seen on the prior CT scan noted.
[2018-09-10] MEDS ORDERED: Oxycodone/Acetaminophen 5/325 mg Tab PO STA (10:46)
--- NOTE | 2018-09-10 11:42 | RAD ---
Date of service: 09/10/2018 HISTORY: cough COMPARISON: 08/30/2018. FINDINGS: LUNGS: No active pulmonary disease. PLEURA: No significant pleural effusion identified, no pneumothorax apparent. CARDIOVASCULAR: No atherosclerotic calcification present Normal. OSSEOUS STRUCTURES: No significant abnormalities. VISUALIZED UPPER ABDOMEN: Normal. OTHER FINDINGS: Stable hiatal hernia. Findings related to L1 kyphoplasty IMPRESSION: No active disease. No significant interval change compared to the prior examination(s).
[2018-09-10] MEDS ORDERED: Albuterol-Ipratrop 3 mg / 0.5 (3 ml) UD IH PRN (12:00)
--- NOTE | 2018-09-10 12:06 | CP.PCM.HP ---
<Bouchra Virk - Last Filed: 09/10/18 17:55> History of Present Illness - History of Present Illness History of Present Illness: Resident History & Physical for Hospitalist Service Patient is an 83 year old female with past medical history of CHF, T2DM, HLD, COPD on home O2, pulmonary HTN, urinary incontinence presenting with back pain that began about two weeks prior. Pain is described as sharp and constant, localized to her mid back with a severity +10/10. Patient states that she has been unable to lie supine due to the pain. She denies trauma or any heavy lif ting. Patient also admits to lower abdominal pain. She typically takes Miralax and colace for opioid induced constipation, however she has not had a bowel movement in the past few days. Patient also has a nonproductive cough. She was given Levaquin 12 days ago with no symptomatic relief. Denies fevers, chills, chest pain, shortness of breath, nausea, vomiting, dysuria. PMH: CAD, CHF, T2DM, HLD, COPD on home O2, pulmonary HTN, urinary incontinence, anemia of chronic disease, osteoporosis PSH: kyphoplasty, bowel resection, cardiac cath with stents x2, cholecystectomy, ovarian cystectomy SHx: denies alcohol or illicit drug use. former smoker (1.5 PPD for 50 years) Allergies: morphine, codeine, hydromorphone HCl, myocins PMD: Dr. Valentine Present on Admission - Present on Admission Any Indicators Present on Admission: No Review of Systems - Review of Systems All systems: reviewed and no additional remarkable complaints except (as stated in HPI) Past Patient History - Infectious Disease Hx of Infectious Diseases: None - Tetanus Immunizations Tetanus Immunization: Unknown - Past Medical History & Family History Past Medical History?: Yes - Past Social History Smoking Status: Former Smoker - CARDIAC Hx Cardiac Disorders: Yes Hx Congestive Heart Failure: Yes - PULMONARY Hx Respiratory Disorders: Yes Hx Chronic Obstructive Pulmonary Disease (COPD): Yes - NEUROLOGICAL Hx Neurological Disorder: Yes Hx Dizziness: Yes - HEENT Hx HEENT Problems: Yes Hx Cataracts: Yes - RENAL Hx Chronic Kidney Disease: Yes - ENDOCRINE/METABOLIC Hx Endocrine Disorders: Yes Hx Diabetes Mellitus Type 2: Yes - HEMATOLOGICAL/ONCOLOGICAL Hx Blood Disorders: Yes Hx Anemia: Yes Hx Blood Transfusions: Yes - INTEGUMENTARY Hx Dermatological Problems: Yes - MUSCULOSKELETAL/RHEUMATOLOGICAL Hx Musculoskeletal Disorders: Yes Hx Falls: Yes Hx Fractures: Yes (R WRIST) - GASTROINTESTINAL Hx Gastrointestinal Disorders: Yes Hx Diverticulitis: Yes Hx Gall Bladder Disease: Yes (CHLOECYSTECTOMY) Hx Gastroesophageal Reflux: Yes Other/Comment: celiac disease, umbilical hernia - GENITOURINARY/GYNECOLOGICAL Hx Genitourinary Disorders: Yes Hx Urinary Tract Infection: Yes - PSYCHIATRIC Hx Psychophysiologic Disorder: Yes Hx Anxiety: Yes Hx Panic Symptoms: Yes Hx Substance Use: No - SURGICAL HISTORY Hx Appendectomy: Yes Hx Cardiac Catheterization: Yes Hx Cholecystectomy: Yes Hx Coronary Stent: Yes - ANESTHESIA Hx Anesthesia: Yes Hx Anesthesia Reactions: No Hx Malignant Hyperthermia: No Meds Allergies/Adverse Reactions: Allergies Allergy/AdvReac Type Severity Reaction Status Date / Time morphine Allergy VOMITING Verified 04/20/18 12:01 codeine AdvReac VOMITING Verified 04/20/18 12:01 hydromorphone HCl AdvReac VOMITING Verified 04/20/18 12:01 [From Dilaudid] MYOCINS AdvReac VOMITING Uncoded 04/20/18 12:01 Physical Exam - Constitutional Appears: Non-toxic, No Acute Distress - Head Exam Head Exam: ATRAUMATIC, NORMOCEPHALIC - Eye Exam Eye Exam: EOMI, Normal appearance, PERRL - ENT Exam ENT Exam: Mucous Membranes Moist, Normal External Ear Exam - Neck Exam Neck exam: Positive for: Normal Inspection. Negative for: Lymphadenopathy, Tenderness, Thyromegaly - Respiratory Exam Respiratory Exam: Clear to Auscultation Bilateral, Wheezes, NORMAL BREATHING PATTERN. absent: Accessory Muscle Use, Rales, Rhonchi, Respiratory Distress - Cardiovascular Exam Cardiovascular Exam: REGULAR RHYTHM, +S1. absent: Gallop, Systolic Murmur - GI/Abdominal Exam GI & Abdominal Exam: Soft. absent: Distended, Rebound, Tenderness Additional comments: ventral hernia midline surgical scar tender in left and right lower quadrants - Extremities Exam Extremities exam: Positive for: normal capillary refill, pedal edema, pedal pulses present - Back Exam Back exam: muscle spasm, vertebral tenderness (mid to low thoracic ). absent: rash noted - Neurological Exam Neurological exam: Alert, CN II-XII Intact, Oriented x3, Reflexes Normal - Psychiatric Exam Psychiatric exam: Anxious, Normal Affect - Skin Skin Exam: Dry, Intact, Normal Color Results - Vital Signs Recent Vital Signs: Last Vital Signs Temp 98 F 09/10/18 11:39 Pulse 88 09/10/18 11:39 Resp 20 09/10/18 11:39 BP 129/50 L 09/10/18 11:39 Pulse Ox 96 09/10/18 11:39 - Labs Result Diagrams: 09/10/18 07:03 09/10/18 07:03 Labs: Laboratory Results - last 24 hr 09/10/18 09/10/18 09/10/18 07:03 07:03 08:00 WBC 5.6 RBC 3.40 L Hgb 10.6 L Hct 32.9 L MCV 96.8 D MCH 31.2 MCHC 32.2 RDW 12.5 Plt Count 157 MPV 11.3 H Gran % 67.3 Lymph % (Auto) 18.7 L [place] % (Auto) 9.7 H Eos % (Auto) 4.1 Baso % (Auto) 0.2 Gran # 3.75 Lymph # (Auto) 1.0 L [place] # (Auto) 0.5 Eos # (Auto) 0.2 Baso # (Auto) 0.01 Sodium 133 Potassium 4.5 Chloride 95 L Carbon Dioxide 34 H Anion Gap 8 L BUN 22 H Creatinine 0.7 Est GFR ( Amer) > 60 Est GFR (Non-Af Amer) > 60 Random Glucose 109 Calcium 9.5 Total Bilirubin 0.6 AST 21 ALT 26 Alkaline Phosphatase 71 Total Protein 6.2 Albumin 3.6 Globulin 2.6 Albumin/Globulin Ratio 1.4 Lipase 36 Urine Color Yellow Urine Appearance Clear Urine pH 6.5 Ur Specific Winn 1.015 Urine Protein Negative Urine Glucose (UA) Negative Urine Ketones Negative Urine Blood Negative Urine Nitrate Negative Urine Bilirubin Negative Urine Urobilinogen 1.0 H Ur Leukocyte Esterase Negative Assessment & Plan - Assessment and Plan (Free Text) Assessment: Patient is an 83 year old female with past medical history of CHF, T2DM, HLD, COPD on home O2, pulmonary HTN, urinary incontinence presenting with back pain, abdominal pain and cough. Plan: Back pain - Abd/pelvis CT shows new compression deformity L1 vertebral body, evidence of prior kyphoplasty L1, compression deformities L2 and L5, profound osteopenia - Flexiril 5 mg PO TID - Lidoderm patch - Tramadol - PT/OT eval Abdominal pain - likely due to opioid induced constipation - patient also has ventral hernia - CT shows constipation without fecal impaction or obstruction - Surgery consulted. Appreciate recs. - Dulcolax suppository, home colace, Miralax Cough - failed outpatient therapy - afebrile, no leukocytosis - CXR shows no active disease - CT shows severe centrilobular emphysematous change - followup blood and urine cultures, procal - flu negative - Pulmonology consulted. Appreciate recs. - Duonebs, Brovana Pulmonary HTN - home Revatio HLD - home Lipitor PPX - Lovenox 40 mg SC daily - home Dexilant Case discussed with Dr. Zuri Virk PGY-1 - Date & Time Date: 09/10/18 Time: 12:06 <Meme Keating - Last Filed: 09/11/18 08:09> Results - Vital Signs Recent Vital Signs: Last Vital Signs Temp 98.1 F 09/10/18 22:00 Pulse 84 09/10/18 22:00 Resp 18 09/10/18 22:00 BP 124/64 09/10/18 22:00 Pulse Ox 95 09/10/18 22:00 - Labs Result Diagrams: 09/11/18 06:45 09/11/18 06:45 Labs: Laboratory Results - last 24 hr 09/10/18 09/10/18 09/10/18 07:03 07:03 08:00 WBC 5.6 RBC 3.40 L Hgb 10.6 L Hct 32.9 L MCV 96.8 D MCH 31.2 MCHC 32.2 RDW 12.5 Plt Count 157 MPV 11.3 H Gran % 67.3 Lymph % (Auto) 18.7 L [place] % (Auto) 9.7 H Eos % (Auto) 4.1 Baso % (Auto) 0.2 Gran # 3.75 Lymph # (Auto) 1.0 L [place] # (Auto) 0.5 Eos # (Auto) 0.2 Baso # (Auto) 0.01 Sodium 133 Potassium 4.5 Chloride 95 L Carbon Dioxide 34 H Anion Gap 8 L BUN 22 H Creatinine 0.7 Est GFR ( Amer) > 60 Est GFR (Non-Af Amer) > 60 POC Glucose (mg/dL) Random Glucose 109 Calcium 9.5 Total Bilirubin 0.6 AST 21 ALT 26 Alkaline Phosphatase 71 Troponin I NT-Pro-B Natriuret Pep Total Protein 6.2 Albumin 3.6 Globulin 2.6 Albumin/Globulin Ratio 1.4 Lipase 36 Procalcitonin TSH 3rd Generation Urine Color Yellow Urine Appearance Clear Urine pH 6.5 Ur Specific Winn 1.015 Urine Protein Negative Urine Glucose (UA) Negative Urine Ketones Negative Urine Blood Negative Urine Nitrate Negative Urine Bilirubin Negative Urine Urobilinogen 1.0 H Ur Leukocyte Esterase Negative Influenza Typ A,B (EIA) 09/10/18 09/10/18 09/10/18 11:00 11:00 11:00 WBC RBC Hgb Hct MCV MCH MCHC RDW Plt Count MPV Gran % Lymph % (Auto) [place] % (Auto) Eos % (Auto) Baso % (Auto) Gran # Lymph # (Auto) [place] # (Auto) Eos # (Auto) Baso # (Auto) Sodium Potassium Chloride Carbon Dioxide Anion Gap BUN Creatinine Est GFR ( Amer) Est GFR (Non-Af Amer) POC Glucose (mg/dL) Random Glucose Calcium Total Bilirubin AST ALT Alkaline Phosphatase Troponin I < 0.01 NT-Pro-B Natriuret Pep 162 Total Protein Albumin Globulin Albumin/Globulin Ratio Lipase Procalcitonin 0.05 L TSH 3rd Generation 2.53 Urine Color Urine Appearance Urine pH Ur Specific Winn Urine Protein Urine Glucose (UA) Urine Ketones Urine Blood Urine Nitrate Urine Bilirubin Urine Urobilinogen Ur Leukocyte Esterase Influenza Typ A,B (EIA) 09/10/18 09/10/18 09/10/18 12:00 16:16 21:19 WBC RBC Hgb Hct MCV MCH MCHC RDW Plt Count MPV Gran % Lymph % (Auto) [place] % (Auto) Eos % (Auto) Baso % (Auto) Gran # Lymph # (Auto) [place] # (Auto) Eos # (Auto) Baso # (Auto) Sodium Potassium Chloride Carbon Dioxide Anion Gap BUN Creatinine Est GFR ( Amer) Est GFR (Non-Af Amer) POC Glucose (mg/dL) 113 H 102 Random Glucose Calcium Total Bilirubin AST ALT Alkaline Phosphatase Troponin I NT-Pro-B Natriuret Pep Total Protein Albumin Globulin Albumin/Globulin Ratio Lipase Procalcitonin TSH 3rd Generation Urine Color Urine Appearance Urine pH Ur Specific Winn Urine Protein Urine Glucose (UA) Urine Ketones Urine Blood Urine Nitrate Urine Bilirubin Urine Urobilinogen Ur Leukocyte Esterase Influenza Typ A,B (EIA) Negative for flu a/b 09/11/18 09/11/18 09/11/18 06:34 06:45 06:45 WBC 3.6 L D RBC 3.42 L Hgb 10.5 L Hct 33.3 L MCV 97.4 MCH 30.7 MCHC 31.5 RDW 12.7 Plt Count 139 MPV 11.0 Gran % 52.9 Lymph % (Auto) 27.1 [place] % (Auto) 11.9 H Eos % (Auto) 7.5 H Baso % (Auto) 0.6 Gran # 1.92 Lymph # (Auto) 1.0 L [place] # (Auto) 0.4 Eos # (Auto) 0.3 Baso # (Auto) 0.02 Sodium 135 Potassium 4.4 Chloride 100 Carbon Dioxide 32 Anion Gap 7 L BUN 14 Creatinine 0.7 Est GFR ( Amer) > 60 Est GFR (Non-Af Amer) > 60 POC Glucose (mg/dL) 120 H Random Glucose 97 Calcium 8.9 Total Bilirubin AST ALT Alkaline Phosphatase Troponin I NT-Pro-B Natriuret Pep Total Protein Albumin Globulin Albumin/Globulin Ratio Lipase Procalcitonin TSH 3rd Generation Urine Color Urine Appearance Urine pH Ur Specific Winn Urine Protein Urine Glucose (UA) Urine Ketones Urine Blood Urine Nitrate Urine Bilirubin Urine Urobilinogen Ur Leukocyte Esterase Influenza Typ A,B (EIA) Attending/Attestation - Attestation I have personally seen and examined this patient.: Yes I have fully participated in the care of the patient.: Yes I have reviewed all pertinent clinical information: Yes Notes (Text): 09/10/18 83 year old female with past medical history of COPD, diabetes, pulmonary hypertension, abdominal hernia and history of kyphoplasty who presents with complaint of back pain, abdominal pain, cough and difficulty ambulating. CT abd/pelvis showed constipation without fecal impaction or obstruction. CT spine showed new compression deformity L1 vertebral body, evidence of prior kyphoplasty, compression deformities L2 and L5 and profound osteopenia. Will start on ultracet, flexeril and lidoderm patch. PT evaluation requested. Will request for IR input in AM as well. Continue with colace and miralax for constipation. Can add dulcolax suppository. Surgery evaluation requested for abdominal hernia. Family is at bedside and questions were answered. Meme Keating MD Hospitalist.
[2018-09-10] MEDS: Lidocaine 5% Patch TD SCH (12:08)
[2018-09-10] MEDS: Enoxaparin 40 mg Syringe SC SCH (12:08)
[2018-09-10 12:41] LABS: B-TYPE NATRIURETIC PEPTIDE 162 pg/mL (0-450); TROPONIN I < 0.01 ng/mL
[2018-09-10] MEDS: Albuterol-Ipratrop 3 mg / 0.5 (3 ml) UD IH SCH ×2 (13:04→20:59)
[2018-09-10] MEDS: Arformoterol 15 mcg/2 ml Inh Sol IH SCH (13:06)
[2018-09-10] MEDS: POLYETHYLENE GLYCOL 3350 17 GM/Dose PACKET PO SCH (15:35)
--- NOTE | 2018-09-10 16:58 | CP.PCM.CON ---
<Cuate Martini - Last Filed: 09/11/18 08:06> History of Present Illness - History of Present Illness History of Present Illness: Surgery Consult Note- Dr. Ferrer Reason for consult: ventral hernias 83F pmhx significant for CAD, COPD, pulmonary HTN, compression fracture s/p kyphoplasty, recurrent non-obstructing ventral hernia x2 presents to [facility] w/ abdominal and back pain for approximately 2 weeks. During ED workup patient was found to have a new acute compression fracture of L1. Patient denies trauma or falling over the last 1 month. Patient was at [facility] for rehab and strength training. Of note Patient states she has chronic constipation. She is able to have bowel movements once per day, however has not had a BM in 3 days. still actively passing flatus. At home patient takes Miralax, prune juice and occasionally colace. Surgery was consulted for ventral hernia. Patient is aware of ventral hernias and previous visit was given the option for surgical repair. Currently Ventral hernia left of the umbilicus, palpable defect approx 3x3cm. incisional hernia, defect palpable 2x2cm. No bowel contents, everything is reducible. No skin changes at the site of hernias PMH: CAD s/p stents x2, HTN, HLD, Moderate tricuspid regurgitation, LVEF 55% (Echo 09/23/17), [id number], Emphysema, Pulmonary HTN (RVSP 65), GERD, Anemia of chronic disease and B12 deficiency, Osteoporosis, Claustrophobia PSH:cholecystectomy, appendectomy, partial small bowel resection, cardiac cath with 2 stents, ovarian cyst removal, inguinal hernia repair ALL: morphine, codeine, dilaudid, -myocins SocialHx: former smoker quit 10 years ago but smoked for 1.5 packs for 50+ years, denies EtOH/illicit drugs use, came from jail FH: non-contributory Review of Systems - Review of Systems All systems: reviewed and no additional remarkable complaints except - Constitutional Constitutional: As Per HPI Past Patient History - Infectious Disease Hx of Infectious Diseases: None - Tetanus Immunizations Tetanus Immunization: Unknown - Past Medical History & Family History Past Medical History?: Yes - Past Social History Smoking Status: Former Smoker - CARDIAC Hx Congestive Heart Failure: Yes Hx Hypercholesterolemia: Yes - PULMONARY Hx Chronic Obstructive Pulmonary Disease (COPD): Yes - NEUROLOGICAL Hx Neurological Disorder: No - HEENT Other/Comment: glasses - RENAL Hx Chronic Kidney Disease: No - ENDOCRINE/METABOLIC Hx Endocrine Disorders: No Other/Comment: Diabetes due to med (Steroid) - HEMATOLOGICAL/ONCOLOGICAL Hx Blood Disorders: No - INTEGUMENTARY Hx Dermatological Problems: No - MUSCULOSKELETAL/RHEUMATOLOGICAL Hx Back Pain: Yes Hx Falls: Yes Hx Unsteady Gait: Yes - GASTROINTESTINAL Hx Gastroesophageal Reflux: Yes - GENITOURINARY/GYNECOLOGICAL Hx Incontinence: Yes Hx Urinary Tract Infection: Yes - PSYCHIATRIC Hx Anxiety: Yes - SURGICAL HISTORY Hx Appendectomy: Yes Hx Cardiac Catheterization: Yes Hx Cholecystectomy: Yes Hx Coronary Stent: Yes - ANESTHESIA Hx Anesthesia: Yes Hx Anesthesia Reactions: No Hx Malignant Hyperthermia: No Meds Allergies/Adverse Reactions: Allergies Allergy/AdvReac Type Severity Reaction Status Date / Time morphine Allergy VOMITING Verified 04/20/18 12:01 codeine AdvReac VOMITING Verified 04/20/18 12:01 hydromorphone HCl AdvReac VOMITING Verified 04/20/18 12:01 [From Dilaudid] MYOCINS AdvReac VOMITING Uncoded 04/20/18 12:01 - Medications Medications: Current Medications Albuterol/Ipratropium (Duoneb 3 Mg/0.5 Mg (3 Ml) Ud) 3 ml IH [id number] [facility] Last Admin: 09/10/18 13:04 Dose: Not Given Albuterol/Ipratropium (Duoneb 3 Mg/0.5 Mg (3 Ml) Ud) 3 ml IH Q2H PRN PRN Reason: Shortness of Breath Alprazolam (Xanax) 0.25 mg PO BID PRN; Protocol PRN Reason: Anxiety Stop: 09/17/18 18:01 Arformoterol Tartrate (Brovana) 15 mcg IH [id number] [facility] Last Admin: 09/10/18 13:06 Dose: 15 mcg Aspirin (Aspirin Chewable) 81 mg PO DAILY [facility] Atorvastatin Calcium (Lipitor) 10 mg PO DIN [facility] Cyclobenzaprine HCl (Flexeril) 5 mg PO TID [facility] Last Admin: 09/10/18 16:02 Dose: Not Given Docusate Sodium (Colace) 100 mg PO Q8 [facility] Last Admin: 09/10/18 15:35 Dose: Not Given Enoxaparin Sodium (Lovenox) 40 mg SC DAILY [facility]; Protocol Last Admin: 09/10/18 12:08 Dose: 40 mg Ferrous Sulfate (Feosol) 324 mg PO DAILY [facility] Sodium Chloride (Sodium Chloride 0.9%) 1,000 mls @ 50 mls/hr IV .Q20H STA Stop: 09/11/18 03:24 Last Admin: 09/10/18 12:07 Dose: 50 mls/hr Lidocaine (Lidoderm) 1 ea TD DAILY [facility] Last Admin: 09/10/18 12:08 Dose: 1 ea Meclizine HCl (Antivert) 12.5 mg PO BID [facility] Ondansetron HCl (Zofran Inj) 4 mg IVP Q6H PRN PRN Reason: Nausea/Vomiting Polyethylene Glycol (Miralax) 17 gm PO DAILY [facility] Last Admin: 09/10/18 15:35 Dose: Not Given Prednisone (Prednisone Oral Soln) 2.5 mg PO DAILY [facility] Sildenafil Citrate (Revatio) 20 mg PO BID [facility] Tramadol/Acetaminophen (Ultracet 37.5/325 Mg) 1 tab PO Q8 PRN PRN Reason: Pain, moderate (4-7) Physical Exam - Constitutional Appears: Non-toxic, No Acute Distress - Head Exam Head Exam: ATRAUMATIC - Eye Exam Eye Exam: EOMI. absent: Scleral icterus - ENT Exam ENT Exam: Mucous Membranes Moist - Respiratory Exam Respiratory Exam: absent: Accessory Muscle Use, Respiratory Distress - GI/Abdominal Exam GI & Abdominal Exam: Hernia (x2 ventral hernias), Soft. absent: Distended, Firm, Guarding, Rigid, Tenderness Additional comments: midline incision well healed palpable 2 hernia defects. Midline incision below umbilicus measuriing 2x2 cm. Left of the umbilicus measuring 3x3cm. no bowel contents in hernia defect - Extremities Exam Extremities exam: Negative for: calf tenderness - Neurological Exam Neurological exam: Alert, Oriented x3 - Psychiatric Exam Psychiatric exam: Normal Affect - Skin Skin Exam: Intact, Warm Results - Vital Signs Recent Vital Signs: Last Vital Signs Temp 97.2 F L 09/10/18 14:00 Pulse 80 09/10/18 14:00 Resp 16 09/10/18 14:12 BP 109/60 09/10/18 14:00 Pulse Ox 100 09/10/18 14:00 - Labs Result Diagrams: 09/11/18 06:45 09/11/18 06:45 Labs: Laboratory Results - last 24 hr 09/10/18 09/10/18 09/10/18 07:03 07:03 08:00 WBC 5.6 RBC 3.40 L Hgb 10.6 L Hct 32.9 L MCV 96.8 D MCH 31.2 MCHC 32.2 RDW 12.5 Plt Count 157 MPV 11.3 H Gran % 67.3 Lymph % (Auto) 18.7 L [place] % (Auto) 9.7 H Eos % (Auto) 4.1 Baso % (Auto) 0.2 Gran # 3.75 Lymph # (Auto) 1.0 L [place] # (Auto) 0.5 Eos # (Auto) 0.2 Baso # (Auto) 0.01 Sodium 133 Potassium 4.5 Chloride 95 L Carbon Dioxide 34 H Anion Gap 8 L BUN 22 H Creatinine 0.7 Est GFR ( Amer) > 60 Est GFR (Non-Af Amer) > 60 POC Glucose (mg/dL) Random Glucose 109 Calcium 9.5 Total Bilirubin 0.6 AST 21 ALT 26 Alkaline Phosphatase 71 Troponin I NT-Pro-B Natriuret Pep Total Protein 6.2 Albumin 3.6 Globulin 2.6 Albumin/Globulin Ratio 1.4 Lipase 36 TSH 3rd Generation Urine Color Yellow Urine Appearance Clear Urine pH 6.5 Ur Specific [place] 1.015 Urine Protein Negative Urine Glucose (UA) Negative Urine Ketones Negative Urine Blood Negative Urine Nitrate Negative Urine Bilirubin Negative Urine Urobilinogen 1.0 H Ur Leukocyte Esterase Negative Influenza Typ A,B (EIA) 09/10/18 09/10/18 09/10/18 11:00 11:00 12:00 WBC RBC Hgb Hct MCV MCH MCHC RDW Plt Count MPV Gran % Lymph % (Auto) [place] % (Auto) Eos % (Auto) Baso % (Auto) Gran # Lymph # (Auto) [place] # (Auto) Eos # (Auto) Baso # (Auto) Sodium Potassium Chloride Carbon Dioxide Anion Gap BUN Creatinine Est GFR ( Amer) Est GFR (Non-Af Amer) POC Glucose (mg/dL) Random Glucose Calcium Total Bilirubin AST ALT Alkaline Phosphatase Troponin I < 0.01 NT-Pro-B Natriuret Pep 162 Total Protein Albumin Globulin Albumin/Globulin Ratio Lipase TSH 3rd Generation 2.53 Urine Color Urine Appearance Urine pH Ur Specific [place] Urine Protein Urine Glucose (UA) Urine Ketones Urine Blood Urine Nitrate Urine Bilirubin Urine Urobilinogen Ur Leukocyte Esterase Influenza Typ A,B (EIA) Negative for flu a/b 09/10/18 16:16 WBC RBC Hgb Hct MCV MCH MCHC RDW Plt Count MPV Gran % Lymph % (Auto) [place] % (Auto) Eos % (Auto) Baso % (Auto) Gran # Lymph # (Auto) [place] # (Auto) Eos # (Auto) Baso # (Auto) Sodium Potassium Chloride Carbon Dioxide Anion Gap BUN Creatinine Est GFR ( Amer) Est GFR (Non-Af Amer) POC Glucose (mg/dL) 113 H Random Glucose Calcium Total Bilirubin AST ALT Alkaline Phosphatase Troponin I NT-Pro-B Natriuret Pep Total Protein Albumin Globulin Albumin/Globulin Ratio Lipase TSH 3rd Generation Urine Color Urine Appearance Urine pH Ur Specific [place] Urine Protein Urine Glucose (UA) Urine Ketones Urine Blood Urine Nitrate Urine Bilirubin Urine Urobilinogen Ur Leukocyte Esterase Influenza Typ A,B (EIA) Assessment & Plan - Assessment and Plan (Free Text) Assessment: 83F w/ recurrent reducible ventral hernia x 2 Plan: - conservative management at this time w/ abdominal binder - offered surgical intervention electively for hernia repair however has denied intervention at this time - continued medical management for primary medical conditions - further recs per Dr. Ferrer surgical attending [facility] PGY2 <Lauro Ferrer - Last Filed: 09/22/18 10:37> Meds - Medications Medications: Current Medications Albuterol/Ipratropium (Duoneb 3 Mg/0.5 Mg (3 Ml) Ud) 3 ml IH [id number] PRN PRN Reason: Shortness of Breath Last Admin: 09/17/18 07:33 Dose: 3 ml Arformoterol Tartrate (Brovana) 15 mcg IH [id number] [facility] Last Admin: 09/22/18 07:30 Dose: Not Given Aspirin (Aspirin Chewable) 81 mg PO DAILY [facility] Last Admin: 09/21/18 09:52 Dose: 81 mg Atorvastatin Calcium (Lipitor) 10 mg PO DIN [facility] Last Admin: 09/21/18 17:47 Dose: 10 mg Budesonide (Pulmicort Respules) 0.5 mg IH [id number] [facility] Last Admin: 09/22/18 07:30 Dose: Not Given Calcium/Vitamin D (Oscal-D 250 Mg-125 Units Tab) 1 tab PO DAILY [facility] Last Admin: 09/21/18 09:52 Dose: 1 tab Docusate Sodium (Colace) 100 mg PO Q8 [facility] Last Admin: 09/22/18 05:36 Dose: Not Given Enoxaparin Sodium (Lovenox) 40 mg SC DAILY [facility]; Protocol Last Admin: 09/20/18 09:12 Dose: 40 mg Ferrous Sulfate (Feosol) 324 mg PO DAILY [facility] Last Admin: 09/21/18 09:52 Dose: 324 mg Home Med (Home Med) 1 unit PO DAILY [facility] Last Admin: 09/21/18 09:53 Dose: 1 unit Lidocaine (Lidoderm) 1 ea TD DAILY [facility] Last Admin: 09/21/18 09:54 Dose: 1 ea Ondansetron HCl (Zofran Inj) 4 mg IVP Q6H PRN PRN Reason: Nausea/Vomiting Oxycodone/Acetaminophen (Percocet 5/325 Mg Tab) 1 tab PO Q6H PRN PRN Reason: Pain, severe (8-10) Stop: 09/22/18 17:31 Last Admin: 09/22/18 05:34 Dose: 1 tab Polyethylene Glycol (Miralax) 17 gm PO DAILY [facility] Last Admin: 09/21/18 09:52 Dose: 17 gm Sildenafil Citrate (Revatio) 20 mg PO Q12H [facility] Last Admin: 09/21/18 21:36 Dose: 20 mg Simethicone (Mylicon Liq) 40 mg PO QID PRN PRN Reason: GI distress Last Admin: 09/21/18 15:16 Dose: 40 mg Results - Vital Signs Recent Vital Signs: Last Vital Signs Temp 97.9 F 09/22/18 09:10 Pulse 90 09/22/18 09:10 Resp 19 09/22/18 09:10 BP 150/60 09/22/18 09:10 Pulse Ox 100 09/22/18 09:10 - Labs Result Diagrams: 09/21/18 07:35 09/21/18 07:35 Assessment & Plan - Assessment and Plan (Free Text) Plan: Dx: Ventral Hernia([id number]) New Lumbar compression Fracture-Very Symptomatic Jace No surgery now-Pt agrees This consult done under my direct supervision Tyrel Ferrer MD FACS
[2018-09-10] MEDS ORDERED: Sildenafil 20 MG TAB PO SCH (18:00)
[2018-09-10] MEDS ORDERED: Arformoterol 15 mcg/2 ml Inh Sol IH SCH (18:00)
[2018-09-10] MEDS: Sildenafil 20 MG TAB PO SCH (18:05)
[2018-09-10] MEDS: TraMADol/Apap 37.5/325 mg Tab PO PRN (20:29)
[2018-09-10] MEDS: DEXILANT 60 MG PO SCH (22:18)
[2018-09-11] MEDS: Albuterol-Ipratrop 3 mg / 0.5 (3 ml) UD IH SCH ×3 (01:54→14:00)
[2018-09-11] MEDS: TraMADol/Apap 37.5/325 mg Tab PO PRN ×2 (05:40→17:41)
--- NOTE | 2018-09-11 06:57 | CP.PCM.PN ---
<Bouchra Virk L - Last Filed: 09/11/18 16:20> Subjective - Date & Time of Evaluation Date of Evaluation: 09/11/18 Time of Evaluation: 06:56 - Subjective Subjective: Resident Progress Note for Hospitalist Service Patient examined at bedside. No acute events overnight. Patient reports resolution of her abdominal pain after having a bowel movement. Patient states her back pain is somewhat improved as she was able to sleep well overnight. Denies fevers, chills, chest pain, shortness of breath, dysuria. Objective - Vital Signs/Intake and Output Vital Signs (last 24 hours): Temp Pulse Resp BP Pulse Ox 98.1 F 84 18 124/64 95 09/10/18 22:00 09/10/18 22:00 09/10/18 22:00 09/10/18 22:00 09/10/18 22:00 - Medications Medications: Current Medications Albuterol/Ipratropium (Duoneb 3 Mg/0.5 Mg (3 Ml) Ud) 3 ml IH [id number] [facility] Last Admin: 09/11/18 01:54 Dose: Not Given Albuterol/Ipratropium (Duoneb 3 Mg/0.5 Mg (3 Ml) Ud) 3 ml IH Q2H PRN PRN Reason: Shortness of Breath Alprazolam (Xanax) 0.25 mg PO BID PRN; Protocol PRN Reason: Anxiety Stop: 09/17/18 18:01 Last Admin: 09/10/18 22:18 Dose: 0.25 mg Arformoterol Tartrate (Brovana) 15 mcg IH [id number] [facility] Last Admin: 09/10/18 13:06 Dose: 15 mcg Aspirin (Aspirin Chewable) 81 mg PO DAILY [facility] Atorvastatin Calcium (Lipitor) 10 mg PO DIN [facility] Last Admin: 09/10/18 18:06 Dose: 10 mg Budesonide (Pulmicort Respules) 0.5 mg IH [id number] [facility] Cyclobenzaprine HCl (Flexeril) 5 mg PO TID [facility] Last Admin: 09/10/18 18:03 Dose: Not Given Docusate Sodium (Colace) 100 mg PO Q8 [facility] Last Admin: 09/11/18 05:40 Dose: 100 mg Enoxaparin Sodium (Lovenox) 40 mg SC DAILY [facility]; Protocol Last Admin: 09/10/18 12:08 Dose: 40 mg Ferrous Sulfate (Feosol) 324 mg PO DAILY [facility] Home Med (Home Med) 1 unit PO DAILY [facility] Last Admin: 09/10/18 22:18 Dose: 1 unit Lidocaine (Lidoderm) 1 ea TD DAILY [facility] Last Admin: 09/10/18 12:08 Dose: 1 ea Meclizine HCl (Antivert) 12.5 mg PO BID [facility] Last Admin: 09/10/18 18:05 Dose: 12.5 mg Methylprednisolone (Solu-Medrol) 30 mg IVP Q12 [facility] Ondansetron HCl (Zofran Inj) 4 mg IVP Q6H PRN PRN Reason: Nausea/Vomiting Polyethylene Glycol (Miralax) 17 gm PO DAILY [facility] Last Admin: 09/10/18 15:35 Dose: Not Given Sildenafil Citrate (Revatio) 20 mg PO BID [facility] Last Admin: 09/10/18 18:05 Dose: 20 mg Tramadol/Acetaminophen (Ultracet 37.5/325 Mg) 1 tab PO Q8 PRN PRN Reason: Pain, moderate (4-7) Last Admin: 09/11/18 05:40 Dose: 1 tab - Labs Labs: 09/10/18 07:03 09/10/18 07:03 - Additional Findings Additional findings: - Constitutional Appears: Non-toxic, No Acute Distress - Head Exam Head Exam: ATRAUMATIC, NORMOCEPHALIC - Eye Exam Eye Exam: EOMI, Normal appearance - Neck Exam Neck exam: Positive for: Normal Inspection. Negative for: Lymphadenopathy, Tenderness, Thyromegaly - Respiratory Exam Respiratory Exam: Clear to Auscultation Bilateral, Wheezes, NORMAL BREATHING PATTERN. absent: Accessory Muscle Use, Rales, Rhonchi, Respiratory Distress - Cardiovascular Exam Cardiovascular Exam: REGULAR RHYTHM, +S1. absent: Gallop, Systolic Murmur - GI/Abdominal Exam GI & Abdominal Exam: Soft. absent: Distended, Rebound, Tenderness Additional comments: ventral hernia midline surgical scar tender in left and right lower quadrants - Extremities Exam Extremities exam: Positive for: normal capillary refill, pedal edema, pedal pulses present - Back Exam Back exam: muscle spasm, vertebral tenderness (mid to low thoracic). absent: rash noted - Neurological Exam Neurological exam: Alert, CN II-XII Intact, Oriented x3 - Psychiatric Exam Psychiatric exam: Anxious, Normal Affect - Skin Skin Exam: Dry, Intact, Normal Color Assessment and Plan - Assessment and Plan (Free Text) Assessment: Patient is an 83 year old female with past medical history of CHF, T2DM, HLD, COPD on home O2, pulmonary HTN, urinary incontinence presenting with back pain, abdominal pain and cough. Plan: Back pain - Abd/pelvis CT shows new compression deformity L1 vertebral body, evidence of prior kyphoplasty L1, compression deformities L2 and L5, profound osteopenia - no benefit for kyphoplasty as per IR recs - Flexiril 5 mg PO TID - Lidoderm patch - Tramadol - PT/OT eval Abdominal pain - likely due to opioid induced constipation - patient also has ventral hernia; refused surgical intervention - CT shows constipation without fecal impaction or obstruction - Dulcolax suppository, home colace, Miralax Cough - failed outpatient therapy - afebrile, no leukocytosis - CXR shows no active disease - CT shows severe centrilobular emphysematous change - followup blood and urine cultures, procal - flu negative - Pulmonology consulted. Appreciate recs. - Lorelei Borja - solu-medrol 30 mg IV Q12 Pulmonary HTN - home Revatio HLD - home Lipitor PPX - Lovenox 40 mg SC daily - home Dexilant Case discussed with Dr. Zuri Virk PGY-1 <Meme Keating - Last Filed: 09/11/18 18:01> Objective - Vital Signs/Intake and Output Vital Signs (last 24 hours): Temp Pulse Resp BP Pulse Ox 98.5 F 89 20 131/69 95 09/11/18 14:00 09/11/18 14:00 09/11/18 14:00 09/11/18 14:00 09/11/18 14:00 - Medications Medications: Current Medications Albuterol/Ipratropium (Duoneb 3 Mg/0.5 Mg (3 Ml) Ud) 3 ml IH [id number] [facility] Last Admin: 09/11/18 07:52 Dose: Not Given Albuterol/Ipratropium (Duoneb 3 Mg/0.5 Mg (3 Ml) Ud) 3 ml IH Q2H PRN PRN Reason: Shortness of Breath Alprazolam (Xanax) 0.25 mg PO BID PRN; Protocol PRN Reason: Anxiety Stop: 09/17/18 18:01 Last Admin: 09/10/18 22:18 Dose: 0.25 mg Arformoterol Tartrate (Brovana) 15 mcg IH [id number] [facility] Last Admin: 09/11/18 07:50 Dose: 15 mcg Aspirin (Aspirin Chewable) 81 mg PO DAILY [facility] Last Admin: 09/11/18 10:20 Dose: 81 mg Atorvastatin Calcium (Lipitor) 10 mg PO DIN [facility] Last Admin: 09/11/18 17:43 Dose: 10 mg Budesonide (Pulmicort Respules) 0.5 mg IH [id number] [facility] Last Admin: 09/11/18 07:50 Dose: 0.5 mg Cyclobenzaprine HCl (Flexeril) 5 mg PO TID [facility] Last Admin: 09/11/18 17:41 Dose: 5 mg Docusate Sodium (Colace) 100 mg PO Q8 [facility] Last Admin: 09/11/18 13:38 Dose: 100 mg Enoxaparin Sodium (Lovenox) 40 mg SC DAILY [facility]; Protocol Last Admin: 09/11/18 10:20 Dose: 40 mg Ferrous Sulfate (Feosol) 324 mg PO DAILY [facility] Last Admin: 09/11/18 10:20 Dose: 324 mg Home Med (Home Med) 1 unit PO DAILY [facility] Last Admin: 09/11/18 10:23 Dose: 1 unit Lidocaine (Lidoderm) 1 ea TD DAILY [facility] Last Admin: 09/11/18 10:16 Dose: 1 ea Meclizine HCl (Antivert) 12.5 mg PO BID [facility] Last Admin: 09/11/18 17:42 Dose: 12.5 mg Methylprednisolone (Solu-Medrol) 30 mg IVP Q12 [facility] Last Admin: 09/11/18 10:19 Dose: 30 mg Ondansetron HCl (Zofran Inj) 4 mg IVP Q6H PRN PRN Reason: Nausea/Vomiting Polyethylene Glycol (Miralax) 17 gm PO DAILY [facility] Last Admin: 09/11/18 10:19 Dose: 17 gm Sildenafil Citrate (Revatio) 20 mg PO BID [facility] Last Admin: 09/11/18 17:42 Dose: 20 mg Tramadol/Acetaminophen (Ultracet 37.5/325 Mg) 1 tab PO Q8 PRN PRN Reason: Pain, moderate (4-7) Last Admin: 09/11/18 17:41 Dose: 1 tab - Labs Labs: 09/11/18 06:45 09/11/18 06:45 Attending/Attestation - Attestation I have personally seen and examined this patient.: Yes I have fully participated in the care of the patient.: Yes I have reviewed all pertinent clinical information, including history, physical exam and plan: Yes Notes (Text): 09/11/18 17:58 83 year old female with past medical history of COPD, diabetes, pulmonary hypertension, abdominal hernia and history of kyphoplasty who presented with complaint of back pain, abdominal pain, cough and difficulty ambulating. CT abd/pelvis showed constipation without fecal impaction or obstruction. CT spine showed new compression deformity L1 vertebral body, evidence of prior kyphoplasty, compression deformities L2 and L5 and profound osteopenia. IR input was appreciated; no plan for kyphoplasty at this time. She is currently on ultracet, flexeril and lidoderm patch. PT evaluation was appreciated; recommended [facility]. Constipation has improved with colace, miralax and dulcolax suppository. Surgery evaluation was appreciated for abdominal hernia; no plan for intervention at this time. Pulmonary is following for COPD and started iv steroids. Patient reports cough and dyspnea has improved. Meme Keating MD Hospitalist.
[2018-09-11 07:22] LABS: BASO # 0.02 K/mm3 (0.0-2.0); BASO % 0.6 % (0.0-3.0); EOS # 0.3 (0.0-0.7); EOS % 7.5 % (1.5-5.0); GRAN # 1.92 (1.4-6.5); GRAN % 52.9 % (50.0-68.0); HEMOGLOBIN 10.5 g/dL (12.0-16.0); LYMPH % 27.1 % (22.0-35.0); MEAN CELL VOLUME 97.4 fl (80.0-105.0); MEAN CORPUSCULAR HEMOGLOBIN 30.7 pg (25.0-35.0); MEAN CORPUSCULAR HGB CONC 31.5 g/dl (31.0-37.0); MONO # 0.4 (0.1-0.6); MONO % 11.9 % (1.0-6.0); RBC 3.42 10^6/uL (3.5-6.1); RED CELL DISTRIBUTION WIDTH 12.7 % (11.5-14.5); WHITE BLOOD COUNT 3.6 10^3/uL (4.5-11.0)
[2018-09-11] MEDS ORDERED: Pantoprazole 40 mg EC Tab PO SCH (07:30)
[2018-09-11 07:31] LABS: BLOOD UREA NITROGEN 14 mg/dL (7-21); CALCIUM 8.9 mg/dL (8.4-10.5); GFR NON-AFRICAN AMERICAN > 60
[2018-09-11] MEDS: Budesonide 0.5 mg/2 ml Inhal Susp UD IH SCH (07:50)
[2018-09-11] MEDS: Arformoterol 15 mcg/2 ml Inh Sol IH SCH (07:50)
--- NOTE | 2018-09-11 09:05 | CARD ---
APPROVED REPORT Date of service: 09/10/2018 EKG Measurement Heart [id number] <Conclusion> Normal sinus rhythm RVCD Artifact present Probably no change
[2018-09-11] MEDS ORDERED: Non Formulary Medication (Dexlansoprazole [Dexilant] 60 MG) PO SCH (10:00)
[2018-09-11] MEDS ORDERED: predniSONE 5 mg/5 mL Oral Soln UD PO SCH (10:00)
[2018-09-11] MEDS: Lidocaine 5% Patch TD SCH (10:16)
[2018-09-11] MEDS: POLYETHYLENE GLYCOL 3350 17 GM/Dose PACKET PO SCH (10:19)
[2018-09-11] MEDS: MethylPREDNISolone 40 mg Vial IVP SCH ×2 (10:19→21:31)
[2018-09-11] MEDS: Enoxaparin 40 mg Syringe SC SCH (10:20)
[2018-09-11] MEDS: Sildenafil 20 MG TAB PO SCH ×2 (10:20→17:42)
[2018-09-11] MEDS: DEXILANT 60 MG PO SCH (10:23)
--- NOTE | 2018-09-11 10:29 | CON ---
DATE: 09/11/2018 PULMONARY CONSULTATION REASON FOR PULMONARY CONSULTATION: Chronic obstructive pulmonary disease. REFERRING PHYSICIAN: Dr. Reed. HISTORY OF PRESENT ILLNESS: The patient is a chronically ill 83-year-old female, with past medical history significant for end-stage chronic obstructive pulmonary disease, on home oxygen, coronary artery disease, status post multiple cardiac stents, pulmonary hypertension, diabetes mellitus, hyperlipidemia, who presents to [facility] with main complaint of increasing back pain for the past 2 weeks. In the emergency room, the patient was diagnosed with an acute L1 compression fracture. She was thus admitted for additional evaluation. The patient is not short of breath at rest. She does have chronic dyspnea on exertion. She also has a chronic cough with occasional sputum production - which the patient states has been worse over the past week. There is no history of chest pain, coughing up of blood, or chest pain - made worse with deep respirations. There is no history of temperatures, chills or infectious exposure. There is no history of night sweats, weight loss or appetite change prior to the above events. No history of calf pains. No history of syncope or diaphoresis. No history of recent travel or trauma. REVIEW OF SYSTEMS: The patient does state to lower abdominal pain and problems with urination. No nausea, vomiting or diarrhea. No acute neurologic complaints. Rest of the review of the review of systems is negative. ALLERGIES: ALLERGIES ARE TO MORPHINE, CODEINE, DILAUDID, AND ERYTHROMYCIN. SOCIAL HISTORY: Positive for extensive tobacco usage. No alcohol. FAMILY HISTORY: No inheritable diseases. MEDICATIONS: Home medications include Antivert, prednisone, Xanax, tramadol, Dexilant, aspirin, Revatio, Feosol, atorvastatin, calcium and Brovana. PHYSICAL EXAMINATION: GENERAL: The patient is not short of breath at rest. She is not using accessory muscles for breathing. VITAL SIGNS: Temperature is 98.1, pulse 84, respirations 18, blood pressure 124/64. Oxygen saturation on nasal cannula is 95-100%. HEENT: Normocephalic, atraumatic. NECK: No JVD. CARDIOVASCULAR: Systolic ejection murmur at the lower left sternal border. No S3 gallop. LUNGS: Decreased breath sounds at the bases. Mild bilateral rhonchi. A few wheezes are also appreciated. EXTREMITIES: Mild edema. No cyanosis. No clubbing. Calves are nontender to palpation. GASTROINTESTINAL: Abdomen is soft, nontender and nondistended. Bowel sounds are positive. SKIN: No acute rash. NEUROLOGIC: Exam limited at the present time. PERTINENT LABORATORY DATA: Chest x-ray was done yesterday and reviewed. There is no active pulmonary disease noted. Abdominal and pelvic CT scan was also done. There is severe emphysema noted in the lower thorax. There is a new compression deformity noted at the L1 vertebrae. There are no other significant acute abnormalities. CBC: White count 5.6K, hemoglobin 10.6, hematocrit 32.9, platelets of 157,000. Complete metabolic profile: Chloride 95, carbon oxide 34, BUN 22. Rest of the metabolic profile is within normal limits. Procalcitonin was also done yesterday - negative - 0.05. IMPRESSION: 1. Back pain, compression fracture L1 vertebrae. 2. Mild acute bronchitis. 3. End-stage chronic obstructive pulmonary disease. 4. Pulmonary hypertension. 5. Mild anemia. 6. Coronary artery disease. PLAN: I did discuss the case with the nurse at length. I have also reviewed the chart at length, and discussed the case with the patient at length. The patient presents to [facility] with main complaint of increasing back pain for the past 2 weeks. As above, abdominal and pelvic CAT scan did reveal an acute compression fracture of the L1 vertebrae. The patient was thus admitted for additional evaluation. In addition to the above, the patient does complain of increasing pulmonary symptoms for the past 1 week. I did review the chest x-ray as above. There is no acute pulmonary disease noted. On physical exam, the patient is in mild bronchospasm. However, there is no significant alveolar-arterial gradient. I will continue the current nebulizer treatments and add inhaled Pulmicort. However, I will discontinue the low-dose prednisone and start low-dose intravenous steroids this morning. The patient also remains on Revatio - for her pulmonary hypertension. The patient does state to feeling better this morning, and is clinically improved. Unfortunately, the overall status/prognosis for this patient is poor. Additional pulmonary intervention will be based on the clinical status of the patient. I will discuss the above with the attending physician. Thank you very much for this pulmonary consultation. Evgeny Briggs MD [facility] # [id number]
--- NOTE | 2018-09-11 14:05 | PCM.IRP ---
History of Present Illness - History of Present Illness History of Present Illness: IR requested to evaluate compression deformity L1. Pt with previous kyphoplasty T12. Compression deformity L1 is <30 %. Also, compression deformity has been present on CT of 02/25/2018. There is no benefit for kyphoplasty in chronic compression deformity. Objective - Vital Signs/Intake and Output Vital Signs (last 24 hours): Vital Signs - 24 hr 09/10/18 09/10/18 09/11/18 14:12 22:00 07:00 Temperature 98.1 F 97.5 F L Pulse Rate 84 72 Respiratory 16 18 18 Rate Blood Pressure 124/64 141/65 O2 Sat by Pulse 95 98 Oximetry Intake and Output (last 12 hours): Intake & Output 09/10/18 09/11/18 09/11/18 18:59 06:59 18:59 Other: Voiding Method Toilet - Medications Medications: Current Medications Albuterol/Ipratropium (Duoneb 3 Mg/0.5 Mg (3 Ml) Ud) 3 ml IH [id number] [facility] Last Admin: 09/11/18 07:52 Dose: Not Given Albuterol/Ipratropium (Duoneb 3 Mg/0.5 Mg (3 Ml) Ud) 3 ml IH Q2H PRN PRN Reason: Shortness of Breath Alprazolam (Xanax) 0.25 mg PO BID PRN; Protocol PRN Reason: Anxiety Stop: 09/17/18 18:01 Last Admin: 09/10/18 22:18 Dose: 0.25 mg Arformoterol Tartrate (Brovana) 15 mcg IH [id number] [facility] Last Admin: 09/11/18 07:50 Dose: 15 mcg Aspirin (Aspirin Chewable) 81 mg PO DAILY [facility] Last Admin: 09/11/18 10:20 Dose: 81 mg Atorvastatin Calcium (Lipitor) 10 mg PO DIN [facility] Last Admin: 09/10/18 18:06 Dose: 10 mg Budesonide (Pulmicort Respules) 0.5 mg IH [id number] [facility] Last Admin: 09/11/18 07:50 Dose: 0.5 mg Cyclobenzaprine HCl (Flexeril) 5 mg PO TID [facility] Last Admin: 09/11/18 13:38 Dose: 5 mg Docusate Sodium (Colace) 100 mg PO Q8 [facility] Last Admin: 09/11/18 13:38 Dose: 100 mg Enoxaparin Sodium (Lovenox) 40 mg SC DAILY [facility]; Protocol Last Admin: 09/11/18 10:20 Dose: 40 mg Ferrous Sulfate (Feosol) 324 mg PO DAILY [facility] Last Admin: 09/11/18 10:20 Dose: 324 mg Home Med (Home Med) 1 unit PO DAILY [facility] Last Admin: 09/11/18 10:23 Dose: 1 unit Lidocaine (Lidoderm) 1 ea TD DAILY [facility] Last Admin: 09/11/18 10:16 Dose: 1 ea Meclizine HCl (Antivert) 12.5 mg PO BID [facility] Last Admin: 09/11/18 10:20 Dose: 12.5 mg Methylprednisolone (Solu-Medrol) 30 mg IVP Q12 [facility] Last Admin: 09/11/18 10:19 Dose: 30 mg Ondansetron HCl (Zofran Inj) 4 mg IVP Q6H PRN PRN Reason: Nausea/Vomiting Polyethylene Glycol (Miralax) 17 gm PO DAILY [facility] Last Admin: 09/11/18 10:19 Dose: 17 gm Sildenafil Citrate (Revatio) 20 mg PO BID [facility] Last Admin: 09/11/18 10:20 Dose: 20 mg Tramadol/Acetaminophen (Ultracet 37.5/325 Mg) 1 tab PO Q8 PRN PRN Reason: Pain, moderate (4-7) Last Admin: 09/11/18 05:40 Dose: 1 tab - Labs Labs (last 24 hours): Laboratory Results - last 24 hr 09/10/18 09/10/18 09/10/18 11:00 16:16 21:19 WBC RBC Hgb Hct MCV MCH MCHC RDW Plt Count MPV Gran % Lymph % (Auto) [place] % (Auto) Eos % (Auto) Baso % (Auto) Gran # Lymph # (Auto) [place] # (Auto) Eos # (Auto) Baso # (Auto) Sodium Potassium Chloride Carbon Dioxide Anion Gap BUN Creatinine Est GFR ( Amer) Est GFR (Non-Af Amer) POC Glucose (mg/dL) 113 H 102 Random Glucose Calcium Procalcitonin 0.05 L 09/11/18 09/11/18 09/11/18 06:34 06:45 06:45 WBC 3.6 L D RBC 3.42 L Hgb 10.5 L Hct 33.3 L MCV 97.4 MCH 30.7 MCHC 31.5 RDW 12.7 Plt Count 139 MPV 11.0 Gran % 52.9 Lymph % (Auto) 27.1 [place] % (Auto) 11.9 H Eos % (Auto) 7.5 H Baso % (Auto) 0.6 Gran # 1.92 Lymph # (Auto) 1.0 L [place] # (Auto) 0.4 Eos # (Auto) 0.3 Baso # (Auto) 0.02 Sodium 135 Potassium 4.4 Chloride 100 Carbon Dioxide 32 Anion Gap 7 L BUN 14 Creatinine 0.7 Est GFR ( Amer) > 60 Est GFR (Non-Af Amer) > 60 POC Glucose (mg/dL) 120 H Random Glucose 97 Calcium 8.9 Procalcitonin 09/11/18 11:11 WBC RBC Hgb Hct MCV MCH MCHC RDW Plt Count MPV Gran % Lymph % (Auto) [place] % (Auto) Eos % (Auto) Baso % (Auto) Gran # Lymph # (Auto) [place] # (Auto) Eos # (Auto) Baso # (Auto) Sodium Potassium Chloride Carbon Dioxide Anion Gap BUN Creatinine Est GFR ( Amer) Est GFR (Non-Af Amer) POC Glucose (mg/dL) 112 H Random Glucose Calcium Procalcitonin
--- NOTE | 2018-09-11 16:24 | US ---
HISTORY: Leg pain and swelling. Evaluate for DVT PHYSICIAN(S): Harrison Blackburn MD. TECHNIQUE: Duplex sonography and color-flow Doppler with graded compression were used to evaluate the deep venous systems of both lower extremities. The exam is somewhat limited by edema. FINDINGS: The visualized deep venous systems of both lower extremities are sonographically normal and compressible. Normal wave forms and augmentation are seen. There is no sonographic evidence for deep venous thrombosis in the visualized segments of both lower extremities. IMPRESSION: No sonographic evidence for deep venous thrombosis in the visualized segments of both lower extremities.
[2018-09-11] MEDS ORDERED: Sodium Chloride 0.9% 500 ML IV STA (23:13)
[2018-09-12] MEDS: Albuterol-Ipratrop 3 mg / 0.5 (3 ml) UD IH SCH ×4 (03:45→21:04)
[2018-09-12 07:05] LABS: GRAN # 4.1 (1.4-6.5); GRAN % 89.7 % (50.0-68.0); HEMOGLOBIN 9.5 g/dL (12.0-16.0); LYMPH # 0.3 (1.2-3.4); LYMPH % 7.2 % (22.0-35.0); MEAN CELL VOLUME 95.5 fl (80.0-105.0); MEAN CORPUSCULAR HEMOGLOBIN 30.5 pg (25.0-35.0); MEAN PLATELET VOLUME 10.8 fl (7.0-11.0); MONO # 0.1 (0.1-0.6); MONO % 3.1 % (1.0-6.0); RBC 3.11 10^6/uL (3.5-6.1); RED CELL DISTRIBUTION WIDTH 12.3 % (11.5-14.5); WHITE BLOOD COUNT 4.6 10^3/uL (4.5-11.0)
--- NOTE | 2018-09-12 07:06 | CP.PCM.PN ---
Subjective - Date & Time of Evaluation Date of Evaluation: 09/12/18 Time of Evaluation: 06:55 - Subjective Subjective: General surgery progress note for Dr. Ferrer Patient seen and examined this am at bedside. Patient had an episode of chest pain overnight and EKG and troponins were ordered. EKG revealed NSR and no ST changes. Troponins negative x 1. Patient endorses mild abdominal pain and states she had one BM yesterday. She otherwise denies CLOUD, SOB, f/c, n/v, dysuria, blood in stool and extremity pain/weakness. Patient endorses continuing passage of flatus. Objective - Vital Signs/Intake and Output Vital Signs (last 24 hours): Temp Pulse Resp BP Pulse Ox 98.5 F 89 20 131/69 95 09/11/18 14:00 09/11/18 14:00 09/11/18 14:00 09/11/18 14:00 09/11/18 14:00 Intake and Output: 09/12/18 09/12/18 06:59 18:59 Output Total 400 Balance -400 - Medications Medications: Current Medications Albuterol/Ipratropium (Duoneb 3 Mg/0.5 Mg (3 Ml) Ud) 3 ml IH [id number] [facility] Last Admin: 09/12/18 03:45 Dose: Not Given Albuterol/Ipratropium (Duoneb 3 Mg/0.5 Mg (3 Ml) Ud) 3 ml IH Q2H PRN PRN Reason: Shortness of Breath Alprazolam (Xanax) 0.25 mg PO BID PRN; Protocol PRN Reason: Anxiety Stop: 09/17/18 18:01 Last Admin: 09/11/18 22:56 Dose: 0.25 mg Arformoterol Tartrate (Brovana) 15 mcg IH [id number] [facility] Last Admin: 09/11/18 07:50 Dose: 15 mcg Aspirin (Aspirin Chewable) 81 mg PO DAILY [facility] Last Admin: 09/11/18 10:20 Dose: 81 mg Atorvastatin Calcium (Lipitor) 10 mg PO DIN [facility] Last Admin: 09/11/18 17:43 Dose: 10 mg Budesonide (Pulmicort Respules) 0.5 mg IH [id number] [facility] Last Admin: 09/11/18 07:50 Dose: 0.5 mg Cyclobenzaprine HCl (Flexeril) 5 mg PO TID [facility] Last Admin: 09/11/18 17:41 Dose: 5 mg Docusate Sodium (Colace) 100 mg PO Q8 [facility] Last Admin: 09/12/18 05:49 Dose: 100 mg Enoxaparin Sodium (Lovenox) 40 mg SC DAILY [facility]; Protocol Last Admin: 09/11/18 10:20 Dose: 40 mg Ferrous Sulfate (Feosol) 324 mg PO DAILY [facility] Last Admin: 09/11/18 10:20 Dose: 324 mg Home Med (Home Med) 1 unit PO DAILY [facility] Last Admin: 09/11/18 10:23 Dose: 1 unit Lidocaine (Lidoderm) 1 ea TD DAILY [facility] Last Admin: 09/11/18 10:16 Dose: 1 ea Meclizine HCl (Antivert) 12.5 mg PO BID [facility] Last Admin: 09/11/18 17:42 Dose: 12.5 mg Methylprednisolone (Solu-Medrol) 20 mg IVP Q12 [facility] Ondansetron HCl (Zofran Inj) 4 mg IVP Q6H PRN PRN Reason: Nausea/Vomiting Polyethylene Glycol (Miralax) 17 gm PO DAILY [facility] Last Admin: 09/11/18 10:19 Dose: 17 gm Sildenafil Citrate (Revatio) 20 mg PO BID [facility] Last Admin: 09/11/18 17:42 Dose: 20 mg Tramadol/Acetaminophen (Ultracet 37.5/325 Mg) 1 tab PO Q8 PRN PRN Reason: Pain, moderate (4-7) Last Admin: 09/11/18 17:41 Dose: 1 tab - Labs Labs: 09/11/18 06:45 09/11/18 06:45 - Constitutional Appears: Well, Non-toxic, No Acute Distress - Head Exam Head Exam: ATRAUMATIC, NORMOCEPHALIC - Eye Exam Eye Exam: EOMI - ENT Exam ENT Exam: Mucous Membranes Moist - Respiratory Exam Respiratory Exam: NORMAL BREATHING PATTERN. absent: Respiratory Distress - Cardiovascular Exam Cardiovascular Exam: REGULAR RHYTHM - GI/Abdominal Exam GI & Abdominal Exam: Soft, Tenderness (mild right sided). absent: Distended, Guarding - Extremities Exam Extremities Exam: absent: Calf Tenderness, Pedal Edema - Neurological Exam Neurological Exam: Alert, Awake, Oriented x3 - Psychiatric Exam Psychiatric exam: Normal Affect, Normal Mood - Skin Skin Exam: Dry, Intact, Normal Color, Warm Assessment and Plan - Assessment and Plan (Free Text) Assessment: 83 F with recurrent reducible ventral hernia x 2 Plan: - conservative management at this time w/ abdominal binder - may try glycerin suppository today if patient constipated - offered surgical intervention electively for hernia repair however has denied intervention at this time - continued medical management for primary medical conditions - please reach out to surgical team for any further questions or concerns - further recs per Dr. Ferrer surgical attending Keila Nichols, PGY 1
[2018-09-12 07:31] LABS: BLOOD UREA NITROGEN 20 mg/dL (7-21); GFR NON-AFRICAN AMERICAN > 60
[2018-09-12] MEDS: Budesonide 0.5 mg/2 ml Inhal Susp UD IH SCH ×2 (07:32→21:04)
[2018-09-12] MEDS: Arformoterol 15 mcg/2 ml Inh Sol IH SCH ×2 (07:32→21:04)
--- NOTE | 2018-09-12 07:59 | PN ---
DATE: 09/12/2018 SUBJECTIVE: The patient appears very comfortable this morning. She is not short of breath at rest. PHYSICAL EXAMINATION: GENERAL: She is awake and alert. VITAL SIGNS: (Last noted in the computer): Temperature 98.5, pulse 89, respirations 18 to 20, blood pressure 131/69. Oxygen saturation on nasal cannula is 95% to 98%. HEENT: Normocephalic, atraumatic. No JVD. CARDIOVASCULAR: Systolic ejection murmur at the lower left sternal border. No S3 gallop. LUNGS: Decreased breath sounds at the bases. Much less rhonchi. No wheezing. GASTROINTESTINAL: Abdomen is soft, nontender and nondistended. Bowel sounds are positive. EXTREMITIES: Mild edema. No cyanosis, no clubbing. Calves are nontender to palpation. SKIN: No acute rash. NEUROLOGIC: Exam limited at the present time. IMPRESSION: 1. Back pain, compression fracture L1 vertebrae. 2. Mild acute bronchitis. 3. End-stage chronic obstructive pulmonary disease. 4. Pulmonary hypertension. 5. Mild anemia. 6. Coronary artery disease. PLAN: The patient appears very comfortable this morning. She is not short of breath at rest. She does state to feeling much better overall. I did discuss the case with the night nurse at length. The night nurse told me that the patient did experience an episode of "chest soreness." This episode lasted seconds and has now resolved. I did discuss the episode with the patient at length. The "chest soreness" is very reproducible with palpation of the anterior sternum - probably musculoskeletal. On physical exam, there is significantly less bronchospasm noted. In addition, there is no significant alveolar-arterial gradient. I will continue the current nebulizer treatments and decrease the intravenous steroids this morning. The patient also remains on her Revatio - for her pulmonary hypertension. Inputs by Surgery and Interventional Radiology are also noted. Clinical status of the patient is certainly improved - compared to the initial presentation. However, unfortunately, the future status/prognosis for this chronically ill elderly patient remains poor. I will discuss the above with the attending physician. Evgeny Briggs MD [facility] # [id number] JOSE[facility]
[2018-09-12 08:56] LABS: TROPONIN I < 0.01 ng/mL
[2018-09-12] MEDS: MethylPREDNISolone 40 mg Vial IVP SCH ×2 (11:02→22:18)
[2018-09-12] MEDS: DEXILANT 60 MG PO SCH (11:02)
[2018-09-12] MEDS: Sildenafil 20 MG TAB PO SCH ×2 (11:03→18:40)
[2018-09-12] MEDS: POLYETHYLENE GLYCOL 3350 17 GM/Dose PACKET PO SCH (11:03)
[2018-09-12] MEDS: Lidocaine 5% Patch TD SCH (11:04)
[2018-09-12] MEDS: Enoxaparin 40 mg Syringe SC SCH (11:10)
--- NOTE | 2018-09-12 11:28 | CP.PCM.PN ---
<Jocelyn Ruiz - Last Filed: 09/12/18 11:19> Subjective - Date & Time of Evaluation Date of Evaluation: 09/12/18 Time of Evaluation: 09:41 - Subjective Subjective: Jocelyn Ruiz, PGY1 Hospital Progress Note Patient seen and examined at bedside this morning. She had chest pain yesterday night, trops x2 negative. Ultracet did not help with her back pain, but states she slept well on xanax overnight with no complaints. Offers no new complaints today. Objective - Vital Signs/Intake and Output Vital Signs (last 24 hours): Temp Pulse Resp BP Pulse Ox 98.6 F 80 18 127/51 L 96 09/12/18 06:00 09/12/18 06:00 09/12/18 06:00 09/12/18 06:00 09/12/18 06:00 Intake and Output: 09/12/18 09/12/18 06:59 18:59 Output Total 400 Balance -400 - Medications Medications: Current Medications Albuterol/Ipratropium (Duoneb 3 Mg/0.5 Mg (3 Ml) Ud) 3 ml IH [id number] [facility] Last Admin: 09/12/18 07:32 Dose: Not Given Albuterol/Ipratropium (Duoneb 3 Mg/0.5 Mg (3 Ml) Ud) 3 ml IH Q2H PRN PRN Reason: Shortness of Breath Alprazolam (Xanax) 0.25 mg PO BID PRN; Protocol PRN Reason: Anxiety Stop: 09/17/18 18:01 Last Admin: 09/11/18 22:56 Dose: 0.25 mg Arformoterol Tartrate (Brovana) 15 mcg IH [id number] [facility] Last Admin: 09/12/18 07:32 Dose: Not Given Aspirin (Aspirin Chewable) 81 mg PO DAILY [facility] Last Admin: 09/12/18 11:03 Dose: 81 mg Atorvastatin Calcium (Lipitor) 10 mg PO DIN [facility] Last Admin: 09/11/18 17:43 Dose: 10 mg Budesonide (Pulmicort Respules) 0.5 mg IH [id number] [facility] Last Admin: 09/12/18 07:32 Dose: Not Given Cyclobenzaprine HCl (Flexeril) 5 mg PO TID [facility] Last Admin: 09/12/18 11:03 Dose: 5 mg Docusate Sodium (Colace) 100 mg PO Q8 [facility] Last Admin: 09/12/18 05:49 Dose: 100 mg Enoxaparin Sodium (Lovenox) 40 mg SC DAILY [facility]; Protocol Last Admin: 09/12/18 11:10 Dose: 40 mg Ferrous Sulfate (Feosol) 324 mg PO DAILY [facility] Last Admin: 09/12/18 11:03 Dose: 324 mg Home Med (Home Med) 1 unit PO DAILY [facility] Last Admin: 09/12/18 11:02 Dose: 1 unit Lidocaine (Lidoderm) 1 ea TD DAILY [facility] Last Admin: 09/12/18 11:04 Dose: 1 ea Meclizine HCl (Antivert) 12.5 mg PO BID [facility] Last Admin: 09/12/18 11:03 Dose: 12.5 mg Methylprednisolone (Solu-Medrol) 20 mg IVP Q12 [facility] Last Admin: 09/12/18 11:02 Dose: 20 mg Ondansetron HCl (Zofran Inj) 4 mg IVP Q6H PRN PRN Reason: Nausea/Vomiting Polyethylene Glycol (Miralax) 17 gm PO DAILY [facility] Last Admin: 09/12/18 11:03 Dose: 17 gm Sildenafil Citrate (Revatio) 20 mg PO BID [facility] Last Admin: 09/12/18 11:03 Dose: 20 mg Tramadol/Acetaminophen (Ultracet 37.5/325 Mg) 1 tab PO Q8 PRN PRN Reason: Pain, moderate (4-7) Last Admin: 09/11/18 17:41 Dose: 1 tab - Labs Labs: 09/12/18 06:15 09/12/18 06:15 - Additional Findings Additional findings: - Constitutional Appears: Non-toxic, No Acute Distress - Head Exam Head Exam: ATRAUMATIC, NORMOCEPHALIC - Eye Exam Eye Exam: EOMI, Normal appearance - Neck Exam Neck exam: Positive for: Normal Inspection. Negative for: Lymphadenopathy, Tenderness, Thyromegaly - Respiratory Exam Respiratory Exam: Clear to Auscultation Bilateral, Wheezes, NORMAL BREATHING PATTERN. absent: Accessory Muscle Use, Rales, Rhonchi, Respiratory Distress - Cardiovascular Exam Cardiovascular Exam: REGULAR RHYTHM, +S1. absent: Gallop, Systolic Murmur - GI/Abdominal Exam GI & Abdominal Exam: Soft. absent: Distended, Rebound, Tenderness Additional comments: minimal left quadrant tenderness appreciated ventral hernia noted midline surgical scar - Extremities Exam Extremities exam: Positive for: normal capillary refill, pedal edema, pedal pulses present - Back Exam Back exam: muscle spasm, vertebral tenderness (mid to low thoracic) - Neurological Exam Neurological exam: Alert, CN II-XII Intact, Oriented x3 - Skin Skin Exam: Dry, Intact, Normal Color Assessment and Plan - Assessment and Plan (Free Text) Assessment: Patient is an 83 year old female with past medical history of CHF, T2DM, HLD, COPD on home O2, pulmonary HTN, urinary incontinence presenting with back pain, abdominal pain and cough. Plan: Chronic back pain -09/[address] shows no acute pathology -09/10 Abd/pelvis CT shows new compression deformity L1 vertebral body, evidence of prior kyphoplasty L1, compression deformities L2 and L5, profound osteopenia -per IR, no indication for kyphoplasty at this time -will continue medical management at this time with flexeril 5mg TID, lidoderm patch and ultracet q8 prn -if breakthrough pain, will consider increasing flexeril to 10mg -PT/OT eval, recommend AVIVA Abdominal pain -per surgery, no intervention at this time for ventral hernia. Will monitor -CTAP shows constipation without fecal impaction or obstruction -superimposed opioid induced constipation present -continue colace, miralax Cough -afebrile, no leukocytosis -09/10 CXR shows no active disease -continue duonebs, Brovana -solumedrol 20 mg IV Q12 -blood culture negative 48 hours, no urine culture -procalc unremarkable -flu negative -Pulmonology consulted. Appreciate recs. Pulmonary HTN -home Revatio HLD -home Lipitor PPX/Diet -dexilant, lovenox -HHD Patient seen and case discussed with Dr. Keating <Meme Keating - Last Filed: 09/12/18 12:16> Objective - Vital Signs/Intake and Output Vital Signs (last 24 hours): Temp Pulse Resp BP Pulse Ox 98.6 F 80 18 127/51 L 96 09/12/18 06:00 09/12/18 06:00 09/12/18 06:00 09/12/18 06:00 09/12/18 06:00 Intake and Output: 09/12/18 09/12/18 06:59 18:59 Output Total 400 Balance -400 - Medications Medications: Current Medications Albuterol/Ipratropium (Duoneb 3 Mg/0.5 Mg (3 Ml) Ud) 3 ml IH [id number] [facility] Last Admin: 09/12/18 07:32 Dose: Not Given Albuterol/Ipratropium (Duoneb 3 Mg/0.5 Mg (3 Ml) Ud) 3 ml IH Q2H PRN PRN Reason: Shortness of Breath Alprazolam (Xanax) 0.25 mg PO BID PRN; Protocol PRN Reason: Anxiety Stop: 09/17/18 18:01 Last Admin: 09/11/18 22:56 Dose: 0.25 mg Arformoterol Tartrate (Brovana) 15 mcg IH [id number] [facility] Last Admin: 09/12/18 07:32 Dose: Not Given Aspirin (Aspirin Chewable) 81 mg PO DAILY [facility] Last Admin: 09/12/18 11:03 Dose: 81 mg Atorvastatin Calcium (Lipitor) 10 mg PO DIN [facility] Last Admin: 09/11/18 17:43 Dose: 10 mg Budesonide (Pulmicort Respules) 0.5 mg IH [id number] [facility] Last Admin: 09/12/18 07:32 Dose: Not Given Cyclobenzaprine HCl (Flexeril) 5 mg PO TID [facility] Last Admin: 09/12/18 11:03 Dose: 5 mg Docusate Sodium (Colace) 100 mg PO Q8 [facility] Last Admin: 09/12/18 05:49 Dose: 100 mg Enoxaparin Sodium (Lovenox) 40 mg SC DAILY [facility]; Protocol Last Admin: 09/12/18 11:10 Dose: 40 mg Ferrous Sulfate (Feosol) 324 mg PO DAILY [facility] Last Admin: 09/12/18 11:03 Dose: 324 mg Home Med (Home Med) 1 unit PO DAILY [facility] Last Admin: 09/12/18 11:02 Dose: 1 unit Lidocaine (Lidoderm) 1 ea TD DAILY [facility] Last Admin: 09/12/18 11:04 Dose: 1 ea Meclizine HCl (Antivert) 12.5 mg PO BID [facility] Last Admin: 09/12/18 11:03 Dose: 12.5 mg Methylprednisolone (Solu-Medrol) 20 mg IVP Q12 [facility] Last Admin: 09/12/18 11:02 Dose: 20 mg Ondansetron HCl (Zofran Inj) 4 mg IVP Q6H PRN PRN Reason: Nausea/Vomiting Polyethylene Glycol (Miralax) 17 gm PO DAILY [facility] Last Admin: 09/12/18 11:03 Dose: 17 gm Sildenafil Citrate (Revatio) 20 mg PO BID [facility] Last Admin: 09/12/18 11:03 Dose: 20 mg Tramadol/Acetaminophen (Ultracet 37.5/325 Mg) 1 tab PO Q8 PRN PRN Reason: Pain, moderate (4-7) Last Admin: 09/11/18 17:41 Dose: 1 tab - Labs Labs: 09/12/18 06:15 09/12/18 06:15 Attending/Attestation - Attestation I have personally seen and examined this patient.: Yes I have fully participated in the care of the patient.: Yes I have reviewed all pertinent clinical information, including history, physical exam and plan: Yes Notes (Text): 09/12/18 12:14 83 year old female with past medical history of COPD, diabetes, pulmonary hypertension, abdominal hernia and history of kyphoplasty who presented with complaint of back pain, abdominal pain, cough and difficulty ambulating. CT abd/pelvis showed constipation without fecal impaction or obstruction. CT spine showed new compression deformity L1 vertebral body, evidence of prior kyphoplast y, compression deformities L2 and L5 and profound osteopenia. IR input was appreciated; no plan for kyphoplasty at this time. She is currently on ultracet, flexeril and lidoderm patch. Constipation has improved with colace, miralax and dulcolax suppository. Surgery evaluation was appreciated for abdominal hernia; no plan for intervention at this time. Pulmonary is following for COPD and started iv steroids. Patient reports cough and dyspnea has improved. Last night she complained of chest pain, resolved today. Serial cardiac enzymes were negative x2 and EKG showed no acute changes. PT evaluation was appreciated; recommended AVIVA. Will discuss with family and insurance case manager tomorrow. Meme Keating MD Hospitalist.
[2018-09-12] MEDS: TraMADol/Apap 37.5/325 mg Tab PO PRN (15:12)
--- NOTE | 2018-09-12 18:46 | CARD ---
APPROVED REPORT Date of service: 09/12/2018 EKG Measurement Heart [id number] <Conclusion> Normal sinus rhythm Normal ECG
[2018-09-13] MEDS: Albuterol-Ipratrop 3 mg / 0.5 (3 ml) UD IH SCH ×3 (01:05→13:51)
[2018-09-13 06:34] LABS: GRAN # 4.96 (1.4-6.5); GRAN % 88.7 % (50.0-68.0); HEMOGLOBIN 10.1 g/dL (12.0-16.0); LYMPH # 0.4 (1.2-3.4); LYMPH % 7.2 % (22.0-35.0); MEAN CELL VOLUME 96.7 fl (80.0-105.0); MEAN CORPUSCULAR HEMOGLOBIN 30.4 pg (25.0-35.0); MEAN CORPUSCULAR HGB CONC 31.5 g/dl (31.0-37.0); MEAN PLATELET VOLUME 10.7 fl (7.0-11.0); MONO # 0.2 (0.1-0.6); MONO % 4.1 % (1.0-6.0); RBC 3.32 10^6/uL (3.5-6.1); RED CELL DISTRIBUTION WIDTH 12.5 % (11.5-14.5); WHITE BLOOD COUNT 5.6 10^3/uL (4.5-11.0)
[2018-09-13 06:51] LABS: BLOOD UREA NITROGEN 24 mg/dL (7-21); CALCIUM 9.4 mg/dL (8.4-10.5); GFR NON-AFRICAN AMERICAN > 60
[2018-09-13] MEDS: Arformoterol 15 mcg/2 ml Inh Sol IH SCH ×2 (07:25→20:59)
[2018-09-13] MEDS: Budesonide 0.5 mg/2 ml Inhal Susp UD IH SCH ×2 (07:25→20:59)
[2018-09-13] MEDS ORDERED: Sod Polystyrene Sulf 15 gm/60 ml Susp PO ONE (08:33)
[2018-09-13] MEDS: Lidocaine 5% Patch TD SCH (09:23)
[2018-09-13] MEDS: POLYETHYLENE GLYCOL 3350 17 GM/Dose PACKET PO SCH (09:23)
[2018-09-13] MEDS: Enoxaparin 40 mg Syringe SC SCH (09:24)
[2018-09-13] MEDS: TraMADol/Apap 37.5/325 mg Tab PO PRN (09:25)
[2018-09-13] MEDS: DEXILANT 60 MG PO SCH (09:25)
[2018-09-13] MEDS: Sildenafil 20 MG TAB PO SCH ×2 (09:26→17:08)
--- NOTE | 2018-09-13 09:43 | PN ---
DATE: 09/13/2018 SUBJECTIVE: The patient appears very comfortable this morning. She is not short of breath at rest. OBJECTIVE: VITAL SIGNS: Last temperature recorded is 98.8, pulse this morning is 88, respiratory rate 18, blood pressure 116/57. Oxygen saturation on nasal cannula 95%-97%. HEENT: Normocephalic, atraumatic. NECK: No JVD. CARDIOVASCULAR: Systolic ejection murmur at the lower left sternal border. No S3 gallop. LUNGS: Decreased breath sounds at the bases. Very minimal/less rhonchi. No wheezing. EXTREMITIES: Mild edema. No cyanosis, no clubbing. Calves are nontender to palpation. GASTROINTESTINAL: Abdomen is soft, nontender and nondistended. Bowel sounds are positive. SKIN: No acute rash. NEUROLOGIC: Limited at the present time. IMPRESSION: 1. Back pain, compression fracture L1 vertebrae. 2. Mild acute bronchitis-resolving. 3. End-stage chronic obstructive pulmonary disease. 4. Pulmonary hypertension. 5. Mild anemia. 6. Coronary artery disease. PLAN: The patient appears very comfortable this morning. She is not short of breath at rest. She does state to feeling much better overall. On physical exam, her bronchospasm continues to resolve. In addition, the alveolar-arterial gradient also continues to resolve. I will continue the current nebulizer treatments and change to oral steroids this morning. The patient also remains on Revatio - for her pulmonary hypertension. Inputs by Internal Medicine and Interventional Radiology are also noted. Clinical status of the patient is significantly improved - compared to her initial presentation. Again, the patient does state to feeling much better overall. However, unfortunately, the future status/prognosis for this elderly patient, with multiple medical problems - remains poor. All are aware. I will discuss the above with the attending physician. Evgeny Briggs MD MTDOfelia
--- NOTE | 2018-09-13 11:33 | CP.PCM.PN ---
<Jocelyn Ruiz - Last Filed: 09/13/18 11:27> Subjective - Date & Time of Evaluation Date of Evaluation: 09/13/18 Time of Evaluation: 11:27 - Subjective Subjective: Jocelyn Ruiz Y1 Hospital Progress Note Patient seen and examined at bedside this morning. No acute events reported overnight. Patient continues to complain of significant back pain with minimal movement. Patient states she does not wish to go to [facility] Offers no new complaints today. Objective - Vital Signs/Intake and Output Vital Signs (last 24 hours): Temp Pulse Resp BP Pulse Ox 97.4 F L 81 16 150/71 98 09/13/18 06:00 09/13/18 06:00 09/13/18 06:00 09/13/18 06:00 09/13/18 06:00 Intake and Output: 09/13/18 09/13/18 06:59 18:59 Intake Total 0 Output Total 1885 Balance -1885 - Medications Medications: Current Medications Albuterol/Ipratropium (Duoneb 3 Mg/0.5 Mg (3 Ml) Ud) 3 ml IH [id number] [facility] Last Admin: 09/13/18 07:25 Dose: 3 ml Albuterol/Ipratropium (Duoneb 3 Mg/0.5 Mg (3 Ml) Ud) 3 ml IH Q2H PRN PRN Reason: Shortness of Breath Last Admin: 09/13/18 00:38 Dose: 3 ml Alprazolam (Xanax) 0.25 mg PO BID PRN; Protocol PRN Reason: Anxiety Stop: 09/17/18 18:01 Last Admin: 09/11/18 22:56 Dose: 0.25 mg Arformoterol Tartrate (Brovana) 15 mcg IH [id number] [facility] Last Admin: 09/13/18 07:25 Dose: 15 mcg Aspirin (Aspirin Chewable) 81 mg PO DAILY [facility] Last Admin: 09/13/18 09:26 Dose: 81 mg Atorvastatin Calcium (Lipitor) 10 mg PO DIN [facility] Last Admin: 09/12/18 18:40 Dose: 10 mg Budesonide (Pulmicort Respules) 0.5 mg IH [id number] [facility] Last Admin: 09/13/18 07:25 Dose: 0.5 mg Calcium/Vitamin D (Oscal-D 250 Mg-125 Units Tab) 1 tab PO DAILY [facility] Cyclobenzaprine HCl (Flexeril) 5 mg PO TID [facility] Last Admin: 09/13/18 09:26 Dose: 5 mg Docusate Sodium (Colace) 100 mg PO Q8 [facility] Last Admin: 09/13/18 05:08 Dose: 100 mg Enoxaparin Sodium (Lovenox) 40 mg SC DAILY [facility]; Protocol Last Admin: 09/13/18 09:24 Dose: 40 mg Ferrous Sulfate (Feosol) 324 mg PO DAILY [facility] Last Admin: 09/13/18 09:26 Dose: 324 mg Home Med (Home Med) 1 unit PO DAILY [facility] Last Admin: 09/13/18 09:25 Dose: 1 unit Lidocaine (Lidoderm) 1 ea TD DAILY [facility] Last Admin: 09/13/18 09:23 Dose: 1 ea Meclizine HCl (Antivert) 12.5 mg PO BID [facility] Last Admin: 09/13/18 09:26 Dose: 12.5 mg Ondansetron HCl (Zofran Inj) 4 mg IVP Q6H PRN PRN Reason: Nausea/Vomiting Oxycodone/Acetaminophen (Percocet 5/325 Mg Tab) 1 tab PO Q6H PRN PRN Reason: Pain, severe (8-10) Stop: 09/16/18 11:25 Polyethylene Glycol (Miralax) 17 gm PO DAILY [facility] Last Admin: 09/13/18 09:23 Dose: 17 gm Prednisone (Prednisone Tab) 20 mg PO DAILY [facility] Last Admin: 09/13/18 09:26 Dose: 20 mg Sildenafil Citrate (Revatio) 20 mg PO BID [facility] Last Admin: 09/13/18 09:26 Dose: 20 mg - Labs Labs: 09/13/18 06:00 09/13/18 06:00 - Additional Findings Additional findings: - Constitutional Appears: Non-toxic, No Acute Distress - Head Exam Head Exam: ATRAUMATIC, NORMOCEPHALIC - Eye Exam Eye Exam: EOMI, Normal appearance - Neck Exam Neck exam: Positive for: Normal Inspection. Negative for: Lymphadenopathy, Tenderness, Thyromegaly - Respiratory Exam Respiratory Exam: Clear to Auscultation Bilateral, Wheezes, NORMAL BREATHING PATTERN. absent: Accessory Muscle Use, Rales, Rhonchi, Respiratory Distress - Cardiovascular Exam Cardiovascular Exam: REGULAR RHYTHM, +S1. absent: Gallop, Systolic Murmur - GI/Abdominal Exam GI & Abdominal Exam: Soft. absent: Distended, Rebound, Tenderness Additional comments: minimal left quadrant tenderness appreciated ventral hernia noted midline surgical scar - Extremities Exam Extremities exam: Positive for: normal capillary refill, pedal edema, pedal pulses present - Back Exam Back exam: muscle spasm, vertebral tenderness (mid to low thoracic), no motor or sensory deficits appreciated. Spinal tenderness appreciated in lumbar spine, patient is in pain with any flexion of spin. - Neurological Exam Neurological exam: Alert, CN II-XII Intact, Oriented x3 - Skin Skin Exam: Dry, Intact, Normal Color Assessment and Plan - Assessment and Plan (Free Text) Assessment: Patient is an 83 year old female with past medical history of CHF, T2DM, HLD, COPD on home O2, pulmonary HTN, urinary incontinence presenting with back pain, abdominal pain and cough. Plan: Chronic back pain -will stop ultracet, start on percocet 5/325mg q6 -09/[address] shows no acute pathology -09/10 Abd/pelvis CT shows new compression deformity L1 vertebral body, evidence of prior kyphoplasty L1, compression deformities L2 and L5, profound osteopenia -per IR, no indication for kyphoplasty at this time -will continue medical management at this time with flexeril 5mg TID, lidoderm patch -PT/OT eval, recommend AVIVA. Patient does not rehab at this time, will continue discussion Abdominal pain - improved -per surgery, no intervention at this time for ventral hernia. Will monitor -CTAP shows constipation without fecal impaction or obstruction -superimposed opioid induced constipation present -continue colace, miralax. Patient is having regular BM Cough - improved -afebrile, no leukocytosis -09/10 CXR shows no active disease -pulmonology started on prednisone 20mg, will consider tapering in future -continue duoneefmi Brovana -solumedrol 20 mg IV Q12 -blood culture negative 48 hours, no urine culture -procalc unremarkable -flu negative -Pulmonology on consult Pulmonary HTN -home Revatio HLD -home Lipitor PPX/Diet -dexilant, lovenox -HHD Patient seen and case discussed with Dr. Melo <Blaine Melo - Last Filed: 09/14/18 13:19> Objective - Vital Signs/Intake and Output Vital Signs (last 24 hours): Temp Pulse Resp BP Pulse Ox 98.6 F 80 20 151/68 H 99 09/14/18 06:00 09/14/18 06:00 09/14/18 06:00 09/14/18 06:00 09/14/18 06:00 Intake and Output: 09/14/18 09/14/18 06:59 18:59 Intake Total 540 Output Total 300 Balance 240 - Medications Medications: Current Medications Albuterol/Ipratropium (Duoneb 3 Mg/0.5 Mg (3 Ml) Ud) 3 ml IH [id number] PRN PRN Reason: Shortness of Breath Alprazolam (Xanax) 0.25 mg PO BID PRN; Protocol PRN Reason: Anxiety Stop: 09/17/18 18:01 Last Admin: 09/11/18 22:56 Dose: 0.25 mg Arformoterol Tartrate (Brovana) 15 mcg IH [id number] [facility] Last Admin: 09/14/18 07:53 Dose: 15 mcg Aspirin (Aspirin Chewable) 81 mg PO DAILY [facility] Last Admin: 09/14/18 09:44 Dose: 81 mg Atorvastatin Calcium (Lipitor) 10 mg PO DIN [facility] Last Admin: 09/13/18 17:08 Dose: 10 mg Budesonide (Pulmicort Respules) 0.5 mg IH [id number] [facility] Last Admin: 09/14/18 07:53 Dose: 0.5 mg Calcium/Vitamin D (Oscal-D 250 Mg-125 Units Tab) 1 tab PO DAILY [facility] Last Admin: 09/14/18 09:45 Dose: 1 tab Docusate Sodium (Colace) 100 mg PO Q8 [facility] Last Admin: 09/14/18 07:00 Dose: 100 mg Enoxaparin Sodium (Lovenox) 40 mg SC DAILY [facility]; Protocol Last Admin: 09/14/18 09:45 Dose: 40 mg Ferrous Sulfate (Feosol) 324 mg PO DAILY [facility] Last Admin: 09/14/18 09:44 Dose: 324 mg Home Med (Home Med) 1 unit PO DAILY [facility] Last Admin: 09/14/18 09:45 Dose: 1 unit Ketorolac Tromethamine (Toradol) 30 mg IVP Q6H PRN PRN Reason: Pain, moderate (4-7) Lidocaine (Lidoderm) 1 ea TD DAILY [facility] Last Admin: 09/14/18 09:45 Dose: 1 ea Ondansetron HCl (Zofran Inj) 4 mg IVP Q6H PRN PRN Reason: Nausea/Vomiting Oxycodone/Acetaminophen (Percocet 5/325 Mg Tab) 1 tab PO Q6H PRN PRN Reason: Pain, severe (8-10) Stop: 09/16/18 11:25 Last Admin: 09/14/18 09:43 Dose: 1 tab Polyethylene Glycol (Miralax) 17 gm PO DAILY [facility] Last Admin: 09/14/18 09:30 Dose: Not Given Sildenafil Citrate (Revatio) 20 mg PO BID [facility] Last Admin: 09/14/18 09:45 Dose: 20 mg - Labs Labs: 09/13/18 06:00 09/13/18 13:00 Attending/Attestation - Attestation I have personally seen and examined this patient.: Yes I have fully participated in the care of the patient.: Yes I have reviewed all pertinent clinical information, including history, physical exam and plan: Yes Notes (Text): 09/14/18 13:15 Medical record note made by the resident after discussion with my direction and input after the patient was personally seen and examined by me. I have reviewed the chart and agree that the record accurately reflects by personal performance of the history, physical exam, data review, and medical decision-making, in the course for the patient. I have also personally directed the plan of care. 83 year old female with past medical history of COPD, diabetes, pulmonary hypertension, abdominal hernia and history of kyphoplasty who presented with com plaint of back pain, abdominal pain, cough and difficulty ambulating. CT abd/pelvis showed constipation without fecal impaction or obstruction. CT spine showed new compression deformity L1 vertebral body, evidence of prior kyphoplasty, compression deformities L2 and L5 and profound osteopenia.Patient is still having lot of pain, pain increase with movement.Patient mobility is limited due to pain.We will discontinue Ultracet and start patient on Percocet. IR evaluation is noted; no plan for kyphoplasty at this time. Constipation has improved with colace, miralax and dulcolax suppository. Surgery evaluation was appreciated for abdominal hernia; no plan for intervention at this time. COPD is improved.Patient is not wheezing. PT has recommended AVIVA.Patient and family has refused. Pain management evaluation is pending. Prognosis is guarded.Patient is high risk for fall.
[2018-09-13] MEDS: Calcium-Vit D 250 mg-125 Units Tab UD PO SCH (11:46)
[2018-09-13] MEDS: Oxycodone/Acetaminophen 5/325 mg Tab PO PRN (12:09)
[2018-09-13 13:47] LABS: BLOOD UREA NITROGEN 24 mg/dL (7-21); CALCIUM 8.8 mg/dL (8.4-10.5); GFR NON-AFRICAN AMERICAN > 60
[2018-09-13] MEDS ORDERED: Albuterol-Ipratrop 3 mg / 0.5 (3 ml) UD IH PRN (15:10)
--- NOTE | 2018-09-14 06:58 | CP.PCM.PN ---
<VirkBouchra L - Last Filed: 09/14/18 13:23> Subjective - Date & Time of Evaluation Date of Evaluation: 09/14/18 Time of Evaluation: 06:58 - Subjective Subjective: Resident Progress Note for Hospitalist Service Patient was examined out of bed to chair. No acute events overnight. Patient states she did have bowel movements yesterday and today. Admits to back pain unchanged from prior. Denies fevers, chills, chest pain, shortness of breath, diarrhea, dysuria. Objective - Vital Signs/Intake and Output Vital Signs (last 24 hours): Temp Pulse Resp BP Pulse Ox 98.4 F 96 H 18 125/73 97 09/13/18 22:00 09/13/18 22:00 09/13/18 22:00 09/13/18 22:00 09/13/18 22:00 Intake and Output: 09/13/18 09/14/18 18:59 06:59 Intake Total 540 Output Total 300 Balance 240 - Medications Medications: Current Medications Albuterol/Ipratropium (Duoneb 3 Mg/0.5 Mg (3 Ml) Ud) 3 ml IH [id number] PRN PRN Reason: Shortness of Breath Alprazolam (Xanax) 0.25 mg PO BID PRN; Protocol PRN Reason: Anxiety Stop: 09/17/18 18:01 Last Admin: 09/11/18 22:56 Dose: 0.25 mg Arformoterol Tartrate (Brovana) 15 mcg IH [id number] [facility] Last Admin: 09/13/18 20:59 Dose: Not Given Aspirin (Aspirin Chewable) 81 mg PO DAILY [facility] Last Admin: 09/13/18 09:26 Dose: 81 mg Atorvastatin Calcium (Lipitor) 10 mg PO DIN [facility] Last Admin: 09/13/18 17:08 Dose: 10 mg Budesonide (Pulmicort Respules) 0.5 mg IH [id number] [facility] Last Admin: 09/13/18 20:59 Dose: Not Given Calcium/Vitamin D (Oscal-D 250 Mg-125 Units Tab) 1 tab PO DAILY [facility] Last Admin: 09/13/18 11:46 Dose: 1 tab Denosumab (Prolia) 60 mg SC ONCE ONE Stop: 09/14/18 10:01 Docusate Sodium (Colace) 100 mg PO Q8 [facility] Last Admin: 12/26/18 21:59 Dose: 100 mg Enoxaparin Sodium (Lovenox) 40 mg SC DAILY [facility]; Protocol Last Admin: 09/13/18 09:24 Dose: 40 mg Ferrous Sulfate (Feosol) 324 mg PO DAILY [facility] Last Admin: 09/13/18 09:26 Dose: 324 mg Home Med (Home Med) 1 unit PO DAILY [facility] Last Admin: 09/13/18 09:25 Dose: 1 unit Lidocaine (Lidoderm) 1 ea TD DAILY [facility] Last Admin: 09/13/18 09:23 Dose: 1 ea Ondansetron HCl (Zofran Inj) 4 mg IVP Q6H PRN PRN Reason: Nausea/Vomiting Oxycodone/Acetaminophen (Percocet 5/325 Mg Tab) 1 tab PO Q6H PRN PRN Reason: Pain, severe (8-10) Stop: 09/16/18 11:25 Last Admin: 09/13/18 12:09 Dose: 1 tab Polyethylene Glycol (Miralax) 17 gm PO DAILY [facility] Last Admin: 09/13/18 09:23 Dose: 17 gm Sildenafil Citrate (Revatio) 20 mg PO BID [facility] Last Admin: 09/13/18 17:08 Dose: 20 mg - Labs Labs: 09/13/18 06:00 09/13/18 13:00 - Additional Findings Additional findings: - Constitutional Appears: Non-toxic, No Acute Distress - Head Exam Head Exam: ATRAUMATIC, NORMOCEPHALIC - Eye Exam Eye Exam: EOMI, Normal appearance - Neck Exam Neck exam: Positive for: Normal Inspection. Negative for: Lymphadenopathy, Thyromegaly - Respiratory Exam Respiratory Exam: Clear to Auscultation Bilateral, Wheezes, NORMAL BREATHING PA TTERN. absent: Accessory Muscle Use, Rales, Rhonchi, Respiratory Distress - Cardiovascular Exam Cardiovascular Exam: REGULAR RHYTHM, +S1. absent: Gallop, Systolic Murmur - GI/Abdominal Exam GI & Abdominal Exam: Soft. absent: Distended, Rebound, Tenderness Additional comments: minimal left quadrant tenderness appreciated ventral hernia midline surgical scar - Extremities Exam Extremities exam: Positive for: normal capillary refill, pedal edema, pedal pulses present - Back Exam Back exam: muscle spasm, vertebral tenderness (mid to low thoracic), no motor or sensory deficits appreciated. Spinal tenderness appreciated in lumbar spine - Neurological Exam Neurological exam: Alert, CN II-XII Intact, Oriented x3 - Skin Skin Exam: Dry, Intact, Normal Color Assessment and Plan - Assessment and Plan (Free Text) Assessment: Patient is an 83 year old female with past medical history of CHF, T2DM, HLD, COPD on home O2, pulmonary HTN, urinary incontinence presenting with back pain, abdominal pain and cough. Plan: Chronic back pain - percocet 5/325mg q6 - 09/[address] shows no acute pathology - 09/10 abd/pelvis CT shows new compression deformity L1 vertebral body, evidence of prior kyphoplasty L1, compression deformities L2 and L5, profound osteopenia - no indication for kyphoplasty as per IR - flexeril 5mg TID, lidoderm patch, toradol 30mg Q6H PRN - PT/OT eval, recommend AVIVA. Patient does not rehab at this time, will continue discussion - pain management consulted. Appreciate recs. Abdominal pain - improved - no intervention at this time for ventral hernia as per surgery recs - CT A/P shows constipation without fecal impaction or obstruction - superimposed opioid induced constipation present - continue colace, miralax PRN Cough - improved - afebrile, no leukocytosis - 09/10 CXR shows no active disease - pulmonology started on prednisone 20mg, will consider tapering in future - continue Lorelei lao - solumedrol 20 mg IV Q12 - blood culture negative 48 hours, no urine culture - procal low, flu negative - Pulmonology on consult Pulmonary HTN - home Revatio HLD - home Lipitor PPX - dexilant, lovenox Case discussed with Dr. Lorie Virk PGY-1 <Blaine Melo - Last Filed: 09/15/18 18:04> Objective - Vital Signs/Intake and Output Vital Signs (last 24 hours): Temp Pulse Resp BP Pulse Ox 98.1 F 87 20 126/63 99 09/15/18 06:00 09/15/18 06:00 09/15/18 06:00 09/15/18 06:00 09/15/18 06:00 Intake and Output: 09/15/18 09/15/18 06:59 18:59 Intake Total 540 Balance 540 - Medications Medications: Current Medications Albuterol/Ipratropium (Duoneb 3 Mg/0.5 Mg (3 Ml) Ud) 3 ml IH [id number] PRN PRN Reason: Shortness of Breath Alprazolam (Xanax) 0.25 mg PO BID PRN; Protocol PRN Reason: Anxiety Stop: 09/17/18 18:01 Last Admin: 09/15/18 13:12 Dose: 0.25 mg Arformoterol Tartrate (Brovana) 15 mcg IH [id number] [facility] Last Admin: 09/15/18 08:11 Dose: 15 mcg Aspirin (Aspirin Chewable) 81 mg PO DAILY [facility] Last Admin: 09/15/18 09:18 Dose: 81 mg Atorvastatin Calcium (Lipitor) 10 mg PO DIN [facility] Last Admin: 09/15/18 16:35 Dose: 10 mg Budesonide (Pulmicort Respules) 0.5 mg IH [id number] [facility] Last Admin: 09/15/18 08:11 Dose: 0.5 mg Calcium/Vitamin D (Oscal-D 250 Mg-125 Units Tab) 1 tab PO DAILY [facility] Last Admin: 09/15/18 11:00 Dose: 1 tab Docusate Sodium (Colace) 100 mg PO Q8 [facility] Last Admin: 09/15/18 13:12 Dose: 100 mg Enoxaparin Sodium (Lovenox) 40 mg SC DAILY [facility]; Protocol Last Admin: 09/15/18 09:17 Dose: 40 mg Ferrous Sulfate (Feosol) 324 mg PO DAILY [facility] Last Admin: 09/15/18 09:18 Dose: 324 mg Home Med (Home Med) 1 unit PO DAILY [facility] Last Admin: 09/15/18 10:59 Dose: 1 unit Ketorolac Tromethamine (Toradol) 15 mg IVP Q6H PRN PRN Reason: Pain, moderate (4-7) Last Admin: 09/15/18 13:18 Dose: 15 mg Lidocaine (Lidoderm) 1 ea TD DAILY [facility] Last Admin: 09/15/18 11:00 Dose: 1 ea Morphine Sulfate (Morphine) 1 mg IM Q4H PRN PRN Reason: Pain, severe (8-10) Ondansetron HCl (Zofran Inj) 4 mg IVP Q6H PRN PRN Reason: Nausea/Vomiting Oxycodone/Acetaminophen (Percocet 5/325 Mg Tab) 1 tab PO Q6H PRN PRN Reason: Pain, severe (8-10) Stop: 09/16/18 11:25 Last Admin: 09/15/18 09:18 Dose: 1 tab Polyethylene Glycol (Miralax) 17 gm PO DAILY [facility] Last Admin: 09/15/18 09:18 Dose: 17 gm Sildenafil Citrate (Revatio) 20 mg PO BID [facility] Last Admin: 09/15/18 16:35 Dose: 20 mg - Labs Labs: 09/15/18 05:15 09/15/18 05:15 Attending/Attestation - Attestation I have personally seen and examined this patient.: Yes I have fully participated in the care of the patient.: Yes I have reviewed all pertinent clinical information, including history, physical exam and plan: Yes Notes (Text): 09/15/18 18:04 Medical record note made by the resident after discussion with my direction and input after the patient was personally seen and examined by me. I have reviewed the chart and agree that the record accurately reflects by personal performance of the history, physical exam, data review, and medical decision-making, in the course for the patient. I have also personally directed the plan of care.
[2018-09-14] MEDS: Arformoterol 15 mcg/2 ml Inh Sol IH SCH ×2 (07:53→20:12)
[2018-09-14] MEDS: Budesonide 0.5 mg/2 ml Inhal Susp UD IH SCH ×2 (07:53→20:13)
[2018-09-14] MEDS: POLYETHYLENE GLYCOL 3350 17 GM/Dose PACKET PO SCH ×2 (09:30→09:45)
[2018-09-14] MEDS: Oxycodone/Acetaminophen 5/325 mg Tab PO PRN ×2 (09:43→22:37)
[2018-09-14] MEDS: DEXILANT 60 MG PO SCH (09:45)
[2018-09-14] MEDS: Enoxaparin 40 mg Syringe SC SCH (09:45)
[2018-09-14] MEDS: Lidocaine 5% Patch TD SCH (09:45)
[2018-09-14] MEDS: Sildenafil 20 MG TAB PO SCH ×2 (09:45→17:00)
[2018-09-14] MEDS: Calcium-Vit D 250 mg-125 Units Tab UD PO SCH (09:45)
[2018-09-14] MEDS ORDERED: Denosumab 60 mg/ml Sol(Prolia) SC ONE (10:00)
--- NOTE | 2018-09-14 10:51 | OP ---
PROCEDURE DATE: 09/14/2018 SUBJECTIVE: The patient remains worried this morning about her general status. She is feeling somewhat better. There is no acute shortness of breath, but she does have a heaviness in her chest which has been there for quite sometime. She states that the there are multiple medical problems which are bothering her and she feels threatened by all of these occurring at the same time. Emotionally, she is unable to deal with the multiple problems of her back pain, pulmonary disease and peripheral vascular disease. The patient is known to have pulmonary hypertension and COPD. OBJECTIVE FINDINGS: VITAL SIGNS: Remain stable. The patient is afebrile. Temperature 98.6, heart rate 80, respiratory rate 18, blood pressure 120/70, O2 saturation is 97% on nasal cannula oxygen. HEENT: Normocephalic, atraumatic. NECK: Supple. No jugular venous tension or bruit. No lymphadenopathy in the neck. CARDIOVASCULAR: Regular rhythm. S1, S2. Soft systolic ejection murmur at the lower left sternal border. CHEST: Global decrease in breath sounds. No rales, rhonchi or wheezing appreciated. ABDOMEN: Soft. Bowel sounds normoactive without mass, guarding, rebound or organomegaly. EXTREMITIES: Reveal no clubbing or cyanosis. There is trace edema. There is no Homans sign noted. SKIN: Shows no rash or excoriation. NEUROLOGIC: Exam reveals no focal findings. IMPRESSION: 1. Pulmonary hypertension. 2. End-stage chronic obstructive pulmonary disease. 3. Acute bronchitis, in resolution. 4. Severe compression fractures of L1 with subsequent back pain. 5. Anemia. 6. Coronary artery disease. PLAN: Continue vigorous inhaled bronchodilators and corticosteroids. We will discuss treatment of pulmonary hypertension with Dr. Briggs. Revatio may not be the best medication alone for the treatment of this patient. We will be happy to discuss with you regarding further outpatient care. At this time, however, medication seems to be sufficient. We will discuss with you as required. Thank you for the opportunity to care for this deisy patient. Emotional support is essential in helping her get through this current event. Power William MD [facility] # [id number]
[2018-09-14] MEDS ORDERED: Morphine 2 mg/ml ISec IM PRN (14:35)
[2018-09-15 07:02] LABS: BASO # 0.02 K/mm3 (0.0-2.0); BASO % 0.4 % (0.0-3.0); EOS # 0.4 (0.0-0.7); EOS % 7.9 % (1.5-5.0); GRAN # 3.02 (1.4-6.5); GRAN % 59.5 % (50.0-68.0); HEMOGLOBIN 10.1 g/dL (12.0-16.0); LYMPH # 1.2 (1.2-3.4); LYMPH % 22.6 % (22.0-35.0); MEAN CELL VOLUME 96.7 fl (80.0-105.0); MEAN CORPUSCULAR HEMOGLOBIN 30.7 pg (25.0-35.0); MEAN CORPUSCULAR HGB CONC 31.8 g/dl (31.0-37.0); MEAN PLATELET VOLUME 10.8 fl (7.0-11.0); MONO # 0.5 (0.1-0.6); MONO % 9.6 % (1.0-6.0); RBC 3.29 10^6/uL (3.5-6.1); RED CELL DISTRIBUTION WIDTH 12.8 % (11.5-14.5); WHITE BLOOD COUNT 5.1 10^3/uL (4.5-11.0)
--- NOTE | 2018-09-15 07:23 | CP.PCM.PN ---
<Bouchra Virk L - Last Filed: 09/15/18 15:16> Subjective - Date & Time of Evaluation Date of Evaluation: 09/15/18 Time of Evaluation: 07:22 - Subjective Subjective: Resident Progress Note for Hospitalist Service Patient examined at bedside. No acute events overnight. Patient reports improvement in abdominal pain with placement of soft brace. She reports to daily normal bowel movements. Her back pain is unchanged. Denies fevers, chills, chest pain, shortness of breath, diarrhea, dysuria. Objective - Vital Signs/Intake and Output Vital Signs (last 24 hours): Temp Pulse Resp BP Pulse Ox 98.1 F 89 18 127/72 98 09/14/18 23:18 09/14/18 23:18 09/14/18 23:18 09/14/18 23:18 09/14/18 23:18 Intake and Output: 09/15/18 09/15/18 06:59 18:59 Intake Total 540 Balance 540 - Medications Medications: Current Medications Albuterol/Ipratropium (Duoneb 3 Mg/0.5 Mg (3 Ml) Ud) 3 ml IH [id number] PRN PRN Reason: Shortness of Breath Alprazolam (Xanax) 0.25 mg PO BID PRN; Protocol PRN Reason: Anxiety Stop: 09/17/18 18:01 Last Admin: 09/11/18 22:56 Dose: 0.25 mg Arformoterol Tartrate (Brovana) 15 mcg IH [id number] [facility] Last Admin: 09/14/18 20:12 Dose: 15 mcg Aspirin (Aspirin Chewable) 81 mg PO DAILY [facility] Last Admin: 09/14/18 09:44 Dose: 81 mg Atorvastatin Calcium (Lipitor) 10 mg PO DIN [facility] Last Admin: 09/14/18 17:00 Dose: 10 mg Budesonide (Pulmicort Respules) 0.5 mg IH [id number] [facility] Last Admin: 09/14/18 20:13 Dose: 0.5 mg Calcium/Vitamin D (Oscal-D 250 Mg-125 Units Tab) 1 tab PO DAILY [facility] Last Admin: 09/14/18 09:45 Dose: 1 tab Docusate Sodium (Colace) 100 mg PO Q8 [facility] Last Admin: 09/14/18 22:05 Dose: 100 mg Enoxaparin Sodium (Lovenox) 40 mg SC DAILY [facility]; Protocol Last Admin: 09/14/18 09:45 Dose: 40 mg Ferrous Sulfate (Feosol) 324 mg PO DAILY [facility] Last Admin: 09/14/18 09:44 Dose: 324 mg Home Med (Home Med) 1 unit PO DAILY [facility] Last Admin: 09/14/18 09:45 Dose: 1 unit Ketorolac Tromethamine (Toradol) 15 mg IVP Q6H PRN PRN Reason: Pain, moderate (4-7) Lidocaine (Lidoderm) 1 ea TD DAILY [facility] Last Admin: 09/14/18 09:45 Dose: 1 ea Morphine Sulfate (Morphine) 1 mg IM Q4H PRN PRN Reason: Pain, severe (8-10) Ondansetron HCl (Zofran Inj) 4 mg IVP Q6H PRN PRN Reason: Nausea/Vomiting Oxycodone/Acetaminophen (Percocet 5/325 Mg Tab) 1 tab PO Q6H PRN PRN Reason: Pain, severe (8-10) Stop: 09/16/18 11:25 Last Admin: 09/14/18 22:37 Dose: 1 tab Polyethylene Glycol (Miralax) 17 gm PO DAILY [facility] Last Admin: 09/14/18 09:30 Dose: Not Given Sildenafil Citrate (Revatio) 20 mg PO BID [facility] Last Admin: 09/14/18 17:00 Dose: 20 mg - Labs Labs: 09/15/18 05:15 09/13/18 13:00 - Additional Findings Additional findings: - Constitutional Appears: Non-toxic, No Acute Distress - Head Exam Head Exam: ATRAUMATIC, NORMOCEPHALIC - Eye Exam Eye Exam: EOMI, Normal appearance - Neck Exam Neck exam: Positive for: Normal Inspection. Negative for: Lymphadenopathy, Thyromegaly - Respiratory Exam Respiratory Exam: Clear to Auscultation Bilateral, Wheezes, NORMAL BREATHING PATTERN. absent: Accessory Muscle Use, Rales, Rhonchi, Respiratory Distress - Cardiovascular Exam Cardiovascular Exam: REGULAR RHYTHM, +S1. absent: Gallop, Systolic Murmur - GI/Abdominal Exam GI & Abdominal Exam: Soft. absent: Distended, Rebound, Tenderness Additional comments: minimal left quadrant tenderness appreciated ventral hernia midline surgical scar - Extremities Exam Extremities exam: Positive for: normal capillary refill, pedal edema, pedal pulses present - Back Exam Back exam: muscle spasm, vertebral tenderness (mid to low thoracic), no motor or sensory deficits appreciated. Spinal tenderness appreciated in lumbar spine - Neurological Exam Neurological exam: Alert, CN II-XII Intact, Oriented x3 - Skin Skin Exam: Dry, Intact, Normal Color Assessment and Plan - Assessment and Plan (Free Text) Assessment: Patient is an 83 year old female with past medical history of CHF, T2DM, HLD, COPD on home O2, pulmonary HTN, urinary incontinence presenting with back pain, abdominal pain and cough. Plan: Chronic back pain - Percocet 5/325mg q6 - Morphine 1 mg IM Q4H PRN - 09/[address] shows no acute pathology - 09/10 abd/pelvis CT shows new compression deformity L1 vertebral body, evidence of prior kyphoplasty L1, compression deformities L2 and L5, profound osteopenia - no indication for kyphoplasty as per IR - flexeril 5mg TID, lidoderm patch, toradol 30mg Q6H PRN - PT/OT eval recommend AVIVA. Patient refuses rehab at this time - pain management consulted. Appreciate recs. - followup lumbar spine MRI Abdominal pain - improved - no intervention at this time for ventral hernia as per surgery recs - CT A/P shows constipation without fecal impaction or obstruction - superimposed opioid induced constipation present - continue colace, miralax PRN Cough - improved - afebrile, no leukocytosis - 09/10 CXR shows no active disease - continue duonebs, Brovana - UCx, BCx neg x2 - procal low, flu negative - Pulmonology on consult Pulmonary HTN - home Revatio HLD - home Lipitor PPX - dexilant, lovenox Case discussed with Dr. Lorie Virk PGY-1 <Blaine Melo - Last Filed: 09/15/18 18:04> Objective - Vital Signs/Intake and Output Vital Signs (last 24 hours): Temp Pulse Resp BP Pulse Ox 98.1 F 87 20 126/63 99 09/15/18 06:00 09/15/18 06:00 09/15/18 06:00 09/15/18 06:00 09/15/18 06:00 Intake and Output: 09/15/18 09/15/18 06:59 18:59 Intake Total 540 Balance 540 - Medications Medications: Current Medications Albuterol/Ipratropium (Duoneb 3 Mg/0.5 Mg (3 Ml) Ud) 3 ml IH [id number] PRN PRN Reason: Shortness of Breath Alprazolam (Xanax) 0.25 mg PO BID PRN; Protocol PRN Reason: Anxiety Stop: 09/17/18 18:01 Last Admin: 09/15/18 13:12 Dose: 0.25 mg Arformoterol Tartrate (Brovana) 15 mcg IH [id number] [facility] Last Admin: 09/15/18 08:11 Dose: 15 mcg Aspirin (Aspirin Chewable) 81 mg PO DAILY [facility] Last Admin: 09/15/18 09:18 Dose: 81 mg Atorvastatin Calcium (Lipitor) 10 mg PO DIN [facility] Last Admin: 09/15/18 16:35 Dose: 10 mg Budesonide (Pulmicort Respules) 0.5 mg IH [id number] [facility] Last Admin: 09/15/18 08:11 Dose: 0.5 mg Calcium/Vitamin D (Oscal-D 250 Mg-125 Units Tab) 1 tab PO DAILY [facility] Last Admin: 09/15/18 11:00 Dose: 1 tab Docusate Sodium (Colace) 100 mg PO Q8 [facility] Last Admin: 09/15/18 13:12 Dose: 100 mg Enoxaparin Sodium (Lovenox) 40 mg SC DAILY [facility]; Protocol Last Admin: 09/15/18 09:17 Dose: 40 mg Ferrous Sulfate (Feosol) 324 mg PO DAILY [facility] Last Admin: 09/15/18 09:18 Dose: 324 mg Home Med (Home Med) 1 unit PO DAILY [facility] Last Admin: 09/15/18 10:59 Dose: 1 unit Ketorolac Tromethamine (Toradol) 15 mg IVP Q6H PRN PRN Reason: Pain, moderate (4-7) Last Admin: 09/15/18 13:18 Dose: 15 mg Lidocaine (Lidoderm) 1 ea TD DAILY [facility] Last Admin: 09/15/18 11:00 Dose: 1 ea Morphine Sulfate (Morphine) 1 mg IM Q4H PRN PRN Reason: Pain, severe (8-10) Ondansetron HCl (Zofran Inj) 4 mg IVP Q6H PRN PRN Reason: Nausea/Vomiting Oxycodone/Acetaminophen (Percocet 5/325 Mg Tab) 1 tab PO Q6H PRN PRN Reason: Pain, severe (8-10) Stop: 09/16/18 11:25 Last Admin: 09/15/18 09:18 Dose: 1 tab Polyethylene Glycol (Miralax) 17 gm PO DAILY [facility] Last Admin: 09/15/18 09:18 Dose: 17 gm Sildenafil Citrate (Revatio) 20 mg PO BID [facility] Last Admin: 09/15/18 16:35 Dose: 20 mg - Labs Labs: 09/15/18 05:15 09/15/18 05:15 Attending/Attestation - Attestation I have personally seen and examined this patient.: Yes I have fully participated in the care of the patient.: Yes I have reviewed all pertinent clinical information, including history, physical exam and plan: Yes Notes (Text): 09/15/18 18:01 Medical record note made by the resident after discussion with my direction and input after the patient was personally seen and examined by me. I have reviewed the chart and agree that the record accurately reflects by personal performance of the history, physical exam, data review, and medical decision-making, in the course for the patient. I have also personally directed the plan of care. 83 year old female with past medical history of COPD, diabetes, pulmonary hypertension, abdominal hernia and history of kyphoplasty who presented with complaint of back pain, abdominal pain, cough and difficulty ambulating. CT abd/pelvis showed constipation without fecal impaction or obstruction. CT spine showed new compression deformity L1 vertebral body, evidence of prior kyphoplasty, compression deformities L2 and L5 and profound osteopenia.Patient is still having lot of pain, pain increase with movement.Patient mobility is limited due to pain. IR evaluation is noted; no plan for kyphoplasty at this time. MRI of lumber spine today showed multiple compression fracture, there is no neurological deficit. Mobility is limited due to pain.We will get Neuro surgery evaluation. Constipation has improved with colace, miralax and dulcolax suppository. Surgery evaluation was appreciated for abdominal hernia; no plan for intervention at this time. COPD is improved.Patient is not wheezing. Prognosis is guarded.Patient is high risk for fall.
[2018-09-15 07:48] LABS: ALB/GLOB RATIO 1.3 (1.1-1.8); ALBUMIN 3.1 g/dL (3.0-4.8); ALT/SGPT 27 U/L (7-56); AST/SGOT 20 U/L (14-36); BLOOD UREA NITROGEN 28 mg/dL (7-21); GFR NON-AFRICAN AMERICAN > 60
[2018-09-15] MEDS: Arformoterol 15 mcg/2 ml Inh Sol IH SCH ×2 (08:11→19:48)
[2018-09-15] MEDS: Budesonide 0.5 mg/2 ml Inhal Susp UD IH SCH ×2 (08:11→19:48)
[2018-09-15] MEDS: Enoxaparin 40 mg Syringe SC SCH (09:17)
[2018-09-15] MEDS: Oxycodone/Acetaminophen 5/325 mg Tab PO PRN (09:18)
[2018-09-15] MEDS: POLYETHYLENE GLYCOL 3350 17 GM/Dose PACKET PO SCH (09:18)
[2018-09-15] MEDS: Sildenafil 20 MG TAB PO SCH ×2 (09:18→16:35)
[2018-09-15] MEDS: DEXILANT 60 MG PO SCH (10:59)
[2018-09-15] MEDS: Calcium-Vit D 250 mg-125 Units Tab UD PO SCH (11:00)
[2018-09-15] MEDS: Lidocaine 5% Patch TD SCH (11:00)
--- NOTE | 2018-09-15 11:39 | PN ---
DATE: 09/15/2018 PULMONARY PROGRESS NOTE SUBJECTIVE: The patient was seen and examined at bedside. She is sitting on the edge of her bed. She is not in any acute distress. She states that she feels more comfortable this morning with less shortness of breath and less cough. She is receiving sildenafil twice a day for her pulmonary hypertension and she is also on inhalation therapy with DuoNeb, budesonide, and Brovana. PHYSICAL EXAMINATION: VITAL SIGNS: Temperature 98.6, heart rate 84, respirations 20, blood pressure 110/70, oxygen saturation is 97 on nasal cannula. HEENT: Head is normocephalic, atraumatic. CARDIOVASCULAR: S1 and S2. No S3. Regular. PULMONARY: Diminished breath sounds at both lung bases. GASTROINTESTINAL: Soft and nontender. No organomegaly. EXTREMITIES: No pedal edema. No cyanosis. SKIN: No acute skin rash. NEUROLOGIC: No focal deficits. ASSESSMENT: 1. Exacerbation of severe chronic obstructive pulmonary disease. 2. Pulmonary hypertension. 3. Acute bronchitis. PLAN: We will continue with current administration of sildenafil for pulmonary hypertension as well as nebulizer treatment as per orders. Attempts to mobilize secretions should be limited at this point. The patient should be ambulating and overall there is an improvement. Juan Whiteheda MD
[2018-09-15] MEDS ORDERED: Gadodiamide 287 MG/ML VIAL (15ML) IV ONE (14:00)
--- NOTE | 2018-09-15 15:36 | MRI ---
Date of service: 09/15/2018 PROCEDURE: MR LUMBAR SPINE WITH AND WITHOUT CONTRAST HISTORY: fracture COMPARISON: 10/12/2017 MRI TECHNIQUE: Multiecho multiplanar sequences were performed through the lumbar spine with and without the use of intravenous contrast. 15 cc of Omniscan FINDINGS: Normal lumbar lordosis. The previous study showed an acute fracture at the T12 level which was treated with vertebroplasty. There is an acute compression fracture of T10 with extensive marrow edema. There is only minimal loss of vertebral height. There is a moderate compression deformity of L1. There is some enhancement along the superior endplate consistent with an acute or subacute event. The remainder of the vertebral body shows a normal marrow signal intensity. There is an acute compression fracture of L4 with severe loss of vertebral height and compression of the superior endplate. There is marrow edema throughout the L4 vertebral body. Conus medullaris unremarkable at the level of T12 There is moderate central stenosis at the L3-4 level In addition to marrow edema there enhancement of the T10 and L4 vertebral bodies. OTHER FINDINGS: None. IMPRESSION: Multiple compression fractures as described above
--- NOTE | 2018-09-15 20:19 | CP.PCM.PN ---
Subjective - Date & Time of Evaluation Date of Evaluation: 09/15/18 Time of Evaluation: 20:19 - Subjective Subjective: reviewed MRI Multiple compression fractures there is acute/subacute L4, l1 and T10 comp fractures prior t12 verteroplasty L3/4 stenosis The pathology is too great and the osteoporosis too extensive to consider fusion/stabilization Decompression for stenosis contraindicated due to the mult fractures and would leave her unstable Consider kyphoplasty and conservative pain management Objective - Vital Signs/Intake and Output Vital Signs (last 24 hours): Temp Pulse Resp BP Pulse Ox 98.1 F 87 20 126/63 99 09/15/18 06:00 09/15/18 06:00 09/15/18 06:00 09/15/18 06:00 09/15/18 06:00 - Medications Medications: Current Medications Albuterol/Ipratropium (Duoneb 3 Mg/0.5 Mg (3 Ml) Ud) 3 ml IH [id number] PRN PRN Reason: Shortness of Breath Alprazolam (Xanax) 0.25 mg PO BID PRN; Protocol PRN Reason: Anxiety Stop: 09/17/18 18:01 Last Admin: 09/15/18 13:12 Dose: 0.25 mg Arformoterol Tartrate (Brovana) 15 mcg IH [id number] [facility] Last Admin: 09/15/18 19:48 Dose: 15 mcg Aspirin (Aspirin Chewable) 81 mg PO DAILY [facility] Last Admin: 09/15/18 09:18 Dose: 81 mg Atorvastatin Calcium (Lipitor) 10 mg PO DIN [facility] Last Admin: 09/15/18 16:35 Dose: 10 mg Budesonide (Pulmicort Respules) 0.5 mg IH [id number] [facility] Last Admin: 09/15/18 19:48 Dose: 0.5 mg Calcium/Vitamin D (Oscal-D 250 Mg-125 Units Tab) 1 tab PO DAILY [facility] Last Admin: 09/15/18 11:00 Dose: 1 tab Docusate Sodium (Colace) 100 mg PO Q8 [facility] Last Admin: 09/15/18 13:12 Dose: 100 mg Enoxaparin Sodium (Lovenox) 40 mg SC DAILY [facility]; Protocol Last Admin: 09/15/18 09:17 Dose: 40 mg Ferrous Sulfate (Feosol) 324 mg PO DAILY [facility] Last Admin: 09/15/18 09:18 Dose: 324 mg Home Med (Home Med) 1 unit PO DAILY [facility] Last Admin: 09/15/18 10:59 Dose: 1 unit Ketorolac Tromethamine (Toradol) 15 mg IVP Q6H PRN PRN Reason: Pain, moderate (4-7) Last Admin: 09/15/18 13:18 Dose: 15 mg Lidocaine (Lidoderm) 1 ea TD DAILY [facility] Last Admin: 09/15/18 11:00 Dose: 1 ea Morphine Sulfate (Morphine) 1 mg IM Q4H PRN PRN Reason: Pain, severe (8-10) Ondansetron HCl (Zofran Inj) 4 mg IVP Q6H PRN PRN Reason: Nausea/Vomiting Oxycodone/Acetaminophen (Percocet 5/325 Mg Tab) 1 tab PO Q6H PRN PRN Reason: Pain, severe (8-10) Stop: 09/16/18 11:25 Last Admin: 09/15/18 09:18 Dose: 1 tab Polyethylene Glycol (Miralax) 17 gm PO DAILY [facility] Last Admin: 09/15/18 09:18 Dose: 17 gm Sildenafil Citrate (Revatio) 20 mg PO BID [facility] Last Admin: 09/15/18 16:35 Dose: 20 mg - Labs Labs: 09/15/18 05:15 09/15/18 05:15
[2018-09-16] MEDS: Oxycodone/Acetaminophen 5/325 mg Tab PO PRN ×4 (03:36→23:45)
[2018-09-16 06:58] LABS: BASO # 0.01 K/mm3 (0.0-2.0); BASO % 0.2 % (0.0-3.0); EOS # 0.5 (0.0-0.7); EOS % 7.6 % (1.5-5.0); GRAN # 3.94 (1.4-6.5); HEMOGLOBIN 9.6 g/dL (12.0-16.0); LYMPH # 1.1 (1.2-3.4); LYMPH % 18.6 % (22.0-35.0); MEAN CELL VOLUME 95.9 fl (80.0-105.0); MEAN CORPUSCULAR HEMOGLOBIN 30.6 pg (25.0-35.0); MEAN CORPUSCULAR HGB CONC 31.9 g/dl (31.0-37.0); MEAN PLATELET VOLUME 10.7 fl (7.0-11.0); MONO # 0.5 (0.1-0.6); MONO % 7.6 % (1.0-6.0); RBC 3.14 10^6/uL (3.5-6.1); RED CELL DISTRIBUTION WIDTH 12.6 % (11.5-14.5)
[2018-09-16 07:01] LABS: ALB/GLOB RATIO 1.3 (1.1-1.8); ALBUMIN 2.9 g/dL (3.0-4.8); ALT/SGPT 23 U/L (7-56); AST/SGOT 17 U/L (14-36); BLOOD UREA NITROGEN 32 mg/dL (7-21); CALCIUM 8.8 mg/dL (8.4-10.5); GFR NON-AFRICAN AMERICAN > 60
[2018-09-16] MEDS: Arformoterol 15 mcg/2 ml Inh Sol IH SCH ×2 (07:38→20:18)
[2018-09-16] MEDS: Budesonide 0.5 mg/2 ml Inhal Susp UD IH SCH ×2 (07:38→20:18)
[2018-09-16] MEDS: Calcium-Vit D 250 mg-125 Units Tab UD PO SCH (10:17)
[2018-09-16] MEDS: Sildenafil 20 MG TAB PO SCH ×2 (10:17→17:06)
[2018-09-16] MEDS: Lidocaine 5% Patch TD SCH (10:18)
[2018-09-16] MEDS: POLYETHYLENE GLYCOL 3350 17 GM/Dose PACKET PO SCH (10:19)
[2018-09-16] MEDS: Enoxaparin 40 mg Syringe SC SCH (10:19)
[2018-09-16] MEDS: DEXILANT 60 MG PO SCH (10:31)
--- NOTE | 2018-09-16 11:55 | CP.PCM.PN ---
<Kam Galvez - Last Filed: 09/16/18 12:03> Subjective - Date & Time of Evaluation Date of Evaluation: 09/16/18 Time of Evaluation: 11:49 - Subjective Subjective: Kam Galvez DO, PGY-2: Hospitalist Progress Note for Dr. Keating Patient was seen and examined at bedside. Patient reports having pain in right lower rib cage. We encouraged her to change position when lying in bed. We discussed the results of the Lumbar MRI and that neurosurgery recommends kyphoplasty and/or conservative management. Otherwise, no new complaints noted today. We informed patient that September 20 is the day that the IR Dr. Harrison Blackburn is returning, to our knowledge. Objective - Vital Signs/Intake and Output Vital Signs (last 24 hours): Temp Pulse Resp BP Pulse Ox 98.2 F 82 16 115/63 100 09/16/18 07:00 09/16/18 07:00 09/16/18 07:00 09/16/18 07:00 09/16/18 07:00 Intake and Output: 09/16/18 09/16/18 06:59 18:59 Intake Total 240 Balance 240 - Medications Medications: Current Medications Albuterol/Ipratropium (Duoneb 3 Mg/0.5 Mg (3 Ml) Ud) 3 ml IH [id number] PRN PRN Reason: Shortness of Breath Alprazolam (Xanax) 0.25 mg PO BID PRN; Protocol PRN Reason: Anxiety Stop: 09/17/18 18:01 Last Admin: 09/15/18 13:12 Dose: 0.25 mg Arformoterol Tartrate (Brovana) 15 mcg IH [id number] [facility] Last Admin: 09/16/18 07:38 Dose: 15 mcg Aspirin (Aspirin Chewable) 81 mg PO DAILY [facility] Last Admin: 09/16/18 10:17 Dose: 81 mg Atorvastatin Calcium (Lipitor) 10 mg PO DIN [facility] Last Admin: 09/15/18 16:35 Dose: 10 mg Budesonide (Pulmicort Respules) 0.5 mg IH [id number] [facility] Last Admin: 09/16/18 07:38 Dose: 0.5 mg Calcium/Vitamin D (Oscal-D 250 Mg-125 Units Tab) 1 tab PO DAILY [facility] Last Admin: 09/16/18 10:17 Dose: 1 tab Docusate Sodium (Colace) 100 mg PO Q8 [facility] Last Admin: 09/16/18 06:06 Dose: Not Given Enoxaparin Sodium (Lovenox) 40 mg SC DAILY [facility]; Protocol Last Admin: 09/16/18 10:19 Dose: 40 mg Ferrous Sulfate (Feosol) 324 mg PO DAILY [facility] Last Admin: 09/16/18 10:17 Dose: 324 mg Home Med (Home Med) 1 unit PO DAILY [facility] Last Admin: 09/16/18 10:31 Dose: 1 unit Ketorolac Tromethamine (Toradol) 15 mg IVP Q6H PRN PRN Reason: Pain, moderate (4-7) Last Admin: 09/15/18 13:18 Dose: 15 mg Lidocaine (Lidoderm) 1 ea TD DAILY [facility] Last Admin: 09/16/18 10:18 Dose: 1 ea Morphine Sulfate (Morphine) 1 mg IM Q4H PRN PRN Reason: Pain, severe (8-10) Ondansetron HCl (Zofran Inj) 4 mg IVP Q6H PRN PRN Reason: Nausea/Vomiting Polyethylene Glycol (Miralax) 17 gm PO DAILY [facility] Last Admin: 09/16/18 10:19 Dose: 17 gm Sildenafil Citrate (Revatio) 20 mg PO BID [facility] Last Admin: 09/16/18 10:17 Dose: 20 mg - Labs Labs: 09/16/18 06:00 09/16/18 06:00 - Constitutional Appears: No Acute Distress, Cachectic - Head Exam Head Exam: ATRAUMATIC, NORMOCEPHALIC - Eye Exam Eye Exam: EOMI, Normal appearance - ENT Exam ENT Exam: Mucous Membranes Moist, Normal Oropharynx - Neck Exam Neck Exam: Normal Inspection - Respiratory Exam Respiratory Exam: Clear to Ausculation Bilateral, NORMAL BREATHING PATTERN. absent: Accessory Muscle Use - Cardiovascular Exam Cardiovascular Exam: RRR, +S1, +S2 - GI/Abdominal Exam GI & Abdominal Exam: Soft, Normal Bowel Sounds. absent: Guarding, Rebound - Extremities Exam Extremities Exam: Normal Inspection. absent: Calf Tenderness - Back Exam Back Exam: vertebral tenderness (lumbar spine). absent: CVA tenderness (L), CVA tenderness (R) - Neurological Exam Neurological Exam: Alert, Awake, Oriented x3 - Psychiatric Exam Psychiatric exam: Normal Affect, Normal Mood - Skin Skin Exam: Dry, Intact, Normal Color, Warm Assessment and Plan - Assessment and Plan (Free Text) Assessment: Patient is an 83 year old female with past medical history of CHF, T2DM, HLD, COPD on home O2, pulmonary HTN, urinary incontinence presenting with back pain, abdominal pain and cough. Plan: Chronic back pain - Percocet 5/325mg q6 - Morphine 1 mg IM Q4H PRN - 09/[address] shows no acute pathology - 09/10 abd/pelvis CT shows new compression deformity L1 vertebral body, evidence of prior kyphoplasty L1, compression deformities L2 and L5, profound osteopenia. - no indication for kyphoplasty as per IR - flexeril 5mg TID, lidoderm patch, toradol 30mg Q6H PRN - PT/OT eval recommend [facility]. Patient refuses rehab at this time - pain management consulted. Appreciate recs. - MRI of Lumbar spine shows Normal lumbar lordosis. The previous study showed an acute fracture at the T12 level which was treated with vertebroplasty. There is an acute compression fracture of T10 with extensive marrow edema. There is only minimal loss of vertebral height. There is a moderate compression deformity of L1. There is some enhancement along the superior endplate consistent with an acute or subacute event. The remainder of the vertebral body shows a normal marrow signal intensity. There is an acute compression fracture of L4 with severe loss of vertebral height and compression of the superior endplate. There is marrow edema throughout the L4 vertebral body. Conus medullaris unremarkable at the level of T12. There is moderate central stenosis at the L3-4 level. In addition to marrow edema there enhancement of the T10 and L4 vertebral bodies. Dr. Muniz IR needs to re-addressed in this regard as Dr. Blackburn will not be back until September 20, 2018, next year in fact. - Neurosurgery states the pathology is too great and the osteoporosis too extensive to consider fusion/stabilization. Decompression for stenosis contraindicated due to the mult fractures and would leave her unstable. Consider kyphoplasty and conservative pain management. Abdominal pain - improved - no intervention at this time for ventral hernia as per surgery recs - CT A/P shows constipation without fecal impaction or obstruction - superimposed opioid induced constipation present - continue colace, miralax PRN Cough - improved - afebrile, no leukocytosis - 09/10 CXR shows no active disease - continue duonebs, Brovana - UCx, BCx neg x2 - procal low, flu negative - Pulmonology on consult Pulmonary HTN - home Revatio HLD - home Lipitor PPX - dexilant, lovenox Case discussed with <Meme Keating - Last Filed: 09/16/18 16:50> Objective - Vital Signs/Intake and Output Vital Signs (last 24 hours): Temp Pulse Resp BP Pulse Ox 98.2 F 87 18 99/53 L 99 09/16/18 14:00 09/16/18 14:00 09/16/18 14:00 09/16/18 14:00 09/16/18 14:00 Intake and Output: 09/16/18 09/16/18 06:59 18:59 Intake Total 240 Balance 240 - Medications Medications: Current Medications Albuterol/Ipratropium (Duoneb 3 Mg/0.5 Mg (3 Ml) Ud) 3 ml IH [id number] PRN PRN Reason: Shortness of Breath Alprazolam (Xanax) 0.25 mg PO BID PRN; Protocol PRN Reason: Anxiety Stop: 09/17/18 18:01 Last Admin: 09/15/18 13:12 Dose: 0.25 mg Arformoterol Tartrate (Brovana) 15 mcg IH [id number] [facility] Last Admin: 09/16/18 07:38 Dose: 15 mcg Aspirin (Aspirin Chewable) 81 mg PO DAILY [facility] Last Admin: 09/16/18 10:17 Dose: 81 mg Atorvastatin Calcium (Lipitor) 10 mg PO DIN [facility] Last Admin: 09/15/18 16:35 Dose: 10 mg Budesonide (Pulmicort Respules) 0.5 mg IH [id number] [facility] Last Admin: 09/16/18 07:38 Dose: 0.5 mg Calcium/Vitamin D (Oscal-D 250 Mg-125 Units Tab) 1 tab PO DAILY [facility] Last Admin: 09/16/18 10:17 Dose: 1 tab Docusate Sodium (Colace) 100 mg PO Q8 [facility] Last Admin: 09/16/18 14:54 Dose: 100 mg Enoxaparin Sodium (Lovenox) 40 mg SC DAILY [facility]; Protocol Last Admin: 09/16/18 10:19 Dose: 40 mg Ferrous Sulfate (Feosol) 324 mg PO DAILY [facility] Last Admin: 09/16/18 10:17 Dose: 324 mg Home Med (Home Med) 1 unit PO DAILY [facility] Last Admin: 09/16/18 10:31 Dose: 1 unit Ketorolac Tromethamine (Toradol) 15 mg IVP Q6H PRN PRN Reason: Pain, moderate (4-7) Last Admin: 09/15/18 13:18 Dose: 15 mg Lidocaine (Lidoderm) 1 ea TD DAILY [facility] Last Admin: 09/16/18 10:18 Dose: 1 ea Morphine Sulfate (Morphine) 1 mg IM Q4H PRN PRN Reason: Pain, severe (8-10) Ondansetron HCl (Zofran Inj) 4 mg IVP Q6H PRN PRN Reason: Nausea/Vomiting Polyethylene Glycol (Miralax) 17 gm PO DAILY [facility] Last Admin: 09/16/18 10:19 Dose: 17 gm Sildenafil Citrate (Revatio) 20 mg PO BID [facility] Last Admin: 09/16/18 10:17 Dose: 20 mg - Labs Labs: 09/16/18 06:00 09/16/18 06:00 Attending/Attestation - Attestation I have personally seen and examined this patient.: Yes I have fully participated in the care of the patient.: Yes I have reviewed all pertinent clinical information, including history, physical exam and plan: Yes Notes (Text): 09/16/18 16:46 83 year old female with past medical history of COPD, diabetes, pulmonary hypertension, abdominal hernia and history of kyphoplasty who presented with complaint of back pain, abdominal pain, cough and difficulty ambulating. CT abd/pelvis showed constipation without fecal impaction or obstruction. CT spine showed new compression deformity L1 vertebral body, evidence of prior kyphoplasty, compression deformities L2 and L5 and profound osteopenia. Patient is on percocet, lidoderm patch and toradol for pain. Still complains of significant pain with limited mobility due to pain. MRI lumbar spine reviewed showing multiple compression fractures. Neurosurgery evaluation appreciated; recommended conservative management and possible kyphoplasty. Will request for IR re-evaluation this coming week. Continue with PT as tolerated. Constipation has improved with colace, miralax and dulcolax suppository. Surgery evaluation was appreciated for abdominal hernia; no plan for intervention at this time. COPD has improved. Pulmonary is following. Meme Keating MD Hospitalist.
--- NOTE | 2018-09-16 17:11 | PN ---
DATE: 09/16/2018 PULMONARY PROGRESS NOTE SUBJECTIVE: Patient was seen and examined sitting in bed. She is not in acute distress. PHYSICAL EXAMINATION: VITAL SIGNS: Her temperature is 98.4, blood pressure is 110/70, respirations 20. HEENT: Head, normocephalic and atraumatic. CARDIOVASCULAR: S1 and S2. No S3 regular. PULMONARY: Diminished breath sounds bilaterally with no rhonchi, rales or wheezing. GI: Soft and nontender. No organomegaly. EXTREMITIES: No pedal edema. No cyanosis. SKIN: No acute skin rash. NEUROLOGIC: No focal deficits. ASSESSMENT: 1. Exacerbation of chronic obstructive pulmonary disease, markedly improved. 2. Pulmonary hypertension. 3. Resolving acute bronchitis. PLAN: Patient is continuing with his nebulizer treatment as well as sildenafil for her pulmonary hypertension. She can start ambulating, overall, the pain and movement limits her mobility. She had x-rays of the spine to rule out compression fracture. Overall, she has improved. Discharge planning is in progress. Juan Whitehead MD
[2018-09-17] MEDS: Budesonide 0.5 mg/2 ml Inhal Susp UD IH SCH ×2 (07:33→19:32)
[2018-09-17] MEDS: Arformoterol 15 mcg/2 ml Inh Sol IH SCH ×2 (07:33→19:32)
[2018-09-17 08:43] LABS: BASO # 0.02 K/mm3 (0.0-2.0); BASO % 0.4 % (0.0-3.0); EOS # 0.3 (0.0-0.7); EOS % 6.4 % (1.5-5.0); GRAN # 3.04 (1.4-6.5); GRAN % 57.6 % (50.0-68.0); HEMOGLOBIN 11.4 g/dL (12.0-16.0); LYMPH # 1.5 (1.2-3.4); LYMPH % 28.6 % (22.0-35.0); MEAN CELL VOLUME 97.8 fl (80.0-105.0); MEAN CORPUSCULAR HEMOGLOBIN 30.9 pg (25.0-35.0); MEAN CORPUSCULAR HGB CONC 31.6 g/dl (31.0-37.0); MEAN PLATELET VOLUME 10.4 fl (7.0-11.0); MONO # 0.4 (0.1-0.6); RBC 3.69 10^6/uL (3.5-6.1); RED CELL DISTRIBUTION WIDTH 12.6 % (11.5-14.5); WHITE BLOOD COUNT 5.3 10^3/uL (4.5-11.0)
[2018-09-17 08:55] LABS: ALB/GLOB RATIO 1.4 (1.1-1.8); ALBUMIN 3.6 g/dL (3.0-4.8); ALT/SGPT 27 U/L (7-56); AST/SGOT 19 U/L (14-36); BLOOD UREA NITROGEN 28 mg/dL (7-21); CALCIUM 9.4 mg/dL (8.4-10.5); GFR NON-AFRICAN AMERICAN > 60
[2018-09-17] MEDS: Calcium-Vit D 250 mg-125 Units Tab UD PO SCH (09:42)
[2018-09-17] MEDS: Enoxaparin 40 mg Syringe SC SCH (09:42)
[2018-09-17] MEDS: Sildenafil 20 MG TAB PO SCH ×2 (09:42→17:45)
[2018-09-17] MEDS: POLYETHYLENE GLYCOL 3350 17 GM/Dose PACKET PO SCH (09:46)
[2018-09-17] MEDS: Oxycodone/Acetaminophen 5/325 mg Tab PO PRN ×2 (09:49→17:55)
[2018-09-17] MEDS: Lidocaine 5% Patch TD SCH (09:50)
[2018-09-17] MEDS: DEXILANT 60 MG PO SCH (10:11)
--- NOTE | 2018-09-17 12:08 | CP.PCM.PN ---
<Jocelyn Ruiz - Last Filed: 09/17/18 11:48> Subjective - Date & Time of Evaluation Date of Evaluation: 09/17/18 Time of Evaluation: 09:16 - Subjective Subjective: Jocelyn Ruiz PGY1 Hospital Progress Note Patient seen and examined at bedside this morning. No acute events reported overnight. Receiving percocet for back pain. Patient refusing kyphoplasty evaluation. Offers no new complaints today. Objective - Vital Signs/Intake and Output Vital Signs (last 24 hours): Temp Pulse Resp BP Pulse Ox 97.4 F L 79 18 131/69 99 09/17/18 06:00 09/17/18 06:00 09/17/18 06:00 09/17/18 06:00 09/17/18 06:00 Intake and Output: 09/17/18 09/17/18 06:59 18:59 Intake Total 780 Balance 780 - Medications Medications: Current Medications Albuterol/Ipratropium (Duoneb 3 Mg/0.5 Mg (3 Ml) Ud) 3 ml IH [id number] PRN PRN Reason: Shortness of Breath Last Admin: 09/17/18 07:33 Dose: 3 ml Alprazolam (Xanax) 0.25 mg PO BID PRN; Protocol PRN Reason: Anxiety Stop: 09/17/18 18:01 Last Admin: 09/15/18 13:12 Dose: 0.25 mg Arformoterol Tartrate (Brovana) 15 mcg IH [id number] [facility] Last Admin: 09/17/18 07:33 Dose: 15 mcg Aspirin (Aspirin Chewable) 81 mg PO DAILY [facility] Last Admin: 09/17/18 09:42 Dose: 81 mg Atorvastatin Calcium (Lipitor) 10 mg PO DIN [facility] Last Admin: 09/16/18 17:06 Dose: 10 mg Budesonide (Pulmicort Respules) 0.5 mg IH [id number] [facility] Last Admin: 09/17/18 07:33 Dose: 0.5 mg Calcium/Vitamin D (Oscal-D 250 Mg-125 Units Tab) 1 tab PO DAILY [facility] Last Admin: 09/17/18 09:42 Dose: 1 tab Docusate Sodium (Colace) 100 mg PO Q8 [facility] Last Admin: 09/17/18 05:49 Dose: Not Given Enoxaparin Sodium (Lovenox) 40 mg SC DAILY [facility]; Protocol Last Admin: 09/17/18 09:42 Dose: 40 mg Ferrous Sulfate (Feosol) 324 mg PO DAILY [facility] Last Admin: 09/17/18 09:42 Dose: 324 mg Home Med (Home Med) 1 unit PO DAILY [facility] Last Admin: 09/17/18 10:11 Dose: 1 unit Ketorolac Tromethamine (Toradol) 15 mg IVP Q6H PRN PRN Reason: Pain, moderate (4-7) Last Admin: 09/16/18 20:24 Dose: 15 mg Lidocaine (Lidoderm) 1 ea TD DAILY [facility] Last Admin: 09/17/18 09:50 Dose: 1 ea Ondansetron HCl (Zofran Inj) 4 mg IVP Q6H PRN PRN Reason: Nausea/Vomiting Oxycodone/Acetaminophen (Percocet 5/325 Mg Tab) 1 tab PO Q6H PRN PRN Reason: Pain, moderate (4-7) Stop: 09/19/18 17:00 Last Admin: 09/17/18 09:49 Dose: 1 tab Polyethylene Glycol (Miralax) 17 gm PO DAILY [facility] Last Admin: 09/17/18 09:46 Dose: 17 gm Sildenafil Citrate (Revatio) 20 mg PO BID [facility] Last Admin: 09/17/18 09:42 Dose: 20 mg - Labs Labs: 09/17/18 08:15 09/17/18 08:15 - Additional Findings Additional findings: - Constitutional Appears: No Acute Distress, Cachectic - Head Exam Head Exam: ATRAUMATIC, NORMOCEPHALIC - Eye Exam Eye Exam: EOMI, Normal appearance - ENT Exam ENT Exam: Mucous Membranes Moist, Normal Oropharynx - Neck Exam Neck Exam: Normal Inspection - Respiratory Exam Respiratory Exam: Clear to Auscultation Bilateral, NORMAL BREATHING PATTERN. absent: Accessory Muscle Use - Cardiovascular Exam Cardiovascular Exam: regular rate, +S1, +S2 - GI/Abdominal Exam GI & Abdominal Exam: Soft, Normal Bowel Sounds. absent: Guarding, Rebound - Extremities Exam Extremities Exam: Normal Inspection. absent: Calf Tenderness - Back Exam Back Exam: vertebral tenderness along central lumbar spine. absent: CVA tenderness (L), CVA tenderness (R) - Neurological Exam Neurological Exam: Alert, Awake, Oriented x3 - Psychiatric Exam Psychiatric exam: Normal Affect, Normal Mood - Skin Skin Exam: Dry, Intact, Normal Color, Warm Assessment and Plan - Assessment and Plan (Free Text) Assessment: Patient is an 83 year old female with past medical history of CHF, T2DM, HLD, [place] PD on home O2, pulmonary HTN, urinary incontinence presenting with back pain, abdominal pain and cough. Plan: Chronic back pain -Percocet prn and morphine prn for pain -flexeril, lidocaine patch, toradol prn -09/15 lumbar spine MRI shows multiple compression fractures. -09/[address] shows no acute pathology -09/10 CTAP shows new compression deformity L1 vertebral body, evidence of prior kyphoplasty L1, compression deformities L2 and L5, profound osteopenia. -patient refusing kyphoplasty evaluation -per neurosx, recommend kyphoplasty -will await IR recommendations for kyphoplasty given new MRI findings -PT/OT eval recommend [facility]. Patient refuses rehab at this time -pain management consulted, awaiting recommendations Abdominal pain - improved -no intervention at this time for ventral hernia as per surgery recs -CT A/P shows constipation without fecal impaction or obstruction -superimposed opioid induced constipation present -continue colace, miralax PRN Cough - improved -afebrile, no leukocytosis -09/10 CXR shows no active disease -continue duonebs, Brovana -UCx, BCx neg x2 -procal low, flu negative -Pulmonology on consult Pulmonary HTN -home Revatio HLD -home Lipitor PPX/Diet -dexilant, lovenox -Diet Patient seen and case discussed with attending, Dr. Keating <Meme Keating - Last Filed: 09/17/18 13:58> Objective - Vital Signs/Intake and Output Vital Signs (last 24 hours): Temp Pulse Resp BP Pulse Ox 97.4 F L 79 18 131/69 99 09/17/18 06:00 09/17/18 06:00 09/17/18 06:00 09/17/18 06:00 09/17/18 06:00 Intake and Output: 09/17/18 09/17/18 06:59 18:59 Intake Total 780 Balance 780 - Medications Medications: Current Medications Albuterol/Ipratropium (Duoneb 3 Mg/0.5 Mg (3 Ml) Ud) 3 ml IH [id number] PRN PRN Reason: Shortness of Breath Last Admin: 09/17/18 07:33 Dose: 3 ml Alprazolam (Xanax) 0.25 mg PO BID PRN; Protocol PRN Reason: Anxiety Stop: 09/17/18 18:01 Last Admin: 09/15/18 13:12 Dose: 0.25 mg Arformoterol Tartrate (Brovana) 15 mcg IH [id number] [facility] Last Admin: 09/17/18 07:33 Dose: 15 mcg Aspirin (Aspirin Chewable) 81 mg PO DAILY [facility] Last Admin: 09/17/18 09:42 Dose: 81 mg Atorvastatin Calcium (Lipitor) 10 mg PO DIN [facility] Last Admin: 09/16/18 17:06 Dose: 10 mg Budesonide (Pulmicort Respules) 0.5 mg IH [id number] [facility] Last Admin: 09/17/18 07:33 Dose: 0.5 mg Calcium/Vitamin D (Oscal-D 250 Mg-125 Units Tab) 1 tab PO DAILY [facility] Last Admin: 09/17/18 09:42 Dose: 1 tab Docusate Sodium (Colace) 100 mg PO Q8 [facility] Last Admin: 09/17/18 05:49 Dose: Not Given Enoxaparin Sodium (Lovenox) 40 mg SC DAILY [facility]; Protocol Last Admin: 09/17/18 09:42 Dose: 40 mg Ferrous Sulfate (Feosol) 324 mg PO DAILY [facility] Last Admin: 09/17/18 09:42 Dose: 324 mg Home Med (Home Med) 1 unit PO DAILY [facility] Last Admin: 09/17/18 10:11 Dose: 1 unit Ketorolac Tromethamine (Toradol) 15 mg IVP Q6H PRN PRN Reason: Pain, moderate (4-7) Last Admin: 09/16/18 20:24 Dose: 15 mg Lidocaine (Lidoderm) 1 ea TD DAILY [facility] Last Admin: 09/17/18 09:50 Dose: 1 ea Ondansetron HCl (Zofran Inj) 4 mg IVP Q6H PRN PRN Reason: Nausea/Vomiting Oxycodone/Acetaminophen (Percocet 5/325 Mg Tab) 1 tab PO Q6H PRN PRN Reason: Pain, moderate (4-7) Stop: 09/19/18 17:00 Last Admin: 09/17/18 09:49 Dose: 1 tab Polyethylene Glycol (Miralax) 17 gm PO DAILY [facility] Last Admin: 09/17/18 09:46 Dose: 17 gm Sildenafil Citrate (Revatio) 20 mg PO BID [facility] Last Admin: 09/17/18 09:42 Dose: 20 mg - Labs Labs: 09/17/18 08:15 09/17/18 08:15 Attending/Attestation - Attestation I have personally seen and examined this patient.: Yes I have fully participated in the care of the patient.: Yes I have reviewed all pertinent clinical information, including history, physical exam and plan: Yes Notes (Text): 09/17/18 13:54 83 year old female with past medical history of COPD, diabetes, pulmonary hypertension, abdominal hernia and history of kyphoplasty who presented with complaint of back pain, abdominal pain, cough and difficulty ambulating. CT abd/pelvis showed constipation without fecal impaction or obstruction. CT spine showed new compression deformity L1 vertebral body, evidence of prior kyphoplasty, compression deformities L2 and L5 and profound osteopenia. MRI lumbar spine reviewed showing multiple compression fractures. Patient is on percocet, lidoderm patch and toradol for pain. Neurosurgery evaluation appreciated; recommended conservative management and possible kyphoplasty. Patient however is refusing kyphoplasty. Will speak with pain management tomorrow. Continue with PT as tolerated who [facility]. However is refusing and wishes to home with family support once her back pain improves. Constipation has improved with colace, miralax and dulcolax suppository. Surgery evaluation was appreciated for abdominal hernia; no plan for intervention at this time. COPD has improved. Pulmonary is following. Meme Keating MD Hospitalist.
[2018-09-18] MEDS: Oxycodone/Acetaminophen 5/325 mg Tab PO PRN ×3 (00:58→16:39)
--- NOTE | 2018-09-18 07:01 | CP.PCM.PN ---
<Bouchra Virk L - Last Filed: 09/18/18 16:03> Subjective - Date & Time of Evaluation Date of Evaluation: 09/18/18 Time of Evaluation: 07:00 - Subjective Subjective: Resident Progress Note for Hospitalist Service Patient examined at bedside. No acute events overnight. Patient states she was able to sleep throughout the night. Admits to abdominal pain and back pain. Patient to receive epidural for pain management or Tuesday. Denies fevers, chills, chest pain, shortness of breath, diarrhea, dysuria. Objective - Vital Signs/Intake and Output Vital Signs (last 24 hours): Temp Pulse Resp BP Pulse Ox 98.4 F 88 18 108/53 L 97 09/17/18 21:53 09/17/18 21:53 09/17/18 21:53 09/17/18 21:53 09/17/18 21:53 Intake and Output: 09/18/18 09/18/18 06:59 18:59 Intake Total 660 Balance 660 - Medications Medications: Current Medications Albuterol/Ipratropium (Duoneb 3 Mg/0.5 Mg (3 Ml) Ud) 3 ml IH [id number] PRN PRN Reason: Shortness of Breath Last Admin: 09/17/18 07:33 Dose: 3 ml Arformoterol Tartrate (Brovana) 15 mcg IH [id number] [facility] Last Admin: 09/17/18 19:32 Dose: 15 mcg Aspirin (Aspirin Chewable) 81 mg PO DAILY [facility] Last Admin: 09/17/18 09:42 Dose: 81 mg Atorvastatin Calcium (Lipitor) 10 mg PO DIN [facility] Last Admin: 09/17/18 17:45 Dose: 10 mg Budesonide (Pulmicort Respules) 0.5 mg IH [id number] [facility] Last Admin: 09/17/18 19:32 Dose: 0.5 mg Calcium/Vitamin D (Oscal-D 250 Mg-125 Units Tab) 1 tab PO DAILY [facility] Last Admin: 09/17/18 09:42 Dose: 1 tab Docusate Sodium (Colace) 100 mg PO Q8 [facility] Last Admin: 09/18/18 05:13 Dose: Not Given Enoxaparin Sodium (Lovenox) 40 mg SC DAILY [facility]; Protocol Last Admin: 09/17/18 09:42 Dose: 40 mg Ferrous Sulfate (Feosol) 324 mg PO DAILY [facility] Last Admin: 09/17/18 09:42 Dose: 324 mg Home Med (Home Med) 1 unit PO DAILY [facility] Last Admin: 09/17/18 10:11 Dose: 1 unit Ketorolac Tromethamine (Toradol) 15 mg IVP Q6H PRN PRN Reason: Pain, moderate (4-7) Last Admin: 09/16/18 20:24 Dose: 15 mg Lidocaine (Lidoderm) 1 ea TD DAILY [facility] Last Admin: 09/17/18 09:50 Dose: 1 ea Ondansetron HCl (Zofran Inj) 4 mg IVP Q6H PRN PRN Reason: Nausea/Vomiting Oxycodone/Acetaminophen (Percocet 5/325 Mg Tab) 1 tab PO Q6H PRN PRN Reason: Pain, moderate (4-7) Stop: 09/19/18 17:00 Last Admin: 09/18/18 00:58 Dose: 1 tab Polyethylene Glycol (Miralax) 17 gm PO DAILY [facility] Last Admin: 09/17/18 09:46 Dose: 17 gm Sildenafil Citrate (Revatio) 20 mg PO BID [facility] Last Admin: 09/17/18 17:45 Dose: 20 mg - Labs Labs: 09/17/18 08:15 09/17/18 08:15 - Additional Findings Additional findings: - Constitutional Appears: No Acute Distress, Cachectic - Head Exam Head Exam: ATRAUMATIC, NORMOCEPHALIC - Eye Exam Eye Exam: EOMI, Normal appearance - ENT Exam ENT Exam: Mucous Membranes Moist, Normal Oropharynx - Neck Exam Neck Exam: Normal Inspection - Respiratory Exam Respiratory Exam: Clear to Auscultation Bilateral, NORMAL BREATHING PATTERN. absent: Accessory Muscle Use - Cardiovascular Exam Cardiovascular Exam: regular rate, +S1, +S2 - GI/Abdominal Exam GI & Abdominal Exam: Soft, Normal Bowel Sounds, Hernia. absent: Guarding, Rebound - Extremities Exam Extremities Exam: Normal Inspection. absent: Calf Tenderness - Back Exam Back Exam: vertebral tenderness along central lumbar spine. absent: CVA tenderness (L), CVA tenderness (R) - Neurological Exam Neurological Exam: Alert, Awake, Oriented x3 - Psychiatric Exam Psychiatric exam: Normal Affect, Normal Mood - Skin Skin Exam: Dry, Intact, Normal Color, Warm Assessment and Plan - Assessment and Plan (Free Text) Assessment: Patient is an 83 year old female with past medical history of CHF, T2DM, HLD, COPD on home O2, pulmonary HTN, urinary incontinence presenting with back pain, abdominal pain and cough. Plan: Chronic back pain - Percocet 5/325mg q6 - Morphine 1 mg IM Q4H PRN - 09/[address] shows no acute pathology - 09/10 abd/pelvis CT shows new compression deformity L1 vertebral body, evidence of prior kyphoplasty L1, compression deformities L2 and L5, profound osteopenia. - no indication for kyphoplasty as per IR - flexeril 5mg TID, lidoderm patch, toradol 30mg Q6H PRN - PT/OT eval recommend [facility]. Patient refuses rehab at this time - pain management consulted. Appreciate recs. - MRI of Lumbar spine shows Normal lumbar lordosis. The previous study showed an acute fracture at the T12 level which was treated with vertebroplasty. There is an acute compression fracture of T10 with extensive marrow edema. Ther e is only minimal loss of vertebral height. There is a moderate compression deformity of L1. There is some enhancement along the superior endplate consistent with an acute or subacute event. The remainder of the vertebral body shows a normal marrow signal intensity. There is an acute compression fracture of L4 with severe loss of vertebral height and compression of the superior endplate. There is marrow edema throughout the L4 vertebral body. Conus medullaris unremarkable at the level of T12. There is moderate central stenosis at the L3-4 level. In addition to marrow edema there enhancement of the T10 and L4 vertebral bodies. - Neurosurgery states the pathology is too great and the osteoporosis too extensive to consider fusion/stabilization. Decompression for stenosis contraindicated due to the mult fractures and would leave her unstable. Consider kyphoplasty and conservative pain management, however patient refuses kyphoplasty Abdominal pain - improved - no intervention at this time for ventral hernia as per surgery recs - CT A/P shows constipation without fecal impaction or obstruction - superimposed opioid induced constipation present - continue colace, miralax PRN Cough - improved - afebrile, no leukocytosis - 09/10 CXR shows no active disease - continue duonebs, Brovana - UCx, BCx neg x2 - procal low, flu negative - Pulmonology on consult Pulmonary HTN - home Revatio HLD - home Lipitor PPX - dexilant, lovenox Case discussed with Dr. Zuri Virk PGY-1 <Meme Keating - Last Filed: 09/18/18 17:42> Objective - Vital Signs/Intake and Output Vital Signs (last 24 hours): Temp Pulse Resp BP Pulse Ox 97.9 F 83 20 124/68 98 09/18/18 14:00 09/18/18 14:00 09/18/18 14:00 09/18/18 14:00 09/18/18 14:00 Intake and Output: 09/18/18 09/18/18 06:59 18:59 Intake Total 660 Balance 660 - Medications Medications: Current Medications Albuterol/Ipratropium (Duoneb 3 Mg/0.5 Mg (3 Ml) Ud) 3 ml IH [id number] PRN PRN Reason: Shortness of Breath Last Admin: 09/17/18 07:33 Dose: 3 ml Arformoterol Tartrate (Brovana) 15 mcg IH [id number] [facility] Last Admin: 09/18/18 13:39 Dose: 15 mcg Aspirin (Aspirin Chewable) 81 mg PO DAILY [facility] Last Admin: 09/18/18 09:20 Dose: 81 mg Atorvastatin Calcium (Lipitor) 10 mg PO DIN [facility] Last Admin: 09/18/18 16:38 Dose: 10 mg Budesonide (Pulmicort Respules) 0.5 mg IH [id number] [facility] Last Admin: 09/18/18 13:39 Dose: 0.5 mg Calcium/Vitamin D (Oscal-D 250 Mg-125 Units Tab) 1 tab PO DAILY [facility] Last Admin: 09/18/18 09:20 Dose: 1 tab Docusate Sodium (Colace) 100 mg PO Q8 [facility] Last Admin: 09/18/18 15:02 Dose: Not Given Enoxaparin Sodium (Lovenox) 40 mg SC DAILY [facility]; Protocol Last Admin: 09/18/18 09:20 Dose: 40 mg Ferrous Sulfate (Feosol) 324 mg PO DAILY [facility] Last Admin: 09/18/18 09:20 Dose: 324 mg Home Med (Home Med) 1 unit PO DAILY [facility] Last Admin: 09/18/18 09:23 Dose: 1 unit Ketorolac Tromethamine (Toradol) 15 mg IVP Q6H PRN PRN Reason: Pain, moderate (4-7) Last Admin: 09/16/18 20:24 Dose: 15 mg Lidocaine (Lidoderm) 1 ea TD DAILY [facility] Last Admin: 09/18/18 09:21 Dose: 1 ea Ondansetron HCl (Zofran Inj) 4 mg IVP Q6H PRN PRN Reason: Nausea/Vomiting Oxycodone/Acetaminophen (Percocet 5/325 Mg Tab) 1 tab PO Q6H PRN PRN Reason: Pain, moderate (4-7) Stop: 09/19/18 17:00 Last Admin: 09/18/18 16:39 Dose: 1 tab Polyethylene Glycol (Miralax) 17 gm PO DAILY [facility] Last Admin: 09/18/18 09:21 Dose: 17 gm Sildenafil Citrate (Revatio) 20 mg PO BID [facility] Last Admin: 09/18/18 16:38 Dose: 20 mg Simethicone (Mylicon Chew Tab) 80 mg PO PCHS PRN PRN Reason: GI distress - Labs Labs: 09/18/18 06:30 09/18/18 06:30 Attending/Attestation - Attestation I have personally seen and examined this patient.: Yes I have fully participated in the care of the patient.: Yes I have reviewed all pertinent clinical information, including history, physical exam and plan: Yes Notes (Text): 09/18/18 17:40 83 year old female with past medical history of COPD, diabetes, pulmonary hypertension, abdominal hernia and history of kyphoplasty who presented with complaint of back pain, abdominal pain, cough and difficulty ambulating. CT abd/pelvis showed constipation without fecal impaction or obstruction. CT spine showed new compression deformity L1 vertebral body, evidence of prior kyphoplasty, compression deformities L2 and L5 and profound osteopenia. MRI lumbar spine reviewed showing multiple compression fractures. Patient is on percocet, lidoderm patch and toradol for pain. Neurosurgery evaluation appre ciated; recommended conservative management and possible kyphoplasty. Patient however is refusing kyphoplasty. Plan for possible epidural injection on /Tuesday as per pain management. Continue with PT as tolerated who recommended [facility]. However is refusing and wishes to home with family support once her back pain improves. Constipation has improved with colace, miralax and dulcolax suppository. Surgery evaluation was appreciated for abdominal hernia; no plan for intervention at this time. COPD has improved. Pulmonary is following. Meme Keating MD Hospitalist.
[2018-09-18 07:02] LABS: BASO # 0.02 K/mm3 (0.0-2.0); BASO % 0.4 % (0.0-3.0); EOS # 0.3 (0.0-0.7); EOS % 7.2 % (1.5-5.0); GRAN # 2.75 (1.4-6.5); GRAN % 60.1 % (50.0-68.0); HEMOGLOBIN 9.8 g/dL (12.0-16.0); LYMPH # 1.1 (1.2-3.4); LYMPH % 23.8 % (22.0-35.0); MEAN CELL VOLUME 96.8 fl (80.0-105.0); MEAN CORPUSCULAR HEMOGLOBIN 30.9 pg (25.0-35.0); MEAN CORPUSCULAR HGB CONC 31.9 g/dl (31.0-37.0); MEAN PLATELET VOLUME 10.5 fl (7.0-11.0); MONO # 0.4 (0.1-0.6); MONO % 8.5 % (1.0-6.0); RBC 3.17 10^6/uL (3.5-6.1); RED CELL DISTRIBUTION WIDTH 12.4 % (11.5-14.5); WHITE BLOOD COUNT 4.6 10^3/uL (4.5-11.0)
[2018-09-18 07:30] LABS: ALB/GLOB RATIO 1.3 (1.1-1.8); ALBUMIN 3.2 g/dL (3.0-4.8); ALT/SGPT 23 U/L (7-56); AST/SGOT 20 U/L (14-36); BLOOD UREA NITROGEN 26 mg/dL (7-21); GFR NON-AFRICAN AMERICAN > 60
[2018-09-18] MEDS: Enoxaparin 40 mg Syringe SC SCH (09:20)
[2018-09-18] MEDS: Calcium-Vit D 250 mg-125 Units Tab UD PO SCH (09:20)
[2018-09-18] MEDS: Sildenafil 20 MG TAB PO SCH ×2 (09:20→16:38)
[2018-09-18] MEDS: Lidocaine 5% Patch TD SCH (09:21)
[2018-09-18] MEDS: POLYETHYLENE GLYCOL 3350 17 GM/Dose PACKET PO SCH (09:21)
[2018-09-18] MEDS: DEXILANT 60 MG PO SCH (09:23)
[2018-09-18] MEDS: Arformoterol 15 mcg/2 ml Inh Sol IH SCH ×2 (13:39→19:32)
[2018-09-18] MEDS: Budesonide 0.5 mg/2 ml Inhal Susp UD IH SCH ×2 (13:39→19:32)
[2018-09-18] MEDS ORDERED: Simethicone 80 mg Chewtab PO PRN (16:55)
--- NOTE | 2018-09-19 07:09 | CP.PCM.PN ---
<Bouchra Virk L - Last Filed: 09/19/18 14:03> Subjective - Date & Time of Evaluation Date of Evaluation: 09/19/18 Time of Evaluation: 07:09 - Subjective Subjective: Resident Progress Note for Hospitalist Service Patient examined at [facility]. No acute events overnight. Patient states she had a bowel movement today. Her back pain is unchanged from prior. Denies fevers, chills, chest pain, shortness of breath. Plan for epidural injection or Tuesday. Objective - Vital Signs/Intake and Output Vital Signs (last 24 hours): Temp Pulse Resp BP Pulse Ox 98 F 86 18 114/57 L 98 09/18/18 23:13 09/18/18 23:13 09/18/18 23:13 09/18/18 23:13 09/18/18 23:13 Intake and Output: 09/19/18 09/19/18 06:59 18:59 Intake Total 480 Balance 480 - Medications Medications: Current Medications Albuterol/Ipratropium (Duoneb 3 Mg/0.5 Mg (3 Ml) Ud) 3 ml IH [id number] PRN PRN Reason: Shortness of Breath Last Admin: 09/17/18 07:33 Dose: 3 ml Arformoterol Tartrate (Brovana) 15 mcg IH [id number] [facility] Last Admin: 09/18/18 19:32 Dose: 15 mcg Aspirin (Aspirin Chewable) 81 mg PO DAILY [facility] Last Admin: 09/18/18 09:20 Dose: 81 mg Atorvastatin Calcium (Lipitor) 10 mg PO DIN [facility] Last Admin: 09/18/18 16:38 Dose: 10 mg Budesonide (Pulmicort Respules) 0.5 mg IH [id number] [facility] Last Admin: 09/18/18 19:32 Dose: 0.5 mg Calcium/Vitamin D (Oscal-D 250 Mg-125 Units Tab) 1 tab PO DAILY [facility] Last Admin: 09/18/18 09:20 Dose: 1 tab Docusate Sodium (Colace) 100 mg PO Q8 [facility] Last Admin: 09/19/18 06:04 Dose: Not Given Enoxaparin Sodium (Lovenox) 40 mg SC DAILY [facility]; Protocol Last Admin: 09/18/18 09:20 Dose: 40 mg Ferrous Sulfate (Feosol) 324 mg PO DAILY [facility] Last Admin: 09/18/18 09:20 Dose: 324 mg Home Med (Home Med) 1 unit PO DAILY [facility] Last Admin: 09/18/18 09:23 Dose: 1 unit Ketorolac Tromethamine (Toradol) 15 mg IVP Q6H PRN PRN Reason: Pain, moderate (4-7) Last Admin: 09/18/18 21:41 Dose: 15 mg Lidocaine (Lidoderm) 1 ea TD DAILY [facility] Last Admin: 09/18/18 09:21 Dose: 1 ea Ondansetron HCl (Zofran Inj) 4 mg IVP Q6H PRN PRN Reason: Nausea/Vomiting Oxycodone/Acetaminophen (Percocet 5/325 Mg Tab) 1 tab PO Q6H PRN PRN Reason: Pain, moderate (4-7) Stop: 09/19/18 17:00 Last Admin: 09/18/18 16:39 Dose: 1 tab Polyethylene Glycol (Miralax) 17 gm PO DAILY [facility] Last Admin: 09/18/18 09:21 Dose: 17 gm Sildenafil Citrate (Revatio) 20 mg PO Q12H [facility] Simethicone (Mylicon Chew Tab) 80 mg PO PCHS PRN PRN Reason: GI distress Last Admin: 09/18/18 17:50 Dose: 80 mg - Labs Labs: 09/18/18 06:30 09/18/18 06:30 - Additional Findings Additional findings: - Constitutional Appears: No Acute Distress, Cachectic - Head Exam Head Exam: ATRAUMATIC, NORMOCEPHALIC - Eye Exam Eye Exam: EOMI, Normal appearance - Neck Exam Neck Exam: Normal Inspection - Respiratory Exam Respiratory Exam: Clear to Auscultation Bilateral, NORMAL BREATHING PATTERN. absent: Accessory Muscle Use - Cardiovascular Exam Cardiovascular Exam: regular rate, +S1, +S2 - GI/Abdominal Exam GI & Abdominal Exam: Soft, Normal Bowel Sounds, Hernia. absent: Guarding, Rebound - Extremities Exam Extremities Exam: Normal Inspection. absent: Calf Tenderness - Back Exam Back Exam: vertebral tenderness along central lumbar spine. absent: CVA tenderness (L), CVA tenderness (R) - Neurological Exam Neurological Exam: Alert, Awake, Oriented x3 - Psychiatric Exam Psychiatric exam: Normal Affect, Normal Mood - Skin Skin Exam: Dry, Intact, Normal Color, Warm Assessment and Plan - Assessment and Plan (Free Text) Assessment: Patient is an 83 year old female with past medical history of CHF, T2DM, HLD, COPD on home O2, pulmonary HTN, urinary incontinence presenting with back pain, abdominal pain and cough. Plan: Chronic back pain - Percocet 5/325mg q6 - Morphine 1 mg IM Q4H PRN - 09/[address] shows no acute pathology - 09/10 abd/pelvis CT shows new compression deformity L1 vertebral body, evidence of prior kyphoplasty L1, compression deformities L2 and L5, profound osteopenia. - no indication for kyphoplasty as per IR - flexeril 5mg TID, lidoderm patch, toradol 30mg Q6H PRN - PT/OT eval recommend [facility]. Patient refuses rehab at this time - pain management consulted. Appreciate recs. - MRI of Lumbar spine shows Normal lumbar lordosis. The previous study showed an acute fracture at the T12 level which was treated with vertebroplasty. There is an acute compression fracture of T10 with extensive marrow edema. There is only minimal loss of vertebral height. There is a moderate compression deformity of L1. There is some enhancement along the superior endplate consistent with an acute or subacute event. The remainder of the vertebral body shows a normal marrow signal intensity. There is an acute compression fracture of L4 with severe loss of vertebral height and compression of the superior en dplate. There is marrow edema throughout the L4 vertebral body. Conus medullaris unremarkable at the level of T12. There is moderate central stenosis at the L3-4 level. In addition to marrow edema there enhancement of the T10 and L4 vertebral bodies. - Neurosurgery states the pathology is too great and the osteoporosis too extensive to consider fusion/stabilization. Decompression for stenosis con traindicated due to the mult fractures and would leave her unstable. Consider kyphoplasty and conservative pain management, however patient refuses kyphoplasty Abdominal pain - improved - no intervention at this time for ventral hernia as per surgery recs - CT A/P shows constipation without fecal impaction or obstruction - superimposed opioid induced constipation present - continue colace, miralax PRN Cough - improved - afebrile, no leukocytosis - 09/10 CXR shows no active disease - continue duonebs, Brovana - UCx, BCx neg x2 - procal low, flu negative - Pulmonology on consult Pulmonary HTN - home Revatio HLD - home Lipitor PPX - dexilant, lovenox Case discussed with Dr. Zuri Virk PGY-1 <Meme Keating - Last Filed: 09/19/18 16:15> Objective - Vital Signs/Intake and Output Vital Signs (last 24 hours): Temp Pulse Resp BP Pulse Ox 98.2 F 95 H 20 104/53 L 95 09/19/18 14:33 09/19/18 14:33 09/19/18 14:33 09/19/18 14:33 09/19/18 14:33 Intake and Output: 09/19/18 09/19/18 06:59 18:59 Intake Total 480 Balance 480 - Medications Medications: Current Medications Albuterol/Ipratropium (Duoneb 3 Mg/0.5 Mg (3 Ml) Ud) 3 ml IH [id number] PRN PRN Reason: Shortness of Breath Last Admin: 09/17/18 07:33 Dose: 3 ml Arformoterol Tartrate (Brovana) 15 mcg IH [id number] [facility] Last Admin: 09/19/18 08:08 Dose: 15 mcg Aspirin (Aspirin Chewable) 81 mg PO DAILY [facility] Last Admin: 09/19/18 09:00 Dose: 81 mg Atorvastatin Calcium (Lipitor) 10 mg PO DIN [facility] Last Admin: 09/18/18 16:38 Dose: 10 mg Budesonide (Pulmicort Respules) 0.5 mg IH [id number] [facility] Last Admin: 09/19/18 08:07 Dose: 0.5 mg Calcium/Vitamin D (Oscal-D 250 Mg-125 Units Tab) 1 tab PO DAILY [facility] Last Admin: 09/19/18 09:00 Dose: 1 tab Docusate Sodium (Colace) 100 mg PO Q8 [facility] Last Admin: 09/19/18 14:57 Dose: Not Given Enoxaparin Sodium (Lovenox) 40 mg SC DAILY [facility]; Protocol Last Admin: 09/19/18 09:00 Dose: 40 mg Ferrous Sulfate (Feosol) 324 mg PO DAILY [facility] Last Admin: 09/19/18 09:00 Dose: 324 mg Home Med (Home Med) 1 unit PO DAILY [facility] Last Admin: 09/19/18 10:26 Dose: 1 unit Ketorolac Tromethamine (Toradol) 15 mg IVP Q6H PRN PRN Reason: Pain, moderate (4-7) Last Admin: 09/18/18 21:41 Dose: 15 mg Lidocaine (Lidoderm) 1 ea TD DAILY [facility] Last Admin: 09/19/18 09:01 Dose: 1 ea Ondansetron HCl (Zofran Inj) 4 mg IVP Q6H PRN PRN Reason: Nausea/Vomiting Oxycodone/Acetaminophen (Percocet 5/325 Mg Tab) 1 tab PO Q6H PRN PRN Reason: Pain, moderate (4-7) Stop: 09/19/18 17:00 Last Admin: 09/19/18 08:59 Dose: 1 tab Polyethylene Glycol (Miralax) 17 gm PO DAILY [facility] Last Admin: 09/19/18 09:00 Dose: 17 gm Sildenafil Citrate (Revatio) 20 mg PO Q12H [facility] Last Admin: 09/19/18 09:00 Dose: 20 mg Simethicone (Mylicon Liq) 40 mg PO QID PRN PRN Reason: GI distress - Labs Labs: 09/19/18 07:30 09/19/18 07:30 Attending/Attestation - Attestation I have personally seen and examined this patient.: Yes I have fully participated in the care of the patient.: Yes I have reviewed all pertinent clinical information, including history, physical exam and plan: Yes Notes (Text): 09/19/18 16:14 83 year old female with past medical history of COPD, diabetes, pulmonary hypertension, abdominal hernia and history of kyphoplasty who presented with complaint of back pain, abdominal pain, cough and difficulty ambulating. CT abd/pelvis showed constipation without fecal impaction or obstruction. CT spine showed new compression deformity L1 vertebral body, evidence of prior kyphoplasty, compression deformities L2 and L5 and profound osteopenia. MRI lumbar spine reviewed showing multiple compression fractures. Patient is on percocet and lidoderm patch for pain. Neurosurgery evaluation was appreciated; recommended conservative management and possible kyphoplasty. Patient however is refusing kyphoplasty. Plan for possible epidural injection on /Tuesday as per pain management. Continue with PT as tolerated who recommended [facility]. However is refusing and wishes to home with family support once her back pain improves. Constipation has improved with colace, miralax and dulcolax suppository. Surgery evaluation was appreciated for abdominal hernia; no plan for intervention at this time. COPD has improved. Pulmonary is following. Meme Ketaing MD Hospitalist.
[2018-09-19] MEDS: Budesonide 0.5 mg/2 ml Inhal Susp UD IH SCH ×2 (08:07→19:54)
[2018-09-19] MEDS: Arformoterol 15 mcg/2 ml Inh Sol IH SCH ×2 (08:08→19:53)
[2018-09-19 08:38] LABS: BASO # 0.01 K/mm3 (0.0-2.0); BASO % 0.2 % (0.0-3.0); EOS # 0.3 (0.0-0.7); EOS % 5.2 % (1.5-5.0); GRAN # 3.26 (1.4-6.5); GRAN % 64.7 % (50.0-68.0); HEMOGLOBIN 9.6 g/dL (12.0-16.0); LYMPH % 19.6 % (22.0-35.0); MEAN CELL VOLUME 96.2 fl (80.0-105.0); MEAN CORPUSCULAR HEMOGLOBIN 30.6 pg (25.0-35.0); MEAN CORPUSCULAR HGB CONC 31.8 g/dl (31.0-37.0); MEAN PLATELET VOLUME 10.9 fl (7.0-11.0); MONO # 0.5 (0.1-0.6); MONO % 10.3 % (1.0-6.0); RBC 3.14 10^6/uL (3.5-6.1); RED CELL DISTRIBUTION WIDTH 12.7 % (11.5-14.5)
[2018-09-19] MEDS: Oxycodone/Acetaminophen 5/325 mg Tab PO PRN ×2 (08:59→17:08)
[2018-09-19] MEDS: Enoxaparin 40 mg Syringe SC SCH (09:00)
[2018-09-19] MEDS: Calcium-Vit D 250 mg-125 Units Tab UD PO SCH (09:00)
[2018-09-19] MEDS: Sildenafil 20 MG TAB PO SCH ×2 (09:00→22:26)
[2018-09-19] MEDS: POLYETHYLENE GLYCOL 3350 17 GM/Dose PACKET PO SCH (09:00)
[2018-09-19] MEDS: Lidocaine 5% Patch TD SCH (09:01)
[2018-09-19 09:34] LABS: CALCIUM 8.9 mg/dL (8.4-10.5)
[2018-09-19 09:37] LABS: ALB/GLOB RATIO 1.3 (1.1-1.8); ALBUMIN 3.1 g/dL (3.0-4.8); ALT/SGPT 27 U/L (7-56); AST/SGOT 18 U/L (14-36); BLOOD UREA NITROGEN 28 mg/dL (7-21); GFR NON-AFRICAN AMERICAN > 60
[2018-09-19] MEDS: DEXILANT 60 MG PO SCH (10:26)
[2018-09-19] MEDS: Simethicone 40 mg/0.6 ml Liquid (30 ml) PO PRN (20:59)
[2018-09-20] MEDS: Oxycodone/Acetaminophen 5/325 mg Tab PO PRN ×4 (00:57→22:30)
[2018-09-20 06:43] LABS: BASO # 0.01 K/mm3 (0.0-2.0); BASO % 0.2 % (0.0-3.0); EOS # 0.3 (0.0-0.7); EOS % 6.7 % (1.5-5.0); GRAN # 2.19 (1.4-6.5); GRAN % 50.3 % (50.0-68.0); HEMOGLOBIN 9.7 g/dL (12.0-16.0); LYMPH # 1.3 (1.2-3.4); LYMPH % 29.7 % (22.0-35.0); MEAN CELL VOLUME 97.1 fl (80.0-105.0); MEAN CORPUSCULAR HEMOGLOBIN 30.9 pg (25.0-35.0); MEAN CORPUSCULAR HGB CONC 31.8 g/dl (31.0-37.0); MEAN PLATELET VOLUME 11.2 fl (7.0-11.0); MONO # 0.6 (0.1-0.6); MONO % 13.1 % (1.0-6.0); RBC 3.14 10^6/uL (3.5-6.1); RED CELL DISTRIBUTION WIDTH 12.7 % (11.5-14.5); WHITE BLOOD COUNT 4.4 10^3/uL (4.5-11.0)
[2018-09-20 06:51] LABS: ALB/GLOB RATIO 1.4 (1.1-1.8); ALBUMIN 3.2 g/dL (3.0-4.8); ALT/SGPT 28 U/L (7-56); AST/SGOT 22 U/L (14-36); BLOOD UREA NITROGEN 26 mg/dL (7-21); CALCIUM 9.2 mg/dL (8.4-10.5); GFR NON-AFRICAN AMERICAN > 60
[2018-09-20] MEDS: Budesonide 0.5 mg/2 ml Inhal Susp UD IH SCH ×2 (07:24→20:18)
[2018-09-20] MEDS: Arformoterol 15 mcg/2 ml Inh Sol IH SCH ×2 (07:24→20:18)
[2018-09-20] MEDS: POLYETHYLENE GLYCOL 3350 17 GM/Dose PACKET PO SCH (09:12)
[2018-09-20] MEDS: Enoxaparin 40 mg Syringe SC SCH (09:12)
[2018-09-20] MEDS: DEXILANT 60 MG PO SCH (09:13)
[2018-09-20] MEDS: Calcium-Vit D 250 mg-125 Units Tab UD PO SCH (09:13)
[2018-09-20] MEDS: Lidocaine 5% Patch TD SCH (09:13)
--- NOTE | 2018-09-20 09:27 | PN ---
DATE: 09/20/2018 PULMONARY NOTE SUBJECTIVE: The patient appears comfortable this morning. She is not short of breath at rest. OBJECTIVE: VITAL SIGNS: Temperature is 98.3, pulse 75, respirations 18/20, blood pressure 129/70. Oxygen saturation on nasal cannula is 98%-100%. HEENT: Normocephalic, atraumatic. NECK: No JVD. CARDIOVASCULAR: Systolic ejection murmur at the lower left sternal border. No S3 gallop. LUNGS: Clear bilaterally. EXTREMITIES: Mild edema. No cyanosis, no clubbing. Calves are nontender to palpation. GASTROINTESTINAL: Abdominis soft, nontender, and nondistended. Bowel sounds are positive. SKIN: No acute rash. NEUROLOGIC: Limited at the present time. IMPRESSION: 1. Back pain, compression fracture L1 vertebrae. 2. Mild acute bronchitis - resolved. 3. End-stage chronic obstructive pulmonary disease. 4. Pulmonary hypertension. 5. Mild anemia. 6. Coronary artery disease. PLAN: The patient appears comfortable this morning. She is not short of breath at rest. She does state to feeling much better overall. On physical exam, her lungs are now clear. In addition, the oxygen saturation on nasal cannula is 98%-100%. I will continue the current nebulizer treatments and inhaled steroids for now. The patient also remains on Revatio - for her pulmonary hypertension. Clinical status of the patient is certainly improved - compared to her initial presentation. However, given the above, the future status/prognosis for this patient does remain poor overall. I will discuss the above with the attending physician this morning. Evgeny Briggs MD [facility]
[2018-09-20] MEDS: Sildenafil 20 MG TAB PO SCH (10:00)
--- NOTE | 2018-09-20 14:31 | CP.PCM.PN ---
<Jocelyn Ruiz - Last Filed: 09/20/18 14:26> Subjective - Date & Time of Evaluation Date of Evaluation: 09/20/18 Time of Evaluation: 11:14 - Subjective Subjective: Jocelyn Ruiz [facility] Progress Note Patient seen and examined at bedside this morning. No acute events reported overnight. Receiving percocet for back pain. Offers no new complaints today. Awating pain management epidural. Objective - Vital Signs/Intake and Output Vital Signs (last 24 hours): Temp Pulse Resp BP Pulse Ox 98.3 F 75 20 129/70 98 09/20/18 06:00 09/20/18 06:00 09/20/18 06:00 09/20/18 06:00 09/20/18 06:00 Intake and Output: 09/20/18 09/20/18 06:59 18:59 Intake Total 540 Balance 540 - Medications Medications: Current Medications Albuterol/Ipratropium (Duoneb 3 Mg/0.5 Mg (3 Ml) Ud) 3 ml IH [id number] PRN PRN Reason: Shortness of Breath Last Admin: 09/17/18 07:33 Dose: 3 ml Arformoterol Tartrate (Brovana) 15 mcg IH [id number] [facility] Last Admin: 09/19/18 19:53 Dose: 15 mcg Aspirin (Aspirin Chewable) 81 mg PO DAILY [facility] Last Admin: 09/20/18 09:13 Dose: 81 mg Atorvastatin Calcium (Lipitor) 10 mg PO DIN [facility] Last Admin: 09/19/18 16:34 Dose: 10 mg Budesonide (Pulmicort Respules) 0.5 mg IH [id number] [facility] Last Admin: 09/19/18 19:54 Dose: 0.5 mg Calcium/Vitamin D (Oscal-D 250 Mg-125 Units Tab) 1 tab PO DAILY [facility] Last Admin: 09/20/18 09:13 Dose: 1 tab Docusate Sodium (Colace) 100 mg PO Q8 [facility] Last Admin: 09/20/18 14:07 Dose: Not Given Enoxaparin Sodium (Lovenox) 40 mg SC DAILY [facility]; Protocol Last Admin: 09/20/18 09:12 Dose: 40 mg Ferrous Sulfate (Feosol) 324 mg PO DAILY [facility] Last Admin: 09/20/18 09:07 Dose: 324 mg Home Med (Home Med) 1 unit PO DAILY [facility] Last Admin: 09/20/18 09:13 Dose: 1 unit Lidocaine (Lidoderm) 1 ea TD DAILY [facility] Last Admin: 09/20/18 09:13 Dose: 1 ea Ondansetron HCl (Zofran Inj) 4 mg IVP Q6H PRN PRN Reason: Nausea/Vomiting Oxycodone/Acetaminophen (Percocet 5/325 Mg Tab) 1 tab PO Q6H PRN PRN Reason: Pain, severe (8-10) Stop: 09/22/18 17:31 Last Admin: 09/20/18 09:14 Dose: 1 tab Polyethylene Glycol (Miralax) 17 gm PO DAILY [facility] Last Admin: 09/20/18 09:12 Dose: Not Given Sildenafil Citrate (Revatio) 20 mg PO Q12H [facility] Last Admin: 09/19/18 22:26 Dose: 20 mg Simethicone (Mylicon Liq) 40 mg PO QID PRN PRN Reason: GI distress Last Admin: 09/19/18 20:59 Dose: 40 mg - Labs Labs: 09/20/18 06:10 09/20/18 06:10 - Additional Findings Additional findings: - Constitutional Appears: No Acute Distress, Cachectic - Head Exam Head Exam: ATRAUMATIC, NORMOCEPHALIC - Eye Exam Eye Exam: EOMI, Normal appearance - ENT Exam ENT Exam: Mucous Membranes Moist, Normal Oropharynx - Neck Exam Neck Exam: Normal Inspection - Respiratory Exam Respiratory Exam: Clear to Auscultation Bilateral, NORMAL BREATHING PATTERN. absent: Accessory Muscle Use - Cardiovascular Exam Cardiovascular Exam: regular rate, +S1, +S2 - GI/Abdominal Exam GI & Abdominal Exam: Soft, Normal Bowel Sounds. absent: Guarding, Rebound - Extremities Exam Extremities Exam: Normal Inspection. absent: Calf Tenderness - Back Exam Back Exam: vertebral tenderness along central lumbar spine. absent: CVA tenderness (L), CVA tenderness (R), motor/sensory deficits in B/L upper/lower extremities. - Neurological Exam Neurological Exam: Alert, Awake, Oriented x3 - Psychiatric Exam Psychiatric exam: Normal Affect, Normal Mood - Skin Skin Exam: Dry, Intact, Normal Color, Warm Assessment and Plan - Assessment and Plan (Free Text) Assessment: Patient is an 83 year old female with past medical history of CHF, T2DM, HLD, COPD on home O2, pulmonary HTN, urinary incontinence presenting with back pain, abdominal pain and cough. Plan: Chronic back pain -Percocet prn and lidoderm for pain -pain management on consult, awaiting possible epidural -per neurosx, recommend kyphoplasty -patient refusing kyphoplasty evaluation -09/15 lumbar spine MRI shows multiple compression fractures. -09/[address] shows no acute pathology -09/10 CTAP shows new compression deformity L1 vertebral body, evidence of prior kyphoplasty L1, compression deformities L2 and L5, profound osteopenia. -will await IR recommendations for kyphoplasty given new MRI findings -PT/OT eval recommend [facility]. Patient refuses rehab at this time Abdominal pain - resolved -no intervention at this time for ventral hernia as per surgery recs -CT A/P shows constipation without fecal impaction or obstruction -superimposed opioid induced constipation present -continue colace, miralax PRN, simethicone Cough - resolved -afebrile, no leukocytosis -09/10 CXR shows no active disease -continue duoneJose kahna -UCx, BCx neg x2 -procal low, flu negative -Pulmonology on consult Pulmonary HTN -home Revatio HLD -home Lipitor PPX/Diet -dexilant, lovenox -Diet Patient seen and case discussed with attending, Dr. Oliveira <Brennon Oliveira - Last Filed: 09/25/18 07:54> Objective - Vital Signs/Intake and Output Vital Signs (last 24 hours): Temp Pulse Resp BP Pulse Ox 97.9 F 96 H 20 100/46 L 98 09/23/18 06:00 09/23/18 14:00 09/23/18 14:00 09/23/18 14:00 09/23/18 14:00 - Labs Labs: 09/21/18 07:35 09/21/18 07:35 Attending/Attestation - Attestation I have personally seen and examined this patient.: Yes I have fully participated in the care of the patient.: Yes I have reviewed all pertinent clinical information, including history, physical exam and plan: Yes Notes (Text): 83 y/o F with chronic back pain, imaging consistent with compression deformities of L1, L2 and L5. Neurosurgery recommended kyphoplasty, pt refused given her age and comorbidities. 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
[2018-09-20] MEDS: Simethicone 40 mg/0.6 ml Liquid (30 ml) PO PRN (16:07)
[2018-09-21] MEDS: Sildenafil 20 MG TAB PO SCH ×3 (02:22→21:36)
[2018-09-21] MEDS: Oxycodone/Acetaminophen 5/325 mg Tab PO PRN ×4 (05:52→23:33)
--- NOTE | 2018-09-21 07:07 | CP.PCM.PN ---
<Bouchra Virk L - Last Filed: 09/21/18 13:49> Subjective - Date & Time of Evaluation Date of Evaluation: 09/21/18 Time of Evaluation: 07:06 - Subjective Subjective: Resident Progress Note for Hospitalist Service Patient examined at bedside. No acute events overnight. Patient's back pain is unchanged from prior. She had a bowel movement yesterday. Denies fevers, chills, chest pain, shortness of breath, abdominal pain, diarrhea, dysuria. Plan for epidural by pain management tomorrow. Objective - Vital Signs/Intake and Output Vital Signs (last 24 hours): Temp Pulse Resp BP Pulse Ox 98 F 80 18 127/69 99 09/20/18 14:00 09/20/18 14:00 09/20/18 14:00 09/20/18 14:00 09/20/18 14:00 Intake and Output: 09/21/18 09/21/18 06:59 18:59 Intake Total 620 Balance 620 - Medications Medications: Current Medications Albuterol/Ipratropium (Duoneb 3 Mg/0.5 Mg (3 Ml) Ud) 3 ml IH [id number] PRN PRN Reason: Shortness of Breath Last Admin: 09/17/18 07:33 Dose: 3 ml Arformoterol Tartrate (Brovana) 15 mcg IH [id number] [facility] Last Admin: 09/20/18 20:18 Dose: 15 mcg Aspirin (Aspirin Chewable) 81 mg PO DAILY [facility] Last Admin: 09/20/18 09:13 Dose: 81 mg Atorvastatin Calcium (Lipitor) 10 mg PO DIN [facility] Last Admin: 09/20/18 18:26 Dose: 10 mg Budesonide (Pulmicort Respules) 0.5 mg IH [id number] [facility] Last Admin: 09/20/18 20:18 Dose: 0.5 mg Calcium/Vitamin D (Oscal-D 250 Mg-125 Units Tab) 1 tab PO DAILY [facility] Last Admin: 09/20/18 09:13 Dose: 1 tab Docusate Sodium (Colace) 100 mg PO Q8 [facility] Last Admin: 09/21/18 05:52 Dose: 100 mg Enoxaparin Sodium (Lovenox) 40 mg SC DAILY [facility]; Protocol Last Admin: 09/20/18 09:12 Dose: 40 mg Ferrous Sulfate (Feosol) 324 mg PO DAILY [facility] Last Admin: 09/20/18 09:07 Dose: 324 mg Home Med (Home Med) 1 unit PO DAILY [facility] Last Admin: 09/20/18 09:13 Dose: 1 unit Lidocaine (Lidoderm) 1 ea TD DAILY [facility] Last Admin: 09/20/18 09:13 Dose: 1 ea Ondansetron HCl (Zofran Inj) 4 mg IVP Q6H PRN PRN Reason: Nausea/Vomiting Oxycodone/Acetaminophen (Percocet 5/325 Mg Tab) 1 tab PO Q6H PRN PRN Reason: Pain, severe (8-10) Stop: 09/22/18 17:31 Last Admin: 09/21/18 05:52 Dose: 1 tab Polyethylene Glycol (Miralax) 17 gm PO DAILY [facility] Last Admin: 09/20/18 09:12 Dose: Not Given Sildenafil Citrate (Revatio) 20 mg PO Q12H [facility] Last Admin: 09/21/18 02:22 Dose: 20 mg Simethicone (Mylicon Liq) 40 mg PO QID PRN PRN Reason: GI distress Last Admin: 09/20/18 16:07 Dose: 40 mg - Labs Labs: 09/20/18 06:10 09/20/18 06:10 - Additional Findings Additional findings: - Constitutional Appears: No Acute Distress, Cachectic - Head Exam Head Exam: ATRAUMATIC, NORMOCEPHALIC - Eye Exam Eye Exam: EOMI, Normal appearance - Respiratory Exam Respiratory Exam: Clear to Auscultation Bilateral, NORMAL BREATHING PATTERN. absent: Accessory Muscle Use - Cardiovascular Exam Cardiovascular Exam: regular rate, +S1, +S2 - GI/Abdominal Exam GI & Abdominal Exam: Soft, Normal Bowel Sounds. absent: Guarding, Rebound - Extremities Exam Extremities Exam: Normal Inspection. absent: Calf Tenderness - Back Exam Back Exam: vertebral tenderness along central lumbar spine. absent: CVA tenderness (L), CVA tenderness (R), motor/sensory deficits in B/L upper/lower extremities. - Neurological Exam Neurological Exam: Alert, Awake, Oriented x3 - Psychiatric Exam Psychiatric exam: Normal Affect, Normal Mood - Skin Skin Exam: Dry, Intact, Normal Color, Warm Assessment and Plan - Assessment and Plan (Free Text) Assessment: Patient is an 83 year old female with past medical history of CHF, T2DM, HLD, COPD on home O2, pulmonary HTN, urinary incontinence presenting with back pain, abdominal pain and cough. Plan: Chronic back pain - Percocet prn and lidoderm for pain - pain management on consult, awaiting epidural - per neurosx, recommend kyphoplasty - patient refusing kyphoplasty evaluation - 09/15 lumbar spine MRI shows multiple compression fractures - 09/[address] shows no acute pathology - 09/10 CTAP shows new compression deformity L1 vertebral body, evidence of prior kyphoplasty L1, compression deformities L2 and L5, profound osteopenia. - will await IR recommendations for kyphoplasty given new MRI findings - PT/OT eval recommend [facility]. Patient refuses rehab at this time Abdominal pain - resolved - no intervention at this time for ventral hernia as per surgery recs - CT A/P shows constipation without fecal impaction or obstruction - superimposed opioid induced constipation present - continue colace, miralax PRN, simethicone Cough - resolved - afebrile, no leukocytosis - 09/10 CXR shows no active disease - continue duonebs, Brovana - UCx, BCx neg x2 - procal low, flu negative - Pulmonology on consult Pulmonary HTN - home Revatio HLD - home Lipitor PPX - dexilant, lovenox Case discussed with Dr. Don Virk PGY-1 <Doe Ochoa - Last Filed: 09/21/18 14:48> Objective - Vital Signs/Intake and Output Vital Signs (last 24 hours): Temp Pulse Resp BP Pulse Ox 97.9 F 80 18 110/20 L 97 09/21/18 06:00 09/21/18 06:00 09/21/18 06:00 09/21/18 06:00 09/21/18 06:00 Intake and Output: 09/21/18 09/21/18 06:59 18:59 Intake Total 620 Balance 620 - Medications Medications: Current Medications Albuterol/Ipratropium (Duoneb 3 Mg/0.5 Mg (3 Ml) Ud) 3 ml IH [id number] PRN PRN Reason: Shortness of Breath Last Admin: 09/17/18 07:33 Dose: 3 ml Arformoterol Tartrate (Brovana) 15 mcg IH [id number] [facility] Last Admin: 09/21/18 07:17 Dose: 15 mcg Aspirin (Aspirin Chewable) 81 mg PO DAILY [facility] Last Admin: 09/21/18 09:52 Dose: 81 mg Atorvastatin Calcium (Lipitor) 10 mg PO DIN [facility] Last Admin: 09/20/18 18:26 Dose: 10 mg Budesonide (Pulmicort Respules) 0.5 mg IH [id number] [facility] Last Admin: 09/21/18 07:17 Dose: 0.5 mg Calcium/Vitamin D (Oscal-D 250 Mg-125 Units Tab) 1 tab PO DAILY [facility] Last Admin: 09/21/18 09:52 Dose: 1 tab Docusate Sodium (Colace) 100 mg PO Q8 [facility] Last Admin: 09/21/18 14:30 Dose: Not Given Enoxaparin Sodium (Lovenox) 40 mg SC DAILY [facility]; Protocol Last Admin: 09/20/18 09:12 Dose: 40 mg Ferrous Sulfate (Feosol) 324 mg PO DAILY [facility] Last Admin: 09/21/18 09:52 Dose: 324 mg Home Med (Home Med) 1 unit PO DAILY [facility] Last Admin: 09/21/18 09:53 Dose: 1 unit Lidocaine (Lidoderm) 1 ea TD DAILY [facility] Last Admin: 09/21/18 09:54 Dose: 1 ea Ondansetron HCl (Zofran Inj) 4 mg IVP Q6H PRN PRN Reason: Nausea/Vomiting Oxycodone/Acetaminophen (Percocet 5/325 Mg Tab) 1 tab PO Q6H PRN PRN Reason: Pain, severe (8-10) Stop: 09/22/18 17:31 Last Admin: 09/21/18 11:15 Dose: 1 tab Polyethylene Glycol (Miralax) 17 gm PO DAILY [facility] Last Admin: 09/21/18 09:52 Dose: 17 gm Sildenafil Citrate (Revatio) 20 mg PO Q12H [facility] Last Admin: 09/21/18 09:56 Dose: 20 mg Simethicone (Mylicon Liq) 40 mg PO QID PRN PRN Reason: GI distress Last Admin: 09/20/18 16:07 Dose: 40 mg - Labs Labs: 09/21/18 07:35 09/21/18 07:35 Attending/Attestation - Attestation I have personally seen and examined this patient.: Yes I have fully participated in the care of the patient.: Yes I have reviewed all pertinent clinical information, including history, physical exam and plan: Yes
[2018-09-21] MEDS: Arformoterol 15 mcg/2 ml Inh Sol IH SCH ×3 (07:13→19:31)
[2018-09-21] MEDS: Budesonide 0.5 mg/2 ml Inhal Susp UD IH SCH ×3 (07:13→19:31)
[2018-09-21 08:17] LABS: BASO # 0.02 K/mm3 (0.0-2.0); BASO % 0.5 % (0.0-3.0); EOS # 0.3 (0.0-0.7); EOS % 5.7 % (1.5-5.0); GRAN # 2.59 (1.4-6.5); GRAN % 59.3 % (50.0-68.0); HEMOGLOBIN 10.1 g/dL (12.0-16.0); LYMPH % 23.3 % (22.0-35.0); MEAN CELL VOLUME 96.3 fl (80.0-105.0); MEAN CORPUSCULAR HEMOGLOBIN 31.3 pg (25.0-35.0); MEAN CORPUSCULAR HGB CONC 32.5 g/dl (31.0-37.0); MEAN PLATELET VOLUME 11.1 fl (7.0-11.0); MONO # 0.5 (0.1-0.6); MONO % 11.2 % (1.0-6.0); RBC 3.23 10^6/uL (3.5-6.1); RED CELL DISTRIBUTION WIDTH 12.5 % (11.5-14.5); WHITE BLOOD COUNT 4.4 10^3/uL (4.5-11.0)
[2018-09-21 08:31] LABS: ALB/GLOB RATIO 1.3 (1.1-1.8); ALBUMIN 3.4 g/dL (3.0-4.8); ALT/SGPT 33 U/L (7-56); AST/SGOT 24 U/L (14-36); BLOOD UREA NITROGEN 20 mg/dL (7-21); CALCIUM 9.2 mg/dL (8.4-10.5); GFR NON-AFRICAN AMERICAN > 60
[2018-09-21] MEDS: POLYETHYLENE GLYCOL 3350 17 GM/Dose PACKET PO SCH (09:52)
[2018-09-21] MEDS: Calcium-Vit D 250 mg-125 Units Tab UD PO SCH (09:52)
[2018-09-21] MEDS: DEXILANT 60 MG PO SCH (09:53)
[2018-09-21] MEDS: Lidocaine 5% Patch TD SCH (09:54)
--- NOTE | 2018-09-21 12:30 | PN ---
DATE: 09/21/2018 PULMONARY NOTE SUBJECTIVE: The patient appears uncomfortable this morning. She is not short of breath at rest. However, she does complain of back pain. PHYSICAL EXAMINATION: VITAL SIGNS: (last noted in the computer): Temperature is 98, pulse 80, respirations 18, blood pressure 127/69. Oxygen saturation on nasal cannula is 99%. HEENT: Normocephalic, atraumatic. No JVD. CARDIOVASCULAR: Systolic ejection murmur at the lower left sternal border. No S3 gallop. LUNGS: Clear bilaterally. GI: Abdomen is soft, nontender and nondistended. Bowel sounds are positive. EXTREMITIES: Mild edema. No cyanosis, no clubbing. Calves are nontender to palpation. SKIN: No acute rash. NEUROLOGIC: Exam limited at the present time. IMPRESSION: 1. Back pain, compression fracture L1 vertebrae. 2. Mild acute bronchitis - resolved. 3. End-stage chronic obstructive pulmonary disease. 4. Pulmonary hypertension. 5. Mild anemia. 6. Coronary artery disease. PLAN: The patient appears uncomfortable this morning. She is not short of breath at rest. However, she does complain of back pain. On physical exam, her lungs remain clear. In addition, the oxygen saturation on nasal cannula is 99%. I will continue the current nebulizer treatments and inhaled steroids for now. The patient also remains on her Revatio - for the pulmonary hypertension. The clinical status of the patient certainly has improved - compared to the initial presentation. We are awaiting additional interventional radiology recommendations. Unfortunately, the overall status/prognosis for this patient remains poor. I will discuss the above with the attending physician. Evgeny Briggs MD [facility]
[2018-09-21] MEDS: Simethicone 40 mg/0.6 ml Liquid (30 ml) PO PRN (15:16)
[2018-09-22] MEDS: Oxycodone/Acetaminophen 5/325 mg Tab PO PRN ×2 (05:34→11:06)
[2018-09-22] MEDS: Budesonide 0.5 mg/2 ml Inhal Susp UD IH SCH ×2 (07:30→20:28)
[2018-09-22] MEDS: Arformoterol 15 mcg/2 ml Inh Sol IH SCH ×2 (07:30→20:28)
--- NOTE | 2018-09-22 07:39 | CP.PCM.PN ---
<SullyNaydaljit L - Last Filed: 09/22/18 18:37> Subjective - Date & Time of Evaluation Date of Evaluation: 09/22/18 Time of Evaluation: 07:38 - Subjective Subjective: Resident Progress Note for Hospitalist Service Patient examined at bedside. No acute events overnight. Patient is s/p epidural by pain management. Patient reports improvement in pain. Patient also admits to increase in urinary urgency which began today. Patient denies burning with urination, incontinence, fevers, chills. Objective - Vital Signs/Intake and Output Vital Signs (last 24 hours): Temp Pulse Resp BP Pulse Ox 97.9 F 77 18 135/69 100 09/22/18 07:15 09/22/18 07:15 09/22/18 07:15 09/22/18 07:15 09/22/18 07:15 Intake and Output: 09/22/18 09/22/18 06:59 18:59 Intake Total 360 Balance 360 - Medications Medications: Current Medications Albuterol/Ipratropium (Duoneb 3 Mg/0.5 Mg (3 Ml) Ud) 3 ml IH [id number] PRN PRN Reason: Shortness of Breath Last Admin: 09/17/18 07:33 Dose: 3 ml Arformoterol Tartrate (Brovana) 15 mcg IH [id number] [facility] Last Admin: 09/22/18 07:30 Dose: Not Given Aspirin (Aspirin Chewable) 81 mg PO DAILY [facility] Last Admin: 09/21/18 09:52 Dose: 81 mg Atorvastatin Calcium (Lipitor) 10 mg PO DIN [facility] Last Admin: 09/21/18 17:47 Dose: 10 mg Budesonide (Pulmicort Respules) 0.5 mg IH [id number] [facility] Last Admin: 09/22/18 07:30 Dose: Not Given Calcium/Vitamin D (Oscal-D 250 Mg-125 Units Tab) 1 tab PO DAILY [facility] Last Admin: 09/21/18 09:52 Dose: 1 tab Docusate Sodium (Colace) 100 mg PO Q8 [facility] Last Admin: 09/22/18 05:36 Dose: Not Given Enoxaparin Sodium (Lovenox) 40 mg SC DAILY [facility]; Protocol Last Admin: 09/20/18 09:12 Dose: 40 mg Ferrous Sulfate (Feosol) 324 mg PO DAILY [facility] Last Admin: 09/21/18 09:52 Dose: 324 mg Home Med (Home Med) 1 unit PO DAILY [facility] Last Admin: 09/21/18 09:53 Dose: 1 unit Lidocaine (Lidoderm) 1 ea TD DAILY [facility] Last Admin: 09/21/18 09:54 Dose: 1 ea Ondansetron HCl (Zofran Inj) 4 mg IVP Q6H PRN PRN Reason: Nausea/Vomiting Oxycodone/Acetaminophen (Percocet 5/325 Mg Tab) 1 tab PO Q6H PRN PRN Reason: Pain, severe (8-10) Stop: 09/22/18 17:31 Last Admin: 09/22/18 05:34 Dose: 1 tab Polyethylene Glycol (Miralax) 17 gm PO DAILY [facility] Last Admin: 09/21/18 09:52 Dose: 17 gm Sildenafil Citrate (Revatio) 20 mg PO Q12H [facility] Last Admin: 09/21/18 21:36 Dose: 20 mg Simethicone (Mylicon Liq) 40 mg PO QID PRN PRN Reason: GI distress Last Admin: 09/21/18 15:16 Dose: 40 mg - Labs Labs: 09/21/18 07:35 09/21/18 07:35 - Additional Findings Additional findings: - Constitutional Appears: No Acute Distress, Cachectic - Head Exam Head Exam: ATRAUMATIC, NORMOCEPHALIC - Eye Exam Eye Exam: EOMI, Normal appearance - Respiratory Exam Respiratory Exam: Clear to Auscultation Bilateral, NORMAL BREATHING PATTERN. absent: Accessory Muscle Use - Cardiovascular Exam Cardiovascular Exam: regular rate, +S1, +S2 - GI/Abdominal Exam GI & Abdominal Exam: Soft, Normal Bowel Sounds. absent: Guarding, Rebound - Extremities Exam Extremities Exam: Normal Inspection. absent: Calf Tenderness - Back Exam Back Exam: vertebral tenderness along central lumbar spine (improved). absent: CVA tenderness (L), CVA tenderness (R), motor/sensory deficits in B/L upper/lower extremities. - Neurological Exam Neurological Exam: Alert, Awake, Oriented x3 - Psychiatric Exam Psychiatric exam: Normal Affect, Normal Mood - Skin Skin Exam: Dry, Intact, Normal Color, Warm Assessment and Plan - Assessment and Plan (Free Text) Assessment: Patient is an 83 year old female with past medical history of CHF, T2DM, HLD, COPD on home O2, pulmonary HTN, urinary incontinence presenting with back pain, abdominal pain and cough. Plan: Chronic back pain - Percocet prn and lidoderm for pain - pain management on consult, s/p epidural - per neurosx, recommend kyphoplasty - patient refusing kyphoplasty evaluation - 09/15 lumbar spine MRI shows multiple compression fractures - 09/[address] shows no acute pathology - 09/10 CTAP shows new compression deformity L1 vertebral body, evidence of prior kyphoplasty L1, compression deformities L2 and L5, profound osteopenia. - will await IR recommendations for kyphoplasty given new MRI findings - PT/OT eval recommend [facility]. Patient refuses rehab at this time UTI - followup UA, UCx - Bactrim PO Abdominal pain - resolved - no intervention at this time for ventral hernia as per surgery recs - CT A/P shows constipation without fecal impaction or obstruction - superimposed opioid induced constipation present - continue colace, miralax PRN, simethicone Cough - resolved - afebrile, no leukocytosis - 09/10 CXR shows no active disease - continue duonebs, Brovana - UCx, BCx neg x2 - procal low, flu negative - Pulmonology on consult Pulmonary HTN - home Revatio HLD - home Lipitor PPX - dexilant, lovenox Case discussed with Dr. Don Virk PGY-1 <Doe Ochoa - Last Filed: 09/23/18 13:55> Objective - Vital Signs/Intake and Output Vital Signs (last 24 hours): Temp Pulse Resp BP Pulse Ox 97.9 F 77 18 125/79 100 09/23/18 06:00 09/23/18 06:00 09/23/18 06:00 09/23/18 06:00 09/23/18 06:00 Intake and Output: 09/23/18 09/23/18 06:59 18:59 Intake Total 360 Balance 360 - Medications Medications: Current Medications Albuterol/Ipratropium (Duoneb 3 Mg/0.5 Mg (3 Ml) Ud) 3 ml IH [id number] PRN PRN Reason: Shortness of Breath Last Admin: 09/17/18 07:33 Dose: 3 ml Arformoterol Tartrate (Brovana) 15 mcg IH [id number] [facility] Last Admin: 09/23/18 09:16 Dose: Not Given Aspirin (Aspirin Chewable) 81 mg PO DAILY [facility] Last Admin: 09/23/18 10:25 Dose: 81 mg Atorvastatin Calcium (Lipitor) 10 mg PO DIN [facility] Last Admin: 09/22/18 17:40 Dose: 10 mg Budesonide (Pulmicort Respules) 0.5 mg IH [id number] [facility] Last Admin: 09/23/18 09:16 Dose: Not Given Calcium/Vitamin D (Oscal-D 250 Mg-125 Units Tab) 1 tab PO DAILY [facility] Last Admin: 09/23/18 10:25 Dose: 1 tab Docusate Sodium (Colace) 100 mg PO Q8 [facility] Last Admin: 09/23/18 10:23 Dose: Not Given Enoxaparin Sodium (Lovenox) 40 mg SC DAILY [facility]; Protocol Last Admin: 09/23/18 10:22 Dose: 40 mg Ferrous Sulfate (Feosol) 324 mg PO DAILY [facility] Last Admin: 09/23/18 10:25 Dose: 324 mg Home Med (Home Med) 1 unit PO DAILY [facility] Last Admin: 09/23/18 10:29 Dose: 1 unit Lactobacillus Acidophilus (Bacid Acidophilus) 1 cap PO BID [facility] Last Admin: 09/23/18 10:26 Dose: 1 cap Lidocaine (Lidoderm) 1 ea TD DAILY [facility] Last Admin: 09/23/18 10:26 Dose: 1 ea Megestrol Acetate (Megace) 40 mg PO DAILY [facility] Last Admin: 09/23/18 10:24 Dose: 40 mg Ondansetron HCl (Zofran Inj) 4 mg IVP Q6H PRN PRN Reason: Nausea/Vomiting Oxycodone/Acetaminophen (Percocet 5/325 Mg Tab) 2 tab PO Q4H PRN PRN Reason: Pain, severe (8-10) Stop: 09/26/18 11:53 Last Admin: 09/23/18 12:25 Dose: 2 tab Polyethylene Glycol (Miralax) 17 gm PO DAILY [facility] Last Admin: 09/23/18 10:26 Dose: 17 gm Sildenafil Citrate (Revatio) 20 mg PO Q12H [facility] Last Admin: 09/23/18 10:25 Dose: 20 mg Simethicone (Mylicon Liq) 40 mg PO QID PRN PRN Reason: GI distress Last Admin: 09/21/18 15:16 Dose: 40 mg Trimethoprim/Sulfamethoxazole (Bactrim Ss Tab) 1 tab PO Q6 [facility]; Protocol Last Admin: 09/23/18 10:23 Dose: Not Given - Labs Labs: 09/21/18 07:35 09/21/18 07:35 Attending/Attestation - Attestation I have personally seen and examined this patient.: Yes I have fully participated in the care of the patient.: Yes I have reviewed all pertinent clinical information, including history, physical exam and plan: Yes
[2018-09-22] MEDS ORDERED: Bacitracin 500 Units/gm Oint Foilpak UD ONE (07:42)
[2018-09-22] MEDS ORDERED: Sodium Chloride 0.9% 10 ML IV ONE (07:43)
[2018-09-22] MEDS ORDERED: Bupivacaine 0.25% 50 ML INJ IJ ONE (07:43)
[2018-09-22] MEDS ORDERED: Sodium Bicarbonate (8.4%) 50 mEq Vial ONE (07:43)
[2018-09-22] MEDS ORDERED: Triamcinolone Acetonide 40 mg/mL Inj ONE ×2 (07:43→08:50)
[2018-09-22] MEDS ORDERED: Lidocaine 1% Inj (20ml) ONE (07:44)
[2018-09-22] MEDS ORDERED: Iohexol 240 (50 ml) ONE (07:44)
--- NOTE | 2018-09-22 08:54 | PN ---
DATE: 09/22/2018 PULMONARY NOTE SUBJECTIVE: The patient appears more comfortable this morning. She is not short of breath at rest. PHYSICAL EXAMINATION: VITAL SIGNS: Temperature is 97.9, pulse 77, respirations 18, blood pressure 135/69 and oxygen saturation on nasal cannula is 100%. HEENT: Normocephalic and atraumatic. No JVD. CARDIOVASCULAR: Systolic ejection murmur at the lower left sternal border. No S3 gallop. LUNGS: Clear bilaterally. EXTREMITIES: Mild edema. No cyanosis or clubbing. Calves are nontender to palpation. GI: Abdomen is soft, nontender and nondistended. Bowel sounds are positive. SKIN: No acute rash. NEUROLOGIC: Exam limited at the present time. IMPRESSION: 1. Back pain, compression fracture, L1 vertebrae. 2. Mild acute bronchitis - resolved. 3. End-stage chronic obstructive pulmonary disease. 4. Pulmonary hypertension. 5. Mild anemia. 6. Coronary artery disease. PLAN: The patient appears more comfortable this morning. She is not short of breath at rest. She does state to feeling better overall. On physical exam, her lungs remain clear. In addition, the oxygen saturation on nasal cannula is 100%. I will continue the current nebulizer treatments and inhaled steroids for now. The patient also remains on Revatio - for her pulmonary hypertension. I did discuss the case with the patient and nurse at length. The patient is for an epidural injection later this morning. Input by pain management is noted. Clinical status of the patient is certainly improved - compared to the initial presentation. However, unfortunately, the future status/prognosis for this patient remains poor. I will discuss the above with the attending physician. Evgeny Briggs MD JOSEPH
[2018-09-22] MEDS: Calcium-Vit D 250 mg-125 Units Tab UD PO SCH (11:06)
[2018-09-22] MEDS: POLYETHYLENE GLYCOL 3350 17 GM/Dose PACKET PO SCH (11:06)
[2018-09-22] MEDS: DEXILANT 60 MG PO SCH (11:07)
[2018-09-22] MEDS: Lidocaine 5% Patch TD SCH (11:07)
[2018-09-22] MEDS: Sildenafil 20 MG TAB PO SCH ×2 (11:08→21:43)
--- NOTE | 2018-09-22 13:10 | RAD ---
Date of service: 09/22/2018 PROCEDURE: Fluoro epidural spine injection HISTORY: SELECTIVE NERVE ROOT BLOCK COMPARISON: TECHNIQUE: Fluoroscopy was provided in the operating room. 41.1 sec of fluoro time. 0.205 mGy cumulative dose. Four images submitted FINDINGS: The study shows placement of needles and contrast around the nerve roots at L4 and L5 bilaterally IMPRESSION: As above
[2018-09-22] MEDS: Tmp-Smz 400 mg-80 mg SS Tab PO SCH ×2 (17:39→17:43)
[2018-09-22] MEDS: Lactobacillus Acidophilus 500 MU Cap PO SCH (17:39)
[2018-09-22] MEDS ORDERED: Oxycodone/Acetaminophen 5/325 mg Tab PO ONE (18:11)
--- NOTE | 2018-09-23 07:54 | CP.PCM.PN ---
Objective - Vital Signs/Intake and Output Vital Signs (last 24 hours): Temp Pulse Resp BP Pulse Ox 98.7 F 85 20 148/87 94 L 09/22/18 22:44 09/22/18 22:44 09/22/18 22:44 09/22/18 22:44 09/22/18 22:44 Intake and Output: 09/23/18 09/23/18 06:59 18:59 Intake Total 360 Balance 360 - Medications Medications: Current Medications Albuterol/Ipratropium (Duoneb 3 Mg/0.5 Mg (3 Ml) Ud) 3 ml IH [id number] PRN PRN Reason: Shortness of Breath Last Admin: 09/17/18 07:33 Dose: 3 ml Arformoterol Tartrate (Brovana) 15 mcg IH [id number] [facility] Last Admin: 09/22/18 20:28 Dose: 15 mcg Aspirin (Aspirin Chewable) 81 mg PO DAILY [facility] Last Admin: 09/22/18 11:06 Dose: 81 mg Atorvastatin Calcium (Lipitor) 10 mg PO DIN [facility] Last Admin: 09/22/18 17:40 Dose: 10 mg Budesonide (Pulmicort Respules) 0.5 mg IH [id number] [facility] Last Admin: 09/22/18 20:28 Dose: 0.5 mg Calcium/Vitamin D (Oscal-D 250 Mg-125 Units Tab) 1 tab PO DAILY [facility] Last Admin: 09/22/18 11:06 Dose: 1 tab Docusate Sodium (Colace) 100 mg PO Q8 [facility] Last Admin: 09/22/18 21:43 Dose: Not Given Enoxaparin Sodium (Lovenox) 40 mg SC DAILY [facility]; Protocol Last Admin: 09/20/18 09:12 Dose: 40 mg Ferrous Sulfate (Feosol) 324 mg PO DAILY [facility] Last Admin: 09/22/18 11:07 Dose: 324 mg Home Med (Home Med) 1 unit PO DAILY [facility] Last Admin: 09/22/18 11:07 Dose: 1 unit Lactobacillus Acidophilus (Bacid Acidophilus) 1 cap PO BID [facility] Last Admin: 09/22/18 17:39 Dose: 1 cap Lidocaine (Lidoderm) 1 ea TD DAILY [facility] Last Admin: 09/22/18 11:07 Dose: 1 ea Megestrol Acetate (Megace) 40 mg PO DAILY [facility] Last Admin: 09/22/18 17:40 Dose: 40 mg Ondansetron HCl (Zofran Inj) 4 mg IVP Q6H PRN PRN Reason: Nausea/Vomiting Polyethylene Glycol (Miralax) 17 gm PO DAILY [facility] Last Admin: 09/22/18 11:06 Dose: 17 gm Sildenafil Citrate (Revatio) 20 mg PO Q12H [facility] Last Admin: 09/22/18 21:43 Dose: 20 mg Simethicone (Mylicon Liq) 40 mg PO QID PRN PRN Reason: GI distress Last Admin: 09/21/18 15:16 Dose: 40 mg Trimethoprim/Sulfamethoxazole (Bactrim Ss Tab) 1 tab PO Q6 [facility]; Protocol Last Admin: 09/22/18 17:43 Dose: Not Given - Labs Labs: 09/21/18 07:35 09/21/18 07:35
[2018-09-23 08:30] VITALS: TEMP 97.9
--- NOTE | 2018-09-23 08:36 | PN ---
DATE: 09/23/2018 SUBJECTIVE: The patient appears comfortable this morning. She is not short of breath at rest. She does complain of persistent back pain. PHYSICAL EXAMINATION: VITAL SIGNS: Temperature 98.7, pulse 85, respirations 18/20, blood pressure 148/87. Oxygen saturation on nasal cannula is 94%--100%. HEENT: Normocephalic, atraumatic. No JVD. CARDIOVASCULAR: Systolic ejection murmur at the lower left sternal border. No S3 gallop. LUNGS: Clear bilaterally. EXTREMITIES: Mild edema. No cyanosis or clubbing. Calves are nontender to palpation. GASTROINTESTINAL: Abdomen is soft, nontender and nondistended. Bowel sounds are positive. SKIN: No acute rash. NEUROLOGIC: Exam limited at the present time. IMPRESSION: 1. Back pain, compression fracture, L1 vertebrae. 2. Mild acute bronchitis - resolved. 3. End-stage chronic obstructive pulmonary disease. 4. Pulmonary hypertension. 5. Mild anemia. 6. Coronary artery disease. PLAN: The patient appears comfortable this morning. She is not short of breath at rest. She does state to persistent back pain. However, she does state to feeling better overall. On physical exam, her lungs remain clear. In addition, there is no significant alveolar-arterial gradient. I will continue the current nebulizer treatments and inhaled steroids for now. The patient also remains on Revatio - for the pulmonary hypertension. The patient did receive an epidural injection yesterday. Input by Dr. Hurtado is noted. Hopefully, the patient's back pain will improve/decrease. Clinical status of the patient is certainly improved - compared to the initial presentation. However, unfortunately, the future status/prognosis for this chronically ill, elderly patient remains poor. All are aware. I will discuss the above with the attending physician. Evgeny Briggs MD MTDD
[2018-09-23] MEDS: Arformoterol 15 mcg/2 ml Inh Sol IH SCH (09:16)
[2018-09-23] MEDS: Budesonide 0.5 mg/2 ml Inhal Susp UD IH SCH (09:16)
[2018-09-23] MEDS: Enoxaparin 40 mg Syringe SC SCH (10:22)
[2018-09-23] MEDS: Tmp-Smz 400 mg-80 mg SS Tab PO SCH ×4 (10:23→17:34)
[2018-09-23] MEDS: Calcium-Vit D 250 mg-125 Units Tab UD PO SCH (10:25)
[2018-09-23] MEDS: Sildenafil 20 MG TAB PO SCH (10:25)
[2018-09-23] MEDS: Lactobacillus Acidophilus 500 MU Cap PO SCH ×2 (10:26→17:34)
[2018-09-23] MEDS: POLYETHYLENE GLYCOL 3350 17 GM/Dose PACKET PO SCH (10:26)
[2018-09-23] MEDS: Lidocaine 5% Patch TD SCH (10:26)
[2018-09-23] MEDS: DEXILANT 60 MG PO SCH (10:29)
[2018-09-23] MEDS ORDERED: Oxycodone/Acetaminophen 5/325 mg Tab PO PRN (11:52)
[2018-09-23 14:35] VITALS: BP 100/46; PULSE 96; RESP 20; O2SAT 98
--- NOTE | 2018-09-23 16:16 | CP.PCM.DIS ---
<VirkNaydaljit L - Last Filed: 09/23/18 16:27> Provider - Provider Date of Admission: 09/10/18 10:48 Attending physician: Meme Keating MD Primary care physician: Dr. Valentine Consults: 09/10/18 11:42 Pulmonology Consult Routine Comment: Consulting Provider: Evgeny Briggs Consulting Physician: Evgeny Briggs Reason for Consult: h/o COPD, Cough/family request 09/10/18 11:57 General Surgery Consult Routine Comment: Consulting Provider: Lauro Ferrer Consulting Physician: Lauro Ferrer Reason for Consult: ventral hernia 09/11/18 13:45 Physician Consult Routine Comment: Consulting Provider: Felix Muniz Consulting Physician: Felix Muniz Reason for Consult: L1 compression deformity 09/13/18 13:06 Physician Consult Routine Comment: Consulting Provider: Harrison Blackburn Consulting Physician: Harrison Blackburn Reason for Consult: kyphoplasty 09/13/18 13:09 Physician Consult Routine Comment: Consulting Provider: Ben Hurtado Consulting Physician: Ben Hurtado Reason for Consult: consider epidural injection, severe pain 09/13/18 15:10 Physician Consult Routine Comment: consider epidurl injection, severe pain Consulting Provider: Ebony Khan Consulting Physician: Ebony Khan Reason for Consult: consider epidurl injection, severe pain 09/15/18 17:43 Physician Consult Routine Comment: Consulting Provider: Reilly Warren Consulting Physician: Reilly Warren Reason for Consult: multiple acute compression fractures Time Spent in preparation of Discharge (in minutes): 35 Diagnosis - Discharge Diagnosis (1) Compression fracture Status: Acute (2) 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 (3) Abdominal pain Status: Resolved (4) Pulmonary hypertension Status: Chronic (5) COPD (chronic obstructive pulmonary disease) Status: Chronic Hospital Course - Lab Results Lab Results: Micro Results 09/10/18 08:00 Blood-Venous Blood Culture - Final NO GROWTH AFTER 5 DAYS 09/10/18 08:00 Blood-Venous Gram Stain - Final TEST NOT PERFORMED 09/10/18 07:45 Blood-Venous Blood Culture - Final NO GROWTH AFTER 5 DAYS 09/10/18 07:45 Blood-Venous Gram Stain - Final TEST NOT PERFORMED 09/10/18 08:00 Urine,Catheterized Urine Culture - Final No Growth (<1,000 CFU/ML) Most Recent Lab Values WBC 4.4 10^3/uL (4.5-11.0) L 09/21/18 07:35 RBC 3.23 10^6/uL (3.5-6.1) L 09/21/18 07:35 Hgb 10.1 g/dL (12.0-16.0) L 09/21/18 07:35 Hct 31.1 % (36.0-48.0) L 09/21/18 07:35 MCV 96.3 fl (80.0-105.0) 09/21/18 07:35 MCH 31.3 pg (25.0-35.0) 09/21/18 07:35 MCHC 32.5 g/dl (31.0-37.0) 09/21/18 07:35 RDW 12.5 % (11.5-14.5) 09/21/18 07:35 Plt Count 146 10^3/uL (120.0-450.0) 09/21/18 07:35 MPV 11.1 fl (7.0-11.0) H 09/21/18 07:35 Gran % 59.3 % (50.0-68.0) 09/21/18 07:35 Lymph % (Auto) 23.3 % (22.0-35.0) 09/21/18 07:35 Morgan % (Auto) 11.2 % (1.0-6.0) H 09/21/18 07:35 Eos % (Auto) 5.7 % (1.5-5.0) H 09/21/18 07:35 Baso % (Auto) 0.5 % (0.0-3.0) 09/21/18 07:35 Gran # 2.59 (1.4-6.5) 09/21/18 07:35 Lymph # (Auto) 1.0 (1.2-3.4) L 09/21/18 07:35 Morgan # (Auto) 0.5 (0.1-0.6) 09/21/18 07:35 Eos # (Auto) 0.3 (0.0-0.7) 09/21/18 07:35 Baso # (Auto) 0.02 K/mm3 (0.0-2.0) 09/21/18 07:35 Sodium 135 mmol/L (132-148) 09/21/18 07:35 Potassium 4.8 mmol/L (3.6-5.0) 09/21/18 07:35 Chloride 99 mmol/L (98-107) 09/21/18 07:35 Carbon Dioxide 31 mmol/L (21-33) 09/21/18 07:35 Anion Gap 9 (10-20) L 09/21/18 07:35 BUN 20 mg/dL (7-21) 09/21/18 07:35 Creatinine 0.7 mg/dl (0.7-1.2) 09/21/18 07:35 Est GFR ( Amer) > 60 09/21/18 07:35 Est GFR (Non-Af Amer) > 60 09/21/18 07:35 POC Glucose (mg/dL) 139 mg/dL (65-110) H 09/11/18 15:56 Random Glucose 98 mg/dL (70-110) 09/21/18 07:35 Calcium 9.2 mg/dL (8.4-10.5) 09/21/18 07:35 Phosphorus 3.8 mg/dL (2.5-4.5) 09/21/18 07:35 Magnesium 1.8 mg/dL (1.7-2.2) 09/21/18 07:35 Total Bilirubin 0.5 mg/dL (0.2-1.3) 09/21/18 07:35 AST 24 U/L (14-36) 09/21/18 07:35 ALT 33 U/L (7-56) 09/21/18 07:35 Alkaline Phosphatase 79 U/L (38-126) 09/21/18 07:35 Lactate Dehydrogenase 191 U/L (333-699) L 09/12/18 06:15 Total Creatine Kinase < 20 U/L (35-230) L 09/12/18 06:15 Troponin I < 0.01 ng/mL 09/12/18 06:15 NT-Pro-B Natriuret Pep 162 pg/mL (0-450) 09/10/18 11:00 Total Protein 6.0 g/dL (5.8-8.3) 09/21/18 07:35 Albumin 3.4 g/dL (3.0-4.8) 09/21/18 07:35 Globulin 2.6 gm/dL 09/21/18 07:35 Albumin/Globulin Ratio 1.3 (1.1-1.8) 09/21/18 07:35 Lipase 36 U/L (23-300) 09/10/18 07:03 25-OH Vitamin D Total 23.5 NG/ML (30.0-100.0) L 09/13/18 13:00 Procalcitonin 0.05 NG/ML (0.19-0.49) L 09/10/18 11:00 TSH 3rd Generation 2.53 mIU/mL (0.46-4.68) 09/10/18 11:00 Urine Color Yellow (YELLOW) 09/10/18 08:00 Urine Appearance Clear (CLEAR) 09/10/18 08:00 Urine pH 6.5 (4.7-8.0) 09/10/18 08:00 Ur Specific [place] 1.015 (1.005-1.035) 09/10/18 08:00 Urine Protein Negative mg/dL (<30 mg/dL) 09/10/18 08:00 Urine Glucose (UA) Negative mg/dL (NEGATIVE) 09/10/18 08:00 Urine Ketones Negative mg/dL (NEGATIVE) 09/10/18 08:00 Urine Blood Negative (NEGATIVE) 09/10/18 08:00 Urine Nitrate Negative (NEGATIVE) 09/10/18 08:00 Urine Bilirubin Negative (NEGATIVE) 09/10/18 08:00 Urine Urobilinogen 1.0 E.U./dL (<1 E.U./dL) H 09/10/18 08:00 Ur Leukocyte Esterase Negative Livan/uL (NEGATIVE) 09/10/18 08:00 Influenza Typ A,B (EIA) Negative for flu a/b (NEGATIVE) 09/10/18 12:00 - Hospital Course Hospital Course: On admission: Patient is an 83 year old female with past medical history of CHF, T2DM, HLD, COPD on home O2, pulmonary HTN, urinary incontinence presenting with back pain that began about two weeks prior. Pain is described as sharp and constant, localized to her mid back with a severity +10/10. Patient states that she has been unable to lie supine due to the pain. She denies trauma or any heavy lifting. Patient also admits to lower abdominal pain. She typically takes Miralax and colace for opioid induced constipation, however she has not had a bowel movement in the past few days. Patient also has a nonproductive cough. She was given Levaquin 12 days ago with no symptomatic relief. Denies fevers, chills, chest pain, shortness of breath, nausea, vomiting, dysuria. During hospital stay: Patient had CT abdomen pelvis which showed new compression deformity L1 vertebral body, evidence of prior kyphoplasty L1, compression deformities L2 and L5, profound osteopenia. Lumbar spine MRI showed multiple acute compression fractures, spinal stenosis. Neurosurgery recommended kyphoplasty, however patient refused kyphoplasty evaluation. Pain management was consulted. PT/OT recommended subacute rehab however patient refused subacute rehab. Patient received epidural injection by pain management Dr. Hurtado with no complications. Patient also had abdominal pain on admission. CT showed constipation without fecal impaction or obstruction. Patient was treated with colace, miralax which resolved her constipation. Surgery was consulted for hernia however patient refused surgical intervention. Patient also complained of cough on admission. CXR showed no active disease. Urine cultures and blood cultures x2 were negative. Procal was low, flu was negative. Pulmonology was consulted. Patient was continued on duonebs, brovana, pulmicort. Patient was optimized for discharge and instructed to follow up with Dr. Hurtado pain management and PMD Dr. Valentine. Please see EMR for full summary. - Date & Time of H&P Date of H&P: 09/10/18 Time of H&P: 12:06 Discharge Exam - Additional Findings Additional findings: - Constitutional Appears: No Acute Distress, Cachectic - Head Exam Head Exam: ATRAUMATIC, NORMOCEPHALIC - Eye Exam Eye Exam: EOMI, Normal appearance - Respiratory Exam Respiratory Exam: Clear to Auscultation Bilateral, NORMAL BREATHING PATTERN. absent: Accessory Muscle Use - Cardiovascular Exam Cardiovascular Exam: regular rate, +S1, +S2 - GI/Abdominal Exam GI & Abdominal Exam: Soft, Normal Bowel Sounds. absent: Guarding, Rebound - Extremities Exam Extremities Exam: Normal Inspection. absent: Calf Tenderness - Back Exam Back Exam: vertebral tenderness along central lumbar spine (improved). absent: CVA tenderness (L), CVA tenderness (R), motor/sensory deficits in B/L upper/lower extremities. - Neurological Exam Neurological Exam: Alert, Awake, Oriented x3 - Psychiatric Exam Psychiatric exam: Normal Affect, Normal Mood - Skin Skin Exam: Dry, Intact, Normal Color, Warm Discharge Plan - Discharge Medications Prescriptions: Ergocalciferol (Vitamin D2) [Vitamin D2] 400 unit PO DAILY 30 Days tablet RX: Lactobacillus Acidophilus [Bacid Acidophilus] 1 cap PO BID 14 Days cap Oxycodone HCl/Acetaminophen [Oxycodone-Acetaminophen 5-325] 1 each PO Q6H PRN #20 tablet PRN Reason: Pain, Severe (8-10) RX: Sulfamethoxazole/Trimethoprim [Bactrim SS Tab] 1 tab PO Q6 3 Days tab - Follow Up Plan Condition: STABLE Disposition: HOME/ ROUTINE Patient education suggested?: Yes Instructions: Low Back Pain (DC), Vertebral Compression Fracture (DC) Additional Instructions: Please follow up with your primary medical doctor Dr. Valentine within one week. Also follow up with Dr. Hurtado your pain management doctor within one to two w eeks. Please take your home medications as prescribed. Return to ED if symptoms return or worsen. Referrals: Ben Hurtado MD [Staff Provider] - <OchoaDoe - Last Filed: 09/23/18 17:35> Provider - Provider Date of Admission: 09/10/18 10:48 Attending physician: Meme Keating MD Consults: 09/10/18 11:42 Pulmonology Consult Routine Comment: Consulting Provider: Evgeny Briggs Consulting Physician: Evgeny Briggs Reason for Consult: h/o COPD, Cough/family request 09/10/18 11:57 General Surgery Consult Routine Comment: Consulting Provider: Lauro Ferrer Consulting Physician: Lauro Ferrer Reason for Consult: ventral hernia 09/11/18 13:45 Physician Consult Routine Comment: Consulting Provider: Felix Muniz Consulting Physician: Felix Muniz Reason for Consult: L1 compression deformity 09/13/18 13:06 Physician Consult Routine Comment: Consulting Provider: Harrison Blackburn Consulting Physician: Harrison Blackburn Reason for Consult: kyphoplasty 09/13/18 13:09 Physician Consult Routine Comment: Consulting Provider: Ben Hurtado Consulting Physician: Ben Hurtado Reason for Consult: consider epidural injection, severe pain 09/13/18 15:10 Physician Consult Routine Comment: consider epidurl injection, severe pain Consulting Provider: Ebony Khan Consulting Physician: Ebony Khan Reason for Consult: consider epidurl injection, severe pain 09/15/18 17:43 Physician Consult Routine Comment: Consulting Provider: Reilly Warren Consulting Physician: Reilly Warren Reason for Consult: multiple acute compression fractures Hospital Course - Lab Results Lab Results: Micro Results 09/10/18 08:00 Blood-Venous Blood Culture - Final NO GROWTH AFTER 5 DAYS 09/10/18 08:00 Blood-Venous Gram Stain - Final TEST NOT PERFORMED 09/10/18 07:45 Blood-Venous Blood Culture - Final NO GROWTH AFTER 5 DAYS 09/10/18 07:45 Blood-Venous Gram Stain - Final TEST NOT PERFORMED 09/10/18 08:00 Urine,Catheterized Urine Culture - Final No Growth (<1,000 CFU/ML) Most Recent Lab Values WBC 4.4 10^3/uL (4.5-11.0) L 09/21/18 07:35 RBC 3.23 10^6/uL (3.5-6.1) L 09/21/18 07:35 Hgb 10.1 g/dL (12.0-16.0) L 09/21/18 07:35 Hct 31.1 % (36.0-48.0) L 09/21/18 07:35 MCV 96.3 fl (80.0-105.0) 09/21/18 07:35 MCH 31.3 pg (25.0-35.0) 09/21/18 07:35 MCHC 32.5 g/dl (31.0-37.0) 09/21/18 07:35 RDW 12.5 % (11.5-14.5) 09/21/18 07:35 Plt Count 146 10^3/uL (120.0-450.0) 09/21/18 07:35 MPV 11.1 fl (7.0-11.0) H 09/21/18 07:35 Gran % 59.3 % (50.0-68.0) 09/21/18 07:35 Lymph % (Auto) 23.3 % (22.0-35.0) 09/21/18 07:35 Morgan % (Auto) 11.2 % (1.0-6.0) H 09/21/18 07:35 Eos % (Auto) 5.7 % (1.5-5.0) H 09/21/18 07:35 Baso % (Auto) 0.5 % (0.0-3.0) 09/21/18 07:35 Gran # 2.59 (1.4-6.5) 09/21/18 07:35 Lymph # (Auto) 1.0 (1.2-3.4) L 09/21/18 07:35 Morgan # (Auto) 0.5 (0.1-0.6) 09/21/18 07:35 Eos # (Auto) 0.3 (0.0-0.7) 09/21/18 07:35 Baso # (Auto) 0.02 K/mm3 (0.0-2.0) 09/21/18 07:35 Sodium 135 mmol/L (132-148) 09/21/18 07:35 Potassium 4.8 mmol/L (3.6-5.0) 09/21/18 07:35 Chloride 99 mmol/L (98-107) 09/21/18 07:35 Carbon Dioxide 31 mmol/L (21-33) 09/21/18 07:35 Anion Gap 9 (10-20) L 09/21/18 07:35 BUN 20 mg/dL (7-21) 09/21/18 07:35 Creatinine 0.7 mg/dl (0.7-1.2) 09/21/18 07:35 Est GFR ( Amer) > 60 09/21/18 07:35 Est GFR (Non-Af Amer) > 60 09/21/18 07:35 POC Glucose (mg/dL) 139 mg/dL (65-110) H 09/11/18 15:56 Random Glucose 98 mg/dL (70-110) 09/21/18 07:35 Calcium 9.2 mg/dL (8.4-10.5) 09/21/18 07:35 Phosphorus 3.8 mg/dL (2.5-4.5) 09/21/18 07:35 Magnesium 1.8 mg/dL (1.7-2.2) 09/21/18 07:35 Total Bilirubin 0.5 mg/dL (0.2-1.3) 09/21/18 07:35 AST 24 U/L (14-36) 09/21/18 07:35 ALT 33 U/L (7-56) 09/21/18 07:35 Alkaline Phosphatase 79 U/L (38-126) 09/21/18 07:35 Lactate Dehydrogenase 191 U/L (333-699) L 09/12/18 06:15 Total Creatine Kinase < 20 U/L (35-230) L 09/12/18 06:15 Troponin I < 0.01 ng/mL 09/12/18 06:15 NT-Pro-B Natriuret Pep 162 pg/mL (0-450) 09/10/18 11:00 Total Protein 6.0 g/dL (5.8-8.3) 09/21/18 07:35 Albumin 3.4 g/dL (3.0-4.8) 09/21/18 07:35 Globulin 2.6 gm/dL 09/21/18 07:35 Albumin/Globulin Ratio 1.3 (1.1-1.8) 09/21/18 07:35 Lipase 36 U/L (23-300) 09/10/18 07:03 25-OH Vitamin D Total 23.5 NG/ML (30.0-100.0) L 09/13/18 13:00 Procalcitonin 0.05 NG/ML (0.19-0.49) L 09/10/18 11:00 TSH 3rd Generation 2.53 mIU/mL (0.46-4.68) 09/10/18 11:00 Urine Color Yellow (YELLOW) 09/10/18 08:00 Urine Appearance Clear (CLEAR) 09/10/18 08:00 Urine pH 6.5 (4.7-8.0) 09/10/18 08:00 Ur Specific [place] 1.015 (1.005-1.035) 09/10/18 08:00 Urine Protein Negative mg/dL (<30 mg/dL) 09/10/18 08:00 Urine Glucose (UA) Negative mg/dL (NEGATIVE) 09/10/18 08:00 Urine Ketones Negative mg/dL (NEGATIVE) 09/10/18 08:00 Urine Blood Negative (NEGATIVE) 09/10/18 08:00 Urine Nitrate Negative (NEGATIVE) 09/10/18 08:00 Urine Bilirubin Negative (NEGATIVE) 09/10/18 08:00 Urine Urobilinogen 1.0 E.U./dL (<1 E.U./dL) H 09/10/18 08:00 Ur Leukocyte Esterase Negative Livan/uL (NEGATIVE) 09/10/18 08:00 Influenza Typ A,B (EIA) Negative for flu a/b (NEGATIVE) 09/10/18 12:00 Attending/Attestation - Attestation I have personally seen and examined this patient.: Yes I have fully participated in the care of the patient.: Yes I have reviewed all pertinent clinical information, including history, physical exam and plan: Yes
--- NOTE | 2018-09-25 09:35 | OP ---
PROCEDURE DATE: 09/22/2018 TYPE OF SURGERY: 1. Right L4-L5 transforaminal epidural steroid injection (right L4 selective nerve root block). 2. Right L5-S1 transforaminal epidural steroid injection (right L5 selective nerve root block). 3. Left L4-L5 transforaminal epidural steroid injection (left L4 selective nerve root block). 4. Left L5-S1 transforaminal epidural steroid injection (left L5 selective nerve root block). 5. Fluoroscopic guidance. PREOPERATIVE DIAGNOSES: 1. Low back pain. 2. Lumbar radiculopathy. POSTOPERATIVE DIAGNOSES: 1. Low back pain. 2. Lumbar radiculopathy. SURGEON: Ben Hurtado MD TYPE OF ANESTHESIA: Local anesthesia with monitoring. No conscious sedation. ANESTHESIA ADMINISTERED BY: Not applicable. ESTIMATED BLOOD LOSS: None. METHOD OF SURGERY: The patient signed an informed consent form in the pre-op area after all risks and complications were explained and all questions were answered. Blood pressure, heart rate, pulse oximetry, and EKG cardiac monitoring were monitored throughout the procedure. The patient was prepped and draped in a sterile fashion in the prone position. The patients spine was surveyed under fluoroscopic visualization and appropriate anatomical landmarks were identified. Right L4 Transforaminal Epidural Steroid Injection The region overlying the right L4 transverse process of the right L4 nerve root to be blocked was localized under fluoroscopic visualization. The soft tissues overlying this structure were copiously infiltrated with 1% Lidocaine without epinephrine. A 25G 1.5inch skin needle was used for superficial tissues. Sodium bicarbonate was used for skin anesthesia to reduce the burning effect of the local anesthetic. A 25gauge 3.5inch spinal needle was inserted down into the posterior aspect of the base of the transverse process; and then, it was walked off the inferior aspect of this transverse process and advanced approximately 1cm further anteriorly. A 1cc volume of Omnipaque was injected to confirm the needle location (see the spot film interpretation below). Then, the injection was performed using 1.0cc of Dexamethasone(4mg/ml) with 1ccs of 0.25% marcaine without epinephrine and 1cc of preservative free normal saline. Perisheathogram and Spot Film: After Omnipaque was injected, a normal right L4 perisheathogram occurred without evidence of subarachnoid or vascular flow. A spot film was ordered and obtained and confirmed the correct needle tip placement and the normal right L4 perisheathogram. Right L5 Transforaminal Epidural Steroid Injection The region overlying the right L5 transverse process of the right L5 nerve root to be blocked was localized under fluoroscopic visualization. The soft tissues overlying this structure were copiously infiltrated with 1% Lidocaine without epinephrine. A 25G 1.5inch skin needle was used for superficial tissues. Sodium bicarbonate was used for skin anesthesia to reduce the burning effect of the local anesthetic. A 25gauge 3.5inch spinal needle was inserted down into the posterior aspect of the base of the transverse process; and then, it was walked off the inferior aspect of this transverse process and advanced approximately 1cm further anteriorly. A 1cc volume of Omnipaque was injected to confirm the needle location (see the spot film interpretation below). Then, the injection was performed using 1.0cc of Dexamethasone(4mg/ml) with 1ccs of 0.25% marcaine without epinephrine and 1cc of preservative free normal saline. Perisheathogram and Spot Film: After Omnipaque was injected, a normal right L5 perisheathogram occurred without evidence of subarachnoid or vascular flow. A spot film was ordered and obtained and confirmed the correct needle tip placement and the normal right L5 perisheathogram. Left L4 Transforaminal Epidural Steroid Injection The region overlying the left L4 transverse process of the left L4 nerve root to be blocked was localized under fluoroscopic visualization. The soft tissues overlying this structure were copiously infiltrated with 1% Lidocaine without epinephrine. A 25G 1.5inch skin needle was used for superficial tissues. Sodium bicarbonate was used for skin anesthesia to reduce the burning effect of the local anesthetic. A 25gauge 3.5inch spinal needle was inserted down into the posterior aspect of the base of the transverse process; and then, it was walked off the inferior aspect of this transverse process and advanced approximately 1cm further anteriorly. A 0.5 cc volume of Omnipaque was injected to confirm the needle location (see the spot film interpretation below). Then, the injection was performed using 1.0cc of Dexamethasone(4mg/ml) with 1ccs of 0.25% marcaine without epinephrine and 1cc of preservative free normal saline. Perisheathogram and Spot Film: After Omnipaque was injected, a normal left L4 perisheathogram occurred without evidence of subarachnoid or vascular flow. A spot film was ordered and obtained and confirmed the correct needle tip placement and the normal left L4 perisheathogram. Left L5 Transforaminal Epidural Steroid Injection The region overlying the left L5 transverse process of the left L5 nerve root to be blocked was localized under fluoroscopic visualization. The soft tissues overlying this structure were copiously infiltrated with 1% Lidocaine without epinephrine. A 25G 1.5inch skin needle was used for superficial tissues. Sodium bicarbonate was used for skin anesthesia to reduce the burning effect of the local anesthetic. A 25gauge 3.5inch spinal needle was inserted down into the posterior aspect of the base of the transverse process; and then, it was walked off the inferior aspect of this transverse process and advanced approximately 1cm further anteriorly. A 1 cc volume of Omnipaque was injected to confirm the needle location (see the spot film interpretation below). Then, the injection was performed using 1.0cc of Dexamethasone(4mg/ml) with 1ccs of 0.25% marcaine without epinephrine and 1cc of preservative free normal saline. Perisheathogram and Spot Film: After Omnipaque was injected, a normal left L5 perisheathogram occurred without evidence of subarachnoid or vascular flow. A spot film was ordered and obtained and confirmed the correct needle tip placement and the normal left L5 perisheathogram. The patient tolerated the procedures well and was in good condition at the conclusion of the procedures. Complications: None Disposition 1. The patient was discharged to the recovery room in good condition 2. Discharge instructions provided and explained. 3. Call with any questions or problems 4. Apply ice to the injection sites and keep clean and dry for 24 hours 5. Medications were reviewed for efficacy. 6. Return in 2 weeks for follow up. Ben Hurtado MD [id number]
== END 2018-09-23 19:08 | disposition home health service (06) | DRG 239 ==
LOC: ED 06:27 → ERH 10:48 → 5RNO 12:34
PROVIDERS: ADMIT Hospitalist; ATTEND Internal Medicine
PROC: 3E0F7GC Introduction of Other Therapeutic Substance into Respiratory Tract, Via Natural or Artificial Opening (ICD-10-PCS; 2018-09-11)
PROC: 3E0R33Z Introduction of Anti-inflammatory into Spinal Canal, Percutaneous Approach (ICD-10-PCS; 2018-09-22)
PROC: 3E0R33Z Introduction of Anti-inflammatory into Spinal Canal, Percutaneous Approach (ICD-10-PCS; 2018-09-22)
PROC: 3E0R3BZ Introduction of Anesthetic Agent into Spinal Canal, Percutaneous Approach (ICD-10-PCS; 2018-09-22)
PROC: 3E0R33Z Introduction of Anti-inflammatory into Spinal Canal, Percutaneous Approach (ICD-10-PCS; 2018-09-22)
PROC: 3E0R3BZ Introduction of Anesthetic Agent into Spinal Canal, Percutaneous Approach (ICD-10-PCS; 2018-09-22)
PROC: 3E0R33Z Introduction of Anti-inflammatory into Spinal Canal, Percutaneous Approach (ICD-10-PCS; 2018-09-22)
PROC: 3E0R3BZ Introduction of Anesthetic Agent into Spinal Canal, Percutaneous Approach (ICD-10-PCS; 2018-09-22)
PROC: 3E0R3BZ Introduction of Anesthetic Agent into Spinal Canal, Percutaneous Approach (ICD-10-PCS; principal; 2018-09-22 08:00)
DX: M48.56XA Collapsed vertebra, not elsewhere classified, lumbar region, initial encounter for fracture (principal); I11.0 Hypertensive heart disease with heart failure; J44.1 Chronic obstructive pulmonary disease with (acute) exacerbation; J44.0 Chronic obstructive pulmonary disease with (acute) lower respiratory infection; I36.1 Nonrheumatic tricuspid (valve) insufficiency; I50.9 Heart failure, unspecified; M54.16 Radiculopathy, lumbar region; M48.061 Spinal stenosis, lumbar region without neurogenic claudication; I27.20 Pulmonary hypertension, unspecified; I25.10 Atherosclerotic heart disease of native coronary artery without angina pectoris; J20.9 Acute bronchitis, unspecified; Z99.81 Dependence on supplemental oxygen; E78.5 Hyperlipidemia, unspecified; E11.9 Type 2 diabetes mellitus without complications; G89.29 Other chronic pain; K59.09 Other constipation; M81.0 Age-related osteoporosis without current pathological fracture; K21.9 Gastro-esophageal reflux disease without esophagitis; K43.2 Incisional hernia without obstruction or gangrene; D63.8 Anemia in other chronic diseases classified elsewhere; F40.240 Claustrophobia; Z95.5 Presence of coronary angioplasty implant and graft; Z87.891 Personal history of nicotine dependence

== ENCOUNTER 2018-10-16 15:22 | Outpatient (CLI) | payer MEDICARE, MEDICAID | END 2018-10-16 15:23 | disposition home or self-care (01) | LOC: RAD 15:22 | DX: Z13.820 Encounter for screening for osteoporosis (principal) ==

== ENCOUNTER 2018-10-23 16:20 | Inpatient (IN) | payer MEDICARE, MEDICAID ==
[2018-10-23] MEDS ORDERED: Oxycodone/Acetaminophen 5/325 mg Tab PO STA (17:14)
[2018-10-23 17:54] LABS: BASO # 0.01 K/mm3 (0.0-2.0); BASO % 0.2 % (0.0-3.0); EOS # 0.1 (0.0-0.7); EOS % 1.9 % (1.5-5.0); HEMOGLOBIN 11.3 g/dL (12.0-16.0); LYMPH % 19.3 % (22.0-35.0); MEAN CELL VOLUME 96.7 fl (80.0-105.0); MEAN CORPUSCULAR HGB CONC 32.1 g/dl (31.0-37.0); MEAN PLATELET VOLUME 11.4 fl (7.0-11.0); MONO # 0.4 (0.1-0.6); MONO % 8.3 % (1.0-6.0); RBC 3.64 10^6/uL (3.5-6.1); RED CELL DISTRIBUTION WIDTH 13.3 % (11.5-14.5); WHITE BLOOD COUNT 5.2 10^3/uL (4.5-11.0)
--- NOTE | 2018-10-23 17:59 | ED PDOC ---
Arrival/HPI - General Chief Complaint: Back Pain Time Seen by Provider: 10/23/18 16:49 Historian: Patient, Family - History of Present Illness Narrative History of Present Illness (Text): 10/23/18 17:56 83-year-old female with history of multiple compression fractures in the lumbar spine presents today with continued and worsening low back pain. Patient states she is now experiencing some right-sided abdominal pain. She denies dysuria or urinary frequency. Patient denies numbness weakness or tingling in the extremity. Patient states she has been more constipated. Patient states last bowel movement was today. Patient denies chest pain or shortness of breath. No fevers or chills. Patient states while in the hospital she had injection into the back which did not help with the pain. Patient denies any recent trauma or injury. No fevers or chills. No other complaints Time/Duration: Other (5 days) Past Medical History - Provider Review Nursing Documentation Reviewed: Yes - Travel History Have you recently traveled outside [place] w/in the past 3 mons?: No - Past History Past History: No Previous - Infectious Disease Hx of Infectious Diseases: None - Tetanus Immunization Tetanus Immunization: Unknown - Cardiac Hx Cardiac Disorders: Yes Hx Hypertension: Yes - Pulmonary Hx Respiratory Disorders: Yes Hx Chronic Obstructive Pulmonary Disease (COPD): Yes - Neurological Hx Neurological Disorder: Yes Hx Dizziness: Yes - HEENT Hx HEENT Disorder: Yes Hx Cataracts: Yes - Renal Hx Renal Disorder: Yes - Endocrine/Metabolic Hx Endocrine Disorders: Yes Hx Diabetes Mellitus Type 2: Yes - Hematological/Oncological Hx Blood Disorders: Yes Hx Blood Transfusions: Yes - Integumentary Hx Dermatological Disorder: Yes - Musculoskeletal/Rheumatological Hx Musculoskeletal Disorders: Yes Hx Falls: Yes Hx Fractures: Yes (R WRIST) - Gastrointestinal Hx Gastrointestinal Disorders: Yes Hx Diverticulitis: Yes Hx Gall Bladder Disease: Yes (CHLOECYSTECTOMY) Hx Gastroesophageal Reflux: Yes Other/Comment: celiac disease, umbilical hernia - Genitourinary/Gynecological Hx Genitourinary Disorders: Yes Hx Urinary Tract Infection: Yes - Psychiatric Hx Psychophysiologic Disorder: Yes Hx Anxiety: Yes Hx Panic Disorder: Yes Hx Substance Use: No - Surgical History Hx Appendectomy: Yes Hx Cardiac Catheterization: Yes Hx Cholecystectomy: Yes Hx Coronary Stent: Yes - Anesthesia Hx Anesthesia Reactions: No Hx Malignant Hyperthermia: No - Suicidal Assessment Feels Threatened In Home Enviroment: No Family/Social History - Physician Review Nursing Documentation Reviewed: Yes Family/Social History: Unknown Family HX Smoking Status: Former Smoker Hx Alcohol Use: No Hx Substance Use: No Hx Substance Use Treatment: No Allergies/Home Meds Allergies/Adverse Reactions: Allergies morphine Allergy (Verified 04/20/18 12:01) VOMITING codeine Adverse Reaction (Verified 04/20/18 12:01) VOMITING hydromorphone HCl [From Dilaudid] Adverse Reaction (Verified 04/20/18 12:01) VOMITING MYOCINS Adverse Reaction (Uncoded 04/20/18 12:01) VOMITING Home Medications: Home Meds Medication Instructions Recorded Confirmed Atorvastatin Calcium 10 mg PO HS 12/12/17 09/10/18 predniSONE [predniSONE Tab] 2.5 mg PO DAILY 02/25/18 09/10/18 Ferrous Sulfate [Feosol] 325 mg PO DAILY 04/17/18 09/10/18 Ondansetron ODT [Zofran ODT] 4 mg PO PRN PRN 04/17/18 09/10/18 ALPRAZolam [Xanax] 0.5 mg PO PRN PRN 08/30/18 09/10/18 Aspirin [Aspirin Chewable] 81 mg PO DAILY 08/30/18 09/10/18 Dexlansoprazole [Dexilant] 60 mg PO DAILY 08/30/18 09/10/18 Sildenafil [Revatio] 20 mg PO BID 08/30/18 09/10/18 Tramadol HCl/Acetaminophen 1 tab PO Q8 PRN 08/30/18 09/10/18 [Tramadol-Acetaminophn 37.5-325] Arformoterol [Brovana] 1 vial INH BID 09/10/18 09/10/18 Docusate Sodium [Trevino' 100 mg PO Q8 09/10/18 09/10/18 Laxative] Meclizine [Antivert] 1 tab PO BID 09/10/18 09/10/18 Review of Systems - Review of Systems Constitutional: absent: Fatigue, Fevers Respiratory: absent: SOB, Cough Cardiovascular: absent: Chest Pain, Palpitations Gastrointestinal: Abdominal Pain. absent: Constipation, Diarrhea, Nausea, Vomiting Genitourinary Female: absent: Dysuria, Frequency Musculoskeletal: Back Pain. absent: Arthralgias, Neck Pain Skin: absent: Rash, Pruritis Neurological: absent: Headache, Dizziness Psychiatric: absent: Anxiety, Depression Physical Exam Vital Signs Reviewed: Yes Vital Signs Temp Pulse Resp BP Pulse Ox 10/23/18 16:33 97.8 F 100 H 18 110/60 98 Temperature: Afebrile Blood Pressure: Normal Pulse: Tachycardic Respiratory Rate: Normal Appearance: Positive for: Well-Appearing, Non-Toxic, Comfortable Pain Distress: None Mental Status: Positive for: Alert and Oriented X 3 - Systems Exam Head: Present: Atraumatic Neck: Present: Normal Range of Motion Respiratory/Chest: Present: Clear to Auscultation, Good Air Exchange. No: Respiratory Distress, Accessory Muscle Use Cardiovascular: Present: Regular Rate and Rhythm, Normal S1, S2. No: Murmurs Abdomen: Present: Tenderness (minimal rlq tenderness). No: Distention, Peritoneal Signs Back: Present: Normal Inspection, Midline Tenderness (+ midline tenderness low lumbar tenderness), Pain with Leg Raise, Other (no erythema. ) Upper Extremity: Present: Normal Inspection, Normal ROM Lower Extremity: Present: Normal Inspection, Normal ROM Neurological: Present: GCS=15, Speech Normal Skin: Present: Warm, Dry, Normal Color. No: Rashes Psychiatric: Present: Alert, Oriented x 3 Medical Decision Making ED Course and Treatment: 10/23/18 18:02 83yr old female with chronic low back pain that is worsening, now with abdominal pain. pt given percocet for pain. cbc; wnl cmp wnl ekg: Normal sinus rhythm at 79 bpm normal axis no ST elevations cxr: no infiltrate. abd/pelvis: FINDINGS: LOWER THORAX: There is large hiatus hernia again noted. There is a questionable trace pleural effusion versus pleural thickening noted at the right chest base. LIVER: Unremarkable. No gross lesion or ductal dilatation. GALLBLADDER AND BILE DUCTS: Status post cholecystectomy. PANCREAS: Unremarkable. No gross lesion or ductal dilatation. SPLEEN: Unremarkable. ADRENALS: Unremarkable. No mass. KIDNEYS AND URETERS: Unremarkable. No hydronephrosis. No solid mass. VASCULATURE: Unremarkable. No aortic aneurysm. Diffuse aortic atherosclerotic calcification and mural plaque present. BOWEL: Interval appearance of midline ventral hernia contains part of the transverse colon without definite evidence of bowel obstruction or incarceration. Mildly dilated small bowel loops seen. Patient is status post bowel anastomosis at the left mid abdomen. Colonic diverticulosis are again noted without evidence of diverticulitis. APPENDIX: No evidence of appendicitis. PERITONEUM: Unremarkable. No free fluid. No free air. LYMPH NODES: Unremarkable. No enlarged lymph nodes. BLADDER: Unremarkable. REPRODUCTIVE: Unremarkable. BONES: There are multilevel compression deformity noted at lumbar spine more prominent at L4 L1 and T12. OTHER FINDINGS: There is also right paraumbilical small ventral hernia contains short segment of small bowel loops out evidence of bowel obstruction or incarceration. IMPRESSION: Large paraumbilical ventral hernia to the left of the umbilicus contains short segment of the large bowel loop without definite evidence of bowel obstruction or incarceration. Small right paraumbilical ventral hernia contains short segment of small bowel loop without evidence of bowel obstruction. Additional findings as discussed above. Colonic diverticulosis without evidence of diverticulitis. [id number] constipation UA: + tntc wbs pt reassessment; pt with continued pain; additional percocet added. pt started on rocephin for UTI case discussed with dr. walden. will admit observational status for intractable back pain/UTI. impression; intractable back pain, UTI, compression fractures back admit. observational status. Reassessment Condition: Re-examined, Unchanged - RAD Interpretation Radiology Orders: 10/23/18 16:52 CHEST PORTABLE [RAD] Stat 10/23/18 17:12 ABD & PELVIS W/O PO OR IV CONT [CT] Stat - Medication Orders Current Medication Orders: Discontinued Medications Oxycodone/Acetaminophen (Percocet 5/325 Mg Tab) 1 tab PO STAT STA Stop: 10/23/18 17:15 Last Admin: 10/23/18 17:47 Dose: 1 tab [facility] Pain Assessment Document 10/23/18 17:47 OCS (Rec: 10/23/18 17:48 OCS [id number]) Pain Reassessment Is this a pain reassessment? No Sleep Is patient sleeping during reassessment? No Presence of Pain Presence of Pain Yes Pain Scale Used Protocol: PSCALES Pain Scale Used Numeric Location Pain Location Body Site Back Description Description Constant Intensity of Pain at present 10 Pain Behavior Irritability Facial Grimacing Aggravating Factors ADL's Disposition/Present on Arrival - Present on Arrival Any Indicators Present on Arrival: No History of DVT/PE: No History of Uncontrolled Diabetes: No Urinary Catheter: No History of Decub. Ulcer: No History Surgical Site Infection Following: None - Disposition Have Diagnosis and Disposition been Completed?: Yes Diagnosis: Back pain, Abdominal pain, UTI (urinary tract infection) Disposition: HOSPITALIZED Disposition Time: 18:03 Patient Plan: Observation Patient Problems: Current Active Problems Problem Status Onset Abdominal pain Acute Back pain Acute UTI (urinary tract infection) Acute Condition: FAIR
[2018-10-23 18:02] LABS: ALB/GLOB RATIO 1.4 (1.1-1.8); ALBUMIN 3.6 g/dL (3.0-4.8); ALT/SGPT 11 U/L (7-56); AST/SGOT 19 U/L (14-36); BLOOD UREA NITROGEN 23 mg/dL (7-21); CALCIUM 9.4 mg/dL (8.4-10.5); GFR NON-AFRICAN AMERICAN > 60
[2018-10-23 18:14] LABS: TROPONIN I < 0.01 ng/mL
[2018-10-23 18:27] LABS: URINE APPEARANCE TURBID (CLEAR); URINE BILIRUBIN NEGATIVE (NEGATIVE); URINE BLOOD TRACE-INTACT (NEGATIVE); URINE COLOR YELLOW (YELLOW); URINE GLUCOSE (UA) NEGATIVE (NEGATIVE); URINE LEUKOCYTE ESTERASE MODERATE Leu/uL (NEGATIVE); URINE PROTEIN NEGATIVE mg/dL (<30 mg/dL)
[2018-10-23 18:29] LABS: URINE BACTERIA MANY /hpf; URINE RBC 0 - 2 /hpf (0-2); URINE WBC TNTC /hpf (0-6)
--- NOTE | 2018-10-23 18:54 | CT ---
Date of service: 10/23/2018 PROCEDURE: CT Abdomen and Pelvis without intravenous contrast HISTORY: ABDOMINAL PAIN COMPARISON: Comparison is made with the previous study dated 09/10/2018 TECHNIQUE: Axial and reformatted coronal and sagittal CT images of the abdomen and pelvis were obtained without IV or oral contrast administration.. Contrast dose: 0 Radiation dose: Total exam DLP = 478.93 mGy-cm. This CT exam was performed using one or more of the following dose reduction techniques: Automated exposure control, adjustment of the mA and/or kV according to patient size, and/or use of iterative reconstruction technique. FINDINGS: LOWER THORAX: There is large hiatus hernia again noted. There is a questionable trace pleural effusion versus pleural thickening noted at the right chest base. LIVER: Unremarkable. No gross lesion or ductal dilatation. GALLBLADDER AND BILE DUCTS: Status post cholecystectomy. PANCREAS: Unremarkable. No gross lesion or ductal dilatation. SPLEEN: Unremarkable. ADRENALS: Unremarkable. No mass. KIDNEYS AND URETERS: Unremarkable. No hydronephrosis. No solid mass. VASCULATURE: Unremarkable. No aortic aneurysm. Diffuse aortic atherosclerotic calcification and mural plaque present. BOWEL: Interval appearance of midline ventral hernia contains part of the transverse colon without definite evidence of bowel obstruction or incarceration. Mildly dilated small bowel loops seen. Patient is status post bowel anastomosis at the left mid abdomen. Colonic diverticulosis are again noted without evidence of diverticulitis. APPENDIX: No evidence of appendicitis. PERITONEUM: Unremarkable. No free fluid. No free air. LYMPH NODES: Unremarkable. No enlarged lymph nodes. BLADDER: Unremarkable. REPRODUCTIVE: Unremarkable. BONES: There are multilevel compression deformity noted at lumbar spine more prominent at L4 L1 and T12. OTHER FINDINGS: There is also right paraumbilical small ventral hernia contains short segment of small bowel loops out evidence of bowel obstruction or incarceration. IMPRESSION: Large paraumbilical ventral hernia to the left of the umbilicus contains short segment of the large bowel loop without definite evidence of bowel obstruction or incarceration. Small right paraumbilical ventral hernia contains short segment of small bowel loop without evidence of bowel obstruction. Additional findings as discussed above. Colonic diverticulosis without evidence of diverticulitis. [id number] constipation
[2018-10-23] MEDS ORDERED: cefTRIAXone 1 gm 1 GM/100 ML BAG IVPB STA (19:33)
--- NOTE | 2018-10-23 20:47 | CP.PCM.HP ---
<Ajith Cox - Last Filed: 10/24/18 03:45> History of Present Illness - History of Present Illness History of Present Illness: Medicine History and Physical for Hospitalist Service, Dr. Leno Cox, DO PGY-1 This is a 83 y o female with PMhx Type II DM, HLD, COPD on home O2, pulm HTN, urinary incontinence, who presents to the ED with c/o worsening R-sided low back pain x 5 days. Pt states she was able to ambulate at home and perform ADLs during symptom onset, but states that today, her pain got so severe while lying down in her recliner at home to the point where she could not get out of the chair due to pain. Pt states she called 911 for this reason. Localizes back pain to R lower back, states it starts in the midline at the spine and tracks laterally, describes it as sharp, rated it 10/10 in severity at its worst, states it has improved a little s/p Percocet in the ED. Denies any inciting factors or certain activities, i.e. lifting heavy objects, recent falls/trauma that may have contributed to the onset of her symptoms. Denies bowel/bladder incontinence. Denies associated radiation of pain down legs b/l. Denies chest pain, sob, headaches, dizziness, fever, chills, n/v/d/c, abd pain, urinary complaints, or other symptoms. Pt was recently admitted to [facility] for similar symptoms; CT abd/pelvis at that time demonstrated new compression deformity L1 vertebral body, L-spine MRI showed multiple acute compression fractures and spinal stenosis. Neurosurgery at time recommended kyphoplasty however pt refused evaluation at that time as per chart. Pt also received at time epidural injection by pain management doctor Dr. Hurtado which she tolerated well. PMhx: PMH: CAD, CHF, T2DM, HLD, COPD on home O2, pulmonary HTN, urinary incontinence, anemia of chronic disease, osteoporosis PSH: kyphoplasty, bowel resection, cardiac cath with stents x2, cholecystectomy, ovarian cystectomy SHx: denies alcohol or illicit drug use. former smoker (1.5 PPD for 50 years) Allergies: morphine, codeine, hydromorphone HCl, myocins Current meds: reviewed in MAR Fam hx: denies PMD: Dr. Dedousis Present on Admission - Present on Admission Any Indicators Present on Admission: No History of DVT/PE: No History of Uncontrolled Diabetes: No Urinary Catheter: No Decubitus Ulcer Present: No Review of Systems - Constitutional Constitutional: Fatigue, Weakness. absent: Chills, Fever - Cardiovascular Cardiovascular: absent: Chest Pain, Dyspnea on Exertion, Leg Edema, Rapid Heart Rate - Respiratory Respiratory: absent: Cough, Dyspnea, Wheezing - Gastrointestinal Gastrointestinal: Constipation. absent: Abdominal Pain, Diarrhea, Nausea, Vomiting - Genitourinary Genitourinary: absent: Dysuria, Urinary Frequency - Musculoskeletal Musculoskeletal: Back Pain. absent: Numbness, Tingling Past Patient History - Infectious Disease Hx of Infectious Diseases: None - Tetanus Immunizations Tetanus Immunization: Unknown - Past Medical History & Family History Past Medical History?: Yes - Past Social History Smoking Status: Former Smoker - CARDIAC Hx Cardiac Disorders: Yes Hx Hypertension: Yes - PULMONARY Hx Respiratory Disorders: Yes Hx Chronic Obstructive Pulmonary Disease (COPD): Yes - NEUROLOGICAL Hx Neurological Disorder: Yes Hx Dizziness: Yes - HEENT Hx HEENT Problems: Yes Hx Cataracts: Yes - RENAL Hx Chronic Kidney Disease: Yes - ENDOCRINE/METABOLIC Hx Endocrine Disorders: Yes Hx Diabetes Mellitus Type 2: Yes - HEMATOLOGICAL/ONCOLOGICAL Hx Blood Disorders: Yes Hx Blood Transfusions: Yes - INTEGUMENTARY Hx Dermatological Problems: Yes - MUSCULOSKELETAL/RHEUMATOLOGICAL Hx Musculoskeletal Disorders: Yes Hx Falls: Yes Hx Fractures: Yes (R WRIST) - GASTROINTESTINAL Hx Gastrointestinal Disorders: Yes Hx Diverticulitis: Yes Hx Gall Bladder Disease: Yes (CHLOECYSTECTOMY) Hx Gastroesophageal Reflux: Yes Other/Comment: celiac disease, umbilical hernia - GENITOURINARY/GYNECOLOGICAL Hx Genitourinary Disorders: Yes Hx Urinary Tract Infection: Yes - PSYCHIATRIC Hx Psychophysiologic Disorder: Yes Hx Anxiety: Yes Hx Panic Symptoms: Yes Hx Substance Use: No - SURGICAL HISTORY Hx Appendectomy: Yes Hx Cardiac Catheterization: Yes Hx Cholecystectomy: Yes Hx Coronary Stent: Yes - ANESTHESIA Hx Anesthesia Reactions: No Hx Malignant Hyperthermia: No Meds Allergies/Adverse Reactions: Allergies Allergy/AdvReac Type Severity Reaction Status Date / Time morphine Allergy VOMITING Verified 04/20/18 12:01 codeine AdvReac VOMITING Verified 04/20/18 12:01 hydromorphone HCl AdvReac VOMITING Verified 04/20/18 12:01 [From Dilaudid] MYOCINS AdvReac VOMITING Uncoded 04/20/18 12:01 Physical Exam - Constitutional Appears: Non-toxic, No Acute Distress - Head Exam Head Exam: ATRAUMATIC, NORMOCEPHALIC - Eye Exam Eye Exam: EOMI, Normal appearance, PERRL - ENT Exam ENT Exam: Mucous Membranes Moist - Respiratory Exam Respiratory Exam: Clear to Auscultation Bilateral, NORMAL BREATHING PATTERN. absent: Rales, Rhonchi, Wheezes - Cardiovascular Exam Cardiovascular Exam: REGULAR RHYTHM, +S1, +S2. absent: Gallop, Rubs, Systolic Murmur - GI/Abdominal Exam GI & Abdominal Exam: Normal Bowel Sounds, Soft, Tenderness Additional comments: Mild tenderness with deep palpation of LLQ in area of abdominal hernia - Extremities Exam Extremities exam: Positive for: full ROM, normal capillary refill, normal inspection, pedal pulses present. Negative for: calf tenderness, pedal edema - Back Exam Back exam: NORMAL INSPECTION, paraspinal tenderness Additional comments: Tenderness to palpation in L4-L5 area of lumbar spine on R side, no associated sciatic symptoms elicited with palpation - Neurological Exam Neurological exam: Alert, CN II-XII Intact, Oriented x3, Reflexes Normal - Skin Skin Exam: Dry, Intact, Normal Color, Warm Results - Vital Signs Recent Vital Signs: Last Vital Signs Temp 98.2 F 10/23/18 19:22 Pulse 82 10/23/18 19:22 Resp 18 10/23/18 19:22 BP 131/71 10/23/18 19:22 Pulse Ox 96 10/23/18 19:22 - Labs Result Diagrams: 10/23/18 17:39 10/23/18 17:39 Labs: Laboratory Results - last 24 hr 10/23/18 10/23/18 10/23/18 17:39 17:39 18:18 WBC 5.2 RBC 3.64 Hgb 11.3 L Hct 35.2 L MCV 96.7 MCH 31.0 MCHC 32.1 RDW 13.3 Plt Count 160 MPV 11.4 H Neut % (Auto) 70.3 H Lymph % (Auto) 19.3 L [place] % (Auto) 8.3 H Eos % (Auto) 1.9 Baso % (Auto) 0.2 Lymph # (Auto) 1.0 L [place] # (Auto) 0.4 Eos # (Auto) 0.1 Baso # (Auto) 0.01 Absolute Neuts (auto) 3.63 Sodium 137 Potassium 4.5 Chloride 102 Carbon Dioxide 31 Anion Gap 9 L BUN 23 H Creatinine 0.8 Est GFR ( Amer) > 60 Est GFR (Non-Af Amer) > 60 Random Glucose 121 H Calcium 9.4 Total Bilirubin 0.2 AST 19 ALT 11 Alkaline Phosphatase 82 Lactate Dehydrogenase 221 L Total Creatine Kinase < 20 L Troponin I < 0.01 Total Protein 6.1 Albumin 3.6 Globulin 2.5 Albumin/Globulin Ratio 1.4 Urine Color Yellow Urine Appearance Turbid Urine pH 6.0 Ur Specific [place] 1.025 Urine Protein Negative Urine Glucose (UA) Negative Urine Ketones Negative Urine Blood Trace-intact H Urine Nitrate Negative Urine Bilirubin Negative Urine Urobilinogen 1.0 H Ur Leukocyte Esterase Moderate H Urine RBC 0 - 2 Urine WBC Tntc H Ur Epithelial Cells 10 - 12 H Urine Bacteria Many Assessment & Plan - Assessment and Plan (Free Text) Assessment: This is a 83 y o female with PMhx Type II DM, HLD, COPD on home O2, pulm HTN, urinary incontinence, who presents to the ED with c/o worsening R-sided low back pain x 5 days. Admitted for intractable back pain. Plan: Intractable back pain -Admit to obs -IR (Dr. Blackburn) consulted as per pt and family's request, recs appreciated -Percocet 1 tab q 6 h prn -Flexeril 5 mg PO q 8 h prn -Lidoderm patch daily -Pt NPO -IVF at 75 cc/hr -PT eval pending -EKG on admission NSR at [address], [address]-t wave changes appreciated Abnormal U/a -Possibly contaminant sample 2/2 multiple epithelial cells noted, f/u urine cx results -No antibiotics indicated at this time -Pt not c/o symptoms of dysuria, urinary frequency, or burning with urination at this time, will cont to monitor Hx COPD on Home O2 -C/w O2 inpatient at setting of 2 L -Duonebs q6h prn -C/w home med Brovana -C/w home med Prednisone 2.5 mg daily Hx Pulm HTN -C/w home med Sildenafil Hx Opioid-induced Constipation -C/w home med Colace tid -Miralax daily added -Cont to monitor bowel function Hx HLD -C/w Lipitor daily Hx Iron-deficiency Anemia -C/w home med Feosol daily Pt seen, examined with, and plan discussed with Dr. Burr, attending physician. Ajith Cox DO PGY-1, Percussion Tuner Pager #[phone] <Erin Burr - Last Filed: 10/24/18 21:18> Results - Vital Signs Recent Vital Signs: Last Vital Signs Temp 98.4 F 10/24/18 16:49 Pulse 80 10/24/18 16:49 Resp 20 10/24/18 16:49 BP 116/68 10/24/18 16:49 Pulse Ox 100 10/24/18 16:49 - Labs Result Diagrams: 10/24/18 06:45 10/24/18 06:45 Labs: Laboratory Results - last 24 hr 10/24/18 10/24/18 10/24/18 06:45 06:45 06:45 WBC 5.2 RBC 3.25 L Hgb 9.9 L Hct 31.8 L MCV 97.8 MCH 30.5 MCHC 31.1 RDW 13.3 Plt Count 149 MPV 11.3 H Neut % (Auto) 64.0 Lymph % (Auto) 21.8 L [place] % (Auto) 8.8 H Eos % (Auto) 5.0 Baso % (Auto) 0.4 Lymph # (Auto) 1.1 L [place] # (Auto) 0.5 Eos # (Auto) 0.3 Baso # (Auto) 0.02 Absolute Neuts (auto) 3.35 PT 11.6 INR 1.03 APTT 25.6 L Sodium 137 Potassium 4.5 Chloride 102 Carbon Dioxide 33 Anion Gap 6 L BUN 21 Creatinine 0.9 Est GFR ( Amer) > 60 Est GFR (Non-Af Amer) > 60 Random Glucose 108 Calcium 9.2 Total Bilirubin 0.2 AST 18 ALT 14 Alkaline Phosphatase 74 Total Protein 5.4 L Albumin 3.1 Globulin 2.4 Albumin/Globulin Ratio 1.3 Attending/Attestation - Attestation I have personally seen and examined this patient.: Yes I have fully participated in the care of the patient.: Yes I have reviewed all pertinent clinical information: Yes
[2018-10-23] MEDS ORDERED: Albuterol-Ipratrop 3 mg / 0.5 (3 ml) UD IH PRN (21:34)
[2018-10-23 22:04] VITALS: BMI 18.5
[2018-10-23] MEDS: Lidocaine 5% Patch TD SCH (23:02)
[2018-10-23] MEDS: Sodium Chloride 0.9% 1,000 ML IV SCH (23:04)
[2018-10-23] MEDS: Oxycodone/Acetaminophen 5/325 mg Tab PO PRN (23:09)
[2018-10-24] MEDS: Oxycodone/Acetaminophen 5/325 mg Tab PO PRN ×3 (05:36→21:55)
[2018-10-24 07:21] LABS: BASO # 0.02 K/mm3 (0.0-2.0); BASO % 0.4 % (0.0-3.0); EOS # 0.3 (0.0-0.7); HEMOGLOBIN 9.9 g/dL (12.0-16.0); LYMPH # 1.1 (1.2-3.4); LYMPH % 21.8 % (22.0-35.0); MEAN CELL VOLUME 97.8 fl (80.0-105.0); MEAN CORPUSCULAR HEMOGLOBIN 30.5 pg (25.0-35.0); MEAN CORPUSCULAR HGB CONC 31.1 g/dl (31.0-37.0); MEAN PLATELET VOLUME 11.3 fl (7.0-11.0); MONO # 0.5 (0.1-0.6); MONO % 8.8 % (1.0-6.0); RBC 3.25 10^6/uL (3.5-6.1); RED CELL DISTRIBUTION WIDTH 13.3 % (11.5-14.5); WHITE BLOOD COUNT 5.2 10^3/uL (4.5-11.0)
[2018-10-24 07:31] LABS: INR 1.03; PARTIAL THROMBOPLASTIN TIME 25.6 Seconds (26.9-38.3); PROTHROMBIN TIME 11.6 SECONDS (9.4-12.5)
[2018-10-24 07:54] LABS: ALB/GLOB RATIO 1.3 (1.1-1.8); ALBUMIN 3.1 g/dL (3.0-4.8); ALT/SGPT 14 U/L (7-56); AST/SGOT 18 U/L (14-36); BLOOD UREA NITROGEN 21 mg/dL (7-21); CALCIUM 9.2 mg/dL (8.4-10.5); GFR NON-AFRICAN AMERICAN > 60
[2018-10-24] MEDS: Arformoterol 15 mcg/2 ml Inh Sol IH SCH ×2 (08:03→20:43)
--- NOTE | 2018-10-24 08:40 | RAD ---
Date of service: 10/23/2018 HISTORY: back pain/abd pain COMPARISON: 09/10/2018 FINDINGS: LUNGS: No active pulmonary disease. PLEURA: No significant pleural effusion identified, no pneumothorax apparent. CARDIOVASCULAR: No aortic atherosclerotic calcification present. Normal cardiac size. No pulmonary vascular congestion. OSSEOUS STRUCTURES: No significant abnormalities. VISUALIZED UPPER ABDOMEN: Small hiatal hernia OTHER FINDINGS: None. IMPRESSION: No active disease.
[2018-10-24] MEDS: POLYETHYLENE GLYCOL 3350 17 GM/Dose PACKET PO SCH ×2 (09:08→09:21)
[2018-10-24] MEDS: Sildenafil 20 MG TAB PO SCH ×2 (09:08→21:55)
[2018-10-24] MEDS: [UNRECOGNIZED DRUG - OTHER] PO SCH ×2 (09:58→10:02)
[2018-10-24] MEDS: DEXLANSOPRAZOLE PO SCH ×2 (09:58→10:02)
--- NOTE | 2018-10-24 12:17 | CARD ---
APPROVED REPORT Date of service: 10/23/2018 EKG Measurement Heart [id number] <Conclusion> Normal sinus rhythm Normal ECG
--- NOTE | 2018-10-24 22:57 | CP.PCM.PN ---
<Galileo Agosto - Last Filed: 10/24/18 22:50> Subjective - Date & Time of Evaluation Date of Evaluation: 10/24/18 Time of Evaluation: 12:00 - Subjective Subjective: INTERNAL MEDICINE PROGRESS NOTE FOR DR. DARON Agosto PGY1 Pt seen and examined at bedside this am. Pt is laying on L side, complaining of low back pain, She denies numbness/tingling in legs or urinary/bowel incontinence. She otherwise denies 12 point ROS. Objective - Vital Signs/Intake and Output Vital Signs (last 24 hours): Temp Pulse Resp BP Pulse Ox 98.4 F 80 20 116/68 100 10/24/18 16:49 10/24/18 16:49 10/24/18 16:49 10/24/18 16:49 10/24/18 16:49 Intake and Output: 10/24/18 10/25/18 18:59 06:59 Intake Total 900 Balance 900 - Medications Medications: Current Medications Arformoterol Tartrate (Brovana) 15 mcg IH [id number] [facility] Last Admin: 10/24/18 20:43 Dose: 15 mcg Atorvastatin Calcium (Lipitor) 10 mg PO HS [facility] Last Admin: 10/24/18 21:55 Dose: 10 mg Cyclobenzaprine HCl (Flexeril) 5 mg PO Q8H PRN PRN Reason: Pain, moderate (4-7) Docusate Sodium (Colace) 100 mg PO Q8 [facility] Last Admin: 10/24/18 21:55 Dose: 100 mg Ferrous Sulfate (Feosol) 324 mg PO DAILY [facility] Last Admin: 10/24/18 09:08 Dose: 324 mg Home Med (Home Med) 1 unit PO DAILY [facility] Last Admin: 10/24/18 10:02 Dose: 1 unit Sodium Chloride (Sodium Chloride 0.9%) 1,000 mls @ 75 mls/hr IV .[id number] [facility] Last Admin: 10/23/18 23:04 Dose: 75 mls/hr Lidocaine (Lidoderm) 1 ea TD DAILY [facility] Last Admin: 10/23/18 23:02 Dose: 1 ea Meclizine HCl (Antivert) 12.5 mg PO BID [facility] Last Admin: 10/24/18 18:03 Dose: 12.5 mg Oxycodone/Acetaminophen (Percocet 5/325 Mg Tab) 1 tab PO Q6H PRN PRN Reason: Pain, severe (8-10) Stop: 10/26/18 21:31 Last Admin: 10/24/18 21:55 Dose: 1 tab Polyethylene Glycol (Miralax) 17 gm PO DAILY [facility] Last Admin: 10/24/18 09:21 Dose: Not Given Prednisone (Prednisone Tab) 2.5 mg PO DAILY [facility] Last Admin: 10/24/18 09:08 Dose: 2.5 mg Sildenafil Citrate (Revatio) 20 mg PO Q12 [facility] Last Admin: 10/24/18 21:55 Dose: 20 mg - Labs Labs: 10/24/18 06:45 10/24/18 06:45 PT 11.6 SECONDS (9.4-12.5) 10/24/18 06:45 INR 1.03 10/24/18 06:45 APTT 25.6 Seconds (26.9-38.3) L 10/24/18 06:45 - Additional Findings Additional findings: - Constitutional Appears: Non-toxic, No Acute Distress - Head Exam Head Exam: ATRAUMATIC, NORMOCEPHALIC - Eye Exam Eye Exam: EOMI, Normal appearance, PERRL - ENT Exam ENT Exam: Mucous Membranes Moist - Respiratory Exam Respiratory Exam: Clear to Auscultation Bilateral, NORMAL BREATHING PATTERN. absent: Rales, Rhonchi, Wheezes - Cardiovascular Exam Cardiovascular Exam: REGULAR RHYTHM, +S1, +S2. absent: Gallop, Rubs, Systolic Murmur - GI/Abdominal Exam GI & Abdominal Exam: Normal Bowel Sounds, Soft, Tenderness Additional comments: Mild tenderness with deep palpation of LLQ in area of abdominal hernia - Extremities Exam Extremities exam: Positive for: full ROM, normal capillary refill, normal inspection, pedal pulses present. Negative for: calf tenderness, pedal edema - Back Exam Back exam: NORMAL INSPECTION, paraspinal tenderness Additional comments: Tenderness to palpation in L4-L5 area of lumbar spine on R side, no associated sciatic symptoms elicited with palpation - Neurological Exam Neurological exam: Alert, CN II-XII Intact, Oriented x3, Reflexes Normal - Skin Skin Exam: Dry, Intact, Normal Color, Warm Assessment and Plan - Assessment and Plan (Free Text) Assessment: 83 y o female with PMhx Type II DM, HLD, COPD on home O2, pulm HTN, urinary incontinence, who presents to the ED with c/o worsening R-sided low back pain x 5 days. Admitted for intractable back pain. Plan: Intractable back pain IR (Dr. Blackburn) consulted as per pt and family's request, recs appreciated MRI Lumbar pending. Percocet 1 tab q 6 h prn Flexeril 5 mg PO q 8 h prn Lidoderm patch daily NS @ 75 cc/hr Chronic COPD 2L O2 NC continue Duonebs q6h prn continue home med Brovana continue home med Prednisone 2.5 mg daily Pulm HTN continue home med Sildenafil Opioid-induced Constipation continue home med Colace tid Miralax daily added Cont to monitor bowel function HLD continue Lipitor daily Hx Iron-deficiency Anemia continue home Feosol daily DVT/GI: SCD Case seen, examined and discussed with attending physician, Dr. Daron Agosto PGY1 <Lexy Guardado - Last Filed: 10/27/18 18:00> Objective - Vital Signs/Intake and Output Vital Signs (last 24 hours): Temp Pulse Resp BP Pulse Ox 98.1 F 86 20 131/84 100 10/27/18 16:46 10/27/18 16:46 10/27/18 16:46 10/27/18 16:46 10/27/18 16:46 Intake and Output: 10/27/18 10/27/18 06:59 18:59 Intake Total 420 Output Total 550 Balance -130 - Medications Medications: Current Medications Arformoterol Tartrate (Brovana) 15 mcg IH [id number] [facility] Last Admin: 10/27/18 07:40 Dose: 15 mcg Aspirin (Aspirin Chewable) 81 mg PO DAILY [facility] Last Admin: 10/27/18 14:40 Dose: 81 mg Atorvastatin Calcium (Lipitor) 10 mg PO HS [facility] Last Admin: 10/26/18 21:18 Dose: 10 mg Cyclobenzaprine HCl (Flexeril) 5 mg PO Q8H PRN PRN Reason: Pain, moderate (4-7) Last Admin: 10/26/18 19:57 Dose: 5 mg Docusate Sodium (Colace) 100 mg PO Q8 [facility] Last Admin: 10/27/18 14:40 Dose: 100 mg Enoxaparin Sodium (Lovenox) 40 mg SC DAILY [facility]; Protocol Ferrous Sulfate (Feosol) 324 mg PO DAILY [facility] Last Admin: 10/27/18 10:43 Dose: Not Given Home Med (Home Med) 1 unit PO DAILY [facility] Last Admin: 10/27/18 10:43 Dose: Not Given Sodium Chloride (Sodium Chloride 0.9%) 1,000 mls @ 75 mls/hr IV .[id number] [facility] Last Admin: 10/26/18 17:08 Dose: 75 mls/hr Ceftriaxone Sodium (Rocephin 1 Gram Ivpb) 1 gm in 100 mls @ 100 mls/hr IVPB DAILY [facility]; Protocol Last Admin: 10/26/18 14:24 Dose: 100 mls/hr Sodium Chloride (Sodium Chloride 0.45%) 1,000 mls @ 80 mls/hr IV .[id number] [facility] Stop: 10/27/18 20:00 Lidocaine (Lidoderm) 1 ea TD DAILY [facility] Last Admin: 10/27/18 10:43 Dose: Not Given Meclizine HCl (Antivert) 12.5 mg PO BID [facility] Last Admin: 10/27/18 10:43 Dose: Not Given Ondansetron HCl (Zofran Inj) 4 mg IVP Q6H PRN PRN Reason: Nausea/Vomiting Oxycodone/Acetaminophen (Percocet 5/325 Mg Tab) 1 tab PO Q6H PRN PRN Reason: Pain, severe (8-10) Stop: 10/30/18 13:05 Polyethylene Glycol (Miralax) 17 gm PO DAILY [facility] Last Admin: 10/27/18 10:43 Dose: Not Given Prednisone (Prednisone Tab) 2.5 mg PO DAILY [facility] Last Admin: 10/27/18 10:43 Dose: Not Given Sildenafil Citrate (Revatio) 20 mg PO Q12 [facility] Last Admin: 10/27/18 10:44 Dose: Not Given - Labs Labs: 10/27/18 06:30 10/27/18 06:30 PT 11.6 SECONDS (9.4-12.5) 10/26/18 12:50 INR 1.03 10/26/18 12:50 APTT 27.3 Seconds (26.9-38.3) 10/26/18 12:50 Attending/Attestation - Attestation I have personally seen and examined this patient.: Yes I have fully participated in the care of the patient.: Yes I have reviewed all pertinent clinical information, including history, physical exam and plan: Yes Notes (Text): 10/27/18 17:41 attending note; Patient seen and examined with resident. Patient is alert and awake. Still complaining of significant back pain/muscle spasm. Denies any fevers, chills. Complaining of constipation. Denies any abdominal pain. denies any urinary symptoms. Complaining of constipation. Patient is a 83-year-old female with PMhx Type II DM, HLD, COPD on home O2, pulm HTN, multiple vertebral fractures, history of kyphoplasty, severe osteoporosis , urinary incontinence is admitted for worsening R-sided low back pain x 5 days. Admitted for intractable back pain. 1. Intractable back pain; patient with severe osteoporosis and multiple f ractures in the past. Patient refused kyphoplasty during last admission. Patient got minimal pain relief with epidural injections. Currently requesting to see Dr. Harrison Blackburn for possible kyphoplasty. MRI of the lumbar spine ordered. 2. Ventral hernia; abdominal ultrasound showed paraumbilical ventral hernia. No significant strangulation noted. Patient refused surgery in the past. 3.chronic Constipation; secondary to opiates. Continue by mouth MiraLAX and colace. 4. Positive UA; follow up urine cultures. Patient got a dose of Rocephin in the ER. 5.Chronic COPD; currently on oxygen 2 L nasal cannula. continue Duonebs q6h prn continue home med Brovana continue home med Prednisone 2.5 mg daily 6.continue home med Sildenafil. 7.GI prophylaxis with for lacks is with dexilant. upon discharge the patient will follow-up with PMD Dr. Valentine. 10/27/18 17:57
[2018-10-25 06:54] LABS: BASO # 0.02 K/mm3 (0.0-2.0); BASO % 0.4 % (0.0-3.0); EOS # 0.3 (0.0-0.7); EOS % 5.5 % (1.5-5.0); LYMPH # 1.1 (1.2-3.4); LYMPH % 25.2 % (22.0-35.0); MEAN CELL VOLUME 97.8 fl (80.0-105.0); MEAN CORPUSCULAR HEMOGLOBIN 30.9 pg (25.0-35.0); MEAN CORPUSCULAR HGB CONC 31.5 g/dl (31.0-37.0); MONO # 0.4 (0.1-0.6); MONO % 9.1 % (1.0-6.0); RBC 3.24 10^6/uL (3.5-6.1); RED CELL DISTRIBUTION WIDTH 13.4 % (11.5-14.5); WHITE BLOOD COUNT 4.5 10^3/uL (4.5-11.0)
[2018-10-25] MEDS: Oxycodone/Acetaminophen 5/325 mg Tab PO PRN ×3 (07:10→20:11)
[2018-10-25 07:17] LABS: ALB/GLOB RATIO 1.2 (1.1-1.8); ALBUMIN 2.9 g/dL (3.0-4.8); ALT/SGPT 16 U/L (7-56); AST/SGOT 19 U/L (14-36); BLOOD UREA NITROGEN 23 mg/dL (7-21); GFR NON-AFRICAN AMERICAN > 60
[2018-10-25] MEDS: Arformoterol 15 mcg/2 ml Inh Sol IH SCH ×2 (07:55→19:25)
[2018-10-25] MEDS: [UNRECOGNIZED DRUG - OTHER] PO SCH (09:12)
[2018-10-25] MEDS: DEXLANSOPRAZOLE PO SCH (09:12)
[2018-10-25] MEDS: Sildenafil 20 MG TAB PO SCH ×2 (09:12→21:20)
[2018-10-25] MEDS: Lidocaine 5% Patch TD SCH (09:13)
[2018-10-25] MEDS: POLYETHYLENE GLYCOL 3350 17 GM/Dose PACKET PO SCH (09:13)
[2018-10-25] MEDS ORDERED: POLYETHYLENE GLYCOL 3350 17 GM/Dose PACKET PO STA (13:13)
--- NOTE | 2018-10-25 13:34 | MRI ---
Date of service: 10/25/2018 PROCEDURE: MR LUMBAR SPINE WITHOUT CONTRAST HISTORY: Incl T10, T11 and T12. Mult comp fx. ? kypho COMPARISON: 09/15/2018 TECHNIQUE: Multiecho multiplanar sequences were performed through the lumbar spine without the use of intravenous contrast. FINDINGS: Normal lumbar lordosis. There is persistent marrow edema in the T10 vertebral body unchanged from the prior study. There is new marrow edema in the T11 vertebral body with a mild degree of compression. Previous vertebroplasty at T12. Chronic compression fracture of L1. L2 and L3 are unremarkable. Severe compression fracture of L4 which was seen previously. There is a slight decrease in the amount of marrow edema. The L5 vertebral body is unremarkable. Conus medullaris unremarkable at the level of T12 Paraspinal soft tissues are unremarkable. IMPRESSION: New marrow edema in the T11 vertebral body with a mild degree of compression. See comments
--- NOTE | 2018-10-25 14:23 | CP.PCM.APN ---
Subjective - Date & Time of Evaluation Date of Evaluation: 10/25/18 Time of Evaluation: 09:35 - Subjective Subjective: Pt. seen and examined in bed, complaints of mod-severe lower back pain. Denied shortness of breath, chest pain. States feeling constipated, last BM 2 days ago. Denied abdominal pain, nausea, or vomiting. Objective - Vital Signs/Intake and Output Vital Signs (last 24 hours): Temp Pulse Resp BP Pulse Ox 97.8 F 88 20 105/54 L 98 10/25/18 08:38 10/25/18 08:38 10/25/18 08:38 10/25/18 08:38 10/25/18 08:38 Intake and Output: 10/25/18 10/25/18 06:59 18:59 Intake Total 0 Output Total 450 Balance -450 - Medications Medications: Current Medications Arformoterol Tartrate (Brovana) 15 mcg IH [id number] [facility] Last Admin: 10/25/18 07:55 Dose: 15 mcg Atorvastatin Calcium (Lipitor) 10 mg PO HS [facility] Last Admin: 10/24/18 21:55 Dose: 10 mg Cyclobenzaprine HCl (Flexeril) 5 mg PO Q8H PRN PRN Reason: Pain, moderate (4-7) Docusate Sodium (Colace) 100 mg PO Q8 [facility] Last Admin: 10/25/18 13:38 Dose: 100 mg Ferrous Sulfate (Feosol) 324 mg PO DAILY [facility] Last Admin: 10/25/18 09:10 Dose: 324 mg Home Med (Home Med) 1 unit PO DAILY [facility] Last Admin: 10/25/18 09:12 Dose: 1 unit Sodium Chloride (Sodium Chloride 0.9%) 1,000 mls @ 75 mls/hr IV .[id number] [facility] Last Admin: 10/23/18 23:04 Dose: 75 mls/hr Meropenem/Sodium Chloride (Merrem Iv 500 Mg/Ns 50 Ml) 500 mg in 50 mls @ 100 mls/hr IVPB Q12 [facility]; Protocol Stop: 10/25/18 22:29 Lidocaine (Lidoderm) 1 ea TD DAILY [facility] Last Admin: 10/25/18 09:13 Dose: 1 ea Meclizine HCl (Antivert) 12.5 mg PO BID [facility] Last Admin: 10/25/18 09:10 Dose: 12.5 mg Oxycodone/Acetaminophen (Percocet 5/325 Mg Tab) 1 tab PO Q6H PRN PRN Reason: Pain, severe (8-10) Stop: 10/26/18 21:31 Last Admin: 10/25/18 14:08 Dose: 1 tab Polyethylene Glycol (Miralax) 17 gm PO DAILY [facility] Last Admin: 10/25/18 09:13 Dose: 17 gm Prednisone (Prednisone Tab) 2.5 mg PO DAILY [facility] Last Admin: 10/25/18 09:12 Dose: 2.5 mg Sildenafil Citrate (Revatio) 20 mg PO Q12 [facility] Last Admin: 10/25/18 09:12 Dose: 20 mg - Labs Labs: 10/25/18 06:30 10/25/18 06:30 PT 11.6 SECONDS (9.4-12.5) 10/24/18 06:45 INR 1.03 10/24/18 06:45 APTT 25.6 Seconds (26.9-38.3) L 10/24/18 06:45 - Constitutional Appears: Well, Non-toxic - Head Exam Head Exam: NORMOCEPHALIC - Eye Exam Eye Exam: Normal appearance - Neck Exam Neck Exam: Full ROM - Respiratory Exam Respiratory Exam: Clear to Ausculation Bilateral - Cardiovascular Exam Cardiovascular Exam: REGULAR RHYTHM - GI/Abdominal Exam GI & Abdominal Exam: Soft, Normal Bowel Sounds - Rectal Exam Rectal Exam: Deferred - Exam Exam: absent: Circumcision, NORMAL INSPECTION, Scrotal Swelling, Testicular Tenderness, Uretheral Discharge, Testicular Vertical Lie, Bladder Distension External exam: absent: Ecchymosis, Erythema, Lacerations, Lesions, NORMAL EXTERNAL EXAM, Swelling Speculum exam: absent: Cervical Discharge, Erythema, Foreign Body, Laceration, NORMAL SPECULUM EXAM, Tissue, Vaginal Bleeding, Vaginal Discharge Bimanual exam: absent: Adenexal Mass, Adnexal, Cervical Motion Tendernes, NORMAL BIMANUAL EXAM, Uterine Enlargement, Uterine Tenderness - Back Exam Back Exam: muscle spasm Additional comments: c/o pain to lower back - Neurological Exam Neurological Exam: Alert, Awake, Oriented x3 - Psychiatric Exam Psychiatric exam: Normal Affect, Normal Mood - Skin Skin Exam: Dry, Intact, Normal Color Assessment and Plan - Assessment and Plan (Free Text) Assessment: Impressions Lumbar Spine MRI 10/25/18 08:00 IMPRESSION: New marrow edema in the T11 vertebral body with a mild degree of compression. See comments ITS Impressions Chest X-Ray 10/23/18 16:52 IMPRESSION: No active disease. Abdomen/Pelvis CT 10/23/18 17:12 IMPRESSION: Large paraumbilical ventral hernia to the left of the umbilicus contains short segment of the large bowel loop without definite evidence of bowel obstruction or incarceration. Small right paraumbilical ventral hernia contains short segment of small bowel loop without evidence of bowel obstruction. Additional findings as discussed above. Colonic diverticulosis without evidence of diverticulitis. [id number] constipation Lumbar Spine MRI 10/25/18 08:00 IMPRESSION: New marrow edema in the T11 vertebral body with a mild degree of compression. See comments 83 y o female with PMhx Type II DM, HLD, COPD on home O2, pulm HTN, urinary incontinence, who presents to the ED with c/o worsening R-sided low back pain x 5 days. Admitted for intractable lower back pain. Plan: Intractable back pain IR (Dr. Blackburn) consulted as per pt and family's request, recs appreciated MRI Lumbar resulted mild degree of compression in T11 with marrow edema,severe L4 compression fx, as prior. Percocet 1 tab q 6 h prn Flexeril 5 mg PO q 8 h prn Lidoderm patch daily NS @ 75 cc/hr Chronic COPD 2L O2 NC continue Duonebs q6h prn continue home med Brovana continue home med Prednisone 2.5 mg daily Constipation Miralax Daily, Encourage fluid intake and OOB, ambulation as tolerated. PT eval pending. Will continue to monitor clinical status and follow closely.
--- NOTE | 2018-10-25 16:50 | CP.PCM.PN ---
<Galileo Agosto - Last Filed: 10/25/18 16:40> Subjective - Date & Time of Evaluation Date of Evaluation: 10/25/18 Time of Evaluation: 12:00 - Subjective Subjective: INTERNAL MEDICINE PROGRESS NOTE FOR DR. DARON Agosto PGY1 Pt seen and examined at bedside this am. Pt reports continued back pain. She is tolerating her diet. She reports passing gas, however is constipated. Denies other complaints Objective - Vital Signs/Intake and Output Vital Signs (last 24 hours): Temp Pulse Resp BP Pulse Ox 97.8 F 88 20 105/54 L 98 10/25/18 08:38 10/25/18 08:38 10/25/18 08:38 10/25/18 08:38 10/25/18 08:38 Intake and Output: 10/25/18 10/25/18 06:59 18:59 Intake Total 0 Output Total 450 Balance -450 - Medications Medications: Current Medications Arformoterol Tartrate (Brovana) 15 mcg IH [id number] [facility] Last Admin: 10/25/18 07:55 Dose: 15 mcg Atorvastatin Calcium (Lipitor) 10 mg PO HS [facility] Last Admin: 10/24/18 21:55 Dose: 10 mg Cyclobenzaprine HCl (Flexeril) 5 mg PO Q8H PRN PRN Reason: Pain, moderate (4-7) Docusate Sodium (Colace) 100 mg PO Q8 [facility] Last Admin: 10/25/18 13:38 Dose: 100 mg Ferrous Sulfate (Feosol) 324 mg PO DAILY [facility] Last Admin: 10/25/18 09:10 Dose: 324 mg Home Med (Home Med) 1 unit PO DAILY [facility] Last Admin: 10/25/18 09:12 Dose: 1 unit Sodium Chloride (Sodium Chloride 0.9%) 1,000 mls @ 75 mls/hr IV .[id number] [facility] Last Admin: 10/23/18 23:04 Dose: 75 mls/hr Meropenem/Sodium Chloride (Merrem Iv 500 Mg/Ns 50 Ml) 500 mg in 50 mls @ 100 mls/hr IVPB Q12 [facility]; Protocol Stop: 10/25/18 22:29 Lidocaine (Lidoderm) 1 ea TD DAILY [facility] Last Admin: 10/25/18 09:13 Dose: 1 ea Meclizine HCl (Antivert) 12.5 mg PO BID [facility] Last Admin: 10/25/18 09:10 Dose: 12.5 mg Oxycodone/Acetaminophen (Percocet 5/325 Mg Tab) 1 tab PO Q6H PRN PRN Reason: Pain, severe (8-10) Stop: 10/26/18 21:31 Last Admin: 10/25/18 14:08 Dose: 1 tab Polyethylene Glycol (Miralax) 17 gm PO DAILY [facility] Last Admin: 10/25/18 09:13 Dose: 17 gm Prednisone (Prednisone Tab) 2.5 mg PO DAILY [facility] Last Admin: 10/25/18 09:12 Dose: 2.5 mg Sildenafil Citrate (Revatio) 20 mg PO Q12 [facility] Last Admin: 10/25/18 09:12 Dose: 20 mg - Labs Labs: 10/25/18 06:30 10/25/18 06:30 PT 11.6 SECONDS (9.4-12.5) 10/24/18 06:45 INR 1.03 10/24/18 06:45 APTT 25.6 Seconds (26.9-38.3) L 10/24/18 06:45 - Additional Findings Additional findings: - Additional Findings Additional findings: - Constitutional Appears: Non-toxic, No Acute Distress - Head Exam Head Exam: ATRAUMATIC, NORMOCEPHALIC - Eye Exam Eye Exam: EOMI, Normal appearance, PERRL - ENT Exam ENT Exam: Mucous Membranes Moist - Respiratory Exam Respiratory Exam: Clear to Auscultation Bilateral, NORMAL BREATHING PATTERN. absent: Rales, Rhonchi, Wheezes - Cardiovascular Exam Cardiovascular Exam: REGULAR RHYTHM, +S1, +S2. absent: Gallop, Rubs, Systolic Murmur - GI/Abdominal Exam GI & Abdominal Exam: Normal Bowel Sounds, Soft, Tenderness Additional comments: Mild tenderness with deep palpation of LLQ in area of abdominal hernia - Extremities Exam Extremities exam: Positive for: full ROM, normal capillary refill, normal inspection, pedal pulses present. Negative for: calf tenderness, pedal edema - Back Exam Back exam: NORMAL INSPECTION, paraspinal tenderness Additional comments: Tenderness to palpation in L4-L5 area of lumbar spine on R side, no associated sciatic symptoms elicited with palpation - Neurological Exam Neurological exam: Alert, CN II-XII Intact, Oriented x3, Reflexes Normal - Skin Skin Exam: Dry, Intact, Normal Color, Warm Assessment and Plan - Assessment and Plan (Free Text) Assessment: 83 y o female with PMhx Type II DM, HLD, COPD on home O2, pulm HTN, urinary incontinence, who presents to the ED with c/o worsening R-sided low back pain x 5 days. Admitted for intractable back pain. Plan: Intractable back pain Lumbar MRI: New marrow edema in the T11 vertebral body w/ a mild degree of compression.Severe compression fx of L4. Dr. Hurtado consulted for pain management, possible epidural injection IR (Dr. Blackburn) consulted Percocet 1 tab q 6 h prn Flexeril 5 mg PO q 8 h prn Lidoderm patch daily NS @ 75 cc/hr Chronic COPD 2L O2 NC continue home med Brovana continue home med Prednisone 2.5 mg daily Pulm HTN continue home med Sildenafil Opioid-induced Constipation continue home med Colace tid Miralax daily added glycerin suppository as needed HLD continue Lipitor daily Hx Iron-deficiency Anemia continue home Feosol daily DVT/GI: SCD Case seen, examined and discussed with attending physician, Dr. Daron Agosto PGY1 <Lexy Guardado - Last Filed: 10/27/18 18:11> Objective - Vital Signs/Intake and Output Vital Signs (last 24 hours): Temp Pulse Resp BP Pulse Ox 98.1 F 86 20 131/84 100 10/27/18 16:46 10/27/18 16:46 10/27/18 16:46 10/27/18 16:46 10/27/18 16:46 Intake and Output: 10/27/18 10/27/18 06:59 18:59 Intake Total 420 Output Total 550 Balance -130 - Medications Medications: Current Medications Arformoterol Tartrate (Brovana) 15 mcg IH [id number] [facility] Last Admin: 10/27/18 07:40 Dose: 15 mcg Aspirin (Aspirin Chewable) 81 mg PO DAILY [facility] Last Admin: 10/27/18 14:40 Dose: 81 mg Atorvastatin Calcium (Lipitor) 10 mg PO HS [facility] Last Admin: 10/26/18 21:18 Dose: 10 mg Cyclobenzaprine HCl (Flexeril) 5 mg PO Q8H PRN PRN Reason: Pain, moderate (4-7) Last Admin: 10/26/18 19:57 Dose: 5 mg Docusate Sodium (Colace) 100 mg PO Q8 [facility] Last Admin: 10/27/18 14:40 Dose: 100 mg Enoxaparin Sodium (Lovenox) 40 mg SC DAILY [facility]; Protocol Ferrous Sulfate (Feosol) 324 mg PO DAILY [facility] Last Admin: 10/27/18 10:43 Dose: Not Given Home Med (Home Med) 1 unit PO DAILY [facility] Last Admin: 10/27/18 10:43 Dose: Not Given Sodium Chloride (Sodium Chloride 0.9%) 1,000 mls @ 75 mls/hr IV .[id number] [facility] Last Admin: 10/27/18 17:57 Dose: 75 mls/hr Ceftriaxone Sodium (Rocephin 1 Gram Ivpb) 1 gm in 100 mls @ 100 mls/hr IVPB DAILY [facility]; Protocol Last Admin: 10/26/18 14:24 Dose: 100 mls/hr Sodium Chloride (Sodium Chloride 0.45%) 1,000 mls @ 80 mls/hr IV .[id number] [facility] Stop: 10/27/18 20:00 Lidocaine (Lidoderm) 1 ea TD DAILY [facility] Last Admin: 10/27/18 10:43 Dose: Not Given Meclizine HCl (Antivert) 12.5 mg PO BID [facility] Last Admin: 10/27/18 10:43 Dose: Not Given Ondansetron HCl (Zofran Inj) 4 mg IVP Q6H PRN PRN Reason: Nausea/Vomiting Oxycodone/Acetaminophen (Percocet 5/325 Mg Tab) 1 tab PO Q6H PRN PRN Reason: Pain, severe (8-10) Stop: 10/30/18 13:05 Polyethylene Glycol (Miralax) 17 gm PO DAILY [facility] Last Admin: 10/27/18 10:43 Dose: Not Given Prednisone (Prednisone Tab) 2.5 mg PO DAILY [facility] Last Admin: 10/27/18 10:43 Dose: Not Given Sildenafil Citrate (Revatio) 20 mg PO Q12 [facility] Last Admin: 10/27/18 10:44 Dose: Not Given - Labs Labs: 10/27/18 06:30 10/27/18 06:30 PT 11.6 SECONDS (9.4-12.5) 10/26/18 12:50 INR 1.03 10/26/18 12:50 APTT 27.3 Seconds (26.9-38.3) 10/26/18 12:50 Attending/Attestation - Attestation I have personally seen and examined this patient.: Yes I have fully participated in the care of the patient.: Yes I have reviewed all pertinent clinical information, including history, physical exam and plan: Yes Notes (Text): 10/27/18 18:00 attending note; Patient seen and examined with resident. Patient is alert and awake. Still complaining of significant back pain/muscle spasm. Denies any fevers, chills. Complaining of constipation. Denies any abdominal pain. denies any urinary symptoms. Complaining of constipation. Patient is a 83-year-old female with PMhx Type II DM, HLD, COPD on home O2, pulm HTN, multiple vertebral fractures, history of kyphoplasty, severe osteoporosis , urinary incontinence is admitted for worsening R-sided low back pain x 5 days. Admitted for intractable back pain. 1. Intractable back pain; patient with severe osteoporosis and multiple f ractures in the past. continue Percocet. IV morphine when necessary ordered for severe pain. seen by Dr. Harrison Blackburn for possible kyphoplasty. MRI of the spine showed new bone marrow edema at T11. 2. Ventral hernia; abdominal ultrasound showed paraumbilical ventral hernia. No significant strangulation noted. Patient refused surgery in the past. continue abdominal binder. 3.chronic Constipation; secondary to opiates. Continue by mouth MiraLAX and colace. glycerin suppository as needed. 4.Escherichia coli UTI; on IV Rocephin. 5.Chronic COPD; currently on oxygen 2 L nasal cannula. continue Duonebs q6h prn continue home med Brovana continue home med Prednisone 2.5 mg daily 6.continue home med Sildenafil. 7.GI prophylaxis with for lacks is with dexilant. plan for kyphoplasty tomorrow. upon discharge the patient will follow-up with PMD Dr. Valentine.
[2018-10-25] MEDS ORDERED: MEROPENEM 500 MG in NS 500 MG/50 ML BAG IVPB SCH (22:00)
--- NOTE | 2018-10-26 00:01 | CON ---
DATE: 10/25/2018 TIME: 8:30 p.m. CHIEF COMPLAINT/HISTORY OF PRESENT ILLNESS: This is an 83-year-old female who was admitted with severe thoracic and lumbar pain. She states her pain started about 2 weeks ago and has gotten progressively worse. She is unable to perform her normal activities. She denies any trauma. She has no bowel or bladder symptoms. No pain radiating down her legs. She denies fevers, sweats or chills. PAST SURGICAL HISTORY: Significant for a previous T12 kyphoplasty. She said she got relief with that procedure. She has had an epidural recently without significant improvement. She is anxious to have further treatment. PAST MEDICAL HISTORY: Significant for coronary artery disease; CHF; COPD, on home O2; type 2 diabetes; osteoporosis. She is tender both in the lower thoracic region and lower lumbar area. Her MRI on this admission demonstrates new compression fractures involving T10 and T11. The old kyphoplasty was performed at T12. There is a healed compression fracture of L1. There is a mixed fracture of L4 with some edema. I had a lengthy discussion with Ms. Blackburn. She would like kyphoplasty and some pain relief. I will schedule her for T10 and T11 kyphoplasty on Tuesday morning. We will observe her L4 compression fracture at this time. Hopefully, she will not need an intervention at the L4 level. Harrison Blackburn MD MTDD
[2018-10-26 06:38] LABS: BASO # 0.03 K/mm3 (0.0-2.0); BASO % 0.7 % (0.0-3.0); EOS # 0.2 (0.0-0.7); EOS % 3.7 % (1.5-5.0); HEMOGLOBIN 9.2 g/dL (12.0-16.0); LYMPH # 1.2 (1.2-3.4); LYMPH % 28.4 % (22.0-35.0); MEAN CELL VOLUME 97.7 fl (80.0-105.0); MEAN CORPUSCULAR HEMOGLOBIN 30.7 pg (25.0-35.0); MEAN CORPUSCULAR HGB CONC 31.4 g/dl (31.0-37.0); MEAN PLATELET VOLUME 10.7 fl (7.0-11.0); MONO # 0.3 (0.1-0.6); MONO % 7.9 % (1.0-6.0); RED CELL DISTRIBUTION WIDTH 13.4 % (11.5-14.5); WHITE BLOOD COUNT 4.3 10^3/uL (4.5-11.0)
[2018-10-26 06:54] LABS: ALB/GLOB RATIO 1.3 (1.1-1.8); ALBUMIN 2.7 g/dL (3.0-4.8); ALT/SGPT 17 U/L (7-56); AST/SGOT 16 U/L (14-36); BLOOD UREA NITROGEN 21 mg/dL (7-21); CALCIUM 8.5 mg/dL (8.4-10.5); GFR NON-AFRICAN AMERICAN > 60
[2018-10-26] MEDS: Arformoterol 15 mcg/2 ml Inh Sol IH SCH ×2 (07:42→19:54)
[2018-10-26] MEDS: DEXLANSOPRAZOLE PO SCH (09:06)
[2018-10-26] MEDS: [UNRECOGNIZED DRUG - OTHER] PO SCH (09:06)
[2018-10-26] MEDS: POLYETHYLENE GLYCOL 3350 17 GM/Dose PACKET PO SCH (09:06)
[2018-10-26] MEDS: Lidocaine 5% Patch TD SCH (09:06)
[2018-10-26] MEDS: Oxycodone/Acetaminophen 5/325 mg Tab PO PRN ×2 (09:07→19:56)
[2018-10-26] MEDS: Sildenafil 20 MG TAB PO SCH ×2 (09:08→21:18)
--- NOTE | 2018-10-26 11:04 | CP.PCM.APN ---
Subjective - Date & Time of Evaluation Date of Evaluation: 10/26/18 Time of Evaluation: 09:55 - Subjective Subjective: Pt. seen and examined in bed, still complaints of lower back pain, denied any other complaints, states took Valium, reluctant to take other pain medications ordered. Objective - Vital Signs/Intake and Output Vital Signs (last 24 hours): Temp Pulse Resp BP Pulse Ox 98.1 F 74 20 130/67 99 10/26/18 08:21 10/26/18 08:21 10/26/18 08:21 10/26/18 08:21 10/26/18 08:21 Intake and Output: 10/26/18 10/26/18 06:59 18:59 Intake Total 120 Balance 120 - Medications Medications: Current Medications Arformoterol Tartrate (Brovana) 15 mcg IH [id number] [facility] Last Admin: 10/26/18 07:42 Dose: 15 mcg Atorvastatin Calcium (Lipitor) 10 mg PO HS [facility] Last Admin: 10/25/18 21:20 Dose: 10 mg Cyclobenzaprine HCl (Flexeril) 5 mg PO Q8H PRN PRN Reason: Pain, moderate (4-7) Last Admin: 10/26/18 09:05 Dose: 5 mg Docusate Sodium (Colace) 100 mg PO Q8 [facility] Last Admin: 10/26/18 06:10 Dose: Not Given Ferrous Sulfate (Feosol) 324 mg PO DAILY [facility] Last Admin: 10/26/18 09:05 Dose: 324 mg Home Med (Home Med) 1 unit PO DAILY [facility] Last Admin: 10/26/18 09:06 Dose: 1 unit Sodium Chloride (Sodium Chloride 0.9%) 1,000 mls @ 75 mls/hr IV .[id number] [facility] Last Admin: 10/23/18 23:04 Dose: 75 mls/hr Lidocaine (Lidoderm) 1 ea TD DAILY [facility] Last Admin: 10/26/18 09:06 Dose: 1 ea Meclizine HCl (Antivert) 12.5 mg PO BID [facility] Last Admin: 10/26/18 09:05 Dose: 12.5 mg Oxycodone/Acetaminophen (Percocet 5/325 Mg Tab) 1 tab PO Q6H PRN PRN Reason: Pain, severe (8-10) Stop: 10/26/18 21:31 Last Admin: 10/26/18 09:07 Dose: 1 tab Polyethylene Glycol (Miralax) 17 gm PO DAILY [facility] Last Admin: 10/26/18 09:06 Dose: 17 gm Prednisone (Prednisone Tab) 2.5 mg PO DAILY [facility] Last Admin: 10/26/18 09:07 Dose: 2.5 mg Sildenafil Citrate (Revatio) 20 mg PO Q12 [facility] Last Admin: 10/26/18 09:08 Dose: 20 mg - Labs Labs: 10/26/18 06:20 10/26/18 06:20 PT 11.6 SECONDS (9.4-12.5) 10/24/18 06:45 INR 1.03 10/24/18 06:45 APTT 25.6 Seconds (26.9-38.3) L 10/24/18 06:45 - Constitutional Appears: Well, Non-toxic - Head Exam Head Exam: NORMOCEPHALIC - Eye Exam Eye Exam: Normal appearance - ENT Exam ENT Exam: absent: Mucous Membranes Dry, Mucous Membranes Moist, Normal Exam, Normal External Ear Exam, Normal Oropharynx, TM's Normal Bilaterally - Neck Exam Neck Exam: absent: Full ROM, Lymphadenopathy, Meningismus, Normal Inspection, Tenderness, Thyromegaly - Respiratory Exam Respiratory Exam: Clear to Ausculation Bilateral - Cardiovascular Exam Cardiovascular Exam: REGULAR RHYTHM, +S1, +S2 - GI/Abdominal Exam GI & Abdominal Exam: Soft - Rectal Exam Rectal Exam: Deferred - Exam Exam: absent: Circumcision, NORMAL INSPECTION, Scrotal Swelling, Testicular Tenderness, Uretheral Discharge, Testicular Vertical Lie, Bladder Distension - Extremities Exam Extremities Exam: Full ROM - Back Exam Back Exam: muscle spasm - Neurological Exam Neurological Exam: Alert, Awake, Oriented x3 - Psychiatric Exam Psychiatric exam: Normal Affect, Normal Mood - Skin Skin Exam: Dry, Intact, Normal Color, Warm Assessment and Plan - Assessment and Plan (Free Text) Assessment: ITS Impressions Chest X-Ray 10/23/18 16:52 IMPRESSION: No active disease. Abdomen/Pelvis CT 10/23/18 17:12 IMPRESSION: Large paraumbilical ventral hernia to the left of the umbilicus contains short segment of the large bowel loop without definite evidence of bowel obstruction or incarceration. Small right paraumbilical ventral hernia contains short segment of small bowel loop without evidence of bowel obstruction. Additional findings as discussed above. Colonic diverticulosis without evidence of diverticulitis. [id number] constipation Lumbar Spine MRI 10/25/18 08:00 IMPRESSION: New marrow edema in the T11 vertebral body with a mild degree of compression. See comments Assessment: 83 y o female with PMhx Type II DM, HLD, COPD on home O2, pulm HTN, urinary incontinence, who presents to the ED with c/o worsening R-sided low back pain x 5 days. Admitted for intractable lower back pain. Plan: Intractable back pain- Likely r/t T10, T11 compression fracture IR (Dr. Blackburn) consulted as per pt and family's request,for kyphoplasty of T10,T11 Tuesday MRI Lumbar resulted mild degree of compression in T11 with marrow edema,severe L4 compression fx, as prior. Percocet 1 tab q 6 h prn Flexeril 5 mg PO q 8 h prn Lidoderm patch daily NS @ 75 cc/hr Chronic COPD 2L O2 NC continue Duonebs q6h prn continue home med Brovana continue home med Prednisone 2.5 mg daily Constipation Miralax Daily, Encourage fluid intake and OOB, ambulation as tolerated. PT rec.TCU after kyphoplasty Will continue to monitor clinical status and follow closely.
[2018-10-26 13:14] LABS: INR 1.03; PARTIAL THROMBOPLASTIN TIME 27.3 Seconds (26.9-38.3); PROTHROMBIN TIME 11.6 SECONDS (9.4-12.5)
[2018-10-26] MEDS: cefTRIAXone 1 gm 1 GM/100 ML BAG IVPB SCH (14:24)
[2018-10-26] MEDS: Sodium Chloride 0.9% 1,000 ML IV SCH (17:08)
--- NOTE | 2018-10-26 20:51 | CP.PCM.PN ---
<Galileo Agosto - Last Filed: 10/26/18 20:45> Subjective - Date & Time of Evaluation Date of Evaluation: 10/26/18 Time of Evaluation: 12:00 - Subjective Subjective: INTERNAL MEDICINE PROGRESS NOTE FOR DR. DARON Agosto PGY1 Pt seen and examined at bedside this am. No acute nursing events overnight. She continues to report persistent back pain. She has been passing gas. Otherwise denies ROS Objective - Vital Signs/Intake and Output Vital Signs (last 24 hours): Temp Pulse Resp BP Pulse Ox 98.4 F 81 19 129/67 100 10/26/18 17:39 10/26/18 17:39 10/26/18 17:39 10/26/18 17:39 10/26/18 17:39 Intake and Output: 10/26/18 10/27/18 18:59 06:59 Intake Total 120 420 Output Total 550 Balance 120 -130 - Medications Medications: Current Medications Arformoterol Tartrate (Brovana) 15 mcg IH [id number] [facility] Last Admin: 10/26/18 19:54 Dose: 15 mcg Atorvastatin Calcium (Lipitor) 10 mg PO HS [facility] Last Admin: 10/25/18 21:20 Dose: 10 mg Cyclobenzaprine HCl (Flexeril) 5 mg PO Q8H PRN PRN Reason: Pain, moderate (4-7) Last Admin: 10/26/18 19:57 Dose: 5 mg Docusate Sodium (Colace) 100 mg PO Q8 [facility] Last Admin: 10/26/18 14:23 Dose: Not Given Ferrous Sulfate (Feosol) 324 mg PO DAILY [facility] Last Admin: 10/26/18 09:05 Dose: 324 mg Home Med (Home Med) 1 unit PO DAILY [facility] Last Admin: 10/26/18 09:06 Dose: 1 unit Sodium Chloride (Sodium Chloride 0.9%) 1,000 mls @ 75 mls/hr IV .[id number] [facility] Last Admin: 10/26/18 17:08 Dose: 75 mls/hr Ceftriaxone Sodium (Rocephin 1 Gram Ivpb) 1 gm in 100 mls @ 100 mls/hr IVPB JOSEFA LY [facility]; Protocol Last Admin: 10/26/18 14:24 Dose: 100 mls/hr Lidocaine (Lidoderm) 1 ea TD DAILY [facility] Last Admin: 10/26/18 09:06 Dose: 1 ea Meclizine HCl (Antivert) 12.5 mg PO BID [facility] Last Admin: 10/26/18 17:08 Dose: 12.5 mg Oxycodone/Acetaminophen (Percocet 5/325 Mg Tab) 1 tab PO Q6H PRN PRN Reason: Pain, severe (8-10) Stop: 10/26/18 21:31 Last Admin: 10/26/18 19:56 Dose: 1 tab Polyethylene Glycol (Miralax) 17 gm PO DAILY [facility] Last Admin: 10/26/18 09:06 Dose: 17 gm Prednisone (Prednisone Tab) 2.5 mg PO DAILY [facility] Last Admin: 10/26/18 09:07 Dose: 2.5 mg Sildenafil Citrate (Revatio) 20 mg PO Q12 [facility] Last Admin: 10/26/18 09:08 Dose: 20 mg - Labs Labs: 10/26/18 06:20 10/26/18 06:20 PT 11.6 SECONDS (9.4-12.5) 10/26/18 12:50 INR 1.03 10/26/18 12:50 APTT 27.3 Seconds (26.9-38.3) 10/26/18 12:50 - Additional Findings Additional findings: - Additional Findings Additional findings: - Additional Findings Additional findings: - Constitutional Appears: Non-toxic, No Acute Distress - Head Exam Head Exam: ATRAUMATIC, NORMOCEPHALIC - Eye Exam Eye Exam: EOMI, Normal appearance, PERRL - ENT Exam ENT Exam: Mucous Membranes Moist - Respiratory Exam Respiratory Exam: Clear to Auscultation Bilateral, NORMAL BREATHING PATTERN. absent: Rales, Rhonchi, Wheezes - Cardiovascular Exam Cardiovascular Exam: REGULAR RHYTHM, +S1, +S2. absent: Gallop, Rubs, Systolic Murmur - GI/Abdominal Exam GI & Abdominal Exam: Normal Bowel Sounds, Soft, Tenderness Additional comments: Mild tenderness with deep palpation of LLQ in area of abdominal hernia - Extremities Exam Extremities exam: Positive for: full ROM, normal capillary refill, normal inspection, pedal pulses present. Negative for: calf tenderness, pedal edema - Back Exam Back exam: NORMAL INSPECTION, paraspinal tenderness Additional comments: Tenderness to palpation in L4-L5 area of lumbar spine on R side, no associated sciatic symptoms elicited with palpation - Neurological Exam Neurological exam: Alert, CN II-XII Intact, Oriented x3, Reflexes Normal - Skin Skin Exam: Dry, Intact, Normal Color, Warm Assessment and Plan - Assessment and Plan (Free Text) Assessment: 83 y o female with PMhx Type II DM, HLD, COPD on home O2, pulm HTN, urinary incontinence, who presents to the ED with c/o worsening R-sided low back pain x 5 days. Admitted for intractable back pain. Plan: Intractable back pain Lumbar MRI: New marrow edema in the T11 vertebral body w/ a mild degree of compression.Severe compression fx of L4. Scheduled for kyphoplasty at T10/T11. NPO past midnight Dr. Hurtado consulted for pain management Percocet 1 tab q 6 h prn Flexeril 5 mg PO q 8 h prn Lidoderm patch daily NS @ 75 cc/hr Chronic COPD 2L O2 NC continue home med Brovana continue home med Prednisone 2.5 mg daily Pulm HTN continue home med Sildenafil Opioid-induced Constipation continue home med Colace tid Miralax daily added glycerin suppository as needed HLD continue Lipitor daily Iron-deficiency Anemia continue home Feosol daily DVT/GI: SCD Case seen, examined and discusse <Lexy Guardado - Last Filed: 10/27/18 18:12> Objective - Vital Signs/Intake and Output Vital Signs (last 24 hours): Temp Pulse Resp BP Pulse Ox 98.1 F 86 20 131/84 100 10/27/18 16:46 10/27/18 16:46 10/27/18 16:46 10/27/18 16:46 10/27/18 16:46 Intake and Output: 10/27/18 10/27/18 06:59 18:59 Intake Total 420 Output Total 550 Balance -130 - Medications Medications: Current Medications Arformoterol Tartrate (Brovana) 15 mcg IH [id number] [facility] Last Admin: 10/27/18 07:40 Dose: 15 mcg Aspirin (Aspirin Chewable) 81 mg PO DAILY [facility] Last Admin: 10/27/18 14:40 Dose: 81 mg Atorvastatin Calcium (Lipitor) 10 mg PO HS [facility] Last Admin: 10/26/18 21:18 Dose: 10 mg Cyclobenzaprine HCl (Flexeril) 5 mg PO Q8H PRN PRN Reason: Pain, moderate (4-7) Last Admin: 10/26/18 19:57 Dose: 5 mg Docusate Sodium (Colace) 100 mg PO Q8 [facility] Last Admin: 10/27/18 14:40 Dose: 100 mg Enoxaparin Sodium (Lovenox) 40 mg SC DAILY [facility]; Protocol Ferrous Sulfate (Feosol) 324 mg PO DAILY [facility] Last Admin: 10/27/18 10:43 Dose: Not Given Glycerin (Glycerin Adult Suppository) 1 sup RC Q8H PRN PRN Reason: Constipation Home Med (Home Med) 1 unit PO DAILY [facility] Last Admin: 10/27/18 10:43 Dose: Not Given Sodium Chloride (Sodium Chloride 0.9%) 1,000 mls @ 75 mls/hr IV .[id number] [facility] Last Admin: 10/27/18 17:57 Dose: 75 mls/hr Ceftriaxone Sodium (Rocephin 1 Gram Ivpb) 1 gm in 100 mls @ 100 mls/hr IVPB DAILY [facility]; Protocol Last Admin: 10/26/18 14:24 Dose: 100 mls/hr Sodium Chloride (Sodium Chloride 0.45%) 1,000 mls @ 80 mls/hr IV .[id number] [facility] Stop: 10/27/18 20:00 Lidocaine (Lidoderm) 1 ea TD DAILY [facility] Last Admin: 10/27/18 10:43 Dose: Not Given Meclizine HCl (Antivert) 12.5 mg PO BID PRN PRN Reason: Dizziness Ondansetron HCl (Zofran Inj) 4 mg IVP Q6H PRN PRN Reason: Nausea/Vomiting Oxycodone/Acetaminophen (Percocet 5/325 Mg Tab) 1 tab PO Q6H PRN PRN Reason: Pain, severe (8-10) Stop: 10/30/18 13:05 Polyethylene Glycol (Miralax) 17 gm PO DAILY [facility] Last Admin: 10/27/18 10:43 Dose: Not Given Prednisone (Prednisone Tab) 2.5 mg PO DAILY [facility] Last Admin: 10/27/18 10:43 Dose: Not Given Sildenafil Citrate (Revatio) 20 mg PO Q12 [facility] Last Admin: 10/27/18 10:44 Dose: Not Given - Labs Labs: 10/27/18 06:30 10/27/18 06:30 PT 11.6 SECONDS (9.4-12.5) 10/26/18 12:50 INR 1.03 10/26/18 12:50 APTT 27.3 Seconds (26.9-38.3) 10/26/18 12:50 Attending/Attestation - Attestation I have personally seen and examined this patient.: Yes I have fully participated in the care of the patient.: Yes I have reviewed all pertinent clinical information, including history, physical exam and plan: Yes Notes (Text): 10/27/18 18:12 attending note; Patient seen and examined with resident. Patient is alert and awake. Still complaining of significant back pain/muscle spasm. Denies any fevers, chills. Complaining of constipation. Denies any abdominal pain. denies any urinary symptoms. Complaining of constipation. Patient is a 83-year-old female with PMhx Type II DM, HLD, COPD on home O2, pulm HTN, multiple vertebral fractures, history of kyphoplasty, severe osteoporosis , urinary incontinence is admitted for worsening R-sided low back pain x 5 days. Admitted for intractable back pain. 1. Intractable back pain; patient with severe osteoporosis and multiple fractures in the past. continue Percocet. IV morphine when necessary ordered for severe pain. seen by Dr. Harrison Blackubrn for possible kyphoplasty. MRI of the spine showed new bone marrow edema at T11. 2. Ventral hernia; abdominal ultrasound showed paraumbilical ventral hernia. No significant strangulation noted. Patient refused surgery in the past. continue abdominal binder. 3.chronic Constipation; secondary to opiates. Continue by mouth MiraLAX and colace. glycerin suppository as needed. 4.Escherichia coli UTI; on IV Rocephin. 5.Chronic COPD; currently on oxygen 2 L nasal cannula. continue Duonebs q6h prn continue home med Brovana continue home med Prednisone 2.5 mg daily 6.continue home med Sildenafil. 7.GI prophylaxis with for lacks is with dexilant. plan for kyphoplasty tomorrow. upon discharge the patient will follow-up with PMD Dr. Valentine.
[2018-10-27 06:43] LABS: BASO # 0.02 K/mm3 (0.0-2.0); BASO % 0.4 % (0.0-3.0); EOS # 0.2 (0.0-0.7); EOS % 4.7 % (1.5-5.0); HEMOGLOBIN 10.7 g/dL (12.0-16.0); LYMPH # 1.1 (1.2-3.4); LYMPH % 24.4 % (22.0-35.0); MEAN CELL VOLUME 97.5 fl (80.0-105.0); MEAN CORPUSCULAR HEMOGLOBIN 30.3 pg (25.0-35.0); MEAN CORPUSCULAR HGB CONC 31.1 g/dl (31.0-37.0); MEAN PLATELET VOLUME 10.9 fl (7.0-11.0); MONO # 0.3 (0.1-0.6); MONO % 6.9 % (1.0-6.0); RBC 3.53 10^6/uL (3.5-6.1); RED CELL DISTRIBUTION WIDTH 13.2 % (11.5-14.5); WHITE BLOOD COUNT 4.5 10^3/uL (4.5-11.0)
[2018-10-27 07:28] LABS: ALB/GLOB RATIO 1.3 (1.1-1.8); ALBUMIN 3.3 g/dL (3.0-4.8); ALT/SGPT 11 U/L (7-56); AST/SGOT 18 U/L (14-36); BLOOD UREA NITROGEN 18 mg/dL (7-21); CALCIUM 9.1 mg/dL (8.4-10.5); GFR NON-AFRICAN AMERICAN > 60
[2018-10-27] MEDS: Arformoterol 15 mcg/2 ml Inh Sol IH SCH ×2 (07:40→19:25)
[2018-10-27] MEDS ORDERED: Lidocaine 2% Inj (20ml) ONE (10:10)
[2018-10-27] MEDS ORDERED: Iodixanol 320 MG/ML 100 ML BOTTLE IV ONE (10:11)
[2018-10-27] MEDS: [UNRECOGNIZED DRUG - OTHER] PO SCH (10:43)
[2018-10-27] MEDS: DEXLANSOPRAZOLE PO SCH (10:43)
[2018-10-27] MEDS: Lidocaine 5% Patch TD SCH (10:43)
[2018-10-27] MEDS: POLYETHYLENE GLYCOL 3350 17 GM/Dose PACKET PO SCH (10:43)
[2018-10-27] MEDS: Sildenafil 20 MG TAB PO SCH ×2 (10:44→21:27)
[2018-10-27] MEDS ORDERED: Midazolam 2 MG/2 ML VIAL ONE (10:48)
[2018-10-27] MEDS ORDERED: Sodium Chloride 0.45% 1,000 ML IV SCH (11:45)
[2018-10-27] MEDS ORDERED: Morphine 2 mg/ml ISec IVP ONE (12:29)
--- NOTE | 2018-10-27 12:33 | VASCULAR ---
PROCEDURE: 1. T10 kyphoplasty and biopsy 2. T11 kyphoplasty HISTORY: Severe osteoporosis. Spontaneous acute T10 and T11 compression fractures with refractory back pain. Previous T12 kyphoplasty. PHYSICIAN(S): Harrison Blackburn MD. TECHNIQUE: he relative risks and indications of the procedure were explained to the patient and informed written consent obtained. The patient was placed prone on the arteriography table and the thoracolumbar spine prepped and draped in the usual sterile fashion. Conscious sedation and monitoring were provided throughout the procedure by a nurse. The T10 vertebral body was carefully localized with fluoroscopy. The skin and soft tissues were anesthetized with 1% Xylocaine. Under direct fluoroscopic guidance, bilateral transpedicular bone needles were placed into the posterior aspect of the T10 vertebral body. Through the right needle, a biopsy of the [id number] body was performed. The specimen was sent to histology. Next bilateral 10 mm bone balloons were placed in the superior and anterior portion of the T10 vertebral body. They were inflated to approximately 3 cc apiece with dilute contrast. The balloons were removed and 4.5 cc of barium-impregnated PMMA cement instilled into the T10 vertebral body. No extravasation was seen. Next the T11 vertebral body was addressed. The skin and soft tissues were anesthetized 1 percent xylocaine. A single transpedicular bone needle was placed into the posterior aspect of the T11 vertebral body. A 15 mm bone balloon was inflated in the mid aspect of the T11 vertebral body. The balloon was removed and 6 cc of barium-impregnated PMMA cement placed in the T11 vertebral body. No extravasation was seen. The patient tolerated the procedure well. IMPRESSION: 1. Fluoroscopically guided T10 kyphoplasty and biopsy 2. Fluoroscopically guided T11 kyphoplasty
[2018-10-27] MEDS ORDERED: Morphine 4 mg/ml ISec ONE (12:35)
[2018-10-27] MEDS ORDERED: Oxycodone/Acetaminophen 5/325 mg Tab PO PRN (13:04)
[2018-10-27] MEDS ORDERED: Oxycodone/Acetaminophen 5/325 mg Tab PO STA (14:22)
[2018-10-27] MEDS: Sodium Chloride 0.9% 1,000 ML IV SCH (17:57)
--- NOTE | 2018-10-27 20:19 | CP.PCM.PN ---
<Galileo Agosto - Last Filed: 10/27/18 20:15> Subjective - Date & Time of Evaluation Date of Evaluation: 10/27/18 Time of Evaluation: 12:00 - Subjective Subjective: INTERNAL MEDICINE PROGRESS NOTE FOR DR. DARON Agosto PGY1 Pt seen and examined at bedside. No acute events overnight. Pt to undergo kyphoplasty. Denies 12 point ROS Objective - Vital Signs/Intake and Output Vital Signs (last 24 hours): Temp Pulse Resp BP Pulse Ox 98.1 F 86 20 131/84 100 10/27/18 16:46 10/27/18 16:46 10/27/18 16:46 10/27/18 16:46 10/27/18 16:46 - Medications Medications: Current Medications Arformoterol Tartrate (Brovana) 15 mcg IH [id number] [facility] Last Admin: 10/27/18 19:25 Dose: 15 mcg Aspirin (Aspirin Chewable) 81 mg PO DAILY [facility] Last Admin: 10/27/18 14:40 Dose: 81 mg Atorvastatin Calcium (Lipitor) 10 mg PO HS [facility] Last Admin: 10/26/18 21:18 Dose: 10 mg Cyclobenzaprine HCl (Flexeril) 5 mg PO Q8H PRN PRN Reason: Pain, moderate (4-7) Last Admin: 10/26/18 19:57 Dose: 5 mg Docusate Sodium (Colace) 100 mg PO Q8 [facility] Last Admin: 10/27/18 14:40 Dose: 100 mg Enoxaparin Sodium (Lovenox) 40 mg SC DAILY [facility]; Protocol Ferrous Sulfate (Feosol) 324 mg PO DAILY [facility] Last Admin: 10/27/18 10:43 Dose: Not Given Glycerin (Glycerin Adult Suppository) 1 sup RC Q8H PRN PRN Reason: Constipation Home Med (Home Med) 1 unit PO DAILY [facility] Last Admin: 10/27/18 10:43 Dose: Not Given Sodium Chloride (Sodium Chloride 0.9%) 1,000 mls @ 75 mls/hr IV .[id number] [facility] Last Admin: 10/27/18 17:57 Dose: 75 mls/hr Ceftriaxone Sodium (Rocephin 1 Gram Ivpb) 1 gm in 100 mls @ 100 mls/hr IVPB DAILY [facility]; Protocol Last Admin: 10/26/18 14:24 Dose: 100 mls/hr Lidocaine (Lidoderm) 1 ea TD DAILY [facility] Last Admin: 10/27/18 10:43 Dose: Not Given Meclizine HCl (Antivert) 12.5 mg PO BID PRN PRN Reason: Dizziness Ondansetron HCl (Zofran Inj) 4 mg IVP Q6H PRN PRN Reason: Nausea/Vomiting Oxycodone/Acetaminophen (Percocet 5/325 Mg Tab) 1 tab PO Q6H PRN PRN Reason: Pain, severe (8-10) Stop: 10/30/18 13:05 Polyethylene Glycol (Miralax) 17 gm PO DAILY [facility] Last Admin: 10/27/18 10:43 Dose: Not Given Prednisone (Prednisone Tab) 2.5 mg PO DAILY [facility] Last Admin: 10/27/18 10:43 Dose: Not Given Sildenafil Citrate (Revatio) 20 mg PO Q12 [facility] Last Admin: 10/27/18 10:44 Dose: Not Given - Labs Labs: 10/27/18 06:30 10/27/18 06:30 PT 11.6 SECONDS (9.4-12.5) 10/26/18 12:50 INR 1.03 10/26/18 12:50 APTT 27.3 Seconds (26.9-38.3) 10/26/18 12:50 - Additional Findings Additional findings: - Additional Findings Additional findings: - Additional Findings Additional findings: - Additional Findings Additional findings: - Constitutional Appears: Non-toxic, No Acute Distress - Head Exam Head Exam: ATRAUMATIC, NORMOCEPHALIC - Eye Exam Eye Exam: EOMI, Normal appearance, PERRL - ENT Exam ENT Exam: Mucous Membranes Moist - Respiratory Exam Respiratory Exam: Clear to Auscultation Bilateral, NORMAL BREATHING PATTERN. absent: Rales, Rhonchi, Wheezes - Cardiovascular Exam Cardiovascular Exam: REGULAR RHYTHM, +S1, +S2. absent: Gallop, Rubs, Systolic Murmur - GI/Abdominal Exam GI & Abdominal Exam: Normal Bowel Sounds, Soft, Tenderness Additional comments: Mild tenderness with deep palpation of LLQ in area of abdominal hernia - Extremities Exam Extremities exam: Positive for: full ROM, normal capillary refill, normal inspection, pedal pulses present. Negative for: calf tenderness, pedal edema - Back Exam Back exam: NORMAL INSPECTION, paraspinal tenderness Additional comments: Tenderness to palpation in L4-L5 area of lumbar spine on R side, no associated sciatic symptoms elicited with palpation - Neurological Exam Neurological exam: Alert, CN II-XII Intact, Oriented x3, Reflexes Normal - Skin Skin Exam: Dry, Intact, Normal Color, Warm Assessment and Plan - Assessment and Plan (Free Text) Assessment: 83 y o female with PMhx Type II DM, HLD, COPD on home O2, pulm HTN, urinary incontinence, who presents to the ED with c/o worsening R-sided low back pain x 5 days. Admitted for intractable back pain. Plan: Intractable back pain Lumbar MRI: New marrow edema in the T11 vertebral body w/ a mild degree of compression.Severe compression fx of L4. Scheduled for kyphoplasty at T10/T11. Dr. Hurtado consulted for pain management Percocet 1 tab q 6 h prn Flexeril 5 mg PO q 8 h prn Lidoderm patch daily NS @ 75 cc/hr Chronic COPD 2L O2 NC continue home med Brovana continue home med Prednisone 2.5 mg daily Pulm HTN continue home med Sildenafil Opioid-induced Constipation continue home med Colace tid Miralax daily added glycerin suppository as needed HLD continue Lipitor daily Iron-deficiency Anemia continue home Feosol daily DVT/GI: start LVX postprocedure Case seen, examined and discussed with attending physician, Dr. Daron Agosto PGY1 <Lexy Guardado - Last Filed: 10/28/18 18:26> Objective - Vital Signs/Intake and Output Vital Signs (last 24 hours): Temp Pulse Resp BP Pulse Ox 97.8 F 86 19 103/60 98 10/28/18 18:00 10/28/18 18:00 10/28/18 18:00 10/28/18 18:00 10/28/18 18:00 Intake and Output: 10/28/18 10/28/18 06:59 18:59 Intake Total 860 Output Total 3720 Balance -2860 - Medications Medications: Current Medications Amoxicillin/Clavulanate Potassium (Augmentin 875 Mg-125 Mg Tab) 1 tab PO Q12 [facility]; Protocol Last Admin: 10/28/18 10:43 Dose: 1 tab Arformoterol Tartrate (Brovana) 15 mcg IH [id number] [facility] Last Admin: 10/28/18 08:43 Dose: 15 mcg Aspirin (Aspirin Chewable) 81 mg PO DAILY [facility] Last Admin: 10/28/18 10:00 Dose: 81 mg Atorvastatin Calcium (Lipitor) 10 mg PO HS [facility] Last Admin: 10/27/18 21:27 Dose: 10 mg Cyclobenzaprine HCl (Flexeril) 5 mg PO Q8H PRN PRN Reason: Pain, moderate (4-7) Last Admin: 10/26/18 19:57 Dose: 5 mg Docusate Sodium (Colace) 100 mg PO Q8 [facility] Last Admin: 10/28/18 14:48 Dose: 100 mg Enoxaparin Sodium (Lovenox) 40 mg SC DAILY [facility]; Protocol Last Admin: 10/28/18 10:00 Dose: 40 mg Ferrous Sulfate (Feosol) 324 mg PO DAILY [facility] Last Admin: 10/28/18 10:01 Dose: 324 mg Glycerin (Glycerin Adult Suppository) 1 sup RC Q8H PRN PRN Reason: Constipation Home Med (Home Med) 1 unit PO DAILY [facility] Last Admin: 10/28/18 10:00 Dose: 1 unit Ceftriaxone Sodium (Rocephin 1 Gram Ivpb) 1 gm in 100 mls @ 100 mls/hr IVPB DAILY [facility]; Protocol Last Admin: 10/28/18 10:09 Dose: Not Given Lidocaine (Lidoderm) 1 ea TD DAILY [facility] Last Admin: 10/28/18 10:00 Dose: 1 ea Meclizine HCl (Antivert) 12.5 mg PO BID PRN PRN Reason: Dizziness Ondansetron HCl (Zofran Inj) 4 mg IVP Q6H PRN PRN Reason: Nausea/Vomiting Oxycodone/Acetaminophen (Percocet 5/325 Mg Tab) 1 tab PO Q6H PRN PRN Reason: Pain, severe (8-10) Stop: 10/30/18 13:05 Last Admin: 10/28/18 02:22 Dose: 1 tab Oxycodone/Acetaminophen (Percocet 5/325 Mg Tab) 2 tab PO Q4H PRN PRN Reason: 8-10 Severe Pain Stop: 10/31/18 07:23 Last Admin: 10/28/18 08:55 Dose: 2 tab Polyethylene Glycol (Miralax) 17 gm PO DAILY [facility] Last Admin: 10/28/18 10:00 Dose: 17 gm Prednisone (Prednisone Tab) 2.5 mg PO DAILY [facility] Last Admin: 10/28/18 10:01 Dose: 2.5 mg Sildenafil Citrate (Revatio) 20 mg PO Q12 [facility] Last Admin: 10/28/18 11:10 Dose: Not Given - Labs Labs: 10/28/18 10:30 10/28/18 10:30 PT 11.6 SECONDS (9.4-12.5) 10/26/18 12:50 INR 1.03 10/26/18 12:50 APTT 27.3 Seconds (26.9-38.3) 10/26/18 12:50 Attending/Attestation - Attestation I have personally seen and examined this patient.: Yes I have fully participated in the care of the patient.: Yes I have reviewed all pertinent clinical information, including history, physical exam and plan: Yes Notes (Text): 10/28/18 18:24 attending note; Patient seen and examined with resident. Patient is alert and awake. s/p kyphoplasty. complaining of back pain. Patient's daughters and sons by the bedside. Patient is a 83-year-old female with PMhx Type II DM, HLD, COPD on home O2, pulm HTN, multiple vertebral fractures, history of kyphoplasty, severe osteoporosis , urinary incontinence is admitted for worsening R-sided low back pain x 5 days. Admitted for intractable back pain. 1. Intractable back pain; patient with severe osteoporosis and multiple fractures in the past. status post kyphoplasty. Patient agreed to take 1 Percocet for mild to moderate pain. 2 Percocet for severe pain. Patient refused morphine and IV Toradol. 2. Ventral hernia; abdominal ultrasound showed paraumbilical ventral hernia. Patient refused surgery in the past. continue abdominal binder as needed. 3.chronic Constipation; secondary to opiates. Continue MiraLAX and colace. glycerin suppository as needed. 4.Escherichia coli UTI; on IV Rocephin. 5.Chronic COPD; currently on oxygen 2 L nasal cannula. continue Duonebs q6h prn continue home med Brovana continue home med Prednisone 2.5 mg daily 6.continue home med Sildenafil. 7.GI prophylaxis continue with dexilant. physical therapy evaluation requested postprocedure. upon discharge the patient will follow-up with PMD Dr. Valentine.
[2018-10-27] MEDS: Enoxaparin 40 mg Syringe SC SCH (21:27)
[2018-10-28] MEDS: Arformoterol 15 mcg/2 ml Inh Sol IH SCH ×2 (08:43→22:17)
[2018-10-28] MEDS: Oxycodone/Acetaminophen 5/325 mg Tab PO PRN ×2 (08:55→21:57)
[2018-10-28] MEDS: [UNRECOGNIZED DRUG - OTHER] PO SCH (10:00)
[2018-10-28] MEDS: POLYETHYLENE GLYCOL 3350 17 GM/Dose PACKET PO SCH (10:00)
[2018-10-28] MEDS: Enoxaparin 40 mg Syringe SC SCH (10:00)
[2018-10-28] MEDS: DEXLANSOPRAZOLE PO SCH (10:00)
[2018-10-28] MEDS: Lidocaine 5% Patch TD SCH (10:00)
[2018-10-28] MEDS: cefTRIAXone 1 gm 1 GM/100 ML BAG IVPB SCH (10:09)
[2018-10-28] MEDS: Amoxicillin-Clav 875-125 mg Tab PO SCH ×2 (10:43→21:57)
[2018-10-28 10:47] LABS: BASO # 0.02 K/mm3 (0.0-2.0); BASO % 0.4 % (0.0-3.0); EOS # 0.2 (0.0-0.7); EOS % 4.7 % (1.5-5.0); HEMOGLOBIN 10.9 g/dL (12.0-16.0); LYMPH % 22.5 % (22.0-35.0); MEAN CELL VOLUME 96.9 fl (80.0-105.0); MEAN CORPUSCULAR HEMOGLOBIN 30.9 pg (25.0-35.0); MEAN CORPUSCULAR HGB CONC 31.9 g/dl (31.0-37.0); MEAN PLATELET VOLUME 10.7 fl (7.0-11.0); MONO # 0.3 (0.1-0.6); MONO % 5.8 % (1.0-6.0); RBC 3.53 10^6/uL (3.5-6.1); RED CELL DISTRIBUTION WIDTH 13.2 % (11.5-14.5); WHITE BLOOD COUNT 4.5 10^3/uL (4.5-11.0)
[2018-10-28 11:04] LABS: ALB/GLOB RATIO 1.4 (1.1-1.8); ALBUMIN 3.5 g/dL (3.0-4.8); ALT/SGPT 21 U/L (7-56); AST/SGOT 27 U/L (14-36); BLOOD UREA NITROGEN 17 mg/dL (7-21); CALCIUM 9.7 mg/dL (8.4-10.5); GFR NON-AFRICAN AMERICAN > 60
[2018-10-28] MEDS: Sildenafil 20 MG TAB PO SCH ×2 (11:10→21:57)
--- NOTE | 2018-10-28 22:01 | CP.PCM.PN ---
<Galileo Agosto - Last Filed: 10/28/18 21:56> Subjective - Date & Time of Evaluation Date of Evaluation: 10/28/18 Time of Evaluation: 12:00 - Subjective Subjective: INTERNAL MEDICINE PROGRESS NOTE FOR DR. DARON Agosto PGY1 Pt seen and examined at bedside this am. No acute events overnight. She reports her back pain has been controlled. Otherwise denies ROS Objective - Vital Signs/Intake and Output Vital Signs (last 24 hours): Temp Pulse Resp BP Pulse Ox 97.8 F 86 19 103/60 98 10/28/18 20:48 10/28/18 20:48 10/28/18 20:48 10/28/18 20:48 10/28/18 20:48 - Medications Medications: Current Medications Amoxicillin/Clavulanate Potassium (Augmentin 875 Mg-125 Mg Tab) 1 tab PO Q12 [facility]; Protocol Last Admin: 10/28/18 10:43 Dose: 1 tab Arformoterol Tartrate (Brovana) 15 mcg IH [id number] [facility] Last Admin: 10/28/18 08:43 Dose: 15 mcg Aspirin (Aspirin Chewable) 81 mg PO DAILY [facility] Last Admin: 10/28/18 10:00 Dose: 81 mg Atorvastatin Calcium (Lipitor) 10 mg PO HS [facility] Last Admin: 10/27/18 21:27 Dose: 10 mg Cyclobenzaprine HCl (Flexeril) 5 mg PO Q8H PRN PRN Reason: Pain, moderate (4-7) Last Admin: 10/26/18 19:57 Dose: 5 mg Docusate Sodium (Colace) 100 mg PO Q8 [facility] Last Admin: 10/28/18 14:48 Dose: 100 mg Enoxaparin Sodium (Lovenox) 40 mg SC DAILY [facility]; Protocol Last Admin: 10/28/18 10:00 Dose: 40 mg Ferrous Sulfate (Feosol) 324 mg PO DAILY [facility] Last Admin: 10/28/18 10:01 Dose: 324 mg Glycerin (Glycerin Adult Suppository) 1 sup RC Q8H PRN PRN Reason: Constipation Home Med (Home Med) 1 unit PO DAILY [facility] Last Admin: 10/28/18 10:00 Dose: 1 unit Ceftriaxone Sodium (Rocephin 1 Gram Ivpb) 1 gm in 100 mls @ 100 mls/hr IVPB DAILY [facility]; Protocol Last Admin: 10/28/18 10:09 Dose: Not Given Lidocaine (Lidoderm) 1 ea TD DAILY [facility] Last Admin: 10/28/18 10:00 Dose: 1 ea Meclizine HCl (Antivert) 12.5 mg PO BID PRN PRN Reason: Dizziness Ondansetron HCl (Zofran Inj) 4 mg IVP Q6H PRN PRN Reason: Nausea/Vomiting Oxycodone/Acetaminophen (Percocet 5/325 Mg Tab) 1 tab PO Q6H PRN PRN Reason: Pain, severe (8-10) Stop: 10/30/18 13:05 Last Admin: 10/28/18 02:22 Dose: 1 tab Oxycodone/Acetaminophen (Percocet 5/325 Mg Tab) 2 tab PO Q4H PRN PRN Reason: 8-10 Severe Pain Stop: 10/31/18 07:23 Last Admin: 10/28/18 08:55 Dose: 2 tab Polyethylene Glycol (Miralax) 17 gm PO DAILY [facility] Last Admin: 10/28/18 10:00 Dose: 17 gm Prednisone (Prednisone Tab) 2.5 mg PO DAILY [facility] Last Admin: 10/28/18 10:01 Dose: 2.5 mg Sildenafil Citrate (Revatio) 20 mg PO Q12 [facility] Last Admin: 10/28/18 11:10 Dose: Not Given - Labs Labs: 10/28/18 10:30 10/28/18 10:30 PT 11.6 SECONDS (9.4-12.5) 10/26/18 12:50 INR 1.03 10/26/18 12:50 APTT 27.3 Seconds (26.9-38.3) 10/26/18 12:50 - Additional Findings Additional findings: - Additional Findings Additional findings: - Constitutional Appears: Non-toxic, No Acute Distress - Head Exam Head Exam: ATRAUMATIC, NORMOCEPHALIC - Eye Exam Eye Exam: EOMI, Normal appearance, PERRL - ENT Exam ENT Exam: Mucous Membranes Moist - Respiratory Exam Respiratory Exam: Clear to Auscultation Bilateral, NORMAL BREATHING PATTERN. absent: Rales, Rhonchi, Wheezes - Cardiovascular Exam Cardiovascular Exam: REGULAR RHYTHM, +S1, +S2. absent: Gallop, Rubs, Systolic Murmur - GI/Abdominal Exam GI & Abdominal Exam: Normal Bowel Sounds, Soft, Tenderness Additional comments: Mild tenderness with deep palpation of LLQ in area of abdominal hernia - Extremities Exam Extremities exam: Positive for: full ROM, normal capillary refill, normal inspection, pedal pulses present. Negative for: calf tenderness, pedal edema - Back Exam Back exam: NORMAL INSPECTION, paraspinal tenderness Additional comments: Tenderness to palpation in L4-L5 area of lumbar spine on R side, no associated sciatic symptoms elicited with palpation - Neurological Exam Neurological exam: Alert, CN II-XII Intact, Oriented x3, Reflexes Normal - Skin Skin Exam: Dry, Intact, Normal Color, Warm Assessment and Plan - Assessment and Plan (Free Text) Assessment: 83 y o female with PMhx Type II DM, HLD, COPD on home O2, pulm HTN, urinary incontinence, who presents to the ED with c/o worsening R-sided low back pain x 5 days. Admitted for intractable back pain. Plan: Urinary Tract Infection Urine culture: E. Coli U/A: +Leuk. Esterase Intractable back pain s/p kyphoplasty @ T10/T11. Dr. Hurtado consulted for pain management Percocet 1 tab q 6 h prn, percocet 2 tab Q4H Flexeril 5 mg PO q 8 h prn Lidoderm patch daily NS @ 75 cc/hr Chronic COPD 2L O2 NC continue home med Brovana continue home med Prednisone 2.5 mg daily Pulm HTN continue home med Sildenafil Opioid-induced Constipation continue home med Colace tid Miralax daily added glycerin suppository as needed HLD continue Lipitor daily Iron-deficiency Anemia continue home Feosol daily DVT/GI: start LVX postprocedure Dispo: PT recommends TCU vs [facility] Case seen, examined and discussed with attending physician, Dr. Daron Agosto PGY1 <Lexy Guardado - Last Filed: 10/29/18 14:11> Objective - Vital Signs/Intake and Output Vital Signs (last 24 hours): Temp Pulse Resp BP Pulse Ox 97.9 F 75 20 123/59 L 97 10/29/18 08:02 10/29/18 08:02 10/29/18 08:02 10/29/18 08:02 10/29/18 08:02 Intake and Output: 10/29/18 10/29/18 06:59 18:59 Intake Total 300 Output Total 100 Balance 200 - Medications Medications: Current Medications Amoxicillin/Clavulanate Potassium (Augmentin 875 Mg-125 Mg Tab) 1 tab PO Q12 [facility]; Protocol Last Admin: 10/29/18 09:12 Dose: 1 tab Arformoterol Tartrate (Brovana) 15 mcg IH [id number] [facility] Last Admin: 10/29/18 07:59 Dose: 15 mcg Aspirin (Aspirin Chewable) 81 mg PO DAILY [facility] Last Admin: 10/29/18 09:12 Dose: 81 mg Atorvastatin Calcium (Lipitor) 10 mg PO HS [facility] Last Admin: 10/28/18 21:57 Dose: 10 mg Cyclobenzaprine HCl (Flexeril) 5 mg PO Q8H PRN PRN Reason: Pain, moderate (4-7) Last Admin: 10/26/18 19:57 Dose: 5 mg Docusate Sodium (Colace) 100 mg PO Q8 [facility] Last Admin: 10/29/18 13:21 Dose: Not Given Enoxaparin Sodium (Lovenox) 40 mg SC DAILY [facility]; Protocol Last Admin: 10/29/18 09:11 Dose: 40 mg Ferrous Sulfate (Feosol) 324 mg PO DAILY [facility] Last Admin: 10/29/18 09:11 Dose: 324 mg Glycerin (Glycerin Adult Suppository) 1 sup RC Q8H PRN PRN Reason: Constipation Home Med (Home Med) 1 unit PO DAILY [facility] Last Admin: 10/29/18 09:12 Dose: 1 unit Ceftriaxone Sodium (Rocephin 1 Gram Ivpb) 1 gm in 100 mls @ 100 mls/hr IVPB DAILY [facility]; Protocol Last Admin: 10/29/18 12:16 Dose: 100 mls/hr Lidocaine (Lidoderm) 1 ea TD DAILY [facility] Last Admin: 10/29/18 09:11 Dose: 1 ea Meclizine HCl (Antivert) 12.5 mg PO BID PRN PRN Reason: Dizziness Ondansetron HCl (Zofran Inj) 4 mg IVP Q6H PRN PRN Reason: Nausea/Vomiting Oxycodone/Acetaminophen (Percocet 5/325 Mg Tab) 1 tab PO Q6H PRN PRN Reason: Pain, severe (8-10) Stop: 10/30/18 13:05 Last Admin: 10/28/18 02:22 Dose: 1 tab Oxycodone/Acetaminophen (Percocet 5/325 Mg Tab) 2 tab PO Q4H PRN PRN Reason: 8-10 Severe Pain Stop: 10/31/18 07:23 Last Admin: 10/29/18 09:11 Dose: 2 tab Polyethylene Glycol (Miralax) 17 gm PO DAILY [facility] Last Admin: 10/29/18 09:11 Dose: 17 gm Prednisone (Prednisone Tab) 2.5 mg PO DAILY [facility] Last Admin: 10/29/18 09:12 Dose: 2.5 mg Sildenafil Citrate (Revatio) 20 mg PO Q12 [facility] Last Admin: 10/29/18 09:12 Dose: 20 mg - Labs Labs: 10/29/18 08:50 10/29/18 08:50 PT 11.6 SECONDS (9.4-12.5) 10/26/18 12:50 INR 1.03 10/26/18 12:50 APTT 27.3 Seconds (26.9-38.3) 10/26/18 12:50 Attending/Attestation - Attestation I have personally seen and examined this patient.: Yes I have fully participated in the care of the patient.: Yes I have reviewed all pertinent clinical information, including history, physical exam and plan: Yes Notes (Text): attending note; Patient seen and examined with resident. Patient is alert and awake. s/p kyphoplasty on tuesday. still complaining of back pain. Refused to take IV morphine and IV Toradol. Taking only by mouth Percocet. Patient is a 83-year-old female with PMhx Type II DM, HLD, COPD on home O2, pulm HTN, multiple vertebral fractures, history of kyphoplasty, severe osteoporosis , urinary incontinence is admitted for worsening R-sided low back pain x 5 days. Admitted for intractable back pain. 1. Intractable back pain; patient with severe osteoporosis and multiple fractures in the past. status post kyphoplasty of t10 and t11 on 10/27/18. Still complaining of pain. Patient is reluctant to take any IV medications. Patient agreed to take 1 Percocet for mild to moderate pain. 2 Percocet for severe pain. Patient refused morphine and IV Toradol again. 2. Ventral hernia; abdominal ultrasound showed paraumbilical ventral hernia. Patient refused surgery in the past. continue abdominal binder as needed. 3.chronic Constipation; secondary to opiates. Continue MiraLAX and colace. glycerin suppository as needed. 4.Escherichia coli UTI; on Iaugmentin since she lost IV access. agreed to get IV line placed today. 5.Chronic COPD; currently on oxygen 2 L nasal cannula. continue Duonebs q6h prn continue home med Brovana continue home med Prednisone 2.5 mg daily 6. Pulmonary HTN ; oxygen dependent at home .continue home med Sildenafil. 7.GI prophylaxis continue with dexilant. physical therapy evaluation appreciated. TCU recommended. TCU evaluation requested. upon discharge the patient will follow-up with PMD Dr. Valentine. 10/29/18 14:10
--- NOTE | 2018-10-28 23:25 | CARD ---
APPROVED REPORT Date of service: 10/28/2018 EKG Measurement Heart [id number] <Conclusion> Normal sinus rhythm Normal ECG
[2018-10-29] MEDS: Arformoterol 15 mcg/2 ml Inh Sol IH SCH ×2 (07:59→20:09)
[2018-10-29] MEDS: Lidocaine 5% Patch TD SCH (09:11)
[2018-10-29] MEDS: Enoxaparin 40 mg Syringe SC SCH (09:11)
[2018-10-29] MEDS: Oxycodone/Acetaminophen 5/325 mg Tab PO PRN ×2 (09:11→21:23)
[2018-10-29] MEDS: POLYETHYLENE GLYCOL 3350 17 GM/Dose PACKET PO SCH (09:11)
[2018-10-29] MEDS: [UNRECOGNIZED DRUG - OTHER] PO SCH (09:12)
[2018-10-29] MEDS: Sildenafil 20 MG TAB PO SCH ×2 (09:12→21:23)
[2018-10-29] MEDS: Amoxicillin-Clav 875-125 mg Tab PO SCH ×2 (09:12→21:23)
[2018-10-29] MEDS: DEXLANSOPRAZOLE PO SCH (09:12)
[2018-10-29 09:16] LABS: BLOOD UREA NITROGEN 22 mg/dL (7-21); CALCIUM 9.2 mg/dL (8.4-10.5); GFR NON-AFRICAN AMERICAN > 60
[2018-10-29 09:18] LABS: BASO # 0.02 K/mm3 (0.0-2.0); BASO % 0.5 % (0.0-3.0); EOS # 0.1 (0.0-0.7); EOS % 3.4 % (1.5-5.0); HEMOGLOBIN 10.2 g/dL (12.0-16.0); LYMPH # 1.1 (1.2-3.4); LYMPH % 26.8 % (22.0-35.0); MEAN CELL VOLUME 96.6 fl (80.0-105.0); MEAN CORPUSCULAR HEMOGLOBIN 31.1 pg (25.0-35.0); MEAN CORPUSCULAR HGB CONC 32.2 g/dl (31.0-37.0); MEAN PLATELET VOLUME 11.3 fl (7.0-11.0); MONO # 0.3 (0.1-0.6); MONO % 7.6 % (1.0-6.0); RBC 3.28 10^6/uL (3.5-6.1); RED CELL DISTRIBUTION WIDTH 13.1 % (11.5-14.5); WHITE BLOOD COUNT 4.1 10^3/uL (4.5-11.0)
[2018-10-29] MEDS: cefTRIAXone 1 gm 1 GM/100 ML BAG IVPB SCH (12:16)
--- NOTE | 2018-10-29 14:34 | CP.PCM.PN ---
<Galileo Agosto - Last Filed: 10/29/18 14:19> Subjective - Date & Time of Evaluation Date of Evaluation: 10/29/18 Time of Evaluation: 12:00 - Subjective Subjective: INTERNAL MEDICINE PROGRESS NOTE FOR DR. DARON Agosto PGY1 Pt seen and examined at bedside this am. No acute events overnight. Pt reports continued back pain thats alleviated with 2 tabs percocet Objective - Vital Signs/Intake and Output Vital Signs (last 24 hours): Temp Pulse Resp BP Pulse Ox 97.9 F 75 20 123/59 L 97 10/29/18 08:02 10/29/18 08:02 10/29/18 08:02 10/29/18 08:02 10/29/18 08:02 Intake and Output: 10/29/18 10/29/18 06:59 18:59 Intake Total 300 Output Total 100 Balance 200 - Medications Medications: Current Medications Amoxicillin/Clavulanate Potassium (Augmentin 875 Mg-125 Mg Tab) 1 tab PO Q12 [facility]; Protocol Last Admin: 10/29/18 09:12 Dose: 1 tab Arformoterol Tartrate (Brovana) 15 mcg IH [id number] [facility] Last Admin: 10/29/18 07:59 Dose: 15 mcg Aspirin (Aspirin Chewable) 81 mg PO DAILY [facility] Last Admin: 10/29/18 09:12 Dose: 81 mg Atorvastatin Calcium (Lipitor) 10 mg PO HS [facility] Last Admin: 10/28/18 21:57 Dose: 10 mg Cyclobenzaprine HCl (Flexeril) 5 mg PO Q8H PRN PRN Reason: Pain, moderate (4-7) Last Admin: 10/26/18 19:57 Dose: 5 mg Docusate Sodium (Colace) 100 mg PO Q8 [facility] Last Admin: 10/29/18 13:21 Dose: Not Given Enoxaparin Sodium (Lovenox) 40 mg SC DAILY [facility]; Protocol Last Admin: 10/29/18 09:11 Dose: 40 mg Ferrous Sulfate (Feosol) 324 mg PO DAILY [facility] Last Admin: 10/29/18 09:11 Dose: 324 mg Glycerin (Glycerin Adult Suppository) 1 sup RC Q8H PRN PRN Reason: Constipation Home Med (Home Med) 1 unit PO DAILY [facility] Last Admin: 10/29/18 09:12 Dose: 1 unit Ceftriaxone Sodium (Rocephin 1 Gram Ivpb) 1 gm in 100 mls @ 100 mls/hr IVPB DAILY [facility]; Protocol Last Admin: 10/29/18 12:16 Dose: 100 mls/hr Lidocaine (Lidoderm) 1 ea TD DAILY [facility] Last Admin: 10/29/18 09:11 Dose: 1 ea Meclizine HCl (Antivert) 12.5 mg PO BID PRN PRN Reason: Dizziness Ondansetron HCl (Zofran Inj) 4 mg IVP Q6H PRN PRN Reason: Nausea/Vomiting Oxycodone/Acetaminophen (Percocet 5/325 Mg Tab) 1 tab PO Q6H PRN PRN Reason: Pain, severe (8-10) Stop: 10/30/18 13:05 Last Admin: 10/28/18 02:22 Dose: 1 tab Oxycodone/Acetaminophen (Percocet 5/325 Mg Tab) 2 tab PO Q4H PRN PRN Reason: 8-10 Severe Pain Stop: 10/31/18 07:23 Last Admin: 10/29/18 09:11 Dose: 2 tab Polyethylene Glycol (Miralax) 17 gm PO DAILY [facility] Last Admin: 10/29/18 09:11 Dose: 17 gm Prednisone (Prednisone Tab) 2.5 mg PO DAILY [facility] Last Admin: 10/29/18 09:12 Dose: 2.5 mg Sildenafil Citrate (Revatio) 20 mg PO Q12 [facility] Last Admin: 10/29/18 09:12 Dose: 20 mg - Labs Labs: 10/29/18 08:50 10/29/18 08:50 PT 11.6 SECONDS (9.4-12.5) 10/26/18 12:50 INR 1.03 10/26/18 12:50 APTT 27.3 Seconds (26.9-38.3) 10/26/18 12:50 - Constitutional Appears: Non-toxic, No Acute Distress - Head Exam Head Exam: ATRAUMATIC, NORMOCEPHALIC - Eye Exam Eye Exam: EOMI, Normal appearance, PERRL - ENT Exam ENT Exam: Mucous Membranes Moist - Respiratory Exam Respiratory Exam: Clear to Auscultation Bilateral, NORMAL BREATHING PATTERN. absent: Rales, Rhonchi, Wheezes - Cardiovascular Exam Cardiovascular Exam: REGULAR RHYTHM, +S1, +S2. absent: Gallop, Rubs, Systolic Murmur - GI/Abdominal Exam GI & Abdominal Exam: Normal Bowel Sounds, Soft, Tenderness Additional comments: Mild tenderness with deep palpation of LLQ in area of abdominal hernia - Extremities Exam Extremities exam: Positive for: full ROM, normal capillary refill, normal inspection, pedal pulses present. Negative for: calf tenderness, pedal edema - Back Exam Back exam: NORMAL INSPECTION, paraspinal tenderness Additional comments: Tenderness to palpation in L4-L5 area of lumbar spine on R side, no associated sciatic symptoms elicited with palpation - Neurological Exam Neurological exam: Alert, CN II-XII Intact, Oriented x3, Reflexes Normal - Skin Skin Exam: Dry, Intact, Normal Color, Warm Assessment and Plan - Assessment and Plan (Free Text) Assessment: 83 y o female with PMhx Type II DM, HLD, COPD on home O2, pulm HTN, urinary incontinence, who presents to the ED with c/o worsening R-sided low back pain x 5 days. Admitted for intractable back pain. Plan: Intractable back pain s/p kyphoplasty @ T10/T11. Dr. Hurtado consulted for pain management Pt refusing morphine/toradol Percocet 1 tab q 6 h prn, percocet 2 tab Q4H Flexeril 5 mg PO q 8 h prn Lidoderm patch daily UTI urine culture growing e. coli Pt lost IV access, d/c rocephin continue augmentin Chronic COPD on home O2 2L O2 NC continue home med Brovana continue home med Prednisone 2.5 mg daily Pulm HTN continue home med Sildenafil Opioid-induced Constipation continue home med Colace tid Miralax daily added glycerin suppository as needed kayexalate today to correct hyperkalemia and constipation HLD continue Lipitor daily Iron-deficiency Anemia continue home Feosol daily Umbilical hernia Pt refusing surgery Pt has abdominal binder DVT/GI: LVX Dispo: PT recommends TCU vs [facility] Case seen, examined and discussed with attending physician, Dr. Daron Agosto PGY1 <Lexy Guardado - Last Filed: 10/29/18 14:45> Objective - Vital Signs/Intake and Output Vital Signs (last 24 hours): Temp Pulse Resp BP Pulse Ox 97.9 F 75 20 123/59 L 97 10/29/18 08:02 10/29/18 08:02 10/29/18 08:02 10/29/18 08:02 10/29/18 08:02 Intake and Output: 10/29/18 10/29/18 06:59 18:59 Intake Total 300 Output Total 100 Balance 200 - Medications Medications: Current Medications Amoxicillin/Clavulanate Potassium (Augmentin 875 Mg-125 Mg Tab) 1 tab PO Q12 [facility]; Protocol Last Admin: 10/29/18 09:12 Dose: 1 tab Arformoterol Tartrate (Brovana) 15 mcg IH [id number] [facility] Last Admin: 10/29/18 07:59 Dose: 15 mcg Aspirin (Aspirin Chewable) 81 mg PO DAILY [facility] Last Admin: 10/29/18 09:12 Dose: 81 mg Atorvastatin Calcium (Lipitor) 10 mg PO HS [facility] Last Admin: 10/28/18 21:57 Dose: 10 mg Cyclobenzaprine HCl (Flexeril) 5 mg PO Q8H PRN PRN Reason: Pain, moderate (4-7) Last Admin: 10/26/18 19:57 Dose: 5 mg Docusate Sodium (Colace) 100 mg PO Q8 [facility] Last Admin: 10/29/18 13:21 Dose: Not Given Enoxaparin Sodium (Lovenox) 40 mg SC DAILY [facility]; Protocol Last Admin: 10/29/18 09:11 Dose: 40 mg Ferrous Sulfate (Feosol) 324 mg PO DAILY [facility] Last Admin: 10/29/18 09:11 Dose: 324 mg Glycerin (Glycerin Adult Suppository) 1 sup RC Q8H PRN PRN Reason: Constipation Home Med (Home Med) 1 unit PO DAILY [facility] Last Admin: 10/29/18 09:12 Dose: 1 unit Lidocaine (Lidoderm) 1 ea TD DAILY [facility] Last Admin: 10/29/18 09:11 Dose: 1 ea Meclizine HCl (Antivert) 12.5 mg PO BID PRN PRN Reason: Dizziness Ondansetron HCl (Zofran Inj) 4 mg IVP Q6H PRN PRN Reason: Nausea/Vomiting Oxycodone/Acetaminophen (Percocet 5/325 Mg Tab) 1 tab PO Q6H PRN PRN Reason: Pain, severe (8-10) Stop: 10/30/18 13:05 Last Admin: 10/28/18 02:22 Dose: 1 tab Oxycodone/Acetaminophen (Percocet 5/325 Mg Tab) 2 tab PO Q4H PRN PRN Reason: 8-10 Severe Pain Stop: 10/31/18 07:23 Last Admin: 10/29/18 09:11 Dose: 2 tab Polyethylene Glycol (Miralax) 17 gm PO DAILY [facility] Last Admin: 10/29/18 09:11 Dose: 17 gm Prednisone (Prednisone Tab) 2.5 mg PO DAILY [facility] Last Admin: 10/29/18 09:12 Dose: 2.5 mg Sildenafil Citrate (Revatio) 20 mg PO Q12 [facility] Last Admin: 10/29/18 09:12 Dose: 20 mg - Labs Labs: 10/29/18 08:50 10/29/18 08:50 PT 11.6 SECONDS (9.4-12.5) 10/26/18 12:50 INR 1.03 10/26/18 12:50 APTT 27.3 Seconds (26.9-38.3) 10/26/18 12:50 Attending/Attestation - Attestation I have personally seen and examined this patient.: Yes I have fully participated in the care of the patient.: Yes I have reviewed all pertinent clinical information, including history, physical exam and plan: Yes Notes (Text): 10/29/18 14:45 attending note; Patient seen and examined with resident. Patient is alert and awake. s/p kyphoplasty on tuesday. still complaining of back pain. Refused to take IV morphine and IV Toradol. Taking only h Percocet. Patient is a 83-year-old female with PMhx Type II DM, HLD, COPD on home O2, pulm HTN, multiple vertebral fractures, history of kyphoplasty, severe osteoporosis , urinary incontinence is admitted for worsening R-sided low back pain x 5 days. Admitted for intractable back pain. 1. Intractable back pain; patient with severe osteoporosis and multiple fractures in the past. status post kyphoplasty of t10 and t11 on 10/27/18. Still complaining of pain. Patient is reluctant to take any IV medications. Patient agreed to take 1 Percocet for mild to moderate pain. 2 Percocet for severe pain. Patient refused morphine and IV Toradol again. 2. Ventral hernia; abdominal ultrasound showed paraumbilical ventral hernia. Patient refused surgery in the past. continue abdominal binder as needed. 3.chronic Constipation; secondary to opiates. Continue MiraLAX and colace. glycerin suppository as needed. 4.Escherichia coli UTI; on Iaugmentin since she lost IV access. agreed to get IV line placed today. 5.Chronic COPD; currently on oxygen 2 L nasal cannula. continue Duonebs q6h prn continue home med Brovana continue home med Prednisone 2.5 mg daily 6. Pulmonary HTN ; oxygen dependent at home .continue home med Sildenafil. 7.GI prophylaxis continue with dexilant. physical therapy evaluation appreciated. TCU recommended. TCU evaluation requested. upon discharge the patient will follow-up with PMD Dr. Valentine.
--- NOTE | 2018-10-30 09:18 | CP.PCM.PN ---
<Mark Kramer - Last Filed: 10/30/18 15:38> Subjective - Date & Time of Evaluation Date of Evaluation: 10/30/18 Time of Evaluation: 09:18 - Subjective Subjective: Mark Kramer DO, PGY-1 Hospitalist Progress Note for Dr. Eulogio Reed Patient was seen and examined at bedside this AM. She continues to have pain and states she is not even able to sit up without significant pain. She also states that moving from side to side when doing turns is painful. She states she would be willing to go to TCU for rehab but is adamantly refusing placement at other [facility] facilities. Objective - Vital Signs/Intake and Output Vital Signs (last 24 hours): Temp Pulse Resp BP Pulse Ox 98 F 81 20 124/65 96 10/30/18 08:07 10/30/18 08:07 10/30/18 08:07 10/30/18 08:07 10/30/18 08:07 Intake and Output: 10/30/18 10/30/18 06:59 18:59 Intake Total 1160 Output Total 700 Balance 460 - Medications Medications: Current Medications Amoxicillin/Clavulanate Potassium (Augmentin 875 Mg-125 Mg Tab) 1 tab PO Q12 [facility]; Protocol Last Admin: 10/29/18 21:23 Dose: 1 tab Arformoterol Tartrate (Brovana) 15 mcg IH [id number] [facility] Last Admin: 10/29/18 20:09 Dose: 15 mcg Aspirin (Aspirin Chewable) 81 mg PO DAILY [facility] Last Admin: 10/29/18 09:12 Dose: 81 mg Atorvastatin Calcium (Lipitor) 10 mg PO HS [facility] Last Admin: 10/29/18 21:23 Dose: 10 mg Cyclobenzaprine HCl (Flexeril) 5 mg PO Q8H PRN PRN Reason: Pain, moderate (4-7) Last Admin: 10/26/18 19:57 Dose: 5 mg Docusate Sodium (Colace) 100 mg PO Q8 [facility] Last Admin: 10/30/18 05:58 Dose: 100 mg Enoxaparin Sodium (Lovenox) 40 mg SC DAILY [facility]; Protocol Last Admin: 10/29/18 09:11 Dose: 40 mg Ferrous Sulfate (Feosol) 324 mg PO DAILY [facility] Last Admin: 10/29/18 09:11 Dose: 324 mg Glycerin (Glycerin Adult Suppository) 1 sup RC Q8H PRN PRN Reason: Constipation Home Med (Home Med) 1 unit PO DAILY [facility] Last Admin: 10/29/18 09:12 Dose: 1 unit Lidocaine (Lidoderm) 1 ea TD DAILY [facility] Last Admin: 10/29/18 09:11 Dose: 1 ea Meclizine HCl (Antivert) 12.5 mg PO BID PRN PRN Reason: Dizziness Ondansetron HCl (Zofran Inj) 4 mg IVP Q6H PRN PRN Reason: Nausea/Vomiting Oxycodone/Acetaminophen (Percocet 5/325 Mg Tab) 1 tab PO Q6H PRN PRN Reason: Pain, severe (8-10) Stop: 10/30/18 13:05 Last Admin: 10/28/18 02:22 Dose: 1 tab Oxycodone/Acetaminophen (Percocet 5/325 Mg Tab) 2 tab PO Q4H PRN PRN Reason: 8-10 Severe Pain Stop: 10/31/18 07:23 Last Admin: 10/29/18 21:23 Dose: 2 tab Polyethylene Glycol (Miralax) 17 gm PO DAILY [facility] Last Admin: 10/29/18 09:11 Dose: 17 gm Prednisone (Prednisone Tab) 2.5 mg PO DAILY [facility] Last Admin: 10/29/18 09:12 Dose: 2.5 mg Sildenafil Citrate (Revatio) 20 mg PO Q12 [facility] Last Admin: 10/29/18 21:23 Dose: 20 mg - Labs Labs: 10/29/18 08:50 10/29/18 08:50 PT 11.6 SECONDS (9.4-12.5) 10/26/18 12:50 INR 1.03 10/26/18 12:50 APTT 27.3 Seconds (26.9-38.3) 10/26/18 12:50 - Constitutional Appears: Non-toxic, No Acute Distress - Head Exam Head Exam: ATRAUMATIC, NORMOCEPHALIC - Eye Exam Eye Exam: EOMI, PERRL Pupil Exam: PERRL - ENT Exam ENT Exam: Mucous Membranes Moist - Neck Exam Neck Exam: Full ROM, Normal Inspection - Respiratory Exam Respiratory Exam: Clear to Ausculation Bilateral, NORMAL BREATHING PATTERN. absent: Rales, Rhonchi, Wheezes - Cardiovascular Exam Cardiovascular Exam: REGULAR RHYTHM, RRR, +S1, +S2. absent: Gallop, Rubs, Murmur - GI/Abdominal Exam GI & Abdominal Exam: Soft, Normal Bowel Sounds. absent: Guarding, Tenderness - Extremities Exam Extremities Exam: Normal Inspection. 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 Plan: Intractable back pain Patient is s/p kyphoplasty of T10-T11 POD 3 Continue Percocet 1 tab q 6 h prn, percocet 2 tab Q4H, however patient is refusing morphine and toradol Continue Flexeril 5 mg PO q 8 h prn, lidoderm patch Informed patient that TCU does not accept her insurance Patient adamantly refuses to consider other [facility] facilities Will reach out to family regarding preferences Hyperkalemia Treated with kayexalate Resolved this afternoon Recheck in AM UTI Urine cx positive for GNR Continue augmentin Chronic COPD on home O2 Continue O2 2L NC Continue home brovana, prednisone doses Pulmonary HTN Continue home revatio 20 mg Opioid-induced Constipation Continue bowel regimen with colace 100 mg TID Continue miralax, glycerin suppositories PRN Hx HLD Continue lipitor Iron-deficiency Anemia Continue home feosol B/l Umbilical hernias Patient has refused surgery in the past Continue abdominal binder Continue pain management DVT PPX: Lovenox Full Code HHD Monitor on med/surg Patient seen, examined, and plan discussed with my attending Dr. Eulogio Kramer, Carla. IM Resident PGY-1 Pager: [phone] <Karli Reed R - Last Filed: 10/31/18 07:34> Objective - Vital Signs/Intake and Output Vital Signs (last 24 hours): Temp Pulse Resp BP Pulse Ox 98 F 76 20 90/60 L 95 10/30/18 18:00 10/30/18 18:00 10/30/18 18:00 10/30/18 18:00 10/30/18 18:00 Intake and Output: 10/31/18 10/31/18 06:59 18:59 Intake Total 960 Balance 960 - Medications Medications: Current Medications Amoxicillin/Clavulanate Potassium (Augmentin 875 Mg-125 Mg Tab) 1 tab PO Q12 [facility]; Protocol Last Admin: 10/30/18 21:55 Dose: 1 tab Arformoterol Tartrate (Brovana) 15 mcg IH [id number] [facility] Last Admin: 10/30/18 20:17 Dose: 15 mcg Aspirin (Aspirin Chewable) 81 mg PO DAILY [facility] Last Admin: 10/30/18 09:27 Dose: 81 mg Atorvastatin Calcium (Lipitor) 10 mg PO HS [facility] Last Admin: 10/30/18 21:55 Dose: 10 mg Cyclobenzaprine HCl (Flexeril) 5 mg PO Q8H PRN PRN Reason: Pain, moderate (4-7) Last Admin: 10/26/18 19:57 Dose: 5 mg Docusate Sodium (Colace) 100 mg PO Q8 [facility] Last Admin: 10/31/18 05:56 Dose: 100 mg Enoxaparin Sodium (Lovenox) 40 mg SC DAILY [facility]; Protocol Last Admin: 10/30/18 09:27 Dose: 40 mg Ferrous Sulfate (Feosol) 324 mg PO DAILY [facility] Last Admin: 10/30/18 09:28 Dose: 324 mg Glycerin (Glycerin Adult Suppository) 1 sup RC Q8H PRN PRN Reason: Constipation Home Med (Home Med) 1 unit PO DAILY [facility] Last Admin: 10/30/18 09:27 Dose: 1 unit Lidocaine (Lidoderm) 1 ea TD DAILY [facility] Last Admin: 10/30/18 09:27 Dose: 1 ea Meclizine HCl (Antivert) 12.5 mg PO BID PRN PRN Reason: Dizziness Ondansetron HCl (Zofran Inj) 4 mg IVP Q6H PRN PRN Reason: Nausea/Vomiting Polyethylene Glycol (Miralax) 17 gm PO DAILY [facility] Last Admin: 10/30/18 09:38 Dose: Not Given Prednisone (Prednisone Tab) 2.5 mg PO DAILY [facility] Last Admin: 10/30/18 09:28 Dose: 2.5 mg Sildenafil Citrate (Revatio) 20 mg PO Q12 [facility] Last Admin: 10/30/18 21:55 Dose: 20 mg - Labs Labs: 10/30/18 11:00 10/30/18 11:00 PT 11.6 SECONDS (9.4-12.5) 10/26/18 12:50 INR 1.03 10/26/18 12:50 APTT 27.3 Seconds (26.9-38.3) 10/26/18 12:50 Attending/Attestation - Attestation I have personally seen and examined this patient.: Yes I have fully participated in the care of the patient.: Yes I have reviewed all pertinent clinical information, including history, physical exam and plan: Yes Notes (Text): Patient seen and examined by me with resident at 11:20 AM on 10/30/18. Case including HPI, physical exam, and assessment and plan discussed with resident. Agree with above with following additions/corrections. Patient is an 83-year-old female with past medical history significant for type 2 DM, hyperlipidemia, chronic respiratory failure secondary to COPD on home O2, and urinary incontinence that presented to the emergency room with right sided low back pain. Patient states she is not feeling great. States that she is still having back pain. Patient states she is having a hard time sitting up in bed and turning to her side. Importance of physical therapy discussed with patient. Patient also states she does not want to go to [facility] and wants to go home. Case was discussed with patient's son Syed who stated he would talk to family and come up with a plan. Patient is having bowel movements. She denies chest pain or palpitations. No shortness of breath. No fevers or chills. No headaches or dizziness. No dysuria. No nausea, vomiting, or abdominal pain. Physical exam: General: Awake and alert sitting up in bed in no acute distress HEENT: Normocephalic, atraumatic. Extraocular muscles intact, pupils equal and reactive, no scleral icterus. Oropharynx is pink and moist. No pharyngeal erythema or exudate appreciated. Neck is supple. Cardiovascular: Regular rhythm. Normal S1 and S2. No murmurs, rubs, or gallops appreciated Pulmonary: Normal respiratory effort. No rhonchi, rales, or wheezing appreciated. Auscultated anteriorly as patient is unable to sit up or turn to her side secondary to pain. Gastrointestinal: Soft, nondistended. Nontender. Positive bowel sounds all 4 quadrants. No guarding. Musculoskeletal: Moves all extremities. No calf tenderness. No edema. Central nervous system: AAOx3. Dermatologic: Skin warm and dry. Assessment and plan: Patient is an 83-year-old female with past medical history significant for type 2 DM, hyperlipidemia, chronic respiratory failure secondary to COPD on home O2, and urinary incontinence that presented to the emergency room with right sided low back pain. 1. Intractable back pain. Lumbar spine MRI per radiologist showed new marrow edema in T11 vertebral body with mild degree of compression, severe compression fracture of L4 which was seen previously, chronic compression fracture of L1. Continue Flexeril and Percocet. Continue Lidoderm patch. Patient does not want any IV pain medications. Patient s/p kyphoplasty of T10 and T11 with IR on 10/27/2017. Possible [facility] vs home. PT eval today pending. 2. Chronic respiratory failure secondary to COPD on home O2. Pulmonary hypertension. Continue Brovana. Continue Prednisone. Continue Revatio. Continue O2 via nasal cannula. 3. E.Coli UTI. Treated with IV Rocephin, now on Augmentin. 4. Constipation. Resolved. Patient is having bowel movements. Continue miralax and colace. Continue glycerin suppository as needed. 5. Hyperlipidemia. Continue Lipitor. 6. Anemia. Continue Ferrous sulfate. H&H stable. Continue to monitor. 7. Ventral hernia. No acute issues. Patient to have outpatient follow up. Patient states "I want not surgical intervention." CT abd/pelvis per radiologist showed large paraumbilical ventral hernia to the left of the umbilicus contains short segment of the large bowel loop without definite evidence of bowel obstruction or incarceration; small right paraumbilical ventral hernia contains short segment of small bowel loop without evidence of bowel obstruction; colonic diverticulosis without evidence of diverticulitis; mild to moderate constipation. 8. Hyperkalemia. Resolved. Continue to monitor. 9. DVT prophylaxis. Lovenox 10. Patient is a full code. Case was discussed in detail with the patient regarding current diagnosis and treatment plan. All questions answered.
[2018-10-30] MEDS: POLYETHYLENE GLYCOL 3350 17 GM/Dose PACKET PO SCH ×2 (09:26→09:38)
[2018-10-30] MEDS: Oxycodone/Acetaminophen 5/325 mg Tab PO PRN ×2 (09:27→21:54)
[2018-10-30] MEDS: Lidocaine 5% Patch TD SCH (09:27)
[2018-10-30] MEDS: Enoxaparin 40 mg Syringe SC SCH (09:27)
[2018-10-30] MEDS: [UNRECOGNIZED DRUG - OTHER] PO SCH (09:27)
[2018-10-30] MEDS: DEXLANSOPRAZOLE PO SCH (09:27)
[2018-10-30] MEDS: Sildenafil 20 MG TAB PO SCH ×2 (09:28→21:55)
[2018-10-30] MEDS: Amoxicillin-Clav 875-125 mg Tab PO SCH ×2 (09:28→21:55)
[2018-10-30] MEDS: Arformoterol 15 mcg/2 ml Inh Sol IH SCH ×2 (10:55→20:17)
[2018-10-30 11:16] LABS: BASO # 0.02 K/mm3 (0.0-2.0); BASO % 0.5 % (0.0-3.0); EOS # 0.2 (0.0-0.7); HEMOGLOBIN 9.8 g/dL (12.0-16.0); LYMPH % 21.4 % (22.0-35.0); MEAN CELL VOLUME 97.2 fl (80.0-105.0); MEAN CORPUSCULAR HEMOGLOBIN 30.9 pg (25.0-35.0); MEAN CORPUSCULAR HGB CONC 31.8 g/dl (31.0-37.0); MEAN PLATELET VOLUME 11.4 fl (7.0-11.0); MONO # 0.4 (0.1-0.6); MONO % 8.1 % (1.0-6.0); RBC 3.17 10^6/uL (3.5-6.1); RED CELL DISTRIBUTION WIDTH 13.1 % (11.5-14.5); WHITE BLOOD COUNT 4.4 10^3/uL (4.5-11.0)
[2018-10-30 11:30] LABS: ALB/GLOB RATIO 1.3 (1.1-1.8); ALBUMIN 3.1 g/dL (3.0-4.8); ALT/SGPT 23 U/L (7-56); AST/SGOT 21 U/L (14-36); BLOOD UREA NITROGEN 24 mg/dL (7-21); CALCIUM 9.2 mg/dL (8.4-10.5); GFR NON-AFRICAN AMERICAN > 60
[2018-10-31] MEDS: Arformoterol 15 mcg/2 ml Inh Sol IH SCH (08:03)
[2018-10-31 08:21] VITALS: O2SAT 100
[2018-10-31 08:44] LABS: BASO # 0.03 K/mm3 (0.0-2.0); BASO % 0.9 % (0.0-3.0); EOS # 0.2 (0.0-0.7); EOS % 5.1 % (1.5-5.0); HEMOGLOBIN 9.5 g/dL (12.0-16.0); LYMPH # 1.1 (1.2-3.4); LYMPH % 31.7 % (22.0-35.0); MEAN CELL VOLUME 96.1 fl (80.0-105.0); MEAN CORPUSCULAR HEMOGLOBIN 30.8 pg (25.0-35.0); MEAN CORPUSCULAR HGB CONC 32.1 g/dl (31.0-37.0); MEAN PLATELET VOLUME 10.5 fl (7.0-11.0); MONO # 0.4 (0.1-0.6); MONO % 11.7 % (1.0-6.0); RBC 3.08 10^6/uL (3.5-6.1); RED CELL DISTRIBUTION WIDTH 13.2 % (11.5-14.5); WHITE BLOOD COUNT 3.3 10^3/uL (4.5-11.0)
[2018-10-31 09:01] LABS: ALB/GLOB RATIO 1.2 (1.1-1.8); ALT/SGPT 21 U/L (7-56); AST/SGOT 18 U/L (14-36); BLOOD UREA NITROGEN 22 mg/dL (7-21); CALCIUM 9.2 mg/dL (8.4-10.5); GFR NON-AFRICAN AMERICAN > 60
[2018-10-31] MEDS: POLYETHYLENE GLYCOL 3350 17 GM/Dose PACKET PO SCH ×2 (10:43→10:53)
[2018-10-31] MEDS: DEXLANSOPRAZOLE PO SCH ×2 (10:43→10:54)
[2018-10-31] MEDS: Enoxaparin 40 mg Syringe SC SCH (10:43)
[2018-10-31] MEDS: [UNRECOGNIZED DRUG - OTHER] PO SCH ×2 (10:43→10:54)
[2018-10-31] MEDS: Lidocaine 5% Patch TD SCH (10:43)
[2018-10-31] MEDS: Sildenafil 20 MG TAB PO SCH (10:44)
[2018-10-31] MEDS ORDERED: Oxycodone/Acetaminophen 5/325 mg Tab PO PRN ×2 (11:11→13:14)
[2018-10-31] MEDS ORDERED: Amoxicillin-Clav 875-125 mg Tab PO SCH (11:15)
[2018-10-31] MEDS: Amoxicillin-Clav 875-125 mg Tab PO SCH (11:35)
--- NOTE | 2018-10-31 16:21 | CP.PCM.DIS ---
Provider - Provider Date of Admission: 10/24/18 15:31 Attending physician: Karli Reed DO Primary care physician: Meme Consults: 10/23/18 21:58 Physician Consult Routine Comment: Consulting Provider: Harrison Blackburn Consulting Physician: Harrison Blackburn Reason for Consult: Request as per family, intractable back pain, hx compression fxs 10/25/18 14:07 Consult [Physician Consult] Routine Comment: Consulting Provider: Ben Hurtado Consulting Physician: Ben Hurtado Reason for Consult: pain management, spinal compression fx 10/26/18 09:57 TCU [Evaluation for TRCU] Routine Comment: Physician Instructions: Reason For Exam: strengthening Time Spent in preparation of Discharge (in minutes): 40 Hospital Course - Lab Results Lab Results: Micro Results 10/23/18 18:20 Blood Blood Culture - Final NO GROWTH AFTER 5 DAYS 10/23/18 18:20 Blood Gram Stain - Final TEST NOT PERFORMED 10/23/18 17:39 Blood Blood Culture - Final NO GROWTH AFTER 5 DAYS 10/23/18 17:39 Blood Gram Stain - Final TEST NOT PERFORMED 10/23/18 18:18 Urine Random Urine Culture - Final Escherichia Coli Most Recent Lab Values WBC 3.3 10^3/uL (4.5-11.0) L D 10/31/18 08:30 RBC 3.08 10^6/uL (3.5-6.1) L 10/31/18 08:30 Hgb 9.5 g/dL (12.0-16.0) L 10/31/18 08:30 Hct 29.6 % (36.0-48.0) L 10/31/18 08:30 MCV 96.1 fl (80.0-105.0) 10/31/18 08:30 MCH 30.8 pg (25.0-35.0) 10/31/18 08:30 MCHC 32.1 g/dl (31.0-37.0) 10/31/18 08:30 RDW 13.2 % (11.5-14.5) 10/31/18 08:30 Plt Count 115 10^3/uL (120.0-450.0) L 10/31/18 08:30 MPV 10.5 fl (7.0-11.0) 10/31/18 08:30 Neut % (Auto) 50.6 % (50.0-68.0) 10/31/18 08:30 Lymph % (Auto) 31.7 % (22.0-35.0) 10/31/18 08:30 [place] % (Auto) 11.7 % (1.0-6.0) H 10/31/18 08:30 Eos % (Auto) 5.1 % (1.5-5.0) H 10/31/18 08:30 Baso % (Auto) 0.9 % (0.0-3.0) 10/31/18 08:30 Lymph # (Auto) 1.1 (1.2-3.4) L 10/31/18 08:30 [place] # (Auto) 0.4 (0.1-0.6) 10/31/18 08:30 Eos # (Auto) 0.2 (0.0-0.7) 10/31/18 08:30 Baso # (Auto) 0.03 K/mm3 (0.0-2.0) 10/31/18 08:30 Absolute Neuts (auto) 1.69 (1.4-6.5) 10/31/18 08:30 PT 11.6 SECONDS (9.4-12.5) 10/26/18 12:50 INR 1.03 10/26/18 12:50 APTT 27.3 Seconds (26.9-38.3) 10/26/18 12:50 Sodium 135 mmol/L (132-148) 10/31/18 08:30 Potassium 4.1 mmol/L (3.6-5.0) 10/31/18 08:30 Chloride 101 mmol/L (98-107) 10/31/18 08:30 Carbon Dioxide 33 mmol/L (21-33) 10/31/18 08:30 Anion Gap 6 (10-20) L 10/31/18 08:30 BUN 22 mg/dL (7-21) H 10/31/18 08:30 Creatinine 0.6 mg/dl (0.7-1.2) L 10/31/18 08:30 Est GFR ( Amer) > 60 10/31/18 08:30 Est GFR (Non-Af Amer) > 60 10/31/18 08:30 Random Glucose 94 mg/dL (70-110) 10/31/18 08:30 Calcium 9.2 mg/dL (8.4-10.5) 10/31/18 08:30 Phosphorus 3.8 mg/dL (2.5-4.5) 10/29/18 08:40 Magnesium 2.2 mg/dL (1.7-2.2) 10/29/18 08:40 Total Bilirubin 0.3 mg/dL (0.2-1.3) 10/31/18 08:30 AST 18 U/L (14-36) 10/31/18 08:30 ALT 21 U/L (7-56) 10/31/18 08:30 Alkaline Phosphatase 100 U/L (38-126) 10/31/18 08:30 Lactate Dehydrogenase 221 U/L (333-699) L 10/23/18 17:39 Total Creatine Kinase < 20 U/L (35-230) L 10/23/18 17:39 Troponin I < 0.01 ng/mL 10/23/18 17:39 Total Protein 5.4 g/dL (5.8-8.3) L 10/31/18 08:30 Albumin 3.0 g/dL (3.0-4.8) 10/31/18 08:30 Globulin 2.4 gm/dL 10/31/18 08:30 Albumin/Globulin Ratio 1.2 (1.1-1.8) 10/31/18 08:30 Urine Color Yellow (YELLOW) 10/23/18 18:18 Urine Appearance Turbid (CLEAR) 10/23/18 18:18 Urine pH 6.0 (4.7-8.0) 10/23/18 18:18 Ur Specific [place] 1.025 (1.005-1.035) 10/23/18 18:18 Urine Protein Negative mg/dL (<30 mg/dL) 10/23/18 18:18 Urine Glucose (UA) Negative mg/dL (NEGATIVE) 10/23/18 18:18 Urine Ketones Negative mg/dL (NEGATIVE) 10/23/18 18:18 Urine Blood Trace-intact (NEGATIVE) H 10/23/18 18:18 Urine Nitrate Negative (NEGATIVE) 10/23/18 18:18 Urine Bilirubin Negative (NEGATIVE) 10/23/18 18:18 Urine Urobilinogen 1.0 E.U./dL (<1 E.U./dL) H 10/23/18 18:18 Ur Leukocyte Esterase Moderate Livan/uL (NEGATIVE) H 10/23/18 18:18 Urine RBC 0 - 2 /hpf (0-2) 10/23/18 18:18 Urine WBC Tntc /hpf (0-6) H 10/23/18 18:18 Ur Epithelial Cells 10 - 12 /hpf (0-5) H 10/23/18 18:18 Urine Bacteria Many /hpf (NONE) 10/23/18 18:18 - Hospital Course Hospital Course: Mark Kramer DO, PGY-1 Hospitalist Discharge Summary for Dr. 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 Patient was admitted for a similar episode of intractable back pain in 08/2018. At that time CTAP showed compression deformity of L1 vertebral body, evidence of prior kyphoplasty L1, compression deformities L2 and L5, profound osteopenia. Lumbar spine MRI showed multiple acute compression fractures, spinal stenosis. She had been following with Dr. Valentine and Dr. Hurtado for pain management. Hospitalization course: Patient received repeat Lumbar spine MRI which showed new marrow edema at T11 vertebral body with mild degree of compression. On last admission, patient was not agreeable to kyphoplasty but, after discussion with family, underwent kyphoplasty per Dr. Blackburn this admission. She is now s/p T10- T11 kyphoplasty POD 4. Patient has continued to require percocet 2, 5-325 mg tablets every four hours for pain. She has refused to take IV pain medication since admission. She also initially refused PT sessions but did have a few PT sessions toward the end of her stay. PT continues to recommend [facility] placement. When patient was informed that TCU rehab at [facility] did not accept her insurance, she refused to consider other [facility] facilities. After extensive discussion with family, patient is now agreeable to rehab at a different [facility] facility. Discharge plan was discussed in detail with family and patient. All questions were answered. Patient seen, examined, and discharge plan discussed with my attending Dr. Eulogio Kramer D.O. IM Resident PGY-1 Discharge Exam - Head Exam Head Exam: ATRAUMATIC, NORMOCEPHALIC - Eye Exam Eye Exam: EOMI, PERRL - ENT Exam ENT Exam: Mucous Membranes Moist - Neck Exam Neck exam: Normal Inspection, Tenderness - Respiratory Exam Respiratory Exam: Clear to PA & Lateral, UNREMARKABLE. absent: Rales, Rhonchi, Wheezes - Cardiovascular Exam Cardiovascular Exam: REGULAR RHYTHM, RRR, +S1, +S2. absent: Gallop, Rubs, Systolic Murmur - GI/Abdominal Exam GI & Abdominal Exam: Normal Bowel Sounds, Soft, Unremarkable. absent: Tendernes s - Extremities Exam Extremities exam: full ROM, pedal pulses present - Back Exam Back exam: paraspinal tenderness, vertebral tenderness (unable to move or sit up in bed without significant pain) - Neurological Exam Neurological exam: Alert, Oriented x3 - Psychiatric Exam Psychiatric exam: Anxious - Skin Skin Exam: Dry, Intact, Warm Discharge Plan - Discharge Medications Prescriptions: oxyCODONE/Acetaminophen [Percocet 5/325 mg Tab] 2 tab PO Q6 3 Days tab - Follow Up Plan Condition: FAIR Disposition: REHAB FACILITY/REHAB UNIT Instructions: Vertebroplasty and Kyphoplasty, Upper Back Pain (DC), Urinary Tract Infection in Women (DC) Additional Instructions: Please follow up with your primary care doctor, Dr. Valentine 3-5 days after discharge from subacute rehab Follow up with pain management , Dr. Hurtado, within 1 week after discharge from subacute rehab. Please continue your home medications. Please repeat blood work CBC, CMP, Urinalysis in 1-2 days. Return to nearest Emergency department for new or worsening symptoms Referrals: Neeraj Valentine MD [Staff Provider] - Ben Hurtado MD [Staff Provider] -
[2018-10-31 17:02] VITALS: BP 118/62; PULSE 73; RESP 19; TEMP 98.4
== END 2018-10-31 17:51 | DRG 478 ==
LOC: ED 16:20 → ERH 19:59 → 3RNO 21:29 → OBSVTOIN 10-24 15:31
PROVIDERS: ADMIT Internal Medicine; ATTEND Hospitalist
PROC: 0PB43ZX Excision of Thoracic Vertebra, Percutaneous Approach, Diagnostic (ICD-10-PCS; principal; 2018-10-27)
PROC: 0PS43ZZ Reposition Thoracic Vertebra, Percutaneous Approach (ICD-10-PCS; 2018-10-27)
PROC: 0PU43JZ Supplement Thoracic Vertebra with Synthetic Substitute, Percutaneous Approach (ICD-10-PCS; 2018-10-27)
DX: M80.88XA Other osteoporosis with current pathological fracture, vertebra(e), initial encounter for fracture (principal); N39.0 Urinary tract infection, site not specified; I13.0 Hypertensive heart and chronic kidney disease with heart failure and stage 1 through stage 4 chronic kidney disease, or unspecified chronic kidney disease; J96.10 Chronic respiratory failure, unspecified whether with hypoxia or hypercapnia; I50.9 Heart failure, unspecified; J44.9 Chronic obstructive pulmonary disease, unspecified; K57.30 Diverticulosis of large intestine without perforation or abscess without bleeding; K43.9 Ventral hernia without obstruction or gangrene; M48.061 Spinal stenosis, lumbar region without neurogenic claudication; I27.20 Pulmonary hypertension, unspecified; I25.10 Atherosclerotic heart disease of native coronary artery without angina pectoris; D63.8 Anemia in other chronic diseases classified elsewhere; E87.5 Hyperkalemia; E11.22 Type 2 diabetes mellitus with diabetic chronic kidney disease; D50.9 Iron deficiency anemia, unspecified; K59.03 Drug induced constipation; T40.2X5A Adverse effect of other opioids, initial encounter; F41.0 Panic disorder [episodic paroxysmal anxiety]; B96.20 Unspecified Escherichia coli [E. coli] as the cause of diseases classified elsewhere; E78.5 Hyperlipidemia, unspecified; K42.9 Umbilical hernia without obstruction or gangrene; N18.9 Chronic kidney disease, unspecified; Z87.891 Personal history of nicotine dependence; Z99.81 Dependence on supplemental oxygen; Z88.5 Allergy status to narcotic agent; Z79.52 Long term (current) use of systemic steroids; Z79.82 Long term (current) use of aspirin